=== PATIENT | female | born 1940 | race Caucasian/White ===

== ENCOUNTER → 2025-05-02 | Outpatient (REF) | payer MEDICARE, SELFPAY ==
[2025-05-02 08:34] LABS: Hematocrit 28.5 % (37-47); Hemoglobin 9.5 g/dL (12.0-15.0); Mean Corp Hgb Conc 33.3 g/dL (32-36); Mean Corpuscular Volume 100.7 fL (81-99); Mean Platelet Vol. 9.1 fl (6.2-12.0); Platelet Count 344 K/mm3 (150-450); RBC Distribution Width CV 16.5 % (11.6-14.6); RBC Distribution Width SD 58.8 fl (35.1-43.9); Red Blood Count 2.83 M/mm3 (4.2-5.4); White Blood Count 7.5 K/mm3 (4.4-11.0)
[2025-05-02 08:50] LABS: Anion Gap 13 (5-15); BUN 16 mg/dL (4-19); BUN/Creat Ratio 38.6 RATIO (10-20); Calcium,Total 9.6 mg/dL (7.6-11.0); Carbon Dioxide 20.1 mmol/L (21.0-32.0); Chloride 97 mmol/L (98-108); Glucose 89 mg/dL (70-99); Potassium 3.6 mmol/L (3.3-5.1)
== END ==
LOC: OLS.SANC 06:15
DX: I10 Essential (primary) hypertension (principal); E78.5 Hyperlipidemia, unspecified
CPT/HCPCS: 36415; 80048; 85027

== ENCOUNTER → 2025-05-05 | Outpatient (REF) | payer MEDICARE, SELFPAY ==
--- OUTSIDE RECORDS SUMMARY | 2025-05-05 04:18 | XMS RPT_ITS | CCD ---
Author Organization [place] [facility] Care Team Providers Care Digital Media Manager Name Role Phone Anni BRANHAM Piyushyonatan Attending Unavail able Results Test Name Value Interpretation Reference Range Facil ity Basic Metabolic Profile (BMP )on 05-02-2025 BUN/CRE 38.6 RATIO High 10-20 [facility] Comment on above: Performed By: #### L 500.2500, L100.0500 #### [facility] [address] [place], [address] Calcium [Mass/Vol] 9.6 mg/dL Normal 7.6-11.0 [facility] Comment on above: Performed By: #### L 500.2500, L100.0500 #### [facility] [address] [place], [address] Chloride [Moles/Vol] 97 mmol/L Low 98-108 [facility] Comment on above: Performed By: #### L 500.2500, L100.0500 #### [facility] [address] [place], [address] CO2 [Moles/Vol] 20.1 mmol/L Low 21.0-32.0 [facility] Comment on above: Performed By: #### L 500.2500, L100.0500 #### [facility] [address] [place], [address] Creatinine [Mass/Vol] 0.40 mg/dL Low 0.70-1.20 [facility] Comment on above: Performed By: #### L 500.2500, L100.0500 #### [facility] [address] [place], [address] GAP 13 Normal 5-15 [facility] Comment on above: Performed By: #### L 500.2500, L100.0500 #### [facility] [address] [place], [address] GFR/1.73 sq M.predicted among non-blacks MDRD (S/P/Bld) [Vol rate/Area] 98 mL/min/{1.73_m2} Normal >60 [facility] Comment on above: Result Comment: mL/m in/1.73m2 CKD-EPI Creatinine Equation (2020) Performed By: #### L 500.2500, L100.0500 #### [facility] [address] [place], [address] Glucose [Mass/Vol] 89 mg/dL Normal 70-99 [facility] Comment on above: Performed By: #### L 500.2500, L100.0500 #### [facility] [address] [place], [address] Potassium [Moles/Vol] 3.6 mmol/L Normal 3.3-5.1 [facility] Comment on above: Result Comment: Hemo lysis present, Results??could be affected. ?? Performed By: #### L 500.2500, L100.0500 #### [facility] [address] [place], [address] Sodium [Moles/Vol] 130 mmol/L Low 133-145 [facility] Comment on above: Performed By: #### L 500.2500, L100.0500 #### [facility] [address] [place], [address] Urea nitrogen [Mass/Vol] 16 mg/dL Normal 4-19 [facility] Comment on above: Performed By: #### L 500.2500, L100.0500 #### [facility] [address] [place], [address] CBC-Complete Blood Cnt No Di ffon 05-02-2025 Erythrocyte distribution width (RBC) [Ratio] 16.5 % High 11.6-14.6 [facility] Comment on above: Performed By: #### L 500.2500, L100.0500 #### [facility] [address] [place], [address] Hematocrit (Bld) [Volume fraction] 28.5 % Low 37-47 [facility] Comment on above: Performed By: #### L 500.2500, L100.0500 #### [facility] [address] [place], [address] Hemoglobin (Bld) [Mass/Vol] 9.5 g/dL Low 12.0-15.0 [facility] Comment on above: Performed By: #### L 500.2500, L100.0500 #### [facility] [address] [place], [address] MCH (RBC) [Entitic mass] 33.6 pg High 27.0-32.0 [facility] Comment on above: Performed By: #### L 500.2500, L100.0500 #### [facility] [address] [place], [address] MCHC (RBC) [Mass/Vol] 33.3 g/dL Normal 32-36 [facility] Comment on above: Performed By: #### L 500.2500, L100.0500 #### [facility] [address] [place], [address] MCV (RBC) [Entitic vol] 100.7 fL High 81-99 [facility] Comment on above: Performed By: #### L 500.2500, L100.0500 #### [facility] [address] [place], [address] Platelet mean volume (Bld) [Entitic vol] 9.1 fL Normal 6.2-12.0 [facility] Comment on above: Performed By: #### L 500.2500, L100.0500 #### [facility] [address] [place], [address] Platelets (Bld) [#/Vol] 344 10*3/uL Normal 150-450 [facility] Comment on above: Performed By: #### L 500.2500, L100.0500 #### [facility] [address] [place], [address] RBC (Bld) [#/Vol] 2.83 10*6/uL Low 4.2-5.4 [facility] Comment on above: Performed By: #### L 500.2500, L100.0500 #### [facility] [address] [place], [address] RDW SD 58.8 fl High 35.1-43.9 [facility] Comment on above: Performed By: #### L 500.2500, L100.0500 #### [facility] [address] [place], [address] WBC (Bld) [#/Vol] 7.5 10*3/uL Normal 4.4-11.0 [facility] Comment on above: Performed By: #### L 500.2500, L100.0500 #### [facility] [address] [place], [address] Encounters Encounter Date Encounter Type Care Provider Facility Start: 05-02-2025 [facility] Facility:[facility] Payers Date Payer Category Payer Self-pay Summary Purpose Family History No Family History Records Found Advance Directives No Advanced Directives Records Found Additional Source Comments INFORMATION SOURCE (unrecogn ized section and content) DATE CREATED AUTHOR 05/03/[address] [facility] FOR RECORDS PERTAINING TO PATIENTS WHO ARE OR HAVE BEEN ENROLLED IN A CHEMICAL DEPENDENCY/SUBSTANCEABUSE PROGRAM, SOME INFORMATION MAY BE OMITTED. This clinical summary was aggregated from multiple sources. Caution should be exercised in using it in the provision of clinical care. This summary normalizes information from multiple sources, and as a consequence, information in this document may materially change the coding, format and clinical context of patient data. In addition, data may be omitted in some cases. CLINICAL DECISIONS SHOULD BE BASED ON THE PRIMARY CLINICAL RECORDS. [facility] [employer] [facility]. provides no warranty or guarantee of the accuracy or completeness of information in this document.
--- OUTSIDE RECORDS SUMMARY | 2025-05-05 04:18 | XMS RPT_ITS | CCD ---
Author Organization [place] [facility] [facility] Care Team Providers Care Mobile Practice Lead Name Role Phone Anni BRANHAM Piyushyonatan Attending Unavail able Results Test Name Value Interpretation Reference Range Facil ity Basic Metabolic Profile (BMP )on 05-02-2025 BUN/CRE 38.6 RATIO High 10-20 [facility] Comment on above: Performed By: #### L 500.2500, L100.0500 #### [facility] [address] [place], [address] Calcium [Mass/Vol] 9.6 mg/dL Normal 7.6-11.0 [facility] Comment on above: Performed By: #### L 500.2500, L100.0500 #### [facility] [address] [place], [address] Chloride [Moles/Vol] 97 mmol/L Low 98-108 [facility] Comment on above: Performed By: #### L 500.2500, L100.0500 #### [facility] [address] [place], [address] CO2 [Moles/Vol] 20.1 mmol/L Low 21.0-32.0 [facility] Comment on above: Performed By: #### L 500.2500, L100.0500 #### [facility] [address] [place], [address] Creatinine [Mass/Vol] 0.40 mg/dL Low 0.70-1.20 [facility] Comment on above: Performed By: #### L 500.2500, L100.0500 #### [facility] [address] [place], [address] GAP 13 Normal 5-15 [facility] Comment on above: Performed By: #### L 500.2500, L100.0500 #### [facility] [address] [place], [address] GFR/1.73 sq M.predicted among non-blacks MDRD (S/P/Bld) [Vol rate/Area] 98 mL/min/{1.73_m2} Normal >60 [facility] Comment on above: Result Comment: mL/m in/1.73m2 CKD-EPI Creatinine Equation (2020) Performed By: #### L 500.2500, L100.0500 #### [facility] [address] [place], [address] Glucose [Mass/Vol] 89 mg/dL Normal 70-99 [facility] Comment on above: Performed By: #### L 500.2500, L100.0500 #### [facility] [address] [place], [address] Potassium [Moles/Vol] 3.6 mmol/L Normal 3.3-5.1 [facility] Comment on above: Result Comment: Hemo lysis present, Results??could be affected. ?? Performed By: #### L 500.2500, L100.0500 #### [facility] [address] [place], [address] Sodium [Moles/Vol] 130 mmol/L Low 133-145 [facility] Comment on above: Performed By: #### L 500.2500, L100.0500 #### [facility] [address] [place], [address] Urea nitrogen [Mass/Vol] 16 mg/dL Normal 4-19 [facility] Comment on above: Performed By: #### L 500.2500, L100.0500 #### [facility] [address] [place], [address] CBC-Complete Blood Cnt No Di ffon 05-02-2025 Erythrocyte distribution width (RBC) [Ratio] 16.5 % High 11.6-14.6 [facility] Comment on above: Performed By: #### L 500.2500, L100.0500 #### [facility] [address] [place], [address] Hematocrit (Bld) [Volume fraction] 28.5 % Low 37-47 [facility] Comment on above: Performed By: #### L 500.2500, L100.0500 #### [facility] [address] [place], [address] Hemoglobin (Bld) [Mass/Vol] 9.5 g/dL Low 12.0-15.0 [facility] Comment on above: Performed By: #### L 500.2500, L100.0500 #### [facility] [address] [place], [address] MCH (RBC) [Entitic mass] 33.6 pg High 27.0-32.0 [facility] Comment on above: Performed By: #### L 500.2500, L100.0500 #### [facility] [address] [place], [address] MCHC (RBC) [Mass/Vol] 33.3 g/dL Normal 32-36 [facility] Comment on above: Performed By: #### L 500.2500, L100.0500 #### [facility] [address] [place], [address] MCV (RBC) [Entitic vol] 100.7 fL High 81-99 [facility] Comment on above: Performed By: #### L 500.2500, L100.0500 #### [facility] [address] [place], [address] Platelet mean volume (Bld) [Entitic vol] 9.1 fL Normal 6.2-12.0 [facility] Comment on above: Performed By: #### L 500.2500, L100.0500 #### [facility] [address] [place], [address] Platelets (Bld) [#/Vol] 344 10*3/uL Normal 150-450 [facility] Comment on above: Performed By: #### L 500.2500, L100.0500 #### [facility] [address] [place], [address] RBC (Bld) [#/Vol] 2.83 10*6/uL Low 4.2-5.4 [facility] Comment on above: Performed By: #### L 500.2500, L100.0500 #### [facility] [address] [place], [address] RDW SD 58.8 fl High 35.1-43.9 [facility] Comment on above: Performed By: #### L 500.2500, L100.0500 #### [facility] [address] [place], [address] WBC (Bld) [#/Vol] 7.5 10*3/uL Normal 4.4-11.0 [facility] Comment on above: Performed By: #### L 500.2500, L100.0500 #### [facility] [address] [place], [address] Encounters Encounter Date Encounter Type Care Provider Facility Start: 05-02-2025 [facility] Facility:[facility] Payers Date Payer Category Payer Self-pay Summary Purpose Family History No Family History Records Found Advance Directives No Advanced Directives Records Found Additional Source Comments INFORMATION SOURCE (unrecogn ized section and content) DATE CREATED AUTHOR 05/03/2025 [facility] FOR RECORDS PERTAINING TO PATIENTS WHO [...] BE BASED ON THE PRIMARY CLINICAL RECORDS. [facility] [facility] provides no warranty or guarantee of the accuracy or completeness of information in this document.
[2025-05-05 09:46] LABS: Pro- Brain NATRIURETIC PEPTIDE 1791 pg/mL (<=1800)
== END ==
LOC: OLS.SANC 04:00
DX: I10 Essential (primary) hypertension (principal); E78.5 Hyperlipidemia, unspecified; Z79.899 Other long term (current) drug therapy
CPT/HCPCS: 36415; 80185; 83880

== ENCOUNTER → 2025-05-09 | Outpatient (REF) | payer MEDICARE, SELFPAY ==
--- OUTSIDE RECORDS SUMMARY | 2025-05-09 04:29 | XMS RPT_ITS | CCD ---
Author Organization [facility] Care Team Providers Care Billiard Table Repairer Name Role Phone Enedina Choi Attending Unavail able Enedina Choi Attending Unavail able Results Test Name Value Interpretation Reference Range Facil ity Phenytoin (Dilantin) Levelon 05-05-2025 Phenytoin [Mass/Vol] 25.6 ug/mL High 10.0-20.0 [facility] Comment on above: Order Comment: 203.1 0000 Result Comment: Toxi c signs are seldom seen below 15 ug/mL, while nystagmus often appears when serum levels rise above 20 ug/mL. Ataxia is observed most often when serum levels reach 25 to 30 ug/mL and somnolence and dysarthria above 40 ug/mL. At high doses, phenytoin can even cause an increase in the frequency of seizures. Performed By: #### L 503.7505, L501.7700 #### [facility] [address] [place], [place], [id number] Pro- Brain NATRIURETIC PEPTI Chan 05-05-2025 Natriuretic peptide B (Bld) [Mass/Vol] 1791 pg/mL Normal <=1800 [facility] Comment on above: Order Comment: 203.1 Result Comment: Hear t Failure Unlikely: < 300 pg/mL Heart Failure Likely < 50 Years: > 450 pg/mL 50-75 Years: > 900 pg/mL >75 Years: > 1800 pg/mL Performed By: #### L 503.7505, L501.7700 #### [facility] [address] [place], [place], [id number] Basic Metabolic Profile (BMP )on 05-02-2025 BUN/CRE 38.6 RATIO High 10-20 [facility] Comment on above: Performed By: #### L 500.2500, L100.0500 #### [facility] [address] [place], [address] Calcium [Mass/Vol] 9.6 mg/dL Normal 7.6-11.0 [facility] Comment on above: Performed By: #### L 500.2500, L100.0500 #### [facility] [address] [place], [address] Chloride [Moles/Vol] 97 mmol/L Low 98-108 [facility] Comment on above: Performed By: #### L 500.2500, L100.0500 #### [facility] [address] [place], [address] CO2 [Moles/Vol] 20.1 mmol/L Low 21.0-32.0 [facility] Comment on above: Performed By: #### L 500.2500, L100.0500 #### [facility] [address] [place], [address] Creatinine [Mass/Vol] 0.40 mg/dL Low 0.70-1.20 [facility] Comment on above: Performed By: #### L 500.2500, L100.0500 #### [facility] [address] [place], [address] GAP 13 Normal 5-15 [facility] Comment on above: Performed By: #### L 500.2500, L100.0500 #### [facility] [address] [place], [address] GFR/1.73 sq M.predicted among non-blacks MDRD (S/P/Bld) [Vol rate/Area] 98 mL/min/{1.73_m2} Normal >60 [facility] Comment on above: Result Comment: mL/m in/1.73m2 CKD-EPI Creatinine Equation (2020) Performed By: #### L 500.2500, L100.0500 #### [facility] [address] [place], [address] Glucose [Mass/Vol] 89 mg/dL Normal 70-99 [facility] Comment on above: Performed By: #### L 500.2500, L100.0500 #### [facility] [address] [place], [address] Potassium [Moles/Vol] 3.6 mmol/L Normal 3.3-5.1 [facility] Comment on above: Result Comment: Hemo lysis present, Results??could be affected. ?? Performed By: #### L 500.2500, L100.0500 #### [facility] [address] [place], [address] Sodium [Moles/Vol] 130 mmol/L Low 133-145 [facility] Comment on above: Performed By: #### L 500.2500, L100.0500 #### [facility] [address] [place], [address] Urea nitrogen [Mass/Vol] 16 mg/dL Normal 4-19 [facility] Comment on above: Performed By: #### L 500.2500, L100.0500 #### [facility] [address] [place], [address] CBC-Complete Blood Cnt No Di ffon 05-02-2025 Erythrocyte distribution width (RBC) [Ratio] 16.5 % High 11.6-14.6 [facility] Comment on above: Performed By: #### L 500.2500, L100.0500 #### [facility] [address] [place], [address] Hematocrit (Bld) [Volume fraction] 28.5 % Low 37-47 [facility] Comment on above: Performed By: #### L 500.2500, L100.0500 #### [facility] [address] [place], [address] Hemoglobin (Bld) [Mass/Vol] 9.5 g/dL Low 12.0-15.0 [facility] Comment on above: Performed By: #### L 500.2500, L100.0500 #### [facility] [address] [place], [address] MCH (RBC) [Entitic mass] 33.6 pg High 27.0-32.0 [facility] Comment on above: Performed By: #### L 500.2500, L100.0500 #### [facility] [address] [place], [address] MCHC (RBC) [Mass/Vol] 33.3 g/dL Normal 32-36 [facility] Comment on above: Performed By: #### L 500.2500, L100.0500 #### [facility] [address] [place], [address] MCV (RBC) [Entitic vol] 100.7 fL High 81-99 [facility] Comment on above: Performed By: #### L 500.2500, L100.0500 #### [facility] [address] [place], [address] Platelet mean volume (Bld) [Entitic vol] 9.1 fL Normal 6.2-12.0 [facility] Comment on above: Performed By: #### L 500.2500, L100.0500 #### [facility] [address] [place], [address] Platelets (Bld) [#/Vol] 344 10*3/uL Normal 150-450 [facility] Comment on above: Performed By: #### L 500.2500, L100.0500 #### [facility] [address] [place], [address] RBC (Bld) [#/Vol] 2.83 10*6/uL Low 4.2-5.4 [facility] Comment on above: Performed By: #### L 500.2500, L100.0500 #### [facility] [address] [place], [address] RDW SD 58.8 fl High 35.1-43.9 [facility] Comment on above: Performed By: #### L 500.2500, L100.0500 #### [facility] [address] [place], [address] WBC (Bld) [#/Vol] 7.5 10*3/uL Normal 4.4-11.0 [facility] Comment on above: Performed By: #### L 500.2500, L100.0500 #### [facility] [address] [place], [address] Encounters Encounter Date Encounter Type Care Provider Facility Start: 05-05-2025 [facility] Facility:[facility] Start: 05-02-2025 [facility] Facility:[facility] Payers Date Payer Category Payer Self-pay Summary Purpose Family History No Family History Records Found Advance Directives No Advanced Directives Records Found Additional Source Comments INFORMATION SOURCE (unrecogn ized section and content) DATE CREATED AUTHOR 05/05/2025 [facility] FOR RECORDS PERTAINING TO PATIENTS WHO ARE [...] BE BASED ON THE PRIMARY CLINICAL RECORDS. [employer] provides no warranty or guarantee of the accuracy or completeness of information in this document.
--- OUTSIDE RECORDS SUMMARY | 2025-05-09 04:29 | XMS RPT_ITS | CCD ---
Author Organization [facility] Care Team Providers Care Sales Financial Analyst Name Role Phone Enedina Choi Attending Unavail able Enedina Choi Attending Unavail able Results Test Name Value Interpretation Reference Range Facil ity Phenytoin (Dilantin) Levelon 05-05-2025 Phenytoin [Mass/Vol] 25.6 ug/mL High 10.0-20.0 [facility] Comment on above: Order Comment: 203.1 0000 [...] Performed By: #### L 503.7505, L501.7700 #### [facility] [address] [place], [place], [id number] Pro- Brain NATRIURETIC PEPTI Chan 05-05-2025 Natriuretic peptide B (Bld) [Mass/Vol] 1791 pg/mL Normal <=1800 [facility] Comment on above: Order Comment: 203.1 Result Comment: Hear t Failure Unlikely: < 300 pg/mL Heart Failure Likely < 50 Years: > 450 pg/mL 50-75 Years: > 900 pg/mL >75 Years: > 1800 pg/mL Performed By: #### L 503.7505, L501.7700 #### [facility] [address] [place], [place], [id number] Basic Metabolic Profile (BMP )on 05-02-2025 BUN/CRE 38.6 RATIO High 10-20 [facility] Comment on above: Performed By: #### L 500.2500, L100.0500 #### [facility] [address] [place], [address] Calcium [Mass/Vol] 9.6 mg/dL Normal 7.6-11.0 [facility] Comment on above: Performed By: #### L 500.2500, L100.0500 #### [facility] [address] [place], [address] Chloride [Moles/Vol] 97 mmol/L Low 98-108 [facility] Comment on above: Performed By: #### L 500.2500, L100.0500 #### [facility] [address] [place], [address] CO2 [Moles/Vol] 20.1 mmol/L Low 21.0-32.0 [facility] Comment on above: Performed By: #### L 500.2500, L100.0500 #### [facility] [address] [place], [address] Creatinine [Mass/Vol] 0.40 mg/dL Low 0.70-1.20 [facility] Comment on above: Performed By: #### L 500.2500, L100.0500 #### [facility] [address] [place], [address] GAP 13 Normal 5-15 [facility] Comment on above: Performed By: #### L 500.2500, L100.0500 #### [facility] [address] [place], [address] GFR/1.73 sq M.predicted among non-blacks MDRD (S/P/Bld) [Vol rate/Area] 98 mL/min/{1.73_m2} Normal >60 [facility] Comment on above: Result Comment: mL/m in/1.73m2 CKD-EPI Creatinine Equation (2020) Performed By: #### L 500.2500, L100.0500 #### [facility] [address] [place], [address] Glucose [Mass/Vol] 89 mg/dL Normal 70-99 [facility] Comment on above: Performed By: #### L 500.2500, L100.0500 #### [facility] [address] [place], [address] Potassium [Moles/Vol] 3.6 mmol/L Normal 3.3-5.1 [facility] Comment on above: Result Comment: Hemo lysis present, Results??could be affected. ?? Performed By: #### L 500.2500, L100.0500 #### [facility] [address] [place], [address] Sodium [Moles/Vol] 130 mmol/L Low 133-145 [facility] Comment on above: Performed By: #### L 500.2500, L100.0500 #### [facility] [address] [place], [address] Urea nitrogen [Mass/Vol] 16 mg/dL Normal 4-19 [facility] Comment on above: Performed By: #### L 500.2500, L100.0500 #### [facility] [address] [place], [address] CBC-Complete Blood Cnt No Di ffon 05-02-2025 Erythrocyte distribution width (RBC) [Ratio] 16.5 % High 11.6-14.6 [facility] Comment on above: Performed By: #### L 500.2500, L100.0500 #### [facility] [address] [place], [address] Hematocrit (Bld) [Volume fraction] 28.5 % Low 37-47 [facility] Comment on above: Performed By: #### L 500.2500, L100.0500 #### [facility] [address] [place], [address] Hemoglobin (Bld) [Mass/Vol] 9.5 g/dL Low 12.0-15.0 [facility] Comment on above: Performed By: #### L 500.2500, L100.0500 #### [facility] [address] [place], [address] MCH (RBC) [Entitic mass] 33.6 pg High 27.0-32.0 [facility] Comment on above: Performed By: #### L 500.2500, L100.0500 #### [facility] [address] [place], [address] MCHC (RBC) [Mass/Vol] 33.3 g/dL Normal 32-36 [facility] Comment on above: Performed By: #### L 500.2500, L100.0500 #### [facility] [address] [place], [address] MCV (RBC) [Entitic vol] 100.7 fL High 81-99 [facility] Comment on above: Performed By: #### L 500.2500, L100.0500 #### [facility] [address] [place], [address] Platelet mean volume (Bld) [Entitic vol] 9.1 fL Normal 6.2-12.0 [facility] Comment on above: Performed By: #### L 500.2500, L100.0500 #### [facility] [address] [place], [address] Platelets (Bld) [#/Vol] 344 10*3/uL Normal 150-450 [facility] Comment on above: Performed By: #### L 500.2500, L100.0500 #### [facility] [address] [place], [address] RBC (Bld) [#/Vol] 2.83 10*6/uL Low 4.2-5.4 [facility] Comment on above: Performed By: #### L 500.2500, L100.0500 #### [facility] [address] [place], [address] RDW SD 58.8 fl High 35.1-43.9 [facility] Comment on above: Performed By: #### L 500.2500, L100.0500 #### [facility] [address] [place], [address] WBC (Bld) [#/Vol] 7.5 10*3/uL Normal 4.4-11.0 [facility] Comment on above: Performed By: #### L 500.2500, L100.0500 #### [facility] [address] [place], [address] Encounters Encounter Date Encounter Type Care Provider Facility Start: 05-05-2025 [facility] Start: 05-02-2025 [facility] Payers Date Payer Category Payer Self-pay Summary Purpose Family History No Family History Records Found Advance Directives No Advanced Directives Records Found Additional Source Comments INFORMATION SOURCE (unrecogn ized section and content) DATE CREATED AUTHOR 05/05/2025 [facility] FOR RECORDS PERTAINING TO PATIENTS WHO ARE [...] BE BASED ON THE PRIMARY CLINICAL RECORDS. [employer] provides no warranty or guarantee of the accuracy or completeness of information in this document.
[2025-05-09 07:50] LABS: Hematocrit 33.7 % (37-47); Hemoglobin 11.3 g/dL (12.0-15.0); Immature Granulocytes Count 0.030 X10^3/uL (0.0-0.0); Mean Corp Hgb Conc 33.5 g/dL (32-36); Mean Corpuscular Volume 104.7 fL (81-99); Mean Platelet Vol. 9.3 fl (6.2-12.0); NRBC Flagged by Analyzer 0 % (0-5); POSITIVE MORPHOLOGY YES; Platelet Count 222 K/mm3 (150-450); RBC Distribution Width CV 18.4 % (11.6-14.6); RBC Distribution Width SD 69.2 fl (35.1-43.9); Red Blood Count 3.22 M/mm3 (4.2-5.4); White Blood Count 5.6 K/mm3 (4.4-11.0)
[2025-05-09 07:56] LABS: Differential Indicated SCAN CRITERIA MET
[2025-05-09 08:20] LABS: Anisocytosis 1+
[2025-05-09 08:33] LABS: Anion Gap 10 (5-15); BUN 11 mg/dL (4-19); BUN/Creat Ratio 28.0 RATIO (10-20); Calcium,Total 9.6 mg/dL (7.6-11.0); Carbon Dioxide 25.9 mmol/L (21.0-32.0); Chloride 98 mmol/L (98-108); Glucose 102 mg/dL (70-99); Potassium 3.7 mmol/L (3.3-5.1)
== END ==
LOC: OLS.SANC 05:00
PROVIDERS: Visit Provider Internal Medicine
DX: I10 Essential (primary) hypertension (principal); E78.5 Hyperlipidemia, unspecified
CPT/HCPCS: 36415; 80048; 85025

== ENCOUNTER → 2025-05-19 | Outpatient (REF) | payer MEDICARE, SELFPAY ==
--- OUTSIDE RECORDS SUMMARY | 2025-05-19 04:25 | XMS RPT_ITS | CCD ---
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 Chemist Name Role Phone Destiny Jean Baptiste Primary Care Provider [phone] Christian Harrison Primary Care Provider Christy NEWSPAPER OR PERIODICAL EDITOR, Christian Elliott Primary Care Provider [phone] Christy NEWSPAPER OR PERIODICAL EDITOR, Christian Elliott Primary Care Provider Enedina Choi Attending Unavail able Blancaa Enedina BRANHAM Referring Unavail able Enedina Choi Attending Unavail able nAni BRANHAM, Enedina Primary Care Unavail able Sebas Guerra Attending Unavailable JANNETH CENTENO Consulting Unavailable CHRISTY, CHRISTIAN Primary Care Unavailable CHAZ SMYTH Attending Unavailable MILLER LEE Admitting Unavailable BRENDON SOMMERS Consulting Unavailable DESTINY VELASQUEZ Consulting Unavailable ULMA GASTELUM Consulting Unavailable CHRISTY, CHRISTIAN Primary Care Unavailable NGUYỄN CAAL Attending Unavailable CHRISTY, CHRISTIAN Primary Care Unavailable HERON GLOVER Attending Unavailable NEMO BUNN Admitting Unavailable CHRISTY, CHRISTIAN Primary Care Unavailable BRENDON SOMMERS Attending Unavailable NGUYỄN CAAL Referring Unavailable CHRIS MOLINA Attending Unavailable CHRISTY, CHRISTIAN Primary Care Unavailable BRENDON SOMMERS Referring Unavailable CHRISTY, CHRISTIAN Primary Care Unavailable BRENDON SOMMERS Attending Unavailable BRENDON SOMMERS Referring Unavailable CHRISTY, CHRISTIAN Primary Care Unavailable BRENDON SOMMERS Attending Unavailable BRENDON SOMMERS Referring Unavailable CHRISTY, CHRISTIAN Primary Care Unavailable BRENDON SOMMERS Attending Unavailable BRENDON SOMMERS Referring Unavailable CHRISTY, CHRISTIAN Primary Care Unavailable BRENDON SOMMERS Attending Unavailable BRENDON SOMMERS Referring Unavailable CHRISTY, CHRISTIAN Primary Care Unavailable BRENDON SOMMERS Attending Unavailable CAMILO PUGA Referring Unavailable CHRISTY, CHRISTIAN Primary Care Unavailable CHRIS MOLINA Referring Unavailable CHRISTY, CHRISTIAN Primary [facility] Unavailable KRUPA CID Referring Unavailable KRUPA CID Attending Unavailable CHRISTIAN HARRISON Primary Care Unavailable BRENDON SOMMERS Referring Unavailable CHRISTIAN HARRISON Primary Care Unavailable BRENDON SOMMERS Attending Unavailable Allergies Allergy Classification Reported Allergen(s) Allergy Type Date of Onset Reaction(s) Facility Bee/Wasp/Ant Venom (1 source) bee venom Substance Allergy 8 Anaphylaxis [facility] Lidocaine (1 source) Lidocaine Drug Allergy 8 Shortness of breath [facility] Penicillins (antibiotic) (1 source) Penicillins Drug Allergy 8 Nausea Only [facility] Sulfonamides (antibiotic) (1 source) Sulfonamides (Antibiotic) Drug Allergy 8 Nausea Only [facility] (20 sources) bee venom Propensity to adverse reactions 8 Anaphylaxis [facility] (20 sources) Lidocaine Drug Allergy 8 Shortness of breath [facility] (20 sources) Penicillins Drug Intolerance 8 Nausea Only [facility] (20 sources) Sulfonamides (Antibiotic) Drug Intolerance 8 Nausea Only [facility] (14 sources) Penicillin G Drug Allergy 5 Rash [facility] (14 sources) Simvastatin Allergy to substance 5 Rash [facility] (14 sources) varenicline Drug Allergy 5 Nausea And Vomiting [facility] Medications Current Medications Medication Drug Class(es) Dates Sig (Normalized) Sig (Original) alendronic acid 70 mg oral tablet (3 sources) Bisphosphonate Start: 11-06-2024 alendronate (Fosamax) 70 MG tablet Take 1 tablet by mouth every 7 days. 11/06/2024 Active 0.4 ml enoxaparin sodium 100 mg/ml prefilled syringe (15 sources) Low Molecular Weight Heparin Start: 05-17-2025 inject 0.4 mL by subcutaneous injection every twenty-four hours enoxaparin (Lovenox) 40 MG/0.4ML solution prefilled syringe Indications: Prophylaxis of Venous Thromboembolism Inject 0.4 mL (40 mg) under the skin every 24 hours. 05/17/2025 Active Start: 05-17-2025 inject 0.4 mL by sub cutaneous injection every twenty-four hours enoxaparin (Lovenox) 40 MG/0.4ML solution prefilled syringe Indications: Prophylaxis of Venous Thromboembolism Inject 0.4 mL (40 mg) under the skin every 24 hours. 05/17/2025 Active Start: 05-10-2025 End: 2025 inject 40 mg by subcutaneous injection every twenty-four hours 40 mg, SubCUTAneous, Every 24 hours scheduled (Daily), First dose on 05/10/25 at 1910, Indication of Use: Prophylaxis-DVT/PE, Indications: Prophylaxis of Venous Thromboembolism Start: 04-28-2025 End: 05-28-2025 inject 0.3 mL by subcutaneous injection every twelve hours enoxaparin (Lovenox) 30 MG/0.3ML solution prefilled syringe Indications: Prophylaxis of Venous Thromboembolism Inject 0.3 mL (30 mg) under the skin every 12 hours. 04/28/2025 05/10/2025 Discontinued (Therapy completed) Start: 04-23-2025 End: 04-30-2025 inject 30 mg by subcutaneous injection every twelve hours 30 mg, SubCUTAneous, Every 12 hours, First dose on Mon04/23/25 at 1045, Indication of Use: Prophylaxis-DVT/PE, Indications: Prophylaxis of Venous Thromboembolism ergocalciferol 1.25 mg oral capsule (12 sources) Provitamin D2 Compound Start: 05-04-2025 take 1 capsule by mouth every week ergocalciferol (Vitamin D2) 1.25 MG (48114 UT) capsule Take 1 capsule (1.25 mg) by mouth 1 (one) time per week. 05/04/2025 Active Start: 05-04-2025 take 1 capsule by mo uth every week ergocalciferol (Vitamin D2) 1.25 MG (47163 UT) capsule Take 1 capsule (1.25 mg) by mouth 1 (one) time per week. 05/04/2025 Active Start: 05-04-2025 take 1 capsule by mo uth every week ergocalciferol (Vitamin D2) 1.25 MG (55921 UT) capsule Take 1 capsule (1.25 mg) by mouth 1 (one) time per week. 05/04/2025 Active Start: 05-04-2025 take 1 capsule by mo uth every week ergocalciferol (Vitamin D2) 1.25 MG (50199 UT) capsule Take 1 capsule (1.25 mg) by mouth 1 (one) time per week. 05/04/2025 Active Start: 05-04-2025 take 1 capsule by mo uth every week ergocalciferol (Vitamin D2) 1.25 MG (75914 UT) capsule Take 1 capsule (1.25 mg) by mouth 1 (one) time per week. 05/04/2025 Active Start: 04-27-2025 End: 04-30-2025 take 1.25 mg by mouth every week 1.25 mg, Oral, Weekly, First dose on 04/27/25 at 0900 Completed/Discontinued Medications Medication Drug Class(es) Dates Sig (Normalized) Sig (Original) Acetaminophen (20 sources) Start: 05-10-2025 End: 2025 take 1 tablet by mouth every six hours as needed for pain and fever acetaminophen (Tylenol) tablet 650 mg Start: 04-21-2025 End: 04-30-2025 1,000 mg, Oral, 3 times riaz y, First dose (after last modification) on Jaz 04/24/25 at 1400, Phase II/On Unit, If inadequate response within 60 minutes, proceed to next-line agent for same PRN reason or contact provider if no further options ordered. Start: 07-15-2024 take 2 tablets by mo uth every six hours as needed for pain acetaminophen (Tylenol) 500 MG tablet Take 2 tablets (1,000 mg) by mouth every 6 hours as needed for mild pain (1-3). 30 tablet 07/15/2024 Active Aspirin (20 sources) Platelet Aggregation Inhibitor, Nonsteroidal Anti-inflammatory Drug Start: 05-10-2025 End: 2025 aspirin EC tablet 81 mg Start: 08-07-2018 aspirin 81 MG chewable tablet Chew 1 tablet 2 times daily. 08/07/2018 Active Start: 08-07-2018 End: 04-30-2025 aspirin 81 MG chewable table t Chew 1 tablet in the morning. 08/07/2018 Active atorvastatin 40 mg oral tablet (2 sources) HMG-CoA Reductase Inhibitor Start: 05-10-2025 End: 2025 take 40 mg by mouth once daily 40 mg, Oral, Nightly, First dose on 05/10/25 at 2100 bisacodyl 10 mg rectal suppository (2 sources) Stimulant Laxative Start: 05-10-2025 End: 2025 take 10 mg rectal route every twenty-four hours as needed for constipation calcium chloride 0.0014 meq/ml / potassium chloride 0.004 meq/ml / sodium chloride 0.103 meq/ml / sodium lactate 0.028 meq/ml injectable solution (10 sources) Start: 04-24-2025 End: 04-25-2025 500 mL, IntraVENous, at 166.7 mL/hr, Administer over 3 Hours, Once, On Mon04/25/25 at 1345, For 1 dose Start: 04-22-2025 End: 04-22-2025 take 50 mL intravenously every hour 50 mL/hr, IntraVENous, Continuous, Starting on Mon04/22/25 at 0015, Recovery (only) Start: 04-21-2025 End: 04-22-2025 500 mL, IntraVENous, at 250 mL/hr, Administer over 2 Hours, Once, On Mon04/22/25 at 1130, For 1 dose ceFAZolin (Ancef) 2,000 mg in sodium chloride 0.9 % 100 mL IVPB (2 sources) Start: 04-21-2025 End: 04-22-2025 take 2000 mg intravenously every eight hours 2,000 mg, IntraVENous, at 200 mL/hr, Administer over 30 Minutes, Every 8 hours, First dose on Mon04/21/25 at 2230, For 24 hours, Phase II/On Unit, Mini-Bag Plus bag, Suspected Indication (Select all that apply): Surgical Prophylaxis docusate sodium 50 mg / sennosides, half-way 8.6 mg oral tablet (2 sources) Start: 04-21-2025 End: 04-30-2025 take 2 tablets by mouth twice daily 2 tablet, Oral, 2 times daily, First dose on Mon04/21/25 at 2100, Phase II/On Unit 1 ml ePHEDrine sulfate 50 mg/ml injection (6 sources) alpha-Adrenergic Agonist, beta-Adrenergic Agonist, Norepinephrine Releasing Agent Start: 04-21-2025 End: 04-21-2025 inject 25 mg by intramuscular injection once 25 mg, IntraMUSCular, Once, On Mon04/21/25 at 1730, For 1 dose, Recovery (only) Start: 04-21-2025 End: 04-21-2025 inject 25 mg by intramuscular injection once 25 mg, IntraMUSCular, Once, On Mon04/21/25 at 1730, For 1 dose, Recovery (only) Start: 04-21-2025 End: 04-21-2025 Starting on Mon04/21/25 at 17 20, For 1 dose, Valerie Flowersily: [email or web address] override Start: 04-21-2025 End: 04-21-2025 inject 25 mg by intramuscular injection once 25 mg, IntraMUSCular, Once, On Mon04/21/25 at 1615, For 1 dose, Recovery (only) [id number] 0.3 ml EPINEPHrine 1 mg/ml auto-injector (20 sources) alpha-Adrenergic Agonist, beta-Adrenergic Agonist, Catecholamine Start: 12-20-2022 End: 04-30-2025 EPINEPHrine (Epipen) 0.3 MG/0.3ML injection syringe inject 0.3 milliliters ( 0.3 milligrams ) intramuscularly in OUTE... (REFER TO PRESCRIPTION NOTES). 12/20/2022 04/30/2025 Discontinued (Stop taking at discharge) 2 ml fentaNYL 0.05 mg/ml injection (2 sources) Opioid Agonist Start: 04-21-2025 End: 04-21-2025 take 1 dose by mouth every hour 50 mcg, IntraVENous, Once, On Mon04/21/25 at 1025, For 1 dose, If oral and injectable narcotics ordered, use oral first and only use injectable if oral is ineffective or cannot take oral. Do Not give oral and injectable within 1 hour of each other unless specifically ordered. folic acid 1 mg oral tablet (2 sources) Start: 05-11-2025 End: 2025 take 1 mg by mouth once daily 1 mg, Oral, Daily, First dose on Mon05/11/25 at 1130 500 ml glucose 50 mg/ml / potassium chloride 0.02 meq/ml / sodium chloride 4.5 mg/ml injection (2 sources) Start: 04-22-2025 End: 04-23-2025 take 50 mL intravenously every hour 50 mL/hr, IntraVENous, Continuous, Starting on Mon04/22/25 at 2115 labetalol hydrochloride 5 mg/ml injectable solution (2 sources) beta-Adrenergic Marcellus Start: 05-10-2025 End: 2025 lisinopril 20 mg oral tablet (20 sources) Angiotensin Converting Enzyme Inhibitor Start: 10-26-2018 End: 05-10-2025 take 1 tablet by mouth in the morning lisinopril 20 MG tablet Take 1 tablet by mouth in the morning. 10/26/2018 04/30/2025 Discontinued (Stop taking at discharge) 100 ml magnesium sulfate 40 mg/ml injection (2 sources) Start: 04-24-2025 End: 04-24-2025 4,000 mg, IntraVENous, at 25 mL/hr, Administer over 4 Hours, Once, On Jaz 04/24/25 at 1100, For 1 dose, Recommended infusion rate not to exceed 1,000 mg (milligrams) per hour. melatonin 5 mg oral tablet (16 sources) Start: 04-21-2025 End: 2025 take 5 mg by mouth once daily 5 mg, Oral, Nightly, First dose on 05/10/25 at 2100 5 ml metoprolol tartrate 1 mg/ml injection (2 sources) beta-Adrenergic Marcellus Start: 04-23-2025 End: 04-23-2025 5 mg, IntraVENous, Once, On Mon04/23/25 at 1745, For 1 dose mupirocin 0.02 mg/mg topical ointment (2 sources) RNA Synthetase Inhibitor Antibacterial Start: 04-21-2025 End: 04-26-2025 Nasal, 2 times daily, First dose on Mon04/21/25 at 2100, For 5 days, Phase II/On Unit 1 ml naloxone hydrochloride 0.4 mg/ml injection (4 sources) Opioid Antagonist Start: 05-12-2025 End: 2025 0.4 mg, IntraVENous, Every 5 min PRN, opioid reversal, respiratory depression, Starting on Mon05/12/25 at 1348, +++ For RR Start: 04-21-2025 End: 04-30-2025 0.4 mg, IntraVENous, Every 5 min PRN, opioid reversal, respiratory depression, Starting on Mon04/21/25 at 1955, +++ For RR norepinephrine (Levophed) 4 mg in 0.9% sodium chloride 250 mL infusion ([id number]) (premix) (10 sources) Start: 04-24-2025 End: 04-25-2025 2-50 mcg/min (7.5-187.5 mL/hr), IntraVENous, Continuous, Starting on Jaz 04/24/25 at 0015, For 24 hours, If Titrate Infusion? is No: Disregard instructions below. If Titrate infusion? is Yes: If rate LESS than 10 mcg/min: Titrate by 2 mcg/min no faster than every 5 minutes to goal. If rate GREATER than or equal to 10 mcg/min: Titrate by 5 mcg/min no faster than every 5 minutes to goal. When approaching therapeutic goal or weaning off, smaller titration increments of 1 mcg/min no faster than every 5 minutes may be used to maintain goal., Titrate Infusion: Yes, Initial Infusion Dose: 5 mcg/min, Goal of Therapy is: MAP great than 65 mmHg, Contact Provider if: Patient is receiving the maximum dose and is not achieving the goal of therapy, If held outside of ordered parameters contact provider for further direction Start: 04-22-2025 End: 04-23-2025 2-50 mcg/min (7.5-187.5 mL/h r), IntraVENous, Continuous, Starting on Mon04/22/25 at 2115, For 24 hours, If Titrate Infusion? is No: Disregard instructions below. If Titrate infusion? is Yes: If rate LESS than 10 mcg/min: Titrate by 2 mcg/min no faster than every 5 minutes to goal. If rate GREATER than or equal to 10 mcg/min: Titrate by 5 mcg/min no faster than every 5 minutes to goal. When approaching therapeutic goal or weaning off, smaller titration increments of 1 mcg/min no faster than every 5 minutes may be used to maintain goal., Titrate Infusion: Yes, Initial Infusion Dose: 5 mcg/min, Goal of Therapy is: MAP great than 65 mmHg, Contact Provider if: Patient is receiving the maximum dose and is not achieving the goal of therapy, If held outside of ordered parameters contact provider for further direction Start: 04-22-2025 End: 04-22-2025 2-50 mcg/min (7.5-187.5 mL/h r), IntraVENous, Continuous, Starting on Mon04/22/25 at 1930, For 24 hours, If Titrate Infusion? is No: Disregard instructions below. If Titrate infusion? is Yes: If rate LESS than 10 mcg/min: Titrate by 2 mcg/min no faster than every 5 minutes to goal. If rate GREATER than or equal to 10 mcg/min: Titrate by 5 mcg/min no faster than every 5 minutes to goal. When approaching therapeutic goal or weaning off, smaller titration increments of 1 mcg/min no faster than every 5 minutes may be used to maintain goal., Titrate Infusion: Yes, Initial Infusion Dose: 5 mcg/min, Goal of Therapy is: MAP great than 65 mmHg, Contact Provider if: Patient is receiving the maximum dose and is not achieving the goal of therapy, If held outside of ordered parameters contact provider for further direction Start: 04-21-2025 End: 04-22-2025 2-50 mcg/min (7.5-187.5 mL/h r), IntraVENous, Continuous, Starting on Mon04/21/25 at 2100, For 24 hours, If Titrate Infusion? is No: Disregard instructions below. If Titrate infusion? is Yes: If rate LESS than 10 mcg/min: Titrate by 2 mcg/min no faster than every 5 minutes to goal. If rate GREATER than or equal to 10 mcg/min: Titrate by 5 mcg/min no faster than every 5 minutes to goal. When approaching therapeutic goal or weaning off, smaller titration increments of 1 mcg/min no faster than every 5 minutes may be used to maintain goal., Titrate Infusion: Yes, Initial Infusion Dose: 5 mcg/min, Goal of Therapy is: MAP great than 65 mmHg, Contact Provider if: Patient is receiving the maximum dose and is not achieving the goal of therapy, If held outside of ordered parameters contact provider for further direction Start: 04-21-2025 End: 04-21-2025 2-50 mcg/min (7.5-187.5 mL/h r), IntraVENous, Continuous, Starting on Mon04/21/25 at 1830, For 24 hours, Recovery (only), If Titrate Infusion? is No: Disregard instructions below. If Titrate infusion? is Yes: If rate LESS than 10 mcg/min: Titrate by 2 mcg/min no faster than every 5 minutes to goal. If rate GREATER than or equal to 10 mcg/min: Titrate by 5 mcg/min no faster than every 5 minutes to goal. When approaching therapeutic goal or weaning off, smaller titration increments of 1 mcg/min no faster than every 5 minutes may be used to maintain goal., Titrate Infusion: Yes, Initial Infusion Dose: 5 mcg/min, Goal of Therapy is: MAP great than 65 mmHg, Contact Provider if: Patient is receiving the maximum dose and is not achieving the goal of therapy, If held outside of ordered parameters contact provider for further direction ondansetron ODT (Zofran-ODT) disintegrating tablet 4 mg (2 sources) Start: 05-10-2025 End: 2025 take 1 tablet by mouth every eight hours as needed for nausea and vomiting ondansetron ODT (Zofran-ODT) disintegrating tablet 4 mg oxyCODONE hydrochloride 5 mg oral tablet (20 sources) Opioid Agonist Start: 04-22-2025 End: 04-30-2025 take 1 tablet by mouth every four hours as needed for pain oxyCODONE (Roxicodone) immediate release tablet 5 mg Start: 07-15-2024 End: 07-15-2024 take 5 mg by mouth once 5 mg, Oral, Once, On 10/07 at 1435, For 1 dose Start: 07-15-2024 End: 2025 take 1 tablet by mouth every six hours as needed for pain perflutren protein A microsphere (Optison) 3 mL in sodium chloride (PF) 0.9 % 10 mL IV (2 sources) Start: 04-21-2025 End: 04-30-2025 0-10 mL, IntraVENous, IMG once PRN, other, Suboptimal echo image, Starting on Mon04/21/25 at 1851, For 1 dose, CV Procedural Medications, Administer via slow IVP for suboptimal echocardiogram enhancement. May administer as divided doses to reach optimal image enhancement phenytoin sodium 100 mg extended release oral capsule (20 sources) Anti-epilepti c Agent Start: 05-10-2025 End: 2025 take 200 mg by mouth twice daily 200 mg, Oral, 2 times daily, First dose on Mon05/10/25 at 2100, Hold enteral nutrition at least 1 hour before and 2 hours after dose. Monitor drug levels. HAZARDOUS - use appropriate precautions for handling and disposal. Do not crush, split, or open. Start: 04-21-2025 End: 04-30-2025 take 200 mg by mouth twice daily 200 mg, Oral, 2 times daily, First dose on Mon04/21/25 at 2100, Phase II/On Unit, Hold enteral nutrition at least 1 hour before and 2 hours after dose. Monitor drug levels. HAZARDOUS - use appropriate precautions for handling and disposal. Do not crush, split, or open. take 2 capsules by m outh in the morning phenytoin ER (Dilantin) 100 MG capsule Take 200 mg by mouth in the morning and 200 mg before bedtime. Active polyethylene glycol 3350 36048 mg powder for oral solution (4 sources) Osmotic Laxative Start: 05-10-2025 End: 2025 take 17 g by mouth every twenty-four hours as needed for constipation Start: 04-21-2025 End: 04-30-2025 17 g, Oral, Daily, First dos e on Mon04/21/25 at 1900, Phase II/On Unit potassium chloride 20 meq powder for oral solution (4 sources) Start: 2025 End: 2025 take 1 [oz_av] by mouth once 40 mEq, Oral, Once, On Mon05/16/25 at 0430, For 1 dose, Dissolve each packet in 4 ounces of water = 5 mEq per 1 oz fluid., Indications: Hypokalemia Start: 05-14-2025 End: 05-14-2025 40 mEq, Oral, Once, On Mon at 1000, For 1 dose, Best given with food and plenty of water to minimize gastric irritation. Do not crush or chew. potassium phosphates 30 mmol in sodium chloride 0.9 % 250 mL IVPB (2 sources) Start: 04-25-2025 End: 04-25-2025 30 mmol, IntraVENous, at 55.6 mL/hr, Administer over 270 Minutes, Once, On Mon04/25/25 at 0630, For 1 dose potassium phosphates 40 mmol in sodium chloride 0.9 % 500 mL IVPB (2 sources) Start: 04-24-2025 End: 04-24-2025 40 mmol, IntraVENous, at 83.3 mL/hr, Administer over 360 Minutes, Once, On Mon04/24/25 at 0315, For 1 dose sertraline 100 mg oral tablet (20 sources) Serotonin Reuptake Inhibitor Start: 04-22-2025 End: 04-30-2025 take 200 mg by mouth once daily 200 mg, Oral, Daily, First dose on Mon04/22/25 at 1415 Start: 09-09-2023 End: 2025 take 100 mg by mouth once daily 100 mg, Oral, Daily, F irst dose on Mon05/11/25 at 0900 50 ml sodium chloride 9 mg/ml injection (20 sources) Start: 05-10-2025 End: 2025 take 5-40 mL intravenously every twelve hours 5-40 mL, IntraVENous, Every 12 hours, First dose on Mon05/10/25 at 1910, For Line Patency: Peripheral IV = 5 mL; Midline or Central Line = 10 mL/lumen. If following IV push medication, administer flush at same rate as the IV push. Flush volume is determined by type of infusion therapy being given. For non-viscous solutions use: Peripheral IV = 5 mL Midline or Central Line = 10 mL/lumen For viscous solutions (i.e. blood components, parenteralnutrition, contrast media, or after obtaining blood sample) use: Peripheral IV = 10 mL Midline or Central Line = 20 mL/lumen Start: 05-10-2025 End: 2025 Start: 05-10-2025 End: 2025 Start: 05-10-2025 End: 05-14-2025 take 60 mL intravenously every hour 60 mL/hr, IntraVEN ous, Continuous, Starting on Mon05/10/25 at 1910 Start: 05-10-2025 End: 05-10-2025 take 50 mL intravenously every hour 50 mL/hr, IntraVEN ous, Continuous, Starting on Mon05/10/25 at 1420 Start: 04-23-2025 End: 04-23-2025 500 mL, IntraVENous, at 500 mL/hr, Administer over 1 Hours, Once, On Mon04/23/25 at 1800, For 1 dose Start: 04-21-2025 End: 04-30-2025 250 mL/hr, IntraVENous, Administer over 10 Minutes, As needed, For use in priming line prior to transfusion (prime via gravity) and flush line post transfusion, Starting on Mon04/22/25 at 1124, For 1 dose, For use in priming line prior to transfusion (prime via gravity) and flush line post transfusion ONLY. Discontinue once line has been cleared of remaining blood product. Start: 04-21-2025 End: 04-21-2025 500 mL, IntraVENous, at 1,00 0 mL/hr, Administer over 0.5 Hours, Once, On Mon04/21/25 at 1615, For 1 dose, Recovery (only) stomahesive in petrolatum (E T Mix) (4 sources) Start: 05-13-2025 End: 2025 Topical, 3 times daily, Firs t dose on Mon05/13/25 at 1515, Sacrum: Stage 1 pressure injury -Cleanse with soap and water, pat dry, apply ET mix and leave CARLTON TID and PRN Start: 05-13-2025 End: 2025 Topical, PRN, sacrum, Starti ng on Mon05/13/25 at 1503, Sacrum: Stage 1 pressure injury -Cleanse with soap and water, pat dry, apply ET mix and leave CARLTON TID and PRN temazepam 15 mg oral capsule (20 sources) Benzodiazepine Start: 04-22-2025 End: 04-30-2025 take 15 mg by mouth once daily as needed for sleep 15 mg, Oral, Nightly PRN, sleep, Starting on Mon04/22/25 at 1405 End: 2025 take 1 capsule by mouth every twenty-four hours as needed temazepam (Restoril) 15 MG capsule Take 15 mg by mouth every 24 hours as needed. 2025 Discontinued (Stop taking at discharge) thiamine hydrochloride 100 m g/ml injectable solution (2 sources) Start: 04-22-2025 End: 04-30-2025 100 mg, IntraVENous, Daily, First dose on Mon04/22/25 at 0900 Problems Active Problems Problem Classification Problem Date Documented Date Episodic/Chronic Cardiac dysrhythmias (8 sources) Paroxysmal atrial fibrillation; Translations: [Paroxysmal atrial fibrillation] Onset: 05-09-2025 04-25-2025 Chronic Disorders of lipid metabolism (1 source) Hyperlipidemia, unspecified; Translations: [Hyperlipidemia, unspecified] Onset: 2025 Chronic E Codes: Fall (2 sources) Fall; Translations: [Unspecified fall, initial encounter] 10-01-2023 Episodic Essential hypertension (1 source) Essential (primary) hypertension; Translations: [Essential (primary) hypertension] Onset: 2025 Chronic Fracture of lower limb (18 sources) Closed fracture of metatarsal bone; Translations: [Fracture of unspecified metatarsal bone(s), right foot, initial encounter for closed fracture] 10-01-2023 Episodic Fracture of neck of femur (hip) (20 sources) Closed intertrochanteric fracture; Translations: [Displaced intertrochanteric fracture of left femur, initial encounter for closed fracture] Onset: 04-21-2025 04-21-2025 Episodic Malaise and fatigue (4 sources) Other malaise; Translations: [Decline in functional status] Onset: 05-10-2025 Episodic Nutritional deficiencies (5 sources) Nutritional marasmus; Translations: [Unspecified severe protein-calorie malnutrition] Onset: 05-13-2025 05-13-2025 Chronic Osteoporosis (6 sources) Osteoporosis; Translations: [Age-related osteoporosis without current pathological fracture] Onset: 04-21-2025 04-30-2025 Chronic Other aftercare (1 source) Other container 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 therapy; Translations: [Other fpc (current) drug therapy] Onset: 05-13-2025 Episodic Other connective tissue disease (7 sources) Neurological symptom; Translations: [Unspecified symptoms and signs involving the nervous system] Onset: 05-10-2025 05-10-2025 Episodic Other connective tissue disease (2 sources) Unspecified symptoms and signs involving the nervous system; Translations: [Unspecified symptoms and signs involving the nervous system] Onset: 05-10-2025 Episodic Other diseases of kidney and ureters (20 sources) Caliectasis; Translations: [Other specified disorders of kidney and ureter] Onset: 01-04-2019 05-29-2022 Chronic Residual codes; unclassified (3 sources) Menopause present; Translations: [Asymptomatic menopausal state] 01-25-2024 Episodic Residual codes; unclassified (2 sources) Altered mental status, unspecified; Translations: [Altered mental status, unspecified] Onset: 05-10-2025 Episodic Residual codes; unclassified (2 sources) Localized edema; Translations: [Localized edema] Onset: 05-10-2025 Episodic Residual codes; unclassified (2 sources) Altered mental status; Translations: [Altered mental status, unspecified] 05-10-2025 Episodic Residual codes; unclassified (2 sources) Edema of forearm; Translations: [Localized edema] 05-15-2025 Episodic Sprains and strains (4 sources) Sprain of ligament of tarsometatarsal joint; Translations: [Sprain of tarsometatarsal ligament of right foot, subsequent encounter] 10-11-2023 Episodic Unclassified (11 sources) Autogenerated Problem Onset: 04-21-2025 04-21-2025 Past or Other Problems Problem Classification Problem Date Documented Da te Episodic/Chronic Fracture of upper limb (20 sources) Closed fracture of surgical neck of humerus; Translations: [Unspecified nondisplaced fracture of surgical neck of right humerus, initial encounter for closed fracture] Onset: 07-15-2024 07-15-2024 Episodic Nonspecific chest pain (20 sources) Chest pain; Translations: [Chest pain, unspecified] Onset: 08-05-2018 05-29-2022 Episodic Results Test Name Value Interpretation Reference Range [facility] [id number] 2025 [id number] Normal [facility] [id number] Normal [facility] CBC W Auto Differential pane l (Bld)Ordered By: Claudia Benavidez on 2025 Basophils (Bld) [#/Vol] 0 10*3/uL 0.0 - 0.2 10*3/uL [facility] Basophils/100 WBC (Bld) 0.2 % 0.0 - 2.0 % [facility] Eosinophils (Bld) [#/Vol] 0.1 10*3/uL 0.0 - 0.5 10*3/uL [facility] Eosinophils/100 WBC (Bld) 1.1 % 0.0 - 6.0 % [facility] Erythrocyte distribution width (RBC) [Ratio] 16.2 % High 11.5 - 15.0 % [facility] Hematocrit (Bld) [Volume fraction] 33.2 % Low 35.0 - 47.0 % [facility] Hemoglobin (Bld) [Mass/Vol] 11.2 g/dL Low 11.7 - 16.0 g/dL [facility] Immature granulocytes (Bld) [#/Vol] 0 10*3/uL NINF - 0.1 10*3/uL [facility] Immature granulocytes/100 WBC (Bld) 0.6 % 0.0 - 2.0 % [facility] Interpretation and review of laboratory results Abnormal [facility] Lymphocytes (Bld) [#/Vol] 1.1 10*3/uL 1.0 - 4.3 10*3/uL [facility] Lymphocytes/100 WBC (Bld) 20.7 % 15.0 - 45.0 % [facility] MCH (RBC) [Entitic mass] 34.7 pg High 26.0 - 34.0 pg [facility] MCHC (RBC) [Mass/Vol] 33.7 % 30.5 - 36.0 % [facility] MCV (RBC) [Entitic vol] 102.8 fL High 77.0 - 99.0 fL [facility] Monocytes (Bld) [#/Vol] 0.7 10*3/uL 0.0 - 0.9 10*3/uL [facility] Monocytes/100 WBC (Bld) 13.4 % High 5.0 - 13.0 % [facility] Neutrophils (Bld) [#/Vol] 3.3 10*3/uL 1.8 - 7.5 10*3/uL [facility] Neutrophils/100 WBC (Bld) 64 % 38.0 - 82.0 % [facility] Nucleated RBC/100 WBC (Bld) [Ratio] 0 % [facility] Platelet mean volume (Bld) [Entitic vol] 9.6 fL 9.0 - 12.7 fL [facility] Platelets (Bld) [#/Vol] 230 10*3/uL 140 - 440 10*3/uL [facility] RBC (Bld) [#/Vol] 3.23 10*6/uL Low 3.80 - 5.2 0 10*6/uL [facility] WBC (Bld) [#/Vol] 5.2 10*3/uL 3.6 - 10.7 10*3/uL [facility] CBC WITH AUTO DIFFERENTIALon 2025 Basophils (Bld) [#/Vol] 0.0 10*3/uL Normal 0.0-0.2 [facility] Comment on above: Performed By: #### L [id number] ####Dispatch Lead: ORLIN DOMÍNGUEZ ([id number])[facility] [place] (SBHLAB)[address] Basophils/100 WBC (Bld) 0.2 % Normal 0.0-2.0 [facility] Comment on above: Performed By: #### L [id number] ####Dispatch Lead: ORLIN DOMÍNGUEZ ([id number])[facility] [place] (SBHLAB)[address] Eosinophils (Bld) [#/Vol] 0.1 10*3/uL Normal 0.0-0.5 [facility] Comment on above: Performed By: #### L [id number] ####Dispatch Lead: ORLIN DOMÍNGUEZ ([id number])[facility] [place] (SBHLAB)[address] Eosinophils/100 WBC (Bld) 1.1 % Normal 0.0-6.0 [facility] Comment on above: Performed By: #### L [id number] ####Dispatch Lead: ORLIN DOMÍNGUEZ ([id number])[facility] (SB[facility])[address] [place] [address] Erythrocyte distribution width (RBC) [Ratio] 16.2 % High 11.5-15.0 [facility] Comment on above: Performed By: #### L [id number] ####Dispatch Lead: ORLIN DOMÍNGUEZ ([id number])[facility] [place] ([facility])[address] [place] [address] Hematocrit (Bld) [Volume fraction] 33.2 % Low 35.0-47.0 [facility] Comment on above: Performed By: #### L [id number] ####Dispatch Lead: ORLIN DOMÍNGUEZ ([id number])[facility] [place] ([facility])[address] [place] [address] Hemoglobin (Bld) [Mass/Vol] 11.2 g/dL Low 11.7-16.0 [facility] Comment on above: Performed By: #### L [id number] ####Dispatch Lead: ORLIN DOMÍNGUEZ ([id number])[facility] [place] ([facility])[address] IMMATURE GRANS % 0.6 % Normal 0.0-2.0 [facility] Comment on above: Performed By: #### L [id number] ####Dispatch Lead: ORLIN DOMÍNGUEZ ([id number])[facility] ([facility])[address] IMMATURE GRANS ABSOLUTE 0.0 10*3/uL Normal <0.1 [facility] Comment on above: Performed By: #### L [id number] ####Dispatch Lead: ORLIN DOMÍNGUEZ ([id number])[facility] (SBHLAB)[address] Lymphocytes (Bld) [#/Vol] 1.1 10*3/uL Normal 1.0-4.3 [facility] Comment on above: Performed By: #### L [id number] ####Dispatch Lead: ORLIN DOMÍNGUEZ ([id number])[facility] (SB[facility])[address] Lymphocytes/100 WBC (Bld) 20.7 % Normal 15.0-45.0 [facility] Comment on above: Performed By: #### L [id number] ####Dispatch Lead: ORLIN DOMÍNGUEZ ([id number])[facility] ([facility])[address] MCH (RBC) [Entitic mass] 34.7 pg High 26.0-34.0 [facility] Comment on above: Performed By: #### L [id number] ####Dispatch Lead: ORLIN DOMÍNGUEZ ([id number])[facility] ([facility])[address] MCHC 33.7 % Normal 30.5-36.0 [facility] Comment on above: Performed By: #### L [id number] ####Dispatch Lead: ORLIN DOMÍNGUEZ ([id number])[facility] ([facility])[address] MCV (RBC) [Entitic vol] 102.8 fL High 77.0-99.0 S [facility] Comment on above: Performed By: #### L [id number] ####Dispatch Lead: ORLIN DOMÍNGUEZ ([id number])[facility] [place] (SBHLAB)[address] Monocytes (Bld) [#/Vol] 0.7 10*3/uL Normal 0.0-0.9 [facility] Comment on above: Performed By: #### L [id number] ####Dispatch Lead: ORLIN DOMÍNGUEZ ([id number])[facility] [place] ([facility])[address] Monocytes/100 WBC (Bld) 13.4 % High 5.0-13.0 [facility] Comment on above: Performed By: #### L [id number] ####Dispatch Lead: ORLIN DOMÍNGUEZ ([id number])[facility] [place] ([facility])[address] NEUTROPHILS ABSOLUTE 3.3 10*3/uL Normal 1.8-7.5 [facility] Comment on above: Performed By: #### L [id number] ####Dispatch Lead: ORLIN DOMÍNGUEZ ([id number])[facility] [place] ([facility])[address] Neutrophils/100 WBC (Bld) 64.0 % Normal 38.0-82.0 [facility] Comment on above: Performed By: #### L [id number] ####Dispatch Lead: ORLIN DOMÍNGUEZ ([id number])[facility] [place] ([facility])[address] NRBC 0.0 /100 WBCs Normal 0.0-2.0 [facility] Comment on above: Performed By: #### L [id number] ####Dispatch Lead: ORLIN DOMÍNGUEZ ([id number])[facility] [place] ([facility])[address] Platelet mean volume (Bld) [Entitic vol] 9.6 fL Normal 9.0-12.7 [facility] Comment on above: Performed By: #### L [id number] ####Dispatch Lead: ORLIN DOMÍNGUEZ ([id number])[facility] [place] ([facility])[address] Platelets (Bld) [#/Vol] 230 10*3/uL Normal 140-440 [facility] Comment on above: Performed By: #### L [id number] ####Dispatch Lead: ORLIN DOMÍNGUEZ ([id number])[facility] ([facility])[address] RBC (Bld) [#/Vol] 3.23 10*6/uL Low 3.80-5.20 [facility] Comment on above: Performed By: #### L [id number] ####Dispatch Lead: ORLIN DOMÍNGUEZ ([id number])[facility] ([facility])[address] WBC (Bld) [#/Vol] 5.2 10*3/uL Normal 3.6-10.7 [facility] Comment on above: Performed By: #### L [id number] ####Dispatch Lead: ORLIN DOMÍNGUEZ ([id number])[facility] (SBHLAB)[address] [place] [address] COMPREHENSIVE METABOLIC PANE Jay 2025 Albumin [Mass/Vol] 2.7 g/dL Low 3.4-4.8 [facility] Comment on above: Performed By: #### L AB103, LAB17, LAB31 ####Dispatch Lead: ORLIN DOMÍNGUEZ ([id number])[facility] ([facility])[address] ALP [Catalytic activity/Vol] 176 U/L High 40-150 [facility] Comment on above: Performed By: #### L AB103, LAB17, LAB31 ####Dispatch Lead: ORLIN DOMÍNGUEZ ([id number])[facility] [place] ([facility])[address] ALT [Catalytic activity/Vol] 11 U/L Normal <30 [facility] Comment on above: Performed By: #### L AB103, LAB17, LAB31 ####Dispatch Lead: ORLIN DOMÍNGUEZ ([id number])[facility] [place] ([facility])[address] Anion gap [Moles/Vol] 7 mmol/L Normal 3-13 [facility] Comment on above: Performed By: #### L AB103, LAB17, LAB31 ####Dispatch Lead: ORLIN DOMÍNGUEZ ([id number])[facility] [place] ([facility])[address] AST [Catalytic activity/Vol] 28 U/L Normal <34 [facility] Comment on above: Performed By: #### [place] LIRIANO, LAB17, LAB31 ####Dispatch Lead: ORLIN DOMÍNGUEZ ([id number])[facility] [place] ([facility])[address] Bilirubin [Mass/Vol] 0.9 mg/dL Normal <1.2 [facility] Comment on above: Performed By: #### [place] AB103, LAB17, LAB31 ####Dispatch Lead: ORLIN DOMÍNGUEZ ([id number])[facility] ([facility])[address] Calcium [Mass/Vol] 9.2 mg/dL Normal 8.8-10.0 [facility] Comment on above: Performed By: #### L AB103, LAB17, LAB31 ####Dispatch Lead: ORLIN DOMÍNGEUZ ([id number])[facility] [place] ([facility])[address] [place] [address] [place] Chloride [Moles/Vol] 103 mmol/L Normal 98-107 [facility] Comment on above: Performed By: #### [place] AB103, LAB17, LAB31 ####Dispatch Lead: ORLIN DOMÍNGUEZ ([id number])[facility] [place] ([facility])[address] CO2 [Moles/Vol] 24 mmol/L Normal 23-31 [facility] Comment on above: Performed By: #### [place] AB103, LAB17, LAB31 ####Dispatch Lead: ORLIN DOMÍNGUEZ ([id number])[facility] ([facility])[address] Creatinine [Mass/Vol] 0.43 mg/dL Low 0.57-1.11 [facility] Comment on above: Performed By: #### [place] AB103, LAB17, LAB31 ####Dispatch Lead: ORLIN DOMÍNGUEZ ([id number])[facility] (SBHLAB)[address] GLOMERULAR FILTRATION RATE ML/MIN/1.73 SQ M.PREDICTED >90.0 Normal >60.0 [facility] Comment on above: Result Comment: Calc ulation based on the Chronic Kidney Disease Epidemiology Collaboration (CKD-EPI) equation refit without adjustment for race Performed By: #### L AB103, LAB17, LAB31 ####Dispatch Lead: ORLIN DOMÍNGUEZ ([id number])[facility] [place] ([facility])[address] Glucose [Mass/Vol] 98 mg/dL Normal 82-115 [facility] Comment on above: Performed By: #### L AB103, LAB17, LAB31 ####Dispatch Lead: ORLIN DOMÍNGUEZ ([id number])[facility] ([facility])[address] Potassium [Moles/Vol] 3.4 mmol/L Low 3.5-5.1 [facility] Comment on above: Result Comment: [facility] potassium values may be up to 0.5 mmol/L lower than serum values. Performed By: #### L AB103, LAB17, LAB31 ####Dispatch Lead: ORLIN DOMÍNGUEZ ([id number])[facility] ([facility])[address] Protein [Mass/Vol] 5.5 g/dL Low 6.4-8.3 [facility] Comment on above: Performed By: #### L AB103, LAB17, LAB31 ####Dispatch Lead: ORLIN DOMÍNGUEZ ([id number])[facility] [place] ([facility])[address] Sodium [Moles/Vol] 134 mmol/L Low 136-145 [facility] Comment on above: Performed By: #### L AB103, LAB17, LAB31 ####Dispatch Lead: ORLIN DOMÍNGUEZ ([id number])[facility] [place] ([facility])[address] Urea nitrogen [Mass/Vol] 10 mg/dL Normal 9-23 [facility] Comment on above: Performed By: #### L AB103, LAB17, LAB31 ####Dispatch Lead: ORLIN DOMÍNGUEZ ([id number])[facility] [place] ([facility])[address] Comprehensive metabolic 1998 panelon 2025 Albumin [Mass/Vol] 2.7 g/dL Low 3.4 - 4.8 g/dL [facility] ALP [Catalytic activity/Vol] 176 U/L High 40 - 150 U/L [facility] ALT [Catalytic activity/Vol] 11 U/L NINF - 30 U/L [facility] Anion gap [Moles/Vol] 7 mmol/L 3 - 13 mmol/L [facility] AST [Catalytic activity/Vol] 28 U/L NINF - 34 U/L [facility] Bilirubin [Mass/Vol] 0.9 mg/dL NINF - 1.2 mg/dL [facility] Calcium [Mass/Vol] 9.2 mg/dL 8.8 - 10. 0 mg/dL [facility] Chloride [Moles/Vol] 103 mmol/L 98 - 10 7 mmol/L [facility] CO2 [Moles/Vol] 24 mmol/L 23 - 31 mmol/L [facility] Creatinine [Mass/Vol] 0.43 mg/dL Low 0.57 - 1.11 mg/dL [facility] GFR/1.73 sq M.predicted (S/P/Bld) [Vol rate/Area] - PINF [facility] Comment on above: Calculation based on the Chronic Kidney Disease Epidemiology Collaboration (CKD-EPI) equation refit without adjustment for race Glucose [Mass/Vol] 98 mg/dL 82 - 115 mg/dL [facility] Potassium [Moles/Vol] 3.4 mmol/L Low 3.5 - 5.1 mmol/L [facility] Comment on above: Plasma potassium dede ues may be up to 0.5 mmol/L lower than serum values. Protein [Mass/Vol] 5.5 g/dL Low 6.4 - 8.3 g/dL [facility] Sodium [Moles/Vol] 134 mmol/L Low 136 - 145 mmol/L [facility] Urea nitrogen [Mass/Vol] 10 mg/dL 9 - 23 mg/dL [facility] Consulton 2025 Consult Normal [facility] Laboratory - Chemistry and C hemistry - challengeon 2025 Magnesium [Mass/Vol] 1.8 mg/dL 1.6 - 2 .6 mg/dL [facility] Glucose [Mass/Vol] 109 mg/dL High 70 - 100 mg/dL [facility] Laboratory - Drug toxicology on 2025 Phenytoin [Mass/Vol] 7.6 ug/mL Low 10.0 - 20.0 ug/mL [facility] MAGNESIUMon 2025 Magnesium [Mass/Vol] 1.8 mg/dL Normal 1.6-2.6 [facility] Comment on above: Result Comment: CHERELLE Zepeda COMMENTS:Higher values can be expected in females during menses. Performed By: #### L AB103, LAB17, LAB31 ####Dispatch Lead: ORLIN DOMÍNGUEZ ([id number])[facility] ([facility])[address] [place] [address] Magnesium [Mass/Vol]on 05-16 Interpretation and review of laboratory results Normal [facility] Higher values can be expected in females during menses. [facility] No Panel Informationon 05-16 Interpretation and review of laboratory results Abnormal [facility] Toxicity seen at concentrations >20.0 ug/mL [facility] Interpretation and review of laboratory results Abnormal [facility] Performed by: [facility], [address] [address] CLIA ID: [id number] [facility] Nursing Noteon 2025 Nursing Note Message sent to Dr. Heron Glover regarding half-way request to send prescription with patient. Report called to [facility]. Normal [facility] PHENYTOIN TOTALon 2025 PHENYTOIN, TOTAL 7.6 ug/mL Low 10.0-20.0 [facility] Comment on above: Result Comment: ORDE R COMMENTS:Toxicity seen at concentrations >20.0 ug/mL Performed By: #### L AB103, LAB17, LAB31 ####Dispatch Lead: ORLIN DOMÍNGUEZ ([id number])[facility] (SB[facility])[address] Progress Noteon 2025 Progress Note Normal [facility] Progress Note Nutrition- patient i s being discharged. She was consuming strawberry Glucerna shake(220 ary, 10 gm pro/serving). Consuming 50-75% of meals and ONS. Continue regular diet Normal [facility] Progress Note Normal [facility] [id number] 05-15-2025 [id number] Normal [facility] CBC W Auto Differential pane l (Bld)Ordered By: Enma Brar on 05-15-2025 Basophils (Bld) [#/Vol] 0 10*3/uL 0.0 - 0.2 10*3/uL [facility] Basophils/100 WBC (Bld) 0.4 % 0.0 - 2.0 % [facility] Eosinophils (Bld) [#/Vol] 0.1 10*3/uL 0.0 - 0.5 10*3/uL [facility] Eosinophils/100 WBC (Bld) 1.4 % 0.0 - 6.0 % [facility] Erythrocyte distribution width (RBC) [Ratio] 16.9 % High 11.5 - 15.0 % [facility] Hematocrit (Bld) [Volume fraction] 33.1 % Low 35.0 - 47.0 % [facility] Hemoglobin (Bld) [Mass/Vol] 10 g/dL Low 11.7 - 16.0 g/dL [facility] Immature granulocytes (Bld) [#/Vol] 0 10*3/uL NINF - 0.1 10*3/uL [facility] Immature granulocytes/100 WBC (Bld) 0.8 % 0.0 - 2.0 % [facility] Interpretation and review of laboratory results Abnormal [facility] Lymphocytes (Bld) [#/Vol] 1 10*3/uL 1.0 - 4.3 10*3/uL [facility] Lymphocytes/100 WBC (Bld) 20.3 % 15.0 - 45.0 % [facility] MCH (RBC) [Entitic mass] 34.7 pg High 26.0 - 34.0 pg [facility] MCHC (RBC) [Mass/Vol] 30.2 % Low 30.5 - 36.0 % [facility] MCV (RBC) [Entitic vol] 114.9 fL High 77.0 - 99.0 fL [facility] Monocytes (Bld) [#/Vol] 0.6 10*3/uL 0.0 - 0.9 10*3/uL [facility] Monocytes/100 WBC (Bld) 12.7 % 5.0 - 13.0 % [facility] Neutrophils (Bld) [#/Vol] 3.2 10*3/uL 1.8 - 7.5 10*3/uL [facility] Neutrophils/100 WBC (Bld) 64.4 % 38.0 - 82.0 % [facility] Nucleated RBC/100 WBC (Bld) [Ratio] 0 % [facility] Platelet mean volume (Bld) [Entitic vol] 9.3 fL 9.0 - 12.7 fL [facility] Platelets (Bld) [#/Vol] 172 10*3/uL 140 - 440 10*3/uL [facility] RBC (Bld) [#/Vol] 2.88 10*6/uL Low 3.80 - 5.2 0 10*6/uL [facility] WBC (Bld) [#/Vol] 5 10*3/uL 3.6 - 10.7 10*3/uL [facility] CBC WITH AUTO DIFFERENTIALon 05-15-2025 Basophils (Bld) [#/Vol] 0.0 10*3/uL Normal 0.0-0.2 [facility] Comment on above: Performed By: #### L [id number] ####Dispatch Lead: ORLIN GUILLORYANTOINETTE ([id number])[facility] [place] (SBHLAB)[address] Basophils/100 WBC (Bld) 0.4 % Normal 0.0-2.0 [facility] Comment on above: Performed By: #### L [id number] ####Dispatch Lead: ORLIN DOMÍNGUEZ ([id number])[facility] [place] (SBHL[facility])[address] Eosinophils (Bld) [#/Vol] 0.1 10*3/uL Normal 0.0-0.5 [facility] Comment on above: Performed By: #### L [id number] ####Dispatch Lead: ORLIN DOMÍNGUEZ ([id number])[facility] [place] (SB[facility])[address] Eosinophils/100 WBC (Bld) 1.4 % Normal 0.0-6.0 [facility] Comment on above: Performed By: #### L [id number] ####Dispatch Lead: ORLIN GUILLORYANTOINETTE ([id number])[facility] [place] (SB[facility])[address] Erythrocyte distribution width (RBC) [Ratio] 16.9 % High 11.5-15.0 [facility] Comment on above: Performed By: #### L [id number] ####Dispatch Lead: ORLIN DOMÍNGUEZ ([id number])[facility] [place] ([facility])[address] Hematocrit (Bld) [Volume fraction] 33.1 % Low 35.0-47.0 [facility] Comment on above: Performed By: #### L [id number] ####Dispatch Lead: ORLIN DOMÍNGUEZ ([id number])[facility] [place] (SB[facility])[address] Hemoglobin (Bld) [Mass/Vol] 10.0 g/dL Low 11.7-16.0 [facility] Comment on above: Performed By: #### L [id number] ####Dispatch Lead: ORLIN DOMÍNGUEZ ([id number])[facility] ([facility])[address] IMMATURE GRANS % 0.8 % Normal 0.0-2.0 [facility] Comment on above: Performed By: #### L [id number] ####Dispatch Lead: ORLIN DOMÍNGUEZ ([id number])[facility])[address] IMMATURE GRANS ABSOLUTE 0.0 10*3/uL Normal <0.1 [facility] Comment on above: Performed By: #### L [id number] ####Dispatch Lead: ORLIN DOMÍNGUEZ ([phone])[facility] Lymphocytes (Bld) [#/Vol] 1.0 10*3/uL Normal 1.0-4.3 [facility] Comment on above: Performed By: #### L [id number] ####Dispatch Lead: ORLIN DOMÍNGUEZ ([id number])[facility] ([facility] [place] [address] Lymphocytes/100 WBC (Bld) 20.3 % Normal 15.0-45.0 [facility] Comment on above: Performed By: #### L [id number] ####Dispatch Lead: ORLIN DOMÍNGUEZ ([id number])[facility] ([facility])[address] MCH (RBC) [Entitic mass] 34.7 pg High 26.0-34.0 [facility] Comment on above: Performed By: #### L [id number] ####Dispatch Lead: ORLIN DOMÍNGUEZ ([id number])[facility])[address] MCHC 30.2 % Low 30.5-36.0 [facility] Comment on above: Performed By: #### L [id number] ####Dispatch Lead: ORLIN GUILLORYANTOINETTE ([id number])[facility] ([facility])[address] MCV (RBC) [Entitic vol] 114.9 fL High 77.0-99.0 [facility] Comment on above: Performed By: #### L [id number] ####Dispatch Lead: ORLIN GUILLORYANTOINETTE ([id number])[facility] ([facility])[address] Monocytes (Bld) [#/Vol] 0.6 10*3/uL Normal 0.0-0.9 [facility] Comment on above: Performed By: #### L [id number] ####Dispatch Lead: ORLIN DOMÍNGUEZ ([id number])[facility] ([facility])[address] Monocytes/100 WBC (Bld) 12.7 % Normal 5.0-13.0 [facility] Comment on above: Performed By: #### L [id number] ####Dispatch Lead: ORLIN DOMÍNGUEZ ([id number])[facility] ([facility])[address] [place] [address] NEUTROPHILS ABSOLUTE 3.2 10*3/uL Normal 1.8-7.5 [facility] Comment on above: Performed By: #### L [id number] ####Dispatch Lead: ORLIN DOMÍNGUEZ ([id number])[facility] [place] [facility])[address] Neutrophils/100 WBC (Bld) 64.4 % Normal 38.0-82.0 [facility] Comment on above: Performed By: #### L [id number] ####Dispatch Lead: ORLIN DOMÍNGUEZ ([id number])[facility] [place] ([facility])[address] NRBC 0.0 /100 WBCs Normal 0.0-2.0 [facility] Comment on above: Performed By: #### L [id number] ####Dispatch Lead: ORLIN DOMÍNGUEZ ([id number])[facility] [place] ([facility])[address] Platelet mean volume (Bld) [Entitic vol] 9.3 fL Normal 9.0-12.7 [facility] Comment on above: Performed By: #### L [id number] ####Dispatch Lead: ORLIN DOMÍNGUEZ ([id number])[facility] [place] ([facility])[address] Platelets (Bld) [#/Vol] 172 10*3/uL Normal 140-440 [facility] Comment on above: Performed By: #### L [id number] ####Dispatch Lead: ORLIN DOMÍNGUEZ ([id number])[facility] [place] ([facility])[address] RBC (Bld) [#/Vol] 2.88 10*6/uL Low 3.80-5.20 [facility] Comment on above: Performed By: #### L [id number] ####Dispatch Lead: ORLIN DOMÍNGUEZ ([id number])[facility] [place] [facility])[address] WBC (Bld) [#/Vol] 5.0 10*3/uL Normal 3.6-10.7 [facility] Comment on above: Performed By: #### L [id number] ####Dispatch Lead: ORLIN DOMÍNGUEZ ([id number])[facility] [place] ([facility])[address] COMPREHENSIVE METABOLIC PANE Jay 05-15-2025 Albumin [Mass/Vol] 2.6 g/dL Low 3.4-4.8 [facility] Comment on above: Performed By: #### L AB31, LAB17 ####Dispatch Lead: ORLIN DOMÍNGUEZ ([id number])[facility] [place] ([facility])[address] ALP [Catalytic activity/Vol] 161 U/L High 40-150 [facility] Comment on above: Performed By: #### L AB31, LAB17 ####Dispatch Lead: ORLIN DOMÍNGUEZ ([id number])[facility] [place] ([facility])[address] ALT [Catalytic activity/Vol] 7 U/L Normal <30 [facility] Comment on above: Performed By: #### L AB31, LAB17 ####Dispatch Lead: ORLIN DOMÍNGUEZ ([id number])[facility] [place] ([facility])[address] Anion gap [Moles/Vol] 9 mmol/L Normal 3-13 [facility] Comment on above: Performed By: #### L AB31, LAB17 ####Dispatch Lead: ORLIN DOMÍNGUEZ ([id number])[facility] [place] ([facility])[address] AST [Catalytic activity/Vol] 25 U/L Normal <34 [facility] Comment on above: Performed By: #### L AB31, LAB17 ####Dispatch Lead: ORLIN DOMÍNGUEZ ([id number])[facility] [place] ([facility])[address] Bilirubin [Mass/Vol] 0.9 mg/dL Normal <1.2 [facility] Comment on above: Performed By: #### L AB31, LAB17 ####Dispatch Lead: ORLIN DOMÍNGUEZ ([id number])[facility] [place] [facility])[address] Calcium [Mass/Vol] 8.7 mg/dL Low 8.8-10.0 [facility] Comment on above: Performed By: #### L AB31, LAB17 ####Dispatch Lead: ORLIN DOMÍNGUEZ ([id number])[facility] [place] ([facility])[address] [place] [address] [place] Chloride [Moles/Vol] 105 mmol/L Normal 98-107 [facility] Comment on above: Performed By: #### L AB31, LAB17 ####Dispatch Lead: ORLIN DOMÍNGUEZ ([id number])[facility] CO2 [Moles/Vol] 20 mmol/L Low 23-31 [facility] Comment on above: Performed By: #### L AB31, LAB17 ####Dispatch Lead: ORLIN DOMÍNGUEZ ([id number])[facility] ([facility])[address] Creatinine [Mass/Vol] 0.44 mg/dL Low 0.57-1.11 [facility] Comment on above: Performed By: #### L AB31, LAB17 ####Dispatch Lead: ORLIN DOMÍNGUEZ ([id number])[facility] ([facility])[address] GLOMERULAR FILTRATION RATE ML/MIN/1.73 SQ M.PREDICTED >90.0 Normal >60.0 [facility] Comment on above: Result Comment: Calc ulation based on the Chronic Kidney Disease Epidemiology Collaboration (CKD-EPI) equation refit without adjustment for race Performed By: #### L AB31, LAB17 ####Dispatch Lead: ORLIN DOMÍNGUEZ ([id number])[facility] ([facility])[address] Glucose [Mass/Vol] 92 mg/dL Normal 82-115 [facility] Comment on above: Performed By: #### L AB31, LAB17 ####Dispatch Lead: ORLIN DOMÍNGUEZ ([id number])[facility] ([facility])[address] [place] [address] [place] Potassium [Moles/Vol] 3.6 mmol/L Normal 3.5-5.1 [facility] Comment on above: Result Comment: [facility] potassium values may be up to 0.5 mmol/L lower than serum values. Performed By: #### L AB31, LAB17 ####Dispatch Lead: ORLIN DOMÍNGUEZ ([id number])[facility] ([facility])[address] Protein [Mass/Vol] 5.0 g/dL Low 6.4-8.3 [facility] Comment on above: Performed By: #### L AB31, LAB17 ####Dispatch Lead: ORLIN DOMÍNGUEZ ([id number])[facility] [place] ([facility])[address] Sodium [Moles/Vol] 134 mmol/L Low 136-145 [facility] Comment on above: Performed By: #### L AB31, LAB17 ####Dispatch Lead: ORLIN DOMÍNGUEZ ([id number])[facility] [place] ([facility])[address] Urea nitrogen [Mass/Vol] 14 mg/dL Normal 9-23 [facility] Comment on above: Performed By: #### L AB31, LAB17 ####Dispatch Lead: ORLIN DOMÍNGUEZ ([id number])[facility] [place] ([facility])[address] Comprehensive metabolic 1998 panelon 05-15-2025 Albumin [Mass/Vol] 2.6 g/dL Low 3.4 - 4.8 g/dL [facility] ALP [Catalytic activity/Vol] 161 U/L High 40 - 150 U/L [facility] ALT [Catalytic activity/Vol] 7 U/L NINF - 30 U/L [facility] Anion gap [Moles/Vol] 9 mmol/L 3 - 13 mmol/L [facility] AST [Catalytic activity/Vol] 25 U/L NINF - 34 U/L [facility] Bilirubin [Mass/Vol] 0.9 mg/dL NINF - 1.2 mg/dL [facility] Calcium [Mass/Vol] 8.7 mg/dL Low 8.8 - 10. 0 mg/dL [facility] Chloride [Moles/Vol] 105 mmol/L 98 - 10 7 mmol/L [facility] CO2 [Moles/Vol] 20 mmol/L Low 23 - 31 mmol/L [facility] Creatinine [Mass/Vol] 0.44 mg/dL Low 0.57 - 1.11 mg/dL [facility] GFR/1.73 sq M.predicted (S/P/Bld) [Vol rate/Area] - PINF [facility] Comment on above: Calculation based on the Chronic Kidney Disease Epidemiology Collaboration (CKD-EPI) equation refit without adjustment for race Glucose [Mass/Vol] 92 mg/dL 82 - 115 mg/dL [facility] Interpretation and review of laboratory results Abnormal [facility] Potassium [Moles/Vol] 3.6 mmol/L 3.5 - 5.1 mmol/L [facility] Comment on above: Plasma potassium dede ues may be up to 0.5 mmol/L lower than serum values. Protein [Mass/Vol] 5 g/dL Low 6.4 - 8.3 g/dL [facility] Sodium [Moles/Vol] 134 mmol/L Low 136 - 145 mmol/L [facility] Urea nitrogen [Mass/Vol] 14 mg/dL 9 - 23 mg/dL [facility] Laboratory - Drug toxicology on 05-15-2025 Phenytoin [Mass/Vol] 10 ug/mL 10.0 - 20.0 ug/mL [facility] No Panel Informationon 05-15 Interpretation and review of laboratory results Normal [facility] Toxicity seen at concentrations >20.0 ug/mL [facility] Nursing Noteon 05-15-2025 Nursing Note Notified Willow lu CM and Jc Blanco SW regarding patients daughter in laws request for an update on when she will go to half-way. Normal [facility] Nursing Note Normal [facility] Nursing Note Notified Dr. Heron grant that during morning round noticed patients left hand and wrist were swollen. Normal [facility] PHENYTOIN TOTALon 05-15-2025 PHENYTOIN, TOTAL 10.0 ug/mL Normal 10.0-20.0 [facility] Comment on above: Result Comment: ORDE R COMMENTS:Toxicity seen at concentrations >20.0 ug/mL Performed By: #### L AB31, LAB17 ####Dispatch Lead: ORLIN DOMÍNGUEZ ([id number])[facility] [place] ([facility])[address] [place] [id number] [facility] Progress Noteon 05-15-2025 Progress Note Normal [facility] Progress Note Normal [facility] US Upper extremity vein - le fton 05-15-2025 Acute, occlusive superficial vein thrombosis in the cephalic vein of the left upper arm. No evidence of deep vein thrombosis in the left upper extremity. Contralateral imaging of the right subclavian vein was normal. Study Details A starkey scale, color Doppler imaging and spectral Doppler analysis ultrasound was performed. During the study longitudinal and transverse views were obtained. Pulsed wave doppler was performed. The exam was performed with the patient in the supine position. Overall the study quality was adequate. Study was technically difficult due to: bedside exam. Right Upper Venous For comparison purposes, the right subclavian vein was investigated. This vein appeared to show normal color filling and Doppler interrogation showed phasic, spontaneous, and somewhat pulsatile flow. Left Upper Venous No evidence of DVT. Internal Jugular Vein: Patent, normal phasicity, spontaneous, compressible. Innominate Vein: Patent, spontaneous. Subclavian Vein: Patent, normal phasicity, spontaneous, normal augmentation, compressible. Axillary Vein: Patent, normal phasicity, spontaneous, normal augmentation, compressible. Brachial Vein: Patent, normal phasicity, spontaneous, compressible. Radial Vein: Patent, compressible. Ulnar Vein: Patent, compressible. Cephalic Vein (Upper Arm): Acute, occlusive superficial vein thrombosis in the cephalic vein of the left upper arm. Cephalic Vein (Forearm): Patent, compressible. Basilic Vein (Upper Arm): Patent, compressible. Basilic Vein (Forearm): Patent, compressible. CV CPACS [id number] 05-14-2025 [id number] Normal [facility] 36on 05-14-2025 36 Normal [facility] CBC W Auto Differential pane l (Bld)on 05-14-2025 Basophils (Bld) [#/Vol] 0 10*3/uL 0.0 - 0.2 10*3/uL [facility] Basophils/100 WBC (Bld) 0.2 % 0.0 - 2.0 % [facility] Eosinophils (Bld) [#/Vol] 0 10*3/uL 0.0 - 0.5 10*3/uL [facility] Eosinophils/100 WBC (Bld) 0.7 % 0.0 - 6.0 % [facility] Erythrocyte distribution width (RBC) [Ratio] 16.9 % High 11.5 - 15.0 % [facility] Hematocrit (Bld) [Volume fraction] 30.7 % Low 35.0 - 47.0 % [facility] Hemoglobin (Bld) [Mass/Vol] 10.5 g/dL Low 11.7 - 16.0 g/dL [facility] Immature granulocytes (Bld) [#/Vol] 0 10*3/uL NINF - 0.1 10*3/uL [facility] Immature granulocytes/100 WBC (Bld) 0.2 % 0.0 - 2.0 % [facility] Interpretation and review of laboratory results Abnormal [facility] Lymphocytes (Bld) [#/Vol] 1.1 10*3/uL 1.0 - 4.3 10*3/uL [facility] Lymphocytes/100 WBC (Bld) 18.7 % 15.0 - 45.0 % [facility] MCH (RBC) [Entitic mass] 35.1 pg High 26.0 - 34.0 pg [facility] MCHC (RBC) [Mass/Vol] 34.2 % 30.5 - 36.0 % [facility] MCV (RBC) [Entitic vol] 102.7 fL High 77.0 - 99.0 fL [facility] Monocytes (Bld) [#/Vol] 0.9 10*3/uL 0.0 - 0.9 10*3/uL [facility] Monocytes/100 WBC (Bld) 15 % High 5.0 - 13.0 % [facility] Neutrophils (Bld) [#/Vol] 3.8 10*3/uL 1.8 - 7.5 10*3/uL [facility] Neutrophils/100 WBC (Bld) 65.2 % 38.0 - 82.0 % [facility] Nucleated RBC/100 WBC (Bld) [Ratio] 0 % [facility] Platelet mean volume (Bld) [Entitic vol] 9.2 fL 9.0 - 12.7 fL [facility] Platelets (Bld) [#/Vol] 200 10*3/uL 140 - 440 10*3/uL [facility] RBC (Bld) [#/Vol] 2.99 10*6/uL Low 3.80 - 5.2 0 10*6/uL [facility] WBC (Bld) [#/Vol] 5.9 10*3/uL 3.6 - 10.7 10*3/uL [facility] CBC WITH AUTO DIFFERENTIALon 05-14-2025 Basophils (Bld) [#/Vol] 0.0 10*3/uL Normal 0.0-0.2 [facility] Comment on above: Performed By: #### L [id number] ####Dispatch Lead: ORLIN DOMÍNGUEZ ([id number])[facility] [place] ([facility])[address] Basophils/100 WBC (Bld) 0.2 % Normal 0.0-2.0 [facility] Comment on above: Performed By: #### L [id number] ####Dispatch Lead: ORLIN DOMÍNGUEZ ([id number])[facility] [place] ([facility])[address] Eosinophils (Bld) [#/Vol] 0.0 10*3/uL Normal 0.0-0.5 [facility] Comment on above: Performed By: #### L [id number] ####Dispatch Lead: ORLIN DOMÍNGUEZ ([id number])[facility] [place] ([facility])[address] [place] [address] Eosinophils/100 WBC (Bld) 0.7 % Normal 0.0-6.0 [facility] Comment on above: Performed By: #### L [id number] ####Dispatch Lead: ORLIN DOMÍNGUEZ ([id number])[facility] [place] ([facility])[address] Erythrocyte distribution width (RBC) [Ratio] 16.9 % High 11.5-15.0 [facility] Comment on above: Performed By: #### L [id number] ####Dispatch Lead: ORLIN DOMÍNGUEZ ([id number])[facility] [place] ([facility])[address] Hematocrit (Bld) [Volume fraction] 30.7 % Low 35.0-47.0 [facility] Comment on above: Performed By: #### L [id number] ####Dispatch Lead: ORLIN CLARKTrinidadANTOINETTE ([id number])[facility] ([facility])[address] Hemoglobin (Bld) [Mass/Vol] 10.5 g/dL Low 11.7-16.0 [facility] Comment on above: Performed By: #### L [id number] ####Dispatch Lead: ORLIN CLARKTrinidadANTOINETTE ([id number])[facility] ([facility])[address] IMMATURE GRANS % 0.2 % Normal 0.0-2.0 [facility] Comment on above: Performed By: #### L [id number] ####Dispatch Lead: ORLIN GUILLORYANTOINETTE ([id number])[facility] ([facility])[address] [place] [address] IMMATURE GRANS ABSOLUTE 0.0 10*3/uL Normal <0.1 [facility] Comment on above: Performed By: #### L [id number] ####Dispatch Lead: ORLIN GUILLORYANTOINETTE ([id number])[facility] ([facility])[address] [place] [address] Lymphocytes (Bld) [#/Vol] 1.1 10*3/uL Normal 1.0-4.3 [facility] Comment on above: Performed By: #### L [id number] ####Dispatch Lead: ORLIN GUILLORYANTOINETTE ([id number])[facility] ([facility])[address] [place] [address] Lymphocytes/100 WBC (Bld) 18.7 % Normal 15.0-45.0 [facility] Comment on above: Performed By: #### L [id number] ####Dispatch Lead: ORLIN GUILLORYANTOINETTE ([id number])[facility] ([facility])[address] [place] [address] MCH (RBC) [Entitic mass] 35.1 pg High 26.0-34.0 [facility] Comment on above: Performed By: #### L [id number] ####Dispatch Lead: ORLIN GUILLORYANTOINETTE ([id number])[facility] ([facility])[address] MCHC 34.2 % Normal 30.5-36.0 [facility] Comment on above: Performed By: #### L [id number] ####Dispatch Lead: ORLIN CLARKMIKALA ([id number])[facility] ([facility])[address] MCV (RBC) [Entitic vol] 102.7 fL High 77.0-99.0 [facility] Comment on above: Performed By: #### L [id number] ####Dispatch Lead: ORLIN CLARKMIKALA ([id number])[facility] ([facility])[address] Monocytes (Bld) [#/Vol] 0.9 10*3/uL Normal 0.0-0.9 [facility] Comment on above: Performed By: #### L [id number] ####Dispatch Lead: ORLIN GUILLORYANTOINETTE ([id number])[facility] ([facility])[address] Monocytes/100 WBC (Bld) 15.0 % High 5.0-13.0 [facility] Comment on above: Performed By: #### L [id number] ####Dispatch Lead: ORLIN GUILLORYANTOINETTE ([id number])[facility] ([facility])[address] NEUTROPHILS ABSOLUTE 3.8 10*3/uL Normal 1.8-7.5 [facility] Comment on above: Performed By: #### L [id number] ####Dispatch Lead: ORLIN GUILLORYANTOINETTE ([id number])[facility] ([facility])[address] Neutrophils/100 WBC (Bld) 65.2 % Normal 38.0-82.0 [facility] Comment on above: Performed By: #### L [id number] ####Dispatch Lead: ORLIN DOMÍNGUEZ ([id number])[facility] ([facility])[address] NRBC 0.0 /100 WBCs Normal 0.0-2.0 [facility] Comment on above: Performed By: #### L [id number] ####Dispatch Lead: ORLIN DOMÍNGUEZ ([id number])[facility] ([facility])[address] Platelet mean volume (Bld) [Entitic vol] 9.2 fL Normal 9.0-12.7 [facility] Comment on above: Performed By: #### L [id number] ####Dispatch Lead: ORLIN DOMÍNGUEZ ([id number])[facility] Platelets (Bld) [#/Vol] 200 10*3/uL Normal 140-440 [facility] Comment on above: Performed By: #### L [id number] ####Dispatch Lead: ORLIN DOMÍNGUEZ ([id number])[facility] ([facility])[address] RBC (Bld) [#/Vol] 2.99 10*6/uL Low 3.80-5.20 [facility] Comment on above: Performed By: #### L [id number] ####Dispatch Lead: ORLIN DOMÍNGUEZ ([id number])[facility] ([facility])[address] [place] [address] [place] WBC (Bld) [#/Vol] 5.9 10*3/uL Normal 3.6-10.7 [facility] Comment on above: Performed By: #### L [id number] ####Dispatch Lead: ORLIN DOMÍNGUEZ ([id number])[facility] ([facility])[address] COMPREHENSIVE METABOLIC PANE Jay 10-01-2025 Albumin [Mass/Vol] 2.6 g/dL Low 3.4-4.8 [facility] Comment on above: Performed By: #### L AB17, LAB31, [id number] ####Dispatch Lead: ORLIN DOMÍNGUEZ ([id number])[facility] [place] [facility])[address] ALP [Catalytic activity/Vol] 171 U/L High 40-150 [facility] Comment on above: Performed By: #### L AB17, LAB31, [id number] ####Dispatch Lead: ORLIN DOMÍNGUEZ ([id number])[facility] [place] [facility])[address] ALT [Catalytic activity/Vol] U/L Normal <30 [facility] Comment on above: Performed By: #### L AB17, LAB31, [id number] ####Dispatch Lead: ORLIN DOMÍNGUEZ ([id number])[facility] [place] ([facility])[address] Anion gap [Moles/Vol] 8 mmol/L Normal 3-13 [facility] Comment on above: Performed By: #### L AB17, LAB31, [id number] ####Dispatch Lead: ORLIN DOMÍNGUEZ ([id number])[facility] [place] ([facility])[address] AST [Catalytic activity/Vol] 20 U/L Normal <34 [facility] Comment on above: Performed By: #### L AB17, LAB31, [id number] ####Dispatch Lead: ORLIN DOMÍNGUEZ ([id number])[facility] [place] [facility])[address] Bilirubin [Mass/Vol] 1.1 mg/dL Normal <1.2 [facility] Comment on above: Performed By: #### L AB17, LAB31, [id number] ####Dispatch Lead: ORLIN DOMÍNGUEZ ([id number])[facility] [place] ([facility])[address] Calcium [Mass/Vol] 9.1 mg/dL Normal 8.8-10.0 [facility] Comment on above: Performed By: #### L AB17, LAB31, [id number] ####Dispatch Lead: ORLIN DOMÍNGUEZ ([id number])[facility]ITAL[facility]SON[facility]resenc[facility] ([facility])[address] Chloride [Moles/Vol] 104 mmol/L Normal 98-107 [facility] Comment on above: Performed By: #### L AB17, LAB31, [id number] ####Dispatch Lead: ORLIN DOMÍNGUEZ ([id number])[facility] ([facility])[address] CO2 [Moles/Vol] 21 mmol/L Low 23-31 [facility] Comment on above: Performed By: #### [place] AB17, LAB31, [id number] ####Dispatch Lead: ORLIN DOMÍNGUEZ ([id number])[facility] ([facility])[address] Creatinine [Mass/Vol] 0.48 mg/dL Low 0.57-1.11 [facility] Comment on above: Performed By: #### L AB17, LAB31, [id number] ####Dispatch Lead: ORLIN DOMÍNGUEZ ([id number])[facility] ([facility])[address] GLOMERULAR FILTRATION RATE ML/MIN/1.73 SQ M.PREDICTED >90.0 Normal >60.0 [facility] Comment on above: Result Comment: Calc ulation based on the Chronic Kidney Disease Epidemiology Collaboration (CKD-EPI) equation refit without adjustment for race Performed By: #### L AB17, LAB31, [id number] ####Dispatch Lead: ORLIN DOMÍNGUEZ ([id number])[facility] ([facility])[address] Glucose [Mass/Vol] 102 mg/dL Normal 82-115 [facility] Comment on above: Performed By: #### L AB17, LAB31, [id number] ####Dispatch Lead: ORLIN DOMÍNGUEZ ([id number])[facility] ([facility])[address] Potassium [Moles/Vol] 3.2 mmol/L Low 3.5-5.1 [facility] Comment on above: Result Comment: [facility] potassium values may be up to 0.5 mmol/L lower than serum values. Performed By: #### L AB17, LAB31, [id number] ####Dispatch Lead: ORLIN DOMÍNGUEZ ([id number])[facility] (SBHLAB)[address] Protein [Mass/Vol] 5.1 g/dL Low 6.4-8.3 [facility] Comment on above: Performed By: #### L AB17, LAB31, [id number] ####Dispatch Lead: ORLIN DOMÍNGUEZ ([id number])[facility] (SBHLAB)[address] Sodium [Moles/Vol] 133 mmol/L Low 136-145 [facility] Comment on above: Performed By: #### L AB17, LAB31, [id number] ####Dispatch Lead: ORLIN DOMÍNGUEZ ([id number])[facility] (SBHLAB)[address] Urea nitrogen [Mass/Vol] 11 mg/dL Normal 9-23 [facility] Comment on above: Performed By: #### L AB17, LAB31, [id number] ####Dispatch Lead: ORLIN DOMÍNGUEZ ([id number])[facility] ([facility] Comprehensive metabolic 1998 panelon 05-14-2025 Albumin [Mass/Vol] 2.6 g/dL Low 3.4 - 4.8 g/dL [facility] ALP [Catalytic activity/Vol] 171 U/L High 40 - 150 U/L [facility] ALT [Catalytic activity/Vol] U/L NINF - 30 U/L [facility] Anion gap [Moles/Vol] 8 mmol/L 3 - 13 mmol/L [facility] AST [Catalytic activity/Vol] 20 U/L NINF - 34 U/L [facility] Bilirubin [Mass/Vol] 1.1 mg/dL NINF - 1.2 mg/dL [facility] Calcium [Mass/Vol] 9.1 mg/dL 8.8 - 10. 0 mg/dL [facility] Chloride [Moles/Vol] 104 mmol/L 98 - 10 7 mmol/L [facility] CO2 [Moles/Vol] 21 mmol/L Low 23 - 31 mmol/L [facility] Creatinine [Mass/Vol] 0.48 mg/dL Low 0.57 - 1.11 mg/dL [facility] GFR/1.73 sq M.predicted (S/P/Bld) [Vol rate/Area] - PINF [facility] Comment on above: Calculation based on the Chronic Kidney Disease Epidemiology Collaboration (CKD-EPI) equation refit without adjustment for race Glucose [Mass/Vol] 102 mg/dL 82 - 115 mg/dL [facility] Interpretation and review of laboratory results Abnormal [facility] Potassium [Moles/Vol] 3.2 mmol/L Low 3.5 - 5.1 mmol/L [facility] Comment on above: Plasma potassium dede ues may be up to 0.5 mmol/L lower than serum values. Protein [Mass/Vol] 5.1 g/dL Low 6.4 - 8.3 g/dL [facility] Sodium [Moles/Vol] 133 mmol/L Low 136 - 145 mmol/L [facility] Urea nitrogen [Mass/Vol] 11 mg/dL 9 - 23 mg/dL [facility] Laboratory - Chemistry and C hemistry - challengeon 05-14-2025 Magnesium [Mass/Vol] 1.7 mg/dL 1.6 - 2 .6 mg/dL [facility] Laboratory - Drug toxicology on 05-14-2025 Phenytoin [Mass/Vol] 15.9 ug/mL 10.0 - 20.0 ug/mL [facility] MAGNESIUMon 05-14-2025 Magnesium [Mass/Vol] 1.7 mg/dL Normal 1.6-2.6 [facility] Comment on above: Result Comment: ORDE R COMMENTS:Higher values can be expected in females during menses. Performed By: #### L AB17, LAB31, [id number] ####Dispatch Lead: ORLIN DOMÍNGUEZ ([id number])[facility] (SBHLAB)[address] Magnesium [Mass/Vol]on 05-14 Interpretation and review of laboratory results Normal [facility] Higher values can be expected in females during menses. [facility] No Panel Informationon 05-14 Interpretation and review of laboratory results Normal [facility] Toxicity seen at concentrations >20.0 ug/mL [facility] PHENYTOIN TOTALon 05-14-2025 PHENYTOIN, TOTAL 15.9 ug/mL Normal 10.0-20.0 [facility] Comment on above: Result Comment: CHERELLE Zepeda COMMENTS:Toxicity seen at concentrations >20.0 ug/mL Performed By: #### L AB17, LAB31, [id number] ####Dispatch Lead: ORLIN DOMÍNGUEZ ([id number])[facility] Progress Noteon 05-14-2025 Progress Note [facility] Progress Note Normal [facility] Progress Note Normal [facility] [id number] 05-13-2025 [id number] Normal [facility] [id number] Normal [facility] 36on 05-13-2025 36 She was seen in the hospital with Sivan Romero Normal [facility] 36 error Normal [facility] CBC W Auto Differential pane l (Bld)on 05-13-2025 Basophils (Bld) [#/Vol] 0 10*3/uL 0.0 - 0.2 10*3/uL [facility] Basophils/100 WBC (Bld) 0.5 % 0.0 - 2.0 % [facility] Eosinophils (Bld) [#/Vol] 0.1 10*3/uL 0.0 - 0.5 10*3/uL [facility] Eosinophils/100 WBC (Bld) 2.7 % 0.0 - 6.0 % [facility] Erythrocyte distribution width (RBC) [Ratio] 17 % High 11.5 - 15.0 % [facility] Hematocrit (Bld) [Volume fraction] 31.5 % Low 35.0 - 47.0 % [facility] Hemoglobin (Bld) [Mass/Vol] 10.5 g/dL Low 11.7 - 16.0 g/dL [facility] Immature granulocytes (Bld) [#/Vol] 0 10*3/uL NINF - 0.1 10*3/uL [facility] Immature granulocytes/100 WBC (Bld) 0.5 % 0.0 - 2.0 % [facility] Interpretation and review of laboratory results Abnormal [facility] Lymphocytes (Bld) [#/Vol] 1 10*3/uL 1.0 - 4.3 10*3/uL [facility] Lymphocytes/100 WBC (Bld) 23.5 % 15.0 - 45.0 % [facility] MCH (RBC) [Entitic mass] 34.7 pg High 26.0 - 34.0 pg [facility] MCHC (RBC) [Mass/Vol] 33.3 % 30.5 - 36.0 % [facility] MCV (RBC) [Entitic vol] 104 fL High 77.0 - 99.0 fL [facility] Monocytes (Bld) [#/Vol] 0.6 10*3/uL 0.0 - 0.9 10*3/uL [facility] Monocytes/100 WBC (Bld) 14.3 % High 5.0 - 13.0 % [facility] Neutrophils (Bld) [#/Vol] 2.4 10*3/uL 1.8 - 7.5 10*3/uL [facility] Neutrophils/100 WBC (Bld) 58.5 % 38.0 - 82.0 % [facility] Nucleated RBC/100 WBC (Bld) [Ratio] 0 % [facility] Platelet mean volume (Bld) [Entitic vol] 9.2 fL 9.0 - 12.7 fL [facility] Platelets (Bld) [#/Vol] 192 10*3/uL 140 - 440 10*3/uL [facility] RBC (Bld) [#/Vol] 3.03 10*6/uL Low 3.80 - 5.2 0 10*6/uL [facility] WBC (Bld) [#/Vol] 4.1 10*3/uL 3.6 - 10.7 10*3/uL [facility] CBC WITH AUTO DIFFERENTIALon 05-13-2025 Basophils (Bld) [#/Vol] 0.0 10*3/uL Normal 0.0-0.2 [facility] Comment on above: Performed By: #### L [id number] ####Dispatch Lead: ORLIN DOMÍNGUEZ ([id number])[facility] (SBHLAB)[address] Basophils/100 WBC (Bld) 0.5 % Normal 0.0-2.0 [facility] Comment on above: Performed By: #### L [id number] ####Dispatch Lead: ORLIN DOMÍNGUEZ ([id number])[facility] (SBHLAB)[address] Eosinophils (Bld) [#/Vol] 0.1 10*3/uL Normal 0.0-0.5 [facility] Comment on above: Performed By: #### L [id number] ####Dispatch Lead: ORLIN DOMÍNGUEZ ([id number])[facility] [place] (SBHLAB)[address] Eosinophils/100 WBC (Bld) 2.7 % Normal 0.0-6.0 [facility] Comment on above: Performed By: #### L [id number] ####Dispatch Lead: ORLIN GUILLORYANTOINETTE ([id number])[facility] (SBHLAB)[address] Erythrocyte distribution width (RBC) [Ratio] 17.0 % High 11.5-15.0 [facility] Comment on above: Performed By: #### L [id number] ####Dispatch Lead: ORLIN DOMÍNGUEZ ([id number])[facility] [place] (SBHLAB)[address] Hematocrit (Bld) [Volume fraction] 31.5 % Low 35.0-47.0 [facility] Comment on above: Performed By: #### L [id number] ####Dispatch Lead: ORLIN DOMÍNGUEZ ([id number])[facility] [place] (SBHLAB)[address] Hemoglobin (Bld) [Mass/Vol] 10.5 g/dL Low 11.7-16.0 [facility] Comment on above: Performed By: #### L [id number] ####Dispatch Lead: ORLIN DOMÍNGUEZ ([id number])[facility] [place] (SBHLAB)[address] IMMATURE GRANS % 0.5 % Normal 0.0-2.0 [facility] Comment on above: Performed By: #### L [id number] ####Dispatch Lead: ORLIN DOMÍNGUEZ ([id number])[facility] (SBHLAB)[address] IMMATURE GRANS ABSOLUTE 0.0 10*3/uL Normal <0.1 [facility] Comment on above: Performed By: #### L [id number] ####Dispatch Lead: ORLIN DOMÍNGUEZ ([id number])[facility] (SBHLAB)[address] Lymphocytes (Bld) [#/Vol] 1.0 10*3/uL Normal 1.0-4.3 [facility] Comment on above: Performed By: #### L [id number] ####Dispatch Lead: ORLIN DOMÍNGUEZ ([id number])[facility] [place] (SBHLAB)[address] Lymphocytes/100 WBC (Bld) 23.5 % Normal 15.0-45.0 [facility] Comment on above: Performed By: #### L [id number] ####Dispatch Lead: ORLIN DOMÍNGUEZ ([id number])[facility] [place] (SBHLAB)[address] MCH (RBC) [Entitic mass] 34.7 pg High 26.0-34.0 [facility] Comment on above: Performed By: #### L [id number] ####Dispatch Lead: ORLIN DOMÍNGUEZ ([id number])[facility] (SBHLAB)[address] MCHC 33.3 % Normal 30.5-36.0 [facility] Comment on above: Performed By: #### L [id number] ####Dispatch Lead: ORLIN CLARKTrinidadANTOINETTE ([id number])[facility] (SBHLAB)[address] MCV (RBC) [Entitic vol] 104.0 fL High 77.0-99.0 [facility] Comment on above: Performed By: #### L [id number] ####Dispatch Lead: ORLIN SANG ([id number])[facility] [place] (SBHLAB)[address] Monocytes (Bld) [#/Vol] 0.6 10*3/uL Normal 0.0-0.9 [facility] Comment on above: Performed By: #### L [id number] ####Dispatch Lead: ORLIN CLARKMIKALA ([id number])[facility] [place] (SBHLAB)[address] Monocytes/100 WBC (Bld) 14.3 % High 5.0-13.0 [facility] Comment on above: Performed By: #### L [id number] ####Dispatch Lead: ORLIN GUILLORYANTOINETTE ([id number])[facility] (SBHLAB)[address] NEUTROPHILS ABSOLUTE 2.4 10*3/uL Normal 1.8-7.5 [facility] Comment on above: Performed By: #### L [id number] ####Dispatch Lead: ORLIN CLARKMIKALA ([id number])[facility] [place] (SBHLAB)[address] Neutrophils/100 WBC (Bld) 58.5 % Normal 38.0-82.0 [facility] Comment on above: Performed By: #### L [id number] ####Dispatch Lead: ORLIN GUILLORYANTOINETTE ([id number])[facility] [place] (SBHLAB)[address] NRBC 0.0 /100 WBCs Normal 0.0-2.0 [facility] Comment on above: Performed By: #### L [id number] ####Dispatch Lead: ORLIN DOMÍNGUEZ ([id number])[facility] [place] (SBHLAB)[address] Platelet mean volume (Bld) [Entitic vol] 9.2 fL Normal 9.0-12.7 [facility] Comment on above: Performed By: #### L [id number] ####Dispatch Lead: ORLIN DOMÍNGUEZ ([id number])[facility] [place] (SBHLAB)[address] Platelets (Bld) [#/Vol] 192 10*3/uL Normal 140-440 [facility] Comment on above: Performed By: #### L [id number] ####Dispatch Lead: ORLIN DOMÍNGUEZ ([id number])[facility] [place] (SBHLAB)[address] RBC (Bld) [#/Vol] 3.03 10*6/uL Low 3.80-5.20 [facility] Comment on above: Performed By: #### L [id number] ####Dispatch Lead: ORLIN DOMÍNGUEZ ([id number])[facility] [place] (SBHLAB)[address] WBC (Bld) [#/Vol] 4.1 10*3/uL Normal 3.6-10.7 [facility] Comment on above: Performed By: #### L [id number] ####Dispatch Lead: ORLIN DOMÍNGUEZ ([id number])[facility] [place] (SBHLAB)[address] COMPREHENSIVE METABOLIC PANE Jay 05-13-2025 Albumin [Mass/Vol] 2.7 g/dL Low 3.4-4.8 [facility] Comment on above: Performed By: #### L AB103, LAB17 ####Dispatch Lead: ORLIN DOMÍNGUEZ ([id number])[facility] [place] (SBHLAB)155 [place] [address] [place] ALP [Catalytic activity/Vol] 181 U/L High 40-150 [facility] Comment on above: Performed By: #### L AB103, LAB17 ####Dispatch Lead: ORLIN DOMÍNGUEZ ([id number])[facility] (SBHLAB)155 [place] [address] [place] ALT [Catalytic activity/Vol] 6 U/L Normal <30 [facility] Comment on above: Performed By: #### L AB103, LAB17 ####Dispatch Lead: ORLIN DOMÍNGUEZ ([id number])[facility] [place] (SBHLAB)[address] Anion gap [Moles/Vol] 8 mmol/L Normal 3-13 [facility] Comment on above: Performed By: #### L AB103, LAB17 ####Dispatch Lead: ORLIN DOMÍNGUEZ ([id number])[facility] [place] (SBHLAB)[address] AST [Catalytic activity/Vol] 21 U/L Normal <34 [facility] Comment on above: Performed By: #### L AB103, LAB17 ####Dispatch Lead: ORLIN DOMÍNGUEZ ([id number])[facility] [place] (SBHLAB)[address] Bilirubin [Mass/Vol] 1.0 mg/dL Normal <1.2 [facility] Comment on above: Performed By: #### L AB103, LAB17 ####Dispatch Lead: ORLIN DOMÍNGUEZ ([id number])[facility] [place] (SBHLAB)[address] [place] [address] [place] Calcium [Mass/Vol] 8.8 mg/dL Normal 8.8-10.0 [facility] Comment on above: Performed By: #### L AB103, LAB17 ####Dispatch Lead: ORLIN DOMÍNGUEZ ([id number])[facility] [place] (SBHLAB)[address] [place] [address] [place] Chloride [Moles/Vol] 104 mmol/L Normal 98-107 [facility] Comment on above: Performed By: #### L AB103, LAB17 ####Dispatch Lead: ORLIN DOMÍNGUEZ ([id number])[facility] (SBHLAB)[address] CO2 [Moles/Vol] 23 mmol/L Normal 23-31 [facility] Comment on above: Performed By: #### L AB103, LAB17 ####Dispatch Lead: ORLIN DOMÍNGUEZ ([id number])[facility] (SBHLAB)[address] Creatinine [Mass/Vol] 0.41 mg/dL Low 0.57-1.11 [facility] Comment on above: Performed By: #### L AB103, LAB17 ####Dispatch Lead: ORLIN DOMÍNGUEZ ([id number])[facility] (HLAB)[address] GLOMERULAR FILTRATION RATE ML/MIN/1.73 SQ M.PREDICTED >90.0 Normal >60.0 [facility] Comment on above: Result Comment: Calc ulation based on the Chronic Kidney Disease Epidemiology Collaboration (CKD-EPI) equation refit without adjustment for race Performed By: #### L AB103, LAB17 ####Dispatch Lead: ORLIN DOMÍNGUEZ ([id number])[facility] (SBHLAB)[address] Glucose [Mass/Vol] 93 mg/dL Normal 82-115 [facility] Comment on above: Performed By: #### L AB103, LAB17 ####Dispatch Lead: ORLIN DOMÍNGUEZ ([id number])[facility] Potassium [Moles/Vol] 3.1 mmol/L Low 3.5-5.1 [facility] Comment on above: Result Comment: [facility] potassium values may be up to 0.5 mmol/L lower than serum values. Performed By: #### L AB103, LAB17 ####Dispatch Lead: ORLIN GUILLORYANTOINETTE ([id number])[facility] [place] (SBHLAB)[address] Protein [Mass/Vol] 5.2 g/dL Low 6.4-8.3 [facility] Comment on above: Performed By: #### L AB103, LAB17 ####Dispatch Lead: ORLIN SINGHCER ([id number])[facility] [place] (SBHLAB)[address] Sodium [Moles/Vol] 135 mmol/L Low 136-145 [facility] Comment on above: Performed By: #### L AB103, LAB17 ####Dispatch Lead: ORLIN CLARKMIKALA ([id number])[facility] [place] (SBHLAB)[address] Urea nitrogen [Mass/Vol] 7 mg/dL Low 9-23 [facility] Comment on above: Performed By: #### L AB103, LAB17 ####Dispatch Lead: ORLIN GUILLORYANTOINETTE ([id number])[facility] [place] (SBHLAB)[address] Comprehensive metabolic 1998 panelon 05-13-2025 Albumin [Mass/Vol] 2.7 g/dL Low 3.4 - 4.8 g/dL [facility] ALP [Catalytic activity/Vol] 181 U/L High 40 - 150 U/L [facility] ALT [Catalytic activity/Vol] 6 U/L NINF - 30 U/L [facility] Anion gap [Moles/Vol] 8 mmol/L 3 - 13 mmol/L [facility] AST [Catalytic activity/Vol] 21 U/L NINF - 34 U/L [facility] Bilirubin [Mass/Vol] 1 mg/dL NINF - 1.2 mg/dL [facility] Calcium [Mass/Vol] 8.8 mg/dL 8.8 - 10. 0 mg/dL [facility] Chloride [Moles/Vol] 104 mmol/L 98 - 10 7 mmol/L [facility] CO2 [Moles/Vol] 23 mmol/L 23 - 31 mmol/L [facility] Creatinine [Mass/Vol] 0.41 mg/dL Low 0.57 - 1.11 mg/dL [facility] GFR/1.73 sq M.predicted (S/P/Bld) [Vol rate/Area] - PINF [facility] Comment on above: Calculation based on the Chronic Kidney Disease Epidemiology Collaboration (CKD-EPI) equation refit without adjustment for race Glucose [Mass/Vol] 93 mg/dL 82 - 115 mg/dL [facility] Interpretation and review of laboratory results Abnormal [facility] Potassium [Moles/Vol] 3.1 mmol/L Low 3.5 - 5.1 mmol/L [facility] Comment on above: Plasma potassium dede ues may be up to 0.5 mmol/L lower than serum values. Protein [Mass/Vol] 5.2 g/dL Low 6.4 - 8.3 g/dL [facility] Sodium [Moles/Vol] 135 mmol/L Low 136 - 145 mmol/L [facility] Urea nitrogen [Mass/Vol] 7 mg/dL Low 9 - 23 mg/dL [facility] Laboratory - Chemistry and C hemistry - challengeon 05-13-2025 Magnesium [Mass/Vol] 1.7 mg/dL 1.6 - 2 .6 mg/dL [facility] Laboratory - Drug toxicology on 05-13-2025 Phenytoin [Mass/Vol] 21.4 ug/mL High 10.0 - 20.0 ug/mL [facility] MAGNESIUMon 05-13-2025 Magnesium [Mass/Vol] 1.7 mg/dL Normal 1.6-2.6 [facility] Comment on above: Result Comment: CHERELLE Zepeda COMMENTS:Higher values can be expected in females during menses. Performed By: #### L AB103, LAB17 ####Dispatch Lead: ORLIN DOMÍNGUEZ ([id number])[facility] ([facility])[address] [place] [address] Magnesium [Mass/Vol]on 05-13 Interpretation and review of laboratory results Normal [facility] Higher values can be expected in females during menses. [facility] No Panel Informationon 05-13 Interpretation and review of laboratory results Abnormal [facility] Toxicity seen at concentrations >20.0 ug/mL [facility] PHENYTOIN TOTALon 05-13-2025 PHENYTOIN, TOTAL 21.4 ug/mL High 10.0-20.0 [facility] Comment on above: Result Comment: CHERELLE Zepeda COMMENTS:Toxicity seen at concentrations >20.0 ug/mL Performed By: #### L AB31 ####Dispatch Lead: ORLIN DOMÍNGUEZ ([id number])[facility] [place] (SBHLAB)[address] [place] [address] Progress Noteon 05-13-2025 Progress Note Normal [facility] Progress Note Normal [facility] Progress Note Normal [facility] XR Femur - left 2 Viewson Left intertrochanter ic femur fracture with displaced lesser trochanter fragment. Otherwise near-anatomic alignment status post ORIF. Report Dictated on Electronically Signed By: Brendon Koenig DR Electronically Signed Date/Time: 05/13/2025 2:34 PM EDT [facility] Patient Name: MADAY ALFARO : 1940 Exam Date/Time: 05/13/2025 13:45 Procedure: XR FEMUR 2+ VW LEFT Ordering Provider: ROMERO BRITTANY Reason For Exam: post-op left hip Clinical history: post-op left hip COMPARISON: 04/21/2025. TECHNIQUE: Left femur, two views FINDINGS: Diffuse osteopenia. Left intertrochanteric femur fracture in near-anatomic alignment status post antegrade IM nail placement and femoral neck fixation screws. Displaced lesser trochanter fracture fragment present. No other acute fractures or dislocations seen. Moderate left femoral acetabular joint space narrowing, subchondral sclerosis and osteophytosis. [facility] Brendon Koenig MD - 05/13/2025 Patient Name: MADAY ALFARO : 1940 Exam Date/Time: 05/13/2025 13:45 Procedure: XR FEMUR 2+ VW LEFT Ordering Provider: ROMERO BRITTANY Reason For Exam: post-op left hip Clinical history: post-op left hip COMPARISON: 04/21/2025. TECHNIQUE: Left femur, two views FINDINGS: Diffuse osteopenia. Left intertrochanteric femur fracture in near-anatomic alignment status post antegrade IM nail placement and femoral neck fixation screws. Displaced lesser trochanter fracture fragment present. No other acute fractures or dislocations seen. Moderate left femoral acetabular joint space narrowing, subchondral sclerosis and osteophytosis. IMPRESSION: Left intertrochanteric femur fracture with displaced lesser trochanter fragment. Otherwise near-anatomic alignment status post ORIF. Report Dictated on Electronically Signed By: Brendon Koenig DR Electronically Signed Date/Time: 05/13/2025 2:34 PM EDT [facility] Radiology Study observation (narrative) [facility] XR Femur - left 2 ViewsOrder ed By: Brendon Koenig on 05-13-2025 [facility] Work Phone: [phone] 05-12-2025 [id number] Normal [facility] [id number] Normal [facility] 36on 05-12-2025 36 Normal [facility] 36 Normal [facility] CBC W Auto Differential pane l (Bld)Ordered By: Xiomara Bell on 05-12-2025 Basophils (Bld) [#/Vol] 0 10*3/uL 0.0 - 0.2 10*3/uL [facility] Basophils/100 WBC (Bld) 0.4 % 0.0 - 2.0 % [facility] Eosinophils (Bld) [#/Vol] 0.1 10*3/uL 0.0 - 0.5 10*3/uL [facility] Eosinophils/100 WBC (Bld) 2 % 0.0 - 6.0 % [facility] Erythrocyte distribution width (RBC) [Ratio] 17.2 % High 11.5 - 15.0 % [facility] Hematocrit (Bld) [Volume fraction] 33.9 % Low 35.0 - 47.0 % [facility] Hemoglobin (Bld) [Mass/Vol] 11.2 g/dL Low 11.7 - 16.0 g/dL [facility] Immature granulocytes (Bld) [#/Vol] 0.1 10*3/uL High NINF - 0.1 10*3/uL [facility] Immature granulocytes/100 WBC (Bld) 1.1 % 0.0 - 2.0 % [facility] Interpretation and review of laboratory results Abnormal [facility] Lymphocytes (Bld) [#/Vol] 0.7 10*3/uL Low 1.0 - 4.3 10*3/uL [facility] Lymphocytes/100 WBC (Bld) 15.4 % 15.0 - 45.0 % [facility] MCH (RBC) [Entitic mass] 34.8 pg High 26.0 - 34.0 pg [facility] MCHC (RBC) [Mass/Vol] 33 % 30.5 - 36.0 % [facility] MCV (RBC) [Entitic vol] 105.3 fL High 77.0 - 99.0 fL [facility] Monocytes (Bld) [#/Vol] 0.7 10*3/uL 0.0 - 0.9 10*3/uL [facility] Monocytes/100 WBC (Bld) 15 % High 5.0 - 13.0 % [facility] Neutrophils (Bld) [#/Vol] 3 10*3/uL 1.8 - 7.5 10*3/uL [facility] Neutrophils/100 WBC (Bld) 66.1 % 38.0 - 82.0 % [facility] Nucleated RBC/100 WBC (Bld) [Ratio] 0 % [facility] Platelet mean volume (Bld) [Entitic vol] 9.8 fL 9.0 - 12.7 fL [facility] Platelets (Bld) [#/Vol] 164 10*3/uL 140 - 440 10*3/uL [facility] RBC (Bld) [#/Vol] 3.22 10*6/uL Low 3.80 - 5.2 0 10*6/uL [facility] WBC (Bld) [#/Vol] 4.6 10*3/uL 3.6 - 10.7 10*3/uL [facility] CBC WITH AUTO DIFFERENTIALon 05-12-2025 Basophils (Bld) [#/Vol] 0.0 10*3/uL Normal 0.0-0.2 [facility] Comment on above: Performed By: #### L [id number] ####Dispatch Lead: ORLIN DOMÍNGUEZ ([id number])[facility]ITAL[facility] [place] (SBHLAB)[address] [place] [address] Basophils/100 WBC (Bld) 0.4 % Normal 0.0-2.0 [facility] Comment on above: Performed By: #### L [id number] ####Dispatch Lead: ORLIN DOMÍNGUEZ ([id number])[facility] [place] (SBHLAB)[address] Eosinophils (Bld) [#/Vol] 0.1 10*3/uL Normal 0.0-0.5 [facility] Comment on above: Performed By: #### L [id number] ####Dispatch Lead: ORLIN DOMÍNGUEZ ([id number])[facility] [place] (SBHLAB)[address] Eosinophils/100 WBC (Bld) 2.0 % Normal 0.0-6.0 [facility] Comment on above: Performed By: #### L [id number] ####Dispatch Lead: ORLIN DOMÍNGUEZ ([id number])[facility] [place] (SBHLAB)[address] Erythrocyte distribution width (RBC) [Ratio] 17.2 % High 11.5-15.0 [facility] Comment on above: Performed By: #### L [id number] ####Dispatch Lead: ORLIN DOMÍNGUEZ ([id number])[facility] [place] (SBHLAB)[address] [place] [address] Hematocrit (Bld) [Volume fraction] 33.9 % Low 35.0-47.0 [facility] Comment on above: Performed By: #### L [id number] ####Dispatch Lead: ORLIN DOMÍNGUEZ ([id number])[facility] [place] (SBHLAB)[address] Hemoglobin (Bld) [Mass/Vol] 11.2 g/dL Low 11.7-16.0 [facility] Comment on above: Performed By: #### L [id number] ####Dispatch Lead: ORLIN DOMÍNGUEZ ([id number])[facility] [place] (SBHLAB)[address] IMMATURE GRANS % 1.1 % Normal 0.0-2.0 [facility] Comment on above: Performed By: #### L [id number] ####Dispatch Lead: ORLIN DOMÍNGUEZ ([id number])[facility] (SBHLAB)[address] IMMATURE GRANS ABSOLUTE 0.1 10*3/uL High <0.1 [facility] Comment on above: Performed By: #### L [id number] ####Dispatch Lead: ORLIN DOMÍNGUEZ ([id number])[facility] (SBHLAB)[address] Lymphocytes (Bld) [#/Vol] 0.7 10*3/uL Low 1.0-4.3 [facility] Comment on above: Performed By: #### L [id number] ####Dispatch Lead: ORLIN DOMÍNGUEZ ([id number])[facility] (SBHLAB)[address] Lymphocytes/100 WBC (Bld) 15.4 % Normal 15.0-45.0 [facility] Comment on above: Performed By: #### L [id number] ####Dispatch Lead: ORLIN DOMÍNGUEZ ([id number])[facility] ([facility])[address] MCH (RBC) [Entitic mass] 34.8 pg High 26.0-34.0 [facility] Comment on above: Performed By: #### L [id number] ####Dispatch Lead: ORLIN DOMÍNGUEZ ([id number])[facility] (SB[facility])[address] MCHC 33.0 % Normal 30.5-36.0 [facility] Comment on above: Performed By: #### L [id number] ####Dispatch Lead: ORLIN DOMÍNGUEZ ([id number])[facility] (SBHLAB)[address] MCV (RBC) [Entitic vol] 105.3 fL High 77.0-99.0 [facility] Comment on above: Performed By: #### L [id number] ####Dispatch Lead: ORLIN DOMÍNGUEZ ([id number])[facility] [place] (SBHLAB)[address] Monocytes (Bld) [#/Vol] 0.7 10*3/uL Normal 0.0-0.9 [facility] Comment on above: Performed By: #### L [id number] ####Dispatch Lead: ORLIN DOMÍNGUEZ ([id number])[facility] [place] (SBHLAB)[address] Monocytes/100 WBC (Bld) 15.0 % High 5.0-13.0 [facility] Comment on above: Performed By: #### L [id number] ####Dispatch Lead: ORLIN DOMÍNGUEZ ([id number])[facility] [place] (SBHLAB)[address] NEUTROPHILS ABSOLUTE 3.0 10*3/uL Normal 1.8-7.5 [facility] Comment on above: Performed By: #### L [id number] ####Dispatch Lead: ORLIN DOMÍNGUEZ ([id number])[facility] [place] (SB[facility]AB)[address] Neutrophils/100 WBC (Bld) 66.1 % Normal 38.0-82.0 [facility] Comment on above: Performed By: #### L [id number] ####Dispatch Lead: ORLIN DOMÍNGUEZ ([id number])[facility] [place] (SBHLAB)[address] NRBC 0.0 /100 WBCs Normal 0.0-2.0 [facility] Comment on above: Performed By: #### L [id number] ####Dispatch Lead: ORLIN DOMÍNGUEZ ([id number])[facility] [place] (SBHLAB)[address] Platelet mean volume (Bld) [Entitic vol] 9.8 fL Normal 9.0-12.7 [facility] Comment on above: Performed By: #### L [id number] ####Dispatch Lead: ORLIN DOMÍNGUEZ ([id number])[facility] [place] (SBHLAB)[address] Platelets (Bld) [#/Vol] 164 10*3/uL Normal 140-440 [facility] Comment on above: Performed By: #### L [id number] ####Dispatch Lead: ORLIN DOMÍNGUEZ ([id number])[facility] [place] (SBHLAB)[address] RBC (Bld) [#/Vol] 3.22 10*6/uL Low 3.80-5.20 [facility] Comment on above: Performed By: #### L [id number] ####Dispatch Lead: ORLIN DOMÍNGUEZ ([id number])[facility] [place] (SBHLAB)[address] WBC (Bld) [#/Vol] 4.6 10*3/uL Normal 3.6-10.7 [facility] Comment on above: Performed By: #### L [id number] ####Dispatch Lead: ORLIN DOMÍNGUEZ ([id number])[facility] [place] (SBHLAB)[address] COMPREHENSIVE METABOLIC PANE Jay 05-12-2025 Albumin [Mass/Vol] 2.9 g/dL Low 3.4-4.8 [facility] Comment on above: Performed By: #### L AB17 ####Dispatch Lead: ORLIN DOMÍNGUEZ ([id number])[facility] [place] (SB[facility]AB)[address] ALP [Catalytic activity/Vol] 193 U/L High 40-150 [facility] Comment on above: Performed By: #### L AB17 ####Dispatch Lead: ORLIN DOMÍNGUEZ ([id number])[facility] [place] (SBHLAB)[address] ALT [Catalytic activity/Vol] 6 U/L Normal <30 [facility] Comment on above: Performed By: #### L AB17 ####Dispatch Lead: ORLIN DOMÍNGUEZ ([id number])[facility] [place] (SBHLAB)[address] Anion gap [Moles/Vol] 10 mmol/L Normal 3-13 [facility] Comment on above: Performed By: #### L AB17 ####Dispatch Lead: ORLIN DOMÍNGUEZ ([id number])[facility] [place] (HLAB)[address] AST [Catalytic activity/Vol] 23 U/L Normal <34 [facility] Comment on above: Performed By: #### L AB17 ####Dispatch Lead: ORLIN DOMÍNGUEZ ([id number])[facility] (HLAB)[address] Bilirubin [Mass/Vol] 1.2 mg/dL High <1.2 [facility] Comment on above: Performed By: #### L AB17 ####Dispatch Lead: ORLIN DOMÍNGUEZ ([id number])[facility] ([facility])[address] Calcium [Mass/Vol] 9.0 mg/dL Normal 8.8-10.0 [facility] Comment on above: Performed By: #### L AB17 ####Dispatch Lead: ORLIN DOMÍNGUEZ ([id number])[facility] (HLAB)[address] [place] [address] [place] Chloride [Moles/Vol] 103 mmol/L Normal 98-107 [facility] Comment on above: Performed By: #### L AB17 ####Dispatch Lead: ORLIN DOMÍNGUEZ ([id number])[facility] (HLAB)[address] [place] [address] [place] CO2 [Moles/Vol] 20 mmol/L Low 23-[address] [facility] Comment on above: Performed By: #### L AB17 ####Dispatch Lead: ORLIN DOMÍNGUEZ ([id number])[facility]ITALD[facility]BC[facility] CENTERCresencio (SBHLAB)[address] Creatinine [Mass/Vol] 0.44 mg/dL Low 0.57-1.11 [facility] Comment on above: Performed By: #### L AB17 ####Dispatch Lead: ORLIN DOMÍNGUEZ ([id number])[facility] (SBHLAB)[address] GLOMERULAR FILTRATION RATE ML/MIN/1.73 SQ M.PREDICTED >90.0 Normal >60.0 [facility] Comment on above: Result Comment: Calc ulation based on the Chronic Kidney Disease Epidemiology Collaboration (CKD-EPI) equation refit without adjustment for race Performed By: #### L AB17 ####Dispatch Lead: ORLIN DOMÍNGUEZ ([id number])[facility]ITAL[facility] [place] (SBHLAB)[address] Glucose [Mass/Vol] 109 mg/dL Normal 82-115 [facility] Comment on above: Performed By: #### L AB17 ####Dispatch Lead: ORLIN DOMÍNGUEZ ([id number])[facility] (HLAB)[address] Potassium [Moles/Vol] 3.6 mmol/L Normal 3.5-5.1 [facility] Comment on above: Result Comment: [facility] potassium values may be up to 0.5 mmol/L lower than serum values. Performed By: #### L AB17 ####Dispatch Lead: ORLIN DOMÍNGUEZ ([id number])[facility] (SBHLAB)[address] Protein [Mass/Vol] 5.7 g/dL Low 6.4-8.3 [facility] Comment on above: Performed By: #### L AB17 ####Dispatch Lead: ORLIN DOMÍNGUEZ ([id number])[facility] (SBHLAB)[address] [place] [address] [place] Sodium [Moles/Vol] 133 mmol/L Low 136-145 [facility] Comment on above: Performed By: #### L AB17 ####Dispatch Lead: ORLINGEORGIA CLARKTrinidadANTOINETTE ([id number])[facility] (SBHLAB)[address] Urea nitrogen [Mass/Vol] 9 mg/dL Normal 9-23 [facility] Comment on above: Performed By: #### L AB17 ####Dispatch Lead: ORLINGEORGIA DOMÍNGUEZ ([id number])[facility] (SBHLAB)[address] Comprehensive metabolic 1998 panelon 05-12-2025 Albumin [Mass/Vol] 2.9 g/dL Low 3.4 - 4.8 g/dL [facility] ALP [Catalytic activity/Vol] 193 U/L High 40 - 150 U/L [facility] ALT [Catalytic activity/Vol] 6 U/L NINF - 30 U/L [facility] Anion gap [Moles/Vol] 10 mmol/L 3 - 13 mmol/L [facility] AST [Catalytic activity/Vol] 23 U/L NINF - 34 U/L [facility] Bilirubin [Mass/Vol] 1.2 mg/dL High [facility] - 1.2 mg/dL [facility] Calcium [Mass/Vol] 9 mg/dL 8.8 - 10. 0 mg/dL [facility] Chloride [Moles/Vol] 103 mmol/L 98 - 10 7 mmol/L [facility] CO2 [Moles/Vol] 20 mmol/L Low 23 - 31 mmol/L [facility] Creatinine [Mass/Vol] 0.44 mg/dL Low 0.57 - 1.11 mg/dL [facility] GFR/1.73 sq M.predicted (S/P/Bld) [Vol rate/Area] - PINF [facility] Comment on above: Calculation based on the Chronic Kidney Disease Epidemiology Collaboration (CKD-EPI) equation refit without adjustment for race Glucose [Mass/Vol] 109 mg/dL 82 - 115 mg/dL [facility] Interpretation and review of laboratory results Abnormal [facility] Potassium [Moles/Vol] 3.6 mmol/L 3.5 - 5.1 mmol/L [facility] Comment on above: Plasma potassium dede ues may be up to 0.5 mmol/L lower than serum values. Protein [Mass/Vol] 5.7 g/dL Low 6.4 - 8.3 g/dL [facility] Sodium [Moles/Vol] 133 mmol/L Low 136 - 145 mmol/L [facility] Urea nitrogen [Mass/Vol] 9 mg/dL 9 - 23 mg/dL [facility] Consulton 05-12-2025 Consult Normal [facility] Laboratory - Drug toxicology Ordered By: Denis White on 05-12-2025 Phenytoin [Mass/Vol] 33.2 ug/mL Critically high 10.0 - 20.0 ug/mL [facility] No Panel Informationon 05-12 Camilo Puga MD 05/13/2025 7:20 PM EEG/VIDEO REPORT DEMOGRAPHICS PATIENT: MADAY ALFARO MEDICAL RECORD: [id number] DATE OF SERVICE: 2024 DATE OF : 42 AGE: 84 GENDER: Female HANDEDNESS: RIGHT DICTATING PHYSICIAN: Dr. Camargo REFERRING PHYSICIAN: Dr. Camargo EEG PARAMETER EEG TEST ?: [id number] EEG TEST TYPE: Inpatient routine 21-MINUTE EEG RECORDING. (8:26 AM-8:47 AM) HYDRAULIC PUNCH PRESS OPERATOR: Neo Mcadams 44 Channel EEG for data acquisition. EEG electrodes were positioned using the International 10-20 system. Montages used for EEG Data Analysis are I. Referential. II. Transverse. III. Bipolar. Time Emily: 0.1 second High frequency filter: 70 Hz Notch filter: 60 Hz Seconds per patient: 10 CLINICAL DATA EEG CLINICAL INDICATION: Dilantin toxicity NEUROLOGICAL HISTORY/DIAGNOSIS: 84-year-old woman with acute confusion, somnolence status. On admission her Dilantin (phenytoin) level was 49.6. On the day of this EEG phenytoin level is 33.6 MEDICAL HISTORY: Seizures Chronic insomnia Hypertension LEFT fracture femur LEFT hip fracture CURRENT PERTINENT MEDICATIONS: Aspirin 81 mg daily Dilantin 200 mg bid Acetaminophen 500 mg prn Oxycodone 5 mg prn Melatonin 5 mg qhs/temazepam 15 mg qhs Sertraline 100 mg qam Fosamax 70 mg/week Vitamin D2 50,000 units weekly MENTAL STATUS PRESENTATION: Alert, drowsy, lethargic. EEG INTERPRETATION BACKGROUND EEG ACTIVITY Posterior dominant rhythm: Delta rhythm; 6 Hz Frequency variability (CAPE): PRESENT Frequency symmetry: Symmetric Occipitally prominent: Yes A-P gradient with posterior rhythm dominance: Present Anterior rhythm dominance: Absent Amplitude: Normal >10 V Amplitude variability: PRESENT Amplitude symmetry: Symmetric Continuity of background rhythm: Continuous Rhythmicity: Present Synchronicity: Present State changes: Present with normal stage II sleep transients. Evidence of skull defect with breach rhythm: Absent NORMAL EEG VARIANT WAVES: Absent ABNORMAL EEG WAVES: Absent INTERICTAL EPILEPTIFORM DISCHARGES: Absent ACTIVATION PROCEDURES EYE OPENING/CLOSING elicits transient bilateral frontotemporal attenuation of the EEG activity. HYPERVENTILATION is not performed. INTERMITTENT PHOTIC STIMULATION IS not performed. ARTIFACTS: Not significant. EKG: Normal sinus rhythm,. EEG-NEUROPHYSIOLOGICAL IMPRESSION/ EEG-CLINICAL CORRELATION This is an ABNORMAL AWAKE & DROWSY INPATIENT EEG. The posterior dominant delta rhythm 6 Hz is seen throughout the awakened portion of this EEG recording. Generalized slowing of the background activity reflects a mildly severe diffuse cortical dysfunction which can be seen with toxic-metabolic/system ic causes, consistent with Dilantin (phenytoin) toxicity There are no abnormal EEG rhythms. There are no abnormal EEG wave-complexes. There are no focal/lateralizing EEG abnormalities. There are no ictal or interictal epileptiform discharges & no clinical seizures are seen on video. MIKALA Camargo MD NEUROLOGIST [facility] No Panel InformationOrdered By: Denis White on 05-12-2025 Interpretation and review of laboratory results Abnormal [facility] Toxicity seen at concentrations >20.0 ug/mL [facility] PHENYTOIN TOTALon 05-12-2025 PHENYTOIN, TOTAL 33.2 ug/mL Critically high 10.0-20.0 [facility] Comment on above: Result Comment: ORDE R COMMENTS:Toxicity seen at concentrations >20.0 ug/mL Performed By: #### L AB31 ####Dispatch Lead: ORLIN DOMÍNGUEZ ([id number])[facility] (SBHLAB)[address] [place] [address] Progress Noteon 05-12-2025 Progress Note Normal [facility] Progress Note Normal [facility] Progress Note Nutrition rescreen completed. Pt referred to RD for malnutrition. Normal [facility] Progress Note Normal [facility] CBC (HEMOGRAM)on 05-11-2025 Erythrocyte distribution width (RBC) [Ratio] 17.9 % High 11.5-15.0 [facility] Comment on above: Performed By: #### L [id number] ####Dispatch Lead: ORLIN DOMÍNGUEZ ([id number])[facility]ITAL[facility] [place] (SBHLAB)[address] Hematocrit (Bld) [Volume fraction] 32.4 % Low 35.0-47.0 [facility] Comment on above: Performed By: #### L AB294 ####Dispatch Lead: ORLIN DOMÍNGUEZ ([id number])[facility]ITAL[facility] [place] (SBHLAB)[address] [place] [address] Hemoglobin (Bld) [Mass/Vol] 10.7 g/dL Low 11.7-16.0 [facility] Comment on above: Performed By: #### L AB294 ####Dispatch Lead: ORLIN DOMÍNGUEZ ([id number])[facility] [place] (SBHLAB)[address] [place] [address] MCH (RBC) [Entitic mass] 34.5 pg High 26.0-34.0 [facility] Comment on above: Performed By: #### L AB294 ####Dispatch Lead: ORLIN DOMÍNGUEZ ([id number])[facility] [place] (SBHLAB)[address] [place] [address] MCHC 33.0 % Normal 30.5-36.0 [facility] Comment on above: Performed By: #### L AB294 ####Dispatch Lead: ORLIN DOMÍNGUEZ ([id number])[facility] [place] (SBHLAB)[address] MCV (RBC) [Entitic vol] 104.5 fL High 77.0-99.0 [facility] Comment on above: Performed By: #### L AB294 ####Dispatch Lead: ORLIN DOMÍNGUEZ ([id number])FABIENNE [place] (SBHLAB)[address] Platelet mean volume (Bld) [Entitic vol] 9.6 fL Normal 9.0-12.7 [facility] Comment on above: Performed By: #### L AB294 ####Dispatch Lead: ORLIN DOMÍNGUEZ ([id number])F[facility]IENNE [place] (SBHLAB)[address] Platelets (Bld) [#/Vol] 204 10*3/uL Normal 140-440 [facility] Comment on above: Performed By: #### L AB294 ####Dispatch Lead: ORLIN DOMÍNGUEZ ([id number])[facility] [place] (SBHLAB)[address] RBC (Bld) [#/Vol] 3.10 10*6/uL Low 3.80-5.20 [facility] Comment on above: Performed By: #### L AB294 ####Dispatch Lead: ORLIN DOMÍNGUEZ ([id number])[facility] [place] (SBHLAB)[address] WBC (Bld) [#/Vol] 5.4 10*3/uL Normal 3.6-10.7 [facility] Comment on above: Performed By: #### L AB294 ####Dispatch Lead: ORLIN DOMÍNGUEZ ([id number])[facility] [place] (SBHLAB)[address] CBC panel Auto (Bld)on 05-11 Erythrocyte distribution width (RBC) [Ratio] 17.9 % High 11.5 - 15.0 % [facility] Hematocrit (Bld) [Volume fraction] 32.4 % Low 35.0 - 47.0 % [facility] Hemoglobin (Bld) [Mass/Vol] 10.7 g/dL Low 11.7 - 16.0 g/dL [facility] Interpretation and review of laboratory results Abnormal [facility] MCH (RBC) [Entitic mass] 34.5 pg High 26.0 - 34.0 pg [facility] MCHC (RBC) [Mass/Vol] 33 % 30.5 - 36.0 % [facility] MCV (RBC) [Entitic vol] 104.5 fL High 77.0 - 99.0 fL [facility] Platelet mean volume (Bld) [Entitic vol] 9.6 fL 9.0 - 12.7 fL [facility] Platelets (Bld) [#/Vol] 204 10*3/uL 140 - 440 10*3/uL [facility] RBC (Bld) [#/Vol] 3.1 10*6/uL Low 3.80 - 5.2 0 10*6/uL [facility] WBC (Bld) [#/Vol] 5.4 10*3/uL 3.6 - 10.7 10*3/uL [facility] COMPREHENSIVE METABOLIC PANE Jay 05-11-2025 Albumin [Mass/Vol] 3.0 g/dL Low 3.4-4.8 [facility] Comment on above: Performed By: #### L AB17, LAB69, LAB67, LAB18 ####Dispatch Lead: ORLIN DOMÍNGUZE ([id number])[facility]ITAL[facility] (SBHLAB)[address] ALP [Catalytic activity/Vol] 190 U/L High 40-150 [facility] Comment on above: Performed By: #### L AB17, LAB69, LAB67, LAB18 ####Dispatch Lead: ORLIN DOMÍNGUEZ ([id number])[facility] (SBHLAB)[address] ALT [Catalytic activity/Vol] 7 U/L Normal <30 [facility] Comment on above: Performed By: #### L AB17, LAB69, LAB67, LAB18 ####Dispatch Lead: ORLIN DOMÍNGUEZ ([id number])[facility] (SBHLAB)[address] Anion gap [Moles/Vol] 9 mmol/L Normal 3-13 [facility] Comment on above: Performed By: #### L AB17, LAB69, LAB67, LAB18 ####Dispatch Lead: ORLIN DOMÍNGUEZ ([id number])SUMMDeepti [place] (SBHLAB)[address] AST [Catalytic activity/Vol] 26 U/L Normal <34 [facility] Comment on above: Performed By: #### L AB17, LAB69, LAB67, LAB18 ####Dispatch Lead: ORLIN DOMÍNGUEZ ([id number])[facility] [place] (SBHLAB)[address] Bilirubin [Mass/Vol] 1.2 mg/dL High <1.2 [facility] Comment on above: Performed By: #### L AB17, LAB69, LAB67, LAB18 ####Dispatch Lead: ORLIN DOMÍNGUEZ ([id number])[facility] [place] (SBHLAB)[address] Calcium [Mass/Vol] 9.1 mg/dL Normal 8.8-10.0 [facility] Comment on above: Performed By: #### L AB17, LAB69, LAB67, LAB18 ####Dispatch Lead: ORLIN DOMÍNGUEZ ([id number])[facility] (SBHLAB)[address] Chloride [Moles/Vol] 102 mmol/L Normal 98-107 [facility] Comment on above: Performed By: #### L AB17, LAB69, LAB67, LAB18 ####Dispatch Lead: ORLIN DOMÍNGUEZ ([id number])[facility] (SBHLAB)[address] [place] [address] [place] CO2 [Moles/Vol] 23 mmol/L Normal 23-31 [facility] Comment on above: Performed By: #### L AB17, LAB69, LAB67, LAB18 ####Dispatch Lead: ORLIN DOMÍNGUEZ ([id number])[facility] (SBHLAB)[address] Creatinine [Mass/Vol] 0.44 mg/dL Low 0.57-1.11 [facility] Comment on above: Performed By: #### L AB17, LAB69, LAB67, LAB18 ####Dispatch Lead: ORLIN DOMÍNGUEZ ([id number])[facility] (SBHLAB)[address] GLOMERULAR FILTRATION RATE ML/MIN/1.73 SQ M.PREDICTED >90.0 Normal >60.0 [facility] Comment on above: Result Comment: Calc ulation based on the Chronic Kidney Disease Epidemiology Collaboration (CKD-EPI) equation refit without adjustment for race Performed By: #### L AB17, LAB69, LAB67, LAB18 ####Dispatch Lead: ORLIN DOMÍNGUEZ ([id number])[facility] (SBHLAB)[address] Glucose [Mass/Vol] 106 mg/dL Normal 82-115 [facility] Comment on above: Performed By: #### L AB17, LAB69, LAB67, LAB18 ####Dispatch Lead: ORLIN DOMÍNGUEZ ([id number])[facility] ([facility])[address] Potassium [Moles/Vol] 3.6 mmol/L Normal 3.5-5.1 [facility] Comment on above: Result Comment: [facility] potassium values may be up to 0.5 mmol/L lower than serum values. Performed By: #### L AB17, LAB69, LAB67, LAB18 ####Dispatch Lead: ORLIN DOMÍNGUEZ ([id number])[facility] (SBHLAB)[address] [place] [address] [place] Protein [Mass/Vol] 5.7 g/dL Low 6.4-8.3 [facility] Comment on above: Performed By: #### L AB17, LAB69, LAB67, LAB18 ####Dispatch Lead: ORLIN DOMÍNGUEZ ([id number])[facility] ([facility])[address] Sodium [Moles/Vol] 134 mmol/L Low 136-145 [facility] Comment on above: Performed By: #### L AB17, LAB69, LAB67, LAB18 ####Dispatch Lead: ORLIN DOMÍNGUEZ ([id number])[facility] ([facility])[address] Urea nitrogen [Mass/Vol] 10 mg/dL Normal - [facility] Comment on above: Performed By: #### L AB17, LAB69, LAB67, LAB18 ####Dispatch Lead: ORLIN DOMÍNGUEZ ([id number])[facility] ([facility])[address] HIP RIGHT WO IV CONTRASTo n 05-11-2025 CT HIP RIGHT WO IV CONTRAST Normal [facility] CT Hip - right WO contraston 05-11-2025 Impression: No evidence for acute fracture or dislocation. Diffuse osteopenia Report Dictated on Electronically Signed By: Osmar Blake MD Electronically Signed Date/Time: 05/11/2025 2:49 PM EDT [facility] Patient Name: MADAY ALFARO : 1940 Exam Date/Time: 05/11/2025 10:39 Procedure: CT HIP RIGHT WO IV CONTRAST Ordering Provider: BUNN CANDICE Reason For Exam: Hip pain, stress fracture suspected, neg xray Examination: CT HIP RIGHT WO IV CONTRAST Clinical: Hip pain, stress fracture suspected, neg xray Comparison: None Findings: Serial axial 1mm CT images obtained through the right hip without contrast. Coronal, axial and sagittal images reconstructed. Dose reduction was employed with automated exposure control. There is diffuse osteopenia. No evidence for acute fracture or dislocation is noted. There is joint space narrowing of the right hip with associated osteophyte formation of the femoral head. [facility] Osmar Blake MD - 05/11/2025 Patient Name: MADAY ALFARO : 1940 Exam Date/Time: 05/11/2025 10:39 Procedure: CT HIP RIGHT WO IV CONTRAST Ordering Provider: BUNN CANDICE Reason For Exam: Hip pain, stress fracture suspected, neg xray Examination: CT HIP RIGHT WO IV CONTRAST Clinical: Hip pain, stress fracture suspected, neg xray Comparison: None Findings: Serial axial 1mm CT images obtained through the right hip without contrast. Coronal, axial and sagittal images reconstructed. Dose reduction was employed with automated exposure control. There is diffuse osteopenia. No evidence for acute fracture or dislocation is noted. There is joint space narrowing of the right hip with associated osteophyte formation of the femoral head. IMPRESSION: Impression: No evidence for acute fracture or dislocation. Diffuse osteopenia Report Dictated on Electronically Signed By: Osmar Blake MD Electronically Signed Date/Time: 05/11/2025 2:49 PM EDT [facility] Radiology Study observation (narrative) [facility]th Cobalamin (Vitamin B12) [Mas s/Vol]on 05-11-2025 Interpretation and review of laboratory results Normal [facility] Comprehensive metabolic 1998 panelon 05-11-2025 Albumin [Mass/Vol] 3 g/dL Low 3.4 - 4.8 g/dL [facility] ALP [Catalytic activity/Vol] 190 U/L High 40 - 150 U/L [facility] ALT [Catalytic activity/Vol] 7 U/L NINF - 30 U/L [facility] Anion gap [Moles/Vol] 9 mmol/L 3 - 13 mmol/L [facility] AST [Catalytic activity/Vol] 26 U/L NINF - 34 U/L [facility] Bilirubin [Mass/Vol] 1.2 mg/dL High [facility] - 1.2 mg/dL [facility] Calcium [Mass/Vol] 9.1 mg/dL 8.8 - 10. 0 mg/dL [facility] Chloride [Moles/Vol] 102 mmol/L 98 - 10 7 mmol/L [facility] CO2 [Moles/Vol] 23 mmol/L 23 - 31 mmol/L [facility] Creatinine [Mass/Vol] 0.44 mg/dL Low 0.57 - 1.11 mg/dL [facility] GFR/1.73 sq M.predicted (S/P/Bld) [Vol rate/Area] - PINF [facility] Comment on above: Calculation based on the Chronic Kidney Disease Epidemiology Collaboration (CKD-EPI) equation refit without adjustment for race Glucose [Mass/Vol] 106 mg/dL 82 - 115 mg/dL [facility] Interpretation and review of laboratory results Abnormal [facility] Potassium [Moles/Vol] 3.6 mmol/L 3.5 - 5.1 mmol/L [facility] Comment on above: Plasma potassium dede ues may be up to 0.5 mmol/L lower than serum values. Protein [Mass/Vol] 5.7 g/dL Low 6.4 - 8.3 g/dL [facility] Sodium [Moles/Vol] 134 mmol/L Low 136 - 145 mmol/L [facility] Urea nitrogen [Mass/Vol] 10 mg/dL 9 - 23 mg/dL [facility] Consulton 05-11-2025 Consult Normal [facility] FOLATEon 05-11-2025 FOLATE RESULT 4.3 ng/mL Low 7.0-31.4 [facility] Comment on above: Result Comment: TCSi gnificant interference from hemolysis. Result integrity compromised. Interpret with caution. Performed By: #### L AB17, LAB69, LAB67, LAB18 ####Dispatch Lead: ORLIN DOMÍNGUEZ ([id number])[facility] ([facility])[address] [place] [address] Folate [Mass/Vol]on 05-11-20 Interpretation and review of laboratory results Abnormal [facility] HEMOGLOBIN A1Con 05-11-2025 Glucose [Mass/Vol] 77 mg/dL Normal [facility] Comment on above: Result Comment: CHERELLE Zepeda COMMENTS:HbA1c values of 5.7-6.4 percent indicate an increased risk for developing diabetes mellitus. HbA1c values greater than or equal to 6.5 percent are diagnostic of diabetes mellitus. For diagnosis of diabetes in individuals without unequivocal hyperglycemia, results should be confirmed by repeat testing. Performed By: #### L AB90 ####Dispatch Lead: ORLIN DOMÍNGUEZ ([id number])[facility] ([facility])[address] [place] [address] HEMOGLOBIN A1C 4.3 %HbA1C Normal <5.7 [facility] Comment on above: Result Comment: Norm al less than 5.7%Prediabetes 5.7% to 6.4%Diabetes 6.5% or higher--HgbA1C levels may not be accurate in patients who have renal disease, received recent blood transfusions, are anemic, or who have dyshemoglobinemia. Performed By: #### L AB90 ####Dispatch Lead: ORLIN DOMÍNGUEZ ([id number])[facility] [place] ([facility])[address] LIPID PANELon 05-11-2025 Cholesterol [Mass/Vol] 178 mg/dL Normal <200 [facility] Comment on above: Performed By: #### L AB17, LAB69, LAB67, LAB18 ####Dispatch Lead: ORLIN DOMÍNGUEZ ([id number])[facility] ([facility])[address] Cholesterol in HDL [Mass/Vol] 72 mg/dL Normal >=60 [facility] Comment on above: Performed By: #### L AB17, LAB69, LAB67, LAB18 ####Dispatch Lead: ORLIN DOMÍNGUEZ ([id number])[facility] [place] ([facility])[address] Cholesterol.total/Mary sterol in HDL [Mass ratio] 2 {ratio} Normal [facility] Comment on above: Result Comment: Ref Range:< 3 Low Risk for CHD3-6 Mod Risk for CHD> 6 High Risk for CHD Performed By: #### L AB17, LAB69, LAB67, LAB18 ####Dispatch Lead: ORLIN DOMÍNGUEZ ([id number])[facility] ([facility])[address] LOW DENSITY LIPOPROTEIN 96 mg/dL Normal 0-<100 [facility] Comment on above: Performed By: #### L AB17, LAB69, LAB67, LAB18 ####Dispatch Lead: ORLIN DOMÍNGUEZ ([id number])[facility] ([facility])[address] NON-HDL CHOLESTEROL, CALCULATED 106 Normal <130 [facility] Comment on above: Performed By: #### L AB17, LAB69, LAB67, LAB18 ####Dispatch Lead: ORLIN DOMÍNGUEZ ([id number])[facility] [place] ([facility])[address] Triglyceride [Mass/Vol] 50 mg/dL Normal <150 [facility] Comment on above: Performed By: #### L AB17, LAB69, LAB67, LAB18 ####Dispatch Lead: ORLIN DOMÍNGUEZ ([id number])[facility] [place] ([facility])[address] VERY LOW DENSITY LIPOPROTEIN, CALCULATED 10 mg/dL Normal <=30 [facility] Comment on above: Performed By: #### L AB17, LAB69, LAB67, LAB18 ####Dispatch Lead: ORLIN DOMÍNGUEZ ([id number])[facility] ([facility])[address] Laboratory - Chemistry and C hemistry - challengeon 05-11-2025 Cobalamin (Vitamin B12) [Mass/Vol] 349 pg/mL 213 - 816 pg/mL [facility] Comment on above: TC Significant interference from hemolysis. Result integrity compromised. Interpret with caution. Folate [Mass/Vol] 4.3 ng/mL Low 7.0 - 31.4 ng/mL [facility] Comment on above: TC Significant interference from hemolysis. Result integrity compromised. Interpret with caution. Average glucose Estimated from glycated hemoglobin (Bld) [Mass/Vol] 77 mg/dL [facility] Laboratory - Drug toxicology Ordered By: Micehal Lemus on 05-11-2025 Phenytoin [Mass/Vol] 36.6 ug/mL Critically high 10.0 - 20.0 ug/mL [facility] Laboratory - Hematology and Cell countson 05-11-2025 HbA1c (Bld) [Mass fraction] 4.3 % [facility] Comment on above: Normal less than 5.7 % Prediabetes 5.7% to 6.4% Diabetes 6.5% or higher --HgbA1C levels may not be accurate in patients who have renal disease, received recent blood transfusions, are anemic, or who have dyshemoglobinemia. Lipid 1996 panelon 5 Cholesterol [Mass/Vol] 178 mg/dL [facility] - 200 mg/dL [facility] Cholesterol in HDL [Mass/Vol] 72 mg/dL 60 - PINF mg/dL [facility] Cholesterol in LDL [Mass/Vol] 96 mg/dL 0 - <100 [facility] Cholesterol.total/Mary sterol in HDL [Mass ratio] 2 {ratio} [facility] Comment on above: Ref Range: < 3 Low Risk for CHD 3-6 Mod Risk for CHD > 6 High Risk for CHD NON-HDL CHOLESTEROL, CALCULATED 106 NINF - 130 [facility] Triglyceride [Mass/Vol] 50 mg/dL NINF - 150 mg/dL [facility] VERY LOW DENSITY LIPOPROTEIN, CALCULATED 10 mg/dL NINF - 30 mg/dL [facility] No Panel InformationOrdered By: Micheal Lemus on 05-11-2025 Interpretation and review of laboratory results Abnormal [facility] Toxicity seen at concentrations >20.0 ug/mL [facility] No Panel Informationon 05-11 [facility] HbA1c values of 5.7-6.4 percent indicate an increased risk for developing diabetes mellitus. HbA1c values greater than or equal to 6.5 percent are diagnostic of diabetes mellitus. For diagnosis of diabetes in individuals without unequivocal hyperglycemia, results should be confirmed by repeat testing. [facility] P Lott 35 degrees [facility] WA Interval 192 ms [facility] QRS Lott -60 degrees [facility] QRSD Interval [facility]val 415 ms [facility] QTC Interval 440 ms [facility] T Wave Lott 52 degrees [facility] Derick Reis MD - 05/11/2025 IMPRESSION: Sinus rhythm Left anterior fascicular block Abnormal R-wave progression, early transition Electronically Signed On 05-11-2025 01:13:38 EDT by Derick Reis [facility] PHENYTOIN TOTALon 05-11-2025 PHENYTOIN, TOTAL 36.6 ug/mL Critically high 10.0-20.0 [facility] Comment on above: Result Comment: CHERELLE Zepeda COMMENTS:Daily morning trough dilantin (total) level until order is stopped.Dr. Rosario PhersonToxicity seen at concentrations >20.0 ug/mL Performed By: #### L AB31 ####Dispatch Lead: ORLIN DOMÍNGUEZ ([id number])[facility] [place] ([facility])[address] Progress Noteon 05-11-2025 Progress Note Normal [facility] VITAMIN B12on 05-11-2025 Cobalamin (Vitamin B12) [Mass/Vol] 349 pg/mL Normal 213-816 [facility] Comment on above: Result Comment: TCSi gnificant interference from hemolysis. Result integrity compromised. Interpret with caution. Performed By: #### L AB17, LAB69, LAB67, LAB18 ####Dispatch Lead: ORLIN DOMÍNGUEZ ([id number])[facility] [place] ([facility])[address] Vital signson 05-11-2025 Heart rate 68 /min bpm [facility] CBC W Auto Differential pane l (Bld)Ordered By: Lane Manriquez on 05-10-2025 Basophils (Bld) [#/Vol] 0 10*3/uL 0.0 - 0.2 10*3/uL [employer] [place] Basophils/100 WBC (Bld) 0.3 % 0.0 - 2.0 % [facility] Eosinophils (Bld) [#/Vol] 0.1 10*3/uL 0.0 - 0.5 10*3/uL [employer] [place] Eosinophils/100 WBC (Bld) 0.9 % 0.0 - 6.0 % [facility] [place] Erythrocyte distribution width (RBC) [Ratio] 17.9 % High 11.5 - 15.0 % [employer] [facility] [employer] [place] Hematocrit (Bld) [Volume fraction] 35.5 % 35.0 - 47.0 % [employer] [facility] [employer] [place] Hemoglobin (Bld) [Mass/Vol] 11.7 g/dL 11.7 - 16.0 g/dL [facility] [place] Immature granulocytes (Bld) [#/Vol] 0 10*3/uL NINF - 0.1 10*3/uL [employer] [place] Immature granulocytes/100 WBC (Bld) 0.5 % 0.0 - 2.0 % [facility] [place] Interpretation and review of laboratory results Abnormal [facility] [place] Lymphocytes (Bld) [#/Vol] 0.7 10*3/uL Low 1.0 - 4.3 10*3/uL [employer] [place] Lymphocytes/100 WBC (Bld) 9.8 % Low 15.0 - 45.0 % [facility] MCH (RBC) [Entitic mass] 34.8 pg High 26.0 - 34.0 pg [facility] MCHC (RBC) [Mass/Vol] 33 % 30.5 - 36.0 % [facility] MCV (RBC) [Entitic vol] 105.7 fL High 77.0 - 99.0 fL [facility] Monocytes (Bld) [#/Vol] 1 10*3/uL High 0.0 - 0.9 10*3/uL [facility] Monocytes/100 WBC (Bld) 13 % 5.0 - 13.0 % [facility] Neutrophils (Bld) [#/Vol] 5.7 10*3/uL 1.8 - 7.5 10*3/uL [facility] Neutrophils/100 WBC (Bld) 75.5 % 38.0 - 82.0 % [facility] Nucleated RBC/100 WBC (Bld) [Ratio] 0 % [facility] Platelet mean volume (Bld) [Entitic vol] 9.4 fL 9.0 - 12.7 fL [facility] Platelets (Bld) [#/Vol] 215 10*3/uL 140 - 440 10*3/uL [facility] RBC (Bld) [#/Vol] 3.36 10*6/uL Low 3.80 - 5.2 0 10*6/uL [facility] WBC (Bld) [#/Vol] 7.6 10*3/uL 3.6 - 10.7 10*3/uL [facility] CBC WITH AUTO DIFFERENTIALon 05-10-2025 Basophils (Bld) [#/Vol] 0.0 10*3/uL Normal 0.0-0.2 [facility] Comment on above: Performed By: #### L [id number] ####Dispatch Lead: ORLIN DOMÍNGUEZ ([id number])[facility] [place] ([facility])[address] [place] [address] Basophils/100 WBC (Bld) 0.3 % Normal 0.0-2.0 [facility] Comment on above: Performed By: #### L [id number] ####Dispatch Lead: ORLIN DOMÍNGUEZ ([id number])[facility] ([facility])[address] Eosinophils (Bld) [#/Vol] 0.1 10*3/uL Normal 0.0-0.5 [facility] Comment on above: Performed By: #### L [id number] ####Dispatch Lead: ORLIN DOMÍNGUEZ ([id number])[facility] ([facility])[address] Eosinophils/100 WBC (Bld) 0.9 % Normal 0.0-6.0 [facility] Comment on above: Performed By: #### L [id number] ####Dispatch Lead: ORLIN DOMÍNGUEZ ([id number])[facility] ([facility])[address] [place] [address] Erythrocyte distribution width (RBC) [Ratio] 17.9 % High 11.5-15.0 [facility] Comment on above: Performed By: #### L [id number] ####Dispatch Lead: ORLIN DOMÍNGUEZ ([id number])[facility] ([facility])[address] [place] [address] Hematocrit (Bld) [Volume fraction] 35.5 % Normal 35.0-47.0 [facility] Comment on above: Performed By: #### L [id number] ####Dispatch Lead: ORLIN DOMÍNGUEZ ([id number])[facility])[address] [place] [address] Hemoglobin (Bld) [Mass/Vol] 11.7 g/dL Normal 11.7-16.0 [facility] Comment on above: Performed By: #### L [id number] ####Dispatch Lead: ORLIN DOMÍNGUEZ ([id number])[facility] ([facility])[address] IMMATURE GRANS % 0.5 % Normal 0.0-2.0 [facility] Comment on above: Performed By: #### L [id number] ####Dispatch Lead: ORLIN DOMÍNGUEZ ([id number])[facility] ([facility])[address] IMMATURE GRANS ABSOLUTE 0.0 10*3/uL Normal <0.1 [facility] Comment on above: Performed By: #### L [id number] ####Dispatch Lead: ORLIN GUILLORYANTOINETTE ([id number])[facility] [place] ([facility])[address] Lymphocytes (Bld) [#/Vol] 0.7 10*3/uL Low 1.0-4.3 [facility] Comment on above: Performed By: #### L [id number] ####Dispatch Lead: ORLIN DOMÍNGUEZ ([id number])[facility] [place] ([facility])[address] Lymphocytes/100 WBC (Bld) 9.8 % Low 15.0-45.0 [facility] Comment on above: Performed By: #### L [id number] ####Dispatch Lead: ORLIN DOMÍNGUEZ ([id number])[facility] [place] ([facility])[address] MCH (RBC) [Entitic mass] 34.8 pg High 26.0-34.0 [facility] Comment on above: Performed By: #### L [id number] ####Dispatch Lead: ORLIN GUILLORYANTOINETTE ([id number])[facility] [place] ([facility])[address] MCHC 33.0 % Normal 30.5-36.0 [facility] Comment on above: Performed By: #### L [id number] ####Dispatch Lead: ORLIN DOMÍNGUEZ ([id number])[facility] [place] ([facility])[address] MCV (RBC) [Entitic vol] 105.7 fL High 77.0-99.0 [facility] Comment on above: Performed By: #### L [id number] ####Dispatch Lead: ORLIN DOMÍNGUEZ ([id number])[facility] ([facility])[address] Monocytes (Bld) [#/Vol] 1.0 10*3/uL High 0.0-0.9 [facility] Comment on above: Performed By: #### L [id number] ####Dispatch Lead: ORLIN DOMÍNGUEZ ([id number])[facility] ([facility])[address] Monocytes/100 WBC (Bld) 13.0 % Normal 5.0-13.0 [facility] Comment on above: Performed By: #### L [id number] ####Dispatch Lead: ORLIN DOMÍNGUEZ ([id number])[facility] ([facility])[address] NEUTROPHILS ABSOLUTE 5.7 10*3/uL Normal 1.8-7.5 [facility] Comment on above: Performed By: #### L [id number] ####Dispatch Lead: ORLIN DOMÍNGUEZ ([id number])[facility] [place] ([facility])[address] Neutrophils/100 WBC (Bld) 75.5 % Normal 38.0-82.0 [facility] Comment on above: Performed By: #### L [id number] ####Dispatch Lead: ORLIN DOMÍNGUEZ ([id number])[facility] ([facility])[address] NRBC 0.0 /100 WBCs Normal 0.0-2.0 [facility] Comment on above: Performed By: #### L [id number] ####Dispatch Lead: ORLIN DOMÍNGUEZ ([id number])[facility] [place] ([facility])[address] [place] [address] [place] Platelet mean volume (Bld) [Entitic vol] 9.4 fL Normal 9.0-12.7 [facility] Comment on above: Performed By: #### L [id number] ####Dispatch Lead: ORLIN DOMÍNGUEZ ([id number])[facility] ([facility])[address] Platelets (Bld) [#/Vol] 215 10*3/uL Normal 140-440 [facility] Comment on above: Performed By: #### L [id number] ####Dispatch Lead: ORLIN DOMÍNGUEZ ([id number])[facility] [place] ([facility])[address] RBC (Bld) [#/Vol] 3.36 10*6/uL Low 3.80-5.20 [facility] Comment on above: Performed By: #### L [id number] ####Dispatch Lead: ORLIN DOMÍNGUEZ ([id number])[facility] [place] ([facility])[address] WBC (Bld) [#/Vol] 7.6 10*3/uL Normal 3.6-10.7 [facility] Comment on above: Performed By: #### L [id number] ####Dispatch Lead: ORLIN DOMÍNGUEZ ([id number])[facility] [place] ([facility])[address] COMPLETE URINALYSIS WITH REF FARHAT TO CULTURE 05-10-2025 AMORPHOUS CRYSTALS (#/HPF) IN URINE Few Abnormal Negative [facility] Comment on above: Performed By: #### L [id number] ####Dispatch Lead: ORLIN DOMÍNGUEZ ([id number])[facility] [place] ([facility])[address] BACTERIA (#/HPF) IN URINE Few Abnormal Negative [facility] Comment on above: Performed By: #### L [id number] ####Dispatch Lead: ORLIN DOMÍNGUEZ ([id number])[facility] [place] ([facility])[address] BILIRUBIN, TOTAL PRESENCE IN URINE Negative Normal Negative [facility] Comment on above: Performed By: #### L [id number] ####Dispatch Lead: ORLIN DOMÍNGUEZ ([id number])[facility] [place] ([facility])[address] Clarity (U) Turbid Abnormal Clear [facility] Comment on above: Performed By: #### L [id number] ####Dispatch Lead: ORLIN DOMÍNGUEZ ([id number])[facility] ([facility])[address] Color (U) Yellow Normal Lt. Yellow [facility] Comment on above: Performed By: #### L [id number] ####Dispatch Lead: ORLIN DOMÍNGUEZ ([id number])[facility] ([facility])[address] GLUCOSE (MG/DL) IN URINE Normal Normal Normal (<70) [facility] Comment on above: Performed By: #### L [id number] ####Dispatch Lead: ORLIN DOMÍNGUEZ ([id number])[facility] ([facility])[address] [place] [address] HEMOGLOBIN PRESENCE IN URINE 0.03 mg/dL Abnormal Negative [facility] Comment on above: Performed By: #### L [id number] ####Dispatch Lead: ORLIN DOMÍNGUEZ ([id number])[facility] ([facility])[address] [place] [address] HYALINE CASTS (#/LPF) IN URINE SEDIMENT BY MICROSCOPY 0-2 Abnormal Negative [facility] Comment on above: Performed By: #### L [id number] ####Dispatch Lead: ORLIN DOMÍNGUEZ ([id number])[facility] ([facility])[address] Ketones Ql (U) Negative Normal Negative [facility] Comment on above: Performed By: #### L [id number] ####Dispatch Lead: ORLIN DOMÍNGUEZ ([id number])[facility] ([facility])[address] [place] [address] LEUKOCYTE ESTERASE PRESENCE IN URINE BY TEST STRIP Negative Normal Negative [facility] Comment on above: Performed By: #### L [id number] ####Dispatch Lead: ORLIN DOMÍNGUEZ ([id number])[facility] [place] ([facility])[address] [place] [address] [place] MUCUS (#/LPF) IN URINE SEDIMENT Few Normal Negative [facility] Comment on above: Performed By: #### L [id number] ####Dispatch Lead: ORLIN DOMÍNGUEZ ([id number])[facility] ([facility])[address] NITRITE PRESENCE IN URINE Negative Normal Negative [facility] Comment on above: Performed By: #### L [id number] ####Dispatch Lead: ORLIN DOMÍNGUEZ ([id number])[facility] ([facility])[address] pH (U) 7.0 [pH] Normal 5.0-8.0 [facility] Comment on above: Performed By: #### L [id number] ####Dispatch Lead: ORLIN DOMÍNGUEZ ([id number])[facility] ([facility])[address] Protein (U) [Mass/Vol] Negative Normal Negative [facility] Comment on above: Performed By: #### L [id number] ####Dispatch Lead: ORLIN DOMÍNGUEZ ([id number])[facility] (HLAB)[address] RBC (#/HPF) IN URINE SEDIMENT 3-5 Abnormal 0-2 [facility] Comment on above: Performed By: #### L [id number] ####Dispatch Lead: ORLIN DOMÍNGUEZ ([id number])[facility] ([facility])[address] Specific gravity (U) [Rel density] 1.012 Normal 1.005-1.030 [facility] Comment on above: Result Comment: CHERELLE Zepeda COMMENTS:A specimen with <=10 WBC is not consistent with inflammation. This specimen will not reflex to a urine culture. Performed By: #### L [id number] ####Dispatch Lead: ORLIN DOMÍNGUEZ ([id number])[facility] [place] (SBHLAB)[address] SQUAMOUS EPITHELIAL CELLS (#/HPF) IN URINE SEDIMENT 0-2 Normal 3-5 [facility] Comment on above: Performed By: #### L [id number] ####Dispatch Lead: ORLIN DOMÍNGUEZ ([id number])[facility] [place] [facility] UROBILINOGEN (MG/DL) IN URINE 6 mg/dL Abnormal Normal (0-1) [facility] Comment on above: Performed By: #### L [id number] ####Dispatch Lead: ORLIN DOMÍNGUEZ ([id number])[facility] [place] [facility] WBC (LEUKOCYTE) (#/HPF) IN URINE SEDIMENT 3-5 Normal 0-5 [facility] Comment on above: Performed By: #### L [id number] ####Dispatch Lead: ORLIN DOMÍNGUEZ ([id number])[facility] [place] [facility] COMPREHENSIVE METABOLIC PANE Jay 05-10-2025 Albumin [Mass/Vol] 3.2 g/dL Low 3.4-4.8 [facility] Comment on above: Performed By: #### L [id number], [id number] ####Dispatch Lead: ORLIN DOMÍNGUEZ ([id number])[facility] [place] [facility] ALP [Catalytic activity/Vol] 211 U/L High 40-150 [facility] Comment on above: Performed By: #### L [id number], [id number] ####Dispatch Lead: ORLIN DOMÍNGUEZ ([id number])[facility] [place] ([facility])[address] ALT [Catalytic activity/Vol] 11 U/L Normal <30 [facility] Comment on above: Performed By: #### L [id number], LAB17 ####Dispatch Lead: ORLIN DOMÍNGUEZ ([id number])[facility] [place] ([facility])[address] Anion gap [Moles/Vol] 10 mmol/L Normal 3-13 [facility] Comment on above: Performed By: #### L [id number], LAB17 ####Dispatch Lead: ORLIN DOMÍNGUEZ ([id number])[facility] ([facility])[address] AST [Catalytic activity/Vol] 33 U/L Normal <34 [facility] Comment on above: Result Comment: TCPo tential interference from hemolysis Performed By: #### L [id number], LAB17 ####Dispatch Lead: ORLIN DOMÍNGUEZ ([id number])[facility] ([facility])[address] Bilirubin [Mass/Vol] 1.3 mg/dL High <1.2 [facility] Comment on above: Performed By: #### L [id number], LAB17 ####Dispatch Lead: ORLIN DOMÍNGUEZ ([id number])[facility] ([facility])[address] Calcium [Mass/Vol] 9.5 mg/dL Normal 8.8-10.0 [facility] Comment on above: Performed By: #### L [id number], LAB17 ####Dispatch Lead: ORLIN DOMÍNGUEZ ([id number])[facility] [place] ([facility])155 [place] [address] [place] Chloride [Moles/Vol] 98 mmol/L Normal 98-107 [facility] Comment on above: Performed By: #### L [id number], LAB17 ####Dispatch Lead: ORLIN DOMÍNGUEZ ([id number])[facility] [place] ([facility])155 [place] [address] [place] CO2 [Moles/Vol] 24 mmol/L Normal 23-[address] [facility] Comment on above: Performed By: #### L [id number], LAB17 ####Dispatch Lead: ORLIN DOMÍNGUEZ ([id number])[facility] [place] ([facility])[address] Creatinine [Mass/Vol] 0.61 mg/dL Normal 0.57-1.11 [facility] Comment on above: Performed By: #### L [id number], LAB17 ####Dispatch Lead: ORLIN DOMÍNGUEZ ([id number])[facility] [place] ([facility])155 [place] [address] [place] GLOMERULAR FILTRATION RATE ML/MIN/1.73 SQ M.PREDICTED 88.8 mL/min/1.73m*2 Normal >60.0 [facility] Comment on above: Result Comment: Calc ulation based on the Chronic Kidney Disease Epidemiology Collaboration (CKD-EPI) equation refit without adjustment for race Performed By: #### L [id number], LAB17 ####Dispatch Lead: ORLIN DOMÍNGUEZ ([id number])[facility] (SBHLAB)[address] Glucose [Mass/Vol] 209 mg/dL High 82-115 [facility] Comment on above: Performed By: #### L [id number], LAB17 ####Dispatch Lead: ORLIN DOMÍNGUEZ ([id number])[facility] Potassium [Moles/Vol] 4.3 mmol/L Normal 3.5-5.1 [facility] Comment on above: Result Comment: [facility] potassium values may be up to 0.5 mmol/L lower than serum values. Performed By: #### L [id number], LAB17 ####Dispatch Lead: ORLIN DOMÍNGUEZ ([id number])[facility] (SBHLAB)[address] [place] [address] [place] Protein [Mass/Vol] 6.4 g/dL Normal 6.4-8.3 [facility] Comment on above: Performed By: #### L [id number], LAB17 ####Dispatch Lead: ORLIN DOMÍNGUEZ ([id number])[facility] ([facility])[address] Sodium [Moles/Vol] 132 mmol/L Low 136-145 [facility] Comment on above: Performed By: #### L [id number], LAB17 ####Dispatch Lead: ORLIN DOMÍNGUEZ ([id number])[facility] ([facility])[address] Urea nitrogen [Mass/Vol] 12 mg/dL Normal 9-23 [facility] Comment on above: Performed By: #### L [id number], LAB17 ####Dispatch Lead: ORLIN DOMÍNGUEZ ([id number])[facility] ([facility])[address] CERVICAL SPINE WO IV CONT RASTon 05-10-2025 CT CERVICAL SPINE WO IV CONTRAST Normal [facility] CT Cervical spine WO contras ton 05-10-[address] evidence of acute fracture or traumatic subluxation of the cervical spine. 2. Age indeterminant mild superior endplate compression fracture deformity T2. 3. Trace pleural thickening versus pleural effusion on the left. Partial visualization of 2.0 x 1.5 cm nodule left lung apex medially. Fleischner Society Guidelines recommend chest CT evaluation. 4. Heterogeneous bulky thyroid gland with multiple nodules measuring up to at least 1.3 cm. Ultrasound recommended for incidental thyroid nodule on CT or MR: 1. Nodule equal to or greater than 1 cm in patients under 35 years old 2. Nodule equal to or greater than 1.5 cm in patients 35 years or older 3. Nodule with suspicious lymph nodes (enlarged, cystic, calcified, or hyperenhancing) 4. Nodule with local tissue invasion Patients with comorbidities or limited life expectancy do not require further evaluation of the thyroid nodule, unless it is warranted clinically, or specifically requested by the patient or referring physician. Reference: Merlin Oneal et al Managing incidental thyroid nodules detected on imaging: White paper of the ACR incidental thyroid findings committee J Am Rosemarie Radiol 2015;12:143-150. Report Dictated on Electronically Signed By: Chang Chun MD Electronically Signed Date/Time: 05/10/2025 7:37 PM [facility] Patient Name: MADAY ALFARO : 1940 [facility]#: [id number] Exam Date/Time: 05/10/2025 18:29 Procedure: CT CERVICAL SPINE WO IV CONTRAST Ordering Provider: CASTANEDA KEVIN Reason For Exam: Trauma/Injury to Neck CT CERVICAL SPINE WITHOUT CONTRAST CLINICAL INDICATION: Trauma/Injury to Neck. Cervical spine pain. TECHNIQUE: Serial axial CT images of the cervical spine were obtained without intravenous contrast. Coronal and sagittal reformatted images were also made available for interpretation. Dose reduction was employed with automated exposure control. COMPARISON: None FINDINGS: Limitations: Patient positioning. Osseous structures/interverteb ral discs: Cervical vertebral body heights are maintained. Trace anterolisthesis C3 over C4 and C4 over C5. Mild anterolisthesis C7 over T1. Atlantoaxial relationship and craniocervical junction appear intact. Moderate to severe degenerative disc disease most pronounced at C6-C7. Multilevel degenerative uncovertebral and facet hypertrophy with varying degrees of foraminal narrowing. Age indeterminate mild superior endplate compression fracture deformity T2. Paraspinal soft tissues tissues: Atherosclerotic calcifications. Heterogeneous bulky thyroid gland with multiple nodules measuring up to at least 1.3 cm Other: Biapical pleural-parenchymal scarring. Trace pleural thickening versus pleural effusion on the left. Partial visualization of 2.0 x 1.5 cm nodule left lung apex medially.. [facility] Pardeep Chun MD - 05/10/2025 Patient Name: MADAY ALFARO : 1940 Exam Date/Time: 05/10/2025 18:29 Procedure: CT CERVICAL SPINE WO IV CONTRAST Ordering Provider: CASTANEDA KEVIN Reason For Exam: Trauma/Injury to Neck CT CERVICAL SPINE WITHOUT CONTRAST CLINICAL INDICATION: Trauma/Injury to Neck. Cervical spine pain. TECHNIQUE: Serial axial CT images of the cervical spine were obtained without intravenous contrast. Coronal and sagittal reformatted images were also made available for interpretation. Dose reduction was employed with automated exposure control. COMPARISON: None FINDINGS: Limitations: Patient positioning. Osseous structures/interverteb ral discs: Cervical vertebral body heights are maintained. Trace anterolisthesis C3 over C4 and C4 over C5. Mild anterolisthesis C7 over T1. Atlantoaxial relationship and craniocervical junction appear intact. Moderate to severe degenerative disc disease most pronounced at C6-C7. Multilevel degenerative uncovertebral and facet hypertrophy with varying degrees of foraminal narrowing. Age indeterminate mild superior endplate compression fracture deformity T2. Paraspinal soft tissues tissues: Atherosclerotic calcifications. Heterogeneous bulky thyroid gland with multiple nodules measuring up to at least 1.3 cm Other: Biapical pleural-parenchymal scarring. Trace pleural thickening versus pleural effusion on the left. Partial visualization of 2.0 x 1.5 cm nodule left lung apex medially.. IMPRESSION: 1. No CT evidence of acute fracture or traumatic subluxation of the cervical spine. 2. Age indeterminant mild superior endplate compression fracture deformity T2. 3. Trace pleural thickening versus pleural effusion on the left. Partial visualization of 2.0 x 1.5 cm nodule left lung apex medially. Fleischner Society Guidelines recommend chest CT evaluation. 4. Heterogeneous bulky thyroid gland with multiple nodules measuring up to at least 1.3 cm. Ultrasound recommended for incidental thyroid nodule on CT or MR: 1. Nodule equal to or greater than 1 cm in patients under 35 years old 2. Nodule equal to or greater than 1.5 cm in patients 35 years or older 3. Nodule with suspicious lymph nodes (enlarged, cystic, calcified, or hyperenhancing) 4. Nodule with local tissue invasion Patients with comorbidities or limited life expectancy do not require further evaluation of the thyroid nodule, unless it is warranted clinically, or specifically requested by the patient or referring physician. Reference: Merlin Ortiz. et al Managing incidental thyroid nodules detected on imaging: White paper of the ACR incidental thyroid findings committee J Am Rosemarie Radiol 2015;12:143-150. Report Dictated on Electronically Signed By: Chang Chun MD Electronically Signed Date/Time: 05/10/2025 7:37 PM EDT [facility] Radiology Study observation (narrative) [facility] CT Cervical spine WO contras tOrdered By: Pardeep Chun on 05-10-2025 [facility] Work Phone: CT HEAD WO IV CONTRASTon CT HEAD WO IV CONTRAST Normal [facility] CT Head WO contraston 2024 1. Atrophy and evidence of small-vessel ischemic disease. This is not unusual for patient age. 2. No CT evidence of an acute intracranial process. Report Dictated on Electronically Signed By: Yasmnai Churchill MD Electronically Signed Date/Time: 05/10/2025 3:16 PM EDT [facility] Patient Name: MADAY ALFARO : 1940 [facility]#: [id number] Exam Date/Time: 05/10/2025 14:20 Procedure: CT HEAD WO IV CONTRAST Ordering Provider: PAINTER MERIWETHER Reason For Exam: Neuro deficit, acute, stroke suspected CLINICAL INFORMATION: Altered mental status. 3 mm axial cuts through the head are obtained without IV contrast. Dose reduction was employed with automated exposure control. The examination is compared to a previous study dated 06/22/2022. FINDINGS: The ventricles are within normal limits in respect to their size and configuration. There is no evidence of mass or mass-effect. There are no abnormal intra- or extra-axial fluid collections. No hemorrhage is identified. There is moderate cortical atrophy. Patchy low-attenuation is noted within the periventricular, deep, and subcortical white matter. There is no CT evidence of an acute infarct. Bone windows demonstrate no evidence of fracture and the visualized paranasal sinuses and mastoid air cells are clear. [facility] Yasmani Churchill MD - 05/10/2025 Patient Name: MADAY ALFARO : 1940 Exam Date/Time: 05/10/2025 14:20 Procedure: CT HEAD WO IV CONTRAST Ordering Provider: PAINTER MERIWETHER Reason For Exam: Neuro deficit, acute, stroke suspected CLINICAL INFORMATION: Altered mental status. 3 mm axial cuts through the head are obtained without IV contrast. Dose reduction was employed with automated exposure control. The examination is compared to a previous study dated 06/22/2022. FINDINGS: The ventricles are within normal limits in respect to their size and configuration. There is no evidence of mass or mass-effect. There are no abnormal intra- or extra-axial fluid collections. No hemorrhage is identified. There is moderate cortical atrophy. Patchy low-attenuation is noted within the periventricular, deep, and subcortical white matter. There is no CT evidence of an acute infarct. Bone windows demonstrate no evidence of fracture and the visualized paranasal sinuses and mastoid air cells are clear. IMPRESSION: 1. Atrophy and evidence of small-vessel ischemic disease. This is not unusual for patient age. 2. No CT evidence of an acute intracranial process. Report Dictated on Electronically Signed By: Yasmani Churchill MD Electronically Signed Date/Time: 05/10/2025 3:16 PM EDT [facility] Radiology Study observation (narrative) [facility] CT LUMBAR SPINE WO IV CONTRA STon 05-10-2025 CT LUMBAR SPINE WO IV CONTRAST Normal [facility] CT Lumbar spine WO contrasto n 05-10-[address] evidence of acute lumbar spine fracture or traumatic subluxation. 2. Degenerative spondylosis lumbar spine with level by level analysis detailed above. 3. 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 Abdominal aorta measures up to 3.0 cm. Reference: Recommended interval for initial follow-up imaging of ectatic aortas and aneurysms: Altagracia et al. JACR. 2013 Diameter Imaging interval 2.5-2.9 cm 5 y 3.0-3.4 cm 3 y 3.5-3.9 cm 2 y 4.0-4.4 cm 1 y 4.5-4.9 cm 6 mo 5.0-5.5 cm 3-6 mo Report Dictated on Electronically Signed By: Chang Chun MD Electronically Signed Date/Time: 05/10/2025 7:50 PM EDT [facility] Patient Name: MADAY ALFARO : 1940 Exam Date/Time: 05/10/2025 18:29 Procedure: CT LUMBAR SPINE WO IV CONTRAST Ordering Provider: CASTANEDA KEVIN Reason For Exam: Back trauma, no prior imaging (Age >= 16y) CT LUMBAR SPINE - WITH 3-D: CLINICAL INDICATION: Back trauma, no prior imaging (Age >= 16y). Lumbar spine pain. TECHNIQUE: Multidetector axial sequence was performed through the lumbar spine. Multiplanar reconstruction imaging was performed along with three-dimensional imaging by the radiologist on an independent workstation. Dose reduction was employed with automated exposure control. COMPARISON: CT abdomen pelvis 12/26/2018. FINDINGS: Limitations: Mild streak artifact. Osseous structures appear somewhat demineralized. Lumbar vertebral body heights are maintained. Trace anterolisthesis of L3 over L4. Subtle leftward scoliotic curvature centered at the L3-L4 level. A least moderate multilevel degenerative disc disease most pronounced at L4-L5 and L5-S1. T12-L1: Disc osteophyte complex with mild spinal stenosis. Degenerative ligamentous and facet hypertrophy with mild bilateral foraminal narrowing. L1-L2: Disc osteophyte complex with mild spinal stenosis. Degenerative ligamentous and facet hypertrophy with mild left greater than right foraminal narrowing. L2-L3: Disc osteophyte complex with moderate to severe spinal stenosis. Degenerative ligamentous and facet hypertrophy with moderate bilateral foraminal narrowing. L3-L4: Disc osteophyte complex with moderate to severe spinal stenosis. Degenerative ligamentous and facet hypertrophy with severe right and moderate left foraminal narrowing. L4-L5: Disc osteophyte complex with mild to moderate spinal stenosis. Degenerative ligamentous and facet hypertrophy with moderate bilateral foraminal narrowing. L5-S1: Disc osteophyte complex without significant spinal stenosis. Degenerative ligamentous and facet hypertrophy with moderate to severe left greater than right foraminal narrowing. Pelviectasis involving a left extrarenal pelvis also seen on prior. Diffuse thickening involving the adrenal glands. Atherosclerotic calcifications. 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 Trace left pleural effusion possibly loculated. Bibasilar atelectasis/scarring. Abdominal aorta measures up to 3.0 cm. [facility] Pardeep Chun MD - 05/10/2025 Patient Name: MADAY ALFARO : 1940 [facility]#: [id number] Exam Date/Time: 05/10/2025 18:29 Procedure: CT LUMBAR SPINE WO IV CONTRAST Ordering Provider: CASTANEDA KEVIN Reason For Exam: Back trauma, no prior imaging (Age >= 16y) CT LUMBAR SPINE - WITH 3-D: CLINICAL INDICATION: Back trauma, no prior imaging (Age >= 16y). Lumbar spine pain. TECHNIQUE: Multidetector axial sequence was performed through the lumbar spine. Multiplanar reconstruction imaging was performed along with three-dimensional imaging by the radiologist on an independent workstation. Dose reduction was employed with automated exposure control. COMPARISON: CT abdomen pelvis 12/26/2018. FINDINGS: Limitations: Mild streak artifact. Osseous structures appear somewhat demineralized. Lumbar vertebral body heights are maintained. Trace anterolisthesis of L3 over L4. Subtle leftward scoliotic curvature centered at the L3-L4 level. A least moderate multilevel degenerative disc disease most pronounced at L4-L5 and L5-S1. T12-L1: Disc osteophyte complex with mild spinal stenosis. Degenerative ligamentous and facet hypertrophy with mild bilateral foraminal narrowing. L1-L2: Disc osteophyte complex with mild spinal stenosis. Degenerative ligamentous and facet hypertrophy with mild left greater than right foraminal narrowing. L2-L3: Disc osteophyte complex with moderate to severe spinal stenosis. Degenerative ligamentous and facet hypertrophy with moderate bilateral foraminal narrowing. L3-L4: Disc osteophyte complex with moderate to severe spinal stenosis. Degenerative ligamentous and facet hypertrophy with severe right and moderate left foraminal narrowing. L4-L5: Disc osteophyte complex with mild to moderate spinal stenosis. Degenerative ligamentous and facet hypertrophy with moderate bilateral foraminal narrowing. L5-S1: Disc osteophyte complex without significant spinal stenosis. Degenerative ligamentous and facet hypertrophy with moderate to severe left greater than right foraminal narrowing. Pelviectasis involving a left extrarenal pelvis also seen on prior. Diffuse thickening involving the adrenal glands. Atherosclerotic calcifications. 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 Trace left pleural effusion possibly loculated. Bibasilar atelectasis/scarring. Abdominal aorta measures up to 3.0 cm. IMPRESSION: 1. No CT evidence of acute lumbar spine fracture or traumatic subluxation. 2. Degenerative spondylosis lumbar spine with level by level analysis detailed above. 3. 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 Abdominal aorta measures up to 3.0 cm. Reference: Recommended interval for initial follow-up imaging of ectatic aortas and aneurysms: williams Frias. JACR. 2013 Diameter Imaging interval 2.5-2.9 cm 5 y 3.0-3.4 cm 3 y 3.5-3.9 cm 2 y 4.0-4.4 cm 1 y 4.5-4.9 cm 6 mo 5.0-5.5 cm 3-6 mo Report Dictated on Electronically Signed By: Chang Chun MD Electronically Signed Date/Time: 05/10/2025 7:50 PM EDT [facility] Radiology Study observation (narrative) [facility] CT THORACIC SPINE WO IV CONT RASTon 05-10-2025 CT THORACIC SPINE WO IV CONTRAST Normal [facility] CT Thoracic spine WO contras ton 05-10-2025 1. Superior endplate compression T2, age indeterminate. 2. Osteopenia. 3. Small left pleural effusion. 4. 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 follow-up 3-6 months. 5. Left lung apex medial irregular 1.5 cm nodule. Recommend pulmonary follow-up. Recommend PET/CT, biopsy or CT CHEST followup in 3 months. There is no comparison exam. 6. Emphysema. 7. Additional findings, as above. Refer to same day CT cervical spine and CT lumbar spine. Report Dictated on Electronically Signed By: Destiny Garcia MD Electronically Signed Date/Time: 05/10/2025 8:08 PM EDT [facility] Patient Name: MADAY ALFARO : 1940 [facility]#: [id number] Exam Date/Time: 05/10/2025 18:29 Procedure: CT THORACIC SPINE WO IV CONTRAST Ordering Provider: CASTANEDA KEVIN Reason For Exam: Back trauma, no prior imaging (Age >= 16y) CT THORACIC SPINE: Clinical Indication: Back trauma. Fall. Altered mental status. Imaging Technique: Multiple axial 1mm CT images of the thoracic spine were obtained. Coronal and sagittal reconstructs were rendered. Dose reduction was employed with automated exposure control. Comparison: CT abdomen and pelvis 05/01/2014 FINDINGS: Superior endplate compression T2, age indeterminate. There is mild anterolisthesis C7-T1. There is no central canal stenosis. There is partial visualization of aneurysmal distention of the descending intrathoracic aorta which measures 5.6 cm in transverse axial dimension. Atherosclerotic calcifications are present. A small left pleural effusion is present with compressive atelectasis and or infiltrates. A small sliding-type hiatal hernia is present. Centrilobular emphysema is present. There is an approximate 1.5 cm nodule within the left lung apex medially which is irregular. [facility] Destiny Garcia MD - 05/10/2025 Patient Name: MADAY ALFARO : 1940 [facility]#: [id number] Exam Date/Time: 05/10/2025 18:29 Procedure: CT THORACIC SPINE WO IV CONTRAST Ordering Provider: CASTANEDA KEVIN Reason For Exam: Back trauma, no prior imaging (Age >= 16y) CT THORACIC SPINE: Clinical Indication: Back trauma. Fall. Altered mental status. Imaging Technique: Multiple axial 1mm CT images of the thoracic spine were obtained. Coronal and sagittal reconstructs were rendered. Dose reduction was employed with automated exposure control. Comparison: CT abdomen and pelvis 05/01/2014 FINDINGS: Superior endplate compression T2, age indeterminate. There is mild anterolisthesis C7-T1. There is no central canal stenosis. There is partial visualization of aneurysmal distention of the descending intrathoracic aorta which measures 5.6 cm in transverse axial dimension. Atherosclerotic calcifications are present. A small left pleural effusion is present with compressive atelectasis and or infiltrates. A small sliding-type hiatal hernia is present. Centrilobular emphysema is present. There is an approximate 1.5 cm nodule within the left lung apex medially which is irregular. IMPRESSION: 1. Superior endplate compression T2, age indeterminate. 2. Osteopenia. 3. Small left pleural effusion. 4. 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 follow-up 3-6 months. 5. Left lung apex medial irregular 1.5 cm nodule. Recommend pulmonary follow-up. Recommend PET/CT, biopsy or CT CHEST followup in 3 months. There is no comparison exam. 6. Emphysema. 7. Additional findings, as above. Refer to same day CT cervical spine and CT lumbar spine. Report Dictated on Electronically Signed By: Destiny Garcia MD Electronically Signed Date/Time: 05/10/2025 8:08 PM EDT [facility] Radiology Study observation (narrative) [facility] metabolic 1998 panelon 05-10-2025 Albumin [Mass/Vol] 3.2 g/dL Low 3.4 - 4.8 g/dL [facility] ALP [Catalytic activity/Vol] 211 U/L High 40 - 150 U/L [facility] ALT [Catalytic activity/Vol] 11 U/L NINF - 30 U/L [facility] Anion gap [Moles/Vol] 10 mmol/L 3 - 13 mmol/L [facility] AST [Catalytic activity/Vol] 33 U/L [facility] - 34 U/L [facility] Comment on above: TC Potential interference from hemolysis Bilirubin [Mass/Vol] 1.3 mg/dL High NINF - 1.2 mg/dL [facility] Calcium [Mass/Vol] 9.5 mg/dL 8.8 - 10. 0 mg/dL [facility] Chloride [Moles/Vol] 98 mmol/L 98 - 10 7 mmol/L [facility] CO2 [Moles/Vol] 24 mmol/L 23 - 31 mmol/L [facility] Creatinine [Mass/Vol] 0.61 mg/dL 0.57 - 1.11 mg/dL [facility] GFR/1.73 sq M.predicted (S/P/Bld) [Vol rate/Area] 88.8 mL/min - PINF [facility] Comment on above: Calculation based on the Chronic Kidney Disease Epidemiology Collaboration (CKD-EPI) equation refit without adjustment for race Glucose [Mass/Vol] 209 mg/dL High 82 - 115 mg/dL [facility] Interpretation and review of laboratory results Abnormal [facility] Potassium [Moles/Vol] 4.3 mmol/L 3.5 - 5.1 mmol/L [facility] Comment on above: Plasma potassium dede ues may be up to 0.5 mmol/L lower than serum values. Protein [Mass/Vol] 6.4 g/dL 6.4 - 8.3 g/dL [facility] Sodium [Moles/Vol] 132 mmol/L Low 136 - 145 mmol/L [facility] Urea nitrogen [Mass/Vol] 12 mg/dL 9 - 23 mg/dL [facility] ECG 12-LEADon 05-10-2025 ECG 12-LEAD IMPRESSION: Sinus rhythm Left anterior fascicular block Anteroseptal infarct, age indeterminate Electronically Signed On 05-10-2025 20:31:48 EDT by Derick Reis [facility] ED Nursing Noteon 05-10-2025 ED Nursing Note Martin of Annemarie spence called back on Ashley RN on phone confirmed 200 mg of Dilantin 2x a day Normal [facility] ED Nursing Note Jessica applied. Pt tolerated without difficulty. Normal [facility] ED Nursing Note Last known well per family a couple days ago. [facility] ED Nursing Note Dr Castaneda at bedside. [facility] ED Nursing Note Dr Painter at bedside. [facility] ED Nursing Note Introduced myself as pt liaison and explained role and provided support to family , pt arrived via EMS. Normal [facility] ED Nursing Note Normal [facility] ED Provider Noteon ED Provider Note Normal [facility] HIGH SENSITIVITY TROPONIN, S ERIAL BASELINEon 05-10-2025 TROPONIN HS SERIAL BASELINE <3 Normal <=14 [facility] Comment on above: Result Comment: In i ndividuals presenting with symptoms > 2h, a baseline troponin <= 5 ng/L suggests acutecardiac injury is unlikely and further serial testing is generally not indicated. Performed By: #### L [id number], [id number] ####Dispatch Lead: ORLIN DOMÍNGUEZ ([id number])[facility] ([address] HIGH SENSITIVITY TROPONIN, S ERIAL, SECOND TESTon 05-10-2025 2H TROPONIN HS (SERIAL 2ND TROPONIN) <3 Normal <=14 [facility] Comment on above: Result Comment: Delt a value was unable to be calculated as both baseline and serial troponin tests were below the level of quantitation. As both baseline and 2h troponin values are below the level of quantitation, acute cardiac injury is unlikely. Performed By: #### L [id number] ####Dispatch Lead: ORLIN DOMÍNGUEZ ([id number])SUMMDeepti [facility]ICKETT (SBHL[facility])[address] LACTIC ACID WITH REFLEXon Lactate [Moles/Vol] 1.6 mmol/L Normal 0.5-2.2 [facility] Comment on above: Performed By: #### L [id number] ####Dispatch Lead: ORLIN DOMÍNGUEZ ([id number])[facility] (SBHLAB)[address] Laboratory - Chemistry and C hemistry - challengeon 05-10-2025 Lactate [Moles/Vol] 1.6 mmol/L 0.5 - 2. 2 mmol/L [facility] Glucose [Mass/Vol] 200 mg/dL High 70 - 100 mg/dL [facility] Laboratory - Coagulationon 0 05-10-2025 aPTT Coag (PPP) [Time] 29.8 s 20.0 - 30.5 s [facility] INR Coag (PPP) [Relative time] 1 {INR} 0.9 - 1.1 [facility] Comment on above: Recommended Anticoag ulant Therapy: SEE BELOW ----- INR of 2.0 - 3.0 : - Prophylaxis of Venous Thrombosis (high-risk surgery) - Treatment of Venous Thrombosis - Treatment of Pulmonary Embolism (Includes tissue heart valves, Acute Myocardial Infarction to prevent systemic embolism, Valvular Heart Disease, and Atrial Fibrillation) ----- INR of 2.5 - 3.5 : - Mechanical Prosthetic Valves (high risk) - If oral anticoagulant therapy is used to prevent Myocardial Infarction PT Coag (Bld) [Time] 10.9 s 9.0 - 12.0 s [facility] Laboratory - Drug toxicology Ordered By: Karmen Aleman on 05-10-2025 Phenytoin [Mass/Vol] 49.6 ug/mL Critically high 10.0 - 20.0 ug/mL [facility] No Panel InformationOrdered By: Derick Reis on 05-10-2025 Heart Rate 63 bpm [facility] Work Phone: P Lott 0 degrees [facility] Work Phone: WA Interval 181 ms [facility] Work Phone: QRS Lott -63 degrees [facility] Work Phone: QRSD Interval 93 ms [facility] Work Phone: QT Interval 407 ms [facility] Work Phone: QTC Interval 418 ms [facility] Work Phone: T Wave Lott 59 degrees [facility] Work Phone: [facility] Work Phone: No Panel Informationon 05-10 Sinus rhythm Left anterior fascicular block Anteroseptal infarct, age indeterminate Electronically Signed On 05-10-2025 20:31:48 EDT by Derick Reis CV Derick Peres MD - 05/10/2025 IMPRESSION: Sinus rhythm Left anterior fascicular block Anteroseptal infarct, age indeterminate Electronically Signed On 05-10-2025 20:31:48 EDT by Derick Reis [facility] 2h Troponin HS (Serial 2nd Troponin) ng/L NINF - 14 ng/L [facility] Comment on above: Delta value was unab le to be calculated as both baseline and serial troponin tests were below the level of quantitation. As both baseline and 2h troponin values are below the level of quantitation, acute cardiac injury is unlikely. Interpretation and review of laboratory results Normal [facility] Interpretation and review of laboratory results Normal [facility] Troponin HS Serial Baseline ng/L [facility] - [facility] ng/L [facility] Comment on above: In individuals prese nting with symptoms > 2h, a baseline troponin <= 5 ng/L suggests acute cardiac injury is unlikely and further serial testing is generally not indicated. [facility] Interpretation and review of laboratory results Normal [facility] Interpretation and review of laboratory results Normal [facility] Interpretation and review of laboratory results Abnormal [facility] Performed by: Fabienne Pickett, [address] [place] [address] [place] [address] CLIA ID: [id number] [facility] No Panel InformationOrdered By: Karmen Aleman on 05-10-2025 Interpretation and review of laboratory results Abnormal [facility] Toxicity seen at concentrations >20.0 ug/mL [facility] PHENYTOIN TOTALon 05-10-2025 PHENYTOIN, TOTAL 49.6 ug/mL Critically high 10.0-20.0 [facility] Comment on above: Result Comment: HCERELLE R COMMENTS:Toxicity seen at concentrations >20.0 ug/mL Performed By: #### L [id number] ####Dispatch Lead: ORLIN DOMÍNGUEZ ([id number])[facility]ITALDeepti [facility] ([facility])[address] [place] [address] PROTIME AND APTTon aPTT Coag (Bld) [Time] 29.8 s Normal 20.0-30.5 [facility] Comment on above: Performed By: #### L [id number] ####Dispatch Lead: ORLIN DOMÍNGUEZ ([id number])[facility]ITAL[facility]res[facility] ([facility])[address] [place] [address] INR Coag (PPP) [Relative time] 1.0 {INR} Normal 0.9-1.1 [facility] Comment on above: Result Comment: Jono mmended Anticoagulant Therapy: SEE BELOW----- INR of 2.0 - 3.0 : - Prophylaxis of Venous Thrombosis (high-risk surgery) - Treatment of Venous Thrombosis - Treatment of Pulmonary Embolism (Includes tissue heart valves, Acute Myocardial Infarction to prevent systemic embolism, Valvular Heart Disease, and Atrial Fibrillation)----- INR of 2.5 - 3.5 : - Mechanical Prosthetic Valves (high risk) - If oral anticoagulant therapy is used to prevent Myocardial Infarction Performed By: #### L [id number] ####Dispatch Lead: ORLIN DOMÍNGUEZ ([id number])[facility]ITAL[facility]resenc[facility] ([facility])[address] [place] [address] PT Coag (PPP) [Time] 10.9 s Normal 9.0-12.0 [facility] Comment on above: Performed By: #### L [id number] ####Dispatch Lead: ORLIN DOMÍNGUEZ ([id number])[facility]ITALD[facility]i [facility] ([facility])[address] [place] [address] Urinalysis complete panel (U )Ordered By: Horace Duarte on 05-10-2025 Amorphous Crystals, Urine Few Abnormal Negative /HPF [facility] Bacteria LM.HPF (Urine sed) [#/Area] Few Abnormal Negative /HPF [facility] Bilirubin Ql (U) Negative Negative mg/dL [facility] Clarity (U) Turbid Abnormal Clear [facility] Color (U) Yellow Lt. Yellow [facility] Epithelial cells.squamous LM.HPF (Urine sed) [#/Area] 0-2 [facility] Glucose Ql (U) Normal Normal (<70) mg/dL [facility] Hemoglobin Ql (U) 0.03 mg/dL Abnormal Negative [facility] ealth Hyaline casts Auto (Urine sed) [#/Area] 0-2 Abnormal Negative /LPF [facility] Interpretation and review of laboratory results Abnormal [facility] Ketones (U) [Mass/Vol] Negative Negat lima mg/dL [facility] Leukocyte esterase Test strip Ql (U) Negative Negative Dawit/uL [facility] Mucus LM.HPF (Urine sed) [#/Area] Few Negative /LPF [facility] Nitrite Ql (U) Negative Negative [facility] th pH (U) 7.0 [pH] 5.0 - 8.0 pH [facility] Protein (U) [Mass/Vol] Negative Negat lima mg/dL [facility] RBC LM.HPF (Urine sed) [#/Area] 3-5 Abnormal [facility] Specific gravity (U) [Rel density] 1.012 1.005 - 1.030 [facility] Urobilinogen (U) [Mass/Vol] 6 mg/dL Abnormal Normal (0-1) [facility] WBC LM.HPF (Urine sed) [#/Area] 3-5 [facility] A specimen with <=10 WBC is not consistent with inflammation. This specimen will not reflex to a urine culture. [facility] XR Chest Single viewon 05-10 1. No focal infiltrates. Report Dictated on Electronically Signed By: Yasmani Churchill MD Electronically Signed Date/Time: 05/10/2025 3:16 PM EDT [facility] RADIOLOGY SYSTEM Patient Name: MADAY ALFARO : 1940 Exam Date/Time: 05/10/2025 14:36 Procedure: XR CHEST 1 VIEW Ordering Provider: CASTANEDA KEVIN Reason For Exam: ams, fall CLINICAL INFORMATION: Altered mental status. Fall. Portable view of the chest at 1435 hours is provided and compared with a previous study dated 04/21/2025. FINDINGS: The thoracic aorta is tortuous and ectatic. This is unchanged. The cardiac silhouette and mediastinum are otherwise within normal limits. The lungs are free of infiltrate or pleural effusion. The visualized bones and soft tissues are grossly unremarkable. [facility] RAD[facility] Yasmani Churchill MD - 05/10/2025 Patient Name: MADAY ALFARO : 1940 Exam Date/Time: 05/10/2025 14:36 Procedure: XR CHEST 1 VIEW Ordering Provider: CASTANEDA KEVIN Reason For Exam: ams, fall CLINICAL INFORMATION: Altered mental status. Fall. Portable view of the chest at 1435 hours is provided and compared with a previous study dated 04/21/2025. FINDINGS: The thoracic aorta is tortuous and ectatic. This is unchanged. The cardiac silhouette and mediastinum are otherwise within normal limits. The lungs are free of infiltrate or pleural effusion. The visualized bones and soft tissues are grossly unremarkable. IMPRESSION: 1. No focal infiltrates. Report Dictated on Electronically Signed By: Yasmani Churchill MD Electronically Signed Date/Time: 05/10/2025 3:16 PM EDT [facility] Radiology Study observation (narrative) [facility] XR Chest Single viewOrdered By: Yasmani Churchill on 05-10-2025 [facility] [employer] Work Phone: XR Hand - left 3 Viewson No evidence for acute fracture or dislocation. Degenerative changes of the hand and wrist Report Dictated on Electronically Signed By: Osmar Blake MD Electronically Signed Date/Time: 05/10/2025 2:50 PM EDT [facility] Patient Name: MADAY ALFARO : 1940 Exam Date/Time: 05/10/2025 14:36 Procedure: XR HAND 3+ VIEWS LEFT Ordering Provider: CASTANEDA KEVIN Reason For Exam: fall, hematoma vs gout LEFT HAND CLINICAL INDICATION: fall, hematoma vs gout Diagnosis Description: Diagnosis Description: AP, lateral, and oblique plain film views of the left hand were obtained. COMPARISON: None FINDINGS: There is diffuse osteopenia. The trapezium bone is not visualized, presumably surgically absent. There is joint space narrowing of the radiocarpal joint. Calcification is noted distal to the ulna. No fracture or dislocation of the left hand is identified. There is no abnormal soft tissue swelling or radiopaque foreign body. There is mild loss of joint space and degenerative spurring of the interphalangeal joints of the left hand diffusely. [facility] RADI[facility] Osmar Blake MD - 05/10/2025 Patient Name: MADAY ALFARO : 1940 Exam Date/Time: 05/10/2025 14:36 Procedure: XR HAND 3+ VIEWS LEFT Ordering Provider: CASTANEDA KEVIN Reason For Exam: fall, hematoma vs gout LEFT HAND CLINICAL INDICATION: fall, hematoma vs gout Diagnosis Description: Diagnosis Description: AP, lateral, and oblique plain film views of the left hand were obtained. COMPARISON: None FINDINGS: There is diffuse osteopenia. The trapezium bone is not visualized, presumably surgically absent. There is joint space narrowing of the radiocarpal joint. Calcification is noted distal to the ulna. No fracture or dislocation of the left hand is identified. There is no abnormal soft tissue swelling or radiopaque foreign body. There is mild loss of joint space and degenerative spurring of the interphalangeal joints of the left hand diffusely. IMPRESSION: No evidence for acute fracture or dislocation. Degenerative changes of the hand and wrist Report Dictated on Electronically Signed By: Osmar Blake MD Electronically Signed Date/Time: 05/10/2025 2:50 PM EDT [facility] Radiology Study observation (narrative) [facility] XR Hand - left 3 ViewsOrdere d By: Osmar Blake on 05-10-2025 [employer] Work Phone: XR Hip - right 3 Viewson FINDINGS AND IMPRESSION: 1. There is subtle lucency of the right proximal femur transcervical region which may reflect a nondisplaced fracture versus artifact. CT is recommended given the patient's clinical symptoms. 2. Redemonstration of the comminuted left proximal femur intertrochanteric fracture with avulsion of the lesser trochanter status post open reduction internal fixation with intramedullary ras and proximal interlocking screws (acute fracture 04/21/2025). Report Dictated on Electronically Signed By: Destiny Garcia MD Electronically Signed Date/Time: 05/10/2025 6:08 PM [facility] RADIOLOGY SYSTEM Patient Name: MADAY ALFARO : 1940 Exam Date/Time: 05/10/2025 17:25 Procedure: XR HIP 2 OR 3 VW RIGHT Ordering Provider: BUNN CANDICE Reason For Exam: fall - decreased ability to bear weight. Gender: Female Age: 84 years History: fall - decreased ability to bear weight. Exam: XR HIP 2 OR 3 VW RIGHT INDICATION: Pain after a fall. VIEWS: AP pelvis, right hip AP, right hip frog leg lateral view COMPARISON: 04/21/2025 [facility] hip and pelvis [facility] Destiny Garcia MD - 05/10/2025 Patient Name: MADAY ALFARO : 1940 Exam Date/Time: 05/10/2025 17:25 Procedure: XR HIP 2 OR 3 VW RIGHT Ordering Provider: BUNN CANDICE Reason For Exam: fall - decreased ability to bear weight. Gender: Female Age: 84 years History: fall - decreased ability to bear weight. Exam: XR HIP 2 OR 3 VW RIGHT INDICATION: Pain after a fall. VIEWS: AP pelvis, right hip AP, right hip frog leg lateral view COMPARISON: 04/21/2025 left hip and pelvis IMPRESSION: FINDINGS AND IMPRESSION: 1. There is subtle lucency of the right proximal femur transcervical region which may reflect a nondisplaced fracture versus artifact. CT is recommended given the patient's clinical symptoms. 2. Redemonstration of the comminuted left proximal femur intertrochanteric fracture with avulsion of the lesser trochanter status post open reduction internal fixation with intramedullary ras and proximal interlocking screws (acute fracture 04/21/2025). Report Dictated on Electronically Signed By: Destiny Garcia MD Electronically Signed Date/Time: 05/10/2025 6:08 PM EDT [facility] Radiology Study observation (narrative) [facility] XR Hip - right 3 ViewsOrdere d By: Destiny Garcia on 05-10-2025 [facility] [employer] Work Phone: Basic Metabolic Profile (BMP )on 05-09-2025 BUN/CRE 28.0 RATIO High 10-20 [facility] Comment on above: Order Comment: - Performed By: #### L 100.0100, L500.2500 #### [facility] Laboratory [address] [place], [address] Calcium [Mass/Vol] 9.6 mg/dL Normal 7.6-11.0 [facility] Comment on above: Order Comment: - Performed By: #### L 100.0100, L500.2500 #### [facility] [address] [place], [address] Chloride [Moles/Vol] 98 mmol/L Normal 98-108 [facility] Comment on above: Order Comment: - Performed By: #### L 100.0100, L500.2500 #### [facility] [address] [place], [address] CO2 [Moles/Vol] 25.9 mmol/L Normal 21.0-32.0 [facility] Comment on above: Order Comment: - Performed By: #### L 100.0100, L500.2500 #### [facility] [address] [place], [address] Creatinine [Mass/Vol] 0.38 mg/dL Low 0.70-1.20 [facility] Comment on above: Order Comment: Performed By: #### L 100.0100, L500.2500 #### [facility] [address] [place], [address] GAP 10 Normal 5-15 [facility] Comment on above: Order Comment: Performed By: #### L 100.0100, L500.2500 #### [facility] [address] [place], [address] GFR/1.73 sq M.predicted among non-blacks MDRD (S/P/Bld) [Vol rate/Area] 100 mL/min/{1.73_m2} Normal >60 [facility] Comment on above: Order Comment: Result Comment: mL/m in/1.73m2 CKD-EPI Creatinine Equation (2020) Performed By: #### L 100.0100, L500.2500 #### [facility] [address] [place], [address] Glucose [Mass/Vol] 102 mg/dL High 70-99 [facility] Comment on above: Order Comment: Performed By: #### L 100.0100, L500.2500 #### [facility] [address] [place], [address] Potassium [Moles/Vol] 3.7 mmol/L Normal 3.3-5.1 [facility] Comment on above: Order Comment: Performed By: #### L 100.0100, L500.2500 #### [facility] [address] [place], [address] Sodium [Moles/Vol] 134 mmol/L Normal 133-145 [facility] Comment on above: Order Comment: Performed By: #### L 100.0100, L500.2500 #### [facility] [address] [place], [address] Urea nitrogen [Mass/Vol] 11 mg/dL Normal 4-19 [facility] Comment on above: Order Comment: Performed By: #### L 100.0100, L500.2500 #### [facility] [address] [place], [address] CBC W/Diff, Automatedon - Anisocytosis Ql (Bld) 1+ Normal [facility] Comment on above: Order Comment: Performed By: #### L 100.0100, L500.2500 #### [facility] [address] [place], [address] Phenytoin (Dilantin) Levelon 05-05-2025 Phenytoin [Mass/Vol] 25.6 ug/mL High 10.0-20.0 [facility] Comment on above: Order Comment: 203.1 0000 [...] frequency of seizures. Performed By: #### L 501.7700, L503.7505 #### [facility] [address] [place], [address] Pro- Brain NATRIURETIC PEPTI Chan 05-05-2025 Natriuretic peptide B (Bld) [Mass/Vol] 1791 pg/mL Normal <=1800 [facility] Comment on above: Order Comment: 203.1 Result Comment: Hear t Failure Unlikely: < 300 pg/mL Heart Failure Likely < 50 Years: > 450 pg/mL 50-75 Years: > 900 pg/mL >75 Years: > 1800 pg/mL Performed By: #### L 501.7700, L503.7505 #### [facility] [address] [place], [address] Basic Metabolic Profile (BMP )on 05-02-2025 BUN/CRE 38.6 RATIO High 10-20 [facility] Comment on above: Performed By: #### L 100.0500, L500.2500 #### [facility] [address] [place], [address] Calcium [Mass/Vol] 9.6 mg/dL Normal 7.6-11.0 [facility] Comment on above: Performed By: #### L 100.0500, L500.2500 #### [facility] [address] [place], [address] Chloride [Moles/Vol] 97 mmol/L Low 98-108 [facility] Comment on above: Performed By: #### L 100.0500, L500.2500 #### [facility] [address] [place], [address] CO2 [Moles/Vol] 20.1 mmol/L Low 21.0-32.0 [facility] Comment on above: Performed By: #### L 100.0500, L500.2500 #### [facility] [address] [place], [address] Creatinine [Mass/Vol] 0.40 mg/dL Low 0.70-1.20 [facility] Comment on above: Performed By: #### L 100.0500, L500.2500 #### [facility] [address] [place], [address] GAP 13 Normal 5-15 [facility] Comment on above: Performed By: #### L 100.0500, L500.2500 #### [facility] [address] [place], [address] GFR/1.73 sq M.predicted among non-blacks MDRD (S/P/Bld) [Vol rate/Area] 98 mL/min/{1.73_m2} Normal >60 [facility] Comment on above: Result Comment: mL/m in/1.73m2 CKD-EPI Creatinine Equation (2020) Performed By: #### L 100.0500, L500.2500 #### [facility] [address] [place], [address] Glucose [Mass/Vol] 89 mg/dL Normal 70-99 [facility] Comment on above: Performed By: #### L 100.0500, L500.2500 #### [facility] [address] [place], [address] Potassium [Moles/Vol] 3.6 mmol/L Normal 3.3-5.1 [facility] Comment on above: Result Comment: Hemo lysis present, Results??could be affected. ?? Performed By: #### L 100.0500, L500.2500 #### [facility] [address] [place], [address] Sodium [Moles/Vol] 130 mmol/L Low 133-145 [facility] Comment on above: Performed By: #### L 100.0500, L500.2500 #### [facility] [address] [place], [address] Urea nitrogen [Mass/Vol] 16 mg/dL Normal 4-19 [facility] Comment on above: Performed By: #### L 100.0500, L500.2500 #### [facility] [address] [place], [address] CBC-Complete Blood Cnt No Di ffon 05-02-2025 Erythrocyte distribution width (RBC) [Ratio] 16.5 % High 11.6-14.6 [facility] Comment on above: Performed By: #### L 100.0500, L500.2500 #### [facility] [address] [place], [address] Hematocrit (Bld) [Volume fraction] 28.5 % Low 37-47 [facility] Comment on above: Performed By: #### L 100.0500, L500.2500 #### [facility] [address] [place], [address] Hemoglobin (Bld) [Mass/Vol] 9.5 g/dL Low 12.0-15.0 [facility] Comment on above: Performed By: #### L 100.0500, L500.2500 #### [facility] [address] [place], [address] MCH (RBC) [Entitic mass] 33.6 pg High 27.0-32.0 [facility] Comment on above: Performed By: #### L 100.0500, L500.2500 #### [facility] [address] [place], [address] MCHC (RBC) [Mass/Vol] 33.3 g/dL Normal 32-36 [facility] Comment on above: Performed By: #### L 100.0500, L500.2500 #### [facility] [address] [place], [address] MCV (RBC) [Entitic vol] 100.7 fL High 81-99 [facility] Comment on above: Performed By: #### L 100.0500, L500.2500 #### [facility] [address] [place], [address] Platelet mean volume (Bld) [Entitic vol] 9.1 fL Normal 6.2-12.0 [facility] Comment on above: Performed By: #### L 100.0500, L500.2500 #### [facility] [address] [place], [address] Platelets (Bld) [#/Vol] 344 10*3/uL Normal 150-450 [facility] Comment on above: Performed By: #### L 100.0500, L500.2500 #### [facility] [address] [place], [address] RBC (Bld) [#/Vol] 2.83 10*6/uL Low 4.2-5.4 [facility] Comment on above: Performed By: #### L 100.0500, L500.2500 #### [facility] [address] [place], [address] RDW SD 58.8 fl High 35.1-43.9 [facility] Comment on above: Performed By: #### L 100.0500, L500.2500 #### [facility] [address] [place], [address] WBC (Bld) [#/Vol] 7.5 10*3/uL Normal 4.4-11.0 [facility] Comment on above: Performed By: #### L 100.0500, L500.2500 #### [facility] [address] [place], [address] [id number] 05-01-2025 [id number] Patient Choice Patient Name: MADAY ALFARO Date of : 1940 [facility] 36on 05-01-2025 36 Spoke with patient's nurse and gave her Krupa's recommendations to stop Lovenox [facility] 36 Contacted by [facility] regarding patient being on Lovenox. Okay to stop Lovenox. [facility] [id number] 04-30-2025 [id number] [facility] Detention/[address] [phone] Patient/Family Choice [facility] [id number] [facility] [id number] [facility] [id number] [facility] [id number] [facility] [id number] 04-29-2025 [id number] Discharge med list transmitted to [facility] [place] via [employer] per TCC request. 7000 was entered into [place] [facility] for the [facility] [id number] Transport requested in Roundtrip as Will Call for [facility] per TCC request. [facility] [phone] FOC is [facility] tasked to submit for humana auth and to do 7000. Transport requested in will call . [facility] [phone] Family called back [facility] to send clinicals and med rec Will submit auth today if accepted Adore to be done And 7000 [facility] [phone] [facility] BASIC METABOLIC PANELon - Anion gap [Moles/Vol] 3 mmol/L Normal 3-13 [facility] Comment on above: Performed By: #### L AB15 ####Dispatch Lead: RIKY PICKARD ([id number])[facility] ([facility])[address] [place] [address] [place] Calcium [Mass/Vol] 9.0 mg/dL Normal 8.8-10.0 [facility] Comment on above: Performed By: #### L AB15 ####Dispatch Lead: RIKY PICKARD ([id number])[facility] ([facility])[address] [place] [address] [place] Chloride [Moles/Vol] 102 mmol/L Normal 98-107 [facility] Comment on above: Performed By: #### L AB15 ####Dispatch Lead: RIKY PICKARD ([id number])[facility] ([facility])[address] [place] [address] [place] CO2 [Moles/Vol] 24 mmol/L Normal 23-31 [facility] Comment on above: Performed By: #### L AB15 ####Dispatch Lead: RIKY PICKARD ([id number])[facility] ([facility])[address] [place] [address] Creatinine [Mass/Vol] 0.47 mg/dL Low 0.57-1.11 [facility] Comment on above: Performed By: #### L AB15 ####Dispatch Lead: RIKY PICKARD ([id number])[facility])[address] [place] [address] GLOMERULAR FILTRATION RATE ML/MIN/1.73 SQ M.PREDICTED >90.0 Normal >60.0 [facility] Comment on above: Result Comment: Calc ulation based on the Chronic Kidney Disease Epidemiology Collaboration (CKD-EPI) equation refit without adjustment for race Performed By: #### L AB15 ####Dispatch Lead: RIKY PICKARD ([id number])[facility] ([facility])[address] [place] [address] Glucose [Mass/Vol] 103 mg/dL Normal 82-115 [facility] Comment on above: Performed By: #### L AB15 ####Dispatch Lead: RIKY PICKARD ([id number])[facility])[address] [place] [address] Potassium [Moles/Vol] 3.7 mmol/L Normal 3.5-5.1 [facility] Comment on above: Result Comment: [facility] potassium values may be up to 0.5 mmol/L lower than serum values. Performed By: #### L AB15 ####Dispatch Lead: RIKY PICKARD ([id number])[facility] [place] [address] [place] Sodium [Moles/Vol] 129 mmol/L Low 136-145 [facility] Comment on above: Performed By: #### L AB15 ####Dispatch Lead: RIKY PICKARD ([id number])[facility] ([facility])[address] [place] [address] Urea nitrogen [Mass/Vol] 13 mg/dL Normal 9-23 [facility] Comment on above: Performed By: #### L AB15 ####Dispatch Lead: RIKY PICKARD ([id number])[address] Basic metabolic 1998 panelon 04-29-2025 Anion gap [Moles/Vol] 3 mmol/L 3 - 13 mmol/L [facility] Calcium [Mass/Vol] 9 mg/dL 8.8 - 10. 0 mg/dL [facility] Chloride [Moles/Vol] 102 mmol/L 98 - 10 7 mmol/L [facility] CO2 [Moles/Vol] 24 mmol/L 23 - 31 mmol/L [facility] Creatinine [Mass/Vol] 0.47 mg/dL Low 0.57 - 1.11 mg/dL [facility] GFR/1.73 sq M.predicted (S/P/Bld) [Vol rate/Area] - PINF [facility] Comment on above: Calculation based on the Chronic Kidney Disease Epidemiology Collaboration (CKD-EPI) equation refit without adjustment for race Glucose [Mass/Vol] 103 mg/dL 82 - 115 mg/dL [facility] Interpretation and review of laboratory results Abnormal [facility] Potassium [Moles/Vol] 3.7 mmol/L 3.5 - 5.1 mmol/L [facility] Comment on above: Plasma potassium dede ues may be up to 0.5 mmol/L lower than serum values. Sodium [Moles/Vol] 129 mmol/L Low 136 - 145 mmol/L [facility] Urea nitrogen [Mass/Vol] 13 mg/dL 9 - 23 mg/dL [facility] Nursing Noteon 04-29-2025 Nursing Note Normal [facility] Progress Noteon 04-29-2025 Progress Note Normal [facility] Progress Note Normal [facility] Progress Note Normal [facility] Progress Note Normal [facility] [id number] 04-28-2025 [id number] Normal [facility] [id number] Normal [facility] BASIC METABOLIC PANELon 04-14 Anion gap [Moles/Vol] 5 mmol/L Normal 3-13 [facility] Comment on above: Performed By: #### L AB15 ####Dispatch Lead: RIKY PICKARD ([id number])[facility] [place] [address] Calcium [Mass/Vol] 8.7 mg/dL Low 8.8-10.0 [facility] Comment on above: Performed By: #### L AB15 ####Dispatch Lead: RIKY PICKARD ([id number])[facility] [place] [address] Chloride [Moles/Vol] 102 mmol/L Normal 98-107 [facility] Comment on above: Performed By: #### L AB15 ####Dispatch Lead: RIKY PICKARD ([id number])[facility] [place] [address] CO2 [Moles/Vol] 23 mmol/L Normal 23-31 [facility] Comment on above: Performed By: #### L AB15 ####Dispatch Lead: RIKY PICKARD ([id number])[facility] [place] [address] Creatinine [Mass/Vol] 0.48 mg/dL Low 0.57-1.11 [facility] Comment on above: Performed By: #### L AB15 ####Dispatch Lead: RIKY PICKARD ([id number])[facility] ([facility])[address] [place] [address] GLOMERULAR FILTRATION RATE ML/MIN/1.73 SQ M.PREDICTED >90.0 Normal >60.0 [facility] Comment on above: Result Comment: Calc ulation based on the Chronic Kidney Disease Epidemiology Collaboration (CKD-EPI) equation refit without adjustment for race Performed By: #### L AB15 ####Dispatch Lead: RIKY PICKARD ([id number])[facility] ([facility])[address] [place] [address] Glucose [Mass/Vol] 97 mg/dL Normal 82-115 [facility] Comment on above: Performed By: #### L AB15 ####Dispatch Lead: RIKY PICKARD ([id number])[facility] ([facility])[address] [place] [address] Potassium [Moles/Vol] 4.0 mmol/L Normal 3.5-5.1 [facility] Comment on above: Result Comment: [facility] potassium values may be up to 0.5 mmol/L lower than serum values. Performed By: #### L AB15 ####Dispatch Lead: RIKY PICKARD ([id number])[address] Sodium [Moles/Vol] 130 mmol/L Low 136-145 [facility] Comment on above: Performed By: #### L AB15 ####Dispatch Lead: RIKY PICKARD ([id number])[address] Urea nitrogen [Mass/Vol] 19 mg/dL Normal 9-23 [facility] Comment on above: Performed By: #### L AB15 ####Dispatch Lead: RIKY PICKARD ([id number])[address] Basic metabolic 1998 panelon 04-28-2025 Anion gap [Moles/Vol] 5 mmol/L 3 - 13 mmol/L [facility] Calcium [Mass/Vol] 8.7 mg/dL Low 8.8 - 10. 0 mg/dL [facility] Chloride [Moles/Vol] 102 mmol/L 98 - 10 7 mmol/L [facility] CO2 [Moles/Vol] 23 mmol/L 23 - 31 mmol/L [facility] Creatinine [Mass/Vol] 0.48 mg/dL Low 0.57 - 1.11 mg/dL [facility] GFR/1.73 sq M.predicted (S/P/Bld) [Vol rate/Area] - PINF [facility] Comment on above: Calculation based on the Chronic Kidney Disease Epidemiology Collaboration (CKD-EPI) equation refit without adjustment for race Glucose [Mass/Vol] 97 mg/dL 82 - 115 mg/dL [facility] Interpretation and review of laboratory results Abnormal [facility] Potassium [Moles/Vol] 4 mmol/L 3.5 - 5.1 mmol/L [facility] Comment on above: Plasma potassium dede ues may be up to 0.5 mmol/L lower than serum values. Sodium [Moles/Vol] 130 mmol/L Low 136 - 145 mmol/L [facility] Urea nitrogen [Mass/Vol] 19 mg/dL 9 - 23 mg/dL [facility] CBC W Auto Differential pane l (Bld)on 04-28-2025 Basophils (Bld) [#/Vol] 0 10*3/uL 0.0 - 0.2 10*3/uL [facility] Basophils/100 WBC (Bld) 0.3 % 0.0 - 2.0 % [facility] Eosinophils (Bld) [#/Vol] 0.1 10*3/uL 0.0 - 0.5 10*3/uL [facility] Eosinophils/100 WBC (Bld) 1.7 % 0.0 - 6.0 % [facility] Erythrocyte distribution width (RBC) [Ratio] 14.9 % 11.5 - 15.0 % [facility] Hematocrit (Bld) [Volume fraction] 22.6 % Low 35.0 - 47.0 % [facility] Hemoglobin (Bld) [Mass/Vol] 7.8 g/dL Low 11.7 - 16.0 g/dL [facility] Immature granulocytes (Bld) [#/Vol] 0.2 10*3/uL High NINF - 0.1 10*3/uL [facility] Immature granulocytes/100 WBC (Bld) 2.1 % High 0.0 - 2.0 % [facility] Interpretation and review of laboratory results Abnormal [facility] Lymphocytes (Bld) [#/Vol] 1.3 10*3/uL 1.0 - 4.3 10*3/uL [facility] Lymphocytes/100 WBC (Bld) 17.4 % 15.0 - 45.0 % [facility] MCH (RBC) [Entitic mass] 33.2 pg 26.0 - 34.0 pg [facility] MCHC (RBC) [Mass/Vol] 34.5 % 30.5 - 36.0 % [facility] MCV (RBC) [Entitic vol] 96.2 fL 77.0 - 99.0 fL [facility] Monocytes (Bld) [#/Vol] 1.1 10*3/uL High 0.0 - 0.9 10*3/uL [facility] Monocytes/100 WBC (Bld) 14.5 % High 5.0 - 13.0 % [facility] Neutrophils (Bld) [#/Vol] 4.7 10*3/uL 1.8 - 7.5 10*3/uL [facility] Neutrophils/100 WBC (Bld) 64 % 38.0 - 82.0 % [facility] Nucleated RBC/100 WBC (Bld) [Ratio] 0 % [facility] Platelet mean volume (Bld) [Entitic vol] 9.7 fL 9.0 - 12.7 fL [facility] Platelets (Bld) [#/Vol] 216 10*3/uL 140 - 440 10*3/uL [facility] RBC (Bld) [#/Vol] 2.35 10*6/uL Low 3.80 - 5.2 0 10*6/uL [facility] WBC (Bld) [#/Vol] 7.3 10*3/uL 3.6 - 10.7 10*3/uL [facility] CBC WITH AUTO DIFFERENTIALon 04-28-2025 Basophils (Bld) [#/Vol] 0.0 10*3/uL Normal 0.0-0.2 [facility] Comment on above: Performed By: #### L [id number] ####Dispatch Lead: RIKY PICKARD ([id number])[address] Basophils/100 WBC (Bld) 0.3 % Normal 0.0-2.0 [facility] Comment on above: Performed By: #### L [id number] ####Dispatch Lead: RIKY PICKARD ([id number])[facility] ([facility])[address] [place] [address] Eosinophils (Bld) [#/Vol] 0.1 10*3/uL Normal 0.0-0.5 [facility] Comment on above: Performed By: #### L [id number] ####Dispatch Lead: RIKY PICKARD ([id number])[facility])[address] [place] [address] Eosinophils/100 WBC (Bld) 1.7 % Normal 0.0-6.0 [facility] Comment on above: Performed By: #### L [id number] ####Dispatch Lead: RIKY PICKARD ([id number])[facility])[address] [place] [address] Erythrocyte distribution width (RBC) [Ratio] 14.9 % Normal 11.5-15.0 [facility] Comment on above: Performed By: #### L [id number] ####Dispatch Lead: RIKY PICKARD ([id number])[facility])[address] [place] [address] Hematocrit (Bld) [Volume fraction] 22.6 % Low 35.0-47.0 [facility] Comment on above: Performed By: #### L [id number] ####Dispatch Lead: RIKY PICKARD ([id number])[address] Hemoglobin (Bld) [Mass/Vol] 7.8 g/dL Low 11.7-16.0 [facility] Comment on above: Performed By: #### L [id number] ####Dispatch Lead: RIKY PICKARD ([id number])[facility])[address] [place] [address] IMMATURE GRANS % 2.1 % High 0.0-2.0 [facility] Comment on above: Performed By: #### L [id number] ####Dispatch Lead: RIKY PICKARD ([id number])[address] IMMATURE GRANS ABSOLUTE 0.2 10*3/uL High <0.1 [facility] Comment on above: Performed By: #### L [id number] ####Dispatch Lead: RIKY PICKARD ([id number])[address] Lymphocytes (Bld) [#/Vol] 1.3 10*3/uL Normal 1.0-4.3 [facility] Comment on above: Performed By: #### L [id number] ####Dispatch Lead: RIKY PICKARD ([id number])[facility])[address] [place] [address] Lymphocytes/100 WBC (Bld) 17.4 % Normal 15.0-45.0 [facility] Comment on above: Performed By: #### L [id number] ####Dispatch Lead: RIKY PICKARD ([id number])[facility])[address] [place] [address] MCH (RBC) [Entitic mass] 33.2 pg Normal 26.0-34.0 [facility] Comment on above: Performed By: #### L [id number] ####Dispatch Lead: RIKY PICKARD ([id number])[facility])[address] [place] [address] MCHC 34.5 % Normal 30.5-36.0 [facility] Comment on above: Performed By: #### L [id number] ####Dispatch Lead: RIKY PICKARD ([id number])[facility])[address] [place] [address] MCV (RBC) [Entitic vol] 96.2 fL Normal 77.0-99.0 [facility] Comment on above: Performed By: #### L [id number] ####Dispatch Lead: RIKY PICKARD ([id number])[facility])[address] [place] [address] Monocytes (Bld) [#/Vol] 1.1 10*3/uL High 0.0-0.9 [facility] Comment on above: Performed By: #### L [id number] ####Dispatch Lead: RIKY PICKARD ([id number])[facility])[address] [place] [address] Monocytes/100 WBC (Bld) 14.5 % High 5.0-13.0 [facility] Comment on above: Performed By: #### L [id number] ####Dispatch Lead: RIKY PICKARD ([id number])[facility])[address] [place] [address] NEUTROPHILS ABSOLUTE 4.7 10*3/uL Normal 1.8-7.5 [facility] Comment on above: Performed By: #### L [id number] ####Dispatch Lead: RIKY PICKARD ([id number])[facility] ([facility])[address] [place] [address] Neutrophils/100 WBC (Bld) 64.0 % Normal 38.0-82.0 [facility] Comment on above: Performed By: #### L [id number] ####Dispatch Lead: RIKY PICKARD ([id number])[facility] ([facility])[address] [place] [address] NRBC 0.0 /100 WBCs Normal 0.0-2.0 [facility] Comment on above: Performed By: #### L [id number] ####Dispatch Lead: RIKY PICKARD ([id number])[facility] ([facility])[address] [place] [address] Platelet mean volume (Bld) [Entitic vol] 9.7 fL Normal 9.0-12.7 [facility] Comment on above: Performed By: #### L [id number] ####Dispatch Lead: RIKY PICKARD ([id number])[facility] ([facility])[address] [place] [address] [place] Platelets (Bld) [#/Vol] 216 10*3/uL Normal 140-440 [facility] Comment on above: Performed By: #### L [id number] ####Dispatch Lead: RIKY PICKARD ([id number])[facility] ([facility])[address] [place] [address] [place] RBC (Bld) [#/Vol] 2.35 10*6/uL Low 3.80-5.20 [facility] Comment on above: Performed By: #### L [id number] ####Dispatch Lead: RIKY PICKARD ([id number])[facility] ([facility])[address] [place] [address] [place] WBC (Bld) [#/Vol] 7.3 10*3/uL Normal 3.6-10.7 [facility] Comment on above: Performed By: #### L [id number] ####Dispatch Lead: IRKY PICKARD ([id number])[facility] [place] [address] Progress Noteon 04-28-2025 Progress Note Normal [facility] Progress Note Normal [facility] Progress Note Normal [facility] Progress Note Normal [facility] BASIC METABOLIC PANELon 04-14 Anion gap [Moles/Vol] 7 mmol/L Normal 3-13 [facility] Comment on above: Performed By: #### L AB113, LAB15, [id number] ####Dispatch Lead: RIKY PICKARD ([id number])[facility] ([facility])[address] [place] [address] Calcium [Mass/Vol] 8.6 mg/dL Low 8.8-10.0 [facility] Comment on above: Performed By: #### L AB113, LAB15, [id number] ####Dispatch Lead: RIKY PICKARD ([id number])[facility] [place] [address] Chloride [Moles/Vol] 102 mmol/L Normal 98-107 [facility] Comment on above: Performed By: #### L AB113, LAB15, [id number] ####Dispatch Lead: RIKY PICKARD ([id number])[facility] [place] [address] CO2 [Moles/Vol] 22 mmol/L Low 23-[address] [facility] Comment on above: Performed By: #### L AB113, LAB15, [id number] ####Dispatch Lead: RIKY PICKARD ([id number])[facility] ([facility])[address] [place] [address] Creatinine [Mass/Vol] 0.51 mg/dL Low 0.57-1.11 [facility] Comment on above: Performed By: #### L AB113, LAB15, [id number] ####Dispatch Lead: RIKY PICKARD ([id number])[facility] [address] GLOMERULAR FILTRATION RATE ML/MIN/1.73 SQ M.PREDICTED >90.0 Normal >60.0 [facility] Comment on above: Result Comment: Calc ulation based on the Chronic Kidney Disease Epidemiology Collaboration (CKD-EPI) equation refit without adjustment for race Performed By: #### L AB113, LAB15, [id number] ####Dispatch Lead: RIKY PICKARD ([id number])[facility])[address] [place] [address] Glucose [Mass/Vol] 95 mg/dL Normal 82-115 [facility] Comment on above: Performed By: #### L AB113, LAB15, [id number] ####Dispatch Lead: RIKY PICKARD ([id number])[address] Potassium [Moles/Vol] 3.9 mmol/L Normal 3.5-5.1 [facility] Comment on above: Result Comment: [facility] potassium values may be up to 0.5 mmol/L lower than serum values. Performed By: #### L AB113, LAB15, [id number] ####Dispatch Lead: RIKY PICKARD ([id number])[address] Sodium [Moles/Vol] 131 mmol/L Low 136-145 [facility] Comment on above: Performed By: #### L AB113, LAB15, [id number] ####Dispatch Lead: RIKY PICKRAD ([id number])[facility])[address] [place] [address] Urea nitrogen [Mass/Vol] 16 mg/dL Normal 9-23 [facility] Comment on above: Performed By: #### L AB113, LAB15, [id number] ####Dispatch Lead: RIKY PICKARD ([id number])[address] Basic metabolic 1998 panelon 04-27-2025 Anion gap [Moles/Vol] 7 mmol/L 3 - 13 mmol/L [facility] Calcium [Mass/Vol] 8.6 mg/dL Low 8.8 - 10. 0 mg/dL [facility] Chloride [Moles/Vol] 102 mmol/L 98 - 10 7 mmol/L [facility] CO2 [Moles/Vol] 22 mmol/L Low 23 - 31 mmol/L [facility] Creatinine [Mass/Vol] 0.51 mg/dL Low 0.57 - 1.11 mg/dL [facility] GFR/1.73 sq M.predicted (S/P/Bld) [Vol rate/Area] - PINF [facility] Comment on above: Calculation based on the Chronic Kidney Disease Epidemiology Collaboration (CKD-EPI) equation refit without adjustment for race Glucose [Mass/Vol] 95 mg/dL 82 - 115 mg/dL [facility] Potassium [Moles/Vol] 3.9 mmol/L 3.5 - 5.1 mmol/L [facility] Comment on above: Plasma potassium dede ues may be up to 0.5 mmol/L lower than serum values. Sodium [Moles/Vol] 131 mmol/L Low 136 - 145 mmol/L [facility] Urea nitrogen [Mass/Vol] 16 mg/dL 9 - 23 mg/dL [facility] CBC W Auto Differential pane l (Bld)on 04-27-2025 Basophils (Bld) [#/Vol] 0 10*3/uL 0.0 - 0.2 10*3/uL [facility] Basophils/100 WBC (Bld) 0.2 % 0.0 - 2.0 % [facility] Eosinophils (Bld) [#/Vol] 0.1 10*3/uL 0.0 - 0.5 10*3/uL [facility] Eosinophils/100 WBC (Bld) 1.9 % 0.0 - 6.0 % [facility] Erythrocyte distribution width (RBC) [Ratio] 14.6 % 11.5 - 15.0 % [facility] Hematocrit (Bld) [Volume fraction] 23 % Low 35.0 - 47.0 % [facility] Hemoglobin (Bld) [Mass/Vol] 7.7 g/dL Low 11.7 - 16.0 g/dL [facility] Immature granulocytes (Bld) [#/Vol] 0.1 10*3/uL High NINF - 0.1 10*3/uL [facility] Immature granulocytes/100 WBC (Bld) 1.1 % 0.0 - 2.0 % [facility] Interpretation and review of laboratory results Abnormal [facility] Lymphocytes (Bld) [#/Vol] 1.6 10*3/uL 1.0 - 4.3 10*3/uL [facility] Lymphocytes/100 WBC (Bld) 24.8 % 15.0 - 45.0 % [facility] MCH (RBC) [Entitic mass] 32.5 pg 26.0 - 34.0 pg [facility] MCHC (RBC) [Mass/Vol] 33.5 % 30.5 - 36.0 % [facility] MCV (RBC) [Entitic vol] 97 fL 77.0 - 99.0 fL [facility] Monocytes (Bld) [#/Vol] 0.9 10*3/uL 0.0 - 0.9 10*3/uL [facility] Monocytes/100 WBC (Bld) 14.6 % High 5.0 - 13.0 % [facility] Neutrophils (Bld) [#/Vol] 3.7 10*3/uL 1.8 - 7.5 10*3/uL [facility] Neutrophils/100 WBC (Bld) 57.4 % 38.0 - 82.0 % [facility] Nucleated RBC/100 WBC (Bld) [Ratio] 0 % [facility] Platelet mean volume (Bld) [Entitic vol] 10.5 fL 9.0 - 12.7 fL [facility] Platelets (Bld) [#/Vol] 181 10*3/uL 140 - 440 10*3/uL [facility] RBC (Bld) [#/Vol] 2.37 10*6/uL Low 3.80 - 5.2 0 10*6/uL [facility] WBC (Bld) [#/Vol] 6.4 10*3/uL 3.6 - 10.7 10*3/uL [facility] CBC WITH AUTO DIFFERENTIALon 04-27-2025 Basophils (Bld) [#/Vol] 0.0 10*3/uL Normal 0.0-0.2 [facility] Comment on above: Performed By: #### L [id number] ####Dispatch Lead: RIKY PICKARD ([id number])[facility] ([address] Basophils/100 WBC (Bld) 0.2 % Normal 0.0-2.0 [facility] Comment on above: Performed By: #### L [id number] ####Dispatch Lead: RIKY PICKARD ([phone])[facility])[address] [place] [address] Eosinophils (Bld) [#/Vol] 0.1 10*3/uL Normal 0.0-0.5 [facility] Comment on above: Performed By: #### L [id number] ####Dispatch Lead: RIKY PICKARD ([id number])[facility])[address] [place] [address] Eosinophils/100 WBC (Bld) 1.9 % Normal 0.0-6.0 [facility] Comment on above: Performed By: #### L [id number] ####Dispatch Lead: RIKY PICKARD ([id number])[facility])[address] [place] [address] Erythrocyte distribution width (RBC) [Ratio] 14.6 % Normal 11.5-15.0 [facility] Comment on above: Performed By: #### L [id number] ####Dispatch Lead: RIKY PICKARD ([id number])[facility])[address] [place] [address] Hematocrit (Bld) [Volume fraction] 23.0 % Low 35.0-47.0 [facility] Comment on above: Performed By: #### L [id number] ####Dispatch Lead: RIKY PICKARD ([phone])[facility])[address] [place] [address] Hemoglobin (Bld) [Mass/Vol] 7.7 g/dL Low 11.7-16.0 [facility] Comment on above: Performed By: #### L [id number] ####Dispatch Lead: RIKY PICKARD ([id number])[facility])[address] [place] [address] IMMATURE GRANS % 1.1 % Normal 0.0-2.0 [facility] Comment on above: Performed By: #### L [id number] ####Dispatch Lead: RIKY PICKARD ([id number])[address] IMMATURE GRANS ABSOLUTE 0.1 10*3/uL High <0.1 [facility] Comment on above: Performed By: #### L [id number] ####Dispatch Lead: RIKY PICKARD ([id number])[facility])[address] [place] [address] Lymphocytes (Bld) [#/Vol] 1.6 10*3/uL Normal 1.0-4.3 [facility] Comment on above: Performed By: #### L [id number] ####Dispatch Lead: RIKY PICKARD ([id number])[address] Lymphocytes/100 WBC (Bld) 24.8 % Normal 15.0-45.0 [facility] Comment on above: Performed By: #### L [id number] ####Dispatch Lead: RIKY PICKARD ([id number])[facility])[address] [place] [address] MCH (RBC) [Entitic mass] 32.5 pg Normal 26.0-34.0 [facility] Comment on above: Performed By: #### L [id number] ####Dispatch Lead: RIKY PICKARD ([id number])[address] MCHC 33.5 % Normal 30.5-36.0 [facility] Comment on above: Performed By: #### L [id number] ####Dispatch Lead: RIKY PICKARD ([id number])[address] MCV (RBC) [Entitic vol] 97.0 fL Normal 77.0-99.0 [facility] Comment on above: Performed By: #### L [id number] ####Dispatch Lead: RIKY PICKARD ([phone])[facility] [place] [address] Monocytes (Bld) [#/Vol] 0.9 10*3/uL Normal 0.0-0.9 [facility] Comment on above: Performed By: #### L [id number] ####Dispatch Lead: RIKY PICKARD ([phone])[facility] ([facility])[address] [place] [address] Monocytes/100 WBC (Bld) 14.6 % High 5.0-13.0 [facility] Comment on above: Performed By: #### L [id number] ####Dispatch Lead: RIKY PICKARD ([id number])[facility] ([facility])[address] [place] [address] NEUTROPHILS ABSOLUTE 3.7 10*3/uL Normal 1.8-7.5 [facility] Comment on above: Performed By: #### L [id number] ####Dispatch Lead: RIKY PICKARD ([id number])[facility] ([facility])[address] [place] [address] Neutrophils/100 WBC (Bld) 57.4 % Normal 38.0-82.0 [facility] Comment on above: Performed By: #### L [id number] ####Dispatch Lead: RKIY PICKARD ([id number])[facility] ([facility])[address] [place] [address] NRBC 0.0 /100 WBCs Normal 0.0-2.0 [facility] Comment on above: Performed By: #### L [id number] ####Dispatch Lead: RIKY PICKARD ([id number])[facility] ([facility])[address] [place] [address] Platelet mean volume (Bld) [Entitic vol] 10.5 fL Normal 9.0-12.7 [facility] Comment on above: Performed By: #### L [id number] ####Dispatch Lead: RIKY PICKARD ([phone])[facility] ([facility])[address] [place] [address] Platelets (Bld) [#/Vol] 181 10*3/uL Normal 140-440 [facility] Comment on above: Performed By: #### L [id number] ####Dispatch Lead: RIKY PICKARD ([phone])[facility])[address] [place] [address] RBC (Bld) [#/Vol] 2.37 10*6/uL Low 3.80-5.20 [facility] Comment on above: Performed By: #### L [id number] ####Dispatch Lead: RIKY PICKARD ([id number])[facility])[address] [place] [address] WBC (Bld) [#/Vol] 6.4 10*3/uL Normal 3.6-10.7 [facility] Comment on above: Performed By: #### L [id number] ####Dispatch Lead: RIKY PICKARD ([id number])[facility])[address] [place] [address] Laboratory - Chemistry and C hemistry - challengeon 04-27-2025 Magnesium [Mass/Vol] 2 mg/dL 1.6 - 2 .6 mg/dL [facility] MAGNESIUMon 04-27-2025 Magnesium [Mass/Vol] 2.0 mg/dL Normal 1.6-2.6 [facility] Comment on above: Result Comment: CHERELLE R COMMENTS:Higher values can be expected in females during menses. Performed By: #### L AB113, LAB15, [id number] ####Dispatch Lead: RIKY PICKARD ([id number])[facility])[address] [place] [address] Magnesium [Mass/Vol]on 04-27 Interpretation and review of laboratory results Normal [facility] Higher values can be expected in females during menses. [facility] No Panel Informationon 04-27 Interpretation and review of laboratory results Abnormal [facility] PHOSPHORUSon 04-27-2025 Phosphate [Mass/Vol] 2.2 mg/dL Low 2.3-4.7 [facility] Comment on above: Performed By: #### L AB113, LAB15, [id number] ####Dispatch Lead: RIKY PICKARD ([id number])[facility] ([facility])[address] [place] [address] [place] Phosphate [Moles/Vol]on 04-14 Phosphate [Mass/Vol] 2.2 mg/dL Low 2.3 - 4 .7 mg/dL [facility] Progress Noteon 04-27-2025 Progress Note PHYSICAL THERAPY [facility] Name/MRN: Maday Alfaro ([id number]) Date: 04/27/2025 Treatment is being deferred at present because she just completed therapy with OT and needs a rest . Keya Velasquez, DENTAL ASSISTANT INSTRUCTOR Normal [facility] Progress Note Normal [facility] Progress Note Normal [facility] [id number] 04-26-2025 [id number] Normal [facility] BASIC METABOLIC PANELon 04-14 Anion gap [Moles/Vol] 5 mmol/L Normal - [facility] Comment on above: Performed By: #### L AB113, LAB15, [id number] ####Dispatch Lead: RIKY PICKARD ([id number])[facility] ([facility])[address] [place] [address] [place] Calcium [Mass/Vol] 8.4 mg/dL Low 8.8-10.0 [facility] Comment on above: Performed By: #### L AB113, LAB15, [id number] ####Dispatch Lead: RIKY PICKARD ([id number])[facility] ([facility])[address] [place] [address] [place] Chloride [Moles/Vol] 104 mmol/L Normal 98-107 [facility] Comment on above: Performed By: #### L AB113, LAB15, [id number] ####Dispatch Lead: RIKY PICKARD ([id number])[facility] ([facility])[address] [place] [address] [place] CO2 [Moles/Vol] 22 mmol/L Low 23-[address] [facility] Comment on above: Performed By: #### L AB113, LAB15, [id number] ####Dispatch Lead: RIKY PICKARD ([id number])[facility])[address] [place] [address] Creatinine [Mass/Vol] 0.49 mg/dL Low 0.57-1.11 [facility] Comment on above: Performed By: #### L AB113, LAB15, [id number] ####Dispatch Lead: RIKY PICKARD ([id number])[facility])[address] [place] [address] GLOMERULAR FILTRATION RATE ML/MIN/1.73 SQ M.PREDICTED >90.0 Normal >60.0 [facility] Comment on above: Result Comment: Calc ulation based on the Chronic Kidney Disease Epidemiology Collaboration (CKD-EPI) equation refit without adjustment for race Performed By: #### L AB113, LAB15, [id number] ####Dispatch Lead: RIKY PICKARD ([id number])[facility])[address] [place] [address] Glucose [Mass/Vol] 103 mg/dL Normal 82-115 [facility] Comment on above: Performed By: #### L AB113, LAB15, [id number] ####Dispatch Lead: RIKY PICKARD ([id number])[facility])[address] [place] [address] Potassium [Moles/Vol] 4.2 mmol/L Normal 3.5-5.1 [facility] Comment on above: Result Comment: [facility] potassium values may be up to 0.5 mmol/L lower than serum values. Performed By: #### L AB113, LAB15, [id number] ####Dispatch Lead: RIKY PICKARD ([id number])[facility] ([facility])[address] [place] [address] [place] Sodium [Moles/Vol] 131 mmol/L Low 136-145 [facility] Comment on above: Performed By: #### L AB113, LAB15, [id number] ####Dispatch Lead: RIKY PICKARD ([id number])[facility])[address] [place] [address] [place] Urea nitrogen [Mass/Vol] 14 mg/dL Normal 9-23 [facility] Comment on above: Performed By: #### L AB113, LAB15, [id number] ####Dispatch Lead: RIKY PICKARD ([id number])[facility] ([facility])[address] [place] [address] Basic metabolic 1998 panelon 04-26-2025 Anion gap [Moles/Vol] 5 mmol/L 3 - 13 mmol/L [facility] Calcium [Mass/Vol] 8.4 mg/dL Low 8.8 - 10. 0 mg/dL [facility] Chloride [Moles/Vol] 104 mmol/L 98 - 10 7 mmol/L [facility] CO2 [Moles/Vol] 22 mmol/L Low 23 - 31 mmol/L [facility] Creatinine [Mass/Vol] 0.49 mg/dL Low 0.57 - 1.11 mg/dL [facility] GFR/1.73 sq M.predicted (S/P/Bld) [Vol rate/Area] - PINF [facility] Comment on above: Calculation based on the Chronic Kidney Disease Epidemiology Collaboration (CKD-EPI) equation refit without adjustment for race Glucose [Mass/Vol] 103 mg/dL 82 - 115 mg/dL [facility] Potassium [Moles/Vol] 4.2 mmol/L 3.5 - 5.1 mmol/L [facility] Comment on above: Plasma potassium dede ues may be up to 0.5 mmol/L lower than serum values. Sodium [Moles/Vol] 131 mmol/L Low 136 - 145 mmol/L [facility] Urea nitrogen [Mass/Vol] 14 mg/dL 9 - 23 mg/dL [facility] CBC W Auto Differential pane l (Bld)Ordered By: John Sharma on 04-26-2025 Basophils (Bld) [#/Vol] 0 10*3/uL 0.0 - 0.2 10*3/uL [facility] Basophils/100 WBC (Bld) 0.1 % 0.0 - 2.0 % [facility] Eosinophils (Bld) [#/Vol] 0.1 10*3/uL 0.0 - 0.5 10*3/uL [facility] Eosinophils/100 WBC (Bld) 1 % 0.0 - 6.0 % [facility] Erythrocyte distribution width (RBC) [Ratio] 14.4 % 11.5 - 15.0 % [facility] Hematocrit (Bld) [Volume fraction] 22.2 % Low 35.0 - 47.0 % [facility] Hemoglobin (Bld) [Mass/Vol] 7.7 g/dL Low 11.7 - 16.0 g/dL [facility] Immature granulocytes (Bld) [#/Vol] 0 10*3/uL NINF - 0.1 10*3/uL [facility] Immature granulocytes/100 WBC (Bld) 0.4 % 0.0 - 2.0 % [facility] Interpretation and review of laboratory results Abnormal [facility] Lymphocytes (Bld) [#/Vol] 1.4 10*3/uL 1.0 - 4.3 10*3/uL [facility] Lymphocytes/100 WBC (Bld) 21.3 % 15.0 - 45.0 % [facility] MCH (RBC) [Entitic mass] 33.2 pg 26.0 - 34.0 pg [facility] MCHC (RBC) [Mass/Vol] 34.7 % 30.5 - 36.0 % [facility] MCV (RBC) [Entitic vol] 95.7 fL 77.0 - 99.0 fL [facility] Monocytes (Bld) [#/Vol] 0.9 10*3/uL 0.0 - 0.9 10*3/uL [facility] Monocytes/100 WBC (Bld) 13.4 % High 5.0 - 13.0 % [facility] Neutrophils (Bld) [#/Vol] 4.3 10*3/uL 1.8 - 7.5 10*3/uL [facility] Neutrophils/100 WBC (Bld) 63.8 % 38.0 - 82.0 % [facility] Nucleated RBC/100 WBC (Bld) [Ratio] 0 % [facility] Platelet mean volume (Bld) [Entitic vol] 10.4 fL 9.0 - 12.7 fL [facility] Platelets (Bld) [#/Vol] 150 10*3/uL 140 - 440 10*3/uL [facility] RBC (Bld) [#/Vol] 2.32 10*6/uL Low 3.80 - 5.2 0 10*6/uL [facility] WBC (Bld) [#/Vol] 6.8 10*3/uL 3.6 - 10.7 10*3/uL [facility] CBC WITH AUTO DIFFERENTIALon 04-26-2025 Basophils (Bld) [#/Vol] 0.0 10*3/uL Normal 0.0-0.2 [facility] Comment on above: Performed By: #### L [id number] ####Dispatch Lead: RIKY PICKARD ([id number])[facility])[address] [place] [address] [place] Basophils/100 WBC (Bld) 0.1 % Normal 0.0-2.0 [facility] Comment on above: Performed By: #### L [id number] ####Dispatch Lead: RIKY PICKARD ([id number])[facility])[address] [place] [address] Eosinophils (Bld) [#/Vol] 0.1 10*3/uL Normal 0.0-0.5 [facility] Comment on above: Performed By: #### L [id number] ####Dispatch Lead: RIKY PICKARD ([id number])[facility] ([facility])[address] [place] [address] Eosinophils/100 WBC (Bld) 1.0 % Normal 0.0-6.0 [facility] Comment on above: Performed By: #### L [id number] ####Dispatch Lead: RIKY PICKARD ([id number])[facility])[address] [place] [address] Erythrocyte distribution width (RBC) [Ratio] 14.4 % Normal 11.5-15.0 [facility] Comment on above: Performed By: #### L [id number] ####Dispatch Lead: RIKY PICKARD ([id number])[facility])[address] [place] [address] Hematocrit (Bld) [Volume fraction] 22.2 % Low 35.0-47.0 [facility] Comment on above: Performed By: #### L [id number] ####Dispatch Lead: RIKY [id number])[facility] [place] [address] Hemoglobin (Bld) [Mass/Vol] 7.7 g/dL Low 11.7-16.0 [facility] Comment on above: Performed By: #### L [id number] ####Dispatch Lead: RIKY PICKARD ([id number])[facility])[address] [place] [address] IMMATURE GRANS % 0.4 % Normal 0.0-2.0 [facility] Comment on above: Performed By: #### L [id number] ####Dispatch Lead: RIKY PICKARD ([id number])[address] IMMATURE GRANS ABSOLUTE 0.0 10*3/uL Normal <0.1 [facility] Comment on above: Performed By: #### L [id number] ####Dispatch Lead: RIKY PICKARD ([id number])[facility])[address] [place] [address] Lymphocytes (Bld) [#/Vol] 1.4 10*3/uL Normal 1.0-4.3 [facility] Comment on above: Performed By: #### L [id number] ####Dispatch Lead: RIKY PICKARD ([id number])[facility])[address] [place] [address] Lymphocytes/100 WBC (Bld) 21.3 % Normal 15.0-45.0 [facility] Comment on above: Performed By: #### L [id number] ####Dispatch Lead: RIKY PICKARD ([id number])[facility])[address] [place] [address] MCH (RBC) [Entitic mass] 33.2 pg Normal 26.0-34.0 [facility] Comment on above: Performed By: #### L [id number] ####Dispatch Lead: RIKY PICKARD ([id number])[facility])[address] [place] [address] MCHC 34.7 % Normal 30.5-36.0 [facility] Comment on above: Performed By: #### L [id number] ####Dispatch Lead: RIKY PICKARD ([id number])[facility])[address] [place] [address] MCV (RBC) [Entitic vol] 95.7 fL Normal 77.0-99.0 [facility] Comment on above: Performed By: #### L [id number] ####Dispatch Lead: RIKY PICKARD ([id number])[facility] ([facility])[address] [place] [address] Monocytes (Bld) [#/Vol] 0.9 10*3/uL Normal 0.0-0.9 [facility] Comment on above: Performed By: #### L [id number] ####Dispatch Lead: RIKY PICKARD ([id number])[facility])[address] [place] [address] Monocytes/100 WBC (Bld) 13.4 % High 5.0-13.0 [facility] Comment on above: Performed By: #### L [id number] ####Dispatch Lead: RIKY PICKARD ([id number])[facility])[address] [place] [address] NEUTROPHILS ABSOLUTE 4.3 10*3/uL Normal 1.8-7.5 [facility] Comment on above: Performed By: #### L [id number] ####Dispatch Lead: RIKY PICKARD ([id number])[facility])[address] [place] [address] Neutrophils/100 WBC (Bld) 63.8 % Normal 38.0-82.0 [facility] Comment on above: Performed By: #### L [id number] ####Dispatch Lead: RIKY PICKARD ([id number])[facility])[address] [place] [address] NRBC 0.0 /100 WBCs Normal 0.0-2.0 [facility] Comment on above: Performed By: #### L [id number] ####Dispatch Lead: RIKY PICKARD ([id number])[facility] ([facility])[address] [place] [address] Platelet mean volume (Bld) [Entitic vol] 10.4 fL Normal 9.0-12.7 [facility] Comment on above: Performed By: #### L [id number] ####Dispatch Lead: RIKY PICKARD ([id number])[facility] ([facility])[address] [place] [address] Platelets (Bld) [#/Vol] 150 10*3/uL Normal 140-440 [facility] Comment on above: Performed By: #### L [id number] ####Dispatch Lead: RIKY PICKARD ([id number])[facility] ([facility])[address] [place] [address] RBC (Bld) [#/Vol] 2.32 10*6/uL Low 3.80-5.20 [facility] Comment on above: Performed By: #### L [id number] ####Dispatch Lead: RIKY PICKARD ([id number])[facility] ([facility])[address] [place] [address] WBC (Bld) [#/Vol] 6.8 10*3/uL Normal 3.6-10.7 [facility] Comment on above: Performed By: #### L [id number] ####Dispatch Lead: RIKY PICKARD ([id number])[facility] ([facility])[address] [place] [address] Laboratory - Chemistry and C hemistry - challengeon 04-26-2025 Magnesium [Mass/Vol] 2.3 mg/dL 1.6 - 2 .6 mg/dL [facility] Laboratory - Drug toxicology on 04-26-2025 Phenytoin [Mass/Vol] 17.8 ug/mL 10.0 - 20.0 ug/mL [facility] Phenytoin Free [Mass/Vol] 2.7 ug/mL High 1.0 - 2.5 ug/mL [facility] Phenytoin Free/Total phenytoin [Mass fraction] 15.2 % High 8.0 - 14.0 % [facility] Comment on above: INTERPRETIVE INFORMA TION: Phenytoin, Free And Total Phenytoin - Total Therapeutic: 10.0-20.0 ug/mL Toxic: Greater than 30.0 ug/mL Phenytoin - Free Level Therapeutic: 1.0-2.5 ug/mL Toxic: Greater than 2.5 ug/mL Phenytoin - Percent Free 8.0-14.0% The therapeutic range is based on serum pre-dose (trough) draw at steady-state concentration. Free phenytoin may be important to monitor in patients with altered or unpredictable protein binding capacity because phenytoin is highly bound (greater than 90 percent) at therapeutic concentrations. Phenytoin is also subject to drug-drug interactions due to displacement of protein binding and extensive metabolism. Cross-reactivity with metabolites may account for differences in phenytoin concentrations among analytical methods. Calculating percent free attempts to minimize differences in assay cross-reactivity and may be useful in dose optimization. Performed By: [facility] [address] [place] [address] Green Building Engineer: Francisco Winters MD, PhD CLIA Number: [id number] MAGNESIUMon 04-26-2025 Magnesium [Mass/Vol] 2.3 mg/dL Normal 1.6-2.6 [facility] Comment on above: Result Comment: CHERELLE Zepeda COMMENTS:Higher values can be expected in females during menses. Performed By: #### L AB113, LAB15, [id number] ####Dispatch Lead: RIKY PICKARD ([phone])[address] Magnesium [Mass/Vol]on 04-26 Interpretation and review of laboratory results Normal [facility] Higher values can be expected in females during menses. [facility] No Panel Informationon 04-26 Interpretation and review of laboratory results Abnormal [facility] Interpretation and review of laboratory results Abnormal [facility] PHOSPHORUSon 04-26-2025 Phosphate [Mass/Vol] 2.1 mg/dL Low 2.3-4.7 [facility] Comment on above: Performed By: #### L AB113, LAB15, [id number] ####Dispatch Lead: RIKY PICKARD ([id number])[address] Phosphate [Moles/Vol]on 04-14 Phosphate [Mass/Vol] 2.1 mg/dL Low 2.3 - 4 .7 mg/dL [facility] Progress Noteon 04-26-2025 Progress Note Normal [facility] [id number] 04-25-2025 [id number] Normal [facility] 25-hydroxyvitamin D3 [Mass/V ol]on 04-25-2025 Interpretation and review of laboratory results Abnormal [facility] Target concentration : 30 - 40 ng/mL; toxicity seen at concentrations >100 ng/mL Less than 20 ng/mL: Indicative of Vit D deficiency Test performed by [employer], measuring Total Vitamin D, not individual fractions. [facility] [id number] 04-25-2025 [id number] Normal [facility] BASIC METABOLIC PANELon 04-14 Anion gap [Moles/Vol] 4 mmol/L Normal 3-13 [facility] Comment on above: Performed By: #### L AB103, LAB15, [id number] ####Dispatch Lead: RIKY PICKARD ([id number])[facility] ([facility])[address] [place] [address] [place] Calcium [Mass/Vol] 8.3 mg/dL Low 8.8-10.0 [facility] Comment on above: Performed By: #### L AB103, LAB15, [id number] ####Dispatch Lead: RIKY PICKARD ([id number])[facility] ([facility])[address] [place] [address] [place] Chloride [Moles/Vol] 104 mmol/L Normal 98-107 [facility] Comment on above: Performed By: #### L AB103, LAB15, [id number] ####Dispatch Lead: RIKY PICKARD ([id number])[facility] [place] [address] [place] CO2 [Moles/Vol] 24 mmol/L Normal 23-31 [facility] Comment on above: Performed By: #### L AB103, LAB15, [id number] ####Dispatch Lead: RIKY PICKARD ([id number])[facility])[address] [place] [address] Creatinine [Mass/Vol] 0.48 mg/dL Low 0.57-1.11 [facility] Comment on above: Performed By: #### L AB103, LAB15, [id number] ####Dispatch Lead: RIKY PICKARD ([id number])[facility])[address] [place] [address] GLOMERULAR FILTRATION RATE ML/MIN/1.73 SQ M.PREDICTED >90.0 Normal >60.0 [facility] Comment on above: Result Comment: Calc ulation based on the Chronic Kidney Disease Epidemiology Collaboration (CKD-EPI) equation refit without adjustment for race Performed By: #### L AB103, LAB15, [id number] ####Dispatch Lead: RIKY PICKARD ([id number])[facility] ([facility])[address] [place] [address] Glucose [Mass/Vol] 104 mg/dL Normal 82-115 [facility] Comment on above: Performed By: #### L AB103, LAB15, [id number] ####Dispatch Lead: RIKY PICKARD ([id number])[facility])[address] [place] [address] Potassium [Moles/Vol] 3.8 mmol/L Normal 3.5-5.1 [facility] Comment on above: Result Comment: [facility] potassium values may be up to 0.5 mmol/L lower than serum values. Performed By: #### L AB103, LAB15, [id number] ####Dispatch Lead: RIKY PICKARD ([id number])[facility] ([facility])[address] [place] [address] [place] Sodium [Moles/Vol] 132 mmol/L Low 136-145 [facility] Comment on above: Performed By: #### L AB103, LAB15, [id number] ####Dispatch Lead: RIKY PICKARD ([id number])[facility])[address] [place] [address] [place] Urea nitrogen [Mass/Vol] 15 mg/dL Normal 9-23 [facility] Comment on above: Performed By: #### L AB103, LAB15, [id number] ####Dispatch Lead: RIKY PICKARD ([id number])[facility])[address] [place] [address] Basic metabolic 1998 panelon 04-25-2025 Anion gap [Moles/Vol] 4 mmol/L 3 - 13 mmol/L [facility] Calcium [Mass/Vol] 8.3 mg/dL Low 8.8 - 10. 0 mg/dL [facility] Chloride [Moles/Vol] 104 mmol/L 98 - 10 7 mmol/L [facility] CO2 [Moles/Vol] 24 mmol/L 23 - 31 mmol/L [facility] Creatinine [Mass/Vol] 0.48 mg/dL Low 0.57 - 1.11 mg/dL [facility] GFR/1.73 sq M.predicted (S/P/Bld) [Vol rate/Area] - PINF [facility] Comment on above: Calculation based on the Chronic Kidney Disease Epidemiology Collaboration (CKD-EPI) equation refit without adjustment for race Glucose [Mass/Vol] 104 mg/dL 82 - 115 mg/dL [facility] Potassium [Moles/Vol] 3.8 mmol/L 3.5 - 5.1 mmol/L [facility] Comment on above: Plasma potassium dede ues may be up to 0.5 mmol/L lower than serum values. Sodium [Moles/Vol] 132 mmol/L Low 136 - 145 mmol/L [facility] Urea nitrogen [Mass/Vol] 15 mg/dL 9 - 23 mg/dL [facility] HEMOGLOBIN AND HEMATOCRIT, B LOODon 04-25-2025 Hematocrit (Bld) [Volume fraction] 24.1 % Low 35.0-47.0 [facility] Comment on above: Performed By: #### L AB753 ####Dispatch Lead: RIKY PICKARD ([id number])[facility])[address] [place] [address] Hemoglobin (Bld) [Mass/Vol] 8.4 g/dL Low 11.7-16.0 [facility] Comment on above: Performed By: #### L AB753 ####Dispatch Lead: RIKY PICKARD ([id number])[facility] ([facility])[address] [place] [address] Hemoglobin (Bld) [Mass/Vol]o n 04-25-2025 Hematocrit (Bld) [Volume fraction] 24.1 % Low 35.0 - 47.0 % [facility] Interpretation and review of laboratory results Abnormal [facility] Laboratory - Chemistry and C hemistry - challengeon 04-25-2025 25-hydroxyvitamin D3 [Mass/Vol] 7 ng/mL Low 20 - 50 ng/mL [facility] Magnesium [Mass/Vol] 2.4 mg/dL 1.6 - 2 .6 mg/dL [facility] Laboratory - Hematology and Cell countson 04-25-2025 Hemoglobin (Bld) [Mass/Vol] 8.4 g/dL Low 11.7 - 16.0 g/dL [facility] MAGNESIUMon 04-25-2025 Magnesium [Mass/Vol] 2.4 mg/dL Normal 1.6-2.6 [facility] Comment on above: Result Comment: CHERELLE Zepeda COMMENTS:Higher values can be expected in females during menses. Performed By: #### L AB103, LAB15, [id number] ####Dispatch Lead: RIKY PICKARD ([phone])[facility] ([facility])[address] [place] [address] Magnesium [Mass/Vol]on 04-25 Interpretation and review of laboratory results Normal [facility] Higher values can be expected in females during menses. [facility] No Panel Informationon 04-25 Interpretation and review of laboratory results Abnormal [facility] Blood Expiration Date [id number] [facility] Crossmatch interpretation COMP [facility] Dispense Status Released from [employer] [facility] Product Blood Type 5100 [facility] PRODUCT CODE [id number] [facility] ABO O [facility] Number [id number] [facility] RH Positive [facility] Volume 300 mL [facility] PHOSPHORUSon 04-25-2025 Phosphate [Mass/Vol] 2.0 mg/dL Low 2.3-4.7 [facility] Comment on above: Performed By: #### L AB103, LAB15, VAP778 ####Dispatch Lead: RIKY PICKARD ([id number])[facility])[address] [place] [address] [place] Phosphate [Moles/Vol]on 04-14 Phosphate [Mass/Vol] 2 mg/dL Low 2.3 - 4 .7 mg/dL [facility] Progress Noteon 04-25-2025 Progress Note Normal [facility] Progress Note Normal [facility] Progress Note 30-day outpatient event monitor ordered. Normal [facility] Progress Note Normal [facility] Progress Note Normal [facility] VITAMIN D DEFICIENCY SCREENI NG (VIT D 25)on 04-25-2025 VIT D 25-OH, TOTAL 7 ng/mL Low See comment [facility] Comment on above: Result Comment: CHERELLE Zepeda COMMENTS:Target concentration: 30 - 40 ng/mL; toxicity seen at concentrations >100 ng/mLLess than 20 ng/mL: Indicative of Vit D deficiencyTest performed by [employer], measuring Total Vitamin D, not individual fractions. Performed By: #### L AB535 ####Dispatch Lead: RIKY PICKARD ([id number])[facility] ([facility])[address] [place] [address] [place] [id number] 04-24-2025 [id number] Normal [facility] BASIC METABOLIC PANELon 04-14 Anion gap [Moles/Vol] 4 mmol/L Normal 3-13 [facility] Comment on above: Performed By: #### L AB15 ####Dispatch Lead: RIKY PICKARD ([id number])[facility] ([facility])[address] [place] [address] [place] Calcium [Mass/Vol] 8.2 mg/dL Low 8.8-10.0 [facility] Comment on above: Performed By: #### L AB15 ####Dispatch Lead: RIKY PICKARD ([id number])[facility] ([facility])[address] [place] [address] [place] Chloride [Moles/Vol] 104 mmol/L Normal 98-107 [facility] Comment on above: Performed By: #### L AB15 ####Dispatch Lead: RIKY PICKARD ([id number])[facility] ([facility])[address] [place] [address] CO2 [Moles/Vol] 23 mmol/L Normal 23-31 [facility] Comment on above: Performed By: #### L AB15 ####Dispatch Lead: RIKY PICKARD ([id number])[facility])[address] [place] [address] Creatinine [Mass/Vol] 0.51 mg/dL Low 0.57-1.11 [facility] Comment on above: Performed By: #### L AB15 ####Dispatch Lead: RIKY PICKARD ([phone])[facility] ([facility])[address] [place] [address] GLOMERULAR FILTRATION RATE ML/MIN/1.73 SQ M.PREDICTED >90.0 Normal >60.0 [facility] Comment on above: Result Comment: Calc ulation based on the Chronic Kidney Disease Epidemiology Collaboration (CKD-EPI) equation refit without adjustment for race Performed By: #### L AB15 ####Dispatch Lead: RIKY PICKARD ([id number])[facility])[address] [place] [address] Glucose [Mass/Vol] 110 mg/dL Normal 82-115 [facility] Comment on above: Performed By: #### L AB15 ####Dispatch Lead: RIKY PICKARD ([id number])[facility] ([facility])[address] [place] [address] Potassium [Moles/Vol] 3.6 mmol/L Normal 3.5-5.1 [facility] Comment on above: Result Comment: [facility] potassium values may be up to 0.5 mmol/L lower than serum values. Performed By: #### L AB15 ####Dispatch Lead: RIKY PICKARD ([id number])[facility])[address] [place] [address] Sodium [Moles/Vol] 131 mmol/L Low 136-145 [facility] Comment on above: Performed By: #### L AB15 ####Dispatch Lead: RIKY PICKARD ([id number])[facility])[address] [place] [address] Urea nitrogen [Mass/Vol] 15 mg/dL Normal 9-23 [facility] Comment on above: Performed By: #### L AB15 ####Dispatch Lead: RIKY PICKARD ([id number])[facility] ([facility])[address] [place] [address] Basic metabolic 1998 panelon 04-24-2025 Anion gap [Moles/Vol] 4 mmol/L 3 - 13 mmol/L [facility] Calcium [Mass/Vol] 8.2 mg/dL Low 8.8 - 10. 0 mg/dL [facility] Chloride [Moles/Vol] 104 mmol/L 98 - 10 7 mmol/L [facility] CO2 [Moles/Vol] 23 mmol/L 23 - 31 mmol/L [facility] Creatinine [Mass/Vol] 0.51 mg/dL Low 0.57 - 1.11 mg/dL [facility] GFR/1.73 sq M.predicted (S/P/Bld) [Vol rate/Area] - PINF [facility] Comment on above: Calculation based on the Chronic Kidney Disease Epidemiology Collaboration (CKD-EPI) equation refit without adjustment for race Glucose [Mass/Vol] 110 mg/dL 82 - 115 mg/dL [facility] Interpretation and review of laboratory results Abnormal [facility] Potassium [Moles/Vol] 3.6 mmol/L 3.5 - 5.1 mmol/L [facility] Comment on above: Plasma potassium dede ues may be up to 0.5 mmol/L lower than serum values. Sodium [Moles/Vol] 131 mmol/L Low 136 - 145 mmol/L [facility] Urea nitrogen [Mass/Vol] 15 mg/dL 9 - 23 mg/dL [facility] CALCIUM, IONIZEDon CALCIUM IONIZED 4.30 mg/dL Normal 4.30-5.20 [facility] Comment on above: Performed By: #### L AB54 ####Dispatch Lead: RIKY PICKARD ([id number])[facility])[address] [place] [address] PH, IONIZED CALCIUM 7.48 High 7.31-7.46 [facility] Comment on above: Performed By: #### L AB54 ####Dispatch Lead: RIKY PICKARD ([phone])[facility])[address] [place] [address] CBC (HEMOGRAM)on 04-24-2025 Erythrocyte distribution width (RBC) [Ratio] 14.3 % Normal 11.5-15.0 [facility] Comment on above: Performed By: #### L AB294 ####Dispatch Lead: RIKY PICKARD ([id number])[facility])[address] [place] [address] Hematocrit (Bld) [Volume fraction] 24.5 % Low 35.0-47.0 [facility] Comment on above: Performed By: #### L AB294 ####Dispatch Lead: RIKY PICKARD ([id number])[address] Hemoglobin (Bld) [Mass/Vol] 8.3 g/dL Low 11.7-16.0 [facility] Comment on above: Performed By: #### L AB294 ####Dispatch Lead: IRKY PICKARD ([id number])[facility])[address] [place] [address] IPF 5 Normal [facility] Comment on above: Performed By: #### L AB294 ####Dispatch Lead: RIKY PICKARD ([id number])[facility])[address] [place] [address] MCH (RBC) [Entitic mass] 32.8 pg Normal 26.0-34.0 [facility] Comment on above: Performed By: #### L AB294 ####Dispatch Lead: RIKY PICKARD ([id number])[address] MCHC 33.9 % Normal 30.5-36.0 [facility] Comment on above: Performed By: #### L AB294 ####Dispatch Lead: RIKY PICKARD ([id number])[facility] ([facility])[address] [place] [address] MCV (RBC) [Entitic vol] 96.8 fL Normal 77.0-99.0 [facility] Comment on above: Performed By: #### L AB294 ####Dispatch Lead: RIKY PICKARD ([id number])[facility] ([facility])[address] [place] [address] Platelet mean volume (Bld) [Entitic vol] 10.6 fL Normal 9.0-12.7 [facility] Comment on above: Performed By: #### L AB294 ####Dispatch Lead: RIKY PICKARD ([id number])[facility] ([facility])[address] [place] [address] Platelets (Bld) [#/Vol] 97 10*3/uL Low 140-440 [facility] Comment on above: Performed By: #### L AB294 ####Dispatch Lead: RIKY PICKARD ([id number])[facility] ([facility])[address] [place] [address] RBC (Bld) [#/Vol] 2.53 10*6/uL Low 3.80-5.20 [facility] Comment on above: Performed By: #### L AB294 ####Dispatch Lead: RIKY PICKARD ([phone])[facility])[address] [place] [address] WBC (Bld) [#/Vol] 6.3 10*3/uL Normal 3.6-10.7 [facility] Comment on above: Performed By: #### L AB294 ####Dispatch Lead: RIKY PICKARD ([id number])[facility])[address] [place] [address] Erythrocyte distribution width (RBC) [Ratio] 14.4 % Normal 11.5-15.0 [facility] Comment on above: Performed By: #### L AB294 ####Dispatch Lead: RIKY PICKARD ([id number])[facility])[address] [place] [address] Hematocrit (Bld) [Volume fraction] 25.3 % Low 35.0-47.0 [facility] Comment on above: Performed By: #### L AB294 ####Dispatch Lead: RIKY PICKARD ([id number])[facility])[address] [place] [address] Hemoglobin (Bld) [Mass/Vol] 8.8 g/dL Low 11.7-16.0 [facility] Comment on above: Performed By: #### L AB294 ####Dispatch Lead: RIKY PICKARD ([id number])[facility])[address] [place] [address] IPF 5 Normal [facility] Comment on above: Performed By: #### L AB294 ####Dispatch Lead: RIKY PICKARD ([id number])[facility])[address] [place] [address] MCH (RBC) [Entitic mass] 33.2 pg Normal 26.0-34.0 [facility] Comment on above: Performed By: #### L AB294 ####Dispatch Lead: RIKY PICKARD ([id number])[facility])[address] [place] [address] MCHC 34.8 % Normal 30.5-36.0 [facility] Comment on above: Performed By: #### L AB294 ####Dispatch Lead: RIKY PICKARD ([id number])[facility])[address] [place] [address] MCV (RBC) [Entitic vol] 95.5 fL Normal 77.0-99.0 S [facility] Comment on above: Performed By: #### L AB294 ####Dispatch Lead: RIKY PICKARD ([id number])[facility])[address] [place] [address] Platelet mean volume (Bld) [Entitic vol] 10.5 fL Normal 9.0-12.7 [facility] Comment on above: Performed By: #### L AB294 ####Dispatch Lead: RIKY PICKARD ([phone])[facility] ([facility])[address] [place] [address] Platelets (Bld) [#/Vol] 87 10*3/uL Low 140-440 [facility] Comment on above: Performed By: #### L AB294 ####Dispatch Lead: RIKY PICKARD ([id number])[facility] ([facility])[address] [place] [address] RBC (Bld) [#/Vol] 2.65 10*6/uL Low 3.80-5.20 [facility] Comment on above: Performed By: #### L AB294 ####Dispatch Lead: RIKY PICKARD ([id number])[facility] ([facility])[address] [place] [address] WBC (Bld) [#/Vol] 6.0 10*3/uL Normal 3.6-10.7 [facility] Comment on above: Performed By: #### L AB294 ####Dispatch Lead: RIKY PICKARD ([id number])[facility])[address] [place] [address] CBC panel Auto (Bld)on 04-24 Erythrocyte distribution width (RBC) [Ratio] 14.3 % 11.5 - 15.0 % [facility] Hematocrit (Bld) [Volume fraction] 24.5 % Low 35.0 - 47.0 % [facility] Hemoglobin (Bld) [Mass/Vol] 8.3 g/dL Low 11.7 - 16.0 g/dL [facility] Interpretation and review of laboratory results Abnormal [facility] IPF 5 [facility] MCH (RBC) [Entitic mass] 32.8 pg 26.0 - 34.0 pg [facility] MCHC (RBC) [Mass/Vol] 33.9 % 30.5 - 36.0 % [facility] MCV (RBC) [Entitic vol] 96.8 fL 77.0 - 99.0 fL [facility] Platelet mean volume (Bld) [Entitic vol] 10.6 fL 9.0 - 12.7 fL [facility] Platelets (Bld) [#/Vol] 97 10*3/uL Low 140 - 440 10*3/uL [facility] RBC (Bld) [#/Vol] 2.53 10*6/uL Low 3.80 - 5.2 0 10*6/uL [facility] WBC (Bld) [#/Vol] 6.3 10*3/uL 3.6 - 10.7 10*3/uL [facility] CBC panel Auto (Bld)Ordered By: Erinn Elliott on 04-24-2025 Erythrocyte distribution width (RBC) [Ratio] 14.4 % 11.5 - 15.0 % [facility] Hematocrit (Bld) [Volume fraction] 25.3 % Low 35.0 - 47.0 % [facility] Hemoglobin (Bld) [Mass/Vol] 8.8 g/dL Low 11.7 - 16.0 g/dL [facility] Interpretation and review of laboratory results Abnormal [facility] IPF 5 [facility] MCH (RBC) [Entitic mass] 33.2 pg 26.0 - 34.0 pg [facility] MCHC (RBC) [Mass/Vol] 34.8 % 30.5 - 36.0 % [facility] MCV (RBC) [Entitic vol] 95.5 fL 77.0 - 99.0 fL [facility] Platelet mean volume (Bld) [Entitic vol] 10.5 fL 9.0 - 12.7 fL [facility] Platelets (Bld) [#/Vol] 87 10*3/uL Low 140 - 440 10*3/uL [facility] RBC (Bld) [#/Vol] 2.65 10*6/uL Low 3.80 - 5.2 0 10*6/uL [facility] WBC (Bld) [#/Vol] 6 10*3/uL 3.6 - 10.7 10*3/uL [facility] Calcium.ionized [Moles/Vol]O rdered By: Krupa Dia on 04-24-2025 Calcium.ionized (Bld) [Moles/Vol] 4.3 mg/dL 4.30 - 5.20 mg/dL [facility] Interpretation and review of laboratory results Abnormal [facility] PH, IONIZED CALCIUM 7.48 High 7.31 - 7.46 [facility] Consulton 04-24-2025 Consult Normal [facility] Laboratory - Chemistry and C hemistry - challengeon 04-24-2025 TSH Qn 1.44 m[IU]/L [facility] Magnesium [Mass/Vol] 1.9 mg/dL 1.6 - 2 .6 mg/dL [facility] Magnesium [Mass/Vol]on 04-24 Interpretation and review of laboratory results Normal [facility] Higher values can be expected in females during menses. [facility] PHENYTOIN TOTAL AND FREEon 0 04-24-2025 PHENYTOIN - FREE LEVEL 2.7 ug/mL High 1.0-2.5 [facility] Comment on above: Performed By: #### L AB176 ####[employer] ([facility])[address] [place] [address] [place] PHENYTOIN - PERCENT FREE 15.2 % High 8.0-14.0 [facility] Comment on above: Result Comment: INTE RPRETIVE INFORMATION: Phenytoin, Free And TotalPhenytoin - TotalTherapeutic: 10.0-20.0 ug/mLToxic: Greater than 30.0 ug/mLPhenytoin - Free LevelTherapeutic: 1.0-2.5 ug/mLToxic: Greater than 2.5 ug/mLPhenytoin - Percent Free8.0-14.0%The therapeutic range is based on serum pre-dose (trough) draw atsteady-state concentration. Free phenytoin may be important tomonitor in patients with altered or unpredictable protein bindingcapacity because phenytoin is highly bound (greater than 90percent) at therapeutic concentrations. Phenytoin is also subjectto drug-drug interactions due to displacement of protein bindingand extensive metabolism. Cross-reactivity with metabolites mayaccount for differences in phenytoin concentrations amonganalytical methods. Calculating percent free attempts to minimizedifferences in assay cross-reactivity and may be useful in doseoptimization.Performed By: [facility] [place] [id number] Director: Francisco Winters MD, PhDCLIA Number: [id number] Performed By: #### L [id number] ####[facility] ([facility])[address] [place] [address] [place] PHENYTOIN - TOTAL-[facility] 17.8 ug/mL Normal 10.0-20.0 [facility] Comment on above: Performed By: #### L AB176 ####[facility] ([facility])[address] [place] [address] [place] Phosphate [Moles/Vol]on 04-14 Interpretation and review of laboratory results Abnormal [facility] [place] [facility] Phosphate [Mass/Vol] 1.8 mg/dL Low 2.3 - 4 .7 mg/dL [facility] Progress Noteon 04-24-2025 Progress Note Normal [facility] Progress Note Normal [facility] Progress Note Normal [facility] Progress [facility] Normal [facility] Progress Note Normal [facility] THYROID STIMULATING HORMONEo n 04-24-2025 THYROID STIMULATING HORMONE 1.44 uIU/mL Normal 0.35-4.94 [facility] Comment on above: Performed By: #### L AB129 ####Dispatch Lead: RIKY PICKARD ([id number])[facility] ([facility])[address] [place] [address] [place] TSH Qnon 04-24-2025 Interpretation and review of laboratory results Normal [facility] [id number] 04-23-2025 [id number] Normal [facility] BASIC METABOLIC PANELon 04-14 Anion gap [Moles/Vol] 6 mmol/L Normal 3-13 [facility] Comment on above: Performed By: #### L AB15, [id number], [id number] ####Dispatch Lead: RIKY PICKARD ([phone])[facility] ([facility])[address] [place] [address] [place] Calcium [Mass/Vol] 7.9 mg/dL Low 8.8-10.0 [facility] Comment on above: Performed By: #### L AB15, [id number], [id number] ####Dispatch Lead: RIKY PICKARD ([phone])[facility] ([facility])[address] [place] [address] [place] Chloride [Moles/Vol] 105 mmol/L Normal 98-107 [facility] Comment on above: Performed By: #### L AB15, [id number], [id number] ####Dispatch Lead: RIKY PICKARD ([phone])[facility])[address] [place] [address] CO2 [Moles/Vol] 20 mmol/L Low 23-31 [facility] Comment on above: Performed By: #### L AB15, [id number], [id number] ####Dispatch Lead: RIKY PICKARD ([phone])[facility])[address] [place] [address] Creatinine [Mass/Vol] 0.52 mg/dL Low 0.57-1.11 [facility] Comment on above: Performed By: #### [place] AB15, [id number], [id number] ####Dispatch Lead: RIKY PICKARD ([id number])[facility])[address] [place] [address] GLOMERULAR FILTRATION RATE ML/MIN/1.73 SQ M.PREDICTED >90.0 Normal >60.0 [facility] Comment on above: Result Comment: Calc ulation based on the Chronic Kidney Disease Epidemiology Collaboration (CKD-EPI) equation refit without adjustment for race Performed By: #### L AB15, [id number], [id number] ####Dispatch Lead: RIKY PICKARD ([phone])[facility] ([facility])[address] [place] [address] [place] Glucose [Mass/Vol] 151 mg/dL High 82-115 [facility] Comment on above: Performed By: #### L AB15, [id number], [id number] ####Dispatch Lead: RIKY PICKARD ([id number])[facility])[address] [place] [address] [place] Potassium [Moles/Vol] 3.7 mmol/L Normal 3.5-5.1 [facility] Comment on above: Result Comment: [facility] potassium values may be up to 0.5 mmol/L lower than serum values. Performed By: #### L AB15, [id number], HDE533 ####Dispatch Lead: RIKY PICKARD ([phone])[facility] [place] [address] [place] Sodium [Moles/Vol] 131 mmol/L Low 136-145 [facility] Comment on above: Performed By: #### L AB15, OQP779, ZRG671 ####Dispatch Lead: RIKY PICKARD ([id number])[facility] [place] [address] [place] Urea nitrogen [Mass/Vol] 15 mg/dL Normal 9-23 [facility] Comment on above: Performed By: #### L AB15, AVQ101, TPM225 ####Dispatch Lead: RIKY PICKARD ([id number])[facility] ([facility])[address] [place] [address] Anion gap [Moles/Vol] 5 mmol/L Normal 3-13 [facility] Comment on above: Performed By: #### L AB15 ####Dispatch Lead: RIKY PICKARD ([id number])[facility] [place] [address] Calcium [Mass/Vol] 7.8 mg/dL Low 8.8-10.0 [facility] Comment on above: Performed By: #### L AB15 ####Dispatch Lead: RIKY PICKARD ([phone])[facility] [place] [address] [place] Chloride [Moles/Vol] 105 mmol/L Normal 98-107 [facility] Comment on above: Performed By: #### L AB15 ####Dispatch Lead: RIKY PICKARD ([id number])[facility] [place] [address] [place] CO2 [Moles/Vol] 22 mmol/L Low 23-[address] [facility] Comment on above: Performed By: #### L AB15 ####Dispatch Lead: RIKY PICKARD ([id number])[facility] [place] [address] [place] Creatinine [Mass/Vol] 0.59 mg/dL Normal 0.57-1.11 [facility] Comment on above: Performed By: #### L AB15 ####Dispatch Lead: RIKY PICKARD ([id number])[facility])[address] [place] [address] GLOMERULAR FILTRATION RATE ML/MIN/1.73 SQ M.PREDICTED 89.6 mL/min/1.73m*2 Normal >60.0 [facility] Comment on above: Result Comment: Calc ulation based on the Chronic Kidney Disease Epidemiology Collaboration (CKD-EPI) equation refit without adjustment for race Performed By: #### L AB15 ####Dispatch Lead: RIKY PICKARD ([phone])[facility])[address] [place] [address] Glucose [Mass/Vol] 112 mg/dL Normal 82-115 [facility] Comment on above: Performed By: #### L AB15 ####Dispatch Lead: RIKY PICKARD ([id number])[address] Potassium [Moles/Vol] 3.6 mmol/L Normal 3.5-5.1 [facility] Comment on above: Result Comment: [facility] potassium values may be up to 0.5 mmol/L lower than serum values. Performed By: #### L AB15 ####Dispatch Lead: RIKY PICKARD ([phone])[address] Sodium [Moles/Vol] 132 mmol/L Low 136-145 [facility] Comment on above: Performed By: #### L AB15 ####Dispatch Lead: RIKY PICKARD ([id number])[facility])[address] [place] [address] Urea nitrogen [Mass/Vol] 21 mg/dL Normal 9-23 [facility] Comment on above: Performed By: #### L AB15 ####Dispatch Lead: RIKY [id number])[address] Basic metabolic 1998 panelon 04-23-2025 Anion gap [Moles/Vol] 6 mmol/L 3 - 13 mmol/L [facility] [place] [facility] Calcium [Mass/Vol] 7.9 mg/dL Low 8.8 - 10. 0 mg/dL [facility] [place] [facility] Chloride [Moles/Vol] 105 mmol/L 98 - 10 7 mmol/L [facility] CO2 [Moles/Vol] 20 mmol/L Low 23 - 31 mmol/L [facility] [place] [facility] Creatinine [Mass/Vol] 0.52 mg/dL Low 0.57 - 1.11 mg/dL [facility] [place] [facility] GFR/1.73 sq M.predicted (S/P/Bld) [Vol rate/Area] - [facility] Comment on above: Calculation based on the Chronic Kidney Disease Epidemiology Collaboration (CKD-EPI) equation refit without adjustment for race Glucose [Mass/Vol] 151 mg/dL High 82 - 115 mg/dL [facility] [place] [facility] Interpretation and review of laboratory results Abnormal [facility] Potassium [Moles/Vol] 3.7 mmol/L 3.5 - 5.1 mmol/L [facility] Comment on above: Plasma potassium dede ues may be up to 0.5 mmol/L lower than serum values. Sodium [Moles/Vol] 131 mmol/L Low 136 - 145 mmol/L [facility] Urea nitrogen [Mass/Vol] 15 mg/dL 9 - 23 mg/dL [facility] Anion gap [Moles/Vol] 5 mmol/L 3 - 13 mmol/L [facility] Calcium [Mass/Vol] 7.8 mg/dL Low 8.8 - 10. 0 mg/dL [facility] Chloride [Moles/Vol] 105 mmol/L 98 - 10 7 mmol/L [facility] CO2 [Moles/Vol] 22 mmol/L Low 23 - 31 mmol/L [facility] Creatinine [Mass/Vol] 0.59 mg/dL 0.57 - 1.11 mg/dL [facility] GFR/1.73 sq M.predicted (S/P/Bld) [Vol rate/Area] 89.6 mL/min - [facility] Comment on above: Calculation based on the Chronic Kidney Disease Epidemiology Collaboration (CKD-EPI) equation refit without adjustment for race Glucose [Mass/Vol] 112 mg/dL 82 - 115 mg/dL [facility] Interpretation and review of laboratory results Abnormal [facility] Potassium [Moles/Vol] 3.6 mmol/L 3.5 - 5.1 mmol/L [facility] Comment on above: Plasma potassium dede ues may be up to 0.5 mmol/L lower than serum values. Sodium [Moles/Vol] 132 mmol/L Low 136 - 145 mmol/L [facility] Urea nitrogen [Mass/Vol] 21 mg/dL 9 - 23 mg/dL [facility] CBC (HEMOGRAM)on 04-23-2025 Erythrocyte distribution width (RBC) [Ratio] 14.4 % Normal 11.5-15.0 [facility] Comment on above: Performed By: #### L AB294 ####Dispatch Lead: RIKY PICKARD ([id number])[facility])[address] [place] [address] Hematocrit (Bld) [Volume fraction] 24.0 % Low 35.0-47.0 [facility] Comment on above: Performed By: #### L AB294 ####Dispatch Lead: RIKY PICKARD ([phone])[facility])[address] [place] [address] Hemoglobin (Bld) [Mass/Vol] 8.5 g/dL Low 11.7-16.0 [facility] Comment on above: Performed By: #### L AB294 ####Dispatch Lead: RIKY PICKARD ([id number])[facility])[address] [place] [address] [place] IPF 4 Normal [facility] Comment on above: Performed By: #### L AB294 ####Dispatch Lead: RIKY PICKARD ([id number])[facility])[address] [place] [address] MCH (RBC) [Entitic mass] 33.5 pg Normal 26.0-34.0 [facility] Comment on above: Performed By: #### L AB294 ####Dispatch Lead: RIKY PICKARD ([id number])[facility])[address] [place] [address] MCHC 35.4 % Normal 30.5-36.0 [facility] Comment on above: Performed By: #### L AB294 ####Dispatch Lead: RIKY PICKARD ([phone])[facility])[address] [place] [address] MCV (RBC) [Entitic vol] 94.5 fL Normal 77.0-99.0 [facility] Comment on above: Performed By: #### L AB294 ####Dispatch Lead: RIKY PICKARD ([id number])[facility] ([facility])[address] [place] [address] Platelet mean volume (Bld) [Entitic vol] 10.7 fL Normal 9.0-12.7 [facility] Comment on above: Performed By: #### L AB294 ####Dispatch Lead: RIKY PICKARD ([id number])[facility] ([facility])[address] [place] [address] Platelets (Bld) [#/Vol] 98 10*3/uL Low 140-440 [facility] Comment on above: Performed By: #### L AB294 ####Dispatch Lead: RIKY PICKARD ([id number])[facility] ([facility])[address] [place] [address] RBC (Bld) [#/Vol] 2.54 10*6/uL Low 3.80-5.20 [facility] Comment on above: Performed By: #### L AB294 ####Dispatch Lead: RIKY PICKARD ([id number])[facility] ([facility])[address] [place] [address] WBC (Bld) [#/Vol] 7.5 10*3/uL Normal 3.6-10.7 [facility] Comment on above: Performed By: #### L AB294 ####Dispatch Lead: RIKY PICKARD ([id number])[facility])[address] [place] [address] Erythrocyte distribution width (RBC) [Ratio] 14.3 % Normal 11.5-15.0 [facility] Comment on above: Performed By: #### L AB294 ####Dispatch Lead: RIKY PICKARD ([id number])[facility])[address] [place] [address] Hematocrit (Bld) [Volume fraction] 25.5 % Low 35.0-47.0 [facility] Comment on above: Performed By: #### L AB294 ####Dispatch Lead: RIKY PICKARD ([id number])[facility])[address] [place] [address] Hemoglobin (Bld) [Mass/Vol] 8.8 g/dL Low 11.7-16.0 [facility] Comment on above: Performed By: #### L AB294 ####Dispatch Lead: RIKY PICKARD ([phone])[facility])[address] [place] [address] IPF 4 Normal [facility] Comment on above: Performed By: #### L AB294 ####Dispatch Lead: RIKY PICKARD ([id number])[facility] ([facility])[address] [place] [address] MCH (RBC) [Entitic mass] 33.0 pg Normal 26.0-34.0 [facility] Comment on above: Performed By: #### L AB294 ####Dispatch Lead: RIKY PICKARD ([id number])[facility])[address] [place] [address] MCHC 34.5 % Normal 30.5-36.0 [facility] Comment on above: Performed By: #### L AB294 ####Dispatch Lead: RIKY PICKARD ([id number])[facility])[address] [place] [address] MCV (RBC) [Entitic vol] 95.5 fL Normal 77.0-99.0 S [facility] Comment on above: Performed By: #### L AB294 ####Dispatch Lead: RIKY PICKARD ([id number])[facility])[address] [place] [address] Platelet mean volume (Bld) [Entitic vol] 10.7 fL Normal 9.0-12.7 [facility] Comment on above: Performed By: #### L AB294 ####Dispatch Lead: RIKY PICKARD ([id number])[facility] ([facility])[address] [place] [address] Platelets (Bld) [#/Vol] 84 10*3/uL Low 140-440 [facility] Comment on above: Performed By: #### L AB294 ####Dispatch Lead: RIKY PICKARD ([id number])[facility] ([facility])[address] [place] [address] RBC (Bld) [#/Vol] 2.67 10*6/uL Low 3.80-5.20 [facility] Comment on above: Performed By: #### L AB294 ####Dispatch Lead: RIKY PICKARD ([phone])[facility] ([facility])[address] [place] [address] WBC (Bld) [#/Vol] 6.6 10*3/uL Normal 3.6-10.7 [facility] Comment on above: Performed By: #### L AB294 ####Dispatch Lead: RIKY PICKARD ([phone])[facility])[address] [place] [address] Erythrocyte distribution width (RBC) [Ratio] 14.5 % Normal 11.5-15.0 [facility] Comment on above: Performed By: #### L AB294 ####Dispatch Lead: RIKY PICKARD ([phone])[facility])[address] [place] [address] Hematocrit (Bld) [Volume fraction] 25.3 % Low 35.0-47.0 [facility] Comment on above: Performed By: #### L AB294 ####Dispatch Lead: RIKY PICKARD ([id number])[facility])[address] [place] [address] Hemoglobin (Bld) [Mass/Vol] 8.8 g/dL Low 11.7-16.0 [facility] Comment on above: Performed By: #### L AB294 ####Dispatch Lead: RIKY PICKARD ([phone])[facility])[address] [place] [address] IPF 4 Normal [facility] Comment on above: Performed By: #### L AB294 ####Dispatch Lead: RIKY PICKARD ([phone])[facility])[address] [place] [address] MCH (RBC) [Entitic mass] 33.1 pg Normal 26.0-34.0 [facility] Comment on above: Performed By: #### L AB294 ####Dispatch Lead: RIKY PICKARD ([id number])[facility])[address] [place] [address] MCHC 34.8 % Normal 30.5-36.0 [facility] Comment on above: Performed By: #### L AB294 ####Dispatch Lead: RIKY PICKARD ([phone])[facility] ([facility])[address] [place] [address] MCV (RBC) [Entitic vol] 95.1 fL Normal 77.0-99.0 S [facility] Comment on above: Performed By: #### L AB294 ####Dispatch Lead: RIKY PICKARD ([phone])[facility])[address] [place] [address] Platelet mean volume (Bld) [Entitic vol] 10.5 fL Normal 9.0-12.7 [facility] Comment on above: Performed By: #### L AB294 ####Dispatch Lead: RIKY PICKARD ([id number])[facility])[address] [place] [address] Platelets (Bld) [#/Vol] 93 10*3/uL Low 140-440 S [facility] Comment on above: Performed By: #### L AB294 ####Dispatch Lead: RIKY PICKARD ([phone])[facility])[address] [place] [address] RBC (Bld) [#/Vol] 2.66 10*6/uL Low 3.80-5.20 [facility] Comment on above: Performed By: #### L AB294 ####Dispatch Lead: RIKY PICKARD ([id number])[facility])[address] [place] [address] WBC (Bld) [#/Vol] 8.7 10*3/uL Normal 3.6-10.7 [facility] Comment on above: Performed By: #### L AB294 ####Dispatch Lead: RIKY PICKARD ([id number])[facility])[address] [place] [address] Erythrocyte distribution width (RBC) [Ratio] 14.3 % Normal 11.5-15.0 [facility] Comment on above: Performed By: #### L AB294 ####Dispatch Lead: RIKY PICKARD ([id number])[facility])[address] [place] [address] Hematocrit (Bld) [Volume fraction] 26.2 % Low 35.0-47.0 [facility] Comment on above: Performed By: #### L AB294 ####Dispatch Lead: RIKY PICKARD ([id number])[address] Hemoglobin (Bld) [Mass/Vol] 9.1 g/dL Low 11.7-16.0 [facility] Comment on above: Performed By: #### L AB294 ####Dispatch Lead: RIKY PICKARD ([id number])[facility])[address] [place] [address] IPF 4 Normal [facility] Comment on above: Performed By: #### L AB294 ####Dispatch Lead: RIKY PICKARD ([phone])[facility])[address] [place] [address] MCH (RBC) [Entitic mass] 32.9 pg Normal 26.0-34.0 [facility] Comment on above: Performed By: #### L AB294 ####Dispatch Lead: RIKY PICKARD ([id number])[facility])[address] [place] [address] MCHC 34.7 % Normal 30.5-36.0 [facility] Comment on above: Performed By: #### L AB294 ####Dispatch Lead: RIKY PICKARD ([id number])[facility])[address] [place] [address] MCV (RBC) [Entitic vol] 94.6 fL Normal 77.0-99.0 [facility] Comment on above: Performed By: #### L AB294 ####Dispatch Lead: RIKY PICKARD ([id number])[facility])[address] [place] [address] Platelet mean volume (Bld) [Entitic vol] 10.5 fL Normal 9.0-12.7 [facility] Comment on above: Performed By: #### L AB294 ####Dispatch Lead: RIKY PICKARD ([id number])[facility])[address] [place] [address] Platelets (Bld) [#/Vol] 87 10*3/uL Low 140-440 [facility] Comment on above: Performed By: #### L AB294 ####Dispatch Lead: RIKY PICKARD ([id number])[facility])[address] [place] [address] RBC (Bld) [#/Vol] 2.77 10*6/uL Low 3.80-5.20 [facility] Comment on above: Performed By: #### L AB294 ####Dispatch Lead: RIKY PICKARD ([id number])[facility])[address] [place] [address] WBC (Bld) [#/Vol] 7.3 10*3/uL Normal 3.6-10.7 [facility] Comment on above: Performed By: #### L AB294 ####Dispatch Lead: RIKY PICKARD ([id number])[address] Erythrocyte distribution width (RBC) [Ratio] 14.6 % Normal 11.5-15.0 [facility] Comment on above: Performed By: #### L AB294 ####Dispatch Lead: RIKY PICKARD ([id number])[address] Hematocrit (Bld) [Volume fraction] 25.3 % Low 35.0-47.0 [facility] Comment on above: Performed By: #### L AB294 ####Dispatch Lead: RIKY PICKARD ([id number])[address] Hemoglobin (Bld) [Mass/Vol] 8.9 g/dL Low 11.7-16.0 [facility] Comment on above: Performed By: #### L AB294 ####Dispatch Lead: RIKY PICKARD ([id number])[address] IPF 3 Normal [facility] Comment on above: Performed By: #### L AB294 ####Dispatch Lead: RIKY PICKARD ([id number])[address] MCH (RBC) [Entitic mass] 33.2 pg Normal 26.0-34.0 [facility] Comment on above: Performed By: #### L AB294 ####Dispatch Lead: RIKY PICKARD ([id number])[address] MCHC 35.2 % Normal 30.5-36.0 [facility] Comment on above: Performed By: #### L AB294 ####Dispatch Lead: RIKY PICKARD ([id number])[address] MCV (RBC) [Entitic vol] 94.4 fL Normal 77.0-99.0 [facility] Comment on above: Performed By: #### L AB294 ####Dispatch Lead: RIKY PICKARD ([id number])[facility])[address] [place] [address] Platelet mean volume (Bld) [Entitic vol] 11.0 fL Normal 9.0-12.7 [facility] Comment on above: Performed By: #### L AB294 ####Dispatch Lead: RIKY PICKARD ([id number])[facility] ([facility])[address] [place] [address] Platelets (Bld) [#/Vol] 85 10*3/uL Low 140-440 [facility] Comment on above: Performed By: #### L [id number] ####Dispatch Lead: RIKY PICKARD ([id number])[facility] ([facility])[address] [place] [address] RBC (Bld) [#/Vol] 2.68 10*6/uL Low 3.80-5.20 [facility] Comment on above: Performed By: #### L [id number] ####Dispatch Lead: RIKY PICKARD ([id number])[facility] ([facility])[address] [place] [address] WBC (Bld) [#/Vol] 7.1 10*3/uL Normal 3.6-10.7 [facility] Comment on above: Performed By: #### L [id number] ####Dispatch Lead: RIKY PICKARD ([id number])[facility])[address] [place] [address] CBC panel Auto (Bld)on 04-23 Erythrocyte distribution width (RBC) [Ratio] 14.4 % 11.5 - 15.0 % [facility] Hematocrit (Bld) [Volume fraction] 24 % Low 35.0 - 47.0 % [facility] Hemoglobin (Bld) [Mass/Vol] 8.5 g/dL Low 11.7 - 16.0 g/dL [facility] Interpretation and review of laboratory results Abnormal [facility] IPF 4 [facility] MCH (RBC) [Entitic mass] 33.5 pg 26.0 - 34.0 pg [facility] MCHC (RBC) [Mass/Vol] 35.4 % 30.5 - 36.0 % [facility] MCV (RBC) [Entitic vol] 94.5 fL 77.0 - 99.0 fL [facility] Platelet mean volume (Bld) [Entitic vol] 10.7 fL 9.0 - 12.7 fL [facility] Platelets (Bld) [#/Vol] 98 10*3/uL Low 140 - 440 10*3/uL [facility] RBC (Bld) [#/Vol] 2.54 10*6/uL Low 3.80 - 5.2 0 10*6/uL [facility] WBC (Bld) [#/Vol] 7.5 10*3/uL 3.6 - 10.7 10*3/uL [facility] Erythrocyte distribution width (RBC) [Ratio] 14.3 % 11.5 - 15.0 % [facility] Hematocrit (Bld) [Volume fraction] 25.5 % Low 35.0 - 47.0 % [facility] Hemoglobin (Bld) [Mass/Vol] 8.8 g/dL Low 11.7 - 16.0 g/dL [facility] Interpretation and review of laboratory results Abnormal [facility] IPF 4 [facility] MCH (RBC) [Entitic mass] 33 pg 26.0 - 34.0 pg [facility] MCHC (RBC) [Mass/Vol] 34.5 % 30.5 - 36.0 % [facility] MCV (RBC) [Entitic vol] 95.5 fL 77.0 - 99.0 fL [facility] Platelet mean volume (Bld) [Entitic vol] 10.7 fL 9.0 - 12.7 fL [facility] Platelets (Bld) [#/Vol] 84 10*3/uL Low 140 - 440 10*3/uL [facility] RBC (Bld) [#/Vol] 2.67 10*6/uL Low 3.80 - 5.2 0 10*6/uL [facility] WBC (Bld) [#/Vol] 6.6 10*3/uL 3.6 - 10.7 10*3/uL [facility] Erythrocyte distribution width (RBC) [Ratio] 14.3 % 11.5 - 15.0 % [facility] Hematocrit (Bld) [Volume fraction] 26.2 % Low 35.0 - 47.0 % [facility] Hemoglobin (Bld) [Mass/Vol] 9.1 g/dL Low 11.7 - 16.0 g/dL [facility] Interpretation and review of laboratory results Abnormal [facility] IPF 4 [facility] MCH (RBC) [Entitic mass] 32.9 pg 26.0 - 34.0 pg [facility] MCHC (RBC) [Mass/Vol] 34.7 % 30.5 - 36.0 % [facility] MCV (RBC) [Entitic vol] 94.6 fL 77.0 - 99.0 fL [facility] Platelet mean volume (Bld) [Entitic vol] 10.5 fL 9.0 - 12.7 fL [facility] Platelets (Bld) [#/Vol] 87 10*3/uL Low 140 - 440 10*3/uL [facility] RBC (Bld) [#/Vol] 2.77 10*6/uL Low 3.80 - 5.2 0 10*6/uL [facility] WBC (Bld) [#/Vol] 7.3 10*3/uL 3.6 - 10.7 10*3/uL [facility] CBC panel Auto (Bld)Ordered By: Regina Valencia on 04-23-2025 Erythrocyte distribution width (RBC) [Ratio] 14.5 % 11.5 - 15.0 % [facility] Hematocrit (Bld) [Volume fraction] 25.3 % Low 35.0 - 47.0 % [facility] Hemoglobin (Bld) [Mass/Vol] 8.8 g/dL Low 11.7 - 16.0 g/dL [facility] Interpretation and review of laboratory results Abnormal [facility] IPF 4 [facility] MCH (RBC) [Entitic mass] 33.1 pg 26.0 - 34.0 pg [facility] MCHC (RBC) [Mass/Vol] 34.8 % 30.5 - 36.0 % [facility] MCV (RBC) [Entitic vol] 95.1 fL 77.0 - 99.0 fL [facility] Platelet mean volume (Bld) [Entitic vol] 10.5 fL 9.0 - 12.7 fL [facility] Platelets (Bld) [#/Vol] 93 10*3/uL Low 140 - 440 10*3/uL [facility] RBC (Bld) [#/Vol] 2.66 10*6/uL Low 3.80 - 5.2 0 10*6/uL [facility] WBC (Bld) [#/Vol] 8.7 10*3/uL 3.6 - 10.7 10*3/uL [facility] CBC panel Auto (Bld)Ordered By: Kortney Ferreira on 04-23-2025 Erythrocyte distribution width (RBC) [Ratio] 14.6 % 11.5 - 15.0 % [facility] Hematocrit (Bld) [Volume fraction] 25.3 % Low 35.0 - 47.0 % [facility] Hemoglobin (Bld) [Mass/Vol] 8.9 g/dL Low 11.7 - 16.0 g/dL [facility] Interpretation and review of laboratory results Abnormal [facility] IPF 3 [facility] MCH (RBC) [Entitic mass] 33.2 pg 26.0 - 34.0 pg [facility] MCHC (RBC) [Mass/Vol] 35.2 % 30.5 - 36.0 % [facility] MCV (RBC) [Entitic vol] 94.4 fL 77.0 - 99.0 fL [facility] Platelet mean volume (Bld) [Entitic vol] 11 fL 9.0 - 12.7 fL [facility] Platelets (Bld) [#/Vol] 85 10*3/uL Low 140 - 440 10*3/uL [facility] RBC (Bld) [#/Vol] 2.68 10*6/uL Low 3.80 - 5.2 0 10*6/uL [facility] WBC (Bld) [#/Vol] 7.1 10*3/uL 3.6 - 10.7 10*3/uL [facility] Consulton 04-23-2025 Consult Normal [facility] ECG 12-LEADon 04-23-2025 ECG 12-LEAD IMPRESSION: Sinus rhythm Left anterior fascicular block Electronically Signed On 04-23-2025 19:25:03 EDT by Brandon Davidson Normal [facility] ECG 12-LEAD IMPRESSION: Atrial fibrillation LAD, consider left anterior fascicular block Electronically Signed On 04-23-2025 17:58:46 EDT by BrandonVenaxis Normal [facility] MAGNESIUMon 04-23-2025 Magnesium [Mass/Vol] 1.9 mg/dL Normal 1.6-2.6 [facility] Comment on above: Result Comment: ORDE R COMMENTS:Higher values can be expected in females during menses. Performed By: #### L [id number], [id number], [id number] ####Dispatch Lead: RIKY PICKARD ([id number])[facility] ([facility])[address] [place] [address] No Panel InformationOrdered By: Brandon Davidson on 04-23-2025 P Lott 55 degrees [facility] Work Phone: WA Interval 169 ms [facility] Work Phone: QRS Lott -64 degrees [facility] Work Phone: QRSD Interval 82 ms [facility] Work Phone: QT Interval 376 ms [facility] Work Phone: QTC Interval 455 ms [facility] Work Phone: T Wave Lott 73 degrees [facility] Work Phone: [facility] Work Phone: No Panel Informationon 04-23 Sinus rhythm Left anterior fascicular block Electronically Signed On 04-23-2025 19:25:03 EDT by [employer] [facility] Brandon Davidson MD - 04/23/2025 IMPRESSION: Sinus rhythm Left anterior fascicular block Electronically Signed On 04-23-2025 19:25:03 EDT by [email or web address] P Lott 0 degrees [facility] WA Interval 0 ms [facility] QRS Lott -69 degrees [facility] QRSD Interval 94 ms [facility] QT Interval 371 ms [facility] QTC Interval 489 ms [facility] T Wave Lott 54 degrees [facility] Atrial fibrillation LAD, consider left anterior fascicular block Electronically Signed On 04-23-2025 17:58:46 EDT by Brandon Galeano MD - 04/23/2025 IMPRESSION: Atrial fibrillation LAD, consider left anterior fascicular block Electronically Signed On 04-23-2025 17:58:46 EDT by Brandon Davidson [facility] PHOSPHORUSon 04-23-2025 Phosphate [Mass/Vol] 1.8 mg/dL Low 2.3-4.7 [facility] Comment on above: Performed By: #### L AB15, [id number], [id number] ####Dispatch Lead: RIKY PICKARD ([id number])[facility])[address] [place] [address] Progress Noteon 04-23-2025 Progress Note Prompted to assess 4 T score. Low concern for HIT at this time, score of 1. Has not received heparin and was thrombocytopenic on admission. Normal [facility] Progress Note Normal [facility] Progress Note Normal [facility] Progress Note Normal [facility] Vital signsOrdered By: Andraes Davidson on 04-23-2025 Heart rate 88 /min bpm [facility] Work Phone: Vital signson 04-23-2025 Heart rate 104 /min bpm [facility] [id number] 04-22-2025 [id number] Normal [facility] BASIC METABOLIC PANELon Anion gap [Moles/Vol] 11 mmol/L Normal 3-13 [facility] Comment on above: Performed By: #### L AB15 ####Dispatch Lead: RIKY PICKARD ([id number])[facility] ([facility])[address] [place] [address] Calcium [Mass/Vol] 8.8 mg/dL Normal 8.8-10.0 [facility] Comment on above: Performed By: #### L AB15 ####Dispatch Lead: RIKY PICKARD ([id number])[facility] ([facility])[address] [place] [address] Chloride [Moles/Vol] 104 mmol/L Normal 98-107 [facility] Comment on above: Performed By: #### L AB15 ####Dispatch Lead: RIKY PICKARD ([id number])[facility])[address] [place] [address] CO2 [Moles/Vol] 20 mmol/L Low 23-31 [facility] Comment on above: Performed By: #### L AB15 ####Dispatch Lead: RIKY PICKARD ([id number])[facility])[address] [place] [address] Creatinine [Mass/Vol] 1.02 mg/dL Normal 0.57-1.11 [facility] Comment on above: Performed By: #### L AB15 ####Dispatch Lead: RIKY PICKARD ([id number])[facility])[address] [place] [address] GLOMERULAR FILTRATION RATE ML/MIN/1.73 SQ M.PREDICTED 54.7 mL/min/1.73m*2 Low >60.0 [facility] Comment on above: Result Comment: Calc ulation based on the Chronic Kidney Disease Epidemiology Collaboration (CKD-EPI) equation refit without adjustment for race Performed By: #### L AB15 ####Dispatch Lead: RIKY PICKARD ([id number])[facility])[address] [place] [address] Glucose [Mass/Vol] 163 mg/dL High 82-115 [facility] Comment on above: Performed By: #### L AB15 ####Dispatch Lead: RIKY PICKARD ([id number])[facility])[address] [place] [address] Potassium [Moles/Vol] 4.2 mmol/L Normal 3.5-5.1 [facility] Comment on above: Result Comment: [facility] potassium values may be up to 0.5 mmol/L lower than serum values. Performed By: #### L AB15 ####Dispatch Lead: RIKY PICKARD ([id number])[facility])[address] [place] [address] [place] Sodium [Moles/Vol] 135 mmol/L Low 136-145 [facility] Comment on above: Performed By: #### L AB15 ####Dispatch Lead: RIKY PICKARD ([id number])[facility] [place] [address] Urea nitrogen [Mass/Vol] 22 mg/dL Normal 9-23 [facility] Comment on above: Performed By: #### L AB15 ####Dispatch Lead: RIKY PICKARD ([id number])[facility] [place] [address] Basic metabolic 1998 panelon 04-22-2025 Anion gap [Moles/Vol] 11 mmol/L 3 - 13 mmol/L [facility] Calcium [Mass/Vol] 8.8 mg/dL 8.8 - 10. 0 mg/dL [facility] Chloride [Moles/Vol] 104 mmol/L 98 - 10 7 mmol/L [facility] CO2 [Moles/Vol] 20 mmol/L Low 23 - 31 mmol/L [facility] Creatinine [Mass/Vol] 1.02 mg/dL 0.57 - 1.11 mg/dL [facility] GFR/1.73 sq M.predicted (S/P/Bld) [Vol rate/Area] 54.7 mL/min Low - PINF [facility] Comment on above: Calculation based on the Chronic Kidney Disease Epidemiology Collaboration (CKD-EPI) equation refit without adjustment for race Glucose [Mass/Vol] 163 mg/dL High 82 - 115 mg/dL [facility] Interpretation and review of laboratory results Abnormal [facility] Potassium [Moles/Vol] 4.2 mmol/L 3.5 - 5.1 mmol/L [facility] Comment on above: Plasma potassium dede ues may be up to 0.5 mmol/L lower than serum values. Sodium [Moles/Vol] 135 mmol/L Low 136 - 145 mmol/L [facility] Urea nitrogen [Mass/Vol] 22 mg/dL 9 - 23 mg/dL [facility] CBC (HEMOGRAM)on 04-22-2025 Erythrocyte distribution width (RBC) [Ratio] 14.5 % Normal 11.5-15.0 [facility] Comment on above: Performed By: #### L [id number] ####Dispatch Lead: RIKY PICKARD ([id number])[facility])[address] [place] [address] Hematocrit (Bld) [Volume fraction] 22.3 % Low 35.0-47.0 [facility] Comment on above: Performed By: #### L [id number] ####Dispatch Lead: RIKY PICKARD ([id number])[facility])[address] [place] [address] Hemoglobin (Bld) [Mass/Vol] 7.8 g/dL Low 11.7-16.0 [facility] Comment on above: Performed By: #### L [id number] ####Dispatch Lead: RIKY PICKARD ([id number])[facility])[address] [place] [address] IPF 4 Normal [facility] Comment on above: Performed By: #### L [id number] ####Dispatch Lead: RIKY PICKARD ([id number])[facility] ([facility])[address] [place] [address] MCH (RBC) [Entitic mass] 33.2 pg Normal 26.0-34.0 [facility] Comment on above: Performed By: #### L [id number] ####Dispatch Lead: RIKY PICKARD ([id number])[facility])[address] [place] [address] MCHC 35.0 % Normal 30.5-36.0 [facility] Comment on above: Performed By: #### L [id number] ####Dispatch Lead: RIKY PICKARD ([id number])[facility])[address] [place] [address] MCV (RBC) [Entitic vol] 94.9 fL Normal 77.0-99.0 S [facility] Comment on above: Performed By: #### L [id number] ####Dispatch Lead: RIKY PICKARD ([id number])[facility])[address] [place] [address] Platelet mean volume (Bld) [Entitic vol] 10.9 fL Normal 9.0-12.7 [facility] Comment on above: Performed By: #### L [id number] ####Dispatch Lead: RIKY PICKARD ([id number])[facility] ([facility])[address] [place] [address] Platelets (Bld) [#/Vol] 101 10*3/uL Low 140-440 [facility] Comment on above: Performed By: #### L [id number] ####Dispatch Lead: RIKY PICKARD ([id number])[facility] ([facility])[address] [place] [address] RBC (Bld) [#/Vol] 2.35 10*6/uL Low 3.80-5.20 [facility] Comment on above: Performed By: #### L [id number] ####Dispatch Lead: RIKY PICKARD ([id number])[facility])[address] [place] [address] WBC (Bld) [#/Vol] 8.0 10*3/uL Normal 3.6-10.7 [facility] Comment on above: Performed By: #### L [id number] ####Dispatch Lead: RIKY PICKARD ([id number])[facility])[address] [place] [address] Erythrocyte distribution width (RBC) [Ratio] 13.3 % Normal 11.5-15.0 [facility] Comment on above: Performed By: #### L [id number] ####Dispatch Lead: RIKY PICKARD ([id number])[facility])[address] [place] [address] Hematocrit (Bld) [Volume fraction] 19.5 % Low 35.0-47.0 [facility] Comment on above: Performed By: #### L [id number] ####Dispatch Lead: RIKY PICKARD ([id number])[facility])[address] [place] [address] Hemoglobin (Bld) [Mass/Vol] 7.0 g/dL Low 11.7-16.0 [facility] Comment on above: Performed By: #### L [id number] ####Dispatch Lead: RIKY PICKARD ([id number])[facility])[address] [place] [address] MCH (RBC) [Entitic mass] 34.7 pg High 26.0-34.0 [facility] Comment on above: Performed By: #### L [id number] ####Dispatch Lead: RIKY PICKARD ([id number])[facility])[address] [place] [address] MCHC 35.9 % Normal 30.5-36.0 [facility] Comment on above: Performed By: #### L [id number] ####Dispatch Lead: RIKY PICKARD ([id number])[facility])[address] [place] [address] MCV (RBC) [Entitic vol] 96.5 fL Normal 77.0-99.0 S [facility] Comment on above: Performed By: #### L [id number] ####Dispatch Lead: RIKY PICKARD ([id number])[facility])[address] [place] [address] Platelet mean volume (Bld) [Entitic vol] 11.2 fL Normal 9.0-12.7 [facility] Comment on above: Performed By: #### L [id number] ####Dispatch Lead: RIKY PICKARD ([id number])[facility])[address] [place] [address] Platelets (Bld) [#/Vol] 96 10*3/uL Low 140-440 S [facility] Comment on above: Performed By: #### L [id number] ####Dispatch Lead: RIKY PICKARD ([id number])[facility])[address] [place] [address] RBC (Bld) [#/Vol] 2.02 10*6/uL Low 3.80-5.20 [facility] Comment on above: Performed By: #### L [id number] ####Dispatch Lead: RIKY PICKARD ([id number])[facility])[address] [place] [address] WBC (Bld) [#/Vol] 8.0 10*3/uL Normal 3.6-10.7 [facility] Comment on above: Performed By: #### L [id number] ####Dispatch Lead: RIKY PICKARD ([id number])[facility])[address] [place] [address] Erythrocyte distribution width (RBC) [Ratio] 13.5 % Normal 11.5-15.0 [facility] Comment on above: Performed By: #### L [id number] ####Dispatch Lead: RIKY PICKARD ([id number])[address] Hematocrit (Bld) [Volume fraction] 22.9 % Low 35.0-47.0 [facility] Comment on above: Performed By: #### L [id number] ####Dispatch Lead: RIKY PICKARD ([id number])[address] Hemoglobin (Bld) [Mass/Vol] 7.7 g/dL Low 11.7-16.0 [facility] Comment on above: Performed By: #### L [id number] ####Dispatch Lead: RIKY PICKARD ([id number])[facility])[address] [place] [address] IPF 5 Normal [facility] Comment on above: Performed By: #### L [id number] ####Dispatch Lead: RIKY PICKARD ([id number])[facility])[address] [place] [address] MCH (RBC) [Entitic mass] 33.5 pg Normal 26.0-34.0 [facility] Comment on above: Performed By: #### L [id number] ####Dispatch Lead: RIKY PICKARD ([id number])[address] MCHC 33.6 % Normal 30.5-36.0 [facility] Comment on above: Performed By: #### L [id number] ####Dispatch Lead: RIKY PICKARD ([id number])[facility] ([facility])[address] [place] [address] MCV (RBC) [Entitic vol] 99.6 fL High 77.0-99.0 [facility] Comment on above: Performed By: #### L [id number] ####Dispatch Lead: RIKY PICKARD ([id number])[facility] ([facility])[address] [place] [address] Platelet mean volume (Bld) [Entitic vol] 10.6 fL Normal 9.0-12.7 [facility] Comment on above: Performed By: #### L [id number] ####Dispatch Lead: RIKY PICKARD ([id number])[facility] ([facility])[address] [place] [address] Platelets (Bld) [#/Vol] 108 10*3/uL Low 140-440 [facility] Comment on above: Performed By: #### L [id number] ####Dispatch Lead: RIKY PICKARD ([id number])[facility] ([facility])[address] [place] [address] RBC (Bld) [#/Vol] 2.30 10*6/uL Low 3.80-5.20 [facility] Comment on above: Performed By: #### L [id number] ####Dispatch Lead: RIKY PICKARD ([id number])[facility] ([facility])[address] [place] [address] WBC (Bld) [#/Vol] 8.6 10*3/uL Normal 3.6-10.7 [facility] Comment on above: Performed By: #### L [id number] ####Dispatch Lead: RIKY PICKARD ([id number])[facility] ([facility])[address] [place] [address] Erythrocyte distribution width (RBC) [Ratio] 13.2 % Normal 11.5-15.0 [facility] Comment on above: Performed By: #### L [id number] ####Dispatch Lead: RIKY PICKARD ([id number])[address] Hematocrit (Bld) [Volume fraction] 27.7 % Low 35.0-47.0 [facility] Comment on above: Performed By: #### L [id number] ####Dispatch Lead: RIKY PICKARD ([id number])[facility])[address] [place] [address] Hemoglobin (Bld) [Mass/Vol] 9.2 g/dL Low 11.7-16.0 [facility] Comment on above: Performed By: #### L [id number] ####Dispatch Lead: RIKY PICKARD ([id number])[address] MCH (RBC) [Entitic mass] 33.1 pg Normal 26.0-34.0 [facility] Comment on above: Performed By: #### L [id number] ####Dispatch Lead: RIKY PICKARD ([id number])[facility])[address] [place] [address] MCHC 33.2 % Normal 30.5-36.0 [facility] Comment on above: Performed By: #### L [id number] ####Dispatch Lead: RIKY PICKARD ([id number])[facility])[address] [place] [address] MCV (RBC) [Entitic vol] 99.6 fL High 77.0-99.0 S [facility] Comment on above: Performed By: #### L [id number] ####Dispatch Lead: RIKY PICKARD ([id number])[facility])[address] [place] [address] Platelet mean volume (Bld) [Entitic vol] 10.4 fL Normal 9.0-12.7 [facility] Comment on above: Performed By: #### L [id number] ####Dispatch Lead: RIKY PICKARD ([id number])[facility] ([facility])[address] [place] [address] Platelets (Bld) [#/Vol] 166 10*3/uL Normal 140-440 [facility] Comment on above: Performed By: #### L [id number] ####Dispatch Lead: RIKY PICKARD ([id number])[facility] ([facility])[address] [place] [address] RBC (Bld) [#/Vol] 2.78 10*6/uL Low 3.80-5.20 [facility] Comment on above: Performed By: #### L [id number] ####Dispatch Lead: RIKY PICKARD ([id number])[facility])[address] [place] [address] WBC (Bld) [#/Vol] 15.3 10*3/uL High 3.6-10.7 [facility] Comment on above: Performed By: #### L [id number] ####Dispatch Lead: RIKY PICKARD ([id number])[facility] ([facility])[address] [place] [address] CBC panel Auto (Bld)on 04-22 Erythrocyte distribution width (RBC) [Ratio] 14.5 % 11.5 - 15.0 % [facility] Hematocrit (Bld) [Volume fraction] 22.3 % Low 35.0 - 47.0 % [facility] Hemoglobin (Bld) [Mass/Vol] 7.8 g/dL Low 11.7 - 16.0 g/dL [facility] Interpretation and review of laboratory results Abnormal [facility] IPF 4 [facility] MCH (RBC) [Entitic mass] 33.2 pg 26.0 - 34.0 pg [facility] MCHC (RBC) [Mass/Vol] 35 % 30.5 - 36.0 % [facility] MCV (RBC) [Entitic vol] 94.9 fL 77.0 - 99.0 fL [facility] Platelet mean volume (Bld) [Entitic vol] 10.9 fL 9.0 - 12.7 fL [facility] Platelets (Bld) [#/Vol] 101 10*3/uL Low 140 - 440 10*3/uL [facility] RBC (Bld) [#/Vol] 2.35 10*6/uL Low 3.80 - 5.2 0 10*6/uL [facility] WBC (Bld) [#/Vol] 8 10*3/uL 3.6 - 10.7 10*3/uL [facility] Erythrocyte distribution width (RBC) [Ratio] 13.2 % 11.5 - 15.0 % [facility] Hematocrit (Bld) [Volume fraction] 27.7 % Low 35.0 - 47.0 % [facility] Hemoglobin (Bld) [Mass/Vol] 9.2 g/dL Low 11.7 - 16.0 g/dL [facility] Interpretation and review of laboratory results Abnormal [facility] MCH (RBC) [Entitic mass] 33.1 pg 26.0 - 34.0 pg [facility] MCHC (RBC) [Mass/Vol] 33.2 % 30.5 - 36.0 % [facility] MCV (RBC) [Entitic vol] 99.6 fL High 77.0 - 99.0 fL [facility] Platelet mean volume (Bld) [Entitic vol] 10.4 fL 9.0 - 12.7 fL [facility] Platelets (Bld) [#/Vol] 166 10*3/uL 140 - 440 10*3/uL [facility] RBC (Bld) [#/Vol] 2.78 10*6/uL Low 3.80 - 5.2 0 10*6/uL [facility] WBC (Bld) [#/Vol] 15.3 10*3/uL High 3.6 - 10.7 10*3/uL [facility] CBC panel Auto (Bld)Ordered By: Erick Garces on 04-22-2025 Erythrocyte distribution width (RBC) [Ratio] 13.3 % 11.5 - 15.0 % [facility] Hematocrit (Bld) [Volume fraction] 19.5 % Low 35.0 - 47.0 % [facility] Hemoglobin (Bld) [Mass/Vol] 7 g/dL Low 11.7 - 16.0 g/dL [facility] Interpretation and review of laboratory results Abnormal [facility] MCH (RBC) [Entitic mass] 34.7 pg High 26.0 - 34.0 pg [facility] MCHC (RBC) [Mass/Vol] 35.9 % 30.5 - 36.0 % [facility] MCV (RBC) [Entitic vol] 96.5 fL 77.0 - 99.0 fL [facility] Platelet mean volume (Bld) [Entitic vol] 11.2 fL 9.0 - 12.7 fL [facility] Platelets (Bld) [#/Vol] 96 10*3/uL Low 140 - 440 10*3/uL [facility] RBC (Bld) [#/Vol] 2.02 10*6/uL Low 3.80 - 5.2 0 10*6/uL [facility] WBC (Bld) [#/Vol] 8 10*3/uL 3.6 - 10.7 10*3/uL [facility] CBC panel Auto (Bld)Ordered By: Harlan Tobar on 04-22-2025 Erythrocyte distribution width (RBC) [Ratio] 13.5 % 11.5 - 15.0 % [facility] Hematocrit (Bld) [Volume fraction] 22.9 % Low 35.0 - 47.0 % [facility] Hemoglobin (Bld) [Mass/Vol] 7.7 g/dL Low 11.7 - 16.0 g/dL [facility] Interpretation and review of laboratory results Abnormal [facility] IPF 5 [facility] MCH (RBC) [Entitic mass] 33.5 pg 26.0 - 34.0 pg [facility] MCHC (RBC) [Mass/Vol] 33.6 % 30.5 - 36.0 % [facility] MCV (RBC) [Entitic vol] 99.6 fL High 77.0 - 99.0 fL [facility] Platelet mean volume (Bld) [Entitic vol] 10.6 fL 9.0 - 12.7 fL [facility] Platelets (Bld) [#/Vol] 108 10*3/uL Low 140 - 440 10*3/uL [facility] RBC (Bld) [#/Vol] 2.3 10*6/uL Low 3.80 - 5.2 0 10*6/uL [facility] WBC (Bld) [#/Vol] 8.6 10*3/uL 3.6 - 10.7 10*3/uL [facility] HEMOGLOBIN AND HEMATOCRIT, B LOODon 04-22-2025 Hematocrit (Bld) [Volume fraction] 22.8 % Low 35.0-47.0 [facility] Comment on above: Order Comment: Recom mend 1 hour post transfusion Performed By: #### L [id number] ####Dispatch Lead: RIKY PICKARD ([id number])[facility] [place] [address] Hemoglobin (Bld) [Mass/Vol] 7.9 g/dL Low 11.7-16.0 [facility] Comment on above: Order Comment: Recom mend 1 hour post transfusion Performed By: #### L [id number] ####Dispatch Lead: RIKY PICKARD ([id number])[facility] [place] [address] HIGH SENSITIVITY TROPONIN, S ERIAL BASELINEon 04-22-2025 TROPONIN HS SERIAL BASELINE 90 ng/L High <=14 [facility] Comment on above: Result Comment: In i ndividuals presenting with symptoms > 2h, a baseline troponin <= 5 ng/L suggests acutecardiac injury is unlikely and further serial testing is generally not indicated. Performed By: #### L [id number] ####Dispatch Lead: RIKY PICKARD ([id number])[facility] [place] [address] HIGH SENSITIVITY TROPONIN, S ERIAL, SECOND TESTon 04-22-2025 2H TROPONIN HS (SERIAL 2ND TROPONIN) 76 ng/L High <=14 [facility] Comment on above: Result Comment: Risi ng or falling troponin delta between 2 ??? 15 ng/L as compared to baseline value requires a 3rd serial troponin Performed By: #### L [id number] ####Dispatch Lead: RIKY PICKARD ([id number])[facility] [place] [address] HIGH SENSITIVITY TROPONIN, S ERIAL, THIRD TESTon 04-22-2025 4H TROPONIN HS (SERIAL 3RD TROPONIN) 66 ng/L High <=14 [facility] Comment on above: Result Comment: Risi ng or falling troponin delta between 2 ??? 15 ng/L as compared to 2h troponin valuerequires further evaluation. Performed By: #### L [id number] ####Dispatch Lead: RIKY PICKARD ([id number])[facility])[address] [place] [address] Hemoglobin (Bld) [Mass/Vol]O rdered By: Keya Fung on 04-22-2025 Hematocrit (Bld) [Volume fraction] 22.8 % Low 35.0 - 47.0 % [facility] Interpretation and review of laboratory results Abnormal [facility] LACTIC ACID WITH REFLEXon Lactate [Moles/Vol] 1.5 mmol/L Normal 0.5-2.2 [facility] Comment on above: Performed By: #### L [id number] ####Dispatch Lead: RIKY PICKARD ([id number])[facility])[address] [place] [address] Lactate [Moles/Vol] 2.7 mmol/L High 0.5-2.2 [facility] Comment on above: Performed By: #### L [id number] ####Dispatch Lead: RIKY PICKARD ([id number])[facility])[address] [place] [address] Lactate [Moles/Vol] 3.8 mmol/L High 0.5-2.2 [facility] Comment on above: Result Comment: TCPo tential interference from hemolysis Performed By: #### L [id number] ####Dispatch Lead: RIKY PICKARD ([id number])[facility])[address] [place] [address] Laboratory - Chemistry and C hemistry - challengeon 04-22-2025 Lactate [Moles/Vol] 1.5 mmol/L 0.5 - 2. 2 mmol/L [facility] Lactate [Moles/Vol] 2.7 mmol/L High 0.5 - 2. 2 mmol/L [facility] Lactate [Moles/Vol] 3.8 mmol/L High 0.5 - 2. 2 mmol/L [facility] Comment on above: TC Potential interference from hemolysis Laboratory - Hematology and Cell countsOrdered By: Keya Fung on 04-22-2025 Hemoglobin (Bld) [Mass/Vol] 7.9 g/dL Low 11.7 - 16.0 g/dL [facility] No Panel Informationon 04-22 Blood Expiration Date [id number] [facility] Blood Expiration Date [id number] [facility] Crossmatch interpretation COMP [facility] Dispense Status Transfused [facility] Blood Type 5100 [facility] PRODUCT CODE [id number] [facility] ABO O [facility] Number [id number] [facility] [id number] [facility] RH Positive [facility] Unit Volume 300 mL [facility] Interpretation and review of laboratory results Normal [facility] 4h Troponin HS (Serial 3rd Troponin) 66 ng/L High NINF - 14 ng/L [facility] Comment on above: Rising or falling tr oponin delta between 2 15 ng/L as compared to 2h troponin value requires further evaluation. Interpretation and review of laboratory results Abnormal [facility] Interpretation and review of laboratory results Abnormal [facility] 2h Troponin HS (Serial 2nd Troponin) 76 ng/L High NINF - 14 ng/L [facility] Comment on above: Rising or falling tr oponin delta between 2 15 ng/L as compared to baseline value requires a 3rd serial troponin Interpretation and review of laboratory results Abnormal [facility] Interpretation and review of laboratory results Abnormal [facility] Troponin HS Serial Baseline 90 ng/L High NINF - 14 ng/L [facility] Comment on above: In individuals prese nting with symptoms > 2h, a baseline troponin <= 5 ng/L suggests acute cardiac injury is unlikely and further serial testing is generally not indicated. [facility] Interpretation and review of laboratory results Abnormal [facility] Progress Noteon 04-22-2025 Progress Note Normal [facility] Progress [facility] Normal [facility] Progress Note Normal [facility] Progress Note Normal [facility] Progress Note Normal [facility] US Heart TransthoracicOrdere d By: Odalys Lennon on 04-22-2025 Ao Root Index 2 cm/m2 [facility] Work Phone: Aortic Arch 3.6 cm [facility] Work Phone: Aortic Root 3.4 cm [facility] Work Phone: Aortic Sinus Valsalva 2.8 cm [facility] Work Phone: Aortic Sinus Valsalva Index 1.65 cm/m2 [facility] Work Phone: Aortic valve Orifice area by US 3.1 cm2 [facility] Work Phone: Ascending Aorta 3.[address] [facility] Work Phone: Ascending Aorta Index 2.29 cm/m2 [facility] Work Phone: E/E' Lateral 10.38 [facility] Work Phone: E/E' Ratio (Averaged) 11.12 [facility] Work Phone: E/E' Septal 11.86 [facility] Work Phone: Est. RA Pressure [address] [facility] Work Phone: Interpretation and review of laboratory results Abnormal [facility] Work Phone: IVC Diameter 1.9 cm [facility] Work Phone: LA Diameter 2.7 cm [facility] Work Phone: LA Size Index 1.59 cm/m2 [facility] Work Phone: LA Volume 2C 39 mL 22 - 52 mL [facility] Work Phone: LA Volume 4C 40 mL 22 - 52 mL [facility] Work Phone: LA Volume A/L 45 mL [facility] Work Phone: LA Volume BP 40 mL 22 - 52 mL [facility] Work Phone: LA Volume Index 2C 23 mL/m2 16 - 34 mL/m2 [facility] Work Phone: LA Volume Index 4C 24 mL/m2 16 - 34 mL/m2 [facility] Work Phone: LA Volume Index A/L 26 mL/m2 16 - 34 mL/m2 [facility] Work Phone: LA Volume Index BP 24 ml/m2 16 - 34 ml/m2 [facility] Work Phone: LA/AO Root Ratio 0.79 [facility] Work Phone: Left ventricular Ejection fraction by US.2D+Calculated by biplane method of disks 87 % 55 - 100 % [facility] Work Phone: LV E' Lateral Velocity 8 cm/s [facility] Work Phone: LV E' Septal Velocity 7 cm/s [facility] Work Phone: LV EDV A2C 70 mL [facility] Work Phone: LV EDV A4C 55 mL [facility] Work Phone: LV EDV BP 64 mL 56 - 104 mL [facility] Work Phone: LV EDV Index A2C 41 mL/m2 [facility] Work Phone: LV EDV Index A4C 32 mL/m2 [facility] Work Phone: LV EDV Index BP 38 mL/m2 [facility] Work Phone: LV Ejection Fraction A2C 85 % [facility] Work Phone: LV Ejection Fraction A4C 88 % [facility] Work Phone: LV ESV A2C 11 mL [facility] Work Phone: LV ESV A4C 6 mL [facility] Work Phone: LV ESV BP 8 mL Abnormal 19 - 49 mL [facility] Work Phone: LV ESV Index A2C 6 mL/m2 [facility] Work Phone: LV ESV Index A4C 4 mL/m2 [facility] Work Phone: LV ESV Index BP 5 mL/m2 [facility] Work Phone: LVOT Cardiac Output 6.7 liter/minute [facility] Work Phone: LVOT Diameter 2 cm [facility] Work Phone: LVOT Mean Gradient 4 mmHg [facility] Work Phone: LVOT Peak Gradient 6 mmHg [facility] Work Phone: LVOT Peak Velocity 1.3 m/s [facility] Work Phone: LVOT Stroke Volume Index 52.5 mL/m2 [facility] Work Phone: LVOT SV 89.2 ml [facility] Work Phone: LVOT VTI 28.4 cm [facility] Work Phone: MV A Velocity 0.81 m/s [facility] Work Phone: MV E Velocity 0.83 m/s [facility] Work Phone: MV E Wave Deceleration Time 209.2 ms [facility] Work Phone: MV E/A 1.02 [facility] Work Phone: RA Area 4C 37.6 mL [facility] Work Phone: RA Area 4C 37.4 mL [facility] Work Phone: RV Basal Dimension 4.1 cm [facility] Work Phone: RV Free Wall Peak S' 12 cm/s [facility] [place] Work Phone: RV Longitudinal Dimension 6.8 cm [facility] Work Phone: RV Mid Dimension 2.[address] [facility] Work Phone: RVSP 36 mmHg [facility] Work Phone: TAPSE 2.1 cm 1.7 cm [facility] Work Phone: TR Max Velocity 2.87 m/s [facility] Work Phone: TR Peak Gradient [address] [facility] Work Phone: [facility] Work Phone: US Heart Transthoracicon Left Ventricle: Left ventricle is smaller than normal. Basal septal thickening. Hyperdynamic left ventricular systolic function. EF by 2D Simpsons Biplane is 87%. Normal wall motion. Right Ventricle: Right ventricle size is normal. Normal systolic function. No significant valvular abnormalities. Left Ventricle Left ventricle is smaller than normal. Basal septal thickening. Hyperdynamic left ventricular systolic function. EF by 2D [employer]ons Biplane is 87%. Normal wall motion. Normal diastolic function. Right Ventricle Right ventricle size is normal. Normal systolic function. Left Atrium Left atrium size is normal. Right Atrium Right atrium size is normal. IVC/SVC IVC diameter is normal and decreases greater than 50% during inspiration; therefore the estimated right atrial pressure is normal (~3 mmHg). Mitral Valve Valve structure is normal. Trace regurgitation. No stenosis noted. Systolic anterior motion. Tricuspid Valve Valve structure is normal. Mild (1+) regurgitation. Normal RVSP. Aortic Valve Trileaflet. No cusp thickening. No cusp calcification. Trace regurgitation. No stenosis. Pulmonic Valve Valve structure is normal. Trace regurgitation. Pericardium No pericardial effusion. Septum No interatrial shunt visualized on color Doppler. Study Details Image quality: adequate. Heart rate: 76 bpm. Blood pressure: 111/70 mmHg. The underlying ECG rhythm was sinus rhythm. No contrast was given. Study performed by [employer] with direct supervision by this saddle and harness maker. Echo Additional Conclusions No significant valvular abnormalities. CV CPACS [id number] 04-21-2025 [id number] Normal [facility] ABO and Rh group Confirm Nom (Bld)on 04-21-2025 ABO group Nom (Bld) O [facility] D Ag Ql (RBC) Positive [facility] Anesthesia Noteon 04-21-2025 Anesthesia Note Normal [facility] Anesthesia Note Normal [facility] BASIC METABOLIC PANELon Anion gap [Moles/Vol] 11 mmol/L Normal 3-13 [facility] Comment on above: Performed By: #### L [id number], [id number] ####Dispatch Lead: RIKY PICKARD ([id number])[facility] [place] [address] Calcium [Mass/Vol] 8.8 mg/dL Normal 8.8-10.0 [facility] Comment on above: Performed By: #### L [id number], [id number] ####Dispatch Lead: RIKY PICKARD ([id number])[facility])[address] [place] [address] Chloride [Moles/Vol] 105 mmol/L Normal 98-107 [facility] Comment on above: Performed By: #### L [id number], LAB15 ####Dispatch Lead: RIKY PICKARD ([id number])[facility] [place] [address] CO2 [Moles/Vol] 19 mmol/L Low 23-31 [facility] Comment on above: Performed By: #### L [id number], [id number] ####Dispatch Lead: RIKY PICKARD ([id number])[facility])[address] [place] [address] Creatinine [Mass/Vol] 0.79 mg/dL Normal 0.57-1.11 [facility] Comment on above: Performed By: #### L [id number], LAB15 ####Dispatch Lead: RIKY PICKARD ([id number])[facility])[address] [place] [address] [place] GLOMERULAR FILTRATION RATE ML/MIN/1.73 SQ M.PREDICTED 74.3 mL/min/1.73m*2 Normal >60.0 [facility] Comment on above: Result Comment: Calc ulation based on the Chronic Kidney Disease Epidemiology Collaboration (CKD-EPI) equation refit without adjustment for race Performed By: #### L [id number], [id number] ####Dispatch Lead: RIKY PICKARD ([id number])[facility] [place] [address] [place] Glucose [Mass/Vol] 204 mg/dL High 82-115 [facility] Comment on above: Performed By: #### L [id number], [id number] ####Dispatch Lead: RIKY PICKARD ([id number])[facility])[address] [place] [address] Potassium [Moles/Vol] 4.2 mmol/L Normal 3.5-5.1 [facility] Comment on above: Result Comment: [facility] potassium values may be up to 0.5 mmol/L lower than serum values. Performed By: #### L [id number], [id number] ####Dispatch Lead: RIKY PICKARD ([id number])[facility])[address] [place] [address] Sodium [Moles/Vol] 135 mmol/L Low 136-145 [facility] Comment on above: Performed By: #### L [id number], LAB15 ####Dispatch Lead: RIKY PICKARD ([id number])[facility])[address] [place] [address] Urea nitrogen [Mass/Vol] 19 mg/dL Normal 9-23 [facility] Comment on above: Performed By: #### L [id number], LAB15 ####Dispatch Lead: RIKY PICKARD ([id number])[facility])[address] [place] [address] BLOOD TYPE AND SCREEN GELon 04-21-2025 ABO GROUPING O Normal [facility] Comment on above: Performed By: #### L [id number] ####Dispatch Lead: RIKY PICKARD ([id number])[facility] ([facility])[address] [place] [address] RH TYPE IN BLOOD Positive Normal [facility] Comment on above: Performed By: #### L [id number] ####Dispatch Lead: RIKY PICKARD ([id number])[facility] ([facility])[address] [place] [address] Basic metabolic 1998 panelon 04-21-2025 Anion gap [Moles/Vol] 11 mmol/L 3 - 13 mmol/L [facility] Calcium [Mass/Vol] 8.8 mg/dL 8.8 - 10. 0 mg/dL [facility] Chloride [Moles/Vol] 105 mmol/L 98 - 10 7 mmol/L [facility] CO2 [Moles/Vol] 19 mmol/L Low 23 - 31 mmol/L [facility] Creatinine [Mass/Vol] 0.79 mg/dL 0.57 - 1.11 mg/dL [facility] GFR/1.73 sq M.predicted (S/P/Bld) [Vol rate/Area] 74.3 mL/min - PINF [facility] Comment on above: Calculation based on the Chronic Kidney Disease Epidemiology Collaboration (CKD-EPI) equation refit without adjustment for race Glucose [Mass/Vol] 204 mg/dL High 82 - 115 mg/dL [facility] Interpretation and review of laboratory results Abnormal [facility] Potassium [Moles/Vol] 4.2 mmol/L 3.5 - 5.1 mmol/L [facility] Comment on above: Plasma potassium dede ues may be up to 0.5 mmol/L lower than serum values. Sodium [Moles/Vol] 135 mmol/L Low 136 - 145 mmol/L [facility] Urea nitrogen [Mass/Vol] 19 mg/dL 9 - 23 mg/dL [facility] Blood type and Crossmatch pa berta (Bld)on 04-21-2025 ABO group Nom (Bld) O [facility] Blood group antibody screen GEL Ql Negative [facility] D Ag Ql (RBC) Positive [facility] h [facility] CBC (HEMOGRAM)on 04-21-2025 Erythrocyte distribution width (RBC) [Ratio] 13.2 % Normal 11.5-15.0 [facility] Comment on above: Performed By: #### L [id number] ####Dispatch Lead: RIKY PICKARD ([id number])[address] Hematocrit (Bld) [Volume fraction] 45.0 % Normal 35.0-47.0 [facility] Comment on above: Performed By: #### L [id number] ####Dispatch Lead: RIKY PICKARD ([id number])[facility] ([facility])[address] [place] [address] [place] Hemoglobin (Bld) [Mass/Vol] 14.8 g/dL Normal 11.7-16.0 [facility] Comment on above: Performed By: #### L [id number] ####Dispatch Lead: RIKY PICKARD ([id number])[facility])[address] [place] [address] MCH (RBC) [Entitic mass] 33.1 pg Normal 26.0-34.0 [facility] Comment on above: Performed By: #### L [id number] ####Dispatch Lead: RIKY PICKARD ([id number])[facility] ([facility])[address] [place] [address] MCHC 32.9 % Normal 30.5-36.0 [facility] Comment on above: Performed By: #### L [id number] ####Dispatch Lead: RIKY PICKARD ([id number])[facility] ([facility])[address] [place] [address] MCV (RBC) [Entitic vol] 100.7 fL High 77.0-99.0 [facility] Comment on above: Performed By: #### L [id number] ####Dispatch Lead: RIKY PICKARD ([id number])[facility] ([facility])[address] [place] [address] Platelet mean volume (Bld) [Entitic vol] 10.6 fL Normal 9.0-12.7 [facility] Comment on above: Performed By: #### L [id number] ####Dispatch Lead: RIKY PICKARD ([id number])[facility])[address] [place] [address] Platelets (Bld) [#/Vol] 150 10*3/uL Normal 140-440 [facility] Comment on above: Performed By: #### L [id number] ####Dispatch Lead: RIKY PICKARD ([id number])[facility])[address] [place] [address] RBC (Bld) [#/Vol] 4.47 10*6/uL Normal 3.80-5.20 [facility] Comment on above: Performed By: #### L [id number] ####Dispatch Lead: RIKY PICKARD ([id number])[facility] ([facility])[address] [place] [address] WBC (Bld) [#/Vol] 14.1 10*3/uL High 3.6-10.7 [facility] Comment on above: Performed By: #### L [id number] ####Dispatch Lead: RIKY PICKARD ([id number])[facility] ([facility])[address] [place] [address] CBC panel Auto (Bld)on 04-21 Erythrocyte distribution width (RBC) [Ratio] 13.2 % 11.5 - 15.0 % [facility] Hematocrit (Bld) [Volume fraction] 45 % 35.0 - 47.0 % [facility] Hemoglobin (Bld) [Mass/Vol] 14.8 g/dL 11.7 - 16.0 g/dL [facility] Interpretation and review of laboratory results Abnormal [facility] MCH (RBC) [Entitic mass] 33.1 pg 26.0 - 34.0 pg [facility] MCHC (RBC) [Mass/Vol] 32.9 % 30.5 - 36.0 % [facility] MCV (RBC) [Entitic vol] 100.7 fL High 77.0 - 99.0 fL [facility] Platelet mean volume (Bld) [Entitic vol] 10.6 fL 9.0 - 12.7 fL [facility] Platelets (Bld) [#/Vol] 150 10*3/uL 140 - 440 10*3/uL [facility] RBC (Bld) [#/Vol] 4.47 10*6/uL 3.80 - 5.2 0 10*6/uL [facility] WBC (Bld) [#/Vol] 14.1 10*3/uL High 3.6 - 10.7 10*3/uL [facility] CKon 04-21-2025 CK [Catalytic activity/Vol] 112 U/L Normal 30-185 [facility] Comment on above: Performed By: #### L [id number], LAB62 ####Dispatch Lead: RIKY PICKARD ([id number])[facility] ([facility])[address] [place] [address] CK [Catalytic activity/Vol]o n 04-21-2025 Interpretation and review of laboratory results Normal [facility] COMPREHENSIVE METABOLIC PANE Jay 04-21-2025 Albumin [Mass/Vol] 4.1 g/dL Normal 3.4-4.8 [facility] Comment on above: Performed By: #### L AB17, LAB62 ####Dispatch Lead: RIKY PICKARD ([id number])[facility] ([facility])[address] [place] [address] ALP [Catalytic activity/Vol] 212 U/L High 40-150 [facility] Comment on above: Performed By: #### L [id number], LAB62 ####Dispatch Lead: RIKY PICKARD ([id number])[facility])[address] [place] [address] ALT [Catalytic activity/Vol] 17 U/L Normal <30 [facility] Comment on above: Performed By: #### L [id number], LAB62 ####Dispatch Lead: RIKY PICKARD ([id number])[facility] ([facility])[address] [place] [address] Anion gap [Moles/Vol] 12 mmol/L Normal 3-13 Formerly [facility] Comment on above: Performed By: #### L [id number], [id number] ####Dispatch Lead: RIKY PICKARD ([id number])[facility] ([facility])[address] [place] [address] AST [Catalytic activity/Vol] 24 U/L Normal <34 [facility] Comment on above: Performed By: #### L [id number], [id number] ####Dispatch Lead: RIKY PICKARD ([id number])[facility] ([facility])[address] [place] [address] Bilirubin [Mass/Vol] 0.8 mg/dL Normal <1.2 [facility] Comment on above: Performed By: #### L AB17, LAB62 ####Dispatch Lead: RIKY [id number])[facility])[address] [place] [address] Calcium [Mass/Vol] 9.6 mg/dL Normal 8.8-10.0 [facility] Comment on above: Performed By: #### L [id number], [id number] ####Dispatch Lead: RIKY PICKARD ([id number])[facility] [place] [address] Chloride [Moles/Vol] 101 mmol/L Normal 98-107 [facility] Comment on above: Performed By: #### L [id number], LAB62 ####Dispatch Lead: RIKY PICKARD ([id number])[facility] ([facility])[address] [place] [address] CO2 [Moles/Vol] 22 mmol/L Low 23-31 [facility] Comment on above: Performed By: #### L [id number], LAB62 ####Dispatch Lead: RIKY PICKARD ([id number])[facility] ([facility])[address] [place] [address] Creatinine [Mass/Vol] 0.66 mg/dL Normal 0.57-1.11 [facility] Comment on above: Performed By: #### L AB17, LAB62 ####Dispatch Lead: RIKY PICKARD ([phone])[facility])[address] [place] [address] GLOMERULAR FILTRATION RATE ML/MIN/1.73 SQ M.PREDICTED 87.2 mL/min/1.73m*2 Normal >60.0 [facility] Comment on above: Result Comment: Calc ulation based on the Chronic Kidney Disease Epidemiology Collaboration (CKD-EPI) equation refit without adjustment for race Performed By: #### L AB17, LAB62 ####Dispatch Lead: RIKY PICKARD ([phone])[facility] ([facility])[address] [place] [address] [place] Glucose [Mass/Vol] 146 mg/dL High 82-115 [facility] Comment on above: Performed By: #### L AB17, LAB62 ####Dispatch Lead: RIKY [id number])[facility])[address] [place] [address] Potassium [Moles/Vol] 3.6 mmol/L Normal 3.5-5.1 [facility] Comment on above: Result Comment: [facility] potassium values may be up to 0.5 mmol/L lower than serum values. Performed By: #### L AB17, LAB62 ####Dispatch Lead: RIKY PICKARD ([id number])[facility])[address] [place] [address] Protein [Mass/Vol] 7.5 g/dL Normal 6.4-8.3 [facility] Comment on above: Performed By: #### L AB17, LAB62 ####Dispatch Lead: RIKY PICKARD ([phone])[facility])[address] [place] [address] Sodium [Moles/Vol] 135 mmol/L Low 136-145 [facility] Comment on above: Performed By: #### L AB17, LAB62 ####Dispatch Lead: RIKY PICKARD ([phone])[facility])[address] [place] [address] Urea nitrogen [Mass/Vol] 15 mg/dL Normal 9-23 [facility] Comment on above: Performed By: #### L AB17, LAB62 ####Dispatch Lead: RIKY PICKARD ([phone])[address] Comprehensive metabolic 1998 panelon 04-21-2025 Albumin [Mass/Vol] 4.1 g/dL 3.4 - 4.8 g/dL [facility] ALP [Catalytic activity/Vol] 212 U/L High 40 - 150 U/L [facility] ALT [Catalytic activity/Vol] 17 U/L NINF - 30 U/L [facility] Anion gap [Moles/Vol] 12 mmol/L 3 - 13 mmol/L [facility] AST [Catalytic activity/Vol] 24 U/L NINF - 34 U/L [facility] Bilirubin [Mass/Vol] 0.8 mg/dL NINF - 1.2 mg/dL [facility] Calcium [Mass/Vol] 9.6 mg/dL 8.8 - 10. 0 mg/dL [facility] Chloride [Moles/Vol] 101 mmol/L 98 - 10 7 mmol/L [facility] CO2 [Moles/Vol] 22 mmol/L Low 23 - 31 mmol/L [facility] Creatinine [Mass/Vol] 0.66 mg/dL 0.57 - 1.11 mg/dL [facility] GFR/1.73 sq M.predicted (S/P/Bld) [Vol rate/Area] 87.2 mL/min - PINF [facility] Comment on above: Calculation based on the Chronic Kidney Disease Epidemiology Collaboration (CKD-EPI) equation refit without adjustment for race Glucose [Mass/Vol] 146 mg/dL High 82 - 115 mg/dL [facility] Interpretation and review of laboratory results Abnormal [facility] Potassium [Moles/Vol] 3.6 mmol/L 3.5 - 5.1 mmol/L [facility] Comment on above: Plasma potassium dede ues may be up to 0.5 mmol/L lower than serum values. Protein [Mass/Vol] 7.5 g/dL 6.4 - 8.3 g/dL [facility] Sodium [Moles/Vol] 135 mmol/L Low 136 - 145 mmol/L [facility] Urea nitrogen [Mass/Vol] 15 mg/dL 9 - 23 mg/dL [facility] Consulton 04-21-2025 Consult Normal [facility] Consult Normal [facility] ECG 12-LEADon 04-21-2025 ECG 12-LEAD IMPRESSION: Sinus rhythm LAD, consider left anterior fascicular block Nonspecific T abnrm, anterolateral leads No change compared to previous ekg Electronically Signed On 04-21-2025 12:28:43 EDT by Elliott Navarro [facility] ED Nursing Noteon 04-21-2025 ED Nursing Note Normal [facility] ED Nursing Note Report given to Idris FUENTES [facility] ED Nursing Note Pt covered in urine wet and cold upon arrival to ed. Pt given the option to salvage clothing but stated to just cut it off to reduce pain . Pt dry cleaned placed in hospital robe and had no needs at this time . Normal [facility] ED Provider Noteon ED Provider Note Normal [facility] HEMOGLOBIN AND HEMATOCRIT, B LOODon 04-21-2025 Hematocrit (Bld) [Volume fraction] 30.8 % Low 35.0-47.0 [facility] Comment on above: Performed By: #### L [id number] ####Dispatch Lead: RIKY PICKARD ([phone])[facility])[address] [place] [address] Hemoglobin (Bld) [Mass/Vol] 10.4 g/dL Low 11.7-16.0 [facility] Comment on above: Performed By: #### L [id number] ####Dispatch Lead: RIKY PICKARD ([id number])[facility])[address] [place] [address] Hematocrit (Bld) [Volume fraction] 31.5 % Low 35.0-47.0 [facility] Comment on above: Performed By: #### L [id number] ####Dispatch Lead: RIKY PICKARD ([id number])[facility])[address] [place] [address] Hemoglobin (Bld) [Mass/Vol] 10.4 g/dL Low 11.7-16.0 [facility] Comment on above: Performed By: #### L [id number] ####Dispatch Lead: RIKY PICKARD ([id number])[facility])[address] [place] [address] HIGH SENSITIVITY TROPONIN, S ERIAL BASELINEon 04-21-2025 TROPONIN HS SERIAL BASELINE 68 ng/L High <=14 [facility] Comment on above: Result Comment: In i ndividuals presenting with symptoms > 2h, a baseline troponin <= 5 ng/L suggests acutecardiac injury is unlikely and further serial testing is generally not indicated. Performed By: #### L [id number], [id number] ####Dispatch Lead: RIKY PICKARD ([id number])[facility])[address] [place] [address] HIGH SENSITIVITY TROPONIN, S ERIAL, SECOND TESTon 04-21-2025 2H TROPONIN HS (SERIAL 2ND TROPONIN) 82 ng/L High <=14 [facility] Comment on above: Result Comment: Risi ng or falling troponin delta between 2 ??? 15 ng/L as compared to baseline value requires a 3rd serial troponin Performed By: #### L [id number] ####Dispatch Lead: RIKY PICKARD ([id number])[facility] ([facility])[address] [place] [address] HIGH SENSITIVITY TROPONIN, S ERIAL, THIRD TESTon 04-21-2025 4H TROPONIN HS (SERIAL 3RD TROPONIN) 101 ng/L High <=14 [facility] Comment on above: Result Comment: Risi ng or falling troponin delta greater than 15 ng/L as compared to 2h troponin value issignificant for acute cardiac injury. Performed By: #### L [id number] ####Dispatch Lead: RIKY PICKARD ([id number])[facility] ([facility])[address] [place] [address] Hemoglobin (Bld) [Mass/Vol]o n 04-21-2025 Hematocrit (Bld) [Volume fraction] 30.8 % Low 35.0 - 47.0 % [facility] Interpretation and review of laboratory results Abnormal [facility] Hemoglobin (Bld) [Mass/Vol]O rdered By: Nancy Aaron on 04-21-2025 Hematocrit (Bld) [Volume fraction] 31.5 % Low 35.0 - 47.0 % [facility] Interpretation and review of laboratory results Abnormal [facility] LACTIC ACID WITH REFLEXon Lactate [Moles/Vol] 6.4 mmol/L Critically high 0.5-2.2 [facility] Comment on above: Performed By: #### L [id number] ####Dispatch Lead: RIKY PICKARD ([id number])[facility] ([facility])[address] [place] [address] Lactate [Moles/Vol] 4.3 mmol/L Critically high 0.5-2.2 [facility] Comment on above: Performed By: #### L [id number] ####Dispatch Lead: RIKY PICKARD ([id number])[facility] ([facility])[address] [place] [address] Laboratory - Chemistry and C hemistry - challengeOrdered By: Leonila Ruffin on 04-21-2025 Lactate [Moles/Vol] 6.4 mmol/L Critically high 0.5 - 2.2 mmol/L [facility] Laboratory - Chemistry and C hemistry - challengeOrdered By: Leatha Montanez on 04-21-2025 Lactate [Moles/Vol] 4.3 mmol/L Critically high 0.5 - 2.2 mmol/L [facility] Laboratory - Chemistry and C hemistry - challengeon 04-21-2025 CK [Catalytic activity/Vol] 112 U/L 30 - 185 U/L [facility] Laboratory - Coagulationon 0 04-21-2025 aPTT Coag (PPP) [Time] 27.9 s 20.0 - 30.5 s [facility] INR Coag (PPP) [Relative time] 1.1 {INR} 0.9 - 1.1 [facility] Comment on above: Recommended Anticoag ulant Therapy: SEE BELOW ----- INR of 2.0 - 3.0 : - Prophylaxis of Venous Thrombosis (high-risk surgery) - Treatment of Venous Thrombosis - Treatment of Pulmonary Embolism (Includes tissue heart valves, Acute Myocardial Infarction to prevent systemic embolism, Valvular Heart Disease, and Atrial Fibrillation) ----- INR of 2.5 - 3.5 : - Mechanical Prosthetic Valves (high risk) - If oral anticoagulant therapy is used to prevent Myocardial Infarction PT Coag (Bld) [Time] 11.3 s 9.0 - 12.0 s [facility] Laboratory - Hematology and Cell countson 04-21-2025 Hemoglobin (Bld) [Mass/Vol] 10.4 g/dL Low 11.7 - 16.0 g/dL [facility] Laboratory - Hematology and Cell countsOrdered By: Nancy Aaron on 04-21-2025 Hemoglobin (Bld) [Mass/Vol] 10.4 g/dL Low 11.7 - 16.0 g/dL [facility] No Panel InformationOrdered By: Leonila Ruffin on 04-21-2025 Interpretation and review of laboratory results Abnormal [facility] No Panel Informationon 04-21 4h Troponin HS (Serial 3rd Troponin) 101 ng/L High NINF - 14 ng/L [facility] Comment on above: Rising or falling tr oponin delta greater than 15 ng/L as compared to 2h troponin value is significant for acute cardiac injury. Interpretation and review of laboratory results Abnormal [facility] 2h Troponin HS (Serial 2nd Troponin) 82 ng/L High NINF - 14 ng/L [facility] Comment on above: Rising or falling tr oponin delta between 2 15 ng/L as compared to baseline value requires a 3rd serial troponin Interpretation and review of laboratory results Abnormal [facility] Interpretation and review of laboratory results Abnormal [facility] Troponin HS Serial Baseline 68 ng/L High NINF - 14 ng/L [facility] Comment on above: In individuals prese nting with symptoms > 2h, a baseline troponin <= 5 ng/L suggests acute cardiac injury is unlikely and further serial testing is generally not indicated. [facility] There is no interpretation needed for this exam. IMAGING P Lott 53 degrees [facility] WA Interval 195 ms [facility] QRS Lott -74 degrees [facility] QRSD [facility]val 457 ms [facility] QTC Interval 469 ms [facility] T Wave Lott 78 degrees [facility] Sinus rhythm LAD, consider left anterior fascicular block Nonspecific T abnrm, anterolateral leads No change compared to previous ekg Electronically Signed On 04-21-2025 12:28:43 EDT by Elliott Glover M D - 04/21/2025 IMPRESSION: Sinus rhythm LAD, consider left anterior fascicular block Nonspecific T abnrm, anterolateral leads No change compared to previous ekg Electronically Signed On 04-21-2025 12:28:43 EDT by Elliott Navarro [facility] Interpretation and review of laboratory results Normal [facility] No Panel InformationOrdered By: Leatha Montanez on 04-21-2025 Interpretation and review of laboratory results Abnormal [facility] Nursing Noteon 04-21-2025 Nursing Note notified via secure chat of critical lab value of lactic acid of 4.3, no new order received. Normal [facility] Nursing Note Pt granddaughter. Ed, updated at this time. Pt family given pt new room number, on the way to T2 waiting room. Normal [facility] Nursing Note Dr. Ha at pt bedside in PACU. Normal [facility] Nursing Note ICU residents at pt bedside in PACU. Normal [facility] Nursing Note Dr. Lee at pt bedside Normal [facility] Nursing Note Pt granddaughter, Ed, updated at this time. Normal [facility] Nursing Note Ortho.residents at p t bedside to assess pt. Pt w/ hematoma to surgical site L outer thigh, assessed, wrapped w/ MARYAM wrap, saline bag. Per MD, leave MARYAM wrap on overnight. Normal [facility] Nursing Note Dr. Coto at pt bedside in PACU. Normal [facility] Op Noteon 04-21-2025 Op Note Normal [facility] PROTIME AND APTTon aPTT Coag (Bld) [Time] 27.9 s Normal 20.0-30.5 [facility] Comment on above: Performed By: #### L [id number] ####Dispatch Lead: RIKY PICKARD ([id number])[facility] [employer] INR Coag (PPP) [Relative time] 1.1 {INR} Normal 0.9-1.1 [facility] Comment on above: Result Comment: Jono mmended Anticoagulant Therapy: SEE BELOW----- INR of 2.0 - 3.0 : - Prophylaxis of Venous Thrombosis (high-risk surgery) - Treatment of Venous Thrombosis - Treatment of Pulmonary Embolism (Includes tissue heart valves, Acute Myocardial Infarction to prevent systemic embolism, Valvular Heart Disease, and Atrial Fibrillation)----- INR of 2.5 - 3.5 : - Mechanical Prosthetic Valves (high risk) - If oral anticoagulant therapy is used to prevent Myocardial Infarction Performed By: #### L [id number] ####Dispatch Lead: RIKY PICKARD ([id number])[facility] [employer] PT Coag (PPP) [Time] 11.3 s Normal 9.0-12.0 [facility] Comment on above: Performed By: #### L [id number] ####Dispatch Lead: RIKY [id number])[facility] ([facility])[address] [place] [address] Vital signson 04-21-2025 Heart rate 63 /min bpm [facility] XR Chest Single viewon 04-21 Patient Name: MADAY ALFARO : 1940 Exam Date/Time: 04/21/2025 11:41 Procedure: XR CHEST 1 VIEW Ordering Provider: NAVARRO AUSTIN Reason For Exam: PRE-ANESTHESIA SEDATION HISTORY: preanesthesia Frontal view the chest shows tortuosity and enlargement of the thoracic aorta possible aneurysmal, increasing since 2019 chest x-ray with normal heart size with no infiltrates or pleural effusions. Report Dictated on Electronically Signed By: Jean Paul Payne MD Electronically Signed Date/Time: 04/21/2025 12:27 PM EDT [facility] Jean Paul Payne MD - 04/21/2025 Patient Name: MADAY ALFARO : 1940 Exam Date/Time: 04/21/2025 11:41 Procedure: XR CHEST 1 VIEW Ordering Provider: NAVARRO AUSTIN Reason For Exam: PRE-ANESTHESIA SEDATION HISTORY: preanesthesia Frontal view the chest shows tortuosity and enlargement of the thoracic aorta possible aneurysmal, increasing since 2019 chest x-ray with normal heart size with no infiltrates or pleural effusions. Report Dictated on Electronically Signed By: Jean Paul Payne MD Electronically Signed Date/Time: 04/21/2025 12:27 PM EDT [facility] Radiology Study observation (narrative) [facility] XR FEMUR 2+ VW LEFTon 2024 XR FEMUR 2+ VW LEFT Normal [facility] XR Femur - left 2 Viewson Intact left femoral fixation hardware. Report Dictated on Electronically Signed By: Lexus Rankin MD Electronically Signed Date/Time: 04/21/2025 3:37 PM EDT [facility] Patient Name: MADAY ALFARO: 1940 Exam Date/Time: 04/21/2025 15:16 Procedure: XR FEMUR 2+ VW LEFT Ordering Provider: MOLINA TYLER Reason For Exam: post op EXAM: XR Left Femur, 2 Views CLINICAL INDICATION: post op TECHNIQUE: Frontal and lateral views of the left femur. COMPARISON: Left femur radiographs from 04/21/2025. Left hip radiographs from 04/21/2025. FINDINGS: BONES/JOINTS: Left femoral intramedullary ras with proximal and distal interlocking fixation screws. Hardware appears intact. Redemonstration of a left femoral intertrochanteric fracture. Improved alignment following fixation. Moderate left hip joint DJD. Left sacroiliac joint DJD. Degenerative change of the lower lumbar spine. Degenerative change of the pubic symphysis. Mild degenerative change of the medial and patellofemoral compartments of the knee. Tiny superior patellar enthesophyte. SOFT TISSUES: Expected postsurgical changes in the soft tissues. Several skin yeni. [facility] Lexus Rankin M D - 04/21/2025 Patient Name: MADAY ALFARO : 1940 Exam Date/Time: 04/21/2025 15:16 Procedure: XR FEMUR 2+ VW LEFT Ordering Provider: MOLINA TYLER Reason For Exam: post op EXAM: XR Left Femur, 2 Views CLINICAL INDICATION: post op TECHNIQUE: Frontal and lateral views of the left femur. COMPARISON: Left femur radiographs from 04/21/2025. Left hip radiographs from 04/21/2025. FINDINGS: BONES/JOINTS: Left femoral intramedullary ras with proximal and distal interlocking fixation screws. Hardware appears intact. Redemonstration of a left femoral intertrochanteric fracture. Improved alignment following fixation. Moderate left hip joint DJD. Left sacroiliac joint DJD. Degenerative change of the lower lumbar spine. Degenerative change of the pubic symphysis. Mild degenerative change of the medial and patellofemoral compartments of the knee. Tiny superior patellar enthesophyte. SOFT TISSUES: Expected postsurgical changes in the soft tissues. Several skin yeni. IMPRESSION: Intact left femoral fixation hardware. Report Dictated on Electronically Signed By: Lexsu Rankin MD Electronically Signed Date/Time: 04/21/2025 3:37 PM EDT [facility] Radiology Study observation (narrative) [facility] Patient Name: MADAY ALFARO : 1940 Exam Date/Time: 04/21/2025 11:41 Procedure: XR FEMUR 2+ VW LEFT Ordering Provider: NAVARRO AUSTIN Reason For Exam: evaluate the entire bone HISTORY: Left hip fracture Additional views of the left femur show no other fractures with changes of degenerative joint disease involving medial compartment of the knee. Report Dictated on Electronically Signed By: Jean Paul Payne MD Electronically Signed Date/Time: 04/21/2025 12:24 PM EDT [facility] Jean Paul Payne MD - 04/21/2025 Patient Name: MADAY ALFARO : 1940 Exam Date/Time: 04/21/2025 11:41 Procedure: XR FEMUR 2+ VW LEFT Ordering Provider: NAVARRO AUSTIN Reason For Exam: evaluate the entire bone HISTORY: Left hip fracture Additional views of the left femur show no other fractures with changes of degenerative joint disease involving medial compartment of the knee. Report Dictated on Electronically Signed By: Jean Paul Payne MD Electronically Signed Date/Time: 04/21/2025 12:24 PM EDT [facility] Radiology Study observation (narrative) [facility] XR Femur - left 2 ViewsOrder ed By: Lexus Rankin on 04-21-2025 [facility] Work Phone: XR Hip - left 3 Viewson Patient Name: MADAY ALFARO : 1940 Exam Date/Time: 04/21/2025 10:39 Procedure: XR HIP 2 OR 3 VW LEFT Ordering Provider: NAVARRO AUSTIN Reason For Exam: Hip trauma, fracture suspected, no prior imaging HISTORY: Trauma Frontal view the pelvis and views left hip shows COMMINUTED INTERTROCHANTERIC FRACTURE of the left hip with varus angulation. 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 Report Dictated on Electronically Signed By: Jean Paul Payne MD Electronically Signed Date/Time: 04/21/2025 10:52 AM EDT [facility] Jean Paul Payne MD - 04/21/2025 Patient Name: MADAY ALFARO : 1940 Exam Date/Time: 04/21/2025 10:39 Procedure: XR HIP 2 OR 3 VW LEFT Ordering Provider: NAVARRO AUSTIN Reason For Exam: Hip trauma, fracture suspected, no prior imaging HISTORY: Trauma Frontal view the pelvis and views left hip shows COMMINUTED INTERTROCHANTERIC FRACTURE of the left hip with varus angulation. 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 Report Dictated on Electronically Signed By: Jean Paul Payne MD Electronically Signed Date/Time: 04/21/2025 10:52 AM EDT [facility] Radiology Study observation (narrative) [facility] XR Hip - left 3 ViewsOrdered By: Jean Paul Payne on 04-21-2025 [facility] Work Phone: Progress Noteon 10-17-2024 Progress Note Normal [facility] Progress Noteon 09-11-2024 [facility] Progress Noteon 08-29-2024 Progress Note [facility] Progress Noteon 08-27-2024 Progress Note [facility] Progress Noteon 08-20-2024 Progress Note Normal [facility] Progress Noteon 08-09-2024 Progress Note Normal [facility] Progress Noteon 08-02-2024 Progress Note Normal [facility] Progress Noteon 07-24-2024 Progress Note Normal [facility] Progress Noteon 07-18-2024 Progress Note [facility] ED Nursing Noteon 07-15-2024 ED Nursing Note Patient reports a fa ll last night and states she tried to break her fall with her right arm. Patient reports right arm pain, unable to move it much. Normal [facility] ED Provider Noteon ED Provider Note Normal [facility] No Panel InformationOrdered By: Jose Gaines on 07-15-2024 [facility] Work Phone: No Panel Informationon 07-15 Radiology Study observation (narrative) Fabienne walters XR Humerus - right Viewson 1 09-15-2023 Patient Name: MADAY ALFARO : 1940 Exam Date/Time: 07/15/2024 14:45 Procedure: XR HUMERUS RIGHT Ordering Provider: CAAL MEJGON Reason For Exam: fall onto shoulder RIGHT SHOULDER AND HUMERUS: CLINICAL INDICATION: Fall, pain. TECHNIQUE: Grashey, axillary and Y-view right shoulder, AP and lateral right humerus COMPARISON: None. FINDINGS: There is an impacted fracture of the surgical neck of the humerus. No glenohumeral joint dislocation. Mild degenerative changes in the acromioclavicular joint. Mild soft tissue swelling surrounding the shoulder. Report Dictated on Electronically Signed By: Jose Gaines MD Electronically Signed Date/Time: 07/15/2024 3:11 PM [facility] Jose Gaines MD - 07/15/2024 Patient Name: MADAY ALFARO : 1940 Exam Date/Time: 07/15/2024 14:45 Procedure: XR HUMERUS RIGHT Ordering Provider: CAAL MEJGON Reason For Exam: fall onto shoulder RIGHT SHOULDER AND HUMERUS: CLINICAL INDICATION: Fall, pain. TECHNIQUE: Grashey, axillary and Y-view right shoulder, AP and lateral right humerus COMPARISON: None. FINDINGS: There is an impacted fracture of the surgical neck of the humerus. No glenohumeral joint dislocation. Mild degenerative changes in the acromioclavicular joint. Mild soft tissue swelling surrounding the shoulder. Report Dictated on Electronically Signed By: Jose Gaines MD Electronically Signed Date/Time: 07/15/2024 3:11 PM [facility] XR Shoulder - right 2 Viewso n 07-15-2024 Patient Name: MADAY ALFARO : 1940 Exam Date/Time: 07/15/2024 14:45 Procedure: XR SHOULDER 2+ VIEWS RIGHT Ordering Provider: CAAL MEJGON Reason For Exam: fall onto shoulder RIGHT SHOULDER AND HUMERUS: CLINICAL INDICATION: Fall, pain. TECHNIQUE: Grashey, axillary and Y-view right shoulder, AP and lateral right humerus COMPARISON: None. FINDINGS: There is an impacted fracture of the surgical neck of the humerus. No glenohumeral joint dislocation. Mild degenerative changes in the acromioclavicular joint. Mild soft tissue swelling surrounding the shoulder. Report Dictated on Electronically Signed By: Jose Gaines MD Electronically Signed Date/Time: 07/15/2024 3:11 PM [facility] Jose Gaines MD - 07/15/2024 Patient Name: MADAY ALFARO : 1940 Exam Date/Time: 07/15/2024 14:45 Procedure: XR SHOULDER 2+ VIEWS RIGHT Ordering Provider: CAAL MEJGON Reason For Exam: fall onto shoulder RIGHT SHOULDER AND HUMERUS: CLINICAL INDICATION: Fall, pain. TECHNIQUE: Grashey, axillary and Y-view right shoulder, AP and lateral right humerus COMPARISON: None. FINDINGS: There is an impacted fracture of the surgical neck of the humerus. No glenohumeral joint dislocation. Mild degenerative changes in the acromioclavicular joint. Mild soft tissue swelling surrounding the shoulder. Report Dictated on Electronically Signed By: Jose Gaines MD Electronically Signed Date/Time: 07/15/2024 3:11 PM EST [facility] DXA Skeletal system.axial Vi ews for bone densityon 01-30-2024 Osteoporosis. Report Dictated on Electronically Signed By: Lexus Rankin MD Electronically Signed Date/Time: 01/30/2024 11:44 AM [facility] Patient Name: MADAY ALFARO : 1940 [facility]#: [id number] Exam Date/Time: 01/30/2024 11:22 Procedure: DEXA BONE DENSITY AXIAL SKELETON Ordering Provider: BROWN JACQUELINE Reason For Exam: OSTEOPENIA DXA BONE DENSITOMETRY: CLINICAL INDICATION: Screening for osteoporosis. COMPARISON: No relevant prior study TECHNIQUE: Quantitative bone mineral densitometry of the hip and lumbar spine was performed with a dual energy x-ray observed absorptiometry device. Regions of interest were obtained through the Left proximal femur and compared to the normal value of young adult women. Regions of interest were also obtained through the lumbar vertebrae with an average value determined and compared to the normal value of young adult woman. The difference between your measured bone density and the bone density of a normal young woman is expressed in standard deviations as the T score. Similarly, your measured bone is also compared to age and race matched values, and expressed in standard deviations as the Z score. According to World Health Organization criteria: T-score of -1.0 or higher is normal. T-score between -1.0 and -2.5 is low bone density or osteopenia. T-score of -2.5 or lower is abnormally low, compatible with osteoporosis. FINDINGS: Femoral neck Density: 0.58 g/cm2. T-score: -2.5 Z-score: -0.1 Total Hip Density: 0.58 g/cm2. T-score: -3.0 Z-score: -0.8 Comparison from prior examination: N/A. Spine: L1-L4 Density 0.87 g/cm2. T-score: -1.6 Z-score: 1.2 Comparison from prior examination: N/A. Mild levocurvature of the lumbar spine. Left hip joint DJD. FRACTURE RISK: The estimated 10 year risk for a major osteoporosis-related fracture is 27 % and for a hip fracture is 11 % . (FRAX web version 3.11). [facility] Lexus Rankin M D - 01/30/2024 Patient Name: MADAY ALFARO : 1940 [facility]#: [id number] Exam Date/Time: 01/30/2024 11:22 Procedure: DEXA BONE DENSITY AXIAL SKELETON Ordering Provider: BROWN JACQUELINE Reason For Exam: OSTEOPENIA DXA BONE DENSITOMETRY: CLINICAL INDICATION: Screening for osteoporosis. COMPARISON: No relevant prior study TECHNIQUE: Quantitative bone mineral densitometry of the hip and lumbar spine was performed with a dual energy x-ray observed absorptiometry device. Regions of interest were obtained through the Left proximal femur and compared to the normal value of young adult women. Regions of interest were also obtained through the lumbar vertebrae with an average value determined and compared to the normal value of young adult woman. The difference between your measured bone density and the bone density of a normal young woman is expressed in standard deviations as the T score. Similarly, your measured bone is also compared to age and race matched values, and expressed in standard deviations as the Z score. According to World Health Organization criteria: T-score of -1.0 or higher is normal. T-score between -1.0 and -2.5 is low bone density or osteopenia. T-score of -2.5 or lower is abnormally low, compatible with osteoporosis. FINDINGS: Femoral neck Density: 0.58 g/cm2. T-score: -2.5 Z-score: -0.1 Total Hip Density: 0.58 g/cm2. T-score: -3.0 Z-score: -0.8 Comparison from prior examination: N/A. Spine: L1-L4 Density 0.87 g/cm2. T-score: -1.6 Z-score: 1.2 Comparison from prior examination: N/A. Mild levocurvature of the lumbar spine. Left hip joint DJD. FRACTURE RISK: The estimated 10 year risk for a major osteoporosis-related fracture is 27 % and for a hip fracture is 11 % . (FRAX web version 3.11). IMPRESSION: Osteoporosis. Report Dictated on Electronically Signed By: Lexus Rankin MD Electronically Signed Date/Time: 01/30/2024 11:44 AM EDT [facility] Radiology Study observation (narrative) [facility] DXA Skeletal system.axial Vi ews for bone densityOrdered By: Lexus Rankin on 01-30-2024 [facility] Work Phone: XR Foot - right 3 Viewson Minimally displaced fractures of the second through fifth metatarsal necks with mild lateral angulation of the metatarsal heads. The appearance is not significantly changed when compared with films from 10/01/2023. Osteopenia and degenerative changes. Mild soft tissue swelling. Report Dictated on Electronically Signed By: Francisco Frias MD Electronically Signed Date/Time: 10/12/2023 9:01 AM EST [facility] SYSTEM Patient Name: MADAY ALFARO : 1940 Exam Date/Time: 10/11/2023 11:28 Procedure: XR FOOT 3+ VIEWS RIGHT Ordering Provider: BROWN JACQUELINE Reason For Exam: Fracture, foot RIGHT FOOT CLINICAL INDICATION: Fracture follow-up AP, lateral, and oblique plain film views of the right foot were obtained. COMPARISON: 10/01/2023. The bones are osteopenic. Again are identified minimally displaced fractures of the second, third, fourth, and fifth metatarsals distally with slight lateral angulation of the metatarsal heads. This is similar to the study from 10/01/2023. No new fracture or dislocation of the right foot is identified. There is mild osteoarthritis of the interphalangeal joints. Mild soft tissue swelling of the dorsum of the right foot is noted on the lateral view. There is no radiopaque foreign body or soft tissue gas. [facility] Francisco Frias MD - 10/12/2023 Patient Name: MADAY ALFARO : 1940 [facility]#: [id number] Exam Date/Time: 10/11/2023 11:28 Procedure: XR FOOT 3+ VIEWS RIGHT Ordering Provider: BROWN JACQUELINE Reason For Exam: Fracture, foot RIGHT FOOT CLINICAL INDICATION: Fracture follow-up AP, lateral, and oblique plain film views of the right foot were obtained. COMPARISON: 10/01/2023. The bones are osteopenic. Again are identified minimally displaced fractures of the second, third, fourth, and fifth metatarsals distally with slight lateral angulation of the metatarsal heads. This is similar to the study from 10/01/2023. No new fracture or dislocation of the right foot is identified. There is mild osteoarthritis of the interphalangeal joints. Mild soft tissue swelling of the dorsum of the right foot is noted on the lateral view. There is no radiopaque foreign body or soft tissue gas. IMPRESSION: Minimally displaced fractures of the second through fifth metatarsal necks with mild lateral angulation of the metatarsal heads. The appearance is not significantly changed when compared with films from 10/01/2023. Osteopenia and degenerative changes. Mild soft tissue swelling. Report Dictated on Electronically Signed By: Francisco Frias MD Electronically Signed Date/Time: 10/12/2023 9:01 AM EST [facility] XR Foot - right 3 ViewsOrder ed By: Francisco Frias on 10-12-2023 [facility] XR Foot - right 3 Viewson Radiology Study observation (narrative) [facility] XR Foot - right 3 Viewson Acute, comminuted an d slightly displaced fractures of the necks of metatarsals 2-5 with associated soft tissue swelling. Osteopenia. Report Dictated on Electronically Signed By: Osman Reed MD Electronically Signed Date/Time: 10/01/2023 12:17 PM [facility] Patient Name: MADAY ALFARO : 1940 Exam Date/Time: 10/01/2023 12:12 Procedure: XR FOOT 3+ VIEWS RIGHT Ordering Provider: CHRISTINE DANIEL Reason For Exam: pain, fall EXAMINATION: XR right foot. EXAM DATE & TIME: 10/01/2023 12:12 PM EST INDICATION: pain, fall ADDITIONAL INFORMATION: 83-year-old female with right foot pain after fall presents for evaluation COMPARISON: Right foot radiographs dated 02/02/2013 TECHNIQUE: AP, lateral and oblique views of the right foot were obtained. FINDINGS: There are acute, comminuted and slightly displaced fractures of the necks of the metatarsals 2-5, with lateral apex angulation. Soft tissue swelling surrounds the fracture sites. No significant widening between the bases of the first and second metatarsals. The bones are diffusely osteopenic. No other fracture or dislocation is seen. No radiopaque foreign body. [facility] Osman Reed MD - 10/01/2023 Patient Name: MADAY ALFARO : 1940 Exam Date/Time: 10/01/2023 12:12 Procedure: XR FOOT 3+ VIEWS RIGHT Ordering Provider: CHRISTINE DANIEL Reason For Exam: pain, fall EXAMINATION: XR right foot. EXAM DATE & TIME: 10/01/2023 12:12 PM EST INDICATION: pain, fall ADDITIONAL INFORMATION: 83-year-old female with right foot pain after fall presents for evaluation COMPARISON: Right foot radiographs dated 02/02/2013 TECHNIQUE: AP, lateral and oblique views of the right foot were obtained. FINDINGS: There are acute, comminuted and slightly displaced fractures of the necks of the metatarsals 2-5, with lateral apex angulation. Soft tissue swelling surrounds the fracture sites. No significant widening between the bases of the first and second metatarsals. The bones are diffusely osteopenic. No other fracture or dislocation is seen. No radiopaque foreign body. IMPRESSION: Acute, comminuted and slightly displaced fractures of the necks of metatarsals 2-5 with associated soft tissue swelling. Osteopenia. Report Dictated on Electronically Signed By: Osman Rede MD Electronically Signed Date/Time: 10/01/2023 12:17 PM EST [facility] Radiology Study observation (narrative) Fabienne Bunch alth XR Foot - right 3 ViewsOrder ed By: Osman Reed on 10-01-2023 [facility] Work Phone: CT Abdomen/Pelvis w/o Contra ston 12-26-2018 CT Abdomen/Pelvis w/o Contrast Patient Name: MADAY ALFARO CT Exam Date/Time 12/26/2018 07:43:[address] Abdomen/Pelvis (No PO, No IV) Ordering Physician DESTINY JEAN BAPTISTE Accession Number [id number] CPT4 Codes 67674 (CT Abdomen/Pelvis (No PO, No IV)) Reason For Exam hydronephrosis w/ renal and ureteral calculous obstr. Report Clinical indications: Hydronephrosis with renal and ureteral calculi Technique: A multislice, volume acquisition was obtained from the hemidiaphragms to the proximal femurs, with images reconstructed in 3 mm intervals. Intravenous contrast was not utilized in the study. Oral contrast was not administered for the exam. FINDINGS: Comparison is made with a previous contrast-enhanced study from 05/01/2014. To the limited extent seen, the lung bases are unremarkable. There is some atherosclerosis of the visualized coronary arteries. There is tortuosity of the descending thoracic aorta. Minimal atherosclerosis is also observed. Appearance is similar to the prior study. Evaluation of the solid organs is significantly restricted by lack of intravenous contrast. Within this limitation, no definite abnormality of the liver, spleen, adrenals or pancreas is observed. The gallbladder is also within normal limits. The kidneys show no evidence of calculus or gross mass. There is a prominent left-sided extrarenal pelvis. The ureters appear unremarkable bilaterally. Phleboliths are redemonstrated in the pelvis. The retroperitoneal and mesenteric fat remain intact. There is no adenopathy. Extensive aortoiliac atherosclerosis is unchanged. No aneurysm is seen. Large and small bowel are difficult to evaluate due to lack of enteric contrast but show no definite acute findings. Diverticuli are seen extending from the splenic flexure through the sigmoid. There is no indication of diverticulitis. The terminal ileum is visualized and appears unremarkable. The appendix is not well seen as a discrete structure. In the pelvis, the bladder and rectum are intact. The uterus and adnexa are surgically absent. IMPRESSION: There is a fairly prominent left extrarenal pelvis. There is no definite evidence of hydronephrosis, renal or ureteral calculus. No other acute intra-abdominal or pelvic abnormality is identified. There is moderately extensive atherosclerosis, including the visualized coronary arteries, as described above. Colonic diverticulosis without evidence of diverticulitis. Report Dictated on Final Dictating Physician: MD SEGAL RUSSELL Signed Date and Time: 12/26/2018 9:03 am Signed by: MD SEGAL RUSSELL Transcribed Date and Time: 12/26/2018 9:04 Normal [facility] NM Bone Imaging Whole Bodyon 12-07-2018 NM Bone Imaging Whole Body Patient Name: MADAY ALFARO Nuc Med Exam Date/Time 12/07/2018 13:53:12 EDT Exam NM Bone Imaging Whole Body Ordering Physician DESTINY JEAN BAPTISTE Accession Number [id number] CPT4 Codes 65959 () Reason For Exam intercostal pain Report Indication: Intercostal pain. COMPARISON: 11/27/2018. Dose: 21.1 mCi technetium 99m MDP. FINDINGS: Planar whole body imaging was performed in multiple projections. There is mild increased activity in the spine, hips and shoulders, and in the wrists knees feet and ankles. There is distention of the left renal collecting system. IMPRESSION: Statistically benign findings typical for degenerative changes. Left hydronephrosis. This may help explain the patient's left-sided symptoms. Additional evaluation would be appropriate. Consider ultrasound or CT. Report Dictated on Final Dictating Physician: MD SMITH JOHN Signed Date and Time: 12/07/2018 2:23 pm Signed by: MD SMITH JOHN Transcribed Date and Time: 12/07/2018 2:24 Normal [facility] CR Chest PA/LATon 11-27-2018 CR Chest PA/LAT Patient Name: MADAY ALFARO Diagnostic Radiology Exam Date/Time 11/27/2018 14:12:29 EDT Exam CR Chest PA/LAT Ordering Physician DESTINY JEAN BAPTISTE Accession Number [id number] CPT4 Codes 52982 () Reason For Exam CHEST PAIN Report CHEST, PA and LATERAL: INDICATION: Chest pain COMPARISON: 08/27/2018 PA and lateral views of the chest were obtained. The heart is normal in size. The mediastinal silhouette is normal. The aorta is tortuous but unchanged. The lungs are clear. There are no effusions or infiltrates. There is biapical pleural thickening. Arthritic changes of the spine and shoulders are present. IMPRESSION: Negative chest. Report Dictated on Workstation: [id number] Final Dictating Physician: DO MELENDEZ ALFRED Signed Date and Time: 11/27/2018 2:47 pm Signed by: DO MELENDEZ ALFRED Transcribed Date and Time: 11/27/2018 2:48 Normal [facility] CR Ribs 2 Views Lefton 11-27 CR Ribs 2 Views Left Patient Name: MADAY ALFARO Diagnostic Radiology Exam Date/Time 11/27/2018 14:13:09 EDT Exam CR Ribs 2 Views Left Ordering Physician MARLENDESTINY HO Accession Number [id number] CPT4 Codes 93523 () Reason For Exam PAIN Report LEFT RIB SERIES: INDICATION: Chest pain COMPARISON: No previous studies are available for comparison. Examination of left ribs was obtained with three views. Evaluation of the left ribs demonstrate no evidence of fracture. There is no pleural thickening nor is there abnormality of the underlying pulmonary parenchyma. The heart and mediastinum to the extent of visualization are unremarkable. The aorta remains tortuous. The left lung apex is clear. IMPRESSION: Negative left ribs. Report Dictated on Workstation: [id number] Final Dictating Physician: DO MELENDEZ ALFRED Signed Date and Time: 11/27/2018 2:46 pm Signed by: DO MELENDEZ ALFRED Transcribed Date and Time: 11/27/2018 2:47 Normal [facility] CR Ribs 2 Views Lefton 08-27 CR Ribs 2 Views Left Patient Name: MADAY ALFARO Diagnostic Radiology Exam Date/Time 08/27/2018 11:05:00 EST Exam CR Ribs 2 Views Left Ordering Physician DESTINY JEAN BAPTISTE Accession Number [id number] CPT4 Codes 41440 () Reason For Exam chest pain Report PA chest and left RIBS CLINICAL INDICATION: Chest pain COMPARISON: 08/05/2018 PA view of the chest and AP and oblique views of the left ribs were obtained. The cardiac silhouette is not enlarged. Aorta is tortuous but unchanged. Lungs are clear. No pneumothorax or pleural effusion is identified. On the oblique views there is irregularity at the costochondral margin of the left eighth rib which may represent marginal fracture. IMPRESSION: Possible marginal fracture at the costochondral junction anterior left eighth rib Report Dictated on Final Dictating Physician: MD COHEN DIANE Signed Date and Time: 08/27/2018 1:31 pm Signed by: MD COHEN DIANE Transcribed Date and Time: 08/27/2018 1:32 Normal [facility] Comp Panel with Mg Reflexon 08-06-2018 ALP enzyme act/vol 136 U/L High 38-126 [facility] Comment on above: Performed By: #### C MP3M, LIPD2, HEMOG #### [facility] [address] [place] [address] ALT enzyme act/vol 25 U/L Normal 13-69 [facility] Comment on above: Performed By: #### C MP3M, LIPD2, HEMOG #### [facility] [address] [place] [address] AST enzyme act/vol 23 U/L Normal 15-46 [facility] Comment on above: Performed By: #### C MP3M, LIPD2, HEMOG #### [facility] [address] [place] [address] Calcium mass conc 9.8 mg/dL Normal 8.4-10.4 [facility] Comment on above: Performed By: #### C MP3M, LIPD2, HEMOG #### [facility] [address] [place] [address] Glucose mass conc 98 mg/dL Normal 70-100 [facility] Comment on above: Performed By: #### C MP3M, LIPD2, HEMOG #### [facility] [address] [place] [address] Anion gap molar conc 6 Normal [facility] Comment on above: Performed By: #### C MP3M, LIPD2, HEMOG #### [facility] [address] [place] [address] Bilirubin mass conc 0.6 mg/dL Normal 0.2-1.3 [facility] Comment on above: Performed By: #### C MP3M, LIPD2, HEMOG #### [facility] [address] [place] [address] CO2 molar conc 26 mmol/L Normal 22-30 [facility] Comment on above: Performed By: #### C MP3M, LIPD2, HEMOG #### [facility] [address] [place] [address] Creatinine mass conc 0.57 mg/dL Normal 0.52-1.25 [facility] Comment on above: Performed By: #### C MP3M, LIPD2, HEMOG #### [facility] [address] [place] [address] GFR/1.73 sq M predicted among blacks MDRD vol rate/area (S/P/Bld) mL/min/{1.73_m2} Normal >60 [facility] Comment on above: Performed By: #### C MP3M, LIPD2, HEMOG #### [facility] [address] [place] [address] GFR/1.73 sq M predicted among non-blacks MDRD vol rate/area (S/P/Bld) mL/min/{1.73_m2} Normal >60 [facility] Comment on above: Result Comment: Sour ce- MDRD equation with creatinine calibration to IDMS(NKDEP) eGFR not recommended for drug dose adjustment Performed By: #### C MP3M, LIPD2, HEMOG #### [facility] [address] [place] [address] Protein mass conc 6.2 g/dL Low 6.3-8.2 [facility] Comment on above: Performed By: #### C MP3M, LIPD2, HEMOG #### [facility] [address] [place] [address] Urea nitrogen mass conc 10 mg/dL Normal 7-20 [facility] Comment on above: Performed By: #### C MP3M, LIPD2, HEMOG #### [facility] [address] [place] [address] Potassium molar conc 4.0 mmol/L Normal 3.5-5.1 [facility] Comment on above: Performed By: #### C MP3M, LIPD2, HEMOG #### [facility] [address] [place] [address] Sodium molar conc 136 mmol/L Normal 135-145 [facility] Comment on above: Result Comment: NOTE : New Sodium Reference Range effective 2018 @ 10:00 Performed By: #### C MP3M, LIPD2, HEMOG #### [facility] [address] [place] [address] Albumin mass conc 4.0 g/dL Normal 3.5-5.0 [facility] Comment on above: Performed By: #### C MP3M, LIPD2, HEMOG #### [facility] [address] [place] [address] Chloride molar conc 104 mmol/L Normal 98-107 [facility] Comment on above: Performed By: #### C MP3M, LIPD2, HEMOG #### [facility] [address] [place] [address] Hemogramon 08-06-2018 Erythrocyte distribution width Ratio (RBC) 13.2 % Normal 11.5-14.5 [facility] Comment on above: Performed By: #### C MP3M, LIPD2, HEMOG #### [facility] [address] [place] [address] Hematocrit Volume Fraction (Bld) 42.0 % Normal 35.0-47.0 [facility] Comment on above: Performed By: #### C MP3M, LIPD2, HEMOG #### [facility] [address] [place] [address] Hemoglobin mass conc (Bld) 14.5 g/dL Normal 11.7-16.0 [facility] [facility] Comment on above: Performed By: #### C MP3M, LIPD2, HEMOG #### [facility] [address] [place] [address] MCH Entitic mass (RBC) 32.7 pg Normal 26.0-34.0 [facility] Comment on above: Performed By: #### C MP3M, LIPD2, HEMOG #### [facility] [address] [place] [address] MCHC mass conc (RBC) 34.4 % Normal 32.0-36.0 [facility] Comment on above: Performed By: #### C MP3M, LIPD2, HEMOG #### [facility] [address] [place] [address] MCV Entitic volume (RBC) 95.0 fL Normal 79.0-98.0 [facility] Comment on above: Performed By: #### C MP3M, LIPD2, HEMOG #### [facility] [address] [place] [address] Platelet mean volume Entitic volume (Bld) 8.7 fL Normal 7.4-10.4 [facility] Comment on above: Performed By: #### C MP3M, LIPD2, HEMOG #### [facility] [address] [place] [address] Platelets #/vol (Bld) 198 10*3/uL Normal 140-440 [facility] Comment on above: Performed By: #### C MP3M, LIPD2, HEMOG #### [facility] [address] [place] [address] RBC #/vol (Bld) 4.42 10*6/uL Normal 3.80-5.20 [facility] Comment on above: Performed By: #### C MP3M, LIPD2, HEMOG #### [facility] [address] [place] [address] WBC #/vol (Bld) 5.1 10*3/uL Normal 3.6-10.7 [facility] Comment on above: Performed By: #### C MP3M, LIPD2, HEMOG #### [facility] [address] [place] [address] Lipid Panelon 08-06-2018 Cholesterol in HDL mass conc 69 mg/dL High 40-60 [facility] Comment on above: Performed By: #### C MP3M, LIPD2, HEMOG #### [facility] [address] [place] [address] Cholesterol.total/Mary sterol in HDL mass ratio 3 Normal [facility] Comment on above: Result Comment: Ref Range: < 3 Low Risk for CHD 3-6 Mod Risk for CHD > 6 High Risk for CHD Performed By: #### C MP3M, LIPD2, HEMOG #### [facility] [address] [place] [address] Protein mass conc 100 mg/dL Abnormal <100 [facility] Comment on above: Performed By: #### C MP3M, LIPD2, HEMOG #### [facility] [address] [place] [address] Triglyceride mass conc 79 mg/dL Normal <150 [facility] Comment on above: Performed By: #### C MP3M, LIPD2, HEMOG #### [facility] [address] [place] [address] Cholesterol mass conc 185 mg/dL Normal < 200 [facility] Comment on above: Performed By: #### C MP3M, LIPD2, HEMOG #### [facility] [address] [place] [address] NM Myocardial Perf Imaging Lisa ulti Specton 08-06-2018 NM Myocardial Perf Imaging Multi Spect Patient Name: MADAY ALFARO Nuc Med Exam Date/Time 08/06/2018 09:56:39 EST Exam NM Myocardial Perf Imaging Multi Spect Ordering Physician DO SARMIENTO GEORGE E Accession Number [id number] CPT4 Codes 19235 () Reason For Exam Other forms of angina pectoris Report Nuclear Stress Myocardial Perfusion Study Regadenoson Protocol Gated SPECT Patient: Maday Alfaro Height: (66 in) Weight: (185 lb) : 1940 Age: 78 Gender: F Study Date: 08/06/2018 Accession#: Patient Room #: *ORDERING PHYSICIAN: * Ray Sarmiento *SUPERVISING PHYSICIAN: Ray Zaragoza *RN: Migdalia Santoro *NUCLEAR TECH: Destiny Breen *READING PHYSICIAN: * Blayne Lo MD --------- --- Indications: Chest Pain. --------- --- Summary: 1. Normal vasodilator stress EKG. 2. Normal vasodilator stress myocardial perfusion imaging. No evidence for scar or ischemia. 3. Post-pharmacologic stress LV function was normal. LVEF > 70%. --------- --- History: Chest Pain/ discomfort without exertion. Hypertension treated. Tobacco use current. Seizure disorder. Medications: Aspirin. Atorvastatin (Lipitor). Enoxaparin (Lovenox). Lisinopril (Zestril). Allergies: Bee venom, Lidocaine, PCN, Sulfa allergy. Dyslipidemia. Family history of cardiovascular disease. Patient is NPO per policy. No caffeine per policy. Hemoglobin, potassium and/or troponin x2 are within policy guidelines. --------- --- Study data: Bra or chest circumference is 36 in. The patient's lungs are clear to auscultation. There was no heart murmur auscultated by RN. Heart auscultation by RN revealed a regular rate and rhythm. Pre pain assessment is 2 out of 10. Pre pain location is nagging pressure under left breast which has been constant since 12 AM. Post pain assessment is 2 out of 10. Post pain location is nagging pressure under left breast. Patient status: Inpatient. Gated SPECT; rest/stress. One-day Sestamibi. Consent: The procedure was reviewed with the patient and the patient voices understanding. Study completion: The patient tolerated the procedure well and was discharged from the lab. There were no complications. Administered medications: Regadenoson, 0.4mg, bolus, IV, during the study. Discharge: Discharge instruction given. The patient was transferred to the telemetry [facility]. --------- --- Procedure data: Initial setup. The patient was brought to the laboratory. A baseline ECG was recorded. Surface ECG leads and blood pressure measurements were monitored. IV access verified 20AC RAC. IV patent, site benign. Regadenoson stress test. Stress testing was performed, with regadenoson by intravenous bolus at one minute into the protocol, for a total dose of 0.4mgover 10.00 sec, followed by a 5 ml saline flush. Exercise for 4 minutes completed by treadmill at 1mph 0% grade. The infusion was terminated due to end of protocol. A pharmacologic approach was used because the patient was physically unable to exercise. --------- --- Baseline ECG: Normal sinus rhythm. No ST segment changes. Stress protocol: + +---+--- ---------+ + --------- --+ !Stage !HR !BP (mmHg) !Symptoms !Comments ! + +---+--- ---------+ + --------- --+ !Rest !73 !144/88 (107)!2 out of 10 chest !Pulse ox 95% Room Air.! ! ! ! !discomfort ! ! + +---+--- ---------+ + --------- --+ !Peak stress !110!156/88 (111)!2 out of 10 chest ! --! ! ! ! !discomfort ! ! + +---+--- ---------+ + --------- --+ !Recovery !99 !150/86 (107)!2 out of 10 chest ! --! ! ! ! !discomfort ! ! + +---+--- ---------+ + --------- --+ !Late recovery!93 !140/86 (104)!2 out of 10 chest ! --! ! ! ! !discomfort ! ! + +---+--- ---------+ + --------- --+ Stress results: Peak heart rate during stress was 110 bpm. (77% of maximal predicted heart rate). The maximal predicted heart rate was 143 bpm.The target heart rate was not achieved. The heart rate response to stress is normal. There is a normal resting blood pressure with an appropriate response to stress. The rate-pressure product for the peak heart rate and blood pressure was 04833 mm Hg/min. 2 out of 10 stress-induced chest pain which persisted following conclusion of the test. Stress ECG: There was no ischemic ST depression. There are no stress arrhythmias or conduction abnormalities. Isotope administration: + +------ + + !Stage !Rest !Stress ! + +------ + + !Agent !Tc[99m]-sestamibi!Tc[ 99m]-sestamibi ! + +------ + + !Dose !7.6 mCi !34.1 mCi ! + +------ + + !Date !08/06/2018 !08/06/2018 ! + +------ + + !Injection time!07:25 AM !08:40 AM ! + +------ + + !Route !IV !IV ! + +------ + + !Injected by !Diana GARCIAMT !Diana GARCIAMT ! + +------ + + !Injection at ! !Pea k pharmacologic stress! + +------ + + Image properties: Imaging information: The study was gated. The image quality was excellent. Myocardial perfusion imaging: The TID ratio is 1.23. Rest: Left ventricular myocardial perfusion is normal in all segments. Perfusion score: 0. Stress: Left ventricular myocardial perfusion is normal in all segments. Perfusion score: 0. Gated SPECT: The left ventricular end-diastolic volume is 61 ml. The left ventricular end-systolic volume is 16 ml. The calculated left ventricular ejection fraction during stress is74 %. LV global systolic function is normal. No LV regional wall motion abnormalities. Electronically signed by Blayne Lo MD 08/06/2018 13:38 Final Dictated: 08/06/2018 1:39 pm Dictating Physician: MD LO KEVIN H Signed Date and Time: 08/06/2018 1:38 pm Signed by: MD LO KEVIN H Normal [facility] Basic Metabolic Panelon 07-15 Calcium mass conc 9.8 mg/dL Normal 8.4-10.4 [facility] Comment on above: Performed By: #### B NP3, BMP3, TROPN, HEMOG #### [facility] [address] [place] [address] Glucose mass conc 87 mg/dL Normal 70-100 [facility] Comment on above: Performed By: #### B NP3, BMP3, TROPN, HEMOG #### [facility] [address] [place] [address] Urea nitrogen mass conc 13 mg/dL Normal 7-20 [facility] Comment on above: Performed By: #### B NP3, BMP3, TROPN, HEMOG #### [facility] [address] [place] [address] Anion gap molar conc 4 Normal [facility] Comment on above: Performed By: #### B NP3, BMP3, TROPN, HEMOG #### [facility] [address] [place] [address] CO2 molar conc 28 mmol/L Normal 22-30 [facility] Comment on above: Performed By: #### B NP3, BMP3, TROPN, HEMOG #### [facility] [address] [place] [address] Creatinine mass conc 0.67 mg/dL Normal 0.52-1.25 [facility] Comment on above: Performed By: #### B NP3, BMP3, TROPN, HEMOG #### [facility] [address] [place] [address] GFR/1.73 sq M predicted among blacks MDRD vol rate/area (S/P/Bld) mL/min/{1.73_m2} Normal >60 [facility] Comment on above: Performed By: #### B NP3, BMP3, TROPN, HEMOG #### [facility] [address] [place] [address] GFR/1.73 sq M predicted among non-blacks MDRD vol rate/area (S/P/Bld) mL/min/{1.73_m2} Normal >60 [facility] Comment on above: Result Comment: Sour ce- MDRD equation with creatinine calibration to IDMS(NKDEP) eGFR not recommended for drug dose adjustment Performed By: #### B NP3, BMP3, TROPN, HEMOG #### [facility] [address] [place] [address] Potassium molar conc 4.4 mmol/L Normal 3.5-5.1 [facility] Comment on above: Performed By: #### B NP3, BMP3, TROPN, HEMOG #### [facility] [address] [place] [address] Chloride molar conc 102 mmol/L Normal 98-107 [facility] Comment on above: Performed By: #### B NP3, BMP3, TROPN, HEMOG #### [facility] [address] [place] [address] Sodium molar conc 133 mmol/L Low 135-145 [facility] Comment on above: Result Comment: NOTE : New Sodium Reference Range effective 2018 @ 10:00 Performed By: #### B NP3, BMP3, TROPN, HEMOG #### [facility] [address] [place] [address] CR Chest Portableon 08-05-20 18 CR Chest Portable Patient Name: MADAY ALFARO Diagnostic Radiology Exam Date/Time 08/05/2018 13:12:00 EST Exam CR Chest Portable Ordering Physician LILLY STANLEY BETH A. Accession Number [id number] CPT4 Codes 55684 () Reason For Exam chest pain Report PORTABLE CHEST Clinical indication: chest pain Comparison: 05/17/2007. The cardiac silhouette is not enlarged. The aorta is tortuous with mild atherosclerotic calcification. Lungs are clear. No pleural effusions are noted. IMPRESSION: No acute radiographic abnormality Report Dictated on Final Dictating Physician: MD COHEN DIANE Signed Date and Time: 08/05/2018 1:34 pm Signed by: MD COHEN DIANE Transcribed Date and Time: 08/05/2018 1:35 Normal [facility] ED Provider Noteon 8 Protein mass conc -- Attestation signed by Veronique Mcnally MD at 08/05/2018 4:23 PM I independently examined and evaluated Maday Alfaro. In brief, this patietn is complainng of having had chest pain earlier in the week, but being pain free now. Focused exam revealed comfortable, well appearing female. NAD. Ekg: nsr @68 bpm. No acute ischemic changes, no significant conduction abnormalities. All diagnostic, treatment, and disposition decisions were made by myself in conjunction with the resident physician/advanced practice provider. For all further details of the patient's emergency department visit, please see the advanced practice provider's documentation. Comment: Please note this report has been produced using speech recognition software and may contain errors related to that system including errors in grammar, punctuation, and spelling, as well as words and phrases that may be inappropriate. If there are any questions or concerns please feel free to contact the dictating provider for clarification. [facility] : 1940 Date of Evaluation: 08/05/2018 ED PARTH Provider: DALTON Mari CNPare was supervised by Dr. mcnally who independently examined and evaluated the patient. Please see their attestation note for further details. Chief Complaint Chief Complaint Patient presents with ? Chest Pain MI'KMAQ Maday Alfaro is a 78 y.o. female whopresents to the emergency department Patient presents to the emergency department with complaints of left-sided chest pain underneath her LEFT breast that started on Monday and 8 out of 10 pain. She is describing this as a sharp sensation. She states she currently does not have pain at this time. Patient is accompanied by her son. ROS: Review of Systems Constitutional: Negative for chills and fever. HENT: Negative for congestion, ear pain and sore throat. Eyes: Negative for visual disturbance. Respiratory: Negative for cough, shortness of breath and wheezing. Cardiovascular: Positive for chest pain. Gastrointestinal: Negative for abdominal distention, abdominal pain and nausea. Genitourinary: Negative for dysuria, flank pain and frequency. Skin: Negative for color change and rash. Neurological: Negative for dizziness, weakness, numbness and headaches. All other systems reviewed and are negative. At least 10 systems reviewed and otherwise acutely negative except as in the MI'KMAQ. Past History Past Medical History: Diagnosis Date ? Hypertension ? Seizures (HCC) Past Surgical History: Procedure Laterality Date ? EYE SURGERY ? HYSTERECTOMY Social History Social History ? Marital status: Spouse name: N/A ? Number of children: N/A ? Years of education: N/A Social History Main Topics ? Smoking status: Current Every Day Smoker ? Smokeless tobacco: Never Used ? Alcohol use No ? Drug use: Unknown ? Sexual activity: Not Asked Other Topics Concern ? None Social History Narrative ? None Medications/Allergies Previous Medications ASPIRIN 325 MG TABLET Take 325 mg by mouth daily LISINOPRIL (PRINIVIL;ZESTRIL) 10 MG TABLET Take by mouth daily PHENYTOIN (DILANTIN) 100 MG ER CAPSULE Take 200 mg by mouth 2 times daily TEMAZEPAM (RESTORIL) 15 MG CAPSULE Take 15 mg by mouth nightly as needed for Sleep.. Allergies Allergen Reactions ? Lidocaine ? Penicillins ? Sulfa Antibiotics Physical Exam ED Triage Vitals [08/05/18 1137] BP Temp Temp Source Pulse Resp SpO2 Height Weight (!) 145/105 97.9 ?F (36.6 ?C) Oral 73 16 96 % 5' 6 (1.676 m) 185 lb (83.9 kg) Physical Exam Constitutional: She is oriented to person, place, and time. She appears well-developed and well-nourished. HENT: Head: Normocephalic and atraumatic. Eyes: Pupils are equal, round, and reactive to light. Neck: Normal range of motion. Neck supple. Cardiovascular: Normal rate, regular rhythm and normal heart sounds. Pulmonary/Chest: Effort normal. She has rales in the left lower field. Abdominal: Soft. Bowel sounds are normal. Musculoskeletal: Normal range of motion. Neurological: She is alert and oriented to person, place, and time. Skin: Skin is warm and dry. Psychiatric: She has a normal mood and affect. Vitals reviewed. Diagnostics Labs: Results for orders placed or performed during the hospital encounter of 08/05/18 Basic Metabolic Panel Result Value Ref Range Sodium 133 (L) 135 - 145 mmol/L Potassium 4.4 3.5 - 5.1 mmol/L Chloride 102 98 - 107 mmol/L CO2 28 22 - 30 mmol/L Anion Gap 4 NA Glucose 87 70 - 100 mg/dL BUN 13 7 - 20 mg/dL CREATININE 0.67 0.52 - 1.25 mg/dL eGFR >60.0 >60 mL/min EGFR IF NonAfrican Palestinian >60.0 >60 mL/min Calcium 9.8 8.4 - 10.4 mg/dL Hemogram (CBC) Result Value Ref Range WBC 5.1 3.6 - 10.7 10*3/uL RBC 4.20 3.80 - 5.20 10*6/uL Hemoglobin 14.3 11.7 - 16.0 g/dL Hematocrit 40.9 35.0 - 47.0 % MCV 97.2 79.0 - 98.0 fL MCH 34.0 26.0 - 34.0 pg MCHC 35.0 32.0 - 36.0 % RDW 13.1 11.5 - 14.5 % Platelets 206 140 - 440 10*3/uL MPV 8.5 7.4 - 10.4 fL Troponin x1 Result Value Ref Range Troponin I <0.012 0.000 - 0.034 ng/mL Brain Natriuretic Peptide Result Value Ref Range NT Pro-BNP 354 0 - 450 pg/mL Radiographs: Xr Chest Portable Result Date: 08/05/2018 Patient Name: MADAY ALFARO ---Diagnostic Radiology--- Exam Date/Time 08/05/2018 13:12:00 EST Exam CR Chest Portable Ordering Physician LILLY STANLEY BETH A. Accession Number [id number] CPT4 Codes 93037 () Reason For Exam chest pain Report PORTABLE CHEST Clinical indication: chest pain Comparison: 05/17/2007. The cardiac silhouette is not enlarged. The aorta is tortuous with mild atherosclerotic calcification. Lungs are clear. No pleural effusions are noted. IMPRESSION: No acute radiographic abnormality Report Dictated on --- Final --- Dictating Physician: MD COHEN DIANE Signed Date and Time: 08/05/2018 1:34 pm Signed by: MD COHEN DIANE Transcribed Date and Time: 08/05/2018 1:35 Procedures: EKG: All EKG's areinterpreted by the Emergency Department Physician in the absence of a preparator.?Please see their note for interpretation of EKG. ED Course and MDM Heart Score for chest pain patients History: Slightly Suspicious ECG: Normal Patient Age: > 65 years *Risk factors for Atherosclerotic disease: Cigarette smoking, Hypertension Risk Factors: 1 or 2 risk factors Troponin: < 1X normal limit Heart Score Total: 3 In brief, Maday Alfaro donny 78 y.o. female who presented to the emergency department Patient presented to the emergency department with chest pain intermittent underneath her LEFT breast that started on Monday. Patient states that it also radiated to her LEFT arm. She states that she has had some shortness of breath but not currently. Patient denies being on blood thinners. She states that she has had a TIA in the past. 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 Patient states she is a positive cigarette smoker negative for EtOH use and or illicit street drugs. Patient's lung sounds are clear throughout. She is accompanied by her son. She states she currently does not have any chest pain at this time. Patient's EKG showing a sinus rhythm with borderline LEFT axis deviation. This was interpreted by Dr. Ko please see her note. Patient's chest x-ray showing no acute radiographic abnormalities. No pleural effusions are evident. Patient's sodium 133 all other electrolytes within normal limits. CBC within normal limits. Patient's troponin within normal limits. Patient's BNP 354. She has no lower extremity edema. Her abdomen is softnondistended with no distention. Patient was admitted to [facility] doctor Lauryn's service with chest pain. Patient updated on plan of care. ED Medication Orders Start Ordered Status Ordering Provider 08/05/18 1251 08/05/18 1250 sodium chloride flush 0.9 % injection 3 mL EVERY 8 HOURS Acknowledged BELTRAN DARNELL 08/05/18 1251 08/05/18 1250 0.9 % sodium chloride bolus ONCE Last OCT action: Stopped - by SOPHIE DAWSON on 08/05/18 at 1329 BELTRAN DARNELL 08/05/18 1251 08/05/18 1250 aspirin chewable tablet 324 mg ONCE Last OCT action: Given - by SOPHIE DAWSON on 08/05/18 at 1256 BELTRAN DARNELL 08/05/18 1251 08/05/18 1250 nitroglycerin (NITRO-BID) 2 % ointment 0.5 inch ONCE Last OCT action: Given - by SOPHIE DAWSON on 08/05/18 at 1256 BELTRAN DARNELL Final Impression 1. Stable angina pectoris (HCC) DISPOSITION (Please note that portions of this note may have been completed with a voice recognition program. Efforts were made to edit the dictations but occasionally words aremis-transcribed.) Beltran Darnell, DALTON - [employer] Beltran Darnell APRN - [employer] 08/05/18 1507 Normal [facility] Hemogramon 08-05-2018 Erythrocyte distribution width Ratio (RBC) 13.1 % Normal 11.5-14.5 [facility] Comment on above: Performed By: #### B NP3, BMP3, TROPN, HEMOG #### [facility] [address] [place] [address] Hematocrit Volume Fraction (Bld) 40.9 % Normal 35.0-47.0 [facility] Comment on above: Performed By: #### B NP3, BMP3, TROPN, HEMOG #### [facility] [address] [place] [address] Hemoglobin mass conc (Bld) 14.3 g/dL Normal 11.7-16.0 [facility] Comment on above: Performed By: #### B NP3, BMP3, TROPN, HEMOG #### [facility] [address] [place] [address] MCH Entitic mass (RBC) 34.0 pg Normal 26.0-34.0 [facility] Comment on above: Performed By: #### B NP3, BMP3, TROPN, HEMOG #### [facility] [address] [place] [address] MCHC mass conc (RBC) 35.0 % Normal 32.0-36.0 [facility] Comment on above: Performed By: #### B NP3, BMP3, TROPN, HEMOG #### [facility] [address] [place] [address] MCV Entitic volume (RBC) 97.2 fL Normal 79.0-98.0 [facility] Comment on above: Performed By: #### B NP3, BMP3, TROPN, HEMOG #### [facility] [address] [place] [address] Platelet mean volume Entitic volume (Bld) 8.5 fL Normal 7.4-10.4 [facility] Comment on above: Performed By: #### B NP3, BMP3, TROPN, HEMOG #### [facility] [address] [place] [address] Platelets #/vol (Bld) 206 10*3/uL Normal 140-440 [facility] Comment on above: Performed By: #### B NP3, BMP3, TROPN, HEMOG #### [facility] [address] [place] [address] RBC #/vol (Bld) 4.20 10*6/uL Normal 3.80-5.20 [facility] Comment on above: Performed By: #### B NP3, BMP3, TROPN, HEMOG #### [facility] [address] [place] [address] WBC #/vol (Bld) 5.1 10*3/uL Normal 3.6-10.7 [facility] Comment on above: Performed By: #### B NP3, BMP3, TROPN, HEMOG #### [place] [address] [place] [address] NT pro BNPon 08-05-2018 Natriuretic peptide B mass conc (Bld) 354 pg/mL Normal 0-450 [facility] Comment on above: Performed By: #### B NP3, BMP3, TROPN, HEMOG #### [facility] [address] [place] [address] Troponin Ion 08-05-2018 Troponin I.cardiac mass conc ng/mL Normal 0.000-0.034 [facility] Comment on above: Result Comment: 0.04 6 - 0.400 = Indeterminate > 0.400 = Consider Myocardial Injury Performed By: #### T ROPN #### [place] [address] [place] [address] Troponin I.cardiac mass conc ng/mL Normal 0.000-0.034 [facility] Comment on above: Result Comment: 0.04 6 - 0.400 = Indeterminate > 0.400 = Consider Myocardial Injury Performed By: #### B NP3, BMP3, TROPN, HEMOG #### [facility] [address] [place] [address] Vital Signs Date Time Vital Sign Value Performing Clinician Roberto owens 2025 07:46-0400 Diastolic blood pressure 90 mm[Hg] Blayne Venczel DO Work Phone: [employer] 2025 07:46-0400 Heart rate 75 /min Blayne Shahel DO Work Phone: [employer] 2025 07:46-0400 Systolic blood pressure 131 mm[Hg] Blayne Ellisczel DO Work Phone: [employer] 2025 07:35-0400 Body temperature 98.29 [degF] Blayne Shahel DO Work Phone: [employer] 2025 07:35-0400 SaO2% (BldA) [Mass fraction] 98 % Blayne Castaneda DO Work Phone: [employer] 2025 04:01-0400 Body mass index (BMI) [Ratio] 21.49 kg/m2 Blayne Castaneda DO Work Phone: [employer] 2025 04:01-0400 Body weight 60.4 kg Blayne Castaneda DO Work Phone: [employer] 05-15-2025 19:37-0400 Respiratory rate 16 /min Blayne Castaneda DO Work Phone: [employer] 05-13-2025 11:21-0400 Body height 167.6 cm Blayne Castaneda DO Work Phone: [employer] 04-30-2025 10:01-0400 Body temperature 98.4 [degF] Elliott Navarro MD Work Phone: [employer] 04-30-2025 10:01-0400 Diastolic blood pressure 68 mm[Hg] Elliott Navarro MD Work Phone: [employer] 04-30-2025 10:01-0400 Heart rate 72 /min Elliott Navarro MD Work Phone: [employer] 04-30-2025 10:01-0400 Respiratory rate 18 /min Elliott Navarro MD Work Phone: [employer] 04-30-2025 10:01-0400 SaO2% (BldA) [Mass fraction] 95 % Elliott Navarro MD Work Phone: [facility] 04-30-2025 10:01-0400 Systolic blood pressure 110 mm[Hg] Elliott Navarro MD Work Phone: [facility] 04-22-2025 13:37-0400 Body height 167.6 cm Elliott Navarro MD Work Phone: [facility] 04-22-2025 13:37-0400 Body mass index (BMI) [Ratio] 21.95 kg/m2 Elliott Navarro MD Work Phone: [employer] [place] 04-22-2025 13:37-0400 Body weight 61.69 kg Elliott Navarro MD Work Phone: [facility] [employer] [place] 08-29-2024 10:12-0500 Body height 167.6 cm Chris Jesse PA-C Work Phone: [facility] [employer] [place] 08-29-2024 10:12-0500 Body mass index (BMI) [Ratio] 21.95 kg/m2 Chris Jesse PA-C Work Phone: [employer] 08-29-2024 10:12-0500 Body weight 61.69 kg Chris Jesse PA-C Work Phone: [employer] 07-18-2024 10:45-0500 Body height 167.6 cm Brendon Sommers MD Work Phone: [employer] [place] 07-18-2024 10:45-0500 Body mass index (BMI) [Ratio] 21.95 kg/m2 Brendon Sommers MD Work Phone: [employer] 07-18-2024 10:45-0500 Body weight 61.69 kg Brendon Sommers MD Work Phone: [facility] [employer] [place] 07-15-2024 16:26-0500 Diastolic blood pressure 71 mm[Hg] Nguyễn aCal DO Work Phone: [facility] [employer] [place] 07-15-2024 16:26-0500 Heart rate 63 /min Mejgon Afua DO Work Phone: [facility] 07-15-2024 16:26-0500 Respiratory rate 17 /min Nguyễn Caal DO Work Phone: [facility] 07-15-2024 16:26-0500 SaO2% (BldA) [Mass fraction] 98 % Nguyễn Fairchildya DO Work Phone: [facility] 07-15-2024 16:26-0500 Systolic blood pressure 120 mm[Hg] Nguyễn Fairchildya DO Work Phone: [facility] 07-15-2024 15:44-0500 Body height 167.6 cm Nguyễn Fairchildya DO Work Phone: [facility] 07-15-2024 15:44-0500 Body mass index (BMI) [Ratio] 21.95 kg/m2 Nguyễn Fairchildya DO Work Phone: [facility] 07-15-2024 15:44-0500 Body weight 61.69 kg Nguyễn Fairchildya DO Work Phone: [facility] 07-15-2024 14:13-0500 Body temperature 97.5 [degF] Nguyễn Fairchildya DO Work Phone: [facility] 11-22-2023 12:57-0400 Body height 167.6 cm Griselda Tulodzieski-Ahlstrom DPM Work Phone: [facility] 11-22-2023 12:57-0400 Body mass index (BMI) [Ratio] 23.57 kg/m2 Griselda Tulodzieski-Ahlstrom DPM Work Phone: [facility] 11-22-2023 12:57-0400 Body weight 66.22 kg Griselda Tulodzieski-Ahlstrom DPM Work Phone: [facility] 10-11-2023 11:43-0500 Body height 167.6 cm Griselda Tulodzieski-Ahlstrom DPM Work Phone: [facility] 10-11-2023 11:43-0500 Body mass index (BMI) [Ratio] 23.57 kg/m2 Griselda GarciasterlingCathleenzohrehveto DPM Work Phone: [facility] 10-11-2023 11:43-0500 Body weight 66.22 kg Griseldagonzález GarciamalvinprettyyareliRuchizohrehveto DPM Work Phone: [facility] 10-01-2023 11:23-0500 Body temperature 97.9 [degF] Destiny Rangelobedgeorgia Work Phone: [facility] 10-01-2023 11:23-0500 Body weight 66.22 kg Destiny Rangelfilgeorgia Work Phone: [facility] 10-01-2023 11:23-0500 Diastolic blood pressure 79 mm[Hg] Destiny Pamfilie Work Phone: [facility] 10-01-2023 11:23-0500 Heart rate 73 /min Destiny Rangelfilgeorgia Work Phone: [facility] 10-01-2023 11:23-0500 Respiratory rate 14 /min Destiny Rangelfilie Work Phone: [facility] 10-01-2023 11:23-0500 SaO2% (BldA) [Mass fraction] 97 % Destiny Pamfilgeorgia Work Phone: [facility] 10-01-2023 11:23-0500 Systolic blood pressure 131 mm[Hg] Destiny Pamfilgeorgia Work Phone: [facility] Encounters Encounter Date Encounter Type Care Provider Facility Start: 05-12-2025 End: 05-13-2025 Telephone encounter Krupa Abdi CNP Work Phone: [facility] [place] Start: 05-12-2025 End: 05-12-2025 Evaluation and management of inpatient CAMILO PUGA [facility] Start: 05-10-2025 End: 2025 Evaluation and management of inpatient [facility] Comment on above: Stroke-like symptoms (Primary Dx); Altered mental status, unspecified altered mental status type; Declining functional status; Edema of left forearm; Closed nondisplaced fracture of surgical neck of right humerus, unspecified fracture morphology, initial encounter Start: 05-09-2025 End: 05-09-2025 Orders Only Travis Meng MD Work Phone: [facility] - [place] Comment on above: Closed displaced int ertrochanteric fracture of left femur with routine healing, subsequent encounter (Primary Dx) Paroxysmal atrial fi brillation (HCC) Start: 05-05-2025 ambulatory [facility] Facility:[facility] Start: 05-02-2025 ambulatory [facility] Facility:[facility] Start: 05-01-2025 End: 05-01-2025 Telephone encounter Krupa Cid APRN - [employer] Work Phone: [facility] [place] Start: 04-25-2025 End: 04-25-2025 Orders Only Krupa Cid APRN - [employer] Work Phone: [facility] [place] Comment on above: Paroxysmal atrial fi brillation (HCC) (Primary Dx) Start: 04-21-2025 End: 04-30-2025 Evaluation and management of inpatient Elliott Navarro MD Work Phone: [facility] PCU 3W Comment on above: Closed intertrochant travis fracture of hip, left, initial encounter (HCC) (Primary Dx); Closed displaced intertrochanteric fracture of left femur, initial encounter (HCC); Osteoporosis, unspecified osteoporosis type, unspecified pathological fracture presence Start: 10-17-2024 End: 10-17-2024 Documentation procedure Jennifer Esparza PT [facility] Comment on above: PT Discharge Start: 09-11-2024 End: 09-11-2024 ambulatory BRENDON SOMMERS [facility] Start: 09-11-2024 End: 09-11-2024 Follow-up encounter Brendon Sommers MD Work Phone: [facility] at [place] [place] Comment on above: Closed nondisplaced fracture of surgical neck of right humerus, unspecified fracture morphology, initial encounter (Primary Dx) Start: 08-29-2024 End: 08-29-2024 Postop follow up visit related to original px Chris Molina [place] Work Phone: [facility] Orthopedics and [facility] [place] Comment on above: Closed fracture of p roximal end of right humerus with routine healing, unspecified fracture morphology, subsequent encounter (Primary Dx) Start: 08-29-2024 End: 08-29-2024 ambulatory CHRIS MOLINA [facility] Start: 08-27-2024 End: 08-27-2024 Orders Only Chris Molina [place] Work Phone: [facility] [place] [facility] Comment on above: Closed nondisplaced fracture of surgical neck of right humerus, unspecified fracture morphology, initial encounter (Primary Dx) Start: 08-20-2024 End: 08-20-2024 Follow-up encounter Brendon Sommers MD Work Phone: [facility] Comment on above: Closed nondisplaced fracture of surgical neck of right humerus, unspecified fracture morphology, initial encounter (Primary Dx) Start: 08-20-2024 End: 08-20-2024 ambulatory [facility] Start: 08-09-2024 End: 08-09-2024 Follow-up encounter Brendon Sommers MD Work Phone: [facility] Comment on above: Closed nondisplaced fracture of surgical neck of right humerus, unspecified fracture morphology, initial encounter (Primary Dx) Start: 08-09-2024 End: 08-09-2024 ambulatory [facility] Start: 08-02-2024 End: 08-02-2024 Follow-up encounter Brendon Sommers MD Work Phone: [facility] Comment on above: Closed nondisplaced fracture of surgical neck of right humerus, unspecified fracture morphology, initial encounter (Primary Dx) Start: 08-02-2024 End: 08-02-2024 ambulatory BRENDON [facility] Start: 07-24-2024 End: 07-24-2024 ambulatory BRENDON RODRIGUEZCHI [facility] Start: 07-18-2024 End: 07-18-2024 Office outpatient new 30 minutes Brendon Sommers MD Work Phone: [facility] [place] Comment on above: Closed nondisplaced fracture of surgical neck of right humerus, unspecified fracture morphology, initial encounter Start: 07-18-2024 End: 07-18-2024 ambulatory CHRISTIAN HARRISON [facility] Start: 07-15-2024 End: 07-15-2024 Emergency department patient visit Nguyễn Fairchildya Work Phone: [facility] ED Comment on above: Closed nondisplaced fracture of surgical neck of right humerus, unspecified fracture morphology, initial encounter (Primary Dx) Start: 01-30-2024 End: 01-30-2024 Subsequent hospital visit by physician Griselda GONZALEZM Work Phone: [facility] Comment on above: Menopause Start: 01-25-2024 Orders Only Griselda GONZALEZM Work Phone: [facility] MA[facility] OR Comment on above: Menopause (Primary D x) Start: 11-22-2023 End: 11-22-2023 Postop follow up visit related to original px Griselda GONZALEZM Work Phone: [facility] Medicine Comment on above: Closed nondisplaced fracture of metatarsal bone of right foot, unspecified metatarsal, initial encounter (Primary Dx); Closed displaced fracture of metatarsal bone of right foot, unspecified metatarsal, initial encounter; Lisfranc's sprain, right, subsequent encounter; Nondisplaced fracture of second metatarsal bone, right foot, initial encounter for closed fracture; Closed nondisplaced fracture of fourth metatarsal bone of right foot, initial encounter; Closed nondisplaced fracture of third metatarsal bone of right foot, initial encounter; Closed fracture of base of fifth metatarsal bone with routine healing, right Start: 11-04-2023 End: 11-04-2023 Subsequent hospital visit by physician Griselda harris DPM Work Phone: [facility] CT Imaging Comment on above: Closed displaced fra cture of metatarsal bone of right foot, unspecified metatarsal, initial encounter; Lisfranc's sprain, right, subsequent encounter Start: 10-11-2023 End: 10-11-2023 Office outpatient new 30 minutes Griselda harris DPM Work Phone: [facility]ics [facility] Sports Medicine Comment on above: Nondisplaced fractur e of second metatarsal bone, right foot, initial encounter for closed fracture (Primary Dx); Closed nondisplaced fracture of metatarsal bone of right foot, unspecified metatarsal, initial encounter; Closed displaced fracture of metatarsal bone of right foot, unspecified metatarsal, initial encounter; Closed displaced fracture of metatarsal bone of right foot, unspecified metatarsal, initial encounter; Lisfranc's sprain, right, subsequent encounter; Closed nondisplaced fracture of third metatarsal bone of right foot, initial encounter; Closed nondisplaced fracture of fourth metatarsal bone of right foot, initial encounter; Closed fracture of base of fifth metatarsal bone with routine healing, right Start: 10-11-2023 End: 10-11-2023 Subsequent hospital visit by physician Griselda harris DPM Work Phone: [facility] X-ray Imaging Comment on above: Closed displaced fra cture of metatarsal bone of right foot, unspecified metatarsal, initial encounter Start: 10-01-2023 End: 10-01-2023 Emergency department patient visit Destiny Jean Baptiste Work Phone: [facility] ED Comment on above: Closed displaced fra cture of metatarsal bone of right foot, unspecified metatarsal, initial encounter (Primary Dx); Fall, initial encounter Procedures Date Procedure Procedure Detail Performing Clinician Start: 2025 End: 2025 Comprehensive metabolic panel Nemo Bunn MD Work Phone: Start: 2025 Drug screen quantita tive phenytoin total Heron Glover MD Work Phone: Start: 05-15-2025 Dup-scan xtr veins unilateral/limited study Heron Glover MD Work Phone: Start: 05-15-2025 Comprehensive metabolic panel Nemo Bunn MD Work Phone: Start: 05-15-2025 Drug screen quantita tive phenytoin total Heron Glover MD Work Phone: Start: 05-14-2025 Comprehensive metabolic panel Nemo Bunn MD Work Phone: Start: 05-14-2025 Drug screen quantita tive phenytoin total Heron Glover MD Work Phone: Start: 05-13-2025 Radiologic examinati on femur minimum 2 views Sivan Romero PA-C Work Phone: Start: 05-13-2025 Drug screen quantita tive phenytoin total Heron Glover MD Work Phone: Start: 05-13-2025 Comprehensive metabolic panel Nemo Bunn MD Work Phone: Start: 05-12-2025 Comprehensive metabolic panel Nemo Bunn MD Work Phone: Start: 05-12-2025 Electroencephalogram Se denita Puga MD Work Phone: Start: 05-12-2025 Drug screen quantita tive phenytoin total Nemo Bunn MD Work Phone: Start: 05-11-2025 Ct lower extremity w /o contrast material Nemo Bunn MD Work Phone: Start: 05-11-2025 Drug screen quantita tive phenytoin total Camilo Puga MD Work Phone: Start: 05-11-2025 Comprehensive metabolic panel Nemo Bunn MD Work Phone: Start: 05-11-2025 Lipid panel Nemo Bunn MD Work Phone: Start: 05-11-2025 Lipid 1996 panel - S josefina or Plasma Krupa Cid DALTON Abdi [employer] Work Phone: Start: 05-10-2025 Ecg routine ecg w/le ast 12 lds trcg only w/o i&r Nemo Bunn MD Work Phone: Start: 05-10-2025 End: 05-10-2025 Ct cervical spine w/o contrast material Nemo Bunn MD Work Phone: Start: 05-10-2025 Drug screen quantita tive phenytoin total Nemo Bunn MD Work Phone: Start: 05-10-2025 Urnls dip stick/tabl et reagent auto microscopy Raheel Painter MD Work Phone: Start: 05-10-2025 Radex hip unilateral with pelvis 2-3 views Nemo Bunn MD Work Phone: Start: 05-10-2025 Assay of troponin quantitative Raheel Painter MD Work Phone: Start: 05-10-2025 Ct head/brain w/o co ntrast material Raheel Painter MD Work Phone: Start: 05-10-2025 Radiologic exam ches t single view Raheel Painter MD Work Phone: Start: 05-10-2025 Radex hand minimum 3 views Raheel Painter MD Work Phone: Start: 05-10-2025 End: 05-10-2025 Comprehensive metabolic panel Raheel Painter MD Work Phone: Start: 05-10-2025 Ecg routine ecg w/le ast 12 lds trcg only w/o i&r Raheel Painter MD Work Phone: Start: 04-29-2025 Basic metabolic pane l calcium total Lisa Wayne MD Work Phone: Start: 04-28-2025 Basic metabolic pane l calcium total Lisa Wayne MD Work Phone: Start: 04-27-2025 Basic metabolic pane l calcium total Lisa Wayne MD Work Phone: Start: 04-26-2025 Basic metabolic pane l calcium total Lisa Wayne MD Work Phone: Start: 04-25-2025 Basic metabolic pane l calcium total Lisa Wayne MD Work Phone: Start: 04-25-2025 Compatibility each u nit electronic Jono Juan Barillas MD Work Phone: Start: 04-24-2025 Assay of thyroid sti mulating hormone tsh Sebas Oh CNA [employer] Work Phone: Start: 04-24-2025 Drug screen quantita tive phenytoin free Sebas Oh [employer] Work Phone: Start: 04-24-2025 Basic metabolic pane l calcium total Lisa Wayne MD Work Phone: Start: 04-24-2025 Calcium ionized Migdalia cole MD Work Phone: Start: 04-23-2025 End: 04-23-2025 Basic metabolic panel calcium total Migdalia Joseph MD Work Phone: Start: 04-23-2025 Blood count complete automated Lisa Wayne MD Work Phone: Start: 04-23-2025 Ecg routine ecg w/le ast 12 lds trcg only w/o i&r Solo Ha MD Work Phone: Start: 04-23-2025 Blood count complete lucila Wayne MD Work Phone: Start: 04-23-2025 Blood count complete automated Lisa Wayne MD Work Phone: Start: 04-23-2025 Basic metabolic pane l calcium total Lisa Wayne MD Work Phone: Start: 04-22-2025 Compatibility each u nit electronic Lisa Wayne MD Work Phone: Start: 04-22-2025 End: 04-22-2025 TRANSFUSE RED BLOOD CELLS Migdalia Monte Work Phone: Start: 04-22-2025 Blood count complete automated Lisa Wayne MD Work Phone: Start: 04-22-2025 Blood count hematocrit Jono Barillas MD Work Phone: Start: 04-22-2025 Echo tthrc r-t 2d w/ wom-mode compl spec&colr d Lisa Wayne MD Work Phone: Start: 04-22-2025 End: 04-22-2025 TRANSFUSE RED BLOOD CELLS Jono rowan MD Work Phone: Start: 04-22-2025 Blood count complete automated Lisa Wayne MD Work Phone: Start: 04-22-2025 Blood count complete automated Lisa Wayne MD Work Phone: Start: 04-22-2025 Assay of troponin quantitative Migdalia Joseph MD Work Phone: Start: 04-22-2025 Assay of lactate Mariposa a Denise Wayne MD Work Phone: Start: 04-22-2025 Basic metabolic pane l calcium total Lisa Wayne MD Work Phone: Start: 04-21-2025 Assay of troponin quantitative Janneth Centeno MD Work Phone: Start: 04-21-2025 Assay of troponin quantitative Janneth Centeno MD Work Phone: Start: 04-21-2025 End: 04-21-2025 Basic metabolic panel calcium total Lisa Wayne MD Work Phone: Start: 04-21-2025 Ecg routine ecg w/le ast 12 lds trcg only w/o i&r Janneth Centeno MD Work Phone: Start: 04-21-2025 Blood count hematocrit Orlando Valverde MD Work Phone: Start: 04-21-2025 Radiologic examinati on femur minimum 2 views Chris PIERCE-C Work Phone: Start: 04-21-2025 FL GUIDANCE OR USE O NLY - NON-RESULTABLE Travis Meng MD Work Phone: Start: 04-21-2025 End: 04-21-2025 Tx inter/pr/subtrchntric fem fx imed impltscrew Travis Meng MD Work Phone: Start: 04-21-2025 Prothrombin time Janneth vasquez MD Work Phone: Start: 04-21-2025 Radiologic exam ches t single view Luis Camacho MD Work Phone: Start: 04-21-2025 Ecg routine ecg w/le ast 12 lds trcg only w/o i&r Ailynalina Tatum [employer] Work Phone: Start: 04-21-2025 End: 04-21-2025 Radex hip unilateral with pelvis 2-3 views AilynYuenimei Deepti [employer] Work Phone: Start: 04-21-2025 Antibody screen JANNETH PATRICIO Comment on above: Performed By: #### L [id number] ####Dispatch Lead: RIKY PICKARD ([phone])[facility] ([facility])[address] [place] [address] Start: 04-21-2025 ABO and Rh group [Ty pe] in Blood by Confirmatory method Brant Tatum [employer] Work Phone: Start: 04-21-2025 Blood typing serologic abo AilynApozy Work Phone: Start: 04-21-2025 Comprehensive metabolic panel Brant Preciado DO Work Phone: Start: 08-29-2024 Follow-up visit JANNETH AUGUST ETZ Start: 07-18-2024 Follow-up visit JANNETH AUGUST ETZ Start: 07-15-2024 Radex shoulder compl ete minimum 2 views Sterlingrenettacresencio Bri Caal DO Work Phone: Start: 01-30-2024 Dxa bone density farhat dy 1/> sites axial skel Griselda Brown DPM Work Phone: Start: 10-11-2023 Radex foot complete minimum 3 views Griselda Brown DPM Work Phone: Start: 10-01-2023 Radex foot complete minimum 3 views Jaguar Christine [employer] Work Phone: Plan of Treatment Date Care Activity Detail Author Start: 11-06-2034 DTaP/Tdap/Td Vaccine s (2 - Td or Tdap) DTaP/Tdap/Td Vaccines (2 - Td or Tdap) [facility] Start: 05-11-2030 Lipid panel Lipid Panel [facility] Start: 01-29-2026 Screening for osteoporosis Bone Density Scan [facility] Start: 10-23-2025 End: 10-23-2025 Patient encounter procedure 10/23/2025 3:00 PM EDT Office Visit [facility] Osteoporosis [address] [place] [address] Yaneli Cruz, CNA [employer] [address] [place] [address] [facility] Osteoporosis [facility] Start: 05-13-2025 End: 05-09-2026 XR Femur - left 2 Views XR femur left 2+ views Imaging Routine Closed displaced intertrochanteric fracture of left femur with routine healing, subsequent encounter Expected: 05/13/2025, Expires: 05/09/2026 [facility] Work Phone: Comment on above: Expected: 05/13/2025 , Expires: 05/09/2026 Start: 05-13-2025 End: 05-13-2025 Patient encounter procedure [facility] [place] Start: 05-09-2025 End: 05-09-2025 Patient encounter procedure 05/09/2025 2:30 PM EDT Appointment [facility] [address] [place] [address] [facility] Start: 04-25-2025 End: 04-25-2027 Cardiac event monitor (30 days) Cardiac event monitor (30 days) [facility] Routine Paroxysmal atrial fibrillation (HCC) Expected: 04/25/2025, Expires: 04/25/2027 [facility] Work Phone: Comment on above: Expected: 04/25/2025 , Expires: 04/25/2027 Start: 04-14-2025 COVID-19 Vaccine ( season) COVID-19 Vaccine () [facility] Start: 04-14-2025 Influenza vaccination Influenza Vacc ine (#1) [facility] Start: 10-10-2024 End: 10-10-2024 Patient encounter procedure 10/10/2024 11:00 AM EST Office Visit [facility] [address] [place] [phone] Chris Molina PA-C [address] [place], [place] [id number] [facility] Orthopedics [facility] Sports Medicine - [facility] Start: 10-09-2024 End: 10-09-2024 Follow-up encounter 10/09/2024 10:30 AM EST Follow-Up [facility] Therapy at [facility] [address] [place] [id number] Brendon Sommers MD [address] [place], [place] [address] Jennifer Esparza, PT [facility] Therapy at [facility] Start: 10-01-2024 End: 10-01-2024 Follow-up encounter 10/01/2024 10:30 AM EST Follow-Up [facility] Therapy at [address] [place] [address] [place] [address] Brendon Sommers MD [address] [place] [address] Jennifer Ruffin PTA [facility] at [facility] Start: 09-25-2024 End: 09-25-2024 Follow-up encounter 09/25/2024 1:30 PM EST Follow-Up [facility] Therapy at [address] [place] [address] Brendon Sommers MD [address] [place] [address] Kanwal Beard PTA [facility] at [facility] Start: 09-18-2024 End: 09-18-2024 Follow-up encounter 09/18/2024 10:30 AM EST Follow-Up [facility] Therapy at [address] [place] [address] Brendon Sommers MD [address] [place] [address] Jennifer Esparza, PT [facility] at [facility] Start: 08-29-2024 End: 08-27-2025 XR Shoulder - right 2 Views XR shoulder 2+ views right Imaging Routine Closed nondisplaced fracture of surgical neck of right humerus, unspecified fracture morphology, initial encounter Expected: 08/29/2024, Expires: 08/27/2025 [facility] Work Phone: Comment on above: Expected: 08/29/2024 , Expires: 08/27/2025 Start: 08-29-2024 End: 08-29-2024 Patient encounter procedure 08/29/2024 10:30 AM EST Office Visit [facility] Orthopedics and Sports Medicine - [facility] [address] [facility] [place] [address] Chris Molina PA-C [address] [facility] [place] [address] [facility] Orthopedics and Sports Medicine - [facility] Start: 08-27-2024 End: 08-27-2024 Follow-up encounter 08/27/2024 11:15 AM EST Follow-Up [facility] [place] [address] [facility] [place] [address] [place] [address] Brendon Sommers MD [address] [facility] [address] [place] [address] Jennifer Esparza, PT [facility] Start: 08-20-2024 End: 08-20-2024 Follow-up encounter 08/20/2024 11:00 AM EST Follow-Up [facility] [place] [address] [facility] [place] [address] [place] [address] Brendon Sommers MD [address] [facility] [address] [place] [address] Jennifer Ruffin, DENTAL ASSISTANT INSTRUCTOR [facility] [place] Start: 08-14-2024 Medicare Advantage Annual Wellness Visit Medicare Advantage Annual Wellness Visit [facility] Start: 08-09-2024 End: 08-09-2024 Follow-up encounter 08/09/2024 2:00 PM EST Follow-Up [facility] [place] [address] [facility] [place] [address] [place] [address] Jennifer Rfufin, DENTAL ASSISTANT INSTRUCTOR [facility] Start: 04-14-2024 COVID-19 Vaccine ( season) COVID-19 Vaccine () [facility] Start: 04-14-2024 Influenza vaccination [facility] Start: 01-30-2024 End: 01-30-2024 Patient encounter procedure 01/30/2024 11:15 AM EDT Appointment [facility] [address] [place] [id number] Griselda Brown, MOUSTAPHA [address] [place] [address] [facility] Start: 01-25-2024 End: 01-24-2025 DXA Skeletal system.axial Views for bone density DEXA bone density axial skeleton Imaging Routine Menopause Expected: 01/25/2024, Expires: 01/24/2025 [employer] Work Phone: Comment on above: Expected: 01/25/2024 , Expires: 01/24/2025 Start: 11-22-2023 End: 11-21-2024 DXA Skeletal system.axial Views for bone density DEXA bone density axial skeleton Imaging Routine Closed nondisplaced fracture of metatarsal bone of right foot, unspecified metatarsal, initial encounter Expected: 11/22/2023, Expires: 11/21/2024 [employer] Work Phone: Comment on above: Expected: 11/22/2023 , Expires: 11/21/2024 Start: 10-11-2023 End: 10-11-2024 CT Foot - right WO contrast CT foot right wo IV contrast Imaging Routine Closed displaced fracture of metatarsal bone of right foot, unspecified metatarsal, initial encounter Lisfranc's sprain, right, subsequent encounter Expected: 10/11/2023, Expires: 10/11/2024 [employer] Work Phone: Comment on above: Expected: 10/11/2023 , Expires: 10/11/2024 Start: 08-14-2023 Medicare Advantage Annual Wellness Visit Medicare Advantage Annual Wellness Visit [facility] Start: 04-14-2023 COVID-19 Vaccine ( season) COVID-19 Vaccine ( season) [facility] Start: 04-14-2023 Influenza vaccination Influenza Vacc ine (#1) [facility] Start: 2016 RSV Immunization for Adults (1 - 1-dose 75+ series) RSV Immunization for Adults (1 - 1-dose 75+ series) [facility] Start: 2001 RSV Immunization age d 60 or older (1 - 1-dose 60+ series) RSV Immunization aged 60 or older (1 - 1-dose 60+ series) [facility] Start: 1991 Zoster Vaccines (1 o f 2) Zoster Vaccines (1 of 2) [facility] Start: 1960 DTaP/Tdap/Td Vaccine s (1 - Tdap) DTaP/Tdap/Td Vaccines (1 - Tdap) [facility] Start: 1960 Pneumococcal Vaccine : 50+ Years (1 of 2 - PCV) Pneumococcal Vaccine: 50+ Years (1 of 2 - PCV) [facility] Start: 1953 Depression Monitoring Depression Mon itoring [facility] Start: 1953 Depression Screening Depression Scre ening [facility] Start: 1947 Pneumococcal Vaccine : 65+ Years (1 of 2 - PCV) Pneumococcal Vaccine: 65+ Years (1 of 2 - PCV) [facility] Start: 1941 Lipid panel Lipid Panel [facility] Start: 1941 Medicare Advantage Annual Wellness Visit (AWV) Medicare Advantage Annual Wellness Visit (AWV) [facility] Start: 1941 Screening for osteoporosis Bone Density Scan [facility] End: 05-09-2025 Cardiac event monitor (30 days) [facility] Work Phone: Comment on above: Once for 1 Occurrenc es starting 05/09/2025 until 05/09/2025 End: 11-04-2023 CT Foot - right WO contrast [facility] Work Phone: Comment on above: Once for 1 Occurrenc es starting 11/04/2023 until 11/04/2023 Immunizations Immunization Date Immunization Notes Care Provider Fa cility NEGATED: Highlighted row has not occurred!05-10-2025 Seasonal trivalent influenza vaccine, adjuvanted, preservative free [employer]a [employer] Work Phone: [facility] Comment on above: Deferred: Patient Re fused - pt states she got the flu shot within the last wk or so Payers Date Payer Category Payer Self-pay 2019 Medicare [employer] MEDICARE ADVANTAGE [employer] MEDICARE [id number] 2019-Present [address] [address] [place] [address] Medicare HMO [id number] 2019 Medicare HMO [facility] MEDICARE [id number] 2019 Medicare [id number] Unknown [id number] Unknown [id number] Social History Date Type Detail Facility Start: 06-22-2022 Tobacco smoking status INIS Smokes t obacco daily [facility] History of tobacco use Cigarette Smoker [facility] Start: 06-22-2022 Tobacco use and exposure Smokeless t obacco non-user [facility] Start: 06-22-2022 End: 05-11-2025 Alcohol intake Current non-drinker of alcohol (finding) [facility] Start: 10-01-2023 End: 05-14-2025 History of Social function [facility] Start: 10-01-2023 End: 05-14-2025 Alcohol Use Disorder Identification Test - Consumption [AUDIT-C] [facility] How often to you hav e a drink containing alcohol? Never [facility] How many standard dr inks containing alcohol do you have on a typical day? Patient does not drink [facility] Start: 1940 Sex Assigned At Not on file [facility] Start: 1940 Sex assigned at Female [facility] Start: 03-14-2022 Sex Female (finding) [facility] Within the last year , have you been afraid of your partner or ex-partner? No [facility] Start: 04-24-2025 Gender identity Identifies as female gender (finding) [facility] Start: 04-24-2025 Sexual orientation Heterosexual (fin ding) [facility] (I/We) worried wheth er (my/our) food would run out before (I/we) got money to buy more. Never true [facility] Medical Equipment Procedure Code Equipment Code Equipment Origin al Text Equipment Identifier Dates Nail Intertan 10 s 10x40 125d L - [id number] Start: 04-21-2025 Kit Scr 90mm 4.5 mm Intertan - [id number] Start: 04-21-2025 Screw Bn 5mm 42. 5mm Trgn Fem - [id number] Start: 04-21-2025 Goals Date Patient Goal Desired Activity /State Personal health goal Functional Status Date Assessment Result Facility [facility] Clinical Notes 10-01-2023 to 2025 Camilo Puga MD - 2025 4:00 PM Soraya Puga MD - 2025 4:00 PM Soraya Puga MD - 05/12/2025 4:00 PM LUIGI Wheatley - 2025 2:48 PM EDT Note Date & Type Note Facility 2025 Consult note Formatting of th is note is different from the original. Images from the original note were not included. NEUROLOGY SUBSEQUENT CONSULTATION DATE/TIME: MONDAY, MAY 14, 2025 [] PATIENT's NAME: MADAY ALFARO DATE OF : [birth year] AGE: 84 GENDER: Female ROOM: [facility]/A PHYSICIAN REQUESTING CONSULT: Dr. Bunn NEUROLOGIST: Mikala Camargo MD DATE OF ADMISSION: 05-10-25 REASON FOR NEUROLOGY CONSULTATION: Altered mental status with dysphasia and right-sided facial droop. INTERVAL HISTORY OF PRESENT ILLNESS ED HISTORY OF PRESENT ILLINESS Maday Alfaro who was admitted to the Emergency Department at [facility] on 05-10-25. She presented with altered mental status after a fall. Today, May 16 Ms. Alfaro says that she is back to her baseline. She says that she is ready to return to the nursing facility. She has no neurologic complaints. INITIAL NEURO-RELEVANT SYMPTOM PROFILE Onset of symptoms: 05-10-25 Description of symptoms: Altered mental status with dysphasia and right-sided facial droop. Concern for a fall. Today, 05-12-25, Ms. Alfaro continues to be symptomatic. Subjective Ms. Powers reports concern and confusion regarding a Dilantin dosing error, stating that her usual regimen is Dilantin 200 mg in the morning and 200 mg at night, but she was mistakenly given 400 mg in the morning and 400 mg at night. She is unsure how the error occurred and does not recall the details, expressing uncertainty and distress about the situation. She also reports smoking and indicates that she uses a bedside commode when needing to go to the bathroom. Ms. Powers states that she slept well last night and was still asleep in the morning, without reporting any issues with sleep. I encouraged to eat some food, but she complains of loss of appetite. Subjective Ms. Alfaro presents with confusion and a recent fall at the half-way. She expresses a strong desire to be active, stating readiness to get out and dance. She does not recall the fall or episodes of confusion. Currently Ms. Alfaro takes Dilantin 200 mg bid for seizure control, and she informed me that her Dilantin level was checked about a month ago, and states that no adjustment was made to her medication following the last Dilantin level. The main concerns we discussed include confusion, impaired memory of recent events, and ongoing seizure management. Negative acute neurologic symptoms: No headaches or head pain, no dizziness/vertigo, no lightheadedness or syncopal episodes, no diplopia or blurred vision, no visual impairment, no auditory impairment, no facial paresis or paralysis, no aphasia or dysarthria no dysphagia, no extremity paresis or paralysis, no extremity sensory deficit, no tremor, no involuntary movement, no seizures. NEURO-RELEVANT REVIEW OF SYSTEMS NEUROLOGY Aphasia Ataxia Balance impairment Cognitive/Memory impairment CVA/TIA Diplopia Dizziness Dysesthesia Dystonia Facial asymmetry Falls, unintended Fasciculation Gait disorder Headache/migraine Hearing impairment Hyperesthesia Hypoesthesia Inattentiveness Insomnia Involuntary movement/Tremor Major neurocognitive disorder (dementia) Memory impairment Multiple sclerosis Myasthenia Myopathy Narcolepsy Near-syncope Neuropathy Numbness Paresthesia Parkinsonism/Parkinson's disease Restless leg syndrome Seizures/epilepsy Speech Difficulty Syncope Tremor (Essential) Vestibular balance dysfunction Weaknesses ABNORMAL NEGATIVE CARDIOVASCULAR Angina Bradycardia Cardiac pacemaker Cardiac stent Cardiomegaly Claudication Coronary artery disease ECG, abnormal Heart attack Heart murmur Hypertension Irregular heart rhythm/fibrillation Palpitation Peripheral edema, pitting Peripheral vascular disease Tachycardia ABNORMAL NEGATIVE DERMATOLOGY NEGATIVE EAR, NOSE, & THROAT NEGATIVE ENDOCRINOLOGY NEGATIVE GASTROINTESTINAL NEGATIVE GENERAL NEGATIVE GENITOURINARY NEGATIVE GYNECOLOGY NEGATIVE HEMATOLOGY NEGATIVE MUSCULOSKELETAL Arthralgia Arthritis Back pain Back stiffness Cervicalgia Fibromyalgia Muscle cramps/spasm Myalgia Myopathy Nuchal rigidity Osteoarthritis ABNORMAL NEGATIVE NECK NEGATIVE OPHTHALMOLOGY NEGATIVE ORTHOPEDIC Deformities Fracture: Hip and femur Hip & knee & ankle injury Tendon injury Tumors Shoulder & Elbow & hand injury ABNORMAL NEGATIVE PSYCHIATRY/PSYCHOLOGY Alcohol use disorder Anxiety Behavioral disorder Bipolar disorder Depression Hallucination Hypersomnia Insomnia Irritability/agitation Mood disorder Nicotine dependence PTSD Sleep disturbance Suicidal Ideation ABNORMAL NEGATIVE PULMONARY NEGATIVE RHEUMATOLOGY Gout Lupus Osteoarthritis Osteoporosis Polymyalgia rheumatica Polymyositis Psoriasis arthritis Rheumatoid arthritis Scleroderma Sj gren's Syndrome Tendinitis Vasculitis ABNORMAL NEGATIVE SLEEP NEGATIVE SUPPLEMENTAL Vitamin D deficiency NEURO-RELEVANT PAST MEDICAL/SURGERY HISTORY NEURO-RELEVANT MEDICAL HISTORY NEUROLOGY Seizures Chronic insomnia CARDIOLOGY Hypertension ORTHOPEDIC LEFT fracture femur LEFT hip fracture NEURO-RELEVANT PAST SURGERY HISTORY NEUROLOGY None GYNECOLOGY Total hysterectomy OPTHALMOLOGY Eye surgery ORTHOPEDIC Hip fracture Vitamin D deficiency NEURO-RELEVANT MEDICATION/DRUG/OTC REVIEW NEURO-RELEVANT OUTPATIENT TREATMENT NEUROLOGY Aspirin 81 mg daily Dilantin 200 mg bid OPTHALMOLOGY Acetaminophen 500 mg prn Oxycodone 5 mg prn PSYCHIATRY Melatonin 5 mg qhs/temazepam 15 mg qhs Sertraline 100 mg qam RHEUMATOLOGY Fosamax 70 mg/week SUPPLEMENTAL Vitamin D2 50,000 units weekly DRUG ALLERGIES Bee Venom Anaphylaxis Lidocaine Shortness of breath Penicillin G Rash Penicillins Nausea Only Simvastatin Rash Sulfa Antibiotics Nausea Only Varenicline Nausea And Vomiting NEURO-RELEVANT SOCIAL HISTORY Currently smoking: Daily Currently vaping: No Current alcohol use: Not currently Current caffeine use: Not known. Current drug use non-medication: No ADDITIONAL: . Currently living in a nursing facility NEURO-RELEVANT RELEVANT FAMILY HISTORY Family history is significant: Stroke, heart disease, coronary artery disease. NEURO-RELEVANT NEURODIAGNOSTIC LAB RESULTS ELECTROLYTES PANEL Sodium: (N: 136-145) 134 Potassium: (N: 3.5-5.1) 3.6 RENAL PANEL BUN: (N: 9-23) 10 Creatinine: (N: 0.57-1.11) 0.44 GFR: (N: >60) >90 Total protein: (N: 6.4-8.3) 5.7 Albumin: (N: 3.5-5.0) 3.0 Calcium: (N: 8.8-10) 9.1 Magnesium: (N: 1.6-2.6) not available DIABETES PANEL Glucose: (N: 82-115) 106 HbA1c: (N: <5.7- <6.5) 4.3 HEPATIC PANEL Alkaline phosphatase: (N: 40-140) 190 AST: (N: <34) 26 ALT: (N: <30) 7 Total Bilirubin: (N: <1.2) 1.2 Lactic acid: 1.6 CARDIAC PANEL CK: (N: 30-185) Troponin HS serial baseline: (N: <14) <3 Troponin HS serial second: (N: <14) <3 NT PRO BNP: (N: <450) Protime: (N: 0.9-12) 10.9 INR: (N: 0.9-1.1) 1.0 APTT: (N: 20-30.5) 29.8 LIPID PANEL Triglyceride: (N: <150) 50 HDL: (N: >60) 72 LDL: (N: <100) 96 Cholesterol: (N: <200) 178 CBC WBC: (N: 3.6-10.7) 5.4 RBC: (N: M: 3.8-5.2) 3.10 Hemoglobin: (N: M: 12-17. F: 11.7-16.0) 10.7 Hematocrit: (N:35-47) 32.4 MCV: (N: 77-99) 104.5 MCH: (N: 26-34) 34.5 MCHC: (N: 30.5-36) 33.0 Platelet count: (N: 140-440) 204 MPV: (N: 9-12.7) 9.6 ANEMIA PANEL Vitamin B12: (N: 213-816) Pending Folate: (N: 7-31.4) Pending Vitamin D: (N: 30-100) Pending THYROID PANEL TSH: N: 0.35-4.94) not available MISCELLANEOUS Dilantin level: (N: 10-20) 49.6 Dilantin toxicity. Then 36.6 and today May 12:-33.2 .21.4 - 15.9 - 10.0- 2025: 7.6 URINALYSIS: Turbid with few bacteria Nitrite: Negative CT HEAD without contrast No acute intracranial lesion. Diffuse cortical atrophy. Chronic subcortical, periventricular white matter with small vessel ischemic changes. CT CERVICAL SPINE No evidence of acute fracture or traumatic subluxation of the cervical spine. Age indeterminant mild superior endplate compression fracture deformity T2. Trace of pleural thickening vs pleural effusion on the left. Partial visualization of 2.0 x 1.5 cm nodule left lung apex medially. Heterogeneous bulky thyroid gland with multiple nodules measuring up to at least 1.[address] THORACIC SPINE Superior endplate compression T2, age indeterminate. Osteopenia. Small left pleural effusion. 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 Left lung apex medial irregular 1.[address] LUMBAR No evidence of acute lumbar spine fracture or traumatic subluxation. Degenerative spondylosis lumbar spine with moderate to severe spinal stenosis at L3-L4, L4-L5 as well as moderate to severe bilateral foraminal stenosis with facet hypertrophy. 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 CHEST X-RAY No acute cardiopulmonary disease. X-RAY LEFT HAND AND RIGHT HIP No acute fractures or dislocation. Degenerative changes of the LEFT hand and wrist. Subtle lucency of the right proximal femur transcervical region which may reflect a nondisplaced fracture versus artifact. Redemonstration of the comminuted left proximal femur intertrochanteric fracture with avulsion of the lesser trochanter status post open reduction internal fixation with intramedullary ras and proximal interlocking screws (acute fracture 04/21/2025). EKG Sinus rhythm (68/min) LEFT anterior fascicular block. ROUTINE EEG/VIDEO EEG-NEUROPHYSIOLOGICAL IMPRESSION/ EEG-CLINICAL CORRELATION This is an ABNORMAL AWAKE & DROWSY INPATIENT EEG. The posterior dominant delta rhythm 6 Hz is seen throughout the awakened portion of this EEG recording. Generalized slowing of the background activity reflects a mildly severe diffuse cortical dysfunction which can be seen with toxic-metabolic/systemic causes, consistent with Dilantin (phenytoin) toxicity There are no abnormal EEG rhythms. There are no abnormal EEG wave-complexes. There are no focal/lateralizing EEG abnormalities. There are no ictal or interictal epileptiform discharges & no clinical seizures are seen on video. NEUROLOGICAL EXAMINATION Observation Objective - Phenytoin (Dilantin) level: elevated - No physical or neurologic examination findings reported in the transcript Mr. Alfaro is lying comfortably in bed, in no acute distress. Objective - Lab results: phenytoin (Dilantin) level 49.6 (reference <20; target 16-17) drawn approximately one month ago - Confusion noted during encounter - Impaired mobility and increased fall risk discussed; advised not to get up or move around unassisted - No additional physical or neurologic examination Level of cooperation Pleasant: Agreeable manners, & behavior. Cooperative: Willingness & ability to work in a common effort. Attitude Normal Behavior & psychomotor activity Lethargic: Facial expression Normal: Proper to the medical/neurologic situation. Speech Hypophonic Cognitive evaluation Memory: Recall of medical data: Impaired Attentive: Lethargic Orientation: 7 Date, Month, Year, Day, Place, City, and President of [facility]: Impaired CEREBELLAR FUNCTION No tremor. No extraneous movements. No dysmetria. Stance/Gait: Not evaluated CRANIAL NERVES II-XII: Normal NEUROMUSCULAR Tone: Normal for age. Wasting of the upper extremities: Absent in the upper extremities Wasting of the lower extremities: Absent in the lower extremities Distal extremities edema: None POWER UPPER: Attempt: Lethargic POWER LOWER: Attempt: Lethargic Moves all limbs spontaneously and purposefully. DEEP TENDON REFLEXES Biceps (C5-C6) R: 2+ L: 2+ Triceps (C7-C8) R: 2+ L: 2+ Patella (L3-L4) R: 2+ L: 2+ Ankle (S1-S2) R: 2+ L: 2+ Extensor Plantar Response R: Negative Extensor Plantar Response L: Negative SENSORY Sensation to light touch: Normal bilaterally NEUROLOGICAL DECISION MAKING PRIMARY NEUROLOGICAL COMPLAINT Altered mental status with dysphasia and right-sided facial droop. PRIMARY NEUROLOGICAL DIAGNOSIS E/M/C ETIOLOGY of COMPLIANT T42.0X1A Dilantin toxicity MANIFESTATION of COMPLIANT G31.84 Mild cognitive impairment of uncertain or unknown etiology COMORBIDITY ASSOCIATED WITH COMPLIANT E87.1 Hyponatremia E44.1 Mild protein-calorie malnutrition SECONDARY DIAGNOSIS CT imaging confirmation CT CERVICAL SPINE Partial visualization of 2.0 x 1.5 cm nodule left lung apex medially. Heterogeneous bulky thyroid gland with multiple nodules measuring up to at least 1.[address] THORACIC SPINE Superior endplate compression T2, age indeterminate. Osteopenia. Small left pleural effusion. 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 Left lung apex medial irregular 1.[address] LUMBAR No evidence of acute lumbar spine fracture or traumatic subluxation. Degenerative spondylosis lumbar spine with moderate to severe spinal stenosis at L3-L4, L4-L5 as well as moderate to severe bilateral foraminal stenosis with facet hypertrophy. 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 NEUROLOGICAL DIAGNOSIS ASSESSMENT & COMPLEXITIES (D/D) No clinical or neuroimaging evidence of acute cerebrovascular event. CLINICAL PRESENTATION & DECISION ANALYSIS/DIFFERENTIAL DIAGNOSIS ASSESSMENT No further neurologic deficits. 05-12-25 Ms. Alfaro presents with Dilantin toxicity secondary to a medication dosing error, as evidenced by persistently elevated Dilantin levels. She also reports smoking and use of a bedside commode for bathroom needs and describes sleeping through the previous night without issues. The primary neurologic complaint is Dilantin toxicity. Differential diagnosis for elevated Dilantin levels and associated symptoms includes medication dosing error, impaired hepatic metabolism, drug-drug interactions, and possible underlying neurologic conditions that may affect phenytoin metabolism or sensitivity. 05-11-25 Ms. Alfaro presents with acute confusion and a recent fall, both likely secondary to Dilantin toxicity, as evidenced by a serum phenytoin level of 49.6 (therapeutic range <20). Her seizure disorder is managed with phenytoin (Dilantin) 200 mg bid. DIFFERENTIAL DIAGNOSIS Differential diagnosis for confusion and fall includes Dilantin toxicity, Metabolic encephalopathy, Infection, Stroke, and other Medication effects, but the elevated Dilantin level and clinical context strongly support Dilantin toxicity as the primary cause. NEURO-DIAGNOSTICS REQUESTED Daily trough total Dilantin levels (stat) Inpatient EEG Vitamin B12/folate levels NEUROLOGY TREATMENT RECOMMENDATION/GOALS NEURO PHARMACOTHERAPY NEURO NON-PHARMACOTHERAPY Continue treatment with phenytoin 200 mg bid 05-12-25 Continue close monitoring of Dilantin levels due to recent overdose from incorrect dosing. Advise to try to eat some food to support overall health and recovery during hospitalization. For Dilantin toxicity, the treatment plan is supportive care and monitoring until levels are normalized. 05-11-25 Temporarily discontinue Dilantin therapy Stop Dilantin administration until the daily serum levels decrease to the normal range. Once Dilantin levels have normalized, restart the medication at a reduced dose, decreasing from four capsules per day to three capsules per day to avoid future toxicity. Monitor for clinical improvement over the next three to four days as Dilantin levels decline. I will reassess Ms. Alfaro's clinical status tomorrow to evaluate progress and adjust management as needed. I advised strict fall precautions and instruct Ms. Alfaro not to get up or move around unassisted due to current neurological impairment and increased fall risk. I requested an inpatient EEG to evaluate for continued seizures. I also requested vitamin B12/folate levels for vitamin B12/folate deficiency NEURO-TREATMENT COMPLEXITIES/ADVERSE EFFECT(S) DRUG-DRUG INTERACTION Adverse effects of phenytoin toxicity include confusion, impaired coordination, increased risk of falls, and encephalopathy, as discussed. No other medications or drug-drug interactions are mentioned or recommended at this time. Adverse effects of phenytoin (Dilantin) may include ataxia, nystagmus, confusion, gastrointestinal symptoms, and potential cardiac arrhythmias at high levels. No other medications or drug-drug interactions are reported in the transcript. PROGNOSIS FOR NEUROLOGIC RECOVERY Neurological prognosis for recovery is excellent. NEUROLOGY REEVALUATION WITH DR. Camargo Ms. 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 This thoroughness was essential for me to engage in a [id number] interview and conduct a focused neurological examination, aimed at better understanding Ms. Alfaro's neurologic complaints. During our discussion, I took the opportunity to explain the current diagnosis, detailing its development, potential alternative diagnoses, and various treatment options. I made sure to involve her in the decision-making process, discussing what we can anticipate as we proceed and ensuring she felt informed and comfortable with the neurological diagnosis and its underlying causes. Together, we carefully reviewed the results of the relevant neurodiagnostic tests, and I communicated the benefits and risks of the current neurologic management plan clearly and straightforwardly. I discussed the proposed care plan, ensuring it was at a level that she could understand. She voiced her agreement with the current neurological care. REFERRING PHYSICIAN: I updated the referring physician, & the treatment team with my Medical Decision Making. Please note With Ms. Alfaro's approval, I created this report using [employer] voice recognition system, [employer], and [employer] pilot. I conducted an accurate and prompt marble rubber and a thorough editorial review. Acknowledging that some subtle contextual errors may still be present is essential. These errors can arise from the misrecognition of spoken words, which is common when integrating human voice with advanced digital technologies. This interaction can sometimes lead to misunderstandings or misinterpretations in the text. Please let me know if you notice any errors, discrepancies, or inconsistencies in this report. Your feedback is valuable in helping me maintain the quality and accuracy of the information presented. Thanks for your understanding and cooperation. Mikala Camargo MD Comprehensive Neurologist [facility] 2025 Consult note Formatting of th is note is different from the original. Images from the original note were not included. NEUROLOGY SUBSEQUENT CONSULTATION DATE/TIME: WEDNESDAY, MAY 14, 2025 [] PATIENT's NAME: MADAY ALFARO DATE OF : 42 AGE: 84 GENDER: Female ROOM: 251/A PHYSICIAN REQUESTING CONSULT: Dr. Bunn NEUROLOGIST: Mikala Camargo MD DATE OF ADMISSION: 05-10-25 REASON FOR NEUROLOGY CONSULTATION: Altered mental status with dysphasia and right-sided facial droop. INTERVAL HISTORY OF PRESENT ILLNESS ED HISTORY OF PRESENT ILLINESS Maday Alfaro who was admitted to the Emergency Department at [facility] on 05-10-25. She presented with altered mental status after a fall. Today, May 16 Ms. Alfaro says that she is back to her baseline. She says that she is ready to return to the nursing facility. She has no neurologic complaints. INITIAL NEURO-RELEVANT SYMPTOM PROFILE Onset of symptoms: 05-10-25 Description of symptoms: Altered mental status with dysphasia and right-sided facial droop. Concern for a fall. Today, 05-12-25, Ms. Alfaro continues to be symptomatic. Subjective Ms. Powers reports concern and confusion regarding a Dilantin dosing error, stating that her usual regimen is Dilantin 200 mg in the morning and 200 mg at night, but she was mistakenly given 400 mg in the morning and 400 mg at night. She is unsure how the error occurred and does not recall the details, expressing uncertainty and distress about the situation. She also reports smoking and indicates that she uses a bedside commode when needing to go to the bathroom. Ms. Powers states that she slept well last night and was still asleep in the morning, without reporting any issues with sleep. I encouraged to eat some food, but she complains of loss of appetite. Subjective Ms. Alfaro presents with confusion and a recent fall at the half-way. She expresses a strong desire to be active, stating readiness to get out and dance. She does not recall the fall or episodes of confusion. Currently Ms. Alfaro takes Dilantin 200 mg bid for seizure control, and she informed me that her Dilantin level was checked about a month ago, and states that no adjustment was made to her medication following the last Dilantin level. The main concerns we discussed include confusion, impaired memory of recent events, and ongoing seizure management. Negative acute neurologic symptoms: No headaches or head pain, no dizziness/vertigo, no lightheadedness or syncopal episodes, no diplopia or blurred vision, no visual impairment, no auditory impairment, no facial paresis or paralysis, no aphasia or dysarthria no dysphagia, no extremity paresis or paralysis, no extremity sensory deficit, no tremor, no involuntary movement, no seizures. NEURO-RELEVANT REVIEW OF SYSTEMS NEUROLOGY Aphasia Ataxia Balance impairment Cognitive/Memory impairment CVA/TIA Diplopia Dizziness Dysesthesia Dystonia Facial asymmetry Falls, unintended Fasciculation Gait disorder Headache/migraine Hearing impairment Hyperesthesia Hypoesthesia Inattentiveness Insomnia Involuntary movement/Tremor Major neurocognitive disorder (dementia) Memory impairment Multiple sclerosis Myasthenia Myopathy Narcolepsy Near-syncope Neuropathy Numbness Paresthesia Parkinsonism/Parkinson's disease Restless leg syndrome Seizures/epilepsy Speech Difficulty Syncope Tremor (Essential) Vestibular balance dysfunction Weaknesses ABNORMAL NEGATIVE CARDIOVASCULAR Angina Bradycardia Cardiac pacemaker Cardiac stent Cardiomegaly Claudication Coronary artery disease ECG, abnormal Heart attack Heart murmur Hypertension Irregular heart rhythm/fibrillation Palpitation Peripheral edema, pitting Peripheral vascular disease Tachycardia ABNORMAL NEGATIVE DERMATOLOGY NEGATIVE EAR, NOSE, & THROAT NEGATIVE ENDOCRINOLOGY NEGATIVE GASTROINTESTINAL NEGATIVE GENERAL NEGATIVE GENITOURINARY NEGATIVE GYNECOLOGY NEGATIVE HEMATOLOGY NEGATIVE MUSCULOSKELETAL Arthralgia Arthritis Back pain Back stiffness Cervicalgia Fibromyalgia Muscle cramps/spasm Myalgia Myopathy Nuchal rigidity Osteoarthritis ABNORMAL NEGATIVE NECK NEGATIVE OPHTHALMOLOGY NEGATIVE ORTHOPEDIC Deformities Fracture: Hip and femur Hip & knee & ankle injury Tendon injury Tumors Shoulder & Elbow & hand injury ABNORMAL NEGATIVE PSYCHIATRY/PSYCHOLOGY Alcohol use disorder Anxiety Behavioral disorder Bipolar disorder Depression Hallucination Hypersomnia Insomnia Irritability/agitation Mood disorder Nicotine dependence PTSD Sleep disturbance Suicidal Ideation ABNORMAL NEGATIVE PULMONARY NEGATIVE RHEUMATOLOGY Gout Lupus Osteoarthritis Osteoporosis Polymyalgia rheumatica Polymyositis Psoriasis arthritis Rheumatoid arthritis Scleroderma Sj gren's Syndrome Tendinitis Vasculitis ABNORMAL NEGATIVE SLEEP NEGATIVE SUPPLEMENTAL Vitamin D deficiency NEURO-RELEVANT PAST MEDICAL/SURGERY HISTORY NEURO-RELEVANT MEDICAL HISTORY NEUROLOGY Seizures Chronic insomnia CARDIOLOGY Hypertension ORTHOPEDIC LEFT fracture femur LEFT hip fracture NEURO-RELEVANT PAST SURGERY HISTORY NEUROLOGY None GYNECOLOGY Total hysterectomy OPTHALMOLOGY Eye surgery ORTHOPEDIC Hip fracture Vitamin D deficiency NEURO-RELEVANT MEDICATION/DRUG/OTC REVIEW NEURO-RELEVANT OUTPATIENT TREATMENT NEUROLOGY Aspirin 81 mg daily Dilantin 200 mg bid OPTHALMOLOGY Acetaminophen 500 mg prn Oxycodone 5 mg prn PSYCHIATRY Melatonin 5 mg qhs/temazepam 15 mg qhs Sertraline 100 mg qam RHEUMATOLOGY Fosamax 70 mg/week SUPPLEMENTAL Vitamin D2 50,000 units weekly DRUG ALLERGIES Bee Venom Anaphylaxis Lidocaine Shortness of breath Penicillin G Rash Penicillins Nausea Only Simvastatin Rash Sulfa Antibiotics Nausea Only Varenicline Nausea And Vomiting NEURO-RELEVANT SOCIAL HISTORY Currently smoking: Daily Currently vaping: No Current alcohol use: Not currently Current caffeine use: Not known. Current drug use non-medication: No ADDITIONAL: . Currently living in a nursing facility NEURO-RELEVANT RELEVANT FAMILY HISTORY Family history is significant: Stroke, heart disease, coronary artery disease. NEURO-RELEVANT NEURODIAGNOSTIC LAB RESULTS ELECTROLYTES PANEL Sodium: (N: 136-145) 134 Potassium: (N: 3.5-5.1) 3.6 RENAL PANEL BUN: (N: 9-23) 10 Creatinine: (N: 0.57-1.11) 0.44 GFR: (N: >60) >90 Total protein: (N: 6.4-8.3) 5.7 Albumin: (N: 3.5-5.0) 3.0 Calcium: (N: 8.8-10) 9.1 Magnesium: (N: 1.6-2.6) not available DIABETES PANEL Glucose: (N: 82-115) 106 HbA1c: (N: <5.7- <6.5) 4.3 HEPATIC PANEL Alkaline phosphatase: (N: 40-140) 190 AST: (N: <34) 26 ALT: (N: <30) 7 Total Bilirubin: (N: <1.2) 1.2 Lactic acid: 1.6 CARDIAC PANEL CK: (N: 30-185) Troponin HS serial baseline: (N: <14) <3 Troponin HS serial second: (N: <14) <3 NT PRO BNP: (N: <450) Protime: (N: 0.9-12) 10.9 INR: (N: 0.9-1.1) 1.0 APTT: (N: 20-30.5) 29.8 LIPID PANEL Triglyceride: (N: <150) 50 HDL: (N: >60) 72 LDL: (N: <100) 96 Cholesterol: (N: <200) 178 CBC WBC: (N: 3.6-10.7) 5.4 RBC: (N: M: 3.8-5.2) 3.10 Hemoglobin: (N: M: 12-17. F: 11.7-16.0) 10.7 Hematocrit: (N:35-47) 32.4 MCV: (N: 77-99) 104.5 MCH: (N: 26-34) 34.5 MCHC: (N: 30.5-36) 33.0 Platelet count: (N: 140-440) 204 MPV: (N: 9-12.7) 9.6 ANEMIA PANEL Vitamin B12: (N: 213-816) Pending Folate: (N: 7-31.4) Pending Vitamin D: (N: 30-100) Pending THYROID PANEL TSH: N: 0.35-4.94) not available MISCELLANEOUS Dilantin level: (N: 10-20) 49.6 Dilantin toxicity. Then 36.6 and today May 12:-33.2 .21.4 - 15.9 - 10.0- 2025: 7.6 URINALYSIS: Turbid with few bacteria Nitrite: Negative CT HEAD without contrast No acute intracranial lesion. Diffuse cortical atrophy. Chronic subcortical, periventricular white matter with small vessel ischemic changes. CT CERVICAL SPINE No evidence of acute fracture or traumatic subluxation of the cervical spine. Age indeterminant mild superior endplate compression fracture deformity T2. Trace of pleural thickening vs pleural effusion on the left. Partial visualization of 2.0 x 1.5 cm nodule left lung apex medially. Heterogeneous bulky thyroid gland with multiple nodules measuring up to at least 1.[address] THORACIC SPINE Superior endplate compression T2, age indeterminate. Osteopenia. Small left pleural effusion. 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 Left lung apex medial irregular 1.[address] LUMBAR No evidence of acute lumbar spine fracture or traumatic subluxation. Degenerative spondylosis lumbar spine with moderate to severe spinal stenosis at L3-L4, L4-L5 as well as moderate to severe bilateral foraminal stenosis with facet hypertrophy. 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 CHEST X-RAY No acute cardiopulmonary disease. X-RAY LEFT HAND AND RIGHT HIP No acute fractures or dislocation. Degenerative changes of the LEFT hand and wrist. Subtle lucency of the right proximal femur transcervical region which may reflect a nondisplaced fracture versus artifact. Redemonstration of the comminuted left proximal femur intertrochanteric fracture with avulsion of the lesser trochanter status post open reduction internal fixation with intramedullary ras and proximal interlocking screws (acute fracture 04/21/2025). EKG Sinus rhythm (68/min) LEFT anterior fascicular block. ROUTINE EEG/VIDEO EEG-NEUROPHYSIOLOGICAL IMPRESSION/ EEG-CLINICAL CORRELATION This is an ABNORMAL AWAKE & DROWSY INPATIENT EEG. The posterior dominant delta rhythm 6 Hz is seen throughout the awakened portion of this EEG recording. Generalized slowing of the background activity reflects a mildly severe diffuse cortical dysfunction which can be seen with toxic-metabolic/systemic causes, consistent with Dilantin (phenytoin) toxicity There are no abnormal EEG rhythms. There are no abnormal EEG wave-complexes. There are no focal/lateralizing EEG abnormalities. There are no ictal or interictal epileptiform discharges & no clinical seizures are seen on video. NEUROLOGICAL EXAMINATION Observation Objective - Phenytoin (Dilantin) level: elevated - No physical or neurologic examination findings reported in the transcript Mr. Alfaro is lying comfortably in bed, in no acute distress. Objective - Lab results: phenytoin (Dilantin) level 49.6 (reference <20; target 16-17) drawn approximately one month ago - Confusion noted during encounter - Impaired mobility and increased fall risk discussed; advised not to get up or move around unassisted - No additional physical or neurologic examination Level of cooperation Pleasant: Agreeable manners, & behavior. Cooperative: Willingness & ability to work in a common effort. Attitude Normal Behavior & psychomotor activity Lethargic: Facial expression Normal: Proper to the medical/neurologic situation. Speech Hypophonic Cognitive evaluation Memory: Recall of medical data: Impaired Attentive: Lethargic Orientation: 7 Date, Month, Year, Day, Place, City, and President of [facility]: Impaired CEREBELLAR FUNCTION No tremor. No extraneous movements. No dysmetria. Stance/Gait: Not evaluated CRANIAL NERVES II-XII: Normal NEUROMUSCULAR Tone: Normal for age. Wasting of the upper extremities: Absent in the upper extremities Wasting of the lower extremities: Absent in the lower extremities Distal extremities edema: None POWER UPPER: Attempt: Lethargic POWER LOWER: Attempt: Lethargic Moves all limbs spontaneously and purposefully. DEEP TENDON REFLEXES Biceps (C5-C6) R: 2+ L: 2+ Triceps (C7-C8) R: 2+ L: 2+ Patella (L3-L4) R: 2+ L: 2+ Ankle (S1-S2) R: 2+ L: 2+ Extensor Plantar Response R: Negative Extensor Plantar Response L: Negative SENSORY Sensation to light touch: Normal bilaterally NEUROLOGICAL DECISION MAKING PRIMARY NEUROLOGICAL COMPLAINT Altered mental status with dysphasia and right-sided facial droop. PRIMARY NEUROLOGICAL DIAGNOSIS E/M/C ETIOLOGY of COMPLIANT T42.0X1A Dilantin toxicity MANIFESTATION of COMPLIANT G31.84 Mild cognitive impairment of uncertain or unknown etiology COMORBIDITY ASSOCIATED WITH COMPLIANT E87.1 Hyponatremia E44.1 Mild protein-calorie malnutrition SECONDARY DIAGNOSIS CT imaging confirmation CT CERVICAL SPINE Partial visualization of 2.0 x 1.5 cm nodule left lung apex medially. Heterogeneous bulky thyroid gland with multiple nodules measuring up to at least 1.[address] THORACIC SPINE Superior endplate compression T2, age indeterminate. Osteopenia. Small left pleural effusion. 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 Left lung apex medial irregular 1.[address] LUMBAR No evidence of acute lumbar spine fracture or traumatic subluxation. Degenerative spondylosis lumbar spine with moderate to severe spinal stenosis at L3-L4, L4-L5 as well as moderate to severe bilateral foraminal stenosis with facet hypertrophy. 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 NEUROLOGICAL DIAGNOSIS ASSESSMENT & COMPLEXITIES (D/D) No clinical or neuroimaging evidence of acute cerebrovascular event. CLINICAL PRESENTATION & DECISION ANALYSIS/DIFFERENTIAL DIAGNOSIS ASSESSMENT No further neurologic deficits. 05-12-25 Ms. Alfaro presents with Dilantin toxicity secondary to a medication dosing error, as evidenced by persistently elevated Dilantin levels. She also reports smoking and use of a bedside commode for bathroom needs and describes sleeping through the previous night without issues. The primary neurologic complaint is Dilantin toxicity. Differential diagnosis for elevated Dilantin levels and associated symptoms includes medication dosing error, impaired hepatic metabolism, drug-drug interactions, and possible underlying neurologic conditions that may affect phenytoin metabolism or sensitivity. 05-11-25 Ms. Alfaro presents with acute confusion and a recent fall, both likely secondary to Dilantin toxicity, as evidenced by a serum phenytoin level of 49.6 (therapeutic range <20). Her seizure disorder is managed with phenytoin (Dilantin) 200 mg bid. DIFFERENTIAL DIAGNOSIS Differential diagnosis for confusion and fall includes Dilantin toxicity, Metabolic encephalopathy, Infection, Stroke, and other Medication effects, but the elevated Dilantin level and clinical context strongly support Dilantin toxicity as the primary cause. NEURO-DIAGNOSTICS REQUESTED Daily trough total Dilantin levels (stat) Inpatient EEG Vitamin B12/folate levels NEUROLOGY TREATMENT RECOMMENDATION/GOALS NEURO PHARMACOTHERAPY NEURO NON-PHARMACOTHERAPY Continue treatment with phenytoin 200 mg bid 05-12-25 Continue close monitoring of Dilantin levels due to recent overdose from incorrect dosing. Advise to try to eat some food to support overall health and recovery during hospitalization. For Dilantin toxicity, the treatment plan is supportive care and monitoring until levels are normalized. 05-11-25 Temporarily discontinue Dilantin therapy Stop Dilantin administration until the daily serum levels decrease to the normal range. Once Dilantin levels have normalized, restart the medication at a reduced dose, decreasing from four capsules per day to three capsules per day to avoid future toxicity. Monitor for clinical improvement over the next three to four days as Dilantin levels decline. I will reassess Ms. Alfaro's clinical status tomorrow to evaluate progress and adjust management as needed. I advised strict fall precautions and instruct Ms. Alfaro not to get up or move around unassisted due to current neurological impairment and increased fall risk. I requested an inpatient EEG to evaluate for continued seizures. I also requested vitamin B12/folate levels for vitamin B12/folate deficiency NEURO-TREATMENT COMPLEXITIES/ADVERSE EFFECT(S) DRUG-DRUG INTERACTION Adverse effects of phenytoin toxicity include confusion, impaired coordination, increased risk of falls, and encephalopathy, as discussed. No other medications or drug-drug interactions are mentioned or recommended at this time. Adverse effects of phenytoin (Dilantin) may include ataxia, nystagmus, confusion, gastrointestinal symptoms, and potential cardiac arrhythmias at high levels. No other medications or drug-drug interactions are reported in the transcript. PROGNOSIS FOR NEUROLOGIC RECOVERY Neurological prognosis for recovery is excellent. NEUROLOGY REEVALUATION WITH DR. Camargo Ms. 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 This thoroughness was essential for me to engage in a [id number] interview and conduct a focused neurological examination, aimed at better understanding Ms. Alfaro's neurologic complaints. During our discussion, I took the opportunity to explain the current diagnosis, detailing its development, potential alternative diagnoses, and various treatment options. I made sure to involve her in the decision-making process, discussing what we can anticipate as we proceed and ensuring she felt informed and comfortable with the neurological diagnosis and its underlying causes. Together, we carefully reviewed the results of the relevant neurodiagnostic tests, and I communicated the benefits and risks of the current neurologic management plan clearly and straightforwardly. I discussed the proposed care plan, ensuring it was at a level that she could understand. She voiced her agreement with the current neurological care. REFERRING PHYSICIAN: I updated the referring physician, & the treatment team with my Medical Decision Making. Please note With Ms. Alfaro's approval, I created this report using [email or web address] recognition system, [employer], and [employer]engine pilot. I conducted an accurate and prompt marble rubber and a thorough editorial review. Acknowledging that some subtle contextual errors may still be present is essential. These errors can arise from the misrecognition of spoken words, which is common when integrating human voice with advanced digital technologies. This interaction can sometimes lead to misunderstandings or misinterpretations in the text. Please let me know if you notice any errors, discrepancies, or inconsistencies in this report. Your feedback is valuable in helping me maintain the quality and accuracy of the information presented. Thanks for your understanding and cooperation. Mikala Camargo MD Comprehensive Neurologist NEUROLOGY SUBSEQUENT CONSULTATION DATE/TIME: 2024 [] PATIENT s NAME: MADAY ALFARO DATE OF : 42 AGE: 84 GENDER: Female ROOM: [facility]/A PHYSICIAN REQUESTING CONSULT: Dr. Bunn NEUROLOGIST: Mikala Camargo MD DATE OF ADMISSION: 05-10-25 REASON FOR NEUROLOGY CONSULTATION: Altered mental status with dysphasia and right-sided facial droop. INTERVAL HISTORY OF PRESENT ILLNESS ED HISTORY OF PRESENT ILLINESS Maday Alfaro who was admitted to the Emergency Department at [facility] on 05-10-25. She presented with altered mental status after a fall. Ms. Alfaro cannot give me a neurological history. NEURO-RELEVANT SYMPTOM PROFILE Onset of symptoms: 05-10-25 Description of symptoms: Altered mental status with dysphasia and right-sided facial droop. Concern for a fall. Today, 05-12-25, Ms. Alfaro continues to be symptomatic. Subjective Ms. Powers reports concern and confusion regarding a Dilantin dosing error, stating that her usual regimen is Dilantin 200 mg in the morning and 200 mg at night, but she was mistakenly given 400 mg in the morning and 400 mg at night. She is unsure how the error occurred and does not recall the details, expressing uncertainty and distress about the situation. She also reports smoking and indicates that she uses a bedside commode when needing to go to the bathroom. Ms. Powers states that she slept well last night and was still asleep in the morning, without reporting any issues with sleep. I encouraged to eat some food, but she complains of loss of appetite. Subjective Ms. Alfaro presents with confusion and a recent fall at the half-way. She expresses a strong desire to be active, stating readiness to get out and dance. She does not recall the fall or episodes of confusion. Currently Ms. Alfaro takes Dilantin 200 mg bid for seizure control, and she informed me that her Dilantin level was checked about a month ago, and states that no adjustment was made to her medication following the last Dilantin level. The main concerns we discussed include confusion, impaired memory of recent events, and ongoing seizure management. Negative acute neurologic symptoms: No headaches or head pain, no dizziness/vertigo, no lightheadedness or syncopal episodes, no diplopia or blurred vision, no visual impairment, no auditory impairment, no facial paresis or paralysis, no aphasia or dysarthria no dysphagia, no extremity paresis or paralysis, no extremity sensory deficit, no tremor, no involuntary movement, no seizures. NEURO-RELEVANT REVIEW OF SYSTEMS NEUROLOGY Aphasia Ataxia Balance impairment Cognitive/Memory impairment CVA/TIA Diplopia Dizziness Dysesthesia Dystonia Facial asymmetry Falls, unintended Fasciculation Gait disorder Headache/migraine Hearing impairment Hyperesthesia Hypoesthesia Inattentiveness Insomnia Involuntary movement/Tremor Major neurocognitive disorder (dementia) Memory impairment Multiple sclerosis Myasthenia Myopathy Narcolepsy Near-syncope Neuropathy Numbness Paresthesia Parkinsonism/Parkinson's disease Restless leg syndrome Seizures/epilepsy Speech Difficulty Syncope Tremor (Essential) Vestibular balance dysfunction Weaknesses ABNORMAL NEGATIVE CARDIOVASCULAR Angina Bradycardia Cardiac pacemaker Cardiac stent Cardiomegaly Claudication Coronary artery disease ECG, abnormal Heart attack Heart murmur Hypertension Irregular heart rhythm/fibrillation Palpitation Peripheral edema, pitting Peripheral vascular disease Tachycardia ABNORMAL NEGATIVE DERMATOLOGY NEGATIVE EAR, NOSE, & THROAT NEGATIVE ENDOCRINOLOGY NEGATIVE GASTROINTESTINAL NEGATIVE GENERAL NEGATIVE GENITOURINARY NEGATIVE GYNECOLOGY NEGATIVE HEMATOLOGY NEGATIVE MUSCULOSKELETAL Arthralgia Arthritis Back pain Back stiffness Cervicalgia Fibromyalgia Muscle cramps/spasm Myalgia Myopathy Nuchal rigidity Osteoarthritis ABNORMAL NEGATIVE NECK NEGATIVE OPHTHALMOLOGY NEGATIVE ORTHOPEDIC Deformities Fracture: Hip and femur Hip & knee & ankle injury Tendon injury Tumors Shoulder & Elbow & hand injury ABNORMAL NEGATIVE PSYCHIATRY/PSYCHOLOGY Alcohol use disorder Anxiety Behavioral disorder Bipolar disorder Depression Hallucination Hypersomnia Insomnia Irritability/agitation Mood disorder Nicotine dependence PTSD Sleep disturbance Suicidal Ideation ABNORMAL NEGATIVE PULMONARY NEGATIVE RHEUMATOLOGY Gout Lupus Osteoarthritis Osteoporosis Polymyalgia rheumatica Polymyositis Psoriasis arthritis Rheumatoid arthritis Scleroderma Sj gren's Syndrome Tendinitis Vasculitis ABNORMAL NEGATIVE SLEEP NEGATIVE SUPPLEMENTAL Vitamin D deficiency NEURO-RELEVANT PAST MEDICAL/SURGERY HISTORY NEURO-RELEVANT MEDICAL HISTORY NEUROLOGY Seizures Chronic insomnia CARDIOLOGY Hypertension ORTHOPEDIC LEFT fracture femur LEFT hip fracture NEURO-RELEVANT PAST SURGERY HISTORY NEUROLOGY None GYNECOLOGY Total hysterectomy OPTHALMOLOGY Eye surgery ORTHOPEDIC Hip fracture Vitamin D deficiency NEURO-RELEVANT MEDICATION/DRUG/OTC REVIEW NEURO-RELEVANT OUTPATIENT TREATMENT NEUROLOGY Aspirin 81 mg daily Dilantin 200 mg bid OPTHALMOLOGY Acetaminophen 500 mg prn Oxycodone 5 mg prn PSYCHIATRY Melatonin 5 mg qhs/temazepam 15 mg qhs Sertraline 100 mg qam RHEUMATOLOGY Fosamax 70 mg/week SUPPLEMENTAL Vitamin D2 50,000 units weekly DRUG ALLERGIES Bee Venom Anaphylaxis Lidocaine Shortness of breath Penicillin G Rash Penicillins Nausea Only Simvastatin Rash Sulfa Antibiotics Nausea Only Varenicline Nausea And Vomiting NEURO-RELEVANT SOCIAL HISTORY Currently smoking: Daily Currently vaping: No Current alcohol use: Not currently Current caffeine use: Not known. Current drug use non-medication: No ADDITIONAL: . Currently living in a nursing facility NEURO-RELEVANT RELEVANT FAMILY HISTORY Family history is significant: Stroke, heart disease, coronary artery disease. NEURO-RELEVANT NEURODIAGNOSTIC LAB RESULTS ELECTROLYTES PANEL Sodium: (N: 136-145) 134 Potassium: (N: 3.5-5.1) 3.6 RENAL PANEL BUN: (N: 9-23) 10 Creatinine: (N: 0.57-1.11) 0.44 GFR: (N: >60) >90 Total protein: (N: 6.4-8.3) 5.7 Albumin: (N: 3.5-5.0) 3.0 Calcium: (N: 8.8-10) 9.1 Magnesium: (N: 1.6-2.6) not available DIABETES PANEL Glucose: (N: 82-115) 106 HbA1c: (N: <5.7- <6.5) 4.3 HEPATIC PANEL Alkaline phosphatase: (N: 40-140) 190 AST: (N: <34) 26 ALT: (N: <30) 7 Total Bilirubin: (N: <1.2) 1.2 Lactic acid: 1.6 CARDIAC PANEL CK: (N: 30-185) Troponin HS serial baseline: (N: <14) <3 Troponin HS serial second: (N: <14) <3 NT PRO BNP: (N: <450) Protime: (N: 0.9-12) 10.9 INR: (N: 0.9-1.1) 1.0 APTT: (N: 20-30.5) 29.8 LIPID PANEL Triglyceride: (N: <150) 50 HDL: (N: >60) 72 LDL: (N: <100) 96 Cholesterol: (N: <200) 178 CBC WBC: (N: 3.6-10.7) 5.4 RBC: (N: M: 3.8-5.2) 3.10 Hemoglobin: (N: M: 12-17. F: 11.7-16.0) 10.7 Hematocrit: (N:35-47) 32.4 MCV: (N: 77-99) 104.5 MCH: (N: 26-34) 34.5 MCHC: (N: 30.5-36) 33.0 Platelet count: (N: 140-440) 204 MPV: (N: 9-12.7) 9.6 ANEMIA PANEL Vitamin B12: (N: 213-816) Pending Folate: (N: 7-31.4) Pending Vitamin D: (N: 30-100) Pending THYROID PANEL TSH: N: 0.35-4.94) not available MISCELLANEOUS Dilantin level: (N: 10-20) 49.6 Dilantin toxicity. Then 36.6 and today May 12:-33.2. URINALYSIS: Turbid with few bacteria Nitrite: Negative CT HEAD without contrast No acute intracranial lesion. Diffuse cortical atrophy. Chronic subcortical, periventricular white matter with small vessel ischemic changes. CT CERVICAL SPINE No evidence of acute fracture or traumatic subluxation of the cervical spine. Age indeterminant mild superior endplate compression fracture deformity T2. Trace of pleural thickening vs pleural effusion on the left. Partial visualization of 2.0 x 1.5 cm nodule left lung apex medially. Heterogeneous bulky thyroid gland with multiple nodules measuring up to at least 1.[address] THORACIC SPINE Superior endplate compression T2, age indeterminate. Osteopenia. Small left pleural effusion. 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 Left lung apex medial irregular 1.[address] LUMBAR No evidence of acute lumbar spine fracture or traumatic subluxation. Degenerative spondylosis lumbar spine with moderate to severe spinal stenosis at L3-L4, L4-L5 as well as moderate to severe bilateral foraminal stenosis with facet hypertrophy. 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 CHEST X-RAY No acute cardiopulmonary disease. X-RAY LEFT HAND AND RIGHT HIP No acute fractures or dislocation. Degenerative changes of the LEFT hand and wrist. Subtle lucency of the right proximal femur transcervical region which may reflect a nondisplaced fracture versus artifact. Redemonstration of the comminuted left proximal femur intertrochanteric fracture with avulsion of the lesser trochanter status post open reduction internal fixation with intramedullary ras and proximal interlocking screws (acute fracture 04/21/2025). EKG Sinus rhythm (68/min) LEFT anterior fascicular block. ROUTINE EEG/VIDEO Pending: Dilantin toxicity NEUROLOGICAL EXAMINATION Observation Objective - Phenytoin (Dilantin) level: elevated - No physical or neurologic examination findings reported in the transcript Mr. Alfaro is lying comfortably in bed, in no acute distress. Objective - Lab results: phenytoin (Dilantin) level 49.6 (reference <20; target 16-17) drawn approximately one month ago - Confusion noted during encounter - Impaired mobility and increased fall risk discussed; advised not to get up or move around unassisted - No additional physical or neurologic examination Level of cooperation Pleasant: Agreeable manners, & behavior. Cooperative: Willingness & ability to work in a common effort. Attitude Normal Behavior & psychomotor activity Lethargic: Facial expression Normal: Proper to the medical/neurologic situation. Speech Hypophonic Cognitive evaluation Memory: Recall of medical data: Impaired Attentive: Lethargic Orientation: 7 Date, Month, Year, Day, Place, City, and President of [facility]: Impaired CEREBELLAR FUNCTION No tremor. No extraneous movements. No dysmetria. Stance/Gait: Not evaluated CRANIAL NERVES II-XII: Normal NEUROMUSCULAR Tone: Normal for age. Wasting of the upper extremities: Absent in the upper extremities Wasting of the lower extremities: Absent in the lower extremities Distal extremities edema: None POWER UPPER: Attempt: Lethargic POWER LOWER: Attempt: Lethargic Moves all limbs spontaneously and purposefully. DEEP TENDON REFLEXES Biceps (C5-C6) R: 2+ L: 2+ Triceps (C7-C8) R: 2+ L: 2+ Patella (L3-L4) R: 2+ L: 2+ Ankle (S1-S2) R: 2+ L: 2+ Extensor Plantar Response R: Negative Extensor Plantar Response L: Negative SENSORY Sensation to light touch: Normal bilaterally NEUROLOGICAL DECISION MAKING PRIMARY NEUROLOGICAL COMPLAINT Altered mental status with dysphasia and right-sided facial droop. PRIMARY NEUROLOGICAL DIAGNOSIS E/M/C ETIOLOGY of COMPLIANT T42.0X1A Dilantin toxicity MANIFESTATION of COMPLIANT G31.84 Mild cognitive impairment of uncertain or unknown etiology COMORBIDITY ASSOCIATED WITH COMPLIANT E87.1 Hyponatremia E44.1 Mild protein-calorie malnutrition SECONDARY DIAGNOSIS CT imaging confirmation CT CERVICAL SPINE Partial visualization of 2.0 x 1.5 cm nodule left lung apex medially. Heterogeneous bulky thyroid gland with multiple nodules measuring up to at least 1.[address] THORACIC SPINE Superior endplate compression T2, age indeterminate. Osteopenia. Small left pleural effusion. 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 Left lung apex medial irregular 1.[address] LUMBAR No evidence of acute lumbar spine fracture or traumatic subluxation. Degenerative spondylosis lumbar spine with moderate to severe spinal stenosis at L3-L4, L4-L5 as well as moderate to severe bilateral foraminal stenosis with facet hypertrophy. 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 NEUROLOGICAL DIAGNOSIS ASSESSMENT & COMPLEXITIES (D/D) No clinical or neuroimaging evidence of acute cerebrovascular event. CLINICAL PRESENTATION & DECISION ANALYSIS/DIFFERENTIAL DIAGNOSIS ASSESSMENT 05-12-25 Ms. Alfaro presents with Dilantin toxicity secondary to a medication dosing error, as evidenced by persistently elevated Dilantin levels. She also reports smoking and use of a bedside commode for bathroom needs and describes sleeping through the previous night without issues. The primary neurologic complaint is Dilantin toxicity. Differential diagnosis for elevated Dilantin levels and associated symptoms includes medication dosing error, impaired hepatic metabolism, drug-drug interactions, and possible underlying neurologic conditions that may affect phenytoin metabolism or sensitivity. 05-11-25 Ms. Alfaro presents with acute confusion and a recent fall, both likely secondary to Dilantin toxicity, as evidenced by a serum phenytoin level of 49.6 (therapeutic range <20). Her seizure disorder is managed with phenytoin (Dilantin) 200 mg bid. DIFFERENTIAL DIAGNOSIS Differential diagnosis for confusion and fall includes Dilantin toxicity, Metabolic encephalopathy, Infection, Stroke, and other Medication effects, but the elevated Dilantin level and clinical context strongly support Dilantin toxicity as the primary cause. NEURO-DIAGNOSTICS REQUESTED Daily trough total Dilantin levels (stat) Inpatient EEG Vitamin B12/folate levels NEUROLOGY TREATMENT RECOMMENDATION/GOALS NEURO PHARMACOTHERAPY NEURO NON-PHARMACOTHERAPY 05-12-25 Continue close monitoring of Dilantin levels due to recent overdose from incorrect dosing. Advise to try to eat some food to support overall health and recovery during hospitalization. For Dilantin toxicity, the treatment plan is supportive care and monitoring until levels are normalized. 05-11-25 Temporarily discontinue Dilantin therapy Stop Dilantin administration until the daily serum levels decrease to the normal range. Once Dilantin levels have normalized, restart the medication at a reduced dose, decreasing from four capsules per day to three capsules per day to avoid future toxicity. Monitor for clinical improvement over the next three to four days as Dilantin levels decline. I will reassess Ms. Alfaro s clinical status tomorrow to evaluate progress and adjust management as needed. I advised strict fall precautions and instruct Ms. Alfaro not to get up or move around unassisted due to current neurological impairment and increased fall risk. I requested an inpatient EEG to evaluate for continued seizures. I also requested vitamin B12/folate levels for vitamin B12/folate deficiency NEURO-TREATMENT COMPLEXITIES/ADVERSE EFFECT(S) DRUG-DRUG INTERACTION Adverse effects of phenytoin toxicity include confusion, impaired coordination, increased risk of falls, and encephalopathy, as discussed. No other medications or drug-drug interactions are mentioned or recommended at this time. Adverse effects of phenytoin (Dilantin) may include ataxia, nystagmus, confusion, gastrointestinal symptoms, and potential cardiac arrhythmias at high levels. No other medications or drug-drug interactions are reported in the transcript. PROGNOSIS FOR NEUROLOGIC RECOVERY Neurological prognosis for recovery is excellent. NEUROLOGY REEVALUATION WITH DR. Camargo TIMELINE: I will re-evaluate Ms. Alfaro on MondayMay 13 during Neurology Rounds. 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 This thoroughness was essential for me to engage in a [id number] interview and conduct a focused neurological examination, aimed at better understanding Ms. Alfaro's neurologic complaints. During our discussion, I took the opportunity to explain the current diagnosis, detailing its development, potential alternative diagnoses, and various treatment options. I made sure to involve her in the decision-making process, discussing what we can anticipate as we proceed and ensuring she felt informed and comfortable with the neurological diagnosis and its underlying causes. Together, we carefully reviewed the results of the relevant neurodiagnostic tests, and I communicated the benefits and risks of the current neurologic management plan clearly and straightforwardly. I discussed the proposed care plan, ensuring it was at a level that she could understand. She voiced her agreement with the current neurological care. REFERRING PHYSICIAN: I updated the referring physician, & the treatment team with my Medical Decision Making. Please note With Ms. Alfaro s approval, I created this report using [employer] voice recognition system, [employer], and [employer]. I conducted an accurate and prompt marble rubber and a thorough editorial review. Acknowledging that some subtle contextual errors may still be present is essential. These errors can arise from the misrecognition of spoken words, which is common when integrating human voice with advanced digital technologies. This interaction can sometimes lead to misunderstandings or misinterpretations in the text. Please let me know if you notice any errors, discrepancies, or inconsistencies in this report. Your feedback is valuable in helping me maintain the quality and accuracy of the information presented. Thanks for your understanding and cooperation. Mikala Camargo MD Comprehensive Neurologist [phone] Associated Order(s): IP CONSULT TO NEUROLOGY NEUROLOGY INITIAL CONSULTATION DATE/TIME: 2024 [] PATIENT s NAME: MADAY ALFARO DATE OF : 42 AGE: 84 GENDER: Female ROOM: 251/A PHYSICIAN REQUESTING CONSULT: Dr. Bunn NEUROLOGIST: Mikala Camargo MD DATE OF ADMISSION: 05-10-25 REASON FOR NEUROLOGY CONSULTATION: Altered mental status with dysphasia and right-sided facial droop. HISTORY OF PRESENT ILLNESS ED HISTORY OF PRESENT ILLINESS Maday Alfaro who was admitted to the Emergency Department at [facility] on 05-10-25. She presented with altered mental status after a fall. ED vitals: BP: 107/61 HR: 67 RR: 16 O2 sat: 98 % HT: 66 ins Wt.: 122 Lbs. BMI: 20 (Obese Class: Normal) Ms. Alfaro cannot give me a neurological history. NEURO-RELEVANT SYMPTOM PROFILE Onset of symptoms: 05-10-25 Description of symptoms: Altered mental status with dysphasia and right-sided facial droop. Concern for a fall. Subjective Ms. Alfaro presents with confusion and a recent fall at the half-way. She expresses a strong desire to be active, stating readiness to get out and dance. She does not recall the fall or episodes of confusion. Currently Ms. Alfaro takes Dilantin 200 mg bid for seizure control, and she informed me that her Dilantin level was checked about a month ago, and states that no adjustment was made to her medication following the last Dilantin level. The main concerns we discussed include confusion, impaired memory of recent events, and ongoing seizure management. .[id number]] Negative acute neurologic symptoms: No headaches or head pain, no dizziness/vertigo, no lightheadedness or syncopal episodes, no diplopia or blurred vision, no visual impairment, no auditory impairment, no facial paresis or paralysis, no aphasia or dysarthria no dysphagia, no extremity paresis or paralysis, no extremity sensory deficit, no tremor, no involuntary movement, no seizures. NEURO-RELEVANT REVIEW OF SYSTEMS NEUROLOGY Aphasia Ataxia Balance impairment Cognitive/Memory impairment CVA/TIA Diplopia Dizziness Dysesthesia Dystonia Facial asymmetry Falls, unintended Fasciculation Gait disorder Headache/migraine Hearing impairment Hyperesthesia Hypoesthesia Inattentiveness Insomnia Involuntary movement/Tremor Major neurocognitive disorder (dementia) Memory impairment Multiple sclerosis Myasthenia Myopathy Narcolepsy Near-syncope Neuropathy Numbness Paresthesia Parkinsonism/Parkinson's disease Restless leg syndrome Seizures/epilepsy Speech Difficulty Syncope Tremor (Essential) Vestibular balance dysfunction Weaknesses ABNORMAL NEGATIVE CARDIOVASCULAR Angina Bradycardia Cardiac pacemaker Cardiac stent Cardiomegaly Claudication Coronary artery disease ECG, abnormal Heart attack Heart murmur Hypertension Irregular heart rhythm/fibrillation Palpitation Peripheral edema, pitting Peripheral vascular disease Tachycardia ABNORMAL NEGATIVE DERMATOLOGY NEGATIVE EAR, NOSE, & THROAT NEGATIVE ENDOCRINOLOGY NEGATIVE GASTROINTESTINAL NEGATIVE GENERAL NEGATIVE GENITOURINARY NEGATIVE GYNECOLOGY NEGATIVE HEMATOLOGY NEGATIVE MUSCULOSKELETAL Arthralgia Arthritis Back pain Back stiffness Cervicalgia Fibromyalgia Muscle cramps/spasm Myalgia Myopathy Nuchal rigidity Osteoarthritis ABNORMAL NEGATIVE NECK NEGATIVE OPHTHALMOLOGY NEGATIVE ORTHOPEDIC Deformities Fracture: Hip and femur Hip & knee & ankle injury Tendon injury Tumors Shoulder & Elbow & hand injury ABNORMAL NEGATIVE PSYCHIATRY/PSYCHOLOGY Alcohol use disorder Anxiety Behavioral disorder Bipolar disorder Depression Hallucination Hypersomnia Insomnia Irritability/agitation Mood disorder Nicotine dependence PTSD Sleep disturbance Suicidal Ideation ABNORMAL NEGATIVE PULMONARY NEGATIVE RHEUMATOLOGY Gout Lupus Osteoarthritis Osteoporosis Polymyalgia rheumatica Polymyositis Psoriasis arthritis Rheumatoid arthritis Scleroderma Sj gren's Syndrome Tendinitis Vasculitis ABNORMAL NEGATIVE SLEEP NEGATIVE SUPPLEMENTAL Vitamin D deficiency NEURO-RELEVANT PAST MEDICAL/SURGERY HISTORY NEURO-RELEVANT MEDICAL HISTORY NEUROLOGY Seizures Chronic insomnia CARDIOLOGY Hypertension ORTHOPEDIC LEFT fracture femur LEFT hip fracture NEURO-RELEVANT PAST SURGERY HISTORY NEUROLOGY None GYNECOLOGY Total hysterectomy OPTHALMOLOGY Eye surgery ORTHOPEDIC Hip fracture Vitamin D deficiency NEURO-RELEVANT MEDICATION/DRUG/OTC REVIEW NEURO-RELEVANT OUTPATIENT TREATMENT NEUROLOGY Aspirin 81 mg daily Dilantin 200 mg bid OPTHALMOLOGY Acetaminophen 500 mg prn Oxycodone 5 mg prn PSYCHIATRY Melatonin 5 mg qhs/temazepam 15 mg qhs Sertraline 100 mg qam RHEUMATOLOGY Fosamax 70 mg/week SUPPLEMENTAL Vitamin D2 50,000 units weekly DRUG ALLERGIES Bee Venom Anaphylaxis Lidocaine Shortness of breath Penicillin G Rash Penicillins Nausea Only Simvastatin Rash Sulfa Antibiotics Nausea Only Varenicline Nausea And Vomiting NEURO-RELEVANT SOCIAL HISTORY Currently smoking: Daily Currently vaping: No Current alcohol use: Not currently Current caffeine use: Not known. Current drug use non-medication: No ADDITIONAL: . Currently living in a nursing facility NEURO-RELEVANT RELEVANT FAMILY HISTORY Family history is significant: Stroke, heart disease, coronary artery disease. NEURO-RELEVANT NEURODIAGNOSTIC LAB RESULTS ELECTROLYTES PANEL Sodium: (N: 136-145) 134 Potassium: (N: 3.5-5.1) 3.6 RENAL PANEL BUN: (N: 9-23) 10 Creatinine: (N: 0.57-1.11) 0.44 GFR: (N: >60) >90 Total protein: (N: 6.4-8.3) 5.7 Albumin: (N: 3.5-5.0) 3.0 Calcium: (N: 8.8-10) 9.1 Magnesium: (N: 1.6-2.6) not available DIABETES PANEL Glucose: (N: 82-115) 106 HbA1c: (N: <5.7- <6.5) Pending HEPATIC PANEL Alkaline phosphatase: (N: 40-140) 190 AST: (N: <34) 26 ALT: (N: <30) 7 Total Bilirubin: (N: <1.2) 1.2 Lactic acid: 1.6 CARDIAC PANEL CK: (N: 30-185) Troponin HS serial baseline: (N: <14) <3 Troponin HS serial second: (N: <14) <3 NT PRO BNP: (N: <450) Protime: (N: 0.9-12) 10.9 INR: (N: 0.9-1.1) 1.0 APTT: (N: 20-30.5) 29.8 LIPID PANEL Triglyceride: (N: <150) 50 HDL: (N: >60) 72 LDL: (N: <100) 96 Cholesterol: (N: <200) 178 CBC WBC: (N: 3.6-10.7) 5.4 RBC: (N: M: 3.8-5.2) 3.10 Hemoglobin: (N: M: 12-17. F: 11.7-16.0) 10.7 Hematocrit: (N:35-47) 32.4 MCV: (N: 77-99) 104.5 MCH: (N: 26-34) 34.5 MCHC: (N: 30.5-36) 33.0 Platelet count: (N: 140-440) 204 MPV: (N: 9-12.7) 9.6 ANEMIA PANEL Vitamin B12: (N: 213-816) Pending Folate: (N: 7-31.4) Pending Vitamin D: (N: 30-100) Pending THYROID PANEL TSH: N: 0.35-4.94) not available MISCELLANEOUS Dilantin level: (N: 10-20) 49.6 Dilantin toxicity URINALYSIS: Turbid with few bacteria Nitrite: Negative CT HEAD without contrast No acute intracranial lesion. Diffuse cortical atrophy. Chronic subcortical, periventricular white matter with small vessel ischemic changes. CT CERVICAL SPINE No evidence of acute fracture or traumatic subluxation of the cervical spine. Age indeterminant mild superior endplate compression fracture deformity T2. Trace of pleural thickening vs pleural effusion on the left. Partial visualization of 2.0 x 1.5 cm nodule left lung apex medially. Heterogeneous bulky thyroid gland with multiple nodules measuring up to at least 1.[address] THORACIC SPINE Superior endplate compression T2, age indeterminate. Osteopenia. Small left pleural effusion. 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 Left lung apex medial irregular 1.[address] LUMBAR No evidence of acute lumbar spine fracture or traumatic subluxation. Degenerative spondylosis lumbar spine with moderate to severe spinal stenosis at L3-L4, L4-L5 as well as moderate to severe bilateral foraminal stenosis with facet hypertrophy. 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 CHEST X-RAY No acute cardiopulmonary disease. X-RAY LEFT HAND AND RIGHT HIP No acute fractures or dislocation. Degenerative changes of the LEFT hand and wrist. Subtle lucency of the right proximal femur transcervical region which may reflect a nondisplaced fracture versus artifact. Redemonstration of the comminuted left proximal femur intertrochanteric fracture with avulsion of the lesser trochanter status post open reduction internal fixation with intramedullary ras and proximal interlocking screws (acute fracture 04/21/2025). EKG Sinus rhythm (68/min) LEFT anterior fascicular block. ROUTINE EEG/VIDEO Pending: Dilantin toxicity NEUROLOGICAL EXAMINATION Observation Mr. Alfaro is lying comfortably in bed, in no acute distress. Objective - Lab results: phenytoin (Dilantin) level 49.6 (reference <20; target 16-17) drawn approximately one month ago - Confusion noted during encounter - Impaired mobility and increased fall risk discussed; advised not to get up or move around unassisted - No additional physical or neurologic examination Level of cooperation Pleasant: Agreeable manners, & behavior. Cooperative: Willingness & ability to work in a common effort. Attitude Normal Behavior & psychomotor activity Lethargic: Facial expression Normal: Proper to the medical/neurologic situation. Speech Hypophonic Cognitive evaluation Memory: Recall of medical data: Impaired Attentive: Lethargic Orientation: 7 Date, Month, Year, Day, Place, City, and President of [facility]: Impaired CEREBELLAR FUNCTION No tremor. No extraneous movements. No dysmetria. Stance/Gait: Not evaluated CRANIAL NERVES II-XII: Normal NEUROMUSCULAR Tone: Normal for age. Wasting of the upper extremities: Absent in the upper extremities Wasting of the lower extremities: Absent in the lower extremities Distal extremities edema: None POWER UPPER: Attempt: Lethargic POWER LOWER: Attempt: Lethargic Moves all limbs spontaneously and purposefully. DEEP TENDON REFLEXES Biceps (C5-C6) R: 2+ L: 2+ Triceps (C7-C8) R: 2+ L: 2+ Patella (L3-L4) R: 2+ L: 2+ Ankle (S1-S2) R: 2+ L: 2+ Extensor Plantar Response R: Negative Extensor Plantar Response L: Negative SENSORY Sensation to light touch: Normal bilaterally NEUROLOGICAL DECISION MAKING PRIMARY NEUROLOGICAL COMPLAINT Altered mental status with dysphasia and right-sided facial droop. PRIMARY NEUROLOGICAL DIAGNOSIS E/M/C ETIOLOGY of COMPLIANT T42.0X1A Dilantin toxicity MANIFESTATION of COMPLIANT G31.84 Mild cognitive impairment of uncertain or unknown etiology COMORBIDITY ASSOCIATED WITH COMPLIANT E87.1 Hyponatremia E44.1 Mild protein-calorie malnutrition SECONDARY DIAGNOSIS CT imaging confirmation CT CERVICAL SPINE Partial visualization of 2.0 x 1.5 cm nodule left lung apex medially. Heterogeneous bulky thyroid gland with multiple nodules measuring up to at least 1.[address] THORACIC SPINE Superior endplate compression T2, age indeterminate. Osteopenia. Small left pleural effusion. 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 Left lung apex medial irregular 1.[address] LUMBAR No evidence of acute lumbar spine fracture or traumatic subluxation. Degenerative spondylosis lumbar spine with moderate to severe spinal stenosis at L3-L4, L4-L5 as well as moderate to severe bilateral foraminal stenosis with facet hypertrophy. 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 NEUROLOGICAL DIAGNOSIS ASSESSMENT & COMPLEXITIES (D/D) No clinical or neuroimaging evidence of acute cerebrovascular event. CLINICAL PRESENTATION & DECISION ANALYSIS/DIFFERENTIAL DIAGNOSIS ASSESSMENT Ms. Alfaro presents with acute confusion and a recent fall, both likely secondary to Dilantin toxicity, as evidenced by a serum phenytoin level of 49.6 (therapeutic range <20). Her seizure disorder is managed with phenytoin (Dilantin) 200 mg bid. Visit diagnoses suggestions (1) - Epilepsy, unspecified, not intractable, without status epilepticus [G40 DIFFERENTIAL DIAGNOSIS Differential diagnosis for confusion and fall includes Dilantin toxicity, Metabolic encephalopathy, Infection, Stroke, and other Medication effects, but the elevated Dilantin level and clinical context strongly support Dilantin toxicity as the primary cause. NEURO-DIAGNOSTICS REQUESTED Daily trough total Dilantin levels (stat) Inpatient EEG Vitamin B12/folate levels NEUROLOGY TREATMENT RECOMMENDATION/GOALS NEURO PHARMACOTHERAPY NEURO NON-PHARMACOTHERAPY Temporarily discontinue Dilantin therapy Stop Dilantin administration until the daily serum levels decrease to the normal range. Once Dilantin levels have normalized, restart the medication at a reduced dose, decreasing from four capsules per day to three capsules per day to avoid future toxicity. Monitor for clinical improvement over the next three to four days as Dilantin levels decline. I will reassess Ms. Alfaro s clinical status tomorrow to evaluate progress and adjust management as needed. I advised strict fall precautions and instruct Ms. Alfaro not to get up or move around unassisted due to current neurological impairment and increased fall risk. I requested an inpatient EEG to evaluate for continued seizures. I also requested vitamin B12/folate levels for vitamin B12/folate deficiency NEURO-TREATMENT COMPLEXITIES/ADVERSE EFFECT(S) DRUG-DRUG INTERACTION Adverse effects of phenytoin toxicity include confusion, impaired coordination, increased risk of falls, and encephalopathy, as discussed. No other medications or drug-drug interactions are mentioned or recommended at this time. PROGNOSIS FOR NEUROLOGIC RECOVERY Neurological prognosis for recovery is excellent. NEUROLOGY REEVALUATION WITH DR. Camargo TIMELINE: I will re-evaluate Ms. Alfaro on May 12 during Neurology Rounds. 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 This thoroughness was essential for me to engage in a [id number]-[id number] interview and conduct a focused neurological examination, aimed at better understanding Ms. Alfaro's neurologic complaints. During our discussion, I took the opportunity to explain the current diagnosis, detailing its development, potential alternative diagnoses, and various treatment options. I made sure to involve her in the decision-making process, discussing what we can anticipate as we proceed and ensuring she felt informed and comfortable with the neurological diagnosis and its underlying causes. Together, we carefully reviewed the results of the relevant neurodiagnostic tests, and I communicated the benefits and risks of the current neurologic management plan clearly and straightforwardly. I discussed the proposed care plan, ensuring it was at a level that she could understand. She voiced her agreement with the current neurological care. REFERRING PHYSICIAN: I updated the referring physician, & the treatment team with my Medical Decision Making. Please note With Ms. Alfaro s approval, I created this report using [employer] voice recognition system, Su[employer]SpringCMbraden, and [employer]-engine pilot. I conducted an accurate and prompt marble rubber and a thorough editorial review. Acknowledging that some subtle contextual errors may still be present is essential. These errors can arise from the misrecognition of spoken words, which is common when integrating human voice with advanced digital technologies. This interaction can sometimes lead to misunderstandings or misinterpretations in the text. Please let me know if you notice any errors, discrepancies, or inconsistencies in this report. Your feedback is valuable in helping me maintain the quality and accuracy of the information presented. Thanks for your understanding and cooperation. Mikala Camargo MD Comprehensive Neurologist [phone] documented in this encounter [facility] 2025 History of Presen t illness Narrative Images from the original note were not included. OCCUPATIONAL THERAPY [facility] Treatment Note Name/MRN: Maday Alfaro ([id number]) Date of : 1940 Age: 85 y.o. Room/Bed: [facility] A Visit #: 3 out of 5 Discharge Recommendation: Alf Facility Equipment Needed: (at next level of care) Prior Level of Function Prior Level of ADL Function: Required Assist Prior Level of Mobility: Required Assist; Device: Rollator Prior Level of Transfers: Required Assist Assessment Pt tolerated session fairly well, demo improvement from previous session. Pt completed bed mobility and standing pericare at Min A. Pt completed STS, BSC transfer, and stand step transfer at Mod A. Pt is progressing with POC but is still below baseline and is a high fall risk. Pt would benefit from continued OT to improve activity tolerance, balance, and strength needed for improved occupational performance. Pt is recommended for SNF at D/C Subjective Pt supine in bed, pleasant and agreeable. Per RN, pt okay to see Vitals 114/80 Pain: Mcqueen-Pelletier Pain Ratin = Hurts little more Pain Location: above L knee Medical Precautions: No active isolations Proper PPE donned/doffed in accordance with facility standards. Fall Risk: Bolivar Fall Risk Score: 85 (High Risk) Precautions/Restrictions: Right LE Weight Bearing: Weight Bearing As Tolerated Left LE Weight Bearing: Weight Bearing As Tolerated Lines/Drains/Airways: PIV, purewick Fall Precautions Family/Caregiver Present: none Objective ADLs Toileting: Min Assist Pt voided bowel and bladder at BSC level. Pt completed standing ant/post pericare with unilateral UE support at Min A. Pt demo general instability, assist needed for standing balance and ensuring cleanliness at posterior. Increased time needed Bed Mobility Supine to sit: Min Assist Scooting: Min Assist HOB Elevated Use of bed rail(s) Pt completed supine to sit with HOB elevated and use of bed features at Min A. Pt required significant increased time and reliance on bed features. Min A needed to scoot to EOB Transfers/Mobility Sit to stand: Mod Assist Stand to sit: Mod Assist, Pt completed STS from EOB with FWW at Mod A. Pt required VC for BUE placement, demo good teachback. Stand step: Min Assist, Pt completed stand step transfer from EOB to BSC, from BSC to recliner with FWW at Min A. Pt demo heavy reliance on FWW and significant increased time. Bedside commode: Mod Assist, Pt completed BSC transfer with use of jen arm rests at Mod A. Pt required VC for BUE placement, demo good teachback. Sitting balance: SBA Standing balance: Min Assist Pt maintains stand with FWW at Min A. Pt demo heavy reliance on FWW Device(s) used: Front wheeled walker Cognition - Safety judgement: good awareness of safety precautions WFL Plan Continue acute OT per plan of care. Safety/Education Safety Safety Devices in place: All fall risk precautions in place, call light within reach, left in chair, gait belt, patient at risk for falls, nurse notified, and no alarms engaged upon entry Restraints: No Education Education Given To: patient Education Provided: OT Role, Plan of Care, Precautions, ADL Adaptive Strategies, Transfer Training, Equipment, Fall Prevention Education, and Discharge Recommendations Education Method: Verbal, Demonstration, and Teach Back Barriers to Learning: None Education Outcome: Verbalized Understanding, Demonstrated Understanding, and Continued Education Needed AM-PAC AM-PAC Inpatient Daily Activity Raw Score: 16 ADL Inpatient CMS G-Code Modifier: CK Goals Patient Stated Goal: to go home Encounter Problems Encounter Problems (Active) Balance Patient will maintain dynamic standing balance for >3 minutes with min assist in order to demonstrate decreased risk of falling. (Progressing) Start: 05/12/25 Expected End: 05/26/25 Mobility Patient will demonstrate short functional ambulation with FWW and min A (Not Addressed) Start: 05/12/25 Expected End: 05/26/25 Transfers Patient will complete functional transfer with rolling walker with min assist in order to prepare for ambulation. (Progressing) Start: 05/12/25 Expected End: 05/26/25 Patient will perform bed mobility with min assist in order to improve independence and prepare for out of bed mobility. (Goal Met) Start: 05/12/25 Expected End: 05/26/25 Resolved: 05/16/25 Encounter Problems (Resolved) Toileting Patient will complete toileting tasks at bedside commode with min assist. (Goal Met) Start: 05/12/25 Expected End: 05/26/25 Resolved: 05/16/25 Therapy Time Individual Co-treatment Time In 1042 Time Out 1108 Minutes 26 Timed Code Treatment Minutes: 26 Minutes (1 Ther Act, 1 ADL) LUIGI Dyer Cosigned by Haile Figueroa OT at 2025 4:11 PM EDT Nutrition- patient is being discharged. She was consuming strawberry Glucerna shake(220 ary, 10 gm pro/serving). Consuming 50-75% of meals and ONS. Continue regular diet Images from the original note were not included. PHYSICAL THERAPY [facility] Treatment Note Name/MRN: Maday Alfaro ([id number]) Date of : 1940 Age: 85 y.o. Room/Bed: B2-251/B2-251 A Visit #: 2 out of 5 visits Discharge Recommendation: Alf Facility Equipment Needed: No Assessment Pt demonstrates decreased functional mobility with continued need for assist and directions to complete functional movements. Pt tolerates minimal sitting time with reports of dizziness with minimal BP drop with activity. Pt will continue to benefit from further skilled therapy as recommended to further improve functional status Subjective Pt agreeable to therapy. Reports up most of night Vitals Pre treatment BP 141/97 HR 72 supine Sitting 131/90 75 dizzy Pain: Pt denies any current pain. Medical Precautions: No active isolations Proper PPE donned/doffed in accordance with facility standards. Fall Risk: Bolivar Fall Risk Score: 85 (High Risk) Precautions/Restrictions: Right LE Weight Bearing: Weight Bearing As Tolerated Left LE Weight Bearing: Weight Bearing As Tolerated Lines/Drains/Airways: PIV, purewick Fall Precautions Overall Cognitive Status: Exceptions - Following commands: follows one step commands with increased time and follows one step commands with repetition - Problem solving: assistance required to identify errors made and assistance required to correct errors made - Insights: decreased awareness of deficits - Initiation: requires cues for some Overall Orientation Status: Oriented to Place, Oriented to Time, and Oriented to Person Family/Caregiver Present: none Objective Bed Mobility Supine to sit: Mod Assist Sit to supine: Mod Assist Pt required assist to mobilize LE's and hips to EOB and then cueing to rotate trunk and assist to elevate to sitting position. Pt returns to supine with assist to guide trunk and elevate LE's onto bed. Dependent assist to scoot to HOB Transfers/Mobility Pt unable to attempt secondary to feeling dizzy in sitting that resolve upon return to supine Exercises Exercises Knee Long Arc Quad: 1 set / 10 reps in sitting B LE individually with increased effort on L LE Ankle Pumps: 1 set / 10 reps in sitting B LE for dorsi and plantar flexion Comments: Exercises intitated in prep for mobility with pt demonstrating increased difficulty with mobilizing L LE. Reports no pain but dizziness with inability to attempt further sitting activities. BP checked with minimal drop Plan Continue acute PT per plan of care. Safety/Education Safety Safety Devices in place: All fall risk precautions in place, call light within reach, left in bed, patient at risk for falls, and nurse notified Restraints: No Education Education Given To: patient Education Provided: PT Role, PT Goals, Plan of Care, Home Exercise Program, and Transfer Training Education Method: Verbal, Demonstration, and Teach Back Barriers to Learning: Cognition Education Outcome: Continued Education Needed Outcome Measures AM-PAC AM-PAC Inpatient Mobility Raw Score (No Stairs) : 7 JH-HLM JH-HLM Scale: Sat at edge of bed Goals Patient Stated Goal: None stated Encounter Problems Encounter Problems (Active) Exercise Patient will complete lower extremity exercises for 1-2 sets / 10-15 reps in order to improve strength and activity tolerance for mobility. (Progressing) Start: 05/12/25 Expected End: 05/24/25 Mobility Patient will ambulate 50 feet with CGA and least restrictive device in order to improve safety and independence with mobility. (Not Addressed) Start: 05/12/25 Expected End: 05/24/25 Safety Patient will recall/demonstrate weight bearing and/or ROM restrictions with all functional mobility in order to promote healing and safety with functional tasks. (Progressing) Start: 05/12/25 Expected End: 05/24/25 Transfers Patient will perform bed mobility with SBA in order to improve independence and prepare for out of bed mobility. (Progressing) Start: 05/12/25 Expected End: 05/24/25 Patient will complete functional transfer with least restrictive device with CGA in order to prepare for ambulation. (Not Addressed) Start: 05/12/25 Expected End: 05/24/25 Therapy Time Individual Co-treatment Time In 0730 Time Out 0750 Minutes 20 Timed Code Treatment Minutes: 15 Minutes (ther act) Torrie Glasgow PTA Cosigned by Tonny Brian PT at 2025 8:52 AM EDT Images from the original note were not included. OCCUPATIONAL THERAPY [facility] Treatment Note Name/MRN: Maday Alfaro ([id number]) Date of : 1940 Age: 84 y.o. Room/Bed: B2251/[facility]251 A Visit #: 2 out of 5 Discharge Recommendation: Alf Facility Equipment Needed: (at next level of care) Prior Level of Function Prior Level of ADL Function: Required Assist Prior Level of Mobility: Required Assist; Device: Rollator Prior Level of Transfers: Required Assist Assessment Pt tolerated session fair, continues to improve with OT POC. Pt completed bed mobility and x2 STS at Mod A. Pt completed x2 stand step transfers , UE dressing, and bed mobility at Min A. Pt is progressing with POC but is still below baseline and is a high fall risk. Pt would benefit from continued OT to improve activity tolerance, balance, and strength needed for improved occupational performance. Pt is recommended for SNF at D/C Subjective Pt supine in bed, pleasant and agreeable Pt initially agreeable to stay in the recliner, upon learning that this therapist would not be assisting her return to bed, pt requesting to return to bed now. Pain: Mcqueen-Pelletier Pain Ratin = Hurts little more Pain Location: LLE Medical Precautions: No active isolations Proper PPE donned/doffed in accordance with facility standards. Fall Risk: Bolivar Fall Risk Score: 85 (High Risk) Precautions/Restrictions: Right LE Weight Bearing: Weight Bearing As Tolerated Left LE Weight Bearing: Weight Bearing As Tolerated Lines/Drains/Airways: PIV, purewick Fall Precautions Family/Caregiver Present: none Objective ADLs UE Dressing: Min Assist Pt gown soiled at start of session. Pt required Min A to doff/don gown while seated EOB, assist needed for BUE placement and sleeve management. Bed Mobility Supine to sit: Min Assist Sit to supine: Min Assist HOB Elevated Use of bed rail(s) Pt completed supine to/from sit with HOB elevated, use of bed features, and Min A for BLE and trunk management. Pt denied dizziness but required significant increased time to complete. Transfers/Mobility Sit to stand: Mod Assist Stand to sit: Mod Assist, Pt completed x2 STS from EOB/recliner with FWW at Mod A. Pt required VC for BUE placement and anterior WS, demo good teachback. Pt very slow to rise, initially reports dizziness but resolved quickly Stand step: Min Assist, Pt completed stand step transfer from EOB to/from recliner with FWW at Min A. Pt demo heavy reliance on FWW and required increased time. Sitting balance: SBA Standing balance: Min Assist Functional mobility: Min Assist Pt completed lateral steps to HOB with anterior support at Min A. Pt demo decreased step length and increased instability. Device(s) used: Front wheeled walker Cognition - Safety judgement: decreased awareness of need for assistance and decreased awareness of need for safety - Insights: decreased awareness of deficits WFL Plan Continue acute OT per plan of care. Safety/Education Safety Safety Devices in place: All fall risk precautions in place, call light within reach, left in bed, gait belt, patient at risk for falls, nurse notified, and no alarms engaged upon entry Restraints: No Education Education Given To: patient Education Provided: OT Role, Plan of Care, Precautions, ADL Adaptive Strategies, Transfer Training, Equipment, Fall Prevention Education, and Discharge Recommendations Education Method: Verbal, Demonstration, and Teach Back Barriers to Learning: None Education Outcome: Verbalized Understanding, Demonstrated Understanding, and Continued Education Needed AM-PAC AM-PAC Inpatient Daily Activity Raw Score: 15 ADL Inpatient CMS G-Code Modifier: CK Goals Patient Stated Goal: to go home Encounter Problems Encounter Problems (Active) Balance Patient will maintain dynamic standing balance for >3 minutes with min assist in order to demonstrate decreased risk of falling. (Progressing) Start: 05/12/25 Expected End: 05/26/25 Mobility Patient will demonstrate short functional ambulation with FWW and min A (Not Addressed) Start: 05/12/25 Expected End: 05/26/25 Toileting Patient will complete toileting tasks at bedside commode with min assist. (Not Addressed) Start: 05/12/25 Expected End: 05/26/25 Transfers Patient will complete functional transfer with rolling walker with min assist in order to prepare for ambulation. (Progressing) Start: 05/12/25 Expected End: 05/26/25 Patient will perform bed mobility with min assist in order to improve independence and prepare for out of bed mobility. (Progressing) Start: 05/12/25 Expected End: 05/26/25 Therapy Time Individual Co-treatment Time In 1323 Time Out 1405 Minutes 42 Timed Code Treatment Minutes: 42 Minutes (3 Ther Act) LUIGI Dyer Cosigned by Haile Figueroa OT at 05/15/2025 3:22 PM EDT Hospitalist Progress Note 05/15/[id number]: Please page me ([phone]) for patient care issues. [phone]: Please page [facility] Hospitalist for any issues. Subjective: Admit Date: 05/10/2025 PCP: CHRISTIAN HARRISON NP Room#: B2-251/B2-251 A Interval History: No overnight issues. She continues to do good with no new complaints. Denies chest pain or sob. No abdominal pain, nausea, vomiting. No fevers or chills. Her daughter is at bedside today. Adult diet Regular @[id number]@ 24HR INTAKE/OUTPUT: Intake/Output Summary (Last 24 hours) at 05/15/2025 1009 Last data filed at 05/15/2025 0848 Gross per 24 hour Intake 590 ml Output 100 ml Net 490 ml Past Medical History: Medical History[1] LABS: CBC: Recent Labs 05/13/25 0507 05/14/2535805/15/25412 WBC 4.1 5.9 5.0 RBC 3.03* 2.99* 2.88* HGB 10.5* 10.5* 10.0* HCT 31.5* 30.7* 33.1* MCV 104.0* 102.7* 114.9* RDW 17.0* 16.9* 16.9* PLT 192 200 172 BMP: Recent Labs 05/13/25 05005/14/2535805/15/25412 NA 135* 133* 134* K 3.1* 3.2* 3.6 CL 104 104 105 CO2 23 21* 20* BUN 7* 11 14 CREATININE 0.41* 0.48* 0.44* GLUCOSE 93 102 92 CALCIUM 8.8 9.1 8.7* ANIONGAP 8 8 9 LIVER PROFILE: Recent Labs 05/13/25 05005/14/2535805/15/25412 AST 21 20 25 ALT 6 <6 7 BILITOT 1.0 1.1 0.9 ALKPHOS 181* 171* 161* PROT 5.2* 5.1* 5.0* PT/INR: No results for input(s): PROTIME, INR in the last 72 hours. CARDIAC ENZYMES: No results for input(s): TROPONINI in the last 72 hours. Procalcitonin: No results found for: PROCAL COVID-19 PCR: No results for input(s): COVID19 in the last 72 hours. Objective: Vitals: BP 142/85 (BP Location: Right arm, Patient Position: Lying) Pulse 72 Temp 36.3 C (97.3 F) (Temporal) Resp 20 Ht 5' 6 (1.676 m) Wt 135 lb 9.6 oz (61.5 kg) Comment: bed scale SpO2 97% BMI 21.89 kg/m Pulse Ox: SpO2 Av.3 % Min: 91 % Max: 97 % Supplemental O2: General appearance: No apparent distress, appears stated age, HEENT: Eyes: No scleral icterus Oral: Tongue is semi-moist Cardiovascular: S1/S2 heard, RRR Respiratory: Clear to auscultation bilaterally Abdomen: Soft, non-tender, non-distended bowel sounds positive Musculoskeletal: No obvious deformities seen Skin: No visible rashes or lesions. Medications: Continuous Meds[2] Scheduled Meds[3] Assessment Acute, acute on chronic, unstable/uncontrolled chronic problems/diagnoses: # Altered mental status secondary to Dilantin unintentional overdose - seen by Neurology Dr. Puga who states Dilantin toxicity due to dosing error (was on 400 mg PO BID _at the facility, Dr. Bunn called and asked - they had the wrong dose being given) . MRI showed low suspicion for stroke. Resolved now and back to baseline. # Seizure history - Dilantin now resumed at correct dosage of 200 mg PO BID # Recent left hip fracture - PT and OT (cleared for therapy per Ortho Dr. Meng after follow up XR's were done here - I discussed results with him through epic chat with OT). Yeni was removed in ED. # Delirium - no hx of dementia Monitor melatonin nightly Tenexapam restarted - given risk of withdrawal and more alert will restart as needed for sleeping, do not want her to go Geriatrics consultation reviewed # Hyponatremia - mild, monitor # Hypokalemia - replaced # Macrocytic anemia # Parxosymal Atrial fibrillation Has a 30 day event monitor, not in Afib at this time, and not on any OAC # Right hip pain - XR inconclusive recommending CT - CT showing no evidence of fracture, diffuse osteopenia # Severe malnutrition Stable chronic problems affecting care, new non-acute diagnoses: # Chronic HTN # Hx of seizures (see above) Plan - unhold Dilantin today as planned, as dilantin level is less than 10 - PT/OT recommending SNF. Referrals being sent per [facility]. She is medically cleared to go back to [facility] once approved. - check daily labs including daily Dilantin level. - spoke with daughter at bedside again today. She has been updated with plan Extended Emergency Contact Information Primary Emergency Contact: Ed Villela Mobile Relation: Grandchild Pharmacy Affairs Assistant needed? No Secondary Emergency Contact: Jono Fragoso Mobile Relation: Son Heron Glover MD Division of Hospitalist Medicine Inpatient Medical Services/[facility] PAGER: Epic chat [1] Past Medical History: Diagnosis Date Hypertension Seizures (HCC) [2] [3] aspirin, 81 mg, Oral, Daily Or aspirin, 300 mg, Rectal, Daily atorvastatin, 40 mg, Oral, Nightly enoxaparin, 40 mg, SubCUTAneous, Daily folic acid, 1 mg, Oral, Daily influenza, 0.5 mL, IntraMUSCular, Once melatonin, 5 mg, Oral, Nightly [Held by provider] phenytoin ER, 200 mg, Oral, BID sertraline, 100 mg, Oral, Daily sodium chloride 0.9%, 5-40 mL, IntraVENous, q12h stomahesive in petrolatum, , Topical, TID Images from the original note were not included. [facility] [facility] Treatment Note Name/MRN: Maday Alfaro ([id number]) Date of : 1940 Age: 84 y.o. Room/Bed: B2-251/B2-251 A Visit #: 1 out of 5 Discharge Recommendation: Alf Facility Equipment Needed: (at next level of care) Prior Level of Function Prior Level of ADL Function: Required Assist Prior Level of Mobility: Required Assist; Device: Rollator Prior Level of Transfers: Required Assist Assessment Pt tolerated session fair, demo improvement from previous session. Pt completed bed mobility and STS at Mod A. Pt completed stand step transfer with FWW and seated grooming at EOB at Min A. Pt is progressing with POC but is still below baseline and is a high fall risk. Pt would benefit from continued OT to improve activity tolerance, balance, and strength needed for improved occupational performance. Pt is recommended for SNF at D/C Subjective Pt supine in bed, pleasant and agreeable. Per RN, pt okay to see Per secure chat with Dr Meng pertaining to the various imaging and femur x-ray, pt okay for WBAT and no ROM restrictions Pain: Mcqueen-Pelletier Pain Ratin = Hurts a little bit Pain Location: LLE Medical Precautions: No active isolations Proper PPE donned/doffed in accordance with facility standards. Fall Risk: Bol[place]ar Fall Risk Score: 110 (High Risk) Precautions/Restrictions: Right LE Weight Bearing: Weight Bearing As Tolerated Left LE Weight Bearing: Weight Bearing As Tolerated Lines/Drains/Airways: PIV, purewick Fall Precautions Family/Caregiver Present: none Objective ADLs Grooming: Min Assist, after setup UE Dressing: Min Assist Pt completed oral hygiene while seated EOB with Min A after set up. Pt required assist for managing containers and maintaining sitting balance. Pt demo increased retro lean throughout. Pt able to remove toothpaste cap with increased time Pt required Min A for adjusting gown and properly managing sleeve, partially removed at start of session Bed Mobility Supine to sit: Mod Assist Scooting: Mod Assist HOB Elevated Use of bed rail(s) Pt completed supine to sit with HOB elevated and use of bed features at Mod A. Pt required increased time and VC for BUE placement. Pt attempted to scoot to EOB to prepare for transfers, required Mod A for completion Transfers/Mobility Sit to stand: Mod Assist Stand to sit: Mod Assist, Pt completed STS from EOB with FWW at Mod A. Pt required VC for BUE placement, demo good teachback. Pt slow to rise and required VC for anterior WS, denied dizziness. Stand step: Min Assist, Pt completed stand step transfer from EOB to recliner with FWW at Min A. Pt demo heavy reliance on FWW and decreased foot clearance. Sitting balance: SBA, Min Assist Standing balance: Min Assist Device(s) used: Front wheeled walker Cognition - Initiation: requires cues for some - Sequencing: requires cues for some Exceptions Plan Continue acute OT per plan of care. Safety/Education Safety Safety Devices in place: All fall risk precautions in place, call light within reach, left in chair, gait belt, patient at risk for falls, and nurse notified Restraints: No Education Education Given To: patient Education Provided: OT Role, Plan of Care, Precautions, ADL Adaptive Strategies, Transfer Training, Equipment, Fall Prevention Education, and Discharge Recommendations Education Method: Verbal, Demonstration, and Teach Back Barriers to Learning: None Education Outcome: Verbalized Understanding, Demonstrated Understanding, and Continued Education Needed AM-PAC AM-PAC Inpatient Daily Activity Raw Score: 15 ADL Inpatient CMS G-Code Modifier: CK Goals Patient Stated Goal: to go home Encounter Problems Encounter Problems (Active) Balance Patient will maintain dynamic standing balance for >3 minutes with min assist in order to demonstrate decreased risk of falling. (Progressing) Start: 05/12/25 Expected End: 05/26/25 Mobility Patient will demonstrate short functional ambulation with FWW and min A (Not Addressed) Start: 05/12/25 Expected End: 05/26/25 Toileting Patient will complete toileting tasks at bedside commode with min assist. (Not Addressed) Start: 05/12/25 Expected End: 05/26/25 Transfers Patient will complete functional transfer with rolling walker with min assist in order to prepare for ambulation. (Progressing) Start: 05/12/25 Expected End: 05/26/25 Patient will perform bed mobility with min assist in order to improve independence and prepare for out of bed mobility. (Progressing) Start: 05/12/25 Expected End: 05/26/25 Therapy Time Individual Co-treatment Time In 1316 Time Out 1341 Minutes 25 Timed Code Treatment Minutes: 25 Minutes (1 Ther Act, 1 ADL) LUIGI Dyer Cosigned by Haile Figueroa OT at 05/14/2025 3:33 PM EDT Images from the original note were not included. PHYSICAL THERAPY [facility] Treatment Note Name/MRN: Maday Alfaro ([id number]) Date of : 1940 Age: 84 y.o. Room/Bed: B2251/B2251 A Visit #: 1 out of 5 Discharge Recommendation: Alf Facility Equipment Needed: No Assessment Patient with slow progress towards goals. Patient performs bed mobility with mod assist Patient with decreased activity tolerance and strength requiring assistance with functional mobility. Patient will benefit from continued therapy services. Recommend SNF upon discharge to return to [facility]. Subjective Patient agrees to participate in therapy. Per nursing, ok to participate. Pain: patient reports no pain Medical Precautions: No active isolations Proper PPE donned/doffed in accordance with facility standards. Fall Risk: Bol[place]ar Fall Risk Score: 85 (High Risk) Precautions/Restrictions: Right LE Weight Bearing: Weight Bearing As Tolerated Left LE Weight Bearing: Weight Bearing As Tolerated Lines/Drains/Airways: PIV, purewick Fall Precautions Overall Cognitive Status: Exceptions - Following commands: follows one step commands consistently and follows multi-step commands with increased time - Memory: decreased recall of recent events - Problem solving: assistance required to implement solutions - Initiation: requires cues for some Overall Orientation Status: Oriented to Place, Oriented to Time, and Oriented to Person Family/Caregiver Present: none Objective Bed Mobility Supine to sit: Mod Assist Sit to supine: Mod Assist Patient requires mod assist for trunk control and BLE management performing supine to sit and sit to supine. Mod assist required to scoot to edge of bed. Patient presents with posterior and lean lean requiring mod assist to correct., Transfers not attempted for safety. Exercises Exercises Quad Sets: supine BLE 10 x 1 Heelslides: supine BLE 10 x 1 Gluteal Sets: supine 10 x 1 Knee Short Arc Quad: supine BLE 10 x 1 Ankle Pumps: supine BLE 10 x 1 Exercises performed to increase strength and activity tolerance for improved mobility. Verbal cues and visual demonstration provided to perform with proper technique for optimal benefits. Patient performs with good technique. Plan Continue acute PT per plan of care. Safety/Education Safety Safety Devices in place: All fall risk precautions in place, call light within reach, left in bed, bed alarm in place, patient at risk for falls, and nurse notified Restraints: No Education Education Given To: patient Education Provided: PT Role and PT Goals Education Method: Verbal Barriers to Learning: None Education Outcome: Verbalized Understanding Outcome Measures AM-PAC AM-PAC Inpatient Mobility Raw Score (No Stairs) : 11 JH-HLM JH-HLM Scale: Sat at edge of bed Goals Patient Stated Goal: none stated Encounter Problems Encounter Problems (Active) Exercise Patient will complete lower extremity exercises for 1-2 sets / 10-15 reps in order to improve strength and activity tolerance for mobility. (Initiated) Start: 05/12/25 Expected End: 05/24/25 Mobility Patient will ambulate 50 feet with CGA and least restrictive device in order to improve safety and independence with mobility. (Not Addressed) Start: 05/12/25 Expected End: 05/24/25 Safety Patient will recall/demonstrate weight bearing and/or ROM restrictions with all functional mobility in order to promote healing and safety with functional tasks. (Progressing) Start: 05/12/25 Expected End: 05/24/25 Transfers Patient will perform bed mobility with SBA in order to improve independence and prepare for out of bed mobility. (Progressing) Start: 05/12/25 Expected End: 05/24/25 Patient will complete functional transfer with least restrictive device with CGA in order to prepare for ambulation. (Not Addressed) Start: 05/12/25 Expected End: 05/24/25 Therapy Time Individual Co-treatment Time In 1027 Time Out 1040 Minutes 13 Timed Code Treatment Minutes: 13 Minutes (ther act x 1) Keya Slater PTA Cosigned by Tonny Brian PT at 05/14/2025 1:51 PM EDT Hospitalist Progress Note 05/14/2025 [id number]: Please page me ([phone]) for patient care issues. [phone]: Please page [facility] Hospitalist for any issues. Subjective: Admit Date: 05/10/2025 PCP: CHRISTIAN HARRISON NP Room#: B2-251/B2-251 A Interval History: No overnight issues. Denies chest pain or sob. No abdominal pain, nausea, vomiting. No fevers or chills. States she is doing good. Her son is at bedside today. Adult diet Regular @[id number]@ 24HR INTAKE/OUTPUT: Intake/Output Summary (Last 24 hours) at 05/14/2025 0948 Last data filed at 05/14/2025 0436 Gross per 24 hour Intake 8169 ml Output 750 ml Net 7419 ml Past Medical History: Medical History[1] LABS: CBC: Recent Labs 05/12/25 0938 05/13/25 0507 05/14/25 0359 WBC 4.6 4.1 5.9 RBC 3.22* 3.03* 2.99* HGB 11.2* 10.5* 10.5* HCT 33.9* 31.5* 30.7* MCV 105.3* 104.0* 102.7* RDW 17.2* 17.0* 16.9* PLT 164 192 200 BMP: Recent Labs 05/12/25 0938 05/13/25 0507 05/14/25 0359 NA 133* 135* 133* K 3.6 3.1* 3.2* CL 103 104 104 CO2 20* 23 21* BUN 9 7* 11 CREATININE 0.44* 0.41* 0.48* GLUCOSE 109 93 102 CALCIUM 9.0 8.8 9.1 ANIONGAP 10 8 8 LIVER PROFILE: Recent Labs 05/12/25 0938 05/13/25 0507 05/14/25 0359 AST 23 21 20 ALT 6 6 <6 BILITOT 1.2* 1.0 1.1 ALKPHOS 193* 181* 171* PROT 5.7* 5.2* 5.1* PT/INR: No results for input(s): PROTIME, INR in the last 72 hours. CARDIAC ENZYMES: No results for input(s): TROPONINI in the last 72 hours. Procalcitonin: No results found for: PROCAL COVID-19 PCR: No results for input(s): COVID19 in the last 72 hours. Objective: Vitals: BP 117/94 (BP Location: Left arm, Patient Position: Lying) Pulse 68 Temp 36 C (96.8 F) (Temporal) Resp 20 Ht 5' 6 (1.676 m) Wt 129 lb 6.4 oz (58.7 kg) Comment: bed scale SpO2 98% BMI 20.89 kg/m Pulse Ox: SpO2 Av % Min: 96 % Max: 98 % Supplemental O2: General appearance: No apparent distress, appears stated age, HEENT: Eyes: No scleral icterus Oral: Tongue is semi-moist Cardiovascular: S1/S2 heard, RRR Respiratory: Clear to auscultation bilaterally Abdomen: Soft, non-tender, non-distended bowel sounds positive Musculoskeletal: No obvious deformities seen Skin: No visible rashes or lesions. Medications: Continuous Meds[2] Scheduled Meds[3] Assessment Acute, acute on chronic, unstable/uncontrolled chronic problems/diagnoses: # Altered mental status secondary to Dilantin unintentional overdose - seen by Neurology Dr. Puga who states Dilantin toxicity due to dosing error (was on 400 mg PO BID _at the facility, Dr. Bunn called and asked - they had the wrong dose being given) . MRI showed low suspicion for stroke. # Seizure history - continue to hold Dilantin with plans to resume at 200 mg PO BID once dilantin level is less than 10 (was on 400 mg PO BID _at the facility) # Recent left hip fracture - PT and OT. [place] was removed in ED # Delirium - no hx of dementia Monitor melatonin nightly Tenexapam restarted - given risk of withdrawal and more alert will restart as needed for sleeping, do not want her to go Geriatrics consultation reviewed # Hyponatremia - mild, monitor # Macrocytic anemia # Parxosymal Atrial fibrillation Has a 30 day event monitor, not in Afib at this time, and not on any OAC # Right hip pain - XR inconclusive recommending CT - CT showing no evidence of fracture, diffuse osteopenia Stable chronic problems affecting care, new non-acute diagnoses: # Chronic HTN # Hx of seizures (see above) Plan - stop IVF - replace potassium - continue to hold Dilantin with plans to resume at 200 mg PO BID once dilantin level is less than 10 (down to 15.9 today so likely will resume tomorrow) - PT/OT recommending SNF. Referrals being sent per TCC. - check daily labs including daily Dilantin level. - Spoke with daughter at bedside yesterday and with son today at bedside. Extended Emergency Contact Information Primary Emergency Contact: Ed Villela Mobile Relation: Grandchild Pharmacy Affairs Assistant needed? No Secondary Emergency Contact: Jono Fragoso Mobile Relation: Son Heron Lizbeth Glover MD Division of Hospitalist Medicine Inpatient Medical Services/[facility] PAGER: Epic chat [1] Past Medical History: Diagnosis Date Hypertension Seizures (HCC) [2] sodium chloride, 60 mL/hr, Last Rate: 60 mL/hr (05/13/25 2210) [3] aspirin, 81 mg, Oral, Daily Or aspirin, 300 mg, Rectal, Daily atorvastatin, 40 mg, Oral, Nightly enoxaparin, 40 mg, SubCUTAneous, Daily folic acid, 1 mg, Oral, Daily influenza, 0.5 mL, IntraMUSCular, Once melatonin, 5 mg, Oral, Nightly [Held by provider] phenytoin ER, 200 mg, Oral, BID sertraline, 100 mg, Oral, Daily sodium chloride 0.9%, 5-40 mL, IntraVENous, q12h stomahesive in petrolatum, , Topical, TID Nutrition Assessment Type and Reason for Visit: Initial (Materials And Processes Manager referral) Nutrition Recommendations/Plan: Continue diet as ordered Adult diet Regular. Materials And Processes Manager/family helping with menu -monitor need for soft foods/diet texture modification Per mnt protocol will add magic cup (290 kcal, 9 gm prot) and Glucerna daily (220 kcal, 10 gm prot) -pt doesn't like Ensure. monitor need for Ziyad -pending wound care consult Consider Vit D supplement Please continue to record meal and supplement intakes in RN Flowsheets RD to monitor labs, weight, skin status, PO intake -follow up weekly Malnutrition Assessment: Malnutrition Status: Severe malnutrition Context: Chronic Illness Findings of the 6 clinical characteristics of malnutrition: Energy Intake: 75% or less estimated energy requirements for 1 month or longer Weight Loss: Mild weight loss (specify amount and time period) (3% wt loss over 3 weeks) Body Fat Loss: Severe body fat loss Orbital, Triceps, Fat Overlying Ribs, Buccal region Muscle Mass Loss: Severe muscle mass loss Clavicles (pectoralis & deltoids), Temples (temporalis), Calf (gastrocnemius), Hand (interosseous) Fluid Accumulation: Mild Extremities Music Director Strength: Not Performed Nutrition Assessment: 84 y.o. female admits with altered mental status, right-sided facial droop, dysarthria, and weakness. Neurology assessed -dilantin unintentional overdose, dilantin toxicity. recent hospitalization for hip fracture s/p Left CMN on 04/21/2025, recent functional decline, HTN, seizures. 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 Pt was alert and able to answer questions on visit Estimated Daily Nutrient Needs: Energy Requirements Based On: Kcal/kg Weight Used for Energy Requirements: Admission Weight for Energy Calculation (kg): 56 kg Total Energy Requirements (kcals/day): 1639-6445 (25-30) Weight Used for Protein Requirements: Admission Weight in Kg Used for Protein Requirements: 56 kg Estimated Total Protein (g/day): 56-73 (1.0-1.3) Estimated Daily Total Fluid (ml/day): per MD Nutrition Related Findings: missing teeth -family member declines modified diet textures at this time. LLE nonpitting and trace LUE edema. ? last bm. na 135, k+ 3.1, bun 7, cr .41, alkphos 181, alb 2.7, hgb 10.5/hct 31.5. Vit D 7 04/25/25, phos 2.2 04/27/25. folic acid. 3% wt loss over 3 weeks noted Wound Type: Pressure Injury, Surgical Incision, Wound Consult Pending 05/13/25 60.1 kg (132 lb 8 oz) 04/22/25 61.7 kg (136 lb) 08/29/24 61.7 kg (136 lb) 07/18/24 61.7 kg (136 lb) 07/15/24 61.7 kg (136 lb) Current Nutrition Therapies: Adult diet Regular Current Oral Intake Average Meal Intake: 1-25% Average Supplements Intake: None Ordered Anthropometric Measures: Height: 167.6 cm (5' 6) Current Body Weight: 59.9 kg (132 lb) (bed scale 131.5 lb today suspect not accurate) Weight Source: Bed Scale Admission Body Weight: 55.8 kg (123 lb) Usual Body Weight: 56.2 kg (124 lb) (pt reports recent wt loss and has been closer to 124 lb lately. 136 lb per records) % Weight Change (Calculated): 6.5 [place] Body Weight (lbs) (Calculated): 130 lbs [place] Body Weight (Kg) (Calculated): 59 kg % [place] Body Weight (Calculated): 101.5 % BMI (kg/m2) (Calculated): 21.3 Weight Adjustment For: No Adjustment BMI Categories: Underweight (BMI less than 22) age over 65 Nutrition Diagnosis: Severe malnutrition, In context of chronic illness related to inadequate protein-energy intake as evidenced by severe muscle loss, severe loss of subcutaneous fat, poor intake prior to admission, Criteria as identified in malnutrition assessment Increased nutrient needs related to increase demand for energy/nutrients as evidenced by wounds (Wound Consult pending) Nutrition Interventions: Nutrition Education/Counseling: No recommendation at this time Coordination of Nutrition Care: Continue to monitor while inpatient Plan of Care discussed with: Pt/ family member at bedside Goals: Goals: PO intake 50% or greater, by next RD assessment Nutrition Monitoring and Evaluation: Behavioral-Environmental Outcomes: Knowledge or Skill Food/Nutrient Intake Outcomes: Food and Nutrient Intake, Supplement Intake Physical Signs/Symptoms Outcomes: Biochemical Data, Chewing or Swallowing, GI Status, Nausea or Vomiting, Fluid Status or Edema, Hemodynamic Status, Nutrition Focused Physical Findings, Skin, Weight Discharge Planning: Continue current diet, Continue Oral Nutrition Supplement Adriana Ma RD Contact: *[phone] or via Secure Chat Hospitalist Progress Note 05/13/[id number]: Please page me ([phone]) for patient care issues. [phone]: Please page [facility] Hospitalist for any issues. Subjective: Admit Date: 05/10/2025 PCP: HCRISTIAN HARRISON NP Room#: B2-251/B2-[facility] A Interval History: No overnight issues. Denies chest pain or sob. No abdominal pain, nausea, vomiting. No fevers or chills. States she feels pretty good today. Her daughter is at bedside Adult diet Regular @[id number]@ 24HR INTAKE/OUTPUT: Intake/Output Summary (Last 24 hours) at 05/13/2025 1049 Last data filed at 05/13/2025 0441 Gross per 24 hour Intake 988 ml Output 1500 ml Net -512 ml Past Medical History: Medical History[1] LABS: CBC: Recent Labs 05/11/25 0404 05/12/25 0938 05/13/25 0507 WBC 5.4 4.6 4.1 RBC 3.10* 3.22* 3.03* HGB 10.7* 11.2* 10.5* HCT 32.4* 33.9* 31.5* MCV 104.5* 105.3* 104.0* RDW 17.9* 17.2* 17.0* PLT 204 164 192 BMP: Recent Labs 05/11/25 0404 05/12/25 0938 05/13/25 0507 NA 134* 133* 135* K 3.6 3.6 3.1* CL 102 103 104 CO2 23 20* 23 BUN 10 9 7* CREATININE 0.44* 0.44* 0.41* GLUCOSE 106 109 93 CALCIUM 9.1 9.0 8.8 ANIONGAP 9 10 8 LIVER PROFILE: Recent Labs 05/11/25 0404 05/12/25 0938 05/13/25 0507 AST 26 23 21 ALT 7 6 6 BILITOT 1.2* 1.2* 1.0 ALKPHOS 190* 193* 181* PROT 5.7* 5.7* 5.2* PT/INR: Recent Labs 05/10/25 1428 PROTIME 10.9 INR 1.0 CARDIAC ENZYMES: No results for input(s): TROPONINI in the last 72 hours. Procalcitonin: No results found for: PROCAL COVID-19 PCR: No results for input(s): COVID19 in the last 72 hours. Objective: Vitals: BP 155/83 (BP Location: Right arm, Patient Position: Lying) Pulse 66 Temp (!) 35.8 C (96.5 F) (Temporal) Resp 16 Ht 5' 6 (1.676 m) Wt 132 lb 8 oz (60.1 kg) SpO2 97% BMI 21.39 kg/m Pulse Ox: SpO2 Av.8 % Min: 94 % Max: 97 % Supplemental O2: General appearance: No apparent distress, appears stated age, HEENT: Eyes: No scleral icterus Oral: Tongue is semi-moist Cardiovascular: S1/S2 heard, RRR Respiratory: Clear to auscultation bilaterally Abdomen: Soft, non-tender, non-distended bowel sounds positive Musculoskeletal: No obvious deformities seen Skin: No visible rashes or lesions. Medications: Continuous Meds[2] Scheduled Meds[3] Assessment Acute, acute on chronic, unstable/uncontrolled chronic problems/diagnoses: # Altered mental status secondary to Dilantin unintentional overdose - seen by Neurology Dr. Puga who states Dilantin toxicity due to dosing error (was on 400 mg PO BID _at the facility, Dr. Bunn called and asked - they had the wrong dose being given) . MRI showed low suspicion for stroke. # Seizure history - continue to hold Dilantin with plans to resume at 200 mg PO BID once dilantin level is less than 10 (was on 400 mg PO BID _at the facility) # Recent left hip fracture - PT and OT. [place] was removed in ED # Delirium - no hx of dementia Monitor melatonin nightly Tenexapam restarted - given risk of withdrawal and more alert will restart as needed for sleeping, do not want her to go Geriatrics consultation reviewed # Hyponatremia - mild, monitor # Macrocytic anemia # Parxosymal Atrial fibrillation Has a 30 day event monitor, not in Afib at this time, and not on any OAC # Right hip pain - XR inconclusive recommending CT - CT showing no evidence of fracture, diffuse osteopenia Stable chronic problems affecting care, new non-acute diagnoses: # Chronic HTN # Hx of seizures (see above) Plan - continue NS IVF but decrease rate to 60 ml/hr - continue to hold Dilantin with plans to resume at 200 mg PO BID once dilantin level is less than 10 - PT/OT recommending SNF. Referrals being sent per TCC. - check daily labs including daily Dilantin level. - Spoke with daughter at bedside. She has been updated Extended Emergency Contact Information Primary Emergency Contact: ManoharEd Mobile Relation: Grandchild Pharmacy Affairs Assistant needed? No Secondary Emergency Contact: Jono Fragoso Mobile Relation: Son Heron Glover MD Division of Hospitalist Medicine Inpatient Medical Services/[facility] PAGER: Epic chat [1] Past Medical History: Diagnosis Date Hypertension Seizures (HCC) [2] sodium chloride, 125 mL/hr, Last Rate: 125 mL/hr (05/13/25 0704) [3] aspirin, 81 mg, Oral, Daily Or aspirin, 300 mg, Rectal, Daily atorvastatin, 40 mg, Oral, Nightly enoxaparin, 40 mg, SubCUTAneous, Daily folic acid, 1 mg, Oral, Daily influenza, 0.5 mL, IntraMUSCular, Once melatonin, 5 mg, Oral, Nightly [Held by provider] phenytoin ER, 200 mg, Oral, BID sertraline, 100 mg, Oral, Daily sodium chloride 0.9%, 5-40 mL, IntraVENous, q12h Images from the original note were not included. Adult Hip and Knee Reconstruction Service Patient Name: Maday Alfaro Date of : 1940 Date: 05/13/25 Assessment: s/p Left CMN on 04/21/[address] Meng doing well Admitted to [facility] for non-ortho related symptoms. Scheduled for 2 week post-op visit so will see her while she is here as she cannot make appt. Plan: Continue PT/OT - WBAT Pain control DVT Prophylaxis - currently lovenox per medicine [place] removed in ED Dc- per primary-> SNF p Xrays pending- left femur Subjective: Overall patient is doing well from ortho standpoint. Pain is well controlled with pain medication. Has been working with PT at facility. She has not been ambulating with walker by herself yet. Patient is currently admitted for stroke like symptoms and has right sided weakness. Medications: Scheduled Meds[1] Physical Exam: Vitals: 05/13/25 0755 BP: 155/83 Pulse: 66 Resp: 16 Temp: (!) 35.8 C (96.5 F) SpO2: 97% Intake and Output Summary (Last 24 hours) at Date Time Intake/Output Summary (Last 24 hours) at 05/13/2025 1011 Last data filed at 05/13/2025 0441 Gross per 24 hour Intake 988 ml Output 1500 ml Net -512 ml General appearance - no acute distress Musculoskeletal - Incision intact. No drainage. No signs of infection. Mild edema and ecchymosis noted to operative site. Mild pain with hip PROM Fires quad/TA/EHL/GSC SILT SP/DP/TN WWP distally Posterior tibial pulse 2+ bilaterally Calves soft, nontender bilateral. No edema, erythema or warmth noted to calves. Labs: Lab Results Component Value Date HGB 10.5 (L) 05/13/2025 , Lab Results Component Value Date WBC 4.1 05/13/2025 HGB 10.5 (L) 05/13/2025 HCT 31.5 (L) 05/13/2025 MCV 104.0 (H) 05/13/2025 PLT 192 05/13/2025 , Lab Results Component Value Date GLUCOSE 93 05/13/2025 CALCIUM 8.8 05/13/2025 NA 135 (L) 05/13/2025 K 3.1 (L) 05/13/2025 CO2 23 05/13/2025 CL 104 05/13/2025 BUN 7 (L) 05/13/2025 CREATININE 0.41 (L) 05/13/2025 , No results found for: CRP, CREACTIVEPRO , and No results found for: SEDRATE, SEDRATEBYMOD Rads: Radiological Procedure reviewed. Signed by: Sivan Romero PA-C [1] aspirin, 81 mg, Oral, Daily Or aspirin, 300 mg, Rectal, Daily atorvastatin, 40 mg, Oral, Nightly enoxaparin, 40 mg, SubCUTAneous, Daily folic acid, 1 mg, Oral, Daily influenza, 0.5 mL, IntraMUSCular, Once melatonin, 5 mg, Oral, Nightly [Held by provider] phenytoin ER, 200 mg, Oral, BID sertraline, 100 mg, Oral, Daily sodium chloride 0.9%, 5-40 mL, IntraVENous, q12h Patient declined smoking cessation counseling. Accepting of handout with contact information for future reference. Images from the original note were not included. PHYSICAL THERAPY [facility] Initial Evaluation Name/MRN: Maday Alfaro ([id number]) Evaluation Date: 05/12/2025 Date of : 1940 Admission Date: 05/10/2025 1:45 PM Age: 84 y.o. Room/Bed: B2251/[facility]251 A Discharge Recommendation: Alf Facility Equipment Needed: No Assessment IMPRESSION: Patient was admitted on 05/10/25 with stroke-like symptoms, recent hip fx, and fall at SNF. Pt presents with decreased functional mobility, ADL status, strength, safety awareness, endurance, balance, ROM, high level iADLs, cognition, and posture. Pt is in 5/10 pain in B knees with activity and is AxOx3. Pt underwent L hip nailing on 04/21/25 at [facility] and is WBAT. Upon eval, pt vitals showed BP 127-145/79-95 w/ rest and activity, and patient was mod A for bed mobility and min A-mod A for transfers. Pt is expected to benefit from skilled PT services to return to [facility]. Pt is recommended to continue therapy in order to progress toward discharge at SNF. Admitting Diagnosis: stroke like symptoms Prognosis: good Performance Deficits /Impairments: Increased Pain, Decreased Functional Mobility, Decreased ADL status, Decreased Strength, Decreased Safety Awareness, Decreased Endurance, Decreased Balance, Decreased ROM, Decreased High Level IADLs, Decreased Cognition, and Decreased Posture Decision Making: Medium Complexity Subjective Pt in bed, pleasant, and agreeable to therapy. Pain: Pt denies any current pain. 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 Fall Risk: [place] Fall Risk Score: 95 (High Risk) Precautions/Restrictions: Right LE Weight Bearing: Weight Bearing As Tolerated Left LE Weight Bearing: Weight Bearing As Tolerated Lines/Drains/Airways: PIV, purewick Fall Precautions Family/Caregiver Present: daughter in-law Overall Cognitive Status: Exceptions - Following commands: follows one step commands consistently, follows multi-step commands with increased time, and inconsistently follows commands - Memory: decreased recall of recent events - Safety judgement: decreased awareness of need for assistance and decreased awareness of need for safety - Problem solving: assistance required to implement solutions - Initiation: requires cues for some Pt states she can't tell me anything that has happened over the last 3 weeks Overall Orientation Status: Oriented to Place, Oriented to Time, and Oriented to Person Vision: Not Assessed Hearing: normal Social/Functional History Patient admitted from SNF. Assistive Equipment: front wheeled walker and rollator Prior Level of Function Prior Level of ADL Function: Required Assist Prior Level of Mobility: Required Assist; Device: Front wheeled walker Prior Level of Transfers: Required Assist Objective Lower Extremity Assessment AROM: WFL Strength: Exceptions: UE and LE strength below functional limit to perform bed mobility and transfers independently Bed Mobility: Supine to sit: Mod Assist Sit to supine: Mod Assist Pt able to move legs towards EOB with increased time and severe fatigue. Pt mod assist required for trunk management. BP measured at 127/79 in supine. Pt required min A in sitting to maintain upright posture. Pt moved back to supine with mod A for trunk management. Transfers Sit to stand: Mod Assist Stand to sit: Min Assist Stand step: Min Assist Lateral: Min Assist Pt completed all transfers w/ increased time to complete. Sts transfer performed at mod A with good pt stability. Pt states dizziness in standing, BP measured w/o drop at 128/84. Pt completes lateral, forward, and retro stepping at min A w/ cues given for proper initiation, body placement, and posture inside walker. Pt demos increased time and inconsistent carrover for cues. Pt has difficulty picking up R leg and moving walker independently. Pt states severe fatigue for transfers w/o signs of LOB. Pt able to eccentrically control descent using bed rails in stand to sit with min A. Pt BP measured 145/95 in sitting. Pt states increased pain of 5/10 in B knees in standing. Ambulation Did not assess this session. Not assessed d/t weakness and fatigue in transfers Outcome Measures AM-PAC How much HELP from another person do you currently need Turning from your back to your side while in a flat bed without using bedrails?: A Little Moving from lying on your back to sitting on the side of a flat bed without using bedrails?: A Lot Moving to and from a bed to a chair (including a wheelchair)?: A Lot Standing up from a chair using your arms (wheelchair or bedside chair)?: A Lot Walking in a hospital room?: A Lot Stair climbing assessed?: No AM-PAC Inpatient Mobility Raw Score (No Stairs) : 11 JH-HLM JH-HLM Scale: Static standing (1 or more minutes) Plan Pt would benefit from skilled acute PT services to address Strengthening, ROM, Gait Training, Balance Training, Self-Care/ADL Training, Functional Mobility Training, Endurance Training, Safety Education and Training, Pain Management, Cognitive Reorientation, and Patient/Caregiver Training. Frequency: 5 visitsduring current hospital admission or until additional recommendations are made Barriers: Pain, Impaired balance, Lower extremity weakness, Upper extremity weakness, Decreased endurance, Limited safety awareness, Confusion, New weightbearing/ROM restrictions, and Cognitive deficit Safety/Education Safety Safety Devices in place: call light within reach, left in bed, bed alarm in place, gait belt, and patient at risk for falls Restraints: No Education Education Given To: patient and daughter in-law Education Provided: PT Role, PT Goals, Plan of Care, Precautions, Transfer Training, IADL Safety, Orientation, Fall Prevention Education, Discharge Recommendations, and Benefits of Increasing Activity Education Method: Verbal, Demonstration, and Teach Back Barriers to Learning: Cognition Education Outcome: Verbalized Understanding and Demonstrated Understanding Goals Patient Stated Goal: to go home Encounter Problems Encounter Problems (Active) Exercise Patient will complete lower extremity exercises for 1-2 sets / 10-15 reps in order to improve strength and activity tolerance for mobility. Start: 05/12/25 Expected End: 05/24/25 Mobility Patient will ambulate 50 feet with CGA and least restrictive device in order to improve safety and independence with mobility. Start: 05/12/25 Expected End: 05/24/25 Safety Patient will recall/demonstrate weight bearing and/or ROM restrictions with all functional mobility in order to promote healing and safety with functional tasks. Start: 05/12/25 Expected End: 05/24/25 Transfers Patient will perform bed mobility with SBA in order to improve independence and prepare for out of bed mobility. Start: 05/12/25 Expected End: 05/24/25 Patient will complete functional transfer with least restrictive device with CGA in order to prepare for ambulation. Start: 05/12/25 Expected End: 05/24/25 Therapy Time Individual Co-Treatment Co-Evaluation Time In 956 Time Out 1026 Minutes 29 Timed Code Treatment Minutes: 9 Minutes (ther act x1) HAMLET Estevez Patient's Physical Therapy Plan of Care supervision is transferred to a [facility] Physical Therapist. Goals and/or treatment plan was established in collaboration with patient/family/other representatives. [1] Past Medical History: Diagnosis Date Hypertension Seizures (HCC) [2] Past Surgical History: Procedure Laterality Date EYE SURGERY HYSTERECTOMY Cosigned by Tonny Brian PT at 05/12/2025 4:15 PM EDT Images from the original note were not included. OCCUPATIONAL THERAPY [facility] Initial Evaluation Name/MRN: Maday Alfaro ([id number]) Evaluation Date: 05/12/2025 Date of : 1940 Admission Date: 05/10/2025 1:45 PM Age: 84 y.o. Room/Bed: B2-251/B2-251 A Discharge Recommendation: Equipment Needed: (at next level of care) Assessment IMPRESSION: Pt admitted to [facility] on 05/10 for confusion and fall at SNF. Imaging: CT head wo 05/10 - Small vessel ischemic disease, No acute process, CXR 05/10 - NO acute process, Left hand XRAY 05/10 - no signs of swelling or fracture. CT R hip negative. CT cervical spine, right hip pending. Pt recently admitted 04/21-04/30 after she fell resulting in a left intertrochanteric hip fracture with extension into the subtrochanteric, and interTAN nailing was completed on 04/21/[address] Meng. Pt then discharged to SNF. Pt states she did not receive assistance with ADLs at SNF, however pt is a questionable historian at this time. States she used a rollator at baseline, and has not been getting out of bed since SNF stay. Upon eval, pt required mod-max A for bed mobility, mod-max A with STS to FWW and mod A for side stepping at EOB. Pt is expected to benefit from skilled OT services to return to [facility]. Recommend return to SNF when medically cleared. Admitting Diagnosis: Stroke like symptoms Performance Deficits /Impairments: Decreased Functional Mobility, Decreased ADL status, Decreased Strength, Decreased Safety Awareness, Decreased Endurance, and Decreased Balance Prognosis: Good Decision Making: Medium Complexity Subjective RN OK for this pt to participate in therapy. Pt pleasant and agreeable to therapy Pain: Pt denies any current pain. Past Medical History: Medical History[1] Past Surgical History: Surgical History[2] Admission Diagnosis: Patient Active Problem List Diagnosis Date Noted Stroke-like symptoms 05/10/2025 Closed intertrochanteric fracture of hip, left, initial encounter (HCC) 04/21/2025 Closed displaced intertrochanteric fracture of left femur (HCC) 04/21/2025 Dilation of renal pelvis 01/04/2019 Chest pain 08/05/2018 Medical Precautions: No active isolations Proper PPE donned/doffed in accordance with facility standards. Fall Risk: [place] Fall Risk Score: 95 (High Risk) Precautions/Restrictions: Right LE Weight Bearing: Weight Bearing As Tolerated Left LE Weight Bearing: Weight Bearing As Tolerated Lines/Drains/Airways: PIV, purewick Fall Precautions Family/Caregiver Present: none Overall Cognitive Status: Exceptions - Attention span: attends with cues to redirect - Memory: decreased recall of recent events - Safety judgement: decreased awareness of need for assistance - Problem solving: assistance required to implement solutions - Insights: decreased awareness of deficits Overall Orientation Status: Oriented to Place, Oriented to Time, Oriented to Person, and Disoriented to Situation Social/Functional History Patient admitted from SNF. Assistive Equipment: front wheeled walker and rollator Prior Level of Function Prior Level of ADL Function: Required Assist Prior Level of Mobility: Required Assist; Device: Rollator Prior Level of Transfers: Required Assist Objective ADLs LE Dressing: Dependent Toileting: Mod Assist Completed toileting in brief, required doffing of old brief, donning of new brief. Able to assist with pericare in sitting. Upper Extremity Assessment AROM: WFL PROM: Not assessed this session Strength: WFL Observed during transfers, functional mobility and ADLs Bed Mobility Supine to sit: Mod Assist Sit to supine: Max Assist Rolling to left: Contact Guard Scooting: Contact Guard Use of bed rail(s) Mod-max A for BLE management. Denied dizziness with positional changes. Pt required increased verbal cueing for task follow through Transfers/Mobility Sit to stand: Mod Assist Stand to sit: Min Assist Sitting balance: SBA Standing balance: Min Assist, Mod Assist Functional mobility: Mod Assist Increased time overall to complete OOB activity. Pt required mod-lanette A overall for all sit < > stand transfers from EOB using FWW. Pt demonstrated good teach back of hand reach back and device/BLE management when standing from seated surface. Pt denied dizziness with positional changes Pt displayed no signs of LOB during functional transfers, but required increased time to stand fully erect, and verbal cueing for hand placement on FWW/rails. Able to complete 3 side steps towards HOB with mod A for safety and physical assist for FWW management. Required increased verbal cueing. Device(s) used: Front wheeled walker Hand dominance: Right AM-PAC AM-PAC Inpatient Daily Activity Raw Score: 15 ADL Inpatient CMS G-Code Modifier: CK Plan Pt would benefit from skilled acute OT services to address Strengthening, ROM, Gait Training, Balance Training, Self-Care/ADL Training, Functional Mobility Training, Endurance Training, Safety Education and Training, and Cognitive Reorientation Frequency: 5 visits during current hospital admission or until additional recommendations are made Barriers: Impaired balance, Lower extremity weakness, Decreased endurance, Limited safety awareness, and Confusion Safety/Education Safety Safety Devices in place: All fall risk precautions in place, call light within reach, left in bed, bed alarm in place, patient at risk for falls, and nurse notified Restraints: No Education Education Given To: patient Education Provided: OT Role, Plan of Care, Precautions, ADL Adaptive Strategies, Transfer Training, Energy Conservation, Orientation, Equipment, Neuro-Vision Education, Discharge Recommendations, and Benefits of Increasing Activity Education Method: Verbal and Demonstration Barriers to Learning: None Education Outcome: Verbalized Understanding and Continued Education Needed Goals Patient Stated Goal: to go home Encounter Problems Encounter Problems (Active) Balance Patient will maintain dynamic standing balance for >3 minutes with min assist in order to demonstrate decreased risk of falling. Start: 05/12/25 Expected End: 05/26/25 Mobility Patient will demonstrate short functional ambulation with FWW and min A Start: 05/12/25 Expected End: 05/26/25 Toileting Patient will complete toileting tasks at bedside commode with min assist. Start: 05/12/25 Expected End: 05/26/25 Transfers Patient will complete functional transfer with rolling walker with min assist in order to prepare for ambulation. Start: 05/12/25 Expected End: 05/26/25 Patient will perform bed mobility with min assist in order to improve independence and prepare for out of bed mobility. Start: 05/12/25 Expected End: 05/26/25 Therapy Time Individual Co-Treatment Co-Evaluation Time In 0852 Time Out 0916 Minutes 24 Timed Code Treatment Minutes: 12 Minutes (1 ADL) Griselda Kessler OT Patient's Occupational Therapy Plan of Care supervision is transferred to a [facility] Occupational Therapist. Goals and/or treatment plan was established in collaboration with patient/family/other representatives. [1] Past Medical History: Diagnosis Date Hypertension Seizures (HCC) [2] Past Surgical History: Procedure Laterality Date EYE SURGERY HYSTERECTOMY Nutrition rescreen completed. Pt referred to RD for malnutrition. Hospitalist Progress Note 05/12/2025 Subjective: Admit Date: 05/10/2025 PCP: CHRISTIAN HARRISON NP Room#: B2-251/B2-251 A BRIEF HOSPITAL COURSE: Maday is a 84 y.o. female with past medical history of hypertension, hyperlipidemia, anxiety, depression and normocytic anemia, who presented with worsening confusion for the past several days per family, patient was recently admitted from 04/21-04/30 after she fell resultign in a left intertrochanteric hip fracture with extension into the subtrochanteric, and interTAN nailing was completed on 04/21/[address] Meng. That admission was complicated by ICU admission for hypotension requirign Levophed gtt and the development of Afib but was not placed on DOAC due to bleeding risk. She was discharged to [facility], was having some difficulties with increase right sided weakness which was making PT and OT harder, family states that she has been more confused over the past couple of days and today fell while trying to get up from the toilet with a nurse. She is confused in the room, did not know year she was born, and family states that she has decreased appetite and not drinking much water. Prior to her fall she was alert and orientated with no signs of dementia. She appears to be seeing thing in the room while there, denies any pain at this time. No headache, difficulties seeing or hearing changes. Told family that she was dizzy for the past few days. No chest pain, shortness of breath, denies any abdomen pain, dysuria or frequency. Family is unsure of when her Dilantin dose was increased - it appears that she was discharged on 200 mg PO BID and may have accidentally been placed on 400 mg PO BID at the facility. In the ED, she has increased hand swelling on the left wrist but denies any pain or discomfort. Sutures from her surgery on 04/[address] and removed in the ED. Labs in the ED showing Na 132, Gluc 209, Alkalin phos 211, albumin 3.2, and TB 1.3, Troponin negative, with LA 1.6, and No leukocytosis, macrocytosis of 106. PT 10.9, INR 1, APTT 30 CT head wo 05/10 - Small vessel ischemic disease, No acute proces CXR 05/10 - NO acute process Left hand XRAY 05/10 - no signs of swelling or fracture CT cervical spine, right hip pending. Neurology saw - patient symptoms related to dilantin overdose and medication was held with daily therapeutic monitoring. EEG ordered and pending Interval History: Still presently confused but feels like she is more awake today, discussed that we are waiting for her dilantin levels to normalize, no seizure like activity observed during admission. EEG to be obtained today to monitor for any activity. No headache, dizziness, chest pain or SOB. Adult diet Regular 24HR INTAKE/OUTPUT: Intake/Output Summary (Last 24 hours) at 05/12/2025 0822 Last data filed at 05/12/2025 0640 Gross per 24 hour Intake 450 ml Output -- Net 450 ml Past Medical History: Medical History[1] LABS: CBC: Recent Labs 05/10/25 1428 05/11/25 0404 WBC 7.6 5.4 RBC 3.36* 3.10* HGB 11.7 10.7* HCT 35.5 32.4* MCV 105.7* 104.5* RDW 17.9* 17.9* PLT 215 204 BMP: Recent Labs 05/10/25 1428 05/11/25 0404 NA 132* 134* K 4.3 3.6 CL 98 102 CO2 24 23 BUN 12 10 CREATININE 0.61 0.44* GLUCOSE 209* 106 CALCIUM 9.5 9.1 ANIONGAP 10 9 LIVER PROFILE: Recent Labs 05/10/25 1428 05/11/25 0404 AST 33 26 ALT 11 7 BILITOT 1.3* 1.2* ALKPHOS 211* 190* PROT 6.4 5.7* PT/INR: Recent Labs 05/10/25 1428 PROTIME 10.9 INR 1.0 CARDIAC ENZYMES: No results for input(s): TROPONINI in the last 72 hours. Procalcitonin: No results found for: PROCAL COVID-19 PCR: No results for input(s): COVID19 in the last 72 hours. Objective: Vitals: BP 156/81 (BP Location: Right arm, Patient Position: Lying) Pulse 62 Temp 36.1 C (96.9 F) (Temporal) Resp 24 Ht 5' 6 (1.676 m) Wt 122 lb 12.8 oz (55.7 kg) SpO2 96% BMI 19.82 kg/m Pulse Ox: SpO2 Av.2 % Min: 96 % Max: 98 % Supplemental O2: Physical Exam Vitals and nursing note reviewed. HENT: Mouth/Throat: Pharynx: Oropharynx is clear. Eyes: Conjunctiva/sclera: Conjunctivae normal. Cardiovascular: Rate and Rhythm: Normal rate. Heart sounds: No murmur heard. Pulmonary: Effort: Pulmonary effort is normal. No respiratory distress. Breath sounds: No wheezing or rales. Abdominal: General: Bowel sounds are normal. Tenderness: There is no abdominal tenderness. Musculoskeletal: Right lower leg: Edema present. Left lower leg: Edema present. Skin: General: Skin is warm. Capillary Refill: Capillary refill takes less than 2 seconds. Coloration: Skin is pale. Findings: Bruising (on arms and lower extremity,) present. Neurological: General: No focal deficit present. Mental Status: She is alert. Cranial Nerves: No cranial nerve deficit. Sensory: No sensory deficit. Motor: Weakness (left leg weakness secondary to her fractyhre) present. Coordination: Coordination normal. Gait: Gait normal. Comments: Neurology exam significant improvement - normal finger to nose, able to lift arms and right leg, no difficulties with dysarthria. Medications: Scheduled PRN Scheduled Meds[2] PRN Meds[3] Continuous Continuous Meds[4] Assessment Data: (CAT1) Reviewed 3 or more notes from different specialty or health system (each=1). (CAT1) Reviewed 3 or more labs/studies ordered by another provider not previously counted (each=1, panels count as 1). (LOW: 2x CAT1 or independent historian MOD: 3x CAT1 or 1x CAT3 EXTENSIVE: 3x CAT1 and 1x CAT3) Acute, acute on chronic, unstable/uncontrolled chronic problems/diagnoses: Altered mental status secondary to Dilantin unintentional overdose - Admit to tele Stroke order set was ordered, OK to DC NIHSS In and out, daily weights, lovenox MRI was not obtained - low suspicion for stroke related to medication side effect Daily labs Follow up dilantin level - needs to be < 10 to restart, continue to hold - OK to restart 200 mg PO BID Seizure history Dilantin 200 mg PO BID Was on 400 mg PO BID _at the facility, called and asked - they had the wrong dose being given. EEG ordered Recent left hip fracture PT and OT [place] removed in ED Delirium - no hx of dementia Monitor melatonin nightly Tenexapam restarted - given risk of withdrawal and more alert will restart as needed for sleeping, do not want her to go Geriatrics consultation reviewed Hyponatremia Appears dry, mIVF and reassess in monitoring . Macrocytosis Atrial fibrillation Has a 30 day event monitor, not in Afib at this time, and not on any OAC Right hip pain XR inconclusive recommending CT - CT showing no evidence of fracture, diffuse osteopenia Plan As a result of the above findings & factors, the following mgmt was pursued: - 05/11. Vs, labs reviewed, AMS secondary to increased dilantin levels, patient dosing currently being held will repeat levels daily, - 05/12- VS, labs reviewed, No MRI needed low suspicion for stroke, NIHSS dizcontinued, EEG to be obtained today, will need to go back to dilantin 200 mg PO BID - when dilantin levels get less then 10, will need SNF placement. - am labs, replace lytes prn - PT/OT/CM/SW - delirium precautions: increase activity and limit nighttime disturbances - DVT prophylaxis: enoxaparin and encourage ambulation Complexity: Chronic illness with severe exacerbation, progression, or side effect of tx (HIGH). Risk: Admission to hospital-level care was considered or occurred (HIGH). Advance Directive: Full Code Anticipated Discharge - Date - 05/13 - Location - SNF - Pending the following - final clinical improvement Total time spent (which include face to face and non face to face encounters) : 43 minutes Toxic drug monitoring/narrow therapeutic index drug monitoring : # Drug name : dilantin # Route administered : oral # Method of monitoring : monitor therapeutic levels. Extended Emergency Contact Information Primary Emergency Contact: Ed Villela Mobile Relation: Grandchild Pharmacy Affairs Assistant needed? No Secondary Emergency Contact: Jono Fragoso Mobile Relation: Son Nemo Bunn MD Division of Hospitalist Medicine [facility] [1] Past Medical History: Diagnosis Date Hypertension Seizures (HCC) [2] aspirin, 81 mg, Oral, Daily Or aspirin, 300 mg, Rectal, Daily atorvastatin, 40 mg, Oral, Nightly enoxaparin, 40 mg, SubCUTAneous, Daily folic acid, 1 mg, Oral, Daily influenza, 0.5 mL, IntraMUSCular, Once melatonin, 5 mg, Oral, Nightly [Held by provider] phenytoin ER, 200 mg, Oral, BID sertraline, 100 mg, Oral, Daily sodium chloride 0.9%, 5-40 mL, IntraVENous, q12h [3] PRN medications: acetaminophen OR acetaminophen, bisacodyl, labetalol, ondansetron ODT OR ondansetron, oxyCODONE, polyethylene glycol (PEG) 3350, sodium chloride, sodium chloride 0.9%, [Held by provider] temazepam [4] sodium chloride, 125 mL/hr, Last Rate: 125 mL/hr (05/12/25 0407) Images from the original note were not included. OCCUPATIONAL THERAPY [facility] Name/MRN: Maday Alfaro ([id number]) Date: 05/11/2025 Evaluation is being deferred at present because pt with pending imaging . Elyse Montes OT Images from the original note were not included. PHYSICAL THERAPY [facility] Name/MRN: Maday Alfaro ([id number]) Date: 05/11/2025 Evaluation is being deferred at present because pt with pending imaging . Leif Biggs PT Hospitalist Progress Note 05/11/2025 Subjective: Admit Date: 05/10/2025 PCP: CHRISTIAN HARRISON NP Room#: B2-251/B2-251 A BRIEF HOSPITAL COURSE: Maday is a 84 y.o. female with past medical history of hypertension, hyperlipidemia, anxiety, depression and normocytic anemia, who presented with worsening confusion for the past several days per family, patient was recently admitted from 04/21-04/30 after she fell resultign in a left intertrochanteric hip fracture with extension into the subtrochanteric, and interTAN nailing was completed on 04/21/[address] Meng. That admission was complicated by ICU admission for hypotension requirign Levophed gtt and the development of Afib but was not placed on DOAC due to bleeding risk. She was discharged to [facility], was having some difficulties with increase right sided weakness which was making PT and OT harder, family states that she has been more confused over the past couple of days and today fell while trying to get up from the toilet with a nurse. She is confused in the room, did not know year she was born, and family states that she has decreased appetite and not drinking much water. Prior to her fall she was alert and orientated with no signs of dementia. She appears to be seeing thing in the room while there, denies any pain at this time. No headache, difficulties seeing or hearing changes. Told family that she was dizzy for the past few days. No chest pain, shortness of breath, denies any abdomen pain, dysuria or frequency. Family is unsure of when her Dilantin dose was increased - it appears that she was discharged on 200 mg PO BID and may have accidentally been placed on 400 mg PO BID at the facility. In the ED, she has increased hand swelling on the left wrist but denies any pain or discomfort. Sutures from her surgery on 04/[address] and removed in the ED. Labs in the ED showing Na 132, Gluc 209, Alkalin phos 211, albumin 3.2, and TB 1.3, Troponin negative, with LA 1.6, and No leukocytosis, macrocytosis of 106. PT 10.9, INR 1, APTT 30 CT head wo 05/10 - Small vessel ischemic disease, No acute proces CXR 05/10 - NO acute process Left hand XRAY 05/10 - no signs of swelling or fracture CT cervical spine, right hip pending. Neurology saw - patient symptoms related to dilantin overdose and medication was held with daily therapeutic monitoring. Interval History: Seen in room today - more alert then previous, still has high dilantin level so will continue to hold until levels get less then >10 then will restart, lNo overnight issues. Case and plan discussed with patient and bedside nurse. All questions answered. Adult diet Regular 24HR INTAKE/OUTPUT: Intake/Output Summary (Last 24 hours) at 05/11/2025 0844 Last data filed at 05/11/2025 0340 Gross per 24 hour Intake 567.09 ml Output 500 ml Net 67.09 ml Past Medical History: Medical History[1] LABS: CBC: Recent Labs 05/10/25 1428 05/11/25 0404 WBC 7.6 5.4 RBC 3.36* 3.10* HGB 11.7 10.7* HCT 35.5 32.4* MCV 105.7* 104.5* RDW 17.9* 17.9* PLT 215 204 BMP: Recent Labs 05/10/25 1428 05/11/25 0404 NA 132* 134* K 4.3 3.6 CL 98 102 CO2 24 23 BUN 12 10 CREATININE 0.61 0.44* GLUCOSE 209* 106 CALCIUM 9.5 9.1 ANIONGAP 10 9 LIVER PROFILE: Recent Labs 05/10/25 1428 05/11/25 0404 AST 33 26 ALT 11 7 BILITOT 1.3* 1.2* ALKPHOS 211* 190* PROT 6.4 5.7* PT/INR: Recent Labs 05/10/25 1428 PROTIME 10.9 INR 1.0 CARDIAC ENZYMES: No results for input(s): TROPONINI in the last 72 hours. Procalcitonin: No results found for: PROCAL COVID-19 PCR: No results for input(s): COVID19 in the last 72 hours. Objective: Vitals: BP 122/88 (BP Location: Left arm, Patient Position: Lying) Pulse 67 Temp 36.7 C (98 F) (Temporal) Resp 17 Ht 5' 6 (1.676 m) Wt 122 lb 12.8 oz (55.7 kg) SpO2 96% BMI 19.82 kg/m Pulse Ox: SpO2 Av.1 % Min: 94 % Max: 100 % Supplemental O2: Physical Exam Vitals and nursing note reviewed. HENT: Mouth/Throat: Pharynx: Oropharynx is clear. Eyes: Conjunctiva/sclera: Conjunctivae normal. Cardiovascular: Rate and Rhythm: Normal rate. Heart sounds: No murmur heard. Pulmonary: Effort: Pulmonary effort is normal. No respiratory distress. Breath sounds: No wheezing or rales. Abdominal: General: Bowel sounds are normal. Tenderness: There is no abdominal tenderness. Musculoskeletal: Right lower leg: Edema present. Left lower leg: Edema present. Skin: General: Skin is warm. Capillary Refill: Capillary refill takes less than 2 seconds. Coloration: Skin is pale. Findings: Bruising present. Neurological: General: No focal deficit present. Mental Status: She is alert. Cranial Nerves: No cranial nerve deficit. Sensory: No sensory deficit. Motor: Weakness (left leg weakness secondary to her fractyhre) present. Coordination: Coordination normal. Gait: Gait normal. Comments: Neurology exam significant improvement - normal finger to nose, able to lift arms and right leg, no difficulties with dysarthria. Medications: Scheduled PRN Scheduled Meds[2] PRN Meds[3] Continuous Continuous Meds[4] Assessment Data: (CAT1) Reviewed 3 or more notes from different specialty or health system (each=1). (CAT1) Reviewed 3 or more labs/studies ordered by another provider not previously counted (each=1, panels count as 1). (LOW: 2x CAT1 or independent historian MOD: 3x CAT1 or 1x CAT3 EXTENSIVE: 3x CAT1 and 1x CAT3) Acute, acute on chronic, unstable/uncontrolled chronic problems/diagnoses: Altered mental status secondary to Dilantin unintentional overdose - Admit to tele Stroke order set, NIHSS - complicated by recent hip fracture - which is making score higher In and out, daily weights, lovenox Given recent work up will defer MRI until neurology see - given higher dose of dilantin Daily labs Follow up dilantin level - needs to be < 10 to restart Seizure history Dilantin 200 mg PO BID Was on 400 mg PO BID _at the facility, called and asked, Recent left hip fracture PT and OT Yein removed in ED Delirium - no hx of dementia Monitor melatonin nightly HOLD tenezepam at this time. But there is a withdrawal risk, will need to restart, Geriatrics consultation reviewed Hyponatremia Appears dry, mIVF and reassess in monitoring . Macrocytosis Atrial fibrillation Has a 30 day event monitor, not in Afib at this time, and not on any OAC Plan As a result of the above findings & factors, the following mgmt was pursued: - 05/11. Vs, labs reviewed, AMS secondary to increased dilantin levels, patient dosing currently being held will repeat levels daily, - am labs, replace lytes prn - PT/OT/CM/SW - delirium precautions: increase activity and limit nighttime disturbances - DVT prophylaxis: enoxaparin and encourage ambulation Complexity: Chronic illness with severe exacerbation, progression, or side effect of tx (HIGH). Risk: Admission to hospital-level care was considered or occurred (HIGH). Advance Directive: Full Code Anticipated Discharge - Date - 05/13 - Location - SNF - Pending the following - final clinical improvement Total time spent (which include face to face and non face to face encounters) : 41 minutes Toxic drug monitoring/narrow therapeutic index drug monitoring : # Drug name : dilantin # Route administered : oral # Method of monitoring : monitor therapeutic levels. Extended Emergency Contact Information Primary Emergency Contact: Ed Villela Mobile Relation: Grandchild Pharmacy Affairs Assistant needed? No Secondary Emergency Contact: Jono Fragoso Mobile Relation: Phill Chester Areli Bunn MD Division of Hospitalist Medicine [facility] [1] Past Medical History: Diagnosis Date Hypertension Seizures (HCC) [2] aspirin, 81 mg, Oral, Daily Or aspirin, 300 mg, Rectal, Daily atorvastatin, 40 mg, Oral, Nightly enoxaparin, 40 mg, SubCUTAneous, Daily influenza, 0.5 mL, IntraMUSCular, Once melatonin, 5 mg, Oral, Nightly [Held by provider] phenytoin ER, 200 mg, Oral, BID sertraline, 100 mg, Oral, Daily sodium chloride 0.9%, 5-40 mL, IntraVENous, q12h [3] PRN medications: acetaminophen OR acetaminophen, bisacodyl, labetalol, ondansetron ODT OR ondansetron, oxyCODONE, polyethylene glycol (PEG) 3350, sodium chloride, sodium chloride 0.9%, [Held by provider] temazepam [4] sodium chloride, 125 mL/hr, Last Rate: 125 mL/hr (05/11/25 0357) Speech-Language Pathology Patient passed the Nursing Swallowing Screening. As per stroke policy, no formal dysphagia evaluation is required. Completed speech orders. documented in this encounter [facility] 2025 Nurse Note Message sent to Dr. Heron Glover regarding half-way request to send prescription with patient. Report called to [facility]. [facility] 2025 Nurse Note Message sent to Dr. Heron Glover regarding half-way request to send prescription with patient. Report called to [facility]. Notified Willow Darby CM and Jc Blanco SW regarding patients daughter in laws request for an update on when she will go to half-way. Wound Care consulted for Pressure Injury Prevention. Pt's Galileo score= 16 on 05/14 Pt's pressure points assessed. Pt's Heels, Elbows, Occiput and ears all intact. [place] and blanchable tissues noted to bilateral heels. Pt currently followed by Wound NEWSPAPER OR PERIODICAL EDITOR group for wound to sacrum. For sacrum wound assessment and treatment plan, please see Wound/Ostomy NEWSPAPER OR PERIODICAL EDITOR progress notes. Female external catheter in place. Skin intact to medial thighs and labia. Instructed pt on pressure injury prevention and importance of turning/postioning every 2hrs while in bed and every 15 min while sitting in chair. Verbalized understanding. Pt resting on P500 bed. Prevention Measures in place, including: Pillows/wedges, Foam heel protectors (obtained and applied), Heels elevated off bed on pillows, Zinc/Moisture Barrier ointment (ET mix also at bedside), Waffle chair cushion (obtain if out of bed to chair). Skin Care precaution order set in place. Dietitian consult in place. PT/OT consult in place. Will continue to follow pt. Please secure chat for any questions or concerns. Nancy Reddy RN Notified Dr. Heron Glover that during morning round noticed patients left hand and wrist were swollen. documented in this encounter [facility] 2025 Note [facility] 2025 Hospital course Narrative Discharge Summary Maday Alfaro : 1940 ADMIT DATE: 05/10/2025 DISCHARGE DATE: 2025 PRIMARY CARE PHYSICIAN: CHRISTIAN HARRISON VISIT STATUS: Admission CODE STATUS: Full Code DISCHARGE DIAGNOSES: Principal Problem: Stroke-like symptoms Active Problems: Severe malnutrition (CMS/HCC) (HCC) HOSPITAL COURSE: Maday is a 84 y.o. female with past medical history of hypertension, hyperlipidemia, anxiety, depression and normocytic anemia, who presented with worsening confusion for the past several days per family, patient was recently admitted from 04/21-04/30 after she fell resultign in a left intertrochanteric hip fracture with extension into the subtrochanteric, and interTAN nailing was completed on 04/21/[address] Meng. That admission was complicated by ICU admission for hypotension requirign Levophed gtt and the development of Afib but was not placed on DOAC due to bleeding risk. She was discharged to [facility], was having some difficulties with increase right sided weakness which was making PT and OT harder, family states that she has been more confused over the past couple of days and today fell while trying to get up from the toilet with a nurse. She is confused in the room, did not know year she was born, and family states that she has decreased appetite and not drinking much water. Prior to her fall she was alert and orientated with no signs of dementia. She appears to be seeing thing in the room while there, denies any pain at this time. No headache, difficulties seeing or hearing changes. Told family that she was dizzy for the past few days. No chest pain, shortness of breath, denies any abdomen pain, dysuria or frequency. Family is unsure of when her Dilantin dose was increased - it appears that she was discharged on 200 mg PO BID and may have accidentally been placed on 400 mg PO BID at the facility. In the ED, she has increased hand swelling on the left wrist but denies any pain or discomfort. Sutures from her surgery on 04/[address] and removed in the ED. Labs in the ED showing Na 132, Gluc 209, Alkalin phos 211, albumin 3.2, and TB 1.3, Troponin negative, with LA 1.6, and No leukocytosis, macrocytosis of 106. PT 10.9, INR 1, APTT 30 CT head wo 05/10 - Small vessel ischemic disease, No acute proces CXR 05/10 - NO acute process Left hand XRAY 05/10 - no signs of swelling or fracture CT cervical spine, right hip pending. The following is a summary of her diagnosis/management during her stay here at [facility]: Acute, acute on chronic, unstable/uncontrolled chronic problems/diagnoses: # Toxic encephalopathy secondary to Dilantin unintentional overdose - seen by Neurology Dr. Puga who states Dilantin toxicity due to dosing error (was on 400 mg PO BID _at the facility, Dr. Bunn called and asked - they had the wrong dose being given) . MRI showed low suspicion for stroke. Resolved now and back to baseline. # Seizure history - Dilantin now resumed at correct dosage of 200 mg PO BID # Recent left hip fracture - PT and OT (cleared for therapy per Ortho Dr. Meng after follow up XR's were done here - I discussed results with him through epic chat with OT). Yeni was removed in ED. # Delirium - no hx of dementia Monitor melatonin nightly Temazepam restarted - given risk of withdrawal and more alert will restart as needed for sleeping (ended up stopping here as we do not carry it. Will stop on discharge as she is doing good without it and doing fine with melatonin for sleep. # Hyponatremia - mild, monitor # Hypokalemia - replaced # Macrocytic anemia # Parxosymal Atrial fibrillation Has a 30 day event monitor, not in Afib at this time, and not on any OAC # Right hip pain - XR inconclusive recommending CT - CT showing no evidence of fracture, diffuse osteopenia # Severe malnutrition # left arm swelling - venous duplex showed Acute, occlusive superficial vein thrombosis in the cephalic vein of the left upper arm. NO DVT. Stable chronic problems affecting care, new non-acute diagnoses: # Chronic HTN # Hx of seizures (see above) Physical exam: Cardiovascular: S1/S2 heard, RRR Respiratory: Clear to auscultation bilaterally Abdomen: Soft, non-tender, non-distended bowel sounds positive Musculoskeletal: No obvious deformities seen Skin: No visible rashes or lesions. SIGNIFICANT DIAGNOSTIC STUDIES: As above CONSULTANTS: Neurology RECOMMENDED NEXT STEPS: DISCHARGE MEDICATIONS: Medication List START taking these medications enoxaparin 40 MG/0.4ML solution prefilled syringe Commonly known as: Lovenox Inject 0.4 mL (40 mg) under the skin every 24 hours. Start taking on: May 17, 2025 CONTINUE taking these medications acetaminophen 500 MG tablet Commonly known as: Tylenol Take 2 tablets (1,000 mg) by mouth every 6 hours as needed for mild pain (1-3). alendronate 70 MG tablet Commonly known as: Fosamax aspirin 81 MG chewable tablet ergocalciferol 1.25 MG (11541 UT) capsule Commonly known as: Vitamin D2 Take 1 capsule (1.25 mg) by mouth 1 (one) time per week. melatonin 5 MG tablet Take 1 tablet (5 mg) by mouth Nightly. oxyCODONE 5 MG immediate release tablet Commonly known as: Roxicodone Take 1 tablet (5 mg) by mouth every 6 hours as needed for severe pain (7-10). phenytoin ER 100 MG capsule Commonly known as: Dilantin sertraline 100 MG tablet Commonly known as: Zoloft STOP taking these medications temazepam 15 MG capsule Commonly known as: Restoril Where to Get Your Medications Information about where to get these medications is not yet available Ask your nurse or doctor about these medications enoxaparin 40 MG/0.4ML solution prefilled syringe DIET: Adult diet Regular ACTIVITY: Up with assist COMPLEXITY OF FOLLOW UP: [] Moderate Complexity: follow up within 7-14 calendar days (67909) [] Severe Complexity: follow up within 7 calendar days (76508) FOLLOW UP TESTING, PENDING RESULTS OR REFERRALS AT TRANSITIONAL CARE VISIT: [] Yes [] No PENDING STUDIES: DISPOSITION: Skilled Facility FACILITY/HOME CARE AGENCY NAME: Follow up with No follow-up provider specified. Follow up with PCP INSTRUCTIONS TO MA/SW: Please call patient on day after discharge (must document patient contacted within 2 business days of discharge). FOLLOW UP QUESTIONS FOR MA/SW: 1. Did you get medications filled and taking them as instructed from discharge? 2. Are you following your discharge instructions from your hospital stay? 3. Please confirm patient is scheduled for a follow up appointment within the above time frame. DISCHARGE TIME: > 31 minutes SIGNED: Heron Glover MD 2025, 10:41 AM documented in this encounter [facility] 2025 Progress note Formatting of t his note might be different from the original. Case Management Discharge Summary Note Who you talked to: Name: nichole Espino/SOSA Left HIPAA compliant VM for the above to discuss DC and transport time. Spoke with jose ramonughterEd regarding transportation plan. Confirmed pickup time is 1400. Discussed patient may have a co-pay for ambulance depending on their individual insurance coverage. Advised granddaughter to call number on back of insurance card with questions or concerns. : Alf Facility Facility: [facility], Level of Care: SNF, and Transport: 1400 Messaged attending to notify of request for P2P from insurance, deadline today by 1345 EST: Option 1. Provide name, , and Ref#:[id number]. Per attending, when he attempted to call and complete P2P he was told auth already approved. Reached out to [facility] to confirm. Messaged facility via [employer] to confirm ability to accept today. This CM added into [facility]Port to receive notifications on this referral. Received response back from facility - able to accept back. Her original room is waiting for her. Received confirmation from [facility] that auth is approved. Requested cot transport for 1400 via [facility]. [facility] claimed cot transport for requested 1400 time. Notified bedside RN of transport time and provided number to call report. Notified facility of transport time and sent AVS/MAR via [facility]Port. [facility] 2025 Miscellaneous Notes Case Management Discharge Summary Note Who you talked to: Name: Ed Villela, grandchild/HCPOA Left HIPAA compliant VM for the above to discuss DC and transport time. Spoke with jose ramonughterEd regarding transportation plan. Confirmed pickup time is 1400. Discussed patient may have a co-pay for ambulance depending on their individual insurance coverage. Advised granddaughter to call number on back of insurance card with questions or concerns. : Alf Facility Facility: [facility], Level of Care: SNF, and Transport: 1400 Messaged attending to notify of request for P2P from insurance, deadline today by 1345 EST: Option 1. Provide name, , and Ref#:[id number]. Per attending, when he attempted to call and complete P2P he was told auth already approved. Reached out to [facility] to confirm. Messaged facility via [employer] to confirm ability to accept today. This CM added into [facility]Port to receive notifications on this referral. Received response back from facility - able to accept back. Her original room is waiting for her. Received confirmation from [facility] that auth is approved. Requested cot transport for 1400 via [employer]. [facility] claimed cot transport for requested 1400 time. Notified bedside RN of transport time and provided number to call report. Notified facility of transport time and sent AVS/MAR via [facility]Port. Insurance Authorization: Needs [id number] Received notification requesting a [id number] be completed by Provider. Option 1 Deadline: TODAY BY 1:45PM Caller to Provide Patient identifiers and Ref#:[id number] TCC NOTIFIED Care Management Progress Note Short Medical why still here: Medically stable for dc. Dilantin restarted. Updated PT/OT notes yesterday. Auth pending for return to [facility]. Met with patient and daughter at [facility] to update them that auth still pending. Daughter stated that family was interested in getting medical records from hospital stay. Directed daughter that Medical Records would have to be called post dc as chart is often not complete at time of dc. Planned Discharge Disposition: Alf Facility Barriers/Today we still Wait:insurance auth Length of Stay (Days): 5 GMLOS: 2.5 Care Management Progress Note Short Medical why still here: elevated Dilantin levels, IVF Planned Discharge Disposition: Alf Facility Plan is to return to [facility]. Messaged PT/OT to see today to start auth for SNF. Barriers/Today we still Wait: Administering IV medications, Test results (comment) Length of Stay (Days): 4 GMLOS: 2.5 Patient Choice Patient Name: MADAY ALFARO Date of : 1940 All Providers Sent Referral Name: [facility] Phone: [phone] Address: [address] [place], [place] [address] Care Management Progress Note Short Medical why still here: SNF placement Planned Discharge Disposition: Alf Facility Spoke with Urmila-denise Ed dheeraj only beds available at [facility] Al[facility]Dementia [facility]. She and family have decided for pt to return to [facility] - facility updated. Barriers/Today we still Wait: Administering IV medications, Clinical stability, [facility] [employer] [facility] recommendations (comment), Patient/caregiver facility choice Length of Stay (Days): 3 GMLOS: 2.5 Referral placed to [facility] via [facility] per TCC request. Await review and response regarding ability to accept. TCC notified. Received call back from Grand Daughter Ed. Confirms her and her father discussed disposition planning. They request referral to [facility]. Ed also wishes to leave door open to returning to [facility] at this time; just wants to see if [facility] has a bed first. She is aware will need to finalize FOC tomorrow once response received from [facility]. Once bed confirmed will need to obtain approval from insurance as well. She demonstrates understanding. EYELET MAKER tasked to begin referral. Awaiting bed availability. Referral placed to return back to [facility] via [facility] per TCC request. Await review and response regarding ability to accept. TCC notified. Care Managment Initial Assessment Date: 05/12/2025 Patient Name: Maday Alfaro : 1940 Patient Information Source of Information: Patient Operating System Designer Name/Contact Information: Patient Contacts (10/14) Ed [facility] Emergency Contact [phone] Health Care Agent Notify on admission Cognition/Language: Confused at baseline Permission given to speak with patient senior outside sales representative/caregiver as indicated: Confirmation of Payer with patient/family: Yes Payer Name: [employer] Medicare Advantage [place]: No Confirmation of Primary Care Physician: Confirmed PCP Name: Christian Harrison NP Seen in last 2 years?: No Primary Caregiver: Self If assistance needed, confirmed caregiver ready, willing and able to care for patient at discharge: Confirmed with: Living Arrangements Current Residence: Private Residence (Normally lives alone prior to rehab stay) Number of Floors Number of Entry Steps: Bed/Bath Levels: Facility: Nursing Facility Skilled Facility Name: [facility] Plan to Return: Comments (TBD, family deciding today) Lives with: Other (Comment) Support Systems: Family members Activities of Daily Living Ambulation: Assistance Bathing/Dressing: Assistance Elimination/Continence/Toileting: Assistance Feeding: Assistance Who Assists with Activities of Daily Living: Instrumental Activities of Daily Living Prescription Coverage: Yes Pharmacy Used: Medication Management: Independent (from facility) Transportation/Shopping: Assistance Provider Transportation/Shopping Assistance Provider Name: family Transportation Mode: Car Needs Assistance with Transportation at Discharge: No Meal Preparation: Assistance Provider Meal Prep Assistance Provider Name: facility Laundry/Cleaning: Assistance Provider Laundry/Cleaning Assistance Provider Name: facility Finances/Bill Paying: Assistance Provider Finances/Bill Payer Assistance Provider Name: facility Communication: Assistance Types of Care Services/Equipment Utilized Care Services: Dialysis Type: Durable Medical Equipment: Walker Patient's Goal/Discharge Plan Patient expects to be discharged to: SNF Discharge Planning Actions: Continue to follow Patient's Choice Rights and [employer] and Collaborative Relationships Disclosed as Indicated for Post-Acute Care: Interdisciplinary Team Engagement: PT/OT Social Work Referral for: Additional Information: Chart reviewed. Patient admitted to [facility] from [facility] with Altered Mental status 2/2 Dilantin unintentional overdose; staff gave in correct amount at half-way. Fell at half-way. MRI negative for stroke. PT/OT following. Spoke to Grand daughter over the phone. Unable to reach son Jono. Ed answered questions. Confirms she is Rafa's daughter. She explained patient is normally from home. But, has been staying at [facility] since 04/28 for SNF. Recent discharge from [facility]. She states she wishes to discuss final discharge disposition with her father. Emailed new SNF listing to [email or web address]. DC plan: TBD; doubtful will return to [facility], Awaiting call back from Ed to determine FOC. Explained to her will need to obtain insurance authorization prior to discharge from hospital -anticipate 05/13 if medically ready and facility secured. Anticipating return call from Ed today. EYELET MAKER tasked to begin return referral to [facility]. Migdalia Cooper RN documented in this encounter [facility] 2025 Progress note Formatting of t his note might be different from the original. Insurance Authorization: Needs [id number] Received notification requesting a [id number] be completed by Provider. Option 1 Deadline: TODAY BY 1:45PM Caller to Provide Patient identifiers and Ref#:[id number] TCC NOTIFIED [facility] 05-15-2025 Progress note Formatting of t his note might be different from the original. Care Management Progress Note Short Medical why still here: Medically stable for dc. Dilantin restarted. Updated PT/OT notes yesterday. Auth pending for return to [facility]. Met with patient and daughter at [facility] to update them that auth still pending. Daughter stated that family was interested in getting medical records from hospital stay. Directed daughter that Medical Records would have to be called post dc as chart is often not complete at time of dc. Planned Discharge Disposition: Alf Facility Barriers/Today we still Wait:insurance auth Length of Stay (Days): 5 GMLOS: 2.5 T [facility] 05-15-2025 Nurse Note Notified Willow Darby CM and Jc AUGUST regarding patients daughter in laws request for an update on when she will go to half-way. [facility] 05-15-2025 Nurse Note Wound Care consulted for Pressure Injury Prevention. Pt's Galileo score= 16 on 05/14 Pt's pressure points assessed. Pt's Heels, Elbows, Occiput and ears all intact. [place] and blanchable tissues noted to bilateral heels. Pt currently followed by Wound NEWSPAPER OR PERIODICAL EDITOR group for wound to sacrum. For sacrum wound assessment and treatment plan, please see Wound/Ostomy NEWSPAPER OR PERIODICAL EDITOR progress notes. Female external catheter in place. Skin intact to medial thighs and labia. Instructed pt on pressure injury prevention and importance of turning/postioning every 2hrs while in bed and every 15 min while sitting in chair. Verbalized understanding. Pt resting on P500 bed. Prevention Measures in place, including: Pillows/wedges, Foam heel protectors (obtained and applied), Heels elevated off bed on pillows, Zinc/Moisture Barrier ointment (ET mix also at bedside), Waffle chair cushion (obtain if out of bed to chair). Skin Care precaution order set in place. Dietitian consult in place. PT/OT consult in place. Will continue to follow pt. Please secure chat for any questions or concerns. Nancy Reddy RN [facility] 05-15-[address] Heron Glover that during morning round noticed patients left hand and wrist were swollen. T [facility] 05-14-2025 Progress note Formatting of t his note might be different from the original. Care Management Progress Note Short Medical why still here: elevated Dilantin levels, IVF Planned Discharge Disposition: Alf Facility Plan is to return to [facility]. Messaged PT/OT to see today to start auth for SNF. Barriers/Today we still Wait: Administering IV medications, Test results (comment) Length of Stay (Days): 4 GMLOS: 2.5 T [facility] 05-13-2025 Progress note Formatting of t his note might be different from the original. Patient Choice Patient Name: MADAY ALFARO Date of : 1940 All Providers Sent [facility] Phone: [phone] Address: [address] [place] [address] T [facility] 05-13-2025 Progress note Formatting of t his note might be different from the original. Care Management Progress Note Short Medical why still here: SNF placement Planned Discharge Disposition: Alf Facility Spoke with Shona esqueda only beds available at [facility]. She and family have decided for pt to return to [facility] - facility updated. Barriers/Today we still Wait: Administering IV medications, Clinical stability, Director Of [employer] Facility recommendations (comment), Patient/caregiver facility choice Length of Stay (Days): 3 GMLOS: 2.5 [facility] 05-13-2025 Telephone encounter Note error [facility] 05-13-2025 Miscellaneous Notes error documented in this encounter [facility] 05-12-2025 Note [facility] 05-12-2025 Procedure note Associated Ord er(s): EEG Images from the original note were not included. EEG/VIDEO REPORT DEMOGRAPHICS PATIENT: MADAY ALFARO MEDICAL RECORD: [id number] DATE OF SERVICE: 2024 DATE OF : [birth year] AGE: 84 GENDER: Female HANDEDNESS: RIGHT DICTATING PHYSICIAN: Dr. Camargo REFERRING PHYSICIAN: Dr. Camargo EEG PARAMETER EEG TEST ?: [id number] EEG TEST TYPE: Inpatient routine 21-MINUTE EEG RECORDING. (8:26 AM-8:47 AM) HYDRAULIC PUNCH PRESS OPERATOR: Neo Mcadams 44 Channel EEG for data acquisition. EEG electrodes were positioned using the International 10-20 system. Montages used for EEG Data Analysis are I. Referential. II. Transverse. III. Bipolar. Time Emily: 0.1 second High frequency filter: 70 Hz Notch filter: 60 Hz Seconds per patient: 10 CLINICAL DATA EEG CLINICAL INDICATION: Dilantin toxicity NEUROLOGICAL HISTORY/DIAGNOSIS: 84-year-old woman with acute confusion, somnolence status. On admission her Dilantin (phenytoin) level was 49.6. On the day of this EEG phenytoin level is 33.6 MEDICAL HISTORY: Seizures Chronic insomnia Hypertension LEFT fracture femur LEFT hip fracture CURRENT PERTINENT MEDICATIONS: Aspirin 81 mg daily Dilantin 200 mg bid Acetaminophen 500 mg prn Oxycodone 5 mg prn Melatonin 5 mg qhs/temazepam 15 mg qhs Sertraline 100 mg qam Fosamax 70 mg/week Vitamin D2 50,000 units weekly MENTAL STATUS PRESENTATION: Alert, drowsy, lethargic. EEG INTERPRETATION BACKGROUND EEG ACTIVITY Posterior dominant rhythm: Delta rhythm; 6 Hz Frequency variability (CAPE): PRESENT Frequency symmetry: Symmetric Occipitally prominent: Yes A-P gradient with posterior rhythm dominance: Present Anterior rhythm dominance: Absent Amplitude: Normal >10 V Amplitude variability: PRESENT Amplitude symmetry: Symmetric Continuity of background rhythm: Continuous Rhythmicity: Present Synchronicity: Present State changes: Present with normal stage II sleep transients. Evidence of skull defect with breach rhythm: Absent NORMAL EEG VARIANT WAVES: Absent ABNORMAL EEG WAVES: Absent INTERICTAL EPILEPTIFORM DISCHARGES: Absent ACTIVATION PROCEDURES EYE OPENING/CLOSING elicits transient bilateral frontotemporal attenuation of the EEG activity. HYPERVENTILATION is not performed. INTERMITTENT PHOTIC STIMULATION IS not performed. ARTIFACTS: Not significant. EKG: Normal sinus rhythm,. EEG-NEUROPHYSIOLOGICAL IMPRESSION/ EEG-CLINICAL CORRELATION This is an ABNORMAL AWAKE & DROWSY INPATIENT EEG. The posterior dominant delta rhythm 6 Hz is seen throughout the awakened portion of this EEG recording. Generalized slowing of the background activity reflects a mildly severe diffuse cortical dysfunction which can be seen with toxic-metabolic/systemic causes, consistent with Dilantin (phenytoin) toxicity There are no abnormal EEG rhythms. There are no abnormal EEG wave-complexes. There are no focal/lateralizing EEG abnormalities. There are no ictal or interictal epileptiform discharges & no clinical seizures are seen on video. MIKALA Camargo MD NEUROLOGIST [facility] 05-12-2025 Procedure note Associated Ord er(s): EEG Images from the original note were not included. EEG/VIDEO REPORT DEMOGRAPHICS PATIENT: MADAY ALFARO MEDICAL RECORD: [id number] DATE OF SERVICE: 2024 DATE OF : [birth year] AGE: 84 GENDER: Female HANDEDNESS: RIGHT DICTATING PHYSICIAN: Dr. Camargo REFERRING PHYSICIAN: Dr. Camargo EEG PARAMETER EEG TEST ?: [id number] EEG TEST TYPE: Inpatient routine 21-MINUTE EEG RECORDING. (8:26 AM-8:47 AM) HYDRAULIC PUNCH PRESS OPERATOR: Neo Mcadams 44 Channel EEG for data acquisition. EEG electrodes were positioned using the International 10-20 system. Montages used for EEG Data Analysis are I. Referential. II. Transverse. III. Bipolar. Time Emily: 0.1 second High frequency filter: 70 Hz Notch filter: 60 Hz Seconds per patient: 10 CLINICAL DATA EEG CLINICAL INDICATION: Dilantin toxicity NEUROLOGICAL HISTORY/DIAGNOSIS: 84-year-old woman with acute confusion, somnolence status. On admission her Dilantin (phenytoin) level was 49.6. On the day of this EEG phenytoin level is 33.6 MEDICAL HISTORY: Seizures Chronic insomnia Hypertension LEFT fracture femur LEFT hip fracture CURRENT PERTINENT MEDICATIONS: Aspirin 81 mg daily Dilantin 200 mg bid Acetaminophen 500 mg prn Oxycodone 5 mg prn Melatonin 5 mg qhs/temazepam 15 mg qhs Sertraline 100 mg qam Fosamax 70 mg/week Vitamin D2 50,000 units weekly MENTAL STATUS PRESENTATION: Alert, drowsy, lethargic. EEG INTERPRETATION BACKGROUND EEG ACTIVITY Posterior dominant rhythm: Delta rhythm; 6 Hz Frequency variability (CAPE): PRESENT Frequency symmetry: Symmetric Occipitally prominent: Yes A-P gradient with posterior rhythm dominance: Present Anterior rhythm dominance: Absent Amplitude: Normal >10 V Amplitude variability: PRESENT Amplitude symmetry: Symmetric Continuity of background rhythm: Continuous Rhythmicity: Present Synchronicity: Present State changes: Present with normal stage II sleep transients. Evidence of skull defect with breach rhythm: Absent NORMAL EEG VARIANT WAVES: Absent ABNORMAL EEG WAVES: Absent INTERICTAL EPILEPTIFORM DISCHARGES: Absent ACTIVATION PROCEDURES EYE OPENING/CLOSING elicits transient bilateral frontotemporal attenuation of the EEG activity. HYPERVENTILATION is not performed. INTERMITTENT PHOTIC STIMULATION IS not performed. ARTIFACTS: Not significant. EKG: Normal sinus rhythm,. EEG-NEUROPHYSIOLOGICAL IMPRESSION/ EEG-CLINICAL CORRELATION This is an ABNORMAL AWAKE & DROWSY INPATIENT EEG. The posterior dominant delta rhythm 6 Hz is seen throughout the awakened portion of this EEG recording. Generalized slowing of the background activity reflects a mildly severe diffuse cortical dysfunction which can be seen with toxic-metabolic/systemic causes, consistent with Dilantin (phenytoin) toxicity There are no abnormal EEG rhythms. There are no abnormal EEG wave-complexes. There are no focal/lateralizing EEG abnormalities. There are no ictal or interictal epileptiform discharges & no clinical seizures are seen on video. MIKALA Camargo MD NEUROLOGIST documented in this encounter [facility] 05-12-2025 Consult note Formatting of th is note is different from the original. NEUROLOGY SUBSEQUENT CONSULTATION DATE/TIME: 2024 [] PATIENT s NAME: MADAY ALFARO DATE OF : [birth year] AGE: 84 GENDER: Female ROOM: 251/A PHYSICIAN REQUESTING CONSULT: Dr. Bunn NEUROLOGIST: Mikala Camargo MD DATE OF ADMISSION: 05-10-25 REASON FOR NEUROLOGY CONSULTATION: Altered mental status with dysphasia and right-sided facial droop. INTERVAL HISTORY OF PRESENT ILLNESS ED HISTORY OF PRESENT ILLINESS Maday Alfaro who was admitted to the Emergency Department at [facility] on 05-10-25. She presented with altered mental status after a fall. Ms. Alfaro cannot give me a neurological history. NEURO-RELEVANT SYMPTOM PROFILE Onset of symptoms: 05-10-25 Description of symptoms: Altered mental status with dysphasia and right-sided facial droop. Concern for a fall. Today, 05-12-25, Ms. Alfaro continues to be symptomatic. Subjective Ms. Powers reports concern and confusion regarding a Dilantin dosing error, stating that her usual regimen is Dilantin 200 mg in the morning and 200 mg at night, but she was mistakenly given 400 mg in the morning and 400 mg at night. She is unsure how the error occurred and does not recall the details, expressing uncertainty and distress about the situation. She also reports smoking and indicates that she uses a bedside commode when needing to go to the bathroom. Ms. Powers states that she slept well last night and was still asleep in the morning, without reporting any issues with sleep. I encouraged to eat some food, but she complains of loss of appetite. Subjective Ms. Alfaro presents with confusion and a recent fall at the half-way. She expresses a strong desire to be active, stating readiness to get out and dance. She does not recall the fall or episodes of confusion. Currently Ms. Alfaro takes Dilantin 200 mg bid for seizure control, and she informed me that her Dilantin level was checked about a month ago, and states that no adjustment was made to her medication following the last Dilantin level. The main concerns we discussed include confusion, impaired memory of recent events, and ongoing seizure management. Negative acute neurologic symptoms: No headaches or head pain, no dizziness/vertigo, no lightheadedness or syncopal episodes, no diplopia or blurred vision, no visual impairment, no auditory impairment, no facial paresis or paralysis, no aphasia or dysarthria no dysphagia, no extremity paresis or paralysis, no extremity sensory deficit, no tremor, no involuntary movement, no seizures. NEURO-RELEVANT REVIEW OF SYSTEMS NEUROLOGY Aphasia Ataxia Balance impairment Cognitive/Memory impairment CVA/TIA Diplopia Dizziness Dysesthesia Dystonia Facial asymmetry Falls, unintended Fasciculation Gait disorder Headache/migraine Hearing impairment Hyperesthesia Hypoesthesia Inattentiveness Insomnia Involuntary movement/Tremor Major neurocognitive disorder (dementia) Memory impairment Multiple sclerosis Myasthenia Myopathy Narcolepsy Near-syncope Neuropathy Numbness Paresthesia Parkinsonism/Parkinson's disease Restless leg syndrome Seizures/epilepsy Speech Difficulty Syncope Tremor (Essential) Vestibular balance dysfunction Weaknesses ABNORMAL NEGATIVE CARDIOVASCULAR Angina Bradycardia Cardiac pacemaker Cardiac stent Cardiomegaly Claudication Coronary artery disease ECG, abnormal Heart attack Heart murmur Hypertension Irregular heart rhythm/fibrillation Palpitation Peripheral edema, pitting Peripheral vascular disease Tachycardia ABNORMAL NEGATIVE DERMATOLOGY NEGATIVE EAR, NOSE, & THROAT NEGATIVE ENDOCRINOLOGY NEGATIVE GASTROINTESTINAL NEGATIVE GENERAL NEGATIVE GENITOURINARY NEGATIVE GYNECOLOGY NEGATIVE HEMATOLOGY NEGATIVE MUSCULOSKELETAL Arthralgia Arthritis Back pain Back stiffness Cervicalgia Fibromyalgia Muscle cramps/spasm Myalgia Myopathy Nuchal rigidity Osteoarthritis ABNORMAL NEGATIVE NECK NEGATIVE OPHTHALMOLOGY NEGATIVE ORTHOPEDIC Deformities Fracture: Hip and femur Hip & knee & ankle injury Tendon injury Tumors Shoulder & Elbow & hand injury ABNORMAL NEGATIVE PSYCHIATRY/PSYCHOLOGY Alcohol use disorder Anxiety Behavioral disorder Bipolar disorder Depression Hallucination Hypersomnia Insomnia Irritability/agitation Mood disorder Nicotine dependence PTSD Sleep disturbance Suicidal Ideation ABNORMAL NEGATIVE PULMONARY NEGATIVE RHEUMATOLOGY Gout Lupus Osteoarthritis Osteoporosis Polymyalgia rheumatica Polymyositis Psoriasis arthritis Rheumatoid arthritis Scleroderma Sj gren's Syndrome Tendinitis Vasculitis ABNORMAL NEGATIVE SLEEP NEGATIVE SUPPLEMENTAL Vitamin D deficiency NEURO-RELEVANT PAST MEDICAL/SURGERY HISTORY NEURO-RELEVANT MEDICAL HISTORY NEUROLOGY Seizures Chronic insomnia CARDIOLOGY Hypertension ORTHOPEDIC LEFT fracture femur LEFT hip fracture NEURO-RELEVANT PAST SURGERY HISTORY NEUROLOGY None GYNECOLOGY Total hysterectomy OPTHALMOLOGY Eye surgery ORTHOPEDIC Hip fracture Vitamin D deficiency NEURO-RELEVANT MEDICATION/DRUG/OTC REVIEW NEURO-RELEVANT OUTPATIENT TREATMENT NEUROLOGY Aspirin 81 mg daily Dilantin 200 mg bid OPTHALMOLOGY Acetaminophen 500 mg prn Oxycodone 5 mg prn PSYCHIATRY Melatonin 5 mg qhs/temazepam 15 mg qhs Sertraline 100 mg qam RHEUMATOLOGY Fosamax 70 mg/week SUPPLEMENTAL Vitamin D2 50,000 units weekly DRUG ALLERGIES Bee Venom Anaphylaxis Lidocaine Shortness of breath Penicillin G Rash Penicillins Nausea Only Simvastatin Rash Sulfa Antibiotics Nausea Only Varenicline Nausea And Vomiting NEURO-RELEVANT SOCIAL HISTORY Currently smoking: Daily Currently vaping: No Current alcohol use: Not currently Current caffeine use: Not known. Current drug use non-medication: No ADDITIONAL: . Currently living in a nursing facility NEURO-RELEVANT RELEVANT FAMILY HISTORY Family history is significant: Stroke, heart disease, coronary artery disease. NEURO-RELEVANT NEURODIAGNOSTIC LAB RESULTS ELECTROLYTES PANEL Sodium: (N: 136-145) 134 Potassium: (N: 3.5-5.1) 3.6 RENAL PANEL BUN: (N: 9-23) 10 Creatinine: (N: 0.57-1.11) 0.44 GFR: (N: >60) >90 Total protein: (N: 6.4-8.3) 5.7 Albumin: (N: 3.5-5.0) 3.0 Calcium: (N: 8.8-10) 9.1 Magnesium: (N: 1.6-2.6) not available DIABETES PANEL Glucose: (N: 82-115) 106 HbA1c: (N: <5.7- <6.5) 4.3 HEPATIC PANEL Alkaline phosphatase: (N: 40-140) 190 AST: (N: <34) 26 ALT: (N: <30) 7 Total Bilirubin: (N: <1.2) 1.2 Lactic acid: 1.6 CARDIAC PANEL CK: (N: 30-185) Troponin HS serial baseline: (N: <14) <3 Troponin HS serial second: (N: <14) <3 NT PRO BNP: (N: <450) Protime: (N: 0.9-12) 10.9 INR: (N: 0.9-1.1) 1.0 APTT: (N: 20-30.5) 29.8 LIPID PANEL Triglyceride: (N: <150) 50 HDL: (N: >60) 72 LDL: (N: <100) 96 Cholesterol: (N: <200) 178 CBC WBC: (N: 3.6-10.7) 5.4 RBC: (N: M: 3.8-5.2) 3.10 Hemoglobin: (N: M: 12-17. F: 11.7-16.0) 10.7 Hematocrit: (N:35-47) 32.4 MCV: (N: 77-99) 104.5 MCH: (N: 26-34) 34.5 MCHC: (N: 30.5-36) 33.0 Platelet count: (N: 140-440) 204 MPV: (N: 9-12.7) 9.6 ANEMIA PANEL Vitamin B12: (N: 213-816) Pending Folate: (N: 7-31.4) Pending Vitamin D: (N: 30-100) Pending THYROID PANEL TSH: N: 0.35-4.94) not available MISCELLANEOUS Dilantin level: (N: 10-20) 49.6 Dilantin toxicity. Then 36.6 and today May 12:-33.2. URINALYSIS: Turbid with few bacteria Nitrite: Negative CT HEAD without contrast No acute intracranial lesion. Diffuse cortical atrophy. Chronic subcortical, periventricular white matter with small vessel ischemic changes. CT CERVICAL SPINE No evidence of acute fracture or traumatic subluxation of the cervical spine. Age indeterminant mild superior endplate compression fracture deformity T2. Trace of pleural thickening vs pleural effusion on the left. Partial visualization of 2.0 x 1.5 cm nodule left lung apex medially. Heterogeneous bulky thyroid gland with multiple nodules measuring up to at least 1.[address] THORACIC SPINE Superior endplate compression T2, age indeterminate. Osteopenia. Small left pleural effusion. 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 Left lung apex medial irregular 1.[address] LUMBAR No evidence of acute lumbar spine fracture or traumatic subluxation. Degenerative spondylosis lumbar spine with moderate to severe spinal stenosis at L3-L4, L4-L5 as well as moderate to severe bilateral foraminal stenosis with facet hypertrophy. 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 CHEST X-RAY No acute cardiopulmonary disease. X-RAY LEFT HAND AND RIGHT HIP No acute fractures or dislocation. Degenerative changes of the LEFT hand and wrist. Subtle lucency of the right proximal femur transcervical region which may reflect a nondisplaced fracture versus artifact. Redemonstration of the comminuted left proximal femur intertrochanteric fracture with avulsion of the lesser trochanter status post open reduction internal fixation with intramedullary ras and proximal interlocking screws (acute fracture 04/21/2025). EKG Sinus rhythm (68/min) LEFT anterior fascicular block. ROUTINE EEG/VIDEO Pending: Dilantin toxicity NEUROLOGICAL EXAMINATION Observation Objective - Phenytoin (Dilantin) level: elevated - No physical or neurologic examination findings reported in the transcript Mr. Alfaro is lying comfortably in bed, in no acute distress. Objective - Lab results: phenytoin (Dilantin) level 49.6 (reference <20; target 16-17) drawn approximately one month ago - Confusion noted during encounter - Impaired mobility and increased fall risk discussed; advised not to get up or move around unassisted - No additional physical or neurologic examination Level of cooperation Pleasant: Agreeable manners, & behavior. Cooperative: Willingness & ability to work in a common effort. Attitude Normal Behavior & psychomotor activity Lethargic: Facial expression Normal: Proper to the medical/neurologic situation. Speech Hypophonic Cognitive evaluation Memory: Recall of medical data: Impaired Attentive: Lethargic Orientation: 7 Date, Month, Year, Day, Place, City, and President of [facility]: Impaired CEREBELLAR FUNCTION No tremor. No extraneous movements. No dysmetria. Stance/Gait: Not evaluated CRANIAL NERVES II-XII: Normal NEUROMUSCULAR Tone: Normal for age. Wasting of the upper extremities: Absent in the upper extremities Wasting of the lower extremities: Absent in the lower extremities Distal extremities edema: None POWER UPPER: Attempt: Lethargic POWER LOWER: Attempt: Lethargic Moves all limbs spontaneously and purposefully. DEEP TENDON REFLEXES Biceps (C5-C6) R: 2+ L: 2+ Triceps (C7-C8) R: 2+ L: 2+ Patella (L3-L4) R: 2+ L: 2+ Ankle (S1-S2) R: 2+ L: 2+ Extensor Plantar Response R: Negative Extensor Plantar Response L: Negative SENSORY Sensation to light touch: Normal bilaterally NEUROLOGICAL DECISION MAKING PRIMARY NEUROLOGICAL COMPLAINT Altered mental status with dysphasia and right-sided facial droop. PRIMARY NEUROLOGICAL DIAGNOSIS E/M/C ETIOLOGY of COMPLIANT T42.0X1A Dilantin toxicity MANIFESTATION of COMPLIANT G31.84 Mild cognitive impairment of uncertain or unknown etiology COMORBIDITY ASSOCIATED WITH COMPLIANT E87.1 Hyponatremia E44.1 Mild protein-calorie malnutrition SECONDARY DIAGNOSIS CT imaging confirmation CT CERVICAL SPINE Partial visualization of 2.0 x 1.5 cm nodule left lung apex medially. Heterogeneous bulky thyroid gland with multiple nodules measuring up to at least 1.[address] THORACIC SPINE Superior endplate compression T2, age indeterminate. Osteopenia. Small left pleural effusion. 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 Left lung apex medial irregular 1.[address] LUMBAR No evidence of acute lumbar spine fracture or traumatic subluxation. Degenerative spondylosis lumbar spine with moderate to severe spinal stenosis at L3-L4, L4-L5 as well as moderate to severe bilateral foraminal stenosis with facet hypertrophy. 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 NEUROLOGICAL DIAGNOSIS ASSESSMENT & COMPLEXITIES (D/D) No clinical or neuroimaging evidence of acute cerebrovascular event. CLINICAL PRESENTATION & DECISION ANALYSIS/DIFFERENTIAL DIAGNOSIS ASSESSMENT 05-12-25 Ms. Alfaro presents with Dilantin toxicity secondary to a medication dosing error, as evidenced by persistently elevated Dilantin levels. She also reports smoking and use of a bedside commode for bathroom needs and describes sleeping through the previous night without issues. The primary neurologic complaint is Dilantin toxicity. Differential diagnosis for elevated Dilantin levels and associated symptoms includes medication dosing error, impaired hepatic metabolism, drug-drug interactions, and possible underlying neurologic conditions that may affect phenytoin metabolism or sensitivity. 05-11-25 Ms. Alfaro presents with acute confusion and a recent fall, both likely secondary to Dilantin toxicity, as evidenced by a serum phenytoin level of 49.6 (therapeutic range <20). Her seizure disorder is managed with phenytoin (Dilantin) 200 mg bid. DIFFERENTIAL DIAGNOSIS Differential diagnosis for confusion and fall includes Dilantin toxicity, Metabolic encephalopathy, Infection, Stroke, and other Medication effects, but the elevated Dilantin level and clinical context strongly support Dilantin toxicity as the primary cause. NEURO-DIAGNOSTICS REQUESTED Daily trough total Dilantin levels (stat) Inpatient EEG Vitamin B12/folate levels NEUROLOGY TREATMENT RECOMMENDATION/GOALS NEURO PHARMACOTHERAPY NEURO NON-PHARMACOTHERAPY 05-12-25 Continue close monitoring of Dilantin levels due to recent overdose from incorrect dosing. Advise to try to eat some food to support overall health and recovery during hospitalization. For Dilantin toxicity, the treatment plan is supportive care and monitoring until levels are normalized. 05-11-25 Temporarily discontinue Dilantin therapy Stop Dilantin administration until the daily serum levels decrease to the normal range. Once Dilantin levels have normalized, restart the medication at a reduced dose, decreasing from four capsules per day to three capsules per day to avoid future toxicity. Monitor for clinical improvement over the next three to four days as Dilantin levels decline. I will reassess Ms. Alfaro s clinical status tomorrow to evaluate progress and adjust management as needed. I advised strict fall precautions and instruct Ms. Alfaro not to get up or move around unassisted due to current neurological impairment and increased fall risk. I requested an inpatient EEG to evaluate for continued seizures. I also requested vitamin B12/folate levels for vitamin B12/folate deficiency NEURO-TREATMENT COMPLEXITIES/ADVERSE EFFECT(S) DRUG-DRUG INTERACTION Adverse effects of phenytoin toxicity include confusion, impaired coordination, increased risk of falls, and encephalopathy, as discussed. No other medications or drug-drug interactions are mentioned or recommended at this time. Adverse effects of phenytoin (Dilantin) may include ataxia, nystagmus, confusion, gastrointestinal symptoms, and potential cardiac arrhythmias at high levels. No other medications or drug-drug interactions are reported in the transcript. PROGNOSIS FOR NEUROLOGIC RECOVERY Neurological prognosis for recovery is excellent. NEUROLOGY REEVALUATION WITH DR. Camargo TIMELINE: I will re-evaluate Ms. Alfaro on MondayMay 13 during Neurology Rounds. 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 This thoroughness was essential for me to engage in a [id number] interview and conduct a focused neurological examination, aimed at better understanding Ms. Alfaro's neurologic complaints. During our discussion, I took the opportunity to explain the current diagnosis, detailing its development, potential alternative diagnoses, and various treatment options. I made sure to involve her in the decision-making process, discussing what we can anticipate as we proceed and ensuring she felt informed and comfortable with the neurological diagnosis and its underlying causes. Together, we carefully reviewed the results of the relevant neurodiagnostic tests, and I communicated the benefits and risks of the current neurologic management plan clearly and straightforwardly. I discussed the proposed care plan, ensuring it was at a level that she could understand. She voiced her agreement with the current neurological care. REFERRING PHYSICIAN: I updated the referring physician, & the treatment team with my Medical Decision Making. Please note With Ms. Alfaro s approval, I created this report using [employer] voice recognition system, Nicholas Massey, and Reyna Co-engine pilot. I conducted an accurate and prompt marble rubber and a thorough editorial review. Acknowledging that some subtle contextual errors may still be present is essential. These errors can arise from the misrecognition of spoken words, which is common when integrating human voice with advanced digital technologies. This interaction can sometimes lead to misunderstandings or misinterpretations in the text. Please let me know if you notice any errors, discrepancies, or inconsistencies in this report. Your feedback is valuable in helping me maintain the quality and accuracy of the information presented. Thanks for your understanding and cooperation. Mikala Camargo MD Comprehensive Neurologist [phone] [facility] 05-12-2025 Note [facility] [place] [facility] per [facility] request. Await review and response regarding ability to accept. TCC notified. [facility] 05-12-2025 Progress note Formatting of t his note might be different from the original. Referral placed to [facility] [place] [facility] per [facility] request. Await review and response regarding ability to accept. TCC notified. [facility] 05-12-2025 Progress note Formatting of t his note might be different from the original. Received call back from Grand Daughter Ed. Confirms her and her father discussed disposition planning. They request referral to [facility]. Ed also wishes to leave door open to returning to [facility] at this time; just wants to see if [facility] has a bed first. She is aware will need to finalize FOC tomorrow once response received from [facility]. Once bed confirmed will need to obtain approval from insurance as well. She demonstrates understanding. EYELET MAKER tasked to begin referral. Awaiting bed availability. [facility] 05-12-2025 Note Referral placed to r eturn back to [facility] per [facility] request. Await review and response regarding ability to accept. TCC notified. Electronically [facility] by [facility] on 05/12/2025 at 2:46 PM [facility] 05-12-2025 Progress note Formatting of t his note might be different from the original. Referral placed to return back to [facility] via [facility] per [facility] request. Await review and response regarding ability to accept. TCC notified. [facility] 05-12-2025 Progress note Formatting of t his note might be different from the original. Care Managment Initial Assessment Date: 05/12/2025 Patient Name: Maday Alfaro : 1940 Patient Information Source of Information: Patient Operating System Designer Name/Contact Information: Patient Contacts (10/14) Ed June Emergency Contact [phone] Health Care Agent Notify on admission Cognition/Language: Confused at baseline Permission given to speak with patient senior outside sales representative/caregiver as indicated: Confirmation of Payer with patient/family: Yes Payer Name: [employer] Medicare Advantage : No Confirmation of Primary Care Physician: Confirmed PCP Name: Christian Harrison NP Seen in last 2 years?: No Primary Caregiver: Self If assistance needed, confirmed caregiver ready, willing and able to care for patient at discharge: Confirmed with: Living Arrangements Current Residence: Private Residence (Normally lives alone prior to rehab stay) Number of Floors Number of Entry Steps: Bed/Bath Levels: Facility: Nursing Facility Skilled Facility Name: [facility] Plan to Return: Comments (TBD, family deciding today) Lives with: Other (Comment) Support Systems: Family members Activities of Daily Living Ambulation: Assistance Bathing/Dressing: Assistance Elimination/Continence/Toileting: Assistance Feeding: Assistance Who Assists with Activities of Daily Living: Instrumental Activities of Daily Living Prescription Coverage: Yes Pharmacy Used: Medication Management: Independent (from facility) Transportation/Shopping: Assistance Provider Transportation/Shopping Assistance Provider Name: family Transportation Mode: Car Needs Assistance with Transportation at Discharge: No Meal Preparation: Assistance Provider Meal Prep Assistance Provider Name: facility Laundry/Cleaning: Assistance Provider Laundry/Cleaning Assistance Provider Name: facility Finances/Bill Paying: Assistance Provider Finances/Bill Payer Assistance Provider Name: facility Communication: Assistance Types of Care Services/Equipment Utilized Care Services: Dialysis Type: Durable Medical Equipment: Walker Patient's Goal/Discharge Plan Patient expects to be discharged to: SNF Discharge Planning Actions: Continue to follow Patient's Choice Rights and [employer] and Collaborative Relationships Disclosed as Indicated for Post-Acute Care: Interdisciplinary Team Engagement: PT/OT Social Work Referral for: Additional Information: Chart reviewed. Patient admitted to [facility] from [facility] with Altered Mental status 2/ Dilantin unintentional overdose; staff gave in correct amount at half-way. Fell at half-way. MRI negative for stroke. PT/OT following. Spoke to Grand daughter over the phone. Unable to reach son Jono. Ed answered questions. Confirms she is Rafa's daughter. She explained patient is normally from home. But, has been staying at [facility] since 04/28 for SNF. Recent discharge from [facility]. She states she wishes to discuss final discharge disposition with her father. Emailed new SNF listing to [email or web address]. DC plan: TBD; doubtful will return to [facility], Awaiting call back from Ed to determine FOC. Explained to her will need to obtain insurance authorization prior to discharge from hospital -anticipate 05/13 if medically ready and facility secured. Anticipating return call from Ed today. EYELET MAKER tasked to begin return referral to [facility]. Migdalia Cooper RN [facility] 05-12-2025 Hospital Discharg e instructions Lupe Rojo RN - 05/12/2025 1:26 PM EDT Refer to the Understanding Stroke Booklet given to you, written material provided to patient/family, addressing all signs & symptoms of a stroke, which are: sudden numbness or weakness of the face, arm or leg, especially on one side of the body sudden confusion sudden difficulty speaking or understanding sudden trouble seeing in one or both eyes sudden trouble walking,dizziness, loss of balance or coordination sudden severe headache with no known cause syncope or temporary loss of consciousness seizure Explained the need to call EMS (911) immediately if signs & symptoms occur. Discussed medications that the patient is taking, will review medications again prior to discharge, risk factors, and the need for follow-up with a physician/FRAME CHANGER/PA after discharge. Lupe Rojo RN on 05/12/25 at 1:25 PM Discussed the patient s personal risk factors for Stroke /TIA with patient/family, and ways to reduce the risk for a recurrent stroke. Patient's personal risk factors which were identified are: [x] High blood pressure [x] High cholesterol [] Atrial fibrillation [] Diabetes [] Smoking/e-cigarettes/vaping [] Smokeless tobacco [] Overweight [] Lack of Exercise [] Sleep apnea [x] Prior heart disease or heart attack [] Excessive alcohol use [] Marijuana/cannabis use [] Illicit drug use [] Personal history of previous TIA or stroke [] Family history of stroke or heart disease [] Carotid stenosis [] Heart failure [] Patent Foramen Ovale [] Migraine [] Hormone replacement therapy [] Current (up to six weeks post ) [] Depression [] Sickle Cell [] Renal insufficiency - chronic [] None Refer to Understanding Stroke Booklet. Advised patient that risk for stroke/TIA can be reduced by modifying/controlling risk factors. Patient advised to take medications as prescribed, which will be detailed in the discharge instructions, and to not stop taking them without consulting a physician. In addition, pt. advised to maintain a healthy diet, exercise regularly and to not smoke. Lupe Rojo RN on 05/12/25 at 1:25 PM Lupe Rojo RN - 05/12/2025 1:24 PM EDT Refer to the Understanding Stroke Booklet given to you, written material provided to patient/family, addressing all signs & symptoms of a stroke, which are: sudden numbness or weakness of the face, arm or leg, especially on one side of the body sudden confusion sudden difficulty speaking or understanding sudden trouble seeing in one or both eyes sudden trouble walking,dizziness, loss of balance or coordination sudden severe headache with no known cause syncope or temporary loss of consciousness seizure Explained the need to call EMS (911) immediately if signs & symptoms occur. Discussed medications that the patient is taking, will review medications again prior to discharge, risk factors, and the need for follow-up with a physician/FRAME CHANGER/PA after discharge. Lupe Rojo RN on 05/12/25 at 1:24 PM Discussed the patient s personal risk factors for Stroke /TIA with patient/family, and ways to reduce the risk for a recurrent stroke. Patient's personal risk factors which were identified are: [x] High blood pressure [x] High cholesterol [] Atrial fibrillation [] Diabetes [] Smoking/e-cigarettes/vaping [] Smokeless tobacco [] Overweight [] Lack of Exercise [] Sleep apnea [x] Prior heart disease or heart attack [] Excessive alcohol use [] Marijuana/cannabis use [] Illicit drug use [] Personal history of previous TIA or stroke [] Family history of stroke or heart disease [] Carotid stenosis [] Heart failure [] Patent Foramen Ovale [] Migraine [] Hormone replacement therapy [] Current (up to six weeks post ) [] Depression [] Sickle Cell [] Renal insufficiency - chronic [] None Refer to Understanding Stroke Booklet. Advised patient that risk for stroke/TIA can be reduced by modifying/controlling risk factors. Patient advised to take medications as prescribed, which will be detailed in the discharge instructions, and to not stop taking them without consulting a physician. In addition, pt. advised to maintain a healthy diet, exercise regularly and to not smoke. Lupe Rojo RN on 05/12/25 at 1:24 PM Jenni Bonilla RN - 2025 10:39 AM EDT Images from the original note were not included. Continuity of Care Form Patient Name: Maday Alfaro : 1940 Admit date: 05/10/2025 Discharge date: Code Status Order: Full Code Advance Directives: N Admitting Physician: Nemo Bunn MD PCP: CHRISTIAN HARRISON NP Discharging Nurse: Jenni Bonilla RN Discharging Hospital Unit/Room#: B2-251/B2-251 A Discharging Unit Emergency Contact: Extended Emergency Contact Information Primary Emergency Contact: Ed Villela Mobile Relation: Grandchild Pharmacy Affairs Assistant needed? No Secondary Emergency Contact: Jono Fragoso Mobile Relation: Son Past Surgical History: Past Surgical History: Procedure Laterality Date EYE SURGERY HYSTERECTOMY Immunization History: Immunization History Administered Date(s) Administered Pfizer SARS-CoV-2 Vaccination 10/02/2020, 10/30/2020, 05/12/2021 Active Problems: Medical Problems Problem List * (Principal) Stroke-like symptoms Closed intertrochanteric fracture of hip, left, initial encounter (HCC) Severe malnutrition (CMS/HCC) (HCC) Chest pain Dilation of renal pelvis Closed displaced intertrochanteric fracture of left femur ([facility]) Isolation/Infection: No active isolations No active infections Nurse Assessment: Last Vital Signs: BP 131/90 (Patient Position: Sitting) Pulse 75 Temp 36.8 C (98.3 F) (Temporal) Resp 16 Ht 5' 6 (1.676 m) Wt 133 lb 2.5 oz (60.4 kg) SpO2 98% BMI 21.49 kg/m Last documented pain score (0-10 scale): Last Weight: Wt Readings from Last 1 Encounters: 05/16/25 133 lb 2.5 oz (60.4 kg) Mental Status: ADORE Patient Mental Status: oriented IV Access: ADORE IV Access: None Nursing Mobility/ADLs: Walking Minimal assistance Transfer Minimal assistance Bathing Minimal assistance Dressing Minimal assistance Toileting Minimal assistance Feeding Independent Ballet [employer] Artistic Director Total assistance Med Delivery no Wound Care Documentation and Therapy: Wound/Incision 04/21/25 Incision Leg Anterior;Left;Upper (Active) Site Assessment Clean;Dry 05/16/25 09 Opal-Wound Assessment Ecchymotic 05/14/256 Odor None 05/16/25 09 Drainage Amount None 05/16/25899 Primary Dressing Open to air 05/16/25 09 Dressing Status Other (Comment) 05/10/25 2304 State of Healing Closed wound edges 05/12/25 1546 Number of days: 25 Wound/Incision 05/10/25 Pressure Injury Coccyx (Active) Site Assessment Fragile;Red 05/14/252155 Opal-Wound Assessment Blanchable erythema 05/16/25 09 Odor None 05/16/25899 Drainage Amount None 05/16/25 09 Treatments Cleansed;Pharmaceutical agent 05/16/25899 Primary Dressing Open to air 05/16/25 09 Dressing Status Clean, dry & intact 05/16/25 09 Number of days: 6 Elimination: Continence: Bowel yes Bladder: no Urinary Catheter: {[facility] Urinary Catheter:[id number]} Colostomy/Ileostomy/Ileal Conduit: None Date of Last BM: 05/16 Intake/Output Summary (Last 24 hours) at 2025 1038 Last data filed at 2025 0115 Gross per 24 hour Intake -- Output 1900 ml Net -1900 ml I/O last 3 completed shifts: In: 240 (4 mL/kg) [P.O.:240] Out: 1900 (31.5 mL/kg) [Urine:1900 (0.9 mL/kg/hr)] Weight: 60.4 kg Safety Concerns: none Impairments/Disabilities: none Nutrition Therapy: Current Nutrition Therapy: Oral diet: general Routes of Feeding: oral Liquids: thin liquids Daily Fluid Restriction: no Last Modified Barium Swallow with Video (Video Swallowing Test): not done Treatments at the Time of Hospital Discharge: Respiratory Treatments: Oxygen Therapy: is not on home oxygen therapy. Ventilator: No ventilator support Rehab Therapies: physical therapy and occupational therapy Weight Bearing Status/Restrictions: no restriction Other Medical Equipment (for information only, NOT a DME order): walker Other Treatments: Patient's personal belongings (please select all that are sent with patient): none RN SIGNATURE: MANAGEMENT/SOCIAL WORK SECTION Inpatient Status Date: 05/10/25 Discharging to Facility/ Agency Name: [facility] Address: [address] [place] [address] Personnel Technician/Bill Of Materials Clerk signature: ICIAN SECTION Name: Maday Alfaro Prognosis: good Condition at Discharge: stable Rehab Potential (if transferring to Rehab): good Recommended Labs or Other Treatments After Discharge: The individual is being admitted to a nursing facility directly from an [facility] or a unit of a [facility] that is not operated by or licensed by [facility] under section 5119.14 or 5160-3-15.1 5 The individual requires the level of services provided by a nursing facility for the condition for which he or she was treated in the hospital and, Physician Certification: I certify the above information and transfer of Maday Alfaro is necessary for the continuing treatment of the diagnosis listed and that she requires fci facility for less than 30 days. Update Admission H&P: No change in H&P PHYSICIAN SIGNATURE: The following attachments cannot be sent through Care Everywhere.Smoking: Not Just Harmful to Your Lungs and Heart (Macedonian)documented in this encounter [facility] 05-12-2025 Note Patient declined smo vazquez cessation counseling. Accepting of handout with contact information for future reference. [facility] 05-11-2025 Note OCCUPATIONAL THERAPY [facility]'s Name/MRN: Maday Alfaro ([id number]) Date: 05/11/2025 Evaluation is being deferred at present because pt with pending imaging . Elyse Montes OT [facility] 05-11-2025 Consult note Associated Order (s): IP CONSULT TO NEUROLOGY NEUROLOGY INITIAL CONSULTATION DATE/TIME: 2024 [] PATIENT s NAME: MADAY ALFARO DATE OF : [birth year] AGE: 84 GENDER: Female ROOM: 251/A PHYSICIAN REQUESTING CONSULT: Dr. Bunn NEUROLOGIST: Mikala Camargo MD DATE OF ADMISSION: 05-10-25 REASON FOR NEUROLOGY CONSULTATION: Altered mental status with dysphasia and right-sided facial droop. HISTORY OF PRESENT ILLNESS ED HISTORY OF PRESENT ILLINESS Maday Alfaro who was admitted to the Emergency Department at [facility] on 05-10-25. She presented with altered mental status after a fall. ED vitals: BP: 107/61 HR: 67 RR: 16 O2 sat: 98 % HT: 66 ins Wt.: 122 Lbs. BMI: 20 (Obese Class: Normal) Ms. Alfaro cannot give me a neurological history. NEURO-RELEVANT SYMPTOM PROFILE Onset of symptoms: 05-10-25 Description of symptoms: Altered mental status with dysphasia and right-sided facial droop. Concern for a fall. Subjective Ms. Alfaro presents with confusion and a recent fall at the half-way. She expresses a strong desire to be active, stating readiness to get out and dance. She does not recall the fall or episodes of confusion. Currently Ms. Alfaro takes Dilantin 200 mg bid for seizure control, and she informed me that her Dilantin level was checked about a month ago, and states that no adjustment was made to her medication following the last Dilantin level. The main concerns we discussed include confusion, impaired memory of recent events, and ongoing seizure management. .909] Negative acute neurologic symptoms: No headaches or head pain, no dizziness/vertigo, no lightheadedness or syncopal episodes, no diplopia or blurred vision, no visual impairment, no auditory impairment, no facial paresis or paralysis, no aphasia or dysarthria no dysphagia, no extremity paresis or paralysis, no extremity sensory deficit, no tremor, no involuntary movement, no seizures. NEURO-RELEVANT REVIEW OF SYSTEMS NEUROLOGY Aphasia Ataxia Balance impairment Cognitive/Memory impairment CVA/TIA Diplopia Dizziness Dysesthesia Dystonia Facial asymmetry Falls, unintended Fasciculation Gait disorder Headache/migraine Hearing impairment Hyperesthesia Hypoesthesia Inattentiveness Insomnia Involuntary movement/Tremor Major neurocognitive disorder (dementia) Memory impairment Multiple sclerosis Myasthenia Myopathy Narcolepsy Near-syncope Neuropathy Numbness Paresthesia Parkinsonism/Parkinson's disease Restless leg syndrome Seizures/epilepsy Speech Difficulty Syncope Tremor (Essential) Vestibular balance dysfunction Weaknesses ABNORMAL NEGATIVE CARDIOVASCULAR Angina Bradycardia Cardiac pacemaker Cardiac stent Cardiomegaly Claudication Coronary artery disease ECG, abnormal Heart attack Heart murmur Hypertension Irregular heart rhythm/fibrillation Palpitation Peripheral edema, pitting Peripheral vascular disease Tachycardia ABNORMAL NEGATIVE DERMATOLOGY NEGATIVE EAR, NOSE, & THROAT NEGATIVE ENDOCRINOLOGY NEGATIVE GASTROINTESTINAL NEGATIVE GENERAL NEGATIVE GENITOURINARY NEGATIVE GYNECOLOGY NEGATIVE HEMATOLOGY NEGATIVE MUSCULOSKELETAL Arthralgia Arthritis Back pain Back stiffness Cervicalgia Fibromyalgia Muscle cramps/spasm Myalgia Myopathy Nuchal rigidity Osteoarthritis ABNORMAL NEGATIVE NECK NEGATIVE OPHTHALMOLOGY NEGATIVE ORTHOPEDIC Deformities Fracture: Hip and femur Hip & knee & ankle injury Tendon injury Tumors Shoulder & Elbow & hand injury ABNORMAL NEGATIVE PSYCHIATRY/PSYCHOLOGY Alcohol use disorder Anxiety Behavioral disorder Bipolar disorder Depression Hallucination Hypersomnia Insomnia Irritability/agitation Mood disorder Nicotine dependence PTSD Sleep disturbance Suicidal Ideation ABNORMAL NEGATIVE PULMONARY NEGATIVE RHEUMATOLOGY Gout Lupus Osteoarthritis Osteoporosis Polymyalgia rheumatica Polymyositis Psoriasis arthritis Rheumatoid arthritis Scleroderma Sj gren's Syndrome Tendinitis Vasculitis ABNORMAL NEGATIVE SLEEP NEGATIVE SUPPLEMENTAL Vitamin D deficiency NEURO-RELEVANT PAST MEDICAL/SURGERY HISTORY NEURO-RELEVANT MEDICAL HISTORY NEUROLOGY Seizures Chronic insomnia CARDIOLOGY Hypertension ORTHOPEDIC LEFT fracture femur LEFT hip fracture NEURO-RELEVANT PAST SURGERY HISTORY NEUROLOGY None GYNECOLOGY Total hysterectomy OPTHALMOLOGY Eye surgery ORTHOPEDIC Hip fracture Vitamin D deficiency NEURO-RELEVANT MEDICATION/DRUG/OTC REVIEW NEURO-RELEVANT OUTPATIENT TREATMENT NEUROLOGY Aspirin 81 mg daily Dilantin 200 mg bid OPTHALMOLOGY Acetaminophen 500 mg prn Oxycodone 5 mg prn PSYCHIATRY Melatonin 5 mg qhs/temazepam 15 mg qhs Sertraline 100 mg qam RHEUMATOLOGY Fosamax 70 mg/week SUPPLEMENTAL Vitamin D2 50,000 units weekly DRUG ALLERGIES Bee Venom Anaphylaxis Lidocaine Shortness of breath Penicillin G Rash Penicillins Nausea Only Simvastatin Rash Sulfa Antibiotics Nausea Only Varenicline Nausea And Vomiting NEURO-RELEVANT SOCIAL HISTORY Currently smoking: Daily Currently vaping: No Current alcohol use: Not currently Current caffeine use: Not known. Current drug use non-medication: No ADDITIONAL: . Currently living in a nursing facility NEURO-RELEVANT RELEVANT FAMILY HISTORY Family history is significant: Stroke, heart disease, coronary artery disease. NEURO-RELEVANT NEURODIAGNOSTIC LAB RESULTS ELECTROLYTES PANEL Sodium: (N: 136-145) 134 Potassium: (N: 3.5-5.1) 3.6 RENAL PANEL BUN: (N: 9-23) 10 Creatinine: (N: 0.57-1.11) 0.44 GFR: (N: >60) >90 Total protein: (N: 6.4-8.3) 5.7 Albumin: (N: 3.5-5.0) 3.0 Calcium: (N: 8.8-10) 9.1 Magnesium: (N: 1.6-2.6) not available DIABETES PANEL Glucose: (N: 82-115) 106 HbA1c: (N: <5.7- <6.5) Pending HEPATIC PANEL Alkaline phosphatase: (N: 40-140) 190 AST: (N: <34) 26 ALT: (N: <30) 7 Total Bilirubin: (N: <1.2) 1.2 Lactic acid: 1.6 CARDIAC PANEL CK: (N: 30-185) Troponin HS serial baseline: (N: <14) <3 Troponin HS serial second: (N: <14) <3 NT PRO BNP: (N: <450) Protime: (N: 0.9-12) 10.9 INR: (N: 0.9-1.1) 1.0 APTT: (N: 20-30.5) 29.8 LIPID PANEL Triglyceride: (N: <150) 50 HDL: (N: >60) 72 LDL: (N: <100) 96 Cholesterol: (N: <200) 178 CBC WBC: (N: 3.6-10.7) 5.4 RBC: (N: M: 3.8-5.2) 3.10 Hemoglobin: (N: M: 12-17. F: 11.7-16.0) 10.7 Hematocrit: (N:35-47) 32.4 MCV: (N: 77-99) 104.5 MCH: (N: 26-34) 34.5 MCHC: (N: 30.5-36) 33.0 Platelet count: (N: 140-440) 204 MPV: (N: 9-12.7) 9.6 ANEMIA PANEL Vitamin B12: (N: 213-816) Pending Folate: (N: 7-31.4) Pending Vitamin D: (N: 30-100) Pending THYROID PANEL TSH: N: 0.35-4.94) not available MISCELLANEOUS Dilantin level: (N: 10-20) 49.6 Dilantin toxicity URINALYSIS: Turbid with few bacteria Nitrite: Negative CT HEAD without contrast No acute intracranial lesion. Diffuse cortical atrophy. Chronic subcortical, periventricular white matter with small vessel ischemic changes. CT CERVICAL SPINE No evidence of acute fracture or traumatic subluxation of the cervical spine. Age indeterminant mild superior endplate compression fracture deformity T2. Trace of pleural thickening vs pleural effusion on the left. Partial visualization of 2.0 x 1.5 cm nodule left lung apex medially. Heterogeneous bulky thyroid gland with multiple nodules measuring up to at least 1.[address] THORACIC SPINE Superior endplate compression T2, age indeterminate. Osteopenia. Small left pleural effusion. 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 Left lung apex medial irregular 1.[address] LUMBAR No evidence of acute lumbar spine fracture or traumatic subluxation. Degenerative spondylosis lumbar spine with moderate to severe spinal stenosis at L3-L4, L4-L5 as well as moderate to severe bilateral foraminal stenosis with facet hypertrophy. 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 CHEST X-RAY No acute cardiopulmonary disease. X-RAY LEFT HAND AND RIGHT HIP No acute fractures or dislocation. Degenerative changes of the LEFT hand and wrist. Subtle lucency of the right proximal femur transcervical region which may reflect a nondisplaced fracture versus artifact. Redemonstration of the comminuted left proximal femur intertrochanteric fracture with avulsion of the lesser trochanter status post open reduction internal fixation with intramedullary ras and proximal interlocking screws (acute fracture 04/21/2025). EKG Sinus rhythm (68/min) LEFT anterior fascicular block. ROUTINE EEG/VIDEO Pending: Dilantin toxicity NEUROLOGICAL EXAMINATION Observation Mr. Alfaro is lying comfortably in bed, in no acute distress. Objective - Lab results: phenytoin (Dilantin) level 49.6 (reference <20; target 16-17) drawn approximately one month ago - Confusion noted during encounter - Impaired mobility and increased fall risk discussed; advised not to get up or move around unassisted - No additional physical or neurologic examination Level of cooperation Pleasant: Agreeable manners, & behavior. Cooperative: Willingness & ability to work in a common effort. Attitude Normal Behavior & psychomotor activity Lethargic: Facial expression Normal: Proper to the medical/neurologic situation. Speech Hypophonic Cognitive evaluation Memory: Recall of medical data: Impaired Attentive: Lethargic Orientation: 7 Date, Month, Year, Day, Place, City, and President of [facility]: Impaired CEREBELLAR FUNCTION No tremor. No extraneous movements. No dysmetria. Stance/Gait: Not evaluated CRANIAL NERVES II-XII: Normal NEUROMUSCULAR Tone: Normal for age. Wasting of the upper extremities: Absent in the upper extremities Wasting of the lower extremities: Absent in the lower extremities Distal extremities edema: None POWER UPPER: Attempt: Lethargic POWER LOWER: Attempt: Lethargic Moves all limbs spontaneously and purposefully. DEEP TENDON REFLEXES Biceps (C5-C6) R: 2+ L: 2+ Triceps (C7-C8) R: 2+ L: 2+ Patella (L3-L4) R: 2+ L: 2+ Ankle (S1-S2) R: 2+ L: 2+ Extensor Plantar Response R: Negative Extensor Plantar Response L: Negative SENSORY Sensation to light touch: Normal bilaterally NEUROLOGICAL DECISION MAKING PRIMARY NEUROLOGICAL COMPLAINT Altered mental status with dysphasia and right-sided facial droop. PRIMARY NEUROLOGICAL DIAGNOSIS E/M/C ETIOLOGY of COMPLIANT T42.0X1A Dilantin toxicity MANIFESTATION of COMPLIANT G31.84 Mild cognitive impairment of uncertain or unknown etiology COMORBIDITY ASSOCIATED WITH COMPLIANT E87.1 Hyponatremia E44.1 Mild protein-calorie malnutrition SECONDARY DIAGNOSIS CT imaging confirmation CT CERVICAL SPINE Partial visualization of 2.0 x 1.5 cm nodule left lung apex medially. Heterogeneous bulky thyroid gland with multiple nodules measuring up to at least 1.[address] THORACIC SPINE Superior endplate compression T2, age indeterminate. Osteopenia. Small left pleural effusion. 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 Left lung apex medial irregular 1.[address] LUMBAR No evidence of acute lumbar spine fracture or traumatic subluxation. Degenerative spondylosis lumbar spine with moderate to severe spinal stenosis at L3-L4, L4-L5 as well as moderate to severe bilateral foraminal stenosis with facet hypertrophy. 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 NEUROLOGICAL DIAGNOSIS ASSESSMENT & COMPLEXITIES (D/D) No clinical or neuroimaging evidence of acute cerebrovascular event. CLINICAL PRESENTATION & DECISION ANALYSIS/DIFFERENTIAL DIAGNOSIS ASSESSMENT Ms. Alfaro presents with acute confusion and a recent fall, both likely secondary to Dilantin toxicity, as evidenced by a serum phenytoin level of 49.6 (therapeutic range <20). Her seizure disorder is managed with phenytoin (Dilantin) 200 mg bid. Visit diagnoses suggestions (1) - Epilepsy, unspecified, not intractable, without status epilepticus [G40 DIFFERENTIAL DIAGNOSIS Differential diagnosis for confusion and fall includes Dilantin toxicity, Metabolic encephalopathy, Infection, Stroke, and other Medication effects, but the elevated Dilantin level and clinical context strongly support Dilantin toxicity as the primary cause. NEURO-DIAGNOSTICS REQUESTED Daily trough total Dilantin levels (stat) Inpatient EEG Vitamin B12/folate levels NEUROLOGY TREATMENT RECOMMENDATION/GOALS NEURO PHARMACOTHERAPY NEURO NON-PHARMACOTHERAPY Temporarily discontinue Dilantin therapy Stop Dilantin administration until the daily serum levels decrease to the normal range. Once Dilantin levels have normalized, restart the medication at a reduced dose, decreasing from four capsules per day to three capsules per day to avoid future toxicity. Monitor for clinical improvement over the next three to four days as Dilantin levels decline. I will reassess Ms. Alfaro s clinical status tomorrow to evaluate progress and adjust management as needed. I advised strict fall precautions and instruct Ms. Alfaro not to get up or move around unassisted due to current neurological impairment and increased fall risk. I requested an inpatient EEG to evaluate for continued seizures. I also requested vitamin B12/folate levels for vitamin B12/folate deficiency NEURO-TREATMENT COMPLEXITIES/ADVERSE EFFECT(S) DRUG-DRUG INTERACTION Adverse effects of phenytoin toxicity include confusion, impaired coordination, increased risk of falls, and encephalopathy, as discussed. No other medications or drug-drug interactions are mentioned or recommended at this time. PROGNOSIS FOR NEUROLOGIC RECOVERY Neurological prognosis for recovery is excellent. NEUROLOGY REEVALUATION WITH DR. Camargo TIMELINE: I will re-evaluate Ms. Alfaro on May 12 during Neurology Rounds. 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 This thoroughness was essential for me to engage in a [id number] interview and conduct a focused neurological examination, aimed at better understanding Ms. Alfaro's neurologic complaints. During our discussion, I took the opportunity to explain the current diagnosis, detailing its development, potential alternative diagnoses, and various treatment options. I made sure to involve her in the decision-making process, discussing what we can anticipate as we proceed and ensuring she felt informed and comfortable with the neurological diagnosis and its underlying causes. Together, we carefully reviewed the results of the relevant neurodiagnostic tests, and I communicated the benefits and risks of the current neurologic management plan clearly and straightforwardly. I discussed the proposed care plan, ensuring it was at a level that she could understand. She voiced her agreement with the current neurological care. REFERRING PHYSICIAN: I updated the referring physician, & the treatment team with my Medical Decision Making. Please note With Ms. Alfaro s approval, I created this report using [employer] voice recognition system, [employer], and [employer]-engine pilot. I conducted an accurate and prompt marble rubber and a thorough editorial review. Acknowledging that some subtle contextual errors may still be present is essential. These errors can arise from the misrecognition of spoken words, which is common when integrating human voice with advanced digital technologies. This interaction can sometimes lead to misunderstandings or misinterpretations in the text. Please let me know if you notice any errors, discrepancies, or inconsistencies in this report. Your feedback is valuable in helping me maintain the quality and accuracy of the information presented. Thanks for your understanding and cooperation. Mikala Camargo MD Comprehensive Neurologist [phone] [facility] 05-11-2025 Note PHYSICAL THERAPY [facility] Name/MRN: Maday Alfaro ([id number]) Date: 05/11/2025 Evaluation is being deferred at present because pt with pending imaging . Leif Biggs, PT [facility] 05-11-2025 Note Speech-Site Inspector ology Patient passed the Nursing Swallowing Screening. As per stroke policy, no formal dysphagia evaluation is required. Completed speech orders. [facility] 05-11-2025 Note Sinus rhythm Left anterior fascicular block Abnormal R-wave progression, early transition Electronically Signed On 05-11-2025 01:13:38 EDT by Derick Reis [facility] 05-11-2025 Note Sinus rhythm Left anterior fascicular block Abnormal R-wave progression, early transition Electronically Signed On 05-11-2025 01:13:38 EDT by Derick Reis [facility] 05-11-2025 Note IMPRESSION: Sinus rhythm Left anterior fascicular block Abnormal R-wave progression, early transition Electronically Signed On 05-11-2025 01:13:38 EDT by [facility] 05-10-2025 Emergency department Note [facility] called back on Ashley RN on phone confirmed 200 mg of Dilantin 2x a day [facility] 05-10-2025 Emergency department Note [facility] called back on Ashley RN on phone confirmed 200 mg of Dilantin 2x a day [place] applied. Pt tolerated without difficulty. Last known well per family a couple days ago. Dr Castaneda at bedside. Dr Painter at bedside. Introduced myself as pt liaison and explained role and provided support to family , pt arrived via EMS. Emergency Department Encounter [facility] CARDIAC PROGRESSIVE CARE UNIT PCU 2E Patient: Maday Alfaro : 1940 Date of Evaluation: 05/10/2025 ED Supervising Physician: Blayne Castaneda DO I personally evaluated Maday Alfaro and made/approved the management plan and take responsibility for the patient management. This will serve as my Supervisory note and shared attestation. I did perform a substantive portion of the visit including all aspects of the Medical Decision Making. I wore appropriate PPE for the entirety of this encounter. In brief, Maday Alfaro is a 84 y.o. that presents to the emergency department with complaints of altered mental status. Patient arrives from nursing facility after being there from a recent hospitalization for hip fracture and recent functional decline. She arrives with right-sided facial droop, dysarthria, and weakness. She has no specific complaints. Focused exam: Elderly female who appears ill. Handling her own secretions without stridor or tachypnea. No increased work of breathing. 2+ bilateral radial pulses with warm distal extremities. Abdomen soft nontender. Patient is disoriented but following commands. There is a partial gaze palsy, right-sided facial droop, slight right sided upper extremity drift with right-sided dysmetria and bilateral lower extremity drift that hits bed. Brief ED course/MDM: 84-year-old female arrives with last known well of greater than 24 hours and right sided deficits concerning for missed stroke. Patient arrives from SNF after previously breaking her hip and having consistent functional decline over the last several weeks to month. History is provided with help of her son who arrived at the bedside. Meets no criteria for intervention given the length since her last known well. Stroke B order set placed and evaluated for other causes such as UTI. Admitted to telemetry. CRITICAL CARE TIME Total Critical Care time was 17 minutes, excluding separately reportable procedures. There was a high probability of clinically significant/life threatening deterioration in the patient's condition which required my urgent intervention and CODE STATUS discussion with the patient's son. All diagnostic, treatment, and disposition decisions were made by myself in conjunction with the PARTH. For all further details of the patient's emergency department visit, please see their documentation. (Comment: Please note this report has been produced using speech recognition software and may contain errors related to that system including errors in grammar, punctuation, and spelling, as well as words and phrases that may be inappropriate. If there are any questions or concerns please feel free to contact the dictating provider for clarification.) Blayne Castaneda DO [employer] Blayne Castaneda DO 05/11/25 1652 Emergency Department Encounter Location: [facility] ED Patient: Maday Alfaro : 1940 Date of evaluation: 05/10/2025 ED Provider: Jose Guzmán DO Chief Complaint Patient presents with Fall Altered Mental Status Time received sign-out: 4:30 PM Maday Alfaro was checked out to me by Dr. Painter. Please see his/her initial documentation for details of the patient's initial ED presentation, physical exam and completed studies. In brief, Maday Alfaro is a 84 y.o. adult that presented to the emergency department for the evaluation of an unwitnessed fall at [facility]. Son reports confusion for the past few days. Neurodeficits, outside window for intervention. Disposition pending: CT imaging. Final ED Course and MDM: Maday Alfaro is a 84 y.o. whose care was signed out to me by the outgoing provider. In brief, patient presented for an unwitnessed fall, concerns for stroke >24 hours onset. Imaging reveals no evidence of ICH or vertebral fractures. There is an age-indeterminate superior endplate compression fracture T2, osteopenia, small left pleural effusion, descending intrathoracic aortic aneurysm measuring 5.6cm (CT f/u 3-6 months). 1.5cm nodule L lung apex (f/u [address] Bunn will accept the patient to her service for further care. Medications sodium chloride 0.9 % infusion (50 mL/hr IntraVENous New Bag 05/10/25 1624) sodium chloride 0.9 % bolus 250 mL (250 mL IntraVENous New Bag 05/10/25 [id number]) I have reviewed and interpreted all of the currently available lab results and diagnostics from this visit: Results for orders placed or performed during the hospital encounter of 05/10/25 POCT glucose meter Collection Time: 05/10/25 2:13 PM Result Value Ref Range Glucose 200 (H) 70 - 100 mg/dL ECG 12 lead if not already done by Squad Collection Time: 05/10/25 2:24 PM Result Value Ref Range Heart Rate 63 bpm QRSD Interval 93 ms QT Interval 407 ms QTC Interval 418 ms P Lott 0 degrees QRS Lott -63 degrees T Wave Lott 59 degrees WA Interval 181 ms CBC auto differential Collection Time: 05/10/25 2:28 PM Result Value Ref Range Auto WBC 7.6 3.6 - 10.7 10*3/uL RBC 3.36 (L) 3.80 - 5.20 10*6/uL Hemoglobin 11.7 11.7 - 16.0 g/dL Hematocrit 35.5 35.0 - 47.0 % MCV 105.7 (H) 77.0 - 99.0 fL MCH 34.8 (H) 26.0 - 34.0 pg MCHC 33.0 30.5 - 36.0 % RDW 17.9 (H) 11.5 - 15.0 % Platelets 215 140 - 440 10*3/uL MPV 9.4 9.0 - 12.7 fL nRBC 0.0 0.0 - 2.0 /100 WBCs Neutrophils Relative 75.5 38.0 - 82.0 % Lymphocytes Relative 9.8 (L) 15.0 - 45.0 % Monocytes Relative 13.0 5.0 - 13.0 % Eosinophils Relative 0.9 0.0 - 6.0 % Basophils Relative 0.3 0.0 - 2.0 % Immature Grans % 0.5 0.0 - 2.0 % Neutrophils Absolute 5.7 1.8 - 7.5 10*3/uL Lymphocytes Absolute 0.7 (L) 1.0 - 4.3 10*3/uL Monocytes Absolute 1.0 (H) 0.0 - 0.9 10*3/uL Eosinophils Absolute 0.1 0.0 - 0.5 10*3/uL Basophils Absolute 0.0 0.0 - 0.2 10*3/uL Immature Grans Absolute 0.0 <0.1 10*3/uL Serial Troponin, High Sensitivity Collection Time: 05/10/25 2:28 PM Result Value Ref Range Troponin HS Serial Baseline <3 <=14 ng/L PROTIME/INR & PTT Collection Time: 05/10/25 2:28 PM Result Value Ref Range PROTHROMBIN TIME 10.9 9.0 - 12.0 s INR 1.0 0.9 - 1.1 APTT 29.8 20.0 - 30.5 s Lactic acid with reflex Collection Time: 05/10/25 2:28 PM Result Value Ref Range LACTIC ACID 1.6 0.5 - 2.2 mmol/L Comprehensive metabolic panel Collection Time: 05/10/25 2:28 PM Result Value Ref Range SODIUM 132 (L) 136 - 145 mmol/L POTASSIUM 4.3 3.5 - 5.1 mmol/L CHLORIDE 98 98 - 107 mmol/L CARBON DIOXIDE 24 23 - 31 mmol/L ANION GAP 10 3 - 13 mmol/L UREA NITROGEN 12 9 - 23 mg/dL CREATININE 0.61 0.57 - 1.11 mg/dL GLUCOSE 209 (H) 82 - 115 mg/dL CALCIUM 9.5 8.8 - 10.0 mg/dL AST (SGOT) 33 <34 U/L ALT 11 <30 U/L ALKALINE PHOSPHATASE 211 (H) 40 - 150 U/L ALBUMIN 3.2 (L) 3.4 - 4.8 g/dL BILIRUBIN, TOTAL 1.3 (H) <1.2 mg/dL TOTAL PROTEIN 6.4 6.4 - 8.3 g/dL eGFR 88.8 >60.0 mL/min/1.73m*2 CT head wo IV contrast Final Result 1. Atrophy and evidence of small-vessel ischemic disease. This is not unusual for patient age. 2. No CT evidence of an acute intracranial process. Report Dictated on Electronically Signed By: Yasmani Churchill MD Electronically Signed Date/Time: 05/10/2025 3:16 PM EDT XR chest 1 view Final Result 1. No focal infiltrates. Report Dictated on Electronically Signed By: Yasmani Churchill MD Electronically Signed Date/Time: 05/10/2025 3:16 PM EDT XR hand 3+ views left Final Result No evidence for acute fracture or dislocation. Degenerative changes of the hand and wrist Report Dictated on Electronically Signed By: Osmar Blake MD Electronically Signed Date/Time: 05/10/2025 2:[address] thoracic spine wo IV contrast (Results Pending) CT lumbar spine wo IV contrast (Results Pending) CT cervical spine wo IV contrast (Results Pending) Final Impression 1. Stroke-like symptoms 2. Altered mental status, unspecified altered mental status type 3. Declining functional status DISPOSITION Admit 05/10/2025 03:07:35 PM (Please note that portions of this note may have been completed with a voice recognition program. Efforts were made to edit the dictations but occasionally words are mis-transcribed.) DO Jose Mccall DO Resident 05/11/25 042 Cosigned by Blayne Castaneda DO at 05/11/2025 4:54 PM EDT EMERGENCY DEPARTMENT ENCOUNTER Pt Name: Maday Alfaro Birthdate 1940 Date of evaluation: 05/10/2025 ED Provider: Raheel Painter MD CHIEF COMPLAINT Chief Complaint Patient presents with Fall Altered Mental Status HISTORY OF PRESENT ILLNESS (Location/Symptom, Timing/Onset, Context/Setting, Quality, Duration, Modifying Factors, Severity) Note limiting factors. I wore appropriate PPE for the entirety of this encounter. HPI Maday Alfaro is a 84 y.o. adult who presents to the [facility] a [facility] this morning and was found to be altered, oriented x 1-2 when normally she is oriented to 4. She has been confused over the last few days per her son. She is a full code as far as he knows. She was admitted to the SNF earlier this month after hip ORIR 04/21/2025. She is not anticoagulated. Her CT head, chest x-ray, EKG, troponin, CBC, lactate, PT/INR were all unremarkable. CMP showed hyponatremia to 132 is improved from prior 129 11 days ago. Nursing Notes were reviewed. Limitations to history: Altered mental status/confusion Outside historians: Family son REVIEW OF SYSTEMS Review of Systems Pertinent positives and negatives as per HPI. PAST MEDICAL HISTORY Medical History[1] SURGICAL HISTORY Surgical History[2] CURRENT MEDICATIONS Previous Medications ACETAMINOPHEN (TYLENOL) 500 MG TABLET Take 2 tablets (1,000 mg) by mouth every 6 hours as needed for mild pain (1-3). ALENDRONATE (FOSAMAX) 70 MG TABLET Take 1 tablet by mouth every 7 days. ASPIRIN 81 MG CHEWABLE TABLET Chew 1 tablet in the morning. ENOXAPARIN (LOVENOX) 30 MG/0.3ML SOLUTION PREFILLED SYRINGE Inject 0.3 mL (30 mg) under the skin every 12 hours. ERGOCALCIFEROL (VITAMIN D2) 1.25 MG (64832 UT) CAPSULE Take 1 capsule (1.25 mg) by mouth 1 (one) time per week. LISINOPRIL 20 MG TABLET Take 20 mg by mouth daily. MELATONIN 5 MG TABLET Take 1 tablet (5 mg) by mouth Nightly. OXYCODONE (ROXICODONE) 5 MG IMMEDIATE RELEASE TABLET Take 1 tablet (5 mg) by mouth every 6 hours as needed for severe pain (7-10). PHENYTOIN ER (DILANTIN) 100 MG CAPSULE Take 200 mg by mouth in the morning and 200 mg before bedtime. SERTRALINE (ZOLOFT) 100 MG TABLET TEMAZEPAM (RESTORIL) 15 MG CAPSULE Take 15 mg by mouth every 24 hours as needed. ALLERGIES Bee venom, Lidocaine, Penicillins, Sulfa antibiotics, Varenicline, Penicillin g, and Simvastatin FAMILY HISTORY Family History[3] SOCIAL HISTORY Social History[4] SCREENINGS Percival Coma Scale Best Eye Response: Spontaneous Best Verbal Response: Confused Best Motor Response: Localizes pain Nellie Coma Scale Score: 13 NIH Stroke Scale 1A. Level of Consciousness: Arouses to Minor Stimulation 1B. Ask Month and Age: No Questions Right 1C. Blink Eyes & Squeeze Hands: Performs Both Tasks 2. Best Gaze: Normal 3. Visual: Partial Hemianopia 4. Facial Palsy: Minor Paralysis 5A. Motor - Left Arm: No Drift 5B. Motor - Right Arm: Drift 6A. Motor - Left Leg: No Effort Against [place] 6B. Motor - Right Leg: Drift 7. Limb Ataxia: Present in One Limb 8. Sensory Loss: Normal 9. Best Language: No Aphasia 10. Dysarthria: Klnv-ot-Slvmqzqe Dysarthria 11. Extinction and Inattention: No Abnormality NIH Stroke Scale: 12 PHYSICAL EXAM ED Triage Vitals [05/10/25 1352] Temp Heart Rate Resp BP 36.7 C (98.1 F) 67 16 107/61 SpO2 Temp Source Heart Rate Source Patient Position 98 % Oral Monitor -- BP Location FiO2 (%) -- -- Physical Exam Constitutional: Appearance: She is well-developed. HENT: Head: Normocephalic and atraumatic. Comments: Nontender to palpation. No raccoon eyes or Main sign Mouth/Throat: Mouth: Mucous membranes are dry. Eyes: Extraocular Movements: Extraocular movements intact. Conjunctiva/sclera: Conjunctivae normal. Pupils: Pupils are equal, round, and reactive to light. Cardiovascular: Rate and Rhythm: Normal rate and regular rhythm. Pulses: Normal pulses. Radial pulses are 2+ on the right side and 2+ on the left side. Heart sounds: Normal heart sounds. Pulmonary: Effort: Pulmonary effort is normal. Breath sounds: Normal breath sounds. Abdominal: General: There is no distension. Palpations: Abdomen is soft. Tenderness: There is no abdominal tenderness. There is no right CVA tenderness, left CVA tenderness or guarding. Musculoskeletal: Cervical back: No rigidity or tenderness. Right lower leg: No edema. Left lower leg: No edema. Comments: Right thumb PIP edematous, warm to the touch, and tender to palpation. + midline thoracic and lumbar tenderness. Skin: General: Skin is warm and dry. Capillary Refill: Capillary refill takes less than 2 seconds. Neurological: Mental Status: She is alert. She is disoriented. Her stroke exam was remarkable for wrong month and age, abnormal znyetu-hg-lukj testing, left leg with no effort against gravity, right leg with some effort against gravity but hits the bed, bilateral bidirectional nystagmus, right gaze preference, right facial droop, dysphasia. DIAGNOSTIC RESULTS RADIOLOGY Interpretation per the Radiologist below, if available at the time of this note: CT head wo IV contrast Final Result 1. Atrophy and evidence of small-vessel ischemic disease. This is not unusual for patient age. 2. No CT evidence of an acute intracranial process. Report Dictated on Electronically Signed By: Yasmani Chruchill MD Electronically Signed Date/Time: 05/10/2025 3:16 PM EDT XR chest 1 view Final Result 1. No focal infiltrates. Report Dictated on Electronically Signed By: Yasmani Churchill MD Electronically Signed Date/Time: 05/10/2025 3:16 PM EDT XR hand 3+ views left Final Result No evidence for acute fracture or dislocation. Degenerative changes of the hand and wrist Report Dictated on Electronically Signed By: Osmar Blake MD Electronically Signed Date/Time: 05/10/2025 2:50 PM EDT ED BEDSIDE ULTRASOUND: Performed by ED Physician - none LABS: Labs Reviewed CBC WITH AUTO DIFFERENTIAL - Abnormal Result Value Auto WBC 7.6 RBC 3.36 (*) Hemoglobin 11.7 Hematocrit 35.5 MCV 105.7 (*) MCH 34.8 (*) MCHC 33.0 RDW 17.9 (*) Platelets 215 MPV 9.4 nRBC 0.0 Neutrophils Relative 75.5 Lymphocytes Relative 9.8 (*) Monocytes Relative 13.0 Eosinophils Relative 0.9 Basophils Relative 0.3 Immature Grans % 0.5 Neutrophils Absolute 5.7 Lymphocytes Absolute 0.7 (*) Monocytes Absolute 1.0 (*) Eosinophils Absolute 0.1 Basophils Absolute 0.0 Immature Grans Absolute 0.0 COMPREHENSIVE METABOLIC PANEL - Abnormal SODIUM 132 (*) POTASSIUM 4.3 CHLORIDE 98 CARBON DIOXIDE 24 ANION GAP 10 UREA NITROGEN 12 CREATININE 0.61 GLUCOSE 209 (*) CALCIUM 9.5 AST (SGOT) 33 ALT 11 ALKALINE PHOSPHATASE 211 (*) ALBUMIN 3.2 (*) BILIRUBIN, TOTAL 1.3 (*) TOTAL PROTEIN 6.4 eGFR 88.8 POCT GLUCOSE METER UNSOLICITED RESULTS - Abnormal Glucose 200 (*) Narrative: Performed by: Fabienne Pickett, [address] [place] [id number] CLIA ID: [id number] HIGH SENSITIVITY TROPONIN, SERIAL BASELINE - Normal Troponin HS Serial Baseline <3 PROTIME & APTT - Normal PROTHROMBIN TIME 10.9 INR 1.0 APTT 29.8 LACTIC ACID WITH REFLEX - Normal LACTIC ACID 1.6 COMPREHENSIVE METABOLIC PANEL WITH MG REFLEX Narrative: The following orders were created for panel order Comprehensive Metabolic Panel with Mg Reflex. Procedure Abnormality Status --------- ------ Comprehensive metabolic ...[[id number]] Abnormal Final result Please view results for these tests on the individual orders. COMPLETE URINALYSIS WITH REFLEX TO CULTURE HIGH SENSITIVITY TROPONIN, SERIAL, SECOND TEST POCT GLUCOSE METER All other labs were within normal range or not returned as of this dictation. [facility] EMERGENCY DEPARTMENT COURSE ED Course as of 05/10/25 165 Sat May 10, 2025 1521 Troponin HS Serial Baseline: <3 [ML] 1521 LACTIC ACID: 1.6 Generalized seizure unlikely [ML] 1612 ECG 12 lead if not already done by Squad My independent interpretation: Normal sinus rhythm, no axis deviation. Normal WA and QT intervals. Normal QRS duration. No ST elevation or depression. [ML] ED Course User Index [ML] Raheel Painter MD Diagnoses as of 05/10/251654 Stroke-like symptoms Altered mental status, unspecified altered mental status type Declining functional status [facility] elements: The patient presented with chief complaint of confusion, fall. The differential diagnosis associated with this patient's presentation includes CVA, skull fracture, cervical spine fracture, sepsis. Our workup consisted of ordering/reviewing: CT head, chest x-ray, x-ray of the left hand, EKG, CBC, PT/INR and PTT, lactate, troponin, CMP with magnesium reflex, urinalysis with reflex to culture, straight catheterization, ipuce-dq-[id number] glucose, normal saline bolus and infusion. Diagnostic tests considered but not performed: CT of the neck was not performed because patient has no tenderness, no distracting injuries and was able to note when other sites body were tender. CTA was not performed because patient is outside the window for intervention and it would not climate change analyst in the ED. To aid in management, I performed an independent interpretation of EKG; see my interpretation elsewhere in the chart. I also reviewed external records from SNF. I discussed their care with Admitting team hospitalist. The patient will be Admitted. Patient is in agreement with this plan. Prescription medications considered but not prescribed: TNK (outside the time window) Medications sodium chloride 0.9 % infusion (has no administration in time range) sodium chloride 0.9 % bolus 250 mL (250 mL IntraVENous New Bag 05/10/25 1432) Vitals: Vitals: 05/10/25 1352 05/10/25 1445 BP: 107/61 Pulse: 67 69 Resp: 16 16 Temp: 36.7 C (98.1 F) TempSrc: Oral SpO2: 98% 100% REVAL: CONSULTS: None PROCEDURES: Unless otherwise noted below, none Procedures Patients symptoms are consistent with sepsis, severe sepsis, or septic shock (If yes use .sepsiscoremeasure): No FINAL IMPRESSION 1. Stroke-like symptoms 2. Altered mental status, unspecified altered mental status type 3. Declining functional status DISPOSITION Admit 05/10/2025 03:07:35 PM PATIENT REFERRED TO: No follow-up provider specified. DISCHARGE MEDICATIONS: New Prescriptions No medications on file (Comment: Please note this report has been produced using speech recognition software and may contain errors related to that system including errors in grammar, punctuation, and spelling, as well as words and phrases that may be inappropriate. If there are any questions or concerns please feel free to contact the dictating provider for clarification.) Raheel Painter MD (electronically signed) Emergency Medicine Provider [1] Past Medical History: Diagnosis Date Hypertension Seizures (HCC) [2] Past Surgical History: Procedure Laterality Date EYE SURGERY HYSTERECTOMY [3] Family History Problem Relation Name Age of Onset Stroke Mother Heart disease Father Heart attack Father Coronary artery disease Father [4] Social History Socioeconomic History Marital status: Tobacco Use Smoking status: Every Day Types: Cigarettes Smokeless tobacco: Never Vaping Use Vaping status: Never Used Substance and Sexual Activity Alcohol use: No Social Drivers of Health Transportation Needs: No Transportation Needs (04/21/2025) PRAPARE - Transportation Lack of Transportation (Medical): No Lack of Transportation (Non-Medical): No Intimate Partner Violence: Not At Risk (04/21/2025) Humiliation, Afraid, Rape, and Kick questionnaire Fear of Current or Ex-Partner: No Emotionally Abused: No Physically Abused: No Sexually Abused: No Housing Stability: Low Risk (04/21/2025) Housing Stability Vital Sign Unable to Pay for Housing in the Last Year: No Number of Times Moved in the Last Year: 1 Homeless in the Last Year: No Raheel Painter MD Resident 05/10/25 [id number] Cosigned by Blayne Castaneda DO at 05/11/2025 4:55 PM EDT Pt here to the ER via EMS after a fall today with altered mental status. Per EMS pt's baseline is A+O X3. Fall was unwitnessed. Pt does have hx of sz. Per EMS, nurse and SNF was on her first day and did not know pt. Unknown when pt's last sz was. Pt is A+O x2 at this time. Pt states she could not stand up and fell, hitting her head. Pt states she passed out. documented in this encounter [facility] 05-10-2025 Emergency department Note [place] applied. Pt tolerated without difficulty. [facility] 05-10-2025 History and physical note Attending History and Physical Admit Date: 05/10/2025 PCP: CHRISTIAN HARRISON NP CHIEF COMPLAINT: Altered mental status Reason for Admission: Lilly Hsu work up - out of window History Obtained From: patient, son, SNF records and Chart review HISTORY OF PRESENT ILLNESS: Maday is a 84 y.o. female with past medical history of hypertension, hyperlipidemia, anxiety, depression and normocytic anemia, who presented with worsening confusion for the past several days per family, patient was recently admitted from 04/21-04/30 after she fell resultign in a left intertrochanteric hip fracture with extension into the subtrochanteric, and interTAN nailing was completed on 04/21/[address] Meng. That admission was complicated by ICU admission for hypotension requirign Levophed gtt and the development of Afib but was not placed on DOAC due to bleeding risk. She was discharged to [facility], was having some difficulties with increase right sided weakness which was making PT and OT harder, family states that she has been more confused over the past couple of days and today fell while trying to get up from the toilet with a nurse. She is confused in the room, did not know year she was born, and family states that she has decreased appetite and not drinking much water. Prior to her fall she was alert and orientated with no signs of dementia. She appears to be seeing thing in the room while there, denies any pain at this time. No headache, difficulties seeing or hearing changes. Told family that she was dizzy for the past few days. No chest pain, shortness of breath, denies any abdomen pain, dysuria or frequency. Family is unsure of when her Dilantin dose was increased - it appears that she was discharged on 200 mg PO BID and may have accidentally been placed on 400 mg PO BID at the facility. In the ED, she has increased hand swelling on the left wrist but denies any pain or discomfort. Sutures from her surgery on 04/[address] and removed in the ED. Labs in the ED showing Na 132, Gluc 209, Alkalin phos 211, albumin 3.2, and TB 1.3, Troponin negative, with LA 1.6, and No leukocytosis, macrocytosis of 106. PT 10.9, INR 1, APTT 30 CT head wo 05/10 - Small vessel ischemic disease, No acute proces CXR 05/10 - NO acute process Left hand XRAY 05/10 - no signs of swelling or fracture CT cervical spine, right hip pending. Will admit for medical mangemtn Past Medical History: Medical History[1] Past Surgical History: Surgical History[2] Social History: Social History Socioeconomic History Marital status: Spouse name: Not on file Number of children: Not on file Years of education: Not on file Highest education level: Not on file Occupational History Not on file Tobacco Use Smoking status: Every Day Types: Cigarettes Smokeless tobacco: Never Vaping Use Vaping status: Never Used Substance and Sexual Activity Alcohol use: No Drug use: Not on file Sexual activity: Not on file Other Topics Concern Not on file Social History Narrative Not on file Social Drivers of Health Financial Resource Strain: Not on file Food Insecurity: Not on file Transportation Needs: No Transportation Needs (04/21/2025) PRAPARE - Transportation Lack of Transportation (Medical): No Lack of Transportation (Non-Medical): No Physical Activity: Not on file Stress: Not on file Social Connections: Not on file Intimate Partner Violence: Not At Risk (04/21/2025) Humiliation, Afraid, Rape, and Kick questionnaire Fear of Current or Ex-Partner: No Emotionally Abused: No Physically Abused: No Sexually Abused: No Housing Stability: Low Risk (04/21/2025) Housing Stability Vital Sign Unable to Pay for Housing in the Last Year: No Number of Times Moved in the Last Year: 1 Homeless in the Last Year: No Family History: Family History[3] Medications Prior to Admission: Current Medications[4] Medications Reconciliation: Medication were reviewed and verified as accurate with patient. and Medications were reviewed in chart and verified as accurate by review of records with family and/or extended care facility Allergies: Allergies[5] REVIEW OF SYSTEMS: 10 point ROS obtained, as per HPI, otherwise NEG Vitals: BP 115/85 Pulse 67 Temp 36.7 C (98.1 F) (Oral) Resp 20 SpO2 99% BMI Classification: Normal Weight (BMI 18.5-24.9) Pulse Ox: SpO2 Av % Min: 98 % Max: 100 % Supplemental O2: PHYSICAL EXAM: Physical Exam Vitals and nursing note reviewed. Constitutional: Appearance: She is obese. Comments: Appears to be seeing and looking at things in the room, HENT: Head: Normocephalic. Mouth/Throat: Mouth: Mucous membranes are dry. Eyes: Conjunctiva/sclera: Conjunctivae normal. Comments: Unable to perform EOM PERRL Cardiovascular: Rate and Rhythm: Normal rate and regular rhythm. Heart sounds: No murmur heard. Pulmonary: Effort: No respiratory distress. Breath sounds: No wheezing or rales. Abdominal: General: There is no distension. Tenderness: There is no abdominal tenderness. There is no guarding. Musculoskeletal: General: Tenderness and signs of injury present. Comments: Left wrist swelling Left hip swollen with no bruising and inability to lift of bed without assistance, Yeni removed from three hip surgical site lesions. Skin: Findings: Bruising present. Neurological: Mental Status: She is alert. She is disoriented. Motor: Weakness (left lower extremity) present. Coordination: Coordination abnormal (finger to nose was close - went from flat nad to her lip but consistently went back and forth). Comments: Right sided weakness NIHSS 1a Level of consciousness: 0=alert; keenly responsive 1b. LOC questions: 1=Performs one task correctly 1c. LOC commands: 0=Performs both tasks correctly 2. Best Gaze: 0=normal 3. Visual: 1=Partial hemianopia 4. Facial Palsy: 1=Minor paralysis (flattened nasolabial fold, asymmetric on smiling) 5a. Motor left arm: 0=No drift, limb holds 90 (or 45) degrees for full 10 seconds 5b. Motor right arm: 0=No drift, limb holds 90 (or 45) degrees for full 10 seconds 6a. motor left le=No effort against gravity, limb falls 6b Motor right le=Drift, limb holds 90 (or 45) degrees but drifts down before full 10 seconds: does not hit bed 7. Limb Ataxia: 0=Absent 8. Sensory: 0=Normal; no sensory loss 9. Best Language: 1=Mild to moderate aphasia; some obvious loss of fluency or facility of comprehension without significant limitation on ideas expressed or form of expression. 10. Dysarthria: 1=Mild to moderate, patient slurs at least some words and at worst, can be understood with some difficulty 11. Extinction and Inattention: 0=No abnormality 12. Distal motor function: 0=Normal Total: 8 DATA: CBC: Recent Labs 05/10/25 1428 WBC 7.6 RBC 3.36* HGB 11.7 HCT 35.5 MCV 105.7* RDW 17.9* PLT 215 BMP: Recent Labs 05/10/25 1428 NA 132* K 4.3 CL 98 CO2 24 BUN 12 CREATININE 0.61 GLUCOSE 209* CALCIUM 9.5 ANIONGAP 10 LIVER PROFILE: Recent Labs 05/10/25 1428 AST 33 ALT 11 BILITOT 1.3* ALKPHOS 211* PROT 6.4 PT/INR: Recent Labs 05/10/25 1428 PROTIME 10.9 INR 1.0 CARDIAC ENZYMES: No results for input(s): TROPONINI in the last 72 hours. Procalcitonin: No results found for: PROCAL Urine Culture: No results found for this or any previous visit. COVID-19 PCR: No results for input(s): COVID19 in the last 72 hours. I reviewed: [x] laboratory results [x] radiographic results At the time of today's encounter. Pt was advised of the results. Data: (CAT1) Reviewed 3 or more notes from different specialty or health system (each=1). (CAT1) Reviewed 3 or more labs/studies ordered by another provider not previously counted (each=1, panels count as 1). (CAT1) Reviewed 3 or more labs/studies previously ordered by me not previously counted (each=1, panels count as 1). (LOW: 2x CAT1 or independent historian MOD: 3x CAT1 or 1x CAT3 EXTENSIVE: 3x CAT1 and 1x CAT3) Assessment Discussed management with the ED provider and agree with hospitalization. Acute, acute on chronic, unstable/uncontrolled chronic problems/diagnoses: Altered mental status secondary to stroke vs Dilantin Admit to tele Stroke order set, NIHSS - complicated by recent hip fracture - which is making score higher In and out, daily weights, lovenox Given recent work up will defer MRI until neurology see - given higher dose of dilantin Daily labs Follow up dilantin level Seizure history Dilantin 200 mg PO BID Was on 400 mg PO BID _at the facility, called and asked, Recent left hip fracture PT and OT [place] removed in ED Delirium - no hx of dementia Monitor melatonin nightly HOLD tenezepam at this time. But there is a withdrawal risk, will need to restart, Geriatrics consultation reviewed Hyponatremia Appears dry, mIVF and reassess in monitoring . Macrocytosis Atrial fibrillation Has a 30 day event monitor, not in Afib at this time, and not on any OAC Plan As a result of the above findings & factors, the following mgmt was pursued: - 05/10- Admit to tele, Stroke order set, neurology consultation, follow up dilantin level, delirium precautions - Encourage PO intake, time up in chair, family visits, supervised ambulation, and sleep hygiene, PT and OT to work with patient - no weight bearing restriction to the hands, encourage PO intake once cleared by speech - am labs, replace lytes prn - PT/OT/CM/SW - delirium precautions: increase activity and limit nighttime disturbances - DVT prophylaxis: enoxaparin and encourage ambulation Complexity: Chronic illness with severe exacerbation, progression, or side effect of tx (HIGH). Risk: Admission to hospital-level care was considered or occurred (HIGH). Advance Directive: No Order Anticipated Discharge - Date - 05/13 - Location - SNF - Pending the following - clinical work up and analysis of AMS Total time spent (which include face to face and non face to face encounters) : 86 minutes. Toxic drug monitoring/narrow therapeutic index drug monitoring : # Drug name : dilantin # Route administered : oral # Method of monitoring : monitor therapeutic level Extended Emergency Contact Information Primary Emergency Contact: Ed Villela Mobile Relation: Grandchild Pharmacy Affairs Assistant needed? No Secondary Emergency Contact: Jono Fragoso Mobile Relation: Son [employer] Maday Alfaro : 1940 Primary Care Physician: CHRISTIAN HARRISON NP The patient and/or family/surrogate voluntarily agreed to participate in ACP services. Patient s cognitive capacity: confused Code Status: [X] [FULL CODE - Continue all advanced life support: CPR,intubation,invasive procedures] [_] [DNR-CCA - DO NOT do CPR, intubation] [_] [DNR-ORNAMENTAL METALWORK DESIGNER - Comfort care only] [_] DNR form [was/was not] signed Summary of discussion: The patient health care POA/ surrogate is the following: Ed Villela . [Condition that instigated the ACP on this DOS, relevant PMH, functional status, goals of care, and whom this was discussed with including names and relationship to the patient, and any relevant advance care documentation discussion] I answered all the patient/family questions that I could within the range and scope of the current medical situation. We discussed the medical conditions, risks, benefits, outcomes, and goals of care at this time for the patient's medical issues at hand in the face of the patient's chronic issues and current presentation. Total time spent: 3 minutes were spent discussing the patient's resuscitation status, advance care planning, and end of life care, with patient and/or family/surrogate. Nemo Bunn MD Division of Hospitalist Medicine [employer] [place] [facility] [employer] [1] Past Medical History: Diagnosis Date Hypertension Seizures (HCC) [2] Past Surgical History: Procedure Laterality Date EYE SURGERY HYSTERECTOMY [3] Family History Problem Relation Name Age of Onset Stroke Mother Heart disease Father Heart attack Father Coronary artery disease Father [4] Current Facility-Administered Medications: sodium chloride 0.9 % infusion, 50 mL/hr, IntraVENous, Continuous, Raheel Painter MD, Last Rate: 50 mL/hr at 05/10/25 1624, 50 mL/hr at 05/10/25 1624 Current Outpatient Medications: acetaminophen (Tylenol) 500 MG tablet, Take 2 tablets (1,000 mg) by mouth every 6 hours as needed for mild pain (1-3)., Disp: 30 tablet, Rfl: 0 alendronate (Fosamax) 70 MG tablet, Take 1 tablet by mouth every 7 days., Disp: , Rfl: aspirin 81 MG chewable tablet, Chew 1 tablet 2 times daily., Disp: , Rfl: ergocalciferol (Vitamin D2) 1.25 MG (87799 UT) capsule, Take 1 capsule (1.25 mg) by mouth 1 (one) time per week., Disp: , Rfl: melatonin 5 MG tablet, Take 1 tablet (5 mg) by mouth Nightly., Disp: , Rfl: oxyCODONE (Roxicodone) 5 MG immediate release tablet, Take 1 tablet (5 mg) by mouth every 6 hours as needed for severe pain (7-10)., Disp: 12 tablet, Rfl: 0 sertraline (Zoloft) 100 MG tablet, , Disp: , Rfl: temazepam (Restoril) 15 MG capsule, Take 15 mg by mouth every 24 hours as needed., Disp: , Rfl: phenytoin ER (Dilantin) 100 MG capsule, Take 200 mg by mouth in the morning and 200 mg before bedtime., Disp: , Rfl: [5] Allergies Allergen Reactions Bee Venom Anaphylaxis Lidocaine Shortness of breath Penicillins Nausea Only Sulfa Antibiotics Nausea Only Varenicline Nausea And Vomiting Penicillin G Rash Simvastatin Rash [facility] 05-10-2025 Note [facility] 05-10-2025 History and physical note Attending History and Physical Admit Date: 05/10/2025 PCP: CHRISTIAN HARRISON NP CHIEF COMPLAINT: Altered mental status Reason for Admission: [facility] work up - out of window History Obtained From: patient, son, SNF records and Chart review HISTORY OF PRESENT ILLNESS: Maday is a 84 y.o. female with past medical history of hypertension, hyperlipidemia, anxiety, depression and normocytic anemia, who presented with worsening confusion for the past several days per family, patient was recently admitted from 04/21-04/30 after she fell resultign in a left intertrochanteric hip fracture with extension into the subtrochanteric, and interTAN nailing was completed on 04/21/[address] Meng. That admission was complicated by ICU admission for hypotension requirign Levophed gtt and the development of Afib but was not placed on DOAC due to bleeding risk. She was discharged to [facility], was having some difficulties with increase right sided weakness which was making PT and OT harder, family states that she has been more confused over the past couple of days and today fell while trying to get up from the toilet with a nurse. She is confused in the room, did not know year she was born, and family states that she has decreased appetite and not drinking much water. Prior to her fall she was alert and orientated with no signs of dementia. She appears to be seeing thing in the room while there, denies any pain at this time. No headache, difficulties seeing or hearing changes. Told family that she was dizzy for the past few days. No chest pain, shortness of breath, denies any abdomen pain, dysuria or frequency. Family is unsure of when her Dilantin dose was increased - it appears that she was discharged on 200 mg PO BID and may have accidentally been placed on 400 mg PO BID at the facility. In the ED, she has increased hand swelling on the left wrist but denies any pain or discomfort. Sutures from her surgery on 04/[address] and removed in the ED. Labs in the ED showing Na 132, Gluc 209, Alkalin phos 211, albumin 3.2, and TB 1.3, Troponin negative, with LA 1.6, and No leukocytosis, macrocytosis of 106. PT 10.9, INR 1, APTT 30 CT head wo 05/10 - Small vessel ischemic disease, No acute proces CXR 05/10 - NO acute process Left hand XRAY 05/10 - no signs of swelling or fracture CT cervical spine, right hip pending. Will admit for medical mangemtn Past Medical History: Medical History[1] Past Surgical History: Surgical History[2] Social History: Social History Socioeconomic History Marital status: Spouse name: Not on file Number of children: Not on file Years of education: Not on file Highest education level: Not on file Occupational History Not on file Tobacco Use Smoking status: Every Day Types: Cigarettes Smokeless tobacco: Never Vaping Use Vaping status: Never Used Substance and Sexual Activity Alcohol use: No Drug use: Not on file Sexual activity: Not on file Other Topics Concern Not on file Social History Narrative Not on file Social Drivers of Health Financial Resource Strain: Not on file Food Insecurity: Not on file Transportation Needs: No Transportation Needs (04/21/2025) PRAPARE - Transportation Lack of Transportation (Medical): No Lack of Transportation (Non-Medical): No Physical Activity: Not on file Stress: Not on file Social Connections: Not on file Intimate Partner Violence: Not At Risk (04/21/2025) Humiliation, Afraid, Rape, and Kick questionnaire Fear of Current or Ex-Partner: No Emotionally Abused: No Physically Abused: No Sexually Abused: No Housing Stability: Low Risk (04/21/2025) Housing Stability Vital Sign Unable to Pay for Housing in the Last Year: No Number of Times Moved in the Last Year: 1 Homeless in the Last Year: No Family History: Family History[3] Medications Prior to Admission: Current Medications[4] Medications Reconciliation: Medication were reviewed and verified as accurate with patient. and Medications were reviewed in chart and verified as accurate by review of records with family and/or extended care facility Allergies: Allergies[5] REVIEW OF SYSTEMS: 10 point ROS obtained, as per HPI, otherwise NEG Vitals: BP 115/85 Pulse 67 Temp 36.7 C (98.1 F) (Oral) Resp 20 SpO2 99% BMI Classification: Normal Weight (BMI 18.5-24.9) Pulse Ox: SpO2 Av % Min: 98 % Max: 100 % Supplemental O2: PHYSICAL EXAM: Physical Exam Vitals and nursing note reviewed. Constitutional: Appearance: She is obese. Comments: Appears to be seeing and looking at things in the room, HENT: Head: Normocephalic. Mouth/Throat: Mouth: Mucous membranes are dry. Eyes: Conjunctiva/sclera: Conjunctivae normal. Comments: Unable to perform EOM PERRL Cardiovascular: Rate and Rhythm: Normal rate and regular rhythm. Heart sounds: No murmur heard. Pulmonary: Effort: No respiratory distress. Breath sounds: No wheezing or rales. Abdominal: General: There is no distension. Tenderness: There is no abdominal tenderness. There is no guarding. Musculoskeletal: General: Tenderness and signs of injury present. Comments: Left wrist swelling Left hip swollen with no bruising and inability to lift of bed without assistance, [place] removed from three hip surgical site lesions. Skin: Findings: Bruising present. Neurological: Mental Status: She is alert. She is disoriented. Motor: Weakness (left lower extremity) present. Coordination: Coordination abnormal (finger to nose was close - went from flat nad to her lip but consistently went back and forth). Comments: Right sided weakness NIHSS 1a Level of consciousness: 0=alert; keenly responsive 1b. LOC questions: 1=Performs one task correctly 1c. LOC commands: 0=Performs both tasks correctly 2. Best Gaze: 0=normal 3. Visual: 1=Partial hemianopia 4. Facial Palsy: 1=Minor paralysis (flattened nasolabial fold, asymmetric on smiling) 5a. Motor left arm: 0=No drift, limb holds 90 (or 45) degrees for full 10 seconds 5b. Motor right arm: 0=No drift, limb holds 90 (or 45) degrees for full 10 seconds 6a. motor left le=No effort against gravity, limb falls 6b Motor right le=Drift, limb holds 90 (or 45) degrees but drifts down before full 10 seconds: does not hit bed 7. Limb Ataxia: 0=Absent 8. Sensory: 0=Normal; no sensory loss 9. Best Language: 1=Mild to moderate aphasia; some obvious loss of fluency or facility of comprehension without significant limitation on ideas expressed or form of expression. 10. Dysarthria: 1=Mild to moderate, patient slurs at least some words and at worst, can be understood with some difficulty 11. Extinction and Inattention: 0=No abnormality 12. Distal motor function: 0=Normal Total: 8 DATA: CBC: Recent Labs 05/10/25 1428 WBC 7.6 RBC 3.36* HGB 11.7 HCT 35.5 MCV 105.7* RDW 17.9* PLT 215 BMP: Recent Labs 05/10/25 1428 NA 132* K 4.3 CL 98 CO2 24 BUN 12 CREATININE 0.61 GLUCOSE 209* CALCIUM 9.5 ANIONGAP 10 LIVER PROFILE: Recent Labs 05/10/25 1428 AST 33 ALT 11 BILITOT 1.3* ALKPHOS 211* PROT 6.4 PT/INR: Recent Labs 05/10/25 1428 PROTIME 10.9 INR 1.0 CARDIAC ENZYMES: No results for input(s): TROPONINI in the last 72 hours. Procalcitonin: No results found for: PROCAL Urine Culture: No results found for this or any previous visit. COVID-19 PCR: No results for input(s): COVID19 in the last 72 hours. I reviewed: [x] laboratory results [x] radiographic results At the time of today's encounter. Pt was advised of the results. Data: (CAT1) Reviewed 3 or more notes from different specialty or health system (each=1). (CAT1) Reviewed 3 or more labs/studies ordered by another provider not previously counted (each=1, panels count as 1). (CAT1) Reviewed 3 or more labs/studies previously ordered by me not previously counted (each=1, panels count as 1). (LOW: 2x CAT1 or independent historian MOD: 3x CAT1 or 1x CAT3 EXTENSIVE: 3x CAT1 and 1x CAT3) Assessment Discussed management with the ED provider and agree with hospitalization. Acute, acute on chronic, unstable/uncontrolled chronic problems/diagnoses: Altered mental status secondary to stroke vs Dilantin Admit to tele Stroke order set, NIHSS - complicated by recent hip fracture - which is making score higher In and out, daily weights, lovenox Given recent work up will defer MRI until neurology see - given higher dose of dilantin Daily labs Follow up dilantin level Seizure history Dilantin 200 mg PO BID Was on 400 mg PO BID _at the facility, called and asked, Recent left hip fracture PT and OT Yeni removed in ED Delirium - no hx of dementia Monitor melatonin nightly HOLD tenezepam at this time. But there is a withdrawal risk, will need to restart, Geriatrics consultation reviewed Hyponatremia Appears dry, mIVF and reassess in monitoring . Macrocytosis Atrial fibrillation Has a 30 day event monitor, not in Afib at this time, and not on any OAC Plan As a result of the above findings & factors, the following mgmt was pursued: - 05/10- Admit to tele, Stroke order set, neurology consultation, follow up dilantin level, delirium precautions - Encourage PO intake, time up in chair, family visits, supervised ambulation, and sleep hygiene, PT and OT to work with patient - no weight bearing restriction to the hands, encourage PO intake once cleared by speech - am labs, replace lytes prn - PT/OT/CM/SW - delirium precautions: increase activity and limit nighttime disturbances - DVT prophylaxis: enoxaparin and encourage ambulation Complexity: Chronic illness with severe exacerbation, progression, or side effect of tx (HIGH). Risk: Admission to hospital-level care was considered or occurred (HIGH). Advance Directive: No Order Anticipated Discharge - Date - 05/13 - Location - SNF - Pending the following - clinical work up and analysis of AMS Total time spent (which include face to face and non face to face encounters) : 86 minutes. Toxic drug monitoring/narrow therapeutic index drug monitoring : # Drug name : dilantin # Route administered : oral # Method of monitoring : monitor therapeutic level Extended Emergency Contact Information Primary Emergency Contact: Ed Villela Mobile Relation: Grandchild Pharmacy Affairs Assistant needed? No Secondary Emergency Contact: Jono Fragoso Mobile Relation: Son [employer] Maday Alfaro : 1940 Primary Care Physician: CHRISTIAN HARRISON NP The patient and/or family/surrogate voluntarily agreed to participate in ACP services. Patient s cognitive capacity: confused Code Status: [X] [FULL CODE - Continue all advanced life support: CPR,intubation,invasive procedures] [_] [DNR-CCA - DO NOT do CPR, intubation] [_] [DNR-ORNAMENTAL METALWORK DESIGNER - Comfort care only] [_] DNR form [was/was not] signed Summary of discussion: The patient health care POA/ surrogate is the following: Ed Villela . [Condition that instigated the ACP on this DOS, relevant PMH, functional status, goals of care, and whom this was discussed with including names and relationship to the patient, and any relevant advance care documentation discussion] I answered all the patient/family questions that I could within the range and scope of the current medical situation. We discussed the medical conditions, risks, benefits, outcomes, and goals of care at this time for the patient's medical issues at hand in the face of the patient's chronic issues and current presentation. Total time spent: 3 minutes were spent discussing the patient's resuscitation status, advance care planning, and end of life care, with patient and/or family/surrogate. Nemo Bunn MD Division of Hospitalist Medicine [facility] [1] Past Medical History: Diagnosis Date Hypertension Seizures (HCC) [2] Past Surgical History: Procedure Laterality Date EYE SURGERY HYSTERECTOMY [3] Family History Problem Relation Name Age of Onset Stroke Mother Heart disease Father Heart attack Father Coronary artery disease Father [4] Current Facility-Administered Medications: sodium chloride 0.9 % infusion, 50 mL/hr, IntraVENous, Continuous, Raheel Painter MD, Last Rate: 50 mL/hr at 05/10/25 1624, 50 mL/hr at 05/10/25 162 Current Outpatient Medications: acetaminophen (Tylenol) 500 MG tablet, Take 2 tablets (1,000 mg) by mouth every 6 hours as needed for mild pain (1-3)., Disp: 30 tablet, Rfl: 0 alendronate (Fosamax) 70 MG tablet, Take 1 tablet by mouth every 7 days., Disp: , Rfl: aspirin 81 MG chewable tablet, Chew 1 tablet 2 times daily., Disp: , Rfl: ergocalciferol (Vitamin D2) 1.25 MG (85483 UT) capsule, Take 1 capsule (1.25 mg) by mouth 1 (one) time per week., Disp: , Rfl: melatonin 5 MG tablet, Take 1 tablet (5 mg) by mouth Nightly., Disp: , Rfl: oxyCODONE (Roxicodone) 5 MG immediate release tablet, Take 1 tablet (5 mg) by mouth every 6 hours as needed for severe pain (7-10)., Disp: 12 tablet, Rfl: 0 sertraline (Zoloft) 100 MG tablet, , Disp: , Rfl: temazepam (Restoril) 15 MG capsule, Take 15 mg by mouth every 24 hours as needed., Disp: , Rfl: phenytoin ER (Dilantin) 100 MG capsule, Take 200 mg by mouth in the morning and 200 mg before bedtime., Disp: , Rfl: [5] Allergies Allergen Reactions Bee Venom Anaphylaxis Lidocaine Shortness of breath Penicillins Nausea Only Sulfa Antibiotics Nausea Only Varenicline Nausea And Vomiting Penicillin G Rash Simvastatin Rash documented in this encounter [facility] 05-10-2025 Emergency department Note Last known well per family a couple days ago. [facility] 05-10-[address] Castaneda at bedside. [facility] 05-10-[address] Painter at bedside. [facility] 05-10-2025 Emergency department Note Introduced myself as pt liaison and explained role and provided support to family , pt arrived via EMS. [facility] 05-10-2025 Emergency department Triage note Pt here to the ER via EMS after a fall today with altered mental status. Per EMS pt's baseline is A+O X3. Fall was unwitnessed. Pt does have hx of sz. Per EMS, nurse and SNF was on her first day and did not know pt. Unknown when pt's last sz was. Pt is A+O x2 at this time. Pt states she could not stand up and fell, hitting her head. Pt states she passed out. [facility] 05-10-2025 Physician Emergency department Note Emergency Department Encounter [facility] PCU 2E Patient: Maday Alfaro : 1940 Date of Evaluation: 05/10/2025 ED Supervising Physician: Blayne Castaneda, I personally evaluated Maday Alfaro and made/approved the management plan and take responsibility for the patient management. This will serve as my Supervisory note and shared attestation. I did perform a substantive portion of the visit including all aspects of the Medical Decision Making. I wore appropriate PPE for the entirety of this encounter. In brief, Maday Alfaro is a 84 y.o. that presents to the emergency department with complaints of altered mental status. Patient arrives from nursing facility after being there from a recent hospitalization for hip fracture and recent functional decline. She arrives with right-sided facial droop, dysarthria, and weakness. She has no specific complaints. Focused exam: Elderly female who appears ill. Handling her own secretions without stridor or tachypnea. No increased work of breathing. 2+ bilateral radial pulses with warm distal extremities. Abdomen soft nontender. Patient is disoriented but following commands. There is a partial gaze palsy, right-sided facial droop, slight right sided upper extremity drift with right-sided dysmetria and bilateral lower extremity drift that hits bed. Brief ED course/MDM: 84-year-old female arrives with last known well of greater than 24 hours and right sided deficits concerning for missed stroke. Patient arrives from SNF after previously breaking her hip and having consistent functional decline over the last several weeks to month. History is provided with help of her son who arrived at the bedside. Meets no criteria for intervention given the length since her last known well. Stroke B order set placed and evaluated for other causes such as UTI. Admitted to telemetry. CRITICAL CARE TIME Total Critical Care time was 17 minutes, excluding separately reportable procedures. There was a high probability of clinically significant/life threatening deterioration in the patient's condition which required my urgent intervention and CODE STATUS discussion with the patient's son. All diagnostic, treatment, and disposition decisions were made by myself in conjunction with the PARTH. For all further details of the patient's emergency department visit, please see their documentation. (Comment: Please note this report has been produced using speech recognition software and may contain errors related to that system including errors in grammar, punctuation, and spelling, as well as words and phrases that may be inappropriate. If there are any questions or concerns please feel free to contact the dictating provider for clarification.) Blayne Castaneda DO [employer] Blayne Castaneda DO 05/11/25 1597 [facility] 05-10-2025 Physician Emergency department Note Emergency Department Encounter Location: [facility] ED Patient: Maday Alfaro : 1940 Date of evaluation: 05/10/2025 ED Provider: Jose Guzmán DO Chief Complaint Patient presents with Fall Altered Mental Status Time received sign-out: 4:30 PM Maday Alfaro was checked out to me by Dr. Painter. Please see his/her initial documentation for details of the patient's initial ED presentation, physical exam and completed studies. In brief, Maday Alfaro is a 84 y.o. adult that presented to the emergency department for the evaluation of an unwitnessed fall at [facility]. Son reports confusion for the past few days. Neurodeficits, outside window for intervention. Disposition pending: CT imaging. Final ED Course and MDM: Maday Alfaro is a 84 y.o. whose care was signed out to me by the outgoing provider. In brief, patient presented for an unwitnessed fall, concerns for stroke >24 hours onset. Imaging reveals no evidence of ICH or vertebral fractures. There is an age-indeterminate superior endplate compression fracture T2, osteopenia, small left pleural effusion, descending intrathoracic aortic aneurysm measuring 5.6cm (CT f/u 3-6 months). 1.5cm nodule L lung apex (f/u [address]). [address] Bunn will accept the patient to her service for further care. Medications sodium chloride 0.9 % infusion (50 mL/hr IntraVENous New Bag 05/10/25 1624) sodium chloride 0.9 % bolus 250 mL (250 mL IntraVENous New Bag 05/10/25 1432) I have reviewed and interpreted all of the currently available lab results and diagnostics from this visit: Results for orders placed or performed during the hospital encounter of 05/10/25 POCT glucose meter Collection Time: 05/10/25 2:13 PM Result Value Ref Range Glucose 200 (H) 70 - 100 mg/dL ECG 12 lead if not already done by Squad Collection Time: 05/10/25 2:24 PM Result Value Ref Range Heart Rate 63 bpm QRSD Interval 93 ms QT Interval 407 ms QTC Interval 418 ms P Lott 0 degrees QRS Lott -63 degrees T Wave Lott 59 degrees WA Interval 181 ms CBC auto differential Collection Time: 05/10/25 2:28 PM Result Value Ref Range Auto WBC 7.6 3.6 - 10.7 10*3/uL RBC 3.36 (L) 3.80 - 5.20 10*6/uL Hemoglobin 11.7 11.7 - 16.0 g/dL Hematocrit 35.5 35.0 - 47.0 % MCV 105.7 (H) 77.0 - 99.0 fL MCH 34.8 (H) 26.0 - 34.0 pg MCHC 33.0 30.5 - 36.0 % RDW 17.9 (H) 11.5 - 15.0 % Platelets 215 140 - 440 10*3/uL MPV 9.4 9.0 - 12.7 fL nRBC 0.0 0.0 - 2.0 /100 WBCs Neutrophils Relative 75.5 38.0 - 82.0 % Lymphocytes Relative 9.8 (L) 15.0 - 45.0 % Monocytes Relative 13.0 5.0 - 13.0 % Eosinophils Relative 0.9 0.0 - 6.0 % Basophils Relative 0.3 0.0 - 2.0 % Immature Grans % 0.5 0.0 - 2.0 % Neutrophils Absolute 5.7 1.8 - 7.5 10*3/uL Lymphocytes Absolute 0.7 (L) 1.0 - 4.3 10*3/uL Monocytes Absolute 1.0 (H) 0.0 - 0.9 10*3/uL Eosinophils Absolute 0.1 0.0 - 0.5 10*3/uL Basophils Absolute 0.0 0.0 - 0.2 10*3/uL Immature Grans Absolute 0.0 <0.1 10*3/uL Serial Troponin, High Sensitivity Collection Time: 05/10/25 2:28 PM Result Value Ref Range Troponin HS Serial Baseline <3 <=14 ng/L PROTIME/INR & PTT Collection Time: 05/10/25 2:28 PM Result Value Ref Range PROTHROMBIN TIME 10.9 9.0 - 12.0 s INR 1.0 0.9 - 1.1 APTT 29.8 20.0 - 30.5 s Lactic acid with reflex Collection Time: 05/10/25 2:28 PM Result Value Ref Range LACTIC ACID 1.6 0.5 - 2.2 mmol/L Comprehensive metabolic panel Collection Time: 05/10/25 2:28 PM Result Value Ref Range SODIUM 132 (L) 136 - 145 mmol/L POTASSIUM 4.3 3.5 - 5.1 mmol/L CHLORIDE 98 98 - 107 mmol/L CARBON DIOXIDE 24 23 - 31 mmol/L ANION GAP 10 3 - 13 mmol/L UREA NITROGEN 12 9 - 23 mg/dL CREATININE 0.61 0.57 - 1.11 mg/dL GLUCOSE 209 (H) 82 - 115 mg/dL CALCIUM 9.5 8.8 - 10.0 mg/dL AST (SGOT) 33 <34 U/L ALT 11 <30 U/L ALKALINE PHOSPHATASE 211 (H) 40 - 150 U/L ALBUMIN 3.2 (L) 3.4 - 4.8 g/dL BILIRUBIN, TOTAL 1.3 (H) <1.2 mg/dL TOTAL PROTEIN 6.4 6.4 - 8.3 g/dL eGFR 88.8 >60.0 mL/min/1.73m*2 CT head wo IV contrast Final Result 1. Atrophy and evidence of small-vessel ischemic disease. This is not unusual for patient age. 2. No CT evidence of an acute intracranial process. Report Dictated on Electronically Signed By: Yasmani Churchill MD Electronically Signed Date/Time: 05/10/2025 3:16 PM EDT XR chest 1 view Final Result 1. No focal infiltrates. Report Dictated on Electronically Signed By: Yasmani Churchill MD Electronically Signed Date/Time: 05/10/2025 3:16 PM EDT XR hand 3+ views left Final Result No evidence for acute fracture or dislocation. Degenerative changes of the hand and wrist Report Dictated on Electronically Signed By: Osmar Blake MD Electronically Signed Date/Time: 05/10/2025 2:[address] thoracic spine wo IV contrast (Results Pending) CT lumbar spine wo IV contrast (Results Pending) CT cervical spine wo IV contrast (Results Pending) Final Impression 1. Stroke-like symptoms 2. Altered mental status, unspecified altered mental status type 3. Declining functional status DISPOSITION Admit 05/10/2025 03:07:35 PM (Please note that portions of this note may have been completed with a voice recognition program. Efforts were made to edit the dictations but occasionally words are mis-transcribed.) DO Jose Mccall DO Resident [id number]/11/[id number] Cosigned by Blayne Castaneda DO at 05/11/2025 4:54 PM EDT [id number] Phone: 05-10-2025 Physician Emergency department Note EMERGENCY DEPARTMENT ENCOUNTER Pt Name: Maday Alfaro Birthdate 1940 Date of evaluation: 05/10/2025 ED Provider: Raheel Painter MD CHIEF COMPLAINT Chief Complaint Patient presents with Fall Altered Mental Status HISTORY OF PRESENT ILLNESS (Location/Symptom, Timing/Onset, Context/Setting, Quality, Duration, Modifying Factors, Severity) Note limiting factors. I wore appropriate PPE for the entirety of this encounter. HPI Maday Alfaro is a 84 y.o. adult who presents to the emergency department from a [facility] facility after a fall this morning and was found to be altered, oriented x 1-2 when normally she is oriented to 4. She has been confused over the last few days per her son. She is a full code as far as he knows. She was admitted to the SNF earlier this month after hip ORIR 04/21/2025. She is not anticoagulated. Her CT head, chest x-ray, EKG, troponin, CBC, lactate, PT/INR were all unremarkable. CMP showed hyponatremia to 132 is improved from prior 129 11 days ago. Nursing Notes were reviewed. Limitations to history: Altered mental status/confusion Outside historians: Family son REVIEW OF SYSTEMS Review of Systems Pertinent positives and negatives as per HPI. PAST MEDICAL HISTORY Medical History[1] SURGICAL HISTORY Surgical History[2] CURRENT MEDICATIONS Previous Medications ACETAMINOPHEN (TYLENOL) 500 MG TABLET Take 2 tablets (1,000 mg) by mouth every 6 hours as needed for mild pain (1-3). ALENDRONATE (FOSAMAX) 70 MG TABLET Take 1 tablet by mouth every 7 days. ASPIRIN 81 MG CHEWABLE TABLET Chew 1 tablet in the morning. ENOXAPARIN (LOVENOX) 30 MG/0.3ML SOLUTION PREFILLED SYRINGE Inject 0.3 mL (30 mg) under the skin every 12 hours. ERGOCALCIFEROL (VITAMIN D2) 1.25 MG (01378 UT) CAPSULE Take 1 capsule (1.25 mg) by mouth 1 (one) time per week. LISINOPRIL 20 MG TABLET Take 20 mg by mouth daily. MELATONIN 5 MG TABLET Take 1 tablet (5 mg) by mouth Nightly. OXYCODONE (ROXICODONE) 5 MG IMMEDIATE RELEASE TABLET Take 1 tablet (5 mg) by mouth every 6 hours as needed for severe pain (7-10). PHENYTOIN ER (DILANTIN) 100 MG CAPSULE Take 200 mg by mouth in the morning and 200 mg before bedtime. SERTRALINE (ZOLOFT) 100 MG TABLET TEMAZEPAM (RESTORIL) 15 MG CAPSULE Take 15 mg by mouth every 24 hours as needed. ALLERGIES Bee venom, Lidocaine, Penicillins, Sulfa antibiotics, Varenicline, Penicillin g, and Simvastatin FAMILY HISTORY Family History[3] SOCIAL HISTORY Social History[4] SCREENINGS Percival Coma Scale Best Eye Response: Spontaneous Best Verbal Response: Confused Best Motor Response: Localizes pain Percival Coma Scale Score: 13 NIH Stroke Scale 1A. Level of Consciousness: Arouses to Minor Stimulation 1B. Ask Month and Age: No Questions Right 1C. Blink Eyes & Squeeze Hands: Performs Both Tasks 2. Best Gaze: Normal 3. Visual: Partial Hemianopia 4. Facial Palsy: Minor Paralysis 5A. Motor - Left Arm: No Drift 5B. Motor - Right Arm: Drift 6A. Motor - Left Leg: No Effort Against [place] 6B. Motor - Right Leg: Drift 7. Limb Ataxia: Present in One Limb 8. Sensory Loss: Normal 9. Best Language: No Aphasia 10. Dysarthria: Kxcw-bv-Wlhwjvam Dysarthria 11. Extinction and Inattention: No Abnormality NIH Stroke Scale: 12 PHYSICAL EXAM ED Triage Vitals [05/10/25 1352] Temp Heart Rate Resp BP 36.7 C (98.1 F) 67 16 107/61 SpO2 Temp Source Heart Rate Source Patient Position 98 % Oral Monitor -- BP Location FiO2 (%) -- -- Physical Exam Constitutional: Appearance: She is well-developed. HENT: Head: Normocephalic and atraumatic. Comments: Nontender to palpation. No raccoon eyes or Main sign Mouth/Throat: Mouth: Mucous membranes are dry. Eyes: Extraocular Movements: Extraocular movements intact. Conjunctiva/sclera: Conjunctivae normal. Pupils: Pupils are equal, round, and reactive to light. Cardiovascular: Rate and Rhythm: Normal rate and regular rhythm. Pulses: Normal pulses. Radial pulses are 2+ on the right side and 2+ on the left side. Heart sounds: Normal heart sounds. Pulmonary: Effort: Pulmonary effort is normal. Breath sounds: Normal breath sounds. Abdominal: General: There is no distension. Palpations: Abdomen is soft. Tenderness: There is no abdominal tenderness. There is no right CVA tenderness, left CVA tenderness or guarding. Musculoskeletal: Cervical back: No rigidity or tenderness. Right lower leg: No edema. Left lower leg: No edema. Comments: Right thumb PIP edematous, warm to the touch, and tender to palpation. + midline thoracic and lumbar tenderness. Skin: General: Skin is warm and dry. Capillary Refill: Capillary refill takes less than 2 seconds. Neurological: Mental Status: She is alert. She is disoriented. Her stroke exam was remarkable for wrong month and age, abnormal [id number]-[id number] testing, left leg with no effort against gravity, right leg with some effort against gravity but hits the bed, bilateral bidirectional nystagmus, right gaze preference, right facial droop, dysphasia. DIAGNOSTIC RESULTS RADIOLOGY Interpretation per the Radiologist below, if available at the time of this note: CT head wo IV contrast Final Result 1. Atrophy and evidence of small-vessel ischemic disease. This is not unusual for patient age. 2. No CT evidence of an acute intracranial process. Report Dictated on Electronically Signed By: Yasmani Churchill MD Electronically Signed Date/Time: 05/10/2025 3:16 PM EDT XR chest 1 view Final Result 1. No focal infiltrates. Report Dictated on Electronically Signed By: Yasmani Churchill MD Electronically Signed Date/Time: 05/10/2025 3:16 PM EDT XR hand 3+ views left Final Result No evidence for acute fracture or dislocation. Degenerative changes of the hand and wrist Report Dictated on Electronically Signed By: Osmar Blake MD Electronically Signed Date/Time: 05/10/2025 2:50 PM EDT ED BEDSIDE ULTRASOUND: Performed by ED Physician - none LABS: Labs Reviewed CBC WITH AUTO DIFFERENTIAL - Abnormal Result Value Auto WBC 7.6 RBC 3.36 (*) Hemoglobin 11.7 Hematocrit 35.5 MCV 105.7 (*) MCH 34.8 (*) MCHC 33.0 RDW 17.9 (*) Platelets 215 MPV 9.4 nRBC 0.0 Neutrophils Relative 75.5 Lymphocytes Relative 9.8 (*) Monocytes Relative 13.0 Eosinophils Relative 0.9 Basophils Relative 0.3 Immature Grans % 0.5 Neutrophils Absolute 5.7 Lymphocytes Absolute 0.7 (*) Monocytes Absolute 1.0 (*) Eosinophils Absolute 0.1 Basophils Absolute 0.0 Immature Grans Absolute 0.0 COMPREHENSIVE METABOLIC PANEL - Abnormal SODIUM 132 (*) POTASSIUM 4.3 CHLORIDE 98 CARBON DIOXIDE 24 ANION GAP 10 UREA NITROGEN 12 CREATININE 0.61 GLUCOSE 209 (*) CALCIUM 9.5 AST (SGOT) 33 ALT 11 ALKALINE PHOSPHATASE 211 (*) ALBUMIN 3.2 (*) BILIRUBIN, TOTAL 1.3 (*) TOTAL PROTEIN 6.4 eGFR 88.8 POCT GLUCOSE METER UNSOLICITED RESULTS - Abnormal Glucose 200 (*) Narrative: Performed by: Fabienne Pickett, [address] [place] [address] CLIA ID: [id number] HIGH SENSITIVITY TROPONIN, SERIAL BASELINE - Normal Troponin HS Serial Baseline <3 PROTIME & APTT - Normal PROTHROMBIN TIME 10.9 INR 1.0 APTT 29.8 LACTIC ACID WITH REFLEX - Normal LACTIC ACID 1.6 COMPREHENSIVE METABOLIC PANEL WITH MG REFLEX Narrative: The following orders were created for panel order Comprehensive Metabolic Panel with Mg Reflex. Procedure Abnormality Status --------- ------ Comprehensive metabolic ...[[id number]] Abnormal Final result Please view results for these tests on the individual orders. COMPLETE URINALYSIS WITH REFLEX TO CULTURE HIGH SENSITIVITY TROPONIN, SERIAL, SECOND TEST POCT GLUCOSE METER All other labs were within normal range or not returned as of this dictation. [facility] EMERGENCY DEPARTMENT COURSE ED Course as of 05/10/25 1655 Sat May 10, 2025 1521 Troponin HS Serial Baseline: <3 [ML] 1521 LACTIC ACID: 1.6 Generalized seizure unlikely [ML] 1612 ECG 12 lead if not already done by Squad My independent interpretation: Normal sinus rhythm, no axis deviation. Normal WA and QT intervals. Normal QRS duration. No ST elevation or depression. [ML] ED Course User Index [ML] Raheel Painter MD Diagnoses as of 05/10/25 1655 Stroke-like symptoms Altered mental status, unspecified altered mental status type Declining functional status MDM elements: The patient presented with chief complaint of confusion, fall. The differential diagnosis associated with this patient's presentation includes CVA, skull fracture, cervical spine fracture, sepsis. Our workup consisted of ordering/reviewing: CT head, chest x-ray, x-ray of the left hand, EKG, CBC, PT/INR and PTT, lactate, troponin, CMP with magnesium reflex, urinalysis with reflex to culture, straight catheterization, [id number] glucose, normal saline bolus and infusion. Diagnostic tests considered but not performed: CT of the neck was not performed because patient has no tenderness, no distracting injuries and was able to note when other sites body were tender. CTA was not performed because patient is outside the window for intervention and it would not climate change analyst in the ED. To aid in management, I performed an independent interpretation of EKG; see my interpretation elsewhere in the chart. I also reviewed external records from SNF. I discussed their care with Admitting team hospitalist. The patient will be Admitted. Patient is in agreement with this plan. Prescription medications considered but not prescribed: TNK (outside the time window) Medications sodium chloride 0.9 % infusion (has no administration in time range) sodium chloride 0.9 % bolus 250 mL (250 mL IntraVENous New Bag 05/10/25 1432) Vitals: Vitals: 05/10/25 1352 05/10/25 1445 BP: 107/61 Pulse: 67 69 Resp: 16 16 Temp: 36.7 C (98.1 F) TempSrc: Oral SpO2: 98% 100% REVAL: CONSULTS: None PROCEDURES: Unless otherwise noted below, none Procedures Patients symptoms are consistent with sepsis, severe sepsis, or septic shock (If yes use .sepsiscoremeasure): No FINAL IMPRESSION 1. Stroke-like symptoms 2. Altered mental status, unspecified altered mental status type 3. Declining functional status DISPOSITION Admit 05/10/2025 03:07:35 PM PATIENT REFERRED TO: No follow-up provider specified. DISCHARGE MEDICATIONS: New Prescriptions No medications on file (Comment: Please note this report has been produced using speech recognition software and may contain errors related to that system including errors in grammar, punctuation, and spelling, as well as words and phrases that may be inappropriate. If there are any questions or concerns please feel free to contact the dictating provider for clarification.) Raheel Painter MD (electronically signed) Emergency Medicine Provider [1] Past Medical History: Diagnosis Date Hypertension Seizures (HCC) [2] Past Surgical History: Procedure Laterality Date EYE SURGERY HYSTERECTOMY [3] Family History Problem Relation Name Age of Onset Stroke Mother Heart disease Father Heart attack Father Coronary artery disease Father [4] Social History Socioeconomic History Marital status: Tobacco Use Smoking status: Every Day Types: Cigarettes Smokeless tobacco: Never Vaping Use Vaping status: Never Used Substance and Sexual Activity Alcohol use: No Social Drivers of Health Transportation Needs: No Transportation Needs (04/21/2025) PRAPARE - Transportation Lack of Transportation (Medical): No Lack of Transportation (Non-Medical): No Intimate Partner Violence: Not At Risk (04/21/2025) Humiliation, Afraid, Rape, and Kick questionnaire Fear of Current or Ex-Partner: No Emotionally Abused: No Physically Abused: No Sexually Abused: No Housing Stability: Low Risk (04/21/2025) Housing Stability Vital Sign Unable to Pay for Housing in the Last Year: No Number of Times Moved in the Last Year: 1 Homeless in the Last Year: No Raheel Painter MD Resident 05/10/25 3103 Cosigned by Blayne Castaneda DO at 05/11/2025 4:55 PM EDT [facility] Work Phone: 05-01-2025 Telephone encounter Note Spoke with patient's nurse and gave her Krupa's recommendations to stop Lovenox [facility] 05-01-2025 Miscellaneous Notes Spoke with patient's nurse and gave her Krupa's recommendations to stop Lovenox Contacted by [facility] regarding patient being on Lovenox. Okay to stop Lovenox. documented in this encounter [facility] 05-01-2025 Telephone encounter Note Contacted by SNF regarding patient being on Lovenox. Okay to stop Lovenox. [facility] Work Phone: 04-30-2025 Note [facility] 04-30-2025 Hospital course Narrative Hospitalist Discharge Summary Maday Alfaro : 1940 Admit date: 04/21/2025 Discharge date: 04/30/2025 Admitting Physician: Miller Lee DO Primary Care Physician: CHRISTIAN HARRISON NP 84-year-old female presented with mechanical fall with left hip pain on April 21. Patient revealed left intra trochanteric hip fracture with subtrochanteric extension. April 21 underwent InterTAN nailing of left intertrochanteric fracture by Dr. Meng. Fortunately patient was hypotensive requiring neoepinephrine and epinephrine. Patient was started on Levophed in PACU and ICU was consulted. Cardiology signed off on April 25. Cardiology ordered 30-day outpatient event monitor. Cardiology was consulted for paroxysmal atrial fibrillation recommended no oral anticoagulation due to anemia and patient is in current sinus rhythm. Patient was started on amiodarone drip and no recommendation to transition to oral by cardiology. April 24 patient was weaned off of vasopressors. Cardiology recommends holding outpatient lisinopril 20 mg daily and reinitiate if needed. Geriatric medicine was consulted for a fall leading to a fracture. Multifactorial risk factors for falling including deconditioning medication effect and seizures. ECHO Left Ventricle: Left ventricle is smaller than normal. Basal septal thickening. Hyperdynamic left ventricular systolic function. EF by 2D Simpsons Biplane is 87%. Normal wall motion.Right Ventricle: Right ventricle size is normal. Normal systolic function.No significant valvular abnormalities. Hypotension resolved Paroxysmal atrial fibrillation cardiology recommending holding anticoagulation given anemia. Follow-up with cardiology outpatient regarding ongoing management and initiating anticoagulation on outpatient basis Shock requiring vasopressors Left intertrochanteric hip fracture with subtrochanteric extension status post InterTAN nailing of left intertrochanteric fracture by Dr. Meng on April 21 Anxiety Hyponatremia Orthostatic hypotension resolved Depression Hypertension Hyperlipidemia Normocytic anemia, April 21 hemoglobin 14.8 April 28 hemoglobin 7.8 Continue aspirin Dilantin sertraline PT OT recommending [facility] facility Hospital Course: See discharge diagnoses list above and medication adjustments below in med rec.The patient is discharged in improved and stable condition. Consults: IP CONSULT TO ORTHOPAEDIC SURGERY IP CONSULT TO WOUND PREVENTION IP CONSULT TO GERIATRICS IP CONSULT TO CARDIOLOGY Discharge Instructions: Diet: Dietary Orders (From admission, onward) Start Ordered 04/24/25 0941 Supplement:HS Snack; Chocolate Ensure Plus High Protein Until discontinued Question Answer Comment Frequency HS Snack Select supplement: Chocolate Ensure Plus High Protein 04/24/25 0940 04/23/25 1045 Supplement:AM Snack, PM Snack, HS Snack; Ensure Max Protein Until discontinued Question Answer Comment Frequency AM Snack Frequency PM Snack Frequency HS Snack Select supplement: Ensure Max Protein 04/23/25 1045 04/22/25 1103 Adult diet Regular Diet effective now Question: Diet type Answer: Regular 04/22/25 1102 Activity: as tolerated Recommended Outpatient Tests: Disposition: Patient discharged in stable condition to snf. Greater than 31 minutes spent discharging the patient and coming up with patient discharge plan. Vitals: BP 110/68 (BP Location: Right arm, Patient Position: Lying) Pulse 72 Temp 36.9 C (98.4 F) (Temporal) Resp 18 Ht 5' 6 (1.676 m) Wt 136 lb (61.7 kg) SpO2 95% BMI 21.95 kg/m Pulse Ox: SpO2 Av.8 % Min: 93 % Max: 97 % Supplemental O2: O2 Flow Rate (L/min): 6 L/min Physical Exam LABS: Recent Labs 04/28/25 0558 04/29/25 0506 NA 130* 129* K 4.0 3.7 CL 102 102 CO2 23 24 BUN 19 13 CREATININE 0.48* 0.47* GLUCOSE 97 103 CALCIUM 8.7* 9.0 Recent Labs 04/28/25 0558 WBC 7.3 RBC 2.35* HGB 7.8* HCT 22.6* MCV 96.2 MCH 33.2 MCHC 34.5 RDW 14.9 PLT 216 MPV 9.7 Discharge Medications: Medication List START taking these medications enoxaparin 30 MG/0.3ML solution prefilled syringe Commonly known as: Lovenox Inject 0.3 mL (30 mg) under the skin every 12 hours. ergocalciferol 1.25 MG (28933 UT) capsule Commonly known as: Vitamin D2 Take 1 capsule (1.25 mg) by mouth 1 (one) time per week. Start taking on: May 04, 2025 melatonin 5 MG tablet Take 1 tablet (5 mg) by mouth Nightly. CONTINUE taking these medications acetaminophen 500 MG tablet Commonly known as: Tylenol Take 2 tablets (1,000 mg) by mouth every 6 hours as needed for mild pain (1-3). aspirin 81 MG chewable tablet oxyCODONE 5 MG immediate release tablet Commonly known as: Roxicodone Take 1 tablet (5 mg) by mouth every 6 hours as needed for severe pain (7-10). phenytoin ER 100 MG capsule Commonly known as: Dilantin sertraline 100 MG tablet Commonly known as: Zoloft temazepam 15 MG capsule Commonly known as: Restoril STOP taking these medications EPINEPHrine 0.3 MG/0.3ML injection syringe Commonly known as: Epipen lisinopril 20 MG tablet Where to Get Your Medications Information about where to get these medications is not yet available Ask your nurse or doctor about these medications enoxaparin 30 MG/0.3ML solution prefilled syringe ergocalciferol 1.25 MG (47140 UT) capsule melatonin 5 MG tablet Recommended Follow-up: Travis Meng MD [address] [place] [address] [address] [facility] [address] Schedule an appointment as soon as possible for a visit in 2 week(s) For post operative follow up Yaneli Cruz, CNA [employer] [address] [place] [address] Krupa Cid, CNA [employer] [address] [facility] [address] Go on 05/13/2025 appointment time 10 AM Complexity of Follow up: [] Moderate Complexity: follow up within 7-14 calendar days (83645) [x] Severe Complexity: follow up within 7 calendar days (85732) Follow up Testing, Pending results or Referrals at Transitional Care Visit: [x] yes [] no Instructions to MA: Please call patient on day after discharge (must document patient contacted within 2 business days of discharge). Follow up questions for MA: 1. Did you get medications filled and taking them as instructed from discharge? 2. Are you following your discharge instructions from your hospital stay? 3. Please confirm patient is scheduled for a follow up appointment within the above time frame. Signed: Chaz Smyth DO Division of Hospitalist Medicine [facility] [place] 04/30/2025, 11:08 AM documented in this encounter [facility] 04-30-2025 Progress note Formatting of t his note is different from the original. Case Management Discharge Summary Note Who you talked to: Name: ed segundo PLAN: Alf Facility Facility: [facility] , Level of Care: skilled, and Transport: confirmed 11 am [facility] 04-30-2025 Miscellaneous Notes Case Management Discharge Summary Note Who you talked to: Name: ed segundo PLAN: Alf Facility Facility: [facility] , Level of Care: skilled, and Transport: confirmed 11 am Patient Choice Patient Name: MADAY ALFARO Date of : 1940 All Providers Sent Referral Name: [facility] Phone: [phone] Address: [address] [place] [address] Name: Leonela Corea - CPAN Member Phone: [phone] Address: [address] [place] [address] [facility] Phone: [phone] Address: [address] [place] [address] Name: [facility] Phone: [phone] Address: [address] [place] [address] Confirmed pickup time of 11:00am on 04/30/25 by transport [employer] Micheal Marshall at phone number [phone]. Location of facility drop off is [facility]. Facility notified via [employer], TCC notified on secure chat. Care Management Progress Note Short Medical why still here: Auth approved. Good until 05/02. Auth number is [id number] Family agree to plan Arrange transport this am for 10 Discharged and ready , adore done 7000 done Planned Discharge Disposition: Alf Facility to [facility] Barriers/Today we still Wait: Attending completion of discharge workflow- discharged Length of Stay (Days): 9 GMLOS: 4.4 Discharge med list transmitted to [facility] via [email or web address] per TCC request. 7000 was entered into Dash for the [facility]. Transport requested in Roundtrip as Will Call for [facility] per TCC request. [facility] tasked to submit for [employer] auth and to do 7000. Transport requested in will call . Referral placed to [facility] via [employer] per TCC request. Updated notes sent to [facility]- [facility]. Family called back [facility] to send clinicals and med rec Will submit auth today if accepted Aodre to be done And 7000 Care Management Progress Note Short Medical why still here: discharged however NO FOC . Family has the list aware of the referrals , therapy notes done- adore signed, need choice and then can submit today for auth - Planned Discharge Disposition: Alf Facility Barriers/Today we still Wait: Facility pre-cert, Patient/caregiver facility choice (family HAS NOT GIVEN FOC , cannot submit auth until have it) Length of Stay (Days): 8 GMLOS: 4.4 Referral placed to the following SNF via [employer] per TCC request[facility] [place] Await review and response regarding ability to accept. TCC notified. Care Management Progress Note Short Medical why still here: ready for discharge , pain controlled Planned Discharge Disposition: Alf Facility referrals sent- list at bedside therapy notes done- wait on response adore and auth - NO FOC Will call ed bruce per request of the patient [phone]. Updated and will give FOC Barriers/Today we still Wait: Attending completion of discharge workflow, Patient/caregiver facility choice, Facility pre-cert Length of Stay (Days): 7 GMLOS: 4.4 Care Management Progress Note Short Medical why still here: Awaiting Placement. Planned Discharge Disposition: [facility] Messaged [facility] liaison regarding DC. Per [facility] liaison p2p is pending and scheduled to be completed on Monday. Requested PT/OT updates Monday/ Monday for facility approval. Barriers/Today we still Wait: P2P is pending and scheduled to be completed on Monday. Length of Stay (Days): 5 GMLOS: 4.4 Care Management Progress Note Short Medical why still here: Admitted for hip fx s/p ORIR 04/21/2025. Remains for electrolyte replacement, therapy evals ongoing. Ortho, geriatrics, and cardiology following/consults. Planned Discharge Disposition: Inpatient Rehab Facility ([facility]) Spoke with patient and daughter Ed [phone] regarding discharge planning. Re-introduced myself and role. Discussed rehab hospital vs SNF. Patient and daughter Ed agreeable to [facility]. CM notified [facility] liaison to start facility precert today. CM tasked weekend team to follow. Transport needed at discharge. Addendum: Peer to peer offered with intent to deny. CM secure messaged SICU resident and hospitalist planning to take over care per transfer note, included P2P info to be scheduled by Monday, 04/28 2pm. P2P phone # [phone], Ref # [id number]. Barriers/Today we still Wait: Administering IV medications, Clinical stability, [facility] [employer] [facility] recommendations (comment), Facility pre-cert, Patient/caregiver facility choice electrolyte replacement, therapy evals ongoing. Ortho, geriatrics, and cardiology following/consults. Length of Stay (Days): 4 GMLOS: 4.4 Case management will continue to follow for discharge planning. Care Management Progress Note Short Medical why still here: Admitted for hip fx s/p ORIR 04/21/2025. Remains for pressort gtt - on/off, amio gtt, therapy evals ongoing. Ortho, Geriatrics, and cardiology following/consults. Planned Discharge Disposition: Inpatient Rehab Facility ([facility] vs SNF in [place]) FOC remains pending with patient. Now on Amio gtt. Cardiology consult placed. Will follow regarding discharge plan and [facility]OC appropriateness. CM updated [facility] liaison via secure message. Barriers/Today we still Wait: Administering IV medications, Clinical stability, [facility] recommendations (comment), Symptomatic control pressort gtt - on/off, amio gtt, therapy evals ongoing. Ortho, Geriatrics, and cardiology following/consults. Length of Stay (Days): 3 GMLOS: 4.4 Case management will continue to follow for discharge planning. Care Management Progress Note Short Medical why still here: Admitted for hip fx s/p ORIR 04/21/2025. Remains for pressort gtt, therapy evals ongoing, post discharge plan pending. Ortho following/consults. Planned Discharge Disposition: Inpatient Rehab Facility ([facility] vs SNF in [place]) Spoke with patient at bedside. Re-introduced myself and role. Discussed discharge planning. Patient agreeable to [facility] or SNF in [place] but has not decided on FOC. Patient requests patient to return tomorrow for choice. CM updated [facility] liaison via secure message. Barriers/Today we still Wait: Administering IV medications, Clinical stability, [facility] recommendations (comment), Patient/caregiver facility choice pressor gtt, therapy evals ongoing. Ortho following/consults. Length of Stay (Days): 2 GMLOS: No GMLOS Documented Case management will continue to follow for discharge planning. RH Referral placed to [facility] via [facility] per [facility] request. Awaiting review and response regarding ability to accept. TCC notified. Care Management Progress Note Short Medical why still here: Admitted for hip fx s/p ORIR 04/21/2025. Remains for IVABX, pressort gtt, PRBCs, therapy evals pending. Ortho following/consults. Initial Assessment: Chart reviewed. Patient from home. Has insurance and PCP listed on EHR. Discussed discharge planning and therapy recs. CM proved SNF and rehab hospital choice lists. Patient interested in rehab hospitals but currently unsure if she would be strong enough for 2-3 hours of therapy. Patient agreeable to [facility] reviewing chart and following peripherally. CM tasked EYELET MAKER to send referral via [employer]. CM will follow clinical progress and continue to work on discharge planning. Planned Discharge Disposition: Inpatient Rehab Facility (Rehab Hospital vs SNF) Barriers/Today we still Wait: Administering IV medications, Clinical stability, [facility] recommendations (comment) IVABX, pressort gtt, PRBCs, therapy evals pending. Ortho following/consults. Length of Stay (Days): 1 GMLOS: No GMLOS Documented Case management will continue to follow for discharge planning. notified via secure chat of critical lab value of lactic acid of 4.3, no new order received. Pt granddaughter. Ed, updated at this time. Pt family given pt new room number, on the way to T2 waiting room. Dr. Ha at pt bedside in PACU. ICU residents at pt bedside in PACU. Dr. Lee at pt bedside Pt granddaughter, Ed, updated at this time. Ortho.residents at pt bedside to assess pt. Pt w/ hematoma to surgical site L outer thigh, assessed, wrapped w/ MARYAM wrap, saline bag. Per MD, leave MARYAM wrap on overnight. Dr. Coto at pt bedside in PACU. [facility] [address] [address] Dept: [phone] Loc: [phone] Operative Report Patient Name: Maday Alfaro Date of : 1940 Date of Surgery: 04/21/25 Pre-operative diagnosis: Left intertrochanteric femur fracture Post-operative diagnosis: Same Procedure(s): Intertan nailing of left intertrochanteric femur fracture Surgeon: Travis Meng M.D. Digital Marketer(s): Rigo Baird M.D. and Janneth Centeno M.D. Anesthesia: General EBL: 150 cc IVF: Crystalloid Medications: Ancef 2 grams IV Implants: Intertan 10mm x40cm nail, 125 degree Clinical History/Indication for Surgery The patient is a 84 y.o. year old female who was presents for operative fixation of a left intertrochanteric femur fracture. Typical indications for surgery were reviewed and long Intertan nailing was recommended. Risks of surgery in general were reviewed including, but not limited to, infection, nonunion, need for additional procedures, failure of fixation which would require revision, damage to normal structures as well as medical complications such as ID, stroke, PE, DVT, and even . Patient and any family present were given opportunity to ask questions and consider her options ultimately electing to proceed with surgery. No guarantees were given or implied. Operative Narration The patient was identified in the pre-operative holding area. The surgical site was identified and marked. Informed consent was obtained. The patient was then brought to the operating room and placed supine on the operating table. Anesthesia was administered and care of the head, neck, and airway was maintained by the anesthesia staff throughout the entire procedure. Patient was placed onto the fracture table. A well padded perineal post was placed. Both feet were well padded and placed in traction. Preop fluoroscopy confirmed a successful closed reduction. All bony prominences were identified and padded. The operative leg was prepped and draped in the usual sterile fashion. A surgical timeout was performed. Antibiotics were confirmed to have been given. The 3.2mm guide pin was placed percutaneously into the greater trochanter under AP and lateral fluoroscopic guidance. Once correctly positioned the skin incision was made to allow passage of the entry reamer over the pin. The long ball-tipped guidewire was passed across fracture and centered in the distal femur. 11 mm reamer was passed. The length of the nail was measured. The correct length and diameter nail was impacted using the depth tower to superior court judge the depth of placement. The proximal femur was prepared for the lag and worm screws with excellent compression achieved. Based on the patient's fracture pattern, the preloaded setscrew did not require locking. The distal screw was placed using perfect squaxin technique. Final films were obtained and saved. All incisions were irrigated and closed in a layered fashion. Sterile dressings were applied. Once the patient was awakened from anesthesia, they were transported to the PACU in stable condition, having tolerated surgery well with no immediate complications. Postoperative Plan WBAT Abx x 24hrs DVT prophylaxis Follow up 2wks This operative report was prepared and signed by Travis Meng MD at 04/21/25, 3:16 PM Date: 04/21/2025 Location: [facility] OR Name: Maday Harris Dominic, : 1940, Diagnosis Pre-op Diagnosis * Closed displaced intertrochanteric fracture of left femur, initial encounter ([facility]) [S72.142A] Post-op Diagnosis * Closed displaced intertrochanteric fracture of left femur, initial encounter ([facility]) [S72.142A] Procedures ORIF, FRACTURE, FEMUR, INTERTROCHANTERIC, WITH INTRAMEDULLARY IMPLANT INSERTION [id number] - WA TX INTER/WA/SUBTRCHNTRIC FEM FX IMED IMPLTSCREW Surgeons * Travis Meng - Primary Procedure Summary Anesthesia: * No anesthesia type entered * ASA: III Estimated Blood Loss: 100 mL Drains: Urethral Catheter (Active) Implants Type Name Action Serial No. Nail NAIL INTERTAN 10S 10X40 125D L - [id number] Implanted Screw KIT SCR 90MM 4.5MM INTERTAN - [id number] Implanted Screw SCREW BN 5MM 42.5MM TRGN FEM - [id number] Implanted Staff: Short Order Fry Cook: Darline Marquez RN Scrub Person: Wai King RN Findings: see operative note Complications: None; patient tolerated the procedure well. Specimens Collected: No specimens collected during this procedure. Wound Class: Class I: Clean Blood Products: None Prophylactic Antibiotics: Procedure appropriate prophylactic antibiotic(s) given within 1 hour of surgical incision (two hours if receiving Vancomycin or flouroquinolone) Post op Plan: -WBAT LLE -Ancef x 24 hrs -PT/OT -Dressing: Okay to remove dressing POD#2, if dry leave open to air, if saturated replace PRN -PACU xray -DVT, medical, and pain management per 1 -F/u with Dr. 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 Patient Choice Patient Name: MADAY ALFARO Date of : 1940 All Providers Sent Referral Name: [facility] Phone: [phone] Address: [address] [place] [address] Name: Leonela Corea - CPAN Member Phone: [phone] Address: [address] [place] [address] Name: May LIN Phone: [phone] Address: [address] [place] [address] Name: [facility] Phone: [phone] Address: [address] [place] [address] [facility] 04-30-2025 Progress note Formatting of t his note might be different from the original. Confirmed pickup time of 11:00am on 04/30/25 by transport [facility] [employer] [facility] at phone number [phone]. Location of facility drop off [facility]. Facility notified via [employer], TCC notified on secure chat. [facility] [employer] [place] 04-30-2025 Progress note Formatting of t his note might be different from the original. Care Management Progress Note Short Medical why still here: Auth approved. Good until 05/02. Auth number is [id number] Family agree to plan Arrange transport this am for 10 Discharged and ready , adore done 7000 done Planned Discharge Disposition: Alf Facility to [facility] Barriers/Today we still Wait: Attending completion of discharge workflow- discharged Length of Stay (Days): 9 GMLOS: 4.4 [facility] [employer] [place] 04-29-2025 History of Presen t illness Narrative Nutrition Assessment Type and Reason for Visit: Reassess Nutrition Recommendations/Plan: Continue current diet and ONS. Please document % meal intakes under I/O flowsheet. Obtain reliable source of CBW to assess potential wt changes. Monitor nutrition status, intakes, wt trends, labs, and fluid balance. RD will continue to follow. Malnutrition Assessment: Malnutrition Status: Insufficient data Nutrition Assessment: Pt PMHx of HTN, seizure, insomnia and HLD is presenting for left hip pain after mechanical fall. X-ray of left hip with acute commuted intertrochanteric fracture of left hip with varus angulation. Ortho consulted; s/p OR 04/21 for left hip CMN. Transferred out of ICU 04/25. Discharge SNF pending placement. Estimated Daily Nutrient Needs: Energy Requirements Based On: Kcal/kg Weight Used for Energy Requirements: [place] Weight for Energy Calculation (kg): 59 kg Total Energy Requirements (kcals/day): 8989-5994 Weight Used for Protein Requirements: [place] Weight in Kg Used for Protein Requirements: 59 kg Estimated Total Protein (g/day): 71-83 Estimated Daily Total Fluid (ml/day): per MD Nutrition Related Findings: +BS. -I&O. No edema. Galileo 16 Wound Type: Surgical Incision BMP: Recent Labs 04/27/25 0122 04/28/25 0558 04/29/25 0506 NA 131* 130* 129* K 3.9 4.0 3.7 CL 102 102 102 CO2 22* 23 24 BUN 16 19 13 CREATININE 0.51* 0.48* 0.47* GLUCOSE 95 97 103 CALCIUM 8.6* 8.7* 9.0 MG 2.0 -- -- PHOS 2.2* -- -- HEPATIC: No results for input(s): AST, ALT, BILITOT, ALKPHOS in the last 72 hours. No lab exists for component: ALB No results found for: HGBA1C Current Nutrition Therapies: Adult diet Regular Current Oral Intake Average Meal Intake: 26-50%, 51-75%, 76-100% Average Supplements Intake: 51-75%, 76-100% Anthropometric Measures: Height: 167.6 cm (5' 6) Current Body Weight: 61.7 kg (136 lb) Weight Source: Not Specified Usual Body Weight: 66.2 kg (146 lb) (11/21) % Weight Change (Calculated): -6.8 [place] Body Weight (lbs) (Calculated): 130 lbs [place] Body Weight (Kg) (Calculated): 59 kg % [place] Body Weight (Calculated): 104.6 % BMI (kg/m2) (Calculated): 22 Weight Adjustment For: No Adjustment BMI Categories: Normal Weight (BMI 22.0 to 24.9) age over 65 Nutrition Diagnosis: Increased nutrient needs related to increase demand for energy/nutrients as evidenced by wounds Nutrition Interventions: Nutrition Education/Counseling: No recommendation at this time Coordination of Nutrition Care: Continue to monitor while inpatient Goals: Previous Goal Met: Progressing toward Goal(s) Goals: Meet at least 75% of estimated needs, by next RD assessment Nutrition Monitoring and Evaluation: Behavioral-Environmental Outcomes: None Identified Food/Nutrient Intake Outcomes: Food and Nutrient Intake, Supplement Intake Physical Signs/Symptoms Outcomes: Biochemical Data, GI Status, Fluid Status or Edema, Nutrition Focused Physical Findings, Skin, Weight Discharge Planning: Too soon to determine Elizabeth Green RD, LD Contact: [phone] Images from the original note were not included. OCCUPATIONAL THERAPY [facility] Treatment Note Name/MRN: Maday Alfaro ([id number]) Date of : 1940 Age: 84 y.o. Room/Bed: W3-328/W3-328 B Discharge Recommendation: Alf Facility Assessment Pt was alert and oriented x3. Pt is limited by decreased activity tolerance, gen weakness, L sided weakness. Pt is showing progress with therapy and would benefit from continued services with OT to increase ind c/ ADLs, fxl mobility and transfers. Recommending SNF upon discharge. Subjective Pt was agreeable to tx, supine in bed upon arrival. Pain: Mcqueen-Pelletier Pain Ratin = Hurts little more Pain Location: LLE Medical Precautions: No active isolations Proper PPE donned/doffed in accordance with facility standards. Fall Risk: Bolivar Fall Risk Score: 85 (Low Risk) Bolivar Fall Risk Score: 85 (High Risk) Precautions/Restrictions: Left LE Weight Bearing: Weight Bearing As Tolerated Lines/Drains/Airways: tele, PIV Family/Caregiver Present: none Objective ADLs Grooming: Supervision, cuing to initiate oral care and to brush hair EOB. Bed Mobility Supine to sit: Min Assist Scooting: Min Assist HOB Elevated Transfers/Mobility Sit to stand: Min Assist, completed x2 from bed. Stand to sit: Min Assist, to A c/ decent. Bed to chair: Supervision, c/ fww to monitor balance. Standing balance: Supervision, c/ fww able to tolerate static stand for approx 3 minutes. Differed dynamic standing d/t pain in left leg. Device(s) used: Front wheeled walker Plan Continue acute OT per plan of care. Safety/Education Safety Safety Devices in place: All fall risk precautions in place, call light within reach, left in chair, gait belt, patient at risk for falls, nurse notified, and no alarms engaged upon entry Restraints: No Education Education Given To: patient Education Provided: OT Role, Plan of Care, Transfer Training, and Discharge Recommendations Education Method: Verbal Barriers to Learning: Cognition Education Outcome: Verbalized Understanding AM-PAC AM-PAC Inpatient Daily Activity Raw Score: 12 ADL Inpatient CMS G-Code Modifier: CL Goals Patient Stated Goal: for BP to get better Encounter Problems Encounter Problems (Active) Balance Patient will maintain dynamic standing balance for 3-5 minutes with min assist in order to demonstrate decreased risk of falling. (Initiated) Start: 04/24/25 Expected End: 05/22/25 Bathing Patient will utilize adaptive techniques to bathe body min A. (Not Addressed) Start: 04/24/25 Expected End: 05/22/25 Dressing Upper Extremities Patient will complete upper body dressing ID. (Not Addressed) Start: 04/24/25 Expected End: 05/22/25 Dressings Lower Extremities Patient will dress lower body min A. (Not Addressed) Start: 04/24/25 Expected End: 05/22/25 Toileting Patient will complete toileting tasks at standard toilet with min assist. (Not Addressed) Start: 04/24/25 Expected End: 05/22/25 Therapy Time Individual Co-treatment Time In 0240 Time Out 0305 Minutes 25 23 billable minutes Variance: 3 (Item retrieval) 1 Self LUIGI May Cosigned by TRACY Powell at 04/29/2025 3:23 PM EDT Patient declined smoking cessation counseling. Handout given with contact information for future reference. Images from the original note were not included. PHYSICAL THERAPY [facility] Treatment Note Name/MRN: Maday Alfaro ([id number]) Date of : 1940 Age: 84 y.o. Room/Bed: W3-328/W3-328 B Discharge Recommendation: Alf Facility Other: owns walkerX2 Assessment Continues with limited activity tolerance and position change due to feeling dizzy, pain. Dizziness seemed vary with seated position. Limited weight shift left. Encouraged OOB, patient request return to supine. Rec skilled PT Subjective Agree to PT Pain: left hip pain, weakness Medical Precautions: No active isolations Proper PPE donned/doffed in accordance with facility standards. Fall Risk: Bolviar Fall Risk Score: 85 (Low Risk) Bolivar Fall Risk Score: 85 (High Risk) Precautions/Restrictions: Left LE Weight Bearing: Weight Bearing As Tolerated Lines/Drains/Airways: tele Overall Cognitive Status: WFL Overall Orientation Status: Oriented x4 Family/Caregiver Present: none Objective Bed Mobility Supine to sit: Mod Assist Sit to supine: Mod Assist Rolling to right: Min Assist Scooting: Mod Assist HOB Elevated Use of bed rail(s) Increased time/effort, exit right, assist for trunk elevation, scoot EOB, lateral scoot. Balance: extended sit EOB mod/min assist due to retro and decreased weight shift left. UE reliance for positioning. Educated midline, increased shift left, hip/trunk extension Exercises Exercises Comments: perform hip fracture HEP use of handout for self guidance. assist for LLE heel slide, hip ABD/ADD. Other exercises Other exercises?: (I.S. [id number]) Plan Continue acute PT per plan of care. Safety/Education Safety Safety Devices in place: call light within reach, left in bed, bed alarm in place, gait belt, and no alarms engaged upon entry Restraints: No Education Therex, transfers, I.S., posture Outcome Measures AM-PAC AM-PAC Inpatient Mobility Raw Score (No Stairs) : 12 JH-HLM JH-HLM Scale: Sat at edge of bed Goals Patient Stated Goal: none stated Encounter Problems Encounter Problems (Active) Balance Patient will maintain static standing balance for 3 minutes with min assist in order to demonstrate decreased risk of falling. (Not Addressed) Start: 04/22/25 Expected End: 05/20/25 Patient will maintain static sitting balance for 3 minutes with min assist in order to demonstrate improved postural control and prepare for out of bed mobility. (Completed) Start: 04/22/25 Expected End: 05/20/25 Resolved: 04/28/25 Mobility Patient will ambulate 150 feet with SBA and least restrictive device in order to improve safety and independence with mobility. (Not Addressed) Start: 04/22/25 Expected End: 05/20/25 Patient will ascend and descend 3 stairs with one hand hold and min assist in order to safely negotiate home. (Not Addressed) Start: 04/22/25 Expected End: 05/20/25 Transfers Patient will perform bed mobility with independence in order to improve independence and prepare for out of bed mobility. (Progressing) Start: 04/22/25 Expected End: 05/20/25 Patient will complete functional transfer with least restrictive device with independence in order to prepare for ambulation. (Not Addressed) Start: 04/22/25 Expected End: 05/20/25 Therapy Time Individual Co-treatment Time In 946 Time Out 1010 Minutes 23 Timed Code Treatment Minutes: (fa-tp) Mary Pollard PTA Cosigned by Lexus Wadsworth, PT at 04/29/2025 12:15 PM EDT Hospitalist Progress Note 04/29/2025 Subjective: Admit Date: 04/21/2025 PCP: CHRISTIAN HARRISON NP Room#: W3-328/W3-328 B Interval History: The ICU on April 26 Pending placement. Denies chest pain shortness of breath abdominal pain nausea vomiting diarrhea lightheadedness dizziness syncope. Blood pressure stable. No fever. Systolic blood pressure ranges from 99-1 21 in the past 24 hours. Heart rates well-controlled in the 60s to 70s. Adult diet Regular 24HR INTAKE/OUTPUT: Intake/Output Summary (Last 24 hours) at 04/29/2025 1114 Last data filed at 04/29/2025 1027 Gross per 24 hour Intake 276.68 ml Output -- Net 276.68 ml Past Medical History: Medical History[1] LABS: CBC: Recent Labs 04/27/25 0122 04/28/25 0558 WBC 6.4 7.3 RBC 2.37* 2.35* HGB 7.7* 7.8* HCT 23.0* 22.6* MCV 97.0 96.2 RDW 14.6 14.9 PLT 181 216 BMP: Recent Labs 04/27/25 0122 04/28/25 0558 04/29/25 0506 NA 131* 130* 129* K 3.9 4.0 3.7 CL 102 102 102 CO2 22* 23 24 BUN 16 19 13 CREATININE 0.51* 0.48* 0.47* GLUCOSE 95 97 103 CALCIUM 8.6* 8.7* 9.0 ANIONGAP 7 5 3 LIVER PROFILE:No results for input(s): AST, ALT, BILITOT, ALKPHOS, PROT in the last 72 hours. No lab exists for component: LABALBU PT/INR: No results for input(s): PROTIME, INR in the last 72 hours. CARDIAC ENZYMES: No results for input(s): TROPONINI in the last 72 hours. Procalcitonin: No results found for: PROCAL COVID-19 PCR: No results for input(s): COVID19 in the last 72 hours. Objective: Vitals: BP 110/72 (BP Location: Left arm, Patient Position: Lying) Pulse 75 Temp 37.4 C (99.4 F) (Temporal) Resp 17 Ht 5' 6 (1.676 m) Wt 136 lb (61.7 kg) SpO2 94% BMI 21.95 kg/m Pulse Ox: SpO2 Av.8 % Min: 94 % Max: 97 % Supplemental O2: O2 Flow Rate (L/min): 6 L/min Physical Exam Cardiovascular: Rate and Rhythm: Normal rate and regular rhythm. Pulmonary: Effort: Pulmonary effort is normal. No respiratory distress. Abdominal: Palpations: Abdomen is soft. Neurological: Mental Status: She is alert and oriented to person, place, and time. Medications: Scheduled PRN Scheduled Meds[2] PRN Meds[3] Continuous Continuous Meds[4] Assessment 84-year-old female presented with mechanical fall with left hip pain on April 21. Patient revealed left intra trochanteric hip fracture with subtrochanteric extension. April 21 underwent InterTAN nailing of left intertrochanteric fracture by Dr. Meng. Fortunately patient was hypotensive requiring neoepinephrine and epinephrine. Patient was started on Levophed in PACU and ICU was consulted. Cardiology signed off on April 25. Cardiology ordered 30-day outpatient event monitor. Cardiology was consulted for paroxysmal atrial fibrillation recommended no oral anticoagulation due to anemia and patient is in current sinus rhythm. Patient was started on amiodarone drip and no recommendation to transition to oral by cardiology. April 24 patient was weaned off of vasopressors. Cardiology recommends holding outpatient lisinopril 20 mg daily and reinitiate if needed. Geriatric medicine was consulted for a fall leading to a fracture. Multifactorial risk factors for falling including deconditioning medication effect and seizures. ECHO Left Ventricle: Left ventricle is smaller than normal. Basal septal thickening. Hyperdynamic left ventricular systolic function. EF by 2D Simpsons Biplane is 87%. Normal wall motion.Right Ventricle: Right ventricle size is normal. Normal systolic function.No significant valvular abnormalities. Hypotension resolved Paroxysmal atrial fibrillation cardiology recommending holding anticoagulation given anemia. Follow-up with cardiology outpatient regarding ongoing management and initiating anticoagulation on outpatient basis Shock requiring vasopressors Left intertrochanteric hip fracture with subtrochanteric extension status post InterTAN nailing of left intertrochanteric fracture by Dr. Meng on April 21 Anxiety Hyponatremia Orthostatic hypotension resolved Depression Hypertension Hyperlipidemia Normocytic anemia, April 21 hemoglobin 14.8 April 28 hemoglobin 7.8 Continue aspirin Dilantin sertraline PT OT recommending [facility] facility, April 29 Extended Emergency Contact Information Primary Emergency Contact: Jono Fragoso Mobile Relation: Son Secondary Emergency Contact: Madelin Huang Relation: Sister Chaz DO [facility] Division of Hospitalist Medicine [employer] [facility] [1] Past Medical History: Diagnosis Date Hypertension Seizures (HCC) [2] acetaminophen, 1,000 mg, Oral, TID aspirin, 81 mg, Oral, Daily enoxaparin, 30 mg, SubCUTAneous, q12h ergocalciferol, 1.25 mg, Oral, Weekly melatonin, 5 mg, Oral, Nightly phenytoin ER, 200 mg, Oral, BID polyethylene glycol (PEG) 3350, 17 g, Oral, Daily senna-docusate sodium, 2 tablet, Oral, BID sertraline, 200 mg, Oral, Daily thiamine, 100 mg, IntraVENous, Daily [3] PRN medications: naloxone, oxyCODONE OR oxyCODONE, perflutren protein A microsphere (Optison) 3 mL in sodium chloride (PF) 0.9 % 10 mL IV, sodium chloride, sodium chloride, temazepam [4] Images from the original note were not included. OCCUPATIONAL THERAPY [facility] Treatment Note Name/MRN: Maday Alfaro ([id number]) Date of : 1940 Age: 84 y.o. Room/Bed: [facility] Discharge Recommendation: Alf Facility Assessment Pt was alert and oriented x3. Pt was able to complete bed mobility and standing with Mod A. Pt is limited by decreased activity tolerance, gen weakness, WBAT LLE (pain). Pt is showing progress with acute OT and would benefit from continued services. Recommending SNF level therapies upon discharge. Subjective Pt was agreeable to tx, supine in bed upon arrival. Pain: 0-10 pain scale: 8/10 Location: L hip Medical Precautions: No active isolations Proper PPE donned/doffed in accordance with facility standards. Fall Risk: Bolivar Fall Risk Score: 60 (Low Risk) Bolivar Fall Risk Score: 60 (High Risk) Precautions/Restrictions: Left LE Weight Bearing: Weight Bearing As Tolerated Lines/Drains/Airways: tele, PIV Family/Caregiver Present: none Objective ADLs UE Dressing: Supervision, set up for item retrieval, donned jacket. Bed Mobility Supine to sit: Mod Assist Sit to supine: Mod Assist Rolling to right: Mod Assist Scooting: Mod Assist HOB Elevated Use of bed rail(s) Transfers/Mobility Sit to stand: Mod Assist Stand to sit: Mod Assist Standing balance: Mod Assist, for balance and d/t gen weakness. Device(s) used: Used therapist for support Plan Continue acute OT per plan of care. Safety/Education Safety Safety Devices in place: All fall risk precautions in place, call light within reach, left in bed, bed alarm in place, gait belt, patient at risk for falls, and nurse notified Restraints: No Education Education Given To: patient Education Provided: OT Role, Plan of Care, ADL Adaptive Strategies, Transfer Training, Discharge Recommendations, and Benefits of Increasing Activity Education Method: Verbal Barriers to Learning: Cognition Education Outcome: Verbalized Understanding AM-PAC AM-PAC Inpatient Daily Activity Raw Score: 12 ADL Inpatient CMS G-Code Modifier: CL Goals Patient Stated Goal: for BP to get better Encounter Problems Encounter Problems (Active) Balance Patient will maintain dynamic standing balance for 3-5 minutes with min assist in order to demonstrate decreased risk of falling. (Initiated) Start: 04/24/25 Expected End: 05/22/25 Bathing Patient will utilize adaptive techniques to bathe body min A. (Not Addressed) Start: 04/24/25 Expected End: 05/22/25 Dressing Upper Extremities Patient will complete upper body dressing ID. (Initiated) Start: 04/24/25 Expected End: 05/22/25 Dressings Lower Extremities Patient will dress lower body min A. (Not Addressed) Start: 04/24/25 Expected End: 05/22/25 Toileting Patient will complete toileting tasks at standard toilet with min assist. (Not Addressed) Start: 04/24/25 Expected End: 05/22/25 Therapy Time Individual Co-treatment Time In 1110 Time Out 1127 Minutes 17 Timed Code Treatment Minutes: 17 Minutes 1 FA LUIGI May Cosigned by TRACY Powell at 04/29/2025 8:12 AM EDT Hospitalist Progress Note 04/28/2025 Subjective: Admit Date: 04/21/2025 PCP: CHRISTIAN HARRISON NP [facility]#: [facility] Interval History: The ICU on April 26 Systolic blood pressure 97-1 20s. Heart rate 60s to 70s. On room air. No fever. Denies lightheadedness dizziness chest pain shortness of breath abdominal pain nausea vomiting. Adult diet Regular 24HR INTAKE/OUTPUT: Intake/Output Summary (Last 24 hours) at 04/28/2025 1022 Last data filed at 04/28/2025 0554 Gross per 24 hour Intake 940 ml Output 1300 ml Net -360 ml Past Medical History: Medical History[1] LABS: CBC: Recent Labs 04/26/255004/27/2512104/28/25 0558 WBC 6.8 6.4 7.3 RBC 2.32* 2.37* 2.35* HGB 7.7* 7.7* 7.8* HCT 22.2* 23.0* 22.6* MCV 95.7 97.0 96.2 RDW 14.4 14.6 14.9 PLT 150 181 216 BMP: Recent Labs 04/26/255004/27/2512104/28/25 0558 NA 131* 131* 130* K 4.2 3.9 4.0 CL 104 102 102 CO2 22* 22* 23 BUN 14 16 19 CREATININE 0.49* 0.51* 0.48* GLUCOSE 103 95 97 CALCIUM 8.4* 8.6* 8.7* ANIONGAP 5 7 5 LIVER PROFILE:No results for input(s): AST, ALT, BILITOT, ALKPHOS, PROT in the last 72 hours. No lab exists for component: LABALBU PT/INR: No results for input(s): PROTIME, INR in the last 72 hours. CARDIAC ENZYMES: No results for input(s): TROPONINI in the last 72 hours. Procalcitonin: No results found for: PROCAL COVID-19 PCR: No results for input(s): COVID19 in the last 72 hours. Objective: Vitals: BP 107/64 (BP Location: Left arm, Patient Position: Lying) Pulse 69 Temp 36.9 C (98.4 F) (Temporal) Resp 18 Ht 5' 6 (1.676 m) Wt 136 lb (61.7 kg) SpO2 96% BMI 21.95 kg/m Pulse Ox: SpO2 Av.5 % Min: 92 % Max: 96 % Supplemental O2: O2 Flow Rate (L/min): 6 L/min Physical Exam Cardiovascular: Rate and Rhythm: Normal rate and regular rhythm. Pulmonary: Effort: Pulmonary effort is normal. No respiratory distress. Abdominal: Palpations: Abdomen is soft. Neurological: Mental Status: She is alert and oriented to person, place, and time. Medications: Scheduled PRN Scheduled Meds[2] PRN Meds[3] Continuous Continuous Meds[4] Assessment 84-year-old female presented with mechanical fall with left hip pain on April 21. Patient revealed left intra trochanteric hip fracture with subtrochanteric extension. April 21 underwent InterTAN nailing of left intertrochanteric fracture by Dr. Meng. Fortunately patient was hypotensive requiring neoepinephrine and epinephrine. Patient was started on Levophed in PACU and ICU was consulted. Cardiology signed off on April 25. Cardiology ordered 30-day outpatient event monitor. Cardiology was consulted for paroxysmal atrial fibrillation recommended no oral anticoagulation due to anemia and patient is in current sinus rhythm. Patient was started on amiodarone drip and no recommendation to transition to oral by cardiology. April 24 patient was weaned off of vasopressors. Cardiology recommends holding outpatient lisinopril 20 mg daily and reinitiate if needed. Geriatric medicine was consulted for a fall leading to a fracture. Multifactorial risk factors for falling including deconditioning medication effect and seizures. ECHO Left Ventricle: Left ventricle is smaller than normal. Basal septal thickening. Hyperdynamic left ventricular systolic function. EF by 2D Simpsons Biplane is 87%. Normal wall motion.Right Ventricle: Right ventricle size is normal. Normal systolic function.No significant valvular abnormalities. Hypotension resolved Paroxysmal atrial fibrillation cardiology recommending holding anticoagulation given anemia. Follow-up with cardiology outpatient regarding ongoing management and initiating anticoagulation on outpatient basis Shock requiring vasopressors Left intertrochanteric hip fracture with subtrochanteric extension status post InterTAN nailing of left intertrochanteric fracture by Dr. Meng on April 21 Anxiety Orthostatic hypotension resolved Depression Hypertension Hyperlipidemia Citic anemia, April 21 hemoglobin 14.8 April 28 hemoglobin 7.8 Continue aspirin Dilantin sertraline PT OT recommending [facility] facility, April 29 Extended Emergency Contact Information Primary Emergency Contact: Jono Fragoso Mobile Relation: Son Secondary Emergency Contact: Madelin Huang Relation: Sister Chaz DO [facility] Division of Hospitalist Medicine [employer] [1] Past Medical History: Diagnosis Date Hypertension Seizures (HCC) [2] acetaminophen, 1,000 mg, Oral, TID aspirin, 81 mg, Oral, Daily enoxaparin, 30 mg, SubCUTAneous, q12h ergocalciferol, 1.25 mg, Oral, Weekly melatonin, 5 mg, Oral, Nightly phenytoin ER, 200 mg, Oral, BID polyethylene glycol (PEG) 3350, 17 g, Oral, Daily senna-docusate sodium, 2 tablet, Oral, BID sertraline, 200 mg, Oral, Daily thiamine, 100 mg, IntraVENous, Daily [3] PRN medications: naloxone, oxyCODONE OR oxyCODONE, perflutren protein A microsphere (Optison) 3 mL in sodium chloride (PF) 0.9 % 10 mL IV, sodium chloride, sodium chloride, temazepam [4] Images from the original note were not included. PHYSICAL THERAPY [facility] Treatment Note Name/MRN: Maday Alfaro ([id number]) Date of : 1940 Age: 84 y.o. Room[facility]Bed: [facility] Discharge Recommendation: Alf Facility Other: owns [email or web address] Assessment BP supine 110/65, seated 119/76, stance 97/69, supine 125/69. Nurse notified, patient symptomatic c/o dizzy, request to sit/lay down. Limited activity tolerance, limited progress. Rec skilled PT Subjective Agree to PT Pain: no c/o supine, left hip pain with movement; ice pack to left hip end of session provided relief Medical Precautions: No active isolations Proper PPE donned/doffed in accordance with facility standards. Fall Risk: Bolivar Fall Risk Score: 60 (Low Risk) Bolivar Fall Risk Score: 60 (High Risk) Precautions/Restrictions: Left LE Weight Bearing: Weight Bearing As Tolerated Lines/Drains/Airways: tele Overall Cognitive Status: purewick Overall Orientation Status: Oriented x4 Family/Caregiver Present: none Objective Bed Mobility Supine to sit: Mod Assist Sit to supine: Mod Assist Rolling to right: Mod Assist Scooting: Mod Assist HOB Elevated Use of bed rail(s) Increased time/effort. Exit right Transfers/Mobility Sit to stand: Mod Assist Stand to sit: Min Assist Educated hand placement, decreased anterior weight shift Device(s) used: Front wheeled walker and bed height elevated Balance: seated UE reliance, decreased midline, avoids weight shift left. Stance BUE support mod/min assist due to retro LOB. Limited stance tolerance due to dizzy Exercises Exercises Comments: hip fracture HEP provided/performed with assist Educate ex's Plan Continue acute PT per plan of care. Safety/Education Safety Safety Devices in place: call light within reach, left in bed, bed alarm in place, gait belt, and nurse notified Restraints: No Education See above Outcome Measures AM-PAC AM-PAC Inpatient Mobility Raw Score (No Stairs) : 15 JH-HLM JH-HLM Scale: Transferred to chair/commode Goals Patient Stated Goal: decrease feeling dizzy Encounter Problems Encounter Problems (Active) Balance Patient will maintain static standing balance for 3 minutes with min assist in order to demonstrate decreased risk of falling. (Progressing) Start: 04/22/25 Expected End: 05/20/25 Patient will maintain static sitting balance for 3 minutes with min assist in order to demonstrate improved postural control and prepare for out of bed mobility. (Completed) Start: 04/22/25 Expected End: 05/20/25 Resolved: 04/28/25 Mobility Patient will ambulate 150 feet with SBA and least restrictive device in order to improve safety and independence with mobility. (Not Addressed) Start: 04/22/25 Expected End: 05/20/25 Patient will ascend and descend 3 stairs with one hand hold and min assist in order to safely negotiate home. (Not Addressed) Start: 04/22/25 Expected End: 05/20/25 Transfers Patient will perform bed mobility with independence in order to improve independence and prepare for out of bed mobility. (Progressing) Start: 04/22/25 Expected End: 05/20/25 Patient will complete functional transfer with least restrictive device with independence in order to prepare for ambulation. (Progressing) Start: 04/22/25 Expected End: 05/20/25 Therapy Time Individual Co-treatment Time In 0840 Time Out 0910 Minutes 30 Timed Code Treatment Minutes: (fa-tp) Mary Pollard DENTAL ASSISTANT INSTRUCTOR Cosigned by Seema Holcomb PT at 04/28/2025 9:57 AM EDT [facility] Geriatric Medicine Inpatient Consult Service Admission Date: 04/21/2025 Assessment Principal Problem: Closed intertrochanteric fracture of hip, left, initial encounter (HCC) Plan Fall -Multiple risk factors including deconditioning, seizures, possible medication effect -Continue PT/OT as able while inpatient -Vitamin D - low - agree with replacement initiated over the weekend -Check orthostatic vital signs as able -> negative on 04/23. -Medications with associated fall risk include: Temazepam - benzos increase fall risk and risk of confusion. At risk for withdrawal without it. As outpatient, consider attempting gradual dose reduction and switching to alternate/safer regimen (melatonin vs low dose trazodone) Dilantin - slightly supratherapeutic but looking at timing of labs (drawn approx 2 hrs after administration of medication),concern for accuracy. Sertraline - SSRI/SNRI's have been associated with increased fall risk. Continue to evaluate risks vs benefits and consider attempting dose reduction as outpatient Acute pain due to trauma L hip fracture --Continue scheduled acetaminophen 1g TID with PRN oxycodone (consider decreasing to 2.5-5mg) PRN for breakthrough. Lab Results Component Value Date ALT 17 04/21/2025 AST 24 04/21/2025 ALKPHOS 212 (H) 04/21/2025 BILITOT 0.8 04/21/2025 -Optimize nonpharmacologic pain treatment modalities. -continue scheduled bowel regimen while on narcotics Constipation - acute on chronic --Continue scheduled bowel regimen, BM last night. Seizure disorder --Pt reported seizures at home every few months --Dilantin levels slightly supratherapeutic but looking at timing of labs (drawn approx 2 hrs after administration of medication),concern for accuracy. --Would benefit from outpatient establishing with neurology. --No driving. At risk for delirium --No delirium at present but remains at risk --Risk factors: surgery, trauma, pain, advanced age, and high risk medications --Encourage PO intake, time up in chair, family visits, supervised ambulation, and sleep hygiene --If agitated, assess for and consider treating for pain --QTc= 489 --No antipsychotic unless patient is danger to self/others/treatment --Monitor for constipation/urinary retention - last BM 04/27 --Possible medication contributions: Temazepam - lowers delirium threshold but at risk for withdrawal without it Declining functional status --Related to acute injuries, deconditioning --Continue PT/OT as able while inpatient --Anticipate d/c to SNF for ongoing daily PT/OT, awaiting appeal for inpatient rehab Follow-up: prn, please page with any questions/issues Subjective Chief Complaint: fall Geriatrics consulted for Trauma due to fall HPI- The patient is known to me. 84 y.o. year-old female admitted to acute care from home for fall, reportedly found down after 4 hrs, lost balance walking in kitchen. Diagnosed with L femur fracture. Underwent surgical correction 04/21. Per initial geriatrics consult, lives at home alone. No baseline concerns about cognition or mood. Takes temazepam nightly for sleep. Uses a walker at baseline, has had multiple falls at home, all attributed to balance. Interval History: Transferred to telemetry. Consistently refusing acetaminophen, otherwise cooperative with medications. Using PRN oxycodone 0-2x/day. Used PRN temazepam the past 2 nights. Pt reports feeling OK, ongoing pain in L leg, worse with movement, able to get comfortable at rest. Denies confusion. Sleeping OK at night. Eating OK. 04/25: Seen by PT. Max assist. Ambulated 2ft. Recommending short term SNF for rehab. Review of Systems Gastrointestinal: Negative for constipation. Musculoskeletal: Positive for arthralgias (just that leg). Neurological: Negative for dizziness and light-headedness. Psychiatric/Behavioral: Negative for confusion and sleep disturbance. Objective BP 114/65 (BP Location: Left arm, Patient Position: Lying) Pulse 72 Temp 37.2 C (98.9 F) (Temporal) Resp 16 Ht 5' 6 (1.676 m) Wt 136 lb (61.7 kg) SpO2 94% BMI 21.95 kg/m Intake/Output Summary (Last 24 hours) at 04/28/2025 0845 Last data filed at 04/28/2025 0554 Gross per 24 hour Intake 1315 ml Output 1300 ml Net 15 ml Wt Readings from Last 3 Encounters: 04/22/25 136 lb (61.7 kg) 08/29/24 136 lb (61.7 kg) 07/18/24 136 lb (61.7 kg) Current Medications[1] Physical Exam Constitutional: No acute distress, well-nourished, well kempt Psych: Mood and affect Appropriate. Good eye contact. Cardiovascular: Regular rate and rhythm, no murmur Pulmonary/Chest: Clear to auscultation bilaterally, normal respiratory effort, no coughing noted Abdominal: Soft, not distended, no tenderness to palpation, BS present, Neurological: alert, attentive, speech is clear and appropriate , follows commands, no tremor Musculoskeletal: Gait: assessment deferred Skin: warm and dry, no visible rashes or wounds Labs and Imaging: Recent Results (from the past 24 hours) Basic metabolic panel Collection Time: 04/28/25 5:58 AM Result Value Ref Range SODIUM 130 (L) 136 - 145 mmol/L POTASSIUM 4.0 3.5 - 5.1 mmol/L CHLORIDE 102 98 - 107 mmol/L CARBON DIOXIDE 23 23 - 31 mmol/L UREA NITROGEN 19 9 - 23 mg/dL CREATININE 0.48 (L) 0.57 - 1.11 mg/dL GLUCOSE 97 82 - 115 mg/dL CALCIUM 8.7 (L) 8.8 - 10.0 mg/dL ANION GAP 5 3 - 13 mmol/L eGFR >90.0 >60.0 mL/min/1.73m*2 CBC auto differential Collection Time: 04/28/25 5:58 AM Result Value Ref Range Auto WBC 7.3 3.6 - 10.7 10*3/uL RBC 2.35 (L) 3.80 - 5.20 10*6/uL Hemoglobin 7.8 (L) 11.7 - 16.0 g/dL Hematocrit 22.6 (L) 35.0 - 47.0 % MCV 96.2 77.0 - 99.0 fL MCH 33.2 26.0 - 34.0 pg MCHC 34.5 30.5 - 36.0 % RDW 14.9 11.5 - 15.0 % Platelets 216 140 - 440 10*3/uL MPV 9.7 9.0 - 12.7 fL nRBC 0.0 0.0 - 2.0 /100 WBCs Neutrophils Relative 64.0 38.0 - 82.0 % Lymphocytes Relative 17.4 15.0 - 45.0 % Monocytes Relative 14.5 (H) 5.0 - 13.0 % Eosinophils Relative 1.7 0.0 - 6.0 % Basophils Relative 0.3 0.0 - 2.0 % Immature Grans % 2.1 (H) 0.0 - 2.0 % Neutrophils Absolute 4.7 1.8 - 7.5 10*3/uL Lymphocytes Absolute 1.3 1.0 - 4.3 10*3/uL Monocytes Absolute 1.1 (H) 0.0 - 0.9 10*3/uL Eosinophils Absolute 0.1 0.0 - 0.5 10*3/uL Basophils Absolute 0.0 0.0 - 0.2 10*3/uL Immature Grans Absolute 0.2 (H) <0.1 10*3/uL Lab Results Component Value Date TSH 1.44 04/24/2025 No results found for: [id number] Lab Results Component Value Date VITD25 7 (L) 04/25/2025 Reviewed: active problem lists, medications, and labs [1] Current Facility-Administered Medications: acetaminophen (Tylenol) tablet 1,000 mg, 1,000 mg, Oral, TID, DALTON Chow CNP, 1,000 mg at 04/25/25 0918 aspirin chewable tablet 81 mg, 81 mg, Oral, Daily, Jono Fernandez MD, 81 mg at 04/27/25 0844 enoxaparin (Lovenox) syringe 30 mg, 30 mg, SubCUTAneous, q12h, Jono Fernandez MD, 30 mg at 04/27/252124 ergocalciferol (Vitamin D2) capsule 1.25 mg, 1.25 mg, Oral, Weekly, Reynold Wade MD, 1.25 mg at 04/27/25 0843 melatonin tablet 5 mg, 5 mg, Oral, Nightly, Lisa Wayne MD, 5 mg at 04/27/252120 naloxone (Narcan) injection 0.4 mg, 0.4 mg, IntraVENous, q5 min PRN, Miller eLe DO oxyCODONE (Roxicodone) immediate release tablet 5 mg, 5 mg, Oral, q4h PRN, 5 mg at 04/28/25 0602 OR oxyCODONE (Roxicodone) immediate release tablet 10 mg, 10 mg, Oral, q4h PRN, Lisa Wayne MD, 10 mg at 04/27/25 08 perflutren protein A microsphere (Optison) 3 mL in sodium chloride (PF) 0.9 % 10 mL IV, 0-10 mL, IntraVENous, Once PRN, Lisa Wayne MD phenytoin ER (Dilantin) capsule 200 mg, 200 mg, Oral, BID, Lisa Wayne MD, 200 mg at 04/27/252120 polyethylene glycol (PEG) 3350 (Miralax) packet 17 g, 17 g, Oral, Daily, Lisa Wayne MD, 17 g at 04/27/25 08 senna-docusate sodium (Senokot-S) 8.6-50 MG tablet 2 tablet, 2 tablet, Oral, BID, Lisa Wayne MD, 2 tablet at 04/27/252120 sertraline (Zoloft) tablet 200 mg, 200 mg, Oral, Daily, Yeimy Glasgow MD, 200 mg at 04/27/25 0844 sodium chloride 0.9 % infusion, 250 mL/hr, IntraVENous, PRN, Lisa Wayne MD sodium chloride 0.9 % infusion, 250 mL/hr, IntraVENous, PRN, Jono Fernandez MD temazepam (Restoril) capsule 15 mg, 15 mg, Oral, Nightly PRN, Yeimy Glasgow MD, 15 mg at 04/27/252120 thiamine (Vitamin B1) injection 100 mg, 100 mg, IntraVENous, Daily, Migdalia Joseph MD, 100 mg at 04/27/25 0843 Images from the original note were not included. PHYSICAL THERAPY [facility] Name/MRN: Maday Alfaro ([id number]) Date: 04/27/2025 Treatment is being deferred at present because she just completed therapy with OT and needs a rest . Keya Velasquez, DENTAL ASSISTANT INSTRUCTOR Cosigned by Lexus Wadsworth, PT at 04/27/2025 2:51 PM EDT Images from the original note were not included. OCCUPATIONAL THERAPY [facility] Treatment Note Name/MRN: Maday Alfaro ([id number]) Date of : 1940 Age: 84 y.o. Room/Bed: 3328/3[facility] Discharge Recommendation: Alf Facility Assessment Pt in bed upon arrival, agreeable to OT tx. Pt was mod assist for bed-mobility, CGA for sitting balance and dependent for LB dressing. Once sitting EOB pt reports dizziness requesting to return supine. Pt is limited by pain and dizziness. Pt would continue to benefit from skilled OT to adapt to deficits and increase Occupational Performance. OT is rec SNF upon planned discharge. Subjective Blood Pressure: 140/75 Pain: 0-10 pain scale: 6/10 Location: L hip Medical Precautions: No active isolations Proper PPE donned/doffed in accordance with facility standards. Fall Risk: Bolivar Fall Risk Score: 70 (Low Risk) Bolivar Fall Risk Score: 70 (High Risk) Precautions/Restrictions: Left LE Weight Bearing: Weight Bearing As Tolerated Lines/Drains/Airways: tele, PIV Family/Caregiver Present: none Objective ADLs LE Dressing: Dependent Pt was dep d/t LLE pain and dizziness for donning socks. Bed Mobility Supine to sit: Mod Assist Sit to supine: Mod Assist Scooting: Mod Assist HOB Elevated Use of bed rail(s) Pt was mod assist d/t LLE pain, stiffness and dizziness. Transfers/Mobility Sitting balance: Contact Guard Pt tolerated sitting EOB for ~3 minutes with CGA d/t slight posterior lean. Pt then requesting to return supine. Unable to completed transfers and STS d/t dizziness. Device(s) used: None Cognition WFL Plan Continue acute OT per plan of care. Safety/Education Safety Safety Devices in place: All fall risk precautions in place, call light within reach, left in bed, gait belt, patient at risk for falls, and nurse notified Restraints: No Education Education Given To: patient Education Provided: OT Role, Plan of Care, Precautions, ADL Adaptive Strategies, Transfer Training, Energy Conservation, Equipment, Fall Prevention Education, Discharge Recommendations, and Benefits of Increasing Activity Education Method: Verbal, Demonstration, and Teach Back Barriers to Learning: None Education Outcome: Verbalized Understanding and Demonstrated Understanding AM-PAC AM-PAC Inpatient Daily Activity Raw Score: 12 ADL Inpatient CMS G-Code Modifier: CL Goals Patient Stated Goal: for BP to get better Encounter Problems Encounter Problems (Active) Balance Patient will maintain dynamic standing balance for 3-5 minutes with min assist in order to demonstrate decreased risk of falling. (Not Addressed) Start: 04/24/25 Expected End: 05/22/25 Bathing Patient will utilize adaptive techniques to bathe body min A. (Not Addressed) Start: 04/24/25 Expected End: 05/22/25 Dressing Upper Extremities Patient will complete upper body dressing ID. (Not Addressed) Start: 04/24/25 Expected End: 05/22/25 Dressings Lower Extremities Patient will dress lower body min A. (Slowly Progressing) Start: 04/24/25 Expected End: 05/22/25 Toileting Patient will complete toileting tasks at standard toilet with min assist. (Not Addressed) Start: 04/24/25 Expected End: 05/22/25 Therapy Time Individual Co-treatment Time In 0134 Time Out 0151 Minutes 17 Timed Code Treatment Minutes: 17 Minutes (1 ACT) LUIGI Sims/[place] Cosigned by Katia Shafer OT at 04/28/2025 7:12 AM EDT Hospitalist Progress Note 04/27/2025 Subjective: Admit Date: 04/21/2025 PCP: CHRISTIAN HARRISON NP Room#: W3-328/W3-328 B BRIEF HOSPITAL COURSE: 84 y.o. female presents with L hip pain after fall from standing height on 04/21. She went to OR with orthopedic surgery on 04/21 for left intertrochanteric femur nailing with Dr. Meng. She was briefly hypotensive intraoperatively; but seemed to recover. However in PACU patient persistently hypotensive with systolic pressures in the 70s. No blood transfusions but did require some pushes of monica and epinephrine. Started on Levophed and was transferred to ICU for further care. Weaned off IV pressors in the ICU. Seen by cardiology for A-fib RVR-aggressive rehydration was recommended with strict electrolyte replacement. Currently off amiodarone, of note did get 2 units PRBC transfusion on 04/22. Noted scheduled P2P on 04/28 per ICU document review. Interval History: Seen and examined at bedside. No acute overnight events or medical complaints this morning. Hemoglobin stable-continue to monitor Adult diet Regular 24HR INTAKE/OUTPUT: Intake/Output Summary (Last 24 hours) at 04/27/2025 1141 Last data filed at 04/27/2025 0907 Gross per 24 hour Intake 1725 ml Output 2500 ml Net -775 ml Past Medical History: Medical History[1] LABS: CBC: Recent Labs 04/24/25 1142 04/25/25 0346 04/26/25 0051 04/27/25 0122 WBC 6.3 -- 6.8 6.4 RBC 2.53* -- 2.32* 2.37* HGB 8.3* 8.4* 7.7* 7.7* HCT 24.5* 24.1* 22.2* 23.0* MCV 96.8 -- 95.7 97.0 RDW 14.3 -- 14.4 14.6 PLT 97* -- 150 181 BMP: Recent Labs 04/25/25 0346 04/26/25 0051 04/27/25 0122 NA 132* 131* 131* K 3.8 4.2 3.9 CL 104 104 102 CO2 24 22* 22* BUN 15 14 16 CREATININE 0.48* 0.49* 0.51* GLUCOSE 104 103 95 CALCIUM 8.3* 8.4* 8.6* ANIONGAP 4 5 7 LIVER PROFILE: No results for input(s): AST, ALT, BILITOT, ALKPHOS, PROT in the last 72 hours. No lab exists for component: LABALBU PT/INR: No results for input(s): PROTIME, INR in the last 72 hours. CARDIAC ENZYMES: No results for input(s): TROPONINI in the last 72 hours. Procalcitonin: No results found for: PROCAL COVID-19 PCR: No results for input(s): COVID19 in the last 72 hours. Objective: Vitals: BP 140/75 (BP Location: Left arm, Patient Position: Sitting) Pulse 77 Temp 36.4 C (97.6 F) (Temporal) Resp 18 Ht 5' 6 (1.676 m) Wt 136 lb (61.7 kg) SpO2 95% BMI 21.95 kg/m Pulse Ox: SpO2 Av.7 % Min: 93 % Max: 97 % Supplemental O2: O2 Flow Rate (L/min): 6 L/min Physical Exam HENT: Head: Normocephalic. Cardiovascular: Rate and Rhythm: Normal rate. Pulmonary: Breath sounds: Normal breath sounds. Abdominal: Palpations: Abdomen is soft. Musculoskeletal: Comments: LLE dressing Neurological: Mental Status: She is alert. Medications: Scheduled PRN Scheduled Meds[2] PRN Meds[3] Continuous Continuous Meds[4] Assessment Acute, acute on chronic, unstable/uncontrolled chronic problems/diagnoses: Left intratrochanteric hip fracture with subtrochanteric extension Mechanical fall Acute blood loss anemia Thrombocytopenia 2/2 blood loss Lactic acidosis TANYA A-fib RVR-resolved Vitamin D deficiency Plan As a result of the above findings & factors, the following mgmt was pursued: - Multimodal pain control Noted on Dilantin for seizures; Zoloft, temazepam as needed for anxiety per ICU management Monitor blood pressure closely-of note lisinopril being held. Echo EF 57% A-fib with RVR resolved as well-patient seen by cardiology-currently off amiodarone and will benefit with outpatient event monitor Hemoglobin noted to downtrend to 7.7 today-continue to monitor every 24 hours and transfuse for less than 7 - am labs, replace lytes prn - PT/OT/CM/SW - delirium precautions: avoid anticholinergic meds, benzos, etc - DVT prophylaxis: enoxaparin and encourage ambulation Of note, per ICU documentation review-patient has a P2P scheduled for 04/28 Advance Directive: No Order Anticipated Discharge - Date -2-3 days - Location - Skilled Facility - Pending the following -placement, overall HD stability on GMF Extended Emergency Contact Information Primary Emergency Contact: Jono Fragoso Mobile Relation: Son Secondary Emergency Contact: Madelin Huang Relation: Sister Reynold aWde MD Division of Hospitalist Medicine [facility] [employer] This note may have been dictated using GetFeedback Practice Edition 2.6 and/or [employer] Mobile application. The document was proofread; however, unrecognized voice recognition marble rubber errors may be present. [1] Past Medical History: Diagnosis Date Hypertension Seizures (HCC) [2] acetaminophen, 1,000 mg, Oral, TID aspirin, 81 mg, Oral, Daily enoxaparin, 30 mg, SubCUTAneous, q12h ergocalciferol, 1.25 mg, Oral, Weekly melatonin, 5 mg, Oral, Nightly phenytoin ER, 200 mg, Oral, BID polyethylene glycol (PEG) 3350, 17 g, Oral, Daily senna-docusate sodium, 2 tablet, Oral, BID sertraline, 200 mg, Oral, Daily thiamine, 100 mg, IntraVENous, Daily [3] PRN medications: naloxone, oxyCODONE OR oxyCODONE, perflutren protein A microsphere (Optison) 3 mL in sodium chloride (PF) 0.9 % 10 mL IV, sodium chloride, sodium chloride, temazepam [4] Hospitalist Progress Note 04/26/2025 Subjective: Admit Date: 04/21/2025 PCP: CHRISTIAN HARRISON NP Room#: W3-328/W3-328 B BRIEF HOSPITAL COURSE: 84 y.o. female presents with L hip pain after fall from standing height on 04/21. She went to OR with orthopedic surgery on 04/21 for left intertrochanteric femur nailing with Dr. Meng. She was briefly hypotensive intraoperatively; but seemed to recover. However in PACU patient persistently hypotensive with systolic pressures in the 70s. No blood transfusions but did require some pushes of monica and epinephrine. Started on Levophed and was transferred to ICU for further care. Weaned off IV pressors in the ICU. Seen by cardiology for A-fib RVR-aggressive rehydration was recommended with strict electrolyte replacement. Currently off amiodarone, of note did get 2 units PRBC transfusion on 04/22. Interval History: Seen and examined at bedside. No overnight issues. No CP, SOB or other acute medical complaint this morning. Hemoglobin noted to downtrend-monitor closely and transfuse for less than 7 case and plan discussed with patient and bedside nurse. All questions answered. Adult diet Regular 24HR INTAKE/OUTPUT: Intake/Output Summary (Last 24 hours) at 04/26/2025 1142 Last data filed at 04/26/2025 0855 Gross per 24 hour Intake 1700 ml Output 1800 ml Net -100 ml Past Medical History: Medical History[1] LABS: CBC: Recent Labs 04/24/2544604/24/25 1142 04/25/25 0346 04/26/25 0051 WBC 6.0 6.3 -- 6.8 RBC 2.65* 2.53* -- 2.32* HGB 8.8* 8.3* 8.4* 7.7* HCT 25.3* 24.5* 24.1* 22.2* MCV 95.5 96.8 -- 95.7 RDW 14.4 14.3 -- 14.4 PLT 87* 97* -- 150 BMP: Recent Labs 04/24/2544604/25/25 0346 04/26/25 0051 NA 131* 132* 131* K 3.6 3.8 4.2 CL 104 104 104 CO2 23 24 22* BUN 15 15 14 CREATININE 0.51* 0.48* 0.49* GLUCOSE 110 104 103 CALCIUM 8.2* 8.3* 8.4* ANIONGAP 4 4 5 LIVER PROFILE: No results for input(s): AST, ALT, BILITOT, ALKPHOS, PROT in the last 72 hours. No lab exists for component: LABALBU PT/INR: No results for input(s): PROTIME, INR in the last 72 hours. CARDIAC ENZYMES: No results for input(s): TROPONINI in the last 72 hours. Procalcitonin: No results found for: PROCAL COVID-19 PCR: No results for input(s): COVID19 in the last 72 hours. Objective: Vitals: BP 137/73 (BP Location: Right arm, Patient Position: Lying) Pulse 71 Temp 36.7 C (98 F) (Temporal) Resp 16 Ht 5' 6 (1.676 m) Wt 136 lb (61.7 kg) SpO2 94% BMI 21.95 kg/m Pulse Ox: SpO2 Av.2 % Min: 94 % Max: 96 % Supplemental O2: O2 Flow Rate (L/min): 6 L/min Physical Exam HENT: Head: Normocephalic. Cardiovascular: Rate and Rhythm: Normal rate. Pulmonary: Effort: Pulmonary effort is normal. Musculoskeletal: Comments: LLE dressing Neurological: Mental Status: She is alert. Medications: Scheduled PRN Scheduled Meds[2] PRN Meds[3] Continuous Continuous Meds[4] Assessment Acute, acute on chronic, unstable/uncontrolled chronic problems/diagnoses: Left intratrochanteric hip fracture with subtrochanteric extension Mechanical fall Acute blood loss anemia Thrombocytopenia 2/2 blood loss Lactic acidosis TANYA A-fib RVR-resolved Vitamin D deficiency Plan As a result of the above findings & factors, the following mgmt was pursued: - Multimodal pain control Noted on Dilantin for seizures; Zoloft, temazepam as needed for anxiety per ICU management Monitor blood pressure closely-of note lisinopril being held. Echo EF 57% A-fib with RVR resolved as well-patient seen by cardiology-currently off amiodarone and will benefit with outpatient event monitor Hemoglobin noted to downtrend to 7.7 today-continue to monitor every 24 hours and transfuse for less than 7 - am labs, replace lytes prn - PT/OT/CM/SW - delirium precautions: avoid anticholinergic meds, benzos, etc - DVT prophylaxis: enoxaparin and encourage ambulation Advance Directive: No Order Anticipated Discharge - Date -2-3 days - Location - Skilled Facility - Pending the following -placement, overall HD stability on GMF Extended Emergency Contact Information Primary Emergency Contact: Jono Fragoso Mobile Relation: Son Secondary Emergency Contact: Madelin Huang Relation: Sister Reynold Wade MD Division of Hospitalist Medicine Acute [facility] This note may have been dictated using Dragon Medical Practice Edition 2.6 and/or [employer] application. The document was proofread; however, unrecognized voice recognition marble rubber errors may be present. [1] Past Medical History: Diagnosis Date Hypertension Seizures (HCC) [2] acetaminophen, 1,000 mg, Oral, TID aspirin, 81 mg, Oral, Daily enoxaparin, 30 mg, SubCUTAneous, q12h melatonin, 5 mg, Oral, Nightly mupirocin, , Nasal, BID phenytoin ER, 200 mg, Oral, BID polyethylene glycol (PEG) 3350, 17 g, Oral, Daily senna-docusate sodium, 2 tablet, Oral, BID sertraline, 200 mg, Oral, Daily thiamine, 100 mg, IntraVENous, Daily [3] PRN medications: naloxone, oxyCODONE OR oxyCODONE, perflutren protein A microsphere (Optison) 3 mL in sodium chloride (PF) 0.9 % 10 mL IV, sodium chloride, sodium chloride, temazepam [4] ICU TRANSFER CHECKLIST Transfer Med Reconciliation (resume home meds if able, convert to PO if able) Complete Antibiotics (name, indication, duration, convert to PO if able) None Steroid (indication, duration, convert to PO if able) None Anticipated [place] Medications (ICU initiated) or Dose Changes and Indication No Permanently Discontinued Home Medications and Reason for medication contraindication No Hicks Catheter (please remove if able) No Central Line (please remove if able) No Transfer Discussed with: Dr. Daniel Garnett If additional questions for ICU team within 24 hours of ICU transfer, page manager of production resident for clarifications. Jono Fernandez MD General Surgery Resident 04/25/25 1:53 PM Images from the original note were not included. PHYSICAL THERAPY [facility] Treatment Note Name/MRN: Maday Alfaro ([id number]) Date of : 1940 Age: 84 y.o. Room/Bed: T2-216/T2-216 A Discharge Recommendation: Alf Facility Other: tbd Assessment Pt was able to transition from supine to sitting EOB with mod assist with complaints of dizziness that resolved after 2 minutes. She is able to assist in moving her legs more when moving to EOB. Her blood pressure changed from 156/86 to 126/87 during this time. Pt performed several sit to stand transfers over to bedside commode and recliner with max assist and repeated verbal cueing for posture and moving her legs. Opal-care was also provided. Her final blood pressure reading was 104/87 once sat in the chair with some complaints of dizziness once in chair. Pt is a fall risk and not safe to return home, would recommend SNF at discharge. Subjective Pt cleared for PT by RN. Pt found in bed and agreeable to PT with family at beside Pain: 0-10 pain scale: 4/10 Location: abdominal pain (constipation) Medical Precautions: No active isolations Proper PPE donned/doffed in accordance with facility standards. Fall Risk: [place] Fall Risk Score: 60 (Low Risk) [place] Fall Risk Score: 60 (High Risk) Precautions/Restrictions: Left LE Weight Bearing: Weight Bearing As Tolerated Lines/Drains/Airways: tele, PIV Overall Cognitive Status: WFL Overall Orientation Status: Oriented x4 Family/Caregiver Present: child(juancarlos) Objective Bed Mobility Supine to sit: Mod Assist Scooting: Contact Guard Transfers/Mobility Sit to stand: Max Assist Stand to sit: Max Assist Stand pivot: Max Assist Bed to chair: Max Assist Bedside commode: Max Assist Pt was max assist from all transfers from bed, to commode, to chair. Pt was able to ambulate 2 ft at a time using a gait belt for each transfer. Device(s) used: None Ambulation Ambulation 1 Assistive device(s) used: None Assist level: Max Assist Distance (ft): 2 from bed to commode Quality of gait: shuffling, uneven step length, wide YAZMIN, postural sway, path deviations, instability through all phases Ambulation 2 Assistive device(s) used: None Assist level: Max Assist Distance (ft): 2 from commode to chair Quality of gait: shuffling, uneven step length, postural sway, path deviations, instability through all phases Balance During Session: Posture: fair Sitting - Static: Contact Guard Sitting - Dynamic: Min Assist Standing - Static: Max Assist; pt struggles to shift her hip under her to stand tall Standing - Dynamic: Max Assist; pt struggles to shift her hip under her to stand tall Exercises Pt practiced maintaining her seated balance using her hands for stability with min assist. Pt required verbal cueing to place her hands in the correct position for improved stability. Pt then worked on 5 [id number] transfers during this visit, with 2 of the transfers focusing on moving over to the commode and chair. Pt needed to rest between transfers for several minutes to rest due to weakness and dizziness. Pt required max assist for all sit to stand transfers and received opal-care after she was finished on the commode. She required repeated verbal and tactile cueing to shift her hips forward to be able to stand up straight and to move her feet in the direction of the transfer with little success. Plan Continue acute PT per plan of care. Safety/Education Safety Safety Devices in place: All fall risk precautions in place, call light within reach, left in chair, gait belt, and no alarms engaged upon entry Restraints: N/A Education Education Given To: patient Education Provided: Benefits of Increasing Activity Education Method: Verbal Barriers to Learning: None Education Outcome: Verbalized Understanding Outcome Measures AM-PAC AM-PAC Inpatient Mobility Raw Score (No Stairs) : 10 [facility] Goals Patient Stated Goal: Pt would like to improve her functional status. Encounter Problems Encounter Problems (Active) Balance Patient will maintain static standing balance for 3 minutes with min assist in order to demonstrate decreased risk of falling. (Progressing) Start: 04/22/25 Expected End: 05/20/25 Patient will maintain static sitting balance for 3 minutes with min assist in order to demonstrate improved postural control and prepare for out of bed mobility. (Progressing) Start: 04/22/25 Expected End: 05/20/25 Mobility Patient will ambulate 150 feet with SBA and least restrictive device in order to improve safety and independence with mobility. (Progressing) Start: 04/22/25 Expected End: 05/20/25 Patient will ascend and descend 3 stairs with one hand hold and min assist in order to safely negotiate home. (Progressing) Start: 04/22/25 Expected End: 05/20/25 Transfers Patient will perform bed mobility with independence in order to improve independence and prepare for out of bed mobility. (Progressing) Start: 04/22/25 Expected End: 05/20/25 Patient will complete functional transfer with least restrictive device with independence in order to prepare for ambulation. (Progressing) Start: 04/22/25 Expected End: 05/20/25 Therapy Time Individual Co-treatment Time In 1036 Time Out 1110 Minutes 34 Timed Code Treatment Minutes: 34 Minutes (FA) Genesis Faulkner, SPT Cosigned by Maryam Muro PT at 04/25/2025 3:07 PM EDT I am going [facility] Cardiology /Electrophysiology Progress Note HPI / Interval History: Maday Alfaro is a 84 y.o. female w/ PMH of HTN, hyperlipidemia and seizure disorder (on dilantin). She presented to [facility] 04/21 with a left femoral head fracture s/p L CMN (04/21/25, [place]). Cardiology is consulted for, afib on amio gtt, positive orthos. She has never been seen by cardiology before. Post-opeartively she has been hypotensive with blood pressures as low as 71/50. She was started on a levophed gtt for support. Developed Afib w/ RVR (04/23/25). Placed on amiodarone gtt with conversion to normal sinus rhythm the next day. She has now been weaned from levophed and remains on the amiodarone gtt. HR remains in sinus rythym. TTE (04/21/25) w/ hyperdynamic EF of 87%, normal wall motion, and no valvular abnormalities. Patient resting in bed. Patient says she feels fine. She does feel thirsty. Urine is a dark xiomara. Mucous membranes appear little dry. Patient denies chest pain, shortness of breath, palpitations, orthopnea, PND, lightheadedness, dizziness, presyncope, syncope, hematochezia or hematuria Assessment/Plan Paroxysmal atrial fibrillation -No OAC at this time due to anemia -Currently in sinus rhythm (approximate duration of A-fib 04/23/2025 5pm-11pm) -In the setting of recent surgery, hypovolemia, blood loss. (Admission hemoglobin 14) and requirement of pressors -Amiodarone gtt. completed 04/24/2025. No recommendation to transition to oral -Off pressors since early a.m. 04/24/2025 -Recommend K+>4, Mg <2, and Phos >3 -Recommend continuing to address volume and anemia, this will help maintain sinus rhythm -Recommend more IV rehydration at this time. Patient appears dry -Positive Ortho's expected due to patient's illness. Should improve as patient gets better -30-day outpatient event monitor ordered Hypertension - Recommend continuing to hold outpatient lisinopril 20 mg daily and only reinitiate if needed Cardiology Discharge/Sign-off Recommendations Cardiology medications to continue: [x] All cardiac medications as ordered currently [] Admission cardiac medications [] Please start the following medications on discharge: [] Please stop the following medications on discharge: Followup testing recommended as an outpatient: [] To be arranged by Inpatient provider/PCP [] Will be arranged by Cardiology Cardiology followup: [] Not needed [] Recommend primary service arrange f/u with patient's outpatient preparator 1-2 wks. [] Recommended; unable to arrange at this time, will arrange post-discharge [x] Arranged as follows: Krupa Cid APRN 05/13/2025 at 10 AM If there are any questions/concerns, please contact the covering provider. If no answer by Secure Chat, please call the cardiology office to obtain appropriate covering FRAME CHANGER/physician. Medications: Scheduled Meds[1] Infusion Medications: Continuous Meds[2] Physical Examination: Vitals: 04/25/25 0600 04/25/25 0700 04/25/25 0800 04/25/25 0900 BP: 137/76 133/96 128/77 131/71 BP Location: Patient Position: Pulse: 66 69 64 65 Resp: 08 03 14 18 Temp: 36.1 C (97 F) TempSrc: SpO2: 96% 95% 96% 95% Weight: Height: Intake/Output Summary (Last 24 hours) at 04/25/2025 0912 Last data filed at 04/24/2025 1800 Gross per 24 hour Intake 2894 ml Output 700 ml Net 2194 ml Patient Vitals for the past 168 hrs: Weight 04/22/25 1337 136 lb (61.7 kg) Physical Exam Cardiovascular: Rate and Rhythm: Normal rate and regular rhythm. Pulmonary: Effort: Pulmonary effort is normal. Musculoskeletal: Right lower leg: No edema. Left lower leg: No edema. Skin: Comments: Oral mucous membranes appear dry Neurological: Mental Status: She is alert and oriented to person, place, and time. Psychiatric: Mood and Affect: Mood normal. Behavior: Behavior normal. Thought Content: Thought content normal. Judgment: Judgment normal. Laboratory Tests: TROPONIN I, CONVENTIONAL SENSITIVITY CK Date Value Ref Range Status 04/21/2025 112 30 - 185 U/L Final TROPONIN I Date Value Ref Range Status 06/22/2022 <0.012 0.000 - 0.034 ng/mL Final TROPONIN I, HIGH SENSITIVITY Troponin HS Serial Baseline Date Value Ref Range Status 04/22/2025 90 (H) <=14 ng/L Final Comment: In individuals presenting with symptoms > 2h, a baseline troponin <= 5 ng/L suggests acute cardiac injury is unlikely and further serial testing is generally not indicated. 04/21/2025 68 (H) <=14 ng/L Final Comment: In individuals presenting with symptoms > 2h, a baseline troponin <= 5 ng/L suggests acute cardiac injury is unlikely and further serial testing is generally not indicated. 2h Troponin HS (Serial 2nd Troponin) Date Value Ref Range Status 04/22/2025 76 (H) <=14 ng/L Final Comment: Rising or falling troponin delta between 2 - 15 ng/L as compared to baseline value requires a 3rd serial troponin 04/21/2025 82 (H) <=14 ng/L Final Comment: Rising or falling troponin delta between 2 - 15 ng/L as compared to baseline value requires a 3rd serial troponin No results found for: TROPDELTBASE 4h Troponin HS (Serial 3rd Troponin) Date Value Ref Range Status 04/22/2025 66 (H) <=14 ng/L Final Comment: Rising or falling troponin delta between 2 - 15 ng/L as compared to 2h troponin value requires further evaluation. 04/21/2025 101 (H) <=14 ng/L Final Comment: Rising or falling troponin delta greater than 15 ng/L as compared to 2h troponin value is significant for acute cardiac injury. No results found for: TROPDELTSEC Recent Labs 04/23/25 0049 04/23/257 04/24/25 0447 04/25/25 0346 NA 132* 131* 131* 132* K 3.6 3.7 3.6 3.8 CL 105 105 104 104 CO2 22* 20* 23 24 BUN 21 15 15 15 CREATININE 0.59 0.52* 0.51* 0.48* Recent Labs 04/23/25 1204 04/23/25 1805 04/23/25 2204 04/24/25 0447 04/24/25 1142 04/25/25 0346 WBC 8.7 6.6 7.5 6.0 6.3 -- HGB 8.8* 8.8* 8.5* 8.8* 8.3* 8.4* HCT 25.3* 25.5* 24.0* 25.3* 24.5* 24.1* MCV 95.1 95.5 94.5 95.5 96.8 -- PLT 93* 84* 98* 87* 97* -- No results for input(s): BNP in the last 72 hours. No results for input(s): TRIG, HDL, LDLCALC, CHOL in the last 72 hours. No results found for: LDLCHOLESTER Lab Results Component Value Date TSH 1.44 04/24/2025 EF BP Date Value Ref Range Status 04/22/2025 87 55 - 100 % Final 04/21/25 TRANSTHORACIC ECHOCARDIOGRAM (TTE) COMPLETE (CONTRAST/BUBBLE/3D PRN) 04/22/2025 1:53 PM (Final) Interpretation Summary Left Ventricle: Left ventricle is smaller than normal. Basal septal thickening. Hyperdynamic left ventricular systolic function. EF by 2D Simpsons Biplane is 87%. Normal wall motion. Right Ventricle: Right ventricle size is normal. Normal systolic function. No significant valvular abnormalities. Signed by: Odalys Lennon MD on 04/22/2025 1:53 PM Other reports reviewed: Cardiac Tests: EC04/21/25 ECG 12-LEAD 04/23/2025 5:58 PM (Final) Impression Atrial fibrillation LAD, consider left anterior fascicular block Electronically Signed On 04-23-2025 17:58:46 EDT by Brandon Davidson Signed by: Barndon Davidson MD on 04/23/2025 5:58 PM Telemetry findings reviewed: Sinus rhythm 60s 70s EF BP Date Value Ref Range Status 04/22/2025 87 55 - 100 % Final DALTON Rice CNP Date Of Service 04/25/2025 [1] acetaminophen, 1,000 mg, Oral, TID aspirin, 81 mg, Oral, Daily enoxaparin, 30 mg, SubCUTAneous, q12h melatonin, 5 mg, Oral, Nightly mupirocin, , Nasal, BID phenytoin ER, 200 mg, Oral, BID polyethylene glycol (PEG) 3350, 17 g, Oral, Daily potassium phosphates 30 mmol in sodium chloride 0.9 % 250 mL IVPB, 30 mmol, IntraVENous, Once senna-docusate sodium, 2 tablet, Oral, BID sertraline, 200 mg, Oral, Daily thiamine, 100 mg, IntraVENous, Daily [2] Images from the original note were not included. Daily SICU Progress Note Resident 04/25/2025 6:22 AM Admit Date: 04/21/2025 HPI: : 84 y.o. female presents with L hip pain after fall from standing height on 04/21. She went to OR with orthopedic surgery on 04/21 for left intertrochanteric femur nailing with Dr. Meng. She was briefly hypotensive intraoperatively; but seemed to recover. However in PACU patient persistently hypotensive with systolic pressures in the 70s. No blood transfusions but did require some pushes of monica and epinephrine. Levophed started during evaluation. Patient pain level currently is well controlled. Denies any history of heart disease outside of HTN. PMH significant for HTN and seizures. She takes aspirin, dilantin, zoloft, lisinopril, and temazepam. PSH significant for hysterectomy and nailing PROCEDURES: 04/21: left intertrochanteric femur nailing INCIDENTAL FINDINGS: CXR: tortuosity and enlargement of thoracic aorta, possibly aneurysmal, increased in size compared to 2019 CHIEF COMPLAINT: L hip pain PREVIOUS 24 HOUR EVENTS: - remains off of levo - amio gtt finished Consults: IP CONSULT TO ORTHOPAEDIC SURGERY IP CONSULT TO WOUND PREVENTION IP CONSULT TO GERIATRICS IP CONSULT TO CARDIOLOGY MEDICATIONS: Current Medications[1] ARE THERE PERTINENT UPDATES TO PAST,FAMILY, OR SOCIAL HISTORY?: No Subjective: Patient resting comfortably in bed this morning. States that pain is well controlled. Denies any nausea, vomiting, fevers, chills. Patient states she had food yesterday without any associated issues. States she has not had a bowel movement prior to admission. Patient denies any headaches, lightheadedness, or dizziness. Review of Systems reviewed and negative unless otherwise mentioned above Objective: Patient Vitals for the past 24 hrs: BP Temp Temp src Pulse Resp SpO2 04/25/25 0400 135/66 36.3 C (97.3 F) Temporal 62 15 96 % 04/25/25 0200 135/91 -- -- 64 20 93 % 04/25/25 0100 128/68 -- -- 61 -- 96 % 04/25/25 0000 113/64 -- Temporal 61 16 93 % 04/24/25 2300 107/63 -- -- 61 16 95 % 04/24/25 2200 108/59 -- -- 62 18 94 % 04/24/25 2100 107/86 -- -- 64 17 93 % 04/24/25 2015 -- -- -- 63 19 -- 04/24/25 2000 107/67 36.6 C (97.8 F) Temporal 63 21 96 % 04/24/25 1945 -- -- -- 67 22 97 % 04/24/25 1930 -- -- -- 66 18 94 % 04/24/25 1915 -- -- -- 65 17 96 % 04/24/25 1900 127/69 -- -- 63 16 95 % 04/24/25 1800 117/84 -- -- 63 18 97 % 04/24/25 1700 114/63 -- -- 62 21 96 % 04/24/25 1600 107/67 -- -- 61 18 95 % 04/24/25 1500 90/64 -- -- 61 19 96 % 04/24/25 1400 107/54 -- -- 63 20 96 % 04/24/25 1300 105/59 -- -- 61 20 95 % 04/24/25 1200 134/75 -- -- 63 16 98 % 04/24/25 1100 129/92 -- -- 61 19 99 % 04/24/25 1000 157/82 -- -- 60 18 99 % 04/24/25 0900 124/67 -- -- 61 17 97 % 04/24/25 0830 117/75 -- -- 64 17 100 % 04/24/25 0815 145/71 -- -- 65 22 97 % 04/24/25 0800 114/70 36 C (96.8 F) Temporal 60 15 100 % 04/24/25 0700 134/81 -- -- 65 22 97 % Intake/Output Summary (Last 24 hours) at 04/25/2025 0622 Last data filed at 04/24/2025 1800 Gross per 24 hour Intake 2894 ml Output 1400 ml Net 1494 ml No intake/output data recorded. Last BM: prior to admission Diet: currently NPO CVP: No Chest Tubes: R: No L: No PHYSICAL: Physical Exam Constitutional: General: She is not in acute distress. Appearance: Normal appearance. She is not ill-appearing. HENT: Head: Normocephalic. Mouth/Throat: Mouth: Mucous membranes are moist. Cardiovascular: Rate and Rhythm: Normal rate. Pulses: Normal pulses. Pulmonary: Effort: Pulmonary effort is normal. No respiratory distress. Abdominal: General: Abdomen is flat. There is no distension. Palpations: Abdomen is soft. Tenderness: There is no abdominal tenderness. Musculoskeletal: Comments: Left lower extremity dressings c/d/I. Maryam wrap around left thigh. Sensation and motor function intact LLE. Skin: General: Skin is warm. Neurological: Mental Status: She is alert. Sutures or yeni? Yes, dressing overtop sites on left thigh O2: 93-97 on RA / / / Data Review Data CBC with Differential: Lab Results Component Value Date WBC 6.3 04/24/2025 RBC 2.53 (L) 04/24/2025 HGB 8.4 (L) 04/25/2025 HCT 24.1 (L) 04/25/2025 PLT 97 (L) 04/24/2025 CMP: Lab Results Component Value Date NA 132 (L) 04/25/2025 K 3.8 04/25/2025 CL 104 04/25/2025 CO2 24 04/25/2025 BUN 15 04/25/2025 CREATININE 0.48 (L) 04/25/2025 GLUCOSE 104 04/25/2025 CALCIUM 8.3 (L) 04/25/2025 BMP: Hepatic Function Panel:Ionized Calcium: No components found for: IONCA Magnesium: Lab Results Component Value Date MG 2.4 04/25/2025 Phosphorus: Lab Results Component Value Date PHOS 2.0 (L) 04/25/2025 PT/INR: No results found for: PROTIME, INR PTT: No results found for: APTT [APTT Last 3 Troponin: No results found for: TROPONINI Urine Culture: No components found for: CURINE Blood Culture: No components found for: CBLOOD, CFUNGUSBL Blood Culture from Central Line: No components found for: CBLOODLN Stool Culture: No components found for: CSTOOL Sputum Culture: No components found for: CSPUTUM Sputum Culture for AFB: No components found for: CAFBSM Wound Culture: n/a Radiology: ECG 12 lead Result Date: 04/21/2025 Sinus rhythm Left anterior fascicular block XR femur left 2+ views Result Date: 04/21/2025 Patient Name: MADAY ALFARO : 1940 [facility]#: [id number] Exam Date/Time: 04/21/2025 15:16 Procedure: XR FEMUR 2+ VW LEFT Ordering Provider: MOLINA TYLER Reason For Exam: post op EXAM: XR Left Femur, 2 Views CLINICAL INDICATION: post op TECHNIQUE: Frontal and lateral views of the left femur. COMPARISON: Left femur radiographs from 04/21/2025. Left hip radiographs from 04/21/2025. FINDINGS: BONES/JOINTS: Left femoral intramedullary ras with proximal and distal interlocking fixation screws. Hardware appears intact. Redemonstration of a left femoral intertrochanteric fracture. Improved alignment following fixation. Moderate left hip joint DJD. Left sacroiliac joint DJD. Degenerative change of the lower lumbar spine. Degenerative change of the pubic symphysis. Mild degenerative change of the medial and patellofemoral compartments of the knee. Tiny superior patellar enthesophyte. SOFT TISSUES: Expected postsurgical changes in the soft tissues. Several skin yeni. Intact left femoral fixation hardware. Report Dictated on Electronically Signed By: Lexus Rankin MD Electronically Signed Date/Time: 04/21/2025 3:37 PM EDT FL GUIDANCE OR USE ONLY - NON RESULTABLE Result Date: 04/21/2025 There is no interpretation needed for this exam. ECG 12 lead Sinus rhythm LAD, consider left anterior fascicular block Nonspecific T abnrm, anterolateral leads No change compared to previous ekg Electronically Signed On 04-21-2025 12:28:43 EDT by Elliott Navarro XR chest 1 view Result Date: 04/21/2025 Patient Name: MADAY ALFARO : 1940 Exam Date/Time: 04/21/2025 11:41 Procedure: XR CHEST 1 VIEW Ordering Provider: NAVARRO AUSTIN Reason For Exam: PRE-ANESTHESIA SEDATION HISTORY: preanesthesia Frontal view the chest shows tortuosity and enlargement of the thoracic aorta possible aneurysmal, increasing since 2019 chest x-ray with normal heart size with no infiltrates or pleural effusions. Report Dictated on Electronically Signed By: Jean Paul Payne MD Electronically Signed Date/Time: 04/21/2025 12:27 PM EDT XR femur left 2+ views Result Date: 04/21/2025 Patient Name: MADAY ALFARO : 1940 Exam Date/Time: 04/21/2025 11:41 Procedure: XR FEMUR 2+ VW LEFT Ordering Provider: NAVARRO AUSTIN Reason For Exam: evaluate the entire bone HISTORY: Left hip fracture Additional views of the left femur show no other fractures with changes of degenerative joint disease involving medial compartment of the knee. Report Dictated on Electronically Signed By: Jean Paul Payne MD Electronically Signed Date/Time: 04/21/2025 12:24 PM EDT XR hip left 2 or 3 views Result Date: 04/21/2025 Patient Name: MADAY ALFARO : 1940 Exam Date/Time: 04/21/2025 10:39 Procedure: XR HIP 2 OR 3 VW LEFT Ordering Provider: NAVARRO AUSTIN Reason For Exam: Hip trauma, fracture suspected, no prior imaging HISTORY: Trauma Frontal view the pelvis and views left hip shows COMMINUTED INTERTROCHANTERIC FRACTURE of the left hip with varus angulation. 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 Report Dictated on Electronically Signed By: Jean Paul Payne MD Electronically Signed Date/Time: 04/21/2025 10:52 AM EDT Problem List[2] ASSESSMENT: 84 yr old female s/p intertan nailing of the left intertrochanteric femur fracture, subsequent hypotension in the PACU PLAN: Neuro/Spine: - Pain control: tylenol, PRN oxy - Elevate HOB 30 degrees Seizures - Continue home dilantin BID - Will obtain Phenytoin levels: in process Anxiety/insomnia/depression - Continue home zoloft - prn temazepam nightly for sleep - Nightly melatonin - Delirium precautions Cardiovascular: Hypotension HTN - MAP > 65 - remains off of levo for last 24hours - Repeat EKG - Pre-op EKG reviewed-- LAD with anterior fascicular block however this is stable from previous - repeat EKG with similar findings of left anterior fascicular block - Troponin: downtrending, most recent 66 from peak of 101 - TTE ordered; 87% EF, no valvular abnormalities - Hold home HTN medications - Telemetry - Hold home lisinopril - resume home ASA - Orthostats positive - repeat orthostats today 04/25 Afib with RVR - amio gtt finished - Cardiology consult: afib likely 2/2 recent surgery, hypovolemia, blood loss - recommend aggressive rehydration, strict electrolyte replacement. Maintain K>4, Phos>3, Mg>2 - outpatient follow up and event monitor Pulmonary: - standard O2 protocol - IS FEN/GI: - On reg diet with supplemental ensures - Zofran PRN - Daily BMP, Mg, Phos - phos replaced today 04/25 - LA: cleared - Bowel regimen - miralax and senna - vitamin D level ordered by geriatrics: 7 : - No acute issues - hicks removed 04/22; patient continues to void without issue - Monitor I/Os - Goal UOP > 0.5 ml/kg/hr - q4 Is and Os Heme: - Hgb: 8.4 from 8.3 - s/p 2u pRBC 04/22 - q24 CBC, q24 HH - lovenox 30mg BID - HIT 4ts score on 04/23: 1 point, low probability of HIT - will continue to monitor platelets ID: -no acute issues - mupirocin BID x 5 days Endo: - no acute issues, glucose stable Lines/Devices: - PIV Prophylaxis: DVT: SCDs,lovenox 30 BID Has DVT PPX been started? Yes If no, why? 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 [employer] aspirin chewable tablet 81 mg, 81 mg, Oral, Daily, Jono Fernandez MD, 81 mg at 04/24/25920 enoxaparin (Lovenox) syringe 30 mg, 30 mg, SubCUTAneous, q12h, Jono Fernandez MD, 30 mg at 04/24/252237 melatonin tablet 5 mg, 5 mg, Oral, Nightly, Lisa Wayne MD, 5 mg at 04/24/252048 mupirocin (Bactroban) 2 % ointment, , Nasal, BID, Lisa Wayne MD, Given at 04/24/252048 naloxone (Narcan) injection 0.4 mg, 0.4 mg, IntraVENous, q5 min PRN, Miller Lee DO oxyCODONE (Roxicodone) immediate release tablet 5 mg, 5 mg, Oral, q4h PRN, 5 mg at 04/24/25 1727 OR oxyCODONE (Roxicodone) immediate release tablet 10 mg, 10 mg, Oral, q4h PRN, Lisa Wayne MD, 10 mg at 04/22/252053 perflutren protein A microsphere (Optison) 3 mL in sodium chloride (PF) 0.9 % 10 mL IV, 0-10 mL, IntraVENous, Once PRN, Lisa Wayne MD phenytoin ER (Dilantin) capsule 200 mg, 200 mg, Oral, BID, Lisa Wayne MD, 200 mg at 04/24/252049 polyethylene glycol (PEG) 3350 (Miralax) packet 17 g, 17 g, Oral, Daily, Lisa Wayne MD, 17 g at 04/24/25920 potassium phosphates 30 mmol in sodium chloride 0.9 % 250 mL IVPB, 30 mmol, IntraVENous, Once, Jono Fernandez MD senna-docusate sodium (Senokot-S) 8.6-50 MG tablet 2 tablet, 2 tablet, Oral, BID, Lisa Wayne MD, 2 tablet at 04/24/252048 sertraline (Zoloft) tablet 200 mg, 200 mg, Oral, Daily, Yeimy Glasgow MD, 200 mg at 04/24/25923 sodium chloride 0.9 % infusion, 250 mL/hr, IntraVENous, PRN, Lisa Wayne MD sodium chloride 0.9 % infusion, 250 mL/hr, IntraVENous, PRN, Jono Fernandez MD temazepam (Restoril) capsule 15 mg, 15 mg, Oral, Nightly PRN, Yeimy Glasgow MD, 15 mg at 04/22/252053 thiamine (Vitamin B1) injection 100 mg, 100 mg, IntraVENous, Daily, Migdalia Joseph MD, 100 mg at 04/24/25920 [2] Patient Active Problem List Diagnosis Chest pain Dilation of renal pelvis Closed displaced intertrochanteric fracture of left femur (HCC) Closed intertrochanteric fracture of hip, left, initial encounter ([facility]) Cosigned by Regina Sequeira MD at 04/25/2025 4:12 PM EDT Associated attestation - Regina Sequeira MD - 04/25/2025 4:12 PM EDT ~~~~~~~~~~~~~~~~~~~~~~~~~~~~~~~~~ ~~~~~~~~~~~~~~~~~~~~~~~~~~~~ ATTENDING ADDENDUM Problem List[1] I independently saw the above patient and reviewed the recent events, imaging, labs, vital signs; I performed a physical exam and ROS on the same date of service as above. My findings agree with the above note except for any details corrected below. A complete review of systems was obtained and is negative except as stated in HPI. HPI: 84 y.o. female presents with L hip pain after fall from standing height on 04/21. She went to OR with orthopedic surgery on 04/21 for left intertrochanteric femur nailing with Dr. Meng. She was briefly hypotensive intraoperatively; but seemed to recover. However in PACU patient persistently hypotensive with systolic pressures in the 70s. No blood transfusions but did require some pushes of monica and epinephrine. Levophed started during evaluation. Patient pain level currently is well controlled. Denies any history of heart disease outside of HTN. Imaging reviewed and independently interpreted: None Problem list: Acute, acute on chronic, unstable or uncontrolled chronic problems/diagnoses: Left intratrochanteric hip fracture with subtrochanteric extension Mechanical fall Acute blood loss anemia Thrombocytopenia 2/2 blood loss Lactic acidosis TANYA Stable chronic problems, affecting patient care: [Medical History] [Medical History] Past Medical History Diagnosis Date Hypertension Seizures (HCC) HTN and seizures. She takes aspirin, dilantin, zoloft, lisinopril, and temazepam. 24h: Acute blood loss anemia - hgb 8.4 - change to daily Thrombocytopenia - stable 97 Afib with RVR overnight -Likely precipitated by recent surgery, hypovolemia, blood loss (admission Hgb 14), and norepinephrine gtt. Currently in NSR. Monitor off amiodarone. Rehydrate. Follow-up on telemetry and patient status in the AM. Plan for outpatient event monitor. - appreciate cards recs Hyponatremia - stable 132 + orthostatics 04/24 -> recheck Vitamin D deficiency Hypophos - replete Plan: Neurological system #Seizures - dilantin 200 mg BID - check phenytoin level #anxiety/insomnia/depression - zoloft 200 mg - temazepam 15 mg nightly PRN #Acute pain - Multimodal pain control # At risk for delirium/acute encephalopathy - Delirium precautions: limit nighttime disturbances and avoid anticholinergic meds, benzos, etc Circulatory system HTN/HLD - lisinopril 20 mg - HOLD - MAP > 65 - PRN anti-htn med Hypotension - suspect multifactorial - resolved - resolved - ECHO EF 87% Afib with RVR overnight -Likely precipitated by recent surgery, hypovolemia, blood loss (admission Hgb 14), and norepinephrine gtt. Currently in NSR. Monitor off amiodarone. Rehydrate. Follow-up on telemetry and patient status in the AM. Plan for outpatient event monitor. - appreciate cards recs Respiratory system - O2 protocol - Aggressive pulmonary hygiene Gastrointestinal system #Reg diet Constipation - Bowel regimen Renal function - Strict I/Os Immunologic system [x] Mupirocin for empiric MRSA decolonization x5 days #opal-op ancef - complete - Monitor for fevers Hematologic system #Acute blood loss anemia - Monitor hemoglobin Endocrine system #Hyperglycemia 2/2 steroids - resolved - Monitor glucose Integumentary system (GI and cutaneous) - Skin checks Musculoskeletal system - PTOT - SNF Ppx - DVT prophylaxis: SCDs, lovenox MEDS: Scheduled PRN Scheduled Meds[2] PRN Meds[3] Continuous Continuous Meds[4] Patient evaluated on 04/25/2025 Level of Medical Decision Making: risk of morbidity from additional diagnostic testing or treatment [x]High []Moderate []Low Complexity: Acute or chronic illness posing a threat to life (HIGH) Personally Reviewed/Independently interpreted patient's: [x]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, []Nursing notes, []Case management/SW []Radiology studies: []CT, []CXR, []AXR, []Pelvic XR [x]Labs: [x]CBC, [x]BMP, []CMP/LFTs, []PT/INR []EKG []Ordering tests []Other Discussed/ With: [x]Patient/Family: []Spouse, []Son/Daughter, []Mother/Father, []Friend []RN [x]Consultants: []Ortho, []Geriatrics, []Palliative, []PRS, []Nephro, []NCC, []NSG, [x]Cards IP CONSULT TO ORTHOPAEDIC SURGERY IP CONSULT TO WOUND PREVENTION IP CONSULT TO GERIATRICS IP CONSULT TO CARDIOLOGY []SW/TCC []Other I spent total time of 51 minutes reviewing previous notes (cards, geriatrics, PTOT), test results, and face to face with Maday Alfaro discussing the diagnosis (see above) and importance of compliance with the treatment plan as well as documenting on the day of the visit. Time was spent, Reviewing medical record including recent tests and results Ordering prescription medications/tests and procedures Communicating results to the patient/family/caregiver Counseling/educating the patient/family/caregiver Documenting clinical information the patient's electronic record Coordination of care for the patient Performing a medical appropriate exam and evaluation ~~~~~~~~~~~~~~~~~~~~~~~~~~~~~~~~~ ~~~~~~~~~~~~~~~~~~~~~~~~~~~~ This note may have been dictated using [employer] Medical Practice Edition 2.6 and/or [employer] Voice Recognition Feature. The document was proofread; however, unrecognized voice recognition marble rubber errors may be present. [1] Patient Active Problem List Diagnosis Chest pain Dilation of renal pelvis Closed displaced intertrochanteric fracture of left femur ([facility]) Closed intertrochanteric fracture of hip, left, initial encounter ([facility]) [2] acetaminophen, 1,000 mg, Oral, TID aspirin, 81 mg, Oral, Daily enoxaparin, 30 mg, SubCUTAneous, q12h lactated ringers, 500 mL, IntraVENous, Once melatonin, 5 mg, Oral, Nightly mupirocin, , Nasal, BID phenytoin ER, 200 mg, Oral, BID polyethylene glycol (PEG) 3350, 17 g, Oral, Daily senna-docusate sodium, 2 tablet, Oral, BID sertraline, 200 mg, Oral, Daily thiamine, 100 mg, IntraVENous, Daily [3] PRN medications: naloxone, oxyCODONE OR oxyCODONE, perflutren protein A microsphere (Optison) 3 mL in sodium chloride (PF) 0.9 % 10 mL IV, sodium chloride, sodium chloride, temazepam [4] Images from the original note were not included. PHYSICAL THERAPY [facility] Treatment Note Name/MRN: Maday Alfaro ([id number]) Date of : 1940 Age: 84 y.o. Room/Bed: T2-216/T2216 A Discharge Recommendation: Alf Facility Other: tbd Assessment Pt is demonstrating improvements in functional strength. Pt max assist for supine to sit at EOB, pt able to assist more with leg movements during bed mobility. Pt experienced dizziness with transfer from supine to sit, BP changed from 107/54 to103/68 with the transfer. Pt able to perform 2 sit to stand transfers with max assist and standing a total of 2 mins with max assist, pt able to accept more weight through BLE while in standing. Pt able to take 4 lateral steps with max assist. Pt is a fall risk and not safe to return home, would recommend SNF at discharge. Subjective Pt appropriate for PT per RN. RN reports pt experiencing orthostatic hypotension. Pt lying in bed upon entry. Pt is agreeable to PT. Pain: Pt reports pain in RLE with movements. Medical Precautions: No active isolations Proper PPE donned/doffed in accordance with facility standards. Fall Risk: [place] Fall Risk Score: 60 (Low Risk) [place] Fall Risk Score: 60 (High Risk) Precautions/Restrictions: Left LE Weight Bearing: Weight Bearing As Tolerated Lines/Drains/Airways: tele, PIV Overall Cognitive Status: WNL Overall Orientation Status: Oriented x4 Family/Caregiver Present: none Objective Bed Mobility Supine to sit: Max Assist Transfers/Mobility Sit to stand: Max Assist Stand pivot: Max Assist Stand step: Max Assist Pt has better assistance with eugene bearing through legs during transfers. Device(s) used: Used therapist for support Ambulation Ambulation 1 Assistive device(s) used: Used therapist for support Assist level: Max Assist Distance (ft): 4 Quality of gait: shuffling, slow jw, instability through all phases Balance: Pt was mod assist for static and dynamic sitting balance. Pt was max assist for static and dynamic standing balance. Pt performed 10 reps of hip flexion extension AAROM in BLE while supine in bed to improve strength and prepare BLE for tranfers.. Pt has observably better strength with motion, able to assist through more of the ROM. Pt sat at EOB for 8 mins with mod assist. Pt reports feeling dizzy and is verbally cued to take deep breaths, BP did not drop significantly. Pt cued to move BUE laterally to assist with postural control. Pt has noticeably better postural control require less manual assistance. Pt performed sit to stand from EOB with max assist. Pt cued to scoot self forward so feet are flat on ground. Pt requires mod assist to scoot forward. Pt cued to adjust foot placement before transfer. Pt able to assist more with BLE strength during sit to stand. Pt performed sit to stand from recliner with max assist. Pt requires mod assist to scoot forward. Pt cued to adjust foot placement before transfer. Pt able to assist more with BLE strength during sit to stand. Pt able to stand for 1 min for 2 sets. Pt verbally cued to breath deeply in standing. Pt reports feeling weak but denies dizziness. Pt leans away from LLE, pt cued to keep head up and shift hip forward for better posture. Plan Continue acute PT per plan of care. Safety/Education Safety Safety Devices in place: call light within reach, left in chair, chair alarm in place, gait belt, and nurse notified Restraints: No Education Education Given To: patient Education Provided: PT Role and PT Goals Education Method: Verbal Barriers to Learning: None Education Outcome: Verbalized Understanding Outcome Measures AM-PAC AM-PAC Inpatient Mobility Raw Score (No Stairs) : 11 JH-HLM -HLM Scale: Static standing (1 or more minutes) Goals Patient Stated Goal: To improve functional status. Encounter Problems Encounter Problems (Active) Balance Patient will maintain static standing balance for 3 minutes with min assist in order to demonstrate decreased risk of falling. (Progressing) Start: 04/22/25 Expected End: 05/20/25 Patient will maintain static sitting balance for 3 minutes with min assist in order to demonstrate improved postural control and prepare for out of bed mobility. (Progressing) Start: 04/22/25 Expected End: 05/20/25 Mobility Patient will ambulate 150 feet with SBA and least restrictive device in order to improve safety and independence with mobility. (Progressing) Start: 04/22/25 Expected End: 05/20/25 Patient will ascend and descend 3 stairs with one hand hold and min assist in order to safely negotiate home. (Progressing) Start: 04/22/25 Expected End: 05/20/25 Transfers Patient will perform bed mobility with independence in order to improve independence and prepare for out of bed mobility. (Progressing) Start: 04/22/25 Expected End: 05/20/25 Patient will complete functional transfer with least restrictive device with independence in order to prepare for ambulation. (Progressing) Start: 04/22/25 Expected End: 05/20/25 Therapy Time Individual Co-treatment Time In 1405 Time Out 1431 Minutes 26 Timed Code Treatment Minutes: 26 Minutes 2x functional activity Gary Hammonds SPT Cosigned by Maryam Muro PT at 04/24/2025 3:28 PM EDT [facility] Inpatient Consult Service Admission Date: 04/21/2025 Assessment Principal Problem: Closed intertrochanteric fracture of hip, left, initial encounter (HCC) Plan Fall -Multiple risk factors including deconditioning, seizures, possible medication effect -Continue PT/OT as able while inpatient -Vitamin D ordered for tomorrow AM -Check orthostatic vital signs as able -> negative on 04/23. -Medications with associated fall risk include: Temazepam - benzos increase fall risk and risk of confusion. At risk for withdrawal without it. As outpatient, consider attempting gradual dose reduction and switching to alternate/safer regimen (melatonin vs low dose trazodone) Dilantin - await levels - can cause ataxia Sertraline - SSRI/SNRI's have been associated with increased fall risk. Continue to evaluate risks vs benefits and consider attempting dose reduction as outpatient Acute pain due to trauma L hip fracture --Recommend scheduled acetaminophen 1g TID with PRN oxycodone (consider decreasing to 2.5-5mg) PRN for breakthrough. Will change timing of acetaminophen to avoid nighttime waking. Lab Results Component Value Date ALT 17 04/21/2025 AST 24 04/21/2025 ALKPHOS 212 (H) 04/21/2025 BILITOT 0.8 04/21/2025 -Optimize nonpharmacologic pain treatment modalities. -continue scheduled bowel regimen while on narcotics Constipation - acute on chronic --Continue scheduled bowel regimen, await effect. Good bowel sounds today. Seizure disorder --Pt reported seizures at home every few months --Await Dilantin levels --Would benefit from outpatient establishing with neurology. --No driving. At risk for delirium --Risk factors: surgery, trauma, pain, advanced age, and high risk medications --Encourage PO intake, time up in chair, family visits, supervised ambulation, and sleep hygiene --If agitated, assess for and consider treating for pain --QTc= 489 --No antipsychotic unless patient is danger to self/others/treatment --Monitor for constipation/urinary retention - last BM unknown --Possible medication contributions: Temazepam - lowers delirium threshold but at risk for withdrawal without it Declining functional status --Related to acute injuries, deconditioning --Continue PT/OT as able while inpatient --Anticipate d/c to SNF for ongoing daily PT/OT, pt agreeable. Follow-up: 1-2 days Subjective Chief Complaint: fall Geriatrics consulted for Trauma due to fall HPI- The patient is new to me but seen by the Geriatric Inpatient Consult team. 84 y.o. year-old female admitted to acute care from home for fall, reportedly found down after 4 hrs, lost balance walking in kitchen. Diagnosed with L femur fracture. Underwent surgical correction 04/21. Per initial geriatrics consult, lives at home alone. No baseline concerns about cognition or mood. Takes temazepam nightly for sleep. Uses a walker at baseline, has had multiple falls at home, all attributed to balance. Interval History: Remains on ICU. Started on amiodarone drip yesterday. Levophed stopped this AM. No recent PRN use - did not get temazepam last night. Na 131 this AM. Hgb 8.8. 04/23: Seen by PT. Max assist. Ambulated 3ft. Recommending short term SNF for rehab. Review of Systems Gastrointestinal: Positive for constipation. Musculoskeletal: Positive for arthralgias (improving). Neurological: Negative for dizziness and light-headedness. Psychiatric/Behavioral: Negative for confusion and sleep disturbance. Objective BP 124/67 Pulse 61 Temp 36 C (96.8 F) (Temporal) Resp 17 Ht 5' 6 (1.676 m) Wt 136 lb (61.7 kg) SpO2 97% BMI 21.95 kg/m Intake/Output Summary (Last 24 hours) at 04/24/2025 0946 Last data filed at 04/24/2025 0700 Gross per 24 hour Intake -- Output 1800 ml Net -1800 ml Wt Readings from Last 3 Encounters: 04/22/25 136 lb (61.7 kg) 08/29/24 136 lb (61.7 kg) 07/18/24 136 lb (61.7 kg) Current Medications[1] Physical Exam Constitutional: No acute distress, well-nourished, well kempt Psych: Mood and affect Appropriate. Good eye contact. Cardiovascular: Regular rate and rhythm, no murmur Pulmonary/Chest: Clear to auscultation bilaterally, normal respiratory effort, no coughing noted Abdominal: Soft, not distended, no tenderness to palpation, BS hyperactive, Neurological: alert, attentive, speech is clear and appropriate , oriented x month, year, place, city, and self, follows commands, no tremor Musculoskeletal: No LLE edema, + RLE edema. Gait: assessment deferred Skin: warm and dry, no visible rashes or wounds Labs and Imaging: Recent Results (from the past 24 hours) CBC Collection Time: 04/23/25 12:04 PM Result Value Ref Range Auto WBC 8.7 3.6 - 10.7 10*3/uL RBC 2.66 (L) 3.80 - 5.20 10*6/uL Hemoglobin 8.8 (L) 11.7 - 16.0 g/dL Hematocrit 25.3 (L) 35.0 - 47.0 % MCV 95.1 77.0 - 99.0 fL MCH 33.1 26.0 - 34.0 pg MCHC 34.8 30.5 - 36.0 % RDW 14.5 11.5 - 15.0 % Platelets 93 (L) 140 - 440 10*3/uL MPV 10.5 9.0 - 12.7 fL IPF 4 ECG 12 lead Collection Time: 04/23/25 5:33 PM Result Value Ref Range Heart Rate 104 bpm QRSD Interval 94 ms QT Interval 371 ms QTC Interval 489 ms P Lott 0 degrees QRS Lott -69 degrees T Wave Lott 54 degrees WA Interval 0 ms CBC Collection Time: 04/23/25 6:05 PM Result Value Ref Range Auto WBC 6.6 3.6 - 10.7 10*3/uL RBC 2.67 (L) 3.80 - 5.20 10*6/uL Hemoglobin 8.8 (L) 11.7 - 16.0 g/dL Hematocrit 25.5 (L) 35.0 - 47.0 % MCV 95.5 77.0 - 99.0 fL MCH 33.0 26.0 - 34.0 pg MCHC 34.5 30.5 - 36.0 % RDW 14.3 11.5 - 15.0 % Platelets 84 (L) 140 - 440 10*3/uL MPV 10.7 9.0 - 12.7 fL IPF 4 CBC Collection Time: 04/23/25 10:04 PM Result Value Ref Range Auto WBC 7.5 3.6 - 10.7 10*3/uL RBC 2.54 (L) 3.80 - 5.20 10*6/uL Hemoglobin 8.5 (L) 11.7 - 16.0 g/dL Hematocrit 24.0 (L) 35.0 - 47.0 % MCV 94.5 77.0 - 99.0 fL MCH 33.5 26.0 - 34.0 pg MCHC 35.4 30.5 - 36.0 % RDW 14.4 11.5 - 15.0 % Platelets 98 (L) 140 - 440 10*3/uL MPV 10.7 9.0 - 12.7 fL IPF 4 Basic metabolic panel Collection Time: 04/23/25 10:07 PM Result Value Ref Range SODIUM 131 (L) 136 - 145 mmol/L POTASSIUM 3.7 3.5 - 5.1 mmol/L CHLORIDE 105 98 - 107 mmol/L CARBON DIOXIDE 20 (L) 23 - 31 mmol/L UREA NITROGEN 15 9 - 23 mg/dL CREATININE 0.52 (L) 0.57 - 1.11 mg/dL GLUCOSE 151 (H) 82 - 115 mg/dL CALCIUM 7.9 (L) 8.8 - 10.0 mg/dL ANION GAP 6 3 - 13 mmol/L eGFR >90.0 >60.0 mL/min/1.73m*2 Magnesium Collection Time: 04/23/25 10:07 PM Result Value Ref Range MAGNESIUM 1.9 1.6 - 2.6 mg/dL Phosphorus Collection Time: 04/23/25 10:07 PM Result Value Ref Range PHOSPHORUS 1.8 (L) 2.3 - 4.7 mg/dL Calcium, ionized Collection Time: 04/24/25 1:08 AM Result Value Ref Range Calcium, Ion 4.30 4.30 - 5.20 mg/dL PH, IONIZED CALCIUM 7.48 (H) 7.31 - 7.46 Basic metabolic panel Collection Time: 04/24/25 4:47 AM Result Value Ref Range SODIUM 131 (L) 136 - 145 mmol/L POTASSIUM 3.6 3.5 - 5.1 mmol/L CHLORIDE 104 98 - 107 mmol/L CARBON DIOXIDE 23 23 - 31 mmol/L UREA NITROGEN 15 9 - 23 mg/dL CREATININE 0.51 (L) 0.57 - 1.11 mg/dL GLUCOSE 110 82 - 115 mg/dL CALCIUM 8.2 (L) 8.8 - 10.0 mg/dL ANION GAP 4 3 - 13 mmol/L eGFR >90.0 >60.0 mL/min/1.73m*2 CBC Collection Time: 04/24/25 4:47 AM Result Value Ref Range Auto WBC 6.0 3.6 - 10.7 10*3/uL RBC 2.65 (L) 3.80 - 5.20 10*6/uL Hemoglobin 8.8 (L) 11.7 - 16.0 g/dL Hematocrit 25.3 (L) 35.0 - 47.0 % MCV 95.5 77.0 - 99.0 fL MCH 33.2 26.0 - 34.0 pg MCHC 34.8 30.5 - 36.0 % RDW 14.4 11.5 - 15.0 % Platelets 87 (L) 140 - 440 10*3/uL MPV 10.5 9.0 - 12.7 fL IPF 5 No results found for: TSH No results found for: [id number] No results found for: VITD25 Reviewed: allergies, previous encounters, social history, imaging, active problem lists, medications, and labs [1] Current Facility-Administered Medications: acetaminophen (Tylenol) tablet 1,000 mg, 1,000 mg, Oral, q8h, Lisa Wayne MD, 1,000 mg at 04/24/256 [COMPLETED] amiodarone (Nexterone) 150 mg/100 mL (premix), 150 mg, IntraVENous, Once, Stopped at 04/23/256 FOLLOWED BY [] amiodarone (Nexterone) 360 mg/200 mL (premix), 1 mg/min, IntraVENous, Continuous, Stopped at 04/24/255 FOLLOWED BY amiodarone (Nexterone) 360 mg/200 mL (premix), 0.5 mg/min, IntraVENous, Continuous, Migdalia Joseph MD, Last Rate: 16.67 mL/hr at 04/24/25 0730, 0.5 mg/min at 04/24/25 0730 aspirin chewable tablet 81 mg, 81 mg, Oral, Daily, Jono Fernandez MD, 81 mg at 04/24/25920 enoxaparin (Lovenox) syringe 30 mg, 30 mg, SubCUTAneous, q12h, Jono Fernandez MD, 30 mg at 04/24/25945 melatonin tablet 5 mg, 5 mg, Oral, Nightly, Lisa Wayne MD, 5 mg at 04/23/252007 mupirocin (Bactroban) 2 % ointment, , Nasal, BID, Lisa Wayne MD, Given at 04/24/25921 naloxone (Narcan) injection 0.4 mg, 0.4 mg, IntraVENous, q5 min PRN, Miller Lee DO norepinephrine (Levophed) 4 mg in 0.9% sodium chloride 250 mL infusion ([id number]-[id number]-Pyxeb) (premix), 2-50 mcg/min, IntraVENous, Continuous, Migdalia Joseph MD, Stopped at 04/24/254 oxyCODONE (Roxicodone) immediate release tablet 5 mg, 5 mg, Oral, q4h PRN, 5 mg at 04/22/2541 OR oxyCODONE (Roxicodone) immediate release tablet 10 mg, 10 mg, Oral, q4h PRN, Lisa Wayne MD, 10 mg at 04/22/252053 perflutren protein A microsphere (Optison) 3 mL in sodium chloride (PF) 0.9 % 10 mL IV, 0-10 mL, IntraVENous, Once PRN, Lisa Wyane MD phenytoin ER (Dilantin) capsule 200 mg, 200 mg, Oral, BID, Lisa Wayne MD, 200 mg at 04/24/25923 polyethylene glycol (PEG) 3350 (Miralax) packet 17 g, 17 g, Oral, Daily, Lisa Wayne MD, 17 g at 04/24/25920 potassium phosphates 40 mmol in sodium chloride 0.9 % 500 mL IVPB, 40 mmol, IntraVENous, Once, Migdalia Joseph MD, Last Rate: 83.3 mL/hr at 04/24/25434, 40 mmol at 04/24/25434 senna-docusate sodium (Senokot-S) 8.6-50 MG tablet 2 tablet, 2 tablet, Oral, BID, Lisa Wayne MD, 2 tablet at 04/24/25920 sertraline (Zoloft) tablet 200 mg, 200 mg, Oral, Daily, Yeimy Glasgow MD, 200 mg at 04/24/25923 sodium chloride 0.9 % infusion, 250 mL/hr, IntraVENous, PRN, Lisa Wayne MD sodium chloride 0.9 % infusion, 250 mL/hr, IntraVENous, PRN, Jono Fernandez MD temazepam (Restoril) capsule 15 mg, 15 mg, Oral, Nightly PRN, Yeimy Glasgow MD, 15 mg at 04/22/252053 thiamine (Vitamin B1) injection 100 mg, 100 mg, IntraVENous, Daily, Migdalia Joseph MD, 100 mg at 04/24/25920 Spiritual Care Note [facility] Palliative Care Patient Name:Maday Alfaro Chief Complaint: Chief Complaint Patient presents with Hip Pain Hip pain post fall. Pt was down for about four hours. Pt has c/o left hip and leg pain . Shortening and rotation noted . Reason for visit: [employer] [facility] Provided To:patient Background and visit note: Patient is [employer] and received the Anointing of the Sick and prayer by FR Hodges, today Is there spiritual distress? YES Julius Castillo 04/24/25 Images from the original note were not included. OCCUPATIONAL THERAPY [facility] Initial Evaluation Name/MRN: Maday Alfaro ([id number]) Evaluation Date: 04/24/2025 Date of : 1940 Admission Date: 04/21/2025 9:46 AM Age: 84 y.o. Room/Bed: T2-216/T2-216 A Discharge Recommendation: Alf Facility Assessment IMPRESSION: Patient is a 84-year-old female hospitalized s/p mechanical fall with L intertrochanteric fracture s/p CMN on 04/21 . Patient is functionally independent with self-care tasks and functional mobility at baseline. Patient is limited by the deficits listed below. Patient is Min Assist for UB ADLs, Max Assist LB ADLs and Max Assist toileting. Patient is Max Assist bed mobility. Recommending SNF upon discharge. Admitting Diagnosis: closed intertrochanteric fracture of L hip Performance Deficits /Impairments: Increased Pain, Decreased Functional Mobility, Decreased ADL status, Decreased Strength, Decreased Safety Awareness, Decreased Endurance, Decreased Balance, Decreased ROM, and Decreased High Level IADLs Prognosis: Fair Decision Making: Medium Complexity Subjective Patient is supine in bed; patient agreeable to therapy evaluation. RN ok'd for participation. Pain: Pt denies any current pain. Past Medical History: Medical History[1] Past Surgical History: Surgical History[2] Admission Diagnosis: Patient Active Problem List Diagnosis Date Noted Closed intertrochanteric fracture of hip, left, initial encounter ([facility]) 04/21/2025 Closed displaced intertrochanteric fracture of left femur (HCC) 04/21/2025 Dilation of renal pelvis 01/04/2019 Chest pain 08/05/2018 Medical Precautions: No active isolations Proper PPE donned/doffed in accordance with facility standards. Fall Risk: [place] Fall Risk Score: 60 (Low Risk) [place] Fall Risk Score: 60 (High Risk) Precautions/Restrictions: Left LE Weight Bearing: Weight Bearing As Tolerated Lines/Drains/Airways: PIV Family/Caregiver Present: none Overall Cognitive Status: WNL Overall Orientation Status: Oriented x4 Social/Functional History Patient admitted from home. Lives With: Alone Type of Home: apartment Home Layout: Single Level Home Home Access: Stairs to Enter with Rails (# of stairs: 3) Bathroom Shower/Tub: Walk in Shower, shower chair Toilet: Grab Bars, elevated toilet seat Home Equipment: front wheeled walker, 4 wheeled walker, and cane Homemaking Responsibilities: Independent Receives Help From: Family Active Tube Handler: Pt reports she has not driven in several months. Prior Level of Function Prior Level of ADL Function: Independent Prior Level of Mobility: Independent; Device: Front wheeled walker Prior Level of Transfers: Independent Objective ADLs LE Dressing: Max Assist-sock managment Upper Extremity Assessment AROM: WFL PROM: Not assessed this session Strength: WFL Bed Mobility Supine to sit: Max Assist Sit to supine: Max Assist Scooting: Max Assist, x2 Person Assist HOB elevated; use of bed rail. Patient with FAIR- sitting balance. Patient with lightheadedness but resolved with time. Upon starting to take blood pressure, patient reports worsening dizziness; patient orthostatic at this time. Transfers/Mobility NT- deferred standing due to hypotension- anticipate max A based off sitting balance Device(s) used: None AM-PAC AM-PAC Inpatient Daily Activity Raw Score: 12 ADL Inpatient CMS G-Code Modifier: CL Plan Pt would benefit from skilled acute OT services to address Strengthening, ROM, Gait Training, Balance Training, Self-Care/ADL Training, Functional Mobility Training, Endurance Training, Safety Education and Training, and Pain Management. Frequency: 4x/weekfor 4 weeks Barriers: Pain, Impaired balance, Lower extremity weakness, Limited safety awareness, and Decreased endurance Safety/Education Safety Safety Devices in place: All fall risk precautions in place, call light within reach, left in bed, and nurse notified Restraints: No Education Education Given To: patient Education Provided: OT Role, Plan of Care, Precautions, and Discharge Recommendations Education Method: Verbal Barriers to Learning: None Education Outcome: Continued Education Needed Goals Patient Stated Goal: for BP to get better Encounter Problems Encounter Problems (Active) Balance Patient will maintain dynamic standing balance for 3-5 minutes with min assist in order to demonstrate decreased risk of falling. Start: 04/24/25 Expected End: 05/22/25 Bathing Patient will utilize adaptive techniques to bathe body min A. Start: 04/24/25 Expected End: 05/22/25 Dressing Upper Extremities Patient will complete upper body dressing ID. Start: 04/24/25 Expected End: 05/22/25 Dressings Lower Extremities Patient will dress lower body min A. Start: 04/24/25 Expected End: 05/22/25 Toileting Patient will complete toileting tasks at standard toilet with min assist. Start: 04/24/25 Expected End: 05/22/25 Therapy Time Individual Co-Treatment Co-Evaluation Time In 08 Time Out 0842 Minutes 24 Timed Code Treatment Minutes: 10 Minutes (FA- 1) Katia Shafer OT Patient's Occupational Therapy Plan of Care supervision is transferred to a [facility] Occupational Therapist. Goals and/or treatment plan was established in collaboration with patient/family/other representatives. [1] Past Medical History: Diagnosis Date Hypertension Seizures (HCC) [2] Past Surgical History: Procedure Laterality Date EYE SURGERY HYSTERECTOMY Images from the original note were not included. Daily SICU Progress Note Resident 04/24/2025 6:36 AM Admit Date: 04/21/2025 HPI: : 84 y.o. female presents with L hip pain after fall from standing height on 04/21. She went to OR with orthopedic surgery on 04/21 for left intertrochanteric femur nailing with Dr. Meng. She was briefly hypotensive intraoperatively; but seemed to recover. However in PACU patient persistently hypotensive with systolic pressures in the 70s. No blood transfusions but did require some pushes of monica and epinephrine. Levophed started during evaluation. Patient pain level currently is well controlled. Denies any history of heart disease outside of HTN. PMH significant for HTN and seizures. She takes aspirin, dilantin, zoloft, lisinopril, and temazepam. PSH significant for hysterectomy and nailing PROCEDURES: 04/21: left intertrochanteric femur nailing INCIDENTAL FINDINGS: CXR: tortuosity and enlargement of thoracic aorta, possibly aneurysmal, increased in size compared to 2019 CHIEF COMPLAINT: L hip pain PREVIOUS 24 HOUR EVENTS: - afib with RVR overnight, started on amio gtt - off of levo this AM Consults: IP CONSULT TO ORTHOPAEDIC SURGERY IP CONSULT TO WOUND PREVENTION IP CONSULT TO GERIATRICS MEDICATIONS: Current Medications[1] ARE THERE PERTINENT UPDATES TO PAST,FAMILY, OR SOCIAL HISTORY?: No Subjective: Patient resting comfortably in bed this morning. States that pain is well controlled. Denies any nausea, vomiting, fevers, chills. Patient states she had food yesterday without any associated issues. States she needs to have a bowel movement this morning, requests that I find the nurse. Patient denies any headaches, lightheadedness, or dizziness. Review of Systems reviewed and negative unless otherwise mentioned above Objective: Patient Vitals for the past 24 hrs: BP Temp Temp src Pulse Resp SpO2 04/24/25 0600 111/57 -- -- 63 19 97 % 04/24/25 0500 (!) 134/117 -- -- 61 17 100 % 04/24/25 0435 -- -- -- 61 19 98 % 04/24/25 0400 111/59 36.5 C (97.7 F) Temporal 61 17 97 % 04/24/25 0300 109/63 -- -- 58 18 97 % 04/24/25 0200 94/54 -- -- 61 21 99 % 04/24/25 0130 113/53 -- -- 60 17 99 % 04/24/25 0115 94/52 -- -- 58 17 97 % 04/24/25 0100 101/69 -- -- 59 21 97 % 04/24/25 0045 112/63 -- -- 60 13 95 % 04/24/25 0030 116/63 -- -- 58 15 97 % 04/24/25 0015 115/58 -- -- 60 16 100 % 04/24/25 0013 (!) 74/43 -- -- -- -- -- 04/24/25 0000 112/63 36.3 C (97.3 F) Temporal 63 19 98 % 04/23/25 2345 (!) 79/55 -- -- 61 17 97 % 04/23/25 2330 92/51 -- -- 63 19 98 % 04/23/25 2315 94/61 -- -- 66 15 98 % 04/23/25 2300 107/55 -- -- 64 14 96 % 04/23/25 2245 109/79 -- -- 84 17 99 % 04/23/25 2230 101/78 -- -- 87 16 98 % 04/23/25 2215 95/60 -- -- 95 20 98 % 04/23/25 2200 97/67 -- -- 111 21 97 % 04/23/25 214 (!) 82/50 -- -- 105 21 95 % 04/23/250 (!) 71/58 -- -- (!) 129 21 97 % 04/23/252114 (!) 92/44 -- -- 98 16 98 % 04/23/252099 (!) 78/53 -- -- 99 19 95 % 04/23/252044 (!) 81/52 -- -- 101 21 -- 04/23/252029 (!) 87/62 -- -- (!) 123 18 -- 04/23/252014 (!) 85/66 -- -- 115 23 -- 04/23/252007 -- -- -- 105 17 94 % 04/23/251999 (!) 89/66 36.3 C (97.3 F) Temporal 108 22 95 % 04/23/25 1945 (!) 83/59 -- -- 95 22 -- 04/23/25 1930 (!) 85/60 -- -- 100 17 -- 04/23/25 1900 (!) 86/61 -- -- 96 21 95 % 04/23/25 1800 (!) 89/59 -- -- 96 19 93 % 04/23/25 1700 126/57 -- -- 69 14 96 % 04/23/25 1600 114/63 36.3 C (97.4 F) Temporal 70 23 95 % 04/23/25 1500 127/55 -- -- 70 23 97 % 04/23/25 1400 122/65 -- -- 71 24 97 % 04/23/25 1345 104/67 -- -- 71 20 96 % 04/23/25 1330 98/67 -- -- 74 20 98 % 04/23/25 1315 99/66 -- -- 74 19 96 % 04/23/25 1300 143/59 -- -- 73 19 96 % 04/23/25 1245 116/60 -- -- 73 20 95 % 04/23/25 1230 115/61 -- -- 75 17 96 % 04/23/25 1215 114/67 -- -- 79 19 96 % 04/23/25 1200 106/64 36.3 C (97.4 F) Temporal 73 17 96 % 04/23/25 1145 105/64 -- -- 75 20 96 % 04/23/25 1130 114/90 -- -- 76 15 97 % 04/23/25 1115 99/64 -- -- 74 17 95 % 04/23/25 1100 104/89 -- -- 72 16 95 % 04/23/25 1045 116/66 -- -- 71 18 96 % 04/23/25 1030 121/72 -- -- 70 20 96 % 04/23/25 1015 125/63 -- -- 68 20 97 % 04/23/25 1000 121/70 -- -- 72 20 97 % 04/23/25 0945 134/78 -- -- 69 16 97 % 04/23/25 0930 117/71 -- -- 70 21 95 % 04/23/25 0915 115/60 -- -- 75 18 94 % 04/23/25 0900 100/62 -- -- 78 22 94 % 04/23/25 0845 91/53 -- -- 77 23 93 % 04/23/25 0830 102/58 -- -- 75 19 94 % 04/23/25 0815 102/55 -- -- 75 19 94 % 04/23/25 0800 107/72 36.1 C (96.9 F) Temporal 74 (!) 29 94 % 04/23/25 0745 126/56 -- -- 66 17 95 % 04/23/25 0730 130/52 -- -- 72 18 96 % 04/23/25 0715 129/60 -- -- 72 17 95 % 04/23/25 0700 125/60 -- -- 70 18 96 % 04/23/25 0645 112/94 -- -- 74 22 94 % Intake/Output Summary (Last 24 hours) at 04/24/2025 0636 Last data filed at 04/23/20251999 Gross per 24 hour Intake -- Output 1300 ml Net -1300 ml I/O this shift: In: - Out: 500 [Urine:500] Last BM: prior to admission Diet: currently NPO CVP: No Chest Tubes: R: No L: No PHYSICAL: Physical Exam Constitutional: General: She is not in acute distress. Appearance: Normal appearance. She is not ill-appearing. HENT: Head: Normocephalic. Mouth/Throat: Mouth: Mucous membranes are moist. Cardiovascular: Rate and Rhythm: Normal rate. Pulses: Normal pulses. Pulmonary: Effort: Pulmonary effort is normal. No respiratory distress. Abdominal: General: Abdomen is flat. There is no distension. Palpations: Abdomen is soft. Tenderness: There is no abdominal tenderness. Musculoskeletal: Comments: Left lower extremity dressings c/d/I. Maryam wrap around left thigh. Sensation and motor function intact LLE. Skin: General: Skin is warm. Neurological: Mental Status: She is alert. Sutures or yeni? Yes, dressing overtop sites on left thigh O2: 93-100 on RA / / / Data Review Data CBC with Differential: Lab Results Component Value Date WBC 6.0 04/24/2025 RBC 2.65 (L) 04/24/2025 HGB 8.8 (L) 04/24/2025 HCT 25.3 (L) 04/24/2025 PLT 87 (L) 04/24/2025 CMP: Lab Results Component Value Date NA 131 (L) 04/24/2025 K 3.6 04/24/2025 CL 104 04/24/2025 CO2 23 04/24/2025 BUN 15 04/24/2025 CREATININE 0.51 (L) 04/24/2025 GLUCOSE 110 04/24/2025 PROT 7.5 04/21/2025 CALCIUM 8.2 (L) 04/24/2025 BILITOT 0.8 04/21/2025 ALKPHOS 212 (H) 04/21/2025 AST 24 04/21/2025 ALT 17 04/21/2025 BMP: Hepatic Function Panel:Ionized Calcium: No components found for: IONCA Magnesium: Lab Results Component Value Date MG 1.9 04/23/2025 Phosphorus: Lab Results Component Value Date PHOS 1.8 (L) 04/23/2025 PT/INR: Lab Results Component Value Date PROTIME 11.3 04/21/2025 INR 1.1 04/21/2025 PTT: Lab Results Component Value Date APTT 27.9 04/21/2025 [APTT Last 3 Troponin: No results found for: TROPONINI Urine Culture: No components found for: CURINE Blood Culture: No components found for: CBLOOD, CFUNGUSBL Blood Culture from Central Line: No components found for: CBLOODLN Stool Culture: No components found for: CSTOOL Sputum Culture: No components found for: CSPUTUM Sputum Culture for AFB: No components found for: CAFBSM Wound Culture: n/a Radiology: ECG 12 lead Result Date: 04/21/2025 Sinus rhythm Left anterior fascicular block XR femur left 2+ views Result Date: 04/21/2025 Patient Name: MADAY ALFARO : 1940 [facility]#: [id number] Exam Date/Time: 04/21/2025 15:16 Procedure: XR FEMUR 2+ VW LEFT Ordering Provider: MOLINA TYLER Reason For Exam: post op EXAM: XR Left Femur, 2 Views CLINICAL INDICATION: post op TECHNIQUE: Frontal and lateral views of the left femur. COMPARISON: Left femur radiographs from 04/21/2025. Left hip radiographs from 04/21/2025. FINDINGS: BONES/JOINTS: Left femoral intramedullary ras with proximal and distal interlocking fixation screws. Hardware appears intact. Redemonstration of a left femoral intertrochanteric fracture. Improved alignment following fixation. Moderate left hip joint DJD. Left sacroiliac joint DJD. Degenerative change of the lower lumbar spine. Degenerative change of the pubic symphysis. Mild degenerative change of the medial and patellofemoral compartments of the knee. Tiny superior patellar enthesophyte. SOFT TISSUES: Expected postsurgical changes in the soft tissues. Several skin yeni. Intact left femoral fixation hardware. Report Dictated on Electronically Signed By: Lexus Rankin MD Electronically Signed Date/Time: 04/21/2025 3:37 PM EDT FL GUIDANCE OR USE ONLY - NON RESULTABLE Result Date: 04/21/2025 There is no interpretation needed for this exam. ECG 12 lead Sinus rhythm LAD, consider left anterior fascicular block Nonspecific T abnrm, anterolateral leads No change compared to previous ekg Electronically Signed On 04-21-2025 12:28:43 EDT by Elliott Navarro XR chest 1 view Result Date: 04/21/2025 Patient Name: MADAY ALFARO : 1940 Exam Date/Time: 04/21/2025 11:41 Procedure: XR CHEST 1 VIEW Ordering Provider: NAVARRO AUSTIN Reason For Exam: PRE-ANESTHESIA SEDATION HISTORY: preanesthesia Frontal view the chest shows tortuosity and enlargement of the thoracic aorta possible aneurysmal, increasing since 2019 chest x-ray with normal heart size with no infiltrates or pleural effusions. Report Dictated on Electronically Signed By: Jean Paul Payne MD Electronically Signed Date/Time: 04/21/2025 12:27 PM EDT XR femur left 2+ views Result Date: 04/21/2025 Patient Name: MADAY ALFARO : 1940 Exam Date/Time: 04/21/2025 11:41 Procedure: XR FEMUR 2+ VW LEFT Ordering Provider: NAVARRO AUSTIN Reason For Exam: evaluate the entire bone HISTORY: Left hip fracture Additional views of the left femur show no other fractures with changes of degenerative joint disease involving medial compartment of the knee. Report Dictated on Electronically Signed By: Jean Paul Payne MD Electronically Signed Date/Time: 04/21/2025 12:24 PM EDT XR hip left 2 or 3 views Result Date: 04/21/2025 Patient Name: MADAY ALFARO : 1940 Exam Date/Time: 04/21/2025 10:39 Procedure: XR HIP 2 OR 3 VW LEFT Ordering Provider: NAVARRO AUSTIN Reason For Exam: Hip trauma, fracture suspected, no prior imaging HISTORY: Trauma Frontal view the pelvis and views left hip shows COMMINUTED INTERTROCHANTERIC FRACTURE of the left hip with varus angulation. 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 Report Dictated on Electronically Signed By: Jean Paul Payne MD Electronically Signed Date/Time: 04/21/2025 10:52 AM EDT Problem List[2] ASSESSMENT: 84 yr old female s/p intertan nailing of the left intertrochanteric femur fracture, subsequent hypotension in the PACU PLAN: Neuro/Spine: - Pain control: tylenol, PRN oxy - Elevate HOB 30 degrees Seizures - Continue home dilantin BID - Will obtain Phenytoin levels Anxiety/insomnia/depression - Continue home zoloft - prn temazepam nightly for sleep - Nightly melatonin - Delirium precautions Cardiovascular: Hypotension HTN - MAP > 65 - Peripheral levophed as needed; off of levo this morning 04/24 - Repeat EKG - Pre-op EKG reviewed-- LAD with anterior fascicular block however this is stable from previous - repeat EKG with similar findings of left anterior fascicular block - Troponin: downtrending, most recent 66 from peak of 101 - TTE ordered; 87% EF, no valvular abnormalities - Hold home HTN medications - Telemetry - Hold home lisinopril - resume home ASA - Orthostats positive Afib with RVR - Amio bolus and gtt started overnight - Cardiology consult, will follow up their recs Pulmonary: - standard O2 protocol - IS FEN/GI: - On reg diet with supplemental ensures - Zofran PRN - Daily BMP, Mg, Phos - LA: downtrending, cleared - Bowel regimen - miralax and senna : - No acute issues - hicks removed 04/22; patient voiding without issue - Monitor I/Os - Goal UOP > 0.5 ml/kg/hr - continue q1 Is and Os Heme: - Hgb: 8.8 from 8.5 - s/p 2u pRBC 04/22 - q6 CBC, q6 HH - lovenox 30mg BID - HIT 4ts score on 04/23: 1 point, low probability of HIT - will continue to monitor platelets ID: -no acute issues - mupirocin BID x 5 days Endo: - no acute issues, glucose stable Lines/Devices: - PIV Prophylaxis: DVT: SCDs,lovenox 30 BID Has DVT PPX been started? Yes If no, why? N/a GI: not indicated Pressure Ulcer: continue to monitor, q2hr turns Musculoskeletal: - PT/OT - WBAT on LLE per Ortho WB Status: RUE:AT LUE: AT RLE: AT LLE: AT Is the patient in restraints?: No Medications Reconciled- Yes [x] NO [], Disposition: T2 ICU; cards consult prior to considering TTF [1] Current Facility-Administered Medications: acetaminophen (Tylenol) tablet 1,000 mg, 1,000 mg, Oral, q8h, Lisa Wayne MD, 1,000 mg at 04/24/25435 [COMPLETED] amiodarone (Nexterone) 150 mg/100 mL (premix), 150 mg, IntraVENous, Once, Stopped at 04/23/252235 FOLLOWED BY [] amiodarone (Nexterone) 360 mg/200 mL (premix), 1 mg/min, IntraVENous, Continuous, Stopped at 04/24/25434 FOLLOWED BY amiodarone (Nexterone) 360 mg/200 mL (premix), 0.5 mg/min, IntraVENous, Continuous, Migdalia Joseph MD, Last Rate: 16.67 mL/hr at 04/24/25434, 0.5 mg/min at 04/24/25434 aspirin chewable tablet 81 mg, 81 mg, Oral, Daily, Jono Fernandez MD, 81 mg at 04/23/251204 enoxaparin (Lovenox) syringe 30 mg, 30 mg, SubCUTAneous, q12h, Jono Fernadnez MD, 30 mg at 04/23/252226 melatonin tablet 5 mg, 5 mg, Oral, Nightly, Lisa Wayne MD, 5 mg at 04/23/252007 mupirocin (Bactroban) 2 % ointment, , Nasal, BID, Lisa Wayne MD, Given at 04/23/252007 naloxone (Narcan) injection 0.4 mg, 0.4 mg, IntraVENous, q5 min PRN, Miller Lee DO norepinephrine (Levophed) 4 mg in 0.9% sodium chloride 250 mL infusion (Ztn-Uamqaf-Dibzv) (premix), 2-50 mcg/min, IntraVENous, Continuous, Migdalia Joseph MD, Stopped at 04/24/25223 oxyCODONE (Roxicodone) immediate release tablet 5 mg, 5 mg, Oral, q4h PRN, 5 mg at 04/22/25940 OR oxyCODONE (Roxicodone) immediate release tablet 10 mg, 10 mg, Oral, q4h PRN, Lisa Wayne MD, 10 mg at 04/22/252053 perflutren protein A microsphere (Optison) 3 mL in sodium chloride (PF) 0.9 % 10 mL IV, 0-10 mL, IntraVENous, Once PRN, Lisa Wayne MD phenytoin ER (Dilantin) capsule 200 mg, 200 mg, Oral, BID, Lisa Wayne MD, 200 mg at 04/23/252008 polyethylene glycol (PEG) 3350 (Miralax) packet 17 g, 17 g, Oral, Daily, Lisa Wayne MD, 17 g at 04/23/25947 potassium phosphates 40 mmol in sodium chloride 0.9 % 500 mL IVPB, 40 mmol, IntraVENous, Once, Migdalia Joseph MD, Last Rate: 83.3 mL/hr at 04/24/255, 40 mmol at 04/24/25434 senna-docusate sodium (Senokot-S) 8.6-50 MG tablet 2 tablet, 2 tablet, Oral, BID, Lisa Wayne MD, 2 tablet at 04/23/252007 sertraline (Zoloft) tablet 200 mg, 200 mg, Oral, Daily, Yeimy Glasgow MD, 200 mg at 04/23/25 0948 sodium chloride 0.9 % infusion, 250 mL/hr, IntraVENous, PRN, Lisa Wayne MD sodium chloride 0.9 % infusion, 250 mL/hr, IntraVENous, PRN, Jono Fernandez MD temazepam (Restoril) capsule 15 mg, 15 mg, Oral, Nightly PRN, Yeimy Glasgow MD, 15 mg at 04/22/252053 thiamine (Vitamin B1) injection 100 mg, 100 mg, IntraVENous, Daily, Migdalia Joseph MD, 100 mg at 04/23/25 09 [2] Patient Active Problem List Diagnosis Chest pain Dilation of renal pelvis Closed displaced intertrochanteric fracture of left femur (HCC) Closed intertrochanteric fracture of hip, left, initial encounter ([facility]) Cosigned by Regina Sequeira MD at 04/24/2025 1:24 PM EDT Associated attestation - Regina Sequeira MD - 04/24/2025 1:24 PM EDT ~~~~~~~~~~~~~~~~~~~~~~~~~~~~~~~~~ ~~~~~~~~~~~~~~~~~~~~~~~~~~~~ ATTENDING ADDENDUM Problem List[1] I independently saw the above patient and reviewed the recent events, imaging, labs, vital signs; I performed a physical exam and ROS on the same date of service as above. My findings agree with the above note except for any details corrected below. HPI: 84 y.o. female presents with L hip pain after fall from standing height on 04/21. She went to OR with orthopedic surgery on 04/21 for left intertrochanteric femur nailing with Dr. Meng. She was briefly hypotensive intraoperatively; but seemed to recover. However in PACU patient persistently hypotensive with systolic pressures in the 70s. No blood transfusions but did require some pushes of monica and epinephrine. Levophed started during evaluation. Patient pain level currently is well controlled. Denies any history of heart disease outside of HTN. Imaging reviewed and independently interpreted: None Problem list: Acute, acute on chronic, unstable or uncontrolled chronic problems/diagnoses: Left intratrochanteric hip fracture with subtrochanteric extension Mechanical fall Acute blood loss anemia Thrombocytopenia 2/2 blood loss Lactic acidosis TANYA Stable chronic problems, affecting patient care: [Medical History] [Medical History] Past Medical History Diagnosis Date Hypertension Seizures (HCC) HTN and seizures. She takes aspirin, dilantin, zoloft, lisinopril, and temazepam. 24h: Acute blood loss anemia - hgb 8.8 stable Thrombocytopenia - stable 87 Hypotension - suspect multifactorial - hemorrhagic, medication Levophed off Afib with RVR overnight - started on amio gtt - check TSH - mag > 2 - replete phos - cards consult Hyponatremia - stable 131 + orthostatics today Voiding after hicks removal Start ensures Plan: Neurological system #Seizures - dilantin 200 mg BID - check phenytoin level #anxiety/insomnia/depression - zoloft 200 mg - temazepam 15 mg nightly PRN #Acute pain - Multimodal pain control # At risk for delirium/acute encephalopathy - Delirium precautions: limit nighttime disturbances and avoid anticholinergic meds, benzos, etc Circulatory system HTN/HLD - lisinopril 20 mg - HOLD - MAP > 65 - PRN anti-htn med Hypotension - suspect multifactorial - resolved - ECHO EF 87% Afib with RVR - cont amio gtt - cards consult Respiratory system - O2 protocol - Aggressive pulmonary hygiene Gastrointestinal system #Reg diet Constipation - Bowel regimen Renal function - Strict I/Os Immunologic system [x] Mupirocin for empiric MRSA decolonization x5 days #opal-op ancef - complete - Monitor for fevers Hematologic system #Acute blood loss anemia - Monitor hemoglobin Endocrine system #Hyperglycemia 2/2 steroids - resolved - Monitor glucose Integumentary system (GI and cutaneous) - Skin checks Musculoskeletal system - PTOT - SNF Ppx - DVT prophylaxis: SCDs, lovenox MEDS: Scheduled PRN Scheduled Meds[2] PRN Meds[3] Continuous Continuous Meds[4] Patient evaluated on 04/24/2025 Level of Medical Decision Making: risk of morbidity from additional diagnostic testing or treatment [x]High []Moderate []Low Complexity: Acute or chronic illness posing a threat to life (HIGH) Personally Reviewed/Independently interpreted patient's: [x]Epic notes: [][facility] [employer] [facility] notes, []Nursing notes, []Case management/SW []Radiology studies: []CT, []CXR, []AXR, []Pelvic XR [x]Labs: [x]CBC, [x]BMP, []CMP/LFTs, []PT/INR []EKG []Ordering tests []Other Discussed/ With: [x]Patient/Family: []Spouse, []Son/Daughter, []Mother/Father, []Friend []RN []Consultants: []Ortho, []Geriatrics, []Palliative, []PRS, []Nephro, []NCC, []NSG, []Cards IP CONSULT TO ORTHOPAEDIC SURGERY IP CONSULT TO WOUND PREVENTION IP CONSULT TO GERIATRICS IP CONSULT TO CARDIOLOGY []SW/TCC []Other I spent total time of 52 minutes reviewing previous notes (iuc, geriatrics, PT), test results, and face to face with Maday Alfaro discussing the diagnosis (see above, a dif with RVR) and importance of compliance with the treatment plan as well as documenting on the day of the visit. Time was spent, Reviewing medical record including recent tests and results Ordering prescription medications/tests and procedures Communicating results to the patient/family/caregiver Counseling/educating the patient/family/caregiver Documenting clinical information the patient's electronic record Coordination of care for the patient Performing a medical appropriate exam and evaluation ~~~~~~~~~~~~~~~~~~~~~~~~~~~~~~~~~ ~~~~~~~~~~~~~~~~~~~~~~~~~~~~ This note may have been dictated using [employer] Medical Practice Edition 2.6 and/or [employer] Voice Recognition Feature. The document was proofread; however, unrecognized voice recognition marble rubber errors may be present. [1] Patient Active Problem List Diagnosis Chest pain Dilation of renal pelvis Closed displaced intertrochanteric fracture of left femur (HCC) Closed intertrochanteric fracture of hip, left, initial encounter ([facility]) [2] acetaminophen, 1,000 mg, Oral, TID aspirin, 81 mg, Oral, Daily enoxaparin, 30 mg, SubCUTAneous, q12h magnesium sulfate, 4,000 mg, IntraVENous, Once melatonin, 5 mg, Oral, Nightly mupirocin, , Nasal, BID phenytoin ER, 200 mg, Oral, BID polyethylene glycol (PEG) 3350, 17 g, Oral, Daily senna-docusate sodium, 2 tablet, Oral, BID sertraline, 200 mg, Oral, Daily thiamine, 100 mg, IntraVENous, Daily [3] PRN medications: naloxone, oxyCODONE OR oxyCODONE, perflutren protein A microsphere (Optison) 3 mL in sodium chloride (PF) 0.9 % 10 mL IV, sodium chloride, sodium chloride, temazepam [4] amiodarone, 0.5 mg/min, Last Rate: 0.5 mg/min (04/24/25 0730) norepinephrine in sodium chloride 0.9 %, 2-50 mcg/min, Last Rate: Stopped (04/24/25223) Prompted to assess 4T score. Low concern for HIT at this time, score of 1. Has not received heparin and was thrombocytopenic on admission. Images from the original note were not included. PHYSICAL THERAPY [facility] Treatment Note Name/MRN: Maday Alfaro ([id number]) Date of : 1940 Age: 84 y.o. Room/Bed: T2-216/T2-216 A Discharge Recommendation: Alf Facility Other: tbd Assessment Pt presents with improved strength able to perform AROM hip flexion on RLE without assist and can assist more with movement in LLE during AAROM hip flexion. Pt max assist for supine to sit bed mobility. Pt has poor postural control, requiring mod to max assist to maintain posture, pt has R lateral trunk lean in supine and while sitting at EOB. Pt notes some dizziness when moving from supine to sit but it resolves after resting. Pt was max assist with sit to stand from EOB and max assist with 3 lateral steps to front of recliner. Pt has limited to no functional independence and is a fall risk would recommend SNF at discharge. Subjective Pt appropriate for PT per RN. RN notes her PT has improved with the use of medication. Pt lying in bed with R lateral trunk lean upon entry. Pt agreeable to PT. Pain: Pt reports pain with movement in LLE. Medical Precautions: No active isolations Proper PPE donned/doffed in accordance with facility standards. Fall Risk: [place] Fall Risk Score: 60 (Low Risk) [place] Fall Risk Score: 60 (High Risk) Precautions/Restrictions: Lines/Drains/Airways: tele, PIV Overall Cognitive Status: WFL Overall Orientation Status: Oriented to Place and Oriented to Person Family/Caregiver Present: none Objective Bed Mobility Supine to sit: Max Assist Transfers/Mobility Sit to stand: Max Assist Stand to sit: Max Assist Stand pivot: Max Assist Pt reports fatigue after transfers. Device(s) used: Used therapist for support Ambulation Ambulation 1 Assistive device(s) used: Used therapist for support Assist level: Max Assist Distance (ft): 3 Quality of gait: 3 lateral steps to L to front of recliner. Balance During Session: Posture: poor Sitting - Static: Mod Assist, Max Assist Sitting - Dynamic: Max Assist Standing - Static: Max Assist Pt performed 10 AROM hip flexion in RLE to improve strength. Pt performed 10 AAROM hip flexion LLE to improve stregnth. Pt able to assist with 25% of motion. Pt sat at EOB for 8 mins with mod to max assist. Pt experienced dizziness with tranfers, BP fell to 90s/40s but kaya to 104/64 after 6 mins. Pt presents with R lateral trunk lean while sitting at EOB. Pt cued to prop self on BUE for support. Pt able to support self for 10s intervals before needing manual assistance. Pt scooted forward while at EOB so feet could touch the ground to assist with transfer. Pt was max assist. Pt performed sit to stand with max assist, pt cued to lean forward and push the legs to help assist. Pt pivoted and to 3 lateral steps with max assist. Pt notes pain in LLE and dizziness. Pt given time at edge of recliner to let dizziness pass before she was scooted back into chair with max assist x2. Plan Continue acute PT per plan of care. Safety/Education Safety Safety Devices in place: call light within reach, left in chair, chair alarm in place, gait belt, and nurse notified Restraints: No Education Education Given To: patient Education Provided: PT Role and PT Goals Education Method: Verbal Barriers to Learning: None Education Outcome: Verbalized Understanding Outcome Measures AM-PAC AM-PAC Inpatient Mobility Raw Score (No Stairs) : 10 JH-HLM JH-HLM Scale: Transferred to chair/commode Goals Patient Stated Goal: Encounter Problems Encounter Problems (Active) Balance Patient will maintain static standing balance for 3 minutes with min assist in order to demonstrate decreased risk of falling. (Progressing) Start: 04/22/25 Expected End: 05/20/25 Patient will maintain static sitting balance for 3 minutes with min assist in order to demonstrate improved postural control and prepare for out of bed mobility. (Progressing) Start: 04/22/25 Expected End: 05/20/25 Mobility Patient will ambulate 150 feet with SBA and least restrictive device in order to improve safety and independence with mobility. (Progressing) Start: 04/22/25 Expected End: 05/20/25 Patient will ascend and descend 3 stairs with one hand hold and min assist in order to safely negotiate home. (Progressing) Start: 04/22/25 Expected End: 05/20/25 Transfers Patient will perform bed mobility with independence in order to improve independence and prepare for out of bed mobility. (Progressing) Start: 04/22/25 Expected End: 05/20/25 Patient will complete functional transfer with least restrictive device with independence in order to prepare for ambulation. (Progressing) Start: 04/22/25 Expected End: 05/20/25 Therapy Time Individual Co-treatment Time In 1315 Time Out 1344 Minutes 29 Timed Code Treatment Minutes: 29 Minutes 2 functional activity Gary Hammonds SPT Cosigned by Maryam Muro PT at 04/23/2025 2:50 PM EDT Images from the original note were not included. Daily SICU Progress Note Resident 04/23/2025 5:57 AM Admit Date: 04/21/2025 HPI: : 84 y.o. female presents with L hip pain after fall from standing height on 04/21. She went to OR with orthopedic surgery on 04/21 for left intertrochanteric femur nailing with Dr. Meng. She was briefly hypotensive intraoperatively; but seemed to recover. However in PACU patient persistently hypotensive with systolic pressures in the 70s. No blood transfusions but did require some pushes of monica and epinephrine. Levophed started during evaluation. Patient pain level currently is well controlled. Denies any history of heart disease outside of HTN. PMH significant for HTN and seizures. She takes aspirin, dilantin, zoloft, lisinopril, and temazepam. PSH significant for hysterectomy and nailing PROCEDURES: 04/21: left intertrochanteric femur nailing INCIDENTAL FINDINGS: CXR: tortuosity and enlargement of thoracic aorta, possibly aneurysmal, increased in size compared to 2019 CHIEF COMPLAINT: L hip pain PREVIOUS 24 HOUR EVENTS: - continued hypotension, still on 2mcg of levo - s/p 2u pRBC Consults: IP CONSULT TO ORTHOPAEDIC SURGERY IP CONSULT TO WOUND PREVENTION IP CONSULT TO GERIATRICS MEDICATIONS: Current Medications[1] ARE THERE PERTINENT UPDATES TO PAST,FAMILY, OR SOCIAL HISTORY?: No Subjective: Patient resting comfortably in bed this morning. States that pain is well controlled. Denies any nausea, vomiting, fevers, chills. Patient states she had food yesterday without any issues. Patient denies any headaches, lightheadedness, or dizziness. Review of Systems reviewed and negative unless otherwise mentioned above Objective: Patient Vitals for the past 24 hrs: BP Temp Temp src Pulse Resp SpO2 Height Weight 04/23/25 0515 120/62 -- -- 76 17 95 % -- -- 04/23/25 0500 118/59 -- -- 76 18 95 % -- -- 04/23/25 0445 124/65 -- -- 76 15 95 % -- -- 04/23/25 0430 118/62 -- -- 70 24 95 % -- -- 04/23/25 0415 123/52 -- -- 74 20 93 % -- -- 04/23/25 0400 115/55 -- -- 79 17 94 % -- -- 04/23/25 0345 119/57 -- -- 76 19 93 % -- -- 04/23/25 0330 123/50 -- -- 76 15 95 % -- -- 04/23/25 0315 110/56 -- -- 75 20 95 % -- -- 04/23/25 0300 106/54 -- -- 76 21 94 % -- -- 04/23/25 0245 (!) 116/49 -- -- 73 20 95 % -- -- 04/23/25 0215 114/58 -- -- 79 20 97 % -- -- 04/23/25 0200 99/86 -- -- 75 19 95 % -- -- 04/23/25 0145 (!) 119/49 -- -- 71 21 98 % -- -- 04/23/25 0130 114/53 -- -- 75 21 95 % -- -- 04/23/25 0115 111/51 -- -- 79 (!) 26 97 % -- -- 04/23/25 0100 119/55 -- -- 73 18 94 % -- -- 04/23/25 0045 115/70 -- -- 80 23 96 % -- -- 04/23/25 0030 125/52 -- -- 68 15 96 % -- -- 04/23/25 0015 125/52 -- -- 74 19 97 % -- -- 04/23/25 0000 (!) 111/40 -- -- 74 18 95 % -- -- 04/22/25 2354 -- 36.2 C (97.1 F) -- -- -- -- -- -- 04/22/25 2345 128/51 -- -- 69 17 96 % -- -- 04/22/25 2330 120/52 -- -- 76 17 95 % -- -- 04/22/25 2300 117/52 -- -- 76 18 96 % -- -- 04/22/25 2245 103/60 -- -- 76 20 96 % -- -- 04/22/25 2230 93/61 -- -- 77 14 97 % -- -- 04/22/25 2215 105/53 -- -- 75 19 96 % -- -- 04/22/25 2200 105/52 -- -- 77 19 94 % -- -- 04/22/252147 -- 36.4 C (97.6 F) -- -- -- -- -- -- 04/22/25 2145 119/63 -- -- 73 19 95 % -- -- 04/22/252130 -- 36.5 C (97.7 F) -- 76 20 94 % -- -- 04/22/252129 105/54 -- -- 74 21 94 % -- -- 04/22/252114 107/58 -- -- 77 19 93 % -- -- 04/22/25 2100 110/61 -- -- 78 23 93 % -- -- 04/22/252029 100/58 -- -- 81 14 96 % -- -- 04/22/252014 106/56 -- -- 78 21 95 % -- -- 04/22/251999 104/51 36.3 C (97.4 F) Temporal 77 21 96 % -- -- 04/22/251944 112/56 -- -- 77 23 100 % -- -- 04/22/25 193 112/55 -- -- 79 23 95 % -- -- 04/22/251914 122/61 -- -- 74 21 92 % -- -- 04/22/251910 99/57 -- -- 77 20 99 % -- -- 04/22/251899 -- -- -- 80 21 97 % -- -- 04/22/251844 (!) 89/72 -- -- 76 18 96 % -- -- 04/22/25 1830 118/53 -- -- 85 18 96 % -- -- 04/22/25 1815 114/55 -- -- 78 19 94 % -- -- 04/22/25 1800 106/59 -- -- 77 19 90 % -- -- 04/22/25 1745 104/57 -- -- 75 20 90 % -- -- 04/22/25 1730 111/57 -- -- 75 21 95 % -- -- 04/22/25 1715 107/59 -- -- 76 21 92 % -- -- 04/22/25 1700 103/73 -- -- 77 16 90 % -- -- 04/22/25 1645 91/80 -- -- 75 21 97 % -- -- 04/22/25 1630 98/57 -- -- 79 20 96 % -- -- 04/22/25 1615 108/53 -- -- 70 22 93 % -- -- 04/22/25 1600 96/66 -- -- 76 18 95 % -- -- 04/22/25 1545 100/56 -- -- 78 18 95 % -- -- 04/22/25 1530 110/63 -- -- 78 17 93 % -- -- 04/22/25 1515 105/58 -- -- 75 19 95 % -- -- 04/22/25 1500 109/67 -- -- 74 13 96 % -- -- 04/22/25 1445 108/65 -- -- 74 21 96 % -- -- 04/22/25 1430 119/65 -- -- 73 17 98 % -- -- 04/22/25 1415 96/59 -- -- 74 21 98 % -- -- 04/22/25 1403 96/51 36.4 C (97.6 F) -- 75 19 -- -- -- 04/22/25 1400 (!) 85/65 -- -- 74 19 95 % -- -- 04/22/25 1337 -- -- -- -- -- -- 5' 6 (1.676 m) 136 lb (61.7 kg) 04/22/25 1300 (!) 81/55 -- -- 77 21 97 % -- -- 04/22/25 1258 99/54 -- -- 74 16 97 % -- -- 04/22/25 1200 (!) 75/64 36.4 C (97.5 F) Temporal 73 15 94 % -- -- 04/22/25 1159 (!) 75/64 36.4 C (97.5 F) -- 75 18 94 % -- -- 04/22/25 1144 (!) 78/51 36.4 C (97.5 F) -- 78 18 95 % -- -- 04/22/25 1100 (!) 82/53 -- -- 76 16 96 % -- -- 04/22/25 1057 -- -- -- -- -- -- 5' 6 (1.676 m) -- 04/22/25 1015 (!) 86/69 -- -- 71 19 93 % -- -- 04/22/25 1000 (!) 78/52 -- -- 77 16 95 % -- -- 04/22/25 0900 (!) 80/66 -- -- 73 20 95 % -- -- 04/22/25 0800 108/53 36.4 C (97.6 F) Temporal 74 19 95 % -- -- 04/22/25 0700 104/59 -- -- 75 19 95 % -- -- 04/22/25 0645 111/70 -- -- 76 18 97 % -- -- 04/22/25 0630 107/67 -- -- 76 19 95 % -- -- 04/22/25 0615 107/59 -- -- 75 18 96 % -- -- 04/22/25 0600 (!) 88/61 -- -- 77 21 95 % -- -- Intake/Output Summary (Last 24 hours) at 04/23/2025 0557 Last data filed at 04/23/2025 0543 Gross per 24 hour Intake 4371.29 ml Output 1350 ml Net 3021.29 ml I/O this shift: In: 3036.5 [P.O.:400; I.V.:1836.2; Blood:375.3; IV Piggyback:425] Out: 900 [Urine:900] Last BM: prior to admission Diet: currently NPO CVP: No Chest Tubes: R: No L: No PHYSICAL: Physical Exam Constitutional: General: She is not in acute distress. Appearance: Normal appearance. She is not ill-appearing. HENT: Head: Normocephalic. Mouth/Throat: Mouth: Mucous membranes are moist. Cardiovascular: Rate and Rhythm: Normal rate. Pulses: Normal pulses. Comments: Palpable DP on L LE Pulmonary: Effort: Pulmonary effort is normal. No respiratory distress. Abdominal: General: Abdomen is flat. There is no distension. Palpations: Abdomen is soft. Tenderness: There is no abdominal tenderness. Musculoskeletal: Comments: Left lower extremity dressings c/d/I. Maryam wrap around left thigh Skin: General: Skin is warm. Neurological: Mental Status: She is alert. Sutures or yeni? Yes, dressing overtop sites on left thigh O2: 93-100 on RA / / / Data Review Data CBC with Differential: Lab Results Component Value Date WBC 7.1 04/23/2025 RBC 2.68 (L) 04/23/2025 HGB 8.9 (L) 04/23/2025 HCT 25.3 (L) 04/23/2025 PLT 85 (L) 04/23/2025 CMP: Lab Results Component Value Date NA 132 (L) 04/23/2025 K 3.6 04/23/2025 CL 105 04/23/2025 CO2 22 (L) 04/23/2025 BUN 21 04/23/2025 CREATININE 0.59 04/23/2025 GLUCOSE 112 04/23/2025 PROT 7.5 04/21/2025 CALCIUM 7.8 (L) 04/23/2025 BILITOT 0.8 04/21/2025 ALKPHOS 212 (H) 04/21/2025 AST 24 04/21/2025 ALT 17 04/21/2025 BMP: Hepatic Function Panel:Ionized Calcium: No components found for: IONCA Magnesium: No results found for: MG Phosphorus: No results found for: PHOS PT/INR: Lab Results Component Value Date PROTIME 11.3 04/21/2025 INR 1.1 04/21/2025 PTT: Lab Results Component Value Date APTT 27.9 04/21/2025 [APTT Last 3 Troponin: No results found for: TROPONINI Urine Culture: No components found for: CURINE Blood Culture: No components found for: CBLOOD, CFUNGUSBL Blood Culture from Central Line: No components found for: CBLOODLN Stool Culture: No components found for: CSTOOL Sputum Culture: No components found for: CSPUTUM Sputum Culture for AFB: No components found for: CAFBSM Wound Culture: n/a Radiology: ECG 12 lead Result Date: 04/21/2025 Sinus rhythm Left anterior fascicular block XR femur left 2+ views Result Date: 04/21/2025 Patient Name: MADAY ALFARO : 1940 Exam Date/Time: 04/21/2025 15:16 Procedure: XR FEMUR 2+ VW LEFT Ordering Provider: MOLINA TYLER Reason For Exam: post op EXAM: XR Left Femur, 2 Views CLINICAL INDICATION: post op TECHNIQUE: Frontal and lateral views of the left femur. COMPARISON: Left femur radiographs from 04/21/2025. Left hip radiographs from 04/21/2025. FINDINGS: BONES/JOINTS: Left femoral intramedullary ras with proximal and distal interlocking fixation screws. Hardware appears intact. Redemonstration of a left femoral intertrochanteric fracture. Improved alignment following fixation. Moderate left hip joint DJD. Left sacroiliac joint DJD. Degenerative change of the lower lumbar spine. Degenerative change of the pubic symphysis. Mild degenerative change of the medial and patellofemoral compartments of the knee. Tiny superior patellar enthesophyte. SOFT TISSUES: Expected postsurgical changes in the soft tissues. Several skin yeni. Intact left femoral fixation hardware. Report Dictated on Electronically Signed By: Lexus Rankin MD Electronically Signed Date/Time: 04/21/2025 3:37 PM EDT FL GUIDANCE OR USE ONLY - NON RESULTABLE Result Date: 04/21/2025 There is no interpretation needed for this exam. ECG 12 lead Sinus rhythm LAD, consider left anterior fascicular block Nonspecific T abnrm, anterolateral leads No change compared to previous ekg Electronically Signed On 04-21-2025 12:28:43 EDT by Elliott Navarro XR chest 1 view Result Date: 04/21/2025 Patient Name: MADAY ALFARO : 1940 Exam Date/Time: 04/21/2025 11:41 Procedure: XR CHEST 1 VIEW Ordering Provider: NAVARRO AUSTIN Reason For Exam: PRE-ANESTHESIA SEDATION HISTORY: preanesthesia Frontal view the chest shows tortuosity and enlargement of the thoracic aorta possible aneurysmal, increasing since 2019 chest x-ray with normal heart size with no infiltrates or pleural effusions. Report Dictated on Electronically Signed By: Jean Paul Payne MD Electronically Signed Date/Time: 04/21/2025 12:27 PM EDT XR femur left 2+ views Result Date: 04/21/2025 Patient Name: MADAY ALFARO : 1940 Exam Date/Time: 04/21/2025 11:41 Procedure: XR FEMUR 2+ VW LEFT Ordering Provider: NAVARRO AUSTIN Reason For Exam: evaluate the entire bone HISTORY: Left hip fracture Additional views of the left femur show no other fractures with changes of degenerative joint disease involving medial compartment of the knee. Report Dictated on Electronically Signed By: Jean Paul Payne MD Electronically Signed Date/Time: 04/21/2025 12:24 PM EDT XR hip left 2 or 3 views Result Date: 04/21/2025 Patient Name: MADAY ALFARO : 1940 Exam Date/Time: 04/21/2025 10:39 Procedure: XR HIP 2 OR 3 VW LEFT Ordering Provider: NAVARRO AUSTIN Reason For Exam: Hip trauma, fracture suspected, no prior imaging HISTORY: Trauma Frontal view the pelvis and views left hip shows COMMINUTED INTERTROCHANTERIC FRACTURE of the left hip with varus angulation. 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 Report Dictated on Electronically Signed By: Jean Paul Payne MD Electronically Signed Date/Time: 04/21/2025 10:52 AM EDT Problem List[2] ASSESSMENT: 84 yr old female s/p intertan nailing of the left intertrochanteric femur fracture, subsequent hypotension in the PACU PLAN: Neuro/Spine: - Pain control: tylenol, PRN oxy, PRN dilaudid - Elevate HOB 30 degrees Seizures - Continue home dilantin BID Anxiety/insomnia/depression - resume home zoloft, - prn temazepam nightly for sleep - Nightly melatonin - Delirium precautions Cardiovascular: Hypotension HTN - MAP > 65 - Peripheral levophed as needed; on 2 of levo this morning 04/22; wean as able - Repeat EKG - Pre-op EKG reviewed-- LAD with anterior fascicular block however this is stable from previous - repeat EKG with similar findings of left anterior fascicular block - Troponin: downtrending, most recent 66 from peak of 101 - TTE ordered; 87% EF, no valvular abnormalities - Hold home HTN medications - Telemetry - Hold home lisinopril - resume home ASA - repeat orthostatic vitals Pulmonary: - standard O2 protocol - IS FEN/GI: - stopped mIVF; on reg diet - Zofran PRN - Daily BMP, Mg, Phos - LA: downtrending, now cleared - Bowel regimen - miralax and senna : - No acute issues - hicks removed 04/22; patient voiding without issue - Monitor I/Os - Goal UOP > 0.5 ml/kg/hr - 225mL UOP overnight - continue q1 Is and Os Heme: - Hgb: 8.9 from 7.8 - s/p 2u pRBC yesterday 04/22 - q6 CBC, q6 HH - Ok for DVT ppx per ortho; will resume lovenox 30mg BID today - HIT 4ts score: 1 point, low probability of HIT - will continue to monitor platelets ID: -no acute issues - mupirocin BID x 5 days - ancef for 24hrs periop Endo: - hyperglycemia secondary to steroids, continue to monitor Lines/Devices: - PIV Prophylaxis: DVT: SCDs, hold ppx Has DVT PPX been started? No If no, why? S/p OR, HGB still dropping GI: not indicated Pressure Ulcer: continue to monitor, q2hr turns Musculoskeletal: - PT/OT - WBAT on LLE per Ortho WB Status: RUE:AT LUE: AT RLE: AT LLE: AT Is the patient in restraints?: No Medications Reconciled- Yes [x] NO [], Disposition: T2 ICU; possible transfer to floor in afternoon if off of peripheral levo [1] Current Facility-Administered Medications: acetaminophen (Tylenol) tablet 1,000 mg, 1,000 mg, Oral, q8h, Lisa Wayne MD, 1,000 mg at 04/21/252104 dextrose 5 % and sodium chloride 0.45 % with KCl 20 mEq/L infusion, 50 mL/hr, IntraVENous, Continuous, Stella Sage MD, Last Rate: 50 mL/hr at 04/22/252112, 50 mL/hr at 04/22/252112 melatonin tablet 5 mg, 5 mg, Oral, Nightly, Lisa Wayne MD mupirocin (Bactroban) 2 % ointment, , Nasal, BID, Lisa Wayne MD naloxone (Narcan) injection 0.4 mg, 0.4 mg, IntraVENous, q5 min PRN, Miller Lee DO norepinephrine (Levophed) 4 mg in 0.9% sodium chloride 250 mL infusion (Ext-Dkskwh-Kpfvy) (premix), 2-50 mcg/min, IntraVENous, Continuous, Stella Sage MD, Last Rate: 7.5 mL/hr at 04/22/252113, 2 mcg/min at 04/22/252113 oxyCODONE (Roxicodone) immediate release tablet 5 mg, 5 mg, Oral, q4h PRN, 5 mg at 04/22/25940 OR oxyCODONE (Roxicodone) immediate release tablet 10 mg, 10 mg, Oral, q4h PRN, Lisa Wayne MD, 10 mg at 04/22/252053 perflutren protein A microsphere (Optison) 3 mL in sodium chloride (PF) 0.9 % 10 mL IV, 0-10 mL, IntraVENous, Once PRN, Lisa Wayne MD phenytoin ER (Dilantin) capsule 200 mg, 200 mg, Oral, BID, Lisa Wayne MD, 200 mg at 04/22/252055 polyethylene glycol (PEG) 3350 (Miralax) packet 17 g, 17 g, Oral, Daily, Lisa Wayne MD senna-docusate sodium (Senokot-S) 8.6-50 MG tablet 2 tablet, 2 tablet, Oral, BID, Lisa Wayne MD, 2 tablet at 04/22/25933 sertraline (Zoloft) tablet 200 mg, 200 mg, Oral, Daily, Yeimy Glasgow MD sodium chloride 0.9 % infusion, 250 mL/hr, IntraVENous, PRN, Lisa Wayne MD sodium chloride 0.9 % infusion, 250 mL/hr, IntraVENous, PRN, Jono Fernandez MD temazepam (Restoril) capsule 15 mg, 15 mg, Oral, Nightly PRN, Yeimy Glasgow MD, 15 mg at 04/22/252053 thiamine (Vitamin B1) injection 100 mg, 100 mg, IntraVENous, Daily, Migdalia Joseph MD, 100 mg at 04/22/25932 [2] Patient Active Problem List Diagnosis Chest pain Dilation of renal pelvis Closed displaced intertrochanteric fracture of left femur (HCC) Closed intertrochanteric fracture of hip, left, initial encounter ([facility]) Cosigned by Regina Sequeira MD at 04/24/2025 7:25 AM EDT Associated attestation - Regina Sequeira MD - 04/24/2025 7:25 AM EDT ATTENDING ADDENDUM I independently saw the above patient and reviewed the recent events, imaging, labs, vital signs; I performed a physical exam and ROS. My findings agree with the above note except for any details corrected below. Problem List[1] A complete review of systems was obtained and is negative except as stated in HPI. HPI: 84 y.o. female presents with L hip pain after fall from standing height on 04/21. She went to OR with orthopedic surgery on 04/21 for left intertrochanteric femur nailing with Dr. Meng. She was briefly hypotensive intraoperatively; but seemed to recover. However in PACU patient persistently hypotensive with systolic pressures in the 70s. No blood transfusions but did require some pushes of monica and epinephrine. Levophed started during evaluation. Patient pain level currently is well controlled. Denies any history of heart disease outside of HTN. Imaging reviewed and independently interpreted: None Problem list: Acute, acute on chronic, unstable or uncontrolled chronic problems/diagnoses: Left intratrochanteric hip fracture with subtrochanteric extension Mechanical fall Acute blood loss anemia Thrombocytopenia 2/2 blood loss Lactic acidosis TANYA Stable chronic problems, affecting patient care: [Medical History] [Medical History] Past Medical History Diagnosis Date Hypertension Seizures (HCC) HTN and seizures. She takes aspirin, dilantin, zoloft, lisinopril, and temazepam. 24h: Restart ASA, start lovenox Acute blood loss anemia - 1 prbc overnight - hgb 8.9 Hypotension - suspect multifactorial Peripheral levophed --> wean to day IVF LR 50cc/h - DC Tolerating reg diet Lactic acidosis resolved Hyponatremia - cont to trend +orthostatic - recheck Plan: Neurological system #Seizures - dilantin 200 mg #anxiety/insomnia/depression - zoloft 200 mg - temazepam 15 mg nightly PRN #Acute pain - Multimodal pain control # At risk for delirium/acute encephalopathy - Delirium precautions: limit nighttime disturbances and avoid anticholinergic meds, benzos, etc Circulatory system HTN/HLD - lisinopril 20 mg - HOLD - MAP > 65 - PRN anti-htn med Hypotension - suspect multifactorial - Peripheral levophed - ECHO EF 87% Respiratory system - O2 protocol - Aggressive pulmonary hygiene Gastrointestinal system #Reg diet Ar risk for constipation - Bowel regimen Renal function - Strict I/Os - DC Hicks Immunologic system [x] Mupirocin for empiric MRSA decolonization x5 days #opal-op ancef - complete - Monitor for fevers Hematologic system #Acute blood loss anemia - Monitor hemoglobin Endocrine system #Hyperglycemia 2/2 steroids - resolved - Monitor glucose Integumentary system (GI and cutaneous) - Skin checks Musculoskeletal system - PTOT - SNF Ppx - DVT prophylaxis: SCDs MEDS: Scheduled PRN Scheduled Meds[2] PRN Meds[3] Continuous Continuous Meds[4] Patient evaluated on 04/23/2025 Critical Care time spent 43 min. The time involved in the performance of this care was exclusive of separately billable procedures, teaching time and treating other patients. The time was spent personally by the attending physician for the following activities: examination of the patient, ordering and/or performing treatment, reviewing the laboratory and radiographic studies, and if applicable, ventilator management and blood gas interpretation. Critical Care was necessary because of an illness or injury that actively impaired one or more vital organ systems such that there was a high probability of imminent life treatening deterioration in the patient's condition. The following organ systems are involved: CV Level of Medical Decision Making: risk of morbidity from additional diagnostic testing or treatment due to Hypotension [x]High []Moderate []Low Complexity: Acute or chronic illness posing a threat to life (HIGH) Personally Reviewed/Independently interpreted patient's: [x]Epic notes []Radiology studies [x]Labs []EKG []Ordering tests []Other Discussed/ With: [x]Patient/Family [x]RN []Consultants []SW/TCC []Other Regina Sequeira MD Division of Trauma Department of Surgery [facility] ~~~~~~~~~~~~~~~~~~~~~~~~~~~~~~~~~ ~~~~~~~~~~~~~~~~~~~~~~~~~~~~~~~~~ ~~~~~ This note may have been dictated using GetFeedback Practice Edition 2.6 and/or Watson Brown Voice Recognition Feature. The document was proofread; however, unrecognized voice recognition marble rubber errors may be present. [1] Patient Active Problem List Diagnosis Chest pain Dilation of renal pelvis Closed displaced intertrochanteric fracture of left femur (HCC) Closed intertrochanteric fracture of hip, left, initial encounter ([facility]) [2] acetaminophen, 1,000 mg, Oral, q8h aspirin, 81 mg, Oral, Daily enoxaparin, 30 mg, SubCUTAneous, q12h melatonin, 5 mg, Oral, Nightly mupirocin, , Nasal, BID phenytoin ER, 200 mg, Oral, BID polyethylene glycol (PEG) 3350, 17 g, Oral, Daily senna-docusate sodium, 2 tablet, Oral, BID sertraline, 200 mg, Oral, Daily thiamine, 100 mg, IntraVENous, Daily [3] PRN medications: naloxone, oxyCODONE OR oxyCODONE, perflutren protein A microsphere (Optison) 3 mL in sodium chloride (PF) 0.9 % 10 mL IV, sodium chloride, sodium chloride, temazepam [4] norepinephrine in sodium chloride 0.9 %, 2-50 mcg/min, Last Rate: 1 mcg/min (04/23/25 1405) Images from the original note were not included. Ortho Progress Note Patient: Maday Alfaro Date of : 1940 Acct: [id number] PCP: CHRISTIAN HARRISON NP Date of Admission: 04/21/2025 Date of Service: Pt seen/examined on 04/23/2025 SUBJECTIVE: No acute events overnight. Resting comfortably in bed. Pain well controlled. denies paresthesias. denies CP/SOB. Denies fevers or chills. Overall feeling well but BP still requiring pressor support and has not worked with PT 2/2 low BP. Asymptomatic at this time, denies lightheadeness or dizziness. OBJECTIVE: General: alert and oriented to person, place and time, well-developed and well-nourished, in no acute distress VITALS: BP 120/62 Pulse 76 Temp 36.2 C (97.1 F) Resp 17 Ht 1.676 m (5' 6) Wt 61.7 kg (136 lb) SpO2 95% BMI 21.95 kg/m MSK exam: LLE Dressing: C/D/I. No strikethrough on gauze. Mild swelling about L thigh with TTP but no new ecchymosis or obvious expansion of swelling SILT Sa/Spicer/DP/SP/T DF/EHL/PF intact DP pulse palpable; brisk capillary refill to toes Lab Results Component Value Date WBC 7.1 04/23/2025 HGB 8.9 (L) 04/23/2025 HCT 25.3 (L) 04/23/2025 PLT 85 (L) 04/23/2025 ALT 17 04/21/2025 AST 24 04/21/2025 NA 132 (L) 04/23/2025 K 3.6 04/23/2025 CL 105 04/23/2025 CREATININE 0.59 04/23/2025 BUN 21 04/23/2025 CO2 22 (L) 04/23/2025 INR 1.1 04/21/2025 Lab Results Component Value Date RH POS 04/21/2025 RH POS 04/21/2025 ASSESSMENT AND PLAN: This is a 84 y.o. female s/p L hip CMN 04/21 Post op Plan: -WBAT LLE -Ancef x 24 hrs complete -PT/OT, attempt ambulation if BP permits -Dressing: Okay to remove dressing POD#2, if dry leave open to air, if saturated replace PRN -PACU xray -DVT, medical, and pain management per 1 -F/u with Dr. Meng in 2 weeks -d/c instructions in chart -ortho to follow peripherally -Please page manager of production ortho resident with questions/concerns Janneth Centeno MD Orthopaedic Surgery PGY-2 Epic Chat Nutrition Assessment Type and Reason for Visit: Initial (ICU screen) Nutrition Recommendations/Plan: Continue current diet. Per MNT, initiate ONS Ensure once daily. Please document % meal intakes under I/O flowsheet. Monitor nutrition status, intakes, wt trends, labs, and fluid balance. RD will continue to follow. Malnutrition Assessment: Malnutrition Status: Insufficient data Nutrition Assessment: Pt PMHx of HTN, seizure, insomnia and HLD is presenting for left hip pain after mechanical fall. X-ray of left hip with acute commuted intertrochanteric fracture of left hip with varus angulation. Ortho consulted; s/p OR 04/21 for left hip CMN. Planning discharge to [facility]. Estimated Daily Nutrient Needs: Energy Requirements Based On: Kcal/kg Weight Used for Energy Requirements: [place] Weight for Energy Calculation (kg): 59 kg Total Energy Requirements (kcals/day): 5192-7689 Weight Used for Protein Requirements: [place] Weight in Kg Used for Protein Requirements: 59 kg Estimated Total Protein (g/day): 71-83 Estimated Daily Total Fluid (ml/day): per Nutrition Related Findings: +BS. -I&O. No edema. Galileo 16 Wound Type: Surgical Incision BMP: Recent Labs 04/21/25 1016 04/21/25 1856 04/22/25 0024 NA 135* 135* 135* K 3.6 4.2 4.2 CL 101 105 104 CO2 22* 19* 20* BUN 15 19 22 CREATININE 0.66 0.79 1.02 GLUCOSE 146* 204* 163* CALCIUM 9.6 8.8 8.8 HEPATIC: Recent Labs 04/21/25 1016 AST 24 ALT 17 BILITOT 0.8 ALKPHOS 212* No results found for: HGBA1C Current Nutrition Therapies: Adult diet Regular Current Oral Intake Average Meal Intake: Unable to assess Average Supplements Intake: None Ordered Anthropometric Measures: Height: 167.6 cm (5' 6) Current Body Weight: 61.7 kg (136 lb) Weight Source: Not Specified Usual Body Weight: 66.2 kg (146 lb) (11/21) % Weight Change (Calculated): -6.8 [place] Body Weight (lbs) (Calculated): 130 lbs [place] Body Weight (Kg) (Calculated): 59 kg % [place] Body Weight (Calculated): 104.6 % BMI (kg/m2) (Calculated): 22 Weight Adjustment For: No Adjustment BMI Categories: Normal Weight (BMI 22.0 to 24.9) age over 65 Nutrition Diagnosis: Increased nutrient needs related to increase demand for energy/nutrients as evidenced by wounds Nutrition Interventions: Nutrition Education/Counseling: No recommendation at this time Coordination of Nutrition Care: Continue to monitor while inpatient Goals: Goals: Meet at least 75% of estimated needs, by next RD assessment Nutrition Monitoring and Evaluation: Behavioral-Environmental Outcomes: None Identified Food/Nutrient Intake Outcomes: Food and Nutrient Intake, Supplement Intake Physical Signs/Symptoms Outcomes: Biochemical Data, GI Status, Fluid Status or Edema, Nutrition Focused Physical Findings, Skin, Weight Discharge Planning: Too soon to determine Elizabeth Green RD, LD Contact: [phone] Images from the original note were not included. OCCUPATIONAL THERAPY [facility] Name/MRN: Maday Alfaro ([id number]) Date: 04/22/2025 OT eval and treat order received. Patient chart reviewed. Patient declining participation due to being tired and having a lot of visitors this PM. Will evaluate as schedule allows. Katia Shafer OT Spiritual Care Note [facility] Palliative Care Patient Name:Maday Alfaro Chief Complaint: Chief Complaint Patient presents with Hip Pain Hip pain post fall. Pt was down for about four hours. Pt has c/o left hip and leg pain . Shortening and rotation noted . Reason for visit: [facility] Provided To:patient Background and visit note: Patient is [employer] and received the Anointing of the Sick by FR Father Hodges today Is there spiritual distress? YES Julius Castillo 04/22/25 Images from the original note were not included. PHYSICAL THERAPY [facility] Initial Evaluation Name/MRN: Maday Alfaro ([id number]) Evaluation Date: 04/22/2025 Date of : 1940 Admission Date: 04/21/2025 9:46 AM Age: 84 y.o. Room/Bed: T2-216/T2-216 A Discharge Recommendation: Alf Facility Other: tbd Assessment IMPRESSION: 84 y.o. pt admitted to [facility] for s/p intertan nailing of left intertrochanteric femur fracture (04/21) s/p mechanical fall. Pt is WBAT on on LLE. They were max for bed mobility supine to sit at EOB, pt had limited postural control in sitting needing max assist to stay upright. Pts BP dropped to low 60s systolic and 30s diastolic, and reported dizziness, pt was returned to supine where there BP returned to 84/48. Unable to transfer or ambulate due dizziness, weakness BLE, and pain. Pt is not safe to return home as patient is a fall risk would recommend SNF at discharge. Admitting Diagnosis: intertan nailing of left intertrochanteric femur fracture (04/21) s/p mechanical fall Prognosis: fair Performance Deficits /Impairments: Increased Pain, Decreased Functional Mobility, Decreased Strength, Decreased Endurance, Decreased Balance, and Decreased Posture Decision Making: Medium Complexity Subjective Pt appropriate for PT per RN. Pt lying in bed upon entry. Pt agreeable to PT. Pain: Pt denies any current pain. Reports pain with movement in LLE. Past Medical History: Medical History[1] Past Surgical History: Surgical History[2] Admission Diagnosis: Patient Active Problem List Diagnosis Date Noted Closed intertrochanteric fracture of hip, left, initial encounter ([facility]) 04/21/2025 Closed displaced intertrochanteric fracture of left femur ([facility]) 04/21/2025 Dilation of renal pelvis 01/04/2019 Chest pain 08/05/2018 Medical Precautions: No active isolations Proper PPE donned/doffed in accordance with facility standards. Fall Risk: [place] Fall Risk Score: 70 (Low Risk) [place] Fall Risk Score: 70 (High Risk) Precautions/Restrictions: Left LE Weight Bearing: Weight Bearing As Tolerated Lines/Drains/Airways: tele, PIV, Pt BP dropped with movement. Family/Caregiver Present: none Overall Cognitive Status: WNL Overall Orientation Status: Oriented x4 Vision: Not Assessed Hearing: normal Social/Functional History Patient admitted from home. Lives With: Alone Type of Home: apartment Home Layout: Single Level Home Home Access: Stairs to Enter with Rails (# of stairs: 3) Bathroom Shower/Tub: Walk in Shower Toilet: Grab Bars Home Equipment: front wheeled walker, 4 wheeled walker, and cane Homemaking Responsibilities: Independent Receives Help From: Family Active Tube Handler: Pt reports she has not driven in several months. Prior Level of Function Prior Level of ADL Function: Independent Prior Level of Mobility: Independent; Device: Front wheeled walker Prior Level of Transfers: Independent Objective Lower Extremity Assessment AROM: Impaired: 50% of movement grossly in LLE PROM: Impaired: Pain limiting ROM in LLE Strength: Lower Extremity Strength Right Left Hip Flexion 3+ 3- Hip Abduction 3+ 3- Knee Extension 3+ 3+ Knee Flexion 3+ 3- Ankle Dorsiflexion (DF) 4 4 Ankle Plantarflexion (PF) 4 4 Sensation: WFL Balance: Balance During Session: Posture: poor Sitting - Static: Mod Assist, Max Assist Sitting - Dynamic: Max Assist Bed Mobility: Supine to sit: Max Assist Sit to supine: Max Assist Scooting: Max Assist Transfers NT d/t weakness, pain, and light headedness. Ambulation Did not assess this session. Pt sat at EOB for 4 mins with mod to max assist. Pt has poor postural strength, leaning laterally R. Pt cued for hand placement to better assist in holding self up. Pt performed AAROM heal slides while supine bed 2 sets of 10 Pt able to assist with 90% of movement on RLE and 25% in LLE, pain with movement in LLE. Pt give verbal cues to improve motion. PT performed 1 set of 10 knee extension while sitting at EOB to improve strength with mod assist to maintain sitting posture. Outcome Measures AM-PAC How much HELP from another person do you currently need Turning from your back to your side while in a flat bed without using bedrails?: A Lot Moving from lying on your back to sitting on the side of a flat bed without using bedrails?: A Lot Moving to and from a bed to a chair (including a wheelchair)?: A Lot Standing up from a chair using your arms (wheelchair or bedside chair)?: Total Walking in a hospital room?: Total AM-[facility] Inpatient Mobility Raw Score (No Stairs) : 8 JH-HLM JH-HLM Scale: Sat at edge of bed Plan Pt would benefit from skilled acute PT services to address Strengthening, ROM, Gait Training, Balance Training, Functional Mobility Training, Endurance Training, Stair Training, and Pain Management. Frequency: 5x/weekfor 4 weeks Barriers: Pain, Impaired balance, Lower extremity weakness, Decreased endurance, Stairs at home, and Dizziness Safety/Education Safety Safety Devices in place: call light within reach, left in bed, nurse notified, and no alarms engaged upon entry, nurse notified on BP change with movement. Restraints: No Education Education Given To: patient Education Provided: PT Role and PT Goals Education Method: Verbal Barriers to Learning: None Education Outcome: Verbalized Understanding Goals Patient Stated Goal: To improve functional status. Encounter Problems Encounter Problems (Active) Balance Patient will maintain static standing balance for 3 minutes with min assist in order to demonstrate decreased risk of falling. Start: 04/22/25 Expected End: 05/20/25 Patient will maintain static sitting balance for 3 minutes with min assist in order to demonstrate improved postural control and prepare for out of bed mobility. Start: 04/22/25 Expected End: 05/20/25 Mobility Patient will ambulate 150 feet with SBA and least restrictive device in order to improve safety and independence with mobility. Start: 04/22/25 Expected End: 05/20/25 Patient will ascend and descend 3 stairs with one hand hold and min assist in order to safely negotiate home. Start: 04/22/25 Expected End: 05/20/25 Transfers Patient will perform bed mobility with independence in order to improve independence and prepare for out of bed mobility. Start: 04/22/25 Expected End: 05/20/25 Patient will complete functional transfer with least restrictive device with independence in order to prepare for ambulation. Start: 04/22/25 Expected End: 05/20/25 Therapy Time Individual Co-Treatment Co-Evaluation Time In 0818 Time Out 0845 Minutes 27 Timed Code Treatment Minutes: 8 Minutes functional activity Gary MCNULTY Patient's Physical Therapy Plan of Care supervision is transferred to a [facility] Physical Therapist. Goals and/or treatment plan was established in collaboration with patient/family/other representatives. [1] Past Medical History: Diagnosis Date Hypertension Seizures (HCC) [2] Past Surgical History: Procedure Laterality Date EYE SURGERY HYSTERECTOMY Cosigned by Maryam Muro PT at 04/22/2025 3:01 PM EDT Images from the original note were not included. Daily SICU Progress Note Resident 04/22/2025 6:39 AM Admit Date: 04/21/2025 HPI: : 84 y.o. female presents with L hip pain after fall from standing height on 04/21. She went to OR with orthopedic surgery on 04/21 for left intertrochanteric femur nailing with Dr. Meng. She was briefly hypotensive intraoperatively; but seemed to recover. However in PACU patient persistently hypotensive with systolic pressures in the 70s. No blood transfusions but did require some pushes of monica and epinephrine. Levophed started during evaluation. Patient pain level currently is well controlled. Denies any history of heart disease outside of HTN. PMH significant for HTN and seizures. She takes aspirin, dilantin, zoloft, lisinopril, and temazepam. PSH significant for hysterectomy and nailing PROCEDURES: 04/21: left intertrochanteric femur nailing INCIDENTAL FINDINGS: CXR: tortuosity and enlargement of thoracic aorta, possibly aneurysmal, increased in size compared to 2019 CHIEF COMPLAINT: L hip pain PREVIOUS 24 HOUR EVENTS: - 04/21 OR for L intertrochanteric femur nailing, subsequent postop hypotension Consults: IP CONSULT TO ORTHOPAEDIC SURGERY IP CONSULT TO WOUND PREVENTION MEDICATIONS: Current Medications[1] ARE THERE PERTINENT UPDATES TO PAST,FAMILY, OR SOCIAL HISTORY?: No Subjective: Patient resting comfortably in bed this morning. States that pain is well controlled. Denies any nausea, vomiting, fevers, chills. Patient states she has had some sips of water overnight without any issues. Patient reports that she has low blood pressures at baseline, but understands why she was brought to the ICU after surgery. Patient denies any lightheadedness or dizziness. Review of Systems reviewed and negative unless otherwise mentioned above Objective: Patient Vitals for the past 24 hrs: BP Temp Temp src Pulse Resp SpO2 04/22/25 0630 107/67 -- -- 76 19 95 % 04/22/25 0615 107/59 -- -- 75 18 96 % 04/22/25 0600 (!) 88/61 -- -- 77 21 95 % 04/22/25 0545 100/59 -- -- 75 18 98 % 04/22/25 0530 (!) 85/57 -- -- 78 17 99 % 04/22/25 0515 (!) 77/55 -- -- 77 14 96 % 04/22/25 0500 (!) 116/101 -- -- 85 24 99 % 04/22/25 0445 96/58 -- -- 78 14 94 % 04/22/25 0430 99/60 -- -- 77 16 95 % 04/22/25 0415 107/64 -- -- 86 14 97 % 04/22/25 0400 104/66 36.3 C (97.3 F) Temporal 80 17 97 % 04/22/25 0345 120/72 -- -- 75 14 97 % 04/22/25 0330 108/72 -- -- 82 16 96 % 04/22/25 0315 97/60 -- -- 80 19 94 % 04/22/25 0300 (!) 87/64 -- -- 83 21 94 % 04/22/25 0245 103/68 -- -- 80 19 96 % 04/22/25 0230 111/71 -- -- 83 21 96 % 04/22/25 0215 115/61 -- -- 79 19 96 % 04/22/25 0200 (!) 89/68 -- -- 94 18 97 % 04/22/25 0145 (!) 71/57 -- -- 94 18 98 % 04/22/25 0130 99/75 -- -- 93 21 93 % 04/22/25 0115 105/73 -- -- 88 13 97 % 04/22/25 0100 (!) 81/60 -- -- 94 18 99 % 04/22/25 0045 (!) 78/55 -- -- 101 (!) 26 97 % 04/22/25 0030 91/69 -- -- 95 18 97 % 04/22/25 0015 111/72 -- -- 87 22 96 % 04/22/25 0000 103/67 -- -- 87 19 94 % 04/21/25 2345 106/72 -- -- 89 21 92 % 04/21/25 2330 105/74 -- -- 88 21 95 % 04/21/25 2315 96/68 -- -- 90 19 98 % 04/21/25 2300 (!) 81/64 -- -- 97 25 98 % 04/21/25 2245 111/65 -- -- 97 24 95 % 04/21/25 2230 102/73 -- -- 92 23 97 % 04/21/25 2215 (!) 79/60 -- -- 93 21 97 % 04/21/25 2200 (!) 76/65 -- -- 91 25 98 % 04/21/25 2145 90/65 -- -- 100 24 (!) 79 % 04/21/25 2130 (!) 84/62 -- -- 92 23 98 % 04/21/25 211 (!) 73/58 -- -- 100 24 99 % 04/21/25 2100 92/69 -- -- 94 18 98 % 04/21/255 107/75 -- -- 91 22 95 % 04/21/25 2030 97/74 -- -- 94 23 94 % 04/21/252014 99/75 -- -- 93 24 94 % 04/21/251999 (!) 83/69 36.3 C (97.3 F) Temporal 93 20 96 % 04/21/25 1940 98/71 -- -- 94 16 99 % 04/21/25 1935 96/63 -- -- 97 21 100 % 04/21/25 1930 83/59 -- -- 93 15 100 % 04/21/25 1920 104/65 -- -- 93 16 98 % 04/21/25 1915 87/67 -- -- 89 20 98 % 04/21/25 1900 88/60 -- -- 90 15 100 % 04/21/25 1855 78/54 -- -- 106 23 94 % 04/21/25 1830 73/52 -- -- 86 19 97 % 04/21/25 1825 (!) 81/44 -- -- 86 16 96 % 04/21/25 1820 (!) 61/49 -- -- 88 14 96 % 04/21/25 1815 (!) 55/34 -- -- 91 16 94 % 04/21/25 1810 79/56 -- -- 83 18 94 % 04/21/25 1805 88/63 -- -- 78 18 93 % 04/21/25 1800 101/65 -- -- 84 19 95 % 04/21/25 1755 (!) 69/53 -- -- 81 16 95 % 04/21/25 1750 91/70 -- -- 82 21 95 % 04/21/25 1745 82/57 -- -- 85 16 94 % 04/21/25 1740 75/55 -- -- 88 20 96 % 04/21/25 1735 82/60 -- -- 83 18 93 % 04/21/25 1730 92/69 -- -- 80 12 94 % 04/21/25 1725 91/65 -- -- 75 16 95 % 04/21/25 1720 75/55 -- -- 77 14 95 % 04/21/25 1715 (!) 57/45 -- -- 81 18 97 % 04/21/25 1705 74/52 -- -- 81 16 99 % 04/21/25 1700 82/56 -- -- 77 13 95 % 04/21/25 1655 87/60 -- -- 76 19 96 % 04/21/25 1645 98/61 -- -- 73 16 95 % 04/21/25 1635 97/61 -- -- -- -- -- 04/21/25 1630 87/58 -- -- 73 15 95 % 04/21/25 1622 102/60 -- -- -- -- -- 04/21/25 1615 89/59 -- -- 74 16 96 % 04/21/25 1609 78/55 -- -- -- -- -- 04/21/25 1605 (!) 64/41 -- -- -- -- -- 04/21/25 1601 (!) 69/54 -- -- -- -- -- 04/21/25 1600 86/63 -- -- 72 17 97 % 04/21/25 1545 93/64 -- -- 74 18 96 % 04/21/25 1535 -- 36.2 C (97.2 F) Axillary -- -- -- 04/21/25 1530 95/56 -- -- 74 17 96 % 04/21/25 1515 95/63 -- -- 76 19 98 % 04/21/25 1500 124/71 (!) 35.6 C (96 F) Tympanic 81 23 96 % 04/21/25 1311 129/54 -- -- 70 16 96 % 04/21/25 1247 (!) 163/93 -- -- 66 17 99 % 04/21/25 1206 (!) 155/83 -- -- 64 18 97 % 04/21/25 1100 135/79 36.4 C (97.5 F) Axillary 84 19 96 % Intake/Output Summary (Last 24 hours) at 04/22/2025 0639 Last data filed at 04/22/2025 0612 Gross per 24 hour Intake 998.26 ml Output 1075 ml Net -76.74 ml I/O this shift: In: 988.2 [I.V.:788.2; IV Piggyback:200] Out: 225 [Urine:225] Last BM: prior to admission Diet: currently NPO CVP: No Chest Tubes: R: No L: No PHYSICAL: Physical Exam Constitutional: General: She is not in acute distress. Appearance: Normal appearance. She is not ill-appearing. HENT: Head: Normocephalic. Mouth/Throat: Mouth: Mucous membranes are moist. Cardiovascular: Rate and Rhythm: Normal rate. Pulses: Normal pulses. Comments: Palpable DP on L LE Pulmonary: Effort: Pulmonary effort is normal. No respiratory distress. Abdominal: General: Abdomen is flat. There is no distension. Palpations: Abdomen is soft. Tenderness: There is no abdominal tenderness. Musculoskeletal: Comments: Left lower extremity dressings c/d/I. Maryam wrap around left thigh Skin: General: Skin is warm. Neurological: Mental Status: She is alert. Sutures or yeni? Yes, dressing overtop sites on left thigh O2: 93-100 on RA / / / Data Review Data CBC with Differential: Lab Results Component Value Date WBC 15.3 (H) 04/22/2025 RBC 2.78 (L) 04/22/2025 HGB 9.2 (L) 04/22/2025 HCT 27.7 (L) 04/22/2025 PLT 166 04/22/2025 CMP: Lab Results Component Value Date NA 135 (L) 04/22/2025 K 4.2 04/22/2025 CL 104 04/22/2025 CO2 20 (L) 04/22/2025 BUN 22 04/22/2025 CREATININE 1.02 04/22/2025 GLUCOSE 163 (H) 04/22/2025 PROT 7.5 04/21/2025 CALCIUM 8.8 04/22/2025 BILITOT 0.8 04/21/2025 ALKPHOS 212 (H) 04/21/2025 AST 24 04/21/2025 ALT 17 04/21/2025 BMP: Hepatic Function Panel:Ionized Calcium: No components found for: IONCA Magnesium: No results found for: MG Phosphorus: No results found for: PHOS PT/INR: Lab Results Component Value Date PROTIME 11.3 04/21/2025 INR 1.1 04/21/2025 PTT: Lab Results Component Value Date APTT 27.9 04/21/2025 [APTT Last 3 Troponin: No results found for: TROPONINI Urine Culture: No components found for: CURINE Blood Culture: No components found for: CBLOOD, CFUNGUSBL Blood Culture from Central Line: No components found for: CBLOODLN Stool Culture: No components found for: CSTOOL Sputum Culture: No components found for: CSPUTUM Sputum Culture for AFB: No components found for: CAFBSM Wound Culture: n/a Radiology: ECG 12 lead Result Date: 04/21/2025 Sinus rhythm Left anterior fascicular block XR femur left 2+ views Result Date: 04/21/2025 Patient Name: MADAY ALFARO : 1940 Exam Date/Time: 04/21/2025 15:16 Procedure: XR FEMUR 2+ VW LEFT Ordering Provider: MOLINA TYLER Reason For Exam: post op EXAM: XR Left Femur, 2 Views CLINICAL INDICATION: post op TECHNIQUE: Frontal and lateral views of the left femur. COMPARISON: Left femur radiographs from 04/21/2025. Left hip radiographs from 04/21/2025. FINDINGS: BONES/JOINTS: Left femoral intramedullary ras with proximal and distal interlocking fixation screws. Hardware appears intact. Redemonstration of a left femoral intertrochanteric fracture. Improved alignment following fixation. Moderate left hip joint DJD. Left sacroiliac joint DJD. Degenerative change of the lower lumbar spine. Degenerative change of the pubic symphysis. Mild degenerative change of the medial and patellofemoral compartments of the knee. Tiny superior patellar enthesophyte. SOFT TISSUES: Expected postsurgical changes in the soft tissues. Several skin yeni. Intact left femoral fixation hardware. Report Dictated on Electronically Signed By: Lexus Rankin MD Electronically Signed Date/Time: 04/21/2025 3:37 PM EDT FL GUIDANCE OR USE ONLY - NON RESULTABLE Result Date: 04/21/2025 There is no interpretation needed for this exam. ECG 12 lead Sinus rhythm LAD, consider left anterior fascicular block Nonspecific T abnrm, anterolateral leads No change compared to previous ekg Electronically Signed On 04-21-2025 12:28:43 EDT by Elliott Navarro XR chest 1 view Result Date: 04/21/2025 Patient Name: MADAY ALFARO : 1940 [facility]#: [id number] Exam Date/Time: 04/21/2025 11:41 Procedure: XR CHEST 1 VIEW Ordering Provider: NAVARRO AUSTIN Reason For Exam: PRE-ANESTHESIA SEDATION HISTORY: preanesthesia Frontal view the chest shows tortuosity and enlargement of the thoracic aorta possible aneurysmal, increasing since 2019 chest x-ray with normal heart size with no infiltrates or pleural effusions. Report Dictated on Electronically Signed By: Jean Paul Payne MD Electronically Signed Date/Time: 04/21/2025 12:27 PM EDT XR femur left 2+ views Result Date: 04/21/2025 Patient Name: MADAY ALFARO : 1940 Exam Date/Time: 04/21/2025 11:41 Procedure: XR FEMUR 2+ VW LEFT Ordering Provider: NAVARRO AUSTIN Reason For Exam: evaluate the entire bone HISTORY: Left hip fracture Additional views of the left femur show no other fractures with changes of degenerative joint disease involving medial compartment of the knee. Report Dictated on Electronically Signed By: Jean Paul Payne MD Electronically Signed Date/Time: 04/21/2025 12:24 PM EDT XR hip left 2 or 3 views Result Date: 04/21/2025 Patient Name: MADAY ALFARO : 1940 Exam Date/Time: 04/21/2025 10:39 Procedure: XR HIP 2 OR 3 VW LEFT Ordering Provider: NAVARRO AUSTIN Reason For Exam: Hip trauma, fracture suspected, no prior imaging HISTORY: Trauma Frontal view the pelvis and views left hip shows COMMINUTED INTERTROCHANTERIC FRACTURE of the left hip with varus angulation. 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 Report Dictated on Electronically Signed By: Jean Paul Payne MD Electronically Signed Date/Time: 04/21/2025 10:52 AM EDT Problem List[2] ASSESSMENT: 84 yr old female s/p intertan nailing of the left intertrochanteric femur fracture, subsequent hypotension in the PACU PLAN: Neuro/Spine: - Pain control: tylenol, PRN oxy, PRN dilaudid - Elevate HOB 30 degrees Seizures - Continue home dilantin BID Anxiety/insomnia/depression - resume home zoloft, - prn temazepam nightly for sleep - Nightly melatonin - Delirium precautions Cardiovascular: - Hypotension HTN - MAP > 65 - Peripheral levophed as needed; off this morning 04/22 - Repeat EKG - Pre-op EKG reviewed-- LAD with anterior fascicular block however this is stable from previous - repeat EKG with similar findings of left anterior fascicular block - Troponin: downtrending, most recent 66 from peak of 101 - TTE ordered; 87% EF, no valvular abnormalities - Hold home HTN medications - Telemetry - Hold home aspirin, lisinopril Pulmonary: - standard O2 protocol - IS FEN/GI: - NPO with LR @ 50 ml/hr; restart reg diet today - Zofran PRN - Daily BMP, Mg, Phos - LA: downtrending, now cleared - Bowel regimen - miralax and senna : - No acute issues - Maintain hicks; pull hicks today - Monitor I/Os - Goal UOP > 0.5 ml/kg/hr - 225mL UOP overnight - continue q1 Is and Os Heme: - Hgb: 7.7 from 9.2 this morning from 10.4 postoperatively - will transfuse with 1u pRBC - q6 CBC, q6 HH - Ok for DVT ppx per ortho ID: -no acute issues - mupirocin BID x 5 days - ancef for 24hrs periop Endo: - hyperglycemia secondary to steroids, continue to monitor Lines/Devices: - PIV - hicks; pull today Prophylaxis: DVT: SCDs, hold ppx Has DVT PPX been started? No If no, why? S/p OR, HGB still dropping GI: not indicated Pressure Ulcer: continue to monitor, q2hr turns Musculoskeletal: - PT/OT - WBAT on LLE per Ortho WB Status: RUE:AT LUE: AT RLE: AT LLE: AT Is the patient in restraints?: No Medications Reconciled- Yes [] NO [x], Disposition: T2 ICU [1] Current Facility-Administered Medications: acetaminophen (Tylenol) tablet 1,000 mg, 1,000 mg, Oral, q8h, Lisa Wayne MD, 1,000 mg at 04/21/25 2105 ceFAZolin (Ancef) 2,000 mg in sodium chloride 0.9 % 100 mL IVPB, 2,000 mg, IntraVENous, q8h, Chris Molina PA-C, Stopped at 04/22/25 0637 HYDROmorphone (Dilaudid) injection 0.25 mg, 0.25 mg, IntraVENous, q3h PRN, Lisa Wayne MD lactated ringers infusion, 100 mL/hr, IntraVENous, Continuous, Lisa Wayne MD, Last Rate: 100 mL/hr at 04/22/25 0429, 100 mL/hr at 04/22/25 0429 melatonin tablet 5 mg, 5 mg, Oral, Nightly, Lisa Wayne MD mupirocin (Bactroban) 2 % ointment, , Nasal, BID, Lisa Wayne MD naloxone (Narcan) injection 0.4 mg, 0.4 mg, IntraVENous, q5 min PRN, Miller Lee DO norepinephrine (Levophed) 4 mg in 0.9% sodium chloride 250 mL infusion (Fvj-Gudlju-Zqvyb) (premix), 2-50 mcg/min, IntraVENous, Continuous, Migdalia Joseph MD, Stopped at 04/22/25 0504 oxyCODONE (Roxicodone) immediate release tablet 5 mg, 5 mg, Oral, q4h PRN OR oxyCODONE (Roxicodone) immediate release tablet 10 mg, 10 mg, Oral, q4h PRN, Lisa Wayne MD perflutren protein A microsphere (Optison) 3 mL in sodium chloride (PF) 0.9 % 10 mL IV, 0-10 mL, IntraVENous, Once PRN, Lisa Wayne MD phenytoin ER (Dilantin) capsule 200 mg, 200 mg, Oral, BID, Lisa Wayne MD, 200 mg at 04/21/25 2105 polyethylene glycol (PEG) 3350 (Miralax) packet 17 g, 17 g, Oral, Daily, Lisa Wayne MD senna-docusate sodium (Senokot-S) 8.6-50 MG tablet 2 tablet, 2 tablet, Oral, BID, Lisa Wayne MD sodium chloride 0.9 % infusion, 250 mL/hr, IntraVENous, PRN, Lisa Wayne MD thiamine (Vitamin B1) injection 100 mg, 100 mg, IntraVENous, Daily, Migdalia Joseph MD [2] Patient Active Problem List Diagnosis Chest pain Dilation of renal pelvis Closed displaced intertrochanteric fracture of left femur (HCC) Closed intertrochanteric fracture of hip, left, initial encounter ([facility]) Cosigned by Regina Sequeira MD at 04/23/2025 8:37 AM EDT Associated attestation - Regina Sequeira MD - 04/23/2025 8:37 AM EDT ATTENDING ADDENDUM I independently saw the above patient and reviewed the recent events, imaging, labs, vital signs; I performed a physical exam and ROS. My findings agree with the above note except for any details corrected below. Problem List[1] A complete review of systems was obtained and is negative except as stated in HPI. HPI: 84 y.o. female presents with L hip pain after fall from standing height on 04/21. She went to OR with orthopedic surgery on 04/21 for left intertrochanteric femur nailing with Dr. Meng. She was briefly hypotensive intraoperatively; but seemed to recover. However in PACU patient persistently hypotensive with systolic pressures in the 70s. No blood transfusions but did require some pushes of monica and epinephrine. Levophed started during evaluation. Patient pain level currently is well controlled. Denies any history of heart disease outside of HTN. Imaging reviewed and independently interpreted: None Problem list: Acute, acute on chronic, unstable or uncontrolled chronic problems/diagnoses: Left intratrochanteric hip fracture with subtrochanteric extension Mechanical fall Acute blood loss anemia Thrombocytopenia 2/2 blood loss Lactic acidosis TANYA Stable chronic problems, affecting patient care: [Medical History] [Medical History] Past Medical History Diagnosis Date Hypertension Seizures (HCC) HTN and seizures. She takes aspirin, dilantin, zoloft, lisinopril, and temazepam. 24h: HOLD ASA Acute blood loss anemia Hypotension - suspect multifactorial Peripheral levophed IVF LR 50cc/h Start reg diet Lactic acidosis resolved Hyponatremia +orthostatic Geriatrics consult Plan: Neurological system #Seizures - dilantin 200 mg #anxiety/insomnia/depression - zoloft 200 mg - temazepam 15 mg nightly PRN #Acute pain - Multimodal pain control # At risk for delirium/acute encephalopathy - Delirium precautions: limit nighttime disturbances and avoid anticholinergic meds, benzos, etc Circulatory system HTN/HLD - lisinopril 20 mg - HOLD - MAP > 65 - PRN anti-htn med Hypotension - suspect multifactorial - Peripheral levophed - ECHO EF 87% Respiratory system - O2 protocol - Aggressive pulmonary hygiene Gastrointestinal system #Reg diet Ar risk for constipation - Bowel regimen Renal function - Strict I/Os - DC Hicks Immunologic system [x] Mupirocin for empiric MRSA decolonization x5 days #opal-op ancef - Monitor for fevers Hematologic system #Acute blood loss anemia - Monitor hemoglobin Endocrine system #Hyperglycemia 2/2 steroids - Monitor glucose Integumentary system (GI and cutaneous) - Skin checks Musculoskeletal system - PTOT Ppx - DVT prophylaxis: SCDs MEDS: Scheduled PRN Scheduled Meds[2] PRN Meds[3] Continuous Continuous Meds[4] Patient evaluated on 04/22/2025 Critical Care time spent 42 min. The time involved in the performance of this care was exclusive of separately billable procedures, teaching time and treating other patients. The time was spent personally by the attending physician for the following activities: examination of the patient, ordering and/or performing treatment, reviewing the laboratory and radiographic studies, and if applicable, ventilator management and blood gas interpretation. Critical Care was necessary because of an illness or injury that actively impaired one or more vital organ systems such that there was a high probability of imminent life treatening deterioration in the patient's condition. The following organ systems are involved: CV Level of Medical Decision Making: risk of morbidity from additional diagnostic testing or treatment due to hypotension, acute blood loss anemia [x]High []Moderate []Low Complexity: Acute or chronic illness posing a threat to life (HIGH) Personally Reviewed/Independently interpreted patient's: [x]Epic notes []Radiology studies [x]Labs []EKG []Ordering tests []Other Discussed/ With: [x]Patient/Family [x]RN []Consultants []SW/TCC []Other Regina Sequeira MD Division of Trauma Department of Surgery [facility] ~~~~~~~~~~~~~~~~~~~~~~~~~~~~~~~~~ ~~~~~~~~~~~~~~~~~~~~~~~~~~~~~~~~~ ~~~~~ This note may have been dictated using [employer] Medical Practice Edition 2.6 and/or [employer] Voice Recognition Feature. The document was proofread; however, unrecognized voice recognition marble rubber errors may be present. [1] Patient Active Problem List Diagnosis Chest pain Dilation of renal pelvis Closed displaced intertrochanteric fracture of left femur (HCC) Closed intertrochanteric fracture of hip, left, initial encounter ([facility]) [2] acetaminophen, 1,000 mg, Oral, q8h melatonin, 5 mg, Oral, Nightly mupirocin, , Nasal, BID phenytoin ER, 200 mg, Oral, BID polyethylene glycol (PEG) 3350, 17 g, Oral, Daily senna-docusate sodium, 2 tablet, Oral, BID sertraline, 200 mg, Oral, Daily thiamine, 100 mg, IntraVENous, Daily [3] PRN medications: naloxone, oxyCODONE OR oxyCODONE, perflutren protein A microsphere (Optison) 3 mL in sodium chloride (PF) 0.9 % 10 mL IV, sodium chloride, sodium chloride, temazepam [4] dextrose 5 % and sodium chloride 0.45 % with KCl 20 mEq/L, 50 mL/hr, Last Rate: 50 mL/hr (04/22/252112) norepinephrine in sodium chloride 0.9 %, 2-50 mcg/min, Last Rate: 2 mcg/min (04/22/252113) Images from the original note were not included. Ortho Progress Note Patient: Maday Alfaro Date of : 1940 Acct: [id number] PCP: CHRISTIAN HARRISON NP Date of Admission: 04/21/2025 Date of Service: Pt seen/examined on 04/22/2025 SUBJECTIVE: No acute events overnight. Resting comfortably in bed. Pain well controlled. Denies paresthesias. Denies CP/SOB. Denies fevers or chills. Was admitted ot ICU overnight for low SBP in pacu. Denies lightheadeness or dizziness. Reports history of low Bps but denies pmh of LOC 2/2 BP or other issues related to hypotension. Bps have been 80-100s systolic overnight but pt currently on levo at 1 mcg/min OBJECTIVE: General: alert and oriented to person, place and time, well-developed and well-nourished, in no acute distress VITALS: BP 100/59 Pulse 75 Temp 36.3 C (97.3 F) (Temporal) Resp 18 SpO2 98% MSK exam: LLE Dressing: C/D/I gauze and tegaderms. Maryam wrap about L thigh SILT Sa/Sipcer/DP/SP/T DF/EHL/PF intact DP pulse palpable but thready; brisk capillary refill to toes and toes WWP Lab Results Component Value Date WBC 15.3 (H) 04/22/2025 HGB 9.2 (L) 04/22/2025 HCT 27.7 (L) 04/22/2025 PLT 166 04/22/2025 ALT 17 04/21/2025 AST 24 04/21/2025 NA 135 (L) 04/22/2025 K 4.2 04/22/2025 CL 104 04/22/2025 CREATININE 1.02 04/22/2025 BUN 22 04/22/2025 CO2 20 (L) 04/22/2025 INR 1.1 04/21/2025 Lab Results Component Value Date RH POS 04/21/2025 RH POS 04/21/2025 ASSESSMENT AND PLAN: This is a 84 y.o. female s/p L hip CMN 04/21 Post op Plan: -WBAT LLE -Ancef x 24 hrs -PT/OT -Dressing: Okay to remove dressing POD#2, if dry leave open to air, if saturated replace PRN -PACU xray -DVT, medical, and pain management per 1 -F/u with Dr. Meng in 2 weeks -d/c instructions in chart -Please page manager of production ortho resident with questions/concerns Janneth Centeno MD Orthopaedic Surgery PGY-2 Epic Chat documented in this encounter [facility] 04-29-2025 Note Patient declined smo vazquez cessation counseling. Handout given with contact information for future reference. [facility] 04-29-2025 Progress note Formatting of t his note might be different from the original. Discharge med list transmitted to [facility] via [facility] per [facility] request. 7000 was entered into [facility] for the [facility]. [facility] 04-29-2025 Progress note Formatting of t his note might be different from the original. Transport requested in [facility] as Will Call for [facility] per [facility] request. [facility] 04-29-2025 Progress note Formatting of t his note might be different from the original. [facility] is [facility] tasked to submit for [employer] auth and to do 7000. Transport requested in will call . [facility] 04-29-2025 Note Referral placed to [facility] via [facility] per TCC request. Updated notes sent to [facility]. [facility] 04-29-2025 Progress note Formatting of t his note might be different from the original. Referral placed to [facility] via [facility] per [facility] request. Updated notes sent to [facility]. [facility] 04-29-2025 Progress note Formatting of t his note might be different from the original. Family called back [facility] [address] [facility] [address] to send clinicals and med rec Will submit auth today if accepted Adore to be done And 7000 [facility] 04-29-2025 Nurse Note Wound Care consulted for Pressure Injury Prevention. Pt's Galileo score= 16 on 04/28/25 Pt's pressure points assessed. PT turned for posterior assessment with 1 assist. Pt's Heels, Buttocks/coccyx, Back, Elbows, Occiput and ears all intact. Blanchable erythema to sacrum and bilateral heels. Ecchymosis noted to pubic area. Pt incontinent of stool at time of visit, Pads changed, incontinence care provided, purewick changed and ointment applied. Female external catheter in place, medial thighs and labia intact. Prevention Measures in place, including: [place] sheet with pillows/wedges, Foam heel protectors (applied), Heels elevated off bed on pillows, Sacral foam (changed), Zinc/Moisture Barrier ointment (applied), Waffle chair cushion (obtained for pt). Skin Care precaution order set in place. Dietitian consult in place. PT/OT consult in place. D/W nursing staff. Will continue to follow pt. Please Vocera for any questions or concerns. Xiomara Acharya RN, BSN [facility] 04-29-2025 Nurse Note Wound Care consulted for Pressure Injury Prevention. Pt's Galileo score= 16 on 04/28/25 Pt's pressure points assessed. PT turned for posterior assessment with 1 assist. Pt's Heels, Buttocks/coccyx, Back, Elbows, Occiput and ears all intact. Blanchable erythema to sacrum and bilateral heels. Ecchymosis noted to pubic area. Pt incontinent of stool at time of visit, Pads changed, incontinence care provided, purewick changed and ointment applied. Female external catheter in place, medial thighs and labia intact. Prevention Measures in place, including: [place] sheet with pillows/wedges, Foam heel protectors (applied), Heels elevated off bed on pillows, Sacral foam (changed), Zinc/Moisture Barrier ointment (applied), Waffle chair cushion (obtained for pt). Skin Care precaution order set in place. Dietitian consult in place. PT/OT consult in place. D/W nursing staff. Will continue to follow pt. Please Vocera for any questions or concerns. Xiomara Acharya RN, BSN documented in this encounter [facility] 04-29-2025 Progress note Formatting of t his note might be different from the original. Care Management Progress Note Short Medical why still here: discharged however NO FOC . Family has the list aware of the referrals , therapy notes done- adore signed, need choice and then can submit today for auth - Planned Discharge Disposition: Alf Facility Barriers/Today we still Wait: Facility pre-cert, Patient/caregiver facility choice (family HAS NOT GIVEN FOC , cannot submit auth until have it) Length of Stay (Days): 8 GMLOS: 4.4 [facility] 04-28-2025 Progress note Formatting of t his note might be different from the original. Referral placed to the following SNF via [facility] per TCC request: [facility] (formerly [facility]) Await review and response regarding ability to accept. TCC notified. [facility] 04-28-2025 Progress note Formatting of t his note might be different from the original. Care Management Progress Note Short Medical why still here: ready for discharge , pain controlled Planned Discharge Disposition: Alf Facility referrals sent- list at bedside therapy notes done- wait on response adore and auth - NO FOC Will call ed bruce per request of the patient [phone]. Updated and will give FOC Barriers/Today we still Wait: Attending completion of discharge workflow, Patient/caregiver facility choice, Facility pre-cert Length of Stay (Days): 7 GMLOS: 4.4 [facility] 04-26-2025 Progress note Formatting of t his note might be different from the original. Care Management Progress Note Short Medical why still here: Awaiting Placement. Planned Discharge Disposition: Inpatient Rehab Facility ([facility]) Messaged [facility] liaison regarding DC. Per [facility] liaison p2p is pending and scheduled to be completed on Monday. Requested PT/OT updates Monday/ Monday for facility approval. Barriers/Today we still Wait: P2P is pending and scheduled to be completed on Monday. Length of Stay (Days): 5 GMLOS: 4.4 [facility] 04-25-2025 Progress note Formatting of t his note might be different from the original. Care Management Progress Note Short Medical why still here: Admitted for hip fx s/p ORIR 04/21/2025. Remains for electrolyte replacement, therapy evals ongoing. Ortho, geriatrics, and cardiology following/consults. Planned Discharge Disposition: Inpatient Rehab Facility ([facility]) Spoke with patient and daughter Ed [phone] regarding discharge planning. Re-introduced myself and role. Discussed rehab hospital vs SNF. Patient and daughter Ed agreeable to [facility]. CM notified [facility] liaison to start facility precert today. CM tasked weekend team to follow. Transport needed at discharge. Addendum: Peer to peer offered with intent to deny. CM secure messaged SICU resident and hospitalist planning to take over care per transfer note, included P2P info to be scheduled by Monday, 04/28 2pm. P2P phone # [phone], Ref # [id number]. Barriers/Today we still Wait: Administering IV medications, Clinical stability, [facility] [employer] [facility] recommendations (comment), Facility pre-cert, Patient/caregiver facility choice electrolyte replacement, therapy evals ongoing. Ortho, geriatrics, and cardiology following/consults. Length of Stay (Days): 4 GMLOS: 4.4 Case management will continue to follow for discharge planning. [facility] 04-25-2025 History of Presen t illness Narrative 30-day outpatient event monitor ordered. documented in this encounter [facility] 04-24-2025 Consult note Associated Order (s): IP CONSULT TO CARDIOLOGY [facility] [place] [facility] Cardiology /Electrophysiology Consult Note Reason for Consult/Chief Complaint: Post-operative afib placed on amiodarone gtt Referring provider: Sebas Oh Established preparator: None History of Present Illness: Maday Alfaro is a 84 y.o. female w/ PMH of HTN and seizure disorder (on dilantin). She presented to [facility] 04/21 with a left femoral head fracture s/p L CMN (04/21/25, [place]). Cardiology is consulted for, afib on amio gtt, positive orthos. She has never been seen by cardiology before. Post-opeartively she has been hypotensive with blood pressures as low as 71/50. She was started on a levophed gtt for support. Developed Afib w/ RVR (04/23/25). Placed on amiodarone gtt with conversion to normal sinus rhythm the next day. She has now been weaned from levophed and remains on the amiodarone gtt. HR remains in sinus rythym. TTE (04/21/25) w/ hyperdynamic EF of 87%, normal wall motion, and no valvular abnormalities. On exam, she is resting comfortably in bed. States that she has not felt any palpitations or chest discomfort. Has never been previously diagnosed with atrial fibrillation and was not aware that she was in a fib. Denies pre-syncopal sensations. Looking forward to working with PT today. Assessment/Plan HF NYHA Class [] I [] II [] III [] IV []Unable to assess Paroxysmal non-valvular atrial fibrillation - Likely provoked in the setting of recent surgery, hypovolemia, blood loss (Admission Hgb 14), and levophed usage - Currently in sinus rhythm. Off levophed. - Ok to allow current amiodarone gtt to - Suspect that she is volume down, would aggressively re-hydrate. Last fluid bolus was ~ 24 hours prior with 500 mL NS. Will repeat. - Strict electrolyte replacement. Maintain K>4, Phos>3, Mg>2 - Will arrange outpatient follow up for office visit and event monitor Medications: Scheduled Meds[1] Infusion Medications: Continuous Meds[2] Physical Examination: Vitals: 04/24/25 0900 04/24/25 1000 04/24/25 1100 04/24/25 1200 BP: 124/67 157/82 129/92 134/75 BP Location: Patient Position: Pulse: 61 60 61 63 Resp: 17 18 19 16 Temp: TempSrc: SpO2: 97% 99% 99% 98% Weight: Height: Intake/Output Summary (Last 24 hours) at 04/24/2025 1325 Last data filed at 04/24/2025 0700 Gross per 24 hour Intake -- Output 1525 ml Net -1525 ml Wt Readings from Last 3 Encounters: 04/22/25 136 lb (61.7 kg) 08/29/24 136 lb (61.7 kg) 07/18/24 136 lb (61.7 kg) Physical Exam Constitutional: No distress. dehydrated Psychiatric: A &O x 3. Medical insight fair NMT: Oral mucosa is pink and moist Neck: no JVD. Respiratory: Lungs are CTAB Cardiac exam: Rhythm: regular ; Normal S1 and S2 Murmur: no Other: No rub; no gallop Vasc: Peripheral pulses intact. Palpable left DP. Extremities: No LE edema Skin: Warm to touch and well perfused Laboratory Tests: TROPONIN I, CONVENTIONAL SENSITIVITY CK Date Value Ref Range Status 04/21/2025 112 30 - 185 U/L Final TROPONIN I Date Value Ref Range Status 06/22/2022 <0.012 0.000 - 0.034 ng/mL Final TROPONIN I, HIGH SENSITIVITY Troponin HS Serial Baseline Date Value Ref Range Status 04/22/2025 90 (H) <=14 ng/L Final Comment: In individuals presenting with symptoms > 2h, a baseline troponin <= 5 ng/L suggests acute cardiac injury is unlikely and further serial testing is generally not indicated. 04/21/2025 68 (H) <=14 ng/L Final Comment: In individuals presenting with symptoms > 2h, a baseline troponin <= 5 ng/L suggests acute cardiac injury is unlikely and further serial testing is generally not indicated. 2h Troponin HS (Serial 2nd Troponin) Date Value Ref Range Status 04/22/2025 76 (H) <=14 ng/L Final Comment: Rising or falling troponin delta between 2 - 15 ng/L as compared to baseline value requires a 3rd serial troponin 04/21/2025 82 (H) <=14 ng/L Final Comment: Rising or falling troponin delta between 2 - 15 ng/L as compared to baseline value requires a 3rd serial troponin No results found for: TROPDELTBASE 4h Troponin HS (Serial 3rd Troponin) Date Value Ref Range Status 04/22/2025 66 (H) <=14 ng/L Final Comment: Rising or falling troponin delta between 2 - 15 ng/L as compared to 2h troponin value requires further evaluation. 04/21/2025 101 (H) <=14 ng/L Final Comment: Rising or falling troponin delta greater than 15 ng/L as compared to 2h troponin value is significant for acute cardiac injury. No results found for: TROPDELTSEC Recent Labs 04/21/25 1856 04/22/25 0024 04/23/25 0049 04/23/25220604/24/25 0447 NA 135* 135* 132* 131* 131* K 4.2 4.2 3.6 3.7 3.6 CL 105 104 105 105 104 CO2 19* 20* 22* 20* 23 BUN 19 22 21 15 15 CREATININE 0.79 1.02 0.59 0.52* 0.51* EGFR 74.3 54.7* 89.6 >90.0 >90.0 Recent Labs 04/23/25 1204 04/23/25 1805 04/23/254 04/24/25 0447 04/24/25 1142 WBC 8.7 6.6 7.5 6.0 6.3 HGB 8.8* 8.8* 8.5* 8.8* 8.3* HCT 25.3* 25.5* 24.0* 25.3* 24.5* MCV 95.1 95.5 94.5 95.5 96.8 PLT 93* 84* 98* 87* 97* No results found for: HGBA1C Lab Results Component Value Date TSH 1.44 04/24/2025 No results found for: CHOL No results found for: HDL No results found for: LDLCALC No results found for: TRIG No results found for: CHOLHDL No results found for: LDLCHOLESTER No results for input(s): BNP in the last 72 hours. No results for input(s): INR in the last 72 hours. Results from last 7 days Lab Units 04/21/25 1016 AST U/L 24 ALT U/L 17 No results found for: IRON, TIBC, FERRITIN Radiology: CXR: personally reviewed: Cardiac Tests Personally Reviewed: Last EKG 04/21/25 ECG 12-LEAD 04/23/2025 5:58 PM (Final) Impression Atrial fibrillation LAD, consider left anterior fascicular block Electronically Signed On 04-23-2025 17:58:46 EDT by Brandon Davidson Signed by: Brandon Davidson MD on 04/23/2025 5:58 PM Telemetry findings: Normal sinus rhythm. Episodes of atrial fibrillation 04/23/25 Reports reviewed: Last Echo 04/21/25 TRANSTHORACIC ECHOCARDIOGRAM (TTE) COMPLETE (CONTRAST/BUBBLE/3D PRN) 04/22/2025 1:53 PM (Final) Interpretation Summary Left Ventricle: Left ventricle is smaller than normal. Basal septal thickening. Hyperdynamic left ventricular systolic function. EF by 2D Simpsons Biplane is 87%. Normal wall motion. Right Ventricle: Right ventricle size is normal. Normal systolic function. No significant valvular abnormalities. Signed by: Odalys Lennon MD on 04/22/2025 1:53 PM Last Cath No results found for this or any previous visit. Last Stress Test No results found for this or any previous visit. Last EP study No results found for this or any previous visit. EF BP Date Value Ref Range Status 04/22/2025 87 55 - 100 % Final Krupa Lopez MD DATE of SERVICE: 04/24/2025 [1] acetaminophen, 1,000 mg, Oral, TID aspirin, 81 mg, Oral, Daily enoxaparin, 30 mg, SubCUTAneous, q12h magnesium sulfate, 4,000 mg, IntraVENous, Once melatonin, 5 mg, Oral, Nightly mupirocin, , Nasal, BID phenytoin ER, 200 mg, Oral, BID polyethylene glycol (PEG) 3350, 17 g, Oral, Daily senna-docusate sodium, 2 tablet, Oral, BID sertraline, 200 mg, Oral, Daily thiamine, 100 mg, IntraVENous, Daily [2] amiodarone, 0.5 mg/min, Last Rate: 0.5 mg/min (04/24/25 0730) norepinephrine in sodium chloride 0.9 %, 2-50 mcg/min, Last Rate: Stopped (04/24/25 0224) Cosigned by Tessa Billingsley MD at 04/25/2025 9:17 AM EDT Associated attestation - Tessa Billingsley MD - 04/25/2025 9:17 AM EDT I, Dr. Tessa Billingsley, saw and evaluated the patient on 04/24/2025. I personally obtained the keys and critical portions of the history and physical exam. I reviewed the chart, the fellow's documentation, and discussed the patient with the fellow. I agree with the fellow's medical decision making and have edited the note to reflect my clinical findings and my assessment and plan. In summary, Maday Alfaro presented to [facility] 04/21 with a left femoral head fracture s/p L CMN (04/21/25, [place]). Cardiology consulted for AF. Likely precipitated by recent surgery, hypovolemia, blood loss (admission Hgb 14), and norepinephrine gtt. Currently in NSR. Monitor off amiodarone. Rehydrate. Follow-up on telemetry and patient status in the AM. Plan for outpatient event monitor. Tessa Billingsley MD Department of Cardiovascular Disease [facility] [place] 10:19 PM 04/24/25 [facility] Work Phone: 04-24-2025 Consult note Associated Order (s): IP CONSULT TO CARDIOLOGY [facility] Cardiology /Electrophysiology Consult Note Reason for Consult/Chief Complaint: Post-operative afib placed on amiodarone gtt Referring provider: Sebas Oh Established preparator: None History of Present Illness: Maday Alfaro is a 84 y.o. female w/ PMH of HTN and seizure disorder (on dilantin). She presented to [facility] 04/21 with a left femoral head fracture s/p L CMN (04/21/25, [place]). Cardiology is consulted for, afib on amio gtt, positive orthos. She has never been seen by cardiology before. Post-opeartively she has been hypotensive with blood pressures as low as 71/50. She was started on a levophed gtt for support. Developed Afib w/ RVR (04/23/25). Placed on amiodarone gtt with conversion to normal sinus rhythm the next day. She has now been weaned from levophed and remains on the amiodarone gtt. HR remains in sinus rythym. TTE (04/21/25) w/ hyperdynamic EF of 87%, normal wall motion, and no valvular abnormalities. On exam, she is resting comfortably in bed. States that she has not felt any palpitations or chest discomfort. Has never been previously diagnosed with atrial fibrillation and was not aware that she was in a fib. Denies pre-syncopal sensations. Looking forward to working with PT today. Assessment/Plan HF NYHA Class [] I [] II [] III [] IV []Unable to assess Paroxysmal non-valvular atrial fibrillation - Likely provoked in the setting of recent surgery, hypovolemia, blood loss (Admission Hgb 14), and levophed usage - Currently in sinus rhythm. Off levophed. - Ok to allow current amiodarone gtt to - Suspect that she is volume down, would aggressively re-hydrate. Last fluid bolus was ~ 24 hours prior with 500 mL NS. Will repeat. - Strict electrolyte replacement. Maintain K>4, Phos>3, Mg>2 - Will arrange outpatient follow up for office visit and event monitor Medications: Scheduled Meds[1] Infusion Medications: Continuous Meds[2] Physical Examination: Vitals: 04/24/25 0900 04/24/25 1000 04/24/25 1100 04/24/25 1200 BP: 124/67 157/82 129/92 134/75 BP Location: Patient Position: Pulse: 61 60 61 63 Resp: 17 18 19 16 Temp: TempSrc: SpO2: 97% 99% 99% 98% Weight: Height: Intake/Output Summary (Last 24 hours) at 04/24/2025 1325 Last data filed at 04/24/2025 0700 Gross per 24 hour Intake -- Output 1525 ml Net -1525 ml Wt Readings from Last 3 Encounters: 04/22/25 136 lb (61.7 kg) 08/29/24 136 lb (61.7 kg) 07/18/24 136 lb (61.7 kg) Physical Exam Constitutional: No distress. dehydrated Psychiatric: A &O x 3. Medical insight fair NMT: Oral mucosa is pink and moist Neck: no JVD. Respiratory: Lungs are CTAB Cardiac exam: Rhythm: regular ; Normal S1 and S2 Murmur: no Other: No rub; no gallop Vasc: Peripheral pulses intact. Palpable left DP. Extremities: No LE edema Skin: Warm to touch and well perfused Laboratory Tests: TROPONIN I, CONVENTIONAL SENSITIVITY CK Date Value Ref Range Status 04/21/2025 112 30 - 185 U/L Final TROPONIN I Date Value Ref Range Status 06/22/2022 <0.012 0.000 - 0.034 ng/mL Final TROPONIN I, HIGH SENSITIVITY Troponin HS Serial Baseline Date Value Ref Range Status 04/22/2025 90 (H) <=14 ng/L Final Comment: In individuals presenting with symptoms > 2h, a baseline troponin <= 5 ng/L suggests acute cardiac injury is unlikely and further serial testing is generally not indicated. 04/21/2025 68 (H) <=14 ng/L Final Comment: In individuals presenting with symptoms > 2h, a baseline troponin <= 5 ng/L suggests acute cardiac injury is unlikely and further serial testing is generally not indicated. 2h Troponin HS (Serial 2nd Troponin) Date Value Ref Range Status 04/22/2025 76 (H) <=14 ng/L Final Comment: Rising or falling troponin delta between 2 - 15 ng/L as compared to baseline value requires a 3rd serial troponin 04/21/2025 82 (H) <=14 ng/L Final Comment: Rising or falling troponin delta between 2 - 15 ng/L as compared to baseline value requires a 3rd serial troponin No results found for: TROPDELTBASE 4h Troponin HS (Serial 3rd Troponin) Date Value Ref Range Status 04/22/2025 66 (H) <=14 ng/L Final Comment: Rising or falling troponin delta between 2 - 15 ng/L as compared to 2h troponin value requires further evaluation. 04/21/2025 101 (H) <=14 ng/L Final Comment: Rising or falling troponin delta greater than 15 ng/L as compared to 2h troponin value is significant for acute cardiac injury. No results found for: TROPDELTSEC Recent Labs 04/21/25 1856 04/22/25 0024 04/23/25 0049 04/23/25 2207 04/24/25 0447 NA 135* 135* 132* 131* 131* K 4.2 4.2 3.6 3.7 3.6 CL 105 104 105 105 104 CO2 19* 20* 22* 20* 23 BUN 19 22 21 15 15 CREATININE 0.79 1.02 0.59 0.52* 0.51* EGFR 74.3 54.7* 89.6 >90.0 >90.0 Recent Labs 04/23/25 1204 04/23/25 1805 04/23/25 2204 04/24/25 0447 04/24/25 1142 WBC 8.7 6.6 7.5 6.0 6.3 HGB 8.8* 8.8* 8.5* 8.8* 8.3* HCT 25.3* 25.5* 24.0* 25.3* 24.5* MCV 95.1 95.5 94.5 95.5 96.8 PLT 93* 84* 98* 87* 97* No results found for: HGBA1C Lab Results Component Value Date TSH 1.44 04/24/2025 No results found for: CHOL No results found for: HDL No results found for: LDLCALC No results found for: TRIG No results found for: CHOLHDL No results found for: LDLCHOLESTER No results for input(s): BNP in the last 72 hours. No results for input(s): INR in the last 72 hours. Results from last 7 days Lab Units 04/21/25 1016 AST U/L 24 ALT U/L 17 No results found for: IRON, TIBC, FERRITIN Radiology: CXR: personally reviewed: Cardiac Tests Personally Reviewed: Last EKG 04/21/25 ECG 12-LEAD 04/23/2025 5:58 PM (Final) Impression Atrial fibrillation LAD, consider left anterior fascicular block Electronically Signed On 04-23-2025 17:58:46 EDT by Brandon Davidson Signed by: Brandon Davidson MD on 04/23/2025 5:58 PM Telemetry findings: Normal sinus rhythm. Episodes of atrial fibrillation 04/23/25 Reports reviewed: Last Echo 04/21/25 TRANSTHORACIC ECHOCARDIOGRAM (TTE) COMPLETE (CONTRAST/BUBBLE/3D PRN) 04/22/2025 1:53 PM (Final) Interpretation Summary Left Ventricle: Left ventricle is smaller than normal. Basal septal thickening. Hyperdynamic left ventricular systolic function. EF by 2D Simpsons Biplane is 87%. Normal wall motion. Right Ventricle: Right ventricle size is normal. Normal systolic function. No significant valvular abnormalities. Signed by: Odalys Lennon MD on 04/22/2025 1:53 PM Last Cath No results found for this or any previous visit. Last Stress Test No results found for this or any previous visit. Last EP study No results found for this or any previous visit. EF BP Date Value Ref Range Status 04/22/2025 87 55 - 100 % Final Krupa Lopez MD DATE of SERVICE: 04/24/2025 [1] acetaminophen, 1,000 mg, Oral, TID aspirin, 81 mg, Oral, Daily enoxaparin, 30 mg, SubCUTAneous, q12h magnesium sulfate, 4,000 mg, IntraVENous, Once melatonin, 5 mg, Oral, Nightly mupirocin, , Nasal, BID phenytoin ER, 200 mg, Oral, BID polyethylene glycol (PEG) 3350, 17 g, Oral, Daily senna-docusate sodium, 2 tablet, Oral, BID sertraline, 200 mg, Oral, Daily thiamine, 100 mg, IntraVENous, Daily [2] amiodarone, 0.5 mg/min, Last Rate: 0.5 mg/min (04/24/25 0730) norepinephrine in sodium chloride 0.9 %, 2-50 mcg/min, Last Rate: Stopped (04/24/25 0224) Cosigned by Tessa Billingsley MD at 04/25/2025 9:17 AM EDT Associated attestation - Tessa Billingsley MD - 04/25/2025 9:17 AM EDT I, Dr. Tessa Billingsley, saw and evaluated the patient on 04/24/2025. I personally obtained the keys and critical portions of the history and physical exam. I reviewed the chart, the fellow's documentation, and discussed the patient with the fellow. I agree with the fellow's medical decision making and have edited the note to reflect my clinical findings and my assessment and plan. In summary, Maday Alfaro presented to [facility] 04/21 with a left femoral head fracture s/p L CMN (04/21/25, [place]). Cardiology consulted for AF. Likely precipitated by recent surgery, hypovolemia, blood loss (admission Hgb 14), and norepinephrine gtt. Currently in NSR. Monitor off amiodarone. Rehydrate. Follow-up on telemetry and patient status in the AM. Plan for outpatient event monitor. Tessa Billingsley MD Department of Cardiovascular Disease [facility] [place] 10:19 PM 04/24/25 Associated Order(s): IP CONSULT TO GERIATRICS [facility] Geriatric Medicine Inpatient Consult Service Admission Date: 04/21/2025 Admission Status: INPATIENT Chief Complaint: Chief Complaint Patient presents with Hip Pain Hip pain post fall. Pt was down for about four hours. Pt has c/o left hip and leg pain . Shortening and rotation noted . Reason for Appointment Geriatrics consulted for Trauma due to fall Assessment & Plan Principal Problem: Closed intertrochanteric fracture of hip, left, initial encounter ([facility]) Left hip fracture s/p ORIF on 04/21 - Management per primary service - Patient in ICU requiring norepinephrine to maintain BPs - Orthopedics following, recommending weightbearing as tolerated and outpatient follow-up in 2 weeks - Agree with scheduled acetaminophen and oxycodone as needed for breakthrough pain Falls, debility, functional decline -Counseled regarding falls risk -Good safety awareness -PT/OT consulted, recommending SNF after discharge -Check orthostatic vital signs -Check vitamin D level -Continue fall precautions -Routine follow up for vision and hearing assessments -Recommended engaging in routine exercise program including aerobic activities such as walking as well as strength, flexibility and balance training -Maintain sleep hygiene with goal approx 7-8 hours of sleep nightly -For bone health maintain daily Calcium intake 1200mg daily in divided doses and to include dietary intake and Vitamin D 800iu daily Constipation - Management per primary service - Chronic, poorly controlled. Patient reports normally having a hard BM every 4 to 5 days at home. No BM charted this admission, patient unsure last time she had a BM. - Agree with scheduled Senokot and MiraLAX Depression and anxiety - Chronic, stable - Continue sertraline 200 mg every morning - Continue temazepam 15 mg nightly Seizure disorder - Chronic, poorly controlled - Patient reports seizures at home every few months, estimates last seizure about 1 month ago. She does not follow with neurology as an outpatient, recommend establishing with neurologist - Recommend no driving - Continue phenytoin At Risk for Delirium -Risk factors include: Fall, prolonged time down, fracture, pain, hospitalization, surgery, medications, hyponatremia -Melatonin nightly scheduled for insomnia -Delirium Protocol -Avoid sedating/anticholinergic medications -Encourage family visits -Encourage sleep hygiene -Minimize barriers to nutrition -Optimize sensory input and access to assistive devices where indicated -Encourage time up in chair - including at meals - as able -Unless contraindicated, encourage regular ambulation with assistance -D/c Hicks, restraints, IV lines, as able I spent total time of 55 minutes face to face with the patient and/or family discussing the diagnosis and importance of compliance with the treatment plan as well as documenting on the day of the visit. In addition, that total time includes the following: -Reviewing previous notes, -Reviewing labs, -Reviewing previous cognitive tests, -Obtaining and/or reviewing separately obtained history, -Ordering prescription medications, tests and procedures, -Communicating results to the patient/family/caregiver, -Counseling/educating the patient/family/caregiver, -Documenting clinical information in the patients electronic record, -Coordination of care for the patient, and -Performing a medically appropriate exam and/or evaluation Subjective: HPI 84 y.o. year-old female with a past medical history of seizures and hypertension who presented to the emergency department on 04/21 from home after a fall. Patient was reportedly found down after 4 hours, was walking in her kitchen, lost her balance, and fell down. Patient was found intertrochanteric fracture of hip with varus angulation, she was admitted for further management. - Orthopedics was consulted, patient was taken to the OR 04/21 for ORIF left femur. - Patient was briefly hypotensive intraoperatively, persistently hypotensive in PACU requiring Levophed. Patient seen by physical therapy, mod to max assist, recommending SNF after discharge. Conversation with patient and son: - patient did not have any concerns this morning, feels like she wants to go home. Having very mild pain, rated 2/10 in right shoulder, no pain in hip. Reported normal appetite today, no problems swallowing. Patient deals with chronic constipation, goes about every 4-5, will take a basic laxative at home about every other week. Patient denied any urinary symptoms. Patient denied any problems with depression or anxiety, seems like sertraline fixed any mood problems. Patient takes temazepam nightly to fall asleep, will be fatigued the next day if she's up too much urinating. Patient denied any confusion this admission, denied any history of memory problems. - mobility is unsteady, uses a walker at home. Multiple falls at home, last one in June 2024. All seem to be due to poor balance, denied any LOC. May be having seizure during some falls, thinks most recent fall about 1 month ago. Thinks she has seizures every few months. Patient denied any neuropathy or visual impairment. - smokes about 1 pack cigarettes daily, no alcohol or drug use. Advance Care Planning Healthcare Power of Supervisor [place] Department: No Financial Power of Supervisor [place] Department: No Living Will:No Code Status: No Order Allergies[1] Current Medications[2] Medical History[3] Surgical History[4] Social History Tobacco Use Smoking status: Every Day Types: Cigarettes Smokeless tobacco: Never Substance Use Topics Alcohol use: No Social History Social History Narrative Not on file Family History Family History[5] Family Status Relation Name Status Mother (Not Specified) Father (Not Specified) No partnership data on file Review of Systems Constitutional: Positive for fatigue. Negative for appetite change. HENT: Negative for congestion, rhinorrhea and sore throat. Respiratory: Negative for cough and shortness of breath. Cardiovascular: Negative for chest pain and leg swelling. Gastrointestinal: Positive for constipation. Negative for abdominal pain, diarrhea, nausea and vomiting. Genitourinary: Negative for difficulty urinating and dysuria. Musculoskeletal: Positive for arthralgias and myalgias. Skin: Positive for wound. Neurological: Negative for dizziness, weakness and headaches. Psychiatric/Behavioral: Negative for agitation, confusion and sleep disturbance. Functional Status Prior to Admission: (I: Independent, A: Assisted, D: Dependent) ADLs I A D Notes Bathing [x] [] [] Dressing [x] [] [] Toileting [x] [] [] Transfers [] [x] [] Needs help if sitting in higher chair or stool Feeding [x] [] [] Ambulation [x] [] [] Assistive devices: walker IADLs I A D Telephone [x] [] [] Transportation [] [] [x] Not driving since last June Shopping [] [x] [] Meal prep [x] [] [] Housework [x] [] [] Medications [x] [] [] Patient uses a pill container to keep organized Finances [x] [] [] Objective: BP 129/60 Pulse 72 Temp 37.1 C (98.7 F) (Temporal) Resp 17 Ht 5' 6 (1.676 m) Wt 136 lb (61.7 kg) SpO2 95% BMI 21.95 kg/m Intake/Output Summary (Last 24 hours) at 04/23/2025 0943 Last data filed at 04/23/2025 0543 Gross per 24 hour Intake 3383.08 ml Output 1075 ml Net 2308.08 ml Wt Readings from Last 3 Encounters: 04/22/25 136 lb (61.7 kg) 08/29/24 136 lb (61.7 kg) 07/18/24 136 lb (61.7 kg) Physical Exam Constitutional: General: She is not in acute distress. HENT: Nose: No congestion or rhinorrhea. Mouth/Throat: Mouth: Mucous membranes are moist. Pharynx: Oropharynx is clear. Comments: Dentures in place Eyes: Extraocular Movements: Extraocular movements intact. Cardiovascular: Rate and Rhythm: Normal rate and regular rhythm. Heart sounds: No murmur heard. Pulmonary: Effort: No respiratory distress. Breath sounds: No wheezing, rhonchi or rales. Abdominal: General: Bowel sounds are normal. Palpations: Abdomen is soft. Tenderness: There is no abdominal tenderness. There is no guarding. Hernia: A hernia is present. Musculoskeletal: Right lower leg: No edema. Left lower leg: No edema. Neurological: General: No focal deficit present. Mental Status: She is alert and oriented to person, place, and time. Cranial Nerves: No cranial nerve deficit. Sensory: No sensory deficit. Motor: No weakness. Psychiatric: Mood and Affect: Mood normal. Labs and Imaging: Recent Results (from the past 24 hours) CBC Collection Time: 04/22/25 11:17 AM Result Value Ref Range Auto WBC 8.0 3.6 - 10.7 10*3/uL RBC 2.02 (L) 3.80 - 5.20 10*6/uL Hemoglobin 7.0 (L) 11.7 - 16.0 g/dL Hematocrit 19.5 (L) 35.0 - 47.0 % MCV 96.5 77.0 - 99.0 fL MCH 34.7 (H) 26.0 - 34.0 pg MCHC 35.9 30.5 - 36.0 % RDW 13.3 11.5 - 15.0 % Platelets 96 (L) 140 - 440 10*3/uL MPV 11.2 9.0 - 12.7 fL Lactic acid with reflex Collection Time: 04/22/25 11:17 AM Result Value Ref Range LACTIC ACID 1.5 0.5 - 2.2 mmol/L Prepare RBC: 1 Units Collection Time: 04/22/25 11:29 AM Result Value Ref Range PRODUCT CODE [id number] Unit Number [id number] Unit ABO O Unit RH POS Crossmatch interpretation COMP Dispense Status Crossmatch Blood Expiration Date [id number] Product Blood Type 5100 Unit Volume 300 mL Transthoracic echocardiogram (TTE) complete with contrast, bubble, strain, and 3D PRN Collection Time: 04/22/25 1:00 PM Result Value Ref Range LVOT Diameter 2.0 cm EF BP 87 55 - 100 % LV Ejection Fraction A2C 85 % LV Ejection Fraction A4C 88 % LV EDV A2C 70 mL LV EDV A4C 55 mL LV EDV BP 64 56 - 104 mL LV ESV A2C 11 mL LV ESV A4C 6 mL LV ESV BP 8 (A) 19 - 49 mL LVOT Cardiac Output 6.7 liter/minute LVOT Peak Gradient 6 mmHg LVOT Mean Gradient 4 mmHg LVOT SV 89.2 ml LVOT Peak Velocity 1.3 m/s LVOT VTI 28.4 cm RV Longitudinal Dimension 6.8 cm RV Mid Dimension 2.8 cm RV Basal Dimension 4.1 cm RV Free Wall Peak S' 12 cm/s LA Diameter 2.7 cm LA Volume A/L 45 mL LA Volume 2C 39 22 - 52 mL LA Volume 4C 40 22 - 52 mL LA Volume BP 40 22 - 52 mL RA Area 4C 37.6 mL RA Area 4C 37.4 mL MV A Velocity 0.81 m/s MV E Wave Deceleration Time 209.2 ms MV E Velocity 0.83 m/s LV E' Lateral Velocity 8 cm/s LV E' Septal Velocity 7 cm/s TAPSE 2.1 >=1.7 cm TR Peak Gradient 33 mmHg TR Max Velocity 2.87 m/s Aortic Arch 3.6 cm Ascending Aorta 3.9 cm IVC Diameter 1.9 cm Aortic Root 3.4 cm LV ESV Index BP 5 mL/m2 LV EDV Index BP 38 mL/m2 LV ESV Index A4C 4 mL/m2 LV EDV Index A4C 32 mL/m2 LV ESV Index A2C 6 mL/m2 LV EDV Index A2C 41 mL/m2 MV E/A 1.02 E/E' Ratio (Averaged) 11.12 E/E' Lateral 10.38 E/E' Septal 11.86 LA Volume Index BP 24 16 - 34 ml/m2 LA Volume Index A/L 26 16 - 34 mL/m2 LVOT Stroke Volume Index 52.5 mL/m2 LVOT Area 3.1 cm2 LA Volume Index 2C 23 16 - 34 mL/m2 LA Volume Index 4C 24 16 - 34 mL/m2 LA Size Index 1.59 cm/m2 LA/AO Root Ratio 0.79 Ao Root Index 2.00 cm/m2 Ascending Aorta Index 2.29 cm/m2 Est. RA Pressure 3 mmHg Aortic Sinus Valsalva 2.8 cm Aortic Sinus Valsalva Index 1.65 cm/m2 RVSP 36 mmHg Hemoglobin and hematocrit, blood Collection Time: 04/22/25 3:25 PM Result Value Ref Range Hemoglobin 7.9 (L) 11.7 - 16.0 g/dL Hematocrit 22.8 (L) 35.0 - 47.0 % CBC Collection Time: 04/22/25 6:32 PM Result Value Ref Range Auto WBC 8.0 3.6 - 10.7 10*3/uL RBC 2.35 (L) 3.80 - 5.20 10*6/uL Hemoglobin 7.8 (L) 11.7 - 16.0 g/dL Hematocrit 22.3 (L) 35.0 - 47.0 % MCV 94.9 77.0 - 99.0 fL MCH 33.2 26.0 - 34.0 pg MCHC 35.0 30.5 - 36.0 % RDW 14.5 11.5 - 15.0 % Platelets 101 (L) 140 - 440 10*3/uL MPV 10.9 9.0 - 12.7 fL IPF 4 Prepare RBC: 2 Units Collection Time: 04/22/25 9:41 PM Result Value Ref Range PRODUCT CODE [id number] Unit Number [id number] Unit ABO O Unit RH POS Crossmatch interpretation COMP Dispense Status Transfused Blood Expiration Date [id number] Product Blood Type 5100 Unit Volume 300 mL PRODUCT CODE [id number] Unit Number [id number] Unit ABO O Unit RH POS Crossmatch interpretation COMP Dispense Status Transfused Blood Expiration Date [id number] Product Blood Type 5100 Unit Volume 300 mL Basic metabolic panel Collection Time: 04/23/25 12:49 AM Result Value Ref Range SODIUM 132 (L) 136 - 145 mmol/L POTASSIUM 3.6 3.5 - 5.1 mmol/L CHLORIDE 105 98 - 107 mmol/L CARBON DIOXIDE 22 (L) 23 - 31 mmol/L UREA NITROGEN 21 9 - 23 mg/dL CREATININE 0.59 0.57 - 1.11 mg/dL GLUCOSE 112 82 - 115 mg/dL CALCIUM 7.8 (L) 8.8 - 10.0 mg/dL ANION GAP 5 3 - 13 mmol/L eGFR 89.6 >60.0 mL/min/1.73m*2 CBC Collection Time: 04/23/25 12:49 AM Result Value Ref Range Auto WBC 7.1 3.6 - 10.7 10*3/uL RBC 2.68 (L) 3.80 - 5.20 10*6/uL Hemoglobin 8.9 (L) 11.7 - 16.0 g/dL Hematocrit 25.3 (L) 35.0 - 47.0 % MCV 94.4 77.0 - 99.0 fL MCH 33.2 26.0 - 34.0 pg MCHC 35.2 30.5 - 36.0 % RDW 14.6 11.5 - 15.0 % Platelets 85 (L) 140 - 440 10*3/uL MPV 11.0 9.0 - 12.7 fL IPF 3 CBC Collection Time: 04/23/25 5:47 AM Result Value Ref Range Auto WBC 7.3 3.6 - 10.7 10*3/uL RBC 2.77 (L) 3.80 - 5.20 10*6/uL Hemoglobin 9.1 (L) 11.7 - 16.0 g/dL Hematocrit 26.2 (L) 35.0 - 47.0 % MCV 94.6 77.0 - 99.0 fL MCH 32.9 26.0 - 34.0 pg MCHC 34.7 30.5 - 36.0 % RDW 14.3 11.5 - 15.0 % Platelets 87 (L) 140 - 440 10*3/uL MPV 10.5 9.0 - 12.7 fL IPF 4 No results found for: TSH No components found for: B12 No results found for: VITD25 Reviewed: active problem list, medication list, allergies, social history, notes from last encounter, lab results, imaging Follow-up: will follow with you (Please note: Portions of this note were completed with a voice recognition program. Efforts were made to edit the dictations but occasionally words and phrases are mis-transcribed.) Osmar Morejon MD 04/23/25 9:43 AM [1] Allergies Allergen Reactions Bee Venom Anaphylaxis Lidocaine Shortness of breath Penicillins Nausea Only Sulfa Antibiotics Nausea Only Varenicline Nausea And Vomiting Penicillin G Rash Simvastatin Rash [2] Current Facility-Administered Medications: acetaminophen (Tylenol) tablet 1,000 mg, 1,000 mg, Oral, q8h, Lisa Wayne MD, 1,000 mg at 04/21/252104 dextrose 5 % and sodium chloride 0.45 % with KCl 20 mEq/L infusion, 50 mL/hr, IntraVENous, Continuous, Stella Sage MD, Last Rate: 50 mL/hr at 04/22/252112, 50 mL/hr at 04/22/252112 melatonin tablet 5 mg, 5 mg, Oral, Nightly, Lisa Wayne MD mupirocin (Bactroban) 2 % ointment, , Nasal, BID, Lisa Wayne MD naloxone (Narcan) injection 0.4 mg, 0.4 mg, IntraVENous, q5 min PRN, Miller Lee DO norepinephrine (Levophed) 4 mg in 0.9% sodium chloride 250 mL infusion ([id number]) (premix), 2-50 mcg/min, IntraVENous, Continuous, Stella Sage MD, Last Rate: 7.5 mL/hr at 04/22/252113, 2 mcg/min at 04/22/252113 oxyCODONE (Roxicodone) immediate release tablet 5 mg, 5 mg, Oral, q4h PRN, 5 mg at 04/22/25940 OR oxyCODONE (Roxicodone) immediate release tablet 10 mg, 10 mg, Oral, q4h PRN, Lisa Wayne MD, 10 mg at 04/22/252053 perflutren protein A microsphere (Optison) 3 mL in sodium chloride (PF) 0.9 % 10 mL IV, 0-10 mL, IntraVENous, Once PRN, Lisa Wayne MD phenytoin ER (Dilantin) capsule 200 mg, 200 mg, Oral, BID, Lisa Wayne MD, 200 mg at 04/22/252055 polyethylene glycol (PEG) 3350 (Miralax) packet 17 g, 17 g, Oral, Daily, Lisa Wayne MD senna-docusate sodium (Senokot-S) 8.6-50 MG tablet 2 tablet, 2 tablet, Oral, BID, Lisa Wayne MD, 2 tablet at 04/22/25933 sertraline (Zoloft) tablet 200 mg, 200 mg, Oral, Daily, Yeimy Glasgow MD sodium chloride 0.9 % infusion, 250 mL/hr, IntraVENous, PRN, Lisa Wayne MD sodium chloride 0.9 % infusion, 250 mL/hr, IntraVENous, PRN, Jono Fernandez MD temazepam (Restoril) capsule 15 mg, 15 mg, Oral, Nightly PRN, Yeimy Glasgow MD, 15 mg at 04/22/252053 thiamine (Vitamin B1) injection 100 mg, 100 mg, IntraVENous, Daily, Migdalia Joseph MD, 100 mg at 04/22/25932 [3] Past Medical History: Diagnosis Date Hypertension Seizures (HCC) [4] Past Surgical History: Procedure Laterality Date EYE SURGERY HYSTERECTOMY [5] Family History Problem Relation Name Age of Onset Stroke Mother Heart disease Father Heart attack Father Coronary artery disease Father Associated Order(s): IP CONSULT TO ORTHOPAEDIC SURGERY Ortho Consult Patient: Maday Alfaro Date of : 1940 Acct: [id number] PCP: CHRISTIAN HARRISON NP Date of Admission: 04/21/2025 Date of Service: Pt seen/examined on 04/21/2025 Chief Complaint: L hip pain History Of Present Illness: 84 y.o. female who presents with L hip pain after a fall from standing. The patient was unable to get up for around 4 hours and had to call for help. Denies significant pain besides L hip. Denies head trauma and loss of consciousness. Denies numbness and tingling in affected extremity. Denies fever or chills. Denies any previous orthopaedic surgery history. Patient ambulation status: ambulates with: cane and walker. Primarily household Ambulator. Antiplatelets/Anticoagulation includes: ASA. Endorses tobacco use, 1 pack/day. Denies alcohol or IV drug use. Hx from chart and/or Pt. Past Medical History: Medical History[1] Past Surgical History: Surgical History[2] Home Medications: Prior to Admission medications Medication Sig Start Date End Date Taking? Authorizing Provider acetaminophen (Tylenol) 500 MG tablet Take 2 tablets (1,000 mg) by mouth every 6 hours as needed for mild pain (1-3). 07/15/24 Nguyễn Caal DO aspirin 81 MG chewable tablet Chew 1 tablet in the morning. 08/07/18 Historical Provider, EPINEPHrine (Epipen) 0.3 MG/0.3ML injection syringe inject 0.3 milliliters ( 0.3 milligrams ) intramuscularly in OUTE... (REFER TO PRESCRIPTION NOTES). 12/20/22 Historical Provider, lisinopril 20 MG tablet Take 1 tablet by mouth in the morning. 10/26/18 Historical Provider, oxyCODONE (Roxicodone) 5 MG immediate release tablet Take 1 tablet (5 mg) by mouth every 6 hours as needed for severe pain (7-10). 07/15/24 Nguyễn Caal DO phenytoin ER (Dilantin) 100 MG capsule Take 200 mg by mouth in the morning and 200 mg before bedtime. Historical Provider, sertraline (Zoloft) 100 MG tablet 09/09/23 Historical Provider, temazepam (Restoril) 15 MG capsule Take 15 mg by mouth every 24 hours as needed. Historical Provider, Current Hospital Medications: Current Medications[3] Allergies: Bee venom, Lidocaine, Penicillins, Sulfa antibiotics, Varenicline, Penicillin g, and Simvastatin Social History: Social History Socioeconomic History Marital status: Spouse name: Not on file Number of children: Not on file Years of education: Not on file Highest education level: Not on file Occupational History Not on file Tobacco Use Smoking status: Every Day Types: Cigarettes Smokeless tobacco: Never Vaping Use Vaping status: Never Used Substance and Sexual Activity Alcohol use: No Drug use: Not on file Sexual activity: Not on file Other Topics Concern Not on file Social History Narrative Not on file Social Drivers of Health Financial Resource Strain: Not on file Food Insecurity: Not on file Transportation Needs: Not on file Physical Activity: Not on file Stress: Not on file Social Connections: Not on file Intimate Partner Violence: Not on file Housing Stability: Not on file Family History: Family History[4] Further Family History is noncontributory to this injury. REVIEW OF SYSTEMS: Review of Systems - General ROS: negative for - chills, fatigue, fever, malaise or night sweats Psychological ROS: negative Ophthalmic ROS: negative ENT ROS: negative for - headaches or sore throat Hematological and Lymphatic ROS: negative for - bleeding problems or blood clots Respiratory ROS: no cough, shortness of breath, or wheezing Cardiovascular ROS: no chest pain or dyspnea on exertion Gastrointestinal ROS: negative Musculoskeletal ROS: See HPI Neurological ROS: negative for - bowel and bladder control changes, gait disturbance or numbness/tingling All other systems reviewed and are negative PHYSICAL EXAM: BP 129/54 Pulse 70 Temp 36.4 C (97.5 F) (Axillary) Resp 16 SpO2 96% GENERAL APPEARANCE: Awake and oriented x 3. No acute distress, except appropriate to injury. MOOD AND AFFECT: Calm appropriate to situation GAIT AND STATION: Patient is in bed and unable to ambulate secondary to known injury. REFLEXES: Not assessed COORDINATION and BALANCE: Patient is grossly coordinated unable to ambulate secondary to known injury. Right Upper Extremity: -No obvious pain or deformity to inspection with normal joint range of motion, stability, and muscle strength except noted below -No TTP over clavicle, shoulder, humerus, elbow, forearm, wrist, hand, or fingers -TTP: nontender throughout extremity -Radial pulse palpable -SILT in radial/median/ ulnar nerve distributions -Motor + AIN/PIN/ulnar nerve functions -Skin intact except where noted below -Painless pROM at shoulder/elbow/wrist Atraumatic Left Upper Extremity: -No obvious pain or deformity to inspection with normal joint range of motion, stability, and muscle strength except noted below -No TTP over clavicle, shoulder, humerus, elbow, forearm, wrist, hand, or fingers -TTP: nontender throughout extremity -Radial pulse palpable -SILT in radial/median/ ulnar nerve distributions -Motor + AIN/PIN/ulnar nerve functions -Skin intact except where noted below -Painless pROM at shoulder/elbow/wrist Atraumatic Right lower Extremity: -No obvious pain or deformity to inspection with normal joint range of motion, stability, and muscle strength except noted below. Extremity shortened and externally rotated. Skin over lateral hip is clean and dry without signs of wounds or breakdown. -No TTP over pelvis, hip, thigh, knee, tibia, lateral mal, medial mal, calc, midfoot, forefoot -TTP: Nontender throughout extremity -Pulse: DP Palpable, PT Palpable -SILT in the superficial peroneal, deep peroneal, tibial, sural, saphenous nerve distributions -Motor function of tibialis anterior, extensor hallucis longus, and gactrocsoleus complex intact -Skin intact except where noted below -Painless pROM at knee/ankle Atraumatic Left lower Extremity: -No obvious pain or deformity to inspection with normal joint range of motion, stability, and muscle strength except noted below -No TTP over knee, tibia, lateral mal, medial mal, calc, midfoot, forefoot -TTP: hip and thigh -Pulse: PT Palpable, toes WWP -SILT in the superficial peroneal, deep peroneal, tibial, sural, saphenous nerve distributions -Motor function of quad, tibialis anterior, extensor hallucis longus, and gactrocsoleus complex intact -Skin intact except where noted below -Painless pROM at knee/ankle - + Logroll Left lower extremity shortened and externally rotated. No bruising, bleeding, wound or ecchymosis over hip. Labs: CBC: Lab Results Component Value Date WBC 14.1 (H) 04/21/2025 RBC 4.47 04/21/2025 BMP: Lab Results Component Value Date GLUCOSE 146 (H) 04/21/2025 CO2 22 (L) 04/21/2025 BUN 15 04/21/2025 CREATININE 0.66 04/21/2025 CALCIUM 9.6 04/21/2025 PT/INR: Lab Results Component Value Date INR 1.1 04/21/2025 APTT 27.9 04/21/2025 Type and Screen: Lab Results Component Value Date RH POS 04/21/2025 RH POS 04/21/2025 CRP: No results found for: CRP ESR: No results found for: SEDRATE HgBA1c: No components found for: LABA1C The above labs were reviewed by me. Radiology: The below images were independently reviewed and interpreted XR: L hip: Comminuted L intertrochanteric hip fracture with subtrochanteric extension. No other acute fracture or dislocation. Pelvis: L intertrochanteric hip fracture. fracture. No other acute fracture or dislocation. L Femur: No fracture or dislocation of distal femur Radiology report reviewed. ASSESSMENT: 84 y.o. 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 I agree with what is documented above with any changes noted. I recommend ORIF with InterTAN nailing. The plan of care was discussed with the evaluating resident. Without treatment this injury poses threat to bodily function both acutely and chronically. Patient will also require IV Dilaudid for pain management. Electronically signed by Travis Meng M.D. 04/21/2025 at 1:33 PM. [1] Past Medical History: Diagnosis Date Hypertension Seizures (HCC) [2] Past Surgical History: Procedure Laterality Date EYE SURGERY HYSTERECTOMY [3] No current facility-administered medications for this encounter. [4] Family History Problem Relation Name Age of Onset Stroke Mother Heart disease Father Heart attack Father Coronary artery disease Father documented in this encounter [facility] 04-24-2025 Progress note Formatting of t his note might be different from the original. Care Management Progress Note Short Medical why still here: Admitted for hip fx s/p ORIR 04/21/2025. Remains for pressort gtt - on/off, amio gtt, therapy evals ongoing. Ortho, Geriatrics, and cardiology following/consults. Planned Discharge Disposition: Inpatient Rehab Facility ([facility] vs SNF in [place]) FOC remains pending with patient. Now on Amio gtt. Cardiology consult placed. Will follow regarding discharge plan and FOC appropriateness. CM updated [facility] liaison via secure message. Barriers/Today we still Wait: Administering IV medications, Clinical stability, [facility] recommendations (comment), Symptomatic control pressort gtt - on/off, amio gtt, therapy evals ongoing. Ortho, Geriatrics, and cardiology following/consults. Length of Stay (Days): 3 GMLOS: 4.4 Case management will continue to follow for discharge planning. [facility] 04-23-2025 Progress note Formatting of t his note might be different from the original. Care Management Progress Note Short Medical why still here: Admitted for hip fx s/p ORIR 04/21/2025. Remains for pressort gtt, therapy evals ongoing, post discharge plan pending. Ortho following/consults. Planned Discharge Disposition: Inpatient Rehab Facility ([facility] vs SNF in [place]) Spoke with patient at bedside. Re-introduced myself and role. Discussed discharge planning. Patient agreeable to [facility] or SNF in [place] but has not decided on FOC. Patient requests patient to return tomorrow for choice. CM updated [facility] liaison via secure message. Barriers/Today we still Wait: Administering IV medications, Clinical stability, [facility] recommendations (comment), Patient/caregiver facility choice pressor gtt, therapy evals ongoing. Ortho following/consults. Length of Stay (Days): 2 GMLOS: No GMLOS Documented Case management will continue to follow for discharge planning. [facility] 04-23-2025 Consult note Associated Order (s): IP CONSULT TO GERIATRICS [facility] Service Admission Date: 04/21/2025 Admission Status: INPATIENT Chief Complaint: Chief Complaint Patient presents with Hip Pain Hip pain post fall. Pt was down for about four hours. Pt has c/o left hip and leg pain . Shortening and rotation noted . Reason for Appointment Geriatrics consulted for Trauma due to fall Assessment & Plan Principal Problem: Closed intertrochanteric fracture of hip, left, initial encounter ([facility]) Left hip fracture s/p ORIF on 04/21 - Management per primary service - Patient in ICU requiring norepinephrine to maintain BPs - Orthopedics following, recommending weightbearing as tolerated and outpatient follow-up in 2 weeks - Agree with scheduled acetaminophen and oxycodone as needed for breakthrough pain Falls, debility, functional decline -Counseled regarding falls risk -Good safety awareness -PT/OT consulted, recommending SNF after discharge -Check orthostatic vital signs -Check vitamin D level -Continue fall precautions -Routine follow up for vision and hearing assessments -Recommended engaging in routine exercise program including aerobic activities such as walking as well as strength, flexibility and balance training -Maintain sleep hygiene with goal approx 7-8 hours of sleep nightly -For bone health maintain daily Calcium intake 1200mg daily in divided doses and to include dietary intake and Vitamin D 800iu daily Constipation - Management per primary service - Chronic, poorly controlled. Patient reports normally having a hard BM every 4 to 5 days at home. No BM charted this admission, patient unsure last time she had a BM. - Agree with scheduled Senokot and MiraLAX Depression and anxiety - Chronic, stable - Continue sertraline 200 mg every morning - Continue temazepam 15 mg nightly Seizure disorder - Chronic, poorly controlled - Patient reports seizures at home every few months, estimates last seizure about 1 month ago. She does not follow with neurology as an outpatient, recommend establishing with neurologist - Recommend no driving - Continue phenytoin At Risk for Delirium -Risk factors include: Fall, prolonged time down, fracture, pain, hospitalization, surgery, medications, hyponatremia -Melatonin nightly scheduled for insomnia -Delirium Protocol -Avoid sedating/anticholinergic medications -Encourage family visits -Encourage sleep hygiene -Minimize barriers to nutrition -Optimize sensory input and access to assistive devices where indicated -Encourage time up in chair - including at meals - as able -Unless contraindicated, encourage regular ambulation with assistance -D/c Hicks, restraints, IV lines, as able I spent total time of 55 minutes face to face with the patient and/or family discussing the diagnosis and importance of compliance with the treatment plan as well as documenting on the day of the visit. In addition, that total time includes the following: -Reviewing previous notes, -Reviewing labs, -Reviewing previous cognitive tests, -Obtaining and/or reviewing separately obtained history, -Ordering prescription medications, tests and procedures, -Communicating results to the patient/family/caregiver, -Counseling/educating the patient/family/caregiver, -Documenting clinical information in the patients electronic record, -Coordination of care for the patient, and -Performing a medically appropriate exam and/or evaluation Subjective: HPI 84 y.o. year-old female with a past medical history of seizures and hypertension who presented to the emergency department on 04/21 from home after a fall. Patient was reportedly found down after 4 hours, was walking in her kitchen, lost her balance, and fell down. Patient was found intertrochanteric fracture of hip with varus angulation, she was admitted for further management. - Orthopedics was consulted, patient was taken to the OR 04/21 for ORIF left femur. - Patient was briefly hypotensive intraoperatively, persistently hypotensive in PACU requiring Levophed. Patient seen by physical therapy, mod to max assist, recommending SNF after discharge. Conversation with patient and son: - patient did not have any concerns this morning, feels like she wants to go home. Having very mild pain, rated 2/10 in right shoulder, no pain in hip. Reported normal appetite today, no problems swallowing. Patient deals with chronic constipation, goes about every 4-5, will take a basic laxative at home about every other week. Patient denied any urinary symptoms. Patient denied any problems with depression or anxiety, seems like sertraline fixed any mood problems. Patient takes temazepam nightly to fall asleep, will be fatigued the next day if she's up too much urinating. Patient denied any confusion this admission, denied any history of memory problems. - mobility is unsteady, uses a walker at home. Multiple falls at home, last one in June 2024. All seem to be due to poor balance, denied any LOC. May be having seizure during some falls, thinks most recent fall about 1 month ago. Thinks she has seizures every few months. Patient denied any neuropathy or visual impairment. - smokes about 1 pack cigarettes daily, no alcohol or drug use. Advance Care Planning Healthcare Power of Supervisor [employer] Department: No Financial Power of Supervisor [employer] Department: No Living Will:No Code Status: No Order Allergies[1] Current Medications[2] Medical History[3] Surgical History[4] Social History Tobacco Use Smoking status: Every Day Types: Cigarettes Smokeless tobacco: Never Substance Use Topics Alcohol use: No Social History Social History Narrative Not on file Family History Family History[5] Family Status Relation Name Status Mother (Not Specified) Father (Not Specified) No partnership data on file Review of Systems Constitutional: Positive for fatigue. Negative for appetite change. HENT: Negative for congestion, rhinorrhea and sore throat. Respiratory: Negative for cough and shortness of breath. Cardiovascular: Negative for chest pain and leg swelling. Gastrointestinal: Positive for constipation. Negative for abdominal pain, diarrhea, nausea and vomiting. Genitourinary: Negative for difficulty urinating and dysuria. Musculoskeletal: Positive for arthralgias and myalgias. Skin: Positive for wound. Neurological: Negative for dizziness, weakness and headaches. Psychiatric/Behavioral: Negative for agitation, confusion and sleep disturbance. Functional Status Prior to Admission: (I: Independent, A: Assisted, D: Dependent) ADLs I A D Notes Bathing [x] [] [] Dressing [x] [] [] Toileting [x] [] [] Transfers [] [x] [] Needs help if sitting in higher chair or stool Feeding [x] [] [] Ambulation [x] [] [] Assistive devices: walker IADLs I A D Telephone [x] [] [] Transportation [] [] [x] Not driving since last June Shopping [] [x] [] Meal prep [x] [] [] Housework [x] [] [] Medications [x] [] [] Patient uses a pill container to keep organized Finances [x] [] [] Objective: BP 129/60 Pulse 72 Temp 37.1 C (98.7 F) (Temporal) Resp 17 Ht 5' 6 (1.676 m) Wt 136 lb (61.7 kg) SpO2 95% BMI 21.95 kg/m Intake/Output Summary (Last 24 hours) at 04/23/2025 0943 Last data filed at 04/23/2025 0543 Gross per 24 hour Intake 3383.08 ml Output 1075 ml Net 2308.08 ml Wt Readings from Last 3 Encounters: 04/22/25 136 lb (61.7 kg) 08/29/24 136 lb (61.7 kg) 07/18/24 136 lb (61.7 kg) Physical Exam Constitutional: General: She is not in acute distress. HENT: Nose: No congestion or rhinorrhea. Mouth/Throat: Mouth: Mucous membranes are moist. Pharynx: Oropharynx is clear. Comments: Dentures in place Eyes: Extraocular Movements: Extraocular movements intact. Cardiovascular: Rate and Rhythm: Normal rate and regular rhythm. Heart sounds: No murmur heard. Pulmonary: Effort: No respiratory distress. Breath sounds: No wheezing, rhonchi or rales. Abdominal: General: Bowel sounds are normal. Palpations: Abdomen is soft. Tenderness: There is no abdominal tenderness. There is no guarding. Hernia: A hernia is present. Musculoskeletal: Right lower leg: No edema. Left lower leg: No edema. Neurological: General: No focal deficit present. Mental Status: She is alert and oriented to person, place, and time. Cranial Nerves: No cranial nerve deficit. Sensory: No sensory deficit. Motor: No weakness. Psychiatric: Mood and Affect: Mood normal. Labs and Imaging: Recent Results (from the past 24 hours) CBC Collection Time: 04/22/25 11:17 AM Result Value Ref Range Auto WBC 8.0 3.6 - 10.7 10*3/uL RBC 2.02 (L) 3.80 - 5.20 10*6/uL Hemoglobin 7.0 (L) 11.7 - 16.0 g/dL Hematocrit 19.5 (L) 35.0 - 47.0 % MCV 96.5 77.0 - 99.0 fL MCH 34.7 (H) 26.0 - 34.0 pg MCHC 35.9 30.5 - 36.0 % RDW 13.3 11.5 - 15.0 % Platelets 96 (L) 140 - 440 10*3/uL MPV 11.2 9.0 - 12.7 fL Lactic acid with reflex Collection Time: 04/22/25 11:17 AM Result Value Ref Range LACTIC ACID 1.5 0.5 - 2.2 mmol/L Prepare RBC: 1 Units Collection Time: 04/22/25 11:29 AM Result Value Ref Range PRODUCT CODE P2517S44 Unit Number [id number] Unit ABO O Unit RH POS Crossmatch interpretation COMP Dispense Status Crossmatch Blood Expiration Date [id number] Product Blood Type 5100 Unit Volume 300 mL Transthoracic echocardiogram (TTE) complete with contrast, bubble, strain, and 3D PRN Collection Time: 04/22/25 1:00 PM Result Value Ref Range LVOT Diameter 2.0 cm EF BP 87 55 - 100 % LV Ejection Fraction A2C 85 % LV Ejection Fraction A4C 88 % LV EDV A2C 70 mL LV EDV A4C 55 mL LV EDV BP 64 56 - 104 mL LV ESV A2C 11 mL LV ESV A4C 6 mL LV ESV BP 8 (A) 19 - 49 mL LVOT Cardiac Output 6.7 liter/minute LVOT Peak Gradient 6 mmHg LVOT Mean Gradient 4 mmHg LVOT SV 89.2 ml LVOT Peak Velocity 1.3 m/s LVOT VTI 28.4 cm RV Longitudinal Dimension 6.8 cm RV Mid Dimension 2.8 cm RV Basal Dimension 4.1 cm RV Free Wall Peak S' 12 cm/s LA Diameter 2.7 cm LA Volume A/L 45 mL LA Volume 2C 39 22 - 52 mL LA Volume 4C 40 22 - 52 mL LA Volume BP 40 22 - 52 mL RA Area 4C 37.6 mL RA Area 4C 37.4 mL MV A Velocity 0.81 m/s MV E Wave Deceleration Time 209.2 ms MV E Velocity 0.83 m/s LV E' Lateral Velocity 8 cm/s LV E' Septal Velocity 7 cm/s TAPSE 2.1 >=1.7 cm TR Peak Gradient 33 mmHg TR Max Velocity 2.87 m/s Aortic Arch 3.6 cm Ascending Aorta 3.9 cm IVC Diameter 1.9 cm Aortic Root 3.4 cm LV ESV Index BP 5 mL/m2 LV EDV Index BP 38 mL/m2 LV ESV Index A4C 4 mL/m2 LV EDV Index A4C 32 mL/m2 LV ESV Index A2C 6 mL/m2 LV EDV Index A2C 41 mL/m2 MV E/A 1.02 E/E' Ratio (Averaged) 11.12 E/E' Lateral 10.38 E/E' Septal 11.86 LA Volume Index BP 24 16 - 34 ml/m2 LA Volume Index A/L 26 16 - 34 mL/m2 LVOT Stroke Volume Index 52.5 mL/m2 LVOT Area 3.1 cm2 LA Volume Index 2C 23 16 - 34 mL/m2 LA Volume Index 4C 24 16 - 34 mL/m2 LA Size Index 1.59 cm/m2 LA/AO Root Ratio 0.79 Ao Root Index 2.00 cm/m2 Ascending Aorta Index 2.29 cm/m2 Est. RA Pressure 3 mmHg Aortic Sinus Valsalva 2.8 cm Aortic Sinus Valsalva Index 1.65 cm/m2 RVSP 36 mmHg Hemoglobin and hematocrit, blood Collection Time: 04/22/25 3:25 PM Result Value Ref Range Hemoglobin 7.9 (L) 11.7 - 16.0 g/dL Hematocrit 22.8 (L) 35.0 - 47.0 % CBC Collection Time: 04/22/25 6:32 PM Result Value Ref Range Auto WBC 8.0 3.6 - 10.7 10*3/uL RBC 2.35 (L) 3.80 - 5.20 10*6/uL Hemoglobin 7.8 (L) 11.7 - 16.0 g/dL Hematocrit 22.3 (L) 35.0 - 47.0 % MCV 94.9 77.0 - 99.0 fL MCH 33.2 26.0 - 34.0 pg MCHC 35.0 30.5 - 36.0 % RDW 14.5 11.5 - 15.0 % Platelets 101 (L) 140 - 440 10*3/uL MPV 10.9 9.0 - 12.7 fL IPF 4 Prepare RBC: 2 Units Collection Time: 04/22/25 9:41 PM Result Value Ref Range PRODUCT CODE [id number] Unit Number [id number] Unit ABO O Unit RH POS Crossmatch interpretation COMP Dispense Status Transfused Blood Expiration Date [id number] Product Blood Type 5100 Unit Volume 300 mL PRODUCT CODE [id number] Unit Number [id number] Unit ABO O Unit RH POS Crossmatch interpretation COMP Dispense Status Transfused Blood Expiration Date [id number] Product Blood Type 5100 Unit Volume 300 mL Basic metabolic panel Collection Time: 04/23/25 12:49 AM Result Value Ref Range SODIUM 132 (L) 136 - 145 mmol/L POTASSIUM 3.6 3.5 - 5.1 mmol/L CHLORIDE 105 98 - 107 mmol/L CARBON DIOXIDE 22 (L) 23 - 31 mmol/L UREA NITROGEN 21 9 - 23 mg/dL CREATININE 0.59 0.57 - 1.11 mg/dL GLUCOSE 112 82 - 115 mg/dL CALCIUM 7.8 (L) 8.8 - 10.0 mg/dL ANION GAP 5 3 - 13 mmol/L eGFR 89.6 >60.0 mL/min/1.73m*2 CBC Collection Time: 04/23/25 12:49 AM Result Value Ref Range Auto WBC 7.1 3.6 - 10.7 10*3/uL RBC 2.68 (L) 3.80 - 5.20 10*6/uL Hemoglobin 8.9 (L) 11.7 - 16.0 g/dL Hematocrit 25.3 (L) 35.0 - 47.0 % MCV 94.4 77.0 - 99.0 fL MCH 33.2 26.0 - 34.0 pg MCHC 35.2 30.5 - 36.0 % RDW 14.6 11.5 - 15.0 % Platelets 85 (L) 140 - 440 10*3/uL MPV 11.0 9.0 - 12.7 fL IPF 3 CBC Collection Time: 04/23/25 5:47 AM Result Value Ref Range Auto WBC 7.3 3.6 - 10.7 10*3/uL RBC 2.77 (L) 3.80 - 5.20 10*6/uL Hemoglobin 9.1 (L) 11.7 - 16.0 g/dL Hematocrit 26.2 (L) 35.0 - 47.0 % MCV 94.6 77.0 - 99.0 fL MCH 32.9 26.0 - 34.0 pg MCHC 34.7 30.5 - 36.0 % RDW 14.3 11.5 - 15.0 % Platelets 87 (L) 140 - 440 10*3/uL MPV 10.5 9.0 - 12.7 fL IPF 4 No results found for: TSH No components found for: B12 No results found for: VITD25 Reviewed: active problem list, medication list, allergies, social history, notes from last encounter, lab results, imaging Follow-up: will follow with you (Please note: Portions of this note were completed with a voice recognition program. Efforts were made to edit the dictations but occasionally words and phrases are mis-transcribed.) Osmar Morejon MD 04/23/25 9:43 AM [1] Allergies Allergen Reactions Bee Venom Anaphylaxis Lidocaine Shortness of breath Penicillins Nausea Only Sulfa Antibiotics Nausea Only Varenicline Nausea And Vomiting Penicillin G Rash Simvastatin Rash [2] Current Facility-Administered Medications: acetaminophen (Tylenol) tablet 1,000 mg, 1,000 mg, Oral, q8h, Lisa Wayne MD, 1,000 mg at 04/21/252104 dextrose 5 % and sodium chloride 0.45 % with KCl 20 mEq/L infusion, 50 mL/hr, IntraVENous, Continuous, Stella Sage MD, Last Rate: 50 mL/hr at 04/22/252112, 50 mL/hr at 04/22/252112 melatonin tablet 5 mg, 5 mg, Oral, Nightly, Lisa Wayne MD mupirocin (Bactroban) 2 % ointment, , Nasal, BID, Lisa Wayne MD naloxone (Narcan) injection 0.4 mg, 0.4 mg, IntraVENous, q5 min PRN, Miller Lee DO norepinephrine (Levophed) 4 mg in 0.9% sodium chloride 250 mL infusion (Phm-Onludf-Ninka) (premix), 2-50 mcg/min, IntraVENous, Continuous, Stella Sage MD, Last Rate: 7.5 mL/hr at 04/22/252113, 2 mcg/min at 04/22/252113 oxyCODONE (Roxicodone) immediate release tablet 5 mg, 5 mg, Oral, q4h PRN, 5 mg at 09/09/25 0941 OR oxyCODONE (Roxicodone) immediate release tablet 10 mg, 10 mg, Oral, q4h PRN, Lisa Wayne MD, 10 mg at 04/22/252053 perflutren protein A microsphere (Optison) 3 mL in sodium chloride (PF) 0.9 % 10 mL IV, 0-10 mL, IntraVENous, Once PRN, Lisa Wayne MD phenytoin ER (Dilantin) capsule 200 mg, 200 mg, Oral, BID, Lisa Wayne MD, 200 mg at 04/22/252055 polyethylene glycol (PEG) 3350 (Miralax) packet 17 g, 17 g, Oral, Daily, Lisa Wayne MD senna-docusate sodium (Senokot-S) 8.6-50 MG tablet 2 tablet, 2 tablet, Oral, BID, Lisa Wayne MD, 2 tablet at 04/22/25933 sertraline (Zoloft) tablet 200 mg, 200 mg, Oral, Daily, Yeimy Glasgow MD sodium chloride 0.9 % infusion, 250 mL/hr, IntraVENous, PRN, Lisa Wayne MD sodium chloride 0.9 % infusion, 250 mL/hr, IntraVENous, PRN, Jono Fernandez MD temazepam (Restoril) capsule 15 mg, 15 mg, Oral, Nightly PRN, Yeimy Glasgow MD, 15 mg at 04/22/252053 thiamine (Vitamin B1) injection 100 mg, 100 mg, IntraVENous, Daily, Migdalia Joseph MD, 100 mg at 04/22/25932 [3] Past Medical History: Diagnosis Date Hypertension Seizures (HCC) [4] Past Surgical History: Procedure Laterality Date EYE SURGERY HYSTERECTOMY [5] Family History Problem Relation Name Age of Onset Stroke Mother Heart disease Father Heart attack Father Coronary artery disease Father [employer] Work Phone: 04-22-2025 Note RH Referral placed t [facility] via [facility] per [facility] request. Awaiting review and response regarding ability to accept. [facility] notified. [facility] 04-22-2025 Progress note Formatting of t his note might be different from the original. RH Referral placed to [facility] via [facility] per [facility] request. Awaiting review and response regarding ability to accept. [facility] notified. [facility] 04-22-2025 Progress note Formatting of t his note might be different from the original. Care Management Progress Note Short Medical why still here: Admitted for hip fx s/p ORIR 04/21/2025. Remains for IVABX, pressort gtt, PRBCs, therapy evals pending. Ortho following/consults. Initial Assessment: Chart reviewed. Patient from home. Has insurance and PCP listed on EHR. Discussed discharge planning and therapy recs. CM proved SNF and rehab hospital choice lists. Patient interested in rehab hospitals but currently unsure if she would be strong enough for 2-3 hours of therapy. Patient agreeable to [facility] reviewing chart and following peripherally. CM tasked [employer] to send referral via careport. CM will follow clinical progress and continue to work on discharge planning. Planned Discharge Disposition: Inpatient Rehab Facility (Rehab Hospital vs SNF) Barriers/Today we still Wait: Administering IV medications, Clinical stability, [facility] recommendations (comment) IVABX, pressort gtt, PRBCs, therapy evals pending. Ortho following/consults. Length of Stay (Days): 1 GMLOS: No GMLOS Documented Case management will continue to follow for discharge planning. [facility] 04-21-2025 Nurse Note notified via secure chat of critical lab value of lactic acid of 4.3, no new order received. [facility] 04-21-2025 Nurse Note Pt granddaughter. Ed, updated at this time. Pt family given pt new room number, on the way to T2 waiting room. [facility] 04-21-[address] Ha at pt bedside in PACU. [facility] 04-21-2025 Nurse Note ICU residents at pt bedside in PACU. [facility] 04-21-[address] Lee at pt bedside [facility] 04-21-2025 Nurse Note Pt granddaughter, Ed, updated at this time. [facility] 04-21-2025 Nurse Note Ortho.residents at pt bedside to assess pt. Pt w/ hematoma to surgical site L outer thigh, assessed, wrapped w/ MARYAM wrap, saline bag. Per , leave MARYAM wrap on overnight. [facility] 04-21-[address] Coto at pt bedside in PACU. [facility] 04-21-2025 Note [facility] 04-21-2025 Note [facility] 04-21-2025 Procedure note [facility] [address] [address] Dept: [phone] Loc: [phone] Operative Report Patient Name: Maday Alfaro Date of : 1940 Date of Surgery: 04/21/25 Pre-operative diagnosis: Left intertrochanteric femur fracture Post-operative diagnosis: Same Procedure(s): Intertan nailing of left intertrochanteric femur fracture Surgeon: Travis Meng M.D. Digital Marketer(s): Rigo Baird M.D. and Janneth Centeno M.D. Anesthesia: General EBL: 150 cc IVF: Crystalloid Medications: Ancef 2 grams IV Implants: Intertan 10mm x40cm nail, 125 degree Clinical History/Indication for Surgery The patient is a 84 y.o. year old female who was presents for operative fixation of a left intertrochanteric femur fracture. Typical indications for surgery were reviewed and long Intertan nailing was recommended. Risks of surgery in general were reviewed including, but not limited to, infection, nonunion, need for additional procedures, failure of fixation which would require revision, damage to normal structures as well as medical complications such as ID, stroke, PE, DVT, and even . Patient and any family present were given opportunity to ask questions and consider her options ultimately electing to proceed with surgery. No guarantees were given or implied. Operative Narration The patient was identified in the pre-operative holding area. The surgical site was identified and marked. Informed consent was obtained. The patient was then brought to the operating room and placed supine on the operating table. Anesthesia was administered and care of the head, neck, and airway was maintained by the anesthesia staff throughout the entire procedure. Patient was placed onto the fracture table. A well padded perineal post was placed. Both feet were well padded and placed in traction. Preop fluoroscopy confirmed a successful closed reduction. All bony prominences were identified and padded. The operative leg was prepped and draped in the usual sterile fashion. A surgical timeout was performed. Antibiotics were confirmed to have been given. The 3.2mm guide pin was placed percutaneously into the greater trochanter under AP and lateral fluoroscopic guidance. Once correctly positioned the skin incision was made to allow passage of the entry reamer over the pin. The long ball-tipped guidewire was passed across fracture and centered in the distal femur. 11 mm reamer was passed. The length of the nail was measured. The correct length and diameter nail was impacted using the depth tower to superior court judge the depth of placement. The proximal femur was prepared for the lag and worm screws with excellent compression achieved. Based on the patient's fracture pattern, the preloaded setscrew did not require locking. The distal screw was placed using perfect squaxin technique. Final films were obtained and saved. All incisions were irrigated and closed in a layered fashion. Sterile dressings were applied. Once the patient was awakened from anesthesia, they were transported to the PACU in stable condition, having tolerated surgery well with no immediate complications. Postoperative Plan WBAT Abx x 24hrs DVT prophylaxis Follow up 2wks This operative report was prepared and signed by Travis Meng MD at 04/21/25, 3:16 PM [facility] 04-21-2025 Procedure note Date: 04/21/2025 Location: [facility] OR Name: Maday Alfaro, : 1940, Diagnosis Pre-op Diagnosis * Closed displaced intertrochanteric fracture of left femur, initial encounter ([facility]) [S72.142A] Post-op Diagnosis * Closed displaced intertrochanteric fracture of left femur, initial encounter ([facility]) [S72.142A] Procedures ORIF, FRACTURE, FEMUR, INTERTROCHANTERIC, WITH INTRAMEDULLARY IMPLANT INSERTION 41693 - WA TX INTER/WA/SUBTRCHNTRIC FEM FX IMED IMPLTSCREW Surgeons * Travis Meng - Primary Procedure Summary Anesthesia: * No anesthesia type entered * ASA: III Estimated Blood Loss: 100 mL Drains: Urethral Catheter (Active) Implants Type Name Action Serial No. Nail NAIL INTERTAN 10S 10X40 125D L - [id number] Implanted Screw KIT SCR 90MM 4.5MM INTERTAN - [id number] Implanted Screw SCREW BN 5MM 42.5MM TRGN FEM - [id number] Implanted Staff: Short Order Fry Cook: Darline Marquez RN Scrub Person: Wai King RN Findings: see operative note Complications: None; patient tolerated the procedure well. Specimens Collected: No specimens collected during this procedure. Wound Class: Class I: Clean Blood Products: None Prophylactic Antibiotics: Procedure appropriate prophylactic antibiotic(s) given within 1 hour of surgical incision (two hours if receiving Vancomycin or flouroquinolone) Post op Plan: -WBAT LLE -Ancef x 24 hrs -PT/OT -Dressing: Okay to remove dressing POD#2, if dry leave open to air, if saturated replace PRN -PACU xray -DVT, medical, and pain management per 1 -F/u with Dr. Meng in 2 weeks -d/c instructions in chart -Please page manager of production ortho resident with questions/concerns [employer] Work Phone: 04-21-2025 Hospital Discharg e instructions Chris Molina PA-C - 04/21/2025 1:19 PM EDT General Orthopedic Discharge Instructions The following instructions have been prepared to help you when you leave the hospital. These guidelines are for the post-surgery period. Activity: Ease into normal activity as tolerated. Medications: see medication instructions. Please be sure to read and understand the information provided by your pharmacy. Ask your Pharmacist if any questions. Wound Care and Hygiene: -Wash hands before touching or changing dressings -Do Not touch incision -Leave dressing until post-op day 2 and reapply dressing if wound is draining. If wound is dry, you may leave dressing off -May shower starting post-op day 3 Call Your Doctor for: -Excessive bleeding/swelling of incision -Fever with temperature above 100 F Anesthesia Precautions: -Do Not operate any vehicle (automobile, bicycle, motorcycle) or power tools for 24 hours -Do Not drink alcoholic beverages for 24 hours -As precaution to prevent post-operative nausea and vomiting, start your diet with liquids, then progress to light foods. If tolerated, resume normal diet. Additional Instructions: -Weight bearing status: Weightbearing as tolerated with left leg. Use pain as a guide. -Ok for hip and knee range of motion. Work on bending and straightening your knee. -Ice/elevate extremity -Continue PT -Blood clot prevention: Take as prescribed by primary team. -Pain control: Take as prescribed by primary team. Alternate Tylenol and Ibuprofen every 4 hours. For example, take Tylenol at 7am and Ibuprofen at 11am. Then take Tylenol at 3pm and Ibuprofen at 7pm. Take narcotic medication for breakthrough pain only. Contact your surgeon's office (Dr. Meng), to set up an appointment in 2 weeks, or if you have any problems or questions. Tu Bazzi RN - 04/25/2025 10:14 AM EDT Images from the original note were not included. Continuity of Care Form Patient Name: Maday Alfaro : 1940 Admit date: 04/21/2025 Discharge date: 04/30/25 Code Status Order: No Order Advance Directives: N Admitting Physician: Miller Lee DO PCP: CHRISTIAN HARRISON NP Discharging Nurse: Tu Bazzi RN Discharging Hospital Unit/Room#: T2-216/T2-216 A Discharging Unit Phone Number: [phone] Emergency Contact: Extended Emergency Contact Information Primary Emergency Contact: Jono Fragoso Mobile Relation: Son Secondary Emergency Contact: Madelin Huang Relation: Sister Past Surgical History: Past Surgical History: Procedure Laterality Date EYE SURGERY HYSTERECTOMY Immunization History: Immunization History Administered Date(s) Administered Pfizer SARS-CoV-2 Vaccination 10/02/2020, 10/30/2020, 05/12/2021 Active Problems: Medical Problems Problem List * (Principal) Closed intertrochanteric fracture of hip, left, initial encounter (HCC) Chest pain Dilation of renal pelvis Closed displaced intertrochanteric fracture of left femur (HCC) Isolation/Infection: No active isolations No active infections Nurse Assessment: Last Vital Signs: BP 131/71 Pulse 65 Temp 36.1 C (97 F) Resp 18 Ht 1.676 m (5' 6) Wt 61.7 kg (136 lb) SpO2 95% BMI 21.95 kg/m Last documented pain score (0-10 scale): Last Weight: Wt Readings from Last 1 Encounters: 04/22/25 61.7 kg (136 lb) Mental Status: ADORE Patient Mental Status: oriented IV Access: ADORE IV Access: None Nursing Mobility/ADLs: Walking Minimal assistance Transfer Minimal assistance Bathing Minimal assistance Dressing Minimal assistance Toileting Minimal assistance Feeding Minimal assistance [employer] Artistic Director Minimal assistance Med Delivery no Wound Care Documentation and Therapy: Wound/Incision 04/21/25 Incision Leg Anterior;Left;Upper (Active) Site Assessment Unable to assess 04/25/25 0725 Opal-Wound Assessment Swollen (inflammed) 04/25/25 0400 Odor None 04/25/25 07 Drainage Amount Copious 04/25/25 0725 Treatments Site care 04/25/25 0400 Primary Dressing Dry dressing 04/25/25 0725 Dressing Status Clean, dry & intact 04/25/25 0725 Number of days: 4 Elimination: Continence: Bowel: yes Bladder: yes Urinary Catheter: None Colostomy/Ileostomy/Ileal Conduit: None Date of Last BM: 04/29/25 Intake/Output Summary (Last 24 hours) at 04/25/2025 1013 Last data filed at 04/24/2025 1800 Gross per 24 hour Intake 2894 ml Output 700 ml Net 2194 ml I/O last 3 completed shifts: In: 2894 (46.9 mL/kg) [P.O.:800; I.V.:1972 (32 mL/kg); IV Piggyback:122] Out: 1900 (30.8 mL/kg) [Urine:1900 (0.9 mL/kg/hr)] Weight: 61.7 kg Safety Concerns: history of falls (last 30 days) and at risk for falls Impairments/Disabilities: none Nutrition Therapy: Current Nutrition Therapy: Oral diet: general Routes of Feeding: oral Liquids: thin liquids Daily Fluid Restriction: no Last Modified Barium Swallow with Video (Video Swallowing Test): not done Treatments at the Time of Hospital Discharge: Respiratory Treatments: N/A Oxygen Therapy: is not on home oxygen therapy. Ventilator: No ventilator support Rehab Therapies: physical therapy, occupational therapy, and speech therapy Weight Bearing Status/Restrictions: weight bearing as tolerated Other Medical Equipment (for information only, NOT a DME order): wheeled walker Other Treatments: N/A Patient's personal belongings (please select all that are sent with patient): jerzy RN SIGNATURE: MANAGEMENT/SOCIAL WORK SECTION Inpatient Status Date: 04/21/2025 Discharging to Facility/ Agency Name: [facility] Phone: [phone] Address: [address] [place] [address] Dialysis Facility (if applicable) Name: Address: Dialysis Schedule: Phone: Fax: Personnel Technician/Bill Of Materials Clerk signature: ICIAN SECTION Name: Maday Alfaro 84-year-old female presented with mechanical fall with left hip pain on April 21. Patient revealed left intra trochanteric hip fracture with subtrochanteric extension. April 21 underwent InterTAN nailing of left intertrochanteric fracture by Dr. Meng. Fortunately patient was hypotensive requiring neoepinephrine and epinephrine. Patient was started on Levophed in PACU and ICU was consulted. Cardiology signed off on April 25. Cardiology ordered 30-day outpatient event monitor. Cardiology was consulted for paroxysmal atrial fibrillation recommended no oral anticoagulation due to anemia and patient is in current sinus rhythm. Patient was started on amiodarone drip and no recommendation to transition to oral by cardiology. April 24 patient was weaned off of vasopressors. Cardiology recommends holding outpatient lisinopril 20 mg daily and reinitiate if needed. Geriatric medicine was consulted for a fall leading to a fracture. Multifactorial risk factors for falling including deconditioning medication effect and seizures. ECHO Left Ventricle: Left ventricle is smaller than normal. Basal septal thickening. Hyperdynamic left ventricular systolic function. EF by 2D Simpsons Biplane is 87%. Normal wall motion.Right Ventricle: Right ventricle size is normal. Normal systolic function.No significant valvular abnormalities. Hypotension resolved Paroxysmal atrial fibrillation cardiology recommending holding anticoagulation given anemia. Follow-up with cardiology outpatient regarding ongoing management and initiating anticoagulation on outpatient basis Shock requiring vasopressors Left intertrochanteric hip fracture with subtrochanteric extension status post InterTAN nailing of left intertrochanteric fracture by Dr. Meng on April 21 Anxiety Orthostatic hypotension resolved Depression Hypertension Hyperlipidemia Citic anemia, April 21 hemoglobin 14.8 April 28 hemoglobin 7.8 Continue aspirin Dilantin sertraline Physician Certification: I certify the above information and transfer of Maday Alfaro is necessary for the continuing treatment of the diagnosis listed and that she requires [facility]ci facility for less than 30 days. PHYSICIAN SIGNATURE: documented in this encounter [facility] 04-21-2025 Emergency department Note RN at bedside to introduce self. Pt accompanied by son, daughter in law and granddaughter. Pt denies pain states when I am just laying here theres no pain. Pt educated on need for hicks catheter. Pt tolerated procedure. Pt belongings of one pair small yellow hoop earrings, brown slippers and glasses given to family in pt belonging bag. [facility] 04-21-2025 Emergency department Note RN at bedside to introduce self. Pt accompanied by son, daughter in law and granddaughter. Pt denies pain states when I am just laying here theres no pain. Pt educated on need for hicks catheter. Pt tolerated procedure. Pt belongings of one pair small yellow hoop earrings, brown slippers and glasses given to family in pt belonging bag. Report given to Idris FUENTES Pt covered in urine wet and cold upon arrival to ed. Pt given the option to salvage clothing but stated to just cut it off to reduce pain . Pt dry cleaned placed in hospital robe and had no needs at this time . EMERGENCY DEPARTMENT ENCOUNTER Pt Name: Maday Alfaro Birthdate 1940 Date of evaluation: 04/21/2025 ED Provider: Brant Preciado DO CHIEF COMPLAINT Chief Complaint Patient presents with Hip Pain Hip pain post fall. Pt was down for about four hours. Pt has c/o left hip and leg pain . Shortening and rotation noted . HISTORY OF PRESENT ILLNESS (Location/Symptom, Timing/Onset, Context/Setting, Quality, Duration, Modifying Factors, Severity) Note limiting factors. I wore appropriate PPE for the entirety of this encounter. HPI Maday Alfaro is a 84 y.o. female who presents to the emergency department with chief complaint of left hip pain status post fall. She presents via EMS after being found down in her home for 4 hours. She reports that she was walking to her kitchen when she lost her balance and fell. She does not believe she hit her head or lost consciousness. She is mainly complaining of left hip pain. Denies any preceding symptoms such as presyncope, syncope, seizure, chest pain, shortness of breath, dizziness, or lightheadedness. Denies any other complaints. Nursing Notes were reviewed. Limitations to history: None Outside historians: None REVIEW OF SYSTEMS Review of Systems Constitutional: Negative for chills, fatigue and fever. Respiratory: Negative for shortness of breath and wheezing. Cardiovascular: Negative for chest pain, palpitations and leg swelling. Gastrointestinal: Negative for constipation, diarrhea, nausea and vomiting. Musculoskeletal: Positive for arthralgias (Left hip). Negative for back pain, neck pain and neck stiffness. Neurological: Negative for dizziness, seizures, weakness, light-headedness, numbness and headaches. Psychiatric/Behavioral: Negative for confusion and decreased concentration. PAST MEDICAL HISTORY Medical History[1] SURGICAL HISTORY Surgical History[2] CURRENT MEDICATIONS Previous Medications ACETAMINOPHEN (TYLENOL) 500 MG TABLET Take 2 tablets (1,000 mg) by mouth every 6 hours as needed for mild pain (1-3). ASPIRIN 81 MG CHEWABLE TABLET Chew 1 tablet in the morning. EPINEPHRINE (EPIPEN) 0.3 MG/0.3ML INJECTION SYRINGE inject 0.3 milliliters ( 0.3 milligrams ) intramuscularly in OUTE... (REFER TO PRESCRIPTION NOTES). LISINOPRIL 20 MG TABLET Take 1 tablet by mouth in the morning. OXYCODONE (ROXICODONE) 5 MG IMMEDIATE RELEASE TABLET Take 1 tablet (5 mg) by mouth every 6 hours as needed for severe pain (7-10). PHENYTOIN ER (DILANTIN) 100 MG CAPSULE Take 200 mg by mouth in the morning and 200 mg before bedtime. SERTRALINE (ZOLOFT) 100 MG TABLET TEMAZEPAM (RESTORIL) 15 MG CAPSULE Take 15 mg by mouth every 24 hours as needed. ALLERGIES Bee venom, Lidocaine, Penicillins, Sulfa antibiotics, Varenicline, Penicillin g, and Simvastatin FAMILY HISTORY Family History[3] SOCIAL HISTORY Social History[4] SCREENINGS Percival Coma Scale Best Eye Response: Spontaneous Best Verbal Response: Oriented Best Motor Response: Follows commands Nellie Coma Scale Score: 15 PHYSICAL EXAM ED Triage Vitals Temp Pulse Resp BP -- -- -- -- SpO2 Temp src Heart Rate Source Patient Position -- -- -- -- BP Location FiO2 (%) -- -- Physical Exam Constitutional: General: She is not in acute distress. Appearance: She is not ill-appearing or toxic-appearing. HENT: Head: Normocephalic and atraumatic. Eyes: Extraocular Movements: Extraocular movements intact. Pupils: Pupils are equal, round, and reactive to light. Cardiovascular: Rate and Rhythm: Normal rate and regular rhythm. Pulmonary: Effort: Pulmonary effort is normal. Abdominal: General: Abdomen is flat. There is no distension. Palpations: Abdomen is soft. There is no mass. Tenderness: There is no abdominal tenderness. Musculoskeletal: General: Tenderness (Significant tenderness to palpation over her left hip and pelvis.) and deformity (Left leg peers to be shortened and internally rotated.) present. No swelling or signs of injury. Cervical back: No rigidity or tenderness. Comments: Neurovascularly intact bilaterally. Sensation intact fully Neurological: General: No focal deficit present. Mental Status: She is alert and oriented to person, place, and time. Sensory: No sensory deficit. Motor: No weakness. Psychiatric: Mood and Affect: Mood normal. Behavior: Behavior normal. Thought Content: Thought content normal. Judgment: Judgment normal. DIAGNOSTIC RESULTS Procedures/EKG: EKG was reviewed by myself. Physician EKG interpretation can be found in [facility] RADIOLOGY (Per Emergency Physician): X-ray of the left hip shows comminuted intertrochanteric fracture with varus angulation. 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 Interpretation per the Radiologist below, if available at the time of this note: XR hip left 2 or 3 views Final Result XR femur left 2+ views (Results Pending) XR chest 1 view (Results Pending) ED BEDSIDE ULTRASOUND: Performed by ED Physician - none LABS: Labs Reviewed CBC (HEMOGRAM) - Abnormal Result Value Auto WBC 14.1 (*) RBC 4.47 Hemoglobin 14.8 Hematocrit 45.0 MCV 100.7 (*) MCH 33.1 MCHC 32.9 RDW 13.2 Platelets 150 MPV 10.6 COMPREHENSIVE METABOLIC PANEL - Abnormal SODIUM 135 (*) POTASSIUM 3.6 CHLORIDE 101 CARBON DIOXIDE 22 (*) ANION GAP 12 UREA NITROGEN 15 CREATININE 0.66 GLUCOSE 146 (*) CALCIUM 9.6 AST (SGOT) 24 ALT 17 ALKALINE PHOSPHATASE 212 (*) ALBUMIN 4.1 BILIRUBIN, TOTAL 0.8 TOTAL PROTEIN 7.5 eGFR 87.2 CK - Normal CK 112 PROTIME & APTT - Normal PROTHROMBIN TIME 11.3 INR 1.1 APTT 27.9 BLOOD TYPE AND SCREEN GEL ABO Grouping O Antibody Screen NEG Rh Type POS CONFIRMATORY ABO/RH ABO Grouping O Rh Type POS PROTHROMBIN TIME All other labs were within normal range or not returned as of this dictation. EMERGENCY DEPARTMENT COURSE and DIFFERENTIAL DIAGNOSIS/MDM: Vitals: Vitals: 04/21/25 1100 04/21/25 1206 BP: 135/79 (!) 155/83 Pulse: 84 64 Resp: 19 18 Temp: 36.4 C (97.5 F) TempSrc: Axillary SpO2: 96% 97% 84-year-old female presenting via EMS status post mechanical fall at home. She was on the ground for about 4 hours before being able to get help. Denies any preceding symptoms to the fall, she states that she just felt like she lost her balance. On exam, she is alert and oriented x 3, mainly complaining of left hip pain. She has significant tenderness overlying the left hip, compression of the pelvis reveals no laxity. The left leg does appear to be shortened and rotated. Will get x-ray of the left hip and treat pain with 50 mcg of fentanyl IV. MDM elements: The patient presented with chief complaint of left hip pain., The differential diagnosis associated with this patient's presentation includes fracture, sprain, dislocation., Our workup consisted of ordering/reviewing: X-ray., and Patient is in agreement with this plan. Medications fentaNYL (Sublimaze) injection 50 mcg (50 mcg IntraVENous Given 04/21/25 1101) REVAL: X-ray shows left comminuted intertrochanteric fracture of the hip with varus angulation. Will plan to admit with orthopedic surgery to consult. Patient reevaluated, she had just received fentanyl. Will reassess for pain control. Discussed admission and orthopedic surgery will come and see her. Patient understanding and agreeable. CONSULTS: IP CONSULT TO ORTHOPAEDIC SURGERY PROCEDURES: Unless otherwise noted below, none Patients symptoms are consistent with sepsis, severe sepsis, or septic shock (If yes use .sepsiscoremeasure): N/A FINAL IMPRESSION 1. Closed intertrochanteric fracture of hip, left, initial encounter ([facility]) 2. Closed displaced intertrochanteric fracture of left femur, initial encounter ([facility]) DISPOSITION Admit 04/21/2025 11:46:27 AM PATIENT REFERRED TO: No follow-up provider specified. DISCHARGE MEDICATIONS: New Prescriptions No medications on file (Comment: Please note this report has been produced using speech recognition software and may contain errors related to that system including errors in grammar, punctuation, and spelling, as well as words and phrases that may be inappropriate. If there are any questions or concerns please feel free to contact the dictating provider for clarification.) Brant Preciado, (electronically signed) Emergency Medicine Provider [1] Past Medical History: Diagnosis Date Hypertension Seizures ([facility]) [2] Past Surgical History: Procedure Laterality Date EYE SURGERY HYSTERECTOMY [3] Family History Problem Relation Name Age of Onset Stroke Mother Heart disease Father Heart attack Father Coronary artery disease Father [4] Social History Socioeconomic History Marital status: Tobacco Use Smoking status: Every Day Types: Cigarettes Smokeless tobacco: Never Vaping Use Vaping status: Never Used Substance and Sexual Activity Alcohol use: No Luke A Ozzy, DO Resident 04/21/25 1223 Cosigned by Elliott Navarro MD at 04/21/2025 3:19 PM EDT Emergency Department Encounter [facility] EMERGENCY DEPT Patient: Maday Alfaro : 1940 Date of Evaluation: 04/21/2025 ED Supervising Physician: Elliott Navarro MD I personally evaluated Maday Alfaro and made/approved the management plan and take responsibility for the patient management. This will serve as my Supervisory note and shared attestation. I did perform a substantive portion of the visit including all aspects of the Medical Decision Making. I wore appropriate PPE for the entirety of this encounter. In brief, Maday Alfaro is a 84 y.o. that presents to the emergency department with left hip pain after a fall, she was down on the ground for about 4 hours when she was found Focused exam: Tenderness and swelling left hip, neurovasc intact distally Brief ED course/MDM: Patient was given fentanyl for pain control, x-ray shows comminuted left intertrochanteric fracture, orthopedics consulted, admitted to the hospitalist Diagnostics interpreted by me: EKG(s) EKG interpreted by me shows normal sinus rhythm no acute ST or T wave changes see Epiphany for full interpretation Xray(s) interpreted by me shows comminuted left intertrochanteric fracture I personally discussed the patient's management with other clinicians: Admitting team and orthopedics All diagnostic, treatment, and disposition decisions were made by myself in conjunction with the Resident. I also supervised keys portions of any procedures performed by the Resident. For all further details of the patient's emergency department visit, please see their documentation. (Comment: Please note this report has been produced using speech recognition software and may contain errors related to that system including errors in grammar, punctuation, and spelling, as well as words and phrases that may be inappropriate. If there are any questions or concerns please feel free to contact the dictating provider for clarification.) Elliott Navarro MD [employer] Elliott Navarro MD 04/21/25 1223 documented in this encounter [facility] 04-21-2025 Emergency department Note Report given to Idris FUENTES [facility] 04-21-2025 History and physical note Attending History and Physical Admit Date: 04/21/2025 PCP: CHRISTIAN HARRISON NP CHIEF COMPLAINT: Mechanical fall with hip pain Reason for Admission: Left intratrochanteric hip fracture with subtrochanteric extension History Obtained From: patient / Chart HISTORY OF PRESENT ILLNESS: Maday is a 84 y.o. female with PMHx of HTN, seizure, insomnia and HLD is presenting for left hip pain after mechanical fall. Patient reports that she was walking to her kitchen when she lost her balance and fell. Patient denies lightheadedness, dizziness or any other presyncopal symptoms prior to fall. Patient denies loss of consciousness and does not think she hit her head. Patient reports acute left-sided hip pain which is described as sharp. Patient denies recent seizure, fever, chills, nausea and vomiting. Patient denies tobacco, alcohol and drug use. Patient is a full code. Prior to this event, patient was able to walk 1 block and up a flight of stairs without chest pain or shortness of breath. I evaluated patient in PACU and she was alert and orient x 3. Patient states that she has some mild left-sided hip pain and was feeling very cold. In ED, vital signs stable, labs significant for sodium 135, creatinine 0.66, glucose 146, CK1 12, WBC 14, x-ray of left hip with acute commuted intertrochanteric fracture of left hip with varus angulation. Ortho saw patient and will be taking patient to OR today for left hip CMN. Past Medical History: Medical History[1] Past Surgical History: Surgical History[2] Social History: Social History Socioeconomic History Marital status: Spouse name: Not on file Number of children: Not on file Years of education: Not on file Highest education level: Not on file Occupational History Not on file Tobacco Use Smoking status: Every Day Types: Cigarettes Smokeless tobacco: Never Vaping Use Vaping status: Never Used Substance and Sexual Activity Alcohol use: No Drug use: Not on file Sexual activity: Not on file Other Topics Concern Not on file Social History Narrative Not on file Social Drivers of Health Financial Resource Strain: Not on file Food Insecurity: Not on file Transportation Needs: Not on file Physical Activity: Not on file Stress: Not on file Social Connections: Not on file Intimate Partner Violence: Not on file Housing Stability: Not on file Family History: Family History[3] Medications Prior to Admission: Current Medications[4] Medications Reconciliation: Medication were unable to be reviewed as none on file and unable to contact family, pharmacy and patient mental status is altered. Allergies: Allergies[5] REVIEW OF SYSTEMS: 10 point ROS obtained, as per HPI, otherwise NEG Vitals: BP (!) 155/83 Pulse 64 Temp 36.4 C (97.5 F) (Axillary) Resp 18 SpO2 97% BMI Classification: Normal Weight (BMI 18.5-24.9) Pulse Ox: SpO2 Av.5 % Min: 96 % Max: 97 % Supplemental O2: PHYSICAL EXAM: Physical Exam Constitutional: Appearance: She is normal weight. She is not ill-appearing. Cardiovascular: Rate and Rhythm: Normal rate. Heart sounds: No murmur heard. Pulmonary: Effort: No respiratory distress. Breath sounds: Normal breath sounds. No wheezing. Abdominal: Palpations: There is no mass. Tenderness: There is no abdominal tenderness. There is no guarding. Musculoskeletal: General: Normal range of motion. Right lower leg: No edema. Left lower leg: No edema. Skin: General: Skin is warm. Findings: No lesion or rash. Neurological: Mental Status: She is alert and oriented to person, place, and time. Mental status is at baseline. Motor: No weakness. DATA: CBC: Recent Labs 04/21/25 1016 WBC 14.1* RBC 4.47 HGB 14.8 HCT 45.0 MCV 100.7* RDW 13.2 PLT 150 BMP: Recent Labs 04/21/25 1016 NA 135* K 3.6 CL 101 CO2 22* BUN 15 CREATININE 0.66 GLUCOSE 146* CALCIUM 9.6 ANIONGAP 12 LIVER PROFILE: Recent Labs 04/21/25 1016 AST 24 ALT 17 BILITOT 0.8 ALKPHOS 212* PROT 7.5 PT/INR: Recent Labs 04/21/25 1157 PROTIME 11.3 INR 1.1 CARDIAC ENZYMES: No results for input(s): TROPONINI in the last 72 hours. Procalcitonin: No results found for: PROCAL Urine Culture: No results found for this or any previous visit. COVID-19 PCR: No results for input(s): COVID19 in the last 72 hours. I reviewed: [x] laboratory results [x] radiographic results At the time of today's encounter. Pt was advised of the results. Data: (CAT1) Reviewed 3 or more notes from different specialty or health system (each=1). (CAT1) Reviewed 3 or more labs/studies ordered by another provider not previously counted (each=1, panels count as 1). (CAT1) Reviewed 3 or more labs/studies previously ordered by me not previously counted (each=1, panels count as 1). (LOW: 2x CAT1 or independent historian MOD: 3x CAT1 or 1x CAT3 EXTENSIVE: 3x CAT1 and 1x CAT3) Assessment Discussed management with the ED provider and agree with hospitalization. Acute, acute on chronic, unstable/uncontrolled chronic problems/diagnoses: # Left intratrochanteric hip fracture with subtrochanteric extension # Mechanical fall - Patient's leg gave weak and she fell onto her left hip causing above fracture - Ortho to take patient to the OR for left CMN today, 04/21 -N.p.o. - Patient is medically optimized Stable chronic problems affecting care, new non-acute diagnoses: # HTN # Seizure # HLD # Insomnia Plan As a result of the above findings & factors, the following mgmt was pursued: - As above - am labs, replace lytes prn - PT/OT/CM/SW - delirium precautions: increase activity - DVT prophylaxis: SCDs and encourage ambulation Complexity: Acute illness or injury posing a threat to life or body function (HIGH). Risk: Admission to hospital-level care was considered or occurred (HIGH). Consult to surgery for emergency major surgery, or major surgery with identified patient or procedural risk factors, was considered or occurred (HIGH). Advance Directive: No Order Anticipated Discharge - Date - 2-3 days - Location - [facility] - Pending the following - OR with Ortho and PT/OT Total time spent (which include face to face and non face to face encounters) : 55 minutes. Extended Emergency Contact Information Primary Emergency Contact: Jono Fragoso Mobile Relation: Son Secondary Emergency Contact: Madelin Huang Relation: Sister [employer] Maday Alfaro : 1940 Primary Care Physician: CHRISTIAN HARRISON NP The patient and/or family/surrogate voluntarily agreed to participate in ACP services. 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 [Condition that instigated the ACP on this DOS, relevant PMH, functional status, goals of care, and whom this was discussed with including names and relationship to the patient, and any relevant advance care documentation discussion] I answered all the patient/family questions that I could within the range and scope of the current medical situation. We discussed the medical conditions, risks, benefits, outcomes, and goals of care at this time for the patient's medical issues at hand in the face of the patient's chronic issues and current presentation. Total time spent: 3 minutes were spent discussing the patient's resuscitation status, advance care planning, and end of life care, with patient and/or family/surrogate. Miller Lee DO Division of Hospitalist Medicine Acute care [facility] [1] Past Medical History: Diagnosis Date Hypertension Seizures (HCC) [2] Past Surgical History: Procedure Laterality Date EYE SURGERY HYSTERECTOMY [3] Family History Problem Relation Name Age of Onset Stroke Mother Heart disease Father Heart attack Father Coronary artery disease Father [4] No current facility-administered medications for this encounter. Current Outpatient Medications: acetaminophen (Tylenol) 500 MG tablet, Take 2 tablets (1,000 mg) by mouth every 6 hours as needed for mild pain (1-3)., Disp: 30 tablet, Rfl: 0 aspirin 81 MG chewable tablet, Chew 1 tablet in the morning., Disp: , Rfl: EPINEPHrine (Epipen) 0.3 MG/0.3ML injection syringe, inject 0.3 milliliters ( 0.3 milligrams ) intramuscularly in OUTE... (REFER TO PRESCRIPTION NOTES)., Disp: , Rfl: lisinopril 20 MG tablet, Take 1 tablet by mouth in the morning., Disp: , Rfl: oxyCODONE (Roxicodone) 5 MG immediate release tablet, Take 1 tablet (5 mg) by mouth every 6 hours as needed for severe pain (7-10)., Disp: 12 tablet, Rfl: 0 phenytoin ER (Dilantin) 100 MG capsule, Take 200 mg by mouth in the morning and 200 mg before bedtime., Disp: , Rfl: sertraline (Zoloft) 100 MG tablet, , Disp: , Rfl: temazepam (Restoril) 15 MG capsule, Take 15 mg by mouth every 24 hours as needed., Disp: , Rfl: [5] Allergies Allergen Reactions Bee Venom Anaphylaxis Lidocaine Shortness of breath Penicillins Nausea Only Sulfa Antibiotics Nausea Only Varenicline Nausea And Vomiting Penicillin G Rash Simvastatin Rash [employer] Phone: 04-21-2025 Note [employer] [facility] 04-21-2025 History and physical note Attending History and Physical Admit Date: 04/21/2025 PCP: CHRISTIAN HARRISON NP CHIEF COMPLAINT: Mechanical fall with hip pain Reason for Admission: Left intratrochanteric hip fracture with subtrochanteric extension History Obtained From: patient / Chart HISTORY OF PRESENT ILLNESS: Maday is a 84 y.o. female with PMHx of HTN, seizure, insomnia and HLD is presenting for left hip pain after mechanical fall. Patient reports that she was walking to her kitchen when she lost her balance and fell. Patient denies lightheadedness, dizziness or any other presyncopal symptoms prior to fall. Patient denies loss of consciousness and does not think she hit her head. Patient reports acute left-sided hip pain which is described as sharp. Patient denies recent seizure, fever, chills, nausea and vomiting. Patient denies tobacco, alcohol and drug use. Patient is a full code. Prior to this event, patient was able to walk 1 block and up a flight of stairs without chest pain or shortness of breath. I evaluated patient in PACU and she was alert and orient x 3. Patient states that she has some mild left-sided hip pain and was feeling very cold. In ED, vital signs stable, labs significant for sodium 135, creatinine 0.66, glucose 146, CK1 12, WBC 14, x-ray of left hip with acute commuted intertrochanteric fracture of left hip with varus angulation. Ortho saw patient and will be taking patient to OR today for left hip CMN. Past Medical History: Medical History[1] Past Surgical History: Surgical History[2] Social History: Social History Socioeconomic History Marital status: Spouse name: Not on file Number of children: Not on file Years of education: Not on file Highest education level: Not on file Occupational History Not on file Tobacco Use Smoking status: Every Day Types: Cigarettes Smokeless tobacco: Never Vaping Use Vaping status: Never Used Substance and Sexual Activity Alcohol use: No Drug use: Not on file Sexual activity: Not on file Other Topics Concern Not on file Social History Narrative Not on file Social Drivers of Health Financial Resource Strain: Not on file Food Insecurity: Not on file Transportation Needs: Not on file Physical Activity: Not on file Stress: Not on file Social Connections: Not on file Intimate Partner Violence: Not on file Housing Stability: Not on file Family History: Family History[3] Medications Prior to Admission: Current Medications[4] Medications Reconciliation: Medication were unable to be reviewed as none on file and unable to contact family, pharmacy and patient mental status is altered. Allergies: Allergies[5] REVIEW OF SYSTEMS: 10 point ROS obtained, as per HPI, otherwise NEG Vitals: BP (!) 155/83 Pulse 64 Temp 36.4 C (97.5 F) (Axillary) Resp 18 SpO2 97% BMI Classification: Normal Weight (BMI 18.5-24.9) Pulse Ox: SpO2 Av.5 % Min: 96 % Max: 97 % Supplemental O2: PHYSICAL EXAM: Physical Exam Constitutional: Appearance: She is normal weight. She is not ill-appearing. Cardiovascular: Rate and Rhythm: Normal rate. Heart sounds: No murmur heard. Pulmonary: Effort: No respiratory distress. Breath sounds: Normal breath sounds. No wheezing. Abdominal: Palpations: There is no mass. Tenderness: There is no abdominal tenderness. There is no guarding. Musculoskeletal: General: Normal range of motion. Right lower leg: No edema. Left lower leg: No edema. Skin: General: Skin is warm. Findings: No lesion or rash. Neurological: Mental Status: She is alert and oriented to person, place, and time. Mental status is at baseline. Motor: No weakness. DATA: CBC: Recent Labs 04/21/25 1016 WBC 14.1* RBC 4.47 HGB 14.8 HCT 45.0 MCV 100.7* RDW 13.2 PLT 150 BMP: Recent Labs 04/21/25 1016 NA 135* K 3.6 CL 101 CO2 22* BUN 15 CREATININE 0.66 GLUCOSE 146* CALCIUM 9.6 ANIONGAP 12 LIVER PROFILE: Recent Labs 04/21/25 1016 AST 24 ALT 17 BILITOT 0.8 ALKPHOS 212* PROT 7.5 PT/INR: Recent Labs 04/21/25 1157 PROTIME 11.3 INR 1.1 CARDIAC ENZYMES: No results for input(s): TROPONINI in the last 72 hours. Procalcitonin: No results found for: PROCAL Urine Culture: No results found for this or any previous visit. COVID-19 PCR: No results for input(s): COVID19 in the last 72 hours. I reviewed: [x] laboratory results [x] radiographic results At the time of today's encounter. Pt was advised of the results. Data: (CAT1) Reviewed 3 or more notes from different specialty or health system (each=1). (CAT1) Reviewed 3 or more labs/studies ordered by another provider not previously counted (each=1, panels count as 1). (CAT1) Reviewed 3 or more labs/studies previously ordered by me not previously counted (each=1, panels count as 1). (LOW: 2x CAT1 or independent historian MOD: 3x CAT1 or 1x CAT3 EXTENSIVE: 3x CAT1 and 1x CAT3) Assessment Discussed management with the ED provider and agree with hospitalization. Acute, acute on chronic, unstable/uncontrolled chronic problems/diagnoses: # Left intratrochanteric hip fracture with subtrochanteric extension # Mechanical fall - Patient's leg gave weak and she fell onto her left hip causing above fracture - Ortho to take patient to the OR for left CMN today, 04/21 -N.p.o. - Patient is medically optimized Stable chronic problems affecting care, new non-acute diagnoses: # HTN # Seizure # HLD # Insomnia Plan As a result of the above findings & factors, the following mgmt was pursued: - As above - am labs, replace lytes prn - PT/OT/CM/SW - delirium precautions: increase activity - DVT prophylaxis: SCDs and encourage ambulation Complexity: Acute illness or injury posing a threat to life or body function (HIGH). Risk: Admission to hospital-level care was considered or occurred (HIGH). Consult to surgery for emergency major surgery, or major surgery with identified patient or procedural risk factors, was considered or occurred (HIGH). Advance Directive: No Order Anticipated Discharge - Date - 2-3 days - Location - SN[facility] - Pending the following - OR with Ortho and PT/OT Total time spent (which include face to face and non face to face encounters) : 55 minutes. Extended Emergency Contact Information Primary Emergency Contact: Jono Fragoso Mobile Relation: Son Secondary Emergency Contact: AnandajulietajasmineMadelin Relation: Sister [employer] Maday Alfaro : 1940 Primary Care Physician: CHRISTIAN HARRISON NP The patient and/or family/surrogate voluntarily agreed to participate in ACP services. 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 [Condition that instigated the ACP on this DOS, relevant PMH, functional status, goals of care, and whom this was discussed with including names and relationship to the patient, and any relevant advance care documentation discussion] I answered all the patient/family questions that I could within the range and scope of the current medical situation. We discussed the medical conditions, risks, benefits, outcomes, and goals of care at this time for the patient's medical issues at hand in the face of the patient's chronic issues and current presentation. Total time spent: 3 minutes were spent discussing the patient's resuscitation status, advance care planning, and end of life care, with patient and/or family/surrogate. Miller Lee DO Division of Hospitalist Medicine [facility] [1] Past Medical History: Diagnosis Date Hypertension Seizures (HCC) [2] Past Surgical History: Procedure Laterality Date EYE SURGERY HYSTERECTOMY [3] Family History Problem Relation Name Age of Onset Stroke Mother Heart disease Father Heart attack Father Coronary artery disease Father [4] No current facility-administered medications for this encounter. Current Outpatient Medications: acetaminophen (Tylenol) 500 MG tablet, Take 2 tablets (1,000 mg) by mouth every 6 hours as needed for mild pain (1-3)., Disp: 30 tablet, Rfl: 0 aspirin 81 MG chewable tablet, Chew 1 tablet in the morning., Disp: , Rfl: EPINEPHrine (Epipen) 0.3 MG/0.3ML injection syringe, inject 0.3 milliliters ( 0.3 milligrams ) intramuscularly in OUTE... (REFER TO PRESCRIPTION NOTES)., Disp: , Rfl: lisinopril 20 MG tablet, Take 1 tablet by mouth in the morning., Disp: , Rfl: oxyCODONE (Roxicodone) 5 MG immediate release tablet, Take 1 tablet (5 mg) by mouth every 6 hours as needed for severe pain (7-10)., Disp: 12 tablet, Rfl: 0 phenytoin ER (Dilantin) 100 MG capsule, Take 200 mg by mouth in the morning and 200 mg before bedtime., Disp: , Rfl: sertraline (Zoloft) 100 MG tablet, , Disp: , Rfl: temazepam (Restoril) 15 MG capsule, Take 15 mg by mouth every 24 hours as needed., Disp: , Rfl: [5] Allergies Allergen Reactions Bee Venom Anaphylaxis Lidocaine Shortness of breath Penicillins Nausea Only Sulfa Antibiotics Nausea Only Varenicline Nausea And Vomiting Penicillin G Rash Simvastatin Rash documented in this encounter [facility] 04-21-2025 Consult note Associated Order (s): IP CONSULT TO ORTHOPAEDIC SURGERY Ortho Consult Patient: Maday Alfaro Date of : 1940 Acct: [id number] PCP: CHRISTIAN HARRISON NP Date of Admission: 04/21/2025 Date of Service: Pt seen/examined on 04/21/2025 Chief Complaint: L hip pain History Of Present Illness: 84 y.o. female who presents with L hip pain after a fall from standing. The patient was unable to get up for around 4 hours and had to call for help. Denies significant pain besides L hip. Denies head trauma and loss of consciousness. Denies numbness and tingling in affected extremity. Denies fever or chills. Denies any previous orthopaedic surgery history. Patient ambulation status: ambulates with: cane and walker. Primarily household Ambulator. Antiplatelets/Anticoagulation includes: ASA. Endorses tobacco use, 1 pack/day. Denies alcohol or IV drug use. Hx from chart and/or Pt. Past Medical History: Medical History[1] Past Surgical History: Surgical History[2] Home Medications: Prior to Admission medications Medication Sig Start Date End Date Taking? Authorizing Provider acetaminophen (Tylenol) 500 MG tablet Take 2 tablets (1,000 mg) by mouth every 6 hours as needed for mild pain (1-3). 07/15/24 Nguyễn Caal, aspirin 81 MG chewable tablet Chew 1 tablet in the morning. 08/07/18 Historical Provider, EPINEPHrine (Epipen) 0.3 MG/0.3ML injection syringe inject 0.3 milliliters ( 0.3 milligrams ) intramuscularly in OUTE... (REFER TO PRESCRIPTION NOTES). 12/20/22 Historical Provider, lisinopril 20 MG tablet Take 1 tablet by mouth in the morning. 10/26/18 Historical Provider, oxyCODONE (Roxicodone) 5 MG immediate release tablet Take 1 tablet (5 mg) by mouth every 6 hours as needed for severe pain (7-10). 07/15/24 Nguyễn Caal DO phenytoin ER (Dilantin) 100 MG capsule Take 200 mg by mouth in the morning and 200 mg before bedtime. Historical Provider, sertraline (Zoloft) 100 MG tablet 09/09/23 Historical Provider, temazepam (Restoril) 15 MG capsule Take 15 mg by mouth every 24 hours as needed. Historical Provider, Current Hospital Medications: Current Medications[3] Allergies: Bee venom, Lidocaine, Penicillins, Sulfa antibiotics, Varenicline, Penicillin g, and Simvastatin Social History: Social History Socioeconomic History Marital status: Spouse name: Not on file Number of children: Not on file Years of education: Not on file Highest education level: Not on file Occupational History Not on file Tobacco Use Smoking status: Every Day Types: Cigarettes Smokeless tobacco: Never Vaping Use Vaping status: Never Used Substance and Sexual Activity Alcohol use: No Drug use: Not on file Sexual activity: Not on file Other Topics Concern Not on file Social History Narrative Not on file Social Drivers of Health Financial Resource Strain: Not on file Food Insecurity: Not on file Transportation Needs: Not on file Physical Activity: Not on file Stress: Not on file Social Connections: Not on file Intimate Partner Violence: Not on file Housing Stability: Not on file Family History: Family History[4] Further Family History is noncontributory to this injury. REVIEW OF SYSTEMS: Review of Systems - General ROS: negative for - chills, fatigue, fever, malaise or night sweats Psychological ROS: negative Ophthalmic ROS: negative ENT ROS: negative for - headaches or sore throat Hematological and Lymphatic ROS: negative for - bleeding problems or blood clots Respiratory ROS: no cough, shortness of breath, or wheezing Cardiovascular ROS: no chest pain or dyspnea on exertion Gastrointestinal ROS: negative Musculoskeletal ROS: See HPI Neurological ROS: negative for - bowel and bladder control changes, gait disturbance or numbness/tingling All other systems reviewed and are negative PHYSICAL EXAM: BP 129/54 Pulse 70 Temp 36.4 C (97.5 F) (Axillary) Resp 16 SpO2 96% GENERAL APPEARANCE: Awake and oriented x 3. No acute distress, except appropriate to injury. MOOD AND AFFECT: Calm appropriate to situation GAIT AND STATION: Patient is in bed and unable to ambulate secondary to known injury. REFLEXES: Not assessed COORDINATION and BALANCE: Patient is grossly coordinated unable to ambulate secondary to known injury. Right Upper Extremity: -No obvious pain or deformity to inspection with normal joint range of motion, stability, and muscle strength except noted below -No TTP over clavicle, shoulder, humerus, elbow, forearm, wrist, hand, or fingers -TTP: nontender throughout extremity -Radial pulse palpable -SILT in radial/median/ ulnar nerve distributions -Motor + AIN/PIN/ulnar nerve functions -Skin intact except where noted below -Painless pROM at shoulder/elbow/wrist Atraumatic Left Upper Extremity: -No obvious pain or deformity to inspection with normal joint range of motion, stability, and muscle strength except noted below -No TTP over clavicle, shoulder, humerus, elbow, forearm, wrist, hand, or fingers -TTP: nontender throughout extremity -Radial pulse palpable -SILT in radial/median/ ulnar nerve distributions -Motor + AIN/PIN/ulnar nerve functions -Skin intact except where noted below -Painless pROM at shoulder/elbow/wrist Atraumatic Right lower Extremity: -No obvious pain or deformity to inspection with normal joint range of motion, stability, and muscle strength except noted below. Extremity shortened and externally rotated. Skin over lateral hip is clean and dry without signs of wounds or breakdown. -No TTP over pelvis, hip, thigh, knee, tibia, lateral mal, medial mal, calc, midfoot, forefoot -TTP: Nontender throughout extremity -Pulse: DP Palpable, PT Palpable -SILT in the superficial peroneal, deep peroneal, tibial, sural, saphenous nerve distributions -Motor function of tibialis anterior, extensor hallucis longus, and gactrocsoleus complex intact -Skin intact except where noted below -Painless pROM at knee/ankle Atraumatic Left lower Extremity: -No obvious pain or deformity to inspection with normal joint range of motion, stability, and muscle strength except noted below -No TTP over knee, tibia, lateral mal, medial mal, calc, midfoot, forefoot -TTP: hip and thigh -Pulse: PT Palpable, toes WWP -SILT in the superficial peroneal, deep peroneal, tibial, sural, saphenous nerve distributions -Motor function of quad, tibialis anterior, extensor hallucis longus, and gactrocsoleus complex intact -Skin intact except where noted below -Painless pROM at knee/ankle - + Logroll Left lower extremity shortened and externally rotated. No bruising, bleeding, wound or ecchymosis over hip. Labs: CBC: Lab Results Component Value Date WBC 14.1 (H) 04/21/2025 RBC 4.47 04/21/2025 BMP: Lab Results Component Value Date GLUCOSE 146 (H) 04/21/2025 CO2 22 (L) 04/21/2025 BUN 15 04/21/2025 CREATININE 0.66 04/21/2025 CALCIUM 9.6 04/21/2025 PT/INR: Lab Results Component Value Date INR 1.1 04/21/2025 APTT 27.9 04/21/2025 Type and Screen: Lab Results Component Value Date RH POS 04/21/2025 RH POS 04/21/2025 CRP: No results found for: CRP ESR: No results found for: SEDRATE HgBA1c: No components found for: LABA1C The above labs were reviewed by me. Radiology: The below images were independently reviewed and interpreted XR: L hip: Comminuted L intertrochanteric hip fracture with subtrochanteric extension. No other acute fracture or dislocation. Pelvis: L intertrochanteric hip fracture. fracture. No other acute fracture or dislocation. L Femur: No fracture or dislocation of distal femur Radiology report reviewed. ASSESSMENT: 84 y.o. 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 I agree with what is documented above with any changes noted. I recommend ORIF with InterTAN nailing. The plan of care was discussed with the evaluating resident. Without treatment this injury poses threat to bodily function both acutely and chronically. Patient will also require IV Dilaudid for pain management. Electronically signed by Travis Meng M.D. 04/21/2025 at 1:33 PM. [1] Past Medical History: Diagnosis Date Hypertension Seizures (HCC) [2] Past Surgical History: Procedure Laterality Date EYE SURGERY HYSTERECTOMY [3] No current facility-administered medications for this encounter. [4] Family History Problem Relation Name Age of Onset Stroke Mother Heart disease Father Heart attack Father Coronary artery disease Father [employer] [place] Work Phone: 04-21-2025 Emergency department Note Pt covered in urine wet and cold upon arrival to ed. Pt given the option to salvage clothing but stated to just cut it off to reduce pain . Pt dry cleaned placed in hospital robe and had no needs at this time . [employer] [place] 04-21-2025 Physician Emergency department Note EMERGENCY DEPARTMENT ENCOUNTER Pt Name: Maday Alfaro Birthdate 1940 Date of evaluation: 04/21/2025 ED Provider: Brant Preciado DO CHIEF COMPLAINT Chief Complaint Patient presents with Hip Pain Hip pain post fall. Pt was down for about four hours. Pt has c/o left hip and leg pain . Shortening and rotation noted . HISTORY OF PRESENT ILLNESS (Location/Symptom, Timing/Onset, Context/Setting, Quality, Duration, Modifying Factors, Severity) Note limiting factors. I wore appropriate PPE for the entirety of this encounter. HPI Maday Alfaro is a 84 y.o. female who presents to the emergency department with chief complaint of left hip pain status post fall. She presents via EMS after being found down in her home for 4 hours. She reports that she was walking to her kitchen when she lost her balance and fell. She does not believe she hit her head or lost consciousness. She is mainly complaining of left hip pain. Denies any preceding symptoms such as presyncope, syncope, seizure, chest pain, shortness of breath, dizziness, or lightheadedness. Denies any other complaints. Nursing Notes were reviewed. Limitations to history: None Outside historians: None REVIEW OF SYSTEMS Review of Systems Constitutional: Negative for chills, fatigue and fever. Respiratory: Negative for shortness of breath and wheezing. Cardiovascular: Negative for chest pain, palpitations and leg swelling. Gastrointestinal: Negative for constipation, diarrhea, nausea and vomiting. Musculoskeletal: Positive for arthralgias (Left hip). Negative for back pain, neck pain and neck stiffness. Neurological: Negative for dizziness, seizures, weakness, light-headedness, numbness and headaches. Psychiatric/Behavioral: Negative for confusion and decreased concentration. PAST MEDICAL HISTORY Medical History[1] SURGICAL HISTORY Surgical History[2] CURRENT MEDICATIONS Previous Medications ACETAMINOPHEN (TYLENOL) 500 MG TABLET Take 2 tablets (1,000 mg) by mouth every 6 hours as needed for mild pain (1-3). ASPIRIN 81 MG CHEWABLE TABLET Chew 1 tablet in the morning. EPINEPHRINE (EPIPEN) 0.3 MG/0.3ML INJECTION SYRINGE inject 0.3 milliliters ( 0.3 milligrams ) intramuscularly in OUTE... (REFER TO PRESCRIPTION NOTES). LISINOPRIL 20 MG TABLET Take 1 tablet by mouth in the morning. OXYCODONE (ROXICODONE) 5 MG IMMEDIATE RELEASE TABLET Take 1 tablet (5 mg) by mouth every 6 hours as needed for severe pain (7-10). PHENYTOIN ER (DILANTIN) 100 MG CAPSULE Take 200 mg by mouth in the morning and 200 mg before bedtime. SERTRALINE (ZOLOFT) 100 MG TABLET TEMAZEPAM (RESTORIL) 15 MG CAPSULE Take 15 mg by mouth every 24 hours as needed. ALLERGIES Bee venom, Lidocaine, Penicillins, Sulfa antibiotics, Varenicline, Penicillin g, and Simvastatin FAMILY HISTORY Family History[3] SOCIAL HISTORY Social History[4] SCREENINGS Percival Coma Scale Best Eye Response: Spontaneous Best Verbal Response: Oriented Best Motor Response: Follows commands Nellie Coma Scale Score: 15 PHYSICAL EXAM ED Triage Vitals Temp Pulse Resp BP -- -- -- -- SpO2 Temp src Heart Rate Source Patient Position -- -- -- -- BP Location FiO2 (%) -- -- Physical Exam Constitutional: General: She is not in acute distress. Appearance: She is not ill-appearing or toxic-appearing. HENT: Head: Normocephalic and atraumatic. Eyes: Extraocular Movements: Extraocular movements intact. Pupils: Pupils are equal, round, and reactive to light. Cardiovascular: Rate and Rhythm: Normal rate and regular rhythm. Pulmonary: Effort: Pulmonary effort is normal. Abdominal: General: Abdomen is flat. There is no distension. Palpations: Abdomen is soft. There is no mass. Tenderness: There is no abdominal tenderness. Musculoskeletal: General: Tenderness (Significant tenderness to palpation over her left hip and pelvis.) and deformity (Left leg peers to be shortened and internally rotated.) present. No swelling or signs of injury. Cervical back: No rigidity or tenderness. Comments: Neurovascularly intact bilaterally. Sensation intact fully Neurological: General: No focal deficit present. Mental Status: She is alert and oriented to person, place, and time. Sensory: No sensory deficit. Motor: No weakness. Psychiatric: Mood and Affect: Mood normal. Behavior: Behavior normal. Thought Content: Thought content normal. Judgment: Judgment normal. DIAGNOSTIC RESULTS Procedures/EKG: EKG was reviewed by myself. Physician EKG interpretation can be found in [facility] RADIOLOGY (Per Emergency Physician): X-ray of the left hip shows comminuted intertrochanteric fracture with varus angulation. 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 Interpretation per the Radiologist below, if available at the time of this note: XR hip left 2 or 3 views Final Result XR femur left 2+ views (Results Pending) XR chest 1 view (Results Pending) ED BEDSIDE ULTRASOUND: Performed by ED Physician - none LABS: Labs Reviewed CBC (HEMOGRAM) - Abnormal Result Value Auto WBC 14.1 (*) RBC 4.47 Hemoglobin 14.8 Hematocrit 45.0 MCV 100.7 (*) MCH 33.1 MCHC 32.9 RDW 13.2 Platelets 150 MPV 10.6 COMPREHENSIVE METABOLIC PANEL - Abnormal SODIUM 135 (*) POTASSIUM 3.6 CHLORIDE 101 CARBON DIOXIDE 22 (*) ANION GAP 12 UREA NITROGEN 15 CREATININE 0.66 GLUCOSE 146 (*) CALCIUM 9.6 AST (SGOT) 24 ALT 17 ALKALINE PHOSPHATASE 212 (*) ALBUMIN 4.1 BILIRUBIN, TOTAL 0.8 TOTAL PROTEIN 7.5 eGFR 87.2 CK - Normal CK 112 PROTIME & APTT - Normal PROTHROMBIN TIME 11.3 INR 1.1 APTT 27.9 BLOOD TYPE AND SCREEN GEL ABO Grouping O Antibody Screen NEG Rh Type POS CONFIRMATORY ABO/RH ABO Grouping O Rh Type POS PROTHROMBIN TIME All other labs were within normal range or not returned as of this dictation. EMERGENCY DEPARTMENT COURSE and DIFFERENTIAL DIAGNOSIS/MDM: Vitals: Vitals: 04/21/25 1100 04/21/25 1206 BP: 135/79 (!) 155/83 Pulse: 84 64 Resp: 19 18 Temp: 36.4 C (97.5 F) TempSrc: Axillary SpO2: 96% 97% 84-year-old female presenting via EMS status post mechanical fall at home. She was on the ground for about 4 hours before being able to get help. Denies any preceding symptoms to the fall, she states that she just felt like she lost her balance. On exam, she is alert and oriented x 3, mainly complaining of left hip pain. She has significant tenderness overlying the left hip, compression of the pelvis reveals no laxity. The left leg does appear to be shortened and rotated. Will get x-ray of the left hip and treat pain with 50 mcg of fentanyl IV. MDM elements: The patient presented with chief complaint of left hip pain., The differential diagnosis associated with this patient's presentation includes fracture, sprain, dislocation., Our workup consisted of ordering/reviewing: X-ray., and Patient is in agreement with this plan. Medications fentaNYL (Sublimaze) injection 50 mcg (50 mcg IntraVENous Given 04/21/25 1101) REVAL: X-ray shows left comminuted intertrochanteric fracture of the hip with varus angulation. Will plan to admit with orthopedic surgery to consult. Patient reevaluated, she had just received fentanyl. Will reassess for pain control. Discussed admission and orthopedic surgery will come and see her. Patient understanding and agreeable. CONSULTS: IP CONSULT TO ORTHOPAEDIC SURGERY PROCEDURES: Unless otherwise noted below, none Patients symptoms are consistent with sepsis, severe sepsis, or septic shock (If yes use .sepsiscoremeasure): N/A FINAL IMPRESSION 1. Closed intertrochanteric fracture of hip, left, initial encounter ([facility]) 2. Closed displaced intertrochanteric fracture of left femur, initial encounter ([facility]) DISPOSITION Admit 04/21/2025 11:46:27 AM PATIENT REFERRED TO: No follow-up provider specified. DISCHARGE MEDICATIONS: New Prescriptions No medications on file (Comment: Please note this report has been produced using speech recognition software and may contain errors related to that system including errors in grammar, punctuation, and spelling, as well as words and phrases that may be inappropriate. If there are any questions or concerns please feel free to contact the dictating provider for clarification.) Brant Preciado, (electronically signed) Emergency Medicine Provider [1] Past Medical History: Diagnosis Date Hypertension Seizures (HCC) [2] Past Surgical History: Procedure Laterality Date EYE SURGERY HYSTERECTOMY [3] Family History Problem Relation Name Age of Onset Stroke Mother Heart disease Father Heart attack Father Coronary artery disease Father [4] Social History Socioeconomic History Marital status: Tobacco Use Smoking status: Every Day Types: Cigarettes Smokeless tobacco: Never Vaping Use Vaping status: Never Used Substance and Sexual Activity Alcohol use: No Brant Preciado DO Resident 04/21/25 1223 Cosigned by Elliott Navarro MD at 04/21/2025 3:19 PM EDT [facility] 04-21-2025 Physician Emergency department Note Emergency Department Encounter [facility] EMERGENCY DEPT Patient: Maday Alfaro : 1940 Date of Evaluation: 04/21/2025 ED Supervising Physician: Elliott Navarro MD I personally evaluated Maday Alfaro and made/approved the management plan and take responsibility for the patient management. This will serve as my Supervisory note and shared attestation. I did perform a substantive portion of the visit including all aspects of the Medical Decision Making. I wore appropriate PPE for the entirety of this encounter. In brief, Maday Alfaro is a 84 y.o. that presents to the emergency department with left hip pain after a fall, she was down on the ground for about 4 hours when she was found Focused exam: Tenderness and swelling left hip, neurovasc intact distally Brief ED course/MDM: Patient was given fentanyl for pain control, x-ray shows comminuted left intertrochanteric fracture, orthopedics consulted, admitted to the hospitalist Diagnostics interpreted by me: EKG(s) EKG interpreted by me shows normal sinus rhythm no acute ST or T wave changes see [facility] for full interpretation Xray(s) interpreted by me shows comminuted left intertrochanteric fracture I personally discussed the patient's management with other clinicians: Admitting team and orthopedics All diagnostic, treatment, and disposition decisions were made by myself in conjunction with the Resident. I also supervised keys portions of any procedures performed by the Resident. For all further details of the patient's emergency department visit, please see their documentation. (Comment: Please note this report has been produced using speech recognition software and may contain errors related to that system including errors in grammar, punctuation, and spelling, as well as words and phrases that may be inappropriate. If there are any questions or concerns please feel free to contact the dictating provider for clarification.) Elliott Navarro MD Acute [facility] Elliott Navarro MD 04/21/25 1223 [facility] Work Phone: 10-17-2024 History of Presen t illness Narrative Images from the original note were not included. [facility] AT [address] [address] Discharge Notification Patient Name: Maday Alfaro : 1940 Today's Date: 10/17/2024 Patient has not been seen since 09/11/24. The patient will be discharged at this time due to non-compliance with no show/cancellation policy. The patient will need a new referral/evaluation to resume outpatient therapy in the future. Thank you for this referral. For any questions on this patient s course of therapy, please call the clinic for clarification. Jennifer Esparza PT, DPT documented in this encounter [facility] 09-11-2024 History of Presen t illness Narrative Images from the original note were not included. [facility] AT [address] [facility] [address] Dept: [phone] Dept PHYSICAL THERAPY TREATMENT Patient Name: Maday Alfaro : 1940 Date of Service: 09/11/2024 Referring Provider: Brendon Sommers MD Visit #: 6 Diagnosis: Closed nondisplaced fracture of surgical neck of right humerus, unspecified fracture morphology, initial encounter Mechanism of injury: Pt fell when going to lock her doors on 07/14/24 and fractured her R proximal humerus. Currently immobilized in sling and will until 07/28/24, when she can start gentle phase 1. Patient Preferences: Pt goes by Maday Precautions/Red Flags: Yes Per Dr. Sommers ortho note on 07/18/24: We discussed the overall treatment course including first 2 weeks of immobilization using a sling with elbow range of motion only, initiation of gentle phase 1 at the 2-week rupal for the next 4 weeks. After 6 weeks as long as we see good healing we will advance PT and weightbearing at that time. Subjective Pt reports she is feeling pretty good today and not having much pain. She does get a little sore when playing Talisma on her Ipad but it goes away. Compliance with HEP: Yes Objective Objective measurements not taken today. Treatment Therapeutic Exercise # of Activities: 8 Therapeutic Exercise Activity 1: PROM R UE ER; flex; abd; IR Activity 1 Comment: 1x10 each Therapeutic Exercise Activity 2: seated scapular retraction Activity 2 Comment: 1 x 10 Therapeutic Exercise Activity 5: pulleys-flexion and scaption Activity 5 Comment: x2' each Therapeutic Exercise Activity 6: seated rows c yellow TB Activity 6 Comment: 2x10 Home Exercise Program: Progressed home exercise program Assessment Skilled physical therapy interventions utilized to improve patient s impairments and work towards established goals. Patient response to treatment: Pt tolerated session well with minimal increase in pain. Initiated pulleys this session with pt reporting no increase in pain. Also initiated seated rows with pt requiring increased VC and TC for form. Continued PROM in all directions with least ROM and most pain in abduction this session. Progressing towards all goals well; continue per current POC. Patient will benefit from continued physical therapy to decrease pain, improve ROM, and improve functional activity tolerance without compensation to activity. The rationale for today s treatment was explained to the patient. Verbal cues were provided for correct form with all exercises. Advised patient to continue with Home Exercise Program (HEP). Goals General/Ortho Patient will be independent with HEP. (Progressing) Start: 07/24/24 Expected End: 11/25/24 Patient will report decreased pain at R shoulder to no greater than 2/10 in order to be able to return to PLOF without compensation and without increased rest breaks required. (Progressing) Start: 07/24/24 Expected End: 11/25/24 Patient will increase ROM of R shoulder to WFL to be able to return to PLOF and complete all ADLs and iADLs with increased independence. (Progressing) Start: 07/24/24 Expected End: 11/25/24 Patient will increase strength in BUE to 5/5 grossly throughout to be able to complete all ADLs and functional activity without assistance and with increased overall independence. (Progressing) Start: 07/24/24 Expected End: 11/25/24 Functional Outcome Measure: Patient will improve SPADI score to <30% functional disability to indicate improvement in functional activity tolerance, functional independence, and return to PLOF without compensation. (Not Addressed) Start: 07/24/24 Expected End: 11/25/24 Patient will adhere to prescribed precautions/restrictions for R proximal humerus fracture to protect healing structures (Progressing) Start: 07/24/24 Expected End: 11/25/24 PT Misc Misc: Pt will improve administrative volunteer strength to within 5# of each other indicate improvement in functional activity tolerance. (Not Addressed) Start: 07/24/24 Expected End: 11/25/24 Plan Plan for next session: continue PROM in all directions, continue scapular strengthening (trial prone), consider UBE and wall ladder per pt tolerance Time Entry Total Treatment Time Start Time: 1104 Stop Time: 1133 Time Calculation (min): 29 min PT Therapeutic Procedures Time Entry Therapeutic Exercise Time Entry: 29 Jennifer Esparza PT, DPT documented in this encounter [facility] 08-29-2024 Note 2v right shoulder re demonstrate the right proximal humerus fracture now with significant varus. There is appropriate progressive callus formation. [facility] 08-29-2024 History of Presen t illness Narrative Subjective: Maday is here for approximately 6 week follow up for nonoperative treatment of a right proximal humerus fracture. Pain is mild to moderate post physical therapy but otherwise controlled at rest. She has no new complaints. Review of Systems Constitutional: Negative for chills and fever. Respiratory: Negative for cough. Musculoskeletal: Negative for joint swelling. Objective: Ht 5' 6 (1.676 m) Wt 136 lb (61.7 kg) BMI 21.95 kg/m Ortho Exam Attention to the right upper extremity shows: Skin is clean, dry, and intact. Swelling mild. Resolving ecchymosis present in the upper arm. Shoulder ROM shows active FF 110, IR to low back. Elbow, wrist, and fingers move well. XRAYS: 2v right shoulder redemonstrate the right proximal humerus fracture now with significant varus. There is appropriate progressive callus formation. Assessment 1. Closed fracture of proximal end of right humerus with routine healing, unspecified fracture morphology, subsequent encounter Plan Orders Placed This Encounter Procedures External referral to Physical Therapy Maday will progress to Phase 1, 2, and 3 with with the right shoulder and can increase use of the right arm based on pain. We discussed the focus of therapy should be aggressive shoulder ROM with no ROM limits. We again reviewed the expected loss of shoulder ROM and potential function given the fracture. We discussed the natural course of injury and expectations moving forward. Follow up in about 6 weeks (around 10/10/2024) for Visit with Imaging. Films at next visit: 2v right shoulder Chris Molina PA-C Orthopedic Surgery documented in this encounter [facility] 08-27-2024 History of Presen t illness Narrative Images from the original note were not included. [facility] AT [facility] [address] [facility] [address] [facility] [address] Dept: [phone] Dept PHYSICAL THERAPY RE-EVALUATION Patient Name: Maday Alfaro : 1940 Date of Service: 08/27/2024 Referring Provider: Brendon Sommers MD Visit #: 5 Diagnosis: Closed nondisplaced fracture of surgical neck of right humerus, unspecified fracture morphology, initial encounter Mechanism of injury: Pt fell when going to lock her doors on 07/14/24 and fractured her R proximal humerus. Currently immobilized in sling and will until 07/28/24, when she can start gentle phase 1. Patient Preferences: Pt goes by Maday Precautions/Red Flags: Yes Per Dr. Sommers ortho note on 07/18/24: We discussed the overall treatment course including first 2 weeks of immobilization using a sling with elbow range of motion only, initiation of gentle phase 1 at the 2-week rupal for the next 4 weeks. After 6 weeks as long as we see good healing we will advance PT and weightbearing at that time. Subjective General Comments: Pt reports last week pain was not bad at all but this week it has increased again; might be from cold weather. She is able to go without the sling for longer periods now and is able to fully put her arm in her coat. She is not taking ibuprofen for pain anymore but is using salon pause. Getting dressed is getting easier, but sometimes she still needs help from her sister with the R arm. She is able to shower independently. She can brush her teeth with her R hand and has been able to for 3 weeks, but is still challenged with brushing her hair. 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 Pain: Current: 2/10 Best: 0/10 Worst: 2/10 Current Level of Function: Pt continuing to have decreased ROM and decreased strength. Also continues to have increased difficulty with certain self care tasks, such as washing her hair with her R hand and pushing up from a chair with the R arm. Overall pt is improving in pain and ROM, but still has gross deficits. Patient s Stated Goal: return to PLOF without restrictions Outcome Measures SPADI: 68/130=52.31% functional disability (improved) Objective SHOULDER Observation: pt continuing to sit with significant B rounded shoulders and forward head but does not arrive in sling this session Cervical Spine AROM: WFL grossly throughout with no increase in pain Elbow AROM: WFL bilaterally with no pain Shoulder ROM Date Recorded: 07/24/24 Upper Extremity ROM (degrees) Right Left AROM PROM AROM PROM Shoulder Flexion 120 p! NT WFL NT Shoulder Abduction NT d/t precautions NT WFL NT Shoulder External Rotation (ER) 70 p! NT WFL NT Shoulder Internal Rotation (IR) NT d/t precautions NT WFL NT Upper Extremity Strength Right Left Shoulder Flexion NT d/t precautions 4+ Shoulder Abduction NT d/t precautions 4+ Shoulder External Rotation (ER) 4 p! 5 Shoulder Internal Rotation (IR) 4+ p! 5 Elbow Flexion 4 p! 5 Elbow Extension 4 p! 5 Scapular Strength Right Left Lower Trapezius NT d/t precautions NT d/t precautions Middle Trapezius NT d/t precautions NT d/t precautions Rhomboids NT d/t precautions NT d/t precautions Palpation: TTP over anterior clavicular region and biceps tendon area Music Director strength: L: 25# R: 15# Assessment Physical therapy reassessment completed this session. Pt stating improvements in ADL tolerance, ROM, and in overall pain and sleep quality, but still experiencing gross ROM deficits. Reassessment revealed improvements in shoulder PROM flexion and ER to 120 and 70 degrees each, both with pain. Strength on L UE remaining relatively the same, and strength on R UE shoulder ER/IR and elbow flexion/extension grossly decreased with pain in all test positions. Music Director strength continues to be decreased, but R administrative volunteer strength improved to 15# this session. Overall elbow ROM improved to WFL without pain but sitting posture continues to be significantly impaired with B rounded shoulders and forward head. SPADI score improve to 52.31% functional disability, indicating a significant improvement in functional activity tolerance. Overall pt will continue to benefit from skilled PT in order to improve shoulder ROM, improve strength of BUE and B administrative volunteer strength, to improve posture, and to improve functional activity tolerance without compensation to activity. Pt will call after meeting with Elma Li to schedule further follow up visits at 1x/week for 6-8 weeks. Rehab Potential: Good Goals Active General/Ortho Patient will be independent with HEP. (Progressing) Start: 07/24/24 Expected End: 11/25/24 Patient will report decreased pain at R shoulder to no greater than 2/10 in order to be able to return to PLOF without compensation and without increased rest breaks required. (Progressing) Start: 07/24/24 Expected End: 11/25/24 Patient will increase ROM of R shoulder to WFL to be able to return to PLOF and complete all ADLs and iADLs with increased independence. (Progressing) Start: 07/24/24 Expected End: 11/25/24 Patient will increase strength in BUE to 5/5 grossly throughout to be able to complete all ADLs and functional activity without assistance and with increased overall independence. (Progressing) Start: 07/24/24 Expected End: 11/25/24 Functional Outcome Measure: Patient will improve SPADI score to <30% functional disability to indicate improvement in functional activity tolerance, functional independence, and return to PLOF without compensation. (Progressing) Start: 07/24/24 Expected End: 11/25/24 Patient will adhere to prescribed precautions/restrictions for R proximal humerus fracture to protect healing structures (Progressing) Start: 07/24/24 Expected End: 11/25/24 PT Misc Misc: Pt will improve administrative volunteer strength to within 5# of each other indicate improvement in functional activity tolerance. (Progressing) Start: 07/24/24 Expected End: 11/25/24 Plan Frequency and Duration: 1x/wk for 6-8 weeks Therapeutic Contents: client education, group therapy, home exercise program, manual therapy techniques, therapeutic activities, therapeutic exercise, and modalities as needed Plan for next session: ask about doctor's visit, progress per protocol; continue PROM and initiate AAROM, initiate scapular strengthening, consider pulleys (if in protocol) Risks and benefits were discussed with the patient and/or family, and the patient and/or family participated with the plan of care and agrees. Treatment Therapeutic Exercise Therapeutic Exercise Activity 1: PROM R UE ER; flex Activity 1 Comment: 1x10 each Therapeutic Activity Therapeutic Activity 1: Pt educated on updated clinical examination findings, goal/POC progress, and advised to continue HEP to maintain ROM gains. Pt also advised to call after doctor appointment on 08/29/24 to schedule further physical therapy sessions. Home Exercise Program: Deferred Time Entry Total Treatment Time Start Time: 1117 Stop Time: 1145 Time Calculation (min): 28 min PT Therapeutic Procedures Time Entry Therapeutic Exercise Time Entry: 8 Therapeutic Activity Time Entry: 20 Jennifer Esparza PT, DPT documented in this encounter [facility] 08-20-2024 History of Presen t illness Narrative Images from the original note were not included. [facility] AT [facility] [address] [place] [address] [place] [address] Dept: [phone] Dept PHYSICAL THERAPY TREATMENT Patient Name: Maday Alfaro : 1940 Date of Service: 08/20/2024 Referring Provider: Brendon Sommers MD Visit #: 4 Diagnosis: Closed nondisplaced fracture of surgical neck of right humerus, unspecified fracture morphology, initial encounter Mechanism of injury: Pt fell when going to lock her doors on 07/14/24 and fractured her R proximal humerus. Currently immobilized in sling and will until 07/28/24, when she can start gentle phase 1. Patient Preferences: Pt goes by Maday Subjective Pt states current pain at rest 2/10. Compliance with HEP: Yes Objective R shoulder PROM supine flex 114 Treatment Therapeutic Exercise # of Activities: 4 Therapeutic Exercise Activity 2: seated scapular retraction Activity 2 Comment: 1 x 10 Therapeutic Exercise Activity 3: administrative volunteer with UE supported Activity 3 Comment: yellow digi administrative volunteer 1 x 10 Therapeutic Exercise Activity 4: R wrist flexion/extension UE supported Activity 4 Comment: 1# 1 x 10 ea Soft Tissue Mobilization Location: R upper trap, levator, biceps Body Position: Sitting Comments: [facility] Home Exercise Program: Deferred Assessment Skilled physical therapy interventions utilized to improve patient s impairments and work towards established goals. Patient response to treatment: Frequent cues for pt to avoid guarding during PROM. No c/o pain with added resistance to wrist flexion/ext, only reports fatigue. Improved PROM flexion. Some progress towards goals. The rationale for today s treatment was explained to the patient. Verbal cues were provided for correct form with all exercises. Advised patient to continue with Home Exercise Program (HEP). Goals General/Ortho Patient will be independent with HEP. (Progressing) Start: 07/24/24 Expected End: 10/22/24 Patient will report decreased pain at R shoulder to no greater than 2/10 in order to be able to return to PLOF without compensation and without increased rest breaks required. (Progressing) Start: 07/24/24 Expected End: 10/22/24 Patient will increase ROM of R shoulder to WFL to be able to return to PLOF and complete all ADLs and iADLs with increased independence. (Progressing) Start: 07/24/24 Expected End: 10/22/24 Patient will increase strength in BUE to 5/5 grossly throughout to be able to complete all ADLs and functional activity without assistance and with increased overall independence. (Progressing) Start: 07/24/24 Expected End: 10/22/24 Functional Outcome Measure: Patient will improve SPADI score to <30% functional disability to indicate improvement in functional activity tolerance, functional independence, and return to PLOF without compensation. (Not Addressed) Start: 07/24/24 Expected End: 10/22/24 Patient will adhere to prescribed precautions/restrictions for R proximal humerus fracture to protect healing structures (Progressing) Start: 07/24/24 Expected End: 10/22/24 PT Misc Misc: Pt will improve administrative volunteer strength to within 5# of each other indicate improvement in functional activity tolerance. (Progressing) Start: 07/24/24 Expected End: 10/22/24 Plan Plan for next session: reassessment next visit. Time Entry Total Treatment Time Start Time: 1104 Stop Time: 1132 Time Calculation (min): 28 min PT Therapeutic Procedures Time Entry Therapeutic Exercise Time Entry: 20 Manual Therapy Time Entry: 8 Jennifer Ruffin PTA Cosigned by Jennifer Esparza PT at 08/20/2024 1:32 PM EST documented in this encounter [facility] 08-09-2024 History of Presen t illness Narrative Images from the original note were not included. [facility] AT [address] [address] Dept: [phone] Dept PHYSICAL THERAPY TREATMENT Patient Name: Maday Alfaro : 1940 Date of Service: 08/09/2024 Referring Provider: Brendon Sommers MD Visit #: 3 Diagnosis: Closed nondisplaced fracture of surgical neck of right humerus, unspecified fracture morphology, initial encounter Mechanism of injury: Pt fell when going to lock her doors on 07/14/24 and fractured her R proximal humerus. Currently immobilized in sling and will until 07/28/24, when she can start gentle phase 1. Patient Preferences: Pt goes by Maday Subjective Pt states bruising in R UE resolving. Current pain 01/21. Sleep can be disturbed by pain. Compliance with HEP: Yes Objective Supine R UE PROM ER 70; flex 110 Treatment Therapeutic Exercise # of Activities: 3 Therapeutic Exercise Activity 1: PROM R UE ER; flex Activity 1 Comment: 2x10 ea Therapeutic Exercise Activity 2: seated scapular retraction Activity 2 Comment: 1 x 10 Therapeutic Exercise Activity 3: administrative volunteer with UE supported Activity 3 Comment: yellow digi administrative volunteer 1 x 10 Soft Tissue Mobilization Location: R upper trap, levator, biceps Body Position: Sitting Comments: [facility] Home Exercise Program: Progressed home exercise program Assessment Skilled physical therapy interventions utilized to improve patient s impairments and work towards established goals. Patient response to treatment: able to progress PROM, with pain at end range. Moderate soft tissue restrictions noted R upper trap, levator. Added scap retract to HEP. Patient will benefit from continued physical therapy to decrease pain; improve ROM, strength and function. The rationale for today s treatment was explained to the patient. Verbal cues were provided for correct form with all exercises. Advised patient to continue with Home Exercise Program (HEP). Goals General/Ortho Patient will be independent with HEP. (Progressing) Start: 07/24/24 Expected End: 10/22/24 Patient will report decreased pain at R shoulder to no greater than 2/10 in order to be able to return to PLOF without compensation and without increased rest breaks required. (Progressing) Start: 07/24/24 Expected End: 10/22/24 Patient will increase ROM of R shoulder to WFL to be able to return to PLOF and complete all ADLs and iADLs with increased independence. (Progressing) Start: 07/24/24 Expected End: 10/22/24 Patient will increase strength in BUE to 5/5 grossly throughout to be able to complete all ADLs and functional activity without assistance and with increased overall independence. (Progressing) Start: 07/24/24 Expected End: 10/22/24 Functional Outcome Measure: Patient will improve SPADI score to <30% functional disability to indicate improvement in functional activity tolerance, functional independence, and return to PLOF without compensation. (Not Addressed) Start: 07/24/24 Expected End: 10/22/24 Patient will adhere to prescribed precautions/restrictions for R proximal humerus fracture to protect healing structures (Progressing) Start: 07/24/24 Expected End: 10/22/24 PT Misc Misc: Pt will improve administrative volunteer strength to within 5# of each other indicate improvement in functional activity tolerance. (Progressing) Start: 07/24/24 Expected End: 10/22/24 Plan Plan for next session: phase 1 per protocol Time Entry Total Treatment Time Start Time: 157 Stop Time: 227 Time Calculation (min): 30 min PT Therapeutic Procedures Time Entry Therapeutic Exercise Time Entry: 22 Manual Therapy Time Entry: 8 Jennifer Ruffin PTA Cosigned by Jennifer Esparza PT at 08/09/2024 3:00 PM EST documented in this encounter [facility] 08-02-2024 History of Presen t illness Narrative Images from the original note were not included. [facility] AT [facility] [place] [address] [facility] [address] Dept: [phone] Dept PHYSICAL THERAPY TREATMENT Patient Name: Maday Alfaro : 1940 Date of Service: 08/02/2024 Referring Provider: Brendon Sommers MD Visit #: 2 Diagnosis: Closed nondisplaced fracture of surgical neck of right humerus, unspecified fracture morphology, initial encounter Mechanism of injury: Pt fell when going to lock her doors on 07/14/24 and fractured her R proximal humerus. Currently immobilized in sling and will until 07/28/24, when she can start gentle phase 1. Patient Preferences: Pt goes by Maday Precautions/Red Flags: Yes Per Dr. Sommers ortho note on 07/18/24: We discussed the overall treatment course including first 2 weeks of immobilization using a sling with elbow range of motion only, initiation of gentle phase 1 at the 2-week rupal for the next 4 weeks. After 6 weeks as long as we see good healing we will advance PT and weightbearing at that time. Subjective Pt reports she has been doing pretty good but when she goes to sleep if there is a pillow under the shoulder that is when it hurts. She says HEP has not gone bad. Pt is concerned about bruising on R arm throughout wrist and up around shoulder that started progressed weeks after injury. Compliance with HEP: Yes Objective Assessed bruising on pt and noted significance over anterior, medial, lateral, and posterior wrist, lateral elbow, and lateral biceps and shoulder. Advised pt to call PCP to discuss bruising ISADORA in order to rule out any possible injuries or other medical issues. Treatment Therapeutic Exercise # of Activities: 1 Therapeutic Exercise Activity 1: PROM ER R UE; Trialed flexion but pt unable to tolerate Activity 1 Comment: 2x10 Therapeutic Activity # of Activities: 2 Therapeutic Activity 2: Pt educated on cotinuing to adhere to prescribed precaitions and expectations of future physical therapy appointments. Soft Tissue Mobilization Location: R bicep and posterior shoulder musculature Body Position: Supine Comments: increased TTP Home Exercise Program: Deferred Assessment Skilled physical therapy interventions utilized to improve patient s impairments and work towards established goals. Patient response to treatment: Discussed extensive bruising throughout pt's R UE and advised pt to contact PCP to discuss further. Initiated PROM of R UE into ER and trialed PROM into flexion but pt unable to tolerate into flexion and demonstrated increased pain into ER. Initiated manual STM to biceps and posterior shoulder with pt demonstrating increased pain. Continue per phase 1 protocol at this time. Patient will benefit from continued physical therapy to increase shoulder ROM and strength and allow pt to return to PLOF without increased compensation to activity. The rationale for today s treatment was explained to the patient. Verbal cues were provided for correct form with all exercises. Advised patient to continue with Home Exercise Program (HEP). Goals General/Ortho Patient will be independent with HEP. (Progressing) Start: 07/24/24 Expected End: 10/22/24 Patient will report decreased pain at R shoulder to no greater than 2/10 in order to be able to return to PLOF without compensation and without increased rest breaks required. (Progressing) Start: 07/24/24 Expected End: 10/22/24 Patient will increase ROM of R shoulder to WFL to be able to return to PLOF and complete all ADLs and iADLs with increased independence. (Progressing) Start: 07/24/24 Expected End: 10/22/24 Patient will increase strength in BUE to 5/5 grossly throughout to be able to complete all ADLs and functional activity without assistance and with increased overall independence. (Not Addressed) Start: 07/24/24 Expected End: 10/22/24 Functional Outcome Measure: Patient will improve SPADI score to <30% functional disability to indicate improvement in functional activity tolerance, functional independence, and return to PLOF without compensation. (Not Addressed) Start: 07/24/24 Expected End: 10/22/24 Patient will adhere to prescribed precautions/restrictions for R proximal humerus fracture to protect healing structures (Not Progressing) Start: 07/24/24 Expected End: 10/22/24 PT Misc Misc: Pt will improve administrative volunteer strength to within 5# of each other indicate improvement in functional activity tolerance. (Not Addressed) Start: 07/24/24 Expected End: 10/22/24 Plan Plan for next session: continue PROM of shoulder, initiate increased administrative volunteer strengthening, (continue per phase 1 protocol); ask about bruising on R arm Time Entry Total Treatment Time Start Time: 1130 Stop Time: 1159 Time Calculation (min): 29 min PT Therapeutic Procedures Time Entry Therapeutic Exercise Time Entry: 8 Therapeutic Activity Time Entry: 15 Manual Therapy Time Entry: 6 Jennifer Esparza PT, DPT documented in this encounter [facility] 07-18-2024 History of Presen t illness Narrative Images from the original note were not included. Assessment: Maday Alfrao is 84 y.o. female who is s/p the following injury: Right proximal humerus fracture treated nonoperatively Date of injury 07/25/2024 Plan: Weight bearing: NWB right upper extremity ROM: see below Immobilization: sling DVT PPX: n/a Therapy: new rx provided Pain control: tylenol and oxycodone Follow up: 4 weeks with PATRICA Molina PA-C Xrays: 3v right shoulder and 2v right humerus Both non-operative and operative treatment were discussed in general with review of the typical indications for surgery. Advantages and disadvantages of each were discussed. I recommend nonoperative treatment. We discussed the overall treatment course including first 2 weeks of immobilization using a sling with elbow range of motion only, initiation of gentle phase 1 at the 2-week rupal for the next 4 weeks. After 6 weeks as long as we see good healing we will advance PT and weightbearing at that time. We discussed the expected loss of range of motion and function given the fracture. Imaging Review: The following image was obtained today in office: n/a The below imaging was independently reviewed and interpreted from outside source at initial presentation 3v right shoulder: Proximal humerus fracture with valgus alignment which is overall acceptable for healing and nonoperative manner 2v right humerus: Proximal humerus fracture with valgus alignment which is overall acceptable for healing and nonoperative manner Subjective: Mechanism of injury: She lost her balance when she stood up too quickly and fell onto her right shoulder. Hand Dominance: right Occupation & Work Status: retired Smoking: yes Medical problems: none Physical Exam: General appearance: A&O x3 Skin: ecchymotic about injury site ROM: Not assessed secondary to pain Strength: +deltoid, AIN, PIN, ulnar Sensation: SILT rad,med,ulnar, axillary Vascular: palp radial w BCR Electronically signed by Brendon Sommers M.D 07/18/2024 at 10:45 AM documented in this encounter [facility] 07-15-2024 Emergency department Note EMERGENCY DEPARTMENT ENCOUNTER Pt Name: Maday Alfaro Birthdate 1940 Date of evaluation: 07/15/2024 ED Provider: Nguyễn Caal DO CHIEF COMPLAINT Chief Complaint Patient presents with Arm Injury Patient reports a fall last night and states she tried to break her fall with her right arm. Patient reports right arm pain, unable to move it much. HISTORY OF PRESENT ILLNESS (Location/Symptom, Timing/Onset, Context/Setting, Quality, Duration, Modifying Factors, Severity) Note limiting factors. I wore appropriate PPE for the entirety of this encounter. HPI Maday Alfaro is a 84 y.o. who presents to the emergency department with chief complaint of right shoulder and arm pain. Patient states yesterday she lost her balance when she stood up too quickly and fell onto her right shoulder. No head injury or LOC. She is not anticoagulated. States she has had pain to the right upper extremity and difficulty with range of motion of the right shoulder. No headaches, vomiting, chest pain, dyspnea and no symptoms prior to her fall. Nursing Notes were reviewed. Limitations to history: None Outside historians: None REVIEW OF SYSTEMS Review of Systems Pertinent positives and negatives as per HPI. PAST MEDICAL HISTORY Past Medical History: Diagnosis Date Hypertension Seizures (HCC) SURGICAL HISTORY Past Surgical History: Procedure Laterality Date EYE SURGERY HYSTERECTOMY CURRENT MEDICATIONS Discharge Medication List as of 07/15/2024 4:20 PM CONTINUE these medications which have NOT CHANGED Details aspirin 81 MG chewable tablet Chew 1 tablet in the morning., Starting 08/07/2018, Historical Med EPINEPHrine (Epipen) 0.3 MG/0.3ML injection syringe inject 0.3 milliliters ( 0.3 milligrams ) intramuscularly in OUTE... (REFER TO PRESCRIPTION NOTES)., Historical Med lisinopril 20 MG tablet Take 1 tablet by mouth in the morning., Starting Mon10/26/2018, Historical Med phenytoin ER (Dilantin) 100 MG capsule Take 200 mg by mouth in the morning and 200 mg before bedtime., Historical Med sertraline (Zoloft) 100 MG tablet Starting 09/09/2023, Historical Med temazepam (Restoril) 15 MG capsule Take 15 mg by mouth every 24 hours as needed., Historical Med ALLERGIES Bee venom, Lidocaine, Penicillins, and Sulfa antibiotics FAMILY HISTORY Family History Problem Relation Name Age of Onset Stroke Mother Heart disease Father Heart attack Father Coronary artery disease Father SOCIAL HISTORY Social History Socioeconomic History Marital status: Tobacco Use Smoking status: Every Day Types: Cigarettes Smokeless tobacco: Never Vaping Use Vaping status: Never Used Substance and Sexual Activity Alcohol use: No SCREENINGS PHYSICAL EXAM ED Triage Vitals Temp Heart Rate Resp BP 07/15/24 1413 07/15/24 1413 07/15/24 1413 07/15/24 1413 36.4 C (97.5 F) 69 18 (!) 166/100 SpO2 Temp Source Heart Rate Source Patient Position 07/15/24 1413 07/15/24 1413 07/15/24 1413 07/15/24 1626 99 % Temporal Monitor Lying BP Location FiO2 (%) 07/15/24 1626 -- Left arm Physical Exam Vitals and nursing note reviewed. Constitutional: General: She is not in acute distress. Appearance: She is well-developed. She is not ill-appearing or toxic-appearing. HENT: Head: Normocephalic and atraumatic. Nose: Nose normal. Eyes: Extraocular Movements: Extraocular movements intact. Cardiovascular: Rate and Rhythm: Normal rate and regular rhythm. Pulses: Normal pulses. Pulmonary: Effort: Pulmonary effort is normal. No respiratory distress. Breath sounds: Normal breath sounds. Musculoskeletal: General: Tenderness (Right lateral shoulder and proximal arm) present. No deformity. Cervical back: Normal range of motion and neck supple. No rigidity or tenderness. Comments: Right shoulder range of motion limited due to pain. Range of motion of the elbow and wrist is intact. No tenderness along the elbow, forearm or wrist. Skin: General: Skin is warm and dry. Capillary Refill: Capillary refill takes less than 2 seconds. Neurological: General: No focal deficit present. Mental Status: She is alert. Mental status is at baseline. Sensory: No sensory deficit. Motor: No weakness. DIAGNOSTIC RESULTS Procedures/EKG: EKG was reviewed by myself. Physician EKG interpretation can be found in [facility] RADIOLOGY (Per Emergency Physician): Interpretation per the Radiologist below, if available at the time of this note: XR shoulder 2+ views right Final Result XR humerus right Final Result ED BEDSIDE ULTRASOUND: Performed by ED Physician - none LABS: Labs Reviewed - No data to display All other labs were within normal range or not returned as of this dictation. EMERGENCY DEPARTMENT COURSE and DIFFERENTIAL DIAGNOSIS/MDM: Vitals: Vitals: 07/15/24 1413 07/15/24 1544 07/15/24 1626 BP: (!) 166/100 120/71 BP Location: Left arm Patient Position: Lying Pulse: 69 63 Resp: 18 17 Temp: 36.4 C (97.5 F) TempSrc: Temporal SpO2: 99% 98% Weight: 61.7 kg (136 lb) Height: 1.676 m (5' 6) Diagnoses as of 07/15/24 1810 Closed nondisplaced fracture of surgical neck of right humerus, unspecified fracture morphology, initial encounter The patient presented with chief complaint of shoulder pain. The differential diagnosis associated with this patient's presentation includes shoulder sprain, fracture, dislocation. Our workup consisted of ordering/reviewing: xrays. Patient is in agreement with this plan. Medications oxyCODONE (Roxicodone) immediate release tablet 5 mg (5 mg Oral Given 07/15/24 1542) REVAL: 84-year-old female presenting to the ED for right shoulder pain after mechanical fall yesterday. She is neurovascularly intact to the upper extremity. X-rays show a right surgical neck impacted fracture. Patient placed in a sling and will be given a prescription for oxycodone. She was given referral for orthopedic surgery. CRITICAL CARE TIME CONSULTS: None PROCEDURES: Unless otherwise noted below, none Procedures Patients symptoms are consistent with sepsis, severe sepsis, or septic shock (If yes use .sepsiscoremeasure): FINAL IMPRESSION 1. Closed nondisplaced fracture of surgical neck of right humerus, unspecified fracture morphology, initial encounter DISPOSITION Discharge 07/15/2024 04:17:13 PM PATIENT REFERRED TO: [facility] [address] [address] DISCHARGE MEDICATIONS: Discharge Medication List as of 07/15/2024 4:20 PM START taking these medications Details acetaminophen (Tylenol) 500 MG tablet Take 2 tablets (1,000 mg) by mouth every 6 hours as needed for mild pain (1-3)., Starting 07/15/2024, Normal oxyCODONE (Roxicodone) 5 MG immediate release tablet Take 1 tablet (5 mg) by mouth every 6 hours as needed for severe pain (7-10)., Starting 07/15/2024, Normal (Comment: Please note this report has been produced using speech recognition software and may contain errors related to that system including errors in grammar, punctuation, and spelling, as well as words and phrases that may be inappropriate. If there are any questions or concerns please feel free to contact the dictating provider for clarification.) Nguyễn Caal DO (electronically signed) Emergency Medicine Provider Nguyễn Caal DO 07/15/241810 Patient reports a fall last night and states she tried to break her fall with her right arm. Patient reports right arm pain, unable to move it much. documented in this encounter [facility] 07-15-2024 Emergency department Triage note Patient reports a fall last night and states she tried to break her fall with her right arm. Patient reports right arm pain, unable to move it much. [facility] 07-15-2024 Physician Emergency department Note EMERGENCY DEPARTMENT ENCOUNTER Pt Name: Maday Alfaro Birthdate 1940 Date of evaluation: 07/15/2024 ED Provider: Nguyễn Caal DO CHIEF COMPLAINT Chief Complaint Patient presents with Arm Injury Patient reports a fall last night and states she tried to break her fall with her right arm. Patient reports right arm pain, unable to move it much. HISTORY OF PRESENT ILLNESS (Location/Symptom, Timing/Onset, Context/Setting, Quality, Duration, Modifying Factors, Severity) Note limiting factors. I wore appropriate PPE for the entirety of this encounter. HPI Maday Alfaro is a 84 y.o. who presents to the emergency department with chief complaint of right shoulder and arm pain. Patient states yesterday she lost her balance when she stood up too quickly and fell onto her right shoulder. No head injury or LOC. She is not anticoagulated. States she has had pain to the right upper extremity and difficulty with range of motion of the right shoulder. No headaches, vomiting, chest pain, dyspnea and no symptoms prior to her fall. Nursing Notes were reviewed. Limitations to history: None Outside historians: None REVIEW OF SYSTEMS Review of Systems Pertinent positives and negatives as per HPI. PAST MEDICAL HISTORY Past Medical History: Diagnosis Date Hypertension Seizures (HCC) SURGICAL HISTORY Past Surgical History: Procedure Laterality Date EYE SURGERY HYSTERECTOMY CURRENT MEDICATIONS Discharge Medication List as of 07/15/2024 4:20 PM CONTINUE these medications which have NOT CHANGED Details aspirin 81 MG chewable tablet Chew 1 tablet in the morning., Starting Mon08/07/2018, Historical Med EPINEPHrine (Epipen) 0.3 MG/0.3ML injection syringe inject 0.3 milliliters ( 0.3 milligrams ) intramuscularly in OUTE... (REFER TO PRESCRIPTION NOTES)., Historical Med lisinopril 20 MG tablet Take 1 tablet by mouth in the morning., Starting Mon10/26/2018, Historical Med phenytoin ER (Dilantin) 100 MG capsule Take 200 mg by mouth in the morning and 200 mg before bedtime., Historical Med sertraline (Zoloft) 100 MG tablet Starting 09/09/2023, Historical Med temazepam (Restoril) 15 MG capsule Take 15 mg by mouth every 24 hours as needed., Historical Med ALLERGIES Bee venom, Lidocaine, Penicillins, and Sulfa antibiotics FAMILY HISTORY Family History Problem Relation Name Age of Onset Stroke Mother Heart disease Father Heart attack Father Coronary artery disease Father SOCIAL HISTORY Social History Socioeconomic History Marital status: Tobacco Use Smoking status: Every Day Types: Cigarettes Smokeless tobacco: Never Vaping Use Vaping status: Never Used Substance and Sexual Activity Alcohol use: No SCREENINGS PHYSICAL EXAM ED Triage Vitals Temp Heart Rate Resp BP 07/15/24 1413 07/15/24 1413 07/15/24 1413 07/15/24 1413 36.4 C (97.5 F) 69 18 (!) 166/100 SpO2 Temp Source Heart Rate Source Patient Position 07/15/24 1413 07/15/24 1413 07/15/24 1413 07/15/24 1626 99 % Temporal Monitor Lying BP Location FiO2 (%) 07/15/24 1626 -- Left arm Physical Exam Vitals and nursing note reviewed. Constitutional: General: She is not in acute distress. Appearance: She is well-developed. She is not ill-appearing or toxic-appearing. HENT: Head: Normocephalic and atraumatic. Nose: Nose normal. Eyes: Extraocular Movements: Extraocular movements intact. Cardiovascular: Rate and Rhythm: Normal rate and regular rhythm. Pulses: Normal pulses. Pulmonary: Effort: Pulmonary effort is normal. No respiratory distress. Breath sounds: Normal breath sounds. Musculoskeletal: General: Tenderness (Right lateral shoulder and proximal arm) present. No deformity. Cervical back: Normal range of motion and neck supple. No rigidity or tenderness. Comments: Right shoulder range of motion limited due to pain. Range of motion of the elbow and wrist is intact. No tenderness along the elbow, forearm or wrist. Skin: General: Skin is warm and dry. Capillary Refill: Capillary refill takes less than 2 seconds. Neurological: General: No focal deficit present. Mental Status: She is alert. Mental status is at baseline. Sensory: No sensory deficit. Motor: No weakness. DIAGNOSTIC RESULTS Procedures/EKG: EKG was reviewed by myself. Physician EKG interpretation can be found in [facility] RADIOLOGY (Per Emergency Physician): Interpretation per the Radiologist below, if available at the time of this note: XR shoulder 2+ views right Final Result XR humerus right Final Result ED BEDSIDE ULTRASOUND: Performed by ED Physician - none LABS: Labs Reviewed - No data to display All other labs were within normal range or not returned as of this dictation. EMERGENCY DEPARTMENT COURSE and DIFFERENTIAL DIAGNOSIS/MDM: Vitals: Vitals: 07/15/24 1413 07/15/24 1544 07/15/24 1626 BP: (!) 166/100 120/71 BP Location: Left arm Patient Position: Lying Pulse: 69 63 Resp: 18 17 Temp: 36.4 C (97.5 F) TempSrc: Temporal SpO2: 99% 98% Weight: 61.7 kg (136 lb) Height: 1.676 m (5' 6) Diagnoses as of 07/15/24 1810 Closed nondisplaced fracture of surgical neck of right humerus, unspecified fracture morphology, initial encounter The patient presented with chief complaint of shoulder pain. The differential diagnosis associated with this patient's presentation includes shoulder sprain, fracture, dislocation. Our workup consisted of ordering/reviewing: xrays. Patient is in agreement with this plan. Medications oxyCODONE (Roxicodone) immediate release tablet 5 mg (5 mg Oral Given 07/15/24 1542) REVAL: 84-year-old female presenting to the ED for right shoulder pain after mechanical fall yesterday. She is neurovascularly intact to the upper extremity. X-rays show a right surgical neck impacted fracture. Patient placed in a sling and will be given a prescription for oxycodone. She was given referral for orthopedic surgery. CRITICAL CARE TIME CONSULTS: None PROCEDURES: Unless otherwise noted below, none Procedures Patients symptoms are consistent with sepsis, severe sepsis, or septic shock (If yes use .sepsiscoremeasure): FINAL IMPRESSION 1. Closed nondisplaced fracture of surgical neck of right humerus, unspecified fracture morphology, initial encounter DISPOSITION Discharge 07/15/2024 04:17:13 PM PATIENT REFERRED TO: [facility] [address] [address] DISCHARGE MEDICATIONS: Discharge Medication List as of 07/15/2024 4:20 PM START taking these medications Details acetaminophen (Tylenol) 500 MG tablet Take 2 tablets (1,000 mg) by mouth every 6 hours as needed for mild pain (1-3)., Starting 07/15/2024, Normal oxyCODONE (Roxicodone) 5 MG immediate release tablet Take 1 tablet (5 mg) by mouth every 6 hours as needed for severe pain (7-10)., Starting 07/15/2024, Normal (Comment: Please note this report has been produced using speech recognition software and may contain errors related to that system including errors in grammar, punctuation, and spelling, as well as words and phrases that may be inappropriate. If there are any questions or concerns please feel free to contact the dictating provider for clarification.) Nguyễn Caal DO (electronically signed) Emergency Medicine Provider Nguyễn Caal DO 07/15/24 181 [facility] 11-22-2023 History of Presen t illness Narrative Images from the original note were not included. [facility] [address] [place] [id number] Dept: [phone] Dept Department of Orthopedics- Podiatry Chief Complaint Patient presents with Follow-up Right foot fracture PCP: Christian Harrison Last visit: unknown, next appointment in 2-weeks HISTORY OF PRESENT ILLNESS: This pleasant 83 y.o. female presents with a comminuted and slightly displaced fractures of the necks of the metatarsals 2-5 of the right foot, DOI 09/30/2023. A CAM Aircast Boot was dispensed but the patient is noncompliant. She states it is too heavy. She presents in regular athletic shoe gear today. She has not had any pain to the area. She denies any new injury. She denies any nausea, vomiting, fever, chills. PHYSICAL EXAM: Vitals: Ht 1.676 m (5' 6) Wt 66.2 kg (146 lb) BMI 23.57 kg/m Constitutional: This an age appropriate female who is alert and oriented x3. The patient appears well nourished Psychiatric: The patient is able to verbalize normally and seems to have a good understanding of their situation. Vascular: DP/PT pulses 2/4 bilateral. CFT less than 5 seconds to digits bilateral. Skin temperature is warm to cool proximal to distal bilateral. No edema is noted bilateral. Hair growth is present bilateral. Neurological: Protective sensation is intact bilateral as tested with [place]-Esthela monofilament. Dermatologic: Skin turgor is within normal limits. No lesions or wounds noted. Musculoskeletal: No pain to palpation of right forefoot at the level of the metatarsal heads. Able to wiggle toes. No pain at the midfoot joint as well. No instability noted at the midfoot. Muscle strength is full. Ankle joint range of motion is full without pain or crepitus. ASSESSMENT AND PLAN: (S92.301A) Closed nondisplaced fracture of metatarsal bone of right foot, unspecified metatarsal, initial encounter (S92.301A) Closed displaced fracture of metatarsal bone of right foot, unspecified metatarsal, initial encounter (S93.621D) Lisfranc's sprain, right, subsequent encounter (S92.324A) Nondisplaced fracture of second metatarsal bone, right foot, initial encounter for closed fracture (S92.344A) Closed nondisplaced fracture of fourth metatarsal bone of right foot, initial encounter (S92.334A) Closed nondisplaced fracture of third metatarsal bone of right foot, initial encounter (S92.351D) Closed fracture of base of fifth metatarsal bone with routine healing, right Patient was seen examined. Discussed metatarsal fractures in detail. She continues to heal quite well and her symptoms have improved significantly. Recommend she continue weight-bear as tolerated and she can start to increase activities. Recommend she wear good supportive shoes that are athletic with stiffer sole. DEXA scan was ordered as there is concern for osteoporosis. She is okay to follow-up with me as needed. Continue pain medication as needed. If any worsening she may benefit from physical therapy but she does not feel that she needs that at this time. Voice recognition was used for portions of this note and although it was reviewed prior to signing some incorrect words or phrases could be present. Griselda Brown DPM documented in this encounter [facility] 11-22-2023 Instructions Torrie Claros - 11/22/2023 1:00 PM EDT Central Scheduling [phone] documented in this encounter [facility] 10-11-2023 History of Presen t illness Narrative Images from the original note were not included. [facility] [address] [facility] [id number] Dept: [phone] Dept Department of Orthopedics- Podiatry Chief Complaint Patient presents with New Patient Right foot, comminuted and slightly displaced fractures of the necks of the metatarsals 2-5, DOI 09/30/2023 PCP: Christian Harrison Last visit: unknown, next appointment in 2-weeks HISTORY OF PRESENT ILLNESS: This pleasant 83 y.o. female presents with a comminuted and slightly displaced fractures of the necks of the metatarsals 2-5 of the right foot, DOI 09/30/2023. Patient relates that she slipped and fell on the bottom step of her porch landing on her buttocks. Patient was seen in [facility] ED the next day and had X-rays performed. A CAM Aircast Boot was dispensed but the patient is noncompliant. She states it is too heavy. she presents in her slippers today. She denies any other injuries or loss of consciousness. She does have pain diffusely about her midfoot as well. No results found for: HGBA1C Past Medical History: Past Medical History: Diagnosis Date Hypertension Seizures (HCC) Past Surgical History: Past Surgical History: Procedure Laterality Date EYE SURGERY HYSTERECTOMY Current Medications: Current Outpatient Medications Medication Sig Dispense Refill aspirin 81 MG chewable tablet Chew 1 tablet in the morning. EPINEPHrine (Epipen) 0.3 MG/0.3ML injection syringe inject 0.3 milliliters ( 0.3 milligrams ) intramuscularly in OUTE... (REFER TO PRESCRIPTION NOTES). lisinopril 20 MG tablet Take 1 tablet by mouth in the morning. phenytoin ER (Dilantin) 100 MG capsule Take 200 mg by mouth in the morning and 200 mg before bedtime. sertraline (Zoloft) 100 MG tablet temazepam (Restoril) 15 MG capsule Take 15 mg by mouth every 24 hours as needed. No current facility-administered medications for this visit. Allergies: Bee venom, Lidocaine, Penicillins, and Sulfa antibiotics Social History: Social History Socioeconomic History Marital status: Spouse name: Not on file Number of children: Not on file Years of education: Not on file Highest education level: Not on file Occupational History Not on file Tobacco Use Smoking status: Every Day Types: Cigarettes Smokeless tobacco: Never Vaping Use Vaping Use: Never used Substance and Sexual Activity Alcohol use: No Drug use: Not on file Sexual activity: Not on file Other Topics Concern Not on file Social History Narrative Not on file Social Determinants of Health Financial Resource Strain: Not on file Food Insecurity: Not on file Transportation Needs: Not on file Physical Activity: Not on file Stress: Not on file Social Connections: Not on file Intimate Partner Violence: Not on file Housing Stability: Not on file Family History: Family History Problem Relation Name Age of Onset Stroke Mother Heart disease Father Heart attack Father Coronary artery disease Father REVIEW OF SYSTEMS: Surgical Risk Factors: Allergies to Metals or Latex: NO Have you been treated for a blood clot: NO Have you had a history of bleeding disorder: NO Have you had a history of Anesthetic problems: NO Do you have tendency to bruise easily: NO Do you experience prolonged or excessive bleeding from cuts or after surgery:NO General/Constitutional: General: NO Cancer: NO Acute/Chronic Infections: NO HEENT/Neck: Problems with theThroat: NO Problems with the Eyes: NO Problems with the Ears: NO Problems with the Nose and Sinuses: NO Endocrine: Problems with Diabetes: NO Problems with Thyroid Disorder: NO Thorax: Problems with the Heart: NO Problems with the Lung: NO Cardiovascular: Problems with Circulation: NO Problems with High Blood pressure: NO Gastrointestinal: Problems with Ulcers: NO Problems with the Liver: NO Problems with Bowel Habits: NO Genitourinary: Problems with the Genitals: NO Urinary problems: NO Kidney disease or stones: NO Skin: Any general problems: NO Neurologic: Dizziness, blurred vision, headaches, problems with balance : NO Seizures or Stroke: NO Psychiatric: Emotional or Psychological disorders: NO Depression or Anxiety: NO PHYSICAL EXAM: Vitals: Ht 1.676 m (5' 6) Wt 66.2 kg (146 lb) BMI 23.57 kg/m Constitutional: This an age appropriate female who is alert and oriented x3. The patient appears well nourished Psychiatric: The patient is able to verbalize normally and seems to have a good understanding of their situation. Vascular: DP/PT pulses 2/4 bilateral. CFT less than 5 seconds to digits bilateral. Skin temperature is warm to cool proximal to distal bilateral. No edema is noted bilateral. Hair growth is present bilateral. Neurological: Protective sensation is intact bilateral as tested with [place] monofilament. Dermatologic: Skin turgor is within normal limits. No lesions or wounds noted. Musculoskeletal: Pain palpation of right forefoot at the level of the metatarsal heads. Able to wiggle toes. Pain at the midfoot joint as well. Positive Dona sign noted. Ankle joint range of motion is decreased with pain and guarding. No pain to palpation of the ankle. No gross abduction of forefoot on right foot. X-ray 10/11/2023 as read by me: No gross changes in the alignment of the second, third, fourth and fifth metatarsal fractures at the level of the neck. These are nondisplaced with some lateral rotation. No gross or obvious signs of midfoot fracture or disruption to the Lisfranc ligament but unable to completely assess due to overlap. ASSESSMENT AND PLAN: (S92.324A) Nondisplaced fracture of second metatarsal bone, right foot, initial encounter for closed fracture (S92.301A) Closed nondisplaced fracture of metatarsal bone of right foot, unspecified metatarsal, initial encounter (S92.301A) Closed displaced fracture of metatarsal bone of right foot, unspecified metatarsal, initial encounter (S92.301A) Closed displaced fracture of metatarsal bone of right foot, unspecified metatarsal, initial encounter (S93.621D) Lisfranc's sprain, right, subsequent encounter (S92.334A) Closed nondisplaced fracture of third metatarsal bone of right foot, initial encounter (S92.344A) Closed nondisplaced fracture of fourth metatarsal bone of right foot, initial encounter (S92.351D) Closed fracture of base of fifth metatarsal bone with routine healing, right Patient was seen examined. Discussed metatarsal fractures in detail. X-rays reviewed with patient and her sister. The fractures are in good alignment. My concern is for Lisfranc injury and CT scan was ordered. This may lengthen the amount of time she needs to remain limited weightbearing. I do encourage her to wear CAM but she states that this is too heavy. Surgical shoe was dispensed today as she needs at least some support rather than slippers. She agrees to wear the surgical shoe. Will call her with the results of the CT scan. Continue [id number] pain relief as needed. Maryam bandage was applied today to control edema to the foot. Recommend she continue to ice and elevate. Would recommend that she be as nonweightbearing as possible but that is difficult for her debility and age. Voice recognition was used for portions of this note and although it was reviewed prior to signing some incorrect words or phrases could be present. Griselda Brown DPM documented in this encounter [facility] 10-01-2023 Emergency department Note Pt was able to walk with walking boot and walker. States she felt ok to go home with walking boot and has a walker at home.pt advised if she does not feel comfortable once she's home to return to emergency dept. Daja Guerra RN 10/01/231313 [facility] 10-01-2023 Emergency department Note Pt was able to walk with walking boot and walker. States she felt ok to go home with walking boot and has a walker at home.pt advised if she does not feel comfortable once she's home to return to emergency dept. Daja Guerra RN 10/01/238 EMERGENCY DEPARTMENT ENCOUNTER Pt Name: Maday Alfaro Birthdate 1940 Date of evaluation: 10/01/2023 ED Provider: DALTON Healy CNP I have evaluated this patient on my own, per my scope of practice with an attending physician available for consultation. CHIEF COMPLAINT Chief Complaint Patient presents with Foot Injury Right foot HISTORY OF PRESENT ILLNESS (Location/Symptom, Timing/Onset, Context/Setting, Quality, Duration, Modifying Factors, Severity) Note limiting factors. I wore appropriate PPE for the entirety of this encounter. HPI Maday Alfaro is a 83 y.o. who presents to the emergency department with chief complaint of with a injury to the right foot. Patient slipped on her bottom step of her porch last night fell and landed on her buttock. There was no syncope or loss of consciousness. She did not hit her head she denies neck back or low back or buttock pain. She states she twisted her foot when she fell and she complains of pain in the right foot. She denies any other injuries. Nursing Notes were reviewed. Limitations to history: None Outside historians: None REVIEW OF SYSTEMS Review of Systems Constitutional: Negative for activity change, appetite change, chills and fever. HENT: Negative for congestion, nosebleeds, sinus pain and trouble swallowing. Eyes: Negative for pain and visual disturbance. Respiratory: Negative for cough, chest tightness and shortness of breath. Cardiovascular: Negative for chest pain. Gastrointestinal: Negative for abdominal pain, diarrhea, nausea and vomiting. Genitourinary: Negative for dysuria, hematuria, pelvic pain, vaginal bleeding, vaginal discharge and vaginal pain. Musculoskeletal: Positive for arthralgias, joint swelling and myalgias. Negative for back pain and neck stiffness. Skin: Negative for rash and wound. Neurological: Negative for syncope, weakness, light-headedness and headaches. Hematological: Negative for adenopathy. Psychiatric/Behavioral: Negative for agitation and confusion. All other systems reviewed and are negative. Pertinent positives and negatives as per HPI. PAST MEDICAL HISTORY Past Medical History: Diagnosis Date Hypertension Seizures (CMS/HCC) (HCC) SURGICAL HISTORY Past Surgical History: Procedure Laterality Date EYE SURGERY HYSTERECTOMY CURRENT MEDICATIONS Previous Medications ASPIRIN 81 MG CHEWABLE TABLET Chew 1 tablet in the morning. LISINOPRIL 20 MG TABLET Take 1 tablet by mouth in the morning. PHENYTOIN ER (DILANTIN) 100 MG CAPSULE Take 200 mg by mouth in the morning and 200 mg before bedtime. TEMAZEPAM (RESTORIL) 15 MG CAPSULE Take 15 mg by mouth every 24 hours as needed. ALLERGIES Bee venom, Lidocaine, Penicillins, and Sulfa antibiotics FAMILY HISTORY Family History Problem Relation Name Age of Onset Stroke Mother Heart disease Father Heart attack Father Coronary artery disease Father SOCIAL HISTORY Social History Socioeconomic History Marital status: Tobacco Use Smoking status: Every Day Types: Cigarettes Smokeless tobacco: Never Vaping Use Vaping Use: Never used Substance and Sexual Activity Alcohol use: No SCREENINGS PHYSICAL EXAM ED Triage Vitals [10/01/23 1123] Temp Heart Rate Resp BP 36.6 C (97.9 F) 73 14 131/79 SpO2 Temp Source Heart Rate Source Patient Position 97 % Temporal Monitor -- BP Location FiO2 (%) -- -- Physical Exam Vitals and nursing note reviewed. Constitutional: General: She is not in acute distress. Appearance: Normal appearance. She is normal weight. She is not ill-appearing or toxic-appearing. HENT: Head: Normocephalic and atraumatic. Right Ear: External ear normal. Left Ear: External ear normal. Mouth/Throat: Mouth: Mucous membranes are moist. Pharynx: Oropharynx is clear. Eyes: Extraocular Movements: Extraocular movements intact. Conjunctiva/sclera: Conjunctivae normal. Pupils: Pupils are equal, round, and reactive to light. Musculoskeletal: Cervical back: Normal range of motion and neck supple. No rigidity or tenderness. Comments: No tenderness to the cervical, thoracic, lumbar spine, pelvis is stable hips are nontender full range of motion of the hips bilaterally without pain no pain with range of motion of the left knee ankle or foot no pain with range of motion of the right knee or ankle, DP pulses are 2+ swelling and tenderness over the distal portion of the third through fifth metatarsal of the right foot there is intact dorsiflexion and plantarflexion of the right foot. Lymphadenopathy: Cervical: No cervical adenopathy. Skin: General: Skin is warm and dry. Capillary Refill: Capillary refill takes less than 2 seconds. Coloration: Skin is not jaundiced or pale. Findings: No bruising or erythema. Neurological: General: No focal deficit present. Mental Status: She is alert and oriented to person, place, and time. Mental status is at baseline. Cranial Nerves: No cranial nerve deficit. Sensory: No sensory deficit. Motor: No weakness. Psychiatric: Mood and Affect: Mood normal. DIAGNOSTIC RESULTS Procedures/EKG: EKG was reviewed by myself. Physician EKG interpretation can be found in [facility] RADIOLOGY (Per Emergency Physician): Interpretation per the Radiologist below, if available at the time of this note: XR foot 3+ views right Final Result Acute, comminuted and slightly displaced fractures of the necks of metatarsals 2-5 with associated soft tissue swelling. Osteopenia. Report Dictated on Electronically Signed By: Osman Reed MD Electronically Signed Date/Time: 10/01/2023 12:17 PM EST ED BEDSIDE ULTRASOUND: Performed by ED Physician - none LABS: Labs Reviewed - No data to display All other labs were within normal range or not returned as of this dictation. EMERGENCY DEPARTMENT COURSE and DIFFERENTIAL DIAGNOSIS/MDM: Vitals: Vitals: 10/01/23 1123 BP: 131/79 Pulse: 73 Resp: 14 Temp: 36.6 C (97.9 F) TempSrc: Temporal SpO2: 97% Weight: 66.2 kg (146 lb) Diagnoses as of 10/01/23 1255 Fall, initial encounter Closed displaced fracture of metatarsal bone of right foot, unspecified metatarsal, initial encounter - 2-5 metatarsal neck fracture The patient presented with chief complaint of with chief complaint of with a injury to the right foot. Patient slipped on her bottom step of her porch last night fell and landed on her buttock. There was no syncope or loss of consciousness. She did not hit her head she denies neck back or low back or buttock pain. She states she twisted her foot when she fell and she complains of pain in the right foot. She denies any other injuries.. The differential diagnosis associated with this patient's presentation includes foot sprain, foot fracture. Our workup consisted of ordering/reviewing: Three-view x-ray right foot. To aid in management, I performed an independent interpretation of Xray(s) x-ray of the right foot per my interpretation shows no dislocation there is fracture of the neck of the second through fifth metatarsals. The patient will be Discharged. Patient is in agreement with this plan. Will place the patient in an orthotic boot and attempt a walker here, I am extraordinarily hesitant to place this patient in a nonweightbearing splint with crutches. If she is able to ambulate with orthotic boot she is amenable to Tylenol follow-up with orthopedics. Medications - No data to display REVAL: CRITICAL CARE TIME None CONSULTS: None PROCEDURES: Unless otherwise noted below, none Procedures Patients symptoms are consistent with sepsis, severe sepsis, or septic shock (If yes use .sepsiscoremeasure): no FINAL IMPRESSION 1. Closed displaced fracture of metatarsal bone of right foot, unspecified metatarsal, initial encounter 2. Fall, initial encounter DISPOSITION Discharge 10/01/2023 12:52:30 PM PATIENT REFERRED TO: [facility] [address] [place] [address] [address] [facility] [address] Call in 1 day DISCHARGE MEDICATIONS: New Prescriptions No medications on file (Comment: Please note this report has been produced using speech recognition software and may contain errors related to that system including errors in grammar, punctuation, and spelling, as well as words and phrases that may be inappropriate. If there are any questions or concerns please feel free to contact the dictating provider for clarification.) DALTON Healy CNP (electronically signed) Emergency Medicine Provider DALTON Healy CNP 10/01/23 1256 Pt states last night she was walking down her steps (3) and felt like her foot gave out on her and caused her to fall. Pt co right foot pain and buttock pain. Denies hitting head or any other injury documented in this encounter [facility] 10-01-2023 Hospital Discharg e instructions DALTON Healy CNP - 10/01/2023 12:54 PM EST We need to wear the boot when walking, if you wear it at night when you are sleeping only put it on loosely you do not need to wear it when you are showering or watching TV only when you are walking The following attachments cannot be sent through Care Everywhere.Foot Fracture Discharge Instructions (Macedonian)Walking Boot (Macedonian)documented in this encounter [facility] 10-01-2023 Emergency department Triage note Pt states last night she was walking down her steps (3) and felt like her foot gave out on her and caused her to fall. Pt co right foot pain and buttock pain. Denies hitting head or any other injury [facility] 10-01-2023 Physician Emergency department Note EMERGENCY DEPARTMENT ENCOUNTER Pt Name: Maday Alfaro Birthdate 1940 Date of evaluation: 10/01/2023 ED Provider: DALTON Healy CNP I have evaluated this patient on my own, per my scope of practice with an attending physician available for consultation. CHIEF COMPLAINT Chief Complaint Patient presents with Foot Injury Right foot HISTORY OF PRESENT ILLNESS (Location/Symptom, Timing/Onset, Context/Setting, Quality, Duration, Modifying Factors, Severity) Note limiting factors. I wore appropriate PPE for the entirety of this encounter. HPI Maday Alfaro is a 83 y.o. who presents to the emergency department with chief complaint of with a injury to the right foot. Patient slipped on her bottom step of her porch last night fell and landed on her buttock. There was no syncope or loss of consciousness. She did not hit her head she denies neck back or low back or buttock pain. She states she twisted her foot when she fell and she complains of pain in the right foot. She denies any other injuries. Nursing Notes were reviewed. Limitations to history: None Outside historians: None REVIEW OF SYSTEMS Review of Systems Constitutional: Negative for activity change, appetite change, chills and fever. HENT: Negative for congestion, nosebleeds, sinus pain and trouble swallowing. Eyes: Negative for pain and visual disturbance. Respiratory: Negative for cough, chest tightness and shortness of breath. Cardiovascular: Negative for chest pain. Gastrointestinal: Negative for abdominal pain, diarrhea, nausea and vomiting. Genitourinary: Negative for dysuria, hematuria, pelvic pain, vaginal bleeding, vaginal discharge and vaginal pain. Musculoskeletal: Positive for arthralgias, joint swelling and myalgias. Negative for back pain and neck stiffness. Skin: Negative for rash and wound. Neurological: Negative for syncope, weakness, light-headedness and headaches. Hematological: Negative for adenopathy. Psychiatric/Behavioral: Negative for agitation and confusion. All other systems reviewed and are negative. Pertinent positives and negatives as per HPI. PAST MEDICAL HISTORY Past Medical History: Diagnosis Date Hypertension Seizures (CMS/HCC) (HCC) SURGICAL HISTORY Past Surgical History: Procedure Laterality Date EYE SURGERY HYSTERECTOMY CURRENT MEDICATIONS Previous Medications ASPIRIN 81 MG CHEWABLE TABLET Chew 1 tablet in the morning. LISINOPRIL 20 MG TABLET Take 1 tablet by mouth in the morning. PHENYTOIN ER (DILANTIN) 100 MG CAPSULE Take 200 mg by mouth in the morning and 200 mg before bedtime. TEMAZEPAM (RESTORIL) 15 MG CAPSULE Take 15 mg by mouth every 24 hours as needed. ALLERGIES Bee venom, Lidocaine, Penicillins, and Sulfa antibiotics FAMILY HISTORY Family History Problem Relation Name Age of Onset Stroke Mother Heart disease Father Heart attack Father Coronary artery disease Father SOCIAL HISTORY Social History Socioeconomic History Marital status: Tobacco Use Smoking status: Every Day Types: Cigarettes Smokeless tobacco: Never Vaping Use Vaping Use: Never used Substance and Sexual Activity Alcohol use: No SCREENINGS PHYSICAL EXAM ED Triage Vitals [10/01/23 1123] Temp Heart Rate Resp BP 36.6 C (97.9 F) 73 14 131/79 SpO2 Temp Source Heart Rate Source Patient Position 97 % Temporal Monitor -- BP Location FiO2 (%) -- -- Physical Exam Vitals and nursing note reviewed. Constitutional: General: She is not in acute distress. Appearance: Normal appearance. She is normal weight. She is not ill-appearing or toxic-appearing. HENT: Head: Normocephalic and atraumatic. Right Ear: External ear normal. Left Ear: External ear normal. Mouth/Throat: Mouth: Mucous membranes are moist. Pharynx: Oropharynx is clear. Eyes: Extraocular Movements: Extraocular movements intact. Conjunctiva/sclera: Conjunctivae normal. Pupils: Pupils are equal, round, and reactive to light. Musculoskeletal: Cervical back: Normal range of motion and neck supple. No rigidity or tenderness. Comments: No tenderness to the cervical, thoracic, lumbar spine, pelvis is stable hips are nontender full range of motion of the hips bilaterally without pain no pain with range of motion of the left knee ankle or foot no pain with range of motion of the right knee or ankle, DP pulses are 2+ swelling and tenderness over the distal portion of the third through fifth metatarsal of the right foot there is intact dorsiflexion and plantarflexion of the right foot. Lymphadenopathy: Cervical: No cervical adenopathy. Skin: General: Skin is warm and dry. Capillary Refill: Capillary refill takes less than 2 seconds. Coloration: Skin is not jaundiced or pale. Findings: No bruising or erythema. Neurological: General: No focal deficit present. Mental Status: She is alert and oriented to person, place, and time. Mental status is at baseline. Cranial Nerves: No cranial nerve deficit. Sensory: No sensory deficit. Motor: No weakness. Psychiatric: Mood and Affect: Mood normal. DIAGNOSTIC RESULTS Procedures/EKG: EKG was reviewed by myself. Physician EKG interpretation can be found in [facility] RADIOLOGY (Per Emergency Physician): Interpretation per the Radiologist below, if available at the time of this note: XR foot 3+ views right Final Result Acute, comminuted and slightly displaced fractures of the necks of metatarsals 2-5 with associated soft tissue swelling. Osteopenia. Report Dictated on Electronically Signed By: Osman Reed MD Electronically Signed Date/Time: 10/01/2023 12:17 PM EST ED BEDSIDE ULTRASOUND: Performed by ED Physician - none LABS: Labs Reviewed - No data to display All other labs were within normal range or not returned as of this dictation. EMERGENCY DEPARTMENT COURSE and DIFFERENTIAL DIAGNOSIS/MDM: Vitals: Vitals: 10/01/23 1123 BP: 131/79 Pulse: 73 Resp: 14 Temp: 36.6 C (97.9 F) TempSrc: Temporal SpO2: 97% Weight: 66.2 kg (146 lb) Diagnoses as of 10/01/23 1255 Fall, initial encounter Closed displaced fracture of metatarsal bone of right foot, unspecified metatarsal, initial encounter - 2-5 metatarsal neck fracture The patient presented with chief complaint of with chief complaint of with a injury to the right foot. Patient slipped on her bottom step of her porch last night fell and landed on her buttock. There was no syncope or loss of consciousness. She did not hit her head she denies neck back or low back or buttock pain. She states she twisted her foot when she fell and she complains of pain in the right foot. She denies any other injuries.. The differential diagnosis associated with this patient's presentation includes foot sprain, foot fracture. Our workup consisted of ordering/reviewing: Three-view x-ray right foot. To aid in management, I performed an independent interpretation of Xray(s) x-ray of the right foot per my interpretation shows no dislocation there is fracture of the neck of the second through fifth metatarsals. The patient will be Discharged. Patient is in agreement with this plan. Will place the patient in an orthotic boot and attempt a walker here, I am extraordinarily hesitant to place this patient in a nonweightbearing splint with crutches. If she is able to ambulate with orthotic boot she is amenable to Tylenol follow-up with orthopedics. Medications - No data to display REVAL: CRITICAL CARE TIME None CONSULTS: None PROCEDURES: Unless otherwise noted below, none Procedures Patients symptoms are consistent with sepsis, severe sepsis, or septic shock (If yes use .sepsiscoremeasure): no FINAL IMPRESSION 1. Closed displaced fracture of metatarsal bone of right foot, unspecified metatarsal, initial encounter 2. Fall, initial encounter DISPOSITION Discharge 10/01/2023 12:52:30 PM PATIENT REFERRED TO: [facility] [address] [place] [address] [address] [facility] [address] Call in 1 day DISCHARGE MEDICATIONS: New Prescriptions No medications on file (Comment: Please note this report has been produced using speech recognition software and may contain errors related to that system including errors in grammar, punctuation, and spelling, as well as words and phrases that may be inappropriate. If there are any questions or concerns please feel free to contact the dictating provider for clarification.) DALTON Healy CNP (electronically signed) Emergency Medicine Provider DALTON Healy CNP 10/01/23 1256 [facility] Evaluation note Diagnosis Closed displaced fracture of metatarsal bone of right foot, unspecified metatarsal, initial encounter- Primary Fall, initial encounter documented in this encounter [facility]* Diagnosis Closed displaced fracture of metatarsal bone of right foot, unspecified metatarsal, initial encounter documented in this encounter [facility]* Diagnosis Nondisplaced fracture of second metatarsal bone, right foot, initial encounter for closed fracture- Primary Closed nondisplaced fracture of metatarsal bone of right foot, unspecified metatarsal, initial encounter Closed displaced fracture of metatarsal bone of right foot, unspecified metatarsal, initial encounter Lisfranc's sprain, right, subsequent encounter Closed nondisplaced fracture of third metatarsal bone of right foot, initial encounter Closed nondisplaced fracture of fourth metatarsal bone of right foot, initial encounter Closed fracture of base of fifth metatarsal bone with routine healing, right Closed displaced fracture of metatarsal bone of right foot, unspecified metatarsal, initial encounter documented in this encounter [facility]* Diagnosis Closed displaced fracture of metatarsal bone of right foot, unspecified metatarsal, initial encounter Lisfranc's sprain, right, subsequent encounter documented in this encounter [facility]* Diagnosis Closed nondisplaced fracture of metatarsal bone of right foot, unspecified metatarsal, initial encounter- Primary Closed displaced fracture of metatarsal bone of right foot, unspecified metatarsal, initial encounter Lisfranc's sprain, right, subsequent encounter Nondisplaced fracture of second metatarsal bone, right foot, initial encounter for closed fracture Closed nondisplaced fracture of fourth metatarsal bone of right foot, initial encounter Closed nondisplaced fracture of third metatarsal bone of right foot, initial encounter Closed fracture of base of fifth metatarsal bone with routine healing, right documented in this encounter [facility]* Diagnosis Menopause- Primary Symptomatic menopausal or female climacteric states documented in this encounter [facility]* Diagnosis Menopause Symptomatic menopausal or female climacteric states documented in this encounter [facility]* Diagnosis Closed nondisplaced fracture of surgical neck of right humerus, unspecified fracture morphology, initial encounter- Primary documented in this encounter [facility]* Diagnosis Closed nondisplaced fracture of surgical neck of right humerus, unspecified fracture morphology, initial encounter documented in this encounter [facility]* Diagnosis Closed nondisplaced fracture of surgical neck of right humerus, unspecified fracture morphology, initial encounter- Primary documented in this encounter [facility]* Diagnosis Closed nondisplaced fracture of surgical neck of right humerus, unspecified fracture morphology, initial encounter- Primary documented in this encounter [facility]* Diagnosis Closed nondisplaced fracture of surgical neck of right humerus, unspecified fracture morphology, initial encounter- Primary documented in this encounter [facility] note* Diagnosis Closed nondisplaced fracture of surgical neck of right humerus, unspecified fracture morphology, initial encounter- Primary documented in this encounter [facility] note* Diagnosis Closed fracture of proximal end of right humerus with routine healing, unspecified fracture morphology, subsequent encounter- Primary documented in this encounter [facility]* Diagnosis Closed nondisplaced fracture of surgical neck of right humerus, unspecified fracture morphology, initial encounter- Primary documented in this encounter [facility] note* Diagnosis Paroxysmal atrial fibrillation (HCC)- Primary Atrial fibrillation documented in this encounter [facility] note* Diagnosis Closed intertrochanteric fracture of hip, left, initial encounter ([facility])- Primary Closed displaced intertrochanteric fracture of left femur, initial encounter (HCC) Closed intertrochanteric fracture of hip, left, initial encounter ([facility]) Osteoporosis, unspecified osteoporosis type, unspecified pathological fracture presence documented in this encounter [facility]* Diagnosis Closed displaced intertrochanteric fracture of left femur with routine healing, subsequent encounter- Primary documented in this encounter [facility] note* Diagnosis Paroxysmal atrial fibrillation (HCC) Atrial fibrillation documented in this encounter [facility] note* Diagnosis Stroke-like symptoms- Primary Stroke-like symptoms Altered mental status, unspecified altered mental status type Declining functional status Edema of left forearm Closed nondisplaced fracture of surgical neck of right humerus, unspecified fracture morphology, initial encounter Severe malnutrition (CMS/HCC) (HCC) Nutritional marasmus [facility] Consultation (Routine) - Pending Review Specialty Diagnoses / Procedures Referred By Ben t Referred To Contact Orthopedic Surgery Diagnoses Closed displaced fracture of metatarsal bone of right foot, unspecified metatarsal, initial encounter Jaguar Christine APRN - CNP [address] [place] [address] [facility] [employer] [address] [facility] [facility] [address] [place] [address] Referral ID Status Reason Start Date Expiration Date Visits Requested Visits Authorized [id number] Pending Review Specialty Services Required 10/01/2023 09/30/2024 1 1 [facility] for visit Narrative* Therapy (Routine) - Authorized Specialty Diagnoses / Procedures Referred By Ben salinas Referred To Contact Physical Therapy Diagnoses Unspecified nondisplaced fracture of surgical neck of right humerus, subsequent encounter for fracture with routine healing Procedures [place] OFFICE/OUTPATIENT [facility] 60 MINUTES Brendon Sommers MD [address] [place] [address] Phone: tel: fax: [facility] Therapy at [facility] [address] [place] [address] [place] [address] Phone: tel: fax: Referral ID Status Reason Start Date Expiration Date Visits Requested Visits Authorized [id number] Authorized Eval and Treat 07/18/2024 17 17 [facility] for visit Narrative* Cardiology (Routine) - Closed Specialty Diagnoses / Procedures Referred By Ben salinas Referred To Contact Cardiology Diagnoses Paroxysmal atrial fibrillation (HCC) Procedures Cardiac event monitor (30 days) [place] XTRNL PT ACTIVATED ECG RECORD MONITOR 30 DAYS [place] XTRNL PT ACTIVTD ECG DWNLD W/R&I </30 DAYS Krupa Cid APRN - CNP [address] [place] [address] Phone: tel: fax: Referral ID Status Reason Start Date Expiration Date Visits Re quested Visits Authorized [id number] Closed 04/25/2025 04/20/2026 1 1 [facility] Health Summary Purpose Family History No Family History Records FoundNo Family History Records FoundNo Family History Records FoundNo Family History Records Found Advance Directives Date Activated Date Inactivated Comments 05/10/2025 7:05 PM Healthcare Agents on File Name Relationship Healthcare Jeff aj Communication Ed June Health Care Agent [id number] (Mobile) Date Activated Date Inactivated Comments 05/10/2025 7:05 PM 2025 6:11 PM Healthcare Agents on File Name Hilda aj Communication Ed June Health Care Agent [id number] (Mobile) Hospital Course Note Hospitalist Discharge Summar y Maday Alfaro : 1940 Admit date: 08/05/2018 Discharge date: 08/06/2018 Admitting Physician: Ray Sarmiento DO Primary Care Physician: DESTINY JEAN BAPTISTE Visit Status: Observation Code Status: Full Code Discharge Diagnoses: 1. Chest pain-atypical, non-cardiac 2. Hyperlipidemia 3. Hx of HTN 4. Hx of seizure disorder Diagnosis Date ? Hypertension ? Seizures (HCC) Procedures: stress test(normal) Hospital Course: Maday is a 78 y.o. female with past medical history below who presents with chief complaint listed above that started on Monday and 8 out of 10 pain. Has been intermittent and describes sharp stabbing sensation. Initial work up in ED negative. Admited to telemetry for further evaluation and management. No events on telemetry, EKG with no significant changes and stress test was normal. See medication adjustments below in med rec.The patient is discharged in improved and stable condition. Consults: None Discharge Instructions: Diet: (more content not included)... Reason for Referral Specialty Diagnoses / Procedures Referred By Ben salinas Referred To Contact Radiology Diagnoses Closed displaced fracture of metatarsal bone of right foot, unspecified metatarsal, initial encounter Lisfranc's sprain, right, subsequent encounter Procedures CT foot right wo IV contrast Griselda Brown DPM [address] [place] [address] Referral ID Status Reason Start Date Expiration Date V isits Requested Visits Authorized [id number] Authorized 10/11/2023 10/10/2024 1 1 Referral ID Status Reason Start Date Expiration Date Visits Re quested Visits Authorized [id number] Closed 10/11/2023 10/10/2024 1 1 Additional Source Comments INFORMATION SOURCE (unrecogn ized section and content) DATE CREATED AUTHOR 01/05/2019 [facility] [employer] DATE CREATED AUTHOR AUTHOR'S ORGANIZ ATION 01/17/2019 [facility] [facility] [employer] DATE CREATED AUTHOR AUTHOR'S ORGANIZ ATION 2025 [facility] DATE CREATED AUTHOR AUTHOR'S ORGANIZ ATION 05/17/2025 [facility] [employer] [facility] Reason for Visit (unrecogniz ed section and content) Reason Comments Foot Injury Right foot Reason Comments New Patient Right foot, comminut ed and slightly displaced fractures of the necks of the metatarsals 2-5, DOI 09/30/2023 Specialty Diagnoses / Procedures Referred By Ben salinas Referred To Contact Orthopedic Surgery Diagnoses Closed displaced fracture of metatarsal bone of right foot, unspecified metatarsal, initial encounter Jaguar Christine APRN - [employer] [address] [place] [address] [facility] [employer] [address] [place] [address] Referral ID Status Reason Start Date Expiration Date V isits Requested Visits Authorized [id number] Closed Specialty Services Required 10/01/2023 09/30/2024 1 1 Specialty Diagnoses / Procedures Referred By Ben salinas Referred To Contact Radiology Diagnoses Closed displaced fracture of metatarsal bone of right foot, unspecified metatarsal, initial encounter Lisfranc's sprain, right, subsequent encounter Procedures CT foot right wo IV contrast Griselda Brown, MOUSTAPHA [address] [place] [address] Referral ID Status Reason Start Date Expiration Date Visits Re quested Visits Authorized [id number] Closed 10/11/2023 10/10/2024 1 1 Reason Comments Follow-up Right foot fracture Reason Comments Arm Injury Patient reports a fa ll last night and states she tried to break her fall with her right arm. Patient reports right arm pain, unable to move it much. 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 RIGHT Specialty Diagnoses / Procedures Referred By Ben t Referred To Contact Orthopedic Surgery Diagnoses Closed nondisplaced fracture of surgical neck of right humerus, unspecified fracture morphology, initial encounter Nguyễn Caal DO [address] [place] [address] Phone: tel: fax: [facility] Orthopedics [facility] Sports Medicine [facility] [address] [place] [address] Phone: tel: fax: Referral ID Status Reason Start Date Expiration Date Visits Requested Visits Authorized [id number] Pending Review Specialty Services Required 07/15/2024 07/15/2025 1 1 Reason Comments Follow-up Right proximal humer us fracture Reason Comments PT Discharge Reason Comments Hip Pain Hip pain post fall. Pt was down for about four hours. Pt has c/o left hip and leg pain . Shortening and rotation noted . Specialty Diagnoses / Procedures Referred By Ben t Referred To Contact Diagnoses Closed intertrochanteric fracture of hip, left, initial encounter ([facility]) Procedures . Miller Lee DO [address] [place] [address] Phone: tel: fax: [facility] [address] [place] [id number] Phone: tel: fax: Referral ID Status Reason Start Date Expiration Date Visits Re quested Visits Authorized [id number] 1 1 Reason Comments Fall Altered Mental Status Specialty Diagnoses / Procedures Referred By Ben t Referred To Contact Diagnoses Stroke-like symptoms Declining functional status Altered mental status, unspecified altered mental status type Procedures .. Nemo Bunn MD [address] [place] [address] Phone: tel: fax: [facility] Cardiac Progressive Care Unit PCU [address] [place] [address] Phone: tel: Referral ID Status Reason Start Date Expiration Date Visits Re quested Visits Authorized [id number] 1 1 Care Teams (unrecognized sec tion and content) Cereal Chemist Relationship Specialty Start Date End Date Destiny Jean Baptiste PCP - General 03/09/15 Cereal Chemist Relationship Specialty Start Date End Date Christian Harrison [address] [place] [address] PCP - General Nurse Practitioner 10/11/23 Cereal Chemist Relationship Specialty Start Date End Date Christian Harrison [address] [place] [address] PCP - General Nurse Practitioner 10/11/23 Cereal Chemist Relationship Specialty Start Date End Date Christian Harrison [address] [place] [address] PCP - General Nurse Practitioner 10/11/23 Cereal Chemist Relationship Specialty Start Date End Date Christian Harrison [address] [place] [address] PCP - General Nurse Practitioner 10/11/23 Cereal Chemist Relationship Specialty Start Date End Date Christian Harrison [address] [place] [address] PCP - General Nurse Practitioner 10/11/23 Cereal Chemist Relationship Specialty Start Date End Date Christian Harrison NEWSPAPER OR PERIODICAL EDITOR [address] [place] [address] PCP - General Nurse Practitioner 10/11/23 Cereal Chemist Relationship Specialty Start Date End Date Christian Harrison NP [address] [place] [address] PCP - General Nurse Practitioner 10/11/23 Cereal Chemist Relationship Specialty Start Date End Date Christian Harrison NEWSPAPER OR PERIODICAL EDITOR [address] [place] [address] PCP - General Nurse Practitioner 10/11/23 Cereal Chemist Relationship Specialty Start Date End Date Christian Harrison NEWSPAPER OR PERIODICAL EDITOR [address] [place] [address] PCP - General Nurse Practitioner 10/11/23 Cereal Chemist Relationship Specialty Start Date End Date Christian Harrison NP [address] [place] [address] PCP - General Nurse Practitioner 10/11/23 Cereal Chemist Relationship Specialty Start Date End Date Christian Harrison NP [address] [place] [address] PCP - General Nurse Practitioner 10/11/23 Cereal Chemist Relationship Specialty Start Date End Date Christian Harrison NP [address] [place] [address] PCP - General Nurse Practitioner 10/11/23 Cereal Chemist Relationship Specialty Start Date End Date Christian Harrison NEWSPAPER OR PERIODICAL EDITOR [address] [place] [address] PCP - General Nurse Practitioner 10/11/23 Cereal Chemist Relationship Specialty Start Date End Date Christian Harrison NP [address] [place] [address] PCP - General Nurse Practitioner 10/11/23 Cereal Chemist Relationship Specialty Start Date End Date Christian Harrison NP [address] [place] [address] PCP - General Nurse Practitioner 10/11/23 Cereal Chemist Relationship Specialty Start Date End Date Christian Harrison NP [address] [place] [address] PCP - General Nurse Practitioner 10/11/23 Cereal Chemist Relationship Specialty Start Date End Date Christian Harrison NP [address] [place] [id number] PCP - General Nurse Practitioner 10/11/23 Cereal Chemist Relationship Specialty Start Date End Date Christian Harrison NP [address] [place] [id number] PCP - General Nurse Practitioner 10/11/23 Cereal Chemist Relationship Specialty Start Date End Date Christian Harrison NP [address] [place] [id number] PCP - General Nurse Practitioner 10/11/23 Scheduled Active and Recently Administ ered Medications (unrecognized section and content) Medication Order 07/13/2024 07/14/2024 07/15/2024 oxyCODONE (Roxicodone) immediate release tablet 5 mg (COMPLETED) 5 mg, Oral, Once, On Mon07/15/24 at 1435, For 1 dose 1542 (Given - Provid er: Blayne Gamez RN) Scheduled Medication Order 04/28/2025 04/29/2025 04/30/2025 acetaminophen (Tylenol) tablet 1,000 mg 1,000 mg, Oral, 3 times daily, First dose (after last modification) on Jaz 04/24/25 at 1400, Phase II/On Unit, If inadequate response within 60 minutes, proceed to next-line agent for same PRN reason or contact provider if no further options ordered. 0940 (Not Given - Provider: Daja Garvin RN - Reason: Patient/family refused)1422 (Not Given - Provider: Daja Garvin RN - Reason: Patient/family refused)2031 (Not Given - Provider: Timothy Trinh RN - Reason: Patient/family refused) 0913 (Given - Provider: Tessa Jordan RN)1503 (Not Given - Provider: Tessa Jordan RN - Reason: Patient/family refused)210 (Given - Provider: Griselda Lo, ALFREDO) 0817 (Not Given - Provider: Tu Bazzi RN - Reason: Patient/family refused)1400 (Canceled Entry - Provider: Automatic Discharge Provider - Comment: Automatically canceled at discontinue of medication order) aspirin chewable tablet 81 mg 81 mg, Oral, Daily, First dose on Mon04/23/25 at 1045 0940 (Given - Provider: Daja Garvin RN) 0913 (Given - Provider: Tessa Jordan RN) 0816 (Given - Provider: Tu Bazzi, ALFREDO) enoxaparin (Lovenox) syringe 30 mg 30 mg, SubCUTAneous, Every 12 hours, First dose on Mon04/23/25 at 1045, Indication of Use: Prophylaxis-DVT/PE, Indications: Prophylaxis of Venous Thromboembolism 0940 (Given - Provider: Daja Garvin RN)2140 (Given - Provider: Timothy Trinh RN) 0912 (Given - Provider: Tessa Jordan RN)210 (Given - Provider: Griselda Lo, ALFREDO) 0830 (Given - Provider: Tu Bazzi, ALFREDO) ergocalciferol (Vitamin D2) capsule 1.25 mg 1.25 mg, Oral, Weekly, First dose on Mon04/27/25 at 0900 melatonin tablet 5 mg 5 mg, Oral, Nightly, First dose (after last modification) on Mon04/22/25 at 0015, Phase II/On Unit 2031 (Given - Provider: Timothy Trinh RN) 2105 (Given - Provider: Griselda Lo RN) phenytoin ER (Dilantin) capsule 200 mg 200 mg, Oral, 2 times daily, First dose on Mon04/21/25 at 2100, Phase II/On Unit, Hold enteral nutrition at least 1 hour before and 2 hours after dose. Monitor drug levels. HAZARDOUS - use appropriate precautions for handling and disposal. Do not crush, split, or open. 0940 (Given - Provider: Daja Garvin, ALFREDO)2031 (Given - Provider: Timothy Trinh, RN) 09 (Given - Provider: Tessa Jordan, RN)2105 (Given - Provider: Griselda Lo, RN) 08 (Given - Provider: Tu Bazzi, RN) polyethylene glycol (PEG) 3350 (Miralax) packet 17 g 17 g, Oral, Daily, First dose on Mon04/21/25 at 1900, Phase II/On Unit 0940 (Given - Provider: Daja Garvin RN) 0911 (Given - Provider: Tessa Jordan, RN) 0824 (Not Given - Provider: Tu Bazzi, ALFREDO - Reason: Patient/family refused) senna-docusate sodium (Senokot-S) 8.6-50 MG tablet 2 tablet 2 tablet, Oral, 2 times daily, First dose on Mon04/21/25 at 2100, Phase II/On Unit 0940 (Given - Provider: Daja Garvin RN)2031 (Given - Provider: Timothy Trinh, ALFREDO) 09 (Given - Provider: Tessa Jordan, RN)2105 (Given - Provider: Griselda Lo, ALFREDO) 0817 (Given - Provider: Tu Bazzi, ALFREDO) sertraline (Zoloft) tablet 200 mg 200 mg, Oral, Daily, First dose on Mon04/22/25 at 1415 0940 (Given - Provider: Daja Garvin RN) 0923 (Given - Provider: Tessa Jordan, RN) 0824 (Given - Provider: Tu Bazzi, RN) thiamine (Vitamin B1) injection 100 mg 100 mg, IntraVENous, Daily, First dose on Mon04/22/25 at 0900 0940 (Given - Provider: Daja Garvin RN) 0913 (Given - Provider: Tessa Jordan, RN) 0818 (Given - Provider: Tu Bazzi, RN) PRN Medication Order 04/28/2025 04/29/2025 04/30/2025 naloxone (Narcan) injection 0.4 mg 0.4 mg, IntraVENous, Every 5 min PRN, opioid reversal, respiratory depression, Starting on Mon04/21/25 at 1955, +++ For RR <10, pinpoint pupils, over sedation for opioid reversal - MUST notify manager of production provider immediately after first dose, may give IM or SQ if no IV access +++ oxyCODONE (Roxicodone) immediate release tablet 10 mg(Linked Group 1) 10 mg, Oral, Every 4 hours PRN, severe pain (7-10), Starting on Mon04/22/25 at 0011 0602 (See Alternative - Provider: Lili Arias, ALFREDO) oxyCODONE (Roxicodone) immediate release tablet 5 mg(Linked Group 1) 5 mg, Oral, Every 4 hours PRN, moderate pain (4-6), Starting on Mon04/22/25 at 0011 0602 (Given - Provider: Lili Arias, ALFREDO) perflutren protein A microsphere (Optison) 3 mL in sodium chloride (PF) 0.9 % 10 mL IV 0-10 mL, IntraVENous, IMG once PRN, other, Suboptimal echo image, Starting on Mon04/21/25 at 1851, For 1 dose, CV Procedural Medications, Administer via slow IVP for suboptimal echocardiogram enhancement. May administer as divided doses to reach optimal image enhancement sodium chloride 0.9 % infusion 250 mL/hr, IntraVENous, Administer over 10 Minutes, As needed, For use in priming line prior to transfusion (prime via gravity) and flush line post transfusion, Starting on Mon04/21/25 at 1936, For 1 dose, Phase II/On Unit, For use in priming line prior to transfusion (prime via gravity) and flush line post transfusion ONLY. Discontinue once line has been cleared of remaining blood product. sodium chloride 0.9 % infusion 250 mL/hr, IntraVENous, Administer over 10 Minutes, As needed, For use in priming line prior to transfusion (prime via gravity) and flush line post transfusion, Starting on Mon04/22/25 at 1124, For 1 dose, For use in priming line prior to transfusion (prime via gravity) and flush line post transfusion ONLY. Discontinue once line has been cleared of remaining blood product. temazepam (Restoril) capsule 15 mg 15 mg, Oral, Nightly PRN, sleep, Starting on Mon04/22/25 at 1405 Linked Groups Order Group 1: oxyCODONE (Roxicodone) immediate release tablet 5 mgJump to med 5 mg, Oral, Every 4 hours PRN, moderate pain (4-6), Starting on Mon04/22/25 at 0011 Or oxyCODONE (Roxicodone) immediate release tablet 10 mgJump to med 10 mg, Oral, Every 4 hours PRN, severe pain (7-10), Starting on Mon04/22/25 at 0011 Scheduled Medication Order 05/14/2025 05/15/2025 2025 aspirin EC tablet 81 mg(Linked Group 1) 81 mg, Oral, Daily, First dose on Mon05/10/25 at 1910, Do NOT administer if bleed present on follow up CT-Head. Do not crush, chew, or split. 0853 (Given - Provider: Trinity Painter RN) 0844 (Given - Provider: Jenni Bonilla RN) 0907 (Given - Provider: Jenni Bonilla RN) aspirin suppository 300 mg(Linked Group 1) 300 mg, Rectal, Daily, First dose on Mon05/10/25 at 1910, Do NOT administer if bleed present on follow up CT-Head. Use suppository if NPO or failed swallow screen. 0853 (See Alternative - Provider: Trinity Painter RN) 0844 (See Alternative - Provider: Jenni Bonilla RN) 0907 (See Alternative - Provider: Jenni Bonilla RN) atorvastatin (Lipitor) tablet 40 mg 40 mg, Oral, Nightly, First dose on Mon05/10/25 at 2100 2156 (Given - Provider: Ivonne Redd RN) 2028 (Given - Provider: Nely Campbell RN) enoxaparin (Lovenox) syringe 40 mg 40 mg, SubCUTAneous, Every 24 hours scheduled (Daily), First dose on Mon05/10/25 at 1910, Indication of Use: Prophylaxis-DVT/PE, Indications: Prophylaxis of Venous Thromboembolism 0854 (Given - Provider: Trinity Painter RN) 0844 (Given - Provider: Jenni Bonilla RN) 0906 (Given - Provider: Jenni Bonilla RN) folic acid (Folvite) tablet 1 mg 1 mg, Oral, Daily, First dose on 05/11/25 at 1130 0853 (Given - Provider: Trinity Painter RN) 0844 (Given - Provider: Jenni Bonilla, ALFREDO) 0907 (Given - Provider: Jenni Bonilla RN) melatonin tablet 5 mg 5 mg, Oral, Nightly, First dose on 05/10/25 at 2100 2156 (Given - Provider: Ivonne Redd RN) 2028 (Given - Provider: Nely Campbell RN) phenytoin ER (Dilantin) capsule 200 mg 200 mg, Oral, 2 times daily, First dose on 05/10/25 at 2100, Hold enteral nutrition at least 1 hour before and 2 hours after dose. Monitor drug levels. HAZARDOUS - use appropriate precautions for handling and disposal. Do not crush, split, or open. 0900 (Dose Auto Held - Provider: Nemo Bunn MD)2100 (Dose Auto Held - Provider: Nemo Bunn MD) 0900 (Dose Auto Held)1011 (Unheld by provider - Provider: Heron Glover MD)2028 (Given - Provider: Nely Campbell RN) 0908 (Given - Provider: Jenni Bonilla RN) potassium chloride (Klor-Con) packet 40 mEq (COMPLETED) 40 mEq, Oral, Once, On Mon05/16/25 at 0430, For 1 dose, Dissolve each packet in 4 ounces of water = 5 mEq per 1 oz fluid., Indications: Hypokalemia 0441 (Given - Provider: Nely Campbell RN) potassium chloride CR (Klor-Con M10) ER tablet 40 mEq (COMPLETED) 40 mEq, Oral, Once, On Mon05/14/25 at 1000, For 1 dose, Best given with food and plenty of water to minimize gastric irritation. Do not crush or chew. 1058 (Given - Provider: Trinity Painter RN) sertraline (Zoloft) tablet 100 mg 100 mg, Oral, Daily, First dose on 05/11/25 at 0900 0853 (Given - Provider: Trinity Painter RN) 0844 (Given - Provider: Jenni Bonilla RN) 0907 (Given - Provider: Jenni Bonilla RN) sodium chloride 0.9% (NS) flush 5-40 mL 5-40 mL, IntraVENous, Every 12 hours, First dose on 05/10/25 at 1910, For Line Patency: Peripheral IV = 5 mL; Midline or Central Line = 10 mL/lumen. If following IV push medication, administer flush at same rate as the IV push. Flush volume is determined by type of infusion therapy being given. For non-viscous solutions use: Peripheral IV = 5 mL Midline or Central Line = 10 mL/lumen For viscous solutions (i.e. 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 0858 (Given - Provider: Trinity Painter RN)153 (Given - Provider: Trista Venegas, ALFREDO)215 (Given - Provider: Ivonne Redd RN) 0844 (Given - Provider: Jenni Bonilla RN)1443 (Given - Provider: Jenni Bonilla, ALFREDO)202 (Given - Provider: Nely Campbell RN) 0907 (Given - Provider: Jenni Bonilla, ALFREDO)1520 (Given - Provider: Jenni Bonilla RN) PRN Medication Order 05/14/2025 05/15/2025 2025 acetaminophen (Tylenol) suppository 650 mg(Linked Group 2) 650 mg, Rectal, Every 6 hours PRN, fever, For temp greater than 100.4 F (38 C), Starting on 05/10/25 at 1905, Administer if oral route cannot be used. Maximum dose of acetaminophen is 4000 mg from all sources in 24 hours. acetaminophen (Tylenol) tablet 650 mg(Linked Group 2) 650 mg, Oral, Every 6 hours PRN, mild pain (1-3), fever, For temp greater than 100.4 F (38 C), Starting on 05/10/25 at 1905, Maximum dose of acetaminophen is 4000 mg from all sources in 24 hours. bisacodyl (Dulcolax) suppository 10 mg 10 mg, Rectal, Daily PRN, constipation, Starting on 05/10/25 at 1905, 2nd line for treatment of constipation - give scheduled (in addition to 1st line agent) if no bowel movement in past 48 hours labetalol (Normodyne,Trandate) injection 10 mg 10 mg, IntraVENous, Every 10 min PRN, high blood pressure, Starting on 05/10/25 at 1905, Administer 10 mg IV every 10 minutes if SBP is 220 mmHg or greater OR DBP is 120 mmHg or greater. Notify provider if SBP is 220 mmHg or greater OR DBP is 120 mmHg or greater after 3 consecutive doses. naloxone (Narcan) injection 0.4 mg 0.4 mg, IntraVENous, Every 5 min PRN, opioid reversal, respiratory depression, Starting on 05/12/25 at 1348, +++ For RR <10, pinpoint pupils, over sedation for opioid reversal - MUST notify manager of production provider immediately after first dose, may give IM or SQ if no IV access +++ ondansetron (Zofran) injection 4 mg(Linked Group 3) 4 mg, IntraVENous, Every 6 hours PRN, nausea, vomiting, Starting on 05/10/25 at 1905, 1st Line. Give IV if patient is unable to take orally. If inadequate response within 60 minutes, proceed to next-line agent or contact provider if no further options ordered. ondansetron ODT (Zofran-ODT) disintegrating tablet 4 mg(Linked Group 3) 4 mg, Oral, Every 8 hours PRN, nausea, vomiting, Starting on 05/10/25 at 1905, 1st Line. If inadequate response within 60 minutes, proceed to next-line agent or contact provider if no further options ordered. Patient should allow tablet to dissolve on tongue. Do not remove from blister pack until just before administering. oxyCODONE (Roxicodone) immediate release tablet 5 mg 5 mg, Oral, Every 6 hours PRN, severe pain (7-10), Starting on 05/10/25 at 1905 polyethylene glycol (PEG) 3350 (Miralax) packet 17 g 17 g, Oral, Daily PRN, constipation, Starting on 05/10/25 at 1905, 1st line for treatment of constipation - give scheduled if no bowel movement in past 24 hours. sodium chloride 0.9 % infusion 5-250 mL/hr, IntraVENous, PRN, if patient receiving piggyback infusions and maintenance fluids are not ordered OR KVO fluids to protect IV site / prevent frequent line interruptions / long duration, Starting on Mon05/10/25 at 1905, For piggyback infusion, administer at same rate as piggyback for a total of 25 mL. Enter 25 mL into dose field and piggyback rate into rate field of order. If piggyback is infusing at a rate less than 100 mL/hr, enter 25 mL into dose field and 100 mL/hr into rate field of order. For KVO fluids, enter rate of 20 mL/hr or less into rate field of order. sodium chloride 0.9% (NS) flush 5-40 mL 5-40 mL, IntraVENous, PRN, line care, After every IV line use, Starting on 05/10/25 at 1905, For Line Patency: Peripheral IV = 5 mL; Midline or Central Line = 10 mL/lumen. If following IV push medication, administer flush at same rate as the IV push. Flush volume is determined by type of infusion therapy being given. For non-viscous solutions use: Peripheral IV = 5 mL Midline or Central Line = 10 mL/lumen For viscous solutions (i.e. blood components, parenteralnutrition, contrast media, or after obtaining blood sample) use: Peripheral IV = 10 mL Midline or Central Line = 20 mL/lumen stomahesive in petrolatum (ET Mix) Topical, PRN, sacrum, Starting on Mon05/13/25 at 1503, Sacrum: Stage 1 pressure injury -Cleanse with soap and water, pat dry, apply ET mix and leave [place] TID and PRN Linked Groups Order Group 1: aspirin EC tablet 81 mgJump to med 81 mg, Oral, Daily, First dose on 05/10/25 at 1910, Do NOT administer if bleed present on follow up CT-Head. Do not crush, chew, or split. Or aspirin suppository 300 mgJump to med 300 mg, Rectal, Daily, First dose on 05/10/25 at 1910, Do NOT administer if bleed present on follow up CT-Head. Use suppository if NPO or failed swallow screen. Group 2: acetaminophen (Tylenol) tablet 650 mgJump to med 650 mg, Oral, Every 6 hours PRN, mild pain (1-3), fever, For temp greater than 100.4 F (38 C), Starting on 05/10/25 at 1905, Maximum dose of acetaminophen is 4000 mg from all sources in 24 hours. Or acetaminophen (Tylenol) suppository 650 mgJump to med 650 mg, Rectal, Every 6 hours PRN, fever, For temp greater than 100.4 F (38 C), Starting on 05/10/25 at 1905, Administer if oral route cannot be used. Maximum dose of acetaminophen is 4000 mg from all sources in 24 hours. Group 3: ondansetron ODT (Zofran-ODT) disintegrating tablet 4 mgJump to med 4 mg, Oral, Every 8 hours PRN, nausea, vomiting, Starting on 05/10/25 at 1905, 1st Line. If inadequate response within 60 minutes, proceed to next-line agent or contact provider if no further options ordered. Patient should allow tablet to dissolve on tongue. Do not remove from blister pack until just before administering. Or ondansetron (Zofran) injection 4 mgJump to med 4 mg, IntraVENous, Every 6 hours PRN, nausea, vomiting, Starting on 05/10/25 at 1905, 1st Line. Give IV if patient is unable to take orally. If inadequate response within 60 minutes, proceed to next-line agent or contact provider if no further options ordered. FOR RECORDS PERTAINING TO PATIENTS WHO ARE [...] BE BASED ON THE PRIMARY CLINICAL RECORDS. [facility]. provides no warranty or guarantee of the accuracy or completeness of information in this document.
--- OUTSIDE RECORDS SUMMARY | 2025-05-19 04:25 | XMS RPT_ITS | CCD ---
Author Organization [facility] Care Team Providers Care Corporate Sales Trainer Name Role Phone Destiny Jean Baptiste Primary Care Provider Christian Harrison Primary Care Provider Christy EXPERIMENTAL MECHANIC ELECTRICAL, Christian Elliott Primary Care Provider [phone] Christy EXPERIMENTAL MECHANIC [employer]LECTR[employer], Christian Elliott Primary Care Provider [phone] Enedina Choi Attending Unavail able Blancaa Enedina BRANHAM Referring Unavail able Enedina Choi Attending Unavail able Anni BRANHAM, Enedina Primary Care Unavail able Sebas Guerra Attending Unavailable JANNETH CENTENO Consulting Unavailable CHRISTY, CHRISTIAN Primary Care Unavailable CHAZ SMYTH Attending Unavailable MILLER LEE Admitting Unavailable BRENDON SOMMERS Consulting Unavailable DESTINY VELASQUEZ Consulting Unavailable LUMA GASTELUM Consulting Unavailable CHRISTY, CHRISTIAN Primary Care [...] CHRIS MOLINA Referring Unavailable CHRISTY, CHRISTIAN Primary [facility] Unavailable KRUPA CID Referring Unavailable KRUPA CID Attending Unavailable CHRISTIAN HARRISON Primary Care Unavailable BRENDON SOMMERS Referring Unavailable CHRISTIAN HARRISON Primary Care Unavailable BRENDON SOMMERS Attending Unavailable Allergies Allergy Classification Reported Allergen(s) Allergy Type Date of Onset Reaction(s) Facility Bee/Wasp/Ant Venom (1 source) bee venom Substance Allergy 8 Anaphylaxis [facility] Lidocaine (1 source) Lidocaine Drug Allergy 8 Shortness of breath [facility] Penicillins (antibiotic) (1 source) Penicillins Drug Allergy 8 Nausea Only [facility] Sulfonamides (antibiotic) (1 source) Sulfonamides (Antibiotic) Drug Allergy 8 Nausea Only [facility] (20 sources) bee venom Propensity to adverse reactions 8 Anaphylaxis [facility] (20 sources) Lidocaine Drug Allergy 8 Shortness of breath [facility] (20 sources) Penicillins Drug Intolerance 8 Nausea Only [facility] (20 sources) Sulfonamides (Antibiotic) Drug Intolerance 8 Nausea Only [facility] (14 sources) Penicillin G Drug Allergy 5 Rash [facility] (14 sources) Simvastatin Allergy to substance 5 Rash [facility] (14 sources) varenicline Drug Allergy 5 Nausea And Vomiting [facility] Medications Current Medications Medication Drug Class(es) [...] every week ergocalciferol (Vitamin D2) 1.25 MG (60333 UT) capsule Take 1 capsule (1.25 mg) by mouth 1 (one) time per week. 05/04/2025 Active Start: 05-04-2025 take 1 capsule by mo uth every week ergocalciferol (Vitamin D2) 1.25 MG (76106 UT) capsule Take 1 capsule (1.25 mg) by mouth 1 (one) time per week. 05/04/2025 Active Start: 05-04-2025 take 1 capsule by mo uth every week ergocalciferol (Vitamin D2) 1.25 MG (33690 UT) capsule Take 1 capsule (1.25 mg) by mouth 1 (one) time per week. 05/04/2025 Active Start: 05-04-2025 take 1 capsule by mo uth every week ergocalciferol (Vitamin D2) 1.25 MG (81697 UT) capsule Take 1 capsule (1.25 mg) by mouth 1 (one) time per week. 05/04/2025 Active Start: 05-04-2025 take 1 capsule by mo uth every week ergocalciferol (Vitamin D2) 1.25 MG (79800 UT) capsule Take 1 capsule (1.25 mg) [...] Prophylaxis docusate sodium 50 mg / sennosides, halfway 8.6 mg oral tablet (2 sources) Start: [...] at 1615, For 1 dose, Recovery (only) [id number] 0.3 ml EPINEPHrine 1 mg/ml auto-injector (20 [...] in 0.9% sodium chloride 250 mL infusion ([id number]-Bypks) (premix) (10 sources) Start: 04-24-2025 End: 04-25-2025 [...] mg before bedtime. Active polyethylene glycol 3350 47929 mg powder for oral solution (4 sources) [...] 04-30-2025 Chronic Other aftercare (1 source) Other long term care social worker (current) drug therapy; Translations: [Other jail (current) drug therapy] Onset: 05-13-2025 Episodic Other [...] Results Test Name Value Interpretation Reference Range [facility] [id number] 2025 [id number] Normal [facility] [id number] Normal [facility] CBC W Auto Differential pane l (Bld)Ordered By: Claudia Benavidze on 2025 Basophils (Bld) [#/Vol] 0 10*3/uL 0.0 - 0.2 10*3/uL [facility] Basophils/100 WBC (Bld) 0.2 % 0.0 - 2.0 % [facility] Eosinophils (Bld) [#/Vol] 0.1 10*3/uL 0.0 - 0.5 10*3/uL [facility] Eosinophils/100 WBC (Bld) 1.1 % 0.0 - 6.0 % [facility] Erythrocyte distribution width (RBC) [Ratio] 16.2 % High 11.5 - 15.0 % [facility] Hematocrit (Bld) [Volume fraction] 33.2 % Low 35.0 - 47.0 % [facility] Hemoglobin (Bld) [Mass/Vol] 11.2 g/dL Low 11.7 - 16.0 g/dL [facility] Immature granulocytes (Bld) [#/Vol] 0 10*3/uL NINF - 0.1 10*3/uL [facility] Immature granulocytes/100 WBC (Bld) 0.6 % 0.0 - 2.0 % [facility] Interpretation and review of laboratory results Abnormal [facility] Lymphocytes (Bld) [#/Vol] 1.1 10*3/uL 1.0 - 4.3 10*3/uL [facility] Lymphocytes/100 WBC (Bld) 20.7 % 15.0 - 45.0 % [facility] MCH (RBC) [Entitic mass] 34.7 pg High 26.0 - 34.0 pg [facility] MCHC (RBC) [Mass/Vol] 33.7 % 30.5 - 36.0 % [facility] MCV (RBC) [Entitic vol] 102.8 fL High 77.0 - 99.0 fL [facility] Monocytes (Bld) [#/Vol] 0.7 10*3/uL 0.0 - 0.9 10*3/uL [facility] Monocytes/100 WBC (Bld) 13.4 % High 5.0 - 13.0 % [facility] Neutrophils (Bld) [#/Vol] 3.3 10*3/uL 1.8 - 7.5 10*3/uL [facility] Neutrophils/100 WBC (Bld) 64 % 38.0 - 82.0 % [facility] Nucleated RBC/100 WBC (Bld) [Ratio] 0 % [facility] Platelet mean volume (Bld) [Entitic vol] 9.6 fL 9.0 - 12.7 fL [facility] Platelets (Bld) [#/Vol] 230 10*3/uL 140 - 440 10*3/uL [facility] RBC (Bld) [#/Vol] 3.23 10*6/uL Low 3.80 - 5.2 0 10*6/uL [facility] WBC (Bld) [#/Vol] 5.2 10*3/uL 3.6 - 10.7 10*3/uL [facility] CBC WITH AUTO DIFFERENTIALon 2025 Basophils (Bld) [#/Vol] 0.0 10*3/uL Normal 0.0-0.2 [facility] Comment on above: Performed By: #### L [id number] ####Hose Handler: ORLIN DOMÍNGUEZ ([id number])[facility] [place] (SBHLAB)[address] Basophils/100 WBC (Bld) 0.2 % Normal 0.0-2.0 [facility] Comment on above: Performed By: #### L [id number] ####Hose Handler: ORLIN DOMÍNGUEZ ([id number])[facility] [place] (SBHLAB)[address] Eosinophils (Bld) [#/Vol] 0.1 10*3/uL Normal 0.0-0.5 [facility] Comment on above: Performed By: #### L [id number] ####Hose Handler: ORLIN DOMÍNGUEZ ([id number])[facility] [place] (SBHLAB)[address] Eosinophils/100 WBC (Bld) 1.1 % Normal 0.0-6.0 [facility] Comment on above: Performed By: #### L [id number] ####Hose Handler: ORLIN DOMÍNGUEZ ([id number])[facility] (SBHLAB)[address] [place] [address] Erythrocyte distribution width (RBC) [Ratio] 16.2 % High 11.5-15.0 [facility] Comment on above: Performed By: #### L [id number] ####Hose Handler: ORLIN DOMÍNGUEZ ([id number])[facility] [place] (SBHLAB)[address] [place] [address] Hematocrit (Bld) [Volume fraction] 33.2 % Low 35.0-47.0 [facility] Comment on above: Performed By: #### L [id number] ####Hose Handler: ORLIN DOMÍNGUEZ ([id number])[facility] [place] (SBHLAB)[address] [place] [address] Hemoglobin (Bld) [Mass/Vol] 11.2 g/dL Low 11.7-16.0 [facility] Comment on above: Performed By: #### L [id number] ####Hose Handler: ORLIN DOMÍNGUEZ ([id number])[facility] [place] (SBHLAB)[address] IMMATURE GRANS % 0.6 % Normal 0.0-2.0 [facility] Comment on above: Performed By: #### L [id number] ####Hose Handler: ORLIN DOMÍNGUEZ ([id number])[facility] (SBHL[facility])[address] IMMATURE GRANS ABSOLUTE 0.0 10*3/uL Normal <0.1 [facility] Comment on above: Performed By: #### L [id number] ####Hose Handler: ORLIN DOMÍNGUEZ ([id number])[facility] ([facility])[address] Lymphocytes (Bld) [#/Vol] 1.1 10*3/uL Normal 1.0-4.3 [facility] Comment on above: Performed By: #### L [id number] ####Hose Handler: ORLIN DOMÍNGUEZ ([id number])[facility] ([facility])[address] Lymphocytes/100 WBC (Bld) 20.7 % Normal 15.0-45.0 [facility] Comment on above: Performed By: #### L [id number] ####Hose Handler: ORLIN DOMÍNGUEZ ([id number])[facility] ([facility])[address] MCH (RBC) [Entitic mass] 34.7 pg High 26.0-34.0 [facility] Comment on above: Performed By: #### L [id number] ####Hose Handler: ORLIN DOMÍNGUEZ ([id number])[facility] ([facility])[address] MCHC 33.7 % Normal 30.5-36.0 [facility] Comment on above: Performed By: #### L [id number] ####Hose Handler: ORLIN DOMÍNGUEZ ([id number])[facility] ([facility])[address] MCV (RBC) [Entitic vol] 102.8 fL High 77.0-99.0 [facility] Comment on above: Performed By: #### L [id number] ####Hose Handler: ORLIN DOMÍNGUEZ ([id number])[facility] [place] (SBHLAB)[address] Monocytes (Bld) [#/Vol] 0.7 10*3/uL Normal 0.0-0.9 [facility] Comment on above: Performed By: #### L [id number] ####Hose Handler: ORLIN DOMÍNGUEZ ([id number])[facility] [place] (SBHLAB)[address] Monocytes/100 WBC (Bld) 13.4 % High 5.0-13.0 [facility] Comment on above: Performed By: #### L [id number] ####Hose Handler: ORLIN DOMÍNGUEZ ([id number])[facility] [place] (SB[facility]AB)[address] NEUTROPHILS ABSOLUTE 3.3 10*3/uL Normal 1.8-7.5 [facility] Comment on above: Performed By: #### L [id number] ####Hose Handler: ORLIN DOMÍNGUEZ ([id number])[facility] [place] (SB[facility])[address] Neutrophils/100 WBC (Bld) 64.0 % Normal 38.0-82.0 [facility] Comment on above: Performed By: #### L [id number] ####Hose Handler: ORLIN DOMÍNGUEZ ([id number])[facility] [place] (SB[facility])[address] NRBC 0.0 /100 WBCs Normal 0.0-2.0 [facility] Comment on above: Performed By: #### L [id number] ####Hose Handler: ORLIN DOMÍNGUEZ ([id number])[facility] [place] (SB[facility])[address] Platelet mean volume (Bld) [Entitic vol] 9.6 fL Normal 9.0-12.7 [facility] Comment on above: Performed By: #### L [id number] ####Hose Handler: ORLIN DOMÍNGUEZ ([id number])[facility] [place] (SB[facility])[address] Platelets (Bld) [#/Vol] 230 10*3/uL Normal 140-440 [facility] Comment on above: Performed By: #### L [id number] ####Hose Handler: ORLIN DOMÍNGUEZ ([id number])[facility] ([facility])[address] RBC (Bld) [#/Vol] 3.23 10*6/uL Low 3.80-5.20 [facility] Comment on above: Performed By: #### L [id number] ####Hose Handler: ORLIN DOMÍNGUEZ ([id number])[facility] (SB[facility])[address] WBC (Bld) [#/Vol] 5.2 10*3/uL Normal 3.6-10.7 [facility] Comment on above: Performed By: #### L [id number] ####Hose Handler: ORLIN DOMÍNGUEZ ([id number])[facility] (SBHLAB)[address] [place] [address] COMPREHENSIVE METABOLIC PANE Jay 2025 Albumin [Mass/Vol] 2.7 g/dL Low 3.4-4.8 [facility] Comment on above: Performed By: #### L AB103, LAB17, LAB31 ####Hose Handler: ORLIN DOMÍNGUEZ ([id number])[facility] ([facility])[address] ALP [Catalytic activity/Vol] 176 U/L High 40-150 [facility] Comment on above: Performed By: #### L AB103, LAB17, LAB31 ####Hose Handler: ORLIN DOMÍNGUEZ ([id number])[facility] [place] (SB[facility]AB)[address] ALT [Catalytic activity/Vol] 11 U/L Normal <30 [facility] Comment on above: Performed By: #### L AB103, LAB17, LAB31 ####Hose Handler: ORLIN DOMÍNGUEZ ([id number])[facility] [place] (SB[facility])[address] Anion gap [Moles/Vol] 7 mmol/L Normal 3-13 [facility] Comment on above: Performed By: #### L AB103, LAB17, LAB31 ####Hose Handler: ORLIN DOMÍNGUEZ ([id number])[facility] [place] (SBHLAB)[address] AST [Catalytic activity/Vol] 28 U/L Normal <34 [facility] Comment on above: Performed By: #### [place] LIRIANO, LAB17, LAB31 ####Hose Handler: ORLIN DOMÍNGUEZ ([id number])[facility] [place] (SBHLAB)[address] Bilirubin [Mass/Vol] 0.9 mg/dL Normal <1.2 [facility] Comment on above: Performed By: #### [place] AB103, LAB17, LAB31 ####Hose Handler: ORLIN DOMÍNGUEZ ([id number])[facility] (SBHLAB)[address] Calcium [Mass/Vol] 9.2 mg/dL Normal 8.8-10.0 [facility] Comment on above: Performed By: #### L AB103, LAB17, LAB31 ####Hose Handler: ORLIN DOMÍNGUEZ ([id number])[facility] [place] (SBHLAB)[address] [place] [address] [place] Chloride [Moles/Vol] 103 mmol/L Normal 98-107 [facility] Comment on above: Performed By: #### [place] AB103, LAB17, LAB31 ####Hose Handler: ORLIN DOMÍNGUEZ ([id number])[facility] [place] (SB[facility])[address] CO2 [Moles/Vol] 24 mmol/L Normal 23-31 [facility] Comment on above: Performed By: #### [place] AB103, LAB17, LAB31 ####Hose Handler: ORLIN DOMÍNGUEZ ([id number])[facility]ITAL[facility] (SBHLAB)[address] Creatinine [Mass/Vol] 0.43 mg/dL Low 0.57-1.11 [facility] Comment on above: Performed By: #### [place] AB103, LAB17, LAB31 ####Hose Handler: ORLIN DOMÍNGUEZ ([id number])[facility]ILLCR[facility]POINT [facility]N (SBHLAB)[address] GLOMERULAR FILTRATION RATE ML/MIN/1.73 SQ M.PREDICTED >90.0 Normal >60.0 [facility] Comment on above: Result Comment: Calc ulation based on the Chronic Kidney Disease Epidemiology Collaboration (CKD-EPI) equation refit without adjustment for race Performed By: #### L AB103, LAB17, LAB31 ####Hose Handler: ORLIN DOMÍNGUEZ ([id number])[facility] [place] (SBHLAB)[address] Glucose [Mass/Vol] 98 mg/dL Normal 82-115 [facility] Comment on above: Performed By: #### L AB103, LAB17, LAB31 ####Hose Handler: ORLIN DOMÍNGUEZ ([id number])[facility] (SBHLAB)[address] Potassium [Moles/Vol] 3.4 mmol/L Low 3.5-5.1 [facility] Comment on above: Result Comment: [facility] potassium values may be up to 0.5 mmol/L lower than serum values. Performed By: #### L AB103, LAB17, LAB31 ####Hose Handler: ORLIN DOMÍNGUEZ ([id number])[facility] (SBHLAB)[address] Protein [Mass/Vol] 5.5 g/dL Low 6.4-8.3 [facility] Comment on above: Performed By: #### L AB103, LAB17, LAB31 ####Hose Handler: ORLIN DOMÍNGUEZ ([id number])[facility] [place] (SB[facility])[address] Sodium [Moles/Vol] 134 mmol/L Low 136-145 [facility] Comment on above: Performed By: #### L AB103, LAB17, LAB31 ####Hose Handler: ORLIN DOMÍNGUEZ ([id number])[facility] [place] ([facility])[address] Urea nitrogen [Mass/Vol] 10 mg/dL Normal 9-23 [facility] Comment on above: Performed By: #### L AB103, LAB17, LAB31 ####Hose Handler: ORLIN DOMÍNGUEZ ([id number])[facility] [place] ([facility])[address] Comprehensive metabolic 1998 panelon 2025 Albumin [Mass/Vol] 2.7 g/dL Low 3.4 - 4.8 g/dL [facility] ALP [Catalytic activity/Vol] 176 U/L High 40 - 150 U/L [facility] ALT [Catalytic activity/Vol] 11 U/L NINF - 30 U/L [facility] Anion gap [Moles/Vol] 7 mmol/L 3 - 13 mmol/L [facility] AST [Catalytic activity/Vol] 28 U/L NINF - 34 U/L [facility] Bilirubin [Mass/Vol] 0.9 mg/dL NINF - 1.2 mg/dL [facility] Calcium [Mass/Vol] 9.2 mg/dL 8.8 - 10. 0 mg/dL [facility] Chloride [Moles/Vol] 103 mmol/L 98 - 10 7 mmol/L [facility] CO2 [Moles/Vol] 24 mmol/L 23 - 31 mmol/L [facility] Creatinine [Mass/Vol] 0.43 mg/dL Low 0.57 - 1.11 mg/dL [facility] GFR/1.73 sq M.predicted (S/P/Bld) [Vol rate/Area] - PINF [facility] Comment on above: Calculation based on the Chronic Kidney Disease Epidemiology Collaboration (CKD-EPI) equation refit without adjustment for race Glucose [Mass/Vol] 98 mg/dL 82 - 115 mg/dL [facility] Potassium [Moles/Vol] 3.4 mmol/L Low 3.5 - 5.1 mmol/L [facility] Comment on above: Plasma potassium dede ues may be up to 0.5 mmol/L lower than serum values. Protein [Mass/Vol] 5.5 g/dL Low 6.4 - 8.3 g/dL [facility] Sodium [Moles/Vol] 134 mmol/L Low 136 - 145 mmol/L [facility] Urea nitrogen [Mass/Vol] 10 mg/dL 9 - 23 mg/dL [facility] Consulton 2025 Consult Normal [facility] - Chemistry and C hemistry - challengeon 2025 Magnesium [Mass/Vol] 1.8 mg/dL 1.6 - 2 .6 mg/dL [facility] Glucose [Mass/Vol] 109 mg/dL High 70 - 100 mg/dL [facility] - Drug toxicology on 2025 Phenytoin [Mass/Vol] 7.6 ug/mL Low 10.0 - 20.0 ug/mL [facility] MAGNESIUMon 2025 Magnesium [Mass/Vol] 1.8 mg/dL Normal 1.6-2.6 [facility] Comment on above: Result Comment: CHERELLE Zepeda COMMENTS:Higher values can be expected in females during menses. Performed By: #### L AB103, LAB17, LAB31 ####Hose Handler: ORLIN DOMÍNGUEZ ([id number])[facility] ([facility])[address] [place] [address] Magnesium [Mass/Vol]on 05-16 Interpretation and review of laboratory results Normal [facility] Higher values can be expected in females during menses. [facility] No Panel Informationon 05-16 Interpretation and review of laboratory results Abnormal [facility] Toxicity seen at concentrations >20.0 ug/mL [facility] Interpretation and review of laboratory results Abnormal [facility] Performed by: [facility], [address] [address] CLIA ID: [id number] [facility] Nursing Noteon 2025 Nursing Note Message sent to Dr. Heron Glover regarding intermediate request to send prescription with patient. Report called to [facility]. Normal [facility] PHENYTOIN TOTALon 2025 PHENYTOIN, TOTAL 7.6 ug/mL Low 10.0-20.0 [facility] Comment on above: Result Comment: ORDE R COMMENTS:Toxicity seen at concentrations >20.0 ug/mL Performed By: #### L AB103, LAB17, LAB31 ####Hose Handler: ORLIN DOMÍNGUEZ ([id number])[facility] (SB[facility])[address] Progress Noteon 2025 Progress Note Normal [facility] Progress Note Nutrition- patient i s being discharged. She was consuming strawberry Glucerna shake(220 ary, 10 gm pro/serving). Consuming 50-75% of meals and ONS. Continue regular diet Normal [facility] Progress Note Normal [facility] [id number] 05-15-2025 [id number] Normal [facility] CBC W Auto Differential pane l (Bld)Ordered By: Enma Brar on 05-15-2025 Basophils (Bld) [#/Vol] 0 10*3/uL 0.0 - 0.2 10*3/uL [facility] Basophils/100 WBC (Bld) 0.4 % 0.0 - 2.0 % [facility] Eosinophils (Bld) [#/Vol] 0.1 10*3/uL 0.0 - 0.5 10*3/uL [facility] Eosinophils/100 WBC (Bld) 1.4 % 0.0 - 6.0 % [facility] Erythrocyte distribution width (RBC) [Ratio] 16.9 % High 11.5 - 15.0 % [facility] Hematocrit (Bld) [Volume fraction] 33.1 % Low 35.0 - 47.0 % [facility] Hemoglobin (Bld) [Mass/Vol] 10 g/dL Low 11.7 - 16.0 g/dL [facility] Immature granulocytes (Bld) [#/Vol] 0 10*3/uL NINF - 0.1 10*3/uL [facility] Immature granulocytes/100 WBC (Bld) 0.8 % 0.0 - 2.0 % [facility] Interpretation and review of laboratory results Abnormal [facility] Lymphocytes (Bld) [#/Vol] 1 10*3/uL 1.0 - 4.3 10*3/uL [facility] Lymphocytes/100 WBC (Bld) 20.3 % 15.0 - 45.0 % [facility] MCH (RBC) [Entitic mass] 34.7 pg High 26.0 - 34.0 pg [facility] MCHC (RBC) [Mass/Vol] 30.2 % Low 30.5 - 36.0 % [facility] MCV (RBC) [Entitic vol] 114.9 fL High 77.0 - 99.0 fL [facility] Monocytes (Bld) [#/Vol] 0.6 10*3/uL 0.0 - 0.9 10*3/uL [facility] Monocytes/100 WBC (Bld) 12.7 % 5.0 - 13.0 % [facility] Neutrophils (Bld) [#/Vol] 3.2 10*3/uL 1.8 - 7.5 10*3/uL [facility] Neutrophils/100 WBC (Bld) 64.4 % 38.0 - 82.0 % [facility] Nucleated RBC/100 WBC (Bld) [Ratio] 0 % [facility] Platelet mean volume (Bld) [Entitic vol] 9.3 fL 9.0 - 12.7 fL [facility] Platelets (Bld) [#/Vol] 172 10*3/uL 140 - 440 10*3/uL [facility] RBC (Bld) [#/Vol] 2.88 10*6/uL Low 3.80 - 5.2 0 10*6/uL [facility] WBC (Bld) [#/Vol] 5 10*3/uL 3.6 - 10.7 10*3/uL [facility] CBC WITH AUTO DIFFERENTIALon 05-15-2025 Basophils (Bld) [#/Vol] 0.0 10*3/uL Normal 0.0-0.2 [facility] Comment on above: Performed By: #### L [id number] ####Hose Handler: ORLIN GUILLORYANTOINETTE ([id number])[facility] [place] (SBHLAB)[address] Basophils/100 WBC (Bld) 0.4 % Normal 0.0-2.0 [facility] Comment on above: Performed By: #### L [id number] ####Hose Handler: ORLIN DOMÍNGUEZ ([id number])[facility] [place] (SBHLAB)[address] Eosinophils (Bld) [#/Vol] 0.1 10*3/uL Normal 0.0-0.5 [facility] Comment on above: Performed By: #### L [id number] ####Hose Handler: ORLIN DOMÍNGUEZ ([id number])[facility] [place] (SBHLAB)[address] Eosinophils/100 WBC (Bld) 1.4 % Normal 0.0-6.0 [facility] Comment on above: Performed By: #### L [id number] ####Hose Handler: ORLIN GUILLORYANTOINETTE ([id number])[facility] [place] (SBHLAB)[address] Erythrocyte distribution width (RBC) [Ratio] 16.9 % High 11.5-15.0 [facility] Comment on above: Performed By: #### L [id number] ####Hose Handler: ORLIN DOMÍNGUEZ ([id number])[facility] [place] (SB[facility])[address] Hematocrit (Bld) [Volume fraction] 33.1 % Low 35.0-47.0 [facility] Comment on above: Performed By: #### L [id number] ####Hose Handler: ORLIN DOMÍNGUEZ ([id number])[facility] [place] (SB[facility])[address] Hemoglobin (Bld) [Mass/Vol] 10.0 g/dL Low 11.7-16.0 [facility] Comment on above: Performed By: #### L [id number] ####Hose Handler: ORLIN DOMÍNGUEZ ([id number])[facility] (SB[facility])[address] IMMATURE GRANS % 0.8 % Normal 0.0-2.0 [facility] Comment on above: Performed By: #### L [id number] ####Hose Handler: ORLIN DOMÍNGUEZ ([id number])[facility] IMMATURE GRANS ABSOLUTE 0.0 10*3/uL Normal <0.1 [facility] Comment on above: Performed By: #### L [id number] ####Hose Handler: ORLIN DOMÍNGUEZ ([id number])[facility])[address] Lymphocytes (Bld) [#/Vol] 1.0 10*3/uL Normal 1.0-4.3 [facility] Comment on above: Performed By: #### L [id number] ####Hose Handler: ORLIN DOMÍNGUEZ ([id number])[facility] ([facility])[address] [place] [address] Lymphocytes/100 WBC (Bld) 20.3 % Normal 15.0-45.0 [facility] Comment on above: Performed By: #### L [id number] ####Hose Handler: ORLIN DOMÍNGUEZ ([id number])[facility] ([facility])[address] MCH (RBC) [Entitic mass] 34.7 pg High 26.0-34.0 [facility] Comment on above: Performed By: #### L [id number] ####Hose Handler: ORLIN DOMÍNGUEZ ([id number])[facility])[address] MCHC 30.2 % Low 30.5-36.0 [facility] Comment on above: Performed By: #### L [id number] ####Hose Handler: ORLIN GUILLORYANTOINETTE ([id number])[facility] ([facility])[address] MCV (RBC) [Entitic vol] 114.9 fL High 77.0-99.0 [facility] Comment on above: Performed By: #### L [id number] ####Hose Handler: ORLIN GUILLORYANTOINETTE ([id number])[facility] ([facility])[address] Monocytes (Bld) [#/Vol] 0.6 10*3/uL Normal 0.0-0.9 [facility] Comment on above: Performed By: #### L [id number] ####Hose Handler: ORLIN DOMÍNGUEZ ([id number])[facility] ([facility])[address] Monocytes/100 WBC (Bld) 12.7 % Normal 5.0-13.0 [facility] Comment on above: Performed By: #### L [id number] ####Hose Handler: ORLIN DOMÍNGUEZ ([id number])[facility] ([facility])[address] [place] [address] NEUTROPHILS ABSOLUTE 3.2 10*3/uL Normal 1.8-7.5 [facility] Comment on above: Performed By: #### L [id number] ####Hose Handler: ORLIN DOMÍNGUEZ ([id number])[facility] [place] ([facility])[address] Neutrophils/100 WBC (Bld) 64.4 % Normal 38.0-82.0 [facility] Comment on above: Performed By: #### L [id number] ####Hose Handler: ORLIN DOMÍNGUEZ ([id number])[facility] [place] ([facility])[address] NRBC 0.0 /100 WBCs Normal 0.0-2.0 [facility] Comment on above: Performed By: #### L [id number] ####Hose Handler: ORLIN DOMÍNGUEZ ([id number])[facility] [place] ([facility])[address] Platelet mean volume (Bld) [Entitic vol] 9.3 fL Normal 9.0-12.7 [facility] Comment on above: Performed By: #### L [id number] ####Hose Handler: ORLIN DOMÍNGUEZ ([id number])[facility] [place] ([facility])[address] Platelets (Bld) [#/Vol] 172 10*3/uL Normal 140-440 [facility] Comment on above: Performed By: #### L [id number] ####Hose Handler: ORLIN DOMÍNGUEZ ([id number])[facility] [place] ([facility])[address] RBC (Bld) [#/Vol] 2.88 10*6/uL Low 3.80-5.20 [facility] Comment on above: Performed By: #### L [id number] ####Hose Handler: ORLIN DOMÍNGUEZ ([id number])[facility] [place] ([facility])[address] WBC (Bld) [#/Vol] 5.0 10*3/uL Normal 3.6-10.7 [facility] Comment on above: Performed By: #### L [id number] ####Hose Handler: ORLIN DOMÍNGUEZ ([id number])[facility] [place] ([facility])[address] COMPREHENSIVE METABOLIC PANE Jay 05-15-2025 Albumin [Mass/Vol] 2.6 g/dL Low 3.4-4.8 [facility] Comment on above: Performed By: #### L AB31, LAB17 ####Hose Handler: ORLIN DOMÍNGUEZ ([id number])[facility] [place] ([facility])[address] ALP [Catalytic activity/Vol] 161 U/L High 40-150 [facility] Comment on above: Performed By: #### L AB31, LAB17 ####Hose Handler: ORLIN DOMÍNGUEZ ([id number])[facility] [place] ([facility])[address] ALT [Catalytic activity/Vol] 7 U/L Normal <30 [facility] Comment on above: Performed By: #### L AB31, LAB17 ####Hose Handler: ORLIN DOMÍNGUEZ ([id number])[facility] [place] ([facility])[address] Anion gap [Moles/Vol] 9 mmol/L Normal 3-13 [facility] Comment on above: Performed By: #### L AB31, LAB17 ####Hose Handler: ORLIN DOMÍNGUEZ ([id number])[facility] [place] ([facility])[address] AST [Catalytic activity/Vol] 25 U/L Normal <34 [facility] Comment on above: Performed By: #### L AB31, LAB17 ####Hose Handler: ORLIN DOMÍNGUEZ ([id number])[facility] [place] ([facility])[address] Bilirubin [Mass/Vol] 0.9 mg/dL Normal <1.2 [facility] Comment on above: Performed By: #### L AB31, LAB17 ####Hose Handler: ORLIN DOMÍNGUEZ ([id number])[facility] [place] ([facility])[address] Calcium [Mass/Vol] 8.7 mg/dL Low 8.8-10.0 [facility] Comment on above: Performed By: #### L AB31, LAB17 ####Hose Handler: ORLIN DOMÍNGUEZ ([id number])[facility] [place] ([facility])[address] [place] [address] [place] Chloride [Moles/Vol] 105 mmol/L Normal 98-107 [facility] Comment on above: Performed By: #### L AB31, LAB17 ####Hose Handler: ORLIN DOMÍNGUEZ ([id number])[facility])[address] CO2 [Moles/Vol] 20 mmol/L Low 23-31 [facility] Comment on above: Performed By: #### L AB31, LAB17 ####Hose Handler: ORLIN DOMÍNGUEZ ([id number])[facility] ([facility])[address] Creatinine [Mass/Vol] 0.44 mg/dL Low 0.57-1.11 [facility] Comment on above: Performed By: #### L AB31, LAB17 ####Hose Handler: ORLIN DOMÍNGUEZ ([id number])[facility] ([facility])[address] GLOMERULAR FILTRATION RATE ML/MIN/1.73 SQ M.PREDICTED >90.0 Normal >60.0 [facility] Comment on above: Result Comment: Calc ulation based on the Chronic Kidney Disease Epidemiology Collaboration (CKD-EPI) equation refit without adjustment for race Performed By: #### L AB31, LAB17 ####Hose Handler: ORLIN DOMÍNGUEZ ([id number])[facility] ([facility])[address] Glucose [Mass/Vol] 92 mg/dL Normal 82-115 [facility] Comment on above: Performed By: #### L AB31, LAB17 ####Hose Handler: ORLIN DOMÍNGUEZ ([id number])[facility] ([facility])[address] [place] [address] [place] Potassium [Moles/Vol] 3.6 mmol/L Normal 3.5-5.1 [facility] Comment on above: Result Comment: [facility] potassium values may be up to 0.5 mmol/L lower than serum values. Performed By: #### L AB31, LAB17 ####Hose Handler: ORLIN DOMÍNGUEZ ([id number])[facility] [place] ([facility])[address] Protein [Mass/Vol] 5.0 g/dL Low 6.4-8.3 [facility] Comment on above: Performed By: #### L AB31, LAB17 ####Hose Handler: ORLIN DOMÍNGUEZ ([id number])[facility] [place] ([facility])[address] Sodium [Moles/Vol] 134 mmol/L Low 136-145 [facility] Comment on above: Performed By: #### L AB31, LAB17 ####Hose Handler: ORLIN DOMÍNGUEZ ([id number])[facility] [place] ([facility])[address] Urea nitrogen [Mass/Vol] 14 mg/dL Normal 9-23 [facility] Comment on above: Performed By: #### L AB31, LAB17 ####Hose Handler: ORLIN DOMÍNGUEZ ([id number])[facility] [place] ([facility])[address] Comprehensive metabolic 1998 panelon 05-15-2025 Albumin [Mass/Vol] 2.6 g/dL Low 3.4 - 4.8 g/dL [facility] ALP [Catalytic activity/Vol] 161 U/L High 40 - 150 U/L [facility] ALT [Catalytic activity/Vol] 7 U/L NINF - 30 U/L [facility] Anion gap [Moles/Vol] 9 mmol/L 3 - 13 mmol/L [facility] AST [Catalytic activity/Vol] 25 U/L NINF - 34 U/L [facility] Bilirubin [Mass/Vol] 0.9 mg/dL NINF - 1.2 mg/dL [facility] Calcium [Mass/Vol] 8.7 mg/dL Low 8.8 - 10. 0 mg/dL [facility] Chloride [Moles/Vol] 105 mmol/L 98 - 10 7 mmol/L [facility] CO2 [Moles/Vol] 20 mmol/L Low 23 - 31 mmol/L [facility] Creatinine [Mass/Vol] 0.44 mg/dL Low 0.57 - 1.11 mg/dL [facility] GFR/1.73 sq M.predicted (S/P/Bld) [Vol rate/Area] - PINF [facility] Comment on above: Calculation based on the Chronic Kidney Disease Epidemiology Collaboration (CKD-EPI) equation refit without adjustment for race Glucose [Mass/Vol] 92 mg/dL 82 - 115 mg/dL [facility] Interpretation and review of laboratory results Abnormal [facility] Potassium [Moles/Vol] 3.6 mmol/L 3.5 - 5.1 mmol/L [facility] Comment on above: Plasma potassium dede ues may be up to 0.5 mmol/L lower than serum values. Protein [Mass/Vol] 5 g/dL Low 6.4 - 8.3 g/dL [facility] Sodium [Moles/Vol] 134 mmol/L Low 136 - 145 mmol/L [facility] Urea nitrogen [Mass/Vol] 14 mg/dL 9 - 23 mg/dL [facility] Laboratory - Drug toxicology on 05-15-2025 Phenytoin [Mass/Vol] 10 ug/mL 10.0 - 20.0 ug/mL [facility] No Panel Informationon 05-15 Interpretation and review of laboratory results Normal [facility] Toxicity seen at concentrations >20.0 ug/mL [facility] Nursing Noteon 05-15-2025 Nursing Note Notified Willow lu CM and Jc Blanco SW regarding patients daughter in laws request for an update on when she will go to intermediate. Normal [facility] Nursing Note Normal [facility] Nursing Note Notified Dr. Heron grant that during morning round noticed patients left hand and wrist were swollen. Normal [facility] PHENYTOIN TOTALon 05-15-2025 PHENYTOIN, TOTAL 10.0 ug/mL Normal 10.0-20.0 [facility] Comment on above: Result Comment: ORDE R COMMENTS:Toxicity seen at concentrations >20.0 ug/mL Performed By: #### L AB31, LAB17 ####Hose Handler: ORLIN DOMÍNGUEZ ([id number])[facility] [place] ([facility])[address] [place] [id number] [facility] Progress Noteon 05-15-2025 Progress Note Normal [facility] Progress Note Normal [facility] US Upper extremity vein - le fton [...] Basilic Vein (Forearm): Patent, compressible. CV CPACS [id number] 05-14-2025 [id number] Normal [facility] 36on 05-14-2025 36 Normal [facility] CBC W Auto Differential pane l (Bld)on 05-14-2025 Basophils (Bld) [#/Vol] 0 10*3/uL 0.0 - 0.2 10*3/uL [facility] Basophils/100 WBC (Bld) 0.2 % 0.0 - 2.0 % [facility] Eosinophils (Bld) [#/Vol] 0 10*3/uL 0.0 - 0.5 10*3/uL [facility] Eosinophils/100 WBC (Bld) 0.7 % 0.0 - 6.0 % [facility] Erythrocyte distribution width (RBC) [Ratio] 16.9 % High 11.5 - 15.0 % [facility] Hematocrit (Bld) [Volume fraction] 30.7 % Low 35.0 - 47.0 % [facility] Hemoglobin (Bld) [Mass/Vol] 10.5 g/dL Low 11.7 - 16.0 g/dL [facility] Immature granulocytes (Bld) [#/Vol] 0 10*3/uL NINF - 0.1 10*3/uL [facility] Immature granulocytes/100 WBC (Bld) 0.2 % 0.0 - 2.0 % [facility] Interpretation and review of laboratory results Abnormal [facility] Lymphocytes (Bld) [#/Vol] 1.1 10*3/uL 1.0 - 4.3 10*3/uL [facility] Lymphocytes/100 WBC (Bld) 18.7 % 15.0 - 45.0 % [facility] MCH (RBC) [Entitic mass] 35.1 pg High 26.0 - 34.0 pg [facility] MCHC (RBC) [Mass/Vol] 34.2 % 30.5 - 36.0 % [facility] MCV (RBC) [Entitic vol] 102.7 fL High 77.0 - 99.0 fL [facility] Monocytes (Bld) [#/Vol] 0.9 10*3/uL 0.0 - 0.9 10*3/uL [facility] Monocytes/100 WBC (Bld) 15 % High 5.0 - 13.0 % [facility] Neutrophils (Bld) [#/Vol] 3.8 10*3/uL 1.8 - 7.5 10*3/uL [facility] Neutrophils/100 WBC (Bld) 65.2 % 38.0 - 82.0 % [facility] Nucleated RBC/100 WBC (Bld) [Ratio] 0 % [facility] Platelet mean volume (Bld) [Entitic vol] 9.2 fL 9.0 - 12.7 fL [facility] Platelets (Bld) [#/Vol] 200 10*3/uL 140 - 440 10*3/uL [facility] RBC (Bld) [#/Vol] 2.99 10*6/uL Low 3.80 - 5.2 0 10*6/uL [facility] WBC (Bld) [#/Vol] 5.9 10*3/uL 3.6 - 10.7 10*3/uL [facility] CBC WITH AUTO DIFFERENTIALon 05-14-2025 Basophils (Bld) [#/Vol] 0.0 10*3/uL Normal 0.0-0.2 [facility] Comment on above: Performed By: #### L [id number] ####Hose Handler: ORLIN DOMÍNGUEZ ([id number])[facility] [place] ([facility])[address] Basophils/100 WBC (Bld) 0.2 % Normal 0.0-2.0 [facility] Comment on above: Performed By: #### L [id number] ####Hose Handler: ORLIN DOMÍNGUEZ ([id number])[facility] [place] ([facility])[address] Eosinophils (Bld) [#/Vol] 0.0 10*3/uL Normal 0.0-0.5 [facility] Comment on above: Performed By: #### L [id number] ####Hose Handler: ORLIN DOMÍNGUEZ ([id number])[facility] [place] ([facility])[address] [place] [address] Eosinophils/100 WBC (Bld) 0.7 % Normal 0.0-6.0 [facility] Comment on above: Performed By: #### L [id number] ####Hose Handler: ORLIN DOMÍNGUEZ ([id number])[facility] [place] ([facility])[address] Erythrocyte distribution width (RBC) [Ratio] 16.9 % High 11.5-15.0 [facility] Comment on above: Performed By: #### L [id number] ####Hose Handler: ORLIN DOMÍNGUEZ ([id number])[facility] [place] ([facility])[address] Hematocrit (Bld) [Volume fraction] 30.7 % Low 35.0-47.0 [facility] Comment on above: Performed By: #### L [id number] ####Hose Handler: ORLIN CLARKTrinidadANTOINETTE ([id number])[facility] ([facility])[address] Hemoglobin (Bld) [Mass/Vol] 10.5 g/dL Low 11.7-16.0 [facility] Comment on above: Performed By: #### L [id number] ####Hose Handler: ORLIN CLARKTrinidadANTOINETTE ([id number])[facility] ([facility])[address] IMMATURE GRANS % 0.2 % Normal 0.0-2.0 [facility] Comment on above: Performed By: #### L [id number] ####Hose Handler: ORLIN GUILLORYANTOINETTE ([id number])[facility] ([facility])[address] [place] [address] IMMATURE GRANS ABSOLUTE 0.0 10*3/uL Normal <0.1 [facility] Comment on above: Performed By: #### L [id number] ####Hose Handler: ORLIN GUILLORYANTOINETTE ([id number])[facility] ([facility])[address] [place] [address] Lymphocytes (Bld) [#/Vol] 1.1 10*3/uL Normal 1.0-4.3 [facility] Comment on above: Performed By: #### L [id number] ####Hose Handler: ORLIN GUILLORYANTOINETTE ([id number])[facility] ([facility])[address] [place] [address] Lymphocytes/100 WBC (Bld) 18.7 % Normal 15.0-45.0 [facility] Comment on above: Performed By: #### L [id number] ####Hose Handler: ORLIN GUILLORYANTOINETTE ([id number])[facility] ([facility])[address] [place] [address] MCH (RBC) [Entitic mass] 35.1 pg High 26.0-34.0 [facility] Comment on above: Performed By: #### L [id number] ####Hose Handler: ORLIN GUILLORYANTOINETTE ([id number])[facility] [place] ([facility])[address] MCHC 34.2 % Normal 30.5-36.0 [facility] Comment on above: Performed By: #### L [id number] ####Hose Handler: ORLIN CLARKMIKALA ([id number])[facility] [place] ([facility])[address] MCV (RBC) [Entitic vol] 102.7 fL High 77.0-99.0 S [facility] Comment on above: Performed By: #### L [id number] ####Hose Handler: ORLIN CLARKMIKALA ([id number])[facility] [place] ([facility])[address] Monocytes (Bld) [#/Vol] 0.9 10*3/uL Normal 0.0-0.9 [facility] Comment on above: Performed By: #### L [id number] ####Hose Handler: ORLIN GUILLORYANTOINETTE ([id number])[facility] [place] ([facility])[address] Monocytes/100 WBC (Bld) 15.0 % High 5.0-13.0 [facility] Comment on above: Performed By: #### L [id number] ####Hose Handler: ORLIN GUILLORYANTOINETTE ([id number])[facility] [place] ([facility])[address] NEUTROPHILS ABSOLUTE 3.8 10*3/uL Normal 1.8-7.5 [facility] Comment on above: Performed By: #### L [id number] ####Hose Handler: ORLIN GUILLORYANTOINETTE ([id number])[facility] [place] ([facility])[address] Neutrophils/100 WBC (Bld) 65.2 % Normal 38.0-82.0 [facility] Comment on above: Performed By: #### L [id number] ####Hose Handler: ORLIN DOMÍNGUEZ ([id number])[facility] ([facility])[address] NRBC 0.0 /100 WBCs Normal 0.0-2.0 [facility] Comment on above: Performed By: #### L [id number] ####Hose Handler: ORLIN DOMÍNGUEZ ([id number])[facility] ([facility])[address] Platelet mean volume (Bld) [Entitic vol] 9.2 fL Normal 9.0-12.7 [facility] Comment on above: Performed By: #### L [id number] ####Hose Handler: ORLIN DOMÍNGUEZ ([id number])[facility] ([facility])[address] Platelets (Bld) [#/Vol] 200 10*3/uL Normal 140-440 [facility] Comment on above: Performed By: #### L [id number] ####Hose Handler: ORLIN DOMÍNGUEZ ([id number])[facility] ([facility])[address] RBC (Bld) [#/Vol] 2.99 10*6/uL Low 3.80-5.20 [facility] Comment on above: Performed By: #### L [id number] ####Hose Handler: ORLIN DOMÍNGUEZ ([id number])[facility] ([facility])[address] [place] [address] [place] WBC (Bld) [#/Vol] 5.9 10*3/uL Normal 3.6-10.7 [facility] Comment on above: Performed By: #### L [id number] ####Hose Handler: ORLIN DOMÍNGUEZ ([id number])[facility] ([facility])[address] COMPREHENSIVE METABOLIC PANE Jay 10-01-2025 Albumin [Mass/Vol] 2.6 g/dL Low 3.4-4.8 [facility] Comment on above: Performed By: #### L AB17, LAB31, [id number] ####Hose Handler: ORLIN DOMÍNGUEZ ([id number])[facility] [place] ([facility])[address] ALP [Catalytic activity/Vol] 171 U/L High 40-150 [facility] Comment on above: Performed By: #### L AB17, LAB31, [id number] ####Hose Handler: ORLIN DOMÍNGUEZ ([id number])[facility] [place] ([facility])[address] ALT [Catalytic activity/Vol] U/L Normal <30 [facility] Comment on above: Performed By: #### L AB17, LAB31, VSH515 ####Hose Handler: ORLIN DOMÍNGUEZ ([id number])[facility] [place] ([facility])[address] Anion gap [Moles/Vol] 8 mmol/L Normal 3-13 [facility] Comment on above: Performed By: #### L AB17, LAB31, [id number] ####Hose Handler: ORLIN DOMÍNGUEZ ([id number])[facility] [place] ([facility])[address] AST [Catalytic activity/Vol] 20 U/L Normal <34 [facility] Comment on above: Performed By: #### L AB17, LAB31, [id number] ####Hose Handler: ORLIN DOMÍNGUEZ ([id number])[facility] [place] ([facility])[address] Bilirubin [Mass/Vol] 1.1 mg/dL Normal <1.2 [facility] Comment on above: Performed By: #### L AB17, LAB31, SXS515 ####Hose Handler: ORLIN DOMÍNGUEZ ([id number])[facility] [place] ([facility])[address] Calcium [Mass/Vol] 9.1 mg/dL Normal 8.8-10.0 [facility] Comment on above: Performed By: #### L AB17, LAB31, [id number] ####Hose Handler: ORLIN DOMÍNGUEZ ([id number])[facility]ITAL[facility] [place] ([facility]AB)[address] Chloride [Moles/Vol] 104 mmol/L Normal 98-107 [facility] Comment on above: Performed By: #### L AB17, LAB31, [id number] ####Hose Handler: ORLIN DOMÍNGUEZ ([id number])[facility] ([facility])[address] CO2 [Moles/Vol] 21 mmol/L Low 23-31 [facility] Comment on above: Performed By: #### [place] AB17, LAB31, HBO133 ####Hose Handler: ORLIN DOMÍNGUEZ ([id number])[facility] ([facility])[address] Creatinine [Mass/Vol] 0.48 mg/dL Low 0.57-1.11 [facility] Comment on above: Performed By: #### L AB17, LAB31, IFO206 ####Hose Handler: ORLIN DOMÍNGUEZ ([id number])[facility] ([facility])[address] GLOMERULAR FILTRATION RATE ML/MIN/1.73 SQ M.PREDICTED >90.0 Normal >60.0 [facility] Comment on above: Result Comment: Calc ulation based on the Chronic Kidney Disease Epidemiology Collaboration (CKD-EPI) equation refit without adjustment for race Performed By: #### L AB17, LAB31, [id number] ####Hose Handler: ORLIN DOMÍNGUEZ ([id number])[facility]ITAL[facility] [place] ([facility])[address] Glucose [Mass/Vol] 102 mg/dL Normal 82-115 [facility] Comment on above: Performed By: #### L AB17, LAB31, [id number] ####Hose Handler: ORLIN DOMÍNGUEZ ([id number])[facility] ([facility])[address] Potassium [Moles/Vol] 3.2 mmol/L Low 3.5-5.1 [facility] Comment on above: Result Comment: [facility] potassium values may be up to 0.5 mmol/L lower than serum values. Performed By: #### L AB17, LAB31, [id number] ####Hose Handler: ORLIN DOMÍNGUEZ ([id number])[facility] ([facility])[address] Protein [Mass/Vol] 5.1 g/dL Low 6.4-8.3 [facility] Comment on above: Performed By: #### L AB17, LAB31, QGS205 ####Hose Handler: ORLIN DOMÍNGUEZ ([id number])[facility] ([facility])[address] Sodium [Moles/Vol] 133 mmol/L Low 136-145 [facility] Comment on above: Performed By: #### L AB17, LAB31, [id number] ####Hose Handler: ORLIN DOMÍNGUEZ ([id number])[facility] ([facility])[address] Urea nitrogen [Mass/Vol] 11 mg/dL Normal 9-23 [facility] Comment on above: Performed By: #### L AB17, LAB31, [id number] ####Hose Handler: ORLIN DOMÍNGUEZ ([id number])[facility] ([facility])[address] Comprehensive metabolic 1998 panelon 05-14-2025 Albumin [Mass/Vol] 2.6 g/dL Low 3.4 - 4.8 g/dL [facility] ALP [Catalytic activity/Vol] 171 U/L High 40 - 150 U/L [facility] ALT [Catalytic activity/Vol] U/L NINF - 30 U/L [facility] Anion gap [Moles/Vol] 8 mmol/L 3 - 13 mmol/L [facility] AST [Catalytic activity/Vol] 20 U/L NINF - 34 U/L [facility] Bilirubin [Mass/Vol] 1.1 mg/dL NINF - 1.2 mg/dL [facility] Calcium [Mass/Vol] 9.1 mg/dL 8.8 - 10. 0 mg/dL [facility] Chloride [Moles/Vol] 104 mmol/L 98 - 10 7 mmol/L [facility] CO2 [Moles/Vol] 21 mmol/L Low 23 - 31 mmol/L [facility] Creatinine [Mass/Vol] 0.48 mg/dL Low 0.57 - 1.11 mg/dL [facility] GFR/1.73 sq M.predicted (S/P/Bld) [Vol rate/Area] - PINF [facility] Comment on above: Calculation based on the Chronic Kidney Disease Epidemiology Collaboration (CKD-EPI) equation refit without adjustment for race Glucose [Mass/Vol] 102 mg/dL 82 - 115 mg/dL [facility] Interpretation and review of laboratory results Abnormal [facility] Potassium [Moles/Vol] 3.2 mmol/L Low 3.5 - 5.1 mmol/L [facility] Comment on above: Plasma potassium dede ues may be up to 0.5 mmol/L lower than serum values. Protein [Mass/Vol] 5.1 g/dL Low 6.4 - 8.3 g/dL [facility] Sodium [Moles/Vol] 133 mmol/L Low 136 - 145 mmol/L [facility] Urea nitrogen [Mass/Vol] 11 mg/dL 9 - 23 mg/dL [facility] Laboratory - Chemistry and C hemistry - challengeon 05-14-2025 Magnesium [Mass/Vol] 1.7 mg/dL 1.6 - 2 .6 mg/dL [facility] - Drug toxicology on 05-14-2025 Phenytoin [Mass/Vol] 15.9 ug/mL 10.0 - 20.0 ug/mL [facility] MAGNESIUMon 05-14-2025 Magnesium [Mass/Vol] 1.7 mg/dL Normal 1.6-2.6 [facility] Comment on above: Result Comment: ORDE R COMMENTS:Higher values can be expected in females during menses. Performed By: #### L AB17, LAB31, [id number] ####Hose Handler: ORLIN DOMÍNGUEZ ([id number])[facility] (SBHLAB)[address] Magnesium [Mass/Vol]on 05-14 Interpretation and review of laboratory results Normal [facility] Higher values can be expected in females during menses. [facility] No Panel Informationon 05-14 Interpretation and review of laboratory results Normal [facility] Toxicity seen at concentrations >20.0 ug/mL [facility] PHENYTOIN TOTALon 05-14-2025 PHENYTOIN, TOTAL 15.9 ug/mL Normal 10.0-20.0 [facility] Comment on above: Result Comment: CHERELLE Zepeda COMMENTS:Toxicity seen at concentrations >20.0 ug/mL Performed By: #### L AB17, LAB31, [id number] ####Hose Handler: ORLIN DOMÍNGUEZ ([id number])[facility] Progress Noteon 05-14-2025 [facility] Progress Note Normal [facility] Progress Note Normal [facility] [id number] 05-13-2025 [id number] Normal [facility] [id number] Normal [facility] 36on 05-13-2025 36 She was seen in the hospital with Sivan Romero Normal [facility] 36 error Normal [facility] CBC W Auto Differential pane l (Bld)on 05-13-2025 Basophils (Bld) [#/Vol] 0 10*3/uL 0.0 - 0.2 10*3/uL [facility] Basophils/100 WBC (Bld) 0.5 % 0.0 - 2.0 % [facility] Eosinophils (Bld) [#/Vol] 0.1 10*3/uL 0.0 - 0.5 10*3/uL [facility] Eosinophils/100 WBC (Bld) 2.7 % 0.0 - 6.0 % [facility] Erythrocyte distribution width (RBC) [Ratio] 17 % High 11.5 - 15.0 % [facility] Hematocrit (Bld) [Volume fraction] 31.5 % Low 35.0 - 47.0 % [facility] Hemoglobin (Bld) [Mass/Vol] 10.5 g/dL Low 11.7 - 16.0 g/dL [facility] Immature granulocytes (Bld) [#/Vol] 0 10*3/uL NINF - 0.1 10*3/uL [facility] Immature granulocytes/100 WBC (Bld) 0.5 % 0.0 - 2.0 % [facility] Interpretation and review of laboratory results Abnormal [facility] Lymphocytes (Bld) [#/Vol] 1 10*3/uL 1.0 - 4.3 10*3/uL [facility] Lymphocytes/100 WBC (Bld) 23.5 % 15.0 - 45.0 % [facility] MCH (RBC) [Entitic mass] 34.7 pg High 26.0 - 34.0 pg [facility] MCHC (RBC) [Mass/Vol] 33.3 % 30.5 - 36.0 % [facility] MCV (RBC) [Entitic vol] 104 fL High 77.0 - 99.0 fL [facility] XOJET Monocytes (Bld) [#/Vol] 0.6 10*3/uL 0.0 - 0.9 10*3/uL [facility] Monocytes/100 WBC (Bld) 14.3 % High 5.0 - 13.0 % [facility] Neutrophils (Bld) [#/Vol] 2.4 10*3/uL 1.8 - 7.5 10*3/uL [facility] Neutrophils/100 WBC (Bld) 58.5 % 38.0 - 82.0 % [facility] Nucleated RBC/100 WBC (Bld) [Ratio] 0 % [facility] XOJET Platelet mean volume (Bld) [Entitic vol] 9.2 fL 9.0 - 12.7 fL [facility] Platelets (Bld) [#/Vol] 192 10*3/uL 140 - 440 10*3/uL [facility] RBC (Bld) [#/Vol] 3.03 10*6/uL Low 3.80 - 5.2 0 10*6/uL [facility] WBC (Bld) [#/Vol] 4.1 10*3/uL 3.6 - 10.7 10*3/uL [facility] CBC WITH AUTO DIFFERENTIALon 05-13-2025 Basophils (Bld) [#/Vol] 0.0 10*3/uL Normal 0.0-0.2 [facility] Comment on above: Performed By: #### L [id number] ####Hose Handler: ORLIN DOMÍNGUEZ ([id number])[facility] (SBHLAB)[address] Basophils/100 WBC (Bld) 0.5 % Normal 0.0-2.0 [facility] Comment on above: Performed By: #### L [id number] ####Hose Handler: ORLIN DOMÍNGUEZ ([id number])[facility] (SBHLAB)[address] Eosinophils (Bld) [#/Vol] 0.1 10*3/uL Normal 0.0-0.5 [facility] Comment on above: Performed By: #### L [id number] ####Hose Handler: ORLIN DOMÍNGUEZ ([id number])[facility] [place] (SBHLAB)[address] Eosinophils/100 WBC (Bld) 2.7 % Normal 0.0-6.0 [facility] Comment on above: Performed By: #### L [id number] ####Hose Handler: ORLIN GUILLORYANTOINETTE ([id number])[facility] (SBHLAB)[address] Erythrocyte distribution width (RBC) [Ratio] 17.0 % High 11.5-15.0 [facility] Comment on above: Performed By: #### L [id number] ####Hose Handler: ORLIN DOMÍNGUEZ ([id number])[facility] [place] (SBHLAB)[address] Hematocrit (Bld) [Volume fraction] 31.5 % Low 35.0-47.0 [facility] Comment on above: Performed By: #### L [id number] ####Hose Handler: ORLIN DOMÍNGUEZ ([id number])[facility] [place] (SBHLAB)[address] Hemoglobin (Bld) [Mass/Vol] 10.5 g/dL Low 11.7-16.0 [facility] Comment on above: Performed By: #### L [id number] ####Hose Handler: ORLIN DOMÍNGUEZ ([id number])[facility] [place] (SBHLAB)[address] IMMATURE GRANS % 0.5 % Normal 0.0-2.0 [facility] Comment on above: Performed By: #### L [id number] ####Hose Handler: ORLIN DOMÍNGUEZ ([id number])[facility] (SBHLAB)[address] IMMATURE GRANS ABSOLUTE 0.0 10*3/uL Normal <0.1 [facility] Comment on above: Performed By: #### L [id number] ####Hose Handler: ORLIN DOMÍNGUEZ ([id number])[facility] (SBHLAB)[address] Lymphocytes (Bld) [#/Vol] 1.0 10*3/uL Normal 1.0-4.3 [facility] Comment on above: Performed By: #### L [id number] ####Hose Handler: ORLIN DOMÍNGUEZ ([id number])[facility] [place] (SBHLAB)[address] Lymphocytes/100 WBC (Bld) 23.5 % Normal 15.0-45.0 [facility] Comment on above: Performed By: #### L [id number] ####Hose Handler: ORLIN DOMÍNGUEZ ([id number])[facility] [place] (SBHLAB)[address] MCH (RBC) [Entitic mass] 34.7 pg High 26.0-34.0 [facility] Comment on above: Performed By: #### L [id number] ####Hose Handler: ORLIN DOMÍNGUEZ ([id number])[facility] (SBHLAB)[address] MCHC 33.3 % Normal 30.5-36.0 [facility] Comment on above: Performed By: #### L [id number] ####Hose Handler: ORLIN CLARKTrinidadANTOINETTE ([id number])[facility] (SBHLAB)[address] MCV (RBC) [Entitic vol] 104.0 fL High 77.0-99.0 S [facility] Comment on above: Performed By: #### L [id number] ####Hose Handler: ORLIN SANG ([id number])[facility] [place] (SBHLAB)[address] Monocytes (Bld) [#/Vol] 0.6 10*3/uL Normal 0.0-0.9 [facility] Comment on above: Performed By: #### L [id number] ####Hose Handler: ORLIN CLARKMIKALA ([id number])[facility] [place] (SB[facility]AB)[address] Monocytes/100 WBC (Bld) 14.3 % High 5.0-13.0 [facility] Comment on above: Performed By: #### L [id number] ####Hose Handler: ORLIN GUILLORYANTOINETTE ([id number])[facility] (SBHLAB)[address] NEUTROPHILS ABSOLUTE 2.4 10*3/uL Normal 1.8-7.5 [facility] Comment on above: Performed By: #### L [id number] ####Hose Handler: ORLIN CLARKMIKALA ([id number])[facility] [place] (SB[facility]AB)[address] Neutrophils/100 WBC (Bld) 58.5 % Normal 38.0-82.0 [facility] Comment on above: Performed By: #### L [id number] ####Hose Handler: ORLIN GUILLORYANTOINETTE ([id number])[facility] [place] (SBHLAB)[address] NRBC 0.0 /100 WBCs Normal 0.0-2.0 [facility] Comment on above: Performed By: #### L [id number] ####Hose Handler: ORLIN DOMÍNGUEZ ([id number])[facility] [place] (SBHLAB)[address] Platelet mean volume (Bld) [Entitic vol] 9.2 fL Normal 9.0-12.7 [facility] Comment on above: Performed By: #### L [id number] ####Hose Handler: ORLIN DOMÍNGUEZ ([id number])[facility] [place] (SB[facility]AB)[address] Platelets (Bld) [#/Vol] 192 10*3/uL Normal 140-440 [facility] Comment on above: Performed By: #### L [id number] ####Hose Handler: ORLIN DOMÍNGUEZ ([id number])[facility] [place] (SBHLAB)[address] RBC (Bld) [#/Vol] 3.03 10*6/uL Low 3.80-5.20 [facility] Comment on above: Performed By: #### L [id number] ####Hose Handler: ORLIN DOMÍNGUEZ ([id number])[facility] [place] (SBHLAB)[address] WBC (Bld) [#/Vol] 4.1 10*3/uL Normal 3.6-10.7 [facility] Comment on above: Performed By: #### L [id number] ####Hose Handler: ORLIN DOMÍNGUEZ ([id number])[facility] [place] (SBHLAB)[address] COMPREHENSIVE METABOLIC PANE Jay 05-13-2025 Albumin [Mass/Vol] 2.7 g/dL Low 3.4-4.8 [facility] Comment on above: Performed By: #### L AB103, LAB17 ####Hose Handler: ORLIN DOMÍNGUEZ ([id number])[facility] [place] (SBHLAB)[address] [place] [address] [place] ALP [Catalytic activity/Vol] 181 U/L High 40-150 [facility] Comment on above: Performed By: #### L AB103, LAB17 ####Hose Handler: ORLIN DOMÍNGUEZ ([id number])[facility] (SBHLAB)[address] [place] [address] [place] ALT [Catalytic activity/Vol] 6 U/L Normal <30 [facility] Comment on above: Performed By: #### L AB103, LAB17 ####Hose Handler: ORLIN DOMÍNGUEZ ([id number])[facility] [place] (SB[facility])[address] Anion gap [Moles/Vol] 8 mmol/L Normal 3-13 [facility] Comment on above: Performed By: #### L AB103, LAB17 ####Hose Handler: ORLIN DOMÍNGUEZ ([id number])[facility] [place] (SB[facility]AB)[address] AST [Catalytic activity/Vol] 21 U/L Normal <34 [facility] Comment on above: Performed By: #### L AB103, LAB17 ####Hose Handler: ORLIN DOMÍNGUEZ ([id number])[facility] [place] (SB[facility])[address] Bilirubin [Mass/Vol] 1.0 mg/dL Normal <1.2 [facility] Comment on above: Performed By: #### L AB103, LAB17 ####Hose Handler: ORLIN DOMÍNGUEZ ([id number])[facility] [place] (SB[facility]AB)[address] [place] [address] [place] Calcium [Mass/Vol] 8.8 mg/dL Normal 8.8-10.0 [facility] Comment on above: Performed By: #### L AB103, LAB17 ####Hose Handler: ORLIN DOMÍNGUEZ ([id number])[facility] [place] (SB[facility]AB)[address] [place] [address] [place] Chloride [Moles/Vol] 104 mmol/L Normal 98-107 [facility] Comment on above: Performed By: #### L AB103, LAB17 ####Hose Handler: ORLIN DOMÍNGUEZ ([id number])[facility]ITALDeepti [facility] (SBHLAB)[address] CO2 [Moles/Vol] 23 mmol/L Normal 23-31 [facility] Comment on above: Performed By: #### L AB103, LAB17 ####Hose Handler: ORLIN DOMÍNGUEZ ([id number])[facility] (SBHLAB)[address] Creatinine [Mass/Vol] 0.41 mg/dL Low 0.57-1.11 [facility] Comment on above: Performed By: #### L AB103, LAB17 ####Hose Handler: ORLIN DOMÍNGUEZ ([id number])[facility] (HLAB)[address] GLOMERULAR FILTRATION RATE ML/MIN/1.73 SQ M.PREDICTED >90.0 Normal >60.0 [facility] Comment on above: Result Comment: Calc ulation based on the Chronic Kidney Disease Epidemiology Collaboration (CKD-EPI) equation refit without adjustment for race Performed By: #### L AB103, LAB17 ####Hose Handler: ORLIN DOMÍNGUEZ ([id number])[facility] (SBHLAB)[address] Glucose [Mass/Vol] 93 mg/dL Normal 82-115 [facility] Comment on above: Performed By: #### L AB103, LAB17 ####Hose Handler: ORLIN DOMÍNGUEZ ([id number])[facility] ([facility])[address] Potassium [Moles/Vol] 3.1 mmol/L Low 3.5-5.1 [facility] Comment on above: Result Comment: [facility] potassium values may be up to 0.5 mmol/L lower than serum values. Performed By: #### L AB103, LAB17 ####Hose Handler: ORLIN GUILLORYANTOINETTE ([id number])[facility]ITAL[facility] [place] (SBHLAB)[address] Protein [Mass/Vol] 5.2 g/dL Low 6.4-8.3 [facility] Comment on above: Performed By: #### L AB103, LAB17 ####Hose Handler: ORLIN SINGHCER ([id number])[facility] [place] (SBHLAB)[address] Sodium [Moles/Vol] 135 mmol/L Low 136-145 [facility] Comment on above: Performed By: #### L AB103, LAB17 ####Hose Handler: ORLIN CLARKMIKALA ([id number])[facility]ITAL[facility] [place] (SBHLAB)[address] Urea nitrogen [Mass/Vol] 7 mg/dL Low 9-23 [facility] Comment on above: Performed By: #### L AB103, LAB17 ####Hose Handler: ORLIN GUILLORYANTOINETTE ([id number])[facility] [place] (SBHLAB)[address] Comprehensive metabolic 1998 panelon 05-13-2025 Albumin [Mass/Vol] 2.7 g/dL Low 3.4 - 4.8 g/dL [facility] ALP [Catalytic activity/Vol] 181 U/L High 40 - 150 U/L [facility] ALT [Catalytic activity/Vol] 6 U/L NINF - 30 U/L [facility] Anion gap [Moles/Vol] 8 mmol/L 3 - 13 mmol/L [facility] AST [Catalytic activity/Vol] 21 U/L NINF - 34 U/L [facility] Bilirubin [Mass/Vol] 1 mg/dL NINF - 1.2 mg/dL [facility] Calcium [Mass/Vol] 8.8 mg/dL 8.8 - 10. 0 mg/dL [facility] Chloride [Moles/Vol] 104 mmol/L 98 - 10 7 mmol/L [facility] CO2 [Moles/Vol] 23 mmol/L 23 - 31 mmol/L [facility] Creatinine [Mass/Vol] 0.41 mg/dL Low 0.57 - 1.11 mg/dL [facility] GFR/1.73 sq M.predicted (S/P/Bld) [Vol rate/Area] - PINF [facility] Comment on above: Calculation based on the Chronic Kidney Disease Epidemiology Collaboration (CKD-EPI) equation refit without adjustment for race Glucose [Mass/Vol] 93 mg/dL 82 - 115 mg/dL [facility] Interpretation and review of laboratory results Abnormal [facility] Potassium [Moles/Vol] 3.1 mmol/L Low 3.5 - 5.1 mmol/L [facility] Comment on above: Plasma potassium dede ues may be up to 0.5 mmol/L lower than serum values. Protein [Mass/Vol] 5.2 g/dL Low 6.4 - 8.3 g/dL [facility] Sodium [Moles/Vol] 135 mmol/L Low 136 - 145 mmol/L [facility] Urea nitrogen [Mass/Vol] 7 mg/dL Low 9 - 23 mg/dL [facility] - Chemistry and C hemistry - challengeon 05-13-2025 Magnesium [Mass/Vol] 1.7 mg/dL 1.6 - 2 .6 mg/dL [facility] - Drug toxicology on 05-13-2025 Phenytoin [Mass/Vol] 21.4 ug/mL High 10.0 - 20.0 ug/mL [facility] MAGNESIUMon 05-13-2025 Magnesium [Mass/Vol] 1.7 mg/dL Normal 1.6-2.6 [facility] Comment on above: Result Comment: CHERELLE Zepeda COMMENTS:Higher values can be expected in females during menses. Performed By: #### L AB103, LAB17 ####Hose Handler: ORLIN DOMÍNGUEZ ([id number])[facility]ITAL[facility]res[facility] (SBAB)[address] [place] [address] Magnesium [Mass/Vol]on 05-13 Interpretation and review of laboratory results Normal [facility] Higher values can be expected in females during menses. [facility] No Panel Informationon 05-13 Interpretation and review of laboratory results Abnormal [facility] Toxicity seen at concentrations >20.0 ug/mL [facility] PHENYTOIN TOTALon 05-13-2025 PHENYTOIN, TOTAL 21.4 ug/mL High 10.0-20.0 [facility] Comment on above: Result Comment: CHERELLE Zepeda COMMENTS:Toxicity seen at concentrations >20.0 ug/mL Performed By: #### L AB31 ####Hose Handler: ORLIN DOMÍNGUEZ ([id number])[facility] [place] (SBHLAB)[address] [place] [address] Progress Noteon 05-13-2025 Progress Note Normal [facility] [...] Electronically Signed Date/Time: 05/13/2025 2:34 PM EDT [facility] Patient Name: MADAY ALFARO : 1940 [...] joint space narrowing, subchondral sclerosis and osteophytosis. [facility] Brendon Koenig MD - 05/13/2025 Patient [...] Electronically Signed Date/Time: 05/13/2025 2:34 PM EDT [facility] Radiology Study observation (narrative) [facility] XR Femur - left 2 ViewsOrder ed By: Brendon Koenig on 05-13-2025 [facility] Work Phone: [phone] 05-12-2025 [id number] Normal [facility] [id number] Normal [facility] 36on 05-12-2025 36 Normal [facility] 36 Normal [facility] CBC W Auto Differential pane l (Bld)Ordered By: Xiomara Bell on 05-12-2025 Basophils (Bld) [#/Vol] 0 10*3/uL 0.0 - 0.2 10*3/uL [facility] Basophils/100 WBC (Bld) 0.4 % 0.0 - 2.0 % [facility] Eosinophils (Bld) [#/Vol] 0.1 10*3/uL 0.0 - 0.5 10*3/uL [facility] Eosinophils/100 WBC (Bld) 2 % 0.0 - 6.0 % [facility] Erythrocyte distribution width (RBC) [Ratio] 17.2 % High 11.5 - 15.0 % [facility] Hematocrit (Bld) [Volume fraction] 33.9 % Low 35.0 - 47.0 % [facility] Hemoglobin (Bld) [Mass/Vol] 11.2 g/dL Low 11.7 - 16.0 g/dL [facility] Immature granulocytes (Bld) [#/Vol] 0.1 10*3/uL High NINF - 0.1 10*3/uL [facility] Immature granulocytes/100 WBC (Bld) 1.1 % 0.0 - 2.0 % [facility] Interpretation and review of laboratory results Abnormal [facility] XOJET Lymphocytes (Bld) [#/Vol] 0.7 10*3/uL Low 1.0 - 4.3 10*3/uL [facility] XOJET Lymphocytes/100 WBC (Bld) 15.4 % 15.0 - 45.0 % [facility] MCH (RBC) [Entitic mass] 34.8 pg High 26.0 - 34.0 pg [facility] MCHC (RBC) [Mass/Vol] 33 % 30.5 - 36.0 % [facility] MCV (RBC) [Entitic vol] 105.3 fL High 77.0 - 99.0 fL [facility] XOJET Monocytes (Bld) [#/Vol] 0.7 10*3/uL 0.0 - 0.9 10*3/uL [facility] Monocytes/100 WBC (Bld) 15 % High 5.0 - 13.0 % [facility] Neutrophils (Bld) [#/Vol] 3 10*3/uL 1.8 - 7.5 10*3/uL [facility] XOJET Neutrophils/100 WBC (Bld) 66.1 % 38.0 - 82.0 % [facility] Nucleated RBC/100 WBC (Bld) [Ratio] 0 % [facility] XOJET Platelet mean volume (Bld) [Entitic vol] 9.8 fL 9.0 - 12.7 fL [facility] Platelets (Bld) [#/Vol] 164 10*3/uL 140 - 440 10*3/uL [facility] RBC (Bld) [#/Vol] 3.22 10*6/uL Low 3.80 - 5.2 0 10*6/uL [facility] WBC (Bld) [#/Vol] 4.6 10*3/uL 3.6 - 10.7 10*3/uL [facility] CBC WITH AUTO DIFFERENTIALon 05-12-2025 Basophils (Bld) [#/Vol] 0.0 10*3/uL Normal 0.0-0.2 [facility] Comment on above: Performed By: #### L [id number] ####Hose Handler: ORLIN DOMÍNGUEZ ([id number])[facility]ITAL[facility] (SBHLAB)[address] [place] [address] Basophils/100 WBC (Bld) 0.4 % Normal 0.0-2.0 [facility] Comment on above: Performed By: #### L [id number] ####Hose Handler: ORLIN DOMÍNGUEZ ([id number])[facility] (SBHLAB)[address] Eosinophils (Bld) [#/Vol] 0.1 10*3/uL Normal 0.0-0.5 [facility] Comment on above: Performed By: #### L [id number] ####Hose Handler: ORLIN DOMÍNGUEZ ([id number])[facility] [place] (SBHLAB)[address] Eosinophils/100 WBC (Bld) 2.0 % Normal 0.0-6.0 [facility] Comment on above: Performed By: #### L [id number] ####Hose Handler: ORLIN DOMÍNGUEZ ([id number])[facility] [place] (SBHLAB)[address] Erythrocyte distribution width (RBC) [Ratio] 17.2 % High 11.5-15.0 [facility] Comment on above: Performed By: #### L [id number] ####Hose Handler: ORLIN DOMÍNGUEZ ([id number])[facility] [place] (SBHLAB)[address] [place] [address] Hematocrit (Bld) [Volume fraction] 33.9 % Low 35.0-47.0 [facility] Comment on above: Performed By: #### L [id number] ####Hose Handler: ORLIN DOMÍNGUEZ ([id number])[facility] [place] (SBHLAB)[address] Hemoglobin (Bld) [Mass/Vol] 11.2 g/dL Low 11.7-16.0 [facility] Comment on above: Performed By: #### L [id number] ####Hose Handler: ORLIN DOMÍNGUEZ ([id number])[facility] [place] (SBHLAB)[address] IMMATURE GRANS % 1.1 % Normal 0.0-2.0 [facility] Comment on above: Performed By: #### L [id number] ####Hose Handler: ORLIN DOMÍNGUEZ ([id number])[facility] (SBHLAB)[address] IMMATURE GRANS ABSOLUTE 0.1 10*3/uL High <0.1 [facility] Comment on above: Performed By: #### L [id number] ####Hose Handler: ORLIN DOMÍNGUEZ ([id number])[facility] (SBHLAB)[address] Lymphocytes (Bld) [#/Vol] 0.7 10*3/uL Low 1.0-4.3 [facility] Comment on above: Performed By: #### L [id number] ####Hose Handler: ORLIN DOMÍNGUEZ ([id number])[facility] (SBHLAB)[address] Lymphocytes/100 WBC (Bld) 15.4 % Normal 15.0-45.0 [facility] Comment on above: Performed By: #### L [id number] ####Hose Handler: ORLIN DOMÍNGUEZ ([id number])[facility] (SBHLAB)[address] MCH (RBC) [Entitic mass] 34.8 pg High 26.0-34.0 [facility] Comment on above: Performed By: #### L [id number] ####Hose Handler: ORLIN DOMÍNGUEZ ([id number])[facility] (SBHLAB)[address] MCHC 33.0 % Normal 30.5-36.0 [facility] Comment on above: Performed By: #### L [id number] ####Hose Handler: ORLIN DOMÍNGUEZ ([id number])[facility] BARBCROWNPOINT [facility]ILITYN (SBHLAB)[address] MCV (RBC) [Entitic vol] 105.3 fL High 77.0-99.0 [facility] Comment on above: Performed By: #### L [id number] ####Hose Handler: ORLIN DOMÍNGUEZ ([id number])[facility] (SBHLAB)[address] Monocytes (Bld) [#/Vol] 0.7 10*3/uL Normal 0.0-0.9 [facility] Comment on above: Performed By: #### L [id number] ####Hose Handler: ORLIN DOMÍNGUEZ ([id number])[facility] [place] (SBHLAB)[address] Monocytes/100 WBC (Bld) 15.0 % High 5.0-13.0 [facility] Comment on above: Performed By: #### L [id number] ####Hose Handler: ORLIN DOMÍNGUEZ ([id number])[facility] [place] ([facility])[address] NEUTROPHILS ABSOLUTE 3.0 10*3/uL Normal 1.8-7.5 [facility] Comment on above: Performed By: #### L [id number] ####Hose Handler: ORLIN DOMÍNGUEZ ([id number])[facility] [place] ([facility])[address] Neutrophils/100 WBC (Bld) 66.1 % Normal 38.0-82.0 [facility] Comment on above: Performed By: #### L [id number] ####Hose Handler: ORLIN DOMÍNGUEZ ([id number])[facility] [place] ([facility])[address] NRBC 0.0 /100 WBCs Normal 0.0-2.0 [facility] Comment on above: Performed By: #### L [id number] ####Hose Handler: ORLIN DOMÍNGUEZ ([id number])[facility] [place] ([facility])[address] Platelet mean volume (Bld) [Entitic vol] 9.8 fL Normal 9.0-12.7 [facility] Comment on above: Performed By: #### L [id number] ####Hose Handler: ORLIN DOMÍNGUEZ ([id number])[facility] [place] (SBHLAB)[address] Platelets (Bld) [#/Vol] 164 10*3/uL Normal 140-440 [facility] Comment on above: Performed By: #### L [id number] ####Hose Handler: ORLIN DOMÍNGUEZ ([id number])[facility] [place] (SBHLAB)[address] RBC (Bld) [#/Vol] 3.22 10*6/uL Low 3.80-5.20 [facility] Comment on above: Performed By: #### L [id number] ####Hose Handler: ORLIN DOMÍNGUEZ ([id number])[facility] [place] (SBHLAB)[address] WBC (Bld) [#/Vol] 4.6 10*3/uL Normal 3.6-10.7 [facility] Comment on above: Performed By: #### L [id number] ####Hose Handler: ORLIN DOMÍNGUEZ ([id number])[facility] [place] (SBHLAB)[address] COMPREHENSIVE METABOLIC PANE Jay 05-12-2025 Albumin [Mass/Vol] 2.9 g/dL Low 3.4-4.8 [facility] Comment on above: Performed By: #### L AB17 ####Hose Handler: ORLIN DOMÍNGUEZ ([id number])[facility] [place] (SBHLAB)[address] ALP [Catalytic activity/Vol] 193 U/L High 40-150 [facility] Comment on above: Performed By: #### L AB17 ####Hose Handler: ORLIN DOMÍNGUEZ ([id number])[facility] [place] (SBHLAB)[address] ALT [Catalytic activity/Vol] 6 U/L Normal <30 [facility] Comment on above: Performed By: #### L AB17 ####Hose Handler: ORLIN DOMÍNGUEZ ([id number])[facility] [place] (SBHLAB)[address] Anion gap [Moles/Vol] 10 mmol/L Normal 3-13 [facility] Comment on above: Performed By: #### L AB17 ####Hose Handler: ORLIN DOMÍNGUEZ ([id number])[facility] [place] (HLAB)[address] AST [Catalytic activity/Vol] 23 U/L Normal <34 [facility] Comment on above: Performed By: #### L AB17 ####Hose Handler: ORLIN DOMÍNGUEZ ([id number])[facility] (HLAB)[address] Bilirubin [Mass/Vol] 1.2 mg/dL High <1.2 [facility] Comment on above: Performed By: #### L AB17 ####Hose Handler: ORLIN DOMÍNGUEZ ([id number])[facility] Calcium [Mass/Vol] 9.0 mg/dL Normal 8.8-10.0 [facility] Comment on above: Performed By: #### L AB17 ####Hose Handler: ORLIN DOMÍNGUEZ ([id number])[facility] (HLAB)[address] [place] [address] [place] Chloride [Moles/Vol] 103 mmol/L Normal 98-107 [facility] Comment on above: Performed By: #### L AB17 ####Hose Handler: ORLIN DOMÍNGUEZ ([id number])[facility] (HLAB)[address] [place] [address] [place] CO2 [Moles/Vol] 20 mmol/L Low 23-31 [facility] Comment on above: Performed By: #### L AB17 ####Hose Handler: ORLIN DOMÍNGUEZ ([id number])[facility]ITALDeepti [facility]BCROWN[facility] FACILITYCresencio (SBHLAB)[address] Creatinine [Mass/Vol] 0.44 mg/dL Low 0.57-1.11 [facility] Comment on above: Performed By: #### L AB17 ####Hose Handler: ORLIN DOMÍNGUEZ ([id number])[facility]ITALDee[facility] (SBHLAB)[address] GLOMERULAR FILTRATION RATE ML/MIN/1.73 SQ M.PREDICTED >90.0 Normal >60.0 [facility] Comment on above: Result Comment: Calc ulation based on the Chronic Kidney Disease Epidemiology Collaboration (CKD-EPI) equation refit without adjustment for race Performed By: #### L AB17 ####Hose Handler: ORLIN DOMÍNGUEZ ([id number])[facility]ITAL[facility] [place] (SBHLAB)[address] Glucose [Mass/Vol] 109 mg/dL Normal 82-115 [facility] Comment on above: Performed By: #### L AB17 ####Hose Handler: ORLIN DOMÍNGUEZ ([id number])[facility] (HLAB)[address] Potassium [Moles/Vol] 3.6 mmol/L Normal 3.5-5.1 [facility] Comment on above: Result Comment: [facility] potassium values may be up to 0.5 mmol/L lower than serum values. Performed By: #### L AB17 ####Hose Handler: ORLIN DOMÍNGUEZ ([id number])[facility]ITAL[facility] (SBHLAB)[address] Protein [Mass/Vol] 5.7 g/dL Low 6.4-8.3 [facility] Comment on above: Performed By: #### L AB17 ####Hose Handler: ORLIN DOMÍNGUEZ ([id number])[facility] (SBHLAB)[address] [place] [address] [place] Sodium [Moles/Vol] 133 mmol/L Low 136-145 [facility] Comment on above: Performed By: #### L AB17 ####Hose Handler: ORLINGEORGIA CLARKTrinidadANTOINETTE ([id number])[facility] (SBHLAB)[address] Urea nitrogen [Mass/Vol] 9 mg/dL Normal 9-23 [facility] Comment on above: Performed By: #### L AB17 ####Hose Handler: ORLINGEORGIA DOMÍNGUEZ ([id number])[facility] (SBHLAB)[address] Comprehensive metabolic 1998 panelon 05-12-2025 Albumin [Mass/Vol] 2.9 g/dL Low 3.4 - 4.8 g/dL [facility] ALP [Catalytic activity/Vol] 193 U/L High 40 - 150 U/L [facility] ALT [Catalytic activity/Vol] 6 U/L NINF - 30 U/L [facility] Anion gap [Moles/Vol] 10 mmol/L 3 - 13 mmol/L [facility] AST [Catalytic activity/Vol] 23 U/L NINF - 34 U/L [facility] Bilirubin [Mass/Vol] 1.2 mg/dL High [facility] mg/dL [facility] Calcium [Mass/Vol] 9 mg/dL 8.8 - 10. 0 mg/dL [facility] Chloride [Moles/Vol] 103 mmol/L 98 - 10 7 mmol/L [facility] CO2 [Moles/Vol] 20 mmol/L Low 23 - 31 mmol/L [facility] Creatinine [Mass/Vol] 0.44 mg/dL Low 0.57 - 1.11 mg/dL [facility] GFR/1.73 sq M.predicted (S/P/Bld) [Vol rate/Area] - PINF [facility] Comment on above: Calculation based on the Chronic Kidney Disease Epidemiology Collaboration (CKD-EPI) equation refit without adjustment for race Glucose [Mass/Vol] 109 mg/dL 82 - 115 mg/dL [facility] Interpretation and review of laboratory results Abnormal [facility] Potassium [Moles/Vol] 3.6 mmol/L 3.5 - 5.1 mmol/L [facility] Comment on above: Plasma potassium dede ues may be up to 0.5 mmol/L lower than serum values. Protein [Mass/Vol] 5.7 g/dL Low 6.4 - 8.3 g/dL [facility] Sodium [Moles/Vol] 133 mmol/L Low 136 - 145 mmol/L [facility] Urea nitrogen [Mass/Vol] 9 mg/dL 9 - 23 mg/dL [facility] Consulton 05-12-2025 Consult Normal [facility] Laboratory - Drug toxicology Ordered By: Denis White on 05-12-2025 Phenytoin [Mass/Vol] 33.2 ug/mL Critically high 10.0 - 20.0 ug/mL [facility] No Panel Informationon 05-12 Camilo Puga MD 05/13/2025 7:20 PM EEG/VIDEO REPORT DEMOGRAPHICS PATIENT: MADAY ALFARO MEDICAL RECORD: [id number] DATE OF SERVICE: 2024 DATE OF : 42 AGE: 84 GENDER: Female HANDEDNESS: RIGHT DICTATING PHYSICIAN: Dr. Camargo REFERRING PHYSICIAN: Dr. Camargo EEG PARAMETER EEG TEST ?: [id number] EEG TEST TYPE: Inpatient routine 21-MINUTE EEG RECORDING. (8:26 AM-8:47 AM) [employer]: Neo Mcadams 44 Channel EEG for data [...] seen on video. MIKALA Camargo MD NEUROLOGIST [facility] No Panel InformationOrdered By: Denis White on 05-12-2025 Interpretation and review of laboratory results Abnormal [facility] Toxicity seen at concentrations >20.0 ug/mL [facility] PHENYTOIN TOTALon 05-12-2025 PHENYTOIN, TOTAL 33.2 ug/mL Critically high 10.0-20.0 [facility] Comment on above: Result Comment: ORDE R COMMENTS:Toxicity seen at concentrations >20.0 ug/mL Performed By: #### L AB31 ####Hose Handler: ORLIN DOMÍNGUEZ ([id number])[facility] (SBHLAB)[address] [place] [address] Progress Noteon 05-12-2025 Progress Note Normal [facility] Progress Note Normal [facility] Progress Note Nutrition rescreen completed. Pt referred to RD for malnutrition. Normal [facility] Progress Note Normal [facility] CBC (HEMOGRAM)on 05-11-2025 Erythrocyte distribution width (RBC) [Ratio] 17.9 % High 11.5-15.0 [facility] Comment on above: Performed By: #### L [id number] ####Hose Handler: ORLIN DOMÍNGUEZ ([id number])[facility]PITALDeepti [place] (SBHLAB)[address] Hematocrit (Bld) [Volume fraction] 32.4 % Low 35.0-47.0 [facility] Comment on above: Performed By: #### L AB294 ####Hose Handler: ORLIN DOMÍNGUEZ ([id number])[facility]ITAL[facility] [place] (SBHLAB)[address] [place] [address] Hemoglobin (Bld) [Mass/Vol] 10.7 g/dL Low 11.7-16.0 [facility] Comment on above: Performed By: #### L AB294 ####Hose Handler: ORLIN DOMÍNGUEZ ([id number])[facility]ITAL[facility] [place] (SBHLAB)[address] [place] [address] MCH (RBC) [Entitic mass] 34.5 pg High 26.0-34.0 [facility] Comment on above: Performed By: #### L AB294 ####Hose Handler: ORLIN DOMÍNGUEZ ([id number])[facility]ITAL[facility] [place] (SBHLAB)[address] [place] [address] MCHC 33.0 % Normal 30.5-36.0 [facility] Comment on above: Performed By: #### L AB294 ####Hose Handler: ORLIN DOMÍNGUEZ ([id number])[facility]ITAL[facility] [place] (SBHLAB)[address] MCV (RBC) [Entitic vol] 104.5 fL High 77.0-99.0 [facility] Comment on above: Performed By: #### L AB294 ####Hose Handler: ORLIN DOMÍNGUEZ ([id number])[place] (SBHLAB)[address] Platelet mean volume (Bld) [Entitic vol] 9.6 fL Normal 9.0-12.7 [facility] Comment on above: Performed By: #### L AB294 ####Hose Handler: ORLIN DOMÍNGUEZ ([id number])[facility]EN[facility] [place] (SBHLAB)[address] Platelets (Bld) [#/Vol] 204 10*3/uL Normal 140-440 [facility] Comment on above: Performed By: #### L AB294 ####Hose Handler: ORLIN DOMÍNGUEZ ([id number])[facility]ITAL[facility] [place] (SBHLAB)[address] RBC (Bld) [#/Vol] 3.10 10*6/uL Low 3.80-5.20 [facility] Comment on above: Performed By: #### L AB294 ####Hose Handler: ORLIN DOMÍNGUEZ ([id number])[facility]ITAL[facility] [place] (SBHLAB)[address] WBC (Bld) [#/Vol] 5.4 10*3/uL Normal 3.6-10.7 [facility] Comment on above: Performed By: #### L AB294 ####Hose Handler: ORLIN DOMÍNGUEZ ([id number])[facility]ITAL[facility] [place] (SBHLAB)[address] CBC panel Auto (Bld)on 05-11 Erythrocyte distribution width (RBC) [Ratio] 17.9 % High 11.5 - 15.0 % [facility] Hematocrit (Bld) [Volume fraction] 32.4 % Low 35.0 - 47.0 % [facility] Hemoglobin (Bld) [Mass/Vol] 10.7 g/dL Low 11.7 - 16.0 g/dL [facility] Interpretation and review of laboratory results Abnormal [facility] MCH (RBC) [Entitic mass] 34.5 pg High 26.0 - 34.0 pg [facility] MCHC (RBC) [Mass/Vol] 33 % 30.5 - 36.0 % [facility] MCV (RBC) [Entitic vol] 104.5 fL High 77.0 - 99.0 fL [facility] Platelet mean volume (Bld) [Entitic vol] 9.6 fL 9.0 - 12.7 fL [facility] Platelets (Bld) [#/Vol] 204 10*3/uL 140 - 440 10*3/uL [facility] RBC (Bld) [#/Vol] 3.1 10*6/uL Low 3.80 - 5.2 0 10*6/uL [facility] WBC (Bld) [#/Vol] 5.4 10*3/uL 3.6 - 10.7 10*3/uL [facility] COMPREHENSIVE METABOLIC PANE Jay 05-11-2025 Albumin [Mass/Vol] 3.0 g/dL Low 3.4-4.8 [facility] Comment on above: Performed By: #### L AB17, LAB69, LAB67, LAB18 ####Hose Handler: ORLIN DOMÍNGUEZ ([id number])[facility] (SBHLAB)[address] ALP [Catalytic activity/Vol] 190 U/L High 40-150 [facility] Comment on above: Performed By: #### L AB17, LAB69, LAB67, LAB18 ####Hose Handler: ORLIN DOMÍNGUEZ ([id number])[facility] (SBHLAB)[address] ALT [Catalytic activity/Vol] 7 U/L Normal <30 [facility] Comment on above: Performed By: #### L AB17, LAB69, LAB67, LAB18 ####Hose Handler: ORLIN DOMÍNGUEZ ([id number])[facility] (SBHLAB)[address] Anion gap [Moles/Vol] 9 mmol/L Normal 3-13 [facility] Comment on above: Performed By: #### L AB17, LAB69, LAB67, LAB18 ####Hose Handler: ORLIN DOMÍNGUEZ ([id number])SUMMDeepti [place] (SBHLAB)[address] AST [Catalytic activity/Vol] 26 U/L Normal <34 [facility] Comment on above: Performed By: #### L AB17, LAB69, LAB67, LAB18 ####Hose Handler: ORLIN DOMÍNGUEZ ([id number])[facility]ITAL[facility] [place] (SBHLAB)[address] Bilirubin [Mass/Vol] 1.2 mg/dL High <1.2 [facility] Comment on above: Performed By: #### L AB17, LAB69, LAB67, LAB18 ####Hose Handler: ORLIN DOMÍNGUEZ ([id number])[facility] [place] (SBHLAB)[address] Calcium [Mass/Vol] 9.1 mg/dL Normal 8.8-10.0 [facility] Comment on above: Performed By: #### L AB17, LAB69, LAB67, LAB18 ####Hose Handler: ORLIN DOMÍNGUEZ ([id number])[facility] (SBHLAB)[address] Chloride [Moles/Vol] 102 mmol/L Normal 98-107 [facility] Comment on above: Performed By: #### L AB17, LAB69, LAB67, LAB18 ####Hose Handler: ORLIN DOMÍNGUEZ ([id number])[facility] (SBHLAB)[address] [place] [address] [place] CO2 [Moles/Vol] 23 mmol/L Normal 23-31 [facility] Comment on above: Performed By: #### L AB17, LAB69, LAB67, LAB18 ####Hose Handler: ORLIN DOMÍNGUEZ ([id number])[facility] (SBHLAB)[address] Creatinine [Mass/Vol] 0.44 mg/dL Low 0.57-1.11 [facility] Comment on above: Performed By: #### L AB17, LAB69, LAB67, LAB18 ####Hose Handler: ORLIN DOMÍNGUEZ ([id number])[facility] (SBHLAB)[address] GLOMERULAR FILTRATION RATE ML/MIN/1.73 SQ M.PREDICTED >90.0 Normal >60.0 [facility] Comment on above: Result Comment: Calc ulation based on the Chronic Kidney Disease Epidemiology Collaboration (CKD-EPI) equation refit without adjustment for race Performed By: #### L AB17, LAB69, LAB67, LAB18 ####Hose Handler: ORLIN DOMÍNGUEZ ([id number])[facility] (SBHLAB)[address] Glucose [Mass/Vol] 106 mg/dL Normal 82-115 [facility] Comment on above: Performed By: #### L AB17, LAB69, LAB67, LAB18 ####Hose Handler: ORLIN DOMÍNGUEZ ([id number])[facility] ([facility])[address] Potassium [Moles/Vol] 3.6 mmol/L Normal 3.5-5.1 [facility] Comment on above: Result Comment: [facility] potassium values may be up to 0.5 mmol/L lower than serum values. Performed By: #### L AB17, LAB69, LAB67, LAB18 ####Hose Handler: ORLIN DOMÍNGUEZ ([id number])[facility] (SBHLAB)[address] [place] [address] [place] Protein [Mass/Vol] 5.7 g/dL Low 6.4-8.3 [facility] Comment on above: Performed By: #### L AB17, LAB69, LAB67, LAB18 ####Hose Handler: ORLIN DOMÍNGUEZ ([id number])[facility] ([facility])[address] Sodium [Moles/Vol] 134 mmol/L Low 136-145 [facility] Comment on above: Performed By: #### L AB17, LAB69, LAB67, LAB18 ####Hose Handler: ORLIN DOMÍNGUEZ ([id number])[facility]ITAL[facility] [place] (SBHLAB)[address] Urea nitrogen [Mass/Vol] 10 mg/dL Normal - [facility] Comment on above: Performed By: #### L AB17, LAB69, LAB67, LAB18 ####Hose Handler: ORLIN DOMÍNGUEZ ([id number])[facility]ITALDeept[facility] (SBHLAB)[address] HIP RIGHT WO IV CONTRASTo n 05-11-2025 CT HIP RIGHT WO IV CONTRAST Normal [facility] CT Hip - right WO contraston 05-11-2025 Impression: No evidence for acute fracture or dislocation. Diffuse osteopenia Report Dictated on Electronically Signed By: Osmar Blake MD Electronically Signed Date/Time: 05/11/2025 2:49 PM EDT [facility] Patient Name: MADAY ALFARO : 1940 [...] associated osteophyte formation of the femoral head. [facility] Osmar Blake MD - 05/11/2025 [...] Report Dictated on Electronically Signed By: Osmar Balke MD Electronically Signed Date/Time: 05/11/2025 2:49 PM EDT [facility] Radiology Study observation (narrative) [facility]th Cobalamin (Vitamin B12) [Mas s/Vol]on 05-11-2025 Interpretation and review of laboratory results Normal [facility] Comprehensive metabolic 1998 panelon 05-11-2025 Albumin [Mass/Vol] 3 g/dL Low 3.4 - 4.8 g/dL [facility] ALP [Catalytic activity/Vol] 190 U/L High 40 - 150 U/L [facility] ALT [Catalytic activity/Vol] 7 U/L NINF - 30 U/L [facility] Anion gap [Moles/Vol] 9 mmol/L 3 - 13 mmol/L [facility] AST [Catalytic activity/Vol] 26 U/L NINF - 34 U/L [facility] Bilirubin [Mass/Vol] 1.2 mg/dL [facility] mg/dL [facility] Calcium [Mass/Vol] 9.1 mg/dL 8.8 - 10. 0 mg/dL [facility] Chloride [Moles/Vol] 102 mmol/L 98 - 10 7 mmol/L [facility] CO2 [Moles/Vol] 23 mmol/L 23 - 31 mmol/L [facility] Creatinine [Mass/Vol] 0.44 mg/dL Low 0.57 - 1.11 mg/dL [facility] GFR/1.73 sq M.predicted (S/P/Bld) [Vol rate/Area] - PINF [facility] Comment on above: Calculation based on the Chronic Kidney Disease Epidemiology Collaboration (CKD-EPI) equation refit without adjustment for race Glucose [Mass/Vol] 106 mg/dL 82 - 115 mg/dL [facility] Interpretation and review of laboratory results Abnormal [facility] Potassium [Moles/Vol] 3.6 mmol/L 3.5 - 5.1 mmol/L [facility] Comment on above: Plasma potassium dede ues may be up to 0.5 mmol/L lower than serum values. Protein [Mass/Vol] 5.7 g/dL Low 6.4 - 8.3 g/dL [facility] Sodium [Moles/Vol] 134 mmol/L Low 136 - 145 mmol/L [facility] Urea nitrogen [Mass/Vol] 10 mg/dL 9 - 23 mg/dL [facility] Consulton 05-11-2025 Consult Normal [facility] FOLATEon 05-11-2025 FOLATE RESULT 4.3 ng/mL Low 7.0-31.4 [facility] Comment on above: Result Comment: TCSi gnificant interference from hemolysis. Result integrity compromised. Interpret with caution. Performed By: #### L AB17, LAB69, LAB67, LAB18 ####Hose Handler: ORLIN DOMÍNGUEZ ([id number])[facility] ([facility])[address] [place] [address] Folate [Mass/Vol]on 05-11-20 Interpretation and review of laboratory results Abnormal [facility] HEMOGLOBIN A1Con 05-11-2025 Glucose [Mass/Vol] 77 mg/dL Normal [facility] Comment on above: Result Comment: CHERELLE Zepeda COMMENTS:HbA1c values of 5.7-6.4 percent indicate an increased risk for developing diabetes mellitus. HbA1c values greater than or equal to 6.5 percent are diagnostic of diabetes mellitus. For diagnosis of diabetes in individuals without unequivocal hyperglycemia, results should be confirmed by repeat testing. Performed By: #### L AB90 ####Hose Handler: ORLIN DOMÍNGUEZ ([id number])[facility] ([facility])[address] [place] [address] HEMOGLOBIN A1C 4.3 %HbA1C Normal <5.7 [facility] Comment on above: Result Comment: Norm al less than 5.7%Prediabetes 5.7% to 6.4%Diabetes 6.5% or higher--HgbA1C levels may not be accurate in patients who have renal disease, received recent blood transfusions, are anemic, or who have dyshemoglobinemia. Performed By: #### L AB90 ####Hose Handler: ORLIN DOMÍNGUEZ ([id number])[facility]ITALDeept[facility] (SBHLAB)[address] LIPID PANELon 05-11-2025 Cholesterol [Mass/Vol] 178 mg/dL Normal <200 [facility] Comment on above: Performed By: #### L AB17, LAB69, LAB67, LAB18 ####Hose Handler: ORLIN DOMÍNGUEZ ([id number])[facility] (SBHLAB)[address] Cholesterol in HDL [Mass/Vol] 72 mg/dL Normal >=60 [facility] Comment on above: Performed By: #### L AB17, LAB69, LAB67, LAB18 ####Hose Handler: ORLIN DOMÍNGUEZ ([id number])[facility]ITAL[facility] [place] (SBHLAB)[address] Cholesterol.total/Mary sterol in HDL [Mass ratio] 2 {ratio} Normal [facility] Comment on above: Result Comment: Ref Range:< 3 Low Risk for CHD3-6 Mod Risk for CHD> 6 High Risk for CHD Performed By: #### L AB17, LAB69, LAB67, LAB18 ####Hose Handler: ORLIN DOMÍNGUEZ ([id number])[facility] (SBHLAB)[address] LOW DENSITY LIPOPROTEIN 96 mg/dL Normal 0-<100 [facility] Comment on above: Performed By: #### L AB17, LAB69, LAB67, LAB18 ####Hose Handler: ORLIN DOMÍNGUEZ ([id number])[facility] (SBHLAB)[address] NON-HDL CHOLESTEROL, CALCULATED 106 Normal <130 [facility] Comment on above: Performed By: #### L AB17, LAB69, LAB67, LAB18 ####Hose Handler: ORLIN DOMÍNGUEZ ([id number])[facility] [place] (SBHLAB)[address] Triglyceride [Mass/Vol] 50 mg/dL Normal <150 [facility] Comment on above: Performed By: #### L AB17, LAB69, LAB67, LAB18 ####Hose Handler: ORLIN DOMÍNGUEZ ([id number])[facility] (SBHLAB)[address] VERY LOW DENSITY LIPOPROTEIN, CALCULATED 10 mg/dL Normal <=30 [facility] Comment on above: Performed By: #### L AB17, LAB69, LAB67, LAB18 ####Hose Handler: ORLIN DOMÍNGUEZ ([id number])[facility]ITAL[facility] (SBHLAB)[address] Laboratory - Chemistry and C hemistry - challengeon 05-11-2025 Cobalamin (Vitamin B12) [Mass/Vol] 349 pg/mL 213 - 816 pg/mL [facility] Comment on above: TC Significant interference from hemolysis. Result integrity compromised. Interpret with caution. Folate [Mass/Vol] 4.3 ng/mL Low 7.0 - 31.4 ng/mL [facility] Comment on above: TC Significant interference from hemolysis. Result integrity compromised. Interpret with caution. Average glucose Estimated from glycated hemoglobin (Bld) [Mass/Vol] 77 mg/dL [facility] Laboratory - Drug toxicology Ordered By: Micheal Lemus on 05-11-2025 Phenytoin [Mass/Vol] 36.6 ug/mL Critically high 10.0 - 20.0 ug/mL [facility] Laboratory - Hematology and Cell countson 05-11-2025 HbA1c (Bld) [Mass fraction] 4.3 % [place] Comment on above: Normal less than 5.7 % Prediabetes 5.7% to 6.4% Diabetes 6.5% or higher --HgbA1C levels may not be accurate in patients who have renal disease, received recent blood transfusions, are anemic, or who have dyshemoglobinemia. Lipid 1996 panelon 5 Cholesterol [Mass/Vol] 178 mg/dL [facility] - 200 mg/dL [facility] Cholesterol in HDL [Mass/Vol] 72 mg/dL 60 - PINF mg/dL [facility] XOJET Cholesterol in LDL [Mass/Vol] 96 mg/dL 0 - <100 [facility] Cholesterol.total/Mary sterol in HDL [Mass ratio] 2 {ratio} [facility] Comment on above: Ref Range: < 3 Low Risk for CHD 3-6 Mod Risk for CHD > 6 High Risk for CHD NON-HDL CHOLESTEROL, CALCULATED 106 NINF - 130 [facility] Triglyceride [Mass/Vol] 50 mg/dL NINF - 150 mg/dL [facility] XOJET VERY LOW DENSITY LIPOPROTEIN, CALCULATED 10 mg/dL NINF - 30 mg/dL [facility] No Panel InformationOrdered By: Micheal Lemus on 05-11-2025 Interpretation and review of laboratory results Abnormal [facility] Toxicity seen at concentrations >20.0 ug/mL [facility] No Panel Informationon 05-11 [facility] HbA1c values of 5.7-6.4 percent indicate an increased risk for developing diabetes mellitus. HbA1c values greater than or equal to 6.5 percent are diagnostic of diabetes mellitus. For diagnosis of diabetes in individuals without unequivocal hyperglycemia, results should be confirmed by repeat testing. [facility] P Hagaman 35 degrees [facility] KS Interval 192 ms [facility] QRS Hagaman -60 degrees [facility] QRSD Interval 93 ms [facility] QT Interval 415 ms [facility] QTC Interval 440 ms [facility] T Wave Hagaman 52 degrees [facility] Derick Reis MD - 05/11/2025 IMPRESSION: Sinus rhythm Left anterior fascicular block Abnormal R-wave progression, early transition Electronically Signed On 05-11-2025 01:13:38 EDT by Derick Reis [facility] PHENYTOIN TOTALon 05-11-2025 PHENYTOIN, TOTAL 36.6 ug/mL Critically high 10.0-20.0 [facility] Comment on above: Result Comment: CHERELLE Zepeda COMMENTS:Daily morning trough dilantin (total) level until order is stopped.Dr. Rosario PhersonToxicity seen at concentrations >20.0 ug/mL Performed By: #### L [id number] ####Hose Handler: ORLIN DOMÍNGUEZ ([id number])FABIENNE PICKETT (SBHLAB)[address] Progress Noteon 05-11-2025 Progress Note Normal [facility] VITAMIN B12on 05-11-2025 Cobalamin (Vitamin B12) [Mass/Vol] 349 pg/mL Normal 213-816 [facility] Comment on above: Result Comment: TCSi gnificant interference from hemolysis. Result integrity compromised. Interpret with caution. Performed By: #### L AB17, LAB69, LAB67, LAB18 ####Hose Handler: ORLIN DOMÍNGUEZ ([id number])[facility]PITAL[facility] (SBHLAB)[address] Vital signson 05-11-2025 Heart rate 68 /min bpm [facility] [employer] CBC W Auto Differential pane l (Bld)Ordered By: Lane Manriquez on 05-10-2025 Basophils (Bld) [#/Vol] 0 10*3/uL 0.0 - 0.2 10*3/uL [employer] Basophils/100 WBC (Bld) 0.3 % 0.0 - 2.0 % [facility] [employer] Eosinophils (Bld) [#/Vol] 0.1 10*3/uL 0.0 - 0.5 10*3/uL [employer] Eosinophils/100 WBC (Bld) 0.9 % 0.0 - 6.0 % [facility] [employer] Erythrocyte distribution width (RBC) [Ratio] 17.9 % High 11.5 - 15.0 % [employer] Hematocrit (Bld) [Volume fraction] 35.5 % 35.0 - 47.0 % [employer] Hemoglobin (Bld) [Mass/Vol] 11.7 g/dL 11.7 - 16.0 g/dL [facility] [employer] Immature granulocytes (Bld) [#/Vol] 0 10*3/uL NINF - 0.1 10*3/uL [employer] Immature granulocytes/100 WBC (Bld) 0.5 % 0.0 - 2.0 % [facility] [employer] Interpretation and review of laboratory results Abnormal [facility] [employer] Lymphocytes (Bld) [#/Vol] 0.7 10*3/uL Low 1.0 - 4.3 10*3/uL [employer] Lymphocytes/100 WBC (Bld) 9.8 % Low 15.0 - 45.0 % [facility] MCH (RBC) [Entitic mass] 34.8 pg High 26.0 - 34.0 pg [facility] MCHC (RBC) [Mass/Vol] 33 % 30.5 - 36.0 % [facility] MCV (RBC) [Entitic vol] 105.7 fL High 77.0 - 99.0 fL [facility] Monocytes (Bld) [#/Vol] 1 10*3/uL High 0.0 - 0.9 10*3/uL [facility] Monocytes/100 WBC (Bld) 13 % 5.0 - 13.0 % [facility] Neutrophils (Bld) [#/Vol] 5.7 10*3/uL 1.8 - 7.5 10*3/uL [facility] Neutrophils/100 WBC (Bld) 75.5 % 38.0 - 82.0 % [facility] Nucleated RBC/100 WBC (Bld) [Ratio] 0 % [facility] Platelet mean volume (Bld) [Entitic vol] 9.4 fL 9.0 - 12.7 fL [facility] Platelets (Bld) [#/Vol] 215 10*3/uL 140 - 440 10*3/uL [facility] RBC (Bld) [#/Vol] 3.36 10*6/uL Low 3.80 - 5.2 0 10*6/uL [facility] WBC (Bld) [#/Vol] 7.6 10*3/uL 3.6 - 10.7 10*3/uL [facility] CBC WITH AUTO DIFFERENTIALon 05-10-2025 Basophils (Bld) [#/Vol] 0.0 10*3/uL Normal 0.0-0.2 [facility] Comment on above: Performed By: #### L [id number] ####Hose Handler: ORLIN DOMÍNGUEZ ([id number])[facility]PITALD[facility]pti [place] ([facility])[address] [place] [address] Basophils/100 WBC (Bld) 0.3 % Normal 0.0-2.0 [facility] Comment on above: Performed By: #### L [id number] ####Hose Handler: ORLIN DOMÍNGUEZ ([id number])[facility] (SBHLAB)[address] Eosinophils (Bld) [#/Vol] 0.1 10*3/uL Normal 0.0-0.5 [facility] Comment on above: Performed By: #### L [id number] ####Hose Handler: ORLIN DOMÍNGUEZ ([id number])[facility]OSPITALA [facility] (SBHLAB)[address] Eosinophils/100 WBC (Bld) 0.9 % Normal 0.0-6.0 [facility] Comment on above: Performed By: #### L [id number] ####Hose Handler: ORLIN DOMÍNGUEZ ([id number])[facility])[address] [place] [address] Erythrocyte distribution width (RBC) [Ratio] 17.9 % High 11.5-15.0 [facility] Comment on above: Performed By: #### L [id number] ####Hose Handler: ORLIN DOMÍNGUEZ ([id number])[facility] ([facility])[address] [place] [address] Hematocrit (Bld) [Volume fraction] 35.5 % Normal 35.0-47.0 [facility] Comment on above: Performed By: #### L [id number] ####Hose Handler: ORLIN DOMÍNGUEZ ([id number])[facility])[address] [place] [address] Hemoglobin (Bld) [Mass/Vol] 11.7 g/dL Normal 11.7-16.0 [facility] Comment on above: Performed By: #### L [id number] ####Hose Handler: ORLIN DOMÍNGUEZ ([id number])[facility] BARB[facility] FACILITYN (SBAB)[address] IMMATURE GRANS % 0.5 % Normal 0.0-2.0 [facility] Comment on above: Performed By: #### L [id number] ####Hose Handler: ORLIN DOMÍNGUEZ ([id number])[facility] [place] (SBHLAB)[address] IMMATURE GRANS ABSOLUTE 0.0 10*3/uL Normal <0.1 [facility] Comment on above: Performed By: #### L [id number] ####Hose Handler: ORLIN GUILLORYANTOINETTE ([id number])[facility] HOSPITALDeepti [place] (SBHLAB)[address] Lymphocytes (Bld) [#/Vol] 0.7 10*3/uL Low 1.0-4.3 [facility] Comment on above: Performed By: #### L [id number] ####Hose Handler: ORLIN DOMÍNGUEZ ([id number])[facility]PITALDeepti [place] (SBHLAB)[address] Lymphocytes/100 WBC (Bld) 9.8 % Low 15.0-45.0 [facility] Comment on above: Performed By: #### L [id number] ####Hose Handler: ORLIN DOMÍNGUEZ ([id number])[facility]ITALDeepti [place] (SBHLAB)[address] MCH (RBC) [Entitic mass] 34.8 pg High 26.0-34.0 [facility] Comment on above: Performed By: #### L [id number] ####Hose Handler: ORLIN GUILLORYANTOINETTE ([id number])[facility]ITALDeepti [place] (SBHLAB)[address] MCHC 33.0 % Normal 30.5-36.0 [facility] Comment on above: Performed By: #### L [id number] ####Hose Handler: ORLIN DOMÍNGUEZ ([id number])[facility]PITALDeepti [place] (SBHLAB)[address] MCV (RBC) [Entitic vol] 105.7 fL High 77.0-99.0 [facility] Comment on above: Performed By: #### L [id number] ####Hose Handler: ORLIN DOMÍNGUEZ ([id number])[facility]ITALA [facility]BCROWNPOINT [facility]ACILITYN (SBHLAB)[address] Monocytes (Bld) [#/Vol] 1.0 10*3/uL High 0.0-0.9 [facility] Comment on above: Performed By: #### L [id number] ####Hose Handler: ORLIN DOMÍNGUEZ ([id number])[facility] [place] (SBHLAB)[address] Monocytes/100 WBC (Bld) 13.0 % Normal 5.0-13.0 [facility] Comment on above: Performed By: #### L [id number] ####Hose Handler: ORLIN DOMÍNGUEZ ([id number])[facility] [place] (SBHLAB)[address] NEUTROPHILS ABSOLUTE 5.7 10*3/uL Normal 1.8-7.5 [facility] Comment on above: Performed By: #### L [id number] ####Hose Handler: ORLIN DOMÍNGUEZ ([id number])[facility]PITALA [place] (SBHLAB)[address] Neutrophils/100 WBC (Bld) 75.5 % Normal 38.0-82.0 [facility] Comment on above: Performed By: #### L [id number] ####Hose Handler: ORLIN DOMÍNGUEZ ([id number])[facility] [place] (SBHLAB)[address] NRBC 0.0 /100 WBCs Normal 0.0-2.0 [facility] Comment on above: Performed By: #### L [id number] ####Hose Handler: ORLIN DOMÍNGUEZ ([id number])[facility]PITALA [place] (SBHLAB)[address] [place] [address] [place] Platelet mean volume (Bld) [Entitic vol] 9.4 fL Normal 9.0-12.7 [facility] Comment on above: Performed By: #### L [id number] ####Hose Handler: ORLIN DOMÍNGUEZ ([id number])[facility] [place] (SBHLAB)[address] Platelets (Bld) [#/Vol] 215 10*3/uL Normal 140-440 [facility] Comment on above: Performed By: #### L [id number] ####Hose Handler: ORLIN DOMÍNGUEZ ([id number])[facility]ITALA [place] (SBHLAB)[address] RBC (Bld) [#/Vol] 3.36 10*6/uL Low 3.80-5.20 [facility] Comment on above: Performed By: #### L [id number] ####Hose Handler: ORLIN DOMÍNGUEZ ([id number])[facility]ITALA [place] (SBHLAB)[address] WBC (Bld) [#/Vol] 7.6 10*3/uL Normal 3.6-10.7 [facility] Comment on above: Performed By: #### L [id number] ####Hose Handler: ORLIN DOMÍNGUEZ ([id number])[facility]PITALA [place] (SBHLAB)[address] COMPLETE URINALYSIS WITH REF FARHAT TO CULTURE 05-10-2025 AMORPHOUS CRYSTALS (#/HPF) IN URINE Few Abnormal Negative [facility] Comment on above: Performed By: #### L [id number] ####Hose Handler: ORLIN DOMÍNGUEZ ([id number])[facility]PITALA [place] (SBHLAB)[address] BACTERIA (#/HPF) IN URINE Few Abnormal Negative [facility] Comment on above: Performed By: #### L [id number] ####Hose Handler: ORLIN DOMÍNGUEZ ([id number])[facility]ITALA [place] (SBHLAB)[address] BILIRUBIN, TOTAL PRESENCE IN URINE Negative Normal Negative [facility] Comment on above: Performed By: #### L [id number] ####Hose Handler: ORLIN DOMÍNGUEZ ([id number])[facility]ITALA [place] (SBHLAB)[address] Clarity (U) Turbid Abnormal Clear [facility] Comment on above: Performed By: #### L [id number] ####Hose Handler: ORLIN DOMÍNGUEZ ([id number])[facility] ([facility])[address] Color (U) Yellow Normal Lt. Yellow [facility] Comment on above: Performed By: #### L [id number] ####Hose Handler: ORLIN DOMÍNGUEZ ([id number])[facility] ([facility])[address] GLUCOSE (MG/DL) IN URINE Normal Normal Normal (<70) [facility] Comment on above: Performed By: #### L [id number] ####Hose Handler: ORLIN DOMÍNGUEZ ([id number])[facility] ([facility])[address] [place] [address] HEMOGLOBIN PRESENCE IN URINE 0.03 mg/dL Abnormal Negative [facility] Comment on above: Performed By: #### L [id number] ####Hose Handler: ORLIN DOMÍNGUEZ ([id number])[facility] ([facility])[address] [place] [address] HYALINE CASTS (#/LPF) IN URINE SEDIMENT BY MICROSCOPY 0-2 Abnormal Negative [facility] Comment on above: Performed By: #### L [id number] ####Hose Handler: ORLIN DOMÍNGUEZ ([id number])[facility] ([facility])[address] Ketones Ql (U) Negative Normal Negative [facility] Comment on above: Performed By: #### L [id number] ####Hose Handler: ORLIN DOMÍNGUEZ ([id number])[facility] ([facility])[address] [place] [address] LEUKOCYTE ESTERASE PRESENCE IN URINE BY TEST STRIP Negative Normal Negative [facility] Comment on above: Performed By: #### L [id number] ####Hose Handler: ORLIN DOMÍNGUEZ ([id number])[facility]ITALA [place] (SBHLAB)[address] [place] [address] [place] MUCUS (#/LPF) IN URINE SEDIMENT Few Normal Negative [facility] Comment on above: Performed By: #### L [id number] ####Hose Handler: ORLIN DOMÍNGUEZ ([id number])[facility]OSPITALDeepti [facility] (SBHLAB)[address] NITRITE PRESENCE IN URINE Negative Normal Negative [facility] Comment on above: Performed By: #### L [id number] ####Hose Handler: ORLIN DOMÍNGUEZ ([id number])[facility]ITALA [facility] (SBHLAB)[address] pH (U) 7.0 [pH] Normal 5.0-8.0 [facility] Comment on above: Performed By: #### L [id number] ####Hose Handler: ORLIN DOMÍNGUEZ ([id number])[facility] (SBHLAB)[address] Protein (U) [Mass/Vol] Negative Normal Negative [facility] Comment on above: Performed By: #### L [id number] ####Hose Handler: ORLIN DOMÍNGUEZ ([id number])[facility] (HLAB)[address] RBC (#/HPF) IN URINE SEDIMENT 3-5 Abnormal 0-2 [facility] Comment on above: Performed By: #### L [id number] ####Hose Handler: ORLIN DOMÍNGUEZ ([id number])[facility] (SBHLAB)[address] Specific gravity (U) [Rel density] 1.012 Normal 1.005-1.030 [facility] Comment on above: Result Comment: CHERELLE Zepeda COMMENTS:A specimen with <=10 WBC is not consistent with inflammation. This specimen will not reflex to a urine culture. Performed By: #### L [id number] ####Hose Handler: ORLIN DOMÍNGUEZ ([id number])[facility] [place] (SBHLAB)[address] SQUAMOUS EPITHELIAL CELLS (#/HPF) IN URINE SEDIMENT 0-2 Normal 3-5 [facility] Comment on above: Performed By: #### L [id number] ####Hose Handler: ORLIN DOMÍNGUEZ ([id number])[facility]ITALA [place] (SBHLAB)[address] UROBILINOGEN (MG/DL) IN URINE 6 mg/dL Abnormal Normal (0-1) [facility] Comment on above: Performed By: #### L [id number] ####Hose Handler: ORLIN DOMÍNGUEZ ([id number])[facility]ITALA [place] (SBHLAB)[address] WBC (LEUKOCYTE) (#/HPF) IN URINE SEDIMENT 3-5 Normal 0-5 [facility] Comment on above: Performed By: #### L [id number] ####Hose Handler: ORLIN DOMÍNGUEZ ([id number])[facility]ITALA [place] (SBHLAB)[address] COMPREHENSIVE METABOLIC PANE Jay 05-10-2025 Albumin [Mass/Vol] 3.2 g/dL Low 3.4-4.8 [facility] Comment on above: Performed By: #### L [id number], LAB17 ####Hose Handler: ORLIN DOMÍNGUEZ ([id number])[facility]A [place] (SBHLAB)[address] ALP [Catalytic activity/Vol] 211 U/L High 40-150 [facility] Comment on above: Performed By: #### L [id number], LAB17 ####Hose Handler: ORLIN DOMÍNGUEZ ([id number])[facility]A [place] (SBHLAB)[address] ALT [Catalytic activity/Vol] 11 U/L Normal <30 [facility] Comment on above: Performed By: #### L [id number], LAB17 ####Hose Handler: ORLIN DOMÍNGUEZ ([id number])[facility] [place] (SBHLAB)[address] Anion gap [Moles/Vol] 10 mmol/L Normal 3-13 [facility] Comment on above: Performed By: #### L [id number], LAB17 ####Hose Handler: ORLIN DOMÍNGUEZ ([id number])[facility]OSPITALDeepti [facility] (SBHLAB)[address] AST [Catalytic activity/Vol] 33 U/L Normal <34 [facility] Comment on above: Result Comment: TCPo tential interference from hemolysis Performed By: #### L [id number], LAB17 ####Hose Handler: ORLIN DOMÍNGUEZ ([id number])[facility]ITALA [facility]CR[facility]POINT [facility] (SBHLAB)[address] Bilirubin [Mass/Vol] 1.3 mg/dL High <1.2 [facility] Comment on above: Performed By: #### L [id number], LAB17 ####Hose Handler: ORLIN DOMÍNGUEZ ([id number])[facility]PITALDeepti [facility] (SBHLAB)[address] Calcium [Mass/Vol] 9.5 mg/dL Normal 8.8-10.0 [facility] Comment on above: Performed By: #### L [id number], LAB17 ####Hose Handler: ORLIN DOMÍNGUEZ ([id number])[facility]ITALA [place] (SBHLAB)[address] [place] [address] [place] Chloride [Moles/Vol] 98 mmol/L Normal 98-107 [facility] Comment on above: Performed By: #### L [id number], LAB17 ####Hose Handler: ORLIN DOMÍNGUEZ ([id number])[facility]A [place] (SBHLAB)[address] [place] [address] [place] CO2 [Moles/Vol] 24 mmol/L Normal 23-31 [facility] Comment on above: Performed By: #### L [id number], LAB17 ####Hose Handler: ORLIN DOMÍNGUEZ ([id number])[facility]ITALDeepti [place] (SBHLAB)[address] Creatinine [Mass/Vol] 0.61 mg/dL Normal 0.57-1.11 [facility] Comment on above: Performed By: #### L [id number], LAB17 ####Hose Handler: ORLIN DOMÍNGUEZ ([id number])[facility]ITALDeepti [place] (SBHLAB)[address] [place] [address] [place] GLOMERULAR FILTRATION RATE ML/MIN/1.73 SQ M.PREDICTED 88.8 mL/min/1.73m*2 Normal >60.0 [facility] Comment on above: Result Comment: Calc ulation based on the Chronic Kidney Disease Epidemiology Collaboration (CKD-EPI) equation refit without adjustment for race Performed By: #### L [id number], LAB17 ####Hose Handler: ORLIN DOMÍNGUEZ ([id number])[facility] (SBHLAB)[address] Glucose [Mass/Vol] 209 mg/dL High 82-115 [facility] Comment on above: Performed By: #### L [id number], LAB17 ####Hose Handler: ORLIN DOMÍNGUEZ ([id number])[facility] ([facility])[address] Potassium [Moles/Vol] 4.3 mmol/L Normal 3.5-5.1 [facility] Comment on above: Result Comment: [facility] potassium values may be up to 0.5 mmol/L lower than serum values. Performed By: #### L [id number], LAB17 ####Hose Handler: ORLIN DOMÍNGUEZ ([id number])[facility] (SBHLAB)[address] [place] [address] [place] Protein [Mass/Vol] 6.4 g/dL Normal 6.4-8.3 [facility] Comment on above: Performed By: #### L [id number], LAB17 ####Hose Handler: ORLIN DOMÍNGUEZ ([id number])[facility] (SBHLAB)[address] Sodium [Moles/Vol] 132 mmol/L Low 136-145 [facility] Comment on above: Performed By: #### L [id number], LAB17 ####Hose Handler: ORLIN DOMÍNGUEZ ([id number])[facility] (SBHLAB)[address] Urea nitrogen [Mass/Vol] 12 mg/dL Normal 9-23 [facility] Comment on above: Performed By: #### L [id number], LAB17 ####Hose Handler: ORLIN DOMÍNGUEZ ([id number])[facility] (SBHLAB)[address] CERVICAL SPINE WO IV CONT RASTon 05-10-2025 CT CERVICAL SPINE WO IV CONTRAST Normal [facility] CT Cervical spine WO contras ton [...] MD Electronically Signed Date/Time: 05/10/2025 7:37 PM [facility] Name[facility]AD[facility] 1940 [id number] Exam Date/Time: 05/10/2025 18:29 Procedure: CT CERVICAL [...] 1.5 cm nodule left lung apex medially.. [facility] Pardeep Chun MD - 05/10/2025 Patient [...] Electronically Signed Date/Time: 05/10/2025 7:37 PM EDT [facility] Radiology Study observation (narrative) [facility] CT Cervical spine WO contras tOrdered By: Pardeep Chun on 05-10-2025 [facility] [employer] Work Phone: CT HEAD WO IV CONTRASTon CT HEAD WO IV CONTRAST Normal [facility] CT Head WO contraston 2024 1. Atrophy and evidence of small-vessel ischemic disease. This is not unusual for patient age. 2. No CT evidence of an acute intracranial process. Report Dictated on Electronically Signed By: Yasmani Churchill MD Electronically Signed Date/Time: 05/10/2025 3:16 PM EDT [facility] Patient Name: MADAY AL[facility]ARO : 1940 [id number] Exam Date/Time: 05/10/2025 14:20 Procedure: CT HEAD [...] sinuses and mastoid air cells are clear. [facility] Yasmani Churchill MD - 05/10/2025 [...] Electronically Signed Date/Time: 05/10/2025 3:16 PM EDT [facility] Radiology Study observation (narrative) [facility] CT LUMBAR SPINE WO IV CONTRA STon 05-10-2025 CT LUMBAR SPINE WO IV CONTRAST Normal [facility] CT Lumbar spine WO contrasto n [...] Electronically Signed Date/Time: 05/10/2025 7:50 PM EDT [employer] [facility] Patient Name: MADAY ALFARO : 1940 [...] Abdominal aorta measures up to 3.0 cm. [facility] Pardeep Chun MD - 05/10/2025 Patient Name: [facility]ADAY [facility]AR[facility] 1940 [id number] Exam Date/Time: 05/10/2025 18:29 Procedure: CT LUMBAR [...] Electronically Signed Date/Time: 05/10/2025 7:50 PM EDT [facility] Radiology Study observation (narrative) [facility] CT THORACIC SPINE WO IV CONT RASTon 05-10-2025 CT THORACIC SPINE WO IV CONTRAST Normal [facility] CT Thoracic spine WO contras ton [...] Electronically Signed Date/Time: 05/10/2025 8:08 PM EDT [facility] [employer] [facility] Patient Name: MADAY ALFARO : 1940 [id number] Exam Date/Time: 05/10/2025 18:29 Procedure: CT THORACIC [...] left lung apex medially which is irregular. [facility] Destiny Garcia MD - 05/10/2025 Patient Name: MADAY ALFARO : 1940 [id number] Exam Date/Time: 05/10/2025 18:29 Procedure: CT THORACIC [...] Electronically Signed Date/Time: 05/10/2025 8:08 PM EDT [facility] Radiology Study observation (narrative) [facility] metabolic 1998 panelon 05-10-2025 Albumin [Mass/Vol] 3.2 g/dL Low 3.4 - 4.8 g/dL [facility] ALP [Catalytic activity/Vol] 211 U/L High 40 - 150 U/L [facility] ALT [Catalytic activity/Vol] 11 U/L NINF - 30 U/L [facility] Anion gap [Moles/Vol] 10 mmol/L 3 - 13 mmol/L [facility] AST [Catalytic activity/Vol] 33 U/L [facility] - 34 U/L [facility] Comment on above: TC Potential interference from hemolysis Bilirubin [Mass/Vol] 1.3 mg/dL High NINF - 1.2 mg/dL [facility] Calcium [Mass/Vol] 9.5 mg/dL 8.8 - 10. 0 mg/dL [facility] Chloride [Moles/Vol] 98 mmol/L 98 - 10 7 mmol/L [facility] CO2 [Moles/Vol] 24 mmol/L 23 - 31 mmol/L [facility] Creatinine [Mass/Vol] 0.61 mg/dL 0.57 - 1.11 mg/dL [facility] GFR/1.73 sq M.predicted (S/P/Bld) [Vol rate/Area] 88.8 mL/min - PINF [facility] Comment on above: Calculation based on the Chronic Kidney Disease Epidemiology Collaboration (CKD-EPI) equation refit without adjustment for race Glucose [Mass/Vol] 209 mg/dL High 82 - 115 mg/dL [facility] Interpretation and review of laboratory results Abnormal [facility] Potassium [Moles/Vol] 4.3 mmol/L 3.5 - 5.1 mmol/L [facility] Comment on above: Plasma potassium dede ues may be up to 0.5 mmol/L lower than serum values. Protein [Mass/Vol] 6.4 g/dL 6.4 - 8.3 g/dL [facility] Sodium [Moles/Vol] 132 mmol/L Low 136 - 145 mmol/L [facility] Urea nitrogen [Mass/Vol] 12 mg/dL 9 - 23 mg/dL [facility] ECG 12-LEADon 05-10-2025 ECG 12-LEAD IMPRESSION: Sinus rhythm Left anterior fascicular block Anteroseptal infarct, age indeterminate Electronically Signed On 05-10-2025 20:31:48 EDT by Derick Reis ED Nursing Noteon 05-10-2025 ED Nursing Note [place] [facility] Ann[place] spence called back on Ashley RN on phone confirmed 200 mg of Dilantin 2x a day Normal [facility] ED Nursing Note Jessica applied. Pt tolerated without difficulty. Normal [facility] ED Nursing Note Last known well per family a couple days ago. ED Nursing Note Dr Castaneda at bedside. ED Nursing Note Dr Painter at bedside. ED Nursing Note Introduced myself as pt liaison and explained role and provided support to family , pt arrived via EMS. Normal [facility] ED Nursing Note Normal [facility] ED Provider Noteon ED Provider Note Normal [facility] HIGH SENSITIVITY TROPONIN, S ERIAL BASELINEon 05-10-2025 TROPONIN HS SERIAL BASELINE <3 Normal <=14 [facility] Comment on above: Result Comment: In i ndividuals presenting with symptoms > 2h, a baseline troponin <= 5 ng/L suggests acutecardiac injury is unlikely and further serial testing is generally not indicated. Performed By: #### L [id number], [id number] ####Hose Handler: ORLIN DOMÍNGUEZ ([id number])[facility]OSPITALDeepti PICKETT ([address] HIGH SENSITIVITY TROPONIN, S ERIAL, SECOND TESTon 05-10-2025 2H TROPONIN HS (SERIAL 2ND TROPONIN) <3 Normal <=14 [facility] Comment on above: Result Comment: Delt a value was unable to be calculated as both baseline and serial troponin tests were below the level of quantitation. As both baseline and 2h troponin values are below the level of quantitation, acute cardiac injury is unlikely. Performed By: #### L [id number] ####Hose Handler: ORLIN DOMÍNGUEZ ([id number])SUMMDeepti PICKETT (SBHLAB)[address] LACTIC ACID WITH REFLEXon Lactate [Moles/Vol] 1.6 mmol/L Normal 0.5-2.2 [facility] Comment on above: Performed By: #### L [id number] ####Hose Handler: ORLIN DOMÍNGUEZ ([id number])[facility]PITALDeepti PICKETT (SBHLAB)[address] Laboratory - Chemistry and C hemistry - challengeon 05-10-2025 Lactate [Moles/Vol] 1.6 mmol/L 0.5 - 2. 2 mmol/L [facility] Glucose [Mass/Vol] 200 mg/dL High 70 - 100 mg/dL [facility] Laboratory - Coagulationon 0 05-10-2025 aPTT Coag (PPP) [Time] 29.8 s 20.0 - 30.5 s [facility] INR Coag (PPP) [Relative time] 1 {INR} 0.9 - 1.1 [facility] Comment on above: Recommended Anticoag ulant [...] [Time] 10.9 s 9.0 - 12.0 s [facility] Laboratory - Drug toxicology Ordered By: Karmen Aleman on 05-10-2025 Phenytoin [Mass/Vol] 49.6 ug/mL Critically high 10.0 - 20.0 ug/mL [facility] No Panel InformationOrdered By: Derick Reis on 05-10-2025 Heart Rate 63 bpm [facility] [employer] Work Phone: P Hagaman 0 degrees [facility] Work Phone: KS Interval 181 ms [facility] Work Phone: QRS Hagaman -63 degrees [facility] Work Phone: QRSD Interval 93 ms [facility] Work Phone: QT Interval 407 ms [facility] Work Phone: QTC Interval 418 ms [facility] Work Phone: T Wave Hagaman 59 degrees [facility] Work Phone: [facility] Work Phone: No Panel Informationon 05-10 Sinus rhythm Left anterior fascicular block Anteroseptal infarct, age indeterminate Electronically Signed On 05-10-2025 20:31:48 EDT by Derick Reis CV Derick Peres MD - 05/10/2025 IMPRESSION: Sinus rhythm Left anterior fascicular block Anteroseptal infarct, age indeterminate Electronically Signed On 05-10-2025 20:31:48 EDT by Derick Reis [facility] 2h Troponin HS (Serial 2nd Troponin) ng/L NINF - 14 ng/L [facility] Comment on above: Delta value was unab le to be calculated as both baseline and serial troponin tests were below the level of quantitation. As both baseline and 2h troponin values are below the level of quantitation, acute cardiac injury is unlikely. Interpretation and review of laboratory results Normal [facility] Interpretation and review of laboratory results Normal [facility] Troponin HS Serial Baseline ng/L [facility] ng/L [facility] Comment on above: In individuals prese nting with symptoms > 2h, a baseline troponin <= 5 ng/L suggests acute cardiac injury is unlikely and further serial testing is generally not indicated. [facility] Interpretation and review of laboratory results Normal [facility] Interpretation and review of laboratory results Normal [facility] Interpretation and review of laboratory results Abnormal [facility] Performed by: Fabienne Pickett, [address] [place] [address] [place] [address] CLIA ID: [id number] [facility] No Panel InformationOrdered By: Karmen Aleman on 05-10-2025 Interpretation and review of laboratory results Abnormal [facility] Toxicity seen at concentrations >20.0 ug/mL [facility] PHENYTOIN TOTALon 05-10-2025 PHENYTOIN, TOTAL 49.6 ug/mL Critically high 10.0-20.0 [facility] Comment on above: Result Comment: CHERELLE R COMMENTS:Toxicity seen at concentrations >20.0 ug/mL Performed By: #### L [id number] ####Hose Handler: ORLIN DOMÍNGUEZ ([id number])[facility] HOSPITALDeepti [facility]res[facility] ([facility])[address] [place] [address] PROTIME AND APTTon aPTT Coag (Bld) [Time] 29.8 s Normal 20.0-30.5 [facility] Comment on above: Performed By: #### L [id number] ####Hose Handler: ORLIN DOMÍNGUEZ ([id number])[facility]OSPITALDeepti [facility]res[facility] ([facility])[address] [place] [address] INR Coag (PPP) [Relative time] 1.0 {INR} Normal 0.9-1.1 [facility] Comment on above: Result Comment: Jono [...] prevent Myocardial Infarction Performed By: #### L [id number] ####Hose Handler: ORLIN DOMÍNGUEZ ([id number])[facility]OSPITALDeepti [facility] ([facility])[address] [place] [address] PT Coag (PPP) [Time] 10.9 s Normal 9.0-12.0 [facility] Comment on above: Performed By: #### L [id number] ####Hose Handler: ORLIN DOMÍNGUEZ ([id number])[facility] HOSPITALDeepti [facility] ([facility])[address] [place] [address] Urinalysis complete panel (U )Ordered By: Horace Duarte on 05-10-2025 Amorphous Crystals, Urine Few Abnormal Negative /HPF [facility] Bacteria LM.HPF (Urine sed) [#/Area] Few Abnormal Negative /HPF [facility] Bilirubin Ql (U) Negative Negative mg/dL [facility] Clarity (U) Turbid Abnormal Clear [facility] Color (U) Yellow Lt. Yellow [facility] Epithelial cells.squamous LM.HPF (Urine sed) [#/Area] 0-2 [facility] Glucose Ql (U) Normal Normal (<70) mg/dL [facility] Hemoglobin Ql (U) 0.03 mg/dL Abnormal Negative [facility] Hyaline casts Auto (Urine sed) [#/Area] 0-2 Abnormal Negative /LPF [facility] Interpretation and review of laboratory results Abnormal [facility] Ketones (U) [Mass/Vol] Negative Negat lima mg/dL [facility] Leukocyte esterase Test strip Ql (U) Negative Negative Dawit/uL [facility] Mucus LM.HPF (Urine sed) [#/Area] Few Negative /LPF [facility] Nitrite Ql (U) Negative Negative [facility] th pH (U) 7.0 [pH] 5.0 - 8.0 pH [facility] Protein (U) [Mass/Vol] Negative Negat lima mg/dL [facility] RBC LM.HPF (Urine sed) [#/Area] 3-5 Abnormal [facility] Specific gravity (U) [Rel density] 1.012 1.005 - 1.030 [facility] Urobilinogen (U) [Mass/Vol] 6 mg/dL Abnormal Normal (0-1) [facility] WBC LM.HPF (Urine sed) [#/Area] 3-5 [facility] A specimen with <=10 WBC is not consistent with inflammation. This specimen will not reflex to a urine culture. [facility] XR Chest Single viewon 05-10 1. No focal infiltrates. Report Dictated on Electronically Signed By: Yasmani Churchill MD Electronically Signed Date/Time: 05/10/2025 3:16 PM EDT [facility] Patient Name: MADAY ALFARO : [...] bones and soft tissues are grossly unremarkable. [facility] Yasmani Churchill MD - 05/10/2025 [...] Electronically Signed Date/Time: 05/10/2025 3:16 PM EDT [facility] Radiology Study observation (narrative) [facility] alth XR Chest Single viewOrdered By: Yasmani Churchill on 05-10-2025 [facility] [employer] Work Phone: XR Hand - left 3 Viewson No evidence for acute fracture or dislocation. Degenerative changes of the hand and wrist Report Dictated on Electronically Signed By: Osmar Blake MD Electronically Signed Date/Time: 05/10/2025 2:50 PM EDT [employer] Patient Name: MADAY ALFARO : 1940 [...] interphalangeal joints of the left hand diffusely. [facility] Osmar Blake MD - 05/10/2025 [...] Electronically Signed Date/Time: 05/10/2025 2:50 PM EDT [facility] Radiology Study observation (narrative) [facility] XR Hand - left 3 ViewsOrdere d By: Osmar Blake on 05-10-2025 [employer] Work Phone: XR Hip - right 3 [...] MD Electronically Signed Date/Time: 05/10/2025 6:08 PM [facility] RAD[facility] Patient Name: MADAY ALFARO : [...] hip frog leg lateral view COMPARISON: 04/21/2025 [facility] hip and pelvis [facility] Destiny Garcia MD - 05/10/2025 [...] Electronically Signed Date/Time: 05/10/2025 6:08 PM EDT [facility] Radiology Study observation (narrative) [facility] XR Hip - right 3 ViewsOrdere d By: Destiny Garcia on 05-10-2025 [facility] [employer] Work Phone: Basic Metabolic Profile (BMP )on 05-09-2025 BUN/CRE 28.0 RATIO High 10-20 [facility] Comment on above: Order Comment: - Performed By: #### L 100.0100, L500.2500 #### [facility] [address] [place], [address] Calcium [Mass/Vol] 9.6 mg/dL Normal 7.6-11.0 [facility] Comment on above: Order Comment: - Performed By: #### L 100.0100, L500.2500 #### [facility] [address] [place], [address] Chloride [Moles/Vol] 98 mmol/L Normal 98-108 [facility] Comment on above: Order Comment: - Performed By: #### L 100.0100, L500.2500 #### [facility] [address] [place], [address] CO2 [Moles/Vol] 25.9 mmol/L Normal 21.0-32.0 [facility] Comment on above: Order Comment: - Performed By: #### L 100.0100, L500.2500 #### [facility] [address] [place], [address] Creatinine [Mass/Vol] 0.38 mg/dL Low 0.70-1.20 [facility] Comment on above: Order Comment: Performed By: #### L 100.0100, L500.2500 #### [facility] [address] [place], [address] GAP 10 Normal 5-15 [facility] Comment on above: Order Comment: Performed By: #### L 100.0100, L500.2500 #### [facility] [address] [place], [address] GFR/1.73 sq M.predicted among non-blacks MDRD (S/P/Bld) [Vol rate/Area] 100 mL/min/{1.73_m2} Normal >60 [facility] Comment on above: Order Comment: Result Comment: mL/m in/1.73m2 CKD-EPI Creatinine Equation (2020) Performed By: #### L 100.0100, L500.2500 #### [facility] [address] [place], [address] Glucose [Mass/Vol] 102 mg/dL High 70-99 [facility] Comment on above: Order Comment: Performed By: #### L 100.0100, L500.2500 #### [facility] [address] [place], [address] Potassium [Moles/Vol] 3.7 mmol/L Normal 3.3-5.1 [facility] Comment on above: Order Comment: Performed By: #### L 100.0100, L500.2500 #### [facility] [address] [place], [address] Sodium [Moles/Vol] 134 mmol/L Normal 133-145 [facility] Comment on above: Order Comment: Performed By: #### L 100.0100, L500.2500 #### [facility] [address] [place], [address] Urea nitrogen [Mass/Vol] 11 mg/dL Normal 4-19 [facility] Comment on above: Order Comment: Performed By: #### L 100.0100, L500.2500 #### [facility] [address] [place], [address] CBC W/Diff, Automatedon - Anisocytosis Ql (Bld) 1+ Normal [facility] Comment on above: Order Comment: Performed By: #### L 100.0100, L500.2500 #### [facility] [address] [place], [address] Phenytoin (Dilantin) Levelon 05-05-2025 Phenytoin [Mass/Vol] 25.6 ug/mL High 10.0-20.0 [facility] Comment on above: Order Comment: 203.1 [...] Performed By: #### L 501.7700, L503.7505 #### [facility] [address] [place], [address] Pro- Brain NATRIURETIC PEPTI Chan 05-05-2025 Natriuretic peptide B (Bld) [Mass/Vol] 1791 pg/mL Normal <=1800 [facility] Comment on above: Order Comment: 203.1 Result Comment: Hear t Failure Unlikely: < 300 pg/mL Heart Failure Likely < 50 Years: > 450 pg/mL 50-75 Years: > 900 pg/mL >75 Years: > 1800 pg/mL Performed By: #### L 501.7700, L503.7505 #### [facility] [address] [place], [address] Basic Metabolic Profile (BMP )on 05-02-2025 BUN/CRE 38.6 RATIO High 10-20 [facility] Comment on above: Performed By: #### L 100.0500, L500.2500 #### [facility] [address] [place], [address] Calcium [Mass/Vol] 9.6 mg/dL Normal 7.6-11.0 [facility] Comment on above: Performed By: #### L 100.0500, L500.2500 #### [facility] [address] [place], [address] Chloride [Moles/Vol] 97 mmol/L Low 98-108 [facility] Comment on above: Performed By: #### L 100.0500, L500.2500 #### [facility] [address] [place], [address] CO2 [Moles/Vol] 20.1 mmol/L Low 21.0-32.0 [facility] Comment on above: Performed By: #### L 100.0500, L500.2500 #### [facility] [address] [place], [address] Creatinine [Mass/Vol] 0.40 mg/dL Low 0.70-1.20 [facility] Comment on above: Performed By: #### L 100.0500, L500.2500 #### [facility] [address] [place], [address] GAP 13 Normal 5-15 [facility] Comment on above: Performed By: #### L 100.0500, L500.2500 #### [facility] [address] [place], [address] GFR/1.73 sq M.predicted among non-blacks MDRD (S/P/Bld) [Vol rate/Area] 98 mL/min/{1.73_m2} Normal >60 [facility] Comment on above: Result Comment: mL/m in/1.73m2 CKD-EPI Creatinine Equation (2020) Performed By: #### L 100.0500, L500.2500 #### [facility] [address] [place], [address] Glucose [Mass/Vol] 89 mg/dL Normal 70-99 [facility] Comment on above: Performed By: #### L 100.0500, L500.2500 #### [facility] [address] [place], [address] Potassium [Moles/Vol] 3.6 mmol/L Normal 3.3-5.1 [facility] Comment on above: Result Comment: Hemo lysis present, Results??could be affected. ?? Performed By: #### L 100.0500, L500.2500 #### [facility] [address] [place], [address] Sodium [Moles/Vol] 130 mmol/L Low 133-145 [facility] Comment on above: Performed By: #### L 100.0500, L500.2500 #### [facility] [address] [place], [address] Urea nitrogen [Mass/Vol] 16 mg/dL Normal 4-19 [facility] Comment on above: Performed By: #### L 100.0500, L500.2500 #### [facility] [address] [place], [address] CBC-Complete Blood Cnt No Di ffon 05-02-2025 Erythrocyte distribution width (RBC) [Ratio] 16.5 % High 11.6-14.6 [facility] Comment on above: Performed By: #### L 100.0500, L500.2500 #### [facility] [address] [place], [address] Hematocrit (Bld) [Volume fraction] 28.5 % Low 37-47 [facility] Comment on above: Performed By: #### L 100.0500, L500.2500 #### [facility] [address] [place], [address] Hemoglobin (Bld) [Mass/Vol] 9.5 g/dL Low 12.0-15.0 [facility] Comment on above: Performed By: #### L 100.0500, L500.2500 #### [facility] [address] [place], [address] MCH (RBC) [Entitic mass] 33.6 pg High 27.0-32.0 [facility] Comment on above: Performed By: #### L 100.0500, L500.2500 #### [facility] [address] [place], [address] MCHC (RBC) [Mass/Vol] 33.3 g/dL Normal 32-36 [facility] Comment on above: Performed By: #### L 100.0500, L500.2500 #### [facility] [address] [place], [address] MCV (RBC) [Entitic vol] 100.7 fL High 81-99 [facility] Comment on above: Performed By: #### L 100.0500, L500.2500 #### [facility] [address] [place], [address] Platelet mean volume (Bld) [Entitic vol] 9.1 fL Normal 6.2-12.0 [facility] Comment on above: Performed By: #### L 100.0500, L500.2500 #### [facility] [address] [place], [address] Platelets (Bld) [#/Vol] 344 10*3/uL Normal 150-450 [facility] Comment on above: Performed By: #### L 100.0500, L500.2500 #### [facility] [address] [place], [address] RBC (Bld) [#/Vol] 2.83 10*6/uL Low 4.2-5.4 [facility] Comment on above: Performed By: #### L 100.0500, L500.2500 #### [facility] [address] [place], [address] RDW SD 58.8 fl High 35.1-43.9 [facility] Comment on above: Performed By: #### L 100.0500, L500.2500 #### [facility] [address] [place], [address] WBC (Bld) [#/Vol] 7.5 10*3/uL Normal 4.4-11.0 [facility] Comment on above: Performed By: #### L 100.0500, L500.2500 #### [facility] [address] [place], [address] [id number] 05-01-2025 [id number] Patient Choice Patient Name: MADAY ALFARO Date of : 1940 36on 05-01-2025 36 Spoke with patient's nurse and gave her Krupa's recommendations to stop Lovenox 36 Contacted by [facility] regarding patient being on Lovenox. Okay to stop Lovenox. [id number] 04-30-2025 [id number] [facility] Chcf/[address] [phone] [id number] Patient/Family Choice [id number] 04-29-2025 [id number] Discharge med list transmitted to [facility]- [facility] [place] via [employer] per TCC request. 7000 was entered into [place] [facility] for the [facility]. [id number] Transport requested in Roundtrip as Will Call for [facility] [place] per TCC request. [id number] FOC is [facility] , [facility] tasked to submit for humana auth and to do 7000. Transport requested in will call . [phone] Family called back [facility] to send clinicals and med rec Will submit auth today if accepted Adore to be done And 7000 [phone] BASIC METABOLIC PANELon - Anion gap [Moles/Vol] 3 mmol/L Normal 3-13 [facility] Comment on above: Performed By: #### L AB15 ####Hose Handler: RIKY PICKARD ([id number])[facility] ([facility])[address] [place] [address] [place] Calcium [Mass/Vol] 9.0 mg/dL Normal 8.8-10.0 [facility] Comment on above: Performed By: #### L AB15 ####Hose Handler: RIKY PICKARD ([id number])[facility] ([facility])[address] [place] [address] [place] Chloride [Moles/Vol] 102 mmol/L Normal 98-107 [facility] Comment on above: Performed By: #### L AB15 ####Hose Handler: RIKY PICKARD ([id number])[facility] ([facility])[address] [place] [address] [place] CO2 [Moles/Vol] 24 mmol/L Normal 23-31 [facility] Comment on above: Performed By: #### L AB15 ####Hose Handler: RIKY PICKARD ([id number])[facility] ([facility])[address] [place] [address] Creatinine [Mass/Vol] 0.47 mg/dL Low 0.57-1.11 [facility] Comment on above: Performed By: #### L AB15 ####Hose Handler: RIKY PICKARD ([id number])[facility])[address] [place] [address] GLOMERULAR FILTRATION RATE ML/MIN/1.73 SQ M.PREDICTED >90.0 Normal >60.0 [facility] Comment on above: Result Comment: Calc ulation based on the Chronic Kidney Disease Epidemiology Collaboration (CKD-EPI) equation refit without adjustment for race Performed By: #### L AB15 ####Hose Handler: RIKY PICKARD ([id number])[facility] ([facility])[address] [place] [address] Glucose [Mass/Vol] 103 mg/dL Normal 82-115 [facility] Comment on above: Performed By: #### L AB15 ####Hose Handler: RIKY PICKARD ([id number])[facility])[address] [place] [address] Potassium [Moles/Vol] 3.7 mmol/L Normal 3.5-5.1 [facility] Comment on above: Result Comment: [facility] potassium values may be up to 0.5 mmol/L lower than serum values. Performed By: #### L AB15 ####Hose Handler: RIKY PICKARD ([id number])[facility])[address] [place] [address] [place] Sodium [Moles/Vol] 129 mmol/L Low 136-145 [facility] Comment on above: Performed By: #### L AB15 ####Hose Handler: RIKY PICKARD ([id number])[facility] ([facility])[address] [place] [address] Urea nitrogen [Mass/Vol] 13 mg/dL Normal 9-23 [facility] Comment on above: Performed By: #### L AB15 ####Hose Handler: RIKY PICKARD ([id number])[address] Basic metabolic 1998 panelon 04-29-2025 Anion gap [Moles/Vol] 3 mmol/L 3 - 13 mmol/L [facility] Calcium [Mass/Vol] 9 mg/dL 8.8 - 10. 0 mg/dL [facility] Chloride [Moles/Vol] 102 mmol/L 98 - 10 7 mmol/L [facility] CO2 [Moles/Vol] 24 mmol/L 23 - 31 mmol/L [facility] Creatinine [Mass/Vol] 0.47 mg/dL Low 0.57 - 1.11 mg/dL [facility] GFR/1.73 sq M.predicted (S/P/Bld) [Vol rate/Area] - PINF [facility] Comment on above: Calculation based on the Chronic Kidney Disease Epidemiology Collaboration (CKD-EPI) equation refit without adjustment for race Glucose [Mass/Vol] 103 mg/dL 82 - 115 mg/dL [facility] Interpretation and review of laboratory results Abnormal [facility] Potassium [Moles/Vol] 3.7 mmol/L 3.5 - 5.1 mmol/L [facility] Comment on above: Plasma potassium dede ues may be up to 0.5 mmol/L lower than serum values. Sodium [Moles/Vol] 129 mmol/L Low 136 - 145 mmol/L [facility] Urea nitrogen [Mass/Vol] 13 mg/dL 9 - 23 mg/dL [facility] [facility] Nursing Noteon 04-29-2025 Nursing Note Normal [facility] Progress Noteon 04-29-2025 Progress Note Normal [facility] Progress Note Normal [facility] Progress Note Normal [facility] Progress Note Normal [facility] [id number] 04-28-2025 [id number] Normal [facility] [id number] Normal [facility] BASIC METABOLIC PANELon 04-14 Anion gap [Moles/Vol] 5 mmol/L Normal 3-13 [facility] Comment on above: Performed By: #### L [id number] ####Hose Handler: RIKY PICKARD ([phone])[facility] [place] [address] Calcium [Mass/Vol] 8.7 mg/dL Low 8.8-10.0 [facility] Comment on above: Performed By: #### L AB15 ####Hose Handler: RIKY PICKARD ([phone])[facility] [place] [address] Chloride [Moles/Vol] 102 mmol/L Normal 98-107 [facility] Comment on above: Performed By: #### L AB15 ####Hose Handler: RIKY PICKARD ([phone])[facility] [place] [address] CO2 [Moles/Vol] 23 mmol/L Normal 23-31 [facility] Comment on above: Performed By: #### L AB15 ####Hose Handler: RIKY PICKARD ([phone])[facility] [place] [address] Creatinine [Mass/Vol] 0.48 mg/dL Low 0.57-1.11 [facility] Comment on above: Performed By: #### L AB15 ####Hose Handler: RIKY PICKARD ([phone])[facility] ([facility])[address] [place] [address] GLOMERULAR FILTRATION RATE ML/MIN/1.73 SQ M.PREDICTED >90.0 Normal >60.0 [facility] Comment on above: Result Comment: Calc ulation based on the Chronic Kidney Disease Epidemiology Collaboration (CKD-EPI) equation refit without adjustment for race Performed By: #### L AB15 ####Hose Handler: RIYK PICKARD ([phone])[facility] ([facility])[address] [place] [address] Glucose [Mass/Vol] 97 mg/dL Normal 82-115 [facility] Comment on above: Performed By: #### L AB15 ####Hose Handler: RIKY PICKARD ([phone])[facility] ([facility])[address] [place] [address] Potassium [Moles/Vol] 4.0 mmol/L Normal 3.5-5.1 [facility] Comment on above: Result Comment: [facility] potassium values may be up to 0.5 mmol/L lower than serum values. Performed By: #### L AB15 ####Hose Handler: RIKY PICKARD ([phone])[address] Sodium [Moles/Vol] 130 mmol/L Low 136-145 [facility] Comment on above: Performed By: #### L AB15 ####Hose Handler: RIKY PICKARD ([phone])[address] Urea nitrogen [Mass/Vol] 19 mg/dL Normal 9-23 [facility] Comment on above: Performed By: #### L AB15 ####Hose Handler: RIKY PICKARD ([phone])[address] Basic metabolic 1998 panelon 04-28-2025 Anion gap [Moles/Vol] 5 mmol/L 3 - 13 mmol/L [facility] Calcium [Mass/Vol] 8.7 mg/dL Low 8.8 - 10. 0 mg/dL [facility] Chloride [Moles/Vol] 102 mmol/L 98 - 10 7 mmol/L [facility] CO2 [Moles/Vol] 23 mmol/L 23 - 31 mmol/L [facility] Creatinine [Mass/Vol] 0.48 mg/dL Low 0.57 - 1.11 mg/dL [facility] GFR/1.73 sq M.predicted (S/P/Bld) [Vol rate/Area] - PINF [facility] Comment on above: Calculation based on the Chronic Kidney Disease Epidemiology Collaboration (CKD-EPI) equation refit without adjustment for race Glucose [Mass/Vol] 97 mg/dL 82 - 115 mg/dL [facility] Interpretation and review of laboratory results Abnormal [facility] Potassium [Moles/Vol] 4 mmol/L 3.5 - 5.1 mmol/L [facility] Comment on above: Plasma potassium dede ues may be up to 0.5 mmol/L lower than serum values. Sodium [Moles/Vol] 130 mmol/L Low 136 - 145 mmol/L [facility] Urea nitrogen [Mass/Vol] 19 mg/dL 9 - 23 mg/dL [facility] CBC W Auto Differential pane l (Bld)on 04-28-2025 Basophils (Bld) [#/Vol] 0 10*3/uL 0.0 - 0.2 10*3/uL [facility] Basophils/100 WBC (Bld) 0.3 % 0.0 - 2.0 % [facility] Eosinophils (Bld) [#/Vol] 0.1 10*3/uL 0.0 - 0.5 10*3/uL [facility] Eosinophils/100 WBC (Bld) 1.7 % 0.0 - 6.0 % [facility] Erythrocyte distribution width (RBC) [Ratio] 14.9 % 11.5 - 15.0 % [facility] Hematocrit (Bld) [Volume fraction] 22.6 % Low 35.0 - 47.0 % [facility] Hemoglobin (Bld) [Mass/Vol] 7.8 g/dL Low 11.7 - 16.0 g/dL [facility] Immature granulocytes (Bld) [#/Vol] 0.2 10*3/uL High NINF - 0.1 10*3/uL [facility] Immature granulocytes/100 WBC (Bld) 2.1 % High 0.0 - 2.0 % [facility] Interpretation and review of laboratory results Abnormal [facility] Lymphocytes (Bld) [#/Vol] 1.3 10*3/uL 1.0 - 4.3 10*3/uL [facility] Lymphocytes/100 WBC (Bld) 17.4 % 15.0 - 45.0 % [facility] MCH (RBC) [Entitic mass] 33.2 pg 26.0 - 34.0 pg [facility] MCHC (RBC) [Mass/Vol] 34.5 % 30.5 - 36.0 % [facility] MCV (RBC) [Entitic vol] 96.2 fL 77.0 - 99.0 fL [facility] Monocytes (Bld) [#/Vol] 1.1 10*3/uL High 0.0 - 0.9 10*3/uL [facility] Monocytes/100 WBC (Bld) 14.5 % High 5.0 - 13.0 % [facility] Neutrophils (Bld) [#/Vol] 4.7 10*3/uL 1.8 - 7.5 10*3/uL [facility] Neutrophils/100 WBC (Bld) 64 % 38.0 - 82.0 % [facility] Nucleated RBC/100 WBC (Bld) [Ratio] 0 % [facility] Platelet mean volume (Bld) [Entitic vol] 9.7 fL 9.0 - 12.7 fL [facility] Platelets (Bld) [#/Vol] 216 10*3/uL 140 - 440 10*3/uL [facility] RBC (Bld) [#/Vol] 2.35 10*6/uL Low 3.80 - 5.2 0 10*6/uL [facility] WBC (Bld) [#/Vol] 7.3 10*3/uL 3.6 - 10.7 10*3/uL [facility] CBC WITH AUTO DIFFERENTIALon 04-28-2025 Basophils (Bld) [#/Vol] 0.0 10*3/uL Normal 0.0-0.2 [facility] Comment on above: Performed By: #### L [id number] ####Hose Handler: RIKY PICKARD ([phone])[address] Basophils/100 WBC (Bld) 0.3 % Normal 0.0-2.0 [facility] Comment on above: Performed By: #### L [id number] ####Hose Handler: RIKY PICKARD ([id number])[facility] ([facility])[address] [place] [address] Eosinophils (Bld) [#/Vol] 0.1 10*3/uL Normal 0.0-0.5 [facility] Comment on above: Performed By: #### L [id number] ####Hose Handler: RIKY PICKARD ([id number])[facility])[address] [place] [address] Eosinophils/100 WBC (Bld) 1.7 % Normal 0.0-6.0 [facility] Comment on above: Performed By: #### L [id number] ####Hose Handler: RIKY PICKARD ([phone])[facility])[address] [place] [address] Erythrocyte distribution width (RBC) [Ratio] 14.9 % Normal 11.5-15.0 [facility] Comment on above: Performed By: #### L [id number] ####Hose Handler: RIKY PICKARD ([phone])[facility])[address] [place] [address] Hematocrit (Bld) [Volume fraction] 22.6 % Low 35.0-47.0 [facility] Comment on above: Performed By: #### L [id number] ####Hose Handler: RIKY PICKARD ([phone])[address] Hemoglobin (Bld) [Mass/Vol] 7.8 g/dL Low 11.7-16.0 [facility] Comment on above: Performed By: #### L [id number] ####Hose Handler: RIKY PICKARD ([phone])[facility])[address] [place] [address] IMMATURE GRANS % 2.1 % High 0.0-2.0 [facility] Comment on above: Performed By: #### L [id number] ####Hose Handler: RIKY PICKARD ([phone])[address] IMMATURE GRANS ABSOLUTE 0.2 10*3/uL High <0.1 [facility] Comment on above: Performed By: #### L [id number] ####Hose Handler: RIKY PICKARD ([phone])[address] Lymphocytes (Bld) [#/Vol] 1.3 10*3/uL Normal 1.0-4.3 [facility] Comment on above: Performed By: #### L [id number] ####Hose Handler: RIKY PICKARD ([phone])[facility])[address] [place] [address] Lymphocytes/100 WBC (Bld) 17.4 % Normal 15.0-45.0 [facility] Comment on above: Performed By: #### L [id number] ####Hose Handler: RIKY PICKARD ([phone])[facility])[address] [place] [address] MCH (RBC) [Entitic mass] 33.2 pg Normal 26.0-34.0 [facility] Comment on above: Performed By: #### L [id number] ####Hose Handler: RIKY PICKARD ([phone])[facility])[address] [place] [address] MCHC 34.5 % Normal 30.5-36.0 [facility] Comment on above: Performed By: #### L [id number] ####Hose Handler: RIKY PICKARD ([phone])[facility])[address] [place] [address] MCV (RBC) [Entitic vol] 96.2 fL Normal 77.0-99.0 [facility] Comment on above: Performed By: #### L [id number] ####Hose Handler: RIKY PICKARD ([phone])[facility])[address] [place] [address] Monocytes (Bld) [#/Vol] 1.1 10*3/uL High 0.0-0.9 [facility] Comment on above: Performed By: #### L [id number] ####Hose Handler: RIKY PICKARD ([phone])[facility])[address] [place] [address] Monocytes/100 WBC (Bld) 14.5 % High 5.0-13.0 [facility] Comment on above: Performed By: #### L [id number] ####Hose Handler: RIKY PICKARD ([phone])[facility])[address] [place] [address] NEUTROPHILS ABSOLUTE 4.7 10*3/uL Normal 1.8-7.5 [facility] Comment on above: Performed By: #### L [id number] ####Hose Handler: RIKY PICKARD ([phone])[facility] ([facility])[address] [place] [address] Neutrophils/100 WBC (Bld) 64.0 % Normal 38.0-82.0 [facility] Comment on above: Performed By: #### L [id number] ####Hose Handler: RIKY PICKARD ([phone])[facility] ([facility])[address] [place] [address] NRBC 0.0 /100 WBCs Normal 0.0-2.0 [facility] Comment on above: Performed By: #### L [id number] ####Hose Handler: RIKY PICKARD ([phone])[facility] ([facility])[address] [place] [address] Platelet mean volume (Bld) [Entitic vol] 9.7 fL Normal 9.0-12.7 [facility] Comment on above: Performed By: #### L [id number] ####Hose Handler: RIKY PICKARD ([phone])[facility] ([facility])[address] [place] [address] [place] Platelets (Bld) [#/Vol] 216 10*3/uL Normal 140-440 [facility] Comment on above: Performed By: #### L [id number] ####Hose Handler: RIKY PICKARD ([phone])[facility] ([facility])[address] [place] [address] [place] RBC (Bld) [#/Vol] 2.35 10*6/uL Low 3.80-5.20 [facility] Comment on above: Performed By: #### L [id number] ####Hose Handler: RIKY PICKARD ([phone])[facility] ([facility])[address] [place] [address] [place] WBC (Bld) [#/Vol] 7.3 10*3/uL Normal 3.6-10.7 [facility] Comment on above: Performed By: #### L [id number] ####Hose Handler: RIKY PICKARD ([phone])[facility] [place] [address] Progress Noteon 04-28-2025 Progress Note Normal [facility] Progress Note Normal [facility] Progress Note Normal [facility] Progress Note Normal [facility] BASIC METABOLIC PANELon 04-14 Anion gap [Moles/Vol] 7 mmol/L Normal 3-13 [facility] Comment on above: Performed By: #### L AB113, LAB15, [id number] ####Hose Handler: RIKY PICKARD ([phone])[facility] ([facility])[address] [place] [address] Calcium [Mass/Vol] 8.6 mg/dL Low 8.8-10.0 [facility] Comment on above: Performed By: #### L AB113, LAB15, [id number] ####Hose Handler: RIKY PICKARD ([id number])[facility] [place] [address] Chloride [Moles/Vol] 102 mmol/L Normal 98-107 [facility] Comment on above: Performed By: #### L AB113, LAB15, [id number] ####Hose Handler: RIKY PICKARD ([phone])[facility] [place] [address] CO2 [Moles/Vol] 22 mmol/L Low 23-31 [facility] Comment on above: Performed By: #### L AB113, LAB15, [id number] ####Hose Handler: RIKY PICKARD ([phone])[facility] ([facility])[address] [place] [address] Creatinine [Mass/Vol] 0.51 mg/dL Low 0.57-1.11 [facility] Comment on above: Performed By: #### L AB113, LAB15, [id number] ####Hose Handler: RIKY PICKARD ([id number])[facility] [address] GLOMERULAR FILTRATION RATE ML/MIN/1.73 SQ M.PREDICTED >90.0 Normal >60.0 [facility] Comment on above: Result Comment: Calc ulation based on the Chronic Kidney Disease Epidemiology Collaboration (CKD-EPI) equation refit without adjustment for race Performed By: #### L AB113, LAB15, [id number] ####Hose Handler: RIKY PICKARD ([phone])[facility])[address] [place] [address] Glucose [Mass/Vol] 95 mg/dL Normal 82-115 [facility] Comment on above: Performed By: #### L AB113, LAB15, [id number] ####Hose Handler: RIKY PICKARD ([id number])[address] Potassium [Moles/Vol] 3.9 mmol/L Normal 3.5-5.1 [facility] Comment on above: Result Comment: [facility] potassium values may be up to 0.5 mmol/L lower than serum values. Performed By: #### L AB113, LAB15, [id number] ####Hose Handler: RIKY PICKARD ([phone])[address] Sodium [Moles/Vol] 131 mmol/L Low 136-145 [facility] Comment on above: Performed By: #### L AB113, LAB15, [id number] ####Hose Handler: RIKY PICKARD ([phone])[facility])[address] [place] [address] Urea nitrogen [Mass/Vol] 16 mg/dL Normal 9-23 [facility] Comment on above: Performed By: #### L AB113, LAB15, [id number] ####Hose Handler: RIKY PICKARD ([id number])[address] Basic metabolic 1998 panelon 04-27-2025 Anion gap [Moles/Vol] 7 mmol/L 3 - 13 mmol/L [facility] Calcium [Mass/Vol] 8.6 mg/dL Low 8.8 - 10. 0 mg/dL [facility] Chloride [Moles/Vol] 102 mmol/L 98 - 10 7 mmol/L [facility] CO2 [Moles/Vol] 22 mmol/L Low 23 - 31 mmol/L [facility] Creatinine [Mass/Vol] 0.51 mg/dL Low 0.57 - 1.11 mg/dL [facility] GFR/1.73 sq M.predicted (S/P/Bld) [Vol rate/Area] - PINF [facility] Comment on above: Calculation based on the Chronic Kidney Disease Epidemiology Collaboration (CKD-EPI) equation refit without adjustment for race Glucose [Mass/Vol] 95 mg/dL 82 - 115 mg/dL [facility] Potassium [Moles/Vol] 3.9 mmol/L 3.5 - 5.1 mmol/L [facility] Comment on above: Plasma potassium dede ues may be up to 0.5 mmol/L lower than serum values. Sodium [Moles/Vol] 131 mmol/L Low 136 - 145 mmol/L [facility] Urea nitrogen [Mass/Vol] 16 mg/dL 9 - 23 mg/dL [facility] CBC W Auto Differential pane l (Bld)on 04-27-2025 Basophils (Bld) [#/Vol] 0 10*3/uL 0.0 - 0.2 10*3/uL [facility] Basophils/100 WBC (Bld) 0.2 % 0.0 - 2.0 % [facility] Eosinophils (Bld) [#/Vol] 0.1 10*3/uL 0.0 - 0.5 10*3/uL [facility] Eosinophils/100 WBC (Bld) 1.9 % 0.0 - 6.0 % [facility] Erythrocyte distribution width (RBC) [Ratio] 14.6 % 11.5 - 15.0 % [facility] Hematocrit (Bld) [Volume fraction] 23 % Low 35.0 - 47.0 % [facility] Hemoglobin (Bld) [Mass/Vol] 7.7 g/dL Low 11.7 - 16.0 g/dL [facility] Immature granulocytes (Bld) [#/Vol] 0.1 10*3/uL High NINF - 0.1 10*3/uL [facility] Immature granulocytes/100 WBC (Bld) 1.1 % 0.0 - 2.0 % [facility] Interpretation and review of laboratory results Abnormal [facility] Lymphocytes (Bld) [#/Vol] 1.6 10*3/uL 1.0 - 4.3 10*3/uL [facility] Lymphocytes/100 WBC (Bld) 24.8 % 15.0 - 45.0 % [facility] MCH (RBC) [Entitic mass] 32.5 pg 26.0 - 34.0 pg [facility] MCHC (RBC) [Mass/Vol] 33.5 % 30.5 - 36.0 % [facility] MCV (RBC) [Entitic vol] 97 fL 77.0 - 99.0 fL [facility] Monocytes (Bld) [#/Vol] 0.9 10*3/uL 0.0 - 0.9 10*3/uL [facility] Monocytes/100 WBC (Bld) 14.6 % High 5.0 - 13.0 % [facility] Neutrophils (Bld) [#/Vol] 3.7 10*3/uL 1.8 - 7.5 10*3/uL [facility] Neutrophils/100 WBC (Bld) 57.4 % 38.0 - 82.0 % [facility] Nucleated RBC/100 WBC (Bld) [Ratio] 0 % [facility] Platelet mean volume (Bld) [Entitic vol] 10.5 fL 9.0 - 12.7 fL [facility] Platelets (Bld) [#/Vol] 181 10*3/uL 140 - 440 10*3/uL [facility] RBC (Bld) [#/Vol] 2.37 10*6/uL Low 3.80 - 5.2 0 10*6/uL [facility] WBC (Bld) [#/Vol] 6.4 10*3/uL 3.6 - 10.7 10*3/uL [facility] CBC WITH AUTO DIFFERENTIALon 04-27-2025 Basophils (Bld) [#/Vol] 0.0 10*3/uL Normal 0.0-0.2 [facility] Comment on above: Performed By: #### L [id number] ####Hose Handler: RIKY PICKARD ([phone])[facility] ([address] Basophils/100 WBC (Bld) 0.2 % Normal 0.0-2.0 [facility] Comment on above: Performed By: #### L [id number] ####Hose Handler: RIKY PICKARD ([phone])[facility])[address] [place] [address] Eosinophils (Bld) [#/Vol] 0.1 10*3/uL Normal 0.0-0.5 [facility] Comment on above: Performed By: #### L [id number] ####Hose Handler: RIKY PICKARD ([phone])[facility])[address] [place] [address] Eosinophils/100 WBC (Bld) 1.9 % Normal 0.0-6.0 [facility] Comment on above: Performed By: #### L [id number] ####Hose Handler: RIKY PICKARD ([phone])[facility])[address] [place] [address] Erythrocyte distribution width (RBC) [Ratio] 14.6 % Normal 11.5-15.0 [facility] Comment on above: Performed By: #### L [id number] ####Hose Handler: RIKY PICKARD ([phone])[facility])[address] [place] [address] Hematocrit (Bld) [Volume fraction] 23.0 % Low 35.0-47.0 [facility] Comment on above: Performed By: #### L [id number] ####Hose Handler: RIKY PICKARD ([phone])[facility])[address] [place] [address] Hemoglobin (Bld) [Mass/Vol] 7.7 g/dL Low 11.7-16.0 [facility] Comment on above: Performed By: #### L [id number] ####Hose Handler: RIKY PICKARD ([phone])[facility])[address] [place] [address] IMMATURE GRANS % 1.1 % Normal 0.0-2.0 [facility] Comment on above: Performed By: #### L [id number] ####Hose Handler: RIKY PICKARD ([phone])[address] IMMATURE GRANS ABSOLUTE 0.1 10*3/uL High <0.1 [facility] Comment on above: Performed By: #### L [id number] ####Hose Handler: RIKY PICKARD ([phone])[facility])[address] [place] [address] Lymphocytes (Bld) [#/Vol] 1.6 10*3/uL Normal 1.0-4.3 [facility] Comment on above: Performed By: #### L [id number] ####Hose Handler: RIKY PICKARD ([phone])[address] Lymphocytes/100 WBC (Bld) 24.8 % Normal 15.0-45.0 [facility] Comment on above: Performed By: #### L [id number] ####Hose Handler: RIKY PICKARD ([phone])[facility])[address] [place] [address] MCH (RBC) [Entitic mass] 32.5 pg Normal 26.0-34.0 [facility] Comment on above: Performed By: #### L [id number] ####Hose Handler: RIKY PICKARD ([phone])[address] MCHC 33.5 % Normal 30.5-36.0 [facility] Comment on above: Performed By: #### L [id number] ####Hose Handler: RIKY PICKARD ([phone])[address] MCV (RBC) [Entitic vol] 97.0 fL Normal 77.0-99.0 [facility] Comment on above: Performed By: #### L [id number] ####Hose Handler: RIKY PICKARD ([phone])[facility] [place] [address] Monocytes (Bld) [#/Vol] 0.9 10*3/uL Normal 0.0-0.9 [facility] Comment on above: Performed By: #### L [id number] ####Hose Handler: RIKY PICKARD ([phone])[facility] ([facility])[address] [place] [address] Monocytes/100 WBC (Bld) 14.6 % High 5.0-13.0 [facility] Comment on above: Performed By: #### L [id number] ####Hose Handler: RIKY PICKARD ([phone])[facility] ([facility])[address] [place] [address] NEUTROPHILS ABSOLUTE 3.7 10*3/uL Normal 1.8-7.5 [facility] Comment on above: Performed By: #### L [id number] ####Hose Handler: RIKY PICKARD ([phone])[facility] ([facility])[address] [place] [address] Neutrophils/100 WBC (Bld) 57.4 % Normal 38.0-82.0 [facility] Comment on above: Performed By: #### L [id number] ####Hose Handler: RIKY PICKARD ([id number])[facility] ([facility])[address] [place] [address] NRBC 0.0 /100 WBCs Normal 0.0-2.0 [facility] Comment on above: Performed By: #### L [id number] ####Hose Handler: RIKY PICKARD ([id number])[facility] ([facility])[address] [place] [address] Platelet mean volume (Bld) [Entitic vol] 10.5 fL Normal 9.0-12.7 [facility] Comment on above: Performed By: #### L [id number] ####Hose Handler: RIKY PICKARD ([id number])[facility] ([facility])[address] [place] [address] Platelets (Bld) [#/Vol] 181 10*3/uL Normal 140-440 [facility] Comment on above: Performed By: #### L [id number] ####Hose Handler: RIKY PICKARD ([phone])[facility])[address] [place] [address] RBC (Bld) [#/Vol] 2.37 10*6/uL Low 3.80-5.20 [facility] Comment on above: Performed By: #### L [id number] ####Hose Handler: RIKY PICKARD ([phone])[facility])[address] [place] [address] WBC (Bld) [#/Vol] 6.4 10*3/uL Normal 3.6-10.7 [facility] Comment on above: Performed By: #### L [id number] ####Hose Handler: RIKY PICKARD ([id number])[facility])[address] [place] [address] Laboratory - Chemistry and C hemistry - challengeon 04-27-2025 Magnesium [Mass/Vol] 2 mg/dL 1.6 - 2 .6 mg/dL [place] [facility]IUMon 04-27-2025 Magnesium [Mass/Vol] 2.0 mg/dL Normal 1.6-2.6 [facility] Comment on above: Result Comment: CHERELLE R COMMENTS:Higher values can be expected in females during menses. Performed By: #### L AB113, LAB15, [id number] ####Hose Handler: RIKY PICKARD ([phone])[facility])[address] [place] [address] Magnesium [Mass/Vol]on 04-27 Interpretation and review of laboratory results Normal [facility] Higher values can be expected in females during menses. [facility] No Panel Informationon 04-27 Interpretation and review of laboratory results Abnormal [facility] PHOSPHORUSon 04-27-2025 Phosphate [Mass/Vol] 2.2 mg/dL Low 2.3-4.7 [facility] Comment on above: Performed By: #### L AB113, LAB15, [id number] ####Hose Handler: RIKY PICKARD ([phone])[facility] ([facility])[address] [place] [address] [place] Phosphate [Moles/Vol]on 04-14 Phosphate [Mass/Vol] 2.2 mg/dL Low 2.3 - 4 .7 mg/dL [facility] Progress Noteon 04-27-2025 Progress Note PHYSICAL THERAPY [facility] Name/MRN: Maday Alfaro ([id number]) Date: 04/27/2025 Treatment is being deferred at present because she just completed therapy with OT and needs a rest . Keya Velasquez, BEAM PRESS OPERATOR Normal [facility] Progress Note Normal [facility] Progress Note Normal [facility] [id number] 04-26-2025 [id number] Normal [facility] BASIC METABOLIC PANELon 04-14 Anion gap [Moles/Vol] 5 mmol/L Normal - [facility] Comment on above: Performed By: #### L AB113, LAB15, [id number] ####Hose Handler: RIKY PICKARD ([phone])[facility] ([facility])[address] [place] [address] [place] Calcium [Mass/Vol] 8.4 mg/dL Low 8.8-10.0 [facility] Comment on above: Performed By: #### L AB113, LAB15, [id number] ####Hose Handler: RIKY PICKARD ([phone])[facility] ([facility])[address] [place] [address] [place] Chloride [Moles/Vol] 104 mmol/L Normal 98-107 [facility] Comment on above: Performed By: #### L AB113, LAB15, [id number] ####Hose Handler: RIKY PICKARD ([phone])[facility] ([facility])[address] [place] [address] [place] CO2 [Moles/Vol] 22 mmol/L Low 23-31 [facility] Comment on above: Performed By: #### L AB113, LAB15, [id number] ####Hose Handler: RIKY PICKARD ([phone])[facility])[address] [place] [address] Creatinine [Mass/Vol] 0.49 mg/dL Low 0.57-1.11 [facility] Comment on above: Performed By: #### L AB113, LAB15, [id number] ####Hose Handler: RIKY PICKARD ([phone])[facility])[address] [place] [address] GLOMERULAR FILTRATION RATE ML/MIN/1.73 SQ M.PREDICTED >90.0 Normal >60.0 [facility] Comment on above: Result Comment: Calc ulation based on the Chronic Kidney Disease Epidemiology Collaboration (CKD-EPI) equation refit without adjustment for race Performed By: #### L AB113, LAB15, [id number] ####Hose Handler: RIKY PICKARD ([id number])[facility])[address] [place] [address] Glucose [Mass/Vol] 103 mg/dL Normal 82-115 [facility] Comment on above: Performed By: #### L AB113, LAB15, [id number] ####Hose Handler: RIKY PICKARD ([phone])[facility])[address] [place] [address] Potassium [Moles/Vol] 4.2 mmol/L Normal 3.5-5.1 [facility] Comment on above: Result Comment: [facility] potassium values may be up to 0.5 mmol/L lower than serum values. Performed By: #### L AB113, LAB15, [id number] ####Hose Handler: RIKY PICKARD ([phone])[facility] ([facility])[address] [place] [address] [place] Sodium [Moles/Vol] 131 mmol/L Low 136-145 [facility] Comment on above: Performed By: #### L AB113, LAB15, [id number] ####Hose Handler: RIKY PICKARD ([phone])[facility] [place] [address] [place] Urea nitrogen [Mass/Vol] 14 mg/dL Normal 9-23 [facility] Comment on above: Performed By: #### L AB113, LAB15, [id number] ####Hose Handler: RIKY PICKARD ([phone])[facility] ([facility])[address] [place] [address] Basic metabolic 1998 panelon 04-26-2025 Anion gap [Moles/Vol] 5 mmol/L 3 - 13 mmol/L [facility] Calcium [Mass/Vol] 8.4 mg/dL Low 8.8 - 10. 0 mg/dL [facility] Chloride [Moles/Vol] 104 mmol/L 98 - 10 7 mmol/L [facility] CO2 [Moles/Vol] 22 mmol/L Low 23 - 31 mmol/L [facility] Creatinine [Mass/Vol] 0.49 mg/dL Low 0.57 - 1.11 mg/dL [facility] GFR/1.73 sq M.predicted (S/P/Bld) [Vol rate/Area] - PINF [facility] Comment on above: Calculation based on the Chronic Kidney Disease Epidemiology Collaboration (CKD-EPI) equation refit without adjustment for race Glucose [Mass/Vol] 103 mg/dL 82 - 115 mg/dL [facility] Potassium [Moles/Vol] 4.2 mmol/L 3.5 - 5.1 mmol/L [facility] Comment on above: Plasma potassium dede ues may be up to 0.5 mmol/L lower than serum values. Sodium [Moles/Vol] 131 mmol/L Low 136 - 145 mmol/L [facility] Urea nitrogen [Mass/Vol] 14 mg/dL 9 - 23 mg/dL [facility] CBC W Auto Differential pane l (Bld)Ordered By: John Sharma on 04-26-2025 Basophils (Bld) [#/Vol] 0 10*3/uL 0.0 - 0.2 10*3/uL [facility] Basophils/100 WBC (Bld) 0.1 % 0.0 - 2.0 % [facility] Eosinophils (Bld) [#/Vol] 0.1 10*3/uL 0.0 - 0.5 10*3/uL [facility] Eosinophils/100 WBC (Bld) 1 % 0.0 - 6.0 % [facility] Erythrocyte distribution width (RBC) [Ratio] 14.4 % 11.5 - 15.0 % [facility] Hematocrit (Bld) [Volume fraction] 22.2 % Low 35.0 - 47.0 % [facility] Hemoglobin (Bld) [Mass/Vol] 7.7 g/dL Low 11.7 - 16.0 g/dL [facility] Immature granulocytes (Bld) [#/Vol] 0 10*3/uL NINF - 0.1 10*3/uL [facility] Immature granulocytes/100 WBC (Bld) 0.4 % 0.0 - 2.0 % [facility] Interpretation and review of laboratory results Abnormal [facility] Lymphocytes (Bld) [#/Vol] 1.4 10*3/uL 1.0 - 4.3 10*3/uL [facility] Lymphocytes/100 WBC (Bld) 21.3 % 15.0 - 45.0 % [facility] MCH (RBC) [Entitic mass] 33.2 pg 26.0 - 34.0 pg [facility] MCHC (RBC) [Mass/Vol] 34.7 % 30.5 - 36.0 % [facility] MCV (RBC) [Entitic vol] 95.7 fL 77.0 - 99.0 fL [facility] Monocytes (Bld) [#/Vol] 0.9 10*3/uL 0.0 - 0.9 10*3/uL [facility] Monocytes/100 WBC (Bld) 13.4 % High 5.0 - 13.0 % [facility] Neutrophils (Bld) [#/Vol] 4.3 10*3/uL 1.8 - 7.5 10*3/uL [facility] Neutrophils/100 WBC (Bld) 63.8 % 38.0 - 82.0 % [facility] Nucleated RBC/100 WBC (Bld) [Ratio] 0 % [facility] XOJET Platelet mean volume (Bld) [Entitic vol] 10.4 fL 9.0 - 12.7 fL [facility] Platelets (Bld) [#/Vol] 150 10*3/uL 140 - 440 10*3/uL [facility] RBC (Bld) [#/Vol] 2.32 10*6/uL Low 3.80 - 5.2 0 10*6/uL [facility] WBC (Bld) [#/Vol] 6.8 10*3/uL 3.6 - 10.7 10*3/uL [facility] CBC WITH AUTO DIFFERENTIALon 04-26-2025 Basophils (Bld) [#/Vol] 0.0 10*3/uL Normal 0.0-0.2 [facility] Comment on above: Performed By: #### L [id number] ####Hose Handler: RIKY PICKARD ([phone])[facility])[address] [place] [address] [place] Basophils/100 WBC (Bld) 0.1 % Normal 0.0-2.0 [facility] Comment on above: Performed By: #### L [id number] ####Hose Handler: RIKY PICKARD ([phone])[facility])[address] [place] [address] Eosinophils (Bld) [#/Vol] 0.1 10*3/uL Normal 0.0-0.5 [facility] Comment on above: Performed By: #### L [id number] ####Hose Handler: RIKY PICKARD ([phone])[facility] ([facility])[address] [place] [address] Eosinophils/100 WBC (Bld) 1.0 % Normal 0.0-6.0 [facility] Comment on above: Performed By: #### L [id number] ####Hose Handler: RIKY PICKARD ([phone])[facility])[address] [place] [address] Erythrocyte distribution width (RBC) [Ratio] 14.4 % Normal 11.5-15.0 [facility] Comment on above: Performed By: #### L [id number] ####Hose Handler: RIKY PICKARD ([phone])[facility])[address] [place] [address] Hematocrit (Bld) [Volume fraction] 22.2 % Low 35.0-47.0 [facility] Comment on above: Performed By: #### L [id number] ####Hose Handler: RIKY [id number])[facility] [place] [address] Hemoglobin (Bld) [Mass/Vol] 7.7 g/dL Low 11.7-16.0 [facility] Comment on above: Performed By: #### L [id number] ####Hose Handler: RIKY PICKARD ([phone])[facility])[address] [place] [address] IMMATURE GRANS % 0.4 % Normal 0.0-2.0 [facility] Comment on above: Performed By: #### L [id number] ####Hose Handler: RIKY PICKARD ([phone])[address] IMMATURE GRANS ABSOLUTE 0.0 10*3/uL Normal <0.1 [facility] Comment on above: Performed By: #### L [id number] ####Hose Handler: RIKY PICKARD ([phone])[facility])[address] [place] [address] Lymphocytes (Bld) [#/Vol] 1.4 10*3/uL Normal 1.0-4.3 [facility] Comment on above: Performed By: #### L [id number] ####Hose Handler: RIKY PICKARD ([phone])[facility])[address] [place] [address] Lymphocytes/100 WBC (Bld) 21.3 % Normal 15.0-45.0 [facility] Comment on above: Performed By: #### L [id number] ####Hose Handler: RIKY PICKARD ([phone])[facility])[address] [place] [address] MCH (RBC) [Entitic mass] 33.2 pg Normal 26.0-34.0 [facility] Comment on above: Performed By: #### L [id number] ####Hose Handler: RIKY PICKARD ([phone])[facility])[address] [place] [address] MCHC 34.7 % Normal 30.5-36.0 [facility] Comment on above: Performed By: #### L [id number] ####Hose Handler: RIKY PICKARD ([phone])[facility])[address] [place] [address] MCV (RBC) [Entitic vol] 95.7 fL Normal 77.0-99.0 [facility] Comment on above: Performed By: #### L [id number] ####Hose Handler: RIKY PICKARD ([phone])[facility] ([facility])[address] [place] [address] Monocytes (Bld) [#/Vol] 0.9 10*3/uL Normal 0.0-0.9 [facility] Comment on above: Performed By: #### L [id number] ####Hose Handler: RIKY PICKARD ([phone])[facility])[address] [place] [address] Monocytes/100 WBC (Bld) 13.4 % High 5.0-13.0 [facility] Comment on above: Performed By: #### L [id number] ####Hose Handler: RIKY PICKARD ([phone])[facility])[address] [place] [address] NEUTROPHILS ABSOLUTE 4.3 10*3/uL Normal 1.8-7.5 [facility] Comment on above: Performed By: #### L [id number] ####Hose Handler: RIKY PICKARD ([phone])[facility])[address] [place] [address] Neutrophils/100 WBC (Bld) 63.8 % Normal 38.0-82.0 [facility] Comment on above: Performed By: #### L [id number] ####Hose Handler: RIKY PICKARD ([phone])[facility])[address] [place] [address] NRBC 0.0 /100 WBCs Normal 0.0-2.0 [facility] Comment on above: Performed By: #### L [id number] ####Hose Handler: RIKY PICKARD ([phone])[facility] ([facility])[address] [place] [address] Platelet mean volume (Bld) [Entitic vol] 10.4 fL Normal 9.0-12.7 [facility] Comment on above: Performed By: #### L [id number] ####Hose Handler: RIKY PICKARD ([phone])[facility] ([facility])[address] [place] [address] Platelets (Bld) [#/Vol] 150 10*3/uL Normal 140-440 [facility] Comment on above: Performed By: #### L [id number] ####Hose Handler: RIKY PICKARD ([phone])[facility] ([facility])[address] [place] [address] RBC (Bld) [#/Vol] 2.32 10*6/uL Low 3.80-5.20 [facility] Comment on above: Performed By: #### L [id number] ####Hose Handler: RIKY PICKARD ([phone])[facility] ([facility])[address] [place] [address] WBC (Bld) [#/Vol] 6.8 10*3/uL Normal 3.6-10.7 [facility] Comment on above: Performed By: #### L [id number] ####Hose Handler: RIKY PICKARD ([phone])[facility] ([facility])[address] [place] [address] Laboratory - Chemistry and C hemistry - challengeon 04-26-2025 Magnesium [Mass/Vol] 2.3 mg/dL 1.6 - 2 .6 mg/dL [facility] Laboratory - Drug toxicology on 04-26-2025 Phenytoin [Mass/Vol] 17.8 ug/mL 10.0 - 20.0 ug/mL [facility] Phenytoin Free [Mass/Vol] 2.7 ug/mL High 1.0 - 2.5 ug/mL [facility] Phenytoin Free/Total phenytoin [Mass fraction] 15.2 % High 8.0 - 14.0 % [facility] Comment on above: INTERPRETIVE INFORMA TION: [...] be useful in dose optimization. Performed By: [employer] [address] [place] [address] [employer]: Francisco Winters MD, PhD CLIA Number: [id number] MAGNESIUMon 04-26-2025 Magnesium [Mass/Vol] 2.3 mg/dL Normal 1.6-2.6 [facility] Comment on above: Result Comment: CHERELLE Zepeda COMMENTS:Higher values can be expected in females during menses. Performed By: #### L AB113, LAB15, [id number] ####Hose Handler: RIKY PICKARD ([phone])[address] Magnesium [Mass/Vol]on 04-26 Interpretation and review of laboratory results Normal [facility] Higher values can be expected in females during menses. [facility] No Panel Informationon 04-26 Interpretation and review of laboratory results Abnormal [facility] Interpretation and review of laboratory results Abnormal [facility] PHOSPHORUSon 04-26-2025 Phosphate [Mass/Vol] 2.1 mg/dL Low 2.3-4.7 [facility] Comment on above: Performed By: #### L AB113, LAB15, [id number] ####Hose Handler: RIKY PICKARD ([id number])[address] Phosphate [Moles/Vol]on 04-14 Phosphate [Mass/Vol] 2.1 mg/dL Low 2.3 - 4 .7 mg/dL [facility] Progress Noteon 04-26-2025 Progress Note Normal [facility] [id number] 04-25-2025 [id number] Normal [facility] 25-hydroxyvitamin D3 [Mass/V ol]on 04-25-2025 Interpretation and review of laboratory results Abnormal [facility] Target concentration : 30 - 40 ng/mL; toxicity seen at concentrations >100 ng/mL Less than 20 ng/mL: Indicative of Vit D deficiency Test performed by [employer], measuring Total Vitamin D, not individual fractions. [facility] [id number] 04-25-2025 [id number] Normal [facility] BASIC METABOLIC PANELon 04-14 Anion gap [Moles/Vol] 4 mmol/L Normal 3-13 [facility] Comment on above: Performed By: #### L AB103, LAB15, [id number] ####Hose Handler: RIKY PICKARD ([phone])[facility] ([facility])[address] [place] [address] [place] Calcium [Mass/Vol] 8.3 mg/dL Low 8.8-10.0 [facility] Comment on above: Performed By: #### L AB103, LAB15, [id number] ####Hose Handler: RIKY PICKARD ([id number])[facility] ([facility])[address] [place] [address] [place] Chloride [Moles/Vol] 104 mmol/L Normal 98-107 [facility] Comment on above: Performed By: #### L AB103, LAB15, [id number] ####Hose Handler: RIKY PICKARD ([phone])[facility] [place] [address] [place] CO2 [Moles/Vol] 24 mmol/L Normal 23-31 [facility] Comment on above: Performed By: #### L AB103, LAB15, [id number] ####Hose Handler: RIKY PICKARD ([phone])[facility])[address] [place] [address] Creatinine [Mass/Vol] 0.48 mg/dL Low 0.57-1.11 [facility] Comment on above: Performed By: #### L AB103, LAB15, [id number] ####Hose Handler: RIKY PICKARD ([phone])[facility])[address] [place] [address] GLOMERULAR FILTRATION RATE ML/MIN/1.73 SQ M.PREDICTED >90.0 Normal >60.0 [facility] Comment on above: Result Comment: Calc ulation based on the Chronic Kidney Disease Epidemiology Collaboration (CKD-EPI) equation refit without adjustment for race Performed By: #### L AB103, LAB15, [id number] ####Hose Handler: RIKY PICKARD ([phone])[facility] ([facility])[address] [place] [address] Glucose [Mass/Vol] 104 mg/dL Normal 82-115 [facility] Comment on above: Performed By: #### L AB103, LAB15, [id number] ####Hose Handler: RIKY PICKARD ([phone])[facility])[address] [place] [address] Potassium [Moles/Vol] 3.8 mmol/L Normal 3.5-5.1 [facility] Comment on above: Result Comment: [facility] potassium values may be up to 0.5 mmol/L lower than serum values. Performed By: #### L AB103, LAB15, [id number] ####Hose Handler: RIKY PICKARD ([phone])[facility] ([facility])[address] [place] [address] [place] Sodium [Moles/Vol] 132 mmol/L Low 136-145 [facility] Comment on above: Performed By: #### L AB103, LAB15, [id number] ####Hose Handler: RIKY PICKARD ([phone])[facility])[address] [place] [address] [place] Urea nitrogen [Mass/Vol] 15 mg/dL Normal 9-23 [facility] Comment on above: Performed By: #### L AB103, LAB15, [id number] ####Hose Handler: RIKY PICKARD ([id number])[facility])[address] [place] [address] Basic metabolic 1998 panelon 04-25-2025 Anion gap [Moles/Vol] 4 mmol/L 3 - 13 mmol/L [facility] Calcium [Mass/Vol] 8.3 mg/dL Low 8.8 - 10. 0 mg/dL [facility] Chloride [Moles/Vol] 104 mmol/L 98 - 10 7 mmol/L [facility] CO2 [Moles/Vol] 24 mmol/L 23 - 31 mmol/L [facility] Creatinine [Mass/Vol] 0.48 mg/dL Low 0.57 - 1.11 mg/dL [facility] GFR/1.73 sq M.predicted (S/P/Bld) [Vol rate/Area] - PINF [facility] Comment on above: Calculation based on the Chronic Kidney Disease Epidemiology Collaboration (CKD-EPI) equation refit without adjustment for race Glucose [Mass/Vol] 104 mg/dL 82 - 115 mg/dL [facility] Potassium [Moles/Vol] 3.8 mmol/L 3.5 - 5.1 mmol/L [facility] Comment on above: Plasma potassium dede ues may be up to 0.5 mmol/L lower than serum values. Sodium [Moles/Vol] 132 mmol/L Low 136 - 145 mmol/L [facility] Urea nitrogen [Mass/Vol] 15 mg/dL 9 - 23 mg/dL [facility] HEMOGLOBIN AND HEMATOCRIT, B LOODon 04-25-2025 Hematocrit (Bld) [Volume fraction] 24.1 % Low 35.0-47.0 [facility] Comment on above: Performed By: #### L [id number] ####Hose Handler: RIKY PICKARD ([phone])[facility])[address] [place] [address] Hemoglobin (Bld) [Mass/Vol] 8.4 g/dL Low 11.7-16.0 [facility] Comment on above: Performed By: #### L [id number] ####Hose Handler: RIKY PICKARD ([phone])[facility] ([facility])[address] [place] [address] Hemoglobin (Bld) [Mass/Vol]o n 04-25-2025 Hematocrit (Bld) [Volume fraction] 24.1 % Low 35.0 - 47.0 % [facility] Interpretation and review of laboratory results Abnormal [facility] Laboratory - Chemistry and C hemistry - challengeon 04-25-2025 25-hydroxyvitamin D3 [Mass/Vol] 7 ng/mL Low 20 - 50 ng/mL [facility] Magnesium [Mass/Vol] 2.4 mg/dL 1.6 - 2 .6 mg/dL [facility] Laboratory - Hematology and Cell countson 04-25-2025 Hemoglobin (Bld) [Mass/Vol] 8.4 g/dL Low 11.7 - 16.0 g/dL [facility] MAGNESIUMon 04-25-2025 Magnesium [Mass/Vol] 2.4 mg/dL Normal 1.6-2.6 [facility] Comment on above: Result Comment: CHERELLE Zepeda COMMENTS:Higher values can be expected in females during menses. Performed By: #### L AB103, LAB15, [id number] ####Hose Handler: RIKY PICKARD ([phone])[facility] ([facility])[address] [place] [address] Magnesium [Mass/Vol]on 04-25 Interpretation and review of laboratory results Normal [facility] Higher values can be expected in females during menses. [facility] No Panel Informationon 04-25 Interpretation and review of laboratory results Abnormal [facility] Blood Expiration Date [id number] S [facility] Crossmatch interpretation COMP [facility] Dispense Status Released from [employer] [facility] Product Blood Type 5100 [facility] PRODUCT CODE [id number] [facility] ABO O [facility] Number [id number] [facility] RH Positive [facility] Volume 300 mL [facility] PHOSPHORUSon 04-25-2025 Phosphate [Mass/Vol] 2.0 mg/dL Low 2.3-4.7 [facility] Comment on above: Performed By: #### L AB103, LAB15, [id number] ####Hose Handler: RIKY PICKARD ([phone])[facility] [place] [address] [place] Phosphate [Moles/Vol]on 04-14 Phosphate [Mass/Vol] 2 mg/dL Low 2.3 - 4 .7 mg/dL [facility] Progress Noteon 04-25-2025 Progress Note Normal [facility] Progress Note Normal [facility] Progress Note 30-day outpatient event monitor ordered. Normal [facility] Progress Note Normal [facility] Progress Note Normal [facility] VITAMIN D DEFICIENCY SCREENI NG (VIT D 25)on 04-25-2025 VIT D 25-OH, TOTAL 7 ng/mL Low See comment [facility] Comment on above: Result Comment: CHERELLE Zepeda COMMENTS:Target concentration: 30 - 40 ng/mL; toxicity seen at concentrations >100 ng/mLLess than 20 ng/mL: Indicative of Vit D deficiencyTest performed by [employer], measuring Total Vitamin D, not individual fractions. Performed By: #### L [id number] ####Hose Handler: RIKY PICKARD ([phone])[facility] ([facility])[address] [place] [address] [place] [id number] 04-24-2025 [id number] Normal [facility] BASIC METABOLIC PANELon 04-14 Anion gap [Moles/Vol] 4 mmol/L Normal 3-13 [facility] Comment on above: Performed By: #### L AB15 ####Hose Handler: RIKY PICKARD ([phone])[facility] [facility])[address] [place] [address] [place] Calcium [Mass/Vol] 8.2 mg/dL Low 8.8-10.0 [facility] Comment on above: Performed By: #### L AB15 ####Hose Handler: RIKY PICKARD ([phone])[facility] ([facility])[address] [place] [address] [place] Chloride [Moles/Vol] 104 mmol/L Normal 98-107 [facility] Comment on above: Performed By: #### L AB15 ####Hose Handler: RIKY PICKARD ([phone])[facility] ([facility])[address] [place] [address] CO2 [Moles/Vol] 23 mmol/L Normal 23-31 [facility] Comment on above: Performed By: #### L AB15 ####Hose Handler: RIKY PICKARD ([phone])[facility] [place] [address] Creatinine [Mass/Vol] 0.51 mg/dL Low 0.57-1.11 [facility] Comment on above: Performed By: #### L AB15 ####Hose Handler: RIKY PICKARD ([phone])[facility] ([facility])[address] [place] [address] GLOMERULAR FILTRATION RATE ML/MIN/1.73 SQ M.PREDICTED >90.0 Normal >60.0 [facility] Comment on above: Result Comment: Calc ulation based on the Chronic Kidney Disease Epidemiology Collaboration (CKD-EPI) equation refit without adjustment for race Performed By: #### L AB15 ####Hose Handler: RIKY PICKARD ([phone])[facility] [place] [address] Glucose [Mass/Vol] 110 mg/dL Normal 82-115 [facility] Comment on above: Performed By: #### L AB15 ####Hose Handler: RIKY PICKARD ([phone])[facility] ([facility])[address] [place] [address] Potassium [Moles/Vol] 3.6 mmol/L Normal 3.5-5.1 [facility] Comment on above: Result Comment: [facility] potassium values may be up to 0.5 mmol/L lower than serum values. Performed By: #### L AB15 ####Hose Handler: RIKY PICKARD ([phone])[facility] [place] [address] Sodium [Moles/Vol] 131 mmol/L Low 136-145 [facility] Comment on above: Performed By: #### L AB15 ####Hose Handler: RIKY PICKARD ([phone])[facility] [place] [address] Urea nitrogen [Mass/Vol] 15 mg/dL Normal 9-23 [facility] Comment on above: Performed By: #### L AB15 ####Hose Handler: RIKY PICKARD ([phone])[facility] ([facility])[address] [place] [address] Basic metabolic 1998 panelon 04-24-2025 Anion gap [Moles/Vol] 4 mmol/L 3 - 13 mmol/L [facility] Calcium [Mass/Vol] 8.2 mg/dL Low 8.8 - 10. 0 mg/dL [facility] Chloride [Moles/Vol] 104 mmol/L 98 - 10 7 mmol/L [facility] CO2 [Moles/Vol] 23 mmol/L 23 - 31 mmol/L [facility] Creatinine [Mass/Vol] 0.51 mg/dL Low 0.57 - 1.11 mg/dL [facility] GFR/1.73 sq M.predicted (S/P/Bld) [Vol rate/Area] - PINF [facility] Comment on above: Calculation based on the Chronic Kidney Disease Epidemiology Collaboration (CKD-EPI) equation refit without adjustment for race Glucose [Mass/Vol] 110 mg/dL 82 - 115 mg/dL [facility] Interpretation and review of laboratory results Abnormal [facility] Potassium [Moles/Vol] 3.6 mmol/L 3.5 - 5.1 mmol/L [facility] Comment on above: Plasma potassium dede ues may be up to 0.5 mmol/L lower than serum values. Sodium [Moles/Vol] 131 mmol/L Low 136 - 145 mmol/L [facility] Urea nitrogen [Mass/Vol] 15 mg/dL 9 - 23 mg/dL [facility] CALCIUM, IONIZEDon CALCIUM IONIZED 4.30 mg/dL Normal 4.30-5.20 [facility] Comment on above: Performed By: #### L AB54 ####Hose Handler: RIKY PICKARD ([phone])[facility] [place] [address] PH, IONIZED CALCIUM 7.48 High 7.31-7.46 [facility] Comment on above: Performed By: #### L AB54 ####Hose Handler: RIKY PICKARD ([phone])[facility])[address] [place] [address] CBC (HEMOGRAM)on 04-24-2025 Erythrocyte distribution width (RBC) [Ratio] 14.3 % Normal 11.5-15.0 [facility] Comment on above: Performed By: #### L AB294 ####Hose Handler: RIKY PICKARD ([phone])[facility])[address] [place] [address] Hematocrit (Bld) [Volume fraction] 24.5 % Low 35.0-47.0 [facility] Comment on above: Performed By: #### L AB294 ####Hose Handler: RIKY PICKARD ([phone])[address] Hemoglobin (Bld) [Mass/Vol] 8.3 g/dL Low 11.7-16.0 [facility] Comment on above: Performed By: #### L AB294 ####Hose Handler: RIKY PICKARD ([phone])[facility])[address] [place] [address] IPF 5 Normal [facility] Comment on above: Performed By: #### L AB294 ####Hose Handler: RIKY PICKARD ([phone])[facility])[address] [place] [address] MCH (RBC) [Entitic mass] 32.8 pg Normal 26.0-34.0 [facility] Comment on above: Performed By: #### L AB294 ####Hose Handler: RIKY PICKARD ([phone])[address] MCHC 33.9 % Normal 30.5-36.0 [facility] Comment on above: Performed By: #### L AB294 ####Hose Handler: RIKY PICKARD ([phone])[facility] ([facility])[address] [place] [address] MCV (RBC) [Entitic vol] 96.8 fL Normal 77.0-99.0 [facility] Comment on above: Performed By: #### L AB294 ####Hose Handler: RIKY PICKARD ([phone])[facility] ([facility])[address] [place] [address] Platelet mean volume (Bld) [Entitic vol] 10.6 fL Normal 9.0-12.7 [facility] Comment on above: Performed By: #### L AB294 ####Hose Handler: RIKY PICKARD ([phone])[facility] ([facility])[address] [place] [address] Platelets (Bld) [#/Vol] 97 10*3/uL Low 140-440 [facility] Comment on above: Performed By: #### L AB294 ####Hose Handler: RIKY PICKARD ([phone])[facility] ([facility])[address] [place] [address] RBC (Bld) [#/Vol] 2.53 10*6/uL Low 3.80-5.20 [facility] Comment on above: Performed By: #### L AB294 ####Hose Handler: RIKY PICKARD ([phone])[facility])[address] [place] [address] WBC (Bld) [#/Vol] 6.3 10*3/uL Normal 3.6-10.7 [facility] Comment on above: Performed By: #### L AB294 ####Hose Handler: RIKY PICKARD ([phone])[facility])[address] [place] [address] Erythrocyte distribution width (RBC) [Ratio] 14.4 % Normal 11.5-15.0 [facility] Comment on above: Performed By: #### L AB294 ####Hose Handler: RIKY PICKARD ([phone])[facility])[address] [place] [address] Hematocrit (Bld) [Volume fraction] 25.3 % Low 35.0-47.0 [facility] Comment on above: Performed By: #### L AB294 ####Hose Handler: RIKY PICKARD ([phone])[facility])[address] [place] [address] Hemoglobin (Bld) [Mass/Vol] 8.8 g/dL Low 11.7-16.0 [facility] Comment on above: Performed By: #### L AB294 ####Hose Handler: RIKY PICKARD ([phone])[facility])[address] [place] [address] IPF 5 Normal [facility] Comment on above: Performed By: #### L AB294 ####Hose Handler: RIKY PICKARD ([phone])[facility])[address] [place] [address] MCH (RBC) [Entitic mass] 33.2 pg Normal 26.0-34.0 [facility] Comment on above: Performed By: #### L AB294 ####Hose Handler: RIKY PIKCARD ([phone])[facility])[address] [place] [address] MCHC 34.8 % Normal 30.5-36.0 [facility] Comment on above: Performed By: #### L AB294 ####Hose Handler: RIKY PICKARD ([phone])[facility])[address] [place] [address] MCV (RBC) [Entitic vol] 95.5 fL Normal 77.0-99.0 [facility] Comment on above: Performed By: #### L AB294 ####Hose Handler: RIKY PICKARD ([phone])[facility])[address] [place] [address] Platelet mean volume (Bld) [Entitic vol] 10.5 fL Normal 9.0-12.7 [facility] Comment on above: Performed By: #### L AB294 ####Hose Handler: RIKY PICKARD ([phone])[facility] ([facility])[address] [place] [address] Platelets (Bld) [#/Vol] 87 10*3/uL Low 140-440 [facility] Comment on above: Performed By: #### L AB294 ####Hose Handler: RIKY PICKARD ([phone])[facility] ([facility])[address] [place] [address] RBC (Bld) [#/Vol] 2.65 10*6/uL Low 3.80-5.20 [facility] Comment on above: Performed By: #### L AB294 ####Hose Handler: RIKY PICKARD ([phone])[facility] ([facility])[address] [place] [address] WBC (Bld) [#/Vol] 6.0 10*3/uL Normal 3.6-10.7 [facility] Comment on above: Performed By: #### L AB294 ####Hose Handler: RIKY PICKARD ([phone])[facility])[address] [place] [address] CBC panel Auto (Bld)on 04-24 Erythrocyte distribution width (RBC) [Ratio] 14.3 % 11.5 - 15.0 % [facility] Hematocrit (Bld) [Volume fraction] 24.5 % Low 35.0 - 47.0 % [facility] Hemoglobin (Bld) [Mass/Vol] 8.3 g/dL Low 11.7 - 16.0 g/dL [facility] Interpretation and review of laboratory results Abnormal [facility] IPF 5 [facility] MCH (RBC) [Entitic mass] 32.8 pg 26.0 - 34.0 pg [facility] MCHC (RBC) [Mass/Vol] 33.9 % 30.5 - 36.0 % [facility] MCV (RBC) [Entitic vol] 96.8 fL 77.0 - 99.0 fL [facility] Platelet mean volume (Bld) [Entitic vol] 10.6 fL 9.0 - 12.7 fL [facility] Platelets (Bld) [#/Vol] 97 10*3/uL Low 140 - 440 10*3/uL [facility] RBC (Bld) [#/Vol] 2.53 10*6/uL Low 3.80 - 5.2 0 10*6/uL [facility] WBC (Bld) [#/Vol] 6.3 10*3/uL 3.6 - 10.7 10*3/uL [facility] CBC panel Auto (Bld)Ordered By: Erinn Elliott on 04-24-2025 Erythrocyte distribution width (RBC) [Ratio] 14.4 % 11.5 - 15.0 % [facility] Hematocrit (Bld) [Volume fraction] 25.3 % Low 35.0 - 47.0 % [facility] Hemoglobin (Bld) [Mass/Vol] 8.8 g/dL Low 11.7 - 16.0 g/dL [facility] Interpretation and review of laboratory results Abnormal [facility] IPF 5 [facility] MCH (RBC) [Entitic mass] 33.2 pg 26.0 - 34.0 pg [facility] MCHC (RBC) [Mass/Vol] 34.8 % 30.5 - 36.0 % [facility] MCV (RBC) [Entitic vol] 95.5 fL 77.0 - 99.0 fL [facility] Platelet mean volume (Bld) [Entitic vol] 10.5 fL 9.0 - 12.7 fL [facility] Platelets (Bld) [#/Vol] 87 10*3/uL Low 140 - 440 10*3/uL [facility] RBC (Bld) [#/Vol] 2.65 10*6/uL Low 3.80 - 5.2 0 10*6/uL [facility] WBC (Bld) [#/Vol] 6 10*3/uL 3.6 - 10.7 10*3/uL [facility] Calcium.ionized [Moles/Vol]O rdered By: Krupa Dia on 04-24-2025 Calcium.ionized (Bld) [Moles/Vol] 4.3 mg/dL 4.30 - 5.20 mg/dL [facility] Interpretation and review of laboratory results Abnormal [facility] PH, IONIZED CALCIUM 7.48 High 7.31 - 7.46 [facility] Consulton 04-24-2025 Consult Normal [facility] Laboratory - Chemistry and C hemistry - challengeon 04-24-2025 TSH Qn 1.44 m[IU]/L [facility] Magnesium [Mass/Vol] 1.9 mg/dL 1.6 - 2 .6 mg/dL [facility] Magnesium [Mass/Vol]on 04-24 Interpretation and review of laboratory results Normal [facility] Higher values can be expected in females during menses. [facility] PHENYTOIN TOTAL AND FREEon 0 04-24-2025 PHENYTOIN - FREE LEVEL 2.7 ug/mL High 1.0-2.5 [facility] Comment on above: Performed By: #### L [id number] ####[employer] ([facility])[address] [place] [address] [place] PHENYTOIN - PERCENT FREE 15.2 % High 8.0-14.0 [facility] Comment on above: Result Comment: INTE [...] and may be useful in doseoptimization.Performed By: [employer] [place] [id number] Director: Francisco Winters MD, PhDCLIA Number: [id number] Performed By: #### L AB176 ####[facility] ([facility])[address] [place] [address] [place] PHENYTOIN - TOTAL-[facility] 17.8 ug/mL Normal 10.0-20.0 [facility] Comment on above: Performed By: #### L AB176 ####[facility] ([facility])[address] [place] [address] [place] Phosphate [Moles/Vol]on 04-14 Interpretation and review of laboratory results Abnormal [facility] Phosphate [Mass/Vol] 1.8 mg/dL Low 2.3 - 4 .7 mg/dL [facility] Progress Noteon 04-24-2025 Progress Note Normal [facility] Progress Note Normal [facility] Progress Note Normal [facility] Progress [facility] Normal [facility] Progress Note Normal [facility] THYROID STIMULATING HORMONEo n 04-24-2025 THYROID STIMULATING HORMONE 1.44 uIU/mL Normal 0.35-4.94 [facility] Comment on above: Performed By: #### L AB129 ####Hose Handler: RIKY PICKARD ([phone])[facility] ([facility])[address] [place] [address] [place] TSH Qnon 04-24-2025 Interpretation and review of laboratory results Normal [facility] [id number] 04-23-2025 [id number] Normal [facility] BASIC METABOLIC PANELon 04-14 Anion gap [Moles/Vol] 6 mmol/L Normal 3-13 [facility] Comment on above: Performed By: #### L AB15, [id number], [id number] ####Hose Handler: RIKY PICKARD ([phone])[facility] ([facility])[address] [place] [address] [place] Calcium [Mass/Vol] 7.9 mg/dL Low 8.8-10.0 [facility] Comment on above: Performed By: #### L AB15, [id number], [id number] ####Hose Handler: RIKY PICKARD ([phone])[facility] ([facility])[address] [place] [address] [place] Chloride [Moles/Vol] 105 mmol/L Normal 98-107 [facility] Comment on above: Performed By: #### L AB15, [id number], [id number] ####Hose Handler: RIKY PICKARD ([phone])[facility])[address] [place] [address] CO2 [Moles/Vol] 20 mmol/L Low 23-31 [facility] Comment on above: Performed By: #### L AB15, [id number], [id number] ####Hose Handler: RIKY PICKARD ([phone])[facility])[address] [place] [address] Creatinine [Mass/Vol] 0.52 mg/dL Low 0.57-1.11 [facility] Comment on above: Performed By: #### [place] AB15, [id number], [id number] ####Hose Handler: RIKY PICKARD ([phone])[facility])[address] [place] [address] GLOMERULAR FILTRATION RATE ML/MIN/1.73 SQ M.PREDICTED >90.0 Normal >60.0 [facility] Comment on above: Result Comment: Calc ulation based on the Chronic Kidney Disease Epidemiology Collaboration (CKD-EPI) equation refit without adjustment for race Performed By: #### L AB15, [id number], [id number] ####Hose Handler: RIKY PICKARD ([phone])[facility] ([facility])[address] [place] [address] [place] Glucose [Mass/Vol] 151 mg/dL High 82-115 [facility] Comment on above: Performed By: #### L AB15, [id number], [id number] ####Hose Handler: RIKY PICKARD ([phone])[facility])[address] [place] [address] [place] Potassium [Moles/Vol] 3.7 mmol/L Normal 3.5-5.1 [facility] Comment on above: Result Comment: [facility] potassium values may be up to 0.5 mmol/L lower than serum values. Performed By: #### L AB15, [id number], [id number] ####Hose Handler: RIKY PICKARD ([phone])[facility] [place] [address] [place] Sodium [Moles/Vol] 131 mmol/L Low 136-145 [facility] Comment on above: Performed By: #### L AB15, [id number], [id number] ####Hose Handler: RIKY PICKARD ([phone])[facility] [place] [address] [place] Urea nitrogen [Mass/Vol] 15 mg/dL Normal 9-23 [facility] Comment on above: Performed By: #### L AB15, [id number], [id number] ####Hose Handler: RIKY PICKARD ([phone])[facility] ([facility])[address] [place] [address] Anion gap [Moles/Vol] 5 mmol/L Normal 3-13 [facility] Comment on above: Performed By: #### L AB15 ####Hose Handler: RIKY PICKARD ([phone])[facility] [place] [address] Calcium [Mass/Vol] 7.8 mg/dL Low 8.8-10.0 [facility] Comment on above: Performed By: #### L AB15 ####Hose Handler: RIKY PICKARD ([phone])[facility] [place] [address] [place] Chloride [Moles/Vol] 105 mmol/L Normal 98-107 [facility] Comment on above: Performed By: #### L AB15 ####Hose Handler: RIKY PICKARD ([phone])[facility] [place] [address] [place] CO2 [Moles/Vol] 22 mmol/L Low 23-31 [facility] Comment on above: Performed By: #### L AB15 ####Hose Handler: RIKY PICKARD ([phone])[facility] [place] [address] [place] Creatinine [Mass/Vol] 0.59 mg/dL Normal 0.57-1.11 [facility] Comment on above: Performed By: #### L AB15 ####Hose Handler: RIKY PICKARD ([phone])[facility])[address] [place] [address] GLOMERULAR FILTRATION RATE ML/MIN/1.73 SQ M.PREDICTED 89.6 mL/min/1.73m*2 Normal >60.0 [facility] Comment on above: Result Comment: Calc ulation based on the Chronic Kidney Disease Epidemiology Collaboration (CKD-EPI) equation refit without adjustment for race Performed By: #### L AB15 ####Hose Handler: RIKY PICKARD ([phone])[facility])[address] [place] [address] Glucose [Mass/Vol] 112 mg/dL Normal 82-115 [facility] Comment on above: Performed By: #### L AB15 ####Hose Handler: RIKY PICKARD ([phone])[address] Potassium [Moles/Vol] 3.6 mmol/L Normal 3.5-5.1 [facility] Comment on above: Result Comment: [facility] potassium values may be up to 0.5 mmol/L lower than serum values. Performed By: #### L AB15 ####Hose Handler: RIKY PICKARD ([phone])[address] Sodium [Moles/Vol] 132 mmol/L Low 136-145 [facility] Comment on above: Performed By: #### L AB15 ####Hose Handler: RIKY PICKARD ([phone])[facility])[address] [place] [address] Urea nitrogen [Mass/Vol] 21 mg/dL Normal 9-23 [facility] Comment on above: Performed By: #### L AB15 ####[employer]ose Handler: RIKY [id number])[address] Basic metabolic 1998 panelon 04-23-2025 Anion gap [Moles/Vol] 6 mmol/L 3 - 13 mmol/L [facility] Calcium [Mass/Vol] 7.9 mg/dL Low 8.8 - 10. 0 mg/dL [facility] Chloride [Moles/Vol] 105 mmol/L 98 - 10 7 mmol/L [facility] CO2 [Moles/Vol] 20 mmol/L Low 23 - 31 mmol/L [facility] Creatinine [Mass/Vol] 0.52 mg/dL Low 0.57 - 1.11 mg/dL [facility] GFR/1.73 sq M.predicted (S/P/Bld) [Vol rate/Area] - [facility] Comment on above: Calculation based on the Chronic Kidney Disease Epidemiology Collaboration (CKD-EPI) equation refit without adjustment for race Glucose [Mass/Vol] 151 mg/dL High 82 - 115 mg/dL [facility] Interpretation and review of laboratory results Abnormal [facility] Potassium [Moles/Vol] 3.7 mmol/L 3.5 - 5.1 mmol/L [facility] Comment on above: Plasma potassium dede ues may be up to 0.5 mmol/L lower than serum values. Sodium [Moles/Vol] 131 mmol/L Low 136 - 145 mmol/L [facility] Urea nitrogen [Mass/Vol] 15 mg/dL 9 - 23 mg/dL [facility] Anion gap [Moles/Vol] 5 mmol/L 3 - 13 mmol/L [facility] Calcium [Mass/Vol] 7.8 mg/dL Low 8.8 - 10. 0 mg/dL [facility] Chloride [Moles/Vol] 105 mmol/L 98 - 10 7 mmol/L [facility] CO2 [Moles/Vol] 22 mmol/L Low 23 - 31 mmol/L [facility] Creatinine [Mass/Vol] 0.59 mg/dL 0.57 - 1.11 mg/dL [facility] GFR/1.73 sq M.predicted (S/P/Bld) [Vol rate/Area] 89.6 mL/min - [facility] Comment on above: Calculation based on the Chronic Kidney Disease Epidemiology Collaboration (CKD-EPI) equation refit without adjustment for race Glucose [Mass/Vol] 112 mg/dL 82 - 115 mg/dL [facility] Interpretation and review of laboratory results Abnormal [facility] Potassium [Moles/Vol] 3.6 mmol/L 3.5 - 5.1 mmol/L [facility] Comment on above: Plasma potassium dede ues may be up to 0.5 mmol/L lower than serum values. Sodium [Moles/Vol] 132 mmol/L Low 136 - 145 mmol/L [facility] Urea nitrogen [Mass/Vol] 21 mg/dL 9 - 23 mg/dL [facility] CBC (HEMOGRAM)on 04-23-2025 Erythrocyte distribution width (RBC) [Ratio] 14.4 % Normal 11.5-15.0 [facility] Comment on above: Performed By: #### L [id number] ####Hose Handler: RIKY PICKARD ([phone])[facility])[address] [place] [address] Hematocrit (Bld) [Volume fraction] 24.0 % Low 35.0-47.0 [facility] Comment on above: Performed By: #### L [id number] ####Hose Handler: RIKY PICKARD ([phone])[facility])[address] [place] [address] Hemoglobin (Bld) [Mass/Vol] 8.5 g/dL Low 11.7-16.0 [facility] Comment on above: Performed By: #### L [id number] ####Hose Handler: RIKY PICKARD ([phone])[facility])[address] [place] [address] [place] IPF 4 Normal [facility] Comment on above: Performed By: #### L [id number] ####Hose Handler: RIKY PICKARD ([phone])[facility])[address] [place] [address] MCH (RBC) [Entitic mass] 33.5 pg Normal 26.0-34.0 [facility] Comment on above: Performed By: #### L [id number] ####Hose Handler: RIKY PICKARD ([id number])[facility])[address] [place] [address] MCHC 35.4 % Normal 30.5-36.0 [facility] Comment on above: Performed By: #### L [id number] ####Hose Handler: RIKY PICKARD ([id number])[facility])[address] [place] [address] MCV (RBC) [Entitic vol] 94.5 fL Normal 77.0-99.0 [facility] Comment on above: Performed By: #### L [id number] ####Hose Handler: RIKY PICKARD ([id number])[facility] ([facility])[address] [place] [address] Platelet mean volume (Bld) [Entitic vol] 10.7 fL Normal 9.0-12.7 [facility] Comment on above: Performed By: #### L [id number] ####Hose Handler: RKIY PICKARD ([id number])[facility] ([facility])[address] [place] [address] Platelets (Bld) [#/Vol] 98 10*3/uL Low 140-440 [facility] Comment on above: Performed By: #### L AB294 ####Hose Handler: RIKY PICKARD ([id number])[facility] ([facility])[address] [place] [address] RBC (Bld) [#/Vol] 2.54 10*6/uL Low 3.80-5.20 [facility] Comment on above: Performed By: #### L [id number] ####Hose Handler: RIKY PICKARD ([id number])[facility] ([facility])[address] [place] [address] WBC (Bld) [#/Vol] 7.5 10*3/uL Normal 3.6-10.7 [facility] Comment on above: Performed By: #### L [id number] ####Hose Handler: RIKY PICKARD ([id number])[facility])[address] [place] [address] Erythrocyte distribution width (RBC) [Ratio] 14.3 % Normal 11.5-15.0 [facility] Comment on above: Performed By: #### L [id number] ####Hose Handler: RIKY PICKARD ([phone])[facility])[address] [place] [address] Hematocrit (Bld) [Volume fraction] 25.5 % Low 35.0-47.0 [facility] Comment on above: Performed By: #### L AB294 ####Hose Handler: RIKY PICKARD ([id number])[facility])[address] [place] [address] Hemoglobin (Bld) [Mass/Vol] 8.8 g/dL Low 11.7-16.0 [facility] Comment on above: Performed By: #### L AB294 ####Hose Handler: RIKY PICKARD ([phone])[facility])[address] [place] [address] IPF 4 Normal [facility] Comment on above: Performed By: #### L AB294 ####Hose Handler: RIKY PICKARD ([id number])[facility] ([facility])[address] [place] [address] MCH (RBC) [Entitic mass] 33.0 pg Normal 26.0-34.0 [facility] Comment on above: Performed By: #### L AB294 ####Hose Handler: RIKY PICKARD ([id number])[facility])[address] [place] [address] MCHC 34.5 % Normal 30.5-36.0 [facility] Comment on above: Performed By: #### L AB294 ####Hose Handler: RIKY PICKARD ([phone])[facility])[address] [place] [address] MCV (RBC) [Entitic vol] 95.5 fL Normal 77.0-99.0 [facility] Comment on above: Performed By: #### L AB294 ####Hose Handler: RIKY PICKARD ([id number])[facility])[address] [place] [address] Platelet mean volume (Bld) [Entitic vol] 10.7 fL Normal 9.0-12.7 [facility] Comment on above: Performed By: #### L AB294 ####Hose Handler: RIKY PICKARD ([id number])[facility] ([facility])[address] [place] [address] Platelets (Bld) [#/Vol] 84 10*3/uL Low 140-440 [facility] Comment on above: Performed By: #### L AB294 ####Hose Handler: RIKY PICKARD ([phone])[facility] ([facility])[address] [place] [address] RBC (Bld) [#/Vol] 2.67 10*6/uL Low 3.80-5.20 [facility] Comment on above: Performed By: #### L AB294 ####Hose Handler: RIKY PICKARD ([id number])[facility] ([facility])[address] [place] [address] WBC (Bld) [#/Vol] 6.6 10*3/uL Normal 3.6-10.7 [facility] Comment on above: Performed By: #### L AB294 ####Hose Handler: RIKY PICKARD ([id number])[facility])[address] [place] [address] Erythrocyte distribution width (RBC) [Ratio] 14.5 % Normal 11.5-15.0 [facility] Comment on above: Performed By: #### L AB294 ####Hose Handler: RIKY PICKARD ([id number])[facility])[address] [place] [address] Hematocrit (Bld) [Volume fraction] 25.3 % Low 35.0-47.0 [facility] Comment on above: Performed By: #### L AB294 ####Hose Handler: RIKY PICKARD ([id number])[facility])[address] [place] [address] Hemoglobin (Bld) [Mass/Vol] 8.8 g/dL Low 11.7-16.0 [facility] Comment on above: Performed By: #### L [id number] ####Hose Handler: RIKY PICKARD ([id number])[facility])[address] [place] [address] IPF 4 Normal [facility] Comment on above: Performed By: #### L AB294 ####Hose Handler: RIKY PICKARD ([id number])[facility])[address] [place] [address] MCH (RBC) [Entitic mass] 33.1 pg Normal 26.0-34.0 [facility] Comment on above: Performed By: #### L AB294 ####Hose Handler: RIKY PICKARD ([id number])[facility])[address] [place] [address] MCHC 34.8 % Normal 30.5-36.0 [facility] Comment on above: Performed By: #### L AB294 ####Hose Handler: RIKY PICKARD ([id number])[facility] ([facility])[address] [place] [address] MCV (RBC) [Entitic vol] 95.1 fL Normal 77.0-99.0 [facility] Comment on above: Performed By: #### L AB294 ####Hose Handler: RIKY PICKARD ([id number])[facility])[address] [place] [address] Platelet mean volume (Bld) [Entitic vol] 10.5 fL Normal 9.0-12.7 [facility] Comment on above: Performed By: #### L AB294 ####Hose Handler: RIKY PICKARD ([id number])[facility])[address] [place] [address] Platelets (Bld) [#/Vol] 93 10*3/uL Low 140-440 [facility] Comment on above: Performed By: #### L [id number] ####Hose Handler: RIKY PICKARD ([id number])[facility])[address] [place] [address] RBC (Bld) [#/Vol] 2.66 10*6/uL Low 3.80-5.20 [facility] Comment on above: Performed By: #### L AB294 ####Hose Handler: RIKY PICKARD ([id number])[facility])[address] [place] [address] WBC (Bld) [#/Vol] 8.7 10*3/uL Normal 3.6-10.7 [facility] Comment on above: Performed By: #### L AB294 ####Hose Handler: RIKY PICKARD ([id number])[facility])[address] [place] [address] Erythrocyte distribution width (RBC) [Ratio] 14.3 % Normal 11.5-15.0 [facility] Comment on above: Performed By: #### L AB294 ####Hose Handler: RIKY PICKARD ([id number])[facility])[address] [place] [address] Hematocrit (Bld) [Volume fraction] 26.2 % Low 35.0-47.0 [facility] Comment on above: Performed By: #### L AB294 ####Hose Handler: RIKY PICKARD ([id number])[address] Hemoglobin (Bld) [Mass/Vol] 9.1 g/dL Low 11.7-16.0 [facility] Comment on above: Performed By: #### L [id number] ####Hose Handler: RIKY PICKARD ([id number])[facility])[address] [place] [address] IPF 4 Normal [facility] Comment on above: Performed By: #### L AB294 ####Hose Handler: RIKY PICKARD ([id number])[facility])[address] [place] [address] MCH (RBC) [Entitic mass] 32.9 pg Normal 26.0-34.0 [facility] Comment on above: Performed By: #### L AB294 ####Hose Handler: RIKY PICKARD ([id number])[facility])[address] [place] [address] MCHC 34.7 % Normal 30.5-36.0 [facility] Comment on above: Performed By: #### L AB294 ####Hose Handler: RIKY PICKARD ([id number])[facility])[address] [place] [address] MCV (RBC) [Entitic vol] 94.6 fL Normal 77.0-99.0 [facility] Comment on above: Performed By: #### L AB294 ####Hose Handler: RIKY PICKARD ([phone])[facility])[address] [place] [address] Platelet mean volume (Bld) [Entitic vol] 10.5 fL Normal 9.0-12.7 [facility] Comment on above: Performed By: #### L [id number] ####Hose Handler: RIKY PICKARD ([id number])[facility])[address] [place] [address] Platelets (Bld) [#/Vol] 87 10*3/uL Low 140-440 [facility] Comment on above: Performed By: #### L [id number] ####Hose Handler: RIKY PICKARD ([phone])[facility])[address] [place] [address] RBC (Bld) [#/Vol] 2.77 10*6/uL Low 3.80-5.20 [facility] Comment on above: Performed By: #### L AB294 ####Hose Handler: RIKY PICKARD ([id number])[facility])[address] [place] [address] WBC (Bld) [#/Vol] 7.3 10*3/uL Normal 3.6-10.7 [facility] Comment on above: Performed By: #### L [id number] ####Hose Handler: RIKY PICKARD ([id number])[address] Erythrocyte distribution width (RBC) [Ratio] 14.6 % Normal 11.5-15.0 [facility] Comment on above: Performed By: #### L [id number] ####Hose Handler: RIKY PICKARD ([id number])[address] Hematocrit (Bld) [Volume fraction] 25.3 % Low 35.0-47.0 [facility] Comment on above: Performed By: #### L AB294 ####Hose Handler: RIKY PICKARD ([id number])[address] Hemoglobin (Bld) [Mass/Vol] 8.9 g/dL Low 11.7-16.0 [facility] Comment on above: Performed By: #### L [id number] ####Hose Handler: RIKY PICKARD ([id number])[address] IPF 3 Normal [facility] Comment on above: Performed By: #### L AB294 ####Hose Handler: RIKY PICKARD ([id number])[address] MCH (RBC) [Entitic mass] 33.2 pg Normal 26.0-34.0 [facility] Comment on above: Performed By: #### L [id number] ####Hose Handler: RIKY PICKARD ([id number])[address] MCHC 35.2 % Normal 30.5-36.0 [facility] Comment on above: Performed By: #### L AB294 ####Hose Handler: RIKY PICKARD ([id number])[address] MCV (RBC) [Entitic vol] 94.4 fL Normal 77.0-99.0 [facility] Comment on above: Performed By: #### L [id number] ####Hose Handler: RIKY PICKARD ([id number])[facility])[address] [place] [address] Platelet mean volume (Bld) [Entitic vol] 11.0 fL Normal 9.0-12.7 [facility] Comment on above: Performed By: #### L [id number] ####Hose Handler: RIKY PICKARD ([id number])[facility] ([facility])[address] [place] [address] Platelets (Bld) [#/Vol] 85 10*3/uL Low 140-440 [facility] Comment on above: Performed By: #### L [id number] ####Hose Handler: RIKY PICKARD ([id number])[facility] ([facility])[address] [place] [address] RBC (Bld) [#/Vol] 2.68 10*6/uL Low 3.80-5.20 [facility] Comment on above: Performed By: #### L [id number] ####Hose Handler: RIKY PICKARD ([id number])[facility] ([facility])[address] [place] [address] WBC (Bld) [#/Vol] 7.1 10*3/uL Normal 3.6-10.7 [facility] Comment on above: Performed By: #### L [id number] ####Hose Handler: RIKY PICKARD ([id number])[facility])[address] [place] [address] CBC panel Auto (Bld)on 04-23 Erythrocyte distribution width (RBC) [Ratio] 14.4 % 11.5 - 15.0 % [facility] Hematocrit (Bld) [Volume fraction] 24 % Low 35.0 - 47.0 % [facility] Hemoglobin (Bld) [Mass/Vol] 8.5 g/dL Low 11.7 - 16.0 g/dL [facility] Interpretation and review of laboratory results Abnormal [facility] IPF 4 [facility] MCH (RBC) [Entitic mass] 33.5 pg 26.0 - 34.0 pg [facility] MCHC (RBC) [Mass/Vol] 35.4 % 30.5 - 36.0 % [facility] MCV (RBC) [Entitic vol] 94.5 fL 77.0 - 99.0 fL [facility] Platelet mean volume (Bld) [Entitic vol] 10.7 fL 9.0 - 12.7 fL [facility] Platelets (Bld) [#/Vol] 98 10*3/uL Low 140 - 440 10*3/uL [facility] RBC (Bld) [#/Vol] 2.54 10*6/uL Low 3.80 - 5.2 0 10*6/uL [facility] WBC (Bld) [#/Vol] 7.5 10*3/uL 3.6 - 10.7 10*3/uL [facility] Erythrocyte distribution width (RBC) [Ratio] 14.3 % 11.5 - 15.0 % [facility] Hematocrit (Bld) [Volume fraction] 25.5 % Low 35.0 - 47.0 % [facility] Hemoglobin (Bld) [Mass/Vol] 8.8 g/dL Low 11.7 - 16.0 g/dL [facility] Interpretation and review of laboratory results Abnormal [facility] IPF 4 [facility] MCH (RBC) [Entitic mass] 33 pg 26.0 - 34.0 pg [facility] MCHC (RBC) [Mass/Vol] 34.5 % 30.5 - 36.0 % [facility] MCV (RBC) [Entitic vol] 95.5 fL 77.0 - 99.0 fL [facility] Platelet mean volume (Bld) [Entitic vol] 10.7 fL 9.0 - 12.7 fL [facility] Platelets (Bld) [#/Vol] 84 10*3/uL Low 140 - 440 10*3/uL [facility] RBC (Bld) [#/Vol] 2.67 10*6/uL Low 3.80 - 5.2 0 10*6/uL [facility] WBC (Bld) [#/Vol] 6.6 10*3/uL 3.6 - 10.7 10*3/uL [facility] Erythrocyte distribution width (RBC) [Ratio] 14.3 % 11.5 - 15.0 % [facility] Hematocrit (Bld) [Volume fraction] 26.2 % Low 35.0 - 47.0 % [facility] Hemoglobin (Bld) [Mass/Vol] 9.1 g/dL Low 11.7 - 16.0 g/dL [facility] Interpretation and review of laboratory results Abnormal [facility] IPF 4 [facility] MCH (RBC) [Entitic mass] 32.9 pg 26.0 - 34.0 pg [facility] MCHC (RBC) [Mass/Vol] 34.7 % 30.5 - 36.0 % [facility] MCV (RBC) [Entitic vol] 94.6 fL 77.0 - 99.0 fL [facility] Platelet mean volume (Bld) [Entitic vol] 10.5 fL 9.0 - 12.7 fL [facility] Platelets (Bld) [#/Vol] 87 10*3/uL Low 140 - 440 10*3/uL [facility] RBC (Bld) [#/Vol] 2.77 10*6/uL Low 3.80 - 5.2 0 10*6/uL [facility] WBC (Bld) [#/Vol] 7.3 10*3/uL 3.6 - 10.7 10*3/uL [facility] CBC panel Auto (Bld)Ordered By: Regina Valencia on 04-23-2025 Erythrocyte distribution width (RBC) [Ratio] 14.5 % 11.5 - 15.0 % [facility] Hematocrit (Bld) [Volume fraction] 25.3 % Low 35.0 - 47.0 % [facility] Hemoglobin (Bld) [Mass/Vol] 8.8 g/dL Low 11.7 - 16.0 g/dL [facility] Interpretation and review of laboratory results Abnormal [facility] IPF 4 [facility] MCH (RBC) [Entitic mass] 33.1 pg 26.0 - 34.0 pg [facility] MCHC (RBC) [Mass/Vol] 34.8 % 30.5 - 36.0 % [facility] MCV (RBC) [Entitic vol] 95.1 fL 77.0 - 99.0 fL [facility] Platelet mean volume (Bld) [Entitic vol] 10.5 fL 9.0 - 12.7 fL [facility] Platelets (Bld) [#/Vol] 93 10*3/uL Low 140 - 440 10*3/uL [facility] RBC (Bld) [#/Vol] 2.66 10*6/uL Low 3.80 - 5.2 0 10*6/uL [facility] WBC (Bld) [#/Vol] 8.7 10*3/uL 3.6 - 10.7 10*3/uL [facility] CBC panel Auto (Bld)Ordered By: Kortney Ferreira on 04-23-2025 Erythrocyte distribution width (RBC) [Ratio] 14.6 % 11.5 - 15.0 % [facility] Hematocrit (Bld) [Volume fraction] 25.3 % Low 35.0 - 47.0 % [facility] Hemoglobin (Bld) [Mass/Vol] 8.9 g/dL Low 11.7 - 16.0 g/dL [facility] Interpretation and review of laboratory results Abnormal [facility] IPF 3 [facility] MCH (RBC) [Entitic mass] 33.2 pg 26.0 - 34.0 pg [facility] MCHC (RBC) [Mass/Vol] 35.2 % 30.5 - 36.0 % [facility] MCV (RBC) [Entitic vol] 94.4 fL 77.0 - 99.0 fL [facility] Platelet mean volume (Bld) [Entitic vol] 11 fL 9.0 - 12.7 fL [facility] Platelets (Bld) [#/Vol] 85 10*3/uL Low 140 - 440 10*3/uL [facility] RBC (Bld) [#/Vol] 2.68 10*6/uL Low 3.80 - 5.2 0 10*6/uL [facility] WBC (Bld) [#/Vol] 7.1 10*3/uL 3.6 - 10.7 10*3/uL [facility] Consulton 04-23-2025 Consult Normal [facility] ECG 12-LEADon 04-23-2025 ECG 12-LEAD IMPRESSION: Sinus rhythm Left anterior fascicular block Electronically Signed On 04-23-2025 19:25:03 EDT by Brandon Davidson Normal [facility] ECG 12-LEAD IMPRESSION: Atrial fibrillation LAD, consider left anterior fascicular block Electronically Signed On 04-23-2025 17:58:46 EDT by [employer] Normal [facility] MAGNESIUMon 04-23-2025 Magnesium [Mass/Vol] 1.9 mg/dL Normal 1.6-2.6 [facility] Comment on above: Result Comment: ORDE R COMMENTS:Higher values can be expected in females during menses. Performed By: #### L AB15, [id number], [id number] ####Hose Handler: RIKY PICKARD ([id number])[facility] ([facility])[address] [place] [address] No Panel InformationOrdered By: Brandon Davidson on 04-23-2025 P Hagaman 55 degrees [facility] Work Phone: KS Interval 169 ms [facility] Work Phone: QRS Hagaman -64 degrees [facility] Work Phone: QRSD Interval 82 ms [facility] Work Phone: QT Interval 376 ms [facility] Work Phone: QTC Interval 455 ms [facility] Work Phone: T Wave Hagaman 73 degrees [facility] Work Phone: [facility] Work Phone: No Panel Informationon 04-23 Sinus rhythm Left anterior fascicular block Electronically Signed On 04-23-2025 19:25:03 EDT by [employer] [facility] Brandon Davidson MD - 04/23/2025 IMPRESSION: Sinus rhythm Left anterior fascicular block Electronically Signed On 04-23-2025 19:25:03 EDT by [employer] P Hagaman 0 degrees [facility] [place] Interval 0 ms [facility] QRS Hagaman -69 degrees [facility] QRSD Interval 94 ms [facility] QT Interval 371 ms [facility] QTC Interval 489 ms [facility] T Wave Hag[place] 54 degrees [facility] Atrial fibrillation LAD, consider left anterior fascicular block Electronically Signed On 04-23-2025 17:58:46 EDT by Brandon Galeano MD - 04/23/2025 IMPRESSION: Atrial fibrillation LAD, consider left anterior fascicular block Electronically Signed On 04-23-2025 17:58:46 EDT by Brandon Davidson [facility] PHOSPHORUSon 04-23-2025 Phosphate [Mass/Vol] 1.8 mg/dL Low 2.3-4.7 [facility] Comment on above: Performed By: #### L AB15, [id number], [id number] ####Hose Handler: RIKY PICKARD ([id number])[facility])[address] [place] [address] Progress Noteon 04-23-2025 Progress Note Prompted to assess 4 T score. Low concern for HIT at this time, score of 1. Has not received heparin and was thrombocytopenic on admission. Normal [facility] Progress Note Normal [facility] Progress Note Normal [facility] Progress Note Normal [facility] Vital signsOrdered By: Andreas Davidson on 04-23-2025 Heart rate 88 /min bpm [facility] Work Phone: Vital signson 04-23-2025 Heart rate 104 /min bpm [facility] [id number] 04-22-2025 [id number] Normal [facility] BASIC METABOLIC PANELon Anion gap [Moles/Vol] 11 mmol/L Normal 3-13 [facility] Comment on above: Performed By: #### L AB15 ####Hose Handler: RIKY PICKARD ([id number])[facility] ([facility])[address] [place] [address] Calcium [Mass/Vol] 8.8 mg/dL Normal 8.8-10.0 [facility] Comment on above: Performed By: #### L AB15 ####Hose Handler: RIKY PICKARD ([id number])[facility] ([facility])[address] [place] [address] Chloride [Moles/Vol] 104 mmol/L Normal 98-107 [facility] Comment on above: Performed By: #### L AB15 ####Hose Handler: RIKY PICKARD ([phone])[facility])[address] [place] [address] CO2 [Moles/Vol] 20 mmol/L Low 23-31 [facility] Comment on above: Performed By: #### L AB15 ####Hose Handler: RIKY PICKARD ([id number])[facility])[address] [place] [address] Creatinine [Mass/Vol] 1.02 mg/dL Normal 0.57-1.11 [facility] Comment on above: Performed By: #### L AB15 ####Hose Handler: RIKY PICKARD ([id number])[facility])[address] [place] [address] GLOMERULAR FILTRATION RATE ML/MIN/1.73 SQ M.PREDICTED 54.7 mL/min/1.73m*2 Low >60.0 [facility] Comment on above: Result Comment: Calc ulation based on the Chronic Kidney Disease Epidemiology Collaboration (CKD-EPI) equation refit without adjustment for race Performed By: #### L AB15 ####Hose Handler: RIKY PICKARD ([id number])[facility])[address] [place] [address] Glucose [Mass/Vol] 163 mg/dL High 82-115 [facility] Comment on above: Performed By: #### L AB15 ####Hose Handler: RIKY PICKARD ([id number])[facility])[address] [place] [address] Potassium [Moles/Vol] 4.2 mmol/L Normal 3.5-5.1 [facility] Comment on above: Result Comment: [facility] potassium values may be up to 0.5 mmol/L lower than serum values. Performed By: #### L AB15 ####Hose Handler: RIKY PICKARD ([id number])[facility])[address] [place] [address] [place] Sodium [Moles/Vol] 135 mmol/L Low 136-145 [facility] Comment on above: Performed By: #### L AB15 ####Hose Handler: RIKY PICKARD ([id number])[facility] [place] [address] Urea nitrogen [Mass/Vol] 22 mg/dL Normal 9-23 [facility] Comment on above: Performed By: #### L AB15 ####Hose Handler: RIKY PICKARD ([id number])[facility] [place] [address] Basic metabolic 1998 panelon 04-22-2025 Anion gap [Moles/Vol] 11 mmol/L 3 - 13 mmol/L [facility] Calcium [Mass/Vol] 8.8 mg/dL 8.8 - 10. 0 mg/dL [facility] Chloride [Moles/Vol] 104 mmol/L 98 - 10 7 mmol/L [facility] CO2 [Moles/Vol] 20 mmol/L Low 23 - 31 mmol/L [facility] Creatinine [Mass/Vol] 1.02 mg/dL 0.57 - 1.11 mg/dL [facility] GFR/1.73 sq M.predicted (S/P/Bld) [Vol rate/Area] 54.7 mL/min Low - PINF [facility] Comment on above: Calculation based on the Chronic Kidney Disease Epidemiology Collaboration (CKD-EPI) equation refit without adjustment for race Glucose [Mass/Vol] 163 mg/dL High 82 - 115 mg/dL [facility] Interpretation and review of laboratory results Abnormal [facility] Potassium [Moles/Vol] 4.2 mmol/L 3.5 - 5.1 mmol/L [facility] Comment on above: Plasma potassium dede ues may be up to 0.5 mmol/L lower than serum values. Sodium [Moles/Vol] 135 mmol/L Low 136 - 145 mmol/L [facility] Urea nitrogen [Mass/Vol] 22 mg/dL 9 - 23 mg/dL [facility] CBC (HEMOGRAM)on 04-22-2025 Erythrocyte distribution width (RBC) [Ratio] 14.5 % Normal 11.5-15.0 [facility] Comment on above: Performed By: #### L [id number] ####Hose Handler: RIKY PICKARD ([id number])[facility])[address] [place] [address] Hematocrit (Bld) [Volume fraction] 22.3 % Low 35.0-47.0 [facility] Comment on above: Performed By: #### L [id number] ####Hose Handler: RIKY PICKARD ([id number])[facility])[address] [place] [address] Hemoglobin (Bld) [Mass/Vol] 7.8 g/dL Low 11.7-16.0 [facility] Comment on above: Performed By: #### L [id number] ####Hose Handler: RIKY PICKARD ([phone])[facility])[address] [place] [address] IPF 4 Normal [facility] Comment on above: Performed By: #### L [id number] ####Hose Handler: RIKY PICKARD ([id number])[facility])[address] [place] [address] MCH (RBC) [Entitic mass] 33.2 pg Normal 26.0-34.0 [facility] [facility] Comment on above: Performed By: #### L [id number] ####Hose Handler: RIKY PICKARD ([phone])[facility])[address] [place] [address] MCHC 35.0 % Normal 30.5-36.0 [facility] Comment on above: Performed By: #### L [id number] ####Hose Handler: RIKY PICKARD ([id number])[facility])[address] [place] [address] MCV (RBC) [Entitic vol] 94.9 fL Normal 77.0-99.0 S [facility] Comment on above: Performed By: #### L [id number] ####Hose Handler: RIKY PICKARD ([phone])[facility])[address] [place] [address] Platelet mean volume (Bld) [Entitic vol] 10.9 fL Normal 9.0-12.7 [facility] Comment on above: Performed By: #### L [id number] ####Hose Handler: RIKY PICKARD ([id number])[facility] ([facility])[address] [place] [address] Platelets (Bld) [#/Vol] 101 10*3/uL Low 140-440 [facility] Comment on above: Performed By: #### L [id number] ####Hose Handler: RIKY PICKARD ([phone])[facility] ([facility])[address] [place] [address] RBC (Bld) [#/Vol] 2.35 10*6/uL Low 3.80-5.20 [facility] Comment on above: Performed By: #### L [id number] ####Hose Handler: RIKY PICKARD ([phone])[facility])[address] [place] [address] WBC (Bld) [#/Vol] 8.0 10*3/uL Normal 3.6-10.7 [facility] Comment on above: Performed By: #### L [id number] ####Hose Handler: RIKY PICKARD ([id number])[facility])[address] [place] [address] Erythrocyte distribution width (RBC) [Ratio] 13.3 % Normal 11.5-15.0 [facility] Comment on above: Performed By: #### L [id number] ####Hose Handler: RIKY PICKARD ([phone])[facility])[address] [place] [address] Hematocrit (Bld) [Volume fraction] 19.5 % Low 35.0-47.0 [facility] Comment on above: Performed By: #### L [id number] ####Hose Handler: RIKY PICKARD ([id number])[facility])[address] [place] [address] Hemoglobin (Bld) [Mass/Vol] 7.0 g/dL Low 11.7-16.0 [facility] Comment on above: Performed By: #### L [id number] ####Hose Handler: RIKY PICKARD ([id number])[facility])[address] [place] [address] MCH (RBC) [Entitic mass] 34.7 pg High 26.0-34.0 [facility] Comment on above: Performed By: #### L [id number] ####Hose Handler: RIKY PICKARD ([id number])[facility])[address] [place] [address] MCHC 35.9 % Normal 30.5-36.0 [facility] Comment on above: Performed By: #### L [id number] ####Hose Handler: RIKY PICKARD ([phone])[facility])[address] [place] [address] MCV (RBC) [Entitic vol] 96.5 fL Normal 77.0-99.0 [facility] Comment on above: Performed By: #### L [id number] ####Hose Handler: RIKY PICKARD ([id number])[facility])[address] [place] [address] Platelet mean volume (Bld) [Entitic vol] 11.2 fL Normal 9.0-12.7 [facility] Comment on above: Performed By: #### L [id number] ####Hose Handler: RIKY PICKARD ([id number])[facility])[address] [place] [address] Platelets (Bld) [#/Vol] 96 10*3/uL Low 140-440 [facility] Comment on above: Performed By: #### L [id number] ####Hose Handler: RIKY PICKARD ([id number])[facility])[address] [place] [address] RBC (Bld) [#/Vol] 2.02 10*6/uL Low 3.80-5.20 [facility] Comment on above: Performed By: #### L [id number] ####Hose Handler: RIKY PICKARD ([id number])[facility])[address] [place] [address] WBC (Bld) [#/Vol] 8.0 10*3/uL Normal 3.6-10.7 [facility] Comment on above: Performed By: #### L [id number] ####Hose Handler: RIKY PICKARD ([id number])[facility])[address] [place] [address] Erythrocyte distribution width (RBC) [Ratio] 13.5 % Normal 11.5-15.0 [facility] Comment on above: Performed By: #### L [id number] ####Hose Handler: RIKY PICKARD ([id number])[address] Hematocrit (Bld) [Volume fraction] 22.9 % Low 35.0-47.0 [facility] Comment on above: Performed By: #### L [id number] ####Hose Handler: RIKY PICKARD ([id number])[address] Hemoglobin (Bld) [Mass/Vol] 7.7 g/dL Low 11.7-16.0 [facility] Comment on above: Performed By: #### L [id number] ####Hose Handler: RIKY PICKARD ([id number])[facility])[address] [place] [address] IPF 5 Normal [facility] Comment on above: Performed By: #### L [id number] ####Hose Handler: RIKY PICKARD ([id number])[facility])[address] [place] [address] MCH (RBC) [Entitic mass] 33.5 pg Normal 26.0-34.0 [facility] Comment on above: Performed By: #### L [id number] ####Hose Handler: RIKY PICKARD ([id number])[address] MCHC 33.6 % Normal 30.5-36.0 [facility] Comment on above: Performed By: #### L [id number] ####Hose Handler: RIKY PICKARD ([id number])[facility] ([facility])[address] [place] [address] MCV (RBC) [Entitic vol] 99.6 fL High 77.0-99.0 S [facility] Comment on above: Performed By: #### L [id number] ####Hose Handler: RIKY PICKARD ([id number])[facility] ([facility])[address] [place] [address] Platelet mean volume (Bld) [Entitic vol] 10.6 fL Normal 9.0-12.7 [facility] Comment on above: Performed By: #### L [id number] ####Hose Handler: RIKY PICKARD ([id number])[facility] ([facility])[address] [place] [address] Platelets (Bld) [#/Vol] 108 10*3/uL Low 140-440 [facility] Comment on above: Performed By: #### L [id number] ####Hose Handler: RIKY PICKARD ([id number])[facility] ([facility])[address] [place] [address] RBC (Bld) [#/Vol] 2.30 10*6/uL Low 3.80-5.20 [facility] Comment on above: Performed By: #### L [id number] ####Hose Handler: RIKY PICKARD ([id number])[facility] ([facility])[address] [place] [address] WBC (Bld) [#/Vol] 8.6 10*3/uL Normal 3.6-10.7 [facility] Comment on above: Performed By: #### L [id number] ####Hose Handler: RIKY PICKARD ([id number])[facility] ([facility])[address] [place] [address] Erythrocyte distribution width (RBC) [Ratio] 13.2 % Normal 11.5-15.0 [facility] Comment on above: Performed By: #### L [id number] ####Hose Handler: RIKY PICKARD ([id number])[address] Hematocrit (Bld) [Volume fraction] 27.7 % Low 35.0-47.0 [facility] Comment on above: Performed By: #### L [id number] ####Hose Handler: RIKY PICKARD ([id number])[facility])[address] [place] [address] Hemoglobin (Bld) [Mass/Vol] 9.2 g/dL Low 11.7-16.0 [facility] Comment on above: Performed By: #### L [id number] ####Hose Handler: RIKY PICKARD ([id number])[address] MCH (RBC) [Entitic mass] 33.1 pg Normal 26.0-34.0 [facility] Comment on above: Performed By: #### L [id number] ####Hose Handler: RIKY PICKARD ([id number])[facility])[address] [place] [address] MCHC 33.2 % Normal 30.5-36.0 [facility] Comment on above: Performed By: #### L [id number] ####Hose Handler: RIKY PICKARD ([id number])[facility])[address] [place] [address] MCV (RBC) [Entitic vol] 99.6 fL High 77.0-99.0 S [facility] Comment on above: Performed By: #### L [id number] ####Hose Handler: RIKY PICKARD ([id number])[facility])[address] [place] [address] Platelet mean volume (Bld) [Entitic vol] 10.4 fL Normal 9.0-12.7 [facility] Comment on above: Performed By: #### L [id number] ####Hose Handler: RIKY PICKARD ([id number])[facility] ([facility])[address] [place] [address] Platelets (Bld) [#/Vol] 166 10*3/uL Normal 140-440 [facility] Comment on above: Performed By: #### L [id number] ####Hose Handler: RIKY PICKARD ([id number])[facility] ([facility])[address] [place] [address] RBC (Bld) [#/Vol] 2.78 10*6/uL Low 3.80-5.20 [facility] Comment on above: Performed By: #### L [id number] ####Hose Handler: RKIY PICKARD ([phone])[facility])[address] [place] [address] WBC (Bld) [#/Vol] 15.3 10*3/uL High 3.6-10.7 [facility] Comment on above: Performed By: #### L [id number] ####Hose Handler: RIKY PICKARD ([id number])[facility] ([facility])[address] [place] [address] CBC panel Auto (Bld)on 04-22 Erythrocyte distribution width (RBC) [Ratio] 14.5 % 11.5 - 15.0 % [facility] Hematocrit (Bld) [Volume fraction] 22.3 % Low 35.0 - 47.0 % [facility] Hemoglobin (Bld) [Mass/Vol] 7.8 g/dL Low 11.7 - 16.0 g/dL [facility] Interpretation and review of laboratory results Abnormal [facility] IPF 4 [facility] MCH (RBC) [Entitic mass] 33.2 pg 26.0 - 34.0 pg [facility] MCHC (RBC) [Mass/Vol] 35 % 30.5 - 36.0 % [facility] MCV (RBC) [Entitic vol] 94.9 fL 77.0 - 99.0 fL [facility] Platelet mean volume (Bld) [Entitic vol] 10.9 fL 9.0 - 12.7 fL [facility] Platelets (Bld) [#/Vol] 101 10*3/uL Low 140 - 440 10*3/uL [facility] RBC (Bld) [#/Vol] 2.35 10*6/uL Low 3.80 - 5.2 0 10*6/uL [facility] WBC (Bld) [#/Vol] 8 10*3/uL 3.6 - 10.7 10*3/uL [facility] Erythrocyte distribution width (RBC) [Ratio] 13.2 % 11.5 - 15.0 % [facility] Hematocrit (Bld) [Volume fraction] 27.7 % Low 35.0 - 47.0 % [facility] Hemoglobin (Bld) [Mass/Vol] 9.2 g/dL Low 11.7 - 16.0 g/dL [facility] Interpretation and review of laboratory results Abnormal [facility] MCH (RBC) [Entitic mass] 33.1 pg 26.0 - 34.0 pg [facility] MCHC (RBC) [Mass/Vol] 33.2 % 30.5 - 36.0 % [facility] MCV (RBC) [Entitic vol] 99.6 fL High 77.0 - 99.0 fL [facility] Platelet mean volume (Bld) [Entitic vol] 10.4 fL 9.0 - 12.7 fL [facility] Platelets (Bld) [#/Vol] 166 10*3/uL 140 - 440 10*3/uL [facility] RBC (Bld) [#/Vol] 2.78 10*6/uL Low 3.80 - 5.2 0 10*6/uL [facility] WBC (Bld) [#/Vol] 15.3 10*3/uL High 3.6 - 10.7 10*3/uL [facility] CBC panel Auto (Bld)Ordered By: Erick Garces on 04-22-2025 Erythrocyte distribution width (RBC) [Ratio] 13.3 % 11.5 - 15.0 % [facility] Hematocrit (Bld) [Volume fraction] 19.5 % Low 35.0 - 47.0 % [facility] Hemoglobin (Bld) [Mass/Vol] 7 g/dL Low 11.7 - 16.0 g/dL [facility] Interpretation and review of laboratory results Abnormal [facility] MCH (RBC) [Entitic mass] 34.7 pg High 26.0 - 34.0 pg [facility] MCHC (RBC) [Mass/Vol] 35.9 % 30.5 - 36.0 % [facility] MCV (RBC) [Entitic vol] 96.5 fL 77.0 - 99.0 fL [facility] Platelet mean volume (Bld) [Entitic vol] 11.2 fL 9.0 - 12.7 fL [facility] Platelets (Bld) [#/Vol] 96 10*3/uL Low 140 - 440 10*3/uL [facility] RBC (Bld) [#/Vol] 2.02 10*6/uL Low 3.80 - 5.2 0 10*6/uL [facility] WBC (Bld) [#/Vol] 8 10*3/uL 3.6 - 10.7 10*3/uL [facility] CBC panel Auto (Bld)Ordered By: Harlan Tobar on 04-22-2025 Erythrocyte distribution width (RBC) [Ratio] 13.5 % 11.5 - 15.0 % [facility] Hematocrit (Bld) [Volume fraction] 22.9 % Low 35.0 - 47.0 % [facility] Hemoglobin (Bld) [Mass/Vol] 7.7 g/dL Low 11.7 - 16.0 g/dL [facility] Interpretation and review of laboratory results Abnormal [facility] IPF 5 [facility] MCH (RBC) [Entitic mass] 33.5 pg 26.0 - 34.0 pg [facility] MCHC (RBC) [Mass/Vol] 33.6 % 30.5 - 36.0 % [facility] MCV (RBC) [Entitic vol] 99.6 fL High 77.0 - 99.0 fL [facility] Platelet mean volume (Bld) [Entitic vol] 10.6 fL 9.0 - 12.7 fL [facility] Platelets (Bld) [#/Vol] 108 10*3/uL Low 140 - 440 10*3/uL [facility] RBC (Bld) [#/Vol] 2.3 10*6/uL Low 3.80 - 5.2 0 10*6/uL [facility] WBC (Bld) [#/Vol] 8.6 10*3/uL 3.6 - 10.7 10*3/uL [facility] HEMOGLOBIN AND HEMATOCRIT, B LOODon 04-22-2025 Hematocrit (Bld) [Volume fraction] 22.8 % Low 35.0-47.0 [facility] Comment on above: Order Comment: Recom mend 1 hour post transfusion Performed By: #### L [id number] ####Hose Handler: RIKY PICKARD ([id number])[facility] [place] [address] Hemoglobin (Bld) [Mass/Vol] 7.9 g/dL Low 11.7-16.0 [facility] Comment on above: Order Comment: Recom mend 1 hour post transfusion Performed By: #### L [id number] ####Hose Handler: RIKY PICKARD ([id number])[facility] [place] [address] HIGH SENSITIVITY TROPONIN, S ERIAL BASELINEon 04-22-2025 TROPONIN HS SERIAL BASELINE 90 ng/L High <=14 [facility] Comment on above: Result Comment: In i ndividuals presenting with symptoms > 2h, a baseline troponin <= 5 ng/L suggests acutecardiac injury is unlikely and further serial testing is generally not indicated. Performed By: #### L [id number] ####Hose Handler: RIKY PICKARD ([id number])[facility] [place] [address] HIGH SENSITIVITY TROPONIN, S ERIAL, SECOND TESTon 04-22-2025 2H TROPONIN HS (SERIAL 2ND TROPONIN) 76 ng/L High <=14 [facility] Comment on above: Result Comment: Risi ng or falling troponin delta between 2 ??? 15 ng/L as compared to baseline value requires a 3rd serial troponin Performed By: #### L [id number] ####Hose Handler: RIKY PICKARD ([id number])[facility] [place] [address] HIGH SENSITIVITY TROPONIN, S ERIAL, THIRD TESTon 04-22-2025 4H TROPONIN HS (SERIAL 3RD TROPONIN) 66 ng/L High <=14 [facility] Comment on above: Result Comment: Risi ng or falling troponin delta between 2 ??? 15 ng/L as compared to 2h troponin valuerequires further evaluation. Performed By: #### L [id number] ####Hose Handler: RIKY PICKARD ([id number])[facility])[address] [place] [address] Hemoglobin (Bld) [Mass/Vol]O rdered By: Keya Fung on 04-22-2025 Hematocrit (Bld) [Volume fraction] 22.8 % Low 35.0 - 47.0 % [facility] Interpretation and review of laboratory results Abnormal [facility] LACTIC ACID WITH REFLEXon Lactate [Moles/Vol] 1.5 mmol/L Normal 0.5-2.2 [facility] Comment on above: Performed By: #### L [id number] ####Hose Handler: RIKY PICKARD ([id number])[facility])[address] [place] [address] Lactate [Moles/Vol] 2.7 mmol/L High 0.5-2.2 [facility] Comment on above: Performed By: #### L [id number] ####Hose Handler: RIKY PICKARD ([id number])[facility])[address] [place] [address] Lactate [Moles/Vol] 3.8 mmol/L High 0.5-2.2 [facility] Comment on above: Result Comment: TCPo tential interference from hemolysis Performed By: #### L [id number] ####Hose Handler: RIKY PICKARD ([id number])[facility])[address] [place] [address] Laboratory - Chemistry and C hemistry - challengeon 04-22-2025 Lactate [Moles/Vol] 1.5 mmol/L 0.5 - 2. 2 mmol/L [facility] Lactate [Moles/Vol] 2.7 mmol/L High 0.5 - 2. 2 mmol/L [facility] Lactate [Moles/Vol] 3.8 mmol/L High 0.5 - 2. 2 mmol/L [facility] Comment on above: TC Potential interference from hemolysis Laboratory - Hematology and Cell countsOrdered By: Keya Fung on 04-22-2025 Hemoglobin (Bld) [Mass/Vol] 7.9 g/dL Low 11.7 - 16.0 g/dL [facility] No Panel Informationon 04-22 Blood Expiration Date [id number] S [facility] Blood Expiration Date [id number] S [facility] Crossmatch interpretation COMP [facility] 5100 [facility] PRODUCT CODE [id number] [facility] Unit ABO O [facility] Unit Number [id number] [facility] [id number] [facility] RH Positive [facility] Unit Volume 300 mL [facility] Interpretation and review of laboratory results Normal [facility] 4h Troponin HS (Serial 3rd Troponin) 66 ng/L High NINF - 14 ng/L [facility] Comment on above: Rising or falling tr oponin delta between 2 15 ng/L as compared to 2h troponin value requires further evaluation. Interpretation and review of laboratory results Abnormal [facility] Interpretation and review of laboratory results Abnormal [facility] 2h Troponin HS (Serial 2nd Troponin) 76 ng/L High NINF - 14 ng/L [facility] Comment on above: Rising or falling tr oponin delta between 2 15 ng/L as compared to baseline value requires a 3rd serial troponin Interpretation and review of laboratory results Abnormal [facility] Interpretation and review of laboratory results Abnormal [facility] Troponin HS Serial Baseline 90 ng/L High NINF - 14 ng/L [facility] Comment on above: In individuals prese nting with symptoms > 2h, a baseline troponin <= 5 ng/L suggests acute cardiac injury is unlikely and further serial testing is generally not indicated. [facility] Interpretation and review of laboratory results Abnormal [facility] Progress Noteon 04-22-2025 Progress Note Normal [facility] Progress Note Normal [facility] Progress Note Normal [facility] Progress Note Normal [facility] Progress Note Normal [facility] US Heart TransthoracicOrdere d By: Odalys Lennon on 04-22-2025 Ao Root Index 2 cm/m2 [facility] Work Phone: Aortic Arch 3.6 cm [facility] Work Phone: Aortic Root 3.4 cm [facility] Work Phone: Aortic Sinus Valsalva 2.8 cm [facility] Work Phone: Aortic Sinus Valsalva Index 1.65 cm/m2 [facility] Work Phone: Aortic valve Orifice area by US 3.1 cm2 [facility] Work Phone: Ascending Aorta 3.9 cm [facility] Work Phone: Ascending Aorta Index 2.29 cm/m2 [facility] Work Phone: E/E' Lateral 10.38 [facility] Work Phone: E/E' Ratio (Averaged) 11.12 [facility] Work Phone: E/E' Septal 11.86 [facility] Work Phone: Est. RA Pressure 3 mmHg [facility] Work Phone: Interpretation and review of laboratory results Abnormal [facility] Work Phone: IVC Diameter 1.9 cm [facility] Work Phone: LA Diameter 2.7 cm [facility] [employer] Work Phone: LA Size Index 1.59 cm/m2 [facility] Work Phone: LA Volume 2C 39 mL 22 - 52 mL [facility] Work Phone: LA Volume 4C 40 mL 22 - 52 mL [facility] Work Phone: LA Volume A/L 45 mL [facility] Work Phone: LA Volume BP 40 mL 22 - 52 mL [facility] [employer] Work Phone: LA Volume Index 2C 23 mL/m2 16 - 34 mL/m2 [facility] [employer] Work Phone: LA Volume Index 4C 24 mL/m2 16 - 34 mL/m2 [facility] Work Phone: LA Volume Index A/L 26 mL/m2 16 - 34 mL/m2 [facility] Work Phone: LA Volume Index BP 24 ml/m2 16 - 34 ml/m2 [facility] Work Phone: LA/AO Root Ratio 0.79 [facility] Work Phone: Left ventricular Ejection fraction by US.2D+Calculated by biplane method of disks 87 % 55 - 100 % [facility] Work Phone: LV E' Lateral Velocity 8 cm/s [facility] Work Phone: LV E' Septal Velocity 7 cm/s [facility] Work Phone: LV EDV A2C 70 mL [facility] Work Phone: LV EDV A4C 55 mL [facility] Work Phone: LV EDV BP 64 mL 56 - 104 mL [facility] Work Phone: LV EDV Index A2C 41 mL/m2 [facility] Work Phone: LV EDV Index A4C 32 mL/m2 [facility] Work Phone: LV EDV Index BP 38 mL/m2 [facility] Work Phone: LV Ejection Fraction A2C 85 % [facility] Work Phone: LV Ejection Fraction A4C 88 % [facility] Work Phone: LV ESV A2C 11 mL [facility] Work Phone: LV ESV A4C 6 mL [facility] Work Phone: LV ESV BP 8 mL Abnormal 19 - 49 mL [facility] Work Phone: LV ESV Index A2C 6 mL/m2 [facility] Work Phone: LV ESV Index A4C 4 mL/m2 [facility] Work Phone: LV ESV Index BP 5 mL/m2 [facility] Work Phone: LVOT Cardiac Output 6.7 liter/minute [facility] Work Phone: LVOT Diameter 2 cm [facility] Work Phone: LVOT Mean Gradient 4 mmHg [facility] [employer] Work Phone: LVOT Peak Gradient 6 mmHg [facility] Work Phone: LVOT Peak Velocity 1.3 m/s [facility] [employer] Work Phone: LVOT Stroke Volume Index 52.5 mL/m2 [facility] [employer] Work Phone: LVOT SV 89.2 ml [facility] [employer] Work Phone: LVOT VTI 28.4 cm [facility] [employer] Work Phone: MV A Velocity 0.81 m/s [facility] Work Phone: MV E Velocity 0.83 m/s [facility] Work Phone: MV E Wave Deceleration Time 209.2 ms [facility] [employer] Work Phone: MV E/A 1.02 [facility] [employer] Work Phone: RA Area 4C 37.6 mL [facility] [employer] Work Phone: RA Area 4C 37.4 mL [facility] [employer] Work Phone: RV Basal Dimension 4.1 cm [facility] [employer] Work Phone: RV Free Wall Peak S' 12 cm/s [facility] [employer] Work Phone: RV Longitudinal Dimension 6.8 cm [facility] Work Phone: RV Mid Dimension 2.8 cm [facility] Work Phone: RVSP 36 mmHg [facility] [employer] Work Phone: TAPSE 2.1 cm 1.7 cm [facility] [employer] Work Phone: TR Max Velocity 2.87 m/s [facility] Work Phone: TR Peak Gradient 33 mmHg [facility] Work Phone: [facility] Work Phone: US Heart Transthoracicon Left [...] C Student with direct supervision by this academic affairs dean. Echo Additional Conclusions No significant valvular abnormalities. CV CPACS [id number] 04-21-2025 [id number] Normal [facility] ABO and Rh group Confirm Nom (Bld)on 04-21-2025 ABO group Nom (Bld) O [facility] D Ag Ql (RBC) Positive [facility] Anesthesia Noteon 04-21-2025 Anesthesia Note Normal [facility] Anesthesia Note Normal [facility] BASIC METABOLIC PANELon Anion gap [Moles/Vol] 11 mmol/L Normal 3-13 [facility] Comment on above: Performed By: #### L [id number], [id number] ####Hose Handler: RIKY PICKARD ([id number])[facility] [place] [address] Calcium [Mass/Vol] 8.8 mg/dL Normal 8.8-10.0 [facility] Comment on above: Performed By: #### L [id number], [id number] ####Hose Handler: RIKY PICKARD ([phone])[facility] [place] [address] Chloride [Moles/Vol] 105 mmol/L Normal 98-107 [facility] Comment on above: Performed By: #### L [id number], [id number] ####Hose Handler: RIKY PICKARD ([id number])[facility] [place] [address] CO2 [Moles/Vol] 19 mmol/L Low 23-31 [facility] Comment on above: Performed By: #### L [id number], LAB15 ####Hose Handler: RIKY PICKARD ([id number])[facility] [place] [address] Creatinine [Mass/Vol] 0.79 mg/dL Normal 0.57-1.11 [facility] Comment on above: Performed By: #### L [id number], [id number] ####Hose Handler: RIKY PICKARD ([id number])[facility] [place] [address] [place] GLOMERULAR FILTRATION RATE ML/MIN/1.73 SQ M.PREDICTED 74.3 mL/min/1.73m*2 Normal >60.0 [facility] Comment on above: Result Comment: Calc ulation based on the Chronic Kidney Disease Epidemiology Collaboration (CKD-EPI) equation refit without adjustment for race Performed By: #### L [id number], [id number] ####Hose Handler: RIYK PICKARD ([phone])[facility] [place] [address] [place] Glucose [Mass/Vol] 204 mg/dL High 82-115 [facility] Comment on above: Performed By: #### L [id number], LAB15 ####Hose Handler: RIKY PICKARD ([phone])[facility])[address] [place] [address] Potassium [Moles/Vol] 4.2 mmol/L Normal 3.5-5.1 [facility] Comment on above: Result Comment: [facility] potassium values may be up to 0.5 mmol/L lower than serum values. Performed By: #### L [id number], LAB15 ####Hose Handler: RIKY PICKARD ([id number])[facility])[address] [place] [address] Sodium [Moles/Vol] 135 mmol/L Low 136-145 [facility] Comment on above: Performed By: #### L [id number], [id number] ####Hose Handler: RIKY PICKARD ([id number])[facility])[address] [place] [address] Urea nitrogen [Mass/Vol] 19 mg/dL Normal 9-23 [facility] Comment on above: Performed By: #### L [id number], LAB15 ####Hose Handler: RIKY PICKARD ([id number])[facility])[address] [place] [address] BLOOD TYPE AND SCREEN GELon 04-21-2025 ABO GROUPING O Normal [facility] Comment on above: Performed By: #### L [id number] ####Hose Handler: RIKY PICKARD ([id number])[facility] BLOOD [facility] ([facility])[address] [place] [address] RH TYPE IN BLOOD Positive Normal [facility] Comment on above: Performed By: #### L [id number] ####Hose Handler: RIKY PICKARD ([phone])[facility] ([facility])[address] [place] [address] Basic metabolic 1998 panelon 04-21-2025 Anion gap [Moles/Vol] 11 mmol/L 3 - 13 mmol/L [facility] Calcium [Mass/Vol] 8.8 mg/dL 8.8 - 10. 0 mg/dL [facility] Chloride [Moles/Vol] 105 mmol/L 98 - 10 7 mmol/L [facility] CO2 [Moles/Vol] 19 mmol/L Low 23 - 31 mmol/L [facility] Creatinine [Mass/Vol] 0.79 mg/dL 0.57 - 1.11 mg/dL [facility] GFR/1.73 sq M.predicted (S/P/Bld) [Vol rate/Area] 74.3 mL/min - PINF [facility] Comment on above: Calculation based on the Chronic Kidney Disease Epidemiology Collaboration (CKD-EPI) equation refit without adjustment for race Glucose [Mass/Vol] 204 mg/dL High 82 - 115 mg/dL [facility] Interpretation and review of laboratory results Abnormal [facility] Potassium [Moles/Vol] 4.2 mmol/L 3.5 - 5.1 mmol/L [facility] Comment on above: Plasma potassium dede ues may be up to 0.5 mmol/L lower than serum values. Sodium [Moles/Vol] 135 mmol/L Low 136 - 145 mmol/L [facility] Urea nitrogen [Mass/Vol] 19 mg/dL 9 - 23 mg/dL [facility] Blood type and Crossmatch pa berta (Bld)on 04-21-2025 ABO group Nom (Bld) O [facility] Blood group antibody screen GEL Ql Negative [facility] D Ag Ql (RBC) Positive [facility] h [facility] CBC (HEMOGRAM)on 04-21-2025 Erythrocyte distribution width (RBC) [Ratio] 13.2 % Normal 11.5-15.0 [facility] Comment on above: Performed By: #### L [id number] ####Hose Handler: RIKY PICKARD ([id number])[address] Hematocrit (Bld) [Volume fraction] 45.0 % Normal 35.0-47.0 [facility] Comment on above: Performed By: #### L [id number] ####Hose Handler: RIKY PICKARD ([id number])[facility] ([facility])[address] [place] [address] [place] Hemoglobin (Bld) [Mass/Vol] 14.8 g/dL Normal 11.7-16.0 [facility] Comment on above: Performed By: #### L [id number] ####Hose Handler: RIKY PICKARD ([id number])[facility])[address] [place] [address] MCH (RBC) [Entitic mass] 33.1 pg Normal 26.0-34.0 [facility] Comment on above: Performed By: #### L [id number] ####Hose Handler: RIKY PICKARD ([id number])[facility] ([facility])[address] [place] [address] MCHC 32.9 % Normal 30.5-36.0 [facility] Comment on above: Performed By: #### L [id number] ####Hose Handler: RIKY PICKARD ([id number])[facility] ([facility])[address] [place] [address] MCV (RBC) [Entitic vol] 100.7 fL High 77.0-99.0 [facility] Comment on above: Performed By: #### L [id number] ####Hose Handler: RIKY PICKARD ([phone])[facility] ([facility])[address] [place] [address] Platelet mean volume (Bld) [Entitic vol] 10.6 fL Normal 9.0-12.7 [facility] Comment on above: Performed By: #### L [id number] ####Hose Handler: RIKY PICKARD ([id number])[facility])[address] [place] [address] Platelets (Bld) [#/Vol] 150 10*3/uL Normal 140-440 [facility] Comment on above: Performed By: #### L [id number] ####Hose Handler: RIKY PICKARD ([phone])[facility])[address] [place] [address] RBC (Bld) [#/Vol] 4.47 10*6/uL Normal 3.80-5.20 [facility] Comment on above: Performed By: #### L [id number] ####Hose Handler: RIKY PICKARD ([id number])[facility] ([facility])[address] [place] [address] WBC (Bld) [#/Vol] 14.1 10*3/uL High 3.6-10.7 [facility] Comment on above: Performed By: #### L [id number] ####Hose Handler: RIKY PICKARD ([id number])[facility] ([facility])[address] [place] [address] CBC panel Auto (Bld)on 04-21 Erythrocyte distribution width (RBC) [Ratio] 13.2 % 11.5 - 15.0 % [facility] Hematocrit (Bld) [Volume fraction] 45 % 35.0 - 47.0 % [facility] Hemoglobin (Bld) [Mass/Vol] 14.8 g/dL 11.7 - 16.0 g/dL [facility] Interpretation and review of laboratory results Abnormal [facility] MCH (RBC) [Entitic mass] 33.1 pg 26.0 - 34.0 pg [facility] MCHC (RBC) [Mass/Vol] 32.9 % 30.5 - 36.0 % [facility] MCV (RBC) [Entitic vol] 100.7 fL High 77.0 - 99.0 fL [facility] Platelet mean volume (Bld) [Entitic vol] 10.6 fL 9.0 - 12.7 fL [facility] Platelets (Bld) [#/Vol] 150 10*3/uL 140 - 440 10*3/uL [facility] RBC (Bld) [#/Vol] 4.47 10*6/uL 3.80 - 5.2 0 10*6/uL [facility] WBC (Bld) [#/Vol] 14.1 10*3/uL High 3.6 - 10.7 10*3/uL [facility] CKon 04-21-2025 CK [Catalytic activity/Vol] 112 U/L Normal 30-185 [facility] Comment on above: Performed By: #### L AB17, LAB62 ####Hose Handler: RIKY PICKARD ([phone])[facility] ([facility])[address] [place] [address] CK [Catalytic activity/Vol]o n 04-21-2025 Interpretation and review of laboratory results Normal [facility] COMPREHENSIVE METABOLIC PANE Jay 04-21-2025 Albumin [Mass/Vol] 4.1 g/dL Normal 3.4-4.8 [facility] Comment on above: Performed By: #### L AB17, LAB62 ####Hose Handler: RIKY PICKARD ([id number])[facility] ([facility])[address] [place] [address] ALP [Catalytic activity/Vol] 212 U/L High 40-150 [facility] Comment on above: Performed By: #### L AB17, LAB62 ####Hose Handler: RIKY PICKARD ([phone])[facility])[address] [place] [address] ALT [Catalytic activity/Vol] 17 U/L Normal <30 [facility] Comment on above: Performed By: #### L AB17, LAB62 ####Hose Handler: RIKY PICKARD ([id number])[facility] ([facility])[address] [place] [address] Anion gap [Moles/Vol] 12 mmol/L Normal 3-13 [facility] Comment on above: Performed By: #### L AB17, LAB62 ####Hose Handler: RIKY PICKARD ([id number])[facility] ([facility])[address] [place] [address] AST [Catalytic activity/Vol] 24 U/L Normal <34 [facility] Comment on above: Performed By: #### L AB17, LAB62 ####Hose Handler: RIKY PICKARD ([phone])[facility] ([facility])[address] [place] [address] Bilirubin [Mass/Vol] 0.8 mg/dL Normal <1.2 [facility] Comment on above: Performed By: #### L AB17, LAB62 ####Hose Handler: RIKY [id number])[facility])[address] [place] [address] Calcium [Mass/Vol] 9.6 mg/dL Normal 8.8-10.0 [facility] Comment on above: Performed By: #### L AB17, LAB62 ####Hose Handler: RIKY PICKARD ([id number])[facility] [place] [address] Chloride [Moles/Vol] 101 mmol/L Normal 98-107 [facility] Comment on above: Performed By: #### L AB17, LAB62 ####Hose Handler: RIKY PICKARD ([phone])[facility] ([facility])[address] [place] [address] CO2 [Moles/Vol] 22 mmol/L Low 23-31 [facility] Comment on above: Performed By: #### L AB17, LAB62 ####Hose Handler: RIKY PICKARD ([id number])[facility] ([facility])[address] [place] [address] Creatinine [Mass/Vol] 0.66 mg/dL Normal 0.57-1.11 [facility] Comment on above: Performed By: #### L AB17, LAB62 ####Hose Handler: RIKY PICKARD ([phone])[facility])[address] [place] [address] GLOMERULAR FILTRATION RATE ML/MIN/1.73 SQ M.PREDICTED 87.2 mL/min/1.73m*2 Normal >60.0 [facility] Comment on above: Result Comment: Calc ulation based on the Chronic Kidney Disease Epidemiology Collaboration (CKD-EPI) equation refit without adjustment for race Performed By: #### L AB17, LAB62 ####Hose Handler: RIKY PICKARD ([phone])[facility] ([facility])[address] [place] [address] [place] Glucose [Mass/Vol] 146 mg/dL High 82-115 [facility] Comment on above: Performed By: #### L AB17, LAB62 ####Hose Handler: RIKY [id number])[facility])[address] [place] [address] Potassium [Moles/Vol] 3.6 mmol/L Normal 3.5-5.1 [facility] Comment on above: Result Comment: [facility] potassium values may be up to 0.5 mmol/L lower than serum values. Performed By: #### L AB17, LAB62 ####Hose Handler: RIKY PICKARD ([phone])[facility])[address] [place] [address] Protein [Mass/Vol] 7.5 g/dL Normal 6.4-8.3 [facility] Comment on above: Performed By: #### L AB17, LAB62 ####Hose Handler: RIKY PICKARD ([id number])[facility])[address] [place] [address] Sodium [Moles/Vol] 135 mmol/L Low 136-145 [facility] Comment on above: Performed By: #### L AB17, LAB62 ####Hose Handler: RIKY PICKARD ([phone])[facility])[address] [place] [address] Urea nitrogen [Mass/Vol] 15 mg/dL Normal 9-23 [facility] Comment on above: Performed By: #### L AB17, LAB62 ####Hose Handler: RIKY PICKARD ([phone])[address] Comprehensive metabolic 1998 panelon 04-21-2025 Albumin [Mass/Vol] 4.1 g/dL 3.4 - 4.8 g/dL [facility] ALP [Catalytic activity/Vol] 212 U/L High 40 - 150 U/L [facility] ALT [Catalytic activity/Vol] 17 U/L NINF - 30 U/L [facility] Anion gap [Moles/Vol] 12 mmol/L 3 - 13 mmol/L [facility] AST [Catalytic activity/Vol] 24 U/L NINF - 34 U/L [facility] Bilirubin [Mass/Vol] 0.8 mg/dL NINF - 1.2 mg/dL [facility] Calcium [Mass/Vol] 9.6 mg/dL 8.8 - 10. 0 mg/dL [facility] Chloride [Moles/Vol] 101 mmol/L 98 - 10 7 mmol/L [facility] CO2 [Moles/Vol] 22 mmol/L Low 23 - 31 mmol/L [facility] Creatinine [Mass/Vol] 0.66 mg/dL 0.57 - 1.11 mg/dL [facility] GFR/1.73 sq M.predicted (S/P/Bld) [Vol rate/Area] 87.2 mL/min - PINF [facility] Comment on above: Calculation based on the Chronic Kidney Disease Epidemiology Collaboration (CKD-EPI) equation refit without adjustment for race Glucose [Mass/Vol] 146 mg/dL High 82 - 115 mg/dL [facility] Interpretation and review of laboratory results Abnormal [facility] Potassium [Moles/Vol] 3.6 mmol/L 3.5 - 5.1 mmol/L [facility] Comment on above: Plasma potassium dede ues may be up to 0.5 mmol/L lower than serum values. Protein [Mass/Vol] 7.5 g/dL 6.4 - 8.3 g/dL [facility] Sodium [Moles/Vol] 135 mmol/L Low 136 - 145 mmol/L [facility] Urea nitrogen [Mass/Vol] 15 mg/dL 9 - 23 mg/dL [facility] Consulton 04-21-2025 Consult Normal [facility] Consult Normal [facility] ECG 12-LEADon 04-21-2025 ECG 12-LEAD IMPRESSION: Sinus rhythm LAD, consider left anterior fascicular block Nonspecific T abnrm, anterolateral leads No change compared to previous ekg Electronically Signed On 04-21-2025 12:28:43 EDT by Elliott Navarro ED Nursing Noteon 04-21-2025 ED Nursing Note Normal [facility] ED Nursing Note Report given to Idris FUENTES ED Nursing Note Pt covered in urine wet and cold upon arrival to ed. Pt given the option to salvage clothing but stated to just cut it off to reduce pain . Pt dry cleaned placed in hospital robe and had no needs at this time . Normal [facility] ED Provider Noteon ED Provider Note Normal [facility] HEMOGLOBIN AND HEMATOCRIT, B LOODon 04-21-2025 Hematocrit (Bld) [Volume fraction] 30.8 % Low 35.0-47.0 [facility] Comment on above: Performed By: #### L [id number] ####Hose Handler: RIKY PICKARD ([phone])[facility])[address] [place] [address] Hemoglobin (Bld) [Mass/Vol] 10.4 g/dL Low 11.7-16.0 [facility] Comment on above: Performed By: #### L [id number] ####Hose Handler: RIKY PICKARD ([id number])[facility])[address] [place] [address] Hematocrit (Bld) [Volume fraction] 31.5 % Low 35.0-47.0 [facility] Comment on above: Performed By: #### L [id number] ####Hose Handler: RIKY PICKARD ([id number])[facility])[address] [place] [address] Hemoglobin (Bld) [Mass/Vol] 10.4 g/dL Low 11.7-16.0 [facility] Comment on above: Performed By: #### L [id number] ####Hose Handler: RIKY PICKARD ([id number])[facility])[address] [place] [address] HIGH SENSITIVITY TROPONIN, S ERIAL BASELINEon 04-21-2025 TROPONIN HS SERIAL BASELINE 68 ng/L High <=14 [facility] Comment on above: Result Comment: In i ndividuals presenting with symptoms > 2h, a baseline troponin <= 5 ng/L suggests acutecardiac injury is unlikely and further serial testing is generally not indicated. Performed By: #### L [id number], LAB15 ####Hose Handler: RIKY PICKARD ([phone])[facility])[address] [place] [address] HIGH SENSITIVITY TROPONIN, S ERIAL, SECOND TESTon 04-21-2025 2H TROPONIN HS (SERIAL 2ND TROPONIN) 82 ng/L High <=14 [facility] Comment on above: Result Comment: Risi ng or falling troponin delta between 2 ??? 15 ng/L as compared to baseline value requires a 3rd serial troponin Performed By: #### L [id number] ####Hose Handler: RIKY PICKARD ([id number])[facility] ([facility])[address] [place] [address] HIGH SENSITIVITY TROPONIN, S ERIAL, THIRD TESTon 04-21-2025 4H TROPONIN HS (SERIAL 3RD TROPONIN) 101 ng/L High <=14 [facility] Comment on above: Result Comment: Risi ng or falling troponin delta greater than 15 ng/L as compared to 2h troponin value issignificant for acute cardiac injury. Performed By: #### L [id number] ####Hose Handler: RIKY PICKARD ([id number])[facility] ([facility])[address] [place] [address] Hemoglobin (Bld) [Mass/Vol]o n 04-21-2025 Hematocrit (Bld) [Volume fraction] 30.8 % Low 35.0 - 47.0 % [facility] Interpretation and review of laboratory results Abnormal [facility] Hemoglobin (Bld) [Mass/Vol]O rdered By: Nancy Aaron on 04-21-2025 Hematocrit (Bld) [Volume fraction] 31.5 % Low 35.0 - 47.0 % [facility] Interpretation and review of laboratory results Abnormal [facility] LACTIC ACID WITH REFLEXon Lactate [Moles/Vol] 6.4 mmol/L Critically high 0.5-2.2 [facility] Comment on above: Performed By: #### L [id number] ####Hose Handler: RIKY PICKARD ([id number])[facility] ([facility])[address] [place] [address] Lactate [Moles/Vol] 4.3 mmol/L Critically high 0.5-2.2 [facility] Comment on above: Performed By: #### L [id number] ####Hose Handler: RIKY PICKARD ([id number])[facility] ([facility])[address] [place] [address] Laboratory - Chemistry and C hemistry - challengeOrdered By: Leonila Ruffin on 04-21-2025 Lactate [Moles/Vol] 6.4 mmol/L Critically high 0.5 - 2.2 mmol/L [facility] Laboratory - Chemistry and C hemistry - challengeOrdered By: Leatha Montanez on 04-21-2025 Lactate [Moles/Vol] 4.3 mmol/L Critically high 0.5 - 2.2 mmol/L [facility] Laboratory - Chemistry and C hemistry - challengeon 04-21-2025 CK [Catalytic activity/Vol] 112 U/L 30 - 185 U/L [facility] Laboratory - Coagulationon 0 04-21-2025 aPTT Coag (PPP) [Time] 27.9 s 20.0 - 30.5 s [facility] INR Coag (PPP) [Relative time] 1.1 {INR} 0.9 - 1.1 [facility] Comment on above: Recommended Anticoag ulant [...] [Time] 11.3 s 9.0 - 12.0 s [facility] Laboratory - Hematology and Cell countson 04-21-2025 Hemoglobin (Bld) [Mass/Vol] 10.4 g/dL Low 11.7 - 16.0 g/dL [facility] Laboratory - Hematology and Cell countsOrdered By: Nancy Aaron on 04-21-2025 Hemoglobin (Bld) [Mass/Vol] 10.4 g/dL Low 11.7 - 16.0 g/dL [facility] No Panel InformationOrdered By: Leonila Ruffin on 04-21-2025 Interpretation and review of laboratory results Abnormal [facility] No Panel Informationon 04-21 4h Troponin HS (Serial 3rd Troponin) 101 ng/L High NINF - 14 ng/L [facility] Comment on above: Rising or falling tr oponin delta greater than 15 ng/L as compared to 2h troponin value is significant for acute cardiac injury. Interpretation and review of laboratory results Abnormal [facility] 2h Troponin HS (Serial 2nd Troponin) 82 ng/L High NINF - 14 ng/L [facility] Comment on above: Rising or falling tr oponin delta between 2 15 ng/L as compared to baseline value requires a 3rd serial troponin Interpretation and review of laboratory results Abnormal [facility] Interpretation and review of laboratory results Abnormal [facility] Troponin HS Serial Baseline 68 ng/L High NINF - 14 ng/L [facility] Comment on above: In individuals prese nting with symptoms > 2h, a baseline troponin <= 5 ng/L suggests acute cardiac injury is unlikely and further serial testing is generally not indicated. [facility] There is no interpretation needed for this exam. IMAGING P Hag[place] 53 degrees [facility] [place] Interval 195 ms [facility] QRS Hag[place] -74 degrees [facility] QRSD Interval 97 [facility] 457 ms [facility] QTC Interval 469 ms [facility] T Wave Hag[place] 78 degrees [facility] Sinus rhythm LAD, consider left anterior fascicular block Nonspecific T abnrm, anterolateral leads No change compared to previous ekg Electronically Signed On 04-21-2025 12:28:43 EDT by Elliott Glover M D - 04/21/2025 IMPRESSION: Sinus rhythm LAD, consider left anterior fascicular block Nonspecific T abnrm, anterolateral leads No change compared to previous ekg Electronically Signed On 04-21-2025 12:28:43 EDT by Elliott Navarro [facility] Interpretation and review of laboratory results Normal [facility] No Panel InformationOrdered By: Leatha Montanez on 04-21-2025 Interpretation and review of laboratory results Abnormal [facility] Nursing Noteon 04-21-2025 Nursing Note notified via secure chat of critical lab value of lactic acid of 4.3, no new order received. Normal [facility] Nursing Note Pt granddaughter. Ed, updated at this time. Pt family given pt new room number, on the way to T2 waiting room. Normal [facility] Nursing Note Dr. Ha at pt bedside in PACU. Normal [facility] Nursing Note ICU residents at pt bedside in PACU. Normal [facility] Nursing Note Dr. Lee at pt bedside Normal [facility] Nursing Note Pt granddaughter, Ed, updated at this time. Normal [facility] Nursing Note Ortho.residents at p t bedside to assess pt. Pt w/ hematoma to surgical site L outer thigh, assessed, wrapped w/ MARYAM wrap, saline bag. Per MD, leave MARYAM wrap on overnight. Normal [facility] Nursing Note Dr. Coto at pt bedside in PACU. Normal [facility] Op Noteon 04-21-2025 Op Note Normal [facility] PROTIME AND APTTon aPTT Coag (Bld) [Time] 27.9 s Normal 20.0-30.5 [facility] Comment on above: Performed By: #### L [id number] ####Hose Handler: RIKY PICKARD ([id number])[facility] [employer] INR Coag (PPP) [Relative time] 1.1 {INR} Normal 0.9-1.1 [facility] Comment on above: Result Comment: Jono [...] prevent Myocardial Infarction Performed By: #### L [id number] ####Hose Handler: RIKY PICKARD ([id number])[facility] [employer] PT Coag (PPP) [Time] 11.3 s Normal 9.0-12.0 [facility] Comment on above: Performed By: #### L [id number] ####Hose Handler: RIKY [id number])[facility] ([facility])[address] [place] [address] Vital signson 04-21-2025 Heart rate 63 /min bpm [facility] XR Chest Single viewon 04-21 Patient [...] Electronically Signed Date/Time: 04/21/2025 12:27 PM EDT [facility] RADIOLOGY SYSTEM Jean Paul Payne MD - [...] Electronically Signed Date/Time: 04/21/2025 12:27 PM EDT [facility] Radiology Study observation (narrative) [facility] alth XR FEMUR 2+ VW LEFTon 2024 XR FEMUR 2+ VW LEFT Normal [facility] XR Femur - left 2 Viewson Intact left femoral fixation hardware. Report Dictated on Electronically Signed By: Lexus Rankin MD Electronically Signed Date/Time: 04/21/2025 3:37 PM EDT [facility] RADIOLOGY SYSTEM Patient Name: MADAY ALFARO: 1940 [...] in the soft tissues. Several skin yeni. [facility] RADIOLOGY [facility] Lexus Rankin M D - [...] Electronically Signed Date/Time: 04/21/2025 3:37 PM EDT [facility] Radiology Study observation (narrative) Fabienne Bunch [...] Electronically Signed Date/Time: 04/21/2025 12:24 PM EDT [facility] RADIOLOGY [facility] Jean Paul Payne MD - [...] Electronically Signed Date/Time: 04/21/2025 12:24 PM EDT [facility] Radiology Study observation (narrative) [facility] alth XR Femur - left 2 ViewsOrder ed By: Lexus Rankin on 04-21-2025 [facility] Work Phone: XR Hip - left [...] Electronically Signed Date/Time: 04/21/2025 10:52 AM EDT [facility] RADIOLOGY [facility] Jean Paul Payne MD - [...] Electronically Signed Date/Time: 04/21/2025 10:52 AM EDT [facility] Radiology Study observation (narrative) [facility] alth XR Hip - left 3 ViewsOrdered By: Jean Paul Payne on 04-21-2025 [facility] [employer] Work Phone: Progress Noteon 10-17-2024 Progress Note Normal [facility] Progress Noteon 09-11-2024 Progress [facility] Progress Noteon 08-29-2024 Progress Note [facility] Progress Noteon 08-27-2024 Progress Note Normal [facility] Progress Noteon 08-20-2024 Progress Note Normal [facility] Progress Noteon 08-09-2024 Progress Note Normal [facility] Progress Noteon 08-02-2024 Progress Note Normal [facility] Progress Noteon 07-24-2024 Progress Note [facility] Progress Noteon 07-18-2024 Progress Note Normal [facility] ED Nursing Noteon 07-15-2024 ED Nursing Note Patient reports a fa ll last night and states she tried to break her fall with her right arm. Patient reports right arm pain, unable to move it much. Normal [facility] ED Provider Noteon ED Provider Note Normal [facility] No Panel InformationOrdered By: Jose Gaines on 07-15-2024 [facility] [employer] Work Phone: No Panel Informationon 07-15 Radiology [...] MD Electronically Signed Date/Time: 07/15/2024 3:11 PM [facility] [employer] [facility] XR Shoulder - right 2 Viewso n [...] Electronically Signed Date/Time: 07/15/2024 3:11 PM EST [employer] DXA Skeletal system.axial Vi ews for bone densityon 01-30-2024 Osteoporosis. Report Dictated on Electronically Signed By: Lexus Rankin MD Electronically Signed Date/Time: 01/30/2024 11:44 AM [facility] RADIOLOGY SYSTEM [facility] 1940 [id number] Exam Date/Time: 01/30/2024 11:22 Procedure: DEXA BONE [...] 11 % . (FRAX web version 3.11). [facility] RADI[facility] Leuxs Rankin M D - 01/30/2024 Patient Name: [facility]ADAY [facility]ARO : 1940 [id number] Exam Date/Time: 01/30/2024 11:22 Procedure: DEXA BONE [...] Electronically Signed Date/Time: 01/30/2024 11:44 AM EDT [facility] Radiology Study observation (narrative) [facility] DXA Skeletal system.axial Vi ews for bone densityOrdered By: Lexus Rankin on 01-30-2024 [facility] [employer] Work Phone: XR Foot - right 3 Viewson Minimally displaced fractures of the second through fifth metatarsal necks with mild lateral angulation of the metatarsal heads. The appearance is not significantly changed when compared with films from 10/01/2023. Osteopenia and degenerative changes. Mild soft tissue swelling. Report Dictated on Electronically Signed By: Francisco Frias MD Electronically Signed Date/Time: 10/12/2023 9:01 AM EST [facility] SYSTEM Patient Name: MADAY ALFARO : 1940 [...] radiopaque foreign body or soft tissue gas. [facility] RADIOLOGY [facility] Francisco Frias MD - 10/12/2023 Patient Name: MADAY ALFARO : 1940 [id number] Exam Date/Time: 10/11/2023 11:28 Procedure: XR FOOT [...] Electronically Signed Date/Time: 10/12/2023 9:01 AM EST [facility] XR Foot - right 3 ViewsOrder ed By: Francisco Frias on 10-12-2023 [facility] XR Foot - right 3 Viewson Radiology Study observation (narrative) [facility] XR Foot - right 3 Viewson [...] dislocation is seen. No radiopaque foreign body. [facility] RADIOLOGY [facility] Osman [place] MD - 10/01/2023 [...] Electronically Signed Date/Time: 10/01/2023 12:17 PM EST [facility] Radiology Study observation (narrative) [facility] alth XR Foot - right 3 ViewsOrder ed By: Osman [place] on 10-01-2023 [facility] Work Phone: CT Abdomen/Pelvis w/o Contra ston 12-26-2018 CT Abdomen/Pelvis w/o Contrast Patient Name: MADAY ALFARO CT Exam Date/Time 12/26/2018 07:43:[address] Abdomen/Pelvis (No PO, No IV) Ordering Physician DESTINY JEAN BAPTISTE Accession Number [id number] CPT4 Codes 33742 (CT Abdomen/Pelvis (No PO, No IV)) Reason [...] Transcribed Date and Time: 12/26/2018 9:04 Normal [facility] NM Bone Imaging Whole Bodyon 12-07-2018 NM Bone Imaging Whole Body Patient Name: MADAY ALFARO Nuc Med Exam Date/Time 12/07/2018 13:53:12 EDT Exam NM Bone Imaging Whole Body Ordering Physician DESTINY JEAN BAPTISTE Accession Number [id number] CPT4 Codes 88083 () Reason For Exam intercostal pain Report [...] Transcribed Date and Time: 12/07/2018 2:24 Normal [facility] CR Chest PA/LATon 11-27-2018 CR Chest PA/LAT Patient Name: MADAY ALFARO Diagnostic Radiology Exam Date/Time 11/27/2018 14:12:29 EDT Exam CR Chest PA/LAT Ordering Physician DESTINY JEAN BAPTISTE Accession Number [id number] CPT4 Codes 55722 () Reason For Exam CHEST PAIN Report [...] IMPRESSION: Negative chest. Report Dictated on Workstation: [id number] Final Dictating Physician: DO MELENDEZ ALFRED Signed Date and Time: 11/27/2018 2:47 pm Signed by: DO MELENDEZ ALFRED Transcribed Date and Time: 11/27/2018 2:48 Normal [facility] CR Ribs 2 Views Lefton 11-27 CR Ribs 2 Views Left Patient Name: MAADY ALFARO Diagnostic Radiology Exam Date/Time 11/27/2018 14:13:09 EDT Exam CR Ribs 2 Views Left Ordering Physician MARLENDESTINY HO Accession Number [id number] CPT4 Codes 42040 () Reason For Exam PAIN Report LEFT [...] Transcribed Date and Time: 11/27/2018 2:47 Normal [facility] CR Ribs 2 Views Lefton 08-27 CR Ribs 2 Views Left Patient Name: MADAY ALFARO Diagnostic Radiology Exam Date/Time 08/27/2018 11:05:00 EST Exam CR Ribs 2 Views Left Ordering Physician DESTINY JEAN BAPTISTE Accession Number [id number] CPT4 Codes 43527 () Reason For Exam chest pain Report [...] Transcribed Date and Time: 08/27/2018 1:32 Normal [facility] Comp Panel with Mg Reflexon 08-06-2018 ALP enzyme act/vol 136 U/L High 38-126 [facility] Comment on above: Performed By: #### C MP3M, LIPD2, HEMOG #### [facility] [address] [place] [address] ALT enzyme act/vol 25 U/L Normal 13-69 [facility] Comment on above: Performed By: #### C MP3M, LIPD2, HEMOG #### [facility] [address] [place] [address] AST enzyme act/vol 23 U/L Normal 15-46 [facility] Comment on above: Performed By: #### C MP3M, LIPD2, HEMOG #### [facility] [address] [place] [address] Calcium mass conc 9.8 mg/dL Normal 8.4-10.4 [facility] Comment on above: Performed By: #### C MP3M, LIPD2, HEMOG #### [facility] [address] [place] [address] Glucose mass conc 98 mg/dL Normal 70-100 [facility] Comment on above: Performed By: #### C MP3M, LIPD2, HEMOG #### [facility] [address] [place] [address] Anion gap molar conc 6 Normal [facility] Comment on above: Performed By: #### C MP3M, LIPD2, HEMOG #### [facility] [address] [place] [address] Bilirubin mass conc 0.6 mg/dL Normal 0.2-1.3 [facility] Comment on above: Performed By: #### C MP3M, LIPD2, HEMOG #### [facility] [address] [place] [address] CO2 molar conc 26 mmol/L Normal 22-30 [facility] Comment on above: Performed By: #### C MP3M, LIPD2, HEMOG #### [facility] [address] [place] [address] Creatinine mass conc 0.57 mg/dL Normal 0.52-1.25 [facility] Comment on above: Performed By: #### C MP3M, LIPD2, HEMOG #### [facility] [address] [place] [address] GFR/1.73 sq M predicted among blacks MDRD vol rate/area (S/P/Bld) mL/min/{1.73_m2} Normal >60 [facility] Comment on above: Performed By: #### C MP3M, LIPD2, HEMOG #### [facility] [address] [place] [address] GFR/1.73 sq M predicted among non-blacks MDRD vol rate/area (S/P/Bld) mL/min/{1.73_m2} Normal >60 [facility] Comment on above: Result Comment: Sour ce- MDRD equation with creatinine calibration to IDMS(NKDEP) eGFR not recommended for drug dose adjustment Performed By: #### C MP3M, LIPD2, HEMOG #### [facility] [address] [place] [address] Protein mass conc 6.2 g/dL Low 6.3-8.2 [facility] Comment on above: Performed By: #### C MP3M, LIPD2, HEMOG #### [facility] [address] [place] [address] Urea nitrogen mass conc 10 mg/dL Normal 7-20 [facility] Comment on above: Performed By: #### C MP3M, LIPD2, HEMOG #### [facility] [address] [place] [address] Potassium molar conc 4.0 mmol/L Normal 3.5-5.1 [facility] Comment on above: Performed By: #### C MP3M, LIPD2, HEMOG #### [facility] [address] [place] [address] Sodium molar conc 136 mmol/L Normal 135-145 [facility] Comment on above: Result Comment: NOTE : New Sodium Reference Range effective 2018 @ 10:00 Performed By: #### C MP3M, LIPD2, HEMOG #### [facility] [address] [place] [address] Albumin mass conc 4.0 g/dL Normal 3.5-5.0 [facility] Comment on above: Performed By: #### C MP3M, LIPD2, HEMOG #### [facility] [address] [place] [address] Chloride molar conc 104 mmol/L Normal 98-107 [facility] Comment on above: Performed By: #### C MP3M, LIPD2, HEMOG #### [facility] [address] [place] [address] Hemogramon 08-06-2018 Erythrocyte distribution width Ratio (RBC) 13.2 % Normal 11.5-14.5 [facility] Comment on above: Performed By: #### C MP3M, LIPD2, HEMOG #### [facility] [address] [place] [address] Hematocrit Volume Fraction (Bld) 42.0 % Normal 35.0-47.0 [facility] Comment on above: Performed By: #### C MP3M, LIPD2, HEMOG #### [facility] [address] [place] [address] Hemoglobin mass conc (Bld) 14.5 g/dL Normal 11.7-16.0 [facility] Comment on above: Performed By: #### C MP3M, LIPD2, HEMOG #### [facility] [address] [place] [address] MCH Entitic mass (RBC) 32.7 pg Normal 26.0-34.0 [facility] Comment on above: Performed By: #### C MP3M, LIPD2, HEMOG #### [facility] [address] [place] [address] MCHC mass conc (RBC) 34.4 % Normal 32.0-36.0 [facility] Comment on above: Performed By: #### C MP3M, LIPD2, HEMOG #### [facility] [address] [place] [address] MCV Entitic volume (RBC) 95.0 fL Normal 79.0-98.0 [facility] Comment on above: Performed By: #### C MP3M, LIPD2, HEMOG #### [facility] [address] [place] [address] Platelet mean volume Entitic volume (Bld) 8.7 fL Normal 7.4-10.4 [facility] Comment on above: Performed By: #### C MP3M, LIPD2, HEMOG #### [facility] [address] [place] [address] Platelets #/vol (Bld) 198 10*3/uL Normal 140-440 [facility] Comment on above: Performed By: #### C MP3M, LIPD2, HEMOG #### [facility] [address] [place] [address] RBC #/vol (Bld) 4.42 10*6/uL Normal 3.80-5.20 [facility] Comment on above: Performed By: #### C MP3M, LIPD2, HEMOG #### [facility] [address] [place] [address] WBC #/vol (Bld) 5.1 10*3/uL Normal 3.6-10.7 [facility] Comment on above: Performed By: #### C MP3M, LIPD2, HEMOG #### [facility] [address] [place] [address] Lipid Panelon 08-06-2018 Cholesterol in HDL mass conc 69 mg/dL High 40-60 [facility] Comment on above: Performed By: #### C MP3M, LIPD2, HEMOG #### [facility] [address] [place] [address] Cholesterol.total/Mary sterol in HDL mass ratio 3 Normal [facility] Comment on above: Result Comment: Ref Range: < 3 Low Risk for CHD 3-6 Mod Risk for CHD > 6 High Risk for CHD Performed By: #### C MP3M, LIPD2, HEMOG #### [facility] [address] [place] [address] Protein mass conc 100 mg/dL Abnormal <100 [facility] Comment on above: Performed By: #### C MP3M, LIPD2, HEMOG #### [facility] [address] [place] [address] Triglyceride mass conc 79 mg/dL Normal <150 [facility] Comment on above: Performed By: #### C MP3M, LIPD2, HEMOG #### [facility] [address] [place] [address] Cholesterol mass conc 185 mg/dL Normal < 200 [facility] Comment on above: Performed By: #### C MP3M, LIPD2, HEMOG #### [facility] [address] [place] [address] NM Myocardial Perf Imaging Lisa ulti Specton 08-06-2018 NM Myocardial Perf Imaging Multi Spect Patient Name: MADAY ALFARO Nuc Med Exam Date/Time 08/06/2018 09:56:39 EST Exam NM Myocardial Perf Imaging Multi Spect Ordering Physician DO SARMIENTO GEORGE E Accession Number [id number] CPT4 Codes 01362 () Reason For Exam Other forms of [...] The patient was transferred to the telemetry [facility]. --------- --- Procedure data: Initial setup. [...] peak heart rate and blood pressure was [address] mm Hg/min. 2 out of 10 stress-induced [...] Signed by: MD LO KEVIN H Normal [facility] Basic Metabolic Panelon 07-15 Calcium mass conc 9.8 mg/dL Normal 8.4-10.4 [facility] Comment on above: Performed By: #### B NP3, BMP3, TROPN, HEMOG #### [facility] [address] [place] [address] Glucose mass conc 87 mg/dL Normal 70-100 [facility] Comment on above: Performed By: #### B NP3, BMP3, TROPN, HEMOG #### [facility] [address] [place] [address] Urea nitrogen mass conc 13 mg/dL Normal 7-20 [facility] Comment on above: Performed By: #### B NP3, BMP3, TROPN, HEMOG #### [facility] [address] [place] [address] Anion gap molar conc 4 Normal [facility] Comment on above: Performed By: #### B NP3, BMP3, TROPN, HEMOG #### [facility] [address] [place] [address] CO2 molar conc 28 mmol/L Normal 22-30 [facility] Comment on above: Performed By: #### B NP3, BMP3, TROPN, HEMOG #### [facility] [address] [place] [address] Creatinine mass conc 0.67 mg/dL Normal 0.52-1.25 [facility] Comment on above: Performed By: #### B NP3, BMP3, TROPN, HEMOG #### [facility] [address] [place] [address] GFR/1.73 sq M predicted among blacks MDRD vol rate/area (S/P/Bld) mL/min/{1.73_m2} Normal >60 [facility] Comment on above: Performed By: #### B NP3, BMP3, TROPN, HEMOG #### [facility] [address] [place] [address] GFR/1.73 sq M predicted among non-blacks MDRD vol rate/area (S/P/Bld) mL/min/{1.73_m2} Normal >60 [facility] Comment on above: Result Comment: Sour ce- MDRD equation with creatinine calibration to IDMS(NKDEP) eGFR not recommended for drug dose adjustment Performed By: #### B NP3, BMP3, TROPN, HEMOG #### [facility] [address] [place] [address] Potassium molar conc 4.4 mmol/L Normal 3.5-5.1 [facility] Comment on above: Performed By: #### B NP3, BMP3, TROPN, HEMOG #### [facility] [address] [place] [address] Chloride molar conc 102 mmol/L Normal 98-107 [facility] Comment on above: Performed By: #### B NP3, BMP3, TROPN, HEMOG #### [facility] [address] [place] [address] Sodium molar conc 133 mmol/L Low 135-145 [facility] Comment on above: Result Comment: NOTE : New Sodium Reference Range effective 2018 @ 10:00 Performed By: #### B NP3, BMP3, TROPN, HEMOG #### [facility] [address] [place] [address] CR Chest Portableon 08-05-20 18 CR Chest Portable Patient Name: MADAY ALFARO Diagnostic Radiology Exam Date/Time 08/05/2018 13:12:00 EST Exam CR Chest Portable Ordering Physician LILLY STANLEY BETH A. Accession Number [id number] CPT4 Codes 22482 () Reason For Exam chest pain Report [...] Transcribed Date and Time: 08/05/2018 1:35 Normal [facility] ED Provider Noteon 8 Protein mass conc [...] contact the dictating provider for clarification[facility] : 1940 Date of Evaluation: 08/05/2018 ED [place] Provider: DALTON Mari CNPare was supervised by Dr. mcnally who independently examined and evaluated the patient. Please see their attestation note for further details. Chief Complaint Chief Complaint Patient presents with ? Chest Pain [place] Maday Alfaro is a 78 y.o. female [...] otherwise acutely negative except as in the [place]. Past History Past Medical History: Diagnosis Date [...] eGFR >60.0 >60 mL/min EGFR IF NonAfrican South African >60.0 >60 mL/min Calcium 9.8 8.4 - [...] Physician LILLY STANLEY BETH A. Accession Number [id number] CPT4 Codes 63332 () Reason For Exam chest pain Report [...] Department Physician in the absence of a piece presser.?Please see their note for interpretation of EKG. [...] with no distention. Patient was admitted [facility] doctor Lauryn's service with chest pain. Patient [...] occasionally words aremis-transcribed.) Beltran Darnell, DALTON - PEELED POTATO INSPECTOR [employer] Beltran Darnell APRN - PEELED POTATO INSPECTOR 08/05/18 1507 Normal [facility] Hemogramon 08-05-2018 Erythrocyte distribution width Ratio (RBC) 13.1 % Normal 11.5-14.5 [facility] Comment on above: Performed By: #### B NP3, BMP3, TROPN, HEMOG #### [facility] [address] [place] [address] Hematocrit Volume Fraction (Bld) 40.9 % Normal 35.0-47.0 [facility] Comment on above: Performed By: #### B NP3, BMP3, TROPN, HEMOG #### [facility] [address] [place] [address] Hemoglobin mass conc (Bld) 14.3 g/dL Normal 11.7-16.0 [facility] Comment on above: Performed By: #### B NP3, BMP3, TROPN, HEMOG #### [facility] [address] [place] [address] MCH Entitic mass (RBC) 34.0 pg Normal 26.0-34.0 [facility] Comment on above: Performed By: #### B NP3, BMP3, TROPN, HEMOG #### [facility] [address] [place] [address] MCHC mass conc (RBC) 35.0 % Normal 32.0-36.0 [facility] Comment on above: Performed By: #### B NP3, BMP3, TROPN, HEMOG #### [facility] [address] [place] [address] MCV Entitic volume (RBC) 97.2 fL Normal 79.0-98.0 [facility] Comment on above: Performed By: #### B NP3, BMP3, TROPN, HEMOG #### [facility] [address] [place] [address] Platelet mean volume Entitic volume (Bld) 8.5 fL Normal 7.4-10.4 [facility] Comment on above: Performed By: #### B NP3, BMP3, TROPN, HEMOG #### [facility] [address] [place] [address] Platelets #/vol (Bld) 206 10*3/uL Normal 140-440 [facility] Comment on above: Performed By: #### B NP3, BMP3, TROPN, HEMOG #### [facility] [address] [place] [address] RBC #/vol (Bld) 4.20 10*6/uL Normal 3.80-5.20 [facility] Comment on above: Performed By: #### B NP3, BMP3, TROPN, HEMOG #### [facility] [address] [place] [address] WBC #/vol (Bld) 5.1 10*3/uL Normal 3.6-10.7 [facility] Comment on above: Performed By: #### B NP3, BMP3, TROPN, HEMOG #### [place] [address] [place] [address] NT pro BNPon 08-05-2018 Natriuretic peptide B mass conc (Bld) 354 pg/mL Normal 0-450 [facility] Comment on above: Performed By: #### B NP3, BMP3, TROPN, HEMOG #### [facility] [address] [place] [address] Troponin Ion 08-05-2018 Troponin I.cardiac mass conc ng/mL Normal 0.000-0.034 [facility] Comment on above: Result Comment: 0.04 6 - 0.400 = Indeterminate > 0.400 = Consider Myocardial Injury Performed By: #### T ROPN #### [place] [address] [place] [address] Troponin I.cardiac mass conc ng/mL Normal 0.000-0.034 [facility] Comment on above: Result Comment: 0.04 6 - 0.400 = Indeterminate > 0.400 = Consider Myocardial Injury Performed By: #### B NP3, BMP3, TROPN, HEMOG #### [facility] [address] [place] [address] Vital Signs Date Time Vital Sign Value Performing Clinician Roberto owens 2025 07:46-0400 Diastolic blood pressure 90 mm[Hg] Blayne Venczel DO Work Phone: [employer] 2025 07:46-0400 Heart rate 75 /min Blayne Shahel DO Work Phone: [employer] 2025 07:46-0400 Systolic blood pressure 131 mm[Hg] Blayne Ellisczel DO Work Phone: [employer] 2025 07:35-0400 Body temperature 98.29 [degF] Blayne Shahel DO Work Phone: [employer] 2025 07:35-0400 SaO2% (BldA) [Mass fraction] 98 % Blayne Castaneda DO Work Phone: [employer] 2025 04:01-0400 Body mass index (BMI) [Ratio] 21.49 kg/m2 Blayne Castaneda DO Work Phone: [employer] 2025 04:01-0400 Body weight 60.4 kg Blayne Castaneda DO Work Phone: [employer] 05-15-2025 19:37-0400 Respiratory rate 16 /min Blayne Castaneda DO Work Phone: [employer] 05-13-2025 11:21-0400 Body height 167.6 cm Blayne Castaneda DO Work Phone: [employer] 04-30-2025 10:01-0400 Body temperature 98.4 [degF] Elliott Navarro MD Work Phone: [employer] 04-30-2025 10:01-0400 Diastolic blood pressure 68 mm[Hg] Elliott Navarro MD Work Phone: [employer] 04-30-2025 10:01-0400 Heart rate 72 /min Elliott Navarro MD Work Phone: [employer] 04-30-2025 10:01-0400 Respiratory rate 18 /min Elliott Navarro MD Work Phone: [employer] 04-30-2025 10:01-0400 SaO2% (BldA) [Mass fraction] 95 % Elliott Navarro MD Work Phone: [facility] 04-30-2025 10:01-0400 Systolic blood pressure 110 mm[Hg] Elliott Navarro MD Work Phone: [facility] 04-22-2025 13:37-0400 Body height 167.6 cm Elliott Navarro MD Work Phone: [facility] 04-22-2025 13:37-0400 Body mass index (BMI) [Ratio] 21.95 kg/m2 Elliott Navarro MD Work Phone: [employer] [facility] 04-22-2025 13:37-0400 Body weight 61.69 kg Elliott Navarro MD Work Phone: [employer] [facility] 08-29-2024 10:12-0500 Body height 167.6 cm Chris Jesse PA-C Work Phone: [employer] [facility] 08-29-2024 10:12-0500 Body mass index (BMI) [Ratio] 21.95 kg/m2 Chris Jesse PA-C Work Phone: [employer] 08-29-2024 10:12-0500 Body weight 61.69 kg Chris Jesse PA-C Work Phone: [employer] 07-18-2024 10:45-0500 Body height 167.6 cm Brendon Sommers MD Work Phone: [employer] [facility] 07-18-2024 10:45-0500 Body mass index (BMI) [Ratio] 21.95 kg/m2 Brendon Sommers MD Work Phone: [employer] 07-18-2024 10:45-0500 Body weight 61.69 kg Brendon Sommers MD Work Phone: [employer] [facility] 07-15-2024 16:26-0500 Diastolic blood pressure 71 mm[Hg] Nguyễn Caal DO Work Phone: [employer] [facility] 07-15-2024 16:26-0500 Heart rate 63 /min Mejgon Afua DO Work Phone: [facility] 07-15-2024 16:26-0500 Respiratory rate 17 /min Nguyễn Caal DO Work Phone: [facility] 07-15-2024 16:26-0500 SaO2% (BldA) [Mass fraction] 98 % Nguyễn Fairchildya DO Work Phone: [facility] 07-15-2024 16:26-0500 Systolic blood pressure 120 mm[Hg] Nguyễn Fairchildya DO Work Phone: [facility] 07-15-2024 15:44-0500 Body height 167.6 cm Nguyễn Fairchildya DO Work Phone: [facility] 07-15-2024 15:44-0500 Body mass index (BMI) [Ratio] 21.95 kg/m2 Nguyễn Fairchildya DO Work Phone: [facility] 07-15-2024 15:44-0500 Body weight 61.69 kg Nguyễn Fairchildya DO Work Phone: [facility] 07-15-2024 14:13-0500 Body temperature 97.5 [degF] Nguyễn Fairchildya DO Work Phone: [facility] 11-22-2023 12:57-0400 Body height 167.6 cm Griselda Tulodzieski-Ahlstrom DPM Work Phone: [facility] 11-22-2023 12:57-0400 Body mass index (BMI) [Ratio] 23.57 kg/m2 Griselda Tulodzieski-Ahlstrom DPM Work Phone: [facility] 11-22-2023 12:57-0400 Body weight 66.22 kg Griselda Tulodzieski-Ahlstrom DPM Work Phone: [facility] 10-11-2023 11:43-0500 Body height 167.6 cm Griselda Tulodzieski-Ahlstrom DPM Work Phone: [facility] 10-11-2023 11:43-0500 Body mass index (BMI) [Ratio] 23.57 kg/m2 Griselda GarciasterlingCathleenzohrehveto DPM Work Phone: [facility] 10-11-2023 11:43-0500 Body weight 66.22 kg Griseldagonzález GarciamalvinprettyyareliRuchizohrehveto DPM Work Phone: [facility] 10-01-2023 11:23-0500 Body temperature 97.9 [degF] Destiny Rangelobedgeorgia Work Phone: [facility] 10-01-2023 11:23-0500 Body weight 66.22 kg Destiny Rangelfilgeorgia Work Phone: [facility] 10-01-2023 11:23-0500 Diastolic blood pressure 79 mm[Hg] Destiny Pamfilie Work Phone: [facility] 10-01-2023 11:23-0500 Heart rate 73 /min Destiny Rangelfilgeorgia Work Phone: [facility] 10-01-2023 11:23-0500 Respiratory rate 14 /min Destiny Rangelfilie Work Phone: [facility] 10-01-2023 11:23-0500 SaO2% (BldA) [Mass fraction] 97 % Destiny Pamfilgeorgia Work Phone: [facility] 10-01-2023 11:23-0500 Systolic blood pressure 131 mm[Hg] Destiny Pamfilgeorgia Work Phone: [facility] Encounters Encounter Date Encounter Type Care Provider Facility Start: 05-12-2025 End: 05-13-2025 Telephone encounter Krupa Abdi CNP Work Phone: [facility]iology - [place] Start: 05-12-2025 End: 05-12-2025 Evaluation and management of inpatient CAMILO PUGA [facility] Start: 05-10-2025 End: 2025 Evaluation and management of inpatient [facility] Comment on above: Stroke-like symptoms (Primary Dx); Altered mental status, unspecified altered mental status type; Declining functional status; Edema of left forearm; Closed nondisplaced fracture of surgical neck of right humerus, unspecified fracture morphology, initial encounter Start: 05-09-2025 End: 05-09-2025 Orders Only Travis Meng MD Work Phone: [facility] - [place] Comment on above: Closed displaced int ertrochanteric fracture of left femur with routine healing, subsequent encounter (Primary Dx) Paroxysmal atrial fi brillation (HCC) Start: 05-05-2025 ambulatory [facility] Facility:[facility] Start: 05-02-2025 ambulatory [facility] Facility:[facility] Start: 05-01-2025 End: 05-01-2025 Telephone encounter Krupa Cid APRN - PEELED POTATO INSPECTOR Work Phone: [facility]iology - [place] Start: 04-25-2025 End: 04-25-2025 Orders Only Krupa Cid APRN - PEELED POTATO INSPECTOR Work Phone: [facility] - [place] Comment on above: Paroxysmal atrial fi brillation (HCC) (Primary Dx) Start: 04-21-2025 End: 04-30-2025 Evaluation and management of inpatient Elliott Navarro MD Work Phone: [facility] Tra[facility] Neuro Progressive Care Unit PCU 3W Comment on above: Closed intertrochant travis fracture of hip, left, initial encounter (HCC) (Primary Dx); Closed displaced intertrochanteric fracture of left femur, initial encounter (HCC); Osteoporosis, unspecified osteoporosis type, unspecified pathological fracture presence Start: 10-17-2024 End: 10-17-2024 Documentation procedure Jennifer Esparza PT [facility] Comment on above: PT Discharge Start: 09-11-2024 End: 09-11-2024 ambulatory BRENDON SOMMERS [facility] Start: 09-11-2024 End: 09-11-2024 Follow-up encounter Brendon Sommers MD Work Phone: [facility] [place] Comment on above: Closed nondisplaced fracture of surgical neck of right humerus, unspecified fracture morphology, initial encounter (Primary Dx) Start: 08-29-2024 End: 08-29-2024 Postop follow up visit related to original px Chris Molina [place] Work Phone: [facility] Orthopedics and Sports [facility] [place] Comment on above: Closed fracture of p roximal end of right humerus with routine healing, unspecified fracture morphology, subsequent encounter (Primary Dx) Start: 08-29-2024 End: 08-29-2024 ambulatory CHRIS MOLINA [facility] Start: 08-27-2024 End: 08-27-2024 Orders Only Chris Molina [place] Work Phone: [facility] [place] [facility] Comment on above: Closed nondisplaced fracture of surgical neck of right humerus, unspecified fracture morphology, initial encounter (Primary Dx) Start: 08-20-2024 End: 08-20-2024 Follow-up encounter Brendon Sommers MD Work Phone: [facility] Comment on above: Closed nondisplaced fracture of surgical neck of right humerus, unspecified fracture morphology, initial encounter (Primary Dx) Start: 08-20-2024 End: 08-20-2024 ambulatory [facility] Start: 08-09-2024 End: 08-09-2024 Follow-up encounter Brendon Sommers MD Work Phone: [facility] Comment on above: Closed nondisplaced fracture of surgical neck of right humerus, unspecified fracture morphology, initial encounter (Primary Dx) Start: 08-09-2024 End: 08-09-2024 ambulatory [facility] Start: 08-02-2024 End: 08-02-2024 Follow-up encounter Brendon Sommers MD Work Phone: [facility] Comment on above: Closed nondisplaced fracture of surgical neck of right humerus, unspecified fracture morphology, initial encounter (Primary Dx) Start: 08-02-2024 End: 08-02-2024 ambulatory BRENDON [facility] Start: 07-24-2024 End: 07-24-2024 [facility] Start: 07-18-2024 End: 07-18-2024 Office outpatient new 30 minutes Brendon Sommers MD Work Phone: [facility] [place] Comment on above: Closed nondisplaced fracture of surgical neck of right humerus, unspecified fracture morphology, initial encounter Start: 07-18-2024 End: 07-18-2024 ambulatory CHRISTIAN HARRISON [facility] Start: 07-15-2024 End: 07-15-2024 Emergency department patient visit Nguyễn Fairchildya Work Phone: [facility] ED Comment on above: Closed nondisplaced fracture of surgical neck of right humerus, unspecified fracture morphology, initial encounter (Primary Dx) Start: 01-30-2024 End: 01-30-2024 Subsequent hospital visit by physician Griselda GONZALEZM Work Phone: [facility] Comment on above: Menopause Start: 01-25-2024 Orders Only Griselda GONZALEZM Work Phone: [facility] Comment on above: Menopause (Primary D x) Start: 11-22-2023 End: 11-22-2023 Postop follow up visit related to original px Griselda GONZALEZM Work Phone: [facility] Orthopedics and Sports Medicine [...] by physician Griselda harris DPM Work Phone: [facility] CT Imaging Comment on above: Closed displaced fra cture of metatarsal bone of right foot, unspecified metatarsal, initial encounter; Lisfranc's sprain, right, subsequent encounter Start: 10-11-2023 End: 10-11-2023 Office outpatient new 30 minutes Griselda harris DPM Work Phone: [facility] Orthopedics and Sports Medicine Comment on above: [...] by physician Griselda harris DPM Work Phone: [facility] X-ray Imaging Comment on above: Closed displaced fra cture of metatarsal bone of right foot, unspecified metatarsal, initial encounter Start: 10-01-2023 End: 10-01-2023 Emergency department patient visit Destiny Jean Baptiste Work Phone: [facility] ED Comment on above: Closed displaced [...] josefina or Plasma Krupa Cid DALTON Abdi PEELED POTATO INSPECTOR Work Phone: Start: 05-10-2025 Ecg routine ecg [...] thyroid sti mulating hormone tsh Sebas Oh HOISTMAN - DIRECTOR OF ALUMNI RELATIONS Work Phone: Start: 04-24-2025 Drug screen quantita tive phenytoin free Sebas Oh HOISTMAN - DIRECTOR OF ALUMNI RELATIONS Work Phone: Start: 04-24-2025 Basic metabolic pane [...] lds trcg only w/o i&r Ailynalina Tatum appening Work Phone: Start: 04-21-2025 End: 04-21-2025 Radex hip unilateral with pelvis 2-3 views AilynSina Deepti appening Work Phone: Start: 04-21-2025 Antibody screen JANNETH PATRICIO Comment on above: Performed By: #### L [id number] ####Hose Handler: RIKY PICKARD ([id number])[facility] ([facility])[address] [place] [address] Start: 04-21-2025 ABO and Rh group [Ty pe] in Blood by Confirmatory method Brant Tatum appening Work Phone: Start: 04-21-2025 Blood typing serologic abo [employer] Work Phone: Start: 04-21-2025 Comprehensive metabolic panel [...] foot complete minimum 3 views Jaguar Christine HOISTMAN - PEELED POTATO INSPECTOR Work Phone: Plan of Treatment Date Care Activity Detail Author Start: 11-06-2034 DTaP/Tdap/Td Vaccine s (2 - Td or Tdap) DTaP/Tdap/Td Vaccines (2 - Td or Tdap) [facility] Start: 05-11-2030 Lipid panel Lipid Panel [facility] Start: 01-29-2026 Screening for osteoporosis Bone Density Scan [facility] Start: 10-23-2025 End: 10-23-2025 Patient encounter procedure 10/23/2025 3:00 PM EDT Office Visit [facility] Osteoporosis [address] [place] [address] Yaneli Cruz, HOISTMAN - PEELED POTATO INSPECTOR [address] [place] [address] [facility] Osteoporosis [facility] Start: 05-13-2025 End: 05-09-2026 XR Femur - left 2 Views XR femur left 2+ views Imaging Routine Closed displaced intertrochanteric fracture of left femur with routine healing, subsequent encounter Expected: 05/13/2025, Expires: 05/09/2026 [facility] Work Phone: Comment on above: Expected: 05/13/2025 , Expires: 05/09/2026 Start: 05-13-2025 End: 05-13-2025 Patient encounter procedure [facility] - [place] Start: 05-09-2025 End: 05-09-2025 Patient encounter procedure 05/09/2025 2:30 PM EDT Appointment [facility] [address] [place] [address] [facility] Start: 04-25-2025 End: 04-25-2027 Cardiac event monitor (30 days) Cardiac event monitor (30 days) [facility] Routine Paroxysmal atrial fibrillation (HCC) Expected: 04/25/2025, Expires: 04/25/2027 [facility] Work Phone: Comment on above: Expected: 04/25/2025 , Expires: 04/25/2027 Start: 04-14-2025 COVID-19 Vaccine ( season) COVID-19 Vaccine () [facility] Start: 04-14-2025 Influenza vaccination Influenza Vacc ine (#1) [facility] Start: 10-10-2024 End: 10-10-2024 Patient encounter procedure 10/10/2024 11:00 AM EST Office Visit [facility] [address] [place] [phone] Chris Molina PA-C [address] [place], [place] [address] [facility] Sports Medicine - [facility] Start: 10-09-2024 End: 10-09-2024 Follow-up encounter 10/09/2024 10:30 AM EST Follow-Up [facility] at [facility] [address] [place] [phone] Brendon Sommers MD [address] [facility] [address] [place], [place] [address] Jennifer Esparza, PT [facility] at [facility] Start: 10-01-2024 End: 10-01-2024 Follow-up encounter 10/01/2024 10:30 AM EST Follow-Up [facility] at [address] [place] [address] Brendon Sommers MD [address] [facility] [address] [place] [address] Jennifer Ruffin PTA [facility] at [facility] Start: 09-25-2024 End: 09-25-2024 Follow-up encounter 09/25/2024 1:30 PM EST Follow-Up [facility] at [address] [place] [address] Brendon Sommers MD [address] [facility] [address] [place] [address] Kanwal Beard PTA [facility] at [facility] Start: 09-18-2024 End: 09-18-2024 Follow-up encounter 09/18/2024 10:30 AM EST Follow-Up [facility] at [address] [place] [address] Brendon Sommers MD [address] [facility] [address] [place] [address] Jennifer Esparza, PT [facility] at [facility] Start: 08-29-2024 End: 08-27-2025 XR Shoulder - right 2 Views XR shoulder 2+ views right Imaging Routine Closed nondisplaced fracture of surgical neck of right humerus, unspecified fracture morphology, initial encounter Expected: 08/29/2024, Expires: 08/27/2025 [facility] Work Phone: Comment on above: Expected: 08/29/2024 , Expires: 08/27/2025 Start: 08-29-2024 End: 08-29-2024 Patient encounter procedure 08/29/2024 10:30 AM EST Office Visit [facility] Orthopedics and Sports Medicine - [facility] [address] [address] [place] [address] Chris Molina PA-C [address] [facility] [address] [place] [address] [facility] Start: 08-27-2024 End: 08-27-2024 Follow-up encounter 08/27/2024 11:15 AM EST Follow-Up [facility] at [place] [address] [facility] [place] [address] Brendon Sommers MD [address] [facility] [address] [place] [address] Jennifer Esparza, PT [facility] Start: 08-20-2024 End: 08-20-2024 Follow-up encounter 08/20/2024 11:00 AM EST Follow-Up [facility] [place] [address] [address] [place] [address] Brendon Sommers MD [address] [facility] [address] [place] [address] Jennifer Ruffin, BEAM PRESS OPERATOR [facility] Start: 08-14-2024 Medicare Advantage Annual Wellness Visit Medicare Advantage Annual Wellness Visit [facility] Start: 08-09-2024 End: 08-09-2024 Follow-up encounter 08/09/2024 2:00 PM EST [facility] [place] [address] [address] [place] [address] Jennifer Ruffin, BEAM PRESS OPERATOR [facility] Start: 04-14-2024 COVID-19 Vaccine ( season) COVID-19 Vaccine () [facility] Start: 04-14-2024 Influenza vaccination [facility] Start: 01-30-2024 End: 01-30-2024 Patient encounter procedure 01/30/2024 11:15 AM EDT Appointment [facility] [address] [place] [phone] Griselda Brown, MOUSTAPHA [address] [place] [address] [facility] Start: 01-25-2024 End: 01-24-2025 DXA Skeletal system.axial Views for bone density DEXA bone density axial skeleton Imaging Routine Menopause Expected: 01/25/2024, Expires: 01/24/2025 [employer] Work Phone: Comment on above: Expected: 01/25/2024 , Expires: 01/24/2025 Start: 11-22-2023 End: 11-21-2024 DXA Skeletal system.axial Views for bone density DEXA bone density axial skeleton Imaging Routine Closed nondisplaced fracture of metatarsal bone of right foot, unspecified metatarsal, initial encounter Expected: 11/22/2023, Expires: 11/21/2024 [employer] Work Phone: Comment on above: Expected: 11/22/2023 , Expires: 11/21/2024 Start: 10-11-2023 End: 10-11-2024 CT Foot - right WO contrast CT foot right wo IV contrast Imaging Routine Closed displaced fracture of metatarsal bone of right foot, unspecified metatarsal, initial encounter Lisfranc's sprain, right, subsequent encounter Expected: 10/11/2023, Expires: 10/11/2024 [employer] Work Phone: Comment on above: Expected: 10/11/2023 , Expires: 10/11/2024 Start: 08-14-2023 Medicare Advantage Annual Wellness Visit Medicare Advantage Annual Wellness Visit [facility] Start: 04-14-2023 COVID-19 Vaccine ( season) COVID-19 Vaccine ( season) [facility] Start: 04-14-2023 Influenza vaccination Influenza Vacc ine (#1) [facility] Start: 2016 RSV Immunization for Adults (1 - 1-dose 75+ series) RSV Immunization for Adults (1 - 1-dose 75+ series) [facility] Start: 2001 RSV Immunization age d 60 or older (1 - 1-dose 60+ series) RSV Immunization aged 60 or older (1 - 1-dose 60+ series) [facility] Start: 1991 Zoster Vaccines (1 o f 2) Zoster Vaccines (1 of 2) [facility] Start: 1960 DTaP/Tdap/Td Vaccine s (1 - Tdap) DTaP/Tdap/Td Vaccines (1 - Tdap) [facility] Start: 1960 Pneumococcal Vaccine : 50+ Years (1 of 2 - PCV) Pneumococcal Vaccine: 50+ Years (1 of 2 - PCV) [facility] Start: 1953 Depression Monitoring Depression Mon itoring [facility] Start: 1953 Depression Screening Depression Scre ening [facility] Start: 1947 Pneumococcal Vaccine : 65+ Years (1 of 2 - PCV) Pneumococcal Vaccine: 65+ Years (1 of 2 - PCV) [facility] Start: 1941 Lipid panel Lipid Panel [facility] Start: 1941 Medicare Advantage Annual Wellness Visit (AWV) Medicare Advantage Annual Wellness Visit (AWV) [facility] Start: 1941 Screening for osteoporosis Bone Density Scan [facility] End: 05-09-2025 Cardiac event monitor (30 days) [facility] Work Phone: Comment on above: Once for 1 Occurrenc es starting 05/09/2025 until 05/09/2025 End: 11-04-2023 CT Foot - right WO contrast [facility] [employer] Work Phone: Comment on above: Once for 1 Occurrenc es starting 11/04/2023 until 11/04/2023 Immunizations Immunization Date Immunization Notes Care Provider Fa cility NEGATED: Highlighted row has not occurred!05-10-2025 Seasonal trivalent influenza vaccine, adjuvanted, preservative free 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 2019 Medicare HMO [facility] MEDICARE [id number] 2019 Medicare [id number] Unknown [id number] Unknown [id number] Social History Date Type Detail Facility Start: 06-22-2022 Tobacco smoking status IAIS Smokes t obacco daily [facility] History of tobacco use Cigarette Smoker [facility] Start: 06-22-2022 Tobacco use and exposure Smokeless t obacco non-user [facility] Start: 06-22-2022 End: 05-11-2025 Alcohol intake Current non-drinker of alcohol (finding) [facility] Start: 10-01-2023 End: 05-14-2025 History of Social function [facility] Start: 10-01-2023 End: 05-14-2025 Alcohol Use Disorder Identification Test - Consumption [AUDIT-C] [facility] How often to you hav e a drink containing alcohol? Never [facility] How many standard dr inks containing alcohol do you have on a typical day? Patient does not drink [facility] Start: 1940 Sex Assigned At Not on file [facility] Start: 1940 Sex assigned at Female [facility] Start: 03-14-2022 Sex Female (finding) [facility] Within the last year , have you been afraid of your partner or ex-partner? No [facility] Start: 04-24-2025 Gender identity Identifies as female gender (finding) [facility] Start: 04-24-2025 Sexual orientation Heterosexual (fin ding) [facility] (I/We) worried wheth er (my/our) food would run out before (I/we) got money to buy more. Never true [facility] Medical Equipment Procedure Code Equipment Code Equipment Origin al Text Equipment Identifier Dates Nail Intertan 10 s 10x40 125d L - [id number] Start: 04-21-2025 Kit Scr 90mm 4.5 mm Intertan - [id number] Start: 04-21-2025 Screw Bn 5mm 42. 5mm Trgn Fem - [id number] Start: 04-21-2025 Goals Date Patient Goal Desired Activity /State Personal health goal Functional Status Date Assessment Result Facility [facility] Clinical Notes 10-01-2023 to 2025 [...] : 41 AGE: 84 GENDER: Female ROOM: [facility]/A PHYSICIAN REQUESTING CONSULT: Dr. Bunn NEUROLOGIST: Mikala Camargo MD DATE OF ADMISSION: 05-10-25 REASON FOR NEUROLOGY CONSULTATION: Altered mental status with dysphasia and right-sided facial droop. INTERVAL HISTORY OF PRESENT ILLNESS ED HISTORY OF PRESENT ILLINESS Maday Alfaro who was admitted to the Emergency Department at [facility] on 05-10-25. She presented with altered mental [...] confusion and a recent fall at the intermediate. She expresses a strong desire to be [...] Year, Day, Place, City, and President of [facility]: Impaired CEREBELLAR FUNCTION No tremor. No extraneous [...] neurologically clear for discharge today May 16 LEAD SPRINKLER During this comprehensive evaluation, I dedicated a significant amount of time, 35 minutes, to thoroughly reviewing all current medical records and relevant diagnostic tests. This thoroughness was essential for me to engage in a ftoh-gq-vwvn interview and conduct a focused neurological examination, [...] Alfaro's approval, I created this report using [employer] Mobile voice recognition system, Nicholas Touch of [employer], and Reyna Co-investment accountant. I conducted an accurate and prompt anatomic pathology assistant and a thorough editorial review. Acknowledging that [...] and cooperation. Mikala Camargo MD Comprehensive Neurologist [facility] 2025 Consult note Formatting of th [...] was admitted to the Emergency Department at [facility] on 05-10-25. She presented with altered mental [...] confusion and a recent fall at the intermediate. She expresses a strong desire to be [...] Year, Day, Place, City, and President of [facility]: Impaired CEREBELLAR FUNCTION No tremor. No extraneous [...] neurologically clear for discharge today May 16 LEAD SPRINKLER During this comprehensive evaluation, I dedicated a significant amount of time, 35 minutes, to thoroughly reviewing all current medical records and relevant diagnostic tests. This thoroughness was essential for me to engage in a kkfz-am-wfor interview and conduct a focused neurological examination, [...] Alfaro's approval, I created this report using Ubitricity recognition system, SuzyFunsherpabraden, and Reyna Co-investment accountant. I conducted an accurate and prompt anatomic pathology assistant and a thorough editorial review. Acknowledging that [...] : 41 AGE: 84 GENDER: Female ROOM: [facility]/A PHYSICIAN REQUESTING CONSULT: Dr. Bunn NEUROLOGIST: Mikala Camargo MD DATE OF ADMISSION: 05-10-25 REASON FOR NEUROLOGY CONSULTATION: Altered mental status with dysphasia and right-sided facial droop. INTERVAL HISTORY OF PRESENT ILLNESS ED HISTORY OF PRESENT ILLINESS Maday Alfaro who was admitted to the Emergency Department at [facility] on 05-10-25. She presented with altered mental [...] confusion and a recent fall at the intermediate. She expresses a strong desire to be [...] Year, Day, Place, City, and President of [facility]: Impaired CEREBELLAR FUNCTION No tremor. No extraneous [...] Alfaro on MondayMay 13 during Neurology Rounds. LEAD SPRINKLER During this comprehensive evaluation, I dedicated a significant amount of time, 55 minutes, to thoroughly reviewing all current medical records and relevant diagnostic tests. This thoroughness was essential for me to engage in a vzmb-kd-gual interview and conduct a focused neurological examination, [...] s approval, I created this report using Defense Mobile voice recognition system, Tengah, and Felicitas[employer]-investment accountant. I conducted an accurate and prompt anatomic pathology assistant and a thorough editorial review. Acknowledging that [...] and cooperation. Mikala Camargo MD Comprehensive Neurologist [phone] Associated Order(s): IP CONSULT TO NEUROLOGY NEUROLOGY [...] was admitted to the Emergency Department at [facility] on 05-10-25. She presented with altered mental [...] confusion and a recent fall at the intermediate. She expresses a strong desire to be [...] Year, Day, Place, City, and President of [facility]: Impaired CEREBELLAR FUNCTION No tremor. No extraneous [...] Alfaro on May 12 during Neurology Rounds. LEAD SPRINKLER During this comprehensive evaluation, I dedicated a significant amount of time, 75 minutes, to thoroughly reviewing all current medical records and relevant diagnostic tests. This thoroughness was essential for me to engage in a efew-ij-ljmm interview and conduct a focused neurological examination, [...] s approval, I created this report using [employer] voice recognition system, SuzyFunsherpabraden, and Reyna Co-investment accountant. I conducted an accurate and prompt anatomic pathology assistant and a thorough editorial review. Acknowledging that [...] and cooperation. Mikala Camargo MD Comprehensive Neurologist [phone] documented in this encounter [facility] 2025 History of Presen t illness Narrative Images from the original note were not included. OCCUPATIONAL THERAPY [facility] Treatment Note Name/MRN: Maday Alfaro ([id number]) Date of : 1940 Age: 85 y.o. Room[facility]Bed: [facility] A Visit #: 3 out of 5 Discharge Recommendation: Correction Facility Equipment Needed: (at next level of [...] original note were not included. PHYSICAL THERAPY [facility] Treatment Note Name/MRN: Maday Alfaro ([id number]) Date of : 1940 Age: 85 y.o. Room/Bed: B2-251/B2-251 A Visit #: 2 out of 5 visits Discharge Recommendation: Correction Facility Equipment Needed: No Assessment Pt demonstrates [...] original note were not included. OCCUPATIONAL THERAPY [facility] Treatment Note Name/MRN: Maday Alfaro ([id number]) Date of : 1940 Age: 84 y.o. Room/Bed: B2251/[facility]251 A Visit #: 2 out of 5 Discharge Recommendation: Correction Facility Equipment Needed: (at next level of [...] 3:22 PM EDT Hospitalist Progress Note 05/15/2025 [phone]: Please page me ([phone]) for patient care issues. [phone]: Please page [facility] Hospitalist for any issues. Subjective: Admit Date: 05/10/2025 PCP: CHRISTIAN HARRISON NP Room#: B2-251/B2-251 A Interval History: No overnight issues. She continues to do good with no new complaints. Denies chest pain or sob. No abdominal pain, nausea, vomiting. No fevers or chills. Her daughter is at bedside today. Adult diet Regular @[id number]@ 24HR INTAKE/OUTPUT: Intake/Output Summary (Last 24 hours) [...] PT/OT recommending SNF. Referrals being sent per [facility]. She is medically cleared to go back to [facility] once approved. - check daily labs including daily Dilantin level. - spoke with daughter at bedside again today. She has been updated with plan Extended Emergency Contact Information Primary Emergency Contact: Ed Villela Mobile Relation: Grandchild Briquette Maker needed? No Secondary Emergency Contact: Jono Fragoso Mobile Relation: Son Heron Glover MD Division of Hospitalist Medicine Inpatient Medical Services/[facility]: Epic chat [1] Past Medical History: [...] original note were not included. OCCUPATIONAL THERAPY [facility] Treatment Note Name/MRN: Maday Alfaro ([id number]) Date of : 1940 Age: 84 y.o. Room/Bed: B2-251/B2-251 A Visit #: 1 out of 5 Discharge Recommendation: Correction Facility Equipment Needed: (at next level of [...] original note were not included. PHYSICAL THERAPY [facility] Treatment Note Name/MRN: Maday Alfaro ([id number]) Date of : 1940 Age: 84 y.o. Room/Bed: B2251/B2251 A Visit #: 1 out of 5 Discharge Recommendation: Correction Facility Equipment Needed: No Assessment Patient with [...] 1:51 PM EDT Hospitalist Progress Note 05/14/2025 [phone]: Please page me ([phone]) for patient care issues. [phone]: Please page [facility] Hospitalist for any issues. Subjective: Admit Date: 05/10/2025 PCP: CHRISTIAN HARRISON NP Room#: B2-251/B2-251 A Interval History: No overnight issues. Denies chest pain or sob. No abdominal pain, nausea, vomiting. No fevers or chills. States she is doing good. Her son is at bedside today. Adult diet Regular @[id number]@ 24HR INTAKE/OUTPUT: Intake/Output Summary (Last 24 hours) [...] left hip fracture - PT and OT. [place] was removed in ED # Delirium - [...] Emergency Contact: Ed Villela Mobile Relation: Grandchild Briquette Maker needed? No Secondary Emergency Contact: Jono Fragoso Mobile Relation: Son Heron Lizbeth Glover MD Division of Hospitalist Medicine Inpatient Medical Services/[facility]: Epic chat [1] Past Medical History: [...] Assessment Type and Reason for Visit: Initial (Elementary School Counselor referral) Nutrition Recommendations/Plan: Continue diet as ordered Adult diet Regular. 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 Pt was alert and able to answer questions on visit Estimated Daily Nutrient Needs: Energy Requirements Based On: Kcal/kg Weight Used for Energy Requirements: Admission Weight for Energy Calculation (kg): 56 kg Total Energy Requirements (kcals/day): 7115-1575 (25-30) Weight Used for Protein Requirements: Admission [...] per records) % Weight Change (Calculated): 6.5 [place] Body Weight (lbs) (Calculated): 130 lbs [place] Body Weight (Kg) (Calculated): 59 kg % [place] Body Weight (Calculated): 101.5 % BMI (kg/m2) [...] Oral Nutrition Supplement Adriana Ma RD Contact: *[phone] or via Secure Chat Hospitalist Progress Note 05/13/20256996873-1032: Please page me ([phone]) for patient care issues. [phone]: Please page [facility] Hospitalist for any issues. Subjective: Admit Date: 05/10/2025 PCP: CHRISTIAN HARRISON NP Room#: B2-251/B2-[facility] A Interval History: No overnight issues. Denies chest pain or sob. No abdominal pain, nausea, vomiting. No fevers or chills. States she feels pretty good today. Her daughter is at bedside Adult diet Regular @[id number]@ 24HR INTAKE/OUTPUT: Intake/Output Summary (Last 24 hours) [...] left hip fracture - PT and OT. [place] was removed in ED # Delirium - [...] Primary Emergency Contact: ManoharEd Mobile Relation: Grandchild Briquette Maker needed? No Secondary Emergency Contact: Jono Fragoso Mobile Relation: Son Heron Glover MD Division of Hospitalist Medicine Inpatient Medical Services/[facility]: Epic chat [1] Past Medical History: [...] with Dr. Meng doing well Admitted to [facility] for non-ortho related symptoms. Scheduled for 2 week post-op visit so will see her while she is here as she cannot make appt. Plan: Continue PT/OT - WBAT Pain control DVT Prophylaxis - currently lovenox per medicine Mount [place] removed in ED Dc- per primary-> SNF [...] original note were not included. PHYSICAL THERAPY [facility] Initial Evaluation Name/MRN: Maday Alfaro ([id number]) Evaluation Date: 05/12/2025 Date of : 1940 Admission Date: 05/10/2025 1:45 PM Age: 84 y.o. Room/Bed: B2251/[facility]251 A Discharge Recommendation: Correction Facility Equipment Needed: No Assessment IMPRESSION: Patient was admitted on 05/10/25 with stroke-like symptoms, recent hip fx, and fall at SNF. Pt presents with decreased functional mobility, ADL status, strength, safety awareness, endurance, balance, ROM, high level iADLs, cognition, and posture. Pt is in 5/10 pain in B knees with activity and is AxOx3. Pt underwent L hip nailing on 04/21/25 at [facility] and is WBAT. Upon eval, pt vitals [...] intertrochanteric fracture of hip, left, initial encounter ([facility]) 04/21/2025 Closed displaced intertrochanteric fracture of left femur ([facility]) 04/21/2025 Dilation of renal pelvis 01/04/2019 Chest [...] of Care supervision is transferred to a [facility] Therapy Services Physical Therapist. Goals and/or treatment plan was established in collaboration with patient/family/other representatives. [1] Past Medical History: Diagnosis Date Hypertension Seizures (HCC) [2] Past Surgical History: Procedure Laterality Date EYE SURGERY HYSTERECTOMY Cosigned by Tonny Brian PT at 05/12/2025 4:15 PM EDT Images from the original note were not included. OCCUPATIONAL THERAPY [facility] Initial Evaluation Name/MRN: Maday Alfaro ([id number]) Evaluation Date: 05/12/2025 Date of : 1940 Admission Date: 05/10/2025 1:45 PM Age: 84 y.o. Room/Bed: B2-251/B2-251 A Discharge Recommendation: Equipment Needed: (at next level of care) Assessment IMPRESSION: Pt admitted to [facility] on 05/10 for confusion and fall [...] of Care supervision is transferred to a [facility] Therapy Services Occupational Therapist. Goals and/or treatment [...] to bleeding risk. She was discharged to [facility], was having some difficulties with [...] Recent left hip fracture PT and OT [place] removed in ED Delirium - no hx [...] Emergency Contact: Ed Villela Mobile Relation: Grandchild Briquette Maker needed? No Secondary Emergency Contact: Jono Fragoso Mobile Relation: Son Nemo Bunn MD Division of Hospitalist Medicine [facility] [1] Past Medical History: Diagnosis Date Hypertension [...] original note were not included. OCCUPATIONAL THERAPY [facility]'s Name/MRN: Maday Alfaro ([id number]) Date: 05/11/2025 Evaluation is being deferred at present because pt with pending imaging . Elyse Montes OT Images from the original note were not included. PHYSICAL THERAPY [facility] Name/MRN: Maday Alfaro ([id number]) Date: 05/11/2025 Evaluation is being deferred at present because pt with pending imaging . Leif Biggs PT Hospitalist Progress Note 05/11/2025 Subjective: Admit Date: 05/10/2025 PCP: CHRISTIAN HARRIOSN NP Room#: B2-251/B2-251 A BRIEF HOSPITAL COURSE: [...] to bleeding risk. She was discharged to [facility], was having some difficulties with [...] Emergency Contact: Ed Villela Mobile Relation: Grandchild Briquette Maker needed? No Secondary Emergency Contact: Jono Fragoso Mobile Relation: Phill Chester Areli Bunn MD Division of Hospitalist Medicine [facility] [1] Past Medical History: Diagnosis Date [...] Completed speech orders. documented in this encounter [facility] 2025 Nurse Note Message sent to Dr. Heron Glover regarding intermediate request to send prescription with patient. Report called to [facility]. [facility] 2025 Nurse Note Message sent to Dr. Heron Glover regarding intermediate request to send prescription with patient. Report called to [facility]. Notified Willow Darby CM and Jc Blanco SW regarding patients daughter in laws request for an update on when she will go to intermediate. Wound Care consulted for Pressure Injury Prevention. Pt's Galileo score= 16 on 05/14 Pt's pressure points assessed. Pt's Heels, Elbows, Occiput and ears all intact. [place] and blanchable tissues noted to bilateral heels. Pt currently followed by [facility] group for wound to sacrum. For sacrum wound assessment and treatment plan, please see Wound/Ostomy [facility] progress notes. Female external catheter in place. [...] wrist were swollen. documented in this encounter [facility] 2025 Note [facility] 2025 Hospital course Narrative Discharge Summary [...] to bleeding risk. She was discharged to [facility], was having some difficulties with [...] her diagnosis/management during her stay here at [facility]: Acute, acute on chronic, unstable/uncontrolled chronic [...] 81 MG chewable tablet ergocalciferol 1.25 MG (56650 UT) capsule Commonly known as: Vitamin D2 [...] Complexity: follow up within 7-14 calendar days (82889) [] Severe Complexity: follow up within 7 calendar days (04692) FOLLOW UP TESTING, PENDING RESULTS OR REFERRALS [...] 2025, 10:41 AM documented in this encounter [facility] 2025 Progress note Formatting of t [...] insurance card with questions or concerns. : Correction Facility Facility: [facility], Level of Care: SNF, and Transport: 1400 Messaged attending to notify of request for P2P from insurance, deadline today by 1345 EST: Option 1. Provide name, , and Ref#:[id number]. Per attending, when he attempted to call and complete P2P he was told auth already approved. Reached out to [facility] to confirm. Messaged facility via [employer] to confirm ability to accept today. This CM added into CarePort to receive notifications on this referral. Received response back from facility - able to accept back. Her original room is waiting for her. Received confirmation from [facility] that auth is approved. Requested cot transport for 1400 via [employer]. [facility] claimed cot transport for requested 1400 time. Notified bedside RN of transport time and provided number to call report. Notified facility of transport time and sent AVS/MAR via CarePort. [facility] 2025 Miscellaneous Notes Case Management Discharge [...] insurance card with questions or concerns. : Correction Facility Facility: [facility], Level of Care: SNF, and Transport: 1400 Messaged attending to notify of request for P2P from insurance, deadline today by 1345 EST: Option 1. Provide name, , and Ref#:[id number]. Per attending, when he attempted to call and complete P2P he was told auth already approved. Reached out to [facility] to confirm. Messaged facility via [employer] to confirm ability to accept today. This CM added into CarePort to receive notifications on this referral. Received response back from facility - able to accept back. Her original room is waiting for her. Received confirmation from [facility] that auth is approved. Requested cot transport for 1400 via [employer]. [facility] claimed cot transport for requested 1400 time. Notified bedside RN of transport time and provided number to call report. Notified facility of transport time and sent AVS/MAR via CarePort. Insurance Authorization: Needs [id number] Received notification requesting a hipn-wn-zxlt be completed by Provider. Option 1 Deadline: TODAY BY 1:45PM Caller to Provide Patient identifiers and Ref#:[id number] TCC NOTIFIED Care Management Progress Note Short Medical why still here: Medically stable for dc. Dilantin restarted. Updated PT/OT notes yesterday. Auth pending for return to [facility]. Met with patient and daughter at [facility] to update them that auth still pending. Daughter stated that family was interested in getting medical records from hospital stay. Directed daughter that Medical Records would have to be called post dc as chart is often not complete at time of dc. Planned Discharge Disposition: Correction Facility Barriers/Today we still Wait:insurance auth Length of Stay (Days): 5 GMLOS: 2.5 Care Management Progress Note Short Medical why still here: elevated Dilantin levels, IVF Planned Discharge Disposition: Correction Facility Plan is to return to [facility]. Messaged PT/OT to see today to start auth for SNF. Barriers/Today we still Wait: Administering IV medications, Test results (comment) Length of Stay (Days): 4 GMLOS: 2.5 Patient Choice Patient Name: MADAY ALFARO Date of : 1940 All Providers Sent Referral Name: [facility] Phone: [phone] Address: [address] [place], [place] [address] Care Management Progress Note Short Medical why still here: SNF placement Planned Discharge Disposition: Correction Facility Spoke with Urmila-denise Ed dheeraj only beds available at [facility]. She and family have decided for pt to return to [facility] - facility updated. Barriers/Today we still Wait: Administering IV medications, Clinical stability, Sales Officer recommendations (comment), Patient/caregiver facility choice Length of Stay (Days): 3 GMLOS: 2.5 Referral placed to [facility] via Careport per TCC request. Await review and response regarding ability to accept. TCC notified. Received call back from Grand Daughter Ed. Confirms her and her father discussed disposition planning. They request referral to [facility]. Ed also wishes to leave door open to returning to [facility] at this time; just wants to see if [facility] has a bed first. She is aware will need to finalize FOC tomorrow once response received from [facility]. Once bed confirmed will need to obtain approval from insurance as well. She demonstrates understanding. LABORATORY TECHNICAL SPECIALIST tasked to begin referral. Awaiting bed availability. Referral placed to return back to [facility] via Careport per TCC request. Await review and response regarding ability to accept. TCC notified. Care Managment Initial Assessment Date: 05/12/2025 Patient Name: Maday Alfaro : 1940 Patient Information Source of Information: Patient [place] Name/Contact Information: Patient Contacts (10/14) Ed Villela Grandcatracho Emergency Contact [phone] Health Care Agent Notify on admission Cognition/Language: Confused at baseline Permission given to speak with patient screening representative/caregiver as indicated: Confirmation of Payer with patient/family: Yes Payer Name: [employer] Medicare Advantage [place]: No Confirmation of Primary Care Physician: Confirmed [...] Levels: Facility: Nursing Facility Skilled Facility Name: [facility] Plan to Return: Comments (TBD, family [...] Additional Information: Chart reviewed. Patient admitted to [facility] from [facility] with Altered Mental status 2/2 Dilantin unintentional overdose; staff gave in correct amount at intermediate. Fell at intermediate. MRI negative for stroke. PT/OT following. Spoke to Grand daughter over the phone. Unable to reach son Jono. Ed answered questions. Confirms she is Rafa's daughter. She explained patient is normally from home. But, has been staying at [facility] since 04/28 for SNF. Recent discharge from [facility]. She states she wishes to discuss final discharge disposition with her father. Emailed new SNF listing to [email or web address]. DC plan: TBD; doubtful will return to [facility], Awaiting call back from Ed to determine FOC. Explained to her will need to obtain insurance authorization prior to discharge from hospital -anticipate 05/13 if medically ready and facility secured. Anticipating return call from Ed today. LABORATORY TECHNICAL SPECIALIST tasked to begin return referral to [facility]. Migdalia Cooper RN documented in this encounter [facility] 2025 Progress note Formatting of t his note might be different from the original. Insurance Authorization: Needs [id number] Received notification requesting a bdwc-vv-zuzl be completed by Provider. Option 1 Deadline: TODAY BY 1:45PM Caller to Provide Patient identifiers and Ref#:[id number] TCC NOTIFIED [facility] 05-15-2025 Progress note Formatting of t his note might be different from the original. Care Management Progress Note Short Medical why still here: Medically stable for dc. Dilantin restarted. Updated PT/OT notes yesterday. Auth pending for return to [facility]. Met with patient and daughter at [facility] to update them that auth still pending. Daughter stated that family was interested in getting medical records from hospital stay. Directed daughter that Medical Records would have to be called post dc as chart is often not complete at time of dc. Planned Discharge Disposition: Correction Facility Barriers/Today we still Wait:insurance auth Length of Stay (Days): 5 GMLOS: 2.5 T [facility] 05-15-2025 Nurse Note Notified Willow Darby CM and Jc AUGUST regarding patients daughter in laws request for an update on when she will go to intermediate. [facility] 05-15-2025 Nurse Note Wound Care consulted for Pressure Injury Prevention. Pt's Galileo score= 16 on 05/14 Pt's pressure points assessed. Pt's Heels, Elbows, Occiput and ears all intact. [place] and blanchable tissues noted to bilateral heels. Pt currently followed by [facility] group for wound to sacrum. For sacrum wound assessment and treatment plan, please see Wound/Ostomy [employer] progress notes. Female external catheter in place. [...] any questions or concerns. Nancy Reddy RN [facility] 05-15-[address] Heron Glover that during morning round noticed patients left hand and wrist were swollen. T [facility] 05-14-2025 Progress note Formatting of t his note might be different from the original. Care Management Progress Note Short Medical why still here: elevated Dilantin levels, IVF Planned Discharge Disposition: Correction Facility Plan is to return to [facility]. Messaged PT/OT to see today to start auth for SNF. Barriers/Today we still Wait: Administering IV medications, Test results (comment) Length of Stay (Days): 4 GMLOS: 2.5 T [facility] 05-13-2025 Progress note Formatting of t his note might be different from the original. Patient Choice Patient Name: MADAY ALFARO Date of : 1940 All Providers Sent [facility]erral [facility] Phone: [phone] Address: [address] [place] [address] T [facility] 05-13-2025 Progress note Formatting of t his note might be different from the original. Care Management Progress Note Short Medical why still here: SNF placement Planned Discharge Disposition: Correction Facility Spoke with Shona esqueda only beds available at [facility]Dementia [facility]. She and family have decided for pt to return to [facility] - facility updated. Barriers/Today we still Wait: Administering IV medications, Clinical stability, Sales Officer recommendations (comment), Patient/caregiver facility choice Length of Stay (Days): 3 GMLOS: 2.5 [facility] 05-13-2025 Telephone encounter Note error [facility] 05-13-2025 Miscellaneous Notes error documented in this encounter [facility] 05-12-2025 Note [facility] Procedure note Associated Ord er(s): EEG Images from the original note were not included. EEG/VIDEO REPORT DEMOGRAPHICS PATIENT: MADAY ALFARO MEDICAL RECORD: [id number] DATE OF SERVICE: 2024 DATE OF : [birth year] AGE: 84 GENDER: Female HANDEDNESS: RIGHT DICTATING PHYSICIAN: Dr. Camargo REFERRING PHYSICIAN: Dr. Camargo EEG PARAMETER EEG TEST ?: [id number] EEG TEST TYPE: Inpatient routine 21-MINUTE EEG RECORDING. (8:26 AM-8:47 AM) SELECT BANKER: Neo Mcadams 44 Channel EEG for data [...] seen on video. MIKALA Camargo MD NEUROLOGIST [facility] 05-12-2025 Procedure note Associated Ord er(s): EEG Images from the original note were not included. EEG/VIDEO REPORT DEMOGRAPHICS PATIENT: MADAY ALFARO MEDICAL RECORD: [id number] DATE OF SERVICE: 2024 DATE OF : [birth year] AGE: 84 GENDER: Female HANDEDNESS: RIGHT DICTATING PHYSICIAN: Dr. Camargo REFERRING PHYSICIAN: Dr. Camargo EEG PARAMETER EEG TEST ?: [id number] EEG TEST TYPE: Inpatient routine 21-MINUTE EEG RECORDING. (8:26 AM-8:47 AM) SELECT BANKER: Neo Mcadams 44 Channel EEG for data [...] Camargo MD NEUROLOGIST documented in this encounter [facility] 05-12-2025 Consult note Formatting of th [...] was admitted to the Emergency Department at [facility] on 05-10-25. She presented with altered mental [...] confusion and a recent fall at the intermediate. She expresses a strong desire to be [...] Year, Day, Place, City, and President of [facility]: Impaired CEREBELLAR FUNCTION No tremor. No extraneous [...] Alfaro on MondayMay 13 during Neurology Rounds. LEAD SPRINKLER During this comprehensive evaluation, I dedicated a significant amount of time, 55 minutes, to thoroughly reviewing all current medical records and relevant diagnostic tests. This thoroughness was essential for me to engage in a wukb-al-upjq interview and conduct a focused neurological examination, [...] s approval, I created this report using [employer] voice recognition system, Nicholas Massey, and Reyna Co-investment accountant. I conducted an accurate and prompt anatomic pathology assistant and a thorough editorial review. Acknowledging that [...] and cooperation. Mikala Camargo MD Comprehensive Neurologist [phone] [facility] 05-12-2025 Note Referral [facility] per TCC request. Await review and response regarding ability to accept. TCC notified. [facility] 05-12-2025 Progress note Formatting of t his note might be different from the original. Referral placed to [facility] per TCC request. Await review and response regarding ability to accept. TCC notified. [facility] 05-12-2025 Progress note Formatting of t his note might be different from the original. Received call back from Grand Daughter Ed. Confirms her and her father discussed disposition planning. They request referral to [facility]. Ed also wishes to leave door open to returning to [facility] at this time; just wants to see if [facility] has a bed first. She is aware will need to finalize FOC tomorrow once response received from [facility]. Once bed confirmed will need to obtain approval from insurance as well. She demonstrates understanding. LABORATORY TECHNICAL SPECIALIST tasked to begin referral. Awaiting bed availability. [facility] 05-12-2025 Note Referral placed to r eturn back to [facility] per TCC request. Await review and response regarding ability to accept. TCC notified. [facility] 05-12-2025 Progress note Formatting of t his note might be different from the original. Referral placed to return back to [facility] per TCC request. Await review and response regarding ability to accept. TCC notified. [facility] 05-12-2025 Progress note Formatting of t his note might be different from the original. Care Managment Initial Assessment Date: 05/12/2025 Patient Name: Maday Alfaro : 1940 Patient Information Source of Information: Patient Monument Mason Name/Contact Information: Patient Contacts (10/14) Ed June Emergency Contact [phone] Health Care Agent Notify on admission Cognition/Language: Confused at baseline Permission given to speak with patient screening representative/caregiver as indicated: Confirmation of Payer with [...] Levels: Facility: Nursing Facility Skilled Facility Name: [facility] Plan to Return: Comments (TBD, family [...] Additional Information: Chart reviewed. Patient admitted to [facility] from [facility] with Altered Mental status 2/ Dilantin unintentional overdose; staff gave in correct amount at intermediate. Fell at intermediate. MRI negative for stroke. PT/OT following. Spoke to Grand daughter over the phone. Unable to reach son Jono. Ed answered questions. Confirms she is Rafa's daughter. She explained patient is normally from home. But, has been staying at [facility] since 04/28 for SNF. Recent discharge from [facility]. She states she wishes to discuss final discharge disposition with her father. Emailed new SNF listing to [email or web address]. DC plan: TBD; doubtful will return to [facility], Awaiting call back from Ed to determine FOC. Explained to her will need to obtain insurance authorization prior to discharge from hospital -anticipate 05/13 if medically ready and facility secured. Anticipating return call from Ed today. LABORATORY TECHNICAL SPECIALIST tasked to begin return referral to [facility]. Migdalia Cooper RN [facility] 05-12-2025 Hospital Discharg e instructions Lupe [...] and the need for follow-up with a physician/BROADCAST MAINTENANCE ENGINEER/PA after discharge. Lupe Rojo RN on 05/12/25 [...] and the need for follow-up with a physician/BROADCAST MAINTENANCE ENGINEER/PA after discharge. Lupe Rojo RN on 05/12/25 [...] Emergency Contact: Ed Villela Mobile Relation: Grandchild Briquette Maker needed? No Secondary Emergency Contact: Jono Fragoso [...] Closed displaced intertrochanteric fracture of left femur ([facility]) Isolation/Infection: No active isolations No active infections [...] Minimal assistance Toileting Minimal assistance Feeding Independent Process Safety Management Engineer Total assistance Med Delivery no Wound Care [...] Continence: Bowel yes Bladder: no Urinary Catheter: {[place] Urinary Catheter:19001} Colostomy/Ileostomy/Ileal Conduit: None Date of Last BM: [...] Date: 05/10/25 Discharging to Facility/ Agency Name: [facility] Address: [address] [place] [address] Production Material Handler/Journalism Internship signature: ICIAN SECTION Name: Maday Alfaro Prognosis: good Condition at Discharge: stable Rehab Potential (if transferring to Rehab): good Recommended Labs or Other Treatments After Discharge: The individual is being admitted to a nursing facility directly from an [facility] or a unit of a [facility] that is not operated by or licensed by [facility] under section 5119.14 or 5160-3-15.1 5 The individual requires the level of services provided by a nursing facility for the condition for which he or she was treated in the hospital and, Physician Certification: I certify the above information and transfer of Maday Alfaro is necessary for the continuing treatment of the diagnosis listed and that she requires fpc facility for less than 30 days. Update Admission H&P: No change in H&P PHYSICIAN SIGNATURE: The following attachments cannot be sent through Care Everywhere.Smoking: Not Just Harmful to Your Lungs and Heart (Chinese)documented in this encounter [facility] 05-12-2025 Note Patient declined smo vazquez cessation counseling. Accepting of handout with contact information for future reference. [facility] 05-11-2025 Note OCCUPATIONAL THERAPY [facility]'s Name/MRN: Maday Alfaro ([id number]) Date: 05/11/2025 Evaluation is being deferred at present because pt with pending imaging . Elyse Montes OT [facility] 05-11-2025 Consult note Associated Order (s): [...] was admitted to the Emergency Department at [facility] on 05-10-25. She presented with altered mental [...] confusion and a recent fall at the intermediate. She expresses a strong desire to be [...] Year, Day, Place, City, and President of [facility]: Impaired CEREBELLAR FUNCTION No tremor. No extraneous [...] Alfaro on May 12 during Neurology Rounds. LEAD SPRINKLER During this comprehensive evaluation, I dedicated a significant amount of time, 75 minutes, to thoroughly reviewing all current medical records and relevant diagnostic tests. This thoroughness was essential for me to engage in a hvjo-gr-xqkp interview and conduct a focused neurological examination, [...] s approval, I created this report using [employer] voice recognition system, Tengah, and Reyna Co-investment accountant. I conducted an accurate and prompt anatomic pathology assistant and a thorough editorial review. Acknowledging that [...] and cooperation. Mikala Camargo MD Comprehensive Neurologist [phone] [facility] 05-11-2025 Note PHYSICAL THERAPY [facility] Name/MRN: Maday Alfaro ([id number]) Date: 05/11/2025 Evaluation is being deferred at present because pt with pending imaging . Leif Biggs, PT [facility] 05-11-2025 Note Speech-Lead Electrician ology Patient passed the Nursing Swallowing Screening. As per stroke policy, no formal dysphagia evaluation is required. Completed speech orders. [facility] 05-11-2025 Note Sinus rhythm Left anterior fascicular block Abnormal R-wave progression, early transition Electronically Signed On 05-11-2025 01:13:38 EDT by Derick Reis [facility] 05-11-2025 Note Sinus rhythm Left anterior fascicular block Abnormal R-wave progression, early transition Electronically Signed On 05-11-2025 01:13:38 EDT by Derick Reis [facility] 05-11-2025 Note IMPRESSION: Sinus rhythm Left anterior fascicular block Abnormal R-wave progression, early transition Electronically Signed On 05-11-2025 01:13:38 EDT by [facility] 05-10-2025 Emergency department Note [facility] called back on Ashley RN on phone confirmed 200 mg of Dilantin 2x a day [facility] 05-10-2025 Emergency department Note [facility] called back on Ashley RN on phone confirmed 200 mg of Dilantin 2x a day [place] applied. Pt tolerated without difficulty. Last known well per family a couple days ago. Dr Castaneda at bedside. Dr Painter at bedside. Introduced myself as pt liaison and explained role and provided support to family , pt arrived via EMS. Emergency Department Encounter [facility] CARDIAC PROGRESSIVE CARE UNIT PCU 2E Patient: Maday Alfaor : 1940 Date of Evaluation: 05/10/2025 ED [...] DO 05/11/25 1652 Emergency Department Encounter Location: [facility] ED Patient: Maday Alfaro : 1940 [...] the evaluation of an unwitnessed fall at [facility]. Son reports confusion for the past [...] mL (250 mL IntraVENous New Bag 05/10/25 0296) I have reviewed and interpreted all of [...] 407 ms QTC Interval 418 ms P Hagaman 0 degrees QRS Hagaman -63 degrees T Wave Hagaman 59 degrees [place] Interval 181 ms CBC auto differential Collection [...] presents to the emergency department from a fpc facility after a fall this morning and [...] 12 hours. ERGOCALCIFEROL (VITAMIN D2) 1.25 MG (73354 UT) CAPSULE Take 1 capsule (1.25 mg) [...] Family History[3] SOCIAL HISTORY Social History[4] SCREENINGS [place] Coma Scale Best Eye Response: Spontaneous Best [...] Motor - Left Leg: No Effort Against Kathleen 6B. Motor - Right Leg: Drift 7. Limb Ataxia: Present in One Limb 8. Sensory Loss: Normal 9. Best Language: No Aphasia 10. Dysarthria: Xsfl-pj-Pvddfefy Dysarthria 11. Extinction and Inattention: No Abnormality [...] remarkable for wrong month and age, abnormal wjwxvn-nk-wopi testing, left leg with no effort against [...] 200 (*) Narrative: Performed by: Fabienne Pickett, [address] [place] [id number] CLIA ID: [id number] HIGH SENSITIVITY TROPONIN, SERIAL BASELINE - Normal Troponin HS Serial Baseline <3 PROTIME & APTT - Normal PROTHROMBIN TIME 10.9 INR 1.0 APTT 29.8 LACTIC ACID WITH REFLEX - Normal LACTIC ACID 1.6 COMPREHENSIVE METABOLIC PANEL WITH MG REFLEX Narrative: The following orders were created for panel order Comprehensive Metabolic Panel with Mg Reflex. Procedure Abnormality Status --------- ------ Comprehensive metabolic ...[[id number]] Abnormal Final result Please view results for these tests on the individual orders. COMPLETE URINALYSIS WITH REFLEX TO CULTURE HIGH SENSITIVITY TROPONIN, SERIAL, SECOND TEST POCT GLUCOSE METER All other labs were within normal range or not returned as of this dictation. [facility] EMERGENCY DEPARTMENT COURSE ED Course as of 05/10/25 165 Sat May 10, 2025 1521 Troponin HS Serial Baseline: <3 [ML] 1521 LACTIC ACID: 1.6 Generalized seizure unlikely [ML] 1612 ECG 12 lead if not already done by Squad [facility] independent interpretation: Normal sinus rhythm, no axis deviation. Normal KS and QT intervals. Normal QRS duration. No ST elevation or depression. [ML] ED Course User Index [ML] Raheel Painter MD Diagnoses as of 05/10/251654 Stroke-like symptoms Altered mental status, unspecified altered mental status type Declining functional status [facility] elements: The patient presented with chief complaint of confusion, fall. The differential diagnosis associated with this patient's presentation includes CVA, skull fracture, cervical spine fracture, sepsis. Our workup consisted of ordering/reviewing: CT head, chest x-ray, x-ray of the left hand, EKG, CBC, PT/INR and PTT, lactate, troponin, CMP with magnesium reflex, urinalysis with reflex to culture, straight catheterization, unmyf-km-qpbg glucose, normal saline bolus and infusion. Diagnostic tests considered but not performed: CT of the neck was not performed because patient has no tenderness, no distracting injuries and was able to note when other sites body were tender. CTA was not performed because patient is outside the window for intervention and it would not policy change clerks supervisor in the ED. To aid in management, [...] Year: No Raheel Painter MD Resident 05/10/25 3944 Cosigned by Blayne Castaneda DO at 05/11/2025 [...] she passed out. documented in this encounter [facility] 05-10-2025 Emergency department Note Purwick applied. Pt tolerated without difficulty. [facility] 05-10-2025 History and physical note Attending [...] to bleeding risk. She was discharged to [facility], was having some difficulties with [...] Recent left hip fracture PT and OT [place] removed in ED Delirium - no hx [...] Emergency Contact: Ed Villela Mobile Relation: Grandchild Briquette Maker needed? No Secondary Emergency Contact: Jono Fragoso Mobile Relation: Son [employer] Maday Alfaro : 1940 Primary Care Physician: CHRISTIAN HARRISON NP The patient and/or family/surrogate voluntarily agreed to participate in ACP services. Patient s cognitive capacity: confused Code Status: [X] [FULL CODE - Continue all advanced life support: CPR,intubation,invasive procedures] [_] [DNR-CCA - DO NOT do CPR, intubation] [_] [DNR-CLINICAL COORDINATOR - Comfort care only] [_] DNR form [...] Nemo Bunn MD Division of Hospitalist Medicine [facility] [1] Past Medical History: Diagnosis Date Hypertension Seizures (HCC) [2] Past Surgical History: Procedure Laterality Date EYE SURGERY HYSTERECTOMY [3] Family History Problem Relation Name Age of Onset Stroke Mother Heart disease Father Heart attack Father Coronary artery disease Father [4] Current Facility-Administered Medications: sodium chloride 0.9 % infusion, 50 mL/hr, IntraVENous, Continuous, Raheel Paitner MD, Last Rate: 50 mL/hr at 05/10/25 [...] , Rfl: ergocalciferol (Vitamin D2) 1.25 MG (17535 UT) capsule, Take 1 capsule (1.25 mg) [...] And Vomiting Penicillin G Rash Simvastatin Rash [facility] 05-10-2025 Note [facility] 05-10-2025 History and physical note [...] to bleeding risk. She was discharged to [facility], was having some difficulties with [...] inability to lift of bed without assistance, [place] removed from three hip surgical site lesions. [...] Emergency Contact: Ed Villela Mobile Relation: Grandchild Briquette Maker needed? No Secondary Emergency Contact: Jono Fragoso Mobile Relation: Son [employer] Maday Alfaro : 1940 Primary Care Physician: CHRISTIAN HARRISON NP The patient and/or family/surrogate voluntarily agreed to participate in ACP services. Patient s cognitive capacity: confused Code Status: [X] [FULL CODE - Continue all advanced life support: CPR,intubation,invasive procedures] [_] [DNR-CCA - DO NOT do CPR, intubation] [_] [DNR-CLINICAL COORDINATOR - Comfort care only] [_] DNR form [...] Nemo Bunn MD Division of Hospitalist Medicine [facility] [1] Past Medical History: Diagnosis Date [...] , Rfl: ergocalciferol (Vitamin D2) 1.25 MG (57190 UT) capsule, Take 1 capsule (1.25 mg) [...] Rash Simvastatin Rash documented in this encounter [facility] 05-10-2025 Emergency department Note Last known well per family a couple days ago. [facility] 05-10-[address] Castaneda at bedside. [facility] 05-10-[address] Painter at bedside. [facility] 05-10-2025 Emergency department Note Introduced myself as pt liaison and explained role and provided support to family , pt arrived via EMS. [facility] 05-10-2025 Emergency department Triage note Pt [...] her head. Pt states she passed out. [facility] 05-10-2025 Physician Emergency department Note Emergency Department Encounter [facility] C[facility]IAC PRO[facility]ESSIVE CARE UNIT PCU 2E [...] [employer] Blayne Castaneda DO 05/11/25 2071 [facility] 05-10-2025 Physician Emergency department Note Emergency Department Encounter Location: [facility] ED Patient: Maday Alfaro : 1940 [...] the evaluation of an unwitnessed fall at [facility]. Son reports confusion for the past [...] 407 ms QTC Interval 418 ms P Hagaman 0 degrees QRS Hagaman -63 degrees T Wave Hagaman 59 degrees [place] Interval 181 ms CBC auto differential Collection [...] Castaneda DO at 05/11/2025 4:54 PM EDT [facility] Phone: 05-10-2025 Physician Emergency department Note EMERGENCY [...] presents to the emergency department from a fpc facility after a fall this morning and [...] 12 hours. ERGOCALCIFEROL (VITAMIN D2) 1.25 MG (25983 UT) CAPSULE Take 1 capsule (1.25 mg) [...] Family History[3] SOCIAL HISTORY Social History[4] SCREENINGS [place] Coma Scale Best Eye Response: Spontaneous Best Verbal Response: Confused Best Motor Response: Localizes pain [place] Coma Scale Score: 13 NIH Stroke Scale [...] Motor - Left Leg: No Effort Against Kathleen 6B. Motor - Right Leg: Drift 7. Limb Ataxia: Present in One Limb 8. Sensory Loss: Normal 9. Best Language: No Aphasia 10. Dysarthria: Ckyg-ww-Zjyfajtc Dysarthria 11. Extinction and Inattention: No Abnormality [...] remarkable for wrong month and age, abnormal yprzcp-ue-kgfl testing, left leg with no effort against [...] 200 (*) Narrative: Performed by: Fabienne Pickett, [address] [place] [address] CLIA ID: [id number] HIGH SENSITIVITY TROPONIN, SERIAL BASELINE - Normal Troponin HS Serial Baseline <3 PROTIME & APTT - Normal PROTHROMBIN TIME 10.9 INR 1.0 APTT 29.8 LACTIC ACID WITH REFLEX - Normal LACTIC ACID 1.6 COMPREHENSIVE METABOLIC PANEL WITH MG REFLEX Narrative: The following orders were created for panel order Comprehensive Metabolic Panel with Mg Reflex. Procedure Abnormality Status --------- ------ Comprehensive metabolic ...[[id number]] Abnormal Final result Please view results for these tests on the individual orders. COMPLETE URINALYSIS WITH REFLEX TO CULTURE HIGH SENSITIVITY TROPONIN, SERIAL, SECOND TEST POCT GLUCOSE METER All other labs were within normal range or not returned as of this dictation. [facility] EMERGENCY DEPARTMENT COURSE ED Course as of 05/10/25 1655 Sat May 10, 2025 1521 Troponin HS Serial Baseline: <3 [ML] 1521 LACTIC ACID: 1.6 Generalized seizure unlikely [ML] 1612 ECG 12 lead if not already done by Squad My independent interpretation: Normal sinus rhythm, no axis deviation. Normal KS and QT intervals. Normal QRS duration. No [...] urinalysis with reflex to culture, straight catheterization, jxpvh-oq-[id number] glucose, normal saline bolus and infusion. Diagnostic tests considered but not performed: CT of the neck was not performed because patient has no tenderness, no distracting injuries and was able to note when other sites body were tender. CTA was not performed because patient is outside the window for intervention and it would not policy change clerks supervisor in the ED. To aid in management, [...] Year: No Raheel Painter MD Resident 05/10/25 8962 Cosigned by Blayne Castaneda DO at 05/11/2025 4:55 PM EDT [facility] [employer] Work Phone: 05-01-2025 Telephone encounter Note Spoke with patient's nurse and gave her Krupa's recommendations to stop Lovenox [facility] 05-01-2025 Miscellaneous Notes Spoke with patient's nurse and gave her Krupa's recommendations to stop Lovenox Contacted by [facility] regarding patient being on Lovenox. Okay to stop Lovenox. documented in this encounter [facility] 05-01-2025 Telephone encounter Note Contacted by SNF regarding patient being on Lovenox. Okay to stop Lovenox. [facility] Work Phone: 04-30-2025 Note [facility] 04-30-2025 Hospital course Narrative Hospitalist [...] Continue aspirin Dilantin sertraline PT OT recommending fpc facility Hospital Course: See discharge diagnoses list [...] skin every 12 hours. ergocalciferol 1.25 MG (26308 UT) capsule Commonly known as: Vitamin D2 [...] MG/0.3ML solution prefilled syringe ergocalciferol 1.25 MG (07248 UT) capsule melatonin 5 MG tablet Recommended Follow-up: Travis Meng MD [address] [place] [address] [address] [facility] [address] Schedule an appointment as soon as possible for a visit in 2 week(s) For post operative follow up Yaneli Cruz, HOISTMAN - PEELED POTATO INSPECTOR [address] [place] [address] Krupa Cid, HOISTMAN - PEELED POTATO INSPECTOR [address] [facility] [address] Go on 05/13/2025 appointment time 10 AM Complexity of Follow up: [] Moderate Complexity: follow up within 7-14 calendar days (68964) [x] Severe Complexity: follow up within 7 calendar days (37587) Follow up Testing, Pending results or Referrals [...] Chaz Smyth DO Division of Hospitalist Medicine [facility] 04/30/2025, 11:08 AM documented in this encounter [facility] 04-30-2025 Progress note Formatting of t his note is different from the original. Case Management Discharge Summary Note Who you talked to: Name: ed segundo PLAN: Correction Facility Facility: [facility] , Level of Care: skilled, and Transport: confirmed 11 am [facility] 04-30-2025 Miscellaneous Notes Case Management Discharge Summary Note Who you talked to: Name: ed segundo PLAN: Correction Facility Facility: [facility] , Level of Care: skilled, and Transport: confirmed 11 am Patient Choice Patient Name: MADAY ALFARO Date of : 1940 All Providers Sent Referral Name: [facility] Phone: [phone] Address: [address] [place] [address] Name: Leonela Corea - CPAN Member Phone: [phone] Address: [address] [place] [address] [facility] Phone: [phone] Address: [address] [place] [address] Name: [facility] Phone: [phone] Address: [address] [place] [address] Confirmed pickup time of 11:00am on 04/30/25 by transport [employer] Micheal Marshall at phone number [phone]. Location of facility drop off is [facility]. Facility notified via CareNifti, TCC notified on secure chat. Care Management Progress Note Short Medical why still here: Auth approved. Good until 05/02. Auth number is [id number] Family agree to plan Arrange transport this am for 10 Discharged and ready , adore done 7000 done Planned Discharge Disposition: Correction Facility to [facility] Barriers/Today we still Wait: Attending completion of discharge workflow- discharged Length of Stay (Days): 9 GMLOS: 4.4 Discharge med list transmitted to [facility] via [employer] per TCC request. 7000 was entered into [employer] for the [facility] Transport requested in Roundtrip as Will Call for [facility] per TCC request. [facility] tasked to submit for humana auth and to do 7000. Transport requested in will call . Referral placed to [facility] via Careport per TCC request. Updated notes sent to [facility]. Family called back [facility] to send clinicals and med rec Will submit auth today if accepted Adore to be done And 7000 Care Management Progress Note Short Medical why still here: discharged however NO FOC . Family has the list aware of the referrals , therapy notes done- adore signed, need choice and then can submit today for auth - Planned Discharge Disposition: Correction Facility Barriers/Today we still Wait: Facility pre-cert, Patient/caregiver facility choice (family HAS NOT GIVEN FOC , cannot submit auth until have it) Length of Stay (Days): 8 GMLOS: 4.4 Referral placed to the following SNF via Careport per TCC request[facility] [place]) Await review and response regarding ability to accept. TCC notified. Care Management Progress Note Short Medical why still here: ready for discharge , pain controlled Planned Discharge Disposition: Correction Facility referrals sent- list at bedside therapy notes done- wait on response adore and auth - NO FOC Will call ed bruce per request of the patient [phone]. Updated and will give FOC Barriers/Today we still Wait: Attending completion of discharge workflow, Patient/caregiver facility choice, Facility pre-cert Length of Stay (Days): 7 GMLOS: 4.4 Care Management Progress Note Short Medical why still here: Awaiting Placement. Planned Discharge Disposition: [facility] Messaged [facility] liaison regarding DC. Per [...] following/consults. Planned Discharge Disposition: Inpatient Rehab Facility ([facility]) Spoke with patient and daughter Ed [phone] regarding discharge planning. Re-introduced myself and role. Discussed rehab hospital vs SNF. Patient and daughter Ed agreeable to [facility]. CM notified [facility] liaison to start facility precert today. CM tasked weekend team to follow. Transport needed at discharge. Addendum: Peer to peer offered with intent to deny. CM secure messaged SICU resident and hospitalist planning to take over care per transfer note, included P2P info to be scheduled by Monday, 04/28 2pm. P2P phone # [phone], Ref # [id number]. Barriers/Today we still Wait: Administering IV medications, Clinical stability, Sales Officer recommendations (comment), Facility pre-cert, Patient/caregiver facility choice [...] following/consults. Planned Discharge Disposition: Inpatient Rehab Facility ([facility] vs SNF in [place]) FOC remains pending with patient. Now on Amio gtt. Cardiology consult placed. Will follow regarding discharge plan and FOC appropriateness. CM updated [facility] liaison via secure message. Barriers/Today we still Wait: Administering IV medications, Clinical stability, Sales Officer recommendations (comment), Symptomatic control pressort gtt - [...] following/consults. Planned Discharge Disposition: Inpatient Rehab Facility ([facility] vs SNF in [place]) Spoke with patient at bedside. Re-introduced myself and role. Discussed discharge planning. Patient agreeable to [facility] or SNF in [place] but has not decided on FOC. Patient requests patient to return tomorrow for choice. CM updated [facility] liaison via secure message. Barriers/Today we still Wait: Administering IV medications, Clinical stability, Sales Officer recommendations (comment), Patient/caregiver facility choice pressor gtt, therapy evals ongoing. Ortho following/consults. Length of Stay (Days): 2 GMLOS: No GMLOS Documented Case management will continue to follow for discharge planning. RH Referral placed to [facility] via [facility] per [facility] request. Awaiting review and response regarding ability [...] reviewing chart and following peripherally. CM tasked LABORATORY TECHNICAL SPECIALIST to send referral via careNifti. CM will follow clinical progress and continue to work on discharge planning. Planned Discharge Disposition: Inpatient Rehab Facility (Rehab Hospital vs SNF) Barriers/Today we still Wait: Administering IV medications, Clinical stability, Sales Officer recommendations (comment) IVABX, pressort gtt, PRBCs, therapy [...] MD, leave MARYAM wrap on overnight. Dr. Ctoo at pt bedside in PACU. [facility] [address] [facility] [address] Dept: [phone] Loc: [phone] Operative Report Patient Name: Maday Alfaro Date of : 1940 Date of Surgery: 04/21/25 Pre-operative diagnosis: Left intertrochanteric femur fracture Post-operative diagnosis: Same Procedure(s): Intertan nailing of left intertrochanteric femur fracture Surgeon: Travis Meng M.D. Electronic Prepress Technician(s): Rigo Baird M.D. and Janneth Centeno M.D. [...] as well as medical complications such as RI, stroke, PE, DVT, and even . Patient [...] was impacted using the depth tower to trial judge the depth of placement. The proximal femur was prepared for the lag and worm screws with excellent compression achieved. Based on the patient's fracture pattern, the preloaded setscrew did not require locking. The distal screw was placed using perfect confederated coos technique. Final films were obtained and saved. [...] at 04/21/25, 3:16 PM Date: 04/21/2025 Location: [facility] OR Name: Maday Harris Dominic, : 1940, Diagnosis Pre-op Diagnosis * Closed displaced intertrochanteric fracture of left femur, initial encounter ([facility]) [S72.142A] Post-op Diagnosis * Closed displaced intertrochanteric fracture of left femur, initial encounter ([facility]) [S72.142A] Procedures ORIF, FRACTURE, FEMUR, INTERTROCHANTERIC, WITH INTRAMEDULLARY IMPLANT INSERTION 24417 - KS TX INTER/KS/SUBTRCHNTRIC FEM FX IMED IMPLTSCREW Surgeons * Travis Meng - Primary Procedure Summary Anesthesia: * No anesthesia type entered * ASA: III Estimated Blood Loss: 100 mL Drains: Urethral Catheter (Active) Implants Type Name Action Serial No. Nail NAIL INTERTAN 10S 10X40 125D L - [id number] Implanted Screw KIT SCR 90MM 4.5MM INTERTAN - [id number] Implanted Screw SCREW BN 5MM 42.5MM TRGN FEM - [id number] Implanted Staff: Energy Infrastructure Engineer: Darline Marquez RN Scrub Person: Wai King [...] weeks -d/c instructions in chart -Please page demolition crane operator ortho resident with questions/concerns documented in this encounter [facility] 04-30-2025 Progress note Formatting of t his note might be different from the original. Patient Choice Patient Name: MADAY ALFARO Date of : 1940 All Providers Sent Referral Name: [facility] Phone: [phone] Address: [address] [place] [address] Name: Leonela Corea - CPAN Member Phone: [phone] Address: [address] [place] [address] Name: May LIN Phone: [phone] Address: [address] [place] [address] Name: [facility] Phone: [phone] Address: [address] [place] [address] [facility] [employer] 04-30-2025 Progress note Formatting of t his note might be different from the original. Confirmed pickup time of 11:00am on 04/30/25 by transport [employer]ah Marshall at phone number [phone]. Location of facility drop off is [facility]. Facility notified via Careport, TCC notified on secure chat. T [employer] 04-30-2025 Progress note Formatting of t his note might be different from the original. Care Management Progress Note Short Medical why still here: Auth approved. Good until 05/02. Auth number is [id number] Family agree to plan Arrange transport this am for 10 Discharged and ready , adore done 7000 done Planned Discharge Disposition: Correction Facility to [facility] Barriers/Today we still Wait: Attending completion of discharge workflow- discharged Length of Stay (Days): 9 GMLOS: 4.4 Y [facility] [employer] 04-29-2025 History of Presen t illness Narrative [...] On: Kcal/kg Weight Used for Energy Requirements: [place] Weight for Energy Calculation (kg): 59 kg Total Energy Requirements (kcals/day): 4342-3025 Weight Used for Protein Requirements: [place] Weight in Kg Used for Protein Requirements: [...] lb) (11/21) % Weight Change (Calculated): -6.8 [place] Body Weight (lbs) (Calculated): 130 lbs [place] Body Weight (Kg) (Calculated): 59 kg % [place] Body Weight (Calculated): 104.6 % BMI (kg/m2) [...] to determine Elizabeth Green RD, LD Contact: [phone] Images from the original note were not included. OCCUPATIONAL THERAPY [facility] Treatment Note Name/MRN: Maday Alfaro ([id number]) Date of : 1940 Age: 84 y.o. Room/Bed: W3-328/W3-328 B Discharge Recommendation: Correction Facility Assessment Pt was alert and oriented [...] Extremities Patient will complete upper body dressing RI. (Not Addressed) Start: 04/24/25 Expected End: 05/22/25 [...] original note were not included. PHYSICAL THERAPY [facility] Treatment Note Name/MRN: Maday Alfaro ([id number]) Date of : 1940 Age: 84 y.o. Room/Bed: W3-328/W3-328 B Discharge Recommendation: Correction Facility Other: owns walkerX2 Assessment Continues with [...] hip ABD/ADD. Other exercises Other exercises?: (I.S. [id number]) Plan Continue acute PT per plan of [...] Continue aspirin Dilantin sertraline PT OT recommending fpc facility, April 29 Extended Emergency Contact Information Primary Emergency Contact: Jono Fragoso Mobile Relation: Son Secondary Emergency Contact: Madelin Huang Relation: Sister Chaz DO Karol Division of Hospitalist Medicine [facility] [1] Past Medical History: Diagnosis Date Hypertension [...] original note were not included. OCCUPATIONAL THERAPY [facility] Treatment Note Name/MRN: Maday Alfaro ([id number]) Date of : 1940 Age: 84 y.o. Room[facility]Bed: [facility] B Discharge Recommendation: Correction Facility Assessment Pt was alert and oriented [...] Extremities Patient will complete upper body dressing RI. (Initiated) Start: 04/24/25 Expected End: 05/22/25 Dressings [...] Date: 04/21/2025 PCP: CHRISTIAN HARRISON NP Room#: [facility] B Interval History: The ICU on April [...] Continue aspirin Dilantin sertraline PT OT recommending fpc facility, April 29 Extended Emergency Contact Information [...] original note were not included. PHYSICAL THERAPY [facility] Treatment Note Name/MRN: Maday Alfaro ([id number]) Date of : 1940 Age: 84 y.o. Room[facility]Bed: [facility] B Discharge Recommendation: Correction Facility Other: owns walkerX2 Assessment BP supine [...] Timed Code Treatment Minutes: (fa-tp) Mary Pollard BEAM PRESS OPERATOR Cosigned by Seema Holcomb PT at 04/28/2025 9:57 AM EDT [facility] Geriatric Medicine Inpatient Consult Service Admission [...] TSH 1.44 04/24/2025 No results found for: [id number] Lab Results Component Value Date VITD25 7 [...] original note were not included. PHYSICAL THERAPY [facility] Name/MRN: Maday Alfaro ([id number]) Date: 04/27/2025 Treatment is being deferred at present because she just completed therapy with OT and needs a rest . Keya Velasquez, BEAM PRESS OPERATOR Cosigned by Lexus Wadsworth, PT at 04/27/2025 2:51 PM EDT Images from the original note were not included. OCCUPATIONAL THERAPY [facility] Treatment Note Name/MRN: Maday Alfaro ([id number]) Date of : 1940 Age: 84 y.o. Room[facility]Bed: 3328/3[facility] B Discharge Recommendation: Correction Facility Assessment Pt in bed upon arrival, [...] Extremities Patient will complete upper body dressing RI. (Not Addressed) Start: 04/24/25 Expected End: 05/22/25 [...] Wade MD Division of Hospitalist Medicine [employer] This note may have been dictated using HomeStars Practice Edition 2.6 and/or [employer] Mobile application. The document was proofread; however, unrecognized voice recognition anatomic pathology assistant errors may be present. [1] Past Medical [...] Wade MD Division of Hospitalist Medicine [facility] This note may have been dictated using Dragon Medical Practice Edition 2.6 and/or Cavium application. The document was proofread; however, unrecognized voice recognition anatomic pathology assistant errors may be present. [1] Past Medical [...] convert to PO if able) None Anticipated [place] Medications (ICU initiated) or Dose Changes and Indication No Permanently Discontinued Home Medications and Reason for medication contraindication No Hicks Catheter (please remove if able) No Central Line (please remove if able) No Transfer Discussed with: Dr. Daniel Garnett If additional questions for ICU team within 24 hours of ICU transfer, page demolition crane operator resident for clarifications. Jono Fernandez MD General Surgery Resident 04/25/25 1:53 PM Images from the original note were not included. PHYSICAL THERAPY [facility] Treatment Note Name/MRN: Maday Alfaro ([id number]) Date of : 1940 Age: 84 y.o. Room/Bed: T2-216/T2-216 A Discharge Recommendation: Correction Facility Other: tbd Assessment Pt was able [...] improved stability. Pt then worked on 5 awe-xn-nceqf transfers during this visit, with 2 of [...] Mobility Raw Score (No Stairs) : 10 [facility] Goals Patient Stated Goal: Pt would like [...] 04/25/2025 3:07 PM EDT I am going [facility] Cardiology /Electrophysiology Progress Note HPI / Interval History: Maday Alfaro is a 84 y.o. female w/ PMH of HTN, hyperlipidemia and seizure disorder (on dilantin). She presented to [facility] 04/21 with a left femoral head [...] primary service arrange f/u with patient's outpatient piece presser 1-2 wks. [] Recommended; unable to arrange at this time, will arrange post-discharge [x] Arranged as follows: Krupa Cid APRN 05/13/2025 at 10 AM If there are any questions/concerns, please contact the covering provider. If no answer by Secure Chat, please call the cardiology office to obtain appropriate covering BROADCAST MAINTENANCE ENGINEER/physician. Medications: Scheduled Meds[1] Infusion Medications: Continuous Meds[2] [...] 04/21/2025 [facility] Name: [facility] 1940 [id number] Exam Date/Time: 04/21/2025 15:16 Procedure: XR FEMUR [...] mg, 1,000 mg, Oral, TID, Jayla Bledsoe, HOISTMAN - PEELED POTATO INSPECTOR aspirin chewable tablet 81 mg, 81 mg, Oral, Daily, Jono Fernandez MD, 81 mg at 04/24/25920 enoxaparin (Lovenox) syringe 30 mg, 30 mg, SubCUTAneous, q12h, Jono Frenandez MD, 30 mg at 04/24/252237 melatonin tablet [...] intertrochanteric fracture of hip, left, initial encounter ([facility]) Cosigned by Regina Sequeira MD at 04/25/2025 [...] (HIGH) Personally Reviewed/Independently interpreted patient's: [x]Epic notes: [x]Sales Officer notes, []Nursing notes, []Case management/SW []Radiology studies: [...] This note may have been dictated using BioElectronics Medical Practice Edition 2.6 and/or Cuídate Voice Recognition Feature. The document was proofread; however, unrecognized voice recognition anatomic pathology assistant errors may be present. [1] Patient Active Problem List Diagnosis Chest pain Dilation of renal pelvis Closed displaced intertrochanteric fracture of left femur ([facility]) Closed intertrochanteric fracture of hip, left, initial encounter ([facility]) [2] acetaminophen, 1,000 mg, Oral, TID aspirin, [...] original note were not included. PHYSICAL THERAPY [facility] Treatment Note Name/MRN: Maday Alfaro ([id number]) Date of : 1940 Age: 84 y.o. Room/Bed: T2-216/T2216 A Discharge Recommendation: Correction Facility Other: tbd Assessment Pt is demonstrating [...] Muro PT at 04/24/2025 3:28 PM EDT [facility] Geriatric Medicine Inpatient Consult Service Admission [...] 371 ms QTC Interval 489 ms P Hagaman 0 degrees QRS Hagaman -69 degrees T Wave Hagaman 54 degrees [place] Interval 0 ms CBC Collection Time: 04/23/25 [...] found for: TSH No results found for: [id number] No results found for: VITD25 Reviewed: allergies, [...] in 0.9% sodium chloride 250 mL infusion (Dfn-Qnavuj-Ycozp) (premix), 2-50 mcg/min, IntraVENous, Continuous, Migdalia Joseph [...] 2 tablet, 2 tablet, Oral, BID, Lisa aWyne MD, 2 tablet at 04/24/25920 sertraline (Zoloft) [...] 100 mg at 04/24/25920 Spiritual Care Note [facility] Palliative Care Patient Name:Maday Alfaro Chief Complaint: Chief Complaint Patient presents with Hip Pain Hip pain post fall. Pt was down for about four hours. Pt has c/o left hip and leg pain . Shortening and rotation noted . Reason for visit: Sacrament Services Provided To:patient Background and visit note: Patient is Yazidism and received the Anointing of the Sick and prayer by FR Hodges, today Is there spiritual distress? YES Julius Castillo 04/24/25 Images from the original note were not included. OCCUPATIONAL THERAPY [facility] Initial Evaluation Name/MRN: Maday Alfaro ([id number]) Evaluation Date: 04/24/2025 Date of : 1940 Admission Date: 04/21/2025 9:46 AM Age: 84 y.o. 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 Start: 04/24/25 Expected End: 05/22/25 Dressings Lower [...] of Care supervision is transferred to a [facility] Therapy Services Occupational Therapist. Goals and/or treatment [...] 04/21/2025 Patient Name: [facility]ADAY ALFARO : 1940 [id number] Exam Date/Time: 04/21/2025 15:16 Procedure: XR FEMUR [...] view Result Date: 04/21/2025 Patient Name: MADAY ALFRAO : 1940 Exam Date/Time: 04/21/2025 11:41 Procedure: [...] q12h, Jono Fernandez MD, 30 mg at 04/23/252226 melatonin tablet 5 mg, 5 mg, Oral, Nightly, Lisa Wayne MD, 5 mg at 04/23/252007 mupirocin (Bactroban) 2 % ointment, , Nasal, BID, Lisa Wayne MD, Given at 04/23/252007 naloxone (Narcan) injection 0.4 mg, 0.4 mg, IntraVENous, q5 min PRN, Miller Lee DO norepinephrine (Levophed) 4 mg in 0.9% sodium chloride 250 mL infusion (Vws-Outhhr-Awajw) (premix), 2-50 mcg/min, IntraVENous, Continuous, Migdalia Joseph [...] tablet 200 mg, 200 mg, Oral, Daily, Yeiym Glasgow MD, 200 mg at 04/23/25 0948 sodium chloride 0.9 % infusion, 250 mL/hr, IntraVENous, PRN, Lisa Wayne MD sodium chloride 0.9 % infusion, 250 mL/hr, IntraVENous, PRN, Jono Fernandez MD temazepam (Restoril) capsule 15 mg, 15 mg, Oral, Nightly PRN, Yeimy Glasgow MD, 15 mg at 04/22/252053 thiamine (Vitamin B1) injection 100 mg, 100 mg, IntraVENous, Daily, iMgdalia Joseph MD, 100 mg at 04/23/25 09 [2] Patient Active Problem List Diagnosis Chest pain Dilation of renal pelvis Closed displaced intertrochanteric fracture of left femur (HCC) Closed intertrochanteric fracture of hip, left, initial encounter ([facility]) Cosigned by Regina Sequeira MD at 04/24/2025 [...] (HIGH) Personally Reviewed/Independently interpreted patient's: [x]Epic notes: []Sales Officer notes, []Nursing notes, []Case management/SW []Radiology studies: [...] This note may have been dictated using [employer] Medical Practice Edition 2.6 and/or Cuídate Voice Recognition Feature. The document was proofread; however, unrecognized voice recognition anatomic pathology assistant errors may be present. [1] Patient Active Problem List Diagnosis Chest pain Dilation of renal pelvis Closed displaced intertrochanteric fracture of left femur (HCC) Closed intertrochanteric fracture of hip, left, initial encounter ([facility]) [2] acetaminophen, 1,000 mg, Oral, TID aspirin, [...] original note were not included. PHYSICAL THERAPY [facility] Treatment Note Name/MRN: Maday Alfaro ([id number]) Date of : 1940 Age: 84 y.o. Room/Bed: T2-216/T2-216 A Discharge Recommendation: [facility] Facility Other: tbd Assessment Pt presents with [...] in 0.9% sodium chloride 250 mL infusion (Drr-Llvqtg-Gghkk) (premix), 2-50 mcg/min, IntraVENous, Continuous, Stella Sage [...] intertrochanteric fracture of hip, left, initial encounter ([facility]) Cosigned by Regina Sequeira MD at 04/24/2025 [...] MD Division of Trauma Department of Surgery [facility] ~~~~~~~~~~~~~~~~~~~~~~~~~~~~~~~~~ ~~~~~~~~~~~~~~~~~~~~~~~~~~~~~~~~~ ~~~~~ This note may have been dictated using [employer] Practice Edition 2.6 and/or Cuídate Voice Recognition Feature. The document was proofread; however, unrecognized voice recognition anatomic pathology assistant errors may be present. 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 Planning discharge to [facility]. Estimated Daily Nutrient Needs: Energy Requirements Based On: Kcal/kg Weight Used for Energy Requirements: [place] Weight for Energy Calculation (kg): 59 kg Total Energy Requirements (kcals/day): 8736-8707 Weight Used for Protein Requirements: [place] Weight in Kg Used for Protein Requirements: [...] lb) (11/21) % Weight Change (Calculated): -6.8 [place] Body Weight (lbs) (Calculated): 130 lbs [place] Body Weight (Kg) (Calculated): 59 kg % [place] Body Weight (Calculated): 104.6 % BMI (kg/m2) [...] to determine Elizabeth Green RD, LD Contact: [phone] Images from the original note were not included. OCCUPATIONAL THERAPY [facility] Name/MRN: Maday Alfaro ([id number]) Date: 04/22/2025 OT eval and treat order received. Patient chart reviewed. Patient declining participation due to being tired and having a lot of visitors this PM. Will evaluate as schedule allows. Katia Shafer OT Spiritual Care Note [facility] Palliative Care Patient Name:Maday Alfaro Chief Complaint: Chief Complaint Patient presents with Hip Pain Hip pain post fall. Pt was down for about four hours. Pt has c/o left hip and leg pain . Shortening and rotation noted . Reason for visit: [facility] Provided To:patient Background and visit note: Patient is Yazidism and received the Anointing of the Sick by FR Father Hodges today Is there spiritual distress? YES Julius Castillo 04/22/25 Images from the original note were not included. PHYSICAL THERAPY [facility] Initial Evaluation Name/MRN: Maday Alfaro ([id number]) Evaluation Date: 04/22/2025 Date of : 1940 Admission Date: 04/21/2025 9:46 AM Age: 84 y.o. Room/Bed: T2-216/T2-216 A Discharge Recommendation: [facility] Facility Other: tbd Assessment IMPRESSION: 84 y.o. 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 Goals and/or treatment [...] 04/21/2025 [facility] 1940 [id number] Exam Date/Time: 04/21/2025 11:41 Procedure: XR CHEST [...] in 0.9% sodium chloride 250 mL infusion (Oon-Bletsy-Hvbpn) (premix), 2-50 mcg/min, IntraVENous, Continuous, Migdalia Joseph [...] intertrochanteric fracture of hip, left, initial encounter ([facility]) Cosigned by Regina Sequeira MD at 04/23/2025 [...] MD Division of Trauma Department of Surgery [facility] ~~~~~~~~~~~~~~~~~~~~~~~~~~~~~~~~~ ~~~~~~~~~~~~~~~~~~~~~~~~~~~~~~~~~ ~~~~~ This note may have been dictated using [employer] Medical Practice Edition 2.6 and/or Cuídate Voice Recognition Feature. The document was proofread; however, unrecognized voice recognition anatomic pathology assistant errors may be present. [1] Patient Active Problem List Diagnosis Chest pain Dilation of renal pelvis Closed displaced intertrochanteric fracture of left femur (HCC) Closed intertrochanteric fracture of hip, left, initial encounter ([facility]) [2] acetaminophen, 1,000 mg, Oral, q8h melatonin, [...] Maday Alfaro Date of : 1940 Acct: [id number] PCP: CHRISTIAN HARRISON NP Date of Admission: [...] tegaderms. 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 Handout given with contact information for future reference. [facility] 04-29-2025 Progress note Formatting of t his note might be different from the original. Discharge med list transmitted to [facility] per [facility] request. 7000 was entered into [facility] for the [facility]. [facility] 04-29-2025 Progress note Formatting of t his note might be different from the original. Transport requested in Roundtrip as Will Call for [facility] per [facility] request. [facility] 04-29-2025 Progress note Formatting of t his note might be different from the original. [facility] is [facility] , [facility] tasked to submit for humana auth and to do 7000. Transport requested in will call . [facility] 04-29-2025 Note Referral placed to [facility] per [facility] request. Updated notes sent to [facility]. [facility] 04-29-2025 Progress note Formatting of t his note might be different from the original. Referral placed to [facility] per [facility] request. Updated notes sent to [facility]. [facility] 04-29-2025 Progress note Formatting of t his note might be different from the original. Family called back [facility] [address] [facility] [address] to send clinicals and med rec Will submit auth today if accepted Adore to be done And 7000 [facility] 04-29-2025 Nurse Note Wound Care consulted [...] labia intact. Prevention Measures in place, including: [place] sheet with pillows/wedges, Foam heel protectors (applied), Heels elevated off bed on pillows, Sacral foam (changed), Zinc/Moisture Barrier ointment (applied), Waffle chair cushion (obtained for pt). Skin Care precaution order set in place. Dietitian consult in place. PT/OT consult in place. D/W nursing staff. Will continue to follow pt. Please Vocera for any questions or concerns. Xiomara Acharya RN, BSN [facility] 04-29-2025 Nurse Note Wound Care consulted [...] labia intact. Prevention Measures in place, including: [place] sheet with pillows/wedges, Foam heel protectors (applied), [...] Acharya RN, BSN documented in this encounter [facility] 04-29-2025 Progress note Formatting of t his note might be different from the original. Care Management Progress Note Short Medical why still here: discharged however NO FOC . Family has the list aware of the referrals , therapy notes done- adore signed, need choice and then can submit today for auth - Planned Discharge Disposition: [facility] Facility Barriers/Today we still Wait: Facility pre-cert, Patient/caregiver facility choice (family HAS NOT GIVEN FOC , cannot submit auth until have it) Length of Stay (Days): 8 GMLOS: 4.4 [facility] 04-28-2025 Progress note Formatting of t his note might be different from the original. Referral placed to the following SNF via [facility] per [facility] request: [facility] Await review and response regarding ability to accept. TCC notified. [facility] 04-28-2025 Progress note Formatting of t his note might be different from the original. Care Management Progress Note Short Medical why still here: ready for discharge , pain controlled Planned Discharge Disposition: [facility] Facility referrals sent- list at bedside therapy notes done- wait on response adore and auth - NO FOC Will call ed bruce per request of the patient [phone]. Updated and will give FOC Barriers/Today we still Wait: Attending completion of discharge workflow, Patient/caregiver facility choice, Facility pre-cert Length of Stay (Days): 7 GMLOS: 4.4 [facility] 04-26-2025 Progress note Formatting of t his note might be different from the original. Care Management Progress Note Short Medical why still here: Awaiting Placement. Planned Discharge Disposition: Inpatient Rehab Facility ([facility]) Messaged [facility] liaison regarding DC. Per [facility] liaison p2p is pending and scheduled to be completed on Monday. Requested PT/OT updates Monday/ Monday for facility approval. Barriers/Today we still Wait: P2P is pending and scheduled to be completed on Monday. Length of Stay (Days): 5 GMLOS: 4.4 [facility] 04-25-2025 Progress note Formatting of t his note might be different from the original. Care Management Progress Note Short Medical why still here: Admitted for hip fx s/p ORIR 04/21/2025. Remains for electrolyte replacement, therapy evals ongoing. Ortho, geriatrics, and cardiology following/consults. Planned Discharge Disposition: Inpatient Rehab Facility ([facility]) Spoke with patient and daughter Ed [phone] regarding discharge planning. Re-introduced myself and role. Discussed rehab hospital vs SNF. Patient and daughter Ed agreeable to [facility]. CM notified [facility] liaison to start facility precert today. CM tasked weekend team to follow. Transport needed at discharge. Addendum: Peer to peer offered with intent to deny. CM secure messaged SICU resident and hospitalist planning to take over care per transfer note, included P2P info to be scheduled by Monday, 04/28 2pm. P2P phone # [phone], Ref # [id number]. Barriers/Today we still Wait: Administering IV medications, Clinical stability, Sales Officer recommendations (comment), Facility pre-cert, Patient/caregiver facility choice electrolyte replacement, therapy evals ongoing. Ortho, geriatrics, and cardiology following/consults. Length of Stay (Days): 4 GMLOS: 4.4 Case management will continue to follow for discharge planning. [facility] 04-25-2025 History of Presen t illness Narrative 30-day outpatient event monitor ordered. documented in this encounter [facility] 04-24-2025 Consult note Associated Order (s): IP CONSULT TO CARDIOLOGY [facility] [place] [facility] Cardiology /Electrophysiology Consult Note Reason for Consult/Chief Complaint: Post-operative afib placed on amiodarone gtt Referring provider: Sebas Oh Established piece presser: None History of Present Illness: Maday Alfaro is a 84 y.o. female w/ PMH of HTN and seizure disorder (on dilantin). She presented to [facility] 04/21 with a left femoral head [...] plan. In summary, Maday Alfaro presented to [facility] 04/21 with a left femoral head fracture s/p L CMN (04/21/25, [place]). Cardiology consulted for AF. Likely precipitated by recent surgery, hypovolemia, blood loss (admission Hgb 14), and norepinephrine gtt. Currently in NSR. Monitor off amiodarone. Rehydrate. Follow-up on telemetry and patient status in the AM. Plan for outpatient event monitor. Tessa Billingsley MD Department of Cardiovascular Disease [facility] [place] 10:19 PM 04/24/25 [facility] Work Phone: 04-24-2025 Consult note Associated Order (s): IP CONSULT TO CARDIOLOGY [facility] Cardiology /Electrophysiology Consult Note Reason for Consult/Chief Complaint: Post-operative afib placed on amiodarone gtt Referring provider: Sebas Oh Established piece presser: None History of Present Illness: Maday Alfaro is a 84 y.o. female w/ PMH of HTN and seizure disorder (on dilantin). She presented to [facility] 04/21 with a left femoral head [...] plan. In summary, Maday Alfaro presented to [facility] 04/21 with a left femoral head fracture s/p L CMN (04/21/25, [place]). Cardiology consulted for AF. Likely precipitated by recent surgery, hypovolemia, blood loss (admission Hgb 14), and norepinephrine gtt. Currently in NSR. Monitor off amiodarone. Rehydrate. Follow-up on telemetry and patient status in the AM. Plan for outpatient event monitor. Tessa Billingsley MD Department of Cardiovascular Disease [facility] [place] 10:19 PM 04/24/25 Associated Order(s): IP CONSULT TO GERIATRICS [facility] Geriatric Medicine Inpatient Consult Service Admission Date: [...] intertrochanteric fracture of hip, left, initial encounter ([facility]) Left hip fracture s/p ORIF on 04/21 [...] use. Advance Care Planning Healthcare Power of Public Welfare Worker: No Financial Power of Public Welfare Worker: No Living Will:No Code Status: No Order [...] AM Result Value Ref Range PRODUCT CODE R5000X50 Unit Number [id number] Unit ABO O Unit RH POS Crossmatch interpretation COMP Dispense Status Crossmatch Blood Expiration Date [id number] Product Blood Type 5100 Unit Volume 300 [...] PM Result Value Ref Range PRODUCT CODE J8158N56 Unit Number [id number] Unit ABO O Unit RH POS Crossmatch interpretation COMP Dispense Status Transfused Blood Expiration Date [id number] Product Blood Type 5100 Unit Volume 300 mL PRODUCT CODE [id number] Unit Number [id number] Unit ABO O Unit RH POS Crossmatch interpretation COMP Dispense Status Transfused Blood Expiration Date [id number] Product Blood Type 5100 Unit Volume 300 [...] in 0.9% sodium chloride 250 mL infusion (Xcv-Bpfuyj-Irnxl) (premix), 2-50 mcg/min, IntraVENous, Continuous, Stlela Sage MD, Last Rate: 7.5 mL/hr at [...] Maday Alfaro Date of : 1940 Acct: [id number] PCP: CHRISTIAN HARRISON NP Date of Admission: [...] clearance in case of OR, 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 Care Management Progress Note Short Medical why still here: Admitted for hip fx s/p ORIR 04/21/2025. Remains for pressort gtt - on/off, amio gtt, therapy evals ongoing. Ortho, Geriatrics, and cardiology following/consults. Planned Discharge Disposition: Inpatient Rehab Facility ([facility] vs SNF in [place]) FOC remains pending with patient. Now on Amio gtt. Cardiology consult placed. Will follow regarding discharge plan and FOC appropriateness. CM updated [facility] liaison via secure message. Barriers/Today we still Wait: Administering IV medications, Clinical stability, Sales Officer recommendations (comment), Symptomatic control pressort gtt - on/off, amio gtt, therapy evals ongoing. Ortho, Geriatrics, and cardiology following/consults. Length of Stay (Days): 3 GMLOS: 4.4 Case management will continue to follow for discharge planning. [facility] 04-23-2025 Progress note Formatting of t his note might be different from the original. Care Management Progress Note Short Medical why still here: Admitted for hip fx s/p ORIR 04/21/2025. Remains for pressort gtt, therapy evals ongoing, post discharge plan pending. Ortho following/consults. Planned Discharge Disposition: Inpatient Rehab Facility ([facility] vs SNF in [place]) Spoke with patient at bedside. Re-introduced myself and role. Discussed discharge planning. Patient agreeable to [facility] or SNF in [place] but has not decided on FOC. Patient requests patient to return tomorrow for choice. CM updated [facility] liaison via secure message. Barriers/Today we still Wait: Administering IV medications, Clinical stability, Sales Officer recommendations (comment), Patient/caregiver facility choice pressor gtt, therapy evals ongoing. Ortho following/consults. Length of Stay (Days): 2 GMLOS: No GMLOS Documented Case management will continue to follow for discharge planning. [facility] 04-23-2025 Consult note Associated Order (s): IP CONSULT TO [facility]ERIATRICS [facility] Admission [...] intertrochanteric fracture of hip, left, initial encounter ([facility]) Left hip fracture s/p ORIF on 04/21 [...] use. Advance Care Planning Healthcare Power of Public Welfare Worker: No Financial Power of Public Welfare Worker: No Living Will:No Code Status: No Order [...] AM Result Value Ref Range PRODUCT CODE Z6476Z98 Unit Number [id number] Unit ABO O Unit RH POS Crossmatch interpretation COMP Dispense Status Crossmatch Blood Expiration Date [id number] Product Blood Type 5100 Unit Volume 300 [...] PM Result Value Ref Range PRODUCT CODE J0650C94 Unit Number [id number] Unit ABO O Unit RH POS Crossmatch interpretation COMP Dispense Status Transfused Blood Expiration Date [id number] Product Blood Type 5100 Unit Volume 300 mL PRODUCT CODE [id number] Unit Number [id number] Unit ABO O Unit RH POS Crossmatch interpretation COMP Dispense Status Transfused Blood Expiration Date [id number] Product Blood Type 5100 Unit Volume 300 [...] in 0.9% sodium chloride 250 mL infusion (Eas-Hlakft-Cyime) (premix), 2-50 mcg/min, IntraVENous, Continuous, Stella Sage [...] Heart attack Father Coronary artery disease Father [employer] Work Phone: 04-22-2025 Note RH Referral placed t [facility] via [facility] per TCC request. Awaiting review and response regarding ability to accept. TCC notified. [facility] 04-22-2025 Progress note Formatting of t his note might be different from the original. RH Referral placed to [facility] via [facility] per [facility] request. Awaiting review and response regarding ability to accept. [facility] notified. [facility] 04-22-2025 Progress note Formatting of t [...] reviewing chart and following peripherally. CM tasked LABORATORY TECHNICAL SPECIALIST to send referral via [facility]. CM will follow clinical progress and continue to work on discharge planning. Planned Discharge Disposition: Inpatient Rehab Facility (Rehab Hospital vs SNF) Barriers/Today we still Wait: Administering IV medications, Clinical stability, Sales Officer recommendations (comment) IVABX, pressort gtt, PRBCs, therapy evals pending. Ortho following/consults. Length of Stay (Days): 1 GMLOS: No GMLOS Documented Case management will continue to follow for discharge planning. [facility] 04-21-2025 Nurse Note notified via secure chat of critical lab value of lactic acid of 4.3, no new order received. [facility] 04-21-2025 Nurse Note Pt granddaughter. Ed, updated at this time. Pt family given pt new room number, on the way to T2 waiting room. [facility] 04-21-[address] Ha at pt bedside in PACU. [facility] 04-21-2025 Nurse Note ICU residents at pt bedside in PACU. [facility] 04-21-[address] Lee at pt bedside [facility] 04-21-2025 Nurse Note Pt granddaughter, Ed, updated at this time. [facility] 04-21-2025 Nurse Note Ortho.residents at pt bedside to assess pt. Pt w/ hematoma to surgical site L outer thigh, assessed, wrapped w/ MARYAM wrap, saline bag. Per , leave MARYAM wrap on overnight. [facility] 04-21-[address] Coto at pt bedside in PACU. [facility] 04-21-2025 Note [facility] 04-21-2025 Note [facility] 04-21-2025 Procedure note [facility] OR [address] [facility] [address] Dept: [phone] Loc: [phone] Operative Report Patient Name: Maday Alfaro Date of : 1940 Date of Surgery: 04/21/25 Pre-operative diagnosis: Left intertrochanteric femur fracture Post-operative diagnosis: Same Procedure(s): Intertan nailing of left intertrochanteric femur fracture Surgeon: Travis Meng M.D. Electronic Prepress Technician(s): Rigo Baird M.D. and Janneth Centeno M.D. [...] as well as medical complications such as RI, stroke, PE, DVT, and even . Patient [...] was impacted using the depth tower to trial judge the depth of placement. The proximal femur was prepared for the lag and worm screws with excellent compression achieved. Based on the patient's fracture pattern, the preloaded setscrew did not require locking. The distal screw was placed using perfect conf[place] coos technique. Final films were obtained and saved. [...] Travis Meng MD at 04/21/25, 3:16 PM [facility] 04-21-2025 Procedure note Date: 04/21/2025 Location: [facility] OR Name: Maday Alfaro, : 1940, Diagnosis Pre-op Diagnosis * Closed displaced intertrochanteric fracture of left femur, initial encounter ([facility]) [S72.142A] Post-op Diagnosis * Closed displaced intertrochanteric fracture of left femur, initial encounter ([facility]) [S72.142A] Procedures ORIF, FRACTURE, FEMUR, INTERTROCHANTERIC, WITH INTRAMEDULLARY IMPLANT INSERTION [id number] - [place] TX INTER/KS/SUBTRCHNTRIC FEM FX IMED IMPLTSCREW Surgeons * Travis Meng - Primary Procedure Summary Anesthesia: * No anesthesia type entered * ASA: III Estimated Blood Loss: 100 mL Drains: Urethral Catheter (Active) Implants Type Name Action Serial No. 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 [employer] Work Phone: 04-21-2025 Hospital Discharg e instructions [...] Unit/Room#: T2-216/T2-216 A Discharging Unit Phone Number: [phone] Emergency Contact: Extended Emergency Contact Information Primary [...] assistance Toileting Minimal assistance Feeding Minimal assistance Process Safety Management Engineer Minimal assistance Med Delivery no Wound Care [...] to Facility/ Agency Name: [facility] Phone: [phone] Address: [address] [place] [address] Dialysis Facility (if applicable) Name: Address: Dialysis Schedule: Phone: Fax: Production Material Handler/Journalism Internship signature: ICIAN SECTION Name: Maday Alfaro 84-year-old [...] the diagnosis listed and that she requires fpc facility for less than 30 days. PHYSICIAN SIGNATURE: documented in this encounter [facility] 04-21-2025 Emergency department Note RN at bedside to introduce self. Pt accompanied by son, daughter in law and granddaughter. Pt denies pain states when I am just laying here theres no pain. Pt educated on need for hicks catheter. Pt tolerated procedure. Pt belongings of one pair small yellow hoop earrings, brown slippers and glasses given to family in pt belonging bag. [facility] 04-21-2025 Emergency department Note RN at [...] Family History[3] SOCIAL HISTORY Social History[4] SCREENINGS [place] Coma Scale Best Eye Response: Spontaneous Best [...] Physician EKG interpretation can be found in [facility] RADIOLOGY (Per Emergency Physician): X-ray of the [...] intertrochanteric fracture of hip, left, initial encounter ([facility]) 2. Closed displaced intertrochanteric fracture of left femur, initial encounter ([facility]) DISPOSITION Admit 04/21/2025 11:46:27 AM PATIENT REFERRED [...] Past Medical History: Diagnosis Date Hypertension Seizures ([facility]) [2] Past Surgical History: Procedure Laterality Date [...] MD 04/21/25 1223 documented in this encounter [facility] 04-21-2025 Emergency department Note Report given to Idris FUENTES [facility] 04-21-2025 History and physical note Attending [...] Date - 2-3 days - Location - [facility] - Pending the following - OR [...] - DO NOT do CPR, intubation] [_] [DNR-CLINICAL COORDINATOR - Comfort care only] [_] DNR form [...] DO Division of Hospitalist Medicine Acute care [facility] [1] Past Medical History: Diagnosis Date Hypertension [...] And Vomiting Penicillin G Rash Simvastatin Rash [employer] Work Phone: 04-21-2025 Note [employer] [facility] 04-21-2025 History and physical note [...] - DO NOT do CPR, intubation] [_] [DNR-CLINICAL COORDINATOR - Comfort care only] [_] DNR form [...] Miller Lee DO Division of Hospitalist Medicine [facility] [1] Past Medical History: Diagnosis Date [...] Rash Simvastatin Rash documented in this encounter [facility] 04-21-2025 Consult note Associated Order (s): IP CONSULT TO ORTHOPAEDIC SURGERY Ortho Consult Patient: Maday Alfaro Date of : 1940 Acct: [id number] PCP: CHRISTIAN HARRISON NP Date of Admission: [...] clearance in case of OR, 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 Pt given the option to salvage clothing but stated to just cut it off to reduce pain . Pt dry cleaned placed in hospital robe and had no needs at this time . [employer] 04-21-2025 Physician Emergency department Note EMERGENCY DEPARTMENT [...] Family History[3] SOCIAL HISTORY Social History[4] SCREENINGS [place] Coma Scale Best Eye Response: Spontaneous Best [...] intertrochanteric fracture of hip, left, initial encounter ([facility]) 2. Closed displaced intertrochanteric fracture of left femur, initial encounter ([facility]) DISPOSITION Admit 04/21/2025 11:46:27 AM PATIENT REFERRED [...] Navarro MD at 04/21/2025 3:19 PM EDT [facility] 04-21-2025 Physician Emergency department Note Emergency [...] provider for clarification.) Elliott Navarro MD Acute [facility] Elliott Navarro MD 04/21/25 1223 [facility] Work Phone: 10-17-2024 History of Presen t illness Narrative Images from the original note were not included. [facility] AT [address] [address] Discharge Notification Patient Name: Maday [...] Esparza PT, DPT documented in this encounter [facility] 09-11-2024 History of Presen t illness Narrative Images from the original note were not included. [facility] AT [address] [facility] [address] Dept: [phone] Dept PHYSICAL THERAPY TREATMENT Patient Name: Maday [...] does get a little sore when playing [employer] on her Ipad but it goes away. [...] 11/25/24 PT Misc Misc: Pt will improve derrick boat runner strength to within 5# of each other [...] Esparza PT, DPT documented in this encounter [facility] 08-29-2024 Note 2v right shoulder re demonstrate the right proximal humerus fracture now with significant varus. There is appropriate progressive callus formation. [facility] 08-29-2024 History of Presen t illness [...] PA-C Orthopedic Surgery documented in this encounter [facility] 08-27-2024 History of Presen t illness Narrative Images from the original note were not included. 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 Pain: Current: 2/10 Best: 0/10 Worst: [...] anterior clavicular region and biceps tendon area Reaming Machine Operator strength: L: 25# R: 15# Assessment Physical [...] decreased with pain in all test positions. Reaming Machine Operator strength continues to be decreased, but R derrick boat runner strength improved to 15# this session. Overall [...] ROM, improve strength of BUE and B derrick boat runner strength, to improve posture, and to improve [...] 11/25/24 PT Misc Misc: Pt will improve derrick boat runner strength to within 5# of each other [...] Esparza PT, DPT documented in this encounter [facility] [employer] 08-20-2024 History of Presen t illness Narrative Images from the original note were not included. [facility] AT JAN[facility]H [facility] [address] [place] [address] [place] [address] Dept: [phone] Dept PHYSICAL THERAPY TREATMENT Patient Name: Maday [...] 1 x 10 Therapeutic Exercise Activity 3: derrick boat runner with UE supported Activity 3 Comment: yellow digi derrick boat runner 1 x 10 Therapeutic Exercise Activity 4: R wrist flexion/extension UE supported Activity 4 Comment: 1# 1 x 10 ea Soft Tissue Mobilization Location: R upper trap, levator, biceps Body Position: Sitting Comments: [facility] Home Exercise Program: Deferred Assessment Skilled physical [...] 10/22/24 PT Misc Misc: Pt will improve derrick boat runner strength to within 5# of each other [...] 1:32 PM EST documented in this encounter [facility] 08-09-2024 History of Presen t illness Narrative Images from the original note were not included. [facility] AT [address] [address] Dept: [phone] Dept PHYSICAL THERAPY TREATMENT Patient Name: Maday [...] 1 x 10 Therapeutic Exercise Activity 3: derrick boat runner with UE supported Activity 3 Comment: yellow digi derrick boat runner 1 x 10 Soft Tissue Mobilization Location: [...] 10/22/24 PT Misc Misc: Pt will improve derrick boat runner strength to within 5# of each other [...] 3:00 PM EST documented in this encounter [facility] 08-02-2024 History of Presen t illness Narrative Images from the original note were not included. [facility] [place] [address] [facility] [address] Dept: [phone] Dept PHYSICAL THERAPY TREATMENT Patient Name: Maday [...] 10/22/24 PT Misc Misc: Pt will improve derrick boat runner strength to within 5# of each other indicate improvement in functional activity tolerance. (Not Addressed) Start: 07/24/24 Expected End: 10/22/24 Plan Plan for next session: continue PROM of shoulder, initiate increased derrick boat runner strengthening, (continue per phase 1 protocol); ask about bruising on R arm Time Entry Total Treatment Time Start Time: 1130 Stop Time: 1159 Time Calculation (min): 29 min PT Therapeutic Procedures Time Entry Therapeutic Exercise Time Entry: 8 Therapeutic Activity Time Entry: 15 Manual Therapy Time Entry: 6 Jennifer Esparza PT, DPT documented in this encounter [facility] 07-18-2024 History of Presen t illness Narrative Images from the original note were not included. Assessment: Maday Alfaro is 84 y.o. female who is s/p [...] at 10:45 AM documented in this encounter [facility] 07-15-2024 Emergency department Note EMERGENCY DEPARTMENT [...] for the entirety of this encounter. HPI Madya Alfaro is a 84 y.o. who presents [...] Discharge 07/15/2024 04:17:13 PM PATIENT REFERRED TO: [facility] Orthopedics and Sports Medicine [address] [address] DISCHARGE MEDICATIONS: Discharge Medication List [...] move it much. documented in this encounter [facility] 07-15-2024 Emergency department Triage note Patient reports a fall last night and states she tried to break her fall with her right arm. Patient reports right arm pain, unable to move it much. [facility] 07-15-2024 Physician Emergency department Note EMERGENCY [...] Physician EKG interpretation can be found in [facility] RADIOLOGY (Per Emergency Physician): Interpretation per the [...] Discharge 07/15/2024 04:17:13 PM PATIENT REFERRED TO: [facility] Orthopedics and Sports Medicine [address] [address] DISCHARGE MEDICATIONS: Discharge Medication List [...] Medicine Provider Nguyễn Caal DO 07/15/24 181 [facility] 11-22-2023 History of Presen t illness Narrative Images from the original note were not included. [facility] ORTHOPEDICS AND SPORTS MEDICINE [address] [place] [address] Dept: [phone] Dept Department of Orthopedics- Podiatry Chief Complaint [...] sensation is intact bilateral as tested with Bath-Esthela monofilament. Dermatologic: Skin turgor is within normal [...] Griselda Brown DPM documented in this encounter [facility] 11-22-2023 Instructions Torrie Claros - 11/22/2023 1:00 PM EDT Central Scheduling [phone] documented in this encounter [facility] 10-11-2023 History of Presen t illness Narrative Images from the original note were not included. [facility] ORTHOPEDICS AND SPORTS MEDICINE [address] [facility] [address] Dept: [phone] Dept Department of Orthopedics- Podiatry Chief Complaint [...] her buttocks. Patient was seen in the [facility] ED the next day and had X-rays [...] sensation is intact bilateral as tested with Bath-Esthela monofilament. Dermatologic: Skin turgor is within normal [...] the results of the CT scan. Continue [id number] pain relief as needed. Maryam bandage was [...] Griselda Brown DPM documented in this encounter [facility] 10-01-2023 Emergency department Note Pt was able to walk with walking boot and walker. States she felt ok to go home with walking boot and has a walker at home.pt advised if she does not feel comfortable once she's home to return to emergency dept. Daja Guerra RN 10/01/231313 [facility] 10-01-2023 Emergency department Note Pt was able to walk with walking boot and walker. States she felt ok to go home with walking boot and has a walker at home.pt advised if she does not feel comfortable once she's home to return to emergency dept. Daja Guerra RN 10/01/236 EMERGENCY DEPARTMENT ENCOUNTER Pt Name: Maday Alfaro [...] Discharge 10/01/2023 12:52:30 PM PATIENT REFERRED TO: [facility] Orthopedics [address] [place] [address] [address] [facility] [address] Call in 1 day DISCHARGE [...] any other injury documented in this encounter [facility] 10-01-2023 Hospital Discharg e instructions DALTON [...] sent through Care Everywhere.Foot Fracture Discharge Instructions (Chinese)Walking Boot (Chinese)documented in this encounter [facility] 10-01-2023 Emergency department Triage note Pt states last night she was walking down her steps (3) and felt like her foot gave out on her and caused her to fall. Pt co right foot pain and buttock pain. Denies hitting head or any other injury [facility] 10-01-2023 Physician Emergency department Note EMERGENCY [...] Discharge 10/01/2023 12:52:30 PM PATIENT REFERRED TO: [facility] Orthopedics [address] [place] [address] [address] [facility] [address] Call in 1 day DISCHARGE [...] Medicine Provider DALTON Healy CNP 10/01/23 1256 [facility] Evaluation note Diagnosis Closed displaced fracture of metatarsal bone of right foot, unspecified metatarsal, initial encounter- Primary Fall, initial encounter documented in this encounter [facility]* Diagnosis Closed displaced fracture of metatarsal bone of right foot, unspecified metatarsal, initial encounter documented in this encounter [facility]* Diagnosis Nondisplaced fracture of second [...] metatarsal, initial encounter documented in this encounter [facility]* Diagnosis Closed displaced fracture of metatarsal bone of right foot, unspecified metatarsal, initial encounter Lisfranc's sprain, right, subsequent encounter documented in this encounter [facility]* Diagnosis Closed nondisplaced fracture of [...] routine healing, right documented in this encounter [facility]* Diagnosis Menopause- Primary Symptomatic menopausal or female climacteric states documented in this encounter [facility]* Diagnosis Menopause Symptomatic menopausal or female climacteric states documented in this encounter [facility]* Diagnosis Closed nondisplaced fracture of surgical neck of right humerus, unspecified fracture morphology, initial encounter- Primary documented in this encounter [facility]* Diagnosis Closed nondisplaced fracture of surgical neck of right humerus, unspecified fracture morphology, initial encounter [facility]* Diagnosis Closed nondisplaced fracture of surgical neck of right humerus, unspecified fracture morphology, initial encounter- Primary [facility]* Diagnosis Closed nondisplaced fracture of surgical neck of right humerus, unspecified fracture morphology, initial encounter- Primary [facility]* Diagnosis Closed nondisplaced fracture of surgical neck of right humerus, unspecified fracture morphology, initial encounter- Primary documented in this encounter [facility] note* Diagnosis Closed nondisplaced fracture of surgical neck of right humerus, unspecified fracture morphology, initial encounter- Primary documented in this encounter [facility] note* Diagnosis Closed fracture of proximal end of right humerus with routine healing, unspecified fracture morphology, subsequent encounter- Primary [facility]* Diagnosis Closed nondisplaced fracture of surgical neck of right humerus, unspecified fracture morphology, initial encounter- Primary documented in this encounter [facility] note* Diagnosis Paroxysmal atrial fibrillation (HCC)- Primary Atrial fibrillation documented in this encounter [facility] note* Diagnosis Closed intertrochanteric fracture of hip, left, initial encounter ([facility])- Primary Closed displaced intertrochanteric fracture of left femur, initial encounter (HCC) Closed intertrochanteric fracture of hip, left, initial encounter ([facility]) Osteoporosis, unspecified osteoporosis type, unspecified pathological fracture presence [facility]* Diagnosis Closed displaced intertrochanteric fracture of left femur with routine healing, subsequent encounter- Primary documented in this encounter [facility] note* Diagnosis Paroxysmal atrial fibrillation (HCC) Atrial fibrillation documented in this encounter [facility] note* Diagnosis Stroke-like symptoms- Primary Stroke-like symptoms Altered mental status, unspecified altered mental status type Declining functional status Edema of left forearm Closed nondisplaced fracture of surgical neck of right humerus, unspecified fracture morphology, initial encounter Severe malnutrition (CMS/HCC) (HCC) Nutritional marasmus [facility] Consultation (Routine) - Pending Review Specialty Diagnoses / Procedures Referred By Ben t Referred To Contact Orthopedic Surgery Diagnoses Closed displaced fracture of metatarsal bone of right foot, unspecified metatarsal, initial encounter Jaguar Christine APRN - CNP [address] [place] [address] [facility] [address] [facility] [address] [place] [address] Referral ID Status Reason Start Date Expiration Date Visits Requested Visits Authorized [id number] Pending Review Specialty Services Required 10/01/2023 09/30/2024 1 1 [facility] for visit Narrative* Therapy (Routine) - Authorized Specialty Diagnoses / Procedures Referred By Ben [place] Referred To Contact Physical Therapy Diagnoses Unspecified nondisplaced fracture of surgical neck of right humerus, subsequent encounter for fracture with routine healing Procedures [place] OFFICE/OUTPATIENT [facility] 60 MINUTES Brendon Sommers MD [address] [facility] [address] [place] [address] Phone: tel: fax: [facility] Therapy at [facility] [address] [place] [address] [place] [address] Phone: tel: fax: Referral ID Status Reason Start Date Expiration Date Visits Requested Visits Authorized [id number] Authorized Eval and Treat 07/18/2024 17 17 [facility] for visit Narrative* Cardiology (Routine) - Closed Specialty Diagnoses / Procedures Referred By Ben [place] Referred To Contact Cardiology Diagnoses Paroxysmal atrial fibrillation (HCC) Procedures Cardiac event monitor (30 days) [place] XTRNL PT ACTIVATED ECG RECORD MONITOR 30 DAYS [place] XTRNL PT ACTIVTD ECG DWNLD W/R&I </30 DAYS Krupa Cid APRN - CNP [address] [place] [address] Phone: tel: fax: Referral ID Status Reason Start Date Expiration Date Visits Re quested Visits Authorized [id number] Closed 04/25/2025 04/20/2026 1 1 [facility] Health Summary Purpose Family History No Family [...] right wo IV contrast Griselda Brown DPM [address] [facility] [address] [place] [address] Referral ID Status Reason Start Date Expiration Date V isits Requested Visits Authorized [id number] Authorized 10/11/2023 10/10/2024 1 1 Referral ID Status Reason Start Date Expiration Date Visits Re quested Visits Authorized [id number] Closed 10/11/2023 10/10/2024 1 1 Additional Source Comments INFORMATION SOURCE (unrecogn ized section and content) DATE CREATED AUTHOR 01/05/2019 [facility] [employer] DATE CREATED AUTHOR AUTHOR'S ORGANIZ ATION 01/17/2019 [facility] [employer] DATE CREATED AUTHOR AUTHOR'S ORGANIZ ATION 2025 [facility] DATE CREATED AUTHOR AUTHOR'S ORGANIZ ATION 05/17/2025 [facility] [employer] [facility] Reason for Visit (unrecogniz ed section and [...] metatarsal, initial encounter Jaguar Christine APRN - PEELED POTATO INSPECTOR [address] [place] [address] [facility] [address] [place] [address] Referral ID Status Reason Start Date Expiration Date V isits Requested Visits Authorized [id number] Closed Specialty Services Required 10/01/2023 09/30/2024 1 1 Specialty Diagnoses / Procedures Referred By Ben [place] Referred To Contact Radiology Diagnoses Closed displaced fracture of metatarsal bone of right foot, unspecified metatarsal, initial encounter Lisfranc's sprain, right, subsequent encounter Procedures CT foot right wo IV contrast Griselda Brown, MOUSTAPHA [address] [place] [address] Referral ID Status Reason Start Date Expiration Date Visits Re quested Visits Authorized [id number] Closed 10/11/2023 10/10/2024 1 1 Reason Comments Follow-up Right foot fracture Reason Comments Arm Injury Patient reports a fa ll last night and states she tried to break her fall with her right arm. Patient reports right arm pain, unable to move it much. 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 RIGHT Specialty Diagnoses / Procedures Referred By Ben t Referred To Contact Orthopedic Surgery Diagnoses Closed nondisplaced fracture of surgical neck of right humerus, unspecified fracture morphology, initial encounter Nguyễn Caal DO [address] [place] [address] Phone: tel: fax: [facility] Orthopedics and Sports Medicine [facility] [address] [place] [address] Phone: tel: fax: Referral ID Status Reason Start Date Expiration Date Visits Requested Visits Authorized [id number] Pending Review Specialty Services Required 07/15/2024 07/15/2025 [...] intertrochanteric fracture of hip, left, initial encounter ([facility]) Procedures . Miller Lee DO [address] [place] [address] Phone: tel: fax: [facility] EMERGENC[facility] [address] [place] [address] Phone: tel: fax: Referral ID Status Reason Start Date Expiration Date Visits Re quested Visits Authorized [id number] 1 1 Reason Comments Fall Altered Mental Status Specialty Diagnoses / Procedures Referred By Ben t Referred To Contact Diagnoses Stroke-like symptoms Declining functional status Altered mental status, unspecified altered mental status type Procedures .. Nemo Bunn MD [address] [place] [address] Phone: tel: fax: [facility] Cardiac Progressive Care Unit PCU [address] [place] [address] Phone: tel: Referral ID Status Reason Start Date Expiration Date Visits Re quested Visits Authorized [id number] 1 1 Care Teams (unrecognized sec tion and content) Corporate Sales Trainer Relationship Specialty Start Date End Date Destiny Jean Baptiste PCP - General 03/09/15 Corporate Sales Trainer Relationship Specialty Start Date End Date Christian Harrison [address] [place] [address] PCP - General Nurse Practitioner 10/11/23 Corporate Sales Trainer Relationship Specialty Start Date End Date Christian Harrison [address] [place] [address] PCP - General Nurse Practitioner 10/11/23 Corporate Sales Trainer Relationship Specialty Start Date End Date Christian Harrison [address] [place] [address] PCP - General Nurse Practitioner 10/11/23 Corporate Sales Trainer Relationship Specialty Start Date End Date Christian Harrison [address] [place] [address] PCP - General Nurse Practitioner 10/11/23 Corporate Sales Trainer Relationship Specialty Start Date End Date Christian Harrison [address] [place] [address] PCP - General Nurse Practitioner 10/11/23 Corporate Sales Trainer Relationship Specialty Start Date End Date Christian Harrison [employer] [address] [place] [address] PCP - General Nurse Practitioner 10/11/23 Corporate Sales Trainer Relationship Specialty Start Date End Date Christian Harrison NP [address] [place] [address] PCP - General Nurse Practitioner 10/11/23 Corporate Sales Trainer Relationship Specialty Start Date End Date Christian Harrison [employer] [address] [place] [address] PCP - General Nurse Practitioner 10/11/23 Corporate Sales Trainer Relationship Specialty Start Date End Date Christian Harrison [employer] [address] [place] [address] PCP - General Nurse Practitioner 10/11/23 Corporate Sales Trainer Relationship Specialty Start Date End Date Christian Harrison NP [address] [place] [address] PCP - General Nurse Practitioner 10/11/23 Corporate Sales Trainer Relationship Specialty Start Date End Date Christian Harrison NP [address] [place] [address] PCP - General Nurse Practitioner 10/11/23 Corporate Sales Trainer Relationship Specialty Start Date End Date Christian Harrison NP [address] [place] [address] PCP - General Nurse Practitioner 10/11/23 Corporate Sales Trainer Relationship Specialty Start Date End Date Christian Harrison [employer] [address] [place] [address] PCP - General Nurse Practitioner 10/11/23 Corporate Sales Trainer Relationship Specialty Start Date End Date Christian Harrison NP [address] [place] [address] PCP - General Nurse Practitioner 10/11/23 Corporate Sales Trainer Relationship Specialty Start Date End Date Christian Harrison NP [address] [place] [address] PCP - General Nurse Practitioner 10/11/23 Corporate Sales Trainer Relationship Specialty Start Date End Date Christian Harrison NP [address] [place] [address] PCP - General Nurse Practitioner 10/11/23 Corporate Sales Trainer Relationship Specialty Start Date End Date Christian Harrison NP [address] [place] [id number] PCP - General Nurse Practitioner 10/11/23 Corporate Sales Trainer Relationship Specialty Start Date End Date Christian Harrison NP [address] [place] [id number] PCP - General Nurse Practitioner 10/11/23 Corporate Sales Trainer Relationship Specialty Start Date End Date Christian Harrison NP [address] [place] [id number] PCP - General Nurse Practitioner 10/11/23 Scheduled [...] Tessa Jordan RN)210 (Given - Provider: Griselda oL, ALFREDO) 0830 (Given - Provider: Tu Bazzi, [...] sedation for opioid reversal - MUST notify demolition crane operator provider immediately after first dose, may give [...] pat dry, apply ET mix and leave VICE PRESIDENT QUALITY TID and PRN 0858 (Given - Provider: [...] sedation for opioid reversal - 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 [facility]. provides no warranty or guarantee of the accuracy or completeness of information in this document.
== END ==
LOC: OLS.SANC 05:00
DX: I10 Essential (primary) hypertension (principal); Z79.899 Other long term (current) drug therapy
CPT/HCPCS: 36415; 80185

== ENCOUNTER → 2025-05-26 04:00 | Outpatient (REF) | payer MEDICARE, SELFPAY | LOC: OLS.SANC 04:00 | DX: F03.90 Unspecified dementia, unspecified severity, without behavioral disturbance, psychotic disturbance, mood disturbance, and anxiety (principal) | CPT/HCPCS: 36415; 80185 ==

== ENCOUNTER → 2025-05-27 05:00 | Outpatient (REF) | payer MEDICARE, SELFPAY ==
[2025-05-28 04:59] LABS: Hematocrit 35.3 % (37-47); Hemoglobin 11.6 g/dL (12.0-15.0); Mean Corp Hgb Conc 32.9 g/dL (32-36); Mean Corpuscular Volume 105.7 fL (81-99); Mean Platelet Vol. 9.4 fl (6.2-12.0); Platelet Count 294 K/mm3 (150-450); RBC Distribution Width CV 15.7 % (11.6-14.6); RBC Distribution Width SD 61.7 fl (35.1-43.9); Red Blood Count 3.34 M/mm3 (4.2-5.4); White Blood Count 5.0 K/mm3 (4.4-11.0)
== END ==
LOC: OLS.SANC 05:00
DX: I50.9 Heart failure, unspecified (principal); J44.9 Chronic obstructive pulmonary disease, unspecified; F03.90 Unspecified dementia, unspecified severity, without behavioral disturbance, psychotic disturbance, mood disturbance, and anxiety
CPT/HCPCS: 36415; 80185; 85027